=== PATIENT | female | born 1950 | race Caucasian/White ===

== ENCOUNTER 2021-09-11 07:43 | Inpatient (IN) ==
[2021-09-11] MEDS ORDERED: ONDANSETRON INJ 2 MG/ML 2 ML VIAL IV STA (08:12)
[2021-09-11] MEDS ORDERED: MoRPHine SULFATE 10 MG/ML CARP/VIAL IV STA (08:12)
--- NOTE | 2021-09-11 08:47 | Emergency Department Note ---
Impression & Plan Lumbar disc herniation with radiculopathy, Neuroforaminal stenosis of lumbar spine ED Provider Note CHIEF COMPLAINT: Left leg pain HISTORY OF PRESENT ILLNESS: Carlyn Tafoya is a 71 year old female with history of DM2, HTN, DLD and hypothyroidism who presents to the Emergency Department for ev aluation of severe, burning pains to her left lateral thigh and knee with associated left lower back pain which initially began last month but was then exacerbated and became much worse about 1 week prior. The patient denies sustaining recent falls or injuries but states that when her symptoms first began last month, she visited [facility] and had x-rays taken of her back which showed degenerative disc disease. She was prescribed methylprednisone at that time which she states helped to completely resolve her symptoms until they started back up about 1 week ago. The patient has since visited her PCP and was started on a Prednisone taper in addition to taking Mobic and Tylenol, however, her pain has become progressively worse which has made it harder for her to stand up and walk. Currently, she rates her discomfort as an 8/10 which worsens with movements and she has not been able to find a comfortable position secondary to her pain. She describes burning pains but denies specific numbness/ tingling. She does feel that her left leg is weak. She otherwise denies pain radiating into her upper back, neck or down her arms. No saddle paresthesias. She does state that she has had some bladder incontinence but no difficulties with her bowels. She otherwise denies recent fevers/chills, respiratory difficulties, chest pain, abdominal pain, nausea, vomiting, diarrhea or dysuria. The patient does state that she has had sciatica in the past but her symptoms feel different and much more severe than those episodes. The patient was scheduled to have an MRI done as an outpatient tomorrow but as her symptoms became too severe she presents to the ED for further evaluation today. REVIEW OF SYSTEMS: 10 systems were reviewed and were negative unless otherwise stated in HPI as above PHYSICAL EXAM: VITALS: Vitals are noted on the nurse's note and reviewed by myself. Hypertensive, additional vital signs stable General: Resting at the edge of the bed, appears uncomfortable but no acute dist ress HEENT: Normocephalic, atraumatic, PERRL, EOMI, mucous membranes moist, oropharynx clear Neck: No mid-line or paraspinal cervical tenderness, ROM intact without pain Resp: Good inspiratory effort on room air, lung sounds clear bilaterally CV: Regular rate and rhythm, normal S1-S2, peripheral pulses palpated Back: No specific tenderness to palpation over the midline spine or paraspinal musculature Abd: Obese, soft, non-tender MSK/neuro: Notes pain to the lateral aspect of the left distal thigh and knee but not reproducible to palpation. 4/5 strength with hip flexion and knee extension, otherwise 5/5 throughout. Sensation intact throughout. Continues with full strength and sensation throughout all other extremities Neuro: Awake, alert and oriented x 3, interacting and answering questions appropriately Differential diagnosis includes Musculoskeletal, disc herniation, fracture, cord compression, discitis, sciatica, cauda equina, infection, as well as other pathologies. EMERGENCY DEPARTMENT COURSE: Physical exam and history were performed. Nursing triage notes, EMR, and medica tion list were personally reviewed. Patient appears to have severe, burning pains to her left lateral thigh and knee with associated left lower back pain which initially began last month but was then exacerbated and became much worse about 1 week prior. Additional history described above. See physical exam as noted above. The patient was offered medications. IV access was established and she was given morphine 6 mg, Zofran 4 mg and Dilaudid 0.5 mg x 3 throughout her emergency department course. MRI of the lumbar spine was obtained and reviewed by radiologist myself as below. This did show multilevel disc disease with a large posterior disc bulge at L2-L3 with severe canal stenosis with AP diameter 5 mm and up to severe bilateral neuroforaminal stenosis. Upon reevaluation, the patient was still having significant discomfort despite receiving the above medications. I discussed the results of the above findings with her and her at bedside. I then contacted Dr. Herr of orthopedic spine. He recommended obtaining standing lumbar spine x-rays and admitting the patient for pain control, will be available for consultation once admission. I then spoke with Ellyn Corea PA-C of the [facility] hospitalist group who agreed to evaluate the patient with Dr. Perez. The patient verbalized her understanding and agreement with the treatment plan as above. The chart was completed utilizing [employer] Voice Recognition Software. Grammatical errors, random word insertions, pronoun errors, and incomplete sentences are an occasional consequence of this system due to software limitations, ambient noise, and hardware issues. Any formal questions or concerns about the content, text, or information contained within the body of this dictation should be directly addressed to the provider for clarification. Past Med/Surg History Medical History HLD (hyperlipidemia) HTN (hypertension) Hypothyroidism T2DM (type 2 diabetes mellitus) Surgical History History of x2 History of total knee replacement L 2012; R 2006 Hx of arthroscopy of left knee meniscus injury Hx of cholecystectomy Hx of dilation and curettage Hx of tonsillectomy Family History (Updated 09/11/21 @ 14:30 by Ellyn Corea PA-C) Mother Sclerosing cholangitis Father Alcohol use disorder Social History Smoking Status: Never smoker Hx Alcohol Use: No Hx Substance Use: No Preferred Language: Slovak Communication Ability: Effective marital status: Current Living Situation: Spouse current occupational status: retired Feels Safe at Home: Yes Allergies Allergies Allergy/AdvReac Type Severity Reaction Status Date / Time Sulfa (Sulfonamide Allergy Unknown RASH Verified 09/11/21 13:30 Antibiotics) Home Meds Home Medications Medication Instructions Recorded Confirmed cholecalciferol (vitamin D3) 25 25 mcg PO DAILY 09/11/21 09/11/21 mcg (1,000 unit) capsule (Vitamin D3) colesevelam 625 mg tablet (WelChol) 1,250 mg PO BID 09/11/21 09/11/21 hydrochlorothiazide 25 mg tablet 25 mg PO DAILY 09/11/21 09/11/21 levothyroxine 137 mcg tablet 137 mcg PO DAILY 09/11/21 09/11/21 meloxicam 15 mg tablet 15 mg PO DAILY 09/11/21 09/11/21 metformin 1,000 mg tablet 1,000 mg PO BIDWMEAL 09/11/21 09/11/21 omeprazole 20 mg capsule,delayed 20 mg PO DAILY 09/11/21 09/11/21 release pioglitazone 15 mg tablet 15 mg PO DAILY 09/11/21 09/11/21 pravastatin 20 mg tablet 20 mg PO HS 09/11/21 09/11/21 Results & Data (ED) Vital Signs Vital Signs - 24 hr 09/11/21 07:46 09/11/21 08:38 09/11/21 09:13 Temperature 36.7 C Temperature Source Temporal Artery Scan Pulse Rate 73 Pulse Rate [Finger] 62 63 Pulse Rhythm [Finger] Pulse Strength [Finger] Respiratory Rate 18 18 16 Respiratory Effort / Characteristics Non-Labored Spontaneous Respiratory Depth Normal Respiratory Pattern Blood Pressure 154/73 H Blood Pressure [Right Arm] 104/66 Blood Pressure Mean 100 Blood Pressure Mean [Right Arm] 78 Blood Pressure Position Sitting Blood Pressure Position [Right Arm] Sitting Pulse Oximetry 93 93 94 Oxygen Delivery Method Room Air Room Air Room Air Sepsis Recent Fever Within 48 Hours No Sepsis New/Unexplained Change in Mental Status No Sepsis Action Taken by Nursing No Action Required 09/11/21 11:00 09/11/21 13:00 Temperature Temperature Source Pulse Rate Pulse Rate [Finger] 65 75 Pulse Rhythm [Finger] Regular Pulse Strength [Finger] Normal Respiratory Rate 16 16 Respiratory Effort / Characteristics Non-Labored Respiratory Depth Normal Respiratory Pattern Regular Blood Pressure Blood Pressure [Right Arm] 135/79 Blood Pressure Mean Blood Pressure Mean [Right Arm] 97 Blood Pressure Position Blood Pressure Position [Right Arm] Lying Pulse Oximetry 94 94 Oxygen Delivery Method Room Air Room Air Sepsis Recent Fever Within 48 Hours Sepsis New/Unexplained Change in Mental Status Sepsis Action Taken by Nursing Laboratory Data Result diagrams: 09/11/21 14:15 09/11/21 14:15 Lab Results 09/11/21 Range/Units 13:30 SARS-CoV-2, RNA, NAAT NEGATIVE (NEGATIVE) Administered Medications Hydrocodone Bitart/Acetaminophen (Hydrocodone/Acetamophen 5/325mg Tab) 2 tab PO Q4H PRN PRN Reason: SEVERE Pain (7,8,9,10) Stop: 09/25/21 16:18 Last Admin: 09/11/21 16:39 Dose: 2 tab Documented By: RC Discontinued Medications Hydromorphone HCl (Hydromorphone Inj 0.5 Mg/0.5 Ml Syr) 0.5 mg IV NOW STA Stop: 09/11/21 08:52 Last Admin: 09/11/21 09:10 Dose: 0.5 mg Documented By: MG Hydromorphone HCl (Hydromorphone Inj 0.5 Mg/0.5 Ml Syr) 0.5 mg IV NOW STA Stop: 09/11/21 09:46 Last Admin: 09/11/21 09:46 Dose: 0.5 mg Documented By: [facility] [place]dromorphone HCl (Hydromorphone Inj 0.5 Mg/0.5 Ml Syr) 0.5 mg IV NOW STA Stop: 09/11/21 12:40 Last Admin: 09/11/21 12:51 Dose: 0.5 mg Documented By: CHOCO Dexamethasone 4 mg/ Syringe 1 mls @ 1 mls/min IV ONE ONE Stop: 09/11/21 16:31 Last Admin: 09/11/21 16:54 Dose: 1 mls/min Documented By: SHANDA Morphine Sulfate (Morphine Sulfate 10 Mg/Ml Carp/Vial) 6 mg IV NOW STA Stop: 09/11/21 08:13 Last Admin: 09/11/21 08:23 Dose: 6 mg Documented By: [facility] [place] Ondansetron HCl (Ondansetron Inj 2 Mg/Ml 2 Ml Vial) 4 mg IV NOW STA Stop: 09/11/21 08:13 Last Admin: 09/11/21 08:23 Dose: 4 mg Documented By: [facility] [place] Data Radiologist's Impression: Lumbar Spine MRI 09/11/21 08:12 MR lumbar spine wo con CLINICAL HISTORY: Left back and severe LLE pain TECHNIQUE: Multiplanar sequences through the lumbar spine were obtained, without intravenous contrast. Comparison: None available at the time of this dictation. FINDINGS: The alignment is anatomical. Multilevel degenerative changes are seen most prominent at L2-L3. L1-L2: Moderate posterior disc bulge is seen with mild canal stenosis. Mild bilateral neural foraminal stenosis is seen. L2-L3: There is a large posterior disc bulge with severe canal stenosis (AP diameter 5 mm) and moderate to severe bilateral neural foraminal stenosis. L3-L4: Moderate posterior disc bulge is seen with moderate to severe canal stenosis, AP diameter 6 mm. There is severe bilateral neural foraminal stenosis. L4-L5: No significant abnormality. L5-S1: Small posterior disc bulge is seen with mild canal stenosis and moderate bilateral neuroforaminal stenosis. The spinal ligaments are intact, without evidence of disruption or abnormal signal intensity. The spinal cord is normal in signal intensity and there is no evidence of cord contusion. There is no evidence of an extradural, intradural, extramedullary or intramedullary lesion. Visualized soft tissues are normal. IMPRESSION: Multilevel disc disease with a large posterior disc bulge at L2-L3. There is severe canal stenosis with AP diameter 5 mm, and up to severe bilateral neuroforaminal stenosis. ACT 112: Negative or not required by law. Electronically signed by: Evans Jeff M.D. 09/11/2021 11:06 AM Discharge Plan Visit Data Chief Complaint: Leg Injury/Pain Stated Complaint: LEFT LEG PAIN ED Provider: Brandon Calle ED Midlevel Provider: Zahida Romano Discharge Problem: Lumbar disc herniation with radiculopathy, Neuroforaminal stenosis of lumbar spine Patient Disposition: Admitted As Inpatient Discharge Instructions Interventions: ED Discharge Assessment Last Done: 09/11/21 16:19
[2021-09-11] MEDS ORDERED: HYDROmorphone INJ 0.5 MG/0.5 ML SYR IV STA ×3 (08:51→12:39)
--- NOTE | 2021-09-11 11:07 | Magnetic Resonance Report ---
MR lumbar spine wo con CLINICAL HISTORY: Left back and severe LLE pain TECHNIQUE: Multiplanar sequences through the lumbar spine were obtained, without intravenous contrast . Comparison: None available at the time of this dictation. FINDINGS: The alignment is anatomical. Multilevel degenerative changes are seen most prominent at L2-L3. L1-L2: Moderate posterior disc bulge is seen with mild canal stenosis. Mild bilateral neural foramina l stenosis is seen. L2-L3: There is a large posterior disc bulge with severe canal stenosis (AP diameter 5 mm) and modera te to severe bilateral neural foraminal stenosis. L3-L4: Moderate posterior disc bulge is seen with moderate to severe canal stenosis, AP diameter 6 mm . There is severe bilateral neural foraminal stenosis. L4-L5: No significant abnormality. L5-S1: Small posterior disc bulge is seen with mild canal stenosis and moderate bilateral neuroforami nal stenosis. The spinal ligaments are intact, without evidence of disruption or abnormal signal intensity. The spi nal cord is normal in signal intensity and there is no evidence of cord contusion. There is no eviden ce of an extradural, intradural, extramedullary or intramedullary lesion. Visualized soft tissues are normal. IMPRESSION: Multilevel disc disease with a large posterior disc bulge at L2-L3. There is severe canal stenosis wi th AP diameter 5 mm, and up to severe bilateral neuroforaminal stenosis. ACT 112: Negative or not required by law. Electronically signed by: Evans Jeff M.D. 09/11/2021 11:06 AM
[2021-09-11 14:26] LABS: Basophils # (auto) 0.03 K/uL (0-0.2); Basophils % (auto) 0.3 %; Eosinophils # (auto) 0.01 K/uL (0-0.50); Eosinophils % (auto) 0.1 %; Hematocrit (blood only) 42.2 % (34.1-44.9); Hemoglobin 13.9 g/dl (12.0-16.0); Immature Granulocytes # (auto) 0.04 K/uL (0.00-0.02); Immature Granulocytes % (auto) 0.4 %; Lymphocytes # (auto) 2.22 K/uL (1.2-3.4); Lymphocytes % (auto) 24.6 %; Mean Corpuscular Hemoglobin 31.1 pg (25.0-34.0); Mean Corpuscular Hgb Conc 32.9 g/dL (32.0-36.0); Mean Corpuscular Volume 94.4 fL (80.0-100.0); Monocytes # (auto) 0.47 K/uL (0.24-0.82); Monocytes % (auto) 5.2 %; Neutrophils # (auto) 6.26 K/uL (1.4-6.5); Neutrophils % (auto) 69.4 %; Platelet Count 175 K/uL (130-400); RDW Coefficient of Variation 14.4 % (11.5-14.5); RDW Standard Deviation 49.7 fL (36.4-46.3); Red Blood Count 4.47 M/uL (3.93-5.22); White Blood Count 9.03 K/ul (4.8-10.8)
--- NOTE | 2021-09-11 14:27 | History & Physical Report ---
Date of Service September 11, 2021 Assessment & Plan (1) Lumbar disc herniation with radiculopathy: (2) Neuroforaminal stenosis of lumbar spine: (3) Low back pain radiating down leg: (4) T2DM (type 2 diabetes mellitus): (5) HTN (hypertension): (6) HLD (hyperlipidemia): (7) Hypothyroidism: Plan This is a 71-year-old female who has significant past medical history of T2DM, HTN, HLD, hypothyroidism who presents to ED secondary to lower back pain with radiation to left thigh since end of July. MRI L Spine: IMPRESSION: Multilevel disc disease with a large posterior disc bulge at L2-L3. There is severe canal stenosis with AP diameter 5 mm, and up to severe bilateral neuroforaminal stenosis. Lumbar disc herniation with radiculopathy Bilateral neuroforaminal stenosis of lumbar spine Left-sided low back pain with radiation to left thigh, correlating with L2 and L3 nerve root admit to med/surg consult Dr. Herr Standing Lumbar Xrays per Dr. Herr Pain management with norco 1-2 tabs for mod-sev pain, iv dilaudid for breakthrough pain not controlled with norco or if unable to take po scheduled tylenol Give 4mg IV dexamethasone x 1 now hold oral mobic ICE QID PT/OT NPO after midnight in event procedure, await Dr. Herr recommendations T2DM well controlled, a1c 6.4 08/30/21 hold metformin and actos lantus/novolog per protocol HTN bp controlled continue HCTZ HLD continue statin pt also on welchol but for diarrhea from hx of cholecystectomy Hypothyroidism continue Synthroid DVT ppx: SCD/TEDS for now in event procedure or inj required Dispo: med/surg PCP: Dr. Jadyn Johnson DO FULL CODE Pt was seen and examined in collaboration with Dr. Perez, please see addenum History of Present Illness Chief Complaint: Lower back pain with radiation to L thigh since end of July. Primary Care Provider: Jadyn Johnson DO This is a 71-year-old female who has significant past medical history of T2DM, HTN, HLD, hypothyroidism who presents to ED secondary to lower back pain with radiation to left thigh since end of July. Since then in July she has noticed significant increase in left-sided lower back pain with radiation around left thigh to the level of the left knee. She describes the pain as a, "burning sensation." She denies any numbness or tingling. She was initially seen by PCP for pain who prescribed her a Medrol Dosepak. This did not improve her symptoms and the only worsened. She was then reevaluated and placed on a prednisone pack starting at 60 mg x 3 days. Currently she is on 20 mg. She again feels like this has not alleviated any of her symptoms. She has also been trying scheduled Tylenol twice a day and daily Mobic. She has some relief when lying on her left side with ice. Lying still makes pain better, sitting, standing or movement makes it worse. She has never had anything like this in the past. She did have, "sciatica," to her right leg approximately 2 years ago. She denies any loss of bowel or bladder incontinence. She denies any recent illness, fever, chills, sweats, lightheadedness, dizziness, chest pain, shortness with, cough, nausea, vomiting, abdominal pain, dysuria, increased urgency or frequency with urination, melena or hematochezia. Her appetite is otherwise been normal. Her pain has progressed to the point she is having difficulty walking and requiring assist device with walker. Patient underwent lumbar spine MRI which revealed multilevel disc disease with large posterior disc bulge at L2-L3. There is severe canal stenosis with AP diameter of 5 mm and up to severe bilateral iam roforaminal stenosis. She received IV morphine and IV Dilaudid in ED with minimal relief. Allergies Allergy/AdvReac Type Severity Reaction Status Date / Time Sulfa (Sulfonamide Allergy Unknown RASH Verified 09/11/21 13:30 Antibiotics) Home Medications Medication Instructions Recorded Confirmed Type cholecalciferol (vitamin D3) 25 25 mcg PO DAILY 09/11/21 09/11/21 History mcg (1,000 unit) capsule (Vitamin D3) colesevelam 625 mg tablet (WelChol) 1,250 mg PO BID 09/11/21 09/11/21 History hydrochlorothiazide 25 mg tablet 25 mg PO DAILY 09/11/21 09/11/21 History levothyroxine 137 mcg tablet 137 mcg PO DAILY 09/11/21 09/11/21 History meloxicam 15 mg tablet 15 mg PO DAILY 09/11/21 09/11/21 History metformin 1,000 mg tablet 1,000 mg PO BIDWMEAL 09/11/21 09/11/21 History omeprazole 20 mg capsule,delayed 20 mg PO DAILY 09/11/21 09/11/21 History release pioglitazone 15 mg tablet 15 mg PO DAILY 09/11/21 09/11/21 History pravastatin 20 mg tablet 20 mg PO HS 09/11/21 09/11/21 History Past Med/Surg History Medical History (Updated 09/11/21 @ 14:33 by Ellyn Corea PA-C) HLD (hyperlipidemia) HTN (hypertension) Hypothyroidism T2DM (type 2 diabetes mellitus) Surgical History (Updated 09/11/21 @ 14:29 by Ellyn Corea PA-C) History of x2 History of total knee replacement L 2012; R 2006 Hx of arthroscopy of left knee meniscus injury Hx of cholecystectomy Hx of dilation and curettage Hx of tonsillectomy Family History (Updated 09/11/21 @ 14:30 by Ellyn Corea PA-C) Mother Sclerosing cholangitis Father Alcohol use disorder Social History (Updated 09/11/21 @ 14:31 by Ellyn Corea PA-C) Smoking Status: Never smoker Hx Alcohol Use: No Hx Substance Use: No Preferred Language: Chinese Communication Ability: Effective marital status: Current Living Situation: Spouse current occupational status: retired Feels Safe at Home: Yes Review of Systems Review of Systems: All systems reviewed & are unremarkable except as noted in HPI & below Physical Exam Physical Exam: Constitutional: WD/WN, vitals as above, NAD, lying flat in bed, pleasant, conversing easily Head: Normocephalic, Atraumatic Eyes: PERRL, conjunctivae normal, anicteric sclerae ENMT: external ear and nose normal, oropharynx normal Neck: trachea midline, no thyromegaly normal visual inspection Respiratory: normal respiratory effort, lungs clear to auscultation, no wheeze, rales, rhonchi. Normal insp/exp effort, no accessory muscle use Cardiovascular: RRR, no murmur, no edema Vessels: no JVD or carotid bruit Chest: normal inspection of chest Abdomen: obese abd, normal bowel sounds, soft, nontender, no hepatosplenomegaly Musculoskeletal: no cyanosis or clubbing, AROM x 3 and strength 5/5, LLE not assessed due to significant pain Skin: no rashes, warm and dry normal turgor Neurologic: PERRL, EOMI, accommodation nl, no face palsy, no dysarthria CN's II-XI intact bilaterally and moves all extremities Psychiatric: A+Ox3, euthymic affect : deferred Results & Data Results & Data ([facility]) Vital Signs (Past 12 Hours) Vital Signs Temp Pulse Pulse Resp BP BP Pulse Ox 09/11/21 13:40 62 16 124/72 92 09/11/21 13:00 75 16 135/79 94 09/11/21 11:00 65 16 94 09/11/21 09:13 63 16 104/66 94 09/11/21 08:38 62 18 93 09/11/21 07:46 36.7 C 73 18 154/73 H 93 O2 Del Method 09/11/21 13:40 Room Air 09/11/21 13:00 Room Air 09/11/21 11:00 Room Air 09/11/21 09:13 Room Air 09/11/21 08:38 Room Air 09/11/21 07:46 Room Air Diagnostic Findings Lumbar Spine MRI 09/11/21 08:12 MR lumbar spine wo con CLINICAL HISTORY: Left back and severe LLE pain TECHNIQUE: Multiplanar sequences through the lumbar spine were obtained, without intravenous contrast. Comparison: None available at the time of this dictation. FINDINGS: The alignment is anatomical. Multilevel degenerative changes are seen most prominent at L2-L3. L1-L2: Moderate posterior disc bulge is seen with mild canal stenosis. Mild bilateral neural foraminal stenosis is seen. L2-L3: There is a large posterior disc bulge with severe canal stenosis (AP diameter 5 mm) and moderate to severe bilateral neural foraminal stenosis. L3-L4: Moderate posterior disc bulge is seen with moderate to severe canal stenosis, AP diameter 6 mm. There is severe bilateral neural foraminal stenosis. L4-L5: No significant abnormality. L5-S1: Small posterior disc bulge is seen with mild canal stenosis and moderate bilateral neuroforaminal stenosis. The spinal ligaments are intact, without evidence of disruption or abnormal signal intensity. The spinal cord is normal in signal intensity and there is no evidence of cord contusion. There is no evidence of an extradural, intradural, extramedullary or intramedullary lesion. Visualized soft tissues are normal. IMPRESSION: Multilevel disc disease with a large posterior disc bulge at L2-L3. There is severe canal stenosis with AP diameter 5 mm, and up to severe bilateral neuroforaminal stenosis. ACT 112: Negative or not required by law. Electronically signed by: Evans Jeff M.D. 09/11/2021 11:06 AM Medications Administered Medication List Discontinued Medications Hydromorphone HCl (Hydromorphone Inj 0.5 Mg/0.5 Ml Syr) 0.5 mg IV NOW STA Stop: 09/11/21 08:52 Last Admin: 09/11/21 09:10 Dose: 0.5 mg Documented By: [facility] [place] Hydromorphone HCl (Hydromorphone Inj 0.5 Mg/0.5 Ml Syr) 0.5 mg IV NOW STA Stop: 09/11/21 09:46 Last Admin: 09/11/21 09:46 Dose: 0.5 mg Documented By: [facility] [place] Hydromorphone HCl (Hydromorphone Inj 0.5 Mg/0.5 Ml Syr) 0.5 mg IV NOW STA Stop: 09/11/21 12:40 Last Admin: 09/11/21 12:51 Dose: 0.5 mg Documented By: AP Morphine Sulfate (Morphine Sulfate 10 Mg/Ml Carp/Vial) 6 mg IV NOW STA Stop: 09/11/21 08:13 Last Admin: 09/11/21 08:23 Dose: 6 mg Documented By: [facility] [place] Ondansetron HCl (Ondansetron Inj 2 Mg/Ml 2 Ml Vial) 4 mg IV NOW STA Stop: 09/11/21 08:13 Last Admin: 09/11/21 08:23 Dose: 4 mg Documented By: [facility] [place] COVID-19 Results Results COVID-19 Adm Lab Results: RBC 4.47 M/uL (3.93-5.22) 09/11/21 WBC 9.03 K/ul (4.8-10.8) 09/11/21 Hgb 13.9 g/dl (12.0-16.0) 09/11/21 Hct 42.2 % (34.1-44.9) 09/11/21 Plt Count 175 K/uL (130-400) 09/11/21 Neutrophils (%) (Auto) 69.4 % 09/11/21 Lymphocytes (%) (Auto) 24.6 % 09/11/21 Monocytes # (Auto) 0.47 K/uL (0.24-0.82) 09/11/21 Eosinophils # (Auto) 0.01 K/uL (0-0.50) 09/11/21 Immature Granulocyte % (Auto) 0.4 % 09/11/21 Neutrophils # (Auto) 6.26 K/uL (1.4-6.5) 09/11/21 Lymphocytes # (Auto) 2.22 K/uL (1.2-3.4) 09/11/21 Monocytes # (Auto) 0.47 K/uL (0.24-0.82) 09/11/21 Eosinophils # (Auto) 0.01 K/uL (0-0.50) 09/11/21 Basophils # (Auto) 0.03 K/uL (0-0.2) 09/11/21 Immature Granulocyte # (Auto) 0.04 K/uL (0.00-0.02) H 09/11 Na 136 mmol/L (136-145) 09/11/21 K 4.7 mmol/L (3.5-5.1) 09/11/21 Cl 99 mmol/L (98-107) 09/11/21 CO2 30 mmol/L (21-32) 09/11/21 Anion Gap 7 (3-11) 09/11/21 BUN 18 mg/dl (6-23) 09/11/21 Creatinine 0.81 mg/dl (0.6-1.2) 09/11/21 BUN/Creatinine Ratio 22.2 (10-20) H 09/11/21 Glucose Level 171 mg/dl (70-99(Fasting)) H 09/11/21 Ca 9.1 mg/dl (8.5-10.1) 09/11/21 Total Bilirubin 0.5 mg/dl (0.2-1.0) 09/11/21 AST/SGOT 14 U/L (13-39) 09/11/21 ALT/SGPT 14 U/L (7-52) 09/11/21 Alkaline Phosphatase 80 U/L (34-104) 09/11/21 Total Protein 6.8 gm/dl (6.0-8.3) 09/11/21 Albumin 3.9 gm/dl (3.4-5.0) 09/11/21 Globulin 2.9 gm/dl (2.5-4.0) 09/11/21 Albumin/Globulin Ratio 1.3 (0.9-2) 09/11/21 PTT 22.5 Seconds (21.0-31.0) 09/11/21 INR 1.0 (0.9-1.1) 09/11/21 SARS-CoV-2, RNA, NAAT NEGATIVE (NEGATIVE) 09/11/21 Code Status & VTE Plan Code Status FULL CODE VTE Prophylaxis Plan VTE Prophylaxis will be ordered: Yes Supervising Physician Co-Signing Physician Notes Patient was seen and examined independently at bedside. Chart reviewed. Case discussed with Ellyn SMITH and agree with the documentation above except as noted below. Agree with HPI and exam as documented above. In summary, this is 71 year old female who presented to the ED with intractable low back with radiculopathy. MRI reviewed. Admit for pain management and ortho evaluation. In correction to addendum above, we will have norco 1 tab for mod pain, 2 tab for sev pain with iv dilaudid prn for breakthrough pain. Discontinue scheduled APAP as norco has tylenol in it already. Rest as per the note above.
[2021-09-11 14:38] LABS: Partial Thromboplastin Ratio 0.8; Partial Thromboplastin Time 22.5 Seconds (21.0-31.0); Prothrombin Time 10.7 Seconds (9.0-12.0)
[2021-09-11 14:56] LABS: Albumin Globulin Ratio 1.3 (0.9-2); Albumin Level 3.9 gm/dl (3.4-5.0); BUN Creatinine Ratio 22.2 (10-20); Bilirubin,Total 0.5 mg/dl (0.2-1.0); Calcium 9.1 mg/dl (8.5-10.1); Creatinine Clr Calc Pharmacy 87.3 ml/min; Est GFR (African American) 85.9 ml/min; Est GFR (Non-African American) 74.1 ml/min; Globulin 2.9 gm/dl (2.5-4.0); Magnesium 1.9 mg/dl (1.7-2.4); Potassium 4.7 mmol/L (3.5-5.1); Total Protein 6.8 gm/dl (6.0-8.3)
--- NOTE | 2021-09-11 15:14 | XRay Report ---
XR lumbar spine 2-3V CLINICAL HISTORY: Lumbar DDD TECHNIQUE: 3 views of the lumbar spine were obtained. Comparison: Comparison is made to MRI lumbar spine 09/11/2021 FINDINGS: There is no evidence of an acute fracture. Multilevel degenerative changes are seen. These are most p ronounced at L2-L3. The alignment is normal. No soft tissue abnormality is seen. IMPRESSION: Degenerative changes as above without acute fracture or subluxation. ACT 112: Negative or not required by law. Electronically signed by: Evans Jeff M.D. 09/11/2021 3:12 PM
[2021-09-11] MEDS ORDERED: GLUCOSE 10 TAB/TUBE PO PRN (16:19)
[2021-09-11] MEDS ORDERED: ALUMINUM/MAGNESIUM SUSP 30 ML UDC PO PRN (16:19)
[2021-09-11] MEDS ORDERED: CARBOHYDRATES FOR HYPOGLYCEMIA PO PRN (16:19)
[2021-09-11] MEDS ORDERED: DEXTROSE 50% 50 ML SYRINGE IV PRN (16:19)
[2021-09-11] MEDS ORDERED: GLUCOSE 40% GEL 15 GM TUBE PO PRN (16:19)
[2021-09-11] MEDS ORDERED: POLYETHYLENE (MIRALAX) 17 GM PACK PO PRN (16:19)
[2021-09-11] MEDS ORDERED: ONDANSETRON INJ 2 MG/ML 2 ML VIAL IV PRN (16:19)
[2021-09-11] MEDS ORDERED: HYDROCODONE/ACETAMOPHEN 5/325MG TAB PO PRN (16:19)
[2021-09-11] MEDS ORDERED: MAGNESIUM HYDROXIDE SUSP 30 ML UDC PO PRN (16:19)
[2021-09-11] MEDS ORDERED: KETOROLAC TROMETHAMINE 15 MG/ML VIAL IV PRN (16:19)
[2021-09-11] MEDS ORDERED: ACETAMINOPHEN 325 MG TAB PO PRN (16:19)
[2021-09-11] MEDS ORDERED: HYDROmorphone INJ 0.5 MG/0.5 ML SYR IV PRN (16:19)
[2021-09-11] MEDS ORDERED: GLUCAGON FOR INJ 1 MG VIAL SQ PRN (16:19)
[2021-09-11] MEDS ORDERED: dexAMETHasone 4 MG in SYRINGE 0 ML IV ONE (16:30)
[2021-09-11] MEDS: HYDROCODONE/ACETAMOPHEN 5/325MG TAB PO PRN ×2 (16:39→20:34)
[2021-09-11] MEDS: INSULIN ASPART PER UNIT SC SCH ×2 (18:08→21:09)
[2021-09-11] MEDS: DOCUSATE SODIUM/SENNA 50/8.6MG TAB PO SCH (20:29)
[2021-09-11] MEDS: LANTUS PER UNIT CHARGE SQ SCH (21:10)
[2021-09-11] MEDS: PRAVASTATIN SOD 20 MG TAB PO SCH (21:13)
[2021-09-12] MEDS: HYDROCODONE/ACETAMOPHEN 5/325MG TAB PO PRN ×3 (00:27→08:20)
[2021-09-12] MEDS: LEVOTHYROXINE SODIUM 137 MCG TABLET PO SCH (06:16)
[2021-09-12] MEDS: LANTUS PER UNIT CHARGE SQ SCH ×2 (07:19→20:47)
[2021-09-12] MEDS: INSULIN ASPART PER UNIT SC SCH ×4 (07:19→20:46)
[2021-09-12 07:28] LABS: Basophils # (auto) 0.03 K/uL (0-0.2); Basophils % (auto) 0.3 %; Eosinophils # (auto) 0.03 K/uL (0-0.50); Eosinophils % (auto) 0.3 %; Hematocrit (blood only) 39.9 % (34.1-44.9); Hemoglobin 13.4 g/dl (12.0-16.0); Immature Granulocytes # (auto) 0.07 K/uL (0.00-0.02); Immature Granulocytes % (auto) 0.6 %; Lymphocytes % (auto) 37.5 %; Mean Corpuscular Hemoglobin 30.7 pg (25.0-34.0); Mean Corpuscular Hgb Conc 33.6 g/dL (32.0-36.0); Mean Corpuscular Volume 91.5 fL (80.0-100.0); Mean Platelet Volume 12.4 fL (9.4-12.3); Monocytes # (auto) 0.73 K/uL (0.24-0.82); Monocytes % (auto) 6.4 %; Neutrophils # (auto) 6.32 K/uL (1.4-6.5); Neutrophils % (auto) 54.9 %; Platelet Count 178 K/uL (130-400); RDW Coefficient of Variation 14.2 % (11.5-14.5); RDW Standard Deviation 48.5 fL (36.4-46.3); Red Blood Count 4.36 M/uL (3.93-5.22); White Blood Count 11.48 K/ul (4.8-10.8)
[2021-09-12 07:48] LABS: Albumin Globulin Ratio 1.3 (0.9-2); Albumin Level 3.7 gm/dl (3.4-5.0); BUN Creatinine Ratio 20.5 (10-20); Bilirubin,Total 0.5 mg/dl (0.2-1.0); Calcium 9.1 mg/dl (8.5-10.1); Creatinine Clr Calc Pharmacy 95.3 ml/min; Est GFR (African American) 97.4 ml/min; Globulin 2.8 gm/dl (2.5-4.0); Magnesium 1.9 mg/dl (1.7-2.4); Potassium 4.1 mmol/L (3.5-5.1); Total Protein 6.5 gm/dl (6.0-8.3)
[2021-09-12] MEDS: PANTOprazole 40 MG TAB PO SCH (08:21)
[2021-09-12] MEDS: CHOLECALCIFEROL 1,000 UNITS 25 MCG TAB PO SCH (08:21)
[2021-09-12] MEDS: hydroCHLOROthiazide 25 MG TAB PO SCH (08:22)
--- NOTE | 2021-09-12 08:32 | Orthopedic Consultation ---
Date of Consultation September 12, 2021 Assessment & Plan (1) Lumbar disc herniation with radiculopathy: MRI lumbar spine available for review including x-rays. Review of the scans demonstrates significant spinal stenosis most notable at L2-L3 L3-L4. I do believe there is a small far extraforaminal disc herniation at L3-L4 on the left. This would be concordant with L3 radiculopathy. I discussed with her treatment plan. She would like to consider injections. This is reasonable. Hopefully this disc will heal on its own. Ultimately if she fails to improve she would require surgical intervention. She understands agrees with this plan. History of Present Illness Reason for Consultation: Left leg pain Attending Physician: Gladys Erickson, DO History of Present Illness This is a very pleasant 71-year-old female who presents with severe left anterior thigh pain beginning approximately 4 weeks ago. She denies any specific trauma fall or event. The right lower extremities asymptomatic. She describes pain a little bit in the buttock but mostly along the left anterior thigh to the knee. It does not extend below the knee. She notes strength deficit prickly in the quadriceps and breakaway weakness. Allergies Allergy/AdvReac Type Severity Reaction Status Date / Time Sulfa (Sulfonamide Allergy Unknown RASH Verified 09/11/21 13:30 Antibiotics) Home Medications Medication Instructions Recorded Confirmed Type cholecalciferol (vitamin D3) 25 25 mcg PO DAILY 09/11/21 09/11/21 History mcg (1,000 unit) capsule (Vitamin D3) colesevelam 625 mg tablet (WelChol) 1,250 mg PO BID 09/11/21 09/11/21 History hydrochlorothiazide 25 mg tablet 25 mg PO DAILY 09/11/21 09/11/21 History levothyroxine 137 mcg tablet 137 mcg PO DAILY 09/11/21 09/11/21 History meloxicam 15 mg tablet 15 mg PO DAILY 09/11/21 09/11/21 History metformin 1,000 mg tablet 1,000 mg PO BIDWMEAL 09/11/21 09/11/21 History omeprazole 20 mg capsule,delayed 20 mg PO DAILY 09/11/21 09/11/21 History release pioglitazone 15 mg tablet 15 mg PO DAILY 09/11/21 09/11/21 History pravastatin 20 mg tablet 20 mg PO HS 09/11/21 09/11/21 History Patient History Medical History HLD (hyperlipidemia) HTN (hypertension) Hypothyroidism T2DM (type 2 diabetes mellitus) Surgical History History of x2 History of total knee replacement L 2013; R 2006 Hx of arthroscopy of left knee meniscus injury Hx of cholecystectomy Hx of dilation and curettage Hx of tonsillectomy Family History (Updated 09/11/21 @ 14:30 by Ellyn Corea PA-C) Mother Sclerosing cholangitis Father Alcohol use disorder Social History Smoking Status: Never smoker Second Hand Exposure: No; Do You Dip or Chew Tobacco: No; Hx Alcohol Use: No Hx Substance Use: No Preferred Language: Irish Communication Ability: Effective 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 Sensory appears to be symmetric and intact. There is 4-/5 left quadriceps compared to 5 5 on the right. Plantar flexion dorsiflexion symmetric 5 5 bilaterally. Deep tendon reflexes minimal Results & Data ([facility]) Vital Signs (Past 12 Hours) Vital Signs Temp Pulse Pulse Resp BP Pulse Ox O2 Del Method 09/12/21 07:44 36.6 C 61 16 117/77 93 Room Air 09/11/21 22:35 36.7 C 62 18 137/74 92 Room Air
--- NOTE | 2021-09-12 12:11 | Pain Management Consultation ---
Date of Consultation September 12, 2021 Assessment & Plan (1) Low back pain radiating down leg: (2) Lumbar disc herniation with radiculopathy: Plan 1. We have discussed pursuing a left L2-3 transforaminal epidural steroid injection outpatient which we could accommodate tomorrow morning. I called her afterwards to discuss pre-procedural instructions and after more thought she is not comfortable which being discharged to home and would like to discuss surgical options again with Dr. Herr. I will hold on plans for the lumbar epidural injection for now. I did resume her regular diet since there are no plans for procedures/surgery today. 2. I have initiated the patient on Gabapentin 300mg twice daily to help alleviate the radicular pain in the left leg. 3. She will continue Hydrocodone for pain relief. 4. I will review charting tomorrow and return for follow up if necessary. Thank you for the consultation. History of Present Illness Reason for Consultation: Intractable back pain Attending Physician: Gladys Erickson DO History of Present Illness Mrs. Tafoya is a 71 year old female that has been admitted to the [facility] with intractable lumbar pain. Patient states the pain started approximately 1 month ago and has worsened. She has been seeking treatment for this on an outpatient basis. Medrol Dosepak did provide pain relief while she was on the medication and then the pain returned. Prednisone was not effective. Tylenol and meloxicam has been provided some pain relief. Patient describes an intermittent burning along the left thigh in an L3 distribution to the knee. Patient describes approximately 25% axial low back pain and 75% radicular pain. Pain is aggravated with standing and walking and diminished with sitting and lying supine. Pain is rated 5/10 at its best and 9/10 at its worst. She does report significant limitation to performing her daily activities due to this pain. She has been able to use a walker and go from her bed to the bathroom. She does feel like the left leg is slightly weaker than the right. Patient does report some chronic bladder incontinence. No bowel incontinence, saddle anesthesia, foot drop, falls. Case discussed with Dr. Elin Velazquez Allergies Allergy/AdvReac Type Severity Reaction Status Date / Time Sulfa (Sulfonamide Allergy Unknown RASH Verified 09/11/21 13:30 Antibiotics) Home Medications Medication Instructions Recorded Confirmed Type cholecalciferol (vitamin D3) 25 25 mcg PO DAILY 09/11/21 09/11/21 History mcg (1,000 unit) capsule (Vitamin D3) colesevelam 625 mg tablet (WelChol) 1,250 mg PO BID 09/11/21 09/11/21 History hydrochlorothiazide 25 mg tablet 25 mg PO DAILY 09/11/21 09/11/21 History levothyroxine 137 mcg tablet 137 mcg PO DAILY 09/11/21 09/11/21 History meloxicam 15 mg tablet 15 mg PO DAILY 09/11/21 09/11/21 History metformin 1,000 mg tablet 1,000 mg PO BIDWMEAL 09/11/21 09/11/21 History omeprazole 20 mg capsule,delayed 20 mg PO DAILY 09/11/21 09/11/21 History release pioglitazone 15 mg tablet 15 mg PO DAILY 09/11/21 09/11/21 History pravastatin 20 mg tablet 20 mg PO HS 09/11/21 09/11/21 History Patient History Medical History HLD (hyperlipidemia) HTN (hypertension) Hypothyroidism T2DM (type 2 diabetes mellitus) Surgical History History of x2 History of total knee replacement L 2012; R 2006 Hx of arthroscopy of left knee meniscus injury Hx of cholecystectomy Hx of dilation and curettage Hx of tonsillectomy Family History (Updated 09/11/21 @ 14:30 by Ellyn Corea PA-C) Mother Sclerosing cholangitis Father Alcohol use disorder Social History Smoking Status: Never smoker Second Hand Exposure: No; Hx Alcohol Use: No Hx Substance Use: No Preferred Language: Vietnamese Communication Ability: Effective Monitor Tech Required: No Beliefs That Will Affect Care: None marital status: Current Living Situation: Spouse current occupational status: retired Feels Safe at Home: Yes Assistive Devices: None Physical Exam Physical Exam: GENERAL: This is a morbidly obese 71 year old female laying supine in the hospital bed. HEAD/FACE: Normocephalic and atraumatic. EYES: No drainage or conjunctival injection. ENT: Nose without bleeding or discharge. Oral mucosa slightly dry.. NECK: Full ROM without apparent pain. No swelling or masses noted. RESPIRATORY: Patient with unlabored breathing. No signs of respiratory distress. CHEST/AXILLA: Chest movement symmetrical. No deformities noted. ABDOMEN/GI: No distension BACK: Able to roll on side with little difficulty. There is tenderness along the left mid lumbar region. No myofascial pain. No SI joint tenderness. SKIN: [place], warm and dry. No rash noted. MS/EXTREMITY: 5/5 strength of the right lower extremity. The left lower extremity there is 4/5 strength with left hip flexion, otherwise 5/5 strength throughout. Negative straight leg raise. NEURO: Alert and appears oriented. Speech is fluent. Cranial Nerves are grossly intact. PSYCH: Alert, pleasant, affect is calm Results ([facility]) Diagnostic Review MRI Findings: MR lumbar spine wo con CLINICAL HISTORY: Left back and severe LLE pain TECHNIQUE: Multiplanar sequences through the lumbar spine were obtained, without intravenous contrast. Comparison: None available at the time of this dictation. FINDINGS: The alignment is anatomical. Multilevel degenerative changes are seen most prominent at L2-L3. L1-L2: Moderate posterior disc bulge is seen with mild canal stenosis. Mild bilateral neural foraminal stenosis is seen. L2-L3: There is a large posterior disc bulge with severe canal stenosis (AP diameter 5 mm) and moderate to severe bilateral neural foraminal stenosis. L3-L4: Moderate posterior disc bulge is seen with moderate to severe canal stenosis, AP diameter 6 mm. There is severe bilateral neural foraminal stenosis. L4-L5: No significant abnormality. L5-S1: Small posterior disc bulge is seen with mild canal stenosis and moderate bilateral neuroforaminal stenosis. The spinal ligaments are intact, without evidence of disruption or abnormal signal intensity. The spinal cord is normal in signal intensity and there is no evidence of cord contusion. There is no evidence of an extradural, intradural, extramedullary or intramedullary lesion. Visualized soft tissues are normal. IMPRESSION: Multilevel disc disease with a large posterior disc bulge at L2-L3. There is severe canal stenosis with AP diameter 5 mm, and up to severe bilateral neuroforaminal stenosis. ACT 112: Negative or not required by law. Electronically signed by: Evans Jeff M.D. 09/11/2021 11:06 AM Radiology Findings: XR lumbar spine 2-3V CLINICAL HISTORY: Lumbar DDD TECHNIQUE: 3 views of the lumbar spine were obtained. Comparison: Comparison is made to MRI lumbar spine 09/11/2021 FINDINGS: There is no evidence of an acute fracture. Multilevel degenerative changes are seen. These are most pronounced at L2-L3. The alignment is normal. No soft tissue abnormality is seen. IMPRESSION: Degenerative changes as above without acute fracture or subluxation. ACT 112: Negative or not required by law. Electronically signed by: Evans Jeff M.D. 09/11/2021 3:12 PM
[2021-09-12] MEDS: GABAPENTIN 300 MG CAP PO SCH ×2 (13:20→20:52)
[2021-09-12] MEDS: oxyCODONE HCL IR 5 MG TAB (IMMEDIATE RELEASE) PO PRN (13:21)
[2021-09-12] MEDS ORDERED: ACETAMINOPHEN 325 MG TAB PO PRN (16:00)
[2021-09-12] MEDS: diazePAM 2 MG TABLET PO SCH (18:54)
--- NOTE | 2021-09-12 20:42 | Hospitalist Progress Note ---
Date of Service September 12, 2021 Assessment & Plan (1) Lumbar disc herniation with radiculopathy: (2) Neuroforaminal stenosis of lumbar spine: (3) Low back pain radiating down leg: (4) T2DM (type 2 diabetes mellitus): (5) HTN (hypertension): (6) HLD (hyperlipidemia): (7) Hypothyroidism: Plan This is a 71-year-old female who has significant past medical history of T2DM, HTN, HLD, hypothyroidism who presents to ED secondary to lower back pain with radiation to left thigh since end of July. MRI L Spine: IMPRESSION: Multilevel disc disease with a large posterior disc bulge at L2-L3. There is severe canal stenosis with AP diameter 5 mm, and up to severe bilateral neuroforaminal stenosis. Lumbar disc herniation with radiculopathy Bilateral neuroforaminal stenosis of lumbar spine Left-sided low back pain with radiation to left thigh, correlating with L2 and L3 nerve root no surgical intervention yet but may be considered if no improvement with conservative treatments-per ortho spine (Dr. Herr) Pain improved but not well controlled. Gabapentin and SUMI per pain management Patient unwilling to be discharged for outpatient SUMI as offered. For now trial scheduled Toradol with some valium for additional muscle relaxing effect. Hold narcotics while giving scheduled valium. Will not pursue additional steroids at this time. Mild leukocytosis noted likely a result of recent prednisone. ICE QID PT/OT T2DM chronic, well controlled, a1c 6.4 08/30/21 hold metformin and actos lantus/novolog per protocol while inpatient HTN chronic, at goal. continue HCTZ per home regimen. HLD continue statin pt also on welchol-- but is for diarrhea from hx of cholecystectomy Hypothyroidism chronic, stable. continue Synthroid DVT ppx: Lovenox Dispo: med/surg PCP: Dr. Jadyn Johnson DO FULL CODE Camron Erickson DO [facility] Hospitalist Admission and Anticipated Discharge Date Admission Date: September 12, 2021 Subjective 71-year-old female presents with acute on chronic intractable lumbar pain. She feels this was triggered by standing for prolonged time in anglican 1 morning. She has been on a prednisone taper over the last few days with no improvement. Tylenol and meloxicam have provided some relief but she was unable to walk prompting her to come into the hospital. She was seen by orthopedic spine today who would like to try some more conservative therapies, however, open to surgical intervention if she fails to improve. Pain management was also consulted and suggested a transforaminal epidural steroid injection which cannot be done as an inpatient. They also init iated gabapentin 300 twice daily to alleviate the radicular pain in the left leg. Hydrocodone/APAP was switched to oxycodone as the patient was receiving too much Tylenol in 24-hours. Although the oxycodone is helpful she was open to trying a new alternative. Toradol was helpful this evening but took approximately an hour and a half to kick in. She is not on Mobic consistently. Although she received 1 dose of Decadron in the ER yesterday we decided to try some of the initial therapies first prior to additional steroids. She is uncomfortable going home at this point and would like to explore additional opportunities for receiving epidural steroid injection inpatient. Interventional radiology may be able to accommodate this request if pain management does not have the opportunity in their schedule. Overall she does feel improved Review of Systems Review of Systems: All systems reviewed negative except as indicated above. Physical Exam Physical Exam: CONSTITUTIONAL: WNWD, vitals as above, generally well- appearing, NAD EYES: normal conjunctivae, no scleral icterus ENT: external ear and nose normal, MMM NECK: trachea midline RESPIRATORY: clear to auscultation bilaterally, no crackles, rales or wheezes, normal respiratory effort CARDIOVASCULAR: regular rate and rhythm, S1 and 2 heard without murmurs, gallops or rubs, no JVD, no peripheral edema CHEST: inspection of chest was normal GASTROINTESTINAL: soft, nontender, ND, no guarding MUSCULOSKELETAL: strength 5/5 throughout lower extremities, head is normocephalic and atraumatic, no TTP in paravertebral lumbar spine. Some glut eal TTP on the left--limited exam. SKIN: warm and dry NEUROLOGIC: patellar DTRs 2+ bilat. CN 2-12 grossly intact, no sensory deficit, normal cognition, normal speech, no tremor, gait was not assessed. PSYCHIATRIC: alert cooperative and oriented to person, place and time. Euthymic mood, makes good eye contact, language grossly intact, recent and remote memory grossly intact. Results & Data Results & Data ([facility]) Vital Signs (Past 12 Hours) Vital Signs Temp Pulse Resp BP Pulse Ox O2 Del Method 09/12/21 15:08 36.6 C 61 16 105/68 94 Room Air Laboratory Results Short CBC 09/12/21 Range/Units 06:51 WBC 11.48 H (4.8-10.8) K/ul Hgb 13.4 (12.0-16.0) g/dl Hct 39.9 (34.1-44.9) % Plt Count 178 (130-400) K/uL BMP 09/12/21 06:51 Sodium 136 Potassium 4.1 Chloride 98 Carbon Dioxide 32 BUN 15 Creatinine 0.73 Glucose 112 H Calcium 9.1 Liver Function 09/12/21 Range/Units 06:51 Total Bilirubin 0.5 (0.2-1.0) mg/dl AST 13 (13-39) U/L ALT 11 (7-52) U/L Alkaline Phosphatase 69 (34-104) U/L Albumin 3.7 (3.4-5.0) gm/dl Medications Administered Current Inpatient Medications Acetaminophen (Acetaminophen 325 Mg Tab) 650 mg PO Q4H PRN PRN Reason: mild to moderate pain Stop: 10/12/21 15:59 Al Hydrox/Mg Hydrox/Simethicone (Aluminum/Magnesium Susp 30 Ml Udc) 30 ml PO Q6H PRN PRN Reason: Dyspepsia Stop: 10/11/21 16:18 Dextrose (Dextrose 50% 50 Ml Syringe) 25 - 50 ml IV UD PRN; Protocol PRN Reason: Hypoglycemia Protocol Stop: 10/11/21 16:18 Diazepam (Diazepam 2 Mg Tablet) 2 mg PO TID [facility] Stop: 10/12/21 18:29 Last Admin: 09/12/21 18:54 Dose: 2 mg Gabapentin (Gabapentin 300 Mg Cap) 300 mg PO BID FERNY Stop: 10/12/21 12:29 Last Admin: 09/12/21 13:20 Dose: 300 mg Glucagon (Glucagon For Inj 1 Mg Vial) 1 mg SQ UD PRN; Protocol PRN Reason: Hypoglycemia Protocol Stop: 10/11/21 16:18 Glucose (Glucose 40% Gel 15 Gm Tube) 15 - 30 gm PO UD PRN; Protocol PRN Reason: Hypoglycemia Protocol Stop: 10/11/21 16:18 Glucose (Glucose 10 Tab/Tube) 4 - 8 tab PO UD PRN; Protocol PRN Reason: Hypoglycemia Treatment Stop: 10/11/21 16:18 Hydrochlorothiazide (Hydrochlorothiazide 25 Mg Tab) 25 mg PO DAILY [facility] Stop: 10/12/21 08:59 Last Admin: 09/12/21 08:22 Dose: 25 mg Hydromorphone HCl (Hydromorphone Inj 0.5 Mg/0.5 Ml Syr) 0.5 mg IV Q3H PRN PRN Reason: Breakthrough Pain Stop: 09/25/21 16:18 Insulin Aspart (Insulin Aspart Per Unit) 0 units SC ACHS [facility] Stop: 10/11/21 16:29 Last Admin: 09/12/21 20:46 Dose: Not Given Insulin Glargine (Lantus Per Unit Charge) 0 - 10 units SQ BID [facility] Stop: 10/11/21 20:59 Last Admin: 09/12/21 20:47 Dose: Not Given Ketorolac Tromethamine (Ketorolac Tromethamine 15 Mg/Ml Vial) 15 mg IV Q8H [facility] Stop: 09/17/21 14:59 Levothyroxine Sodium (Levothyroxine Sodium 137 Mcg Tablet) 137 mcg PO DAILYBB [facility] Stop: 10/12/21 06:29 Last Admin: 09/12/21 06:16 Dose: 137 mcg Magnesium Hydroxide (Magnesium Hydroxide Susp 30 Ml Udc) 30 ml PO Q6H PRN PRN Reason: Constipation Stop: 10/11/21 16:18 Miscellaneous (Carbohydrates For Hypoglycemia ) 15 - 30 gm PO UD PRN PRN Reason: Hypoglycemia Protocol Stop: 10/11/21 16:18 Miscellaneous (*Colesevelam*Order Awaiting Action) 1 each N/A QS [facility] Stop: 10/11/21 16:29 Last Admin: 09/12/21 17:06 Dose: Not Given Ondansetron HCl (Ondansetron Inj 2 Mg/Ml 2 Ml Vial) 4 mg IV Q6H PRN PRN Reason: Nausea Stop: 10/11/21 16:18 Oxycodone HCl (Oxycodone Hcl Ir 5 Mg Tab (Immediate Release)) 5 mg PO Q6H PRN PRN Reason: severe pain (7-10) Stop: 09/26/21 13:11 Last Admin: 09/12/21 13:21 Dose: 5 mg Pantoprazole Sodium (Pantoprazole 40 Mg Tab) 40 mg PO DAILY [facility]; Protocol Stop: 10/12/21 08:59 Last Admin: 09/12/21 08:21 Dose: 40 mg Polyethylene Glycol (Polyethylene (Miralax) 17 Gm Pack) 17 gm PO DAILY PRN PRN Reason: Constipation Stop: 10/11/21 16:18 Pravastatin Sodium (Pravastatin Sod 20 Mg Tab) 20 mg PO HS [facility]ERNY Stop: 10/11/21 20:59 Last Admin: 09/11/21 21:13 Dose: 20 mg Senna/Docusate Sodium (Docusate Sodium/Senna 50/8.6mg Tab) 1 tab PO HS FERNY Stop: 10/11/21 20:59 Last Admin: 09/11/21 20:29 Dose: Not Given Vitamin D (Cholecalciferol 1,000 Units 25 Mcg Tab) 1,000 units PO DAILY [facility] Stop: 10/12/21 08:59 Last Admin: 09/12/21 08:21 Dose: 1,000 units
[2021-09-12] MEDS: PRAVASTATIN SOD 20 MG TAB PO SCH (20:52)
[2021-09-12] MEDS: DOCUSATE SODIUM/SENNA 50/8.6MG TAB PO SCH (20:52)
[2021-09-12] MEDS: KETOROLAC TROMETHAMINE 15 MG/ML VIAL IV SCH (22:09)
[2021-09-13] MEDS: LEVOTHYROXINE SODIUM 137 MCG TABLET PO SCH (05:59)
[2021-09-13] MEDS: KETOROLAC TROMETHAMINE 15 MG/ML VIAL IV SCH (06:00)
[2021-09-13] MEDS: INSULIN ASPART PER UNIT SC SCH ×4 (08:41→20:54)
[2021-09-13] MEDS: LANTUS PER UNIT CHARGE SQ SCH ×2 (08:43→20:54)
[2021-09-13] MEDS: CHOLECALCIFEROL 1,000 UNITS 25 MCG TAB PO SCH (08:48)
[2021-09-13] MEDS: COLESEVELAM HCL PO SCH ×2 (08:48→18:01)
[2021-09-13] MEDS: diazePAM 2 MG TABLET PO SCH ×3 (08:49→20:52)
[2021-09-13] MEDS: GABAPENTIN 300 MG CAP PO SCH ×2 (08:49→20:52)
[2021-09-13] MEDS: PANTOprazole 40 MG TAB PO SCH (08:49)
[2021-09-13] MEDS: hydroCHLOROthiazide 25 MG TAB PO SCH (08:49)
[2021-09-13] MEDS ORDERED: ENOXAPARIN INJ 40 MG/0.4 ML SYR SQ SCH (09:00)
[2021-09-13] MEDS: oxyCODONE HCL IR 5 MG TAB (IMMEDIATE RELEASE) PO PRN ×3 (10:58→23:33)
--- NOTE | 2021-09-13 11:48 | Orthopedic Progress Note ---
Date of Service September 13, 2021 Assessment & Plan (1) Lumbar disc herniation with radiculopathy: Plan: Assessment lumbar spinal stenosis with disc herniation L2-L3 and a far lateral extraforaminal disc at L3-L4 on the left. Patient is not responding to medications and rest. She would like to see surgical invention in light of her progressive neurologic decline with gross quad deficit is reasonable to undergo urgent decompression. It would require aggressive facetectomies to adequately decompress the canal as well as access to extraforaminal disc. This would create iatrogenic instability subsequently requiring fusion. We will make her n.p.o. after midnight we will plan for surgery in the a.m. Admission and Anticipated Discharge Date Admission Date: September 12, 2021 Subjective Patient continues to have severe left leg pain. She was unable to tolerate sitting in a chair for more than 5 minutes without excruciating pain. She con tinues to note weakness and ambulating with her walker. Pain medications are no longer providing much relief. Physical Exam Physical Exam: On exam patient is in bed at this time. She exhibits reasonable plantar flexion dorsiflexion with a 4-/5 left quadricep compared to 5 5 on the right. There is marked sensory deficits to the left. D10 reflexes absent. Results & Data ([facility]) Vital Signs (Past 12 Hours) Vital Signs Temp Pulse Resp BP Pulse Ox O2 Del Method 09/13/21 07:34 36.7 C 59 L 16 119/79 94 Room Air
--- NOTE | 2021-09-13 15:27 | Anesthesiology Consultation ---
Date of Service September 13, 2021 Assessment & Plan (1) Encounter for pre-operative examination: Chart Review Chart Review: Acceptable Risk for Surgery and Patient NOT seen in Pre Admission Testing Consults Requested none History Surgery Operation Date: 09/14/21 09:15 Proposed Procedures p L2-L3 L3-L4 Decompression and Fusion - Timothy Herr DO Height/Weight Height: 5 ft 6 in Weight: 118.5 kg Allergies Allergy/AdvReac Type Severity Reaction Status Date / Time Sulfa (Sulfonamide Allergy Unknown RASH Verified 09/11/21 13:30 Antibiotics) Medications Home Medications Medication Instructions Recorded Confirmed Last Taken cholecalciferol (vitamin D3) 25 25 mcg PO DAILY 09/11/21 09/11/21 Unknown mcg (1,000 unit) capsule (Vitamin D3) colesevelam 625 mg tablet (WelChol) 1,250 mg PO BID 09/11/21 09/11/21 Unknown hydrochlorothiazide 25 mg tablet 25 mg PO DAILY 09/11/21 09/11/21 Unknown levothyroxine 137 mcg tablet 137 mcg PO DAILY 09/11/21 09/11/21 Unknown meloxicam 15 mg tablet 15 mg PO DAILY 09/11/21 09/11/21 Unknown metformin 1,000 mg tablet 1,000 mg PO BIDWMEAL 09/11/21 09/11/21 Unknown omeprazole 20 mg capsule,delayed 20 mg PO DAILY 09/11/21 09/11/21 Unknown release pioglitazone 15 mg tablet 15 mg PO DAILY 09/11/21 09/11/21 Unknown pravastatin 20 mg tablet 20 mg PO HS 09/11/21 09/11/21 Unknown Active Medications Generic Name Dose Route Start Last Admin Trade Name Ashley PRN Reason Stop Dose Admin Colesevelam HCl 2 each 09/13/21 08:00 09/13/21 08:48 Colesevelam Hcl PO 10/13/21 07:59 2 each BIDM FERNY Administration Diazepam 2 mg 09/12/21 18:30 09/13/21 13:12 Diazepam 2 Mg Tablet PO 10/12/21 18:29 2 mg TID FERNY Administration Enoxaparin Sodium 40 mg 09/13/21 09:00 09/13/21 08:49 Enoxaparin Inj 40 Mg/0.4 Ml Syr SQ 10/13/21 08:59 40 mg QAM FERNY Administration Gabapentin 300 mg 09/12/21 12:30 07/20/22 08:49 Gabapentin 300 Mg Cap PO 10/12/21 12:29 300 mg BID FERNY Administration Hydrochlorothiazide 25 mg 09/12/21 09:00 09/13/21 08:49 Hydrochlorothiazide 25 Mg Tab PO 10/12/21 08:59 25 mg DAILY FERNY Administration Insulin Aspart 0 units 09/11/21 16:30 09/13/21 12:41 Insulin Aspart Per Unit SC 10/11/21 16:29 Not Given ACHS FERNY Insulin Glargine 0 - 10 units 09/11/21 21:00 09/13/21 08:43 Lantus Per Unit Charge SQ 10/11/21 20:59 Not Given BID FERNY Levothyroxine Sodium 137 mcg 09/12/21 06:30 09/13/21 05:59 Levothyroxine Sodium 137 Mcg Tablet PO 10/12/21 06:29 137 mcg DAILYBB FERNY Administration Oxycodone HCl 5 mg 09/12/21 13:12 09/13/21 10:58 Oxycodone Hcl Ir 5 Mg Tab (Immediate Release) PO 09/26/21 13:11 5 mg Q6H PRN Administration severe pain (7-10) Pantoprazole Sodium 40 mg 09/12/21 09:00 09/13/21 08:49 Pantoprazole 40 Mg Tab PO 10/12/21 08:59 40 mg DAILY FERNY Administration Protocol Pravastatin Sodium 20 mg 09/11/21 21:00 09/12/21 20:52 Pravastatin Sod 20 Mg Tab PO 10/11/21 20:59 20 mg HS FERNY Administration Senna/Docusate Sodium 1 tab 09/11/21 21:00 09/12/21 20:52 Docusate Sodium/Senna 50/8.6mg Tab PO 10/11/21 20:59 1 tab HS FERNY Administration Vitamin D 1,000 units 09/12/21 09:00 09/13/21 08:48 Cholecalciferol 1,000 Units 25 Mcg Tab PO 10/12/21 08:59 1,000 units DAILY FERNY Administration Past Medical History Medical History HLD (hyperlipidemia) HTN (hypertension) Hypothyroidism Morbid obesity Neuroforaminal stenosis of lumbar spine T2DM (type 2 diabetes mellitus) Past Family History Family History Mother Sclerosing cholangitis Father Alcohol use disorder Past Surgical History Surgical History History of x2 History of total knee replacement L 2012; R 2006 Hx of arthroscopy of left knee meniscus injury Hx of cholecystectomy Hx of dilation and curettage Hx of tonsillectomy Social History Smoking Status: Never smoker Do You Dip or Chew Tobacco: No Hx Alcohol Use: No Hx Substance Use: No substance use type: does not use Physical Exam Vital Signs Last Vital Signs Temp 36.4 C L 09/13/21 15:24 Pulse 72 09/13/21 15:24 Resp 16 09/13/21 15:24 BP 110/68 09/13/21 15:24 Pulse Ox 95 09/13/21 15:24 O2 Del Method 09/13/21 15:24 Testing Laboratory Results 09/12/21 06:51 09/12/21 06:51 PT 10.7 Seconds (9.0-12.0) 09/11/21 14:15 INR 1.0 (0.9-1.1) 09/11/21 14:15 APTT 22.5 Seconds (21.0-31.0) 09/11/21 14:15 09/13/21 09/13/21 12:07 08:06 POC Glucose 110 H 109 H Electrocardiogram Date: 09/13/21 Findings: + NSR @ (80) low voltage QRS
--- NOTE | 2021-09-13 16:56 | Electrocardiogram Report ---
Test Reason : Blood Pressure : / mmHG Vent. Rate : 080 BPM Atrial Rate : 080 BPM P-R Int : 164 ms QRS Dur : 086 ms QT Int : 362 ms P-R-T Axes : 001 063 023 degrees QTc Int : 417 ms Normal sinus rhythm Low voltage QRS Borderline ECG When compared with ECG of 25-AUG-2013 13:52, No significant change was found Confirmed by Delio Kiser ([id number]) on 09/13/2021 4:55:32 PM Referred By: REFERRED SELF Confirmed By:Delio Kiser
--- NOTE | 2021-09-13 17:04 | Hospitalist Progress Note ---
Date of Service September 13, 2021 Assessment & Plan (1) Lumbar disc herniation with radiculopathy: (2) Neuroforaminal stenosis of lumbar spine: (3) Low back pain radiating down leg: (4) T2DM (type 2 diabetes mellitus): (5) HTN (hypertension): (6) HLD (hyperlipidemia): (7) Hypothyroidism: Plan This is a 71-year-old female who has significant past medical history of T2DM, HTN, HLD, hypothyroidism who presents to ED secondary to lower back pain with radiation to left thigh since end of July. MRI L Spine: IMPRESSION: Multilevel disc disease with a large posterior disc bulge at L2-L3. There is severe canal stenosis with AP diameter 5 mm, and up to severe bilateral neuroforaminal stenosis. Lumbar disc herniation with radiculopathy Bilateral neuroforaminal stenosis of lumbar spine Left-sided low back pain with radiation to left thigh, correlating with L2 and L3 nerve root no surgical intervention yet but may be considered if no improvement with conservative treatments-per ortho spine (Dr. Herr) Pain improved but not well controlled. Gabapentin and SUMI per pain management Patient unwilling to be discharged for outpatient SUMI as offered. For now trial scheduled Toradol with some valium for additional muscle relaxing effect. Hold narcotics while giving scheduled valium. Will not pursue additional steroids at this time. Mild leukocytosis noted likely a result of recent prednisone. ICE QID - reevaluated by orthopedic surgery who offered her laminectomy and possible fusion tomorrow 09/14/2021 - NPO midnight PT/OT T2DM chronic, well controlled, a1c 6.4 08/30/21 hold metformin and actos lantus/novolog per protocol while inpatient HTN chronic, at goal. continue HCTZ per home regimen. HLD continue statin pt also on welchol-- but is for diarrhea from hx of cholecystectomy Hypothyroidism chronic, stable. continue Synthroid DVT ppx: Lovenox - hold in AM for OR 09/14/2021 Dispo: med/surg PCP: Dr. Jadyn Johnson, DO FULL CODE Axel Toledo MD [facility] Admission and Anticipated Discharge Date Admission Date: September 12, 2021 Subjective Patient admitted for intractable back pain related to disc herniation and lumbar spinal stenosis. Has been trying multimodal pain management with benzos, opioids, NSAIDs and rest without much releif. Option declined by patient for discharge and follow up with pain management for epidural steroid injections. Seen again by orthopedic surgery who is offering decompression surgery with likely need for fusion due to degree of instability that will result from surgery. Patient continues to have severe left leg pain. She was unable to tolerate sitting in a chair for more than 5 minutes without excruciating pain. She continues to note weakness and ambulating with her walker. Pain medications are no longer providing much relief. She did have some relief with combination valium and toradol overnight but pain quickly resumed this morning upon sitting. Review of Systems Review of Systems: All systems reviewed & are unremarkable except as noted in Subjective Physical Exam Physical Exam: CONSTITUTIONAL: WNWD, vitals as above, generally well- appearing, NAD EYES: normal conjunctivae, no scleral icterus ENT: external ear and nose normal, MMM NECK: trachea midline RESPIRATORY: clear to auscultation bilaterally, no crackles, rales or wheezes, normal respiratory effort CARDIOVASCULAR: regular rate and rhythm, S1 and 2 heard without murmurs, gallops or rubs, no JVD, no peripheral edema CHEST: inspection of chest was normal GASTROINTESTINAL: soft, nontender, ND, no guarding MUSCULOSKELETAL: strength 5/5 throughout lower extremities, head is normocephalic and atraumatic, no TTP in paravertebral lumbar spine. Some gluteal TTP on the left--limited exam. SKIN: warm and dry NEUROLOGIC: patellar DTRs 2+ bilat. CN 2-12 grossly intact, no sensory deficit, normal cognition, normal speech, no tremor, gait was not assessed. PSYCHIATRIC: alert cooperative and oriented to person, place and time. Euthymic mood, makes good eye contact, language grossly intact, recent and remote memory grossly intact. Results & Data Results & Data ([facility]) Vital Signs (Past 12 Hours) Vital Signs Temp Pulse Resp BP Pulse Ox O2 Del Method 09/13/21 15:24 36.4 C L 72 16 110/68 95 Room Air 09/13/21 07:34 36.7 C 59 L 16 119/79 94 Room Air Laboratory Results Laboratory Results WBC 11.48 K/ul (4.8-10.8) H 09/12/21 06:51 RBC 4.36 M/uL (3.93-5.22) 09/12/21 06:51 Hgb 13.4 g/dl (12.0-16.0) 09/12/21 06:51 Hct 39.9 % (34.1-44.9) 09/12/21 06:51 MCV 91.5 fL (80.0-100.0) 09/12/21 06:51 MCH 30.7 pg (25.0-34.0) 09/12/21 06:51 MCHC 33.6 g/dL (32.0-36.0) 09/12/21 06:51 RDW Std Deviation 48.5 fL (36.4-46.3) H 09/12/21 06:51 RDW Coeff of Carine 14.2 % (11.5-14.5) 09/12/21 06:51 Plt Count 178 K/uL (130-400) 09/12/21 06:51 MPV 12.4 fL (9.4-12.3) H 09/12/21 06:51 Immature Gran % (Auto) 0.6 % 09/12/21 06:51 Neut % (Auto) 54.9 % 09/12/21 06:51 Lymph % (Auto) 37.5 % 09/12/21 06:51 [place] % (Auto) 6.4 % 09/12/21 06:51 Eos % (Auto) 0.3 % 09/12/21 06:51 Baso % (Auto) 0.3 % 09/12/21 06:51 Neut # (Auto) 6.32 K/uL (1.4-6.5) 09/12/21 06:51 Lymph # (Auto) 4.30 K/uL (1.2-3.4) H 09/12/21 06:51 [place] # (Auto) 0.73 K/uL (0.24-0.82) 09/12/21 06:51 Eos # (Auto) 0.03 K/uL (0-0.50) 09/12/21 06:51 Baso # (Auto) 0.03 K/uL (0-0.2) 09/12/21 06:51 Immature Gran # (Auto) 0.07 K/uL (0.00-0.02) H 09/12/21 06:51 PT 10.7 Seconds (9.0-12.0) 09/11/21 14:15 INR 1.0 (0.9-1.1) 09/11/21 14:15 APTT 22.5 Seconds (21.0-31.0) 09/11/21 14:15 PTT Ratio 0.8 09/11/21 14:15 Sodium 136 mmol/L (136-145) 09/12/21 06:51 Potassium 4.1 mmol/L (3.5-5.1) 09/12/21 06:51 Chloride 98 mmol/L (98-107) 09/12/21 06:51 Carbon Dioxide 32 mmol/L (21-32) 09/12/21 06:51 Anion Gap 6 (3-11) 09/12/21 06:51 BUN 15 mg/dl (6-23) 09/12/21 06:51 Creatinine 0.73 mg/dl (0.6-1.2) 09/12/21 06:51 Est Cr Clr Drug Dosing 95.3 ml/min 09/12/21 06:51 Est GFR ( Amer) 97.4 ml/min 09/12/21 06:51 Est GFR (Non-Af Amer) 84.0 ml/min 09/12/21 06:51 BUN/Creatinine Ratio 20.5 (10-20) H 09/12/21 06:51 Glucose 112 mg/dl (70-99(Fasting)) H 09/12/21 06:51 POC Glucose 147 mg/dl (70-99) H 09/13/21 17:05 Calcium 9.1 mg/dl (8.5-10.1) 09/12/21 06:51 Magnesium 1.9 mg/dl (1.7-2.4) 09/12/21 06:51 Total Bilirubin 0.5 mg/dl (0.2-1.0) 09/12/21 06:51 AST 13 U/L (13-39) 09/12/21 06:51 ALT 11 U/L (7-52) 09/12/21 06:51 Alkaline Phosphatase 69 U/L (34-104) 09/12/21 06:51 Total Protein 6.5 gm/dl (6.0-8.3) 09/12/21 06:51 Albumin 3.7 gm/dl (3.4-5.0) 09/12/21 06:51 Globulin 2.8 gm/dl (2.5-4.0) 09/12/21 06:51 Albumin/Globulin Ratio 1.3 (0.9-2) 09/12/21 06:51 SARS-CoV-2, RNA, NAAT NEGATIVE (NEGATIVE) 09/11/21 13:30 Diagnostic Findings Impressions Lumbar Spine MRI 09/11/21 08:12 MR lumbar spine wo con CLINICAL HISTORY: Left back and severe LLE pain TECHNIQUE: Multiplanar sequences through the lumbar spine were obtained, without intravenous contrast. Comparison: None available at the time of this dictation. FINDINGS: The alignment is anatomical. Multilevel degenerative changes are seen most prominent at L2-L3. L1-L2: Moderate posterior disc bulge is seen with mild canal stenosis. Mild bilateral neural foraminal stenosis is seen. L2-L3: There is a large posterior disc bulge with severe canal stenosis (AP diameter 5 mm) and moderate to severe bilateral neural foraminal stenosis. L3-L4: Moderate posterior disc bulge is seen with moderate to severe canal stenosis, AP diameter 6 mm. There is severe bilateral neural foraminal stenosis. L4-L5: No significant abnormality. L5-S1: Small posterior disc bulge is seen with mild canal stenosis and moderate bilateral neuroforaminal stenosis. The spinal ligaments are intact, without evidence of disruption or abnormal signal intensity. The spinal cord is normal in signal intensity and there is no evidence of cord contusion. There is no evidence of an extradural, intradural, extramedullary or intramedullary lesion. Visualized soft tissues are normal. IMPRESSION: Multilevel disc disease with a large posterior disc bulge at L2-L3. There is severe canal stenosis with AP diameter 5 mm, and up to severe bilateral neuroforaminal stenosis. ACT 112: Negative or not required by law. Electronically signed by: Evans Jeff M.D. 09/11/2021 11:06 AM Lumbar Spine X-Ray 09/11/21 14:10 XR lumbar spine 2-3V CLINICAL HISTORY: Lumbar DDD TECHNIQUE: 3 views of the lumbar spine were obtained. Comparison: Comparison is made to MRI lumbar spine 09/11/2021 FINDINGS: There is no evidence of an acute fracture. Multilevel degenerative changes are seen. These are most pronounced at L2-L3. The alignment is normal. No soft tissue abnormality is seen. IMPRESSION: Degenerative changes as above without acute fracture or subluxation. ACT 112: Negative or not required by law. Electronically signed by: Evans Jeff M.D. 09/11/2021 3:12 PM
[2021-09-13] MEDS: PRAVASTATIN SOD 20 MG TAB PO SCH (20:52)
[2021-09-13] MEDS: DOCUSATE SODIUM/SENNA 50/8.6MG TAB PO SCH (20:52)
[2021-09-14] MEDS ORDERED: oxyCODONE HCL IR 5 MG TAB (IMMEDIATE RELEASE) PO PRN (03:26)
[2021-09-14 06:07] LABS: Basophils # (auto) 0.04 K/uL (0-0.2); Basophils % (auto) 0.4 %; Eosinophils # (auto) 0.13 K/uL (0-0.50); Eosinophils % (auto) 1.4 %; Hematocrit (blood only) 41.4 % (34.1-44.9); Immature Granulocytes # (auto) 0.05 K/uL (0.00-0.02); Immature Granulocytes % (auto) 0.6 %; Lymphocytes # (auto) 3.97 K/uL (1.2-3.4); Lymphocytes % (auto) 43.9 %; Mean Corpuscular Hemoglobin 31.4 pg (25.0-34.0); Mean Corpuscular Hgb Conc 33.8 g/dL (32.0-36.0); Mean Corpuscular Volume 92.8 fL (80.0-100.0); Mean Platelet Volume 12.3 fL (9.4-12.3); Monocytes # (auto) 0.73 K/uL (0.24-0.82); Monocytes % (auto) 8.1 %; Neutrophils # (auto) 4.13 K/uL (1.4-6.5); Neutrophils % (auto) 45.6 %; Platelet Count 165 K/uL (130-400); RDW Coefficient of Variation 14.3 % (11.5-14.5); RDW Standard Deviation 48.9 fL (36.4-46.3); Red Blood Count 4.46 M/uL (3.93-5.22); White Blood Count 9.05 K/ul (4.8-10.8)
[2021-09-14] MEDS: LEVOTHYROXINE SODIUM 137 MCG TABLET PO SCH (06:11)
[2021-09-14 06:19] LABS: Prothrombin Time 10.9 Seconds (9.0-12.0)
[2021-09-14 06:41] LABS: Albumin Globulin Ratio 1.3 (0.9-2); Albumin Level 3.6 gm/dl (3.4-5.0); BUN Creatinine Ratio 16.5 (10-20); Bilirubin,Total 0.5 mg/dl (0.2-1.0); Calcium 8.6 mg/dl (8.5-10.1); Est GFR (African American) 88.5 ml/min; Est GFR (Non-African American) 76.4 ml/min; Globulin 2.8 gm/dl (2.5-4.0); Magnesium 1.9 mg/dl (1.7-2.4); Phosphorus 4.4 mg/dl (2.5-4.9); Potassium 3.7 mmol/L (3.5-5.1); Total Protein 6.4 gm/dl (6.0-8.3)
[2021-09-14] MEDS ORDERED: Nursing to Pharmacy Communication SCH ×2 (07:30→19:15)
[2021-09-14] MEDS: LANTUS PER UNIT CHARGE SQ SCH ×2 (08:16→20:55)
[2021-09-14] MEDS ORDERED: ONDANSETRON INJ 2 MG/ML 2 ML VIAL IV PRN ×2 (08:36→13:37)
[2021-09-14] MEDS ORDERED: HYDROmorphone INJ 2 MG/ML SYR/VIAL IV PRN (08:36)
[2021-09-14] MEDS ORDERED: ATROPINE SULFATE 0.1 MG/ML 10ML SYR IV PRN (08:36)
[2021-09-14] MEDS ORDERED: ePHEDrine sulfate 50 MG/ML AMP IV PRN (08:36)
--- NOTE | 2021-09-14 08:45 | History & Physical Bridge Note ---
Date of Service September 14, 2021 History & Physical Bridge Note I have examined the patient, reviewed the History & Physical and in the interval since the performance of the History & Physical I have noted the following changes of clinical significance: no changes noted Patient continues to have marked decline in neurologic function involving the left lower extremity with progressive weakness. Subsequently she is here for urgent decompression and fusion L2-L3 L3-L4.
[2021-09-14] MEDS: PANTOprazole 40 MG TAB PO SCH (08:48)
[2021-09-14] MEDS: CHOLECALCIFEROL 1,000 UNITS 25 MCG TAB PO SCH (08:48)
[2021-09-14] MEDS: hydroCHLOROthiazide 25 MG TAB PO SCH (08:48)
[2021-09-14] MEDS: COLESEVELAM HCL PO SCH ×2 (08:48→17:14)
[2021-09-14] MEDS: GABAPENTIN 300 MG CAP PO SCH ×2 (08:48→19:51)
[2021-09-14] MEDS ORDERED: ceFAZolin 2,000 MG/15 ML IV PUSH IV ONE (08:54)
[2021-09-14] MEDS ORDERED: ceFAZolin 330 MG/ML 1 GM VIAL ONE (08:56)
[2021-09-14] MEDS ORDERED: fentaNYL citrate 100 MCG/2 ML VIAL ONE (08:56)
[2021-09-14] MEDS ORDERED: BUPIVACAINE/EPINEPHRINE 0.25% 1:200,000 30 ML VIAL ONE (08:56)
[2021-09-14] MEDS ORDERED: FLOSEAL HEMOSTATIC MATRIX 10ML TOP ONE (09:51)
[2021-09-14] MEDS ORDERED: PHENYLEPHRINE 100MCG/ML 5ML SYR ONE (09:57)
[2021-09-14] MEDS ORDERED: PROPOFOL IV EMULSION 10 MG/ML 20 ML VIAL IV ONE ×2 (10:11→10:51)
[2021-09-14] MEDS ORDERED: LIDOCAINE 2% MPF LOCAL 5 ML VIAL INFIL ONE (10:11)
[2021-09-14] MEDS ORDERED: ROCURONIUM BROMIDE 10 MG/ML 5 ML VIAL IV ONE (10:11)
[2021-09-14] MEDS ORDERED: DEXAMETHASONE SOD INJ 4 MG/ML VIAL ONE (10:11)
[2021-09-14] MEDS ORDERED: ONDANSETRON INJ 2 MG/ML 2 ML VIAL ONE (10:12)
[2021-09-14] MEDS ORDERED: GLYCOPYRROLATE 0.2 MG/ML VIAL ONE (10:12)
[2021-09-14] MEDS ORDERED: NEOSTIGMINE METHYLSULFATE 1 MG/ML 10ML VIAL ONE (10:12)
--- NOTE | 2021-09-14 11:42 | Operative Report ---
Post Operative Report Pre & Post Diagnosis Operation Date: 09/14/21 09:15 Pre-Op Diagnosis: Lumbar spinal stenosis with disc herniation and radiculopathy Post-Op Diagnosis: Same I identified the patient and participated in the time-out.: Yes Procedure Operation Date: 09/14/21 09:15 Actual Procedures #1 lumbar decompression with bilateral medial facetectomies and foraminotomies L1-L2, L2-L3 and L3-L4. #2 posterior spinal fusion L2-L3 L3-L4. #3 placement posterior instrumentation L2-L3 L3-L4. #4 interbody fusion L2-L3 L3-L4. #5 placement of Spira 12 x 26 mm cage L2-L3 and 13 x 26 mm cage at L3-L4. Surgeon Timothy Herr, DO Brake Machine Operator None Estimated Blood Loss 200 Findings See Below The patient is 5 foot 6 inches tall weighing over 118 kg with a BMI in excess of 42. The patient's body habitus did contribute to significant technical difficulty requiring high deepest retractors longer instruments in order to perform her procedure. This at least 50% increased operative time. Specimens None Indications This is a 71-year-old female presents with marked decline in status and progressive neuro deficit and subsequently here for urgent decompression fusion. Description of Procedure Patient was met with identified informed consent obtained. Patient was then taken to the operative suite underwent a patient placed in a prone position the Peterson table top Fabricio frame. All bony prominences well-padded eyes inspected to ensure no external pressure placed upon the. This point the lumbar spine was prepped and draped in normal sterile fashion. Sharp dissection with the assistance of Bovie cautery was performed down to and exposing the lamina and transverse processes of to L3-L4 bilaterally. From a caudal to cephalad fashion complete laminectomy of L3 and L2 and partial laminectomy L1 was performed including bilateral medial facetectomies and foraminotomies addressing severe spinal stenosis as well as disc herniation at L2-L3 on the right and a far lateral disc herniation at L3-L4 on the left. After complete decompression pedicle screws were placed in L2-L3-L4 bilaterally with assistance of fluoroscopy and appropriate sized elba placed. By way of entrance foraminal approach on the left complete discectomy of L3-L4 was performed endplates curetted to subcortical bleeding bone and a 13 x 26 mm spiral cage filled with I factor tapped in position. Then proceeded to L to L3 and again by way of a transforaminal approach on the right a complete discectomy performed endplates curetted to subcortical bleeding bone and a 12 x 26 mm spiral cage with I factor tapped in position. The rods were then locked into final position bilaterally. The transverse processes of L2-L3-L4 burred to subcortical bleeding bone. I factor combined with V toss and locally harvested morselized autograft was placed in the posterior gutters. 15 round MORGAN drain inserted. The incision was then closed with 1 Vicryl the fascia 2-0 Vicryl subcutaneously and 4 Monocryl for final skin closure. Steri-Strip sterile dressings placed. Patient waken taken PACU stable condition. Please note spinal cord monitoring was utilized at the procedure no changes noted. I attest to the content of the Intraoperative Record and any orders documented therein. Any exceptions are noted below.
[2021-09-14] MEDS ORDERED: ePHEDrine sulfate 50 MG/ML AMP ONE (11:59)
[2021-09-14] MEDS: fentaNYL citrate 100 MCG/2 ML VIAL IV PRN ×2 (12:02→12:10)
--- NOTE | 2021-09-14 12:40 | Fluoroscopy Report ---
FL lumbar spine 2-3V CLINICAL HISTORY: L2-L4 DECOMPRESSION AND FUSION COMPARISON STUDY: None. FLUOROSCOPY TIME: 37 seconds. FINDINGS: 2 fluoroscopic spot images of the lumbar spine. The history reports a posterior decompressi on and fusion from the L2-L4 levels with pedicle screws and rods. The hardware appears intact. Of not e, the exact levels are difficult to determine on this spot image. Disc spaces are noted. IMPRESSION: Fluoroscopic assistance provided for lumbar spinal posterior decompression and fusion as described above. ACT 112: Negative or not required by law. Electronically signed by: Lele Pemberton M.D. 09/14/2021 12:38 PM
[2021-09-14] MEDS ORDERED: HYDROmorphone INJ 0.5 MG/0.5 ML SYR IV PRN (13:37)
[2021-09-14] MEDS ORDERED: LORazepam 0.5 MG TAB PO PRN (13:37)
[2021-09-14] MEDS ORDERED: ACETAMINOPHEN 1,000 MG/100 ML VIAL IV PRN (13:37)
[2021-09-14] MEDS ORDERED: ONDANSETRON 4 MG OD TAB PO PRN (13:37)
[2021-09-14] MEDS ORDERED: NALOXONE HCL 0.4 MG/1 ML VIAL/CARP IV PRN (13:37)
[2021-09-14] MEDS ORDERED: PROMETHAZINE HCL 12.5 MG in SODIUM CHLORIDE 0.9% 50 ML IV PRN (13:37)
[2021-09-14] MEDS ORDERED: bisacodyL 10 MG SUPP PR PRN (13:37)
[2021-09-14] MEDS ORDERED: MAGNESIUM HYDROXIDE SUSP 30 ML UDC PO PRN (13:37)
[2021-09-14] MEDS ORDERED: METOCLOPRAMIDE HCL INJ 5 MG/ML 2 ML VIAL IV PRN (13:37)
[2021-09-14] MEDS ORDERED: FAMOTIDINE 20 MG TAB PO PRN (13:37)
[2021-09-14] MEDS ORDERED: LORazepam 0.5 MG in SYRINGE 0.25 ML IV PRN (13:37)
[2021-09-14] MEDS ORDERED: SOD PHOSPHATE/SOD BIPHOSPHATE ENEMA 132 ML BTL PR PRN (13:37)
[2021-09-14] MEDS ORDERED: hydrOXYzine HCl 25 MG TAB PO PRN (13:37)
[2021-09-14] MEDS ORDERED: HYDROmorphone INJ 1 MG/ML SYRINGE IV PRN (13:37)
[2021-09-14] MEDS ORDERED: ALUMINUM/MAGNESIUM SUSP 30 ML UDC PO PRN (13:37)
[2021-09-14] MEDS ORDERED: diphenhydrAMINE Capsule 25 MG CAP PO PRN (13:37)
[2021-09-14] MEDS: INSULIN ASPART PER UNIT SC SCH ×3 (14:17→20:56)
[2021-09-14] MEDS: SODIUM CHLORIDE 0.9% 1000ML 1,000 ML IV SCH ×2 (14:18→21:44)
--- NOTE | 2021-09-14 16:32 | Hospitalist Progress Note ---
Date of Service September 14, 2021 Assessment & Plan (1) Lumbar disc herniation with radiculopathy: (2) Neuroforaminal stenosis of lumbar spine: (3) Low back pain radiating down leg: (4) T2DM (type 2 diabetes mellitus): (5) HTN (hypertension): (6) HLD (hyperlipidemia): (7) Hypothyroidism: Plan This is a 71-year-old female who has significant past medical history of T2DM, HTN, HLD, hypothyroidism who presents to ED secondary to lower back pain with radiation to left thigh since end of July. MRI L Spine: IMPRESSION: Multilevel disc disease with a large posterior disc bulge at L2-L3. There is severe canal stenosis with AP diameter 5 mm, and up to severe bilateral neuroforaminal stenosis. Lumbar disc herniation with radiculopathy Bilateral neuroforaminal stenosis of lumbar spine Left-sided low back pain with radiation to left thigh, correlating with L2 and L3 nerve root no surgical intervention yet but may be considered if no improvement with conservative treatments-per ortho spine (Dr. Herr) Pain improved but not well controlled. Gabapentin and SUMI per pain management Patient unwilling to be discharged for outpatient SUMI as offered. For now trial scheduled Toradol with some valium for additional muscle relaxing effect. Hold narcotics while giving scheduled valium. Will not pursue additional steroids at this time. Mild leukocytosis noted likely a result of recent prednisone. ICE QID - s/p lumbar decompression with laminectomy and fusion with ortho today 09/14/2021 - pain control - Bowel regimen - PT/OT when able T2DM chronic, well controlled, a1c 6.4 08/30/21 hold metformin and actos lantus/novolog per protocol while inpatient HTN chronic, at goal. continue HCTZ per home regimen. HLD continue statin pt also on welchol-- but is for diarrhea from hx of cholecystectomy Hypothyroidism chronic, stable. continue Synthroid DVT ppx: Lovenox - restart tomorrow AM Dispo: med/surg PCP: Dr. Jadyn Johnson, DO FULL CODE Axel Toledo MD [facility] Medicine Admission and Anticipated Discharge Date Admission Date: September 12, 2021 Subjective Patient admitted for intractable back pain related to disc herniation and lumbar spinal stenosis. Has been trying multimodal pain management with benzos, opioids, NSAIDs and rest without much releif. Option declined by patient for discharge and follow up with pain management for epidural steroid injections. Seen again by orthopedic surgery who is offering decompression surgery with likely need for fusion due to degree of instability that will result from surgery. Had laminectomy and fusion with ortho 09/14/2021. Saw patient post-op and she was comfortable lying in bed. She denied any pain at the time, denied chest pain, shortness of breath, n/v/d, abdominal pain. Review of Systems Review of Systems: All systems reviewed & are unremarkable except as noted in Subjective All systems reviewed negative except as indicated above. Physical Exam Physical Exam: CONSTITUTIONAL: WNWD, vitals as above, generally well-appearin g, NAD EYES: normal conjunctivae, no scleral icterus ENT: external ear and nose normal, MMM NECK: trachea midline RESPIRATORY: clear to auscultation bilaterally, no crackles, rales or wheezes, normal respiratory effort CARDIOVASCULAR: regular rate and rhythm, S1 and 2 heard without murmurs, gallops or rubs, no JVD, no peripheral edema CHEST: inspection of chest was normal GASTROINTESTINAL: soft, nontender, ND, no guarding MUSCULOSKELETAL: strength 5/5 throughout lower extremities, head is normocephalic and atraumatic, lower back and LE exam deferred due to recent surgery and post-op eval by ortho SKIN: warm and dry NEUROLOGIC: patellar DTRs 2+ bilat. CN 2-12 grossly intact, no sensory deficit, normal cognition, normal speech, no tremor, gait was not assessed. PSYCHIATRIC: alert cooperative and oriented to person, place and time. Euthymic mood, makes good eye contact, language grossly intact, recent and remote memory grossly intact. Results & Data Results & Data ([facility]) Vital Signs (Past 12 Hours) Vital Signs Temp Pulse Pulse Pulse Resp BP BP 09/14/21 14:57 36.4 C L 76 16 109/72 09/14/21 15:30 36.8 C 85 16 106/68 09/14/21 14:32 74 16 95/61 L 09/14/21 14:07 37.7 C H 18 105/69 09/14/21 13:20 74 16 111/60 09/14/21 13:10 74 16 112/58 L 09/14/21 13:00 36.4 C L 71 14 116/61 09/14/21 12:50 70 14 113/58 L 09/14/21 12:40 71 13 114/58 L 09/14/21 12:30 68 12 111/57 L 09/14/21 12:20 70 16 112/60 09/14/21 12:10 69 16 111/59 L 09/14/21 12:00 73 18 109/64 09/14/21 11:50 79 20 121/65 09/14/21 11:49 36.6 C 78 22 117/59 L 09/14/21 08:19 36.6 C 71 20 124/63 09/14/21 07:46 36.5 C 66 18 131/80 Pulse Ox O2 Del Method O2 Flow Rate 09/14/21 14:57 93 Nasal Cannula 2 09/14/21 15:30 96 Nasal Cannula 2 09/14/21 14:32 96 Nasal Cannula 2 09/14/21 14:07 96 Nasal Cannula 2 09/14/21 13:20 93 Nasal Cannula 2 09/14/21 13:10 93 Nasal Cannula 2 09/14/21 13:00 93 Nasal Cannula 2 09/14/21 12:50 93 Oxymask 3 09/14/21 12:40 93 Oxymask 3 09/14/21 12:30 93 Oxymask 3 09/14/21 12:20 94 Oxymask 3 09/14/21 12:10 94 Oxymask 6 09/14/21 12:00 93 Oxymask 6 09/14/21 11:50 94 Oxymask 6 09/14/21 11:49 94 Oxymask 6 09/14/21 08:19 95 Room Air 09/14/21 07:46 93 Room Air Laboratory Results Short CBC 09/14/21 Range/Units 05:54 WBC 9.05 (4.8-10.8) K/ul Hgb 14.0 (12.0-16.0) g/dl Hct 41.4 (34.1-44.9) % Plt Count 165 (130-400) K/uL BMP 09/14/21 05:54 Sodium 136 Potassium 3.7 Chloride 100 Carbon Dioxide 29 BUN 13 Creatinine 0.79 Glucose 129 H Calcium 8.6 Liver Function 09/14/21 Range/Units 05:54 Total Bilirubin 0.5 (0.2-1.0) mg/dl AST 18 (13-39) U/L ALT 16 (7-52) U/L Alkaline Phosphatase 73 (34-104) U/L Albumin 3.6 (3.4-5.0) gm/dl Diagnostic Findings Lumbar Spine X-Ray 09/14/21 09:15 FL lumbar spine 2-3V CLINICAL HISTORY: L2-L4 DECOMPRESSION AND FUSION COMPARISON STUDY: None. FLUOROSCOPY TIME: 37 seconds. FINDINGS: 2 fluoroscopic spot images of the lumbar spine. The history reports a posterior decompression and fusion from the L2-L4 levels with pedicle screws and rods. The hardware appears intact. Of note, the exact levels are difficult to determine on this spot image. Disc spaces are noted. IMPRESSION: Fluoroscopic assistance provided for lumbar spinal posterior decompression and fusion as described above. ACT 112: Negative or not required by law. Electronically signed by: Lele Pemberton M.D. 09/14/2021 12:38 PM Medications Administered Current Inpatient Medications Acetaminophen (Acetaminophen 500 Mg Tab) 1,000 mg PO Q8H PRN PRN Reason: MILD Pain Scale 1,2,3 & Pre PT Stop: 10/14/21 13:36 Al Hydrox/Mg Hydrox/Simethicone (Aluminum/Magnesium Susp 30 Ml Udc) 30 ml PO Q6H PRN PRN Reason: Dyspepsia Stop: 10/14/21 13:36 Atropine Sulfate (Atropine Sulfate 0.1 Mg/Ml 10ml Syr) 0.5 mg IV Q1M PRN PRN Reason: PACU Use-HR<40 &/or Bradycardi Stop: 09/14/21 16:36 Bisacodyl (Bisacodyl 10 Mg Supp) 10 mg MO DAILY PRN PRN Reason: Constipation Stop: 10/14/21 13:36 Colesevelam HCl (Colesevelam Hcl) 2 each PO BIDM FERNY Stop: 10/13/21 07:59 Last Admin: 09/14/21 08:48 Dose: Not Given Dextrose (Dextrose 50% 50 Ml Syringe) 25 - 50 ml IV UD PRN; Protocol PRN Reason: Hypoglycemia Protocol Stop: 10/11/21 16:18 Diphenhydramine HCl (Diphenhydramine Capsule 25 Mg Cap) 25 mg PO Q6H PRN PRN Reason: Allergic Rhinitis/Insomnia Stop: 10/14/21 13:36 Ephedrine Sulfate (Ephedrine Sulfate 50 Mg/Ml Amp) 5 mg IV Q5M PRN PRN Reason: PACU Use Only-SBP<90 mmHg Stop: 09/14/21 16:36 Famotidine (Famotidine 20 Mg Tab) 20 mg PO Q12H PRN PRN Reason: Dyspepsia Stop: 10/14/21 13:36 Fentanyl Citrate (Fentanyl Citrate 100 Mcg/2 Ml Vial) 50 mcg IV Q5M PRN PRN Reason: PACU Use Only-Pain Stop: 09/14/21 16:36 Last Admin: 09/14/21 12:10 Dose: 50 mcg Gabapentin (Gabapentin 300 Mg Cap) 300 mg PO BID FERNY Stop: 10/12/21 12:29 Last Admin: 09/14/21 08:48 Dose: Not Given Glucagon (Glucagon For Inj 1 Mg Vial) 1 mg SQ UD PRN; Protocol PRN Reason: Hypoglycemia Protocol Stop: 10/11/21 16:18 Glucose (Glucose 40% Gel 15 Gm Tube) 15 - 30 gm PO UD PRN; Protocol PRN Reason: Hypoglycemia Protocol Stop: 10/11/21 16:18 Glucose (Glucose 10 Tab/Tube) 4 - 8 tab PO UD PRN; Protocol PRN Reason: Hypoglycemia Treatment Stop: 10/11/21 16:18 Hydrochlorothiazide (Hydrochlorothiazide 25 Mg Tab) 25 mg PO DAILY FERNY Stop: 10/12/21 08:59 Last Admin: 09/14/21 08:48 Dose: Not Given Hydromorphone HCl (Hydromorphone Inj 0.5 Mg/0.5 Ml Syr) 0.5 mg IV Q3H PRN PRN Reason: MODERATE Pain (Scale 4,5,6) & Pre PT Stop: 09/28/21 13:36 Hydromorphone HCl (Hydromorphone Inj 1 Mg/Ml Syringe) 1 mg IV Q3H PRN PRN Reason: SEVERE Pain (Scale 7,8,9,10) Stop: 09/28/21 13:36 Hydroxyzine HCl (Hydroxyzine Hcl 25 Mg Tab) 25 mg PO Q8H PRN PRN Reason: Anxiety Stop: 10/14/21 13:36 Cefazolin Sodium (Ancef 2000mg) 2,000 mg in 15 mls @ 3.75 mls/min IV Q8H FERNY; Protocol Stop: 09/15/21 01:48 Acetaminophen (Ofirmev) 1,000 mg in 100 mls @ 400 mls/hr IV Q8H PRN PRN Reason: Pain Rating 1-3 & Pre PT Stop: 09/15/21 13:37 Lorazepam 0.5 mg/ Syringe 0.5 mls @ 2 mls/min IV Q8H PRN PRN Reason: Sedation/Anxiety Stop: 10/14/21 13:36 Sodium Chloride (Nss 1000ml) 1,000 mls @ 150 mls/hr IV .Q6H40M [facility] Stop: 10/14/21 13:36 Last Admin: 09/14/21 14:18 Dose: 150 mls/hr Promethazine HCl 12.5 mg/ (Sodium Chloride) 50.5 mls @ 202 mls/hr IV Q6H PRN PRN Reason: Nausea &/or Vomiting Stop: 10/14/21 13:36 Insulin Aspart (Insulin Aspart Per Unit) 0 units SC Q6 [facility] Stop: 10/14/21 11:59 Last Admin: 09/14/21 14:17 Dose: 4 units Insulin Glargine (Lantus Per Unit Charge) 0 - 10 units SQ BID [facility] Stop: 10/11/21 20:59 Last Admin: 09/14/21 08:16 Dose: Not Given Levothyroxine Sodium (Levothyroxine Sodium 137 Mcg Tablet) 137 mcg PO DAILYBB [facility] Stop: 10/12/21 06:29 Last Admin: 09/14/21 06:11 Dose: 137 mcg Lorazepam (Lorazepam 0.5 Mg Tab) 0.5 mg PO Q8H PRN PRN Reason: Sedation/Anxiety Stop: 10/14/21 13:36 Magnesium Hydroxide (Magnesium Hydroxide Susp 30 Ml Udc) 30 ml PO Q24H PRN PRN Reason: Constipation Stop: 10/14/21 13:36 Metoclopramide HCl (Metoclopramide Hcl Inj 5 Mg/Ml 2 Ml Vial) 10 mg IV Q6H PRN PRN Reason: Nausea &/or Vomiting Stop: 10/14/21 13:36 Miscellaneous (Carbohydrates For Hypoglycemia ) 15 - 30 gm PO UD PRN PRN Reason: Hypoglycemia Protocol Stop: 10/11/21 16:18 Naloxone HCl (Naloxone Hcl 0.4 Mg/1 Ml Vial/Carp) 0.1 mg IV Q5M PRN PRN Reason: Oversedation/Resp depression Stop: 10/14/21 13:36 Ondansetron HCl (Ondansetron Inj 2 Mg/Ml 2 Ml Vial) 4 mg IV Q6H PRN PRN Reason: Nausea &/or Vomiting Stop: 10/14/21 13:36 Ondansetron HCl (Ondansetron 4 Mg Od Tab) 4 mg PO Q6H PRN PRN Reason: Nausea Stop: 10/14/21 13:36 Oxycodone HCl (Oxycodone Hcl Ir 5 Mg Tab (Immediate Release)) 5 - 10 mg PO Q4H PRN PRN Reason: Pain & Pre PT Stop: 09/28/21 13:36 Pantoprazole Sodium (Pantoprazole 40 Mg Tab) 40 mg PO DAILY [facility]; Protocol Stop: 10/12/21 08:59 Last Admin: 09/14/21 08:48 Dose: Not Given Polyethylene Glycol (Polyethylene (Miralax) 17 Gm Pack) 17 gm PO Q6 [facility] Stop: 10/15/21 05:59 Pravastatin Sodium (Pravastatin Sod 20 Mg Tab) 20 mg PO HS [facility] Stop: 10/11/21 20:59 Last Admin: 09/13/21 20:52 Dose: 20 mg Senna/Docusate Sodium (Docusate Sodium/Senna 50/8.6mg Tab) 2 tab PO HS [facility] Stop: 10/14/21 20:59 Sodium Biphosphate/Sodium Phosphate (Sod Phosphate/Sod Biphosphate Enema 132 Ml Btl) 132 ml MO ONE PRN PRN Reason: Constipation Stop: 10/14/21 13:36 Tramadol HCl (Tramadol Hcl 50 Mg Tablet) 50 - 100 mg PO Q4H PRN PRN Reason: Moderate-Severe pain & Pre PT Stop: 10/14/21 13:36 Vitamin D (Cholecalciferol 1,000 Units 25 Mcg Tab) 1,000 units PO DAILY [facility] Stop: 10/12/21 08:59 Last Admin: 09/14/21 08:48 Dose: Not Given
[2021-09-14] MEDS: oxyCODONE HCL IR 5 MG TAB (IMMEDIATE RELEASE) PO PRN ×2 (17:18→21:47)
[2021-09-14] MEDS: ceFAZolin 2000MG 2,000 MG/15 ML SYR IV SCH (17:31)
[2021-09-14] MEDS: traMADol HCL 50 MG TABLET PO PRN (19:49)
[2021-09-14] MEDS: DOCUSATE SODIUM/SENNA 50/8.6MG TAB PO SCH (19:50)
[2021-09-14] MEDS: PRAVASTATIN SOD 20 MG TAB PO SCH (20:50)
[2021-09-15] MEDS: ceFAZolin 2000MG 2,000 MG/15 ML SYR IV SCH (01:37)
[2021-09-15] MEDS: ACETAMINOPHEN 500 MG TAB PO PRN (01:40)
[2021-09-15] MEDS: traMADol HCL 50 MG TABLET PO PRN ×3 (01:43→18:03)
[2021-09-15] MEDS: SODIUM CHLORIDE 0.9% 1000ML 1,000 ML IV SCH (04:54)
[2021-09-15] MEDS: LEVOTHYROXINE SODIUM 137 MCG TABLET PO SCH (05:49)
[2021-09-15] MEDS: POLYETHYLENE (MIRALAX) 17 GM PACK PO SCH ×4 (05:49→23:39)
[2021-09-15] MEDS: COLESEVELAM HCL PO SCH ×2 (08:32→16:49)
[2021-09-15] MEDS: oxyCODONE HCL IR 5 MG TAB (IMMEDIATE RELEASE) PO PRN ×2 (08:32→21:04)
[2021-09-15] MEDS: PANTOprazole 40 MG TAB PO SCH (08:33)
[2021-09-15] MEDS: CHOLECALCIFEROL 1,000 UNITS 25 MCG TAB PO SCH (08:33)
[2021-09-15] MEDS: GABAPENTIN 300 MG CAP PO SCH ×2 (08:33→21:06)
[2021-09-15] MEDS: hydroCHLOROthiazide 25 MG TAB PO SCH (08:33)
[2021-09-15] MEDS: LANTUS PER UNIT CHARGE SQ SCH ×2 (08:39→21:57)
[2021-09-15] MEDS: INSULIN ASPART PER UNIT SC SCH ×4 (08:40→21:57)
[2021-09-15 09:27] LABS: Basophils # (auto) 0.03 K/uL (0-0.2); Basophils % (auto) 0.2 %; Eosinophils # (auto) 0.07 K/uL (0-0.50); Eosinophils % (auto) 0.5 %; Hematocrit (blood only) 36.2 % (34.1-44.9); Hemoglobin 11.9 g/dl (12.0-16.0); Immature Granulocytes # (auto) 0.08 K/uL (0.00-0.02); Immature Granulocytes % (auto) 0.6 %; Lymphocytes # (auto) 4.08 K/uL (1.2-3.4); Lymphocytes % (auto) 30.7 %; Mean Corpuscular Hemoglobin 30.8 pg (25.0-34.0); Mean Corpuscular Hgb Conc 32.9 g/dL (32.0-36.0); Mean Corpuscular Volume 93.8 fL (80.0-100.0); Mean Platelet Volume 12.6 fL (9.4-12.3); Monocytes # (auto) 0.95 K/uL (0.24-0.82); Monocytes % (auto) 7.1 %; Neutrophils % (auto) 60.9 %; Platelet Count 168 K/uL (130-400); RDW Coefficient of Variation 14.7 % (11.5-14.5); RDW Standard Deviation 50.2 fL (36.4-46.3); Red Blood Count 3.86 M/uL (3.93-5.22); White Blood Count 13.31 K/ul (4.8-10.8)
--- NOTE | 2021-09-15 09:47 | Orthopedic Progress Note ---
Date of Service September 15, 2021 Assessment & Plan (1) Neuroforaminal stenosis of lumbar spine: Plan: This time continue physical therapy monitor MORGAN output overly discharge home F this weekend. Admission and Anticipated Discharge Date Admission Date: September 12, 2021 Subjective Patient's left left leg is markedly improved. Back pain is still quite significant. Physical Exam Physical Exam: Patient is in bed. She is comfortable. Is good strength test ing. Results & Data ([facility]) Vital Signs (Past 12 Hours) Vital Signs Temp Pulse Pulse Resp BP BP Pulse Ox 09/15/21 07:10 09/15/21 07:30 36.7 C 73 20 91/61 L 94 09/15/21 03:36 36.6 C 77 18 103/68 91 09/14/21 21:55 92 09/14/21 21:55 36.5 C 75 18 103/68 93 O2 Del Method O2 Flow Rate 09/15/21 07:10 Nasal Cannula 2 09/15/21 07:30 09/15/21 03:36 Nasal Cannula 2 09/14/21 21:55 Nasal Cannula 2 09/14/21 21:55 Nasal Cannula 2
[2021-09-15 09:51] LABS: BUN Creatinine Ratio 16.3 (10-20); Calcium 8.3 mg/dl (8.5-10.1); Creatinine Clr Calc Pharmacy 86.9 ml/min; Est GFR (African American) 87.2 ml/min; Est GFR (Non-African American) 75.2 ml/min; Magnesium 1.8 mg/dl (1.7-2.4); Phosphorus 3.5 mg/dl (2.5-4.9); Potassium 4.1 mmol/L (3.5-5.1)
--- NOTE | 2021-09-15 12:50 | Hospitalist Progress Note ---
Date of Service September 15, 2021 Assessment & Plan (1) Lumbar disc herniation with radiculopathy: (2) Neuroforaminal stenosis of lumbar spine: (3) Low back pain radiating down leg: (4) T2DM (type 2 diabetes mellitus): (5) HTN (hypertension): (6) HLD (hyperlipidemia): (7) Hypothyroidism: Plan This is a 71-year-old female who has significant past medical history of T2DM, HTN, HLD, hypothyroidism who presents to ED secondary to lower back pain with radiation to left thigh since end july. MRI L Spine: IMPRESSION: Multilevel disc disease with a large posterior disc bulge at L2-L3. There is severe canal stenosis with AP diameter 5 mm, and up to severe bilateral neuroforaminal stenosis. Lumbar disc herniation with radiculopathy Bilateral neuroforaminal stenosis of lumbar spine Left-sided low back pain with radiation to left thigh, correlating with L2 and L3 nerve root no surgical intervention yet but may be considered if no improvement with conservative treatments-per ortho spine (Dr. Herr) Pain improved but not well controlled. Gabapentin and SUMI per pain management Patient unwilling to be discharged for outpatient SUMI as offered. For now trial scheduled Toradol with some valium for additional muscle relaxing effect. Hold narcotics while giving scheduled valium. Will not pursue additional steroids at this time. Mild leukocytosis noted likely a result of recent prednisone. ICE QID - s/p lumbar decompression with laminectomy and fusion with ortho 09/14/2021 - recovering well - pain control - Bowel regimen - PT/OT when able T2DM chronic, well controlled, a1c 6.4 08/30/21 hold metformin and actos lantus/novolog per protocol while inpatient HTN chronic, at goal. continue HCTZ per home regimen. HLD continue statin pt also on welchol-- but is for diarrhea from hx of cholecystectomy Hypothyroidism chronic, stable. continue Synthroid DVT ppx: Lovenox - restart tomorrow AM Dispo: med/surg PCP: Dr. Jadyn Johnson, FULL CODE Axel Toledo MD Hospital Medicine Admission and Anticipated Discharge Date Admission Date: September 12, 2021 Subjective This is a 71-year-old female who has significant past medical history of T2DM, HTN, HLD, hypothyroidism who presents to ED secondary to lower back pain with radiation to left thigh since end july. MRI of lumbar spine showed large posterior disc herniation at L2-L3 with severe canal stenosis and severe bilateral neuroforaminal stenosis. She was trialed with pain management and ortho was consulted. She ultimately was offered decompression surgery with fusion, which was done 09/14/2021 with initial improvement. She reports no back pain at that time while lying still. Leg symptoms have improved. She denies chest pain, shortness of breath, n/v/d, abdominal pain. Reports not having much of an appetite. Review of Systems Review of Systems: All systems reviewed & are unremarkable except as noted in Subjective All systems reviewed negative except as indicated above. Physical Exam Physical Exam: CONSTITUTIONAL: WNWD, vitals as above, generally well- appearing, NAD EYES: normal conjunctivae, no scleral icterus ENT: external ear and nose normal, MMM NECK: trachea midline RESPIRATORY: clear to auscultation bilaterally, no crackles, rales or wheezes, normal respiratory effort CARDIOVASCULAR: regular rate and rhythm, S1 and 2 heard without murmurs, gallops or rubs, no JVD, no peripheral edema CHEST: inspection of chest was normal GASTROINTESTINAL: soft, nontender, ND, no guarding MUSCULOSKELETAL: strength 5/5 throughout lower extremities, head is normocephalic and atraumatic, lower back and LE exam deferred due to recent surgery and post-op eval by ortho SKIN: warm and dry NEUROLOGIC: patellar DTRs 2+ bilat. CN 2-12 grossly intact, no sensory deficit, normal cognition, normal speech, no tremor, gait was not assessed. PSYCHIATRIC: alert cooperative and oriented to person, place and time. Euthymic mood, makes good eye contact, language grossly intact, recent and remote memory grossly intact. Results & Data Results & Data ([facility]) Vital Signs (Past 12 Hours) Vital Signs Temp Pulse Pulse Resp BP BP Pulse Ox 09/15/21 11:06 36.7 C 77 18 98/63 L 90 09/15/21 07:10 09/15/21 07:30 36.7 C 73 20 91/61 L 94 09/15/21 03:36 36.6 C 77 18 103/68 91 O2 Del Method O2 Flow Rate 09/15/21 11:06 Room Air 09/15/21 07:10 Nasal Cannula 2 09/15/21 07:30 09/15/21 03:36 Nasal Cannula 2 Laboratory Results Short CBC 09/15/21 Range/Units 08:52 WBC 13.31 H (4.8-10.8) K/ul Hgb 11.9 L (12.0-16.0) g/dl Hct 36.2 (34.1-44.9) % Plt Count 168 (130-400) K/uL BMP 09/15/21 08:52 Sodium 135 L Potassium 4.1 Chloride 101 Carbon Dioxide 28 BUN 13 Creatinine 0.80 Glucose 157 H Calcium 8.3 L Medications Administered Current Inpatient Medications Acetaminophen (Acetaminophen 500 Mg Tab) 1,000 mg PO Q8H PRN PRN Reason: MILD Pain Scale 1,2,3 & Pre PT Stop: 10/14/21 13:36 Last Admin: 09/15/21 01:40 Dose: 1,000 mg Al Hydrox/Mg Hydrox/Simethicone (Aluminum/Magnesium Susp 30 Ml Udc) 30 ml PO Q6H PRN PRN Reason: Dyspepsia Stop: 10/14/21 13:36 Bisacodyl (Bisacodyl 10 Mg Supp) 10 mg OR DAILY PRN PRN Reason: Constipation Stop: 10/14/21 13:36 Colesevelam HCl (Colesevelam Hcl) 2 each PO BIDM FERNY Stop: 10/13/21 07:59 Last Admin: 09/15/21 08:32 Dose: Not Given Dextrose (Dextrose 50% 50 Ml Syringe) 25 - 50 ml IV UD PRN; Protocol PRN Reason: Hypoglycemia Protocol Stop: 10/11/21 16:18 Diphenhydramine HCl (Diphenhydramine Capsule 25 Mg Cap) 25 mg PO Q6H PRN PRN Reason: Allergic Rhinitis/Insomnia Stop: 10/14/21 13:36 Famotidine (Famotidine 20 Mg Tab) 20 mg PO Q12H PRN PRN Reason: Dyspepsia Stop: 10/14/21 13:36 Gabapentin (Gabapentin 300 Mg Cap) 300 mg PO BID FERNY Stop: 10/12/21 12:29 Last Admin: 09/15/21 08:33 Dose: 300 mg Glucagon (Glucagon For Inj 1 Mg Vial) 1 mg SQ UD PRN; Protocol PRN Reason: Hypoglycemia Protocol Stop: 10/11/21 16:18 Glucose (Glucose 40% Gel 15 Gm Tube) 15 - 30 gm PO UD PRN; Protocol PRN Reason: Hypoglycemia Protocol Stop: 10/11/21 16:18 Glucose (Glucose 10 Tab/Tube) 4 - 8 tab PO UD PRN; Protocol PRN Reason: Hypoglycemia Treatment Stop: 10/11/21 16:18 Hydrochlorothiazide (Hydrochlorothiazide 25 Mg Tab) 25 mg PO DAILY FERNY Stop: 10/12/21 08:59 Last Admin: 09/15/21 08:33 Dose: Not Given Hydromorphone HCl (Hydromorphone Inj 0.5 Mg/0.5 Ml Syr) 0.5 mg IV Q3H PRN PRN Reason: MODERATE Pain (Scale 4,5,6) & Pre PT Stop: 09/28/21 13:36 Hydromorphone HCl (Hydromorphone Inj 1 Mg/Ml Syringe) 1 mg IV Q3H PRN PRN Reason: SEVERE Pain (Scale 7,8,9,10) Stop: 09/28/21 13:36 Hydroxyzine HCl (Hydroxyzine Hcl 25 Mg Tab) 25 mg PO Q8H PRN PRN Reason: Anxiety Stop: 10/14/21 13:36 Acetaminophen (Ofirmev) 1,000 mg in 100 mls @ 400 mls/hr IV Q8H PRN PRN Reason: Pain Rating 1-3 & Pre PT Stop: 09/15/21 13:37 Lorazepam 0.5 mg/ Syringe 0.5 mls @ 2 mls/min IV Q8H PRN PRN Reason: Sedation/Anxiety Stop: 10/14/21 13:36 Promethazine HCl 12.5 mg/ (Sodium Chloride) 50.5 mls @ 202 mls/hr IV Q6H PRN PRN Reason: Nausea &/or Vomiting Stop: 10/14/21 13:36 Lactated Ringer's (Lr) 1,000 mls @ 100 mls/hr IV .Q10H FERNY Stop: 09/16/21 00:44 Insulin Aspart (Insulin Aspart Per Unit) 0 units SC ACHS FERNY Stop: 10/14/21 20:59 Last Admin: 09/15/21 12:35 Dose: 2 units Insulin Glargine (Lantus Per Unit Charge) 0 - 10 units SQ BID FERNY Stop: 10/11/21 20:59 Last Admin: 09/15/21 08:39 Dose: 5 units Levothyroxine Sodium (Levothyroxine Sodium 137 Mcg Tablet) 137 mcg PO DAILYBB [facility] Stop: 10/12/21 06:29 Last Admin: 09/15/21 05:49 Dose: 137 mcg Lorazepam (Lorazepam 0.5 Mg Tab) 0.5 mg PO Q8H PRN PRN Reason: Sedation/Anxiety Stop: 10/14/21 13:36 Magnesium Hydroxide (Magnesium Hydroxide Susp 30 Ml Udc) 30 ml PO Q24H PRN PRN Reason: Constipation Stop: 10/14/21 13:36 Metoclopramide HCl (Metoclopramide Hcl Inj 5 Mg/Ml 2 Ml Vial) 10 mg IV Q6H PRN PRN Reason: Nausea &/or Vomiting Stop: 10/14/21 13:36 Miscellaneous (Carbohydrates For Hypoglycemia ) 15 - 30 gm PO UD PRN PRN Reason: Hypoglycemia Protocol Stop: 10/11/21 16:18 Naloxone HCl (Naloxone Hcl 0.4 Mg/1 Ml Vial/Carp) 0.1 mg IV Q5M PRN PRN Reason: Oversedation/Resp depression Stop: 10/14/21 13:36 Ondansetron HCl (Ondansetron Inj 2 Mg/Ml 2 Ml Vial) 4 mg IV Q6H PRN PRN Reason: Nausea &/or Vomiting Stop: 10/14/21 13:36 Ondansetron HCl (Ondansetron 4 Mg Od Tab) 4 mg PO Q6H PRN PRN Reason: Nausea Stop: 10/14/21 13:36 Oxycodone HCl (Oxycodone Hcl Ir 5 Mg Tab (Immediate Release)) 5 - 10 mg PO Q4H PRN PRN Reason: Pain & Pre PT Stop: 09/28/21 13:36 Last Admin: 09/15/21 08:32 Dose: 10 mg Pantoprazole Sodium (Pantoprazole 40 Mg Tab) 40 mg PO DAILY [facility]; Protocol Stop: 10/12/21 08:59 Last Admin: 09/15/21 08:33 Dose: 40 mg Polyethylene Glycol (Polyethylene (Miralax) 17 Gm Pack) 17 gm PO Q6 [facility]ERN[facility] Stop: 10/15/21 05:59 Last Admin: 09/15/21 11:35 Dose: Not Given Pravastatin Sodium (Pravastatin Sod 20 Mg Tab) 20 mg PO HS [facility] Stop: 10/11/21 20:59 Last Admin: 09/14/21 20:50 Dose: 20 mg Senna/Docusate Sodium (Docusate Sodium/Senna 50/8.6mg Tab) 2 tab PO HS [facility]ERNY Stop: 10/14/21 20:59 Last Admin: 09/14/21 19:50 Dose: 2 tab Sodium Biphosphate/Sodium Phosphate (Sod Phosphate/Sod Biphosphate Enema 132 Ml Btl) 132 ml OR ONE PRN PRN Reason: Constipation Stop: 10/14/21 13:36 Tramadol HCl (Tramadol Hcl 50 Mg Tablet) 50 - 100 mg PO Q4H PRN PRN Reason: Moderate-Severe pain & Pre PT Stop: 10/14/21 13:36 Last Admin: 09/15/21 01:43 Dose: 100 mg Vitamin D (Cholecalciferol 1,000 Units 25 Mcg Tab) 1,000 units PO DAILY [facility]ERN[facility] Stop: 10/12/21 08:59 Last Admin: 09/15/21 08:33 Dose: 1,000 units
[2021-09-15] MEDS: LACTATED RINGER'S 1,000 ML IV SCH ×2 (12:57→21:08)
[2021-09-15] MEDS: DOCUSATE SODIUM/SENNA 50/8.6MG TAB PO SCH (21:05)
[2021-09-15] MEDS: PRAVASTATIN SOD 20 MG TAB PO SCH (21:06)
[2021-09-16] MEDS: traMADol HCL 50 MG TABLET PO PRN ×2 (00:03→06:05)
[2021-09-16] MEDS: LEVOTHYROXINE SODIUM 137 MCG TABLET PO SCH (05:59)
[2021-09-16] MEDS: POLYETHYLENE (MIRALAX) 17 GM PACK PO SCH ×4 (05:59→23:14)
[2021-09-16 06:28] LABS: Basophils # (auto) 0.04 K/uL (0-0.2); Basophils % (auto) 0.3 %; Eosinophils # (auto) 0.12 K/uL (0-0.50); Eosinophils % (auto) 0.9 %; Hematocrit (blood only) 32.1 % (34.1-44.9); Hemoglobin 10.5 g/dl (12.0-16.0); Immature Granulocytes # (auto) 0.06 K/uL (0.00-0.02); Immature Granulocytes % (auto) 0.5 %; Lymphocytes % (auto) 28.9 %; Mean Corpuscular Hemoglobin 30.9 pg (25.0-34.0); Mean Corpuscular Hgb Conc 32.7 g/dL (32.0-36.0); Mean Corpuscular Volume 94.4 fL (80.0-100.0); Mean Platelet Volume 12.7 fL (9.4-12.3); Monocytes # (auto) 1.15 K/uL (0.24-0.82); Monocytes % (auto) 8.7 %; Neutrophils % (auto) 60.7 %; Nucleated RBC # (auto) 0.02 K/uL (0-0); Nucleated RBC % (auto) 0.2 %; Platelet Count 136 K/uL (130-400); RDW Coefficient of Variation 14.6 % (11.5-14.5); RDW Standard Deviation 50.6 fL (36.4-46.3); White Blood Count 13.17 K/ul (4.8-10.8)
[2021-09-16 06:49] LABS: Appearance Urine Turbid (Clear); Bacteria Urine Automated Negative (Negative); Blood Urine Negative (Negative); Color Urine Orange; Epithelial Cell Urine Auto >30 /lpf (0-5); Glucose Urine UA Negative (Negative); Ketones Urine 1+ (Negative); Leukocyte Esterase Urine Negative (Negative); Nitrite Urine Positive (Negative); Protein Urine Trace (Negative); RBC Urine Automated 0-4 /hpf (0-4); Specific Gravity Urine 1.025 (1.000-1.030); Urobilinogen Urine Negative (Negative)
[2021-09-16 07:01] LABS: Bilirubin Urine 1+ (Negative)
[2021-09-16 07:35] LABS: Amorphous Sediment Urine Present (None Prsent)
--- NOTE | 2021-09-16 07:53 | Hospitalist Progress Note ---
Date of Service September 16, 2021 Assessment & Plan (1) Lumbar disc herniation with radiculopathy: (2) UTI (urinary tract infection): (3) Neuroforaminal stenosis of lumbar spine: (4) Low back pain radiating down leg: (5) T2DM (type 2 diabetes mellitus): (6) HTN (hypertension): (7) HLD (hyperlipidemia): (8) Hypothyroidism: Plan This is a 71-year-old female who has significant past medical history of T2DM, HTN, HLD, hypothyroidism who presents to ED secondary to lower back pain with radiation to left thigh since end of July. MRI L Spine: IMPRESSION: Multilevel disc disease with a large posterior disc bulge at L2-L3. There is severe canal stenosis with AP diameter 5 mm, and up to severe bilateral neuroforaminal stenosis. Lumbar disc herniation with radiculopathy Bilateral neuroforaminal stenosis of lumbar spine Left-sided low back pain with radiation to left thigh, correlating with L2 and L3 nerve root no surgical intervention yet but may be considered if no improvement with conservative treatments-per ortho spine (Dr. Herr) Pain improved but not well controlled. Gabapentin and SUMI per pain management Patient unwilling to be discharged for outpatient SUMI as offered. For now trial scheduled Toradol with some valium for additional muscle relaxing effect. Hold narcotics while giving scheduled valium. Will not pursue additional steroids at this time. Mild leukocytosis noted likely a result of recent prednisone. ICE QID - s/p lumbar decompression with laminectomy and fusion with ortho 09/14/2021 - recovering well - pain control - Bowel regimen - PT/OT when able Urinary Tract Infection - patient with two days of dizziness, decreased appetite, decreased urine output - UA positive for nitrites, WBC - given clinical picture, will treat for UTI with ceftriaxone - IVF for dehydration T2DM chronic, well controlled, a1c 6.4 08/30/21 hold metformin and actos lantus/novolog per protocol while inpatient HTN chronic, at goal. continue HCTZ per home regimen. HLD continue statin pt also on welchol-- but is for diarrhea from hx of cholecystectomy Hypothyroidism chronic, stable. continue Synthroid DVT ppx: Lovenox Dispo: med/surg PCP: Dr. Jadyn Johnson, FULL CODE Axel Toledo MD Hospital Medicine Admission and Anticipated Discharge Date Admission Date: September 12, 2021 Subjective This is a 71-year-old female who has significant past medical history of T2DM, HTN, HLD, hypothyroidism who presents to ED secondary to lower back pain with radiation to left thigh since end of July. MRI of lumbar spine showed large posterior disc herniation at L2-L3 with severe canal stenosis and severe bilateral neuroforaminal stenosis. She was trialed with pain management and ortho was consulted. She ultimately was offered decompression surgery with fusion, which was done 09/14/2021 with initial improvement. Seemed to develop UTI post-op, started on ceftriaxone. She reports back pain but no radicular leg pain. She denies chest pain, shortness of breath, n/v/d, abdominal pain. Reports feeling dizzy this morning again. UA was done overnight which was positive for nitrites and WBC. Review of Systems Review of Systems: All systems reviewed & are unremarkable except as noted in Subjective All systems reviewed negative except as indicated above. Physical Exam Physical Exam: CONSTITUTIONAL: WNWD, vitals as above, generally well- appearing, NAD EYES: normal conjunctivae, no scleral icterus ENT: external ear and nose normal, MMM NECK: trachea midline RESPIRATORY: clear to auscultation bilaterally, no crackles, rales or wheezes, normal respiratory effort CARDIOVASCULAR: regular rate and rhythm, S1 and 2 heard without murmurs, gallops or rubs, no JVD, no peripheral edema CHEST: inspection of chest was normal GASTROINTESTINAL: soft, nontender, ND, no guarding MUSCULOSKELETAL: strength 5/5 throughout lower extremities, head is normocephalic and atraumatic, lower back and LE exam deferred due to recent surgery and post-op eval by ortho SKIN: warm and dry NEUROLOGIC: patellar DTRs 2+ bilat. CN 2-12 grossly intact, no sensory deficit, normal cognition, normal speech, no tremor, gait was not assessed. PSYCHIATRIC: alert cooperative and oriented to person, place and time. Euthymic mood, makes good eye contact, language grossly intact, recent and remote memory grossly intact. Results & Data Results & Data ([facility]) Vital Signs (Past 12 Hours) Vital Signs Temp Pulse Resp BP BP Pulse Ox O2 Del Method 09/16/21 07:39 37.4 C 96 H 16 104/63 92 Nasal Cannula 09/16/21 06:02 101 H 114/70 09/15/21 22:08 36.9 C 97 H 18 99/63 L 97 Room Air O2 Flow Rate 09/16/21 07:39 2.5 09/16/21 06:02 09/15/21 22:08 Laboratory Results Short CBC 09/15/21 09/16/21 Range/Units 08:52 05:50 WBC 13.31 H 13.17 H (4.8-10.8) K/ul Hgb 11.9 L 10.5 L (12.0-16.0) g/dl Hct 36.2 32.1 L (34.1-44.9) % Plt Count 168 136 (130-400) K/uL BMP 09/15/21 08:52 Sodium 135 L Potassium 4.1 Chloride 101 Carbon Dioxide 28 BUN 13 Creatinine 0.80 Glucose 157 H Calcium 8.3 L Urine 09/16/21 Range/Units 05:50 Urine Color [place] Urine Appearance Turbid A (Clear) Urine pH 5.0 (4.5-7.5) Ur Specific [place] 1.025 (1.000-1.030) Urine Protein Trace H (Negative) Urine Glucose (UA) Negative (Negative) Medications Administered Current Inpatient Medications Acetaminophen (Acetaminophen 500 Mg Tab) 1,000 mg PO Q8H PRN PRN Reason: MILD Pain Scale 1,2,3 & Pre PT Stop: 10/14/21 13:36 Last Admin: 09/15/21 01:40 Dose: 1,000 mg Al Hydrox/Mg Hydrox/Simethicone (Aluminum/Magnesium Susp 30 Ml Udc) 30 ml PO Q6H PRN PRN Reason: Dyspepsia Stop: 10/14/21 13:36 Bisacodyl (Bisacodyl 10 Mg Supp) 10 mg TN DAILY PRN PRN Reason: Constipation Stop: 10/14/21 13:36 Colesevelam HCl (Colesevelam Hcl) 2 each PO BIDM FERNY Stop: 10/13/21 07:59 Last Admin: 09/15/21 16:49 Dose: Not Given Dextrose (Dextrose 50% 50 Ml Syringe) 25 - 50 ml IV UD PRN; Protocol PRN Reason: Hypoglycemia Protocol Stop: 10/11/21 16:18 Diphenhydramine HCl (Diphenhydramine Capsule 25 Mg Cap) 25 mg PO Q6H PRN PRN Reason: Allergic Rhinitis/Insomnia Stop: 10/14/21 13:36 Famotidine (Famotidine 20 Mg Tab) 20 mg PO Q12H PRN PRN Reason: Dyspepsia Stop: 10/14/21 13:36 Gabapentin (Gabapentin 300 Mg Cap) 300 mg PO BID FERNY Stop: 10/12/21 12:29 Last Admin: 09/15/21 21:06 Dose: 300 mg Glucagon (Glucagon For Inj 1 Mg Vial) 1 mg SQ UD PRN; Protocol PRN Reason: Hypoglycemia Protocol Stop: 10/11/21 16:18 Glucose (Glucose 40% Gel 15 Gm Tube) 15 - 30 gm PO UD PRN; Protocol PRN Reason: Hypoglycemia Protocol Stop: 10/11/21 16:18 Glucose (Glucose 10 Tab/Tube) 4 - 8 tab PO UD PRN; Protocol PRN Reason: Hypoglycemia Treatment Stop: 10/11/21 16:18 Hydrochlorothiazide (Hydrochlorothiazide 25 Mg Tab) 25 mg PO DAILY [facility] Stop: 10/12/21 08:59 Last Admin: 09/15/21 08:33 Dose: Not Given Hydromorphone HCl (Hydromorphone Inj 0.5 Mg/0.5 Ml Syr) 0.5 mg IV Q3H PRN PRN Reason: MODERATE Pain (Scale 4,5,6) & Pre PT Stop: 09/28/21 13:36 Hydromorphone HCl (Hydromorphone Inj 1 Mg/Ml Syringe) 1 mg IV Q3H PRN PRN Reason: SEVERE Pain (Scale 7,8,9,10) Stop: 09/28/21 13:36 Hydroxyzine HCl (Hydroxyzine Hcl 25 Mg Tab) 25 mg PO Q8H PRN PRN Reason: Anxiety Stop: 10/14/21 13:36 Lorazepam 0.5 mg/ Syringe 0.5 mls @ 2 mls/min IV Q8H PRN PRN Reason: Sedation/Anxiety Stop: 10/14/21 13:36 Promethazine HCl 12.5 mg/ (Sodium Chloride) 50.5 mls @ 202 mls/hr IV Q6H PRN PRN Reason: Nausea &/or Vomiting Stop: 10/14/21 13:36 Lactated Ringer's (Lr) 1,000 mls @ 150 mls/hr IV .Q6H40M [facility] Stop: 09/16/21 14:39 Ceftriaxone Sodium 2,000 mg/ (Dextrose) 70 mls @ 100 mls/hr IV DAILY [facility]; Protocol Stop: 09/21/21 08:59 Insulin Aspart (Insulin Aspart Per Unit) 0 units SC ACHS [facility] Stop: 10/14/21 20:59 Last Admin: 09/15/21 21:57 Dose: Not Given Insulin Glargine (Lantus Per Unit Charge) 0 - 10 units SQ BID [facility] Stop: 10/11/21 20:59 Last Admin: 09/15/21 21:57 Dose: Not Given Levothyroxine Sodium (Levothyroxine Sodium 137 Mcg Tablet) 137 mcg PO DAILYBB [facility] Stop: 10/12/21 06:29 Last Admin: 09/16/21 05:59 Dose: 137 mcg Lorazepam (Lorazepam 0.5 Mg Tab) 0.5 mg PO Q8H PRN PRN Reason: Sedation/Anxiety Stop: 10/14/21 13:36 Magnesium Hydroxide (Magnesium Hydroxide Susp 30 Ml Udc) 30 ml PO Q24H PRN PRN Reason: Constipation Stop: 10/14/21 13:36 Metoclopramide HCl (Metoclopramide Hcl Inj 5 Mg/Ml 2 Ml Vial) 10 mg IV Q6H PRN PRN Reason: Nausea &/or Vomiting Stop: 10/14/21 13:36 Miscellaneous (Carbohydrates For Hypoglycemia ) 15 - 30 gm PO UD PRN PRN Reason: Hypoglycemia Protocol Stop: 10/11/21 16:18 Naloxone HCl (Naloxone Hcl 0.4 Mg/1 Ml Vial/Carp) 0.1 mg IV Q5M PRN PRN Reason: Oversedation/Resp depression Stop: 10/14/21 13:36 Ondansetron HCl (Ondansetron Inj 2 Mg/Ml 2 Ml Vial) 4 mg IV Q6H PRN PRN Reason: Nausea &/or Vomiting Stop: 10/14/21 13:36 Ondansetron HCl (Ondansetron 4 Mg Od Tab) 4 mg PO Q6H PRN PRN Reason: Nausea Stop: 10/14/21 13:36 Oxycodone HCl (Oxycodone Hcl Ir 5 Mg Tab (Immediate Release)) 5 - 10 mg PO Q4H PRN PRN Reason: Pain & Pre PT Stop: 09/28/21 13:36 Last Admin: 09/15/21 21:04 Dose: 10 mg Pantoprazole Sodium (Pantoprazole 40 Mg Tab) 40 mg PO DAILY [facility]; Protocol Stop: 10/12/21 08:59 Last Admin: 09/15/21 08:33 Dose: 40 mg Polyethylene Glycol (Polyethylene (Miralax) 17 Gm Pack) 17 gm PO Q6 [facility] Stop: 10/15/21 05:59 Last Admin: 09/16/21 05:59 Dose: 17 gm Pravastatin Sodium (Pravastatin Sod 20 Mg Tab) 20 mg PO HS [facility] Stop: 10/11/21 20:59 Last Admin: 09/15/21 21:06 Dose: 20 mg Senna/Docusate Sodium (Docusate Sodium/Senna 50/8.6mg Tab) 2 tab PO HS [facility] Stop: 10/14/21 20:59 Last Admin: 09/15/21 21:05 Dose: 2 tab Sodium Biphosphate/Sodium Phosphate (Sod Phosphate/Sod Biphosphate Enema 132 Ml Btl) 132 ml TN ONE PRN PRN Reason: Constipation Stop: 10/14/21 13:36 Tramadol HCl (Tramadol Hcl 50 Mg Tablet) 50 - 100 mg PO Q4H PRN PRN Reason: Moderate-Severe pain & Pre PT Stop: 10/14/21 13:36 Last Admin: 09/16/21 06:05 Dose: 50 mg Vitamin D (Cholecalciferol 1,000 Units 25 Mcg Tab) 1,000 units PO DAILY [facility] Stop: 10/12/21 08:59 Last Admin: 09/15/21 08:33 Dose: 1,000 units
[2021-09-16] MEDS ORDERED: LACTATED RINGER'S 1,000 ML IV SCH (08:00)
[2021-09-16] MEDS: cefTRIAXone SODIUM 2,000 MG in DEXTROSE 5% 50 ML IV SCH (08:13)
[2021-09-16] MEDS: PANTOprazole 40 MG TAB PO SCH (09:04)
[2021-09-16] MEDS: CHOLECALCIFEROL 1,000 UNITS 25 MCG TAB PO SCH (09:04)
[2021-09-16] MEDS: GABAPENTIN 300 MG CAP PO SCH ×2 (09:04→21:45)
[2021-09-16] MEDS: LANTUS PER UNIT CHARGE SQ SCH ×2 (09:05→21:44)
[2021-09-16] MEDS: hydroCHLOROthiazide 25 MG TAB PO SCH (09:05)
[2021-09-16] MEDS: INSULIN ASPART PER UNIT SC SCH ×4 (09:06→21:44)
[2021-09-16] MEDS: oxyCODONE HCL IR 5 MG TAB (IMMEDIATE RELEASE) PO PRN ×2 (09:09→18:24)
[2021-09-16] MEDS: COLESEVELAM HCL PO SCH ×2 (09:09→18:27)
--- NOTE | 2021-09-16 10:32 | Orthopedic Progress Note ---
Date of Service September 16, 2021 Assessment & Plan (1) Neuroforaminal stenosis of lumbar spine: Plan: At this time we will initiate physical therapy as tolerated. Most likely just bed to chair today. She is being hydrated and treated for UTI. Admission and Anticipated Discharge Date Admission Date: September 12, 2021 Subjective Patient struggling with intermittent back pain but is controlled. Left leg symptoms markedly improved. She has not been out of bed yet secondary to vertigo. Physical Exam Physical Exam: On exam she does have good strength testing lower extremities. She is in bed. Results & Data ([facility]) Vital Signs (Past 12 Hours) Vital Signs Temp Pulse Resp BP BP Pulse Ox O2 Del Method 09/16/21 07:20 Nasal Cannula 09/16/21 07:39 37.4 C 96 H 16 104/63 92 Nasal Cannula 09/16/21 06:02 101 H 114/70 O2 Flow Rate 09/16/21 07:20 2.5 09/16/21 07:39 2.5 09/16/21 06:02
[2021-09-16] MEDS: ENOXAPARIN INJ 40 MG/0.4 ML SYR SQ SCH ×2 (15:22→21:45)
[2021-09-16] MEDS: DOCUSATE SODIUM/SENNA 50/8.6MG TAB PO SCH (21:46)
[2021-09-16] MEDS: PRAVASTATIN SOD 20 MG TAB PO SCH (21:46)
[2021-09-17] MEDS: traMADol HCL 50 MG TABLET PO PRN (06:21)
[2021-09-17 06:22] LABS: Basophils # (auto) 0.03 K/uL (0-0.2); Basophils % (auto) 0.3 %; Eosinophils # (auto) 0.13 K/uL (0-0.50); Eosinophils % (auto) 1.1 %; Hematocrit (blood only) 30.5 % (34.1-44.9); Hemoglobin 9.9 g/dl (12.0-16.0); Immature Granulocytes # (auto) 0.06 K/uL (0.00-0.02); Immature Granulocytes % (auto) 0.5 %; Lymphocytes # (auto) 3.11 K/uL (1.2-3.4); Lymphocytes % (auto) 26.2 %; Mean Corpuscular Hemoglobin 30.9 pg (25.0-34.0); Mean Corpuscular Hgb Conc 32.5 g/dL (32.0-36.0); Mean Corpuscular Volume 95.3 fL (80.0-100.0); Mean Platelet Volume 12.7 fL (9.4-12.3); Monocytes # (auto) 1.33 K/uL (0.24-0.82); Monocytes % (auto) 11.2 %; Neutrophils # (auto) 7.23 K/uL (1.4-6.5); Neutrophils % (auto) 60.7 %; Platelet Count 124 K/uL (130-400); RDW Coefficient of Variation 14.2 % (11.5-14.5); RDW Standard Deviation 49.9 fL (36.4-46.3); White Blood Count 11.89 K/ul (4.8-10.8)
[2021-09-17] MEDS: POLYETHYLENE (MIRALAX) 17 GM PACK PO SCH ×3 (06:22→18:25)
[2021-09-17] MEDS: LEVOTHYROXINE SODIUM 137 MCG TABLET PO SCH (06:23)
[2021-09-17 06:47] LABS: Albumin Globulin Ratio 1.3 (0.9-2); BUN Creatinine Ratio 14.3 (10-20); Bilirubin,Total 1.1 mg/dl (0.2-1.0); Calcium 7.8 mg/dl (8.5-10.1); Creatinine Clr Calc Pharmacy 124.2 ml/min; Est GFR (African American) 110.3 ml/min; Est GFR (Non-African American) 95.1 ml/min; Globulin 2.4 gm/dl (2.5-4.0); Magnesium 1.8 mg/dl (1.7-2.4); Phosphorus 2.3 mg/dl (2.5-4.9); Potassium 4.1 mmol/L (3.5-5.1); Total Protein 5.4 gm/dl (6.0-8.3)
--- NOTE | 2021-09-17 07:40 | Orthopedic Progress Note ---
Date of Service September 17, 2021 Assessment & Plan (1) Lumbar disc herniation with radiculopathy: Plan: Patient is doing well postoperative day #3. Her pain is well controlled. She is having issues with vertigo. They had given her more fluids to help increase her volume. Continue mobilization efforts today continue Zofran as needed for nausea. We will see how she does today hopefully get her home earlier this week. Admission and Anticipated Discharge Date Admission Date: September 12, 2021 Subjective Patient was seen bedside room 320. She is resting comfortably. States that she had episodes of vertigo yesterday and had some nausea as well. She has been a bit slow to move. She has been using her spirometer. Her pain is controlled. She denies any other numbness, tingling, or paresthesias. Physical Exam Physical Exam: On exam she is alert and oriented. Her lower extreme motor exam reveals no focal atrophy or strength 5 out of 5 to detailed muscle testing. Sensation is intact to light touch proprioception is intact. Dressings clean dry and intact. Her calves are supple nontender abdomen soft and nontender. Results & Data ([facility]) Vital Signs (Past 12 Hours) Vital Signs Temp Pulse Resp BP Pulse Ox O2 Del Method O2 Flow Rate 09/16/21 19:45 Nasal Cannula 2.5 09/16/21 21:45 36.7 C 85 18 107/69 98 Nasal Cannula 2
[2021-09-17] MEDS ORDERED: SODIUM PHOSPHATE 3 MMOL/1 ML 5 ML VIAL IV STA (07:42)
[2021-09-17] MEDS ORDERED: SODIUM PHOSPHATE 30 MMOL in SODIUM CHLORIDE 0.9% 500 ML IV ONE (08:00)
[2021-09-17] MEDS: cefTRIAXone SODIUM 2,000 MG in DEXTROSE 5% 50 ML IV SCH (09:34)
[2021-09-17] MEDS: INSULIN ASPART PER UNIT SC SCH ×4 (09:35→21:43)
[2021-09-17] MEDS: GABAPENTIN 300 MG CAP PO SCH ×2 (09:35→21:34)
[2021-09-17] MEDS: PANTOprazole 40 MG TAB PO SCH (09:36)
[2021-09-17] MEDS: CHOLECALCIFEROL 1,000 UNITS 25 MCG TAB PO SCH (09:36)
[2021-09-17] MEDS: ENOXAPARIN INJ 40 MG/0.4 ML SYR SQ SCH ×2 (09:36→21:34)
[2021-09-17] MEDS: COLESEVELAM HCL PO SCH ×2 (09:38→18:22)
[2021-09-17] MEDS: LANTUS PER UNIT CHARGE SQ SCH ×2 (09:39→21:44)
[2021-09-17] MEDS: SODIUM CHLORIDE 0.9% 500 ML IV SCH ×4 (10:30→14:48)
[2021-09-17] MEDS: oxyCODONE HCL IR 5 MG TAB (IMMEDIATE RELEASE) PO PRN (10:50)
[2021-09-17] MEDS: hydroCHLOROthiazide 25 MG TAB PO SCH (10:52)
--- NOTE | 2021-09-17 13:23 | Hospitalist Progress Note ---
Date of Service September 17, 2021 Assessment & Plan (1) Lumbar disc herniation with radiculopathy: (2) UTI (urinary tract infection): (3) Neuroforaminal stenosis of lumbar spine: (4) Low back pain radiating down leg: (5) T2DM (type 2 diabetes mellitus): (6) HTN (hypertension): (7) HLD (hyperlipidemia): (8) Hypothyroidism: Plan This is a 71-year-old female who has significant past medical history of T2DM, HTN, HLD, hypothyroidism who presents to ED secondary to lower back pain with radiation to left thigh since end of July. MRI L Spine: IMPRESSION: Multilevel disc disease with a large posterior disc bulge at L2-L3. There is severe canal stenosis with AP diameter 5 mm, and up to severe bilateral neuroforaminal stenosis. Lumbar disc herniation with radiculopathy Bilateral neuroforaminal stenosis of lumbar spine Left-sided low back pain with radiation to left thigh, correlating with L2 and L3 nerve root no surgical intervention yet but may be considered if no improvement with conservative treatments-per ortho spine (Dr. Herr) Pain improved but not well controlled. Gabapentin and SUMI per pain management Patient unwilling to be discharged for outpatient SUMI as offered. For now trial scheduled Toradol with some valium for additional muscle relaxing effect. Hold narcotics while giving scheduled valium. Will not pursue additional steroids at this time. Mild leukocytosis noted likely a result of recent prednisone. ICE QID - s/p lumbar decompression with laminectomy and fusion with ortho 09/14/2021 - recovering well - pain control - Bowel regimen - PT/OT - recommending inpatient rehab on discharge Urinary Tract Infection - patient with two days of dizziness, decreased appetite, decreased urine output - UA positive for nitrites, WBC - given clinical picture, will treat for UTI with ceftriaxone started 09/16/2021 - IVF for dehydration T2DM chronic, well controlled, a1c 6.4 08/30/21 hold metformin and actos lantus/novolog per protocol while inpatient HTN chronic, at goal. continue HCTZ per home regimen. HLD continue statin pt also on welchol-- but is for diarrhea from hx of cholecystectomy Hypothyroidism chronic, stable. continue Synthroid DVT ppx: Lovenox Dispo: med/surg PCP: Dr. Jadyn Johnson, F[employer] Axel Toledo MD [facility] Medicine Admission and Anticipated Discharge Date Admission Date: September 12, 2021 Subjective This is a 71-year-old female who has significant past medical history of T2DM, HTN, HLD, hypothyroidism who presents to ED secondary to lower back pain with radiation to left thigh since end of July. MRI of lumbar spine showed large posterior disc herniation at L2-L3 with severe canal stenosis and severe bilateral neuroforaminal stenosis. She was trialed with pain management and ortho was consulted. She ultimately was offered decompression surgery with fusion, which was done 09/14/2021 with initial improvement. Seemed to develop UTI post-op, started on ceftriaxone. She reports back pain but no radicular leg pain. She denies chest pain, shortness of breath, n/v/d, abdominal pain. Dizziness is better and she feels less fatigued. Review of Systems Review of Systems: All systems reviewed & are unremarkable except as noted in Subjective All systems reviewed negative except as indicated above. Physical Exam Physical Exam: CONSTITUTIONAL: WNWD, vitals as above, generally well- appearing, NAD EYES: normal conjunctivae, no scleral icterus ENT: external ear and nose normal, MMM NECK: trachea midline RESPIRATORY: clear to auscultation bilaterally, no crackles, rales or wheezes, normal respiratory effort CARDIOVASCULAR: regular rate and rhythm, S1 and 2 heard without murmurs, gallops or rubs, no JVD, no peripheral edema CHEST: inspection of chest was normal GASTROINTESTINAL: soft, nontender, ND, no guarding MUSCULOSKELETAL: strength 5/5 throughout lower extremities, head is normocephalic and atraumatic, lower back and LE exam deferred due to recent surgery and post-op eval by ortho SKIN: warm and dry NEUROLOGIC: patellar DTRs 2+ bilat. CN 2-12 grossly intact, no sensory deficit, normal cognition, normal speech, no tremor, gait was not assessed. PSYCHIATRIC: alert cooperative and oriented to person, place and time. Euthymic mood, makes good eye contact, language grossly intact, recent and remote memory grossly intact. Results & Data Results & Data ([facility]) Vital Signs (Past 12 Hours) Vital Signs Temp Pulse Resp BP Pulse Ox O2 Del Method 09/17/21 10:48 37.3 C 90 16 112/69 93 Room Air 09/17/21 10:48 95 Laboratory Results Short CBC 09/17/21 Range/Units 06:01 WBC 11.89 H (4.8-10.8) K/ul Hgb 9.9 L (12.0-16.0) g/dl Hct 30.5 L (34.1-44.9) % Plt Count 124 L (130-400) K/uL BMP 09/17/21 06:01 Sodium 130 L Potassium 4.1 Chloride 97 L Carbon Dioxide 28 BUN 8 Creatinine 0.56 L Glucose 146 H Calcium 7.8 L Liver Function 09/17/21 Range/Units 06:01 Total Bilirubin 1.1 H (0.2-1.0) mg/dl AST 48 H (13-39) U/L ALT 31 (7-52) U/L Alkaline Phosphatase 108 H (34-104) U/L Albumin 3.0 L (3.4-5.0) gm/dl Medications Administered Current Inpatient Medications Acetaminophen (Acetaminophen 500 Mg Tab) 1,000 mg PO Q8H PRN PRN Reason: MILD Pain Scale 1,2,3 & Pre PT Stop: 10/14/21 13:36 Last Admin: 09/15/21 01:40 Dose: 1,000 mg Al Hydrox/Mg Hydrox/Simethicone (Aluminum/Magnesium Susp 30 Ml Udc) 30 ml PO Q6H PRN PRN Reason: Dyspepsia Stop: 10/14/21 13:36 Bisacodyl (Bisacodyl 10 Mg Supp) 10 mg OK DAILY PRN PRN Reason: Constipation Stop: 10/14/21 13:36 Colesevelam HCl (Colesevelam Hcl) 2 each PO BIDM FERNY Stop: 10/13/21 07:59 Last Admin: 09/17/21 09:38 Dose: Not Given Dextrose (Dextrose 50% 50 Ml Syringe) 25 - 50 ml IV UD PRN; Protocol PRN Reason: Hypoglycemia Protocol Stop: 10/11/21 16:18 Diphenhydramine HCl (Diphenhydramine Capsule 25 Mg Cap) 25 mg PO Q6H PRN PRN Reason: Allergic Rhinitis/Insomnia Stop: 10/14/21 13:36 Enoxaparin Sodium (Enoxaparin Inj 40 Mg/0.4 Ml Syr) 40 mg SQ Q12H FERNY Stop: 10/16/21 13:59 Last Admin: 09/17/21 09:36 Dose: 40 mg Famotidine (Famotidine 20 Mg Tab) 20 mg PO Q12H PRN PRN Reason: Dyspepsia Stop: 10/14/21 13:36 Gabapentin (Gabapentin 300 Mg Cap) 300 mg PO BID FERNY Stop: 10/12/21 12:29 Last Admin: 09/17/21 09:35 Dose: 300 mg Glucagon (Glucagon For Inj 1 Mg Vial) 1 mg SQ UD PRN; Protocol PRN Reason: Hypoglycemia Protocol Stop: 10/11/21 16:18 Glucose (Glucose 40% Gel 15 Gm Tube) 15 - 30 gm PO UD PRN; Protocol PRN Reason: Hypoglycemia Protocol Stop: 10/11/21 16:18 Glucose (Glucose 10 Tab/Tube) 4 - 8 tab PO UD PRN; Protocol PRN Reason: Hypoglycemia Treatment Stop: 10/11/21 16:18 Hydrochlorothiazide (Hydrochlorothiazide 25 Mg Tab) 25 mg PO DAILY FERNY Stop: 10/12/21 08:59 Last Admin: 09/17/21 10:52 Dose: 25 mg Hydromorphone HCl (Hydromorphone Inj 0.5 Mg/0.5 Ml Syr) 0.5 mg IV Q3H PRN PRN Reason: MODERATE Pain (Scale 4,5,6) & Pre PT Stop: 09/28/21 13:36 Hydromorphone HCl (Hydromorphone Inj 1 Mg/Ml Syringe) 1 mg IV Q3H PRN PRN Reason: SEVERE Pain (Scale 7,8,9,10) Stop: 09/28/21 13:36 Hydroxyzine HCl (Hydroxyzine Hcl 25 Mg Tab) 25 mg PO Q8H PRN PRN Reason: Anxiety Stop: 10/14/21 13:36 Lorazepam 0.5 mg/ Syringe 0.5 mls @ 2 mls/min IV Q8H PRN PRN Reason: Sedation/Anxiety Stop: 10/14/21 13:36 Promethazine HCl 12.5 mg/ (Sodium Chloride) 50.5 mls @ 202 mls/hr IV Q6H PRN PRN Reason: Nausea &/or Vomiting Stop: 10/14/21 13:36 Ceftriaxone Sodium 2,000 mg/ (Dextrose) 70 mls @ 140 mls/hr IV Q24H FERNY; Protocol Stop: 09/21/21 07:59 Last Infusion: 07/24/22 10:30 Dose: Infused Sodium Chloride (Nss) 500 mls @ 250 mls/hr IV .Q2H FERNY Stop: 10/17/21 07:44 Last Infusion: 09/17/21 13:16 Dose: Infused Sodium Phosphate 30 mmol/ (Sodium Chloride) 510 mls @ 88 mls/hr IV ONE ONE Stop: 09/17/21 13:47 Last Admin: 09/17/21 10:30 Dose: 88 mls/hr Insulin Aspart (Insulin Aspart Per Unit) 0 units SC ACHS [facility] Stop: 10/14/21 20:59 Last Admin: 09/17/21 13:19 Dose: 1 units Insulin Glargine (Lantus Per Unit Charge) 0 - 10 units SQ BID [facility] Stop: 10/11/21 20:59 Last Admin: 09/17/21 09:39 Dose: 5 units Levothyroxine Sodium (Levothyroxine Sodium 137 Mcg Tablet) 137 mcg PO DAILYBB [facility] Stop: 10/12/21 06:29 Last Admin: 09/17/21 06:23 Dose: 137 mcg Lorazepam (Lorazepam 0.5 Mg Tab) 0.5 mg PO Q8H PRN PRN Reason: Sedation/Anxiety Stop: 10/14/21 13:36 Magnesium Hydroxide (Magnesium Hydroxide Susp 30 Ml Udc) 30 ml PO Q24H PRN PRN Reason: Constipation Stop: 10/14/21 13:36 Metoclopramide HCl (Metoclopramide Hcl Inj 5 Mg/Ml 2 Ml Vial) 10 mg IV Q6H PRN PRN Reason: Nausea &/or Vomiting Stop: 10/14/21 13:36 Miscellaneous (Carbohydrates For Hypoglycemia ) 15 - 30 gm PO UD PRN PRN Reason: Hypoglycemia Protocol Stop: 10/11/21 16:18 Naloxone HCl (Naloxone Hcl 0.4 Mg/1 Ml Vial/Carp) 0.1 mg IV Q5M PRN PRN Reason: Oversedation/Resp depression Stop: 10/14/21 13:36 Ondansetron HCl (Ondansetron Inj 2 Mg/Ml 2 Ml Vial) 4 mg IV Q6H PRN PRN Reason: Nausea &/or Vomiting Stop: 10/14/21 13:36 Ondansetron HCl (Ondansetron 4 Mg Od Tab) 4 mg PO Q6H PRN PRN Reason: Nausea Stop: 10/14/21 13:36 Oxycodone HCl (Oxycodone Hcl Ir 5 Mg Tab (Immediate Release)) 5 - 10 mg PO Q4H PRN PRN Reason: Pain & Pre PT Stop: 09/28/21 13:36 Last Admin: 09/17/21 10:50 Dose: 10 mg Pantoprazole Sodium (Pantoprazole 40 Mg Tab) 40 mg PO DAILY [facility]; Protocol Stop: 10/12/21 08:59 Last Admin: 09/17/21 09:36 Dose: 40 mg Polyethylene Glycol (Polyethylene (Miralax) 17 Gm Pack) 17 gm PO Q6 [facility] Stop: 10/15/21 05:59 Last Admin: 09/17/21 13:15 Dose: Not Given Pravastatin Sodium (Pravastatin Sod 20 Mg Tab) 20 mg PO HS [facility] Stop: 10/11/21 20:59 Last Admin: 09/16/21 21:46 Dose: 20 mg Senna/Docusate Sodium (Docusate Sodium/Senna 50/8.6mg Tab) 2 tab PO HS [facility] Stop: 10/14/21 20:59 Last Admin: 09/16/21 21:46 Dose: 2 tab Sodium Biphosphate/Sodium Phosphate (Sod Phosphate/Sod Biphosphate Enema 132 Ml Btl) 132 ml OK ONE PRN PRN Reason: Constipation Stop: 10/14/21 13:36 Tramadol HCl (Tramadol Hcl 50 Mg Tablet) 50 - 100 mg PO Q4H PRN PRN Reason: Moderate-Severe pain & Pre PT Stop: 10/14/21 13:36 Last Admin: 09/17/21 06:21 Dose: 100 mg Vitamin D (Cholecalciferol 1,000 Units 25 Mcg Tab) 1,000 units PO DAILY [facility] Stop: 10/12/21 08:59 Last Admin: 09/17/21 09:36 Dose: 1,000 units
[2021-09-17] MEDS: ACETAMINOPHEN 500 MG TAB PO PRN (18:28)
[2021-09-17] MEDS: DOCUSATE SODIUM/SENNA 50/8.6MG TAB PO SCH (21:33)
[2021-09-17] MEDS: PRAVASTATIN SOD 20 MG TAB PO SCH (21:34)
[2021-09-18] MEDS: POLYETHYLENE (MIRALAX) 17 GM PACK PO SCH ×3 (01:03→12:41)
[2021-09-18] MEDS: traMADol HCL 50 MG TABLET PO PRN (02:06)
[2021-09-18 05:44] LABS: Basophils # (auto) 0.03 K/uL (0-0.2); Basophils % (auto) 0.3 %; Hematocrit (blood only) 30.2 % (34.1-44.9); Immature Granulocytes # (auto) 0.05 K/uL (0.00-0.02); Immature Granulocytes % (auto) 0.5 %; Lymphocytes # (auto) 2.37 K/uL (1.2-3.4); Lymphocytes % (auto) 24.5 %; Mean Corpuscular Hemoglobin 31.1 pg (25.0-34.0); Mean Corpuscular Hgb Conc 33.1 g/dL (32.0-36.0); Mean Corpuscular Volume 93.8 fL (80.0-100.0); Mean Platelet Volume 12.6 fL (9.4-12.3); Monocytes # (auto) 0.96 K/uL (0.24-0.82); Monocytes % (auto) 9.9 %; Neutrophils # (auto) 6.16 K/uL (1.4-6.5); Neutrophils % (auto) 63.8 %; Platelet Count 137 K/uL (130-400); RDW Coefficient of Variation 14.1 % (11.5-14.5); RDW Standard Deviation 48.3 fL (36.4-46.3); Red Blood Count 3.22 M/uL (3.93-5.22); White Blood Count 9.67 K/ul (4.8-10.8)
[2021-09-18] MEDS: LEVOTHYROXINE SODIUM 137 MCG TABLET PO SCH (05:48)
[2021-09-18 06:08] LABS: BUN Creatinine Ratio 10.2 (10-20); Calcium 8.2 mg/dl (8.5-10.1); Creatinine Clr Calc Pharmacy 141.9 ml/min; Est GFR (African American) 115.2 ml/min; Est GFR (Non-African American) 99.4 ml/min; Magnesium 1.9 mg/dl (1.7-2.4); Phosphorus 2.7 mg/dl (2.5-4.9); Potassium 3.2 mmol/L (3.5-5.1)
[2021-09-18] MEDS ORDERED: POTASSIUM CHLORIDE CRTAB 20 MEQ TABCR PO STA (07:49)
[2021-09-18] MEDS: CHOLECALCIFEROL 1,000 UNITS 25 MCG TAB PO SCH (07:54)
[2021-09-18] MEDS: PANTOprazole 40 MG TAB PO SCH (07:54)
[2021-09-18] MEDS: hydroCHLOROthiazide 25 MG TAB PO SCH (07:54)
[2021-09-18] MEDS: COLESEVELAM HCL PO SCH (07:55)
[2021-09-18] MEDS: cefTRIAXone SODIUM 2,000 MG in DEXTROSE 5% 50 ML IV SCH (07:55)
[2021-09-18] MEDS: ENOXAPARIN INJ 40 MG/0.4 ML SYR SQ SCH (07:57)
[2021-09-18] MEDS: GABAPENTIN 300 MG CAP PO SCH (08:00)
[2021-09-18] MEDS: INSULIN ASPART PER UNIT SC SCH ×2 (08:20→12:17)
[2021-09-18] MEDS: LANTUS PER UNIT CHARGE SQ SCH (08:27)
[2021-09-18] MEDS: oxyCODONE HCL IR 5 MG TAB (IMMEDIATE RELEASE) PO PRN ×2 (08:27→14:33)
--- NOTE | 2021-09-18 08:28 | Orthopedic Progress Note ---
Date of Service September 18, 2021 Assessment & Plan (1) Lumbar disc herniation with radiculopathy: Plan: Patient is postoperative day 5 status post lumbar decompression and fusion. We will DC MORGAN drain. Continue with aggressive bowel regimen. DVT prophylaxis is in the form of teds and SCDs. She is orthopedically stable for discharge to rehab when bed available. Continue physical therapy. Admission and Anticipated Discharge Date Admission Date: September 12, 2021 Subjective Carlyn is postoperative day 5 lumbar decompression instrumented fusion. She has complaints of back pain. Leg symptoms improved. Overall very weak. MORGAN drain output last shift was 10 cc. She is passing flatus but no bowel movement. She is making very slow progress in physical therapy. Currently awaiting authorization for [facility] Review of Systems Review of Systems: All systems reviewed & are unremarkable except as noted in HPI & below Physical Exam Physical Exam: She is lying in bed in no acute distress Alert and oriented x3 Lumbar dressing is clean dry intact with functioning MORGAN drain Strength is intact bilateral lower extremities Calf soft nontender bilateral lower extremities Results & Data ([facility]) Vital Signs (Past 12 Hours) Vital Signs Temp Pulse Resp BP BP Pulse Ox O2 Del Method 09/18/21 07:28 36.9 C 81 16 110/71 94 Nasal Cannula 09/17/21 22:19 36.9 C 90 18 107/72 94 Room Air O2 Flow Rate 09/18/21 07:28 2 09/17/21 22:19
[2021-09-18] MEDS ORDERED: POTASSIUM CHLORIDE 40 MEQ in SODIUM CHLORIDE 0.9% 1000ML 500 ML IV ONE (08:30)
--- NOTE | 2021-09-18 16:14 | Discharge Summary ---
Date of Service September 18, 2021 Admission HPI Per Admitting Provider This is a 71-year-old female who has significant past medical history of T2DM, HTN, HLD, hypothyroidism who presents to ED secondary to lower back pain with radiation to left thigh since end of July. Since then in July she has noticed significant increase in left-sided lower back pain with radiation around left thigh to the level of the left knee. She describes the pain as a, "burning sensation." She denies any numbness or tingling. She was initially seen by PCP for pain who prescribed her a Medrol Dosepak. This did not improve her symptoms and the only worsened. She was then reevaluated and placed on a prednisone pack starting at 60 mg x 3 days. Currently she is on 20 mg. She again feels like this has not alleviated any of her symptoms. She has also been trying scheduled Tylenol twice a day and daily Mobic. She has some relief when lying on her left side with ice. Lying still makes pain better, sitting, standing or movement makes it worse. She has never had anything like this in the past. She did have, "sciatica," to her right leg approximately 2 years ago. She denies any loss of bowel or bladder incontinence. She denies any recent illness, fever, chills, sweats, lightheadedness, dizziness, chest pain, shortness with, cough, nausea, vomiting, abdominal pain, dysuria, increased urgency or frequency with urination, melena or hematochezia. Her appetite is otherwise been normal. Her pain has progressed to the point she is having difficulty walking and requiring assist device with walker. Patient underwent lumbar spine MRI which revealed multilevel disc disease with large posterior disc bulge at L2-L3. There is severe canal stenosis with AP diameter of 5 mm and up to severe bilateral neuroforaminal stenosis. She received IV morphine and IV Dilaudid in ED with minimal relief. Admission Exam Per Admitting Provider Constitutional: WD/WN, vitals as above, NAD, lying flat in bed, pleasant, conversing easily Head: Normocephalic, Atraumatic Eyes: PERRL, conjunctivae normal, anicteric sclerae ENMT: external ear and nose normal, oropharynx normal Neck: trachea midline, no thyromegaly normal visual inspection Respiratory: normal respiratory effort, lungs clear to auscultation, no wheeze, rales, rhonchi. Normal insp/exp effort, no accessory muscle use Cardiovascular: RRR, no murmur, no edema Vessels: no JVD or carotid bruit Chest: normal inspection of chest Abdomen: obese abd, normal bowel sounds, soft, nontender, no hepatosplenomegaly Musculoskeletal: no cyanosis or clubbing, AROM x 3 and strength 5/5, LLE not assessed due to significant pain Skin: no rashes, warm and dry normal turgor Neurologic: PERRL, EOMI, accommodation nl, no face palsy, no dysarthria CN's II-XI intact bilaterally and moves all extremities Psychiatric: A+Ox3, euthymic affect : deferred Principal Diagnosis lumbar disc herniation with stenosis Discharge Exam CONSTITUTIONAL: WNWD, vitals as above, generally well-appearing, NAD EYES: normal conjunctivae, no scleral icterus ENT: external ear and nose normal, MMM NECK: trachea midline RESPIRATORY: clear to auscultation bilaterally, no crackles, rales or wheezes, normal respiratory effort CARDIOVASCULAR: regular rate and rhythm, S1 and 2 heard without murmurs, gallops or rubs, no JVD, no peripheral edema CHEST: inspection of chest was normal GASTROINTESTINAL: soft, nontender, ND, no guarding MUSCULOSKELETAL: strength 5/5 throughout lower extremities, head is normocephalic and atraumatic, lower back and LE exam deferred due to recent surgery and post-op eval by ortho SKIN: warm and dry NEUROLOGIC: patellar DTRs 2+ bilat. CN 2-12 grossly intact, no sensory deficit, normal cognition, normal speech, no tremor, gait was not assessed. PSYCHIATRIC: alert cooperative and oriented to person, place and time. Euthymic mood, makes good eye contact, language grossly intact, recent and remote memory grossly intact. Discharge Data Allergies Allergy/AdvReac Type Severity Reaction Status Date / Time Sulfa (Sulfonamide Allergy Mild RASH Verified 09/14/21 08:16 Antibiotics) Consultations 09/11/21 13:37 ED Decision to Admit Stat 09/11/21 13:40 Consult Orthopedic Surgery Routine 09/12/21 08:27 Consult Pain Management Routine Procedures Performed Operation Date: 09/14/21 09:15 Actual Procedures p L2-L4 Decompression and Fusion, Interbody fusion L2-L3 and L3-L4, Spinal Cord Monitoring, Application of I-Factor. (Not Applicable) - Timothy Herr, DO Ordered Studies 09/11/21 08:12 MRI Lumbar Spine [MR lumbar spine wo con] Stat 09/14/21 09:15 FL lumbar spine 2-3V Routine Hospital Course (1) Lumbar disc herniation with radiculopathy: (2) UTI (urinary tract infection): (3) Neuroforaminal stenosis of lumbar spine: (4) Low back pain radiating down leg: (5) T2DM (type 2 diabetes mellitus): (6) HTN (hypertension): (7) HLD (hyperlipidemia): (8) Hypothyroidism: Plan This is a 71-year-old female who has significant past medical history of T2DM, HTN, HLD, hypothyroidism who presents to ED secondary to lower back pain with radiation to left thigh since end of July. MRI L Spine: IMPRESSION: Multilevel disc disease with a large posterior disc bulge at L2-L3. There is severe canal stenosis with AP diameter 5 mm, and up to severe bilateral neuroforaminal stenosis. Lumbar disc herniation with radiculopathy Bilateral neuroforaminal stenosis of lumbar spine Left-sided low back pain with radiation to left thigh, correlating with L2 and L3 nerve root no surgical intervention yet but may be considered if no improvement with conservative treatments-per ortho spine (Dr. Herr) Pain improved but not well controlled. Gabapentin and SUMI per pain management Patient unwilling to be discharged for outpatient SUMI as offered. For now trial scheduled Toradol with some valium for additional muscle relaxing effect. Hold narcotics while giving scheduled valium. Will not pursue additional steroids at this time. Mild leukocytosis noted likely a result of recent prednisone. ICE QID - s/p lumbar decompression with laminectomy and fusion with ortho 09/14/2021 - recovering well - pain control - Bowel regimen - PT/OT - recommending inpatient rehab on discharge Urinary Tract Infection - patient with two days of dizziness, decreased appetite, decreased urine output - UA positive for nitrites, WBC - given clinical picture, will treat for UTI with ceftriaxone started 09/16/2021 - IVF for dehydration T2DM chronic, well controlled, a1c 6.4 08/30/21 hold metformin and actos lantus/novolog per protocol while inpatient HTN chronic, at goal. continue HCTZ per home regimen. HLD continue statin pt also on welchol-- but is for diarrhea from hx of cholecystectomy Hypothyroidism chronic, stable. continue Synthroid DVT ppx: Lovenox Dispo: med/surg PCP: Dr. Jadyn Johnson DO FULL CODE Axel Toledo MD [facility] Total Time Total Time Spent Total Time Spent (In Minutes): 29 minutes Total Time Includes: Examination of the Patient, Discharge Planning, Medication Reconciliation and Communication With Other Providers Discharge Plan Discharge Items Patient Disposition: Transfer Inpatient Rehab Fac Reason For Visit: INTRACTABLE BACK PAIN, L2-3 DISC BULGE Discharge Diagnosis: lumbar stenosis Activity: As commented below Lifting: No more than 5 pounds Non-emergency contact: Primary Care Provider and Specialist Call non-emergency contact if: you have any medication questions and your symptoms worsen Follow-up/Referrals: Timothy Herr DO [Surgeon] - Jadyn Johnson DO [Primary Care Provider] - Diet: Carb Consistent or DM2 and Heart Healthy Addtl Attending Provider Instructions: ACTIVITY RECOMMENDATIONS: SELF CARE INSTRUCTIONS AFTER THORACIC/LUMBAR FUSIONS 1. You may walk to your tolerance. It is good exercise for your legs and back. Expect some back and intermittent leg aches and pains. 2. You may perform "counter-top" level activities (make a sandwich, praful with a project, etc.). 3. No bending or lifting of more than 10 pounds or back twisting of any nature (roll like a log when turning in bed). 4. You may ride in a car for 20-30 minutes at a time. No driving until after your first visit with your doctor. 5. Frequent changes of position and restricting sitting to 30 minutes at a time will help limit the amount of back spasms and stiffness you may experience. 6. You may discontinue the use of ambulatory aids (cane, crutches, etc.) once your strength and confidence allow. 7. You may residence leasing agent the shower and let water strike your incision when you arrive home at least once daily. Do not take a tub bath, sit in a hot tub or go into a swimming pool until after your first recheck in the office. SPECIAL CARE INSTRUCTIONS: VERY IMPORTANT TO READ AND REVIEW A. Your surgical incision has been closed with a cosmetic suture under the skin that will dissolve in about 6 weeks. In 14 days, you can use a pair of clean scissors and cut the suture that is left outside of the skin at the ends of your incision. 1. The small skin tapes can be removed 7 days after surgery if they have not fallen off by that point. 2. You may keep the wound open to air as much as possible to promote healing after post-op day number 5 unless told otherwise by your doctor. 3. If you think the wound looks like it is becoming infected (redness or worsening drainage) and/or you are experiencing fever, chill or worsening back pain and muscle spasms, contact the office so that we may evaluate you as soon as possible. B. Complications are uncommon, but please contact us if you have any signs or symptoms of: 1. wound infection (fever higher than 102.5 degrees F, redness, separation of wound, drainage, or increasing pain from the incision) 2. blood clots in legs (pain, swelling, redness and warmth in legs) 3. urinary tract infection (fever higher than 102.5 degrees F, burning upon urination or increased frequency of urination) 4. nerve problems (inability to walk on your toes or heels, numbness, loss of bowel or bladder control) 5. any other symptoms that concern you C. Please call the office at if you have any concerns or questi ons about your operation or recovery. D. No smoking! Smoking drastically decreases the chance of a solid fusion. E. Do not take any anti-inflammatory medications (Indocin, Advil, Motrin, Aspirin, Naprosyn, etc.) as these may inhibit the chance of a solid fusion. Tylenol is okay to take for pain. MANAGING PAIN AFTER SPINAL SURGERY 1. Narcotic medication is intended for short-term use and will be provided for surgical pain. Surgical pain usually lasts for a period of 4-6 weeks. Narcotic medication includes Percocet, Vicodin, Darvocet, Tylenol #3 or Lortab. 2. Longer-term pain is more appropriately treated with non-narcotic medication such as Tylenol ES. 3. Muscle spasm is not appropriately treated with narcotics. Muscle relaxers such as Soma, Flexeril or Skelaxin can be used along with Tylenol ES. 4. Remember that we all live with some "aches and pains". This is not unusual or uncommon after an injury or as we get older. a. Back pain is expected and may include muscle spasms for 4 to 6 weeks after surgery. The pain should gradually improve. If the pain worsens for no apparent reason, please contact the office. b. Intermittent leg pain may also be experienced and should not be concerned about unless it worsens for no apparent reason. If so, please contact the office. 5. We will provide appropriate medication within the normal guidelines of their prescribed use. We will also be very cautious and aware of potential abuse and extended duration of patients' medication needs. a. Pain medications are for your comfort and to assist with sleep and rest so that the tissue can heal. They are not provided in order to return to normal activity and should not be used through the day. To do so or worsening pain at night can result from ongoing tissue damage and development of tolerance to the prescribed medicine. 6. Please allow 2-3 days to process refills. Prescriptions will not be mailed but must be picked up at the office. FOLLOW UP VISIT: Keep your scheduled follow-up appointment. Any questions, please call the office at . Pending Studies at Discharge: No Stand-Alone Forms: My [facility] [address] Skilled Items Patient informed of condition?: Yes DNR: No Discharge Level of Care: Acute rehab Communicable Disease: No Discharge Prognosis: Stable Lines: None Urinary Catheter: No Medications and DC Order Prescriptions: New gabapentin 300 mg Capsule 300 mg PO BID 30 Days Qty: 60 0RF hydroxyzine HCl 25 mg Tablet 25 mg PO Q8H PRN (Reason: anxiety) 30 Days Qty: 20 0RF naloxone 0.4 mg/mL Solution 0.1 mg IV Q5M PRN (Reason: opioid reversal) 30 Days Qty: 25 0RF oxycodone 5 mg Tablet 5 - 10 mg PO Q4H PRN (Reason: severe pain (scale score 7-10)) 5 Days Qty: 20 0RF tramadol 50 mg Tablet 50 - 100 mg PO Q4H PRN (Reason: moderate pain (scale score 5-6)) 10 Days Qty: 20 0RF polyethylene glycol 3350 [Miralax] 17 gram Powder In Packet 17 g PO Q6 Qty: 30 0RF sennosides-docusate sodium [Senokot-S] 8.6-50 mg Tablet 2 tab PO HS Qty: 30 0RF famotidine 20 mg Tablet 20 mg PO Q12H PRN (Reason: reflux) Qty: 30 0RF magnesium hydroxide [Milk of Magnesia] 400 mg/5 mL Suspension 30 ml PO Q24H PRN (Reason: constipation) Qty: 355 0RF bisacodyl 10 mg Suppository 10 mg DC DAILY PRN (Reason: constipation) Qty: 50 0RF Continued pioglitazone 15 mg Tablet 15 mg PO DAILY levothyroxine 137 mcg Tablet 137 mcg PO DAILY meloxicam 15 mg Tablet 15 mg PO DAILY colesevelam [WelChol] 625 mg Tablet 1,250 mg PO BID metformin 1,000 mg Tablet 1,000 mg PO BIDWMEAL pravastatin 20 mg Tablet 20 mg PO HS hydrochlorothiazide 25 mg Tablet 25 mg PO DAILY cholecalciferol (vitamin D3) [Vitamin D3] 25 mcg (1,000 unit) Capsule 25 mcg PO DAILY omeprazole 20 mg Capsule,Delayed Release(Dr/Ec) 20 mg PO DAILY Discharge Orders: Discharge Order (Routine); Ordered 09/18/21 Ordered By: Axel Toledo Admission Data Admit Date/Time: 09/12/21 18:06 Attending Provider: Axel Toledo Admit Provider: Reggie Perez Primary Care Provider: Jadyn Johnson Other Providers: Reggie Perez ; Timothy Herr ; Elin Velazquez ; [facility] Other Interventions: Discharge Summary Assessment (RN) Last Done: 09/18/21 10:41
== END 2021-09-18 16:09 | DRG 454 ==
LOC: ED 07:43 → EDINP 07:43 → SUATTDRO 13:40 → EDINP 16:19 → 3E 20:09 → SUATTDRO 09-12 18:06

== ENCOUNTER 2023-01-21 07:58 | Inpatient (IN) ==
--- NOTE | 2022-12-31 10:35 | PAT Medication Instructions ---
Medication Instructions Date of Service December 31, 2022 Home Medications cholecalciferol (vitamin D3) 25 mcg (1,000 unit) capsule (Vitamin D3) 25 mcg PO QAM colesevelam 625 mg tablet (WelChol) 1,250 mg PO BID hydrochlorothiazide 25 mg tablet 25 mg PO QAM metformin 1,000 mg tablet 1,000 mg PO BIDWMEAL pioglitazone 15 mg tablet 15 mg PO QAM acetaminophen 650 mg tablet 650 mg PO BID PRN Pain colchicine 0.6 mg tablet 0.6 mg PO UD PRN prn levothyroxine 150 mcg tablet 150 mcg PO QAM STOP taking 48 hours before surgery colesevelam 625 mg tablet (WelChol) 1,250 mg PO BID colchicine 0.6 mg tablet 0.6 mg PO UD PRN prn DO NOT take the morning of surgery cholecalciferol (vitamin D3) 25 mcg (1,000 unit) capsule (Vitamin D3) 25 mcg PO QAM hydrochlorothiazide 25 mg tablet 25 mg PO QAM metformin 1,000 mg tablet 1,000 mg PO BIDWMEAL pioglitazone 15 mg tablet 15 mg PO QAM Take morning of surgery With a small sip of water, OTHERWISE NOTHING TO EAT OR DRINK AFTER MIDNIGHT: acetaminophen 650 mg tablet 650 mg PO BID PRN Pain (if needed) levothyroxine 150 mcg tablet 150 mcg PO QAM Take evening before surgery acetaminophen 650 mg tablet 650 mg PO BID PRN Pain (if needed) Other Notes If you have any questions please call us at [phone] or [phone] or [phone] or [phone]
--- NOTE | 2023-01-07 14:30 | Anesthesiology Consultation ---
Date of Service January 07, 2023 Assessment & Plan (1) Encounter for pre-operative examination: - Check BSG AM DOS - Infectious disease screening: Per assessment on 01/07/23: No known infectious disease contacts or current infectious disease symptoms. No noted Covid positive test result in past 90 days. - S/P L2-L4 decompression/fusion (09/14/21): Grade view 1, Garcia#2, ETT 7.0 at [facility] Chart Review Chart Review: Acceptable Risk for Surgery and Patient seen in Pre Admission Testing Teaching & Discussion Pre-Anesthesia Teaching/Discussion Notes: Instructed NPO after midnight before surgery,except medications with 15 cc of water. Medication instructions provided according to the PAT guidelines. History Surgery Operation Date: 01/21/23 09:35 Proposed Procedures p L4-S1 Decompression, L2-S1 Fusion, L2-L4 Hardware Removal, Spinal Cord Monitoring - Timothy Herr, Height/Weight Height: 5 ft 6 in Weight: 110.1 kg Allergies Allergy/AdvReac Type Severity Reaction Status Date / Time Sulfa (Sulfonamide Allergy Mild Rash Verified 12/31/22 12:15 Antibiotics) tramadol AdvReac Mild Auditory Verified 12/31/22 12:15 hallucinations Medications Home Medications Medication Instructions Recorded Confirmed Last Taken cholecalciferol (vitamin D3) 25 25 mcg PO QAM 09/11/21 12/28/22 Unknown mcg (1,000 unit) capsule (Vitamin D3) colesevelam 625 mg tablet (WelChol) 1,250 mg PO BID 09/11/21 12/28/22 Unknown hydrochlorothiazide 25 mg tablet 25 mg PO QAM 09/11/21 12/28/22 Unknown metformin 1,000 mg tablet 1,000 mg PO BIDWMEAL 09/11/21 12/28/22 Unknown pioglitazone 15 mg tablet 15 mg PO QAM 09/11/21 12/28/22 Unknown acetaminophen 650 mg tablet 650 mg PO BID PRN Pain 12/28/22 12/28/22 Unknown colchicine 0.6 mg tablet 0.6 mg PO UD PRN prn 12/28/22 12/28/22 Unknown levothyroxine 150 mcg tablet 150 mcg PO QAM 12/28/22 12/28/22 Unknown Past Medical History Medical History History of COVID-19 03/2022- mild symptoms Morbid obesity Neuroforaminal stenosis of lumbar spine Lumbar disc herniation with radiculopathy Hypothyroidism HLD (hyperlipidemia) HTN (hypertension) T2DM (type 2 diabetes mellitus) Exercise / Class Metabolic Activity III < 4 Walking/Shop/Light housework Past Family History Family History Mother Sclerosing cholangitis Father Alcohol use disorder Past Surgical History Surgical History Nausea and vomiting after administration of anesthetic agent Hx of bilateral cataract extraction History of lumbar spinal fusion L2-L4 decompression/fusion (09/14/21): Grade view 1, Garcia#2, ETT 7.0 at [facility] Hx of dilation and curettage Hx of arthroscopy of left knee meniscus injury Hx of cholecystectomy Hx of tonsillectomy History of x2 History of total knee replacement Left 2012, Right 2006 Past Anesthesia History No Hx of Anesthesia Complications and No Family Hx of Anesthesia Complications History of PONV History of PONV and Hx of Motion Sickness Social History Smoking Status: Never smoker Do You Dip or Chew Tobacco: No Hx Alcohol Use: No Hx Substance Use: No substance use type: does not use Review of Systems Patient denies chest pain, shortness of breath, fever, chills, cough, wheezing, palpitations. Physical Exam Vital Signs VITALS BP 118/72 P 72 TEMP 98.2 SP02 96%RA RESP 16 PHYSICAL Mildly decreased cervical extension range of motion. Full TMJ range of motion. TMD 3 finger breaths Mallampati Score 2 Dentition: full upper denture, missing lower molars Lungs: clear throughout to auscultation Cardiac: regular rate and rhythm, I/ systolic murmur Spine: normal Carotid arteries: negative bruit Extremities: no LE edema Lab Results Anesthesia Preop Results Results Anesthesia Widget: PT 10.8 Seconds (9.0-12.0) 01/07/23 PTT 27.2 Seconds (21.0-31.0) 01/07/23 INR 1.0 (0.9-1.1) 01/07/23 Urine Color Yellow 01/07/23 Urine Appearance Clear (Clear) 01/07/23 Urine pH 6.5 (4.5-7.5) 01/07/23 Urine Specific [place] 1.012 (1.000-1.030) 01/07/23 Urine Protein Negative (Negative) 01/07/23 Urine Glucose (UA) Negative (Negative) 01/07/23 Urine Ketones Negative (Negative) 01/07/23 Urine Blood Negative (Negative) 01/07/23 Urine Nitrite Negative (Negative) 01/07/23 Urine Bilirubin Negative (Negative) 01/07/23 Urine Urobilinogen Negative (Negative) 01/07/23 Urine Leukocyte Esterase 2+ (Negative) H 01/07/23 Urine WBC (Auto) 10-30 /hpf (0-5) H 01/07/23 Urine RBC (Auto) 0-4 /hpf (0-4) 01/07/23 Urine Hyaline Casts (Auto) 0 /lpf (0-5) 01/07/23 Urine Epithelial Cells (Auto) >30 /lpf (0-5) H 01/07/23 Urine Bacteria (Auto) Negative (Negative) 01/07/23 Blood Type O Negative 01/07/23 Antibody Screen NEGATIVE 01/07/23 Testing Laboratory Results 12/31/22 WBC 6.8 H/H 14.2/42.0 PLATELETS 195 SODIUM 138 POTASSIUM 3.8 CHLORIDE 104 CO2 31.0 BUN 11.0 CREATININE 0.80 GLUCOSE 98 HGBA1C 5.7% TSH 12.900 FREE T4 0.97 Electrocardiogram Date: 01/07/23 NSR at 73bpm. Rightward axis. Low voltage QRS. No significant change compared to 09/13/2021 per circulation tender comparison. Chest X-Ray Date: 01/07/23 FINDINGS: Posterior fixation hardware is seen in the lumbar spine. Calcified aortic knob is seen. The lungs are clear. No evidence of pleural effusion or pneumothorax. IMPRESSION: No acute chest disease.
[~2023-01-21 07:58] MED LIST: ACETAMINOPHEN 500 MG TAB PO SCH; GABAPENTIN 300 MG CAP PO SCH; LR 15ML/HR IV SCH; LR 60ML/HR IV SCH; ceFAZolin 2000MG 2,000 MG/15 ML SYR IV SCH
--- OUTSIDE RECORDS SUMMARY | 2023-01-21 08:06 | External Medical Summary | Summary of Care ---
Author Name Unknown Organization [facility] Address [address] [place] [place] [address] Phone [phone] Care Team Providers Care Heater Worker Name Role Phone Jadyn Johnson DO Primary Care Provider +1- [phone] Reason for Visit * Reason Onset Date Comments Test Results 01/10/2023 UA Encounter Details Date Type Department Care Team (Late st Contact Info) Description 01/10/2023 Telephone Family Practice [facility], [place] [address] [facility] [place] [address] [facility] [address] [facility] [address] Test Results (UA) Allergies Active Allergy Reactions Criticality Noted Date Comments Sulfa Antibiotics Rash Low 08/07/2012 Tramadol 10/06/2021 hullicinations documented as of this encounter (statuses as of 01/10/2023) Medications Medication Sig Dispensed Refills Start Date End Date Status VITAMIN D 1000 UNITS PO CAPS Take 2 Capsules by mouth. 0 Active Amoxicillin 500 MG Oral Capsule (Amoxil) Take 1 Capsule by mouth once as needed for Other (dental work). As directed prior to dental work.- Take 4 tablets prior to procedure 4 Capsule 1 02/21/2021 Active Colchicine 0.6 MG Oral Tablet Take 1 Tablet by mouth daily as needed for Other (gout). 0 Active hydroCHLOROthiazide 25 MG Oral Tablet (Hydrodiuril)Indicati ons:HTN, goal below 140/90 Take 1 Tablet by mouth in the morning. 90 Tablet 3 07/06/2022 Active Levothyroxine Sodium 150 MCG Oral Tablet (Synthroid)Indication s:Acquired hypothyroidism Take 1 Tablet by mouth in the morning. (at least 30 min prior to breakfast or other meds). 90 Tablet 3 07/06/2022 Active Pioglitazone HCl 15 MG Oral Tablet (Actos)Indications:Ty pe 2 diabetes mellitus without complication, without long-term current use of insulin (HCC) Take 1 Tablet by mouth in the morning. 90 Tablet 3 07/06/2022 Active metFORMIN HCl 1000 MG Oral Tablet (Glucophage) Take 1 Tablet by mouth 2 times a day with morning and evening meals. 180 Tablet 3 07/06/2022 Active methylPREDNISolone 4 MG Oral Tablet Therapy Pack (Medrol Dosepack) follow package directions 21 Tablet 0 09/20/2022 Active documented as of this encounter (statuses as of 01/10/2023) Active Problems Problem Noted Date Diagnosed Date Severe obesity with body mas s index (BMI) of 35.0 to 39.9 with serious comorbidity 03/08/2022 Lumbar degenerative disc disease 08/18/2021 Type 2 diabetes mellitus wit hout complication, without long-term current use of insulin 02/10/2019 Acquired hypothyroidism 02/10/2019 Mixed dyslipidemia 02/10/2019 HTN, goal below 140/90 02/10/2019 documented as of this encounter (statuses as of 01/10/2023) Resolved Problems Problem Noted Date Diagnosed Date Resolved Date Morbid obesity with body mas s index of 45.0-49.9 in adult 07/11/2020 08/18/2021 Body mass index (BMI) of 40. 0 to 44.9 in adult 03/07/2020 03/08/2022 Overview: Per Obesity protocol Morbid obesity with body mas s index of 40.0-44.9 in adult 02/10/2019 02/16/2019 Morbid obesity with body mas s index of 45.0-49.9 in adult 02/10/2019 03/10/2020 Overview: Per Obesity protocol Family history of breast cancer 08/10/2012 02/10/2019 Overview: MGM nd Maternal Aunt both Dx postmenopausal documented as of this encounter (statuses as of 01/10/2023) Immunizations Name Administration Dates Next Due COVID-19 mRNA, LNP-s, No Pre serve, 2-Dose Series (Moderna) 12/16/2020,05/28/2020,04/30/2020 COVID-19, mRNA, LNP-s, PF, B ooster, 100mcg/0.5mg (Moderna) 05/29/2021 Pneumococcal Conjugate Vacc, 13 Valent (Prevnar) 11/24/2017 Pneumococcal Conjugate Vacci ne, 7 Valent 11/24/2018 Pneumococcal Polysaccharide PPV23 (Pneumovax) 12/23/2018 Season Influenza, Quad, PF, Adjuvanted, 65+ Yrs, IM (FLUAD) 11/17/2019 Seasonal Influenza Virus Vac cine, Unspecified Formulation 11/30/2021,11/27/2019,11/17/2019,11/25 Seasonal Influenza, Trivalen t, Adjuvanted, 65+ yrs 11/25/2020,11/27/2019,11/25/2018 TD - Tetanus/Diptheria (ADULT) 02/08/2022 TDAP (age 11 and older)(Adacel) 11/02/2011,02/25 Zoster Vaccine Recombinant (Shingrix) 12/24/2018 ,11/22/2018,09/10/2018 documented as of this encounter Social History Tobacco Use Types Packs/Day Years Used Date Smoking Tobacco: Never Smokeless Tobacco: Never Alcohol Use Standard Drinks/Week Comments No 0 (1 standard drink = 0.6 oz pur e alcohol) PHQ-2 Answer Date Recorded PHQ-2 Score 0 05/01/2019 Hunger Vital Sign Answer Date Recorded Within the past 12 months, y ou worried that your food would run out before you got the money to buy more. Never true 01/03/20 23 Within the past 12 months, t he food you bought just didn't last and you didn't have money to get more. Never true 01/02/2023 Sex and Gender Information Value Date Recorded Sex Assigned at Female 01/02/2023 9:54 PM EST Gender Identity Female 01/02/2023 9:54 PM EST Sexual Orientation Straight 01/02/2023 9: 54 PM EST Job Start Date Occupation Industry Not on file Not on file Not on file documented as of this encounter Miscellaneous Notes * Telephone Encounter - Richelle Conn LPN - 01/10/2023 4:46 PM EST No labs noted from [facility]. Will await lab results * Telephone Encounter - Carlyn Sanchez OSA - 01/10/2023 10:18 AM EST Patient had preop labs done at [facility] on 01/07. Pt is asking if Dr. Johnson can review her UA. Records requested from [facility]. documented in this encounter Plan of Treatment Upcoming Encounters Date Type Department Care Team (Late st Contact Info) Description 01/15/2023 8:00 AM EST [facility] [address] [place] [address] Jadyn Johnson DO [address] [place] [address] Health Maintenance Due Date Last Done Comments Hepatitis C Screening 1970 Cologuard 1997 Sigmoidoscopy 1997 Hepatitis B (1 of 3 - Risk 3-dose series) 2012 Fecal Occult Blood Test 08/20/2014 08/20/2013, 08/07 Depression Screening 04/30/2020 05/01/2019 Albumin/Creatinine Ratio 02/26/2023 023, 02/22/2021, 08/13/2019 B-12 02/26/2023 02/26/2022 Diabetic Eye Exam 03/02/2023 03/02/2022, , 03/02/2022, Additional history exists HbA1c 07/01/2023 12/31/2022, 05/0 06/2022, 02/26/2022, Additional history exists Diabetic Foot Exam 07/07/2023 07/06/2022, 0 08/26/2020, 08/18/2019 Mammogram 11/28/2023 11/27/2022, 10/26, 07/20/2021, Additional history exists GFR 01/01/2024 12/31/2022, 06/2022, 02/26/2022, Additional history exists TSH 01/01/2024 12/31/2022, 03/28, 02/26/2022, Additional history exists DXA Scan 09/15/2026 09/16/2019, 09/16/2019 Lipid Panel 01/01/2028 12/31/2022, 0 06/2022, 02/26/2022, Additional history exists Colonoscopy 04/03/2029 04/03/2019, 04/03/2019 Colorectal Cancer Screening 04/03/2029 DTaP,Tdap,and Td Vaccines (4 - Td or Tdap) 02/09/2032 02/08/2022, 11/02/2011, 02/25/2011 Pneumococcal Vaccine: 65+ Years Completed 12/23/2018, 11/24/2017 Zoster Vaccines Completed 12/24/2018, 10/27, 09/10/2018 COVID-19 Vaccine Completed 11/17/2022, 05/2021, 12/16/2020, Additional history exists Influenza Vaccine (FLU shot) Completed 10/2022, 11/30/2021, 11/30/2021, Additional history exists GARDASIL-HPV IMMUNIZATION SERIES Aged Out No longer eligible based on patient's age to complete this topic MENINGOCOCCAL (MENACTRA/MENVEO) Aged Out No longer eligible based on patient's age to complete this topic documented as of this encounter Medical Devices Not on filedocumented as of this encounter Care Teams Heater Worker Relationship Specialty Start Date End Date Jadyn Johnson DO [address] [facility] [place] [address] PCP - General Family Medicine 02/10/19 documented as of this encounter
--- OUTSIDE RECORDS SUMMARY | 2023-01-21 08:06 | External Medical Summary | Summary of Care ---
Author Name Unknown Organization [facility] Address [address] [facility] [place] [address] Phone [phone] Care Team Providers Care Tierce Filler Name Role Phone Jadyn Johnson DO Primary Care Provider +1- [phone] Encounter Details Date Type Department Care Team (Late st Contact Info) Description 01/07/2023 Result Scan Unspecified Department <No scans attached> Allergies Active Allergy Reactions Criticality Noted Date Comments Sulfa Antibiotics Rash Low 08/07/2012 Tramadol 10/06/2021 hullicinations documented as of this encounter (statuses as of 01/11/2023) Medications Medication Sig Dispensed Refills Start Date [...] as of this encounter (statuses as of 01/11/2023) Active Problems Problem Noted Date Diagnosed Date Severe obesity with body mas s index (BMI) of 35.0 to 39.9 with serious comorbidity 03/08/2022 Lumbar degenerative disc disease 08/18/2021 Type 2 diabetes mellitus wit hout complication, without long-term current use of insulin 02/10/2019 Acquired hypothyroidism 02/10/2019 Mixed dyslipidemia 02/10/2019 HTN, goal below 140/90 02/10/2019 documented as of this encounter (statuses as of 01/11/2023) Resolved Problems Problem Noted Date Diagnosed Date [...] as of this encounter (statuses as of 01/11/2023) Immunizations Name Administration Dates Next Due COVID-19 [...] on file documented as of this encounter Plan of Treatment Upcoming Encounters Date Type Department Care Team (Late st Contact Info) Description 01/15/2023 8:00 AM EST Office Visit Family Practice [address] [place] [address] Jadyn Johnson DO [address] [place] [address] Health Maintenance Due Date Last Done Comments [...] 07/20/2021, Additional history exists GFR 01/01/2024 12/31/2022, 05/0 06/2022, 02/26/2022, Additional history exists TSH 01/01/2024 12/31/2022, 03/28, 02/26/2022, Additional history exists DXA Scan 09/15/2026 09/16/2019, 09/16/2019 Lipid Panel 01/01/2028 12/31/2022, 05/0 06/2022, 02/26/2022, Additional history exists Colonoscopy 04/03/2029 [...] Not on filedocumented as of this encounter Procedures Procedure Name Priority Date/Time Associated Diagnosis Comments EKG SCANNED RESULT 01/07/2023 documented in this encounter Results * EKG SCANNED RESULT (01/07/2023) 01/07/2023 No Physician Data Unknown EKG documented in this encounter Care Teams Tierce Filler Relationship Specialty Start Date End Date Jadyn Johnson DO [address] [facility] [place] [address] PCP - General Family Medicine 02/10/19 documented as of this encounter
--- OUTSIDE RECORDS SUMMARY | 2023-01-21 08:06 | External Medical Summary | Summary of Care ---
Author Name Unknown Organization [facility] Address [address] [facility] [place] [address] Phone [phone] Care Team Providers Care Pulverizer Tender Name Role Phone Jadyn Johnson DO Primary Care Provider +1- [phone] Reason for Visit * Reason Onset Date Comments Test Results 01/10/2023 UA Encounter Details Date Type Department Care Team (Late st Contact Info) Description 01/10/2023 Telephone Family Practice [facility], [place] [address] [facility] [place] [address] [facility] [address] [facility] [address] Test Results (UA) Allergies Active [...] 4:46 PM EST No labs noted from [facility]. Will await lab results * Telephone Encounter - Carlyn Sanchez OSA - 01/10/2023 10:18 AM EST Patient had preop labs done at [facility] on 01/07. Pt is asking if Dr. Johnson can review her UA. Records requested from [facility]. documented in this encounter Plan of Treatment Upcoming Encounters Date Type Department Care Team (Late st Contact Info) Description 01/15/2023 8:00 AM EST [facility] [address] [place] [address] Jadyn Johnson DO [address] [place] [address] Health Maintenance Due Date Last Done Comments [...] filedocumented as of this encounter Care Teams Pulverizer Tender Relationship Specialty Start Date End Date Jadyn Johnson DO [address] [facility] [place] [address] PCP - General Family Medicine 02/10/19 documented as of this encounter
--- OUTSIDE RECORDS SUMMARY | 2023-01-21 08:06 | External Medical Summary | Summary of Care ---
Author Name Unknown Organization [facility] Address [address] [facility] [address] Phone [phone] Care Team Providers Care Crusher Setter Name Role Phone Jadyn Johnson DO Primary Care Provider +1- [phone] Reason for Visit * Reason Onset Date Comments Advice 01/02/2023 Encounter Details Date Type Department Care Team (Late st Contact Info) Description 01/02/[address] [place] [address] Duy Anaya PA-C [address] [facility] [place] [address] Advice Allergies Active Allergy Reactions Criticality Noted Date [...] encounter Miscellaneous Notes * Telephone Encounter - Carlyn Sanchez, ERIC - 01/10/2023 10:16 AM EST Please send new levothyroxine script to [facility] pharmacy. * Telephone Encounter - Jazmine Baez LPN - 01/09/2023 2:34 PM EST Patient made aware, she confirmed she is taking Levothyroxine 150mcg. Please send new prescription to the [facility]. * Telephone Encounter - Jadyn Johnson DO - 01/06/2023 7:56 AM EST Ok to start new synthroid medication In future please forward messages to provider who is reviewing labs not just pcp * Telephone Encounter - Chel Packer OSA - 01/04/2023 1:17 PM EST Patient has been notified of the message. Patient stated that she has an upcoming surgery on 01/21/23, would like to know if she should start a new medication dose before then. Please advise. * Telephone Encounter - Richelle Conn LPN - 01/02/2023 2:44 PM EST Message sent * Telephone Encounter - Duy Anaya PA-C - 01/02/2023 10:09 AM EST Lab work shows good improvement in A1c, however TSH is elevated at 12. Please confirm dose and compliance with levothyroxine, and I can address the dose accordingly. Otherwise keep follow-up visit for 01/15/2023. documented in this encounter Plan of Treatment Upcoming Encounters Date Type Department Care Team (Late st Contact Info) Description 01/15/2023 8:00 AM EST [facility] [place] [address] [place] [address] Jadyn Johnson DO [address] [place] [id number] Health Maintenance Due Date Last Done Comments [...] filedocumented as of this encounter Care Teams Crusher Setter Relationship Specialty Start Date End Date Jadyn Johnson DO [address] [facility] [place] [address] PCP - General Family Medicine 02/10/19 documented as of this encounter
--- OUTSIDE RECORDS SUMMARY | 2023-01-21 08:06 | External Medical Summary | Summary of Care ---
Author Name Unknown Organization [facility] Address [address] [facility] [place] [address] Phone [phone] Care Team Providers Care Exercise Physiology Professor Name Role Phone Jadyn Johnson DO Primary Care Provider +1- [phone] Reason for Visit * Reason Comments pre-op exam Pre op exam, surgery on 01/21, fusion L2-sacrum, removal of cyst between L4-5, Dr. Herr, [facility] Encounter Details Date Type Department Care Team (Late st Contact Info) Description 01/15/2023 8:00 AM EST [facility] [address] [place] [address] Jadyn Johnson DO [address] [facility] [place] [address] Preop examination*; Spinal stenosis of lumbar region with neurogenic claudication; Type 2 diabetes mellitus without complication, without long-term current use of insulin (HCC); Acquired hypothyroidism; Mixed dyslipidemia; HTN, goal below 140/90; Diarrhea, unspecified type Allergies Active Allergy Reactions Criticality Noted Date Comments Sulfa Antibiotics Rash Low 08/07/2012 Tramadol 10/06/2021 hullicinations documented as of this encounter (statuses as of 01/15/2023) Medications Medication Sig Dispensed Refills Start Date End Date Status VITAMIN D 1000 UNITS PO CAPS Take 2 Capsules by mouth every evening. 0 Active Amoxicillin 500 MG Oral Capsule (Amoxil) Take 1 Capsule by mouth once as needed for Other (dental work). As directed prior to dental work.- Take 4 tablets prior to procedure 4 Capsule 1 1 Active Colchicine 0.6 MG Oral Tablet Take 1 Tablet by mouth daily as needed for Other (gout). 0 Active hydroCHLOROthiazid e 25 MG Oral Tablet (Hydrodiuril)Indic ations:HTN, goal below 140/90 Take 1 Tablet by mouth in the morning. 90 Tablet 3 3 Active Pioglitazone HCl 15 MG Oral Tablet (Actos)Indications :Type 2 diabetes mellitus without complication, without long-term current use of insulin (HCC) Take 1 Tablet by mouth in the morning. 90 Tablet 3 3 Active metFORMIN HCl 1000 MG Oral Tablet (Glucophage) Take 1 Tablet by mouth 2 times a day with morning and evening meals. 180 Tablet 3 3 Active Colesevelam HCl 625 MG Oral Tablet (Welchol)Indicatio ns:Diarrhea, unspecified type Take 2 Tablets by mouth 2 times a day with morning and evening meals. 120 Tablet 5 3 Active Levothyroxine Sodium 175 MCG Oral Tablet (Synthroid)Indicat ions:Acquired hypothyroidism Take 1 Tablet by mouth in the morning. (at least 30 min prior to breakfast or other meds). 90 Tablet 3 3 Active Levothyroxine Sodium 150 MCG Oral Tablet (Synthroid)Indicat ions:Acquired hypothyroidism Take 1 Tablet by mouth in the morning. (at least 30 min prior to breakfast or other meds). 90 Tablet 3 3 01/16/20 23 Discontinued methylPREDNISolone 4 MG Oral Tablet Therapy Pack (Medrol Dosepack) follow package directions 21 Tablet 0 3 01/16/20 23 Discontinued(En d of Procedure) documented as of this encounter (statuses as of 01/15/2023) Active Problems Problem Noted Date Diagnosed Date Neuroforaminal stenosis of lumbar spine 01/16/20 23 Lumbar disc herniation with radiculopathy 2022 Severe obesity with body mas s index (BMI) of 35.0 to 39.9 with serious comorbidity 03/08/2022 Lumbar degenerative disc disease 08/18/2021 Type 2 diabetes mellitus wit hout complication, without long-term current use of insulin 02/10/2019 Acquired hypothyroidism 02/10/2019 Mixed dyslipidemia 02/10/2019 HTN, goal below 140/90 02/10/2019 documented as of this encounter (statuses as of 01/15/2023) Resolved Problems Problem Noted Date Diagnosed Date [...] as of this encounter (statuses as of 01/15/2023) Immunizations Name Administration Dates Next Due COVID-19 mRNA, LNP-s, No Pre serve, 2-Dose Series (Moderna) 12/16/2020,05/28/2020,04/30/2020 COVID-19, MRNA-LNP, 23-24, P F, 50 MCG/0.5 mL, 12 YRS AND ABOVE, IM (MODERNA-Spikevax) 11/17/2022 COVID-19, mRNA, LNP-s, PF, B ooster, 100mcg/0.5mg (Moderna) 05/29/2021 Covid-19, Mrna, Lnp-s, Pf, B ivalent, 30 Mcg, IM, 12 yrs and above (Pfizer) 01/03/2022 Pneumococcal Conjugate Vacc, 13 Valent (Prevnar) 11/24/2017,10/05/2017 Pneumococcal Conjugate Vacci ne, 7 Valent 11/24/2018 Pneumococcal Polysaccharide PPV23 (Pneumovax) 12/23/2018 Season Influenza, Quad, PF, Adjuvanted, 65+ Yrs, IM (FLUAD) 12/03/2022,11/30/2021,11/25/2020,11/16 Seasonal Influenza Virus Vac cine, Unspecified Formulation 11/30/2021,11/27/2019,11/17/2019,11/25 Seasonal Influenza, Quadrivalent, ID 02/2020,11/27/2019,11/17/2019,11/25 Seasonal Influenza, Trivalen t, Adjuvanted, 65+ yrs 11/25/2020,11/27/2019,11/25/2018 TD - Tetanus/Diptheria (ADULT) 02/08/2022 TDAP (age 11 and older)(Adacel) 11/02/2011,02/25 Zoster Vaccine Recombinant (Shingrix) 12/24/2018 ,11/22/2018,09/10/2018 documented as of this encounter Social History Tobacco Use Types Packs/Day Years Used Date Smoking Tobacco: Never Smokeless Tobacco: Never Tobacco Cessation:Counseling Given: No Alcohol Use Standard Drinks/Week Comments No 0 [...] on file documented as of this encounter Last Filed Vital Signs Vital Sign Reading Time Taken Comments Blood Pressure 124/72 01/15/2023 7:55 AM EST Pulse 87 01/15/2023 7:55 AM EST Temperature 36.6 C (97.8 F) 01/15/2023 7:55 AM ES T Respiratory Rate 20 01/15/2023 7:55 AM EST Oxygen Saturation 99% 01/15/2023 7:55 AM EST Inhaled Oxygen Concentration - - Weight 109.8 kg (242 lb) 01/15/2023 7:55 AM EST Height 167 cm (5' 5.75") 01/15/2023 7:55 AM EST Body Mass Index 39.36 01/15/2023 7:55 AM EST documented in this encounter Progress Notes * Jadyn Johnson, DO - 01/15/2023 8:02 AM EST Subjective Carlyn Tafoya is a 72 year old female. Chief Complaint Patient presents with pre-op exam Pre op exam, surgery on 01/21, fusion L2-sacrum, removal of cyst between L4-5, Dr. Herr, [facility] HPI: 72-year-old female here today for preop visit Patient is scheduled to have spinal surgery with Dr. Herr in [place] on January 21 Chart reviewed No major significant changes No major complaints today Her blood pressure is well controlled We reviewed her labs today Her blood sugars are very well controlled Her urine did show some contamination, she has no urinary symptoms at this point in time, no need for treatment Patient has no known issues with anesthesia other than nausea Patient plans on going to inpatient rehab for 1-2 weeks at [facility], and does have follow-up scheduled with surgery in January She denies any chest pain, shortness for breath or palpitations Component Latest Ref Rng 12/31/2022 Not all results display below - see scan for full detail SCAN INCLUDES: CBCD, BMP, LDL DIRECT, HA1C, LIPID PANEL, HA1C, FT4, TSH (E) CREATININE-OUTSIDE LAB 0.40 - 1.50 MG/DL 0.80 (E) EGFR-OUTSIDE LAB >60 ML/MIN 79 (E) POTASSIUM-OUTSIDE LAB 3.6 - 5.0 MMOL/L 3.8 (E) GLUCOSE-OUTSIDE LAB 65 - 110 MG/DL 98 (E) TRIGLYCERIDES-OUTSIDE LAB 20 - 200 MG/DL 86 (E) CHOLESTEROL-Outside Lab 20 - 200 MG/DL 197 (E) HDL-OUTSIDE LAB 35.0 - 60.0 MG/DL 90.0 ! (E) LDL (CALCULATED)-OUTSIDE LAB <100 MG/DL 89.80 (E) HEMOGLOBIN, [id number] LAB 3.8 - 5.6 % 5.7 ! (E) PROTEIN, UA-OUTSIDE LAB NEG HEMOGLOBIN-OUTSIDE LAB 12.0 - 16.0 GM/DL 14.2 (E) TSH - OUTSIDE LAB 0.410 - 4.670 MCIU/ML 12.900 ! (E) Component Latest Ref Rng 01/07/2023 Not all results display below - see scan for full detail -- (E) CREATININE-OUTSIDE LAB 0.40 - 1.50 MG/DL EGFR-OUTSIDE LAB >60 ML/MIN POTASSIUM-OUTSIDE LAB 3.6 - 5.0 MMOL/L GLUCOSE-OUTSIDE LAB 65 - 110 MG/DL TRIGLYCERIDES-OUTSIDE LAB 20 - 200 MG/DL CHOLESTEROL-Outside Lab 20 - 200 MG/DL HDL-OUTSIDE LAB 35.0 - 60.0 MG/DL LDL (CALCULATED)-OUTSIDE LAB <100 MG/DL HEMOGLOBIN, [id number] LAB 3.8 - 5.6 % PROTEIN, UA-OUTSIDE LAB NEG NEG (E) HEMOGLOBIN-OUTSIDE LAB 12.0 - 16.0 GM/DL TSH - OUTSIDE LAB 0.410 - 4.670 MCIU/ML Legend: ! Abnormal (E) External lab result PMH: Patient Active Problem List Diagnosis Code Type 2 diabetes mellitus without complication, without long-term current use of insulin (HCC) E11.9 Acquired hypothyroidism E03.9 Mixed dyslipidemia E78.2 HTN, goal below 140/90 I10 Lumbar degenerative disc disease M51.36 Severe obesity with body mass index (BMI) of 35.0 to 39.9 with serious comorbidity (HCC) E66.01 Neuroforaminal stenosis of lumbar spine M48.061 Lumbar disc herniation with radiculopathy M51.16 Current Outpatient Medications Medication Sig Dispense Refill VITAMIN D 1000 UNITS PO CAPS Take 2 Capsules by mouth every evening. Amoxicillin 500 MG Oral Capsule (Amoxil) Take 1 Capsule by mouth once as needed for Other (dental work). As directed prior to dental work.- Take 4 tablets prior to procedure 4 Capsule 1 Colchicine 0.6 MG Oral Tablet Take 1 Tablet by mouth daily as needed for Other (gout). hydroCHLOROthiazide 25 MG Oral Tablet (Hydrodiuril) Take 1 Tablet by mouth in the morning. 90 Tablet 3 Pioglitazone HCl 15 MG Oral Tablet (Actos) Take 1 Tablet by mouth in the morning. 90 Tablet 3 metFORMIN HCl 1000 MG Oral Tablet (Glucophage) Take 1 Tablet by mouth 2 times a day with morning and evening meals. 180 Tablet 3 Colesevelam HCl 625 MG Oral Tablet (Welchol) Take 2 Tablets by mouth 2 times a day with morning andevening meals. 120 Tablet 5 Levothyroxine Sodium 175 MCG Oral Tablet (Synthroid) Take 1 Tablet by mouth in the morning. (at least 30 min prior to breakfast or other meds). 90 Tablet 3 No current facility-administered medications for this visit. Past Medical History: Diagnosis Date Diabetes mellitus (HCC) Dyslipidemia Family history of breast cancer 08/10/2012 MGM and Maternal Aunt both Dx postmenopausal Hypertension Hypothyroidism Pancreatitis Retinopathy due to secondary diabetes mellitus, without macular edema, with mild nonproliferative retinopathy (HCC) Past Surgical History: Procedure Laterality Date ARTHROPLASTY KNEE TOTAL 06/09/2012 Left ARTHROPLASTY KNEE TOTAL 2007 Right DELIVERY 1979 DELIVERY 1984 CHOLECYSTOTOMY OR CHOLECYSTOSTOMY, PERC DILATION AND CURETTAGE (D&C) 2004 EGD, W/ENDOSCOPIC US 03/09/2013 ESOPHAGOGASTRODUODENOSCOPY (EGD), FLEXIBLE, TRANSORAL, ENDOSCOPIC ULTRASOUND performed by Avery Brown DO at OR [facility] INJECT DX/THER SUBSTANCE INTERLAMINAR LUMBAR/SACRAL W IMAGE GUIDE 10/24/2022 INJECTION SPINE LUMBAR OR SACRAL performed by Scott Samuels DO at OR [facility] LEG VEINS LIGATION, OPEN, 1 LEG Right LUMBAR SPINE FUSION, POSTEROLATERAL 09/2021 [facility] Review of patient's allergies indicates: Allergen Reactions Tramadol hullicinations Sulfa Antibiotics Rash Family History Problem Relation Age of Onset Other (Scloriosing cholangitis) Mother Alcohol and Other Disorders Associated Father cirrohis Cancer Grandmother (Maternal) Breast Other (Severe Anemia) Grandfather (Maternal) Other (ulcerative colitis) Sister Family Status Relation Status Mo Fa Sis Alive Son Alive Son Alive MGMA MGFA PGMA PGFA Sis (Not Specified) Social History Socioeconomic History Marital status: Spouse name: Not on file Number of children: 2 Years of education: Not on file Highest education level: Not on file Occupational History 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 [employer] Tobacco Use Smoking status: Never Smokeless tobacco: Never Substance and Sexual Activity Alcohol use: No Drug use: No Sexual activity: Yes Other Topics Concern Not on file Social History Narrative Not on file Social Determinants of Health Financial Resource Strain: Not on file Food Insecurity: No Food Insecurity (01/02/2023) Hunger Vital Sign Worried About Running Out of Food in the Last Year: Never true Ran Out of Food in the Last Year: Never true Transportation Needs: Not on file Physical Activity: Not on file Stress: Not on file Social Connections: Not on file Intimate Partner Violence: Not on file Housing Stability: Not on file Objective BP 124/72 | Pulse 87 | Temp 36.6 C (97.8 F) (Temporal Artery) | Resp 20 | Ht 1.67 m (5' 5.75") | Wt 109.8 kg (242 lb) | SpO2 99% | BMI 39.36 kg/m | BSA 2.26 m ASSESSMENT/PLAN: Preop examination (Primary) Spinal stenosis of lumbar region with neurogenic claudication Type 2 diabetes mellitus without complication, without long-term current use of insulin (HCC) - COMPREHENSIVE METABOLIC PANEL; Future; Expected date: 07/16/2023 - LIPID PANEL WITH DIRECT LDL IF TG IS HIGH; Future; Expected date: 07/16/2023 - HEMOGLOBIN A1C; Future; Expected date: 07/16/2023 - ALBUMIN / CREATININE RATIO, URINE; Future; Expected date: 07/16/2023 Acquired hypothyroidism - Levothyroxine Sodium 175 MCG Oral Tablet (Synthroid); Take 1 Tablet by mouth in the morning. (at least 30 min prior to breakfast or other meds). - TSH WITH FREE T4 IF INDICATED; Future; Expected date: 04/17/2023 - COMPREHENSIVE METABOLIC PANEL; Future; Expected date: 07/16/2023 - LIPID PANEL WITH DIRECT LDL IF TG IS HIGH; Future; Expected date: 07/16/2023 - HEMOGLOBIN A1C; Future; Expected date: 07/16/2023 - ALBUMIN / CREATININE RATIO, URINE; Future; Expected date: 07/16/2023 Mixed dyslipidemia - COMPREHENSIVE METABOLIC PANEL; Future; Expected date: 07/16/2023 - LIPID PANEL WITH DIRECT LDL IF TG IS HIGH; Future; Expected date: 07/16/2023 - HEMOGLOBIN A1C; Future; Expected date: 07/16/2023 - ALBUMIN / CREATININE RATIO, URINE; Future; Expected date: 07/16/2023 HTN, goal below 140/90 - COMPREHENSIVE METABOLIC PANEL; Future; Expected date: 07/16/2023 - LIPID PANEL WITH DIRECT LDL IF TG IS HIGH; Future; Expected date: 07/16/2023 - HEMOGLOBIN A1C; Future; Expected date: 07/16/2023 - ALBUMIN / CREATININE RATIO, URINE; Future; Expected date: 07/16/2023 Diarrhea, unspecified type - Colesevelam HCl 625 MG Oral Tablet (Welchol); Take 2 Tablets by mouth 2 times a day with morning and evening meals. Labs, EKG, CXR reviewed today. No contraindications for surgery. Patient is low to moderate risk for surgery Will increase her Synthroid and plan on rechecking in the new year after she is recovered from surgery Update routine labs in 6 months at her next visit Follow Up: Return in about 6 months (around 07/16/2023). Jadyn Johnson DO documented in this encounter Nursing Notes * Radha Keen LPN - 01/15/2023 7:51 AM EST Chief Complaint Patient presents with pre-op exam Pre op exam, surgery on 01/21, fusion L2-sacrum, removal of cyst between L4-5, Dr. Herr, [facility] documented in this encounter Plan of Treatment Upcoming Encounters Date Type Department Care Team (Late st Contact Info) Description 07/26/2023 8:20 AM EDT [facility] [address] [place] [address] Jadyn Johnson DO [address] [place] [address] Scheduled Orders Name Type Priority Associated Diagnoses Orde r Schedule TSH WITH FREE T4 IF INDICATED Lab Routine Acquired hypothyroidism Expected: 04/17/2023 (Approximate), Expires: 01/15/2024 COMPREHENSIVE METABOLIC PANEL Lab Routine Type 2 diabetes mellitus without complication, without long-term current use of insulin (HCC) Acquired hypothyroidism Mixed dyslipidemia HTN, goal below 140/90 Expected: 07/16/2023 (Approximate), Expires: 01/16/2024 LIPID PANEL WITH DIRECT LDL IF TG IS HIGH Lab Routine Type 2 diabetes mellitus without complication, without long-term current use of insulin (HCC) Acquired hypothyroidism Mixed dyslipidemia HTN, goal below 140/90 Expected: 07/16/2023 (Approximate), Expires: 01/16/2024 HEMOGLOBIN A1C Lab Routine Type 2 diabetes mellitus without complication, without long-term current use of insulin (HCC) Acquired hypothyroidism Mixed dyslipidemia HTN, goal below 140/90 Expected: 07/16/2023 (Approximate), Expires: 01/16/2024 ALBUMIN / CREATININE RATIO, URINE Lab Routine Type 2 diabetes mellitus without complication, without long-term current use of insulin (HCC) Acquired hypothyroidism Mixed dyslipidemia HTN, goal below 140/90 Expected: 07/16/2023 (Approximate), Expires: 01/16/2024 Health Maintenance Due Date Last Done Comments [...] 02/25/2011 Pneumococcal Vaccine: 65+ Years Completed 12/23/2018, 11/24/2017, 10/05/2017 Zoster Vaccines Completed 12/24/2018, 10/27, 09/10/2018 COVID-19 Vaccine Completed 11/17/2022, 10/2021, 05/29/2021, Additional history exists Influenza Vaccine (FLU shot) Completed 10/2022, 11/30/2021, 11/30/2021, Additional history exists GARDASIL-HPV IMMUNIZATION SERIES Aged Out No longer eligible based on patient's age to complete this topic MENINGOCOCCAL (MENACTRA/MENVEO) Aged Out No longer eligible based on patient's age to complete this topic documented as of this encounter Medical Devices Not on filedocumented as of this encounter Visit Diagnoses Diagnosis Preop examination- Primary Preoperative examination, unspecified Spinal stenosis of lumbar region with neurogenic claudication Spinal stenosis, lumbar region, with neurogenic claudication Type 2 diabetes mellitus without complication, without long-term current use of insulin (HCC) Acquired hypothyroidism Unspecified hypothyroidism Mixed dyslipidemia Mixed hyperlipidemia HTN, goal below 140/90 Unspecified essential hypertension Diarrhea, unspecified type documented in this encounter Care Teams Exercise Physiology Professor Relationship Specialty Start Date End Date Jadyn Johnson DO [address] [facility] [place] [address] PCP - General Family Medicine 02/10/19 documented as of this encounter
--- OUTSIDE RECORDS SUMMARY | 2023-01-21 08:06 | External Medical Summary | Summary of Care ---
Author Name Unknown Organization [facility] Address [address] [facility] [place] [address] Phone [phone] Care Team Providers Care Calker Name Role Phone Jadyn Johnson DO Primary Care Provider +1- [phone] Reason for Visit * Reason Onset Date Comments Advice 01/02/2023 Encounter Details Date Type Department Care Team (Late st Contact Info) Description 01/02/[address] [place] [address] Duy Anaya PA-C [address] [facility] [place] [address] Advice Allergies Active Allergy Reactions Criticality Noted Date Comments Sulfa Antibiotics Rash Low 08/07/2012 Tramadol 10/06/2021 hullicinations documented as of this encounter (statuses as of 01/09/2023) Medications Medication Sig Dispensed Refills Start Date [...] as of this encounter (statuses as of 01/09/2023) Active Problems Problem Noted Date Diagnosed Date Severe obesity with body mas s index (BMI) of 35.0 to 39.9 with serious comorbidity 03/08/2022 Lumbar degenerative disc disease 08/18/2021 Type 2 diabetes mellitus wit hout complication, without long-term current use of insulin 02/10/2019 Acquired hypothyroidism 02/10/2019 Mixed dyslipidemia 02/10/2019 HTN, goal below 140/90 02/10/2019 documented as of this encounter (statuses as of 01/09/2023) Resolved Problems Problem Noted Date Diagnosed Date [...] as of this encounter (statuses as of 01/09/2023) Immunizations Name Administration Dates Next Due COVID-19 [...] encounter Miscellaneous Notes * Telephone Encounter - Jazmine Baez LPN - 01/09/2023 2:34 PM EST Patient made aware, she confirmed she is taking Levothyroxine 150mcg. Please send new prescription to the [facility]. * Telephone Encounter - Jadyn [...] Description 01/15/2023 8:00 AM EST Office Visit [facility] [address] [place] [address] Jadyn Johnson, DO [address] [facility] [place] [address] Health Maintenance Due Date Last Done Comments [...] filedocumented as of this encounter Care Teams Calker Relationship Specialty Start Date End Date Jadyn Johnson DO [address] [facility] [place] [address] PCP - General Family Medicine 02/10/19 documented as of this encounter
--- OUTSIDE RECORDS SUMMARY | 2023-01-21 08:06 | External Medical Summary | Summary of Care ---
Author Name Unknown Organization [facility] Address [address] [facility] [place] [address] Phone [phone] Care Team Providers Care Medical And Health Services Manager Name Role Phone Jadyn Johnson DO Primary Care Provider +1- [phone] Reason for Visit * Reason Onset Date Comments Advice 01/02/2023 Encounter Details Date Type Department Care Team (Late st Contact Info) Description 01/02/[address] [place] [address] Duy Anaya PA-C [address] [facility] [place] [address] Advice Allergies [...] evening meals. 180 Tablet 3 3 Active Levothyroxine Sodium 150 [...] Date Neuroforaminal stenosis of lumbar spine 01/16/20 Lumbar disc herniation with radiculopathy 2022 Severe [...] encounter Miscellaneous Notes * Telephone Encounter - Duy Anaya PA-C - 01/15/2023 1:59 PM EST Script sent earlier today * Telephone Encounter - Richelle Conn LPN - 01/10/2023 4:47 PM EST Please advise medication dosing, pharmacy selected * Telephone Encounter - Carlyn Sanchez OSA - 01/10/2023 10:16 AM EST Please send new levothyroxine script to [facility] pharmacy. * Telephone Encounter - Jazmine Baez LPN - 01/09/2023 2:34 PM EST Patient made aware, she confirmed she is taking Levothyroxine 150mcg. Please send new prescription to the [facility]. * Telephone Encounter - Jadyn Johnson [...] Description 07/26/2023 8:20 AM EDT Office Visit Family [facility] [address] [place] [address] Jadyn Johnson DO [address] [place] [address] Health Maintenance Due Date Last Done Comments [...] as of this encounter Visit Diagnoses Diagnosis Acquired hypothyroidism- Primary Unspecified hypothyroidism documented in this encounter Care Teams Medical And Health Services Manager Relationship Specialty Start Date End Date Jadyn Johnson DO [address] [facility] [address] PCP - General Family Medicine 02/10/19 documented as of this encounter
--- OUTSIDE RECORDS SUMMARY | 2023-01-21 08:06 | External Medical Summary | Summary of Care ---
Author Name Unknown Organization [facility] Address [address] [place] [address] Phone [phone] Care Team Providers Care Product Development Consultant Name Role Phone Jadyn Johnson DO Primary Care Provider +1- [phone] Reason for Visit * Reason Onset Date Comments Advice 01/02/2023 Encounter Details Date Type Department Care Team (Late st Contact Info) Description 01/02/[address] [place] [address] Duy Anaya PA-C [address] [facility] [place] [address] Advice Allergies Active Allergy [...] EST Please send new levothyroxine script to [facility] pharmacy. * Telephone Encounter - Jazmine [...] Description 01/15/2023 8:00 AM EST Office Visit [facility] [address] [place] [address] Jadyn Johnson DO [address] [place] [address] Health Maintenance Due Date Last Done [...] filedocumented as of this encounter Care Teams Product Development Consultant Relationship Specialty Start Date End Date Jadyn Johnson DO [address] [facility] [place] [address] PCP - General Family Medicine 02/10/19 documented as of this encounter
--- OUTSIDE RECORDS SUMMARY | 2023-01-21 08:06 | External Medical Summary | Summary of Care ---
Author Name Unknown Organization [facility] Address [address] [place] [place] [address] Phone [phone] Care Team Providers Care Surveillance Systems Analyst Name Role Phone Jadyn Johnson DO Primary Care Provider [phone]- [phone] Encounter Details Date Type Department Care Team (Late st Contact Info) Description 01/11/2023 Orders Only Family Practice [address], [place] [address] [place] [address] Jadyn Johnson DO [address] [place] [address] Allergies Active Allergy Reactions Criticality Noted Date [...] 8:00 AM EST Office Visit Family Practice [address] [place] [address] [place] [address] Jadyn Johnson DO [address] [place] [address] Health Maintenance Due Date Last Done Comments [...] Procedure Name Priority Date/Time Associated Diagnosis Comments XR CHEST 2 VIEWS Routine 01/07/2023 CHEMISTRY-OUTSIDE Routine 01/07/2023 documented in this encounter Results * CHEMISTRY-OUTSIDE (01/07/2023) Not all results display below - see scan for full detail OUTSIDE LAB (SEE SCANNED REPORT) Comment:SEE SCAN: UA, URINE CULTURE, BLOOD TYPE ANTIBODY SCREEN CREATININE-OUTSID E LAB OUTSIDE LAB (SEE SCANNED REPORT) EGFR-OUTSIDE LAB OUT SIDE LAB (SEE SCANNED REPORT) POTASSIUM-OUTSIDE LAB OUTSIDE LAB (SEE SCANNED REPORT) GLUCOSE-OUTSIDE LAB OUTSIDE LAB (SEE SCANNED REPORT) HOURS FASTING OUTSID E LAB (SEE SCANNED REPORT) TRIGLYCERIDES-OUT SIDE LAB OUTSIDE LAB (SEE SCANNED REPORT) CHOLESTEROL-OUTSI DE LAB OUTSIDE LAB (SEE SCANNED REPORT) HDL-OUTSIDE LAB OUTS [facility] (SEE SCANNED REPORT) CHOL/HDL RATIO-OUTSIDE LAB OUTSIDE LA B (SEE SCANNED REPORT) LDL (CALCULATED)-OUTS [facility] OUTSIDE LAB (SEE SCANNED REPORT) LDL (DIRECT MEASURE)-OUTSIDE LAB OUTSIDE LAB (SEE SCANNED REPORT) HEMOGLOBIN, B2Z-HZHAQSK LAB OUTSIDE LAB (SEE SCANNED REPORT) PHOSPHORUS-OUTSID E LAB OUTSIDE LAB (SEE SCANNED REPORT) PTH-OUTSIDE LAB OUTS [facility] (SEE SCANNED REPORT) MICROALBUMIN RATIO-OUTSIDE LAB OUTSIDE LA B (SEE SCANNED REPORT) PROTEIN, UA-OUTSIDE LAB NEG NEG OUTSIDE LAB (SEE SCANNED REPORT) HEMOGLOBIN-OUTSID E LAB OUTSIDE LAB (SEE SCANNED REPORT) 01/07/2023 History Per Patient LABORATORY OUTSIDE LAB (SEE SCANNED REPORT) * XR CHEST 2 VIEWS (01/07/2023) Anatomical Region Laterality Modality Chest Other 01/07/2023 Timothy Herr DO RADIOLOGY ( RAD GENERAL) documented in this encounter Care Teams Surveillance Systems Analyst Relationship Specialty Start Date End Date Jadyn Johnson DO [address] [facility] [place] [address] PCP - General Family Medicine 02/10/19 documented as of this encounter
[2023-01-21] MEDS ORDERED: ONDANSETRON INJ 2 MG/ML 2 ML VIAL ONE (10:07)
[2023-01-21] MEDS ORDERED: PROPOFOL IV EMULSION 10 MG/ML 20 ML VIAL IV ONE (10:07)
[2023-01-21] MEDS ORDERED: ROCURONIUM BROMIDE 10 MG/ML 5 ML VIAL IV ONE (10:07)
[2023-01-21] MEDS ORDERED: SUGAMMADEX SODIUM 200 MG/2 ML VIAL IV ONE (10:07)
[2023-01-21] MEDS ORDERED: fentaNYL citrate PF 100 MCG/2 ML VIAL ONE ×2 (10:07→12:52)
[2023-01-21] MEDS ORDERED: MIDAZOLAM HCL 1 MG/ML 2ML VIAL ONE (10:07)
[2023-01-21] MEDS ORDERED: LIDOCAINE 2% 2 ML VIAL/AMP(20MG/ML) INFIL ONE (10:07)
[2023-01-21] MEDS ORDERED: DEXAMETHASONE SOD INJ 4 MG/ML VIAL ONE ×2 (10:07→11:52)
[2023-01-21] MEDS ORDERED: SCOPOLAMINE 1 MG TDSY TD ONE ×2 (10:14)
[2023-01-21] MEDS ORDERED: ePHEDrine sulfate 50 MG/ML AMP IV PRN (10:15)
[2023-01-21] MEDS ORDERED: ATROPINE SULFATE 0.1 MG/ML 10ML SYR IV PRN (10:15)
[2023-01-21] MEDS ORDERED: ONDANSETRON INJ 2 MG/ML 2 ML VIAL IV PRN ×2 (10:15→17:30)
--- NOTE | 2023-01-21 11:00 | History & Physical Bridge Note ---
Date of Service January 21, 2023 History & Physical Bridge Note I have examined the patient, reviewed the History & Physical and in the interval since the performance of the History & Physical I have noted the following changes of clinical significance: no changes noted
--- NOTE | 2023-01-21 11:01 | History & Physical Report ---
Date of Service January 21, 2023 Assessment & Plan (1) Neurogenic claudication due to lumbar spinal stenosis: Plan: L4-S1 decompression, L2-S1 fusion, L2-L4 hardware removal History of Present Illness Chief Complaint: Back and bilateral leg pain Primary Care Provider: Jadyn Johnson DO This is a 72-year-old female who presents for chronic persistent back and leg pain after failing course of nonoperative care is here for surgical invention. Allergies Allergy/AdvReac Type Severity Reaction Status Date / Time Sulfa (Sulfonamide Allergy Mild Rash Verified 12/31/22 12:15 Antibiotics) tramadol AdvReac Mild Auditory Verified 12/31/22 12:15 hallucinations Home Medications Medication Instructions Recorded Confirmed Type cholecalciferol (vitamin D3) 25 25 mcg PO QAM 09/11/21 01/21/23 History mcg (1,000 unit) capsule (Vitamin D3) colesevelam 625 mg tablet (WelChol) 1,250 mg PO BID 09/11/21 01/21/23 History hydrochlorothiazide 25 mg tablet 25 mg PO QAM 09/11/21 01/21/23 History metformin 1,000 mg tablet 1,000 mg PO BIDWMEAL 09/11/21 01/21/23 History pioglitazone 15 mg tablet 15 mg PO QAM 09/11/21 01/21/23 History acetaminophen 650 mg tablet 650 mg PO BID PRN Pain 12/28/22 01/21/23 History colchicine 0.6 mg tablet 0.6 mg PO UD PRN prn 12/28/22 12/28/22 History levothyroxine 150 mcg tablet 175 mcg PO QAM 12/28/22 01/21/23 History Past Med/Surg History Medical History History of COVID-19 03/2022- mild symptoms Morbid obesity Neuroforaminal stenosis of lumbar spine Lumbar disc herniation with radiculopathy Hypothyroidism HLD (hyperlipidemia) HTN (hypertension) T2DM (type 2 diabetes mellitus) Surgical History Nausea and vomiting after administration of anesthetic agent Hx of bilateral cataract extraction History of lumbar spinal fusion L2-L4 decompression/fusion (09/14/21): Grade view 1, Garcia#2, ETT 7.0 at [facility] Hx of dilation and curettage Hx of arthroscopy of left knee meniscus injury Hx of cholecystectomy Hx of tonsillectomy History of x2 History of total knee replacement Left 2012, Right 2006 Family History Mother Sclerosing cholangitis Father Alcohol use disorder Social History Smoking Status: Never smoker Second Hand Exposure: No; Do You Dip or Chew Tobacco: No; Tobacco Cessation Education Requested by Patient: No Hx Alcohol Use: No Hx Substance Use: No Preferred Language: Cypriot Communication Ability: Effective Traffic Assistant Required: No Beliefs That Will Affect Care: None marital status: Current Living Situation: Spouse current occupational status: retired Other Information That Helps Us Care for You: No Feels Safe at Home: Yes Safety Concerns: Feels Safe At This Time Assistive Devices: Denture - Upper and Glasses Physical Exam Physical Exam: Patient is alert and oriented Heart regular rate and rhythm lungs clear Results & Data Results & Data Vital Signs (Past 12 Hours) Vital Signs Temp Pulse Resp BP Pulse Ox O2 Del Method 01/21/23 08:17 36.7 C 74 18 Room Air 01/21/23 08:14 36.7 C 74 18 151/74 H 97 Room Air
[2023-01-21] MEDS ORDERED: ceFAZolin 330 MG/ML 1 GM VIAL ONE (11:12)
[2023-01-21] MEDS ORDERED: BUPIVACAINE/EPINEPHRINE 0.25% 1:200,000 30 ML VIAL ONE (11:12)
[2023-01-21] MEDS ORDERED: FLOSEAL HEMOSTATIC MATRIX 10ML TOP ONE (12:14)
--- NOTE | 2023-01-21 13:57 | Operative Report ---
Post Operative Report Pre & Post Diagnosis Operation Date: 01/21/23 09:35 Pre-Op Diagnosis: Spinal Stenosis, Lumbar Region without Neurogenic Spondylolisthesis L5-S1 Obesity Post-Op Diagnosis: Same I identified the patient and participated in the time-out.: Yes Procedure Operation Date: 01/21/23 09:35 Actual Procedures #1 removal of posterior instrumentation L2-L4. #2 exploration of fusion L2-L4. #3 lumbar decompression bilaterally facetectomies and foraminotomies L4-5 L5-S1. #4 posterior spinal fusion L4-S1. #5 placement posterior instrumentation L2- S1. #6 interbody fusion L4-L5 L5-S1. #7 placement spiral 13 x 26 mm at L4-5 and 14 x 26 mm x 2 at L5-S1. #8 placement locally harvested morselized autograft posterior gutters. #9 placement infuse collagen sponge, mass graft and posterior gutters and I factor interbody space. Surgeon Timothy Herr, DO [employer] Ainsley Mullins Estimated Blood Loss 250 Findings See Below The patient is 5 foot 5 weighing 108 kg with a BMI in excess of 39. Patient's body habitus did contribute to significant technical difficulty required deepest retractors longer instruments in order to perform her procedure. This at least 50% increased operative time. Specimens None Indications This is a 72-year-old female well-known to the presents with above-mentioned diagnosis of the family since course of nonoperative care is here for surgical invention. Description of Procedure Patient was met with identified informed consent obtained. Patient was then taken to the operative suite underwent patient placed in a prone position on Sidney abdominals and frame. All bony promises well-padded eyes inspected to ensure no external precipice spinal. This point lumbar spine was prepped and draped no sterile fashion. Sharp dissection with assistance of Bovie cards from down to and exposing the lamina transverse processes of L4-L5 and sacral ala as well as instrumentation L2-L4 bilaterally. I then proceeded with the hardware bilaterally explored the fusion mass noted to be intact. Informed complete la minectomy of L5 followed by laminectomy of L4 including bilateral medial facetectomies and foraminotomies addressing severe spinal stenosis. Pedicle screws were then placed in L2-S1 bilaterally with assistance of fluoroscopy and properly sized elba contoured and placed. Bilateral transforaminal approach on the right discectomy of L5-S1 was performed endplates guarded to subcortical mean bone and a 14 x 26 mm Spira cage with I factor tapped in position. Then proceeded to L5-S1 transforaminal region on the left completed the discectomy curetted the endplates to subcortical bleeding bone and placed a second 14 x 26 mm Spira cage with I factor into position. I then proceeded L4-[address] of transforaminal approach on the right complete discectomy performed endplates guarded to subcortical bleeding bone and a 13 x 26 mm Spira cage with I factor tapped in position. The rods were then locked in final position bilaterally. The transverse processes of L4-5 and sacral ala burred to subcortical and bone. Infuse collagen sponge, mass graft locally harvested morselized autograft was placed in the posterior lateral gutters. 15 round MORGAN drain inserted. The incision was then closed with 1 Vicryl to fascia 2-0 Vicryl subcutaneously and 4 Monocryl for final skin closure. Steri-Strips sterile dressing placed. Patient waken taken to PACU stable condition. Please note spinal cord monitoring was utilized at the procedure no changes noted. Lastly Ainsley Mullins was present that the entire surgery and while the patient positioning complex portions of the surgery and possible closure. I attest to the content of the Intraoperative Record and any orders documented therein. Any exceptions are noted below.
--- NOTE | 2023-01-21 15:14 | Anesthesiology Progress Note ---
Date of Service January 21, 2023 Anesthesia Post Procedure Vital Signs Vital Signs: Temp Pulse Pulse Resp BP Pulse Ox O2 Del Method 01/21/23 15:00 61 12 114/64 94 Nasal Cannula 01/21/23 14:50 62 14 110/60 93 Nasal Cannula 01/21/23 14:40 65 20 108/62 93 Oxymask 01/21/23 14:30 64 16 105/58 L 96 Oxymask 01/21/23 14:20 60 14 101/58 L 96 Oxymask 01/21/23 14:15 36.2 C L 68 16 105/67 97 Oxymask 01/21/23 08:17 36.7 C 74 18 Room Air 01/21/23 08:14 36.7 C 74 18 151/74 H 97 Room Air O2 Flow Rate 01/21/23 15:00 2 01/21/23 14:50 2 01/21/23 14:40 2 01/21/23 14:30 2 01/21/23 14:20 6 01/21/23 14:15 6 01/21/23 08:17 01/21/23 08:14 Transfer of Care Handoff Completed per policy Notes Mental Status: alert / awake / arousable Patient Amnestic to Procedure: Yes Nausea / Vomiting: adequately controlled Pain: adequately controlled Airway Patency, RR, SpO2: stable & adequate BP & HR: stable & adequate Hydration State: stable & adequate Anesthetic Complications: no major complications apparent
[2023-01-21] MEDS: fentaNYL citrate PF 100 MCG/2 ML VIAL IV PRN ×2 (15:25→16:05)
--- NOTE | 2023-01-21 17:01 | Fluoroscopy Report ---
INTRAOPERATIVE RADIOGRAPHS CLINICAL HISTORY: L2-S1 spinal fusion. Fluoro time: 25 seconds Ka,r: 25.28 mGy FINDINGS: 4 spot fluoroscopic views of the lumbar spine are presented. There is evidence of discectom y at all levels the 20 L2-L3 and L5-S1 with laminectomy and posterior fusion at L2-S1. Diverticula sc rews are present at all levels. The orthopedic hardware appears intact. IMPRESSION: Intraoperative images from extensive lumbosacral spinal fusion surgery as above. Electronically signed by: Pradeep Lozoya M.D. 01/21/2023 5:00 PM
[2023-01-21] MEDS ORDERED: SOD PHOSPHATE/SOD BIPHOSPHATE ENEMA 132 ML BTL PR PRN (17:30)
[2023-01-21] MEDS ORDERED: LORazepam 0.5 MG TAB PO PRN (17:30)
[2023-01-21] MEDS ORDERED: diphenhydrAMINE Capsule 25 MG CAP PO PRN (17:30)
[2023-01-21] MEDS ORDERED: HYDROmorphone INJ 0.5 MG/0.5 ML SYR IV PRN (17:30)
[2023-01-21] MEDS ORDERED: METOCLOPRAMIDE HCL INJ 5 MG/ML 2 ML VIAL IV PRN (17:30)
[2023-01-21] MEDS ORDERED: ACETAMINOPHEN 1,000 MG/100 ML VIAL IV PRN (17:30)
[2023-01-21] MEDS ORDERED: bisacodyL 10 MG SUPP PR PRN (17:30)
[2023-01-21] MEDS ORDERED: LORazepam 0.5 MG in SYRINGE 0.25 ML IV PRN (17:30)
[2023-01-21] MEDS ORDERED: PROMETHAZINE HCL 12.5 MG in SODIUM CHLORIDE 0.9% 50 ML IV PRN (17:30)
[2023-01-21] MEDS ORDERED: ONDANSETRON 4 MG OD TAB PO PRN (17:30)
[2023-01-21] MEDS ORDERED: DO NOT ADMINISTER FLU VACCINE PRN (17:30)
[2023-01-21] MEDS ORDERED: NALOXONE HCL 0.4 MG/1 ML VIAL/CARP IV PRN (17:30)
[2023-01-21] MEDS ORDERED: ALUMINUM/MAGNESIUM SUSP 30 ML UDC PO PRN (17:30)
[2023-01-21] MEDS ORDERED: FAMOTIDINE 20 MG TAB PO PRN (17:30)
[2023-01-21] MEDS ORDERED: ACETAMINOPHEN 500 MG TAB PO PRN (17:30)
[2023-01-21] MEDS ORDERED: MAGNESIUM HYDROXIDE SUSP 30 ML UDC PO PRN (17:30)
[2023-01-21] MEDS ORDERED: hydrOXYzine HCl 25 MG TAB PO PRN (17:30)
[2023-01-21] MEDS ORDERED: DO NOT ADMINISTER PNEUMOCOCCAL VACCINE PRN (17:30)
[2023-01-21] MEDS ORDERED: PHARMACY GLYCEMIC MGMT CONSULT PRN (17:30)
[2023-01-21] MEDS ORDERED: HYDROmorphone INJ 1 MG/ML SYRINGE ONE (17:32)
[2023-01-21] MEDS: HYDROmorphone INJ 1 MG/ML SYRINGE IV PRN ×2 (17:34→21:22)
[2023-01-21] MEDS ORDERED: GLUCOSE 40% GEL 15 GM TUBE PO PRN (19:15)
[2023-01-21] MEDS ORDERED: GLUCOSE 10 TAB/TUBE PO PRN (19:15)
[2023-01-21] MEDS ORDERED: GLUCAGON FOR INJ 1 MG VIAL IM PRN (19:15)
[2023-01-21] MEDS ORDERED: CARBOHYDRATES FOR HYPOGLYCEMIA PO PRN (19:15)
[2023-01-21] MEDS ORDERED: DEXTROSE 50% 50 ML SYRINGE IV PRN (19:15)
[2023-01-21] MEDS: SODIUM CHLORIDE 0.9% 1,000 ML IV SCH (20:09)
[2023-01-21] MEDS: ceFAZolin 2000MG 2,000 MG/15 ML SYR IV SCH (20:10)
[2023-01-21] MEDS: DOCUSATE SODIUM/SENNA 50/8.6MG TAB PO SCH (20:11)
--- NOTE | 2023-01-21 20:38 | Consultation ---
Date of Consultation January 21, 2023 Assessment & Plan (1) Status post surgery: 72-year-old female with past med significant for type 2 diabetes, hypothyroidism, hyperlipidemia, hypertension, obesity s/p back surgery. S/p back surgery Management as per orthopedics Diabetes type 2 Hold metformin and pioglitazone Insulin sliding scale Follow blood sugars Hypertension On hydrochlorothiazide Will monitor Hyperlipidemia On WelChol Hypothyroidism On Synthyroid Disposition and DVT prophylaxis As per orthopedics History of Present Illness Reason for Consultation: S/p back surgery. History of diabetes and hypertension Attending Physician: Timothy Herr, History of Present Illness 72-year-old female with past med significant for type 2 diabetes, hypothyroidism,Hyperlipidemia hypertension, obesity is s/p back surgery. Tolerated the procedure okay. Has some discomfort at surgical site. Denies any chest pain or shortness of breath. No feeling of hot or cold. Currently no headache. No nausea. Has some scratchy throat. No cough. No fevers. No abdominal pain. Resting comfortably. Past medical history. As mentioned above Past surgical history. Bilateral total knee arthroplasty. . Cholecystectomy. Dilatation and curettage. EGD with endoscopic ultrasound. Injection of lumbosacral spine. Leg veins ligation open, right side. Lumbar spine fusion in September 2021. Social history. . No smoking. No alcohol. No drug use. Family history. Father had alcohol liver cirrhosis. Mother had s sclerosing cholangitis. Sister has ulcerative colitis. Maternal grandmother had breast cancer. Maternal grandfather had severe anemia. Allergies Allergy/AdvReac Type Severity Reaction Status Date / Time Sulfa (Sulfonamide Allergy Mild Rash Verified 12/31/22 12:15 Antibiotics) tramadol AdvReac Mild Auditory Verified 12/31/22 12:15 hallucinations Home Medications Medication Instructions Recorded Confirmed Type cholecalciferol (vitamin D3) 25 25 mcg PO QAM 09/11/21 01/21/23 History mcg (1,000 unit) capsule (Vitamin D3) colesevelam 625 mg tablet (WelChol) 1,250 mg PO BID 09/11/21 01/21/23 History hydrochlorothiazide 25 mg tablet 25 mg PO QAM 09/11/21 01/21/23 History metformin 1,000 mg tablet 1,000 mg PO BIDWMEAL 09/11/21 01/21/23 History pioglitazone 15 mg tablet 15 mg PO QAM 09/11/21 01/21/23 History acetaminophen 650 mg tablet 650 mg PO BID PRN Pain 12/28/22 01/21/23 History colchicine 0.6 mg tablet 0.6 mg PO UD PRN prn 12/28/22 12/28/22 History levothyroxine 150 mcg tablet 175 mcg PO QAM 12/28/22 01/21/23 History Patient History Medical History History of COVID-19 03/2022- mild symptoms Morbid obesity Neuroforaminal stenosis of lumbar spine Lumbar disc herniation with radiculopathy Hypothyroidism HLD (hyperlipidemia) HTN (hypertension) T2DM (type 2 diabetes mellitus) Surgical History Nausea and vomiting after administration of anesthetic agent Hx of bilateral cataract extraction History of lumbar spinal fusion L2-L4 decompression/fusion (09/14/21): Grade view 1, Garcia#2, ETT 7.0 at [facility] Hx of dilation and curettage Hx of arthroscopy of left knee meniscus injury Hx of cholecystectomy Hx of tonsillectomy History of x2 History of total knee replacement Left 2012, Right 2006 Family History Mother Sclerosing cholangitis Father Alcohol use disorder Social History Smoking Status: Never smoker Second Hand Exposure: No; Do You Dip or Chew Tobacco: No; Tobacco Cessation Education Requested by Patient: No Hx Alcohol Use: No Hx Substance Use: No Preferred Language: Urdu Communication Ability: Effective Car Designer Required: No Beliefs That Will Affect Care: None marital status: Current Living Situation: Spouse current occupational status: retired Other Information That Helps Us Care for You: No Feels Safe at Home: Yes Safety Concerns: Feels Safe At This Time Assistive Devices: Denture - Upper and Glasses Review of Systems Review of Systems: All systems reviewed & are unremarkable except as noted in HPI & below Physical Exam Physical Exam: General- Not in distress Head- atraumatic Eyes- EOMI. ENT- oropharynx clear Neck- supple, no JVD. Lungs- clear to auscultation no wheezing or crackles. Heart- regular rhythm; no murmur, no gallop. Abdomen- normal bowel sounds, soft, nontender, no distension. Extremities- no pretibial edema, moves extremities. Neuro- alert, oriented x 3; EOMI; no facial palsy; no dysarthria; moves extremities. Musculoskeletal- s/p back surgery. Dressing intact. Skin- warm & dry Results & Data Vital Signs (Past 12 Hours) Vital Signs Temp Pulse Pulse Resp BP Pulse Ox O2 Del Method 01/21/23 20:04 36.6 C 80 17 113/65 93 Nasal Cannula 01/21/23 19:50 36.8 C 75 12 102/61 94 Nasal Cannula 01/21/23 19:00 75 14 101/57 L 93 Nasal Cannula 01/21/23 18:00 67 15 105/52 L 94 Nasal Cannula 01/21/23 17:00 65 13 119/60 94 Nasal Cannula 01/21/23 16:40 70 14 116/64 96 Nasal Cannula 01/21/23 16:25 65 16 108/67 96 Nasal Cannula 01/21/23 16:10 63 12 122/69 95 Nasal Cannula 01/21/23 15:55 65 12 113/70 94 Nasal Cannula 01/21/23 15:40 63 12 111/64 94 Nasal Cannula 01/21/23 15:30 65 12 113/69 94 Nasal Cannula 01/21/23 15:20 63 12 111/65 93 Nasal Cannula 01/21/23 15:10 65 12 109/63 93 Nasal Cannula 01/21/23 15:00 61 12 114/64 94 Nasal Cannula 01/21/23 14:50 62 14 110/60 93 Nasal Cannula 01/21/23 14:40 65 20 108/62 93 Oxymask 01/21/23 14:30 64 16 105/58 L 96 Oxymask 01/21/23 14:20 60 14 101/58 L 96 Oxymask 01/21/23 14:15 36.2 C L 68 16 105/67 97 Oxymask O2 Flow Rate 01/21/23 20:04 2 01/21/23 19:50 2 01/21/23 19:00 2 01/21/23 18:00 2 01/21/23 17:00 2 01/21/23 16:40 2 01/21/23 16:25 2 01/21/23 16:10 2 01/21/23 15:55 2 01/21/23 15:40 2 01/21/23 15:30 2 01/21/23 15:20 2 01/21/23 15:10 2 01/21/23 15:00 2 01/21/23 14:50 2 01/21/23 14:40 2 01/21/23 14:30 2 01/21/23 14:20 6 01/21/23 14:15 6 Diagnostic Findings Laboratory Results POC Glucose 219 mg/dl (70-99) H 01/21/23 20:35 Blood Type O Negative 01/21/23 08:19 Antibody Screen NEGATIVE 01/21/23 08:19 Crossmatch See Detail 01/21/23 08:19 Impressions Lumbar Spine X-Ray 01/21/23 09:35 INTRAOPERATIVE RADIOGRAPHS CLINICAL HISTORY: L2-S1 spinal fusion. Fluoro time: 25 seconds Ka,r: 25.28 mGy FINDINGS: 4 spot fluoroscopic views of the lumbar spine are presented. There is evidence of discectomy at all levels the 20 L2-L3 and L5-S1 with laminectomy and posterior fusion at L2-S1. Diverticula screws are present at all levels. The orthopedic hardware appears intact. IMPRESSION: Intraoperative images from extensive lumbosacral spinal fusion surgery as above. Electronically signed by: Pradeep Lozoya M.D. 01/21/2023 5:00 PM
[2023-01-21] MEDS: CHECK SCOPOLAMINE PATCH PLACEMENT SCH (20:40)
[2023-01-21] MEDS: INSULIN ASPART PER UNIT CHARGE SC SCH (20:52)
[2023-01-22] MEDS: CHECK SCOPOLAMINE PATCH PLACEMENT SCH ×4 (01:27→23:26)
[2023-01-22] MEDS: HYDROmorphone INJ 1 MG/ML SYRINGE IV PRN ×2 (03:00→23:37)
[2023-01-22] MEDS: SODIUM CHLORIDE 0.9% 1,000 ML IV SCH ×2 (03:01→07:41)
[2023-01-22] MEDS: POLYETHYLENE (MIRALAX) 17 GM PACK PO SCH ×4 (05:17→23:26)
[2023-01-22] MEDS: LEVOTHYROXINE SODIUM 175 MCG TABLET PO SCH (05:30)
[2023-01-22] MEDS: ceFAZolin 2000MG 2,000 MG/15 ML SYR IV SCH (05:31)
[2023-01-22 07:22] LABS: Basophils # (auto) 0.04 K/uL (0.00-0.20); Basophils % (auto) 0.4 %; Hematocrit (blood only) 32.2 % (37.0-47.0); Hemoglobin 10.8 g/dl (12.0-16.0); Immature Granulocytes # (auto) 0.04 K/uL (0.01-0.20); Immature Granulocytes % (auto) 0.4 %; Mean Corpuscular Hemoglobin 31.2 pg (25.0-34.0); Mean Corpuscular Hgb Conc 33.5 g/dL (32.0-36.0); Mean Corpuscular Volume 93.1 fL (80.0-100.0); Mean Platelet Volume 12.5 fL (9.4-12.4); Monocytes # (auto) 0.85 K/uL (0.11-0.59); Monocytes % (auto) 7.6 %; Neutrophils # (auto) 7.45 K/uL (1.40-6.50); Neutrophils % (auto) 66.6 %; Platelet Count 160 K/uL (130-400); RDW Coefficient of Variation 14.4 % (11.5-14.5); RDW Standard Deviation 49.7 fL (36.4-46.3); Red Blood Count 3.46 M/uL (4.20-5.40); White Blood Count 11.18 K/ul (4.8-10.8)
[2023-01-22 07:44] LABS: BUN Creatinine Ratio 16.1 (10-20); Calcium 8.1 mg/dl (8.6-10.3); Creatinine Clr Calc Pharmacy 103.2 ml/min; Est GFR (African American) 105.9 ml/min; Est GFR (Non-African American) 91.4 ml/min; Potassium 3.5 mmol/L (3.5-5.1)
[2023-01-22] MEDS: oxyCODONE HCL IR 5 MG TAB (IMMEDIATE RELEASE) PO PRN ×2 (07:46→08:47)
[2023-01-22] MEDS: CHOLECALCIFEROL 1,000 UNITS 25 MCG TAB PO SCH (07:47)
--- NOTE | 2023-01-22 07:52 | Hospitalist Progress Note ---
Date of Service January 22, 2023 Assessment & Plan (1) Status post surgery: Plan: 72-year-old female with past med significant for type 2 diabetes, hypothyroidism, hyperlipidemia, hypertension, obesity s/p back surgery. S/p back surgery Management as per orthopedics Monitor H&H Diabetes type 2 Hold metformin and pioglitazone Insulin sliding scale Follow blood sugars Hypertension Hold home hydrochlorothiazide for now monitor BP Hyperlipidemia On WelChol Hypothyroidism On Synthyroid Disposition and DVT prophylaxis As per orthopedics Admission and Anticipated Discharge Date Admission Date: January 21, 2023 Subjective Pt seen in follow up of spinal surgery Currently laying in bed in NAD She already feels much better after surgery, says she has been ambulating. She still has Grayson catheter. No fever, chills, chest pain, shortness of breath Review of Systems 2 Review of Systems: All systems reviewed & are unremarkable except as noted in Subjective Physical Exam Physical Exam: General- WD/WN F in NAD Head- atraumatic Eyes- EOMI. ENT- oropharynx clear Neck- supple, no JVD. Lungs- clear to auscultation no wheezing or crackles. Heart- regular rhythm; no murmur, no gallop. Abdomen- normal bowel sounds, soft, nontender, no distension. Extremities- no pretibial edema, moves extremities. Neuro- alert, oriented x 3; EOMI; no facial palsy; no dysarthria; moves extremities. Musculoskeletal- s/p back surgery. Dressing intact. Moves extremities Skin- warm & dry Results & Data Results & Data Vital Signs (Past 12 Hours) Vital Signs Temp Pulse Resp BP Pulse Ox O2 Del Method O2 Flow Rate 01/22/23 03:56 36.8 C 67 16 93/55 L 94 Nasal Cannula 2 01/21/23 23:53 37.0 C 69 16 96/58 L 94 Nasal Cannula 2 01/21/23 20:04 36.6 C 80 17 113/65 93 Nasal Cannula 2 Laboratory Results 01/22/23 01/21/23 01/21/23 Range/Units 06:27 20:35 14:17 WBC 11.18 H (4.8-10.8) K/ul RBC 3.46 L (4.20-5.40) M/uL Hgb 10.8 L (12.0-16.0) g/dl Hct 32.2 L (37.0-47.0) % MCV 93.1 (80.0-100.0) fL MCH 31.2 (25.0-34.0) pg MCHC 33.5 (32.0-36.0) g/dL RDW Std Deviation 49.7 H (36.4-46.3) fL RDW Coeff of Carine 14.4 (11.5-14.5) % Plt Count 160 (130-400) K/uL MPV 12.5 H (9.4-12.4) fL Immature Gran % (Auto) 0.4 % Neut % (Auto) 66.6 % Lymph % (Auto) 25.0 % [place] % (Auto) 7.6 % Eos % (Auto) 0.0 % Baso % (Auto) 0.4 % Neut # (Auto) 7.45 H (1.40-6.50) K/uL Lymph # (Auto) 2.80 (1.20-3.40) K/uL [place] # (Auto) 0.85 H (0.11-0.59) K/uL Eos # (Auto) 0.00 (0.00-0.50) K/uL Baso # (Auto) 0.04 (0.00-0.20) K/uL Immature Gran # (Auto) 0.04 (0.01-0.20) K/uL Sodium 140 (136-145) mmol/L Potassium 3.5 (3.5-5.1) mmol/L Chloride 107 (98-107) mmol/L Carbon Dioxide 29 (21-32) mmol/L Anion Gap 4 (3-11) BUN 10 (6-23) mg/dl Creatinine 0.62 (0.6-1.2) mg/dl Est Cr Clr Drug Dosing 103.2 ml/min Est GFR ( Amer) 105.9 ml/min Est GFR (Non-Af Amer) 91.4 ml/min BUN/Creatinine Ratio 16.1 (10-20) Glucose 118 H (70-99(Fasting)) mg/dl POC Glucose 219 H 147 H (70-99) mg/dl Estimat Average Glucose Pending Hemoglobin A1c Pending Calcium 8.1 L (8.6-10.3) mg/dl Blood Type Antibody Screen Crossmatch 01/21/23 01/21/23 Range/Units 09:07 08:19 WBC (4.8-10.8) K/ul RBC (4.20-5.40) M/uL Hgb (12.0-16.0) g/dl Hct (37.0-47.0) % MCV (80.0-100.0) fL MCH (25.0-34.0) pg MCHC (32.0-36.0) g/dL RDW Std Deviation (36.4-46.3) fL RDW Coeff of Carine (11.5-14.5) % Plt Count (130-400) K/uL MPV (9.4-12.4) fL Immature Gran % (Auto) % Neut % (Auto) % Lymph % (Auto) % [place] % (Auto) % Eos % (Auto) % Baso % (Auto) % Neut # (Auto) (1.40-6.50) K/uL Lymph # (Auto) (1.20-3.40) K/uL [place] # (Auto) (0.11-0.59) K/uL Eos # (Auto) (0.00-0.50) K/uL Baso # (Auto) (0.00-0.20) K/uL Immature Gran # (Auto) (0.01-0.20) K/uL Sodium (136-145) mmol/L Potassium (3.5-5.1) mmol/L Chloride (98-107) mmol/L Carbon Dioxide (21-32) mmol/L Anion Gap (3-11) BUN (6-23) mg/dl Creatinine (0.6-1.2) mg/dl Est Cr Clr Drug Dosing ml/min Est GFR ( Amer) ml/min Est GFR (Non-Af Amer) ml/min BUN/Creatinine Ratio (10-20) Glucose (70-99(Fasting)) mg/dl POC Glucose 99 (70-99) mg/dl Estimat Average Glucose Hemoglobin A1c Calcium (8.6-10.3) mg/dl Blood Type O Negative Antibody Screen NEGATIVE Crossmatch See Detail Medications Administered Current Inpatient Medications Acetaminophen (Acetaminophen 500 Mg Tab) 1,000 mg PO Q8H PRN PRN Reason: MILD Pain Scale 1,2,3 & Pre PT Stop: 02/20/23 17:29 Al Hydrox/Mg Hydrox/Simethicone (Aluminum/Magnesium Susp 30 Ml Udc) 30 ml PO Q6H PRN PRN Reason: Dyspepsia Stop: 02/20/23 17:29 Bisacodyl (Bisacodyl 10 Mg Supp) 10 mg [place] DAILY PRN PRN Reason: Constipation Stop: 02/20/23 17:29 Dextrose (Dextrose 50% 50 Ml Syringe) 25 - 50 ml IV UD PRN; Protocol PRN Reason: Hypoglycemia Protocol Stop: 02/20/23 19:14 Diphenhydramine HCl (Diphenhydramine Capsule 25 Mg Cap) 25 mg PO Q6H PRN PRN Reason: Allergic Rhinitis/Insomnia Stop: 02/20/23 17:29 Famotidine (Famotidine 20 Mg Tab) 20 mg PO Q12H PRN PRN Reason: Dyspepsia Stop: 02/20/23 17:29 Glucagon (Glucagon For Inj 1 Mg Vial) 1 mg IM UD PRN; Protocol PRN Reason: Hypoglycemia Protocol Stop: 02/20/23 19:14 Glucose (Glucose 40% Gel 15 Gm Tube) 15 - 30 gm PO UD PRN; Protocol PRN Reason: Hypoglycemia Protocol Stop: 02/20/23 19:14 Glucose (Glucose 10 Tab/Tube) 4 - 8 tab PO UD PRN; Protocol PRN Reason: Hypoglycemia Protocol Stop: 02/20/23 19:14 Hydrochlorothiazide (Hydrochlorothiazide 25 Mg Tab) 25 mg PO QAM [facility]ERNY Stop: 02/21/23 08:59 Last Admin: 01/22/23 07:47 Dose: 25 mg Hydromorphone HCl (Hydromorphone Inj 0.5 Mg/0.5 Ml Syr) 0.5 mg IV Q3H PRN PRN Reason: MODERATE Pain (Scale 4,5,6) & Pre PT Stop: 02/04/23 17:29 Hydromorphone HCl (Hydromorphone Inj 1 Mg/Ml Syringe) 1 mg IV Q3H PRN PRN Reason: SEVERE Pain (Scale 7,8,9,10) Stop: 02/04/23 17:29 Last Admin: 01/22/23 03:00 Dose: 1 mg Hydroxyzine HCl (Hydroxyzine Hcl 25 Mg Tab) 25 mg PO Q8H PRN PRN Reason: Anxiety Stop: 02/20/23 17:29 Promethazine HCl 12.5 mg/ (Sodium Chloride) 50.5 mls @ 202 mls/hr IV Q6H PRN PRN Reason: Nausea &/or Vomiting Stop: 02/20/23 17:29 Acetaminophen (Ofirmev) 1,000 mg in 100 mls @ 400 mls/hr IV Q8H PRN PRN Reason: Pain Rating 1-3 & Pre PT Stop: 01/22/23 17:32 Lorazepam 0.5 mg/ Syringe 0.5 mls @ 2 mls/min IV Q8H PRN; Protocol PRN Reason: Sedation/Anxiety Stop: 02/20/23 17:29 Dexamethasone 6 mg/ Syringe 1.5 mls @ 1 mls/min IV DAILY [facility] Stop: 01/24/23 09:02 Influenza Virus Vaccine Quadrival (Do Not Administer Flu Vaccine) 1 each N/A PRN PRN PRN Reason: Notification Stop: 02/20/23 17:29 Insulin Aspart (Insulin Aspart Per Unit Charge) 0 units SC ACHS [facility] Stop: 02/20/23 20:59 Last Admin: 01/21/23 20:52 Dose: 4 units Insulin Glargine (Lantus Per Unit Charge) 10 units SC DAILY [facility] Stop: 02/21/23 08:59 Levothyroxine Sodium (Levothyroxine Sodium 175 Mcg Tablet) 175 mcg PO DAILYBB [facility] Stop: 02/21/23 06:29 Last Admin: 01/22/23 05:30 Dose: 175 mcg Lorazepam (Lorazepam 0.5 Mg Tab) 0.5 mg PO Q8H PRN PRN Reason: Sedation/Anxiety Stop: 02/20/23 17:29 Magnesium Hydroxide (Magnesium Hydroxide Susp 30 Ml Udc) 30 ml PO Q24H PRN PRN Reason: Constipation Stop: 02/20/23 17:29 Metoclopramide HCl (Metoclopramide Hcl Inj 5 Mg/Ml 2 Ml Vial) 10 mg IV Q6H PRN PRN Reason: Nausea &/or Vomiting Stop: 02/20/23 17:29 Miscellaneous (Remove Transderm-Scop Patch) 1 each N/A ONE ONE Stop: 01/24/23 06:01 Miscellaneous (Check Scopolamine Patch Placement) 1 each N/A QS [facility] Stop: 01/24/23 05:59 Last Admin: 01/22/23 01:27 Dose: 1 each Miscellaneous (Carbohydrates For Hypoglycemia ) 15 - 30 gm PO UD PRN PRN Reason: Hypoglycemia Treatment Stop: 02/20/23 19:14 Miscellaneous Information (Pharmacy Glycemic Mgmt Consult) 1 each N/A UD PRN PRN Reason: Consult Stop: 02/20/23 17:29 Naloxone HCl (Naloxone Hcl 0.4 Mg/1 Ml Vial/Carp) 0.1 mg IV Q5M PRN PRN Reason: Oversedation/Resp depression Stop: 02/20/23 17:29 Ondansetron HCl (Ondansetron Inj 2 Mg/Ml 2 Ml Vial) 4 mg IV Q6H PRN PRN Reason: Nausea &/or Vomiting Stop: 02/20/23 17:29 Ondansetron HCl (Ondansetron 4 Mg Od Tab) 4 mg PO Q6H PRN PRN Reason: Nausea Stop: 02/20/23 17:29 Oxycodone HCl (Oxycodone Hcl Ir 5 Mg Tab (Immediate Release)) 5 - 10 mg PO Q4H PRN PRN Reason: Pain & Pre PT Stop: 02/04/23 17:29 Last Admin: 01/22/23 07:46 Dose: 5 mg Pneumococcal Polyvalent Vaccine (Do Not Administer Pneumococcal Vaccine) 1 each N/A PRN PRN PRN Reason: Notification Stop: 02/20/23 17:29 Polyethylene Glycol (Polyethylene (Miralax) 17 Gm Pack) 17 gm PO Q6 [facility]ERNY Stop: 02/21/23 05:59 Last Admin: 01/22/23 05:17 Dose: Not Given Senna/Docusate Sodium (Docusate Sodium/Senna 50/8.6mg Tab) 2 tab PO HS FERNY Stop: 02/20/23 20:59 Last Admin: 01/21/23 20:11 Dose: 2 tab Sodium Biphosphate/Sodium Phosphate (Sod Phosphate/Sod Biphosphate Enema 132 Ml Btl) 132 ml [place] ONE PRN PRN Reason: Constipation Stop: 02/20/23 17:29 Vitamin D (Cholecalciferol 1,000 Units 25 Mcg Tab) 1,000 units PO QAM [facility]ERNY Stop: 02/21/23 08:59 Last Admin: 01/22/23 07:47 Dose: 1,000 units
[2023-01-22] MEDS: INSULIN ASPART PER UNIT CHARGE SC SCH ×4 (08:35→20:07)
[2023-01-22] MEDS: dexAMETHasone 6 MG in SYRINGE 0 ML IV SCH (08:36)
[2023-01-22] MEDS ORDERED: PIOGLITAZONE HCL 15 MG TAB PO SCH (09:00)
[2023-01-22] MEDS ORDERED: hydroCHLOROthiazide 25 MG TAB PO SCH (09:00)
[2023-01-22] MEDS ORDERED: LANTUS PER UNIT CHARGE SC SCH (09:00)
--- NOTE | 2023-01-22 09:27 | Pharmacy Report ---
Pharmacy Glycemic Short Note 2 - Date of Service January 22, 2023 - Glycemic Short BSG Results (Last 24 hours): 01/21/23 01/21/23 01/22/23 14:17 20:35 06:27 Glucose 118 H POC Glucose 147 H 219 H 01/22/23 07:54 Glucose POC Glucose 117 H OUTPATIENT ANTIDIABETIC REGIMEN: * metformin 1gm PO BID * pioglitazone 15mg PO daily HbA1C: ASSESSMENT: * Pt is a 72 year old female POD #1 lumbar decompression/fusion and spinal hardware removal. History of DM2 on oral medications outpatient. Pharmacy consulted to assist with inpatient glycemic management. * BSGs: 99(pre-op), 115-715-160ca/dL since admission. Received 4 units of bolus insulin last night. * Received intra-op dexamethasone and 6mg IV daily ordered X 3 doses. Diet ordered. * Begin basal/bolus insulin. Lantus mild stress once daily given ongoing steroids. Novolog moderate stress scale ACHS. PLAN FOR INPATIENT GLYCEMIC CONTROL: * Hold outpatient oral diabetes medications * Basal insulin * Lantus 10 units SQ daily * Bolus insulin * NovoLog per scale ACHS or Q6hrs while NPO * Goal Range: Low 110 mg/dL - High 140 mg/dL * Correction Factor: 20 mg/dL/unit * Nutritional / Prandial insulin per carb ratio of 1 unit per 6 grams CHO consumed
[2023-01-22 10:20] LABS: Estimated Average Glucose 123 mg/dl; Hemoglobin A1C 5.9 % (4.5-5.6)
--- NOTE | 2023-01-22 12:31 | Orthopedic Progress Note ---
Date of Service January 22, 2023 Assessment & Plan (1) Neurogenic claudication due to lumbar spinal stenosis: Plan: This time continue physical therapy monitor MORGAN output anticipate rehab placement in the next day or so. Admission and Anticipated Discharge Date Admission Date: January 21, 2023 Subjective Back pain controlled leg pain markedly improved Physical Exam Physical Exam: Patient currently in bed. She is constricted testing. Appears comfortable. Results & Data Vital Signs (Past 12 Hours) Vital Signs Temp Pulse Resp BP BP Pulse Ox O2 Del Method 01/22/23 11:37 37.3 C 68 18 99/58 L 94 Room Air 01/22/23 09:00 Room Air 01/22/23 07:58 36.2 C L 01/22/23 07:50 73 18 96/61 L 96 Room Air 01/22/23 03:56 36.8 C 67 16 93/55 L 94 Nasal Cannula O2 Flow Rate 01/22/23 11:37 01/22/23 09:00 01/22/23 07:58 01/22/23 07:50 01/22/23 03:56 2
[2023-01-22] MEDS: HYDROCODONE/ACETAMOPHEN 5/325MG TAB PO PRN ×2 (12:45→18:19)
[2023-01-22] MEDS: COLESEVELAM HCL 625MG TABLET PO SCH (16:34)
[2023-01-22] MEDS: DOCUSATE SODIUM/SENNA 50/8.6MG TAB PO SCH (20:07)
[2023-01-23] MEDS: POLYETHYLENE (MIRALAX) 17 GM PACK PO SCH ×4 (05:45→23:02)
[2023-01-23] MEDS: LEVOTHYROXINE SODIUM 175 MCG TABLET PO SCH (05:45)
[2023-01-23] MEDS: HYDROCODONE/ACETAMOPHEN 5/325MG TAB PO PRN ×3 (05:59→23:02)
[2023-01-23 07:19] LABS: Hemoglobin 10.4 g/dl (12.0-16.0); Mean Corpuscular Hemoglobin 31.2 pg (25.0-34.0); Mean Corpuscular Hgb Conc 33.5 g/dL (32.0-36.0); Mean Corpuscular Volume 93.1 fL (80.0-100.0); Mean Platelet Volume 12.4 fL (9.4-12.4); Platelet Count 133 K/uL (130-400); RDW Coefficient of Variation 14.5 % (11.5-14.5); RDW Standard Deviation 49.4 fL (36.4-46.3); Red Blood Count 3.33 M/uL (4.20-5.40); White Blood Count 11.57 K/ul (4.8-10.8)
[2023-01-23] MEDS: dexAMETHasone 6 MG in SYRINGE 0 ML IV SCH (07:24)
[2023-01-23] MEDS: CHECK SCOPOLAMINE PATCH PLACEMENT SCH ×3 (07:24→23:02)
[2023-01-23] MEDS: COLESEVELAM HCL 625MG TABLET PO SCH ×2 (07:25→17:38)
[2023-01-23] MEDS: CHOLECALCIFEROL 1,000 UNITS 25 MCG TAB PO SCH (07:25)
[2023-01-23 07:53] LABS: BUN Creatinine Ratio 16.1 (10-20); Calcium 8.2 mg/dl (8.6-10.3); Creatinine Clr Calc Pharmacy 114.2 ml/min; Est GFR (African American) 109.5 ml/min; Est GFR (Non-African American) 94.5 ml/min; Magnesium 1.7 mg/dl (1.7-2.4); Phosphorus 2.7 mg/dl (2.5-4.9); Potassium 3.2 mmol/L (3.5-5.1)
[2023-01-23] MEDS: LANTUS PER UNIT CHARGE SC SCH (08:27)
[2023-01-23] MEDS: INSULIN ASPART PER UNIT CHARGE SC SCH ×4 (08:27→21:23)
[2023-01-23] MEDS ORDERED: POTASSIUM CHLORIDE CRTAB 20 MEQ TABCR PO STA (08:40)
--- NOTE | 2023-01-23 09:17 | Orthopedic Progress Note ---
Date of Service January 23, 2023 Assessment & Plan (1) Neurogenic claudication due to lumbar spinal stenosis: Plan: At this time we will continue physical therapy monitor MORGAN output anticipate discharge to rehab tomorrow. Admission and Anticipated Discharge Date Admission Date: January 21, 2023 Subjective Back pain controlled leg pain improved Physical Exam Physical Exam: Patient is currently in bed. She is comfortable. Is concerned to testing. Results & Data Vital Signs (Past 12 Hours) Vital Signs Temp Pulse Resp BP Pulse Ox O2 Del Method 01/23/23 08:00 Room Air 01/23/23 07:15 36.7 C 83 18 111/65 93 Room Air Queries Orthopedic Spine Acute Posthemorrhagic Anemia: Yes Obesity: Yes
[2023-01-23] MEDS: MAGNESIUM OXIDE 400 MG TAB PO SCH ×2 (09:24→19:59)
--- NOTE | 2023-01-23 10:53 | Pharmacy Report ---
Pharmacy Glycemic Short Note 2 - Date of Service January 23, 2023 - Glycemic Short BSG Results (Last 24 hours): 01/22/23 01/22/23 01/22/23 11:34 16:46 20:01 Glucose POC Glucose 186 H 175 H 157 H 01/23/23 01/23/23 06:57 07:51 Glucose 110 H POC Glucose 126 H OUTPATIENT ANTIDIABETIC REGIMEN: * metformin 1gm PO BID * pioglitazone 15mg PO daily HbA1C: 5.9% 01/22/23 ASSESSMENT: 01/23/23 * Patient received 37 units of insulin yesterday, 10 units basal, blood sugars slightly above goal yesterdays - increase basal today to better cover steroids. * CF/CR tightened yesterday, continue at this time, tighten if further BSG rise w/ meals. * Plan to discharge to rehab tomorrow. 01/22/23 * Pt is a 72 year old female POD #1 lumbar decompression/fusion and spinal hardware removal. History of DM2 on oral medications outpatient. Pharmacy consulted to assist with inpatient glycemic management. * BSGs: 99(pre-op), 290-499-381hj/dL since admission. Received 4 units of bolus insulin last night. * Received intra-op dexamethasone and 6mg IV daily ordered X 3 doses. Diet ordered. * Begin basal/bolus insulin. Lantus mild stress once daily given ongoing steroids. Novolog moderate stress scale ACHS. PLAN FOR INPATIENT GLYCEMIC CONTROL: * Hold outpatient oral diabetes medications * Basal insulin * Lantus 15 units SQ daily with IV Dexamethasone * Bolus insulin * NovoLog per scale ACHS or Q6hrs while NPO * Goal Range: Low 110 mg/dL - High 140 mg/dL * Correction Factor: 20 mg/dL/unit * Nutritional / Prandial insulin per carb ratio of 1 unit per 6 grams CHO consumed
--- NOTE | 2023-01-23 12:45 | Hospitalist Progress Note ---
Date of Service January 23, 2023 Assessment & Plan (1) Status post surgery: Plan: 72-year-old female with past med significant for type 2 diabetes, hypothyroidism, hyperlipidemia, hypertension, obesity s/p back surgery. S/p back surgery Management as per orthopedics Monitor H&H Current hgb 10.4, essentially unchanged from previous, stable Diabetes type 2 Hold metformin and pioglitazone Insulin sliding scale Follow blood sugars Hypertension Hold home hydrochlorothiazide for now monitor BP Hyperlipidemia On WelChol Hypothyroidism On Synthyroid Disposition and DVT prophylaxis As per orthopedics Admission and Anticipated Discharge Date Admission Date: January 21, 2023 Subjective Pt seen in follow up of spinal surgery Currently laying in bed in NAD She already feels much better after surgery, says she has been ambulating. Grayson catheter was removed and she is voiding w/o difficulty. Passing flatus. No fever, chills, chest pain, shortness of breath Plan to dc to rehab tmrw Review of Systems Review of Systems: All systems reviewed & are unremarkable except as noted in Subjective Physical Exam Physical Exam: General- WD/WN F in NAD Head- atraumatic Eyes- EOMI. ENT- oropharynx clear Neck- supple, no JVD. Lungs- clear to auscultation no wheezing or crackles. Heart- regular rhythm; no murmur, no gallop. Abdomen- normal bowel sounds, soft, nontender, no distension. Extremities- no pretibial edema, moves extremities. Neuro- alert, oriented x 3; EOMI; no facial palsy; no dysarthria; moves extremities. Musculoskeletal- s/p back surgery. Dressing intact. Moves extremities Skin- warm & dry Results & Data Results & Data Vital Signs (Past 12 Hours) Vital Signs Temp Pulse Resp BP Pulse Ox O2 Del Method 01/23/23 08:00 Room Air 01/23/23 07:15 36.7 C 83 18 111/65 93 Room Air Laboratory Results 01/23/23 01/23/23 01/23/23 Range/Units 12:04 07:51 06:57 WBC 11.57 H (4.8-10.8) K/ul RBC 3.33 L (4.20-5.40) M/uL Hgb 10.4 L (12.0-16.0) g/dl Hct 31.0 L (37.0-47.0) % MCV 93.1 (80.0-100.0) fL MCH 31.2 (25.0-34.0) pg MCHC 33.5 (32.0-36.0) g/dL RDW Std Deviation 49.4 H (36.4-46.3) fL RDW Coeff of Carine 14.5 (11.5-14.5) % Plt Count 133 (130-400) K/uL MPV 12.4 (9.4-12.4) fL Sodium 136 (136-145) mmol/L Potassium 3.2 L (3.5-5.1) mmol/L Chloride 101 (98-107) mmol/L Carbon Dioxide 29 (21-32) mmol/L Anion Gap 6 (3-11) BUN 9 (6-23) mg/dl Creatinine 0.56 L (0.6-1.2) mg/dl Est Cr Clr Drug Dosing 114.2 ml/min Est GFR ( Amer) 109.5 ml/min Est GFR (Non-Af Amer) 94.5 ml/min BUN/Creatinine Ratio 16.1 (10-20) Glucose 110 H (70-99(Fasting)) mg/dl POC Glucose 211 H 126 H (70-99) mg/dl Calcium 8.2 L (8.6-10.3) mg/dl Phosphorus 2.7 (2.5-4.9) mg/dl Magnesium 1.7 (1.7-2.4) mg/dl Crossmatch 01/22/23 01/22/23 01/21/23 Range/Units 20:01 16:46 08:19 WBC (4.8-10.8) K/ul RBC (4.20-5.40) M/uL Hgb (12.0-16.0) g/dl Hct (37.0-47.0) % MCV (80.0-100.0) fL MCH (25.0-34.0) pg MCHC (32.0-36.0) g/dL RDW Std Deviation (36.4-46.3) fL RDW Coeff of Carine (11.5-14.5) % Plt Count (130-400) K/uL MPV (9.4-12.4) fL Sodium (136-145) mmol/L Potassium (3.5-5.1) mmol/L Chloride (98-107) mmol/L Carbon Dioxide (21-32) mmol/L Anion Gap (3-11) BUN (6-23) mg/dl Creatinine (0.6-1.2) mg/dl Est Cr Clr Drug Dosing ml/min Est GFR ( Amer) ml/min Est GFR (Non-Af Amer) ml/min BUN/Creatinine Ratio (10-20) Glucose (70-99(Fasting)) mg/dl POC Glucose 157 H 175 H (70-99) mg/dl Calcium (8.6-10.3) mg/dl Phosphorus (2.5-4.9) mg/dl Magnesium (1.7-2.4) mg/dl Crossmatch See Detail Medications Administered Current Inpatient Medications Acetaminophen (Acetaminophen 500 Mg Tab) 1,000 mg PO Q8H PRN PRN Reason: MILD Pain Scale 1,2,3 & Pre PT Stop: 02/20/23 17:29 Hydrocodone Bitart/Acetaminophen (Hydrocodone/Acetamophen 5/325mg Tab) 1 tab PO Q4 PRN PRN Reason: Pain Stop: 02/05/23 10:17 Last Admin: 01/23/23 05:59 Dose: 1 tab Al Hydrox/Mg Hydrox/Simethicone (Aluminum/Magnesium Susp 30 Ml Udc) 30 ml PO Q6H PRN PRN Reason: Dyspepsia Stop: 02/20/23 17:29 Bisacodyl (Bisacodyl 10 Mg Supp) 10 mg [place] DAILY PRN PRN Reason: Constipation Stop: 02/20/23 17:29 Colesevelam HCl (Colesevelam Hcl 625mg Tablet) 2 each PO BIDM FERNY Stop: 02/21/23 16:59 Last Admin: 01/23/23 07:25 Dose: 2 each Dextrose (Dextrose 50% 50 Ml Syringe) 25 - 50 ml IV UD PRN; Protocol PRN Reason: Hypoglycemia Protocol Stop: 02/20/23 19:14 Diphenhydramine HCl (Diphenhydramine Capsule 25 Mg Cap) 25 mg PO Q6H PRN PRN Reason: Allergic Rhinitis/Insomnia Stop: 02/20/23 17:29 Famotidine (Famotidine 20 Mg Tab) 20 mg PO Q12H PRN PRN Reason: Dyspepsia Stop: 02/20/23 17:29 Glucagon (Glucagon For Inj 1 Mg Vial) 1 mg IM UD PRN; Protocol PRN Reason: Hypoglycemia Protocol Stop: 02/20/23 19:14 Glucose (Glucose 40% Gel 15 Gm Tube) 15 - 30 gm PO UD PRN; Protocol PRN Reason: Hypoglycemia Protocol Stop: 02/20/23 19:14 Glucose (Glucose 10 Tab/Tube) 4 - 8 tab PO UD PRN; Protocol PRN Reason: Hypoglycemia Protocol Stop: 02/20/23 19:14 Hydrochlorothiazide (Hydrochlorothiazide 25 Mg Tab) 25 mg PO QAM [facility] Stop: 02/21/23 08:59 Last Admin: 01/22/23 07:47 Dose: 25 mg Hydromorphone HCl (Hydromorphone Inj 0.5 Mg/0.5 Ml Syr) 0.5 mg IV Q3H PRN PRN Reason: MODERATE Pain (Scale 4,5,6) & Pre PT Stop: 02/04/23 17:29 Hydromorphone HCl (Hydromorphone Inj 1 Mg/Ml Syringe) 1 mg IV Q3H PRN PRN Reason: SEVERE Pain (Scale 7,8,9,10) Stop: 02/04/23 17:29 Last Admin: 01/22/23 23:37 Dose: 1 mg Hydroxyzine HCl (Hydroxyzine Hcl 25 Mg Tab) 25 mg PO Q8H PRN PRN Reason: Anxiety Stop: 02/20/23 17:29 Promethazine HCl 12.5 mg/ (Sodium Chloride) 50.5 mls @ 202 mls/hr IV Q6H PRN PRN Reason: Nausea &/or Vomiting Stop: 02/20/23 17:29 Lorazepam 0.5 mg/ Syringe 0.5 mls @ 2 mls/min IV Q8H PRN; Protocol PRN Reason: Sedation/Anxiety Stop: 02/20/23 17:29 Dexamethasone 6 mg/ Syringe 1.5 mls @ 1 mls/min IV DAILY [facility] Stop: 01/24/23 09:02 Last Admin: 01/23/23 07:24 Dose: 1 mls/min Influenza Virus Vaccine Quadrival (Do Not Administer Flu Vaccine) 1 each N/A PRN PRN PRN Reason: Notification Stop: 02/20/23 17:29 Insulin Aspart (Insulin Aspart Per Unit Charge) 0 units SC ACHS [facility] Stop: 02/20/23 20:59 Last Admin: 01/23/23 12:12 Dose: 9 units Insulin Glargine (Lantus Per Unit Charge) 15 units SC DAILY [facility]; Protocol Stop: 01/24/23 09:01 Last Admin: 01/23/23 08:27 Dose: 15 units Levothyroxine Sodium (Levothyroxine Sodium 175 Mcg Tablet) 175 mcg PO DAILYBB [facility] Stop: 02/21/23 06:29 Last Admin: 01/23/23 05:45 Dose: 175 mcg Lorazepam (Lorazepam 0.5 Mg Tab) 0.5 mg PO Q8H PRN PRN Reason: Sedation/Anxiety Stop: 02/20/23 17:29 Magnesium Hydroxide (Magnesium Hydroxide Susp 30 Ml Udc) 30 ml PO Q24H PRN PRN Reason: Constipation Stop: 02/20/23 17:29 Magnesium Oxide (Magnesium Oxide 400 Mg Tab) 400 mg PO BID [facility] Stop: 02/22/23 08:59 Last Admin: 01/23/23 09:24 Dose: 400 mg Metoclopramide HCl (Metoclopramide Hcl Inj 5 Mg/Ml 2 Ml Vial) 10 mg IV Q6H PRN PRN Reason: Nausea &/or Vomiting Stop: 02/20/23 17:29 Miscellaneous (Remove Transderm-Scop Patch) 1 each N/A ONE ONE Stop: 01/24/23 06:01 Miscellaneous (Check Scopolamine Patch Placement) 1 each N/A QS [facility] Stop: 01/24/23 05:59 Last Admin: 01/23/23 07:24 Dose: 1 each Miscellaneous (Carbohydrates For Hypoglycemia ) 15 - 30 gm PO UD PRN PRN Reason: Hypoglycemia Treatment Stop: 02/20/23 19:14 Miscellaneous Information (Pharmacy Glycemic Mgmt Consult) 1 each N/A UD PRN PRN Reason: Consult Stop: 02/20/23 17:29 Naloxone HCl (Naloxone Hcl 0.4 Mg/1 Ml Vial/Carp) 0.1 mg IV Q5M PRN PRN Reason: Oversedation/Resp depression Stop: 02/20/23 17:29 Ondansetron HCl (Ondansetron Inj 2 Mg/Ml 2 Ml Vial) 4 mg IV Q6H PRN PRN Reason: Nausea &/or Vomiting Stop: 02/20/23 17:29 Ondansetron HCl (Ondansetron 4 Mg Od Tab) 4 mg PO Q6H PRN PRN Reason: Nausea Stop: 02/20/23 17:29 Pneumococcal Polyvalent Vaccine (Do Not Administer Pneumococcal Vaccine) 1 each N/A PRN PRN PRN Reason: Notification Stop: 02/20/23 17:29 Polyethylene Glycol (Polyethylene (Miralax) 17 Gm Pack) 17 gm PO Q6 [facility] Stop: 02/21/23 05:59 Last Admin: 01/23/23 12:17 Dose: 17 gm Senna/Docusate Sodium (Docusate Sodium/Senna 50/8.6mg Tab) 2 tab PO HS [facility] Stop: 02/20/23 20:59 Last Admin: 01/22/23 20:07 Dose: Not Given Sodium Biphosphate/Sodium Phosphate (Sod Phosphate/Sod Biphosphate Enema 132 Ml Btl) 132 ml [place] ONE PRN PRN Reason: Constipation Stop: 02/20/23 17:29 Vitamin D (Cholecalciferol 1,000 Units 25 Mcg Tab) 1,000 units PO QAM [facility] Stop: 02/21/23 08:59 Last Admin: 01/23/23 07:25 Dose: 1,000 units
[2023-01-23] MEDS: DOCUSATE SODIUM/SENNA 50/8.6MG TAB PO SCH (19:59)
[2023-01-24] MEDS: HYDROCODONE/ACETAMOPHEN 5/325MG TAB PO PRN (04:54)
[2023-01-24] MEDS: POLYETHYLENE (MIRALAX) 17 GM PACK PO SCH (05:02)
[2023-01-24] MEDS: LEVOTHYROXINE SODIUM 175 MCG TABLET PO SCH (05:34)
[2023-01-24] MEDS: CHOLECALCIFEROL 1,000 UNITS 25 MCG TAB PO SCH (07:52)
[2023-01-24] MEDS: dexAMETHasone 6 MG in SYRINGE 0 ML IV SCH (07:52)
[2023-01-24] MEDS: COLESEVELAM HCL 625MG TABLET PO SCH (07:52)
[2023-01-24 07:58] LABS: Hematocrit (blood only) 31.1 % (37.0-47.0); Hemoglobin 10.6 g/dl (12.0-16.0); Mean Corpuscular Hemoglobin 31.2 pg (25.0-34.0); Mean Corpuscular Hgb Conc 34.1 g/dL (32.0-36.0); Mean Corpuscular Volume 91.5 fL (80.0-100.0); Mean Platelet Volume 12.6 fL (9.4-12.4); Nucleated RBC # (auto) 0.02 K/uL (0.00-0.12); Nucleated RBC % (auto) 0.2 %; Platelet Count 149 K/uL (130-400); RDW Coefficient of Variation 14.6 % (11.5-14.5); RDW Standard Deviation 48.8 fL (36.4-46.3); White Blood Count 11.68 K/ul (4.8-10.8)
[2023-01-24 08:11] LABS: BUN Creatinine Ratio 18.2 (10-20); Calcium 8.6 mg/dl (8.6-10.3); Creatinine Clr Calc Pharmacy 116.3 ml/min; Est GFR (African American) 110.1 ml/min; Potassium 3.5 mmol/L (3.5-5.1)
[2023-01-24] MEDS: LANTUS PER UNIT CHARGE SC SCH (08:42)
[2023-01-24] MEDS: INSULIN ASPART PER UNIT CHARGE SC SCH ×2 (08:42→11:55)
[2023-01-24] MEDS: MAGNESIUM OXIDE 400 MG TAB PO SCH (08:43)
--- NOTE | 2023-01-24 08:49 | Discharge Summary ---
Date of Service January 24, 2023 Admission HPI Per Admitting Provider This is a 72-year-old female who presents for chronic persistent back and leg pain after failing course of nonoperative care is here for surgical invention. Principal Diagnosis Lumbar spinal stenosis with neurogenic claudication Discharge Data Allergies Allergy/AdvReac Type Severity Reaction Status Date / Time Sulfa (Sulfonamide Allergy Mild Rash Verified 12/31/22 12:15 Antibiotics) tramadol AdvReac Mild Auditory Verified 12/31/22 12:15 hallucinations Consultations 01/21/23 17:30 Consult Hospitalist Routine Procedures Performed Operation Date: 01/21/23 09:35 Actual Procedures p L4-S1 Decompression, L2-S1 Fusion,Spinal Cord Monitoring(Not Applicable) - Timothy Herr DO s L2-L4 Hardware Removal, (Not Applicable) - Timothy Herr DO Ordered Studies 01/21/23 09:35 FL lumbar spine 2-3V Routine Hospital Course (1) Neurogenic claudication due to lumbar spinal stenosis: Patient underwent multilevel lumbar decompression fusion trial as well as taken to orthopedic for postoperative. Postop and when she is up and ambulating breast postop day #2 approximately 3 pain was well controlled MORGAN drain decreased probably. Simply discharged to rehab. Discharge orders instructions found in chart for review. Total Time Total Time Spent Total Time Spent (In Minutes): 20 minutes Discharge Plan Discharge Items Patient Disposition: Transfer Inpatient Rehab Fac Reason For Visit: POSTOP Discharge Diagnosis: Lumbar spinal stenosis with neurogenic claudication Activity: As commented below Non-emergency contact: Primary Care Provider Call non-emergency contact if: you have any medication questions Follow-up/Referrals: Jadyn Johnson DO [Primary Care Provider] - Diet: Regular Addtl Attending Provider Instructions: ACTIVITY RECOMMENDATIONS: SELF CARE INSTRUCTIONS AFTER THORACIC/LUMBAR FUSIONS 1. You may walk to your tolerance. It is good exercise for your legs and back. Expect some back and intermittent leg aches and pains. 2. You may perform "counter-top" level activities (make a sandwich, praful with a project, etc.). 3. No bending or lifting of more than 10 pounds or back twisting of any nature (roll like a log when turning in bed). 4. You may ride in a car for 20-30 minutes at a time. No driving until after your first visit with your doctor. 5. Frequent changes of position and restricting sitting to 30 minutes at a time will help limit the amount of back spasms and stiffness you may experience. 6. You may discontinue the use of ambulatory aids (cane, crutches, etc.) once your strength and confidence allow. 7. You may credit union examiner the shower and let water strike your incision when you arrive home at least once daily. Do not take a tub bath, sit in a hot tub or go into a swimming pool until after your first recheck in the office. SPECIAL CARE INSTRUCTIONS: VERY IMPORTANT TO READ AND REVIEW A. Your surgical incision has been closed with a cosmetic suture under the skin that will dissolve in about 6 weeks. In 14 days, you can use a pair of clean scissors and cut the suture that is left outside of the skin at the ends of your incision. 1. The small skin tapes can be removed 7 days after surgery if they have not fallen off by that point. 2. You may keep the wound open to air as much as possible to promote healing after post-op day number 5 unless told otherwise by your doctor. 3. If you think the wound looks like it is becoming infected (redness or worsening drainage) and/or you are experiencing fever, chill or worsening back pain and muscle spasms, contact the office so that we may evaluate you as soon as possible. B. Complications are uncommon, but please contact us if you have any signs or symptoms of: 1. wound infection (fever higher than 102.5 degrees F, redness, separation of wound, drainage, or increasing pain from the incision) 2. blood clots in legs (pain, swelling, redness and warmth in legs) 3. urinary tract infection (fever higher than 102.5 degrees F, burning upon urination or increased frequency of urination) 4. nerve problems (inability to walk on your toes or heels, numbness, loss of bowel or bladder control) 5. any other symptoms that concern you C. Please call the office at if you have any concerns or questions about your operation or recovery. D. No smoking! Smoking drastically decreases the chance of a solid fusion. E. Do not take any anti-inflammatory medications (Indocin, Advil, Motrin, Aspirin, Naprosyn, etc.) as these may inhibit the chance of a solid fusion. Tylenol is okay to take for pain. MANAGING PAIN AFTER SPINAL SURGERY 1. Narcotic medication is intended for short-term use and will be provided for surgical pain. Surgical pain usually lasts for a period of 4-6 weeks. Narcotic medication includes Percocet, Vicodin, Darvocet, Tylenol #3 or Lortab. 2. Longer-term pain is more appropriately treated with non-narcotic medication such as Tylenol ES. 3. Muscle spasm is not appropriately treated with narcotics. Muscle relaxers such as Soma, Flexeril or Skelaxin can be used along with Tylenol ES. 4. Remember that we all live with some "aches and pains". This is not unusual or uncommon after an injury or as we get older. a. Back pain is expected and may include muscle spasms for 4 to 6 weeks after surgery. The pain should gradually improve. If the pain worsens for no apparent reason, please contact the office. b. Intermittent leg pain may also be experienced and should not be concerned about unless it worsens for no apparent reason. If so, please contact the office. 5. We will provide appropriate medication within the normal guidelines of their prescribed use. We will also be very cautious and aware of potential abuse and extended duration of patients' medication needs. a. Pain medications are for your comfort and to assist with sleep and rest so that the tissue can heal. They are not provided in order to return to normal activity and should not be used through the day. To do so or worsening pain at night can result from ongoing tissue damage and development of tolerance to the prescribed medicine. 6. Please allow 2-3 days to process refills. Prescriptions will not be mailed but must be picked up at the office. FOLLOW UP VISIT: Keep your scheduled follow-up appointment. Any questions, please call the office at . Pending Studies at Discharge: No Stand-Alone Forms: My [employer], Smoking Cessation Skilled Items Patient informed of condition?: Yes DNR: No Discharge Level of Care: Acute rehab Communicable Disease: No Discharge Prognosis: Improving Lines: None Urinary Catheter: No Medications and DC Order Prescriptions: New hydrocodone-acetaminophen 5-325 mg tablet 1 tab PO Q6H PRN (Reason: pain) Qty: 30 0RF tramadol 50 mg tablet 50 mg PO Q6H PRN (Reason: pain, moderate) Qty: 30 0RF Continued pioglitazone 15 mg Tablet 15 mg PO QAM colesevelam [WelChol] 625 mg Tablet 1,250 mg PO BID metformin 1,000 mg Tablet 1,000 mg PO BIDWMEAL hydrochlorothiazide 25 mg Tablet 25 mg PO QAM cholecalciferol (vitamin D3) [Vitamin D3] 25 mcg (1,000 unit) Capsule 25 mcg PO QAM levothyroxine 150 mcg Tablet 175 mcg PO QAM colchicine 0.6 mg Tablet 0.6 mg PO UD PRN (Reason: prn) Patient Comments: patient states 2 tabs then one tab one hour later prn acetaminophen 650 mg Tablet 650 mg PO BID PRN (Reason: Pain) Discharge Orders: Discharge Order (Routine); Ordered 01/24/23 Ordered By: Timothy Herr Admission Data Admit Date/Time: 01/21/23 14:01 Attending Provider: Timothy Herr Admit Provider: Timothy Herr Primary Care Provider: Jadyn Johnson Other Providers: Gladys Erickson; Lorenzo Reyes; [facility]
[2023-01-24] MEDS ORDERED: POTASSIUM CHLORIDE CRTAB 20 MEQ TABCR PO STA (09:40)
--- NOTE | 2023-01-24 09:43 | Hospitalist Progress Note ---
Date of Service January 24, 2023 Assessment & Plan (1) Status post surgery: Plan: 72-year-old female with past med significant for type 2 diabetes, hypothyroidism, hyperlipidemia, hypertension, obesity s/p back surgery. S/p back surgery Management as per orthopedics Monitor H&H Current hgb 10.6, essentially unchanged from previous, stable Diabetes type 2 Hold metformin and pioglitazone Insulin sliding scale Follow blood sugars Hypertension Hold home hydrochlorothiazide for now - recommend to hold for at least next 2 days after discharge monitor BP Hyperlipidemia On WelChol Hypothyroidism On Synthyroid Disposition and DVT prophylaxis As per orthopedics Admission and Anticipated Discharge Date Admission Date: January 21, 2023 Subjective Pt seen in follow up of spinal surgery Currently laying in bed in NAD She already feels much better after surgery, says she has been ambulating. Grayson catheter was removed and she is voiding w/o difficulty. Passing flatus. No fever, chills, chest pain, shortness of breath Plan to dc to rehab today Review of Systems Review of Systems: All systems reviewed & are unremarkable except as noted in Subjective Physical Exam Physical Exam: General- WD/WN F in NAD Head- atraumatic Eyes- EOMI. ENT- oropharynx clear Neck- supple, no JVD. Lungs- clear to auscultation no wheezing or crackles. Heart- regular rhythm; no murmur, no gallop. Abdomen- normal bowel sounds, soft, nontender, no distension. Extremities- no pretibial edema, moves extremities. Neuro- alert, oriented x 3; EOMI; no facial palsy; no dysarthria; moves extremities. Musculoskeletal- s/p back surgery. Dressing intact. Moves extremities Skin- warm & dry Results & Data Results & Data Vital Signs (Past 12 Hours) Vital Signs Temp Pulse Pulse Resp BP BP Pulse Ox 01/24/23 09:17 36.7 C 75 72 16 111/71 109/64 95 01/24/23 08:48 95 01/24/23 08:00 01/24/23 07:08 36.7 C 72 16 111/71 94 O2 Del Method 01/24/23 09:17 01/24/23 08:48 Room Air 01/24/23 08:00 Room Air 01/24/23 07:08 Room Air Laboratory Results 01/24/23 01/24/23 01/23/23 Range/Units 07:24 07:10 20:36 WBC 11.68 H (4.8-10.8) K/ul RBC 3.40 L (4.20-5.40) M/uL Hgb 10.6 L (12.0-16.0) g/dl Hct 31.1 L (37.0-47.0) % MCV 91.5 (80.0-100.0) fL MCH 31.2 (25.0-34.0) pg MCHC 34.1 (32.0-36.0) g/dL RDW Std Deviation 48.8 H (36.4-46.3) fL RDW Coeff of Carine 14.6 H (11.5-14.5) % Plt Count 149 (130-400) K/uL MPV 12.6 H (9.4-12.4) fL Absolute Nucleated RBC 0.02 (0.00-0.12) K/uL Nucleated RBC % (auto) 0.2 % Sodium 137 (136-145) mmol/L Potassium 3.5 (3.5-5.1) mmol/L Chloride 101 (98-107) mmol/L Carbon Dioxide 30 (21-32) mmol/L Anion Gap 6 (3-11) BUN 10 (6-23) mg/dl Creatinine 0.55 L (0.6-1.2) mg/dl Est Cr Clr Drug Dosing 116.3 ml/min Est GFR ( Amer) 110.1 ml/min Est GFR (Non-Af Amer) 95.0 ml/min BUN/Creatinine Ratio 18.2 (10-20) Glucose 103 H (70-99(Fasting)) mg/dl POC Glucose 104 H 140 H (70-99) mg/dl Calcium 8.6 (8.6-10.3) mg/dl 01/23/23 01/23/23 Range/Units 17:00 12:04 WBC (4.8-10.8) K/ul RBC (4.20-5.40) M/uL Hgb (12.0-16.0) g/dl Hct (37.0-47.0) % MCV (80.0-100.0) fL MCH (25.0-34.0) pg MCHC (32.0-36.0) g/dL RDW Std Deviation (36.4-46.3) fL RDW Coeff of Carine (11.5-14.5) % Plt Count (130-400) K/uL MPV (9.4-12.4) fL Absolute Nucleated RBC (0.00-0.12) K/uL Nucleated RBC % (auto) % Sodium (136-145) mmol/L Potassium (3.5-5.1) mmol/L Chloride (98-107) mmol/L Carbon Dioxide (21-32) mmol/L Anion Gap (3-11) BUN (6-23) mg/dl Creatinine (0.6-1.2) mg/dl Est Cr Clr Drug Dosing ml/min Est GFR ( Amer) ml/min Est GFR (Non-Af Amer) ml/min BUN/Creatinine Ratio (10-20) Glucose (70-99(Fasting)) mg/dl POC Glucose 178 H 211 H (70-99) mg/dl Calcium (8.6-10.3) mg/dl Medications Administered Current Inpatient Medications Acetaminophen (Acetaminophen 500 Mg Tab) 1,000 mg PO Q8H PRN PRN Reason: MILD Pain Scale 1,2,3 & Pre PT Stop: 02/20/23 17:29 Hydrocodone Bitart/Acetaminophen (Hydrocodone/Acetamophen 5/325mg Tab) 1 tab PO Q4 PRN PRN Reason: Pain Stop: 02/05/23 10:17 Last Admin: 01/24/23 04:54 Dose: 1 tab Al Hydrox/Mg Hydrox/Simethicone (Aluminum/Magnesium Susp 30 Ml Udc) 30 ml PO Q6H PRN PRN Reason: Dyspepsia Stop: 02/20/23 17:29 Bisacodyl (Bisacodyl 10 Mg Supp) 10 mg MN DAILY PRN PRN Reason: Constipation Stop: 02/20/23 17:29 Colesevelam HCl (Colesevelam Hcl 625mg Tablet) 2 each PO BIDM FERNY Stop: 02/21/23 16:59 Last Admin: 01/24/23 07:52 Dose: 2 each Dextrose (Dextrose 50% 50 Ml Syringe) 25 - 50 ml IV UD PRN; Protocol PRN Reason: Hypoglycemia Protocol Stop: 02/20/23 19:14 Diphenhydramine HCl (Diphenhydramine Capsule 25 Mg Cap) 25 mg PO Q6H PRN PRN Reason: Allergic Rhinitis/Insomnia Stop: 02/20/23 17:29 Famotidine (Famotidine 20 Mg Tab) 20 mg PO Q12H PRN PRN Reason: Dyspepsia Stop: 02/20/23 17:29 Glucagon (Glucagon For Inj 1 Mg Vial) 1 mg IM UD PRN; Protocol PRN Reason: Hypoglycemia Protocol Stop: 02/20/23 19:14 Glucose (Glucose 40% Gel 15 Gm Tube) 15 - 30 gm PO UD PRN; Protocol PRN Reason: Hypoglycemia Protocol Stop: 02/20/23 19:14 Glucose (Glucose 10 Tab/Tube) 4 - 8 tab PO UD PRN; Protocol PRN Reason: Hypoglycemia Protocol Stop: 02/20/23 19:14 Hydrochlorothiazide (Hydrochlorothiazide 25 Mg Tab) 25 mg PO QAM FERNY Stop: 02/21/23 08:59 Last Admin: 01/22/23 07:47 Dose: 25 mg Hydromorphone HCl (Hydromorphone Inj 0.5 Mg/0.5 Ml Syr) 0.5 mg IV Q3H PRN PRN Reason: MODERATE Pain (Scale 4,5,6) & Pre PT Stop: 02/04/23 17:29 Hydromorphone HCl (Hydromorphone Inj 1 Mg/Ml Syringe) 1 mg IV Q3H PRN PRN Reason: SEVERE Pain (Scale 7,8,9,10) Stop: 02/04/23 17:29 Last Admin: 01/22/23 23:37 Dose: 1 mg Hydroxyzine HCl (Hydroxyzine Hcl 25 Mg Tab) 25 mg PO Q8H PRN PRN Reason: Anxiety Stop: 02/20/23 17:29 Promethazine HCl 12.5 mg/ (Sodium Chloride) 50.5 mls @ 202 mls/hr IV Q6H PRN PRN Reason: Nausea &/or Vomiting Stop: 02/20/23 17:29 Lorazepam 0.5 mg/ Syringe 0.5 mls @ 2 mls/min IV Q8H PRN; Protocol PRN Reason: Sedation/Anxiety Stop: 02/20/23 17:29 Influenza Virus Vaccine Quadrival (Do Not Administer Flu Vaccine) 1 each N/A PRN PRN PRN Reason: Notification Stop: 02/20/23 17:29 Insulin Aspart (Insulin Aspart Per Unit Charge) 0 units SC ACHS [facility] Stop: 02/20/23 20:59 Last Admin: 01/24/23 08:42 Dose: 9 units Levothyroxine Sodium (Levothyroxine Sodium 175 Mcg Tablet) 175 mcg PO DAILYBB [facility] Stop: 02/21/23 06:29 Last Admin: 01/24/23 05:34 Dose: 175 mcg Lorazepam (Lorazepam 0.5 Mg Tab) 0.5 mg PO Q8H PRN PRN Reason: Sedation/Anxiety Stop: 02/20/23 17:29 Magnesium Hydroxide (Magnesium Hydroxide Susp 30 Ml Udc) 30 ml PO Q24H PRN PRN Reason: Constipation Stop: 02/20/23 17:29 Magnesium Oxide (Magnesium Oxide 400 Mg Tab) 400 mg PO BID [facility] Stop: 02/22/23 08:59 Last Admin: 01/24/23 08:43 Dose: 400 mg Metoclopramide HCl (Metoclopramide Hcl Inj 5 Mg/Ml 2 Ml Vial) 10 mg IV Q6H PRN PRN Reason: Nausea &/or Vomiting Stop: 02/20/23 17:29 Miscellaneous (Carbohydrates For Hypoglycemia ) 15 - 30 gm PO UD PRN PRN Reason: Hypoglycemia Treatment Stop: 02/20/23 19:14 Miscellaneous Information (Pharmacy Glycemic Mgmt Consult) 1 each N/A UD PRN PRN Reason: Consult Stop: 02/20/23 17:29 Naloxone HCl (Naloxone Hcl 0.4 Mg/1 Ml Vial/Carp) 0.1 mg IV Q5M PRN PRN Reason: Oversedation/Resp depression Stop: 02/20/23 17:29 Ondansetron HCl (Ondansetron Inj 2 Mg/Ml 2 Ml Vial) 4 mg IV Q6H PRN PRN Reason: Nausea &/or Vomiting Stop: 02/20/23 17:29 Ondansetron HCl (Ondansetron 4 Mg Od Tab) 4 mg PO Q6H PRN PRN Reason: Nausea Stop: 02/20/23 17:29 Pneumococcal Polyvalent Vaccine (Do Not Administer Pneumococcal Vaccine) 1 each N/A PRN PRN PRN Reason: Notification Stop: 02/20/23 17:29 Polyethylene Glycol (Polyethylene (Miralax) 17 Gm Pack) 17 gm PO Q6 [facility] Stop: 02/21/23 05:59 Last Admin: 01/24/23 05:02 Dose: 17 gm Senna/Docusate Sodium (Docusate Sodium/Senna 50/8.6mg Tab) 2 tab PO HS [facility] Stop: 02/20/23 20:59 Last Admin: 01/23/23 19:59 Dose: 2 tab Sodium Biphosphate/Sodium Phosphate (Sod Phosphate/Sod Biphosphate Enema 132 Ml Btl) 132 ml MN ONE PRN PRN Reason: Constipation Stop: 02/20/23 17:29 Vitamin D (Cholecalciferol 1,000 Units 25 Mcg Tab) 1,000 units PO QAM [facility] Stop: 02/21/23 08:59 Last Admin: 01/24/23 07:52 Dose: 1,000 units
== END 2023-01-24 12:27 | DRG 455 ==
LOC: ASU 07:58 → PACUINP 14:01 → 3N 19:35

== ENCOUNTER 2023-02-11 10:16 | Inpatient (IN) ==
[2023-02-11] MEDS ORDERED: HYDROmorphone INJ 0.5 MG/0.5 ML SYR IV STA ×2 (10:28→13:18)
[2023-02-11] MEDS ORDERED: ONDANSETRON INJ 2 MG/ML 2 ML VIAL IV STA (10:28)
--- NOTE | 2023-02-11 10:31 | Emergency Department Note ---
Impression & Plan Intractable low back pain, 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 ED Provider Note Name: KIA MAC Age: 72 Sex: Female Arrives Via: Ambulance Informant: Patient, ED Provider: Jg Reinoso MD Chief Complaint: Back pain Impression: As per impressions above Medical Decision Making: Pleasant 72-year-old female who recently had lumbar spinal surgery at this facility. Initially doing well but rapid worsening over the last 1 to 2 weeks. Outpatient workup by surgeon revealed loosening of hardware/failure. Patient arrives with severe pain but no neurologic deficits. Given IV Dilaudid with vast improvement. Basic laboratory workup benign and otherwise preop orders were placed. Per patient plan is to go to the OR tomorrow. I discussed this with the surgeon and he will bring her in for pain control and further evaluation of management. Patient is on board with this and was Comfortable with IV Dilaudid. She was given some IV fluids as she notes due to the pain she had not been eating much. Otherwise patient looks well she is breathing comfortably has a good blood pressure soft abdomen and is in no distress besides back pain. Given patient recently and hospital as well as rehab facility COVID testing was obtained which is fortunately negative Triage/Nursing Notes reviewed by Me External Chart Review by me: Reviewed discharge summary January 24, 2023. This included her stay in the hospital lumbar surgery. Differential:Fracture of lumbar spinal hardware, infection, seroma, cauda equina, sepsis, many other pathologies considered. Vital Signs: reviewed and remarkable for no significant abnormalities Interventions: Dilaudid 0.5 mg IV x 2, normal saline bolus IV, Zofran IV Labs:ED labs Reviewed by me and remarkable for no significant abnormalities EKG:As per my interpretation. Indication preoperative eval. Normal sinus rhythm at 74 bpm and a QTc of 412. There is no ectopy nor ischemia. Consults:Dr. Herr of orthopedic surgery Plan: Disposition:Hospitalization. Condition: Good History of Present Illness: 72-year-old female arrives for evaluation of back pain. Patient with lumbar spinal surgery 3 weeks ago. Notes she did quite well with that was feeling great afterwards. She gone to rehab afterwards. Starting about 2 weeks ago though she started noticing increasing back spasms. Over the last week severe unrelenting pain. She was seen by her spinal surgeon last week diagnosed with migration of cage and need for reoperative repair. States the pain continues to worsen overnight and she was told by surgeon to come to the ER. She notes she will likely have surgery tomorrow based on what she had heard. She denies any specific spasm going down legs or weakness in the legs. But does note that the pain is so severe she cannot walk. She needs to keep her legs somewhat bent while she has severe pain. No loss of bowel or bladder control. Notes she has not been eating or drinking much last few days due to nausea in the amount of pain she is having. Denies any falls, trauma, injuries. Has not had any fevers chills, cough, chest pain, runny nose, sore throat or other concerning signs or symptoms. She does admit she was in a rehab facility. Past Medical History: Diabetes, hypertension, dyslipidemia, hypothyroidism, obesity, spinal disease requiring lumbar surgery. Home Medications: See below for meds of note she is taking baclofen and Vicodin for pain control Allergies:sulfa, tramadol Vitals:Blood Pressure: 120/60, Pulse 80, RR 18, T 36.7C, O2 98% on RA Physical Exam: GENERAL: Patient is very uncomfortable appearing and in moderate distress. RESPIRATORY: No dyspnea. Clear to auscultation and equal bilaterally. CARDIOVASCULAR: Regular rate and rhythm.No murmur appreciated. GASTROINTESTINAL: Abdomen soft, non-tender, no peritonitis. EXTREMITIES: Normal motion all extremities, no cyanosis, no edema. NEUROLOGIC: Alert and oriented. No focal neurologic deficits appreciated SKIN: No rash, no jaundice, no diaphoresis. PSYCH: Appropriate GCS: 15 ED Course: Times/Reassessments: Patient vastly improved with IV Dilaudid agreeable to hospitalization. 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 Hypothyroidism HLD (hyperlipidemia) HTN (hypertension) T2DM (type 2 diabetes mellitus) Surgical History Hx of bilateral cataract extraction History of lumbar spinal fusion 01/21/2023 [facility] L2-L4 decompression/fusion (09/14/21): Grade view 1, Garcia#2, ETT 7.0 at [facility] Nausea and vomiting after administration of anesthetic agent states scopolamine patch worked very well after last procedure Hx of dilation and curettage Hx of arthroscopy of left knee meniscus injury Hx of cholecystectomy Hx of tonsillectomy History of x2 History of total knee replacement Left 2012, Right 2006 Family History Mother Sclerosing cholangitis Father Alcohol use disorder Social History Smoking Status: Unknown if ever smoked Second Hand Exposure: No; Do You Dip or Chew Tobacco: No; Hx Alcohol Use: No Hx Substance Use: No Preferred Language: Surinamese Communication Ability: Effective Facilities Flight Check Pilot Required: No Beliefs That Will Affect Care: None marital status: Current Living Situation: Spouse current occupational status: retired Feels Safe at Home: Yes Assistive Devices: Denture - Upper, Glasses and Walker Allergies Allergies Allergy/AdvReac Type Severity Reaction Status Date / Time Sulfa (Sulfonamide Allergy Mild Rash Verified 02/11/23 11:01 Antibiotics) tramadol AdvReac Mild Auditory Verified 02/11/23 11:01 hallucinations Home Meds Home Medications Medication Instructions Recorded Confirmed cholecalciferol (vitamin D3) 25 25 mcg PO QAM 09/11/21 02/11/23 mcg (1,000 unit) capsule (Vitamin D3) colesevelam 625 mg tablet (WelChol) 0 mg PO BID 09/11/21 02/11/23 hydrochlorothiazide 25 mg tablet 25 mg PO QAM 09/11/21 02/11/23 metformin 1,000 mg tablet 1,000 mg PO BIDWMEAL 09/11/21 02/11/23 pioglitazone 15 mg tablet 15 mg PO QAM 09/11/21 02/11/23 baclofen 10 mg tablet 10 mg PO TID 02/08/23 02/11/23 gabapentin 300 mg capsule 300 mg PO TID 02/08/23 02/11/23 meloxicam 7.5 mg tablet 0 mg PO QAM 02/08/23 02/11/23 pantoprazole 40 mg tablet,delayed 40 mg PO HS 02/08/23 02/11/23 release (Protonix) hydrocodone 10 mg-acetaminophen 1 tab PO Q6H PRN Pain 02/11/23 02/11/23 325 mg tablet levothyroxine 175 mcg tablet 175 mcg PO QAM 02/11/23 02/11/23 Results & Data (ED) Vital Signs Vital Signs - 24 hr 02/11/23 10:28 02/11/23 10:28 02/11/23 12:09 Temperature 36.6 C 36.7 C Temperature Source Oral Oral Pulse Rate 71 Pulse Rate [Finger] Pulse Rhythm [Finger] Respiratory Rate 16 16 Respiratory Effort / Characteristics Non-Labored Respiratory Depth Normal Respiratory Pattern Regular Blood Pressure 140/69 Blood Pressure [Right Arm] Blood Pressure Mean 92 Blood Pressure Mean [Right Arm] Pulse Oximetry 95 85 L Oxygen Delivery Method Room Air Room Air Oxygen Flow Rate Sepsis Recent Fever Within 48 Hours No Sepsis New/Unexplained Change in Mental Status No Sepsis Action Taken by Nursing No Action Required 02/11/23 12:10 Temperature Temperature Source Pulse Rate Pulse Rate [Finger] 71 Pulse Rhythm [Finger] Regular Respiratory Rate 18 Respiratory Effort / Characteristics Non-Labored Spontaneous Respiratory Depth Normal Respiratory Pattern Regular Blood Pressure Blood Pressure [Right Arm] 135/76 Blood Pressure Mean Blood Pressure Mean [Right Arm] 95 Pulse Oximetry 97 Oxygen Delivery Method Nasal Cannula Oxygen Flow Rate 2 Sepsis Recent Fever Within 48 Hours Sepsis New/Unexplained Change in Mental Status Sepsis Action Taken by Nursing Laboratory Data 02/11/23 10:45 02/11/23 10:45 Lab Results 02/11/23 Range/Units 10:45 WBC 6.97 (4.8-10.8) K/ul RBC 4.19 L (4.20-5.40) M/uL Hgb 12.8 (12.0-16.0) g/dl Hct 39.5 (37.0-47.0) % MCV 94.3 (80.0-100.0) fL MCH 30.5 (25.0-34.0) pg MCHC 32.4 (32.0-36.0) g/dL RDW Std Deviation 48.5 H (36.4-46.3) fL RDW Coeff of Carine 14.1 (11.5-14.5) % Plt Count 288 (130-400) K/uL MPV 12.1 (9.4-12.4) fL Immature Gran % (Auto) 0.1 % Neut % (Auto) 46.9 % Lymph % (Auto) 42.3 % [place] % (Auto) 8.0 % Eos % (Auto) 2.0 % Baso % (Auto) 0.7 % Neut # (Auto) 3.26 (1.40-6.50) K/uL Lymph # (Auto) 2.95 (1.20-3.40) K/uL [place] # (Auto) 0.56 (0.11-0.59) K/uL Eos # (Auto) 0.14 (0.00-0.50) K/uL Baso # (Auto) 0.05 (0.00-0.20) K/uL Immature Gran # (Auto) 0.01 (0.01-0.20) K/uL Sodium 139 (136-145) mmol/L Potassium 3.6 (3.5-5.1) mmol/L Chloride 100 (98-107) mmol/L Carbon Dioxide 32 (21-32) mmol/L Anion Gap 7 (3-11) BUN 8 (6-23) mg/dl Creatinine 0.61 (0.6-1.2) mg/dl Est Cr Clr Drug Dosing 107.1 ml/min Est GFR ( Amer) 106.5 ml/min Est GFR (Non-Af Amer) 91.9 ml/min BUN/Creatinine Ratio 13.1 (10-20) Glucose 102 H (70-99(Fasting)) mg/dl Calcium 9.2 (8.6-10.3) mg/dl Magnesium 1.6 L (1.7-2.4) mg/dl SARS-CoV-2 (PCR) NEGATIVE (Negative) Influenza Type A (PCR) Negative (Neg) Influenza Type B (PCR) Negative (Neg) RSV (RT-PCR) Negative (Neg) Administered Medications Sodium Chloride (Nss) 500 mls @ 999 mls/hr IV .Q31M ONE Stop: 02/11/23 13:57 Last Admin: 02/11/23 13:40 Dose: 999 mls/hr Documented By: MOUSTAPHA Discontinued Medications Hydromorphone HCl (Hydromorphone Inj 0.5 Mg/0.5 Ml Syr) 0.5 mg IV NOW STA Stop: 02/11/23 10:29 Last Admin: 02/11/23 10:56 Dose: 0.5 mg Documented By: JY Hydromorphone HCl (Hydromorphone Inj 0.5 Mg/0.5 Ml Syr) 0.5 mg IV NOW STA Stop: 02/11/23 13:19 Last Admin: 02/11/23 13:22 Dose: 0.5 mg Documented By: MOUSTAPHA Ondansetron HCl (Ondansetron Inj 2 Mg/Ml 2 Ml Vial) 4 mg IV NOW STA Stop: 02/11/23 10:29 Last Admin: 02/11/23 10:56 Dose: 4 mg Documented By: MOUSTAPHA Discharge Plan Visit Data Chief Complaint: Back Injury/Pain Stated Complaint: BACK PAIN & SPASMS, REFFERED BY [facility] ED Provider: Jg Reinoso Discharge Problem: Intractable low back pain, 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 Original directions 7.5mg by mouth daily baclofen 10 mg Tablet 10 mg PO TID pantoprazole [Protonix] 40 mg Tablet,Delayed Release (Dr/Ec) 40 mg PO HS gabapentin 300 mg Capsule 300 mg PO TID levothyroxine 175 mcg tablet 175 mcg PO QAM hydrocodone-acetaminophen 10-325 mg tablet 1 tab PO Q6H PRN (Reason: Pain) pioglitazone 15 mg Tablet 15 mg PO QAM colesevelam [WelChol] 625 mg Tablet 0 mg PO BID Rx Instructions: Medication is currently on hold due to pt's upcoming surgery on 02/12/23, will restart after surgery. Original directions 1250mg by mouth twice daily metformin 1,000 mg Tablet 1,000 mg PO BIDWMEAL hydrochlorothiazide 25 mg Tablet 25 mg PO QAM cholecalciferol (vitamin D3) [Vitamin D3] 25 mcg (1,000 unit) Capsule 25 mcg PO QAM Referrals Referrals: Jadyn Johnson DO [Primary Care Provider] -
[2023-02-11 11:21] LABS: Basophils # (auto) 0.05 K/uL (0.00-0.20); Basophils % (auto) 0.7 %; Eosinophils # (auto) 0.14 K/uL (0.00-0.50); Hematocrit (blood only) 39.5 % (37.0-47.0); Hemoglobin 12.8 g/dl (12.0-16.0); Immature Granulocytes # (auto) 0.01 K/uL (0.01-0.20); Immature Granulocytes % (auto) 0.1 %; Lymphocytes # (auto) 2.95 K/uL (1.20-3.40); Lymphocytes % (auto) 42.3 %; Mean Corpuscular Hemoglobin 30.5 pg (25.0-34.0); Mean Corpuscular Hgb Conc 32.4 g/dL (32.0-36.0); Mean Corpuscular Volume 94.3 fL (80.0-100.0); Mean Platelet Volume 12.1 fL (9.4-12.4); Monocytes # (auto) 0.56 K/uL (0.11-0.59); Neutrophils # (auto) 3.26 K/uL (1.40-6.50); Neutrophils % (auto) 46.9 %; Platelet Count 288 K/uL (130-400); RDW Coefficient of Variation 14.1 % (11.5-14.5); RDW Standard Deviation 48.5 fL (36.4-46.3); Red Blood Count 4.19 M/uL (4.20-5.40); White Blood Count 6.97 K/ul (4.8-10.8)
[2023-02-11 11:29] LABS: BUN Creatinine Ratio 13.1 (10-20); Calcium 9.2 mg/dl (8.6-10.3); Creatinine Clr Calc Pharmacy 107.1 ml/min; Est GFR (African American) 106.5 ml/min; Est GFR (Non-African American) 91.9 ml/min; Magnesium 1.6 mg/dl (1.7-2.4); Potassium 3.6 mmol/L (3.5-5.1)
[2023-02-11 12:07] LABS: Influenza A virus by PCR Negative (Neg); Influenza B virus by PCR Negative (Neg); RSV by PCR Negative (Neg); SARS CoV2 RNA(COVID-19) Ceph NEGATIVE (Negative)
[2023-02-11] MEDS ORDERED: HYDROmorphone INJ 0.5 MG/0.5 ML SYR IV PRN (13:18)
[2023-02-11] MEDS ORDERED: SODIUM CHLORIDE 0.9% 500 ML IV ONE (13:27)
--- OUTSIDE RECORDS SUMMARY | 2023-02-11 13:34 | External Medical Summary ---
Author Name Unknown Address Unknown Organization [id number]:[facility] [place] [address] [place] [address] Laboratory Report Ordering Provider Test Date Status MARIYA HEDRICK 02/02/2023 08:09:49 Final Observation Date Value Abnormality Reference (Units ) Status Uric Acid 02/02/2023 08:09:49 5.4 2.4-5.7 (m g/dL) Final Performing Location [facility] - [address] [place] [address]
--- OUTSIDE RECORDS SUMMARY | 2023-02-11 13:34 | External Medical Summary ---
Author Name Unknown Address Unknown Organization K09:[facility] [place] [address] [place] [address] Laboratory Report Ordering Provider Test Date Status MARIYA HEDRICK 02/01/2023 06:50:40 Final Observation Date Value Abnormality Reference (Units ) Status WBC, Total 02/01/2023 06:50:40 6.76 4.00-10.8 0 (K/uL) Final RBC 02/01/2023 06:50:40 3.47 3.85-5.15 (M/uL) Final Hemoglobin 02/01/2023 06:50:40 10.8 Below low normal 12 .0-15.3 (g/dL) Final HCT 02/01/2023 06:50:40 34.1 Below low normal 36. 0-45.2 (%) Final MCV 02/01/2023 06:50:40 98.3 81.5-97.5 (fL) Final MCH 02/01/2023 06:50:40 31.1 27.0-34.0 (pg) Final MCHC 02/01/2023 06:50:40 31.7 32.0-36.0 (g/dL) Final RDW 02/01/2023 06:50:40 14.9 11.5-15.5 (%) Final Platelets 02/01/2023 06:50:40 264 140-400 (K /uL) Final MPV 02/01/2023 06:50:40 12.4 6.6-11.1 ( fL) Final Performing Location [facility] [place] [address]
--- OUTSIDE RECORDS SUMMARY | 2023-02-11 13:34 | External Medical Summary | Summary of Care ---
Author Name Unknown Organization [facility] Address [address] [place] [address] Phone [phone] Care Team Providers Care Cloud Physicist Name Role Phone Jadyn Johnson DO Primary Care Provider [phone]- [phone] Reason for Visit * Reason Comments eRx-Medication Refill Encounter Details Date Type Department Care Team (Late st Contact Info) Description 02/07[facility]2023 [facility] [address] [facility] [place] [address] Jadyn Johnson DO [address] [facility] [place] [address] Allergies Active Allergy Reactions Criticality Noted Date Comments Sulfa Antibiotics Rash Low 08/07/2012 Tramadol 10/06/2021 hullicinations documented as of this encounter (statuses as of 02/08/2023) Medications Medication Sig Dispensed Refills Start Date [...] the morning. 90 Tablet 3 07/06/2022 Active Pioglitazone HCl [...] evening meals. 180 Tablet 3 07/06/2022 Active Colesevelam HCl 625 MG Oral Tablet (Welchol)Indications: Diarrhea, unspecified type Take 2 Tablets by mouth 2 times a day with morning and evening meals. 120 Tablet 5 01/15/2023 Active Levothyroxine Sodium 175 MCG Oral Tablet (Synthroid)Indication s:Acquired hypothyroidism Take 1 Tablet by mouth in the morning. (at least 30 min prior to breakfast or other meds). 90 Tablet 3 01/15/2023 Active documented as of this encounter (statuses as of 02/08/2023) Active Problems Problem Noted Date Diagnosed Date [...] as of this encounter (statuses as of 02/08/2023) Resolved Problems Problem Noted Date Diagnosed Date [...] as of this encounter (statuses as of 02/08/2023) Immunizations Name Administration Dates Next Due COVID-19 [...] encounter Miscellaneous Notes * Telephone Encounter - David Rangel RPh - 02/08/2023 5:55 AM ESTRefused Prescriptions: Disp Refills Meloxicam 7.5 MG Oral Tablet (Mobic) 10 Tab*0 Sig: TAKE 1 TABLET BY MOUTH ONCE DAILYRefused By: DAVID RANGEL LReason for Refusal: Course of treatment complete----- documented in this encounter Plan of Treatment Upcoming Encounters Date Type Department Care Team (Late st Contact Info) Description 02/21/2023 1:40 PM EST [facility] [address] [place] [address] Jadyn Johnson DO [address] [place] [address] 07/26/2023 8:20 AM EDT Office Visit [facility] [address] [place] [address] Jadyn Johnson, [address] [place] [address] Health Maintenance Due Date Last Done Comments Hepatitis C Screening 1970 Cologuard 1997 Sigmoidoscopy 1997 Hepatitis B (1 of 3 - Risk 3-dose series) 2012 Fecal Occult Blood Test 08/20/2014 08/20/2013, 08/07 Depression Screening 04/30/2020 05/01/2019 Albumin/Creatinine Ratio 02/26/2023 023, 02/22/2021, 08/13/2019 B-12 02/26/2023 02/26/2022 Diabetic Eye Exam 03/02/2023 03/02/2022, , 03/02/2022, Additional history exists HbA1c 07/01/2023 12/31/2022, 050 06/2022, 02/26/2022, Additional history exists Diabetic Foot Exam 07/07/2023 07/06/2022, 0 08/26/2020, 08/18/2019 Mammogram 11/28/2023 11/27/2022, 10/26, 07/20/2021, Additional history exists TSH 01/01/2024 12/31/2022, 03/28, 02/26/2022, Additional history exists GFR 02/02/2024 02/01/2023, 1202/2022, 12/31/2022, Additional history exists DXA Scan 09/15/2026 09/16/2019, [...] filedocumented as of this encounter Care Teams Cloud Physicist Relationship Specialty Start Date End Date Jadyn Johnson DO [address] [facility] [place] [id number] PCP - General Family Medicine 02/10/19 documented as of this encounter
--- OUTSIDE RECORDS SUMMARY | 2023-02-11 13:34 | External Medical Summary ---
Author Name Unknown Address Unknown Organization K09:[facility] [address] [place] [address] Laboratory Report Ordering Provider Test Date Status MARIYA HEDRICK 01/25/2023 07:21:47 Final Observation Date Value Abnormality Reference (Units ) Status BUN 01/25/2023 07:21:47 12 6-20 (mg/dL) Final Creatinine 01/25/2023 07:21:47 0.6 0.5-1.0 (mg/dL) Final Glomerular filtration rate/1.73 sq M.predicted [Volume Rate/Area] in Serum, Plasma or Blood by Creatinine-based formula (CKD-EPI) 01/25/2023 07:21:47 >90 >=60 (mL/min) Final eGFR is calculated based on the CKD-EPI 2020 equation SODIUM 01/25/2023 07:21:47 139 135-146 (m mol/L) Final Potassium 01/25/2023 07:21:47 4.4 3.5-5.1 (m mol/L) Final Cl 01/25/2023 07:21:47 104 98-107 (mm ol/L) Final CO2 01/25/2023 07:21:47 25 22-32 (mmo l/L) Final Anion gap 01/25/2023 07:21:47 10 7-15 (mmol /L) Final Glucose 01/25/2023 07:21:47 96 70-120 (mg /dL) Final Calcium 01/25/2023 07:21:47 8.7 8.4-10.2 ( mg/dL) Final Performing Location [facility] [place] [address]
--- OUTSIDE RECORDS SUMMARY | 2023-02-11 13:34 | External Medical Summary | Summary of Care ---
Author Name Unknown Organization [facility] Address [address] [facility] [place] [address] Phone [phone] Care Team Providers Care Ladle Liner Helper Name Role Phone Jadyn Johnson DO Primary Care Provider +1- [phone] Reason for Visit * Reason Onset Date Comments Test Results 01/10/2023 UA Encounter Details Date Type Department Care Team (Late st Contact Info) Description 01/10/2023 Telephone Family Practice [facility] [place] [address] [facility] [place] [address] [facility] [address] [facility] [address] Test Results (UA) Allergies Active Allergy Reactions Criticality Noted Date Comments Sulfa Antibiotics Rash Low 08/07/2012 Tramadol 10/06/2021 hullicinations documented as of this encounter (statuses as of 01/22/2023) Medications Medication Sig Dispensed Refills Start Date [...] as of this encounter (statuses as of 01/22/2023) Active Problems Problem Noted Date Diagnosed Date [...] as of this encounter (statuses as of 01/22/2023) Resolved Problems Problem Noted Date Diagnosed Date [...] as of this encounter (statuses as of 01/22/2023) Immunizations Name Administration Dates Next Due COVID-19 [...] Telephone Encounter - Jazmine Baez LPN - 01/22/2023 3:42 PM EST Patient seen on 01/[address] Johnson. * Telephone Encounter - Richelle Conn LPN - 01/10/2023 4:46 PM EST No labs noted from [facility]. Will await lab results * Telephone Encounter - Carlyn Sanchez OSA - 01/10/2023 10:18 AM EST Patient had preop labs done at [facility] on 01/07. Pt is asking if Dr. Johnson can review her UA. Records requested from [facility]. documented in this encounter Plan of Treatment Upcoming Encounters Date Type Department Care Team (Late st Contact Info) Description 07/26/2023 8:20 AM EDT [facility] Visit [facility] [address] [place] [address] Jadyn Johnson DO [address] [facility] [place] [address] Health Maintenance Due Date Last Done Comments [...] filedocumented as of this encounter Care Teams Ladle Liner Helper Relationship Specialty Start Date End Date Jadyn Johnson DO [address] [facility] [place] [address] PCP - General Family Medicine 02/10/19 documented as of this encounter
--- OUTSIDE RECORDS SUMMARY | 2023-02-11 13:34 | External Medical Summary ---
Author Name Unknown Address Unknown Organization K09:[facility] [address] [place] [address] Laboratory Report Ordering Provider Test Date Status MARIYA HEDRICK 01/25/2023 07:21:47 Final Observation Date Value Abnormality Reference (Units ) Status WBC, Total 01/25/2023 07:21:47 10.57 4.00-10.8 0 (K/uL) Final RBC 01/25/2023 07:21:47 3.22 3.85-5.15 (M/uL) Final Hemoglobin 01/25/2023 07:21:47 10.0 Below low normal 12 .0-15.3 (g/dL) Final HCT 01/25/2023 07:21:47 31.7 Below low normal 36. 0-45.2 (%) Final MCV 01/25/2023 07:21:47 98.4 81.5-97.5 (fL) Final MCH 01/25/2023 07:21:47 31.1 27.0-34.0 (pg) Final MCHC 01/25/2023 07:21:47 31.5 32.0-36.0 (g/dL) Final RDW 01/25/2023 07:21:47 14.9 11.5-15.5 (%) Final Platelets 01/25/2023 07:21:47 154 140-400 (K /uL) Final MPV 01/25/2023 07:21:47 13.5 6.6-11.1 ( fL) Final Performing Location [facility] [place] [address]
--- OUTSIDE RECORDS SUMMARY | 2023-02-11 13:34 | External Medical Summary | Summary of Care ---
Author Name Unknown Organization [facility] Address [address] [facility] [place] [address] Phone [phone] Care Team Providers Care Interlocking Installer Name Role Phone Jadyn Johnson DO Primary Care Provider [phone]- [phone] Reason for Visit * Reason Onset Date Comments Home Health 02/07/2023 Encounter Details Date Type Department Care Team (Late st Contact Info) Description 02/07/[address] [facility] [place] [address] [facility] [place] [address] Jadyn Johnson DO [address] [address] Home Health Allergies Active Allergy Reactions Criticality Noted Date Comments Sulfa Antibiotics Rash Low 08/07/2012 Tramadol 10/06/2021 hullicinations documented as of this encounter (statuses as of 02/07/2023) Medications Medication Sig Dispensed Refills Start Date [...] as of this encounter (statuses as of 02/07/2023) Active Problems Problem Noted Date Diagnosed Date [...] as of this encounter (statuses as of 02/07/2023) Resolved Problems Problem Noted Date Diagnosed Date [...] as of this encounter (statuses as of 02/07/2023) Immunizations Name Administration Dates Next Due COVID-19 [...] money to buy more. Never true 01/03/20 Within the past 12 months, t he [...] encounter Miscellaneous Notes * Telephone Encounter - Wendi Silva LPN - 02/07/2023 2:53 PM EST Admission/Start of Care Admission/Start of Care: Kitty RN, Calling from: [facility] Patient was Admitted to: [facility], for: Back Surgery Rehab Discharge date was 02/05/23 Referral ordered by: Griselda Referral received for: [facility], PT, and OT Planned start of care date:Yes, Date 02/06/23 Start of care completed on: 02/06/23 Report/Concerns of:None Vitals: T 97.2 P 78 RR 18 BP 142/68 SP O2 95 R/A Lung sounds - Clear Weight - 235 lbs Blood sugar - Did not check her BS yesterday / only checks a couple days a week Narrative: Kitty is going to add on Home Health Aide to see patient starting tomorrow This was suppose to be on the orders when she was discharged from [facility] and it was missed Next Home Health Aide visit(s) on 02/08/23 They will call with any updates or additional concerns from the upcoming HH visit. Last Office Visit: 01/15/2023 Has patient been scheduled or seen in the office for a follow up visit: Yes- on 02/12/23 Advised that orders will be signed by Dr. Johnson and to fax to the office for signature. documented in this encounter Plan of Treatment Upcoming Encounters Date Type Department Care Team (Late st Contact Info) Description 02/21/2023 1:40 PM EST Office Visit [facility] [address] [place] [address] Jadyn Johnson DO [address] [place] [address] 07/26/2023 8:20 AM EDT Office Visit [facility] [address] [place] [address] Jadyn Johnson, [address] [place] [address] Health Maintenance Due Date Last Done Comments Hepatitis C Screening 1970 Cologuard 1997 Sigmoidoscopy 1997 Hepatitis B (1 of 3 - Risk 3-dose series) 2012 Fecal Occult Blood Test 08/20/2014 08/20/2013, 08/07 Depression Screening 04/30/2020 05/01/2019 Albumin/Creatinine Ratio 02/26/2023 023, 02/22/2021, 08/13/2019 B-12 02/26/2023 02/26/2022 Diabetic Eye Exam 03/02/2023 03/02/2022, , 03/02/2022, Additional history exists HbA1c 07/01/2023 12/31/2022, 06/2022, 02/26/2022, Additional history exists Diabetic Foot [...] filedocumented as of this encounter Care Teams Interlocking Installer Relationship Specialty Start Date End Date Jadyn Johnson DO [address] [facility] [place] [address] PCP - General Family Medicine 02/10/19 documented as of this encounter
--- OUTSIDE RECORDS SUMMARY | 2023-02-11 13:34 | External Medical Summary ---
Author Name Unknown Address Unknown Organization K09:[facility] [place] [place] [address] Laboratory Report Ordering Provider Test Date Status MARIYA HEDRICK 02/01/2023 06:50:40 Final Observation Date Value Abnormality Reference (Units ) Status BUN 02/01/2023 06:50:40 7 6-20 (mg/dL) Final Creatinine 02/01/2023 06:50:40 0.6 0.5-1.0 (mg/dL) Final Glomerular filtration rate/1.73 sq M.predicted [Volume Rate/Area] in Serum, Plasma or Blood by Creatinine-based formula (CKD-EPI) 02/01/2023 06:50:40 >90 >=60 (mL/min) Final eGFR is calculated based on the CKD-EPI 2020 equation SODIUM 02/01/2023 06:50:40 140 135-146 (m mol/L) Final Potassium 02/01/2023 06:50:40 3.8 3.5-5.1 (m mol/L) Final Cl 02/01/2023 06:50:40 99 98-107 (mm ol/L) Final CO2 02/01/2023 06:50:40 29 22-32 (mmo l/L) Final Anion gap 02/01/2023 06:50:40 12 7-15 (mmol /L) Final Glucose 02/01/2023 06:50:40 112 70-120 (mg /dL) Final Calcium 02/01/2023 06:50:40 9.0 8.4-10.2 ( mg/dL) Final Performing Location [facility] [place] [address]
[2023-02-11] MEDS ORDERED: PROMETHAZINE HCL 12.5 MG in SODIUM CHLORIDE 0.9% 50 ML IV PRN (14:22)
[2023-02-11] MEDS ORDERED: HYDROmorphone INJ 1 MG/ML SYRINGE IV PRN (14:22)
[2023-02-11] MEDS ORDERED: ACETAMINOPHEN 500 MG TAB PO PRN (14:22)
[2023-02-11] MEDS ORDERED: METOCLOPRAMIDE HCL INJ 5 MG/ML 2 ML VIAL IV PRN (14:22)
[2023-02-11] MEDS ORDERED: NALOXONE HCL 0.4 MG/1 ML VIAL/CARP IV PRN (14:22)
[2023-02-11] MEDS ORDERED: PHARMACY GLYCEMIC MGMT CONSULT PRN (14:22)
[2023-02-11] MEDS ORDERED: ONDANSETRON 4 MG OD TAB PO PRN (14:22)
[2023-02-11] MEDS ORDERED: ONDANSETRON INJ 2 MG/ML 2 ML VIAL IV PRN (14:22)
[2023-02-11] MEDS ORDERED: ACETAMINOPHEN 1,000 MG/100 ML VIAL IV PRN (14:22)
--- NOTE | 2023-02-11 14:29 | History & Physical Report ---
Date of Service February 11, 2023 Assessment & Plan (1) Intractable low back pain: (2) 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: Plan: At this time we will admit the patient for pain control make her n.p.o. after midnight and plan for surgery tomorrow. All questions were addressed to the patient and her today at the bedside. Admission and Anticipated Discharge Date Admission Date: February 11, 2023 History of Present Illness Chief Complaint: Severe back and leg pain Primary Care Provider: Jadyn Johnson DO This is a 72-year-old female with a history of status post lumbar decompression and fusion that had done well initially during her postoperative period but has had a steady decline over the past several weeks. Imaging demonstrates evidence of loose pedicle screws at S1. This is obviously contributing to her axial back pain and leg symptoms. Subsequently she is here for admission secondary to pain control she is unable to ambulate any reasonable distance and take care of herself. We are planning for surgery tomorrow. Allergies Allergy/AdvReac Type Severity Reaction Status Date / Time Sulfa (Sulfonamide Allergy Mild Rash Verified 02/11/23 11:01 Antibiotics) tramadol AdvReac Mild Auditory Verified 02/11/23 11:01 hallucinations Home Medications Medication Instructions Recorded Confirmed Type cholecalciferol (vitamin D3) 25 25 mcg PO QAM 09/11/21 02/11/23 History mcg (1,000 unit) capsule (Vitamin D3) colesevelam 625 mg tablet (WelChol) 0 mg PO BID 09/11/21 02/11/23 History hydrochlorothiazide 25 mg tablet 25 mg PO QAM 09/11/21 02/11/23 History metformin 1,000 mg tablet 1,000 mg PO BIDWMEAL 09/11/21 02/11/23 History pioglitazone 15 mg tablet 15 mg PO QAM 09/11/21 02/11/23 History baclofen 10 mg tablet 10 mg PO TID 02/08/23 02/11/23 History gabapentin 300 mg capsule 300 mg PO TID 02/08/23 02/11/23 History meloxicam 7.5 mg tablet 0 mg PO QAM 02/08/23 02/11/23 History pantoprazole 40 mg tablet,delayed 40 mg PO HS 02/08/23 02/11/23 History release (Protonix) hydrocodone 10 mg-acetaminophen 1 tab PO Q6H PRN Pain 02/11/23 02/11/23 History 325 mg tablet levothyroxine 175 mcg tablet 175 mcg PO QAM 02/11/23 02/11/23 History Past Med/Surg History Medical History Gout Muscle spasm severe History of COVID-19 03/2022- mild symptoms Morbid obesity Neuroforaminal stenosis of lumbar spine Lumbar disc herniation with radiculopathy Hypothyroidism HLD (hyperlipidemia) HTN (hypertension) T2DM (type 2 diabetes mellitus) Surgical History Hx of bilateral cataract extraction History of lumbar spinal fusion 01/21/2023 [facility] L2-L4 decompression/fusion (09/14/21): Grade view 1, Garcia#2, ETT 7.0 at [facility] Nausea and vomiting after administration of anesthetic agent states scopolamine patch worked very well after last procedure Hx of dilation and curettage Hx of arthroscopy of left knee meniscus injury Hx of cholecystectomy Hx of tonsillectomy History of x2 History of total knee replacement Left 2012, Right 2006 Family History Mother Sclerosing cholangitis Father Alcohol use disorder Social History Smoking Status: Unknown if ever smoked Second Hand Exposure: No; Do You Dip or Chew Tobacco: No; Hx Alcohol Use: No Hx Substance Use: No Preferred Language: Italian Communication Ability: Effective Hvac Service Manager Required: No Beliefs That Will Affect Care: None marital status: Current Living Situation: Spouse current occupational status: retired Feels Safe at Home: Yes Assistive Devices: Denture - Upper, Glasses and Walker Physical Exam Physical Exam: On exam she is in bed. Her is at the bedside. She has reasonable plantarflexion dorsiflexion quadricep strength bilaterally. Sensory is somewhat diminished to touch to lower extremities. Incision is healing appropriately. Results & Data Results & Data Vital Signs (Past 12 Hours) Vital Signs Temp Pulse Pulse Resp BP BP Pulse Ox 02/11/23 12:10 71 18 135/76 97 02/11/23 12:09 85 L 02/11/23 10:28 36.7 C 16 02/11/23 10:28 36.6 C 71 16 140/69 95 O2 Del Method O2 Flow Rate 02/11/23 12:10 Nasal Cannula 2 02/11/23 12:09 Room Air 02/11/23 10:28 02/11/23 10:28 Room Air Code Status & VTE Plan VTE Prophylaxis Plan VTE Prophylaxis will be ordered: Yes
--- NOTE | 2023-02-11 14:51 | Pharmacy Report ---
Pharmacy Glycemic Short Note 2 - Date of Service February 11, 2023 - Glycemic Short BSG Results (Last 24 hours): 02/11/23 10:45 Glucose 102 H OUTPATIENT ANTIDIABETIC REGIMEN: * metformin 1000mg PO BID w/ meals * pioglitazone 15mg PO daily * A1c = 5.9% 01/22/23 ASSESSMENT: * Well controlled type 2 diabetic admitted for intractable back pain, loose spinal hardware * Patient scheduled for surgery tomorrow with Dr Herr * Will begin Novolog correctional insulin only at this time as pt required very little insulin on prior hospitalization for surgery. * Will withhold basal insulin at this time as patient will be NPO after MN for surgery * If patient receives steroids sowmya-op, she may need low doses of basal and or prandial insulin given historical data PLAN FOR INPATIENT GLYCEMIC CONTROL: * Hold outpatient oral diabetes medications * Basal insulin * none at this time * Bolus insulin * NovoLog per scale ACHS or Q6hrs while NPO * Goal Range: Low 110 mg/dL - High 180 mg/dL * Correction Factor: 20 mg/dL/unit * Nutritional / Prandial insulin: none at this time
[2023-02-11] MEDS: SODIUM CHLORIDE 0.9% 1,000 ML IV SCH (14:57)
[2023-02-11] MEDS ORDERED: GLUCOSE 40% GEL 15 GM TUBE PO PRN (15:00)
[2023-02-11] MEDS ORDERED: CARBOHYDRATES FOR HYPOGLYCEMIA PO PRN (15:00)
[2023-02-11] MEDS ORDERED: GLUCOSE 10 TAB/TUBE PO PRN (15:00)
[2023-02-11] MEDS ORDERED: DEXTROSE 50% 50 ML SYRINGE IV PRN (15:00)
[2023-02-11] MEDS ORDERED: GLUCAGON FOR INJ 1 MG VIAL IM PRN (15:00)
[2023-02-11] MEDS ORDERED: MAGNESIUM SULFATE / D5W 1 GM/100 ML BAG IV ONE (15:30)
--- NOTE | 2023-02-11 15:38 | Hospitalist Consultation ---
Date of Consultation February 11, 2023 Assessment & Plan (1) 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: (2) History of lumbar spinal fusion: Admitted under spine ortho service Recently admitted to [facility] 01/21 - 01/24 for elective L4-S1 decompression, L2-S1 fusion, L2-L4 hardware removal. Patient discharged to [facility] for rehab. Reports worsening low back and BL thigh muscle spasms. Evaluated by Dr. Herr as an outpatient and underwent imaging showing loose pedicle screw at S1. Labs and EKG reviewed. Pre op CXR ordered. Dr. Herr planning for OR tomorrow. Further management as per spine ortho. (3) T2DM (type 2 diabetes mellitus): Hgb A1c 5.9 12/2022 Hold oral agents while hospitalized Glycemic pharmacy consulted by primary service (4) HTN (hypertension): Chronic, stable Continue HCTZ (5) HLD (hyperlipidemia): Chronic, stable Continue statin (6) Hypothyroidism: Chronic, stable Continue levothyroxine DVT PROPHYLAXIS TEDs/SCDs as per spine ortho Patient seen in collaboration with Dr. Erickson. Thank you for this consultation. We will follow the patient with you during their hospital stay. You can reach a member of the [facility] Hospitalist Team 17/09 via the [facility] Hospitalist role in [place] Text. Supervising Physician Co-Signing Physician Notes I have seen and examined the patient and have discussed the case with the provider above. I agree with the assessment and plan as stated. 72 yo F with severe back pain, also reporting right ankle pain. Possible surgery tomorrow with Dr. Herr. She has ongoing lower back and buttock spasms and [place] is not helping this much. She had Dilaudid 0.5mg IV in the ER and became hypoxic requiring oxygen supplementation. She is 98% on 2LPM oxygen via nasal canula. She is not able to move very easily 2/2 pain from muscle spasm. My physical exam is consistent with that above. She is hemodynamically stable and afebrile and mentating clearly. Her is at bedside and assists with the history. Medications were reviewed and agree with plan noted above and will add her scheduled baclofen from home, also. DO Dre History of Present Illness Reason for Consultation: Pre op evaluation Requesting Physician: Dr. Herr Attending Physician: Timothy Herr DO History of Present Illness 72 year old female with PMH DM type II, hypothyroidism, dyslipidemia, HTN, obesity, lumbar spinal stenosis s/p L4-S1 decompression, L2-S1 fusion, L2-L4 hardware removal on 01/21/[address] Herr. Patient was discharged to [facility] for rehab. Patient reports that shortly after arriving to rehab, she developed muscle spasms involving the low back and BL thighs. Symptoms have been progressively getting worse. She reports severe pain with sitting. She also has had associated numbness and tingling to both legs. Denies loss of bowel or bladder function. No fevers or chills. Denies chest pain and shortness of breath. No lightheadedness, dizziness, diaphoresis, or syncopal events. Patient was evaluated by Dr. Herr as an outpatient and underwent XR and CT scan showing evidence of of loose pedicle screw at S1. Allergies Allergy/AdvReac Type Severity Reaction Status Date / Time Sulfa (Sulfonamide Allergy Mild Rash Verified 02/11/23 11:01 Antibiotics) tramadol AdvReac Mild Auditory Verified 02/11/23 11:01 hallucinations Home Medications Medication Instructions Recorded Confirmed Type cholecalciferol (vitamin D3) 25 25 mcg PO QAM 09/11/21 02/11/23 History mcg (1,000 unit) capsule (Vitamin D3) colesevelam 625 mg tablet (WelChol) 1,250 mg PO BID 09/11/21 02/11/23 History hydrochlorothiazide 25 mg tablet 25 mg PO QAM 09/11/21 02/11/23 History metformin 1,000 mg tablet 1,000 mg PO BIDWMEAL 09/11/21 02/11/23 History pioglitazone 15 mg tablet 15 mg PO QAM 09/11/21 02/11/23 History baclofen 10 mg tablet 10 mg PO TID 02/08/23 02/11/23 History gabapentin 300 mg capsule 300 mg PO TID 02/08/23 02/11/23 History meloxicam 7.5 mg tablet 7.5 mg PO QAM 02/08/23 02/11/23 History pantoprazole 40 mg tablet,delayed 40 mg PO HS 02/08/23 02/11/23 History release (Protonix) hydrocodone 10 mg-acetaminophen 1 tab PO Q6H PRN Pain 02/11/23 02/11/23 History 325 mg tablet levothyroxine 175 mcg tablet 175 mcg PO QAM 02/11/23 02/11/23 History Patient History Medical History Gout Muscle spasm severe History of COVID-19 03/2022- mild symptoms Morbid obesity Neuroforaminal stenosis of lumbar spine Lumbar disc herniation with radiculopathy Hypothyroidism HLD (hyperlipidemia) HTN (hypertension) T2DM (type 2 diabetes mellitus) Surgical History (Updated 02/11/23 @ 15:35 by ALEIDA Walton) Hx of bilateral cataract extraction History of lumbar spinal fusion 01/21/2023 [facility] L2-L4 decompression/fusion (09/14/21): Grade view 1, Garcia#2, ETT 7.0 at [facility] Nausea and vomiting after administration of anesthetic agent states scopolamine patch worked very well after last procedure Hx of dilation and curettage Hx of arthroscopy of left knee meniscus injury Hx of cholecystectomy Hx of tonsillectomy History of x2 History of total knee replacement Left 2012, Right 2006 Family History Mother Sclerosing cholangitis Father Alcohol use disorder Social History Smoking Status: Unknown if ever smoked Second Hand Exposure: No; Do You Dip or Chew Tobacco: No; Hx Alcohol Use: No Hx Substance Use: No Preferred Language: Indian Communication Ability: Effective Director Of Billing Required: No Beliefs That Will Affect Care: None marital status: Current Living Situation: Spouse current occupational status: retired Feels Safe at Home: Yes Assistive Devices: Denture - Upper, Glasses and Walker Assistive Devices Comment: walker at home, toilet risers, shoe horn, cane Physical Exam Constitutional: WD/WN, vitals as above + obese; no acute distress Eyes: PERRL, conjunctivae normal, anicteric sclerae ENMT: external ear and nose normal, oropharynx normal Respiratory: normal respiratory effort, lungs clear to auscultation Cardiovascular: Rate/Rhythm: regular rate and regular rhythm Vessels: normal peripheral pulses Extremities: no edema Gastrointestinal (Abdomen): normal bowel sounds, soft, nontender, no hepatosplenomegaly Musculoskeletal: strength strong and equal BLE Skin: no rashes, warm and dry Neurologic: PERRL, EOMI, accommodation nl, no face palsy, no dysarthria Psychiatric: A+Ox3, euthymic affect Results & Data Results & Data Vital Signs (Past 12 Hours) Vital Signs Temp Pulse Pulse Resp BP BP Pulse Ox 02/11/23 12:10 71 18 135/76 97 02/11/23 12:09 85 L 02/11/23 10:28 36.7 C 16 02/11/23 10:28 36.6 C 71 16 140/69 95 O2 Del Method O2 Flow Rate 02/11/23 12:10 Nasal Cannula 2 02/11/23 12:09 Room Air 02/11/23 10:28 02/11/23 10:28 Room Air Laboratory Results Short CBC 02/11/23 Range/Units 10:45 WBC 6.97 (4.8-10.8) K/ul Hgb 12.8 (12.0-16.0) g/dl Hct 39.5 (37.0-47.0) % Plt Count 288 (130-400) K/uL BMP 02/11/23 10:45 Sodium 139 Potassium 3.6 Chloride 100 Carbon Dioxide 32 BUN 8 Creatinine 0.61 Glucose 102 H Calcium 9.2
[2023-02-11] MEDS: HYDROCODONE/ACETAMINOPHEN 7.5/325MG TAB PO PRN (15:47)
[2023-02-11] MEDS ORDERED: MAGNESIUM OXIDE 400 MG TAB PO ONE (16:00)
[2023-02-11] MEDS: GABAPENTIN 300 MG CAP PO SCH ×2 (16:00→20:11)
--- NOTE | 2023-02-11 16:21 | XRay Report ---
XR chest 1V portable HISTORY: Preoperative evaluation. COMPARISON: Chest 01/07/2013. FINDINGS: The cardiac silhouette is mildly enlarged. There are low lung volumes. The lungs are clear. No focal lung consolidations to suggest a pneumonia. No evidence for pulmonary edema. No acute fract ures identified. IMPRESSION: Mild cardiomegaly. Otherwise, no acute process within the chest. ACT 112: Negative or not required by law. Electronically signed by: Lele Pemberton M.D. 02/11/2023 4:19 PM
[2023-02-11] MEDS ORDERED: LORazepam 0.5 MG TAB PO STA (17:00)
[2023-02-11] MEDS: INSULIN ASPART PER UNIT CHARGE SC SCH ×2 (17:23→20:36)
[2023-02-11] MEDS: PANTOprazole 40 MG TAB PO SCH (20:11)
[2023-02-11] MEDS: BACLOFEN 10 MG TAB PO SCH (20:11)
[2023-02-11] MEDS: HYDROmorphone INJ 0.5 MG/0.5 ML SYR IV PRN (20:14)
[2023-02-12] MEDS: HYDROmorphone INJ 0.5 MG/0.5 ML SYR IV PRN ×3 (04:24→17:38)
[2023-02-12] MEDS: SODIUM CHLORIDE 0.9% 1,000 ML IV SCH (04:26)
[2023-02-12] MEDS: LEVOTHYROXINE SODIUM 175 MCG TABLET PO SCH (05:34)
[2023-02-12] MEDS ORDERED: INSULIN ASPART PER UNIT CHARGE SC SCH (06:00)
[2023-02-12 06:56] LABS: Hematocrit (blood only) 35.4 % (37.0-47.0); Hemoglobin 11.7 g/dl (12.0-16.0); Mean Corpuscular Hemoglobin 30.6 pg (25.0-34.0); Mean Corpuscular Hgb Conc 33.1 g/dL (32.0-36.0); Mean Corpuscular Volume 92.7 fL (80.0-100.0); Mean Platelet Volume 12.1 fL (9.4-12.4); Platelet Count 247 K/uL (130-400); RDW Coefficient of Variation 14.2 % (11.5-14.5); RDW Standard Deviation 48.3 fL (36.4-46.3); Red Blood Count 3.82 M/uL (4.20-5.40); White Blood Count 7.52 K/ul (4.8-10.8)
[2023-02-12] MEDS ORDERED: SCOPOLAMINE 1 MG TDSY TD ONE (07:01)
[2023-02-12] MEDS ORDERED: LACTATED RINGER'S 1,000 ML IV SCH (07:15)
[2023-02-12 07:25] LABS: BUN Creatinine Ratio 13.1 (10-20); Calcium 8.6 mg/dl (8.6-10.3); Creatinine Clr Calc Pharmacy 107.1 ml/min; Est GFR (African American) 106.5 ml/min; Est GFR (Non-African American) 91.9 ml/min; Magnesium 1.6 mg/dl (1.7-2.4); Potassium 3.6 mmol/L (3.5-5.1)
[2023-02-12] MEDS ORDERED: SCOPOLAMINE 1 MG TDSY TD SCH (07:30)
--- NOTE | 2023-02-12 07:47 | History & Physical Bridge Note ---
Date of Service February 12, 2023 History & Physical Bridge Note I have examined the patient, reviewed the History & Physical and in the interval since the performance of the History & Physical I have noted the following changes of clinical significance: no changes noted L2-S1 hardware removal, L2-S1 revision decompression and fusion with iliac bolts
[2023-02-12] MEDS ORDERED: FLOSEAL HEMOSTATIC MATRIX 10ML TOP ONE (08:30)
[2023-02-12] MEDS ORDERED: ceFAZolin 330 MG/ML 1 GM VIAL ONE (08:32)
[2023-02-12] MEDS ORDERED: BUPIVACAINE/EPINEPHRINE 0.25% 1:200,000 30 ML VIAL ONE (08:32)
[2023-02-12] MEDS ORDERED: IOPAMIDOL INJ 61% 15 ML VIAL INSTIL ONE (08:52)
[2023-02-12] MEDS ORDERED: PIOGLITAZONE HCL 15 MG TAB PO SCH (09:00)
--- NOTE | 2023-02-12 09:47 | Operative Report ---
Post Operative Report Pre & Post Diagnosis Operation Date: 02/12/23 07:45 Pre-Op Diagnosis: Intractable Low Back Pain, Loosening of Hardware in Spine Post-Op Diagnosis: Intractable Low Back Pain, Loosening of Hardware in Spine I identified the patient and participated in the time-out.: Yes Procedure Operation Date: 02/12/23 07:45 Actual Procedures #1 removal of posterior instrumentation. #2 exploration of fusion. #3 revision fusion L5-S1. #4 placement posterior instrumentation L2-S1 with no screws placed bilaterally and S1 cemented into position as well as bilateral iliac bolts. #5 open bilateral SI joint fusions bilaterally. #6 placement infuse collagen sponge, and master graft in the SI joints and posterior gutters L5-S1. Surgeon Timothy Herr, DO Transmitter Tester Ainsley Mullins Estimated Blood Loss 350 Findings See Below The patient is 5 foot 5 weighing over 112 kg with a BMI in excess of 41. Patient's body mass did contribute to significant technical difficulty required deepest retractors and at least 50% increased operative time. Specimens none Indications This is a 72-year-old female known to me the presents several weeks after surgery with steady decline in status. Updated imaging demonstrated evidence of loosening instrumentation particular the S1 pedicle screws Description of Procedure Patient was met with identified informed consent obtained. Patient was then taken to the operative suite underwent patient placed in a prone position on the Sidney table on top of the Fabricio frame. All bony promises well-padded eyes inspected to ensure no external precipice spinal. This point the lumbar spine was prepped and draped in a sterile fashion. Sharp dissection with assistance of Bovie cards from down to and exposing the instrumentation from L2-S1 bilaterally including the bilateral SI joints and iliac crest. I then removed the end caps and rods bilaterally explored the feet screws bilaterally obvious loosening of S1 screws was noted and they were subsequently removed. The mini screws were well-fixed. I then replaced the S1 screws with 8.5 millimeter screws cemented into position. Then placed to bilateral iliac bolts with the assistance of fluoroscopy. After this complete curetted and drilled out the bilateral SI joints and packed them with infuse collagen sponge and master graft. Appropriate size rods were then contoured and locked into position bilaterally. The transverse processes of L5 and the sacral ala were also burred to subcortical bleeding bone and bone graft placed in this region as well. 15 round MORGAN drain inserted. The incision was then closed with 1 regular fascia 2-0 Vicryl subcutaneously and 4 Monocryl for final skin closure. Steri-Strips sterile dressings placed. Patient waken taken PACU stable condition. Please note Ainsley Mullins was present at the entire procedure on the patient positioning complex portion of the surgery and final skin closure. I attest to the content of the Intraoperative Record and any orders documented therein. Any exceptions are noted below.
[2023-02-12] MEDS ORDERED: ePHEDrine sulfate 50 MG/ML AMP IV PRN (10:27)
[2023-02-12] MEDS ORDERED: ONDANSETRON INJ 2 MG/ML 2 ML VIAL IV PRN ×2 (10:27→11:09)
[2023-02-12] MEDS ORDERED: ATROPINE SULFATE 0.1 MG/ML 10ML SYR IV PRN (10:27)
[2023-02-12] MEDS: fentaNYL citrate PF 100 MCG/2 ML VIAL IV PRN ×2 (10:30→10:35)
[2023-02-12] MEDS: HYDROmorphone INJ 2 MG/ML SYR/VIAL IV PRN ×2 (10:36→10:41)
[2023-02-12] MEDS ORDERED: ACETAMINOPHEN 1,000 MG/100 ML VIAL IV PRN (11:09)
[2023-02-12] MEDS ORDERED: LORazepam 0.5 MG TAB PO PRN (11:09)
[2023-02-12] MEDS ORDERED: bisacodyL 10 MG SUPP PR PRN (11:09)
[2023-02-12] MEDS ORDERED: SOD PHOSPHATE/SOD BIPHOSPHATE ENEMA 132 ML BTL PR PRN (11:09)
[2023-02-12] MEDS ORDERED: ALUMINUM/MAGNESIUM SUSP 30 ML UDC PO PRN (11:09)
[2023-02-12] MEDS ORDERED: NALOXONE HCL 0.4 MG/1 ML VIAL/CARP IV PRN (11:09)
[2023-02-12] MEDS ORDERED: DO NOT ADMINISTER FLU VACCINE PRN (11:09)
[2023-02-12] MEDS ORDERED: PROMETHAZINE HCL 12.5 MG in SODIUM CHLORIDE 0.9% 50 ML IV PRN (11:09)
[2023-02-12] MEDS ORDERED: hydrOXYzine HCl 25 MG TAB PO PRN (11:09)
[2023-02-12] MEDS ORDERED: FAMOTIDINE 20 MG TAB PO PRN (11:09)
[2023-02-12] MEDS ORDERED: DO NOT ADMINISTER PNEUMOCOCCAL VACCINE PRN (11:09)
[2023-02-12] MEDS ORDERED: diphenhydrAMINE Capsule 25 MG CAP PO PRN (11:09)
[2023-02-12] MEDS ORDERED: ACETAMINOPHEN 500 MG TAB PO PRN (11:09)
[2023-02-12] MEDS ORDERED: METOCLOPRAMIDE HCL INJ 5 MG/ML 2 ML VIAL IV PRN (11:09)
[2023-02-12] MEDS ORDERED: LORazepam 0.5 MG in SYRINGE 0.25 ML IV PRN (11:09)
[2023-02-12] MEDS ORDERED: ONDANSETRON 4 MG OD TAB PO PRN (11:09)
[2023-02-12] MEDS ORDERED: MAGNESIUM HYDROXIDE SUSP 30 ML UDC PO PRN (11:09)
--- NOTE | 2023-02-12 11:17 | Fluoroscopy Report ---
FL lumbar spine 2-3V CLINICAL HISTORY: L2-S1 HW REMOVAL L2-S1 REVISION DECOMP/FUSION COMPARISON STUDY: Lumbar spine 01/21/2023 FLUOROSCOPY TIME: 1 minute and 31 seconds FLUOROSCOPY IMAGES: 4 Ka,r: 133.5 mGy FINDINGS: L2-S1 posterior decompression and fusion with pedicle screws and rods. The hardware appears intact. Bilateral sacroiliac bolts are present. Disc spacers are noted. IMPRESSION: Fluoroscopic assistance as above. ACT 112: Negative or not required by law. Electronically signed by: Lele Pemberton M.D. 02/12/2023 11:16 AM
[2023-02-12] MEDS ORDERED: LANTUS PER UNIT CHARGE SC ONE (11:30)
--- NOTE | 2023-02-12 11:43 | Anesthesiology Progress Note ---
Date of Service February 12, 2023 Anesthesia Post Procedure Vital Signs Vital Signs: Temp Pulse Pulse Pulse Resp BP BP 02/12/23 11:35 36.3 C L 73 16 107/68 02/12/23 11:05 36.3 C L 73 16 117/73 02/12/23 10:55 75 16 120/64 02/12/23 10:45 36.4 C L 74 14 128/64 02/12/23 10:35 74 16 137/70 02/12/23 10:25 80 18 134/76 02/12/23 10:15 78 18 123/70 02/12/23 10:06 36.2 C L 82 14 133/66 02/12/23 07:00 36.7 C 76 20 118/46 L 02/12/23 06:51 36.7 C 73 16 119/70 02/11/23 21:46 02/11/23 20:10 36.6 C 67 18 123/68 02/11/23 15:20 36.4 C L 74 18 129/74 02/11/23 12:10 71 18 135/76 02/11/23 12:09 Pulse Ox O2 Del Method O2 Flow Rate 02/12/23 11:35 96 Nasal Cannula 3 02/12/23 11:05 96 Nasal Cannula 3 02/12/23 10:55 94 Nasal Cannula 3 02/12/23 10:45 95 Nasal Cannula 3 02/12/23 10:35 98 Nasal Cannula 3 02/12/23 10:25 94 Oxymask 4 02/12/23 10:15 94 Oxymask 6 02/12/23 10:06 96 Oxymask 6 02/12/23 07:00 94 Nasal Cannula 2 02/12/23 06:51 95 Nasal Cannula 2 02/11/23 21:46 Nasal Cannula 2 02/11/23 20:10 95 Nasal Cannula 2 02/11/23 15:20 Nasal Cannula 2 02/11/23 12:10 97 Nasal Cannula 2 02/11/23 12:09 85 L Room Air Pain Intensity Lower Back: Pain Intensity: 8 Transfer of Care Handoff Completed per policy Notes Mental Status: alert / awake / arousable and participated in evaluation Patient Amnestic to Procedure: Yes Nausea / Vomiting: adequately controlled Pain: adequately controlled Airway Patency, RR, SpO2: stable & adequate BP & HR: stable & adequate Hydration State: stable & adequate Anesthetic Complications: no major complications apparent and Pt Satisfied with anesthetic care
[2023-02-12] MEDS: BACLOFEN 10 MG TAB PO SCH ×3 (12:19→20:12)
[2023-02-12] MEDS: LACTATED RINGER'S 1,000 ML IV SCH ×2 (12:19→18:07)
[2023-02-12] MEDS: GABAPENTIN 300 MG CAP PO SCH ×3 (12:19→20:12)
[2023-02-12] MEDS: hydroCHLOROthiazide 25 MG TAB PO SCH (12:20)
[2023-02-12] MEDS: CHOLECALCIFEROL 1,000 UNITS 25 MCG TAB PO SCH (12:20)
[2023-02-12] MEDS: COLESEVELAM HCL PO SCH ×2 (12:20→20:17)
[2023-02-12] MEDS: CHECK SCOPOLAMINE PATCH PLACEMENT SCH ×2 (12:22→16:04)
[2023-02-12] MEDS: INSULIN ASPART PER UNIT CHARGE SC SCH ×3 (12:42→20:15)
[2023-02-12] MEDS: HYDROCODONE/ACETAMINOPHEN 7.5/325MG TAB PO PRN ×2 (12:42→22:13)
--- NOTE | 2023-02-12 13:34 | Pharmacy Report ---
Pharmacy Glycemic Short Note 2 - Date of Service February 12, 2023 - Glycemic Short BSG Results (Last 24 hours): 02/11/23 02/11/23 02/11/23 16:06 20:06 23:44 Glucose POC Glucose 84 86 94 02/12/23 02/12/23 02/12/23 05:34 06:26 10:08 Glucose 100 H POC Glucose 97 138 H 02/12/23 11:17 Glucose POC Glucose 171 H OUTPATIENT ANTIDIABETIC REGIMEN: * metformin 1000mg PO BID w/ meals * pioglitazone 15mg PO daily * A1c = 5.9% 01/22/23 ASSESSMENT: 02/12/23: * BSGs well-controlled yesterday w/ no insulin * Patient is now POD #0 s/p spinal surgery revision * Received 8 mg IV dexamethasone in OR and ordered 6 mg IV daily x 3 doses starting tomorrow morning * Previously, patient required low dose basal and tightened Novolog parameters while on steroids 02/11/23: * Well controlled type 2 diabetic admitted for intractable back pain, loose spinal hardware * Patient scheduled for surgery tomorrow with Dr Herr * Will begin Novolog correctional insulin only at this time as pt required very little insulin on prior hospitalization for surgery. * Will withhold basal insulin at this time as patient will be NPO after MN for surgery * If patient receives steroids sowmya-op, she may need low doses of basal and or prandial insulin given historical data PLAN FOR INPATIENT GLYCEMIC CONTROL: * Hold outpatient oral diabetes medications * Basal insulin * Lantus 15 units SC x 1 * Reassess in AM w/ IV dexamethasone * Bolus insulin * NovoLog per scale ACHS or Q6hrs while NPO * Goal Range: Low 110 mg/dL - High 140 mg/dL * Correction Factor: 20 mg/dL/unit * Nutritional / Prandial insulin: 7 g of CHO/unit
[2023-02-12] MEDS ORDERED: Nursing to Pharmacy Communication SCH (15:00)
[2023-02-12] MEDS: ceFAZolin 2000MG 2,000 MG/15 ML SYR IV SCH ×2 (16:03→23:15)
--- NOTE | 2023-02-12 17:14 | Hospitalist Progress Note ---
Date of Service February 12, 2023 Assessment & Plan (1) 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: (2) History of lumbar spinal fusion: Plan: Admitted under spine ortho service Recently admitted to [facility] 01/21 - 01/24 for elective L4-S1 decompression, L2-S1 fusion, L2-L4 hardware removal. Patient discharged to [facility] for rehab. Reports worsening low back and BL thigh muscle spasms. Evaluated by Dr. Herr as an outpatient and underwent imaging showing loose pedicle screw at S1. Labs and EKG reviewed. Pre op CXR ordered. S/p revision on 02/12 (3) T2DM (type 2 diabetes mellitus): Plan: Hgb A1c 5.9 12/2022 Hold oral agents while hospitalized Glycemic pharmacy consulted by primary service (4) HTN (hypertension): Plan: Chronic, stable Continue HCTZ (5) HLD (hyperlipidemia): Plan: Chronic, stable Continue statin (6) Hypothyroidism: Plan: Chronic, stable Continue levothyroxine DVT PROPHYLAXIS per primary team Thank you for this consultation. We will follow the patient with you during their hospital stay. You can reach a member of the [facility] Hospitalist Team 17/09 via the [facility] role in [place] [facility]. Admission and Anticipated Discharge Date Admission Date: February 11, 2023 Subjective Pt was seen later in the day. Was sitting up in chair at bedside. Noted that the muscle spasms had decreased. Denied chest pain or SOB. Review of Systems Review of Systems: All systems reviewed & are unremarkable except as noted in Subjective Physical Exam Physical Exam: General: Alert, oriented. Psych: Appropriate mood and affect Neuro: difficulty with movements in the chair HEENT: NC/AT CV: RRR Resp: Breath sounds clear bilaterally, no increased effort of breathing. Abdomen: Soft, nontender Results & Data Results & Data Vital Signs (Past 12 Hours) Vital Signs Temp Pulse Pulse Pulse Resp BP BP 02/12/23 16:36 88 18 113/72 02/12/23 15:52 36.4 C L 77 16 106/63 02/12/23 14:05 36.5 C 74 16 109/61 02/12/23 13:15 79 16 111/66 02/12/23 12:10 36.5 C 75 16 113/71 02/12/23 11:35 36.3 C L 73 16 107/68 02/12/23 11:05 36.3 C L 73 16 117/73 02/12/23 10:55 75 16 120/64 02/12/23 10:45 36.4 C L 74 14 128/64 02/12/23 10:35 74 16 137/70 02/12/23 10:25 80 18 134/76 02/12/23 10:15 78 18 123/70 02/12/23 10:06 36.2 C L 82 14 133/66 02/12/23 07:00 36.7 C 76 20 118/46 L 02/12/23 06:51 36.7 C 73 16 119/70 Pulse Ox O2 Del Method O2 Flow Rate 02/12/23 16:36 93 Room Air 02/12/23 15:52 94 Nasal Cannula 3 02/12/23 14:05 93 Nasal Cannula 2 02/12/23 13:15 95 Nasal Cannula 2 02/12/23 12:10 95 Nasal Cannula 2 02/12/23 11:35 96 Nasal Cannula 3 02/12/23 11:05 96 Nasal Cannula 3 02/12/23 10:55 94 Nasal Cannula 3 02/12/23 10:45 95 Nasal Cannula 3 02/12/23 10:35 98 Nasal Cannula 3 02/12/23 10:25 94 Oxymask 4 02/12/23 10:15 94 Oxymask 6 02/12/23 10:06 96 Oxymask 6 02/12/23 07:00 94 Nasal Cannula 2 02/12/23 06:51 95 Nasal Cannula 2
[2023-02-12] MEDS ORDERED: MAGNESIUM SULFATE / D5W 1 GM/100 ML BAG IV SCH (17:30)
[2023-02-12] MEDS: MAGNESIUM OXIDE 400 MG TAB PO SCH ×2 (18:01→20:11)
[2023-02-12] MEDS: PANTOprazole 40 MG TAB PO SCH (20:12)
[2023-02-12] MEDS: DOCUSATE SODIUM/SENNA 50/8.6MG TAB PO SCH (20:17)
[2023-02-13] MEDS: CHECK SCOPOLAMINE PATCH PLACEMENT SCH ×4 (00:40→23:12)
[2023-02-13] MEDS: LACTATED RINGER'S 1,000 ML IV SCH ×2 (00:40→07:38)
[2023-02-13] MEDS: POLYETHYLENE (MIRALAX) 17 GM PACK PO SCH ×4 (05:35→23:12)
[2023-02-13] MEDS: LEVOTHYROXINE SODIUM 175 MCG TABLET PO SCH (05:35)
[2023-02-13] MEDS: HYDROmorphone INJ 0.5 MG/0.5 ML SYR IV PRN (05:37)
[2023-02-13 07:17] LABS: Basophils # (auto) 0.03 K/uL (0.00-0.20); Basophils % (auto) 0.3 %; Eosinophils # (auto) 0.02 K/uL (0.00-0.50); Eosinophils % (auto) 0.2 %; Hemoglobin 9.8 g/dl (12.0-16.0); Immature Granulocytes # (auto) 0.05 K/uL (0.01-0.20); Immature Granulocytes % (auto) 0.5 %; Lymphocytes # (auto) 2.71 K/uL (1.20-3.40); Lymphocytes % (auto) 25.2 %; Mean Corpuscular Hemoglobin 29.9 pg (25.0-34.0); Mean Corpuscular Hgb Conc 32.7 g/dL (32.0-36.0); Mean Corpuscular Volume 91.5 fL (80.0-100.0); Mean Platelet Volume 12.2 fL (9.4-12.4); Monocytes # (auto) 0.99 K/uL (0.11-0.59); Monocytes % (auto) 9.2 %; Neutrophils # (auto) 6.95 K/uL (1.40-6.50); Neutrophils % (auto) 64.6 %; Platelet Count 203 K/uL (130-400); RDW Coefficient of Variation 13.6 % (11.5-14.5); RDW Standard Deviation 46.1 fL (36.4-46.3); Red Blood Count 3.28 M/uL (4.20-5.40); White Blood Count 10.75 K/ul (4.8-10.8)
[2023-02-13] MEDS: HYDROCODONE/ACETAMINOPHEN 7.5/325MG TAB PO PRN ×3 (07:29→20:38)
[2023-02-13] MEDS: hydroCHLOROthiazide 25 MG TAB PO SCH (07:30)
[2023-02-13] MEDS: COLESEVELAM HCL PO SCH ×2 (07:30→20:32)
[2023-02-13] MEDS: GABAPENTIN 300 MG CAP PO SCH ×3 (07:31→20:38)
[2023-02-13] MEDS: CHOLECALCIFEROL 1,000 UNITS 25 MCG TAB PO SCH (07:31)
[2023-02-13] MEDS: BACLOFEN 10 MG TAB PO SCH ×3 (07:31→20:38)
[2023-02-13] MEDS: dexAMETHasone 6 MG in SYRINGE 0 ML IV SCH (07:32)
[2023-02-13] MEDS: MAGNESIUM OXIDE 400 MG TAB PO SCH ×2 (07:32→20:38)
[2023-02-13 07:54] LABS: Calcium 8.4 mg/dl (8.6-10.3); Creatinine Clr Calc Pharmacy 130.7 ml/min; Est GFR (African American) 113.7 ml/min; Est GFR (Non-African American) 98.1 ml/min; Magnesium 1.6 mg/dl (1.7-2.4); Phosphorus 3.3 mg/dl (2.5-4.9); Potassium 3.5 mmol/L (3.5-5.1)
[2023-02-13] MEDS: LANTUS PER UNIT CHARGE SC SCH (08:19)
[2023-02-13] MEDS: INSULIN ASPART PER UNIT CHARGE SC SCH ×4 (08:19→21:11)
--- NOTE | 2023-02-13 08:42 | Orthopedic Progress Note ---
Date of Service February 13, 2023 Assessment & Plan (1) 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: Plan: Carlyn is postoperative day 1 status post kyphoplasty of S1 and iliac bolts. I will start physical therapy today. She is requesting ice which I will order. Maintain MORGAN drain and dressing. Work on pain control. DVT prophylaxis is in the form teds and SCDs. Anticipate discharge home later on this week. Admission and Anticipated Discharge Date Admission Date: February 11, 2023 Subjective Carlyn is postoperative day 1 status post kyphoplasty of S1 and iliac bolts. She is markedly improved today. Pain is more surgical. MORGAN drain output is 10 cc. Otherwise she has had an uneventful evening. Review of Systems Review of Systems: All systems reviewed & are unremarkable except as noted in HPI & below Physical Exam 2 Physical Exam: She sitting up in bed in no acute distress Alert and oriented x 3 Dressing is clean dry and intact with functioning MORGAN drain Strength is intact bilateral lower extremities Calf soft nontender bilaterally Results & Data Vital Signs (Past 12 Hours) Vital Signs Temp Pulse Resp BP Pulse Ox O2 Del Method O2 Flow Rate 02/13/23 07:00 36.7 C 77 15 103/64 94 Nasal Cannula 2 02/13/23 02:55 36.5 C 77 18 105/63 94 Nasal Cannula 1 02/12/23 23:20 36.9 C 72 16 108/58 L 95 Nasal Cannula 2 02/12/23 21:15 Nasal Cannula 2
--- NOTE | 2023-02-13 11:38 | Pharmacy Report ---
Pharmacy Glycemic Short Note 2 - Date of Service February 13, 2023 - Glycemic Short BSG Results (Last 24 hours): 02/12/23 02/12/23 02/13/23 16:46 20:09 06:46 Glucose 112 H POC Glucose 246 H 144 H 02/13/23 07:39 Glucose POC Glucose 111 H OUTPATIENT ANTIDIABETIC REGIMEN: * metformin 1000mg PO BID w/ meals * pioglitazone 15mg PO daily * A1c = 5.9% 01/22/23 ASSESSMENT: 02/13/23: * Carlyn received 27 units of insulin yesterday (15 basal) * POD #1 s/p spinal surgery revision * Fasting BSG within goal range this AM, dexamethasone 6mg IV ordered x3 days, will reduce basal slightly due to decrease in steroid dosage. * BSGs trended up yesterday, tighten carbohydrate ratio 02/12/23 * BSGs well-controlled yesterday w/ no insulin * Patient is now POD #0 s/p spinal surgery revision * Received 8 mg IV dexamethasone in OR and ordered 6 mg IV daily x 3 doses starting tomorrow morning * Previously, patient required low dose basal and tightened Novolog parameters while on steroids 02/11/23: * Well controlled type 2 diabetic admitted for intractable back pain, loose spinal hardware * Patient scheduled for surgery tomorrow with Dr Herr * Will begin Novolog correctional insulin only at this time as pt required very little insulin on prior hospitalization for surgery. * Will withhold basal insulin at this time as patient will be NPO after MN for surgery * If patient receives steroids sowmya-op, she may need low doses of basal and or prandial insulin given historical data PLAN FOR INPATIENT GLYCEMIC CONTROL: * Hold outpatient oral diabetes medications * Basal insulin * Lantus 10 units SC daily with IV dexamethasone * Bolus insulin * NovoLog per scale ACHS or Q6hrs while NPO * Goal Range: Low 110 mg/dL - High 140 mg/dL * Correction Factor: 20 mg/dL/unit * Nutritional / Prandial insulin: 6 g of CHO/unit
--- NOTE | 2023-02-13 13:29 | Hospitalist Progress Note ---
Date of Service February 13, 2023 Assessment & Plan (1) 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: (2) History of lumbar spinal fusion: Plan: Admitted under spine ortho service Recently admitted to [facility] 01/21 - 01/24 for elective L4-S1 decompression, L2-S1 fusion, L2-L4 hardware removal. Patient discharged to [facility] for rehab. Reports worsening low back and BL thigh muscle spasms. Evaluated by Dr. Herr as an outpatient and underwent imaging showing loose pedicle screw at S1. S/p revision on 02/12/23 POD 1 Recovering well Hb is 9.8 today. Baseline has been in 10s per previous labs Though Hb was 12.8 on 02/11/23 Uncertain if it was hemoconcentrated then Will monitor while inpatient Pain control Remove mahoney today Bowel regimen (3) T2DM (type 2 diabetes mellitus): Plan: Hgb A1c 5.9 12/2022 Hold oral agents while hospitalized Glycemic pharmacy on board Continue ISS (4) HTN (hypertension): Plan: Chronic, stable Continue HCTZ (5) HLD (hyperlipidemia): Plan: Chronic, stable Continue statin (6) Hypomagnesemia: Plan: Mag is 1.6 Patient declined iv repletion Stated she had some reaction to IV mag and was told not to take it. She could not describe the reaction she had She is ok with po Continue po mag. Extra dose given today (7) Hypothyroidism: Plan: Chronic, stable Continue levothyroxine DVT PROPHYLAXIS per primary team I spent a total of 45 minutes coordinating, documenting and providing care for this patient excluding time spent in performance of separately billed services Admission and Anticipated Discharge Date Admission Date: February 11, 2023 Subjective Patient seen and examined Reports Muscle spasm resolved. Point tenderness surgical site pain which she stated is controlled. Denies any nausea, vomiting, abdominal pain. Reports some constipation. Denies any cough, chest pain, shortness of breath Physical Exam Constitutional: + well hydrated; no acute distress Eyes: PERRL, conjunctivae normal, anicteric sclerae ENMT: external ear and nose normal, oropharynx normal Respiratory: normal respiratory effort, lungs clear to auscultation Cardiovascular: Rate/Rhythm: regular rate and regular rhythm S1 S2 Gastrointestinal (Abdomen): normal bowel sounds, soft, nontender, no hepatosplenomegaly Musculoskeletal: No pedal edema Neurologic: PERRL, EOMI, accommodation nl, no face palsy, no dysarthria Psychiatric: A+Ox3, euthymic affect Genitourinary: Mahoney in situ Results & Data Results & Data Vital Signs (Past 12 Hours) Vital Signs Temp Pulse Resp BP Pulse Ox O2 Del Method O2 Flow Rate 02/13/23 12:04 36.6 C 69 16 111/69 94 Room Air 02/13/23 09:29 93 Room Air 02/13/23 08:51 Room Air 02/13/23 07:00 36.7 C 77 15 103/64 94 Nasal Cannula 2 02/13/23 02:55 36.5 C 77 18 105/63 94 Nasal Cannula 1 Laboratory Results Abnormal lab results 02/12/23 02/12/23 02/13/23 Range/Units 16:46 20:09 06:46 RBC 3.28 L (4.20-5.40) M/uL Hgb 9.8 L (12.0-16.0) g/dl Hct 30.0 L (37.0-47.0) % Neut # (Auto) 6.95 H (1.40-6.50) K/uL Loving # (Auto) 0.99 H (0.11-0.59) K/uL Carbon Dioxide 34 H (21-32) mmol/L Anion Gap 2 L (3-11) Creatinine 0.50 L (0.6-1.2) mg/dl Glucose 112 H (70-99(Fasting)) mg/dl POC Glucose 246 H 144 H (70-99) mg/dl Calcium 8.4 L (8.6-10.3) mg/dl Magnesium 1.6 L (1.7-2.4) mg/dl 02/13/23 02/13/23 Range/Units 07:39 11:36 RBC (4.20-5.40) M/uL Hgb (12.0-16.0) g/dl Hct (37.0-47.0) % Neut # (Auto) (1.40-6.50) K/uL Loving # (Auto) (0.11-0.59) K/uL Carbon Dioxide (21-32) mmol/L Anion Gap (3-11) Creatinine (0.6-1.2) mg/dl Glucose (70-99(Fasting)) mg/dl POC Glucose 111 H 179 H (70-99) mg/dl Calcium (8.6-10.3) mg/dl Magnesium (1.7-2.4) mg/dl
[2023-02-13] MEDS ORDERED: MAGNESIUM OXIDE 400 MG TAB PO ONE (14:22)
[2023-02-13] MEDS: DOCUSATE SODIUM/SENNA 50/8.6MG TAB PO SCH (20:37)
[2023-02-13] MEDS: PANTOprazole 40 MG TAB PO SCH (20:38)
--- NOTE | 2023-02-13 21:50 | Electrocardiogram Report ---
Test Reason : Blood Pressure : / mmHG Vent. Rate : 074 BPM Atrial Rate : 074 BPM P-R Int : 174 ms QRS Dur : 082 ms QT Int : 372 ms P-R-T Axes : -03 065 007 degrees QTc Int : 412 ms Normal sinus rhythm Low voltage QRS Nonspecific T wave abnormality Abnormal ECG When compared with ECG of 07-JAN-2023 14:57, Inverted T waves have replaced nonspecific T wave abnormality in Inferior leads Nonspecific T wave abnormality now evident in Lateral leads Confirmed by Tristan Kitchen ([id number]) on 02/13/2023 9:50:27 PM Referred By: Timothy Herr Confirmed By:Tristan Kitchen
[2023-02-14] MEDS: HYDROCODONE/ACETAMINOPHEN 7.5/325MG TAB PO PRN ×4 (04:20→22:16)
[2023-02-14] MEDS: LEVOTHYROXINE SODIUM 175 MCG TABLET PO SCH (05:13)
[2023-02-14] MEDS: POLYETHYLENE (MIRALAX) 17 GM PACK PO SCH ×2 (05:13→12:37)
[2023-02-14 07:11] LABS: Hematocrit (blood only) 28.2 % (37.0-47.0); Hemoglobin 9.5 g/dl (12.0-16.0); Mean Corpuscular Hemoglobin 30.6 pg (25.0-34.0); Mean Corpuscular Hgb Conc 33.7 g/dL (32.0-36.0); Mean Platelet Volume 12.6 fL (9.4-12.4); Platelet Count 170 K/uL (130-400); RDW Standard Deviation 46.5 fL (36.4-46.3); White Blood Count 10.48 K/ul (4.8-10.8)
[2023-02-14 07:36] LABS: BUN Creatinine Ratio 16.7 (10-20); Calcium 8.2 mg/dl (8.6-10.3); Creatinine Clr Calc Pharmacy 136.1 ml/min; Est GFR (African American) 115.2 ml/min; Est GFR (Non-African American) 99.4 ml/min; Magnesium 1.7 mg/dl (1.7-2.4); Phosphorus 2.5 mg/dl (2.5-4.9); Potassium 3.3 mmol/L (3.5-5.1)
[2023-02-14] MEDS ORDERED: POTASSIUM CHLORIDE CRTAB 20 MEQ TABCR PO STA (07:46)
[2023-02-14] MEDS: BACLOFEN 10 MG TAB PO SCH ×3 (08:12→20:45)
[2023-02-14] MEDS: MAGNESIUM OXIDE 400 MG TAB PO SCH ×2 (08:12→20:45)
[2023-02-14] MEDS: GABAPENTIN 300 MG CAP PO SCH ×3 (08:13→20:45)
[2023-02-14] MEDS: CHOLECALCIFEROL 1,000 UNITS 25 MCG TAB PO SCH (08:14)
[2023-02-14] MEDS: dexAMETHasone 6 MG in SYRINGE 0 ML IV SCH (08:14)
[2023-02-14] MEDS: CHECK SCOPOLAMINE PATCH PLACEMENT SCH ×3 (08:14→23:08)
[2023-02-14] MEDS: hydroCHLOROthiazide 25 MG TAB PO SCH (08:14)
[2023-02-14] MEDS: COLESEVELAM HCL PO SCH ×2 (08:15→20:46)
[2023-02-14] MEDS: INSULIN ASPART PER UNIT CHARGE SC SCH ×4 (08:33→20:46)
[2023-02-14] MEDS: LANTUS PER UNIT CHARGE SC SCH (08:33)
--- NOTE | 2023-02-14 08:39 | Orthopedic Progress Note ---
Date of Service February 14, 2023 Assessment & Plan (1) 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: Plan: At this time we will continue physical therapy monitor her MORGAN output. Anticipate discharge home Saturday with home health. Admission and Anticipated Discharge Date Admission Date: February 11, 2023 Subjective Pain markedly improved. Denies any leg pain. Tolerating therapy. Physical Exam Physical Exam: Patient is in the chair at the bedside. Is comfortably discussing the testing. Results & Data Vital Signs (Past 12 Hours) Vital Signs Temp Pulse Resp BP Pulse Ox O2 Del Method 02/14/23 08:00 36.7 C 74 16 115/57 L 93 Room Air 02/13/23 21:43 Room Air Queries Orthopedic Spine Obesity: Yes Vertebral Fracture Secondary to Osteoporosis: Yes
--- NOTE | 2023-02-14 13:53 | Hospitalist Progress Note ---
Date of Service February 14, 2023 Assessment & Plan (1) 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: (2) History of lumbar spinal fusion: Plan: Admitted under spine ortho service Recently admitted to [facility] 01/21 - 01/24 for elective L4-S1 decompression, L2-S1 fusion, L2-L4 hardware removal. Patient discharged to [facility] for rehab. Reports worsening low back and BL thigh muscle spasms. Evaluated by Dr. Herr as an outpatient and underwent imaging showing loose pedicle screw at S1. S/p revision on 02/12/23 POD 2 Patient is doing well Hb is 9.5 today. Baseline has been in 10s per previous labs Though Hb was 12.8 on 02/11/23 Uncertain if it was hemoconcentrated then Pain control (3) T2DM (type 2 diabetes mellitus): Plan: Hgb A1c 5.9 12/2022 Hold oral agents while hospitalized Glycemic pharmacy on board Continue ISS (4) HTN (hypertension): Plan: Chronic, stable Continue HCTZ (5) HLD (hyperlipidemia): Plan: Chronic, stable Continue statin (6) Hypomagnesemia: Plan: Mag improved today 1.7 Mild hypokalemia today. Repleted Continue po mag. (7) Hypothyroidism: Plan: Chronic, stable Continue levothyroxine DVT PROPHYLAXIS per primary team I spent a total of 40 minutes coordinating, documenting and providing care for this patient excluding time spent in performance of separately billed services Admission and Anticipated Discharge Date Admission Date: February 11, 2023 Subjective Patient seen and examined Reports feeling better Reports surgical site pain is well controlled Denies any nausea, vomiting, abdominal pain. Reports constipation is resolved Denies any cough, chest pain, shortness of breath Physical Exam Constitutional: + well hydrated; no acute distress Eyes: PERRL, conjunctivae normal, anicteric sclerae ENMT: external ear and nose normal, oropharynx normal Respiratory: normal respiratory effort, lungs clear to auscultation Cardiovascular: Rate/Rhythm: regular rate and regular rhythm S1 S2 Gastrointestinal (Abdomen): normal bowel sounds, soft, nontender, no hepatosplenomegaly Musculoskeletal: No pedal edema Neurologic: PERRL, EOMI, accommodation nl, no face palsy, no dysarthria Psychiatric: A+Ox3, euthymic affect Results & Data Results & Data Vital Signs (Past 12 Hours) Vital Signs Temp Pulse Resp BP Pulse Ox O2 Del Method 02/14/23 08:00 36.7 C 74 16 115/57 L 93 Room Air Laboratory Results Abnormal lab results 02/12/23 02/13/23 02/13/23 Range/Units 06:24 16:42 20:39 RBC (4.20-5.40) M/uL Hgb (12.0-16.0) g/dl Hct (37.0-47.0) % RDW Std Deviation (36.4-46.3) fL MPV (9.4-12.4) fL Potassium (3.5-5.1) mmol/L Carbon Dioxide (21-32) mmol/L Creatinine (0.6-1.2) mg/dl POC Glucose 213 H 118 H (70-99) mg/dl Calcium (8.6-10.3) mg/dl Crossmatch See Detail 02/14/23 02/14/23 Range/Units 06:32 11:38 RBC 3.10 L (4.20-5.40) M/uL Hgb 9.5 L (12.0-16.0) g/dl Hct 28.2 L (37.0-47.0) % RDW Std Deviation 46.5 H (36.4-46.3) fL MPV 12.6 H (9.4-12.4) fL Potassium 3.3 L (3.5-5.1) mmol/L Carbon Dioxide 33 H (21-32) mmol/L Creatinine 0.48 L (0.6-1.2) mg/dl POC Glucose 119 H (70-99) mg/dl Calcium 8.2 L (8.6-10.3) mg/dl Crossmatch
[2023-02-14] MEDS: DOCUSATE SODIUM/SENNA 50/8.6MG TAB PO SCH (20:44)
[2023-02-14] MEDS: PANTOprazole 40 MG TAB PO SCH (20:46)
[2023-02-15] MEDS: LEVOTHYROXINE SODIUM 175 MCG TABLET PO SCH (05:29)
[2023-02-15] MEDS: INSULIN ASPART PER UNIT CHARGE SC SCH ×4 (08:38→20:37)
[2023-02-15] MEDS: HYDROCODONE/ACETAMINOPHEN 7.5/325MG TAB PO PRN ×3 (08:39→17:29)
[2023-02-15] MEDS: GABAPENTIN 300 MG CAP PO SCH ×3 (08:40→20:38)
[2023-02-15] MEDS: BACLOFEN 10 MG TAB PO SCH ×3 (08:40→20:39)
[2023-02-15] MEDS: dexAMETHasone 6 MG in SYRINGE 0 ML IV SCH (08:40)
[2023-02-15] MEDS: MAGNESIUM OXIDE 400 MG TAB PO SCH ×2 (08:40→20:38)
[2023-02-15] MEDS: hydroCHLOROthiazide 25 MG TAB PO SCH (08:41)
[2023-02-15] MEDS: CHOLECALCIFEROL 1,000 UNITS 25 MCG TAB PO SCH (08:41)
[2023-02-15] MEDS: COLESEVELAM HCL PO SCH ×2 (08:41→20:37)
[2023-02-15] MEDS ORDERED: LANTUS PER UNIT CHARGE SC SCH (09:00)
--- NOTE | 2023-02-15 09:02 | Orthopedic Progress Note ---
Date of Service February 15, 2023 Assessment & Plan (1) 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: Plan: At this time we will continue physical therapy. Will discontinue her drain today. She may shower today. Will plan for discharge tomorrow. Admission and Anticipated Discharge Date Admission Date: February 11, 2023 Subjective Patient's back pain is controlled tolerating physical therapy leg pain improved Physical Exam Physical Exam: Patient is in her chair at the bedside. She is comfortable. Is consented testing. Results & Data Vital Signs (Past 12 Hours) Vital Signs Temp Pulse Resp BP Pulse Ox O2 Del Method 02/15/23 07:20 36.7 C 68 18 119/70 95 Room Air Queries Orthopedic Spine Obesity: Yes Vertebral Fracture Secondary to Osteoporosis: Yes
[2023-02-15 09:16] LABS: Calcium 8.7 mg/dl (8.6-10.3); Creatinine Clr Calc Pharmacy 114.7 ml/min; Est GFR (African American) 108.9 ml/min; Est GFR (Non-African American) 93.9 ml/min; Magnesium 1.9 mg/dl (1.7-2.4); Phosphorus 2.9 mg/dl (2.5-4.9); Potassium 3.7 mmol/L (3.5-5.1)
--- NOTE | 2023-02-15 12:48 | Hospitalist Progress Note ---
Date of Service February 15, 2023 Assessment & Plan (1) 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: (2) History of lumbar spinal fusion: Plan: Admitted under spine ortho service Recently admitted to [facility] 01/21 - 01/24 for elective L4-S1 decompression, L2-S1 fusion, L2-L4 hardware removal. Patient discharged to [facility] for rehab. Reports worsening low back and BL thigh muscle spasms. Evaluated by Dr. Herr as an outpatient and underwent imaging showing loose pedicle screw at S1. S/p revision on 02/12/23 POD 3 Patient is doing well Hb was 9.5 yesterday. Baseline has been in 10s per previous labs Though Hb was 12.8 on 02/11/23 Uncertain if it was hemoconcentrated then Pain controlled (3) T2DM (type 2 diabetes mellitus): Plan: Hgb A1c 5.9 12/2022 Hold oral agents while hospitalized Glycemic pharmacy on board Continue ISS (4) HTN (hypertension): Plan: Chronic, stable Continue HCTZ (5) HLD (hyperlipidemia): Plan: Chronic, stable Continue statin (6) Hypomagnesemia: Plan: Mag improved today 1.9 Continue po mag. (7) Hypothyroidism: Plan: Chronic, stable Continue levothyroxine DVT PROPHYLAXIS per primary team I spent a total of 35 minutes coordinating, documenting and providing care for this patient excluding time spent in performance of separately billed services Admission and Anticipated Discharge Date Admission Date: February 11, 2023 Subjective Patient seen and examined Reports feeling better Surgical site pain is well controlled Physical Exam Constitutional: + well hydrated; no acute distress Eyes: PERRL, conjunctivae normal, anicteric sclerae ENMT: external ear and nose normal, oropharynx normal Respiratory: normal respiratory effort, lungs clear to auscultation Cardiovascular: Rate/Rhythm: regular rate and regular rhythm S1 S2 Gastrointestinal (Abdomen): normal bowel sounds, soft, nontender, no hepatosplenomegaly Musculoskeletal: Clean dressing over surgical site with drain in situ Neurologic: PERRL, EOMI, accommodation nl, no face palsy, no dysarthria Psychiatric: A+Ox3, euthymic affect Results & Data Results & Data Vital Signs (Past 12 Hours) Vital Signs Temp Pulse Resp BP Pulse Ox O2 Del Method 02/15/23 07:20 36.7 C 68 18 119/70 95 Room Air Laboratory Results Abnormal lab results 02/14/23 02/14/2302/15/23 Range/Units 16:33 20:38 07:35 Creatinine (0.6-1.2) mg/dl Glucose (70-99(Fasting)) mg/dl POC Glucose 177 H 165 H 112 H (70-99) mg/dl 02/15/23 Range/Units 07:43 Creatinine 0.57 L (0.6-1.2) mg/dl Glucose 109 H (70-99(Fasting)) mg/dl POC Glucose (70-99) mg/dl
--- NOTE | 2023-02-15 15:32 | Pharmacy Report ---
Pharmacy Glycemic Short Note 2 - Date of Service February 15, 2023 - Glycemic Short BSG Results (Last 24 hours): 02/14/23 02/14/23 02/15/23 16:33 20:38 07:35 Glucose POC Glucose 177 H 165 H 112 H 02/15/23 02/15/23 07:43 11:30 Glucose 109 H POC Glucose 90 OUTPATIENT ANTIDIABETIC REGIMEN: * metformin 1000mg PO BID w/ meals * pioglitazone 15mg PO daily * A1c = 5.9% 01/22/23 ASSESSMENT: 02/15/23: * Carlyn received 36 units of insulin yesterday (10 basal) * Fasting BSG within goal range today after 20% decrease on basal insulin, will continue but allow for lower doseage due to discontinuation of steroids. * Mealtime BSGs acceptable yesterday. Will loosen slightly due to drops below goal range 02/13/23: * Carlyn received 27 units of insulin yesterday (15 basal) * POD #1 s/p spinal surgery revision * Fasting BSG within goal range this AM, dexamethasone 6mg IV ordered x3 days, will reduce basal slightly due to decrease in steroid dosage. * BSGs trended up yesterday, tighten carbohydrate ratio 02/12/23 * BSGs well-controlled yesterday w/ no insulin * Patient is now POD #0 s/p spinal surgery revision * Received 8 mg IV dexamethasone in OR and ordered 6 mg IV daily x 3 doses starting tomorrow morning * Previously, patient required low dose basal and tightened Novolog parameters while on steroids 02/11/23: * Well controlled type 2 diabetic admitted for intractable back pain, loose s katie hardware * Patient scheduled for surgery tomorrow with Dr Herr * Will begin Novolog correctional insulin only at this time as pt required very little insulin on prior hospitalization for surgery. * Will withhold basal insulin at this time as patient will be NPO after MN for surgery * If patient receives steroids sowmya-op, she may need low doses of basal and or prandial insulin given historical data PLAN FOR INPATIENT GLYCEMIC CONTROL: * Hold outpatient oral diabetes medications * Basal insulin * Lantus 0-8 units SQ daily (see eMAR for additional details) * Bolus insulin * NovoLog per scale ACHS or Q6hrs while NPO * Goal Range: Low 110 mg/dL - High 140 mg/dL * Correction Factor: 25 mg/dL/unit * Nutritional / Prandial insulin: 6 g of CHO/unit
[2023-02-15] MEDS: DOCUSATE SODIUM/SENNA 50/8.6MG TAB PO SCH (20:38)
[2023-02-15] MEDS: PANTOprazole 40 MG TAB PO SCH (20:39)
[2023-02-16] MEDS ORDERED: KETOROLAC TROMETHAMINE 15 MG/ML VIAL IV ONE (02:54)
[2023-02-16] MEDS: HYDROCODONE/ACETAMINOPHEN 7.5/325MG TAB PO PRN ×2 (05:32→11:18)
[2023-02-16] MEDS: LEVOTHYROXINE SODIUM 175 MCG TABLET PO SCH (05:32)
[2023-02-16] MEDS: CHOLECALCIFEROL 1,000 UNITS 25 MCG TAB PO SCH (08:12)
[2023-02-16] MEDS: BACLOFEN 10 MG TAB PO SCH (08:12)
[2023-02-16] MEDS: hydroCHLOROthiazide 25 MG TAB PO SCH (08:13)
[2023-02-16] MEDS: GABAPENTIN 300 MG CAP PO SCH (08:13)
[2023-02-16] MEDS: MAGNESIUM OXIDE 400 MG TAB PO SCH (08:13)
[2023-02-16] MEDS: COLESEVELAM HCL PO SCH (08:14)
[2023-02-16] MEDS: INSULIN ASPART PER UNIT CHARGE SC SCH (08:35)
[2023-02-16] MEDS ORDERED: LANTUS PER UNIT CHARGE SC SCH (09:00)
--- NOTE | 2023-02-16 10:23 | Discharge Summary ---
Date of Service February 16, 2023 Admission HPI Per Admitting Provider This is a 72-year-old female with a history of status post lumbar decompression and fusion that had done well initially during her postoperative period but has had a steady decline over the past several weeks. Imaging demonstrates evidence of loose pedicle screws at S1. This is obviously contributing to her axial back pain and leg symptoms. Subsequently she is here for admission secondary to pain control she is unable to ambulate any reasonable distance and take care of herself. We are planning for surgery tomorrow. Principal Diagnosis Failed hardware lumbar spine Discharge Data Allergies Allergy/AdvReac Type Severity Reaction Status Date / Time Sulfa (Sulfonamide Allergy Mild Rash Verified 02/11/23 11:01 Antibiotics) tramadol AdvReac Mild Auditory Verified 02/11/23 11:01 hallucinations Consultations 02/11/23 10:52 ED Decision to Admit Stat 02/11/23 14:22 Consult Internal Medicine Routine Procedures Performed Operation Date: 02/12/23 07:45 Actual Procedures p L2-S1 Revision Fusion with Iliac Bolts(Not Applicable) - Timothy Herr DO s S1 Hardware Removal(Not Applicable) - Timothy Herr DO Ordered Studies 02/12/23 07:45 [place] lumbar spine 2-3V Routine Hospital Course (1) 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: Patient underwent revision lumbar fusion. She tolerated this well was taken to the orthopedic floor postoperatively postoperatively she progressed appropriate ly. Leg pain improved. Back pain improved. MORGAN drain decreasing appropriately. Simply discharged home. Discharge orders instructions found in chart for further review. Total Time Total Time Spent Total Time Spent (In Minutes): 20 minutes Discharge Plan Discharge Items Patient Disposition: Home - Home Health Services Reason For Visit: POSTOP Discharge Diagnosis: Postop back pain Activity: As commented below Non-emergency contact: Primary Care Provider Call non-emergency contact if: you have any medication questions Follow-up/Referrals: Jadyn Johnson DO [Primary Care Provider] - Diet: Regular Addtl Attending Provider Instructions: ACTIVITY RECOMMENDATIONS: SELF CARE INSTRUCTIONS AFTER THORACIC/LUMBAR FUSIONS 1. You may walk to your tolerance. It is good exercise for your legs and back. Expect some back and intermittent leg aches and pains. 2. You may perform "counter-top" level activities (make a sandwich, praful with a project, etc.). 3. No bending or lifting of more than 10 pounds or back twisting of any nature (roll like a log when turning in bed). 4. You may ride in a car for 20-30 minutes at a time. No driving until after your first visit with your doctor. 5. Frequent changes of position and restricting sitting to 30 minutes at a time will help limit the amount of back spasms and stiffness you may experience. 6. You may discontinue the use of ambulatory aids (cane, crutches, etc.) once your strength and confidence allow. 7. You may paint factory worker the shower and let water strike your incision when you arrive home at least once daily. Do not take a tub bath, sit in a hot tub or go into a swimming pool until after your first recheck in the office. SPECIAL CARE INSTRUCTIONS: VERY IMPORTANT TO READ AND REVIEW A. Your surgical incision has been closed with a cosmetic suture under the skin that will dissolve in about 6 weeks. In 14 days, you can use a pair of clean scissors and cut the suture that is left outside of the skin at the ends of your incision. 1. The small skin tapes can be removed 7 days after surgery if they have not fallen off by that point. 2. You may keep the wound open to air as much as possible to promote healing after post-op day number 5 unless told otherwise by your doctor. 3. If you think the wound looks like it is becoming infected (redness or worsening drainage) and/or you are experiencing fever, chill or worsening back pain and muscle spasms, contact the office so that we may evaluate you as soon as possible. B. Complications are uncommon, but please contact us if you have any signs or symptoms of: 1. wound infection (fever higher than 102.5 degrees F, redness, separation of wound, drainage, or increasing pain from the incision) 2. blood clots in legs (pain, swelling, redness and warmth in legs) 3. urinary tract infection (fever higher than 102.5 degrees F, burning upon urination or increased frequency of urination) 4. nerve problems (inability to walk on your toes or heels, numbness, loss of bowel or bladder control) 5. any other symptoms that concern you C. Please call the office at if you have any concerns or questions about your operation or recovery. D. No smoking! Smoking drastically decreases the chance of a solid fusion. E. Do not take any anti-inflammatory medications (Indocin, Advil, Motrin, Aspirin, Naprosyn, etc.) as these may inhibit the chance of a solid fusion. Tylenol is okay to take for pain. MANAGING PAIN AFTER SPINAL SURGERY 1. Narcotic medication is intended for short-term use and will be provided for surgical pain. Surgical pain usually lasts for a period of 4-6 weeks. Narcotic medication includes Percocet, Vicodin, Darvocet, Tylenol #3 or Lortab. 2. Longer-term pain is more appropriately treated with non-narcotic medication such as Tylenol ES. 3. Muscle spasm is not appropriately treated with narcotics. Muscle relaxers such as Soma, Flexeril or Skelaxin can be used along with Tylenol ES. 4. Remember that we all live with some "aches and pains". This is not unusual or uncommon after an injury or as we get older. a. Back pain is expected and may include muscle spasms for 4 to 6 weeks after surgery. The pain should gradually improve. If the pain worsens for no apparent reason, please contact the office. b. Intermittent leg pain may also be experienced and should not be concerned about unless it worsens for no apparent reason. If so, please contact the office. 5. We will provide appropriate medication within the normal guidelines of their prescribed use. We will also be very cautious and aware of potential abuse and extended duration of patients' medication needs. a. Pain medications are for your comfort and to assist with sleep and rest so that the tissue can heal. They are not provided in order to return to normal activity and should not be used through the day. To do so or worsening pain at night can result from ongoing tissue damage and development of tolerance to the prescribed medicine. 6. Please allow 2-3 days to process refills. Prescriptions will not be mailed but must be picked up at the office. FOLLOW UP VISIT: Keep your scheduled follow-up appointment. Any questions, please call the office at . Pending Studies at Discharge: No Stand-Alone Forms: My [employer], Smoking Cessation Medications and DC Order Prescriptions: New hydrocodone-acetaminophen 5-325 mg tablet 1 tab PO Q6H PRN (Reason: pain) Qty: 30 0RF meloxicam 15 mg tablet 15 mg PO DAILY Qty: 60 0RF Continued baclofen 10 mg Tablet 10 mg PO TID pantoprazole [Protonix] 40 mg Tablet,Delayed Release (Dr/Ec) 40 mg PO HS gabapentin 300 mg Capsule 300 mg PO TID levothyroxine 175 mcg tablet 175 mcg PO QAM hydrocodone-acetaminophen 10-325 mg tablet 1 tab PO Q6H PRN (Reason: Pain) pioglitazone 15 mg Tablet 15 mg PO QAM colesevelam [WelChol] 625 mg Tablet 1,250 mg PO BID Rx Instructions: Medication is currently on hold due to pt's upcoming surgery on 02/12/23, will restart after surgery. Original directions 1250mg by mouth twice daily metformin 1,000 mg Tablet 1,000 mg PO BIDWMEAL hydrochlorothiazide 25 mg Tablet 25 mg PO QAM cholecalciferol (vitamin D3) [Vitamin D3] 25 mcg (1,000 unit) Capsule 25 mcg PO QAM Discontinued meloxicam 7.5 mg Tablet 7.5 mg PO QAM Rx Instructions: Medication is currently on hold due to pt's upcoming surgery on 02/12/23, will restart after surgery if needed. Original directions 7.5mg by mouth daily Discharge Orders: Discharge Order (Routine); Ordered 02/16/23 Ordered By: Timothy Herr Admission Data Admit Date/Time: 02/11/23 12:02 Attending Provider: Timothy Herr Admit Provider: Timothy Herr Primary Care Provider: Jadyn Johnson Other Providers: Timothy Herr; Gladys Erickson; Gina Talavera I.; [facility]; [facility]
== END 2023-02-16 12:40 | disposition home health service (06) | DRG 460 ==
LOC: ED 10:16 → 3N 12:02 → SUATTDRO 12:02 → 3N 13:33

== ENCOUNTER 2023-09-24 16:24 | Inpatient (IN) ==
[2023-09-24] MEDS ORDERED: diphenhydrAMINE Capsule 25 MG CAP PO PRN (16:39)
[2023-09-24] MEDS ORDERED: ACETAMINOPHEN 1,000 MG/100 ML VIAL IV PRN (16:39)
[2023-09-24] MEDS ORDERED: LORazepam 0.5 MG in SYRINGE 0.25 ML IV PRN (16:39)
[2023-09-24] MEDS ORDERED: METOCLOPRAMIDE HCL INJ 5 MG/ML 2 ML VIAL IV PRN (16:39)
[2023-09-24] MEDS ORDERED: traMADol HCL 50 MG TABLET PO PRN (16:39)
[2023-09-24] MEDS ORDERED: PROMETHAZINE HCL 12.5 MG in SODIUM CHLORIDE 0.9% 50 ML IV PRN (16:39)
[2023-09-24] MEDS ORDERED: ACETAMINOPHEN 500 MG TAB PO PRN (16:39)
[2023-09-24] MEDS ORDERED: NALOXONE HCL 0.4 MG/1 ML VIAL/CARP IV PRN (16:39)
[2023-09-24] MEDS ORDERED: PHARMACY GLYCEMIC MGMT CONSULT PRN (16:45)
[2023-09-24] MEDS: HYDROmorphone INJ 0.5 MG/0.5 ML SYR IV PRN (17:22)
[2023-09-24] MEDS: ONDANSETRON INJ 2 MG/ML 2 ML VIAL IV PRN (17:25)
[2023-09-24] MEDS: LACTATED RINGER'S 1,000 ML IV SCH (18:06)
[2023-09-24] MEDS ORDERED: CARBOHYDRATES FOR HYPOGLYCEMIA PO PRN (18:45)
[2023-09-24] MEDS ORDERED: DEXTROSE 50% 50 ML SYRINGE IV PRN (18:45)
[2023-09-24] MEDS ORDERED: GLUCOSE 10 TAB/TUBE PO PRN (18:45)
[2023-09-24] MEDS ORDERED: GLUCOSE 40% GEL 15 GM TUBE PO PRN (18:45)
[2023-09-24] MEDS ORDERED: GLUCAGON FOR INJ 1 MG VIAL IM PRN (18:45)
--- NOTE | 2023-09-24 19:13 | XRay Report ---
XR chest 2V PA/lateral HISTORY: Preoperative evaluation. COMPARISON: Chest 02/11/2023. FINDINGS: No pneumothorax. No pleural effusions. The cardiac silhouette remains mildly enlarged. The lungs are clear. No evidence for pulmonary edema. No acute fractures. Lumbar spinal fusion hardware i s partially visualized IMPRESSION: Mild cardiomegaly, unchanged. Otherwise, no acute process within the chest. ACT 112: Negative or not required by law. Electronically signed by: Lele Pemberton M.D. 09/24/2023 7:12 PM
[2023-09-24] MEDS ORDERED: oxyCODONE HCL IR 5 MG TAB (IMMEDIATE RELEASE) PO PRN (19:39)
--- NOTE | 2023-09-24 19:47 | Hospitalist Consultation ---
Date of Consultation September 24, 2023 Assessment & Plan (1) Intractable back pain: (2) H/O lumbosacral spine surgery: (3) Morbid obesity: (4) T2DM (type 2 diabetes mellitus): (5) Hypothyroidism: (6) HTN (hypertension): (7) HLD (hyperlipidemia): This is a 73yo F with a PMH of hypothyroidism, dyslipidemia, HTN, obesity, history of spinal surgeries who presents with intractable back pain. Care coordinated with Dr. Alicea. Please see addendum for assessment and plan. I spent a total of 60 minutes coordinating, documenting, and providing care for this patient excluding time spent in the performance of separately billed services. Supervising Physician Co-Signing Physician Notes IM ATTENDING : Patient seen and examined. History obtained from patient and records. Concur with salient points upon review of preceding documentation by Ms. Patsy Garcia,, LUIS. I take responsibility for plan of care below. FINAL ASSESSMENT AND RECOMMENDATIONS as follows : Worsening back pain with incontinence symptoms History of back surgery Systolic murmur on exam hypertension, BP on the lower side Hyponatremia secondary to home diuretic Rx Hypothyroidism, TSH slightly elevated DM2 on oral medications, well-controlled as of outpatient hemoglobin A1c of 5.9 2022 Check TTE re: systolic murmur IVF, hold home diuretic for now Recheck outpatient TSH next month Pharmacy glycemic control consultation as per admission orders DVT prophylaxis. SCDs as per admission orders. Thank you very much for this consultation. Dr. Harrington will follow patient's progress. Text document was generated using [employer] voice recognition software. It may contain grammatical or spelling errors. Kindly contact undersigned for clarification of any documentation item in question. History of Present Illness Reason for Consultation: medicine consult Attending Physician: Timothy Herr DO History of Present Illness This is a 73yo F with a PMH of hypothyroidism, dyslipidemia, HTN, obesity, history of spinal surgeries who presents with intractable back pain. History of L4-S1 decompression, L2-S1 fusion, L2-L4 hardware removal in Dec 2022 with following OR for R sacroiliac joint fusion for loosening of hardware. Pain in lumbar region has resolved but over the past month patient has had worsening lower right back pain, exacerbated with movement and standing. Pain is sharp and shooting. Recently seen at [facility] clinic and completed a prednisone taper on Saturday but was still experiencing severe pain and was seen in [place] ED. Sent home with baclofen and Vicodin. Pain persisted and she returned to ER this evening. Comfortable right now after pain medication. Having more urinary incontinence with standing over the past few days. No saddle anesthesia or fecal incontinence. No new pain or tingling in BLE (has some baseline paresthesias in feet). Recently stopped metformin due to hypoglycemic events and now on pioglotazone. No F/C, lightheadedness, CP, SOB, N/V, abd pain, dysuria, diarrhea or constipation. Allergies Allergy/AdvReac Type Severity Reaction Status Date / Time Sulfa (Sulfonamide Allergy Intermediate Rash Verified 09/24/23 16:58 Antibiotics) gabapentin AdvReac Severe Nightmare Verified 09/24/23 16:58 Home Medications Medication Instructions Recorded Confirmed Type colesevelam 625 mg tablet (WelChol) 1,250 mg PO BID 09/11/21 09/24/23 History hydrochlorothiazide 25 mg tablet 25 mg PO QAM 09/11/21 09/24/23 History pioglitazone 15 mg tablet 15 mg PO QAM 09/11/21 09/24/23 History baclofen 10 mg tablet 10 mg PO TID 02/08/23 09/24/23 History cholecalciferol (vitamin D3) 50 50 mcg PO DAILY 09/22/23 09/24/23 History mcg (2,000 unit) tablet (Vitamin D3) colchicine 0.6 mg tablet (Colcrys) 0.6 mg PO BID PRN Gout Flare 09/22/23 09/24/23 History levothyroxine 200 mcg tablet 200 mcg PO QAM 09/22/23 09/24/23 History hydrocodone 5 mg-acetaminophen 325 1 tab PO Q6H PRN pain #14 tabs 09/23/23 09/24/23 Rx mg tablet naproxen 500 mg tablet (Naprosyn) 500 mg PO BID 09/24/23 09/24/23 History ondansetron 4 mg disintegrating 4 - 8 mg translingual DIRECTED 09/24/23 09/24/23 History tablet PRN NAUSEA/VOMITING prednisone 10 mg tablet 10 mg PO UD 09/24/23 09/24/23 History Patient History Medical History 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 Gout Muscle spasm severe History of COVID-19 03/2022- mild symptoms Lumbar disc herniation with radiculopathy Surgical History Hx of bilateral cataract extraction History of lumbar spinal fusion 01/21/2023 [facility] L2-L4 decompression/fusion (09/14/21): Grade view 1, Garcia#2, ETT 7.0 at [facility] Nausea and vomiting after administration of anesthetic agent states scopolamine patch worked very well after last procedure Hx of dilation and curettage Hx of arthroscopy of left knee meniscus injury Hx of cholecystectomy Hx of tonsillectomy History of x2 History of total knee replacement Left 2012, Right 2006 Family History Mother Sclerosing cholangitis Father Alcohol use disorder Social History Smoking Status: Never smoker Second Hand Exposure: No; Do You Dip or Chew Tobacco: No; Tobacco Cessation Education Requested by Patient: No Hx Alcohol Use: No Hx Substance Use: No Preferred Language: Ugandan Communication Ability: Effective Spray Dyer Required: No Beliefs That Will Affect Care: None marital status: Current Living Situation: Spouse Current Living Situation Comment: Home with current occupational status: retired Other Information That Helps Us Care for You: No Feels Safe at Home: Yes Safety Concerns: Feels Safe At This Time Assistive Devices: Denture - Upper and Glasses Review of Systems Review of Systems: At least ten systems reviewed and negative except as noted in the HPI. Physical Exam Physical Exam: General Appearance: WD/WN, vitals as above, NAD, lying in bed on side, pleasant, conversing easily Head: normocephalic, atraumatic Eyes: normal inspection, PERRL, conjunctivae normal, anicteric sclerae ENT: external ear and nose normal, oropharynx normal Neck: normal visual inspection, trachea midline, no thyromegaly Respiratory: normal respiratory effort, lungs clear to auscultation, no wheeze, rales, rhonchi. No accessory muscle use Cardiovascular: regular rate, rhythm, + systolic murmur, normal peripheral pulses, no BLE edema. Vessels: no JVD Chest: normal inspection of chest Abdomen/GI: normal bowel sounds, soft, nontender, no hepatosplenomegaly Extremities/Musculoskeletal: + TTP R lower back extending to buttocks, no deformities noted, no cyanosis or clubbing, extremities motor strength 5/5 Neurologic: PERRL, EOMI, accommodation nl, no face palsy, no dysarthria, CN's II-XI intact bilaterally and moves all extremities Psychiatric: A+Ox3, euthymic affect Skin: no rashes, normal color, warm/dry Results & Data Results & Data Vital Signs (Past 12 Hours) Vital Signs Temp Pulse Pulse Resp BP BP Pulse Ox 09/24/23 18:20 60 16 121/60 94 09/24/23 17:18 36.6 C 69 17 163/88 H 93 09/24/23 16:28 36.6 C 70 16 103/64 95 O2 Del Method 09/24/23 18:20 Room Air 09/24/23 17:18 Room Air 09/24/23 16:28 Diagnostic Findings Chest X-Ray 09/24/23 16:40 XR chest 2V PA/lateral HISTORY: Preoperative evaluation. COMPARISON: Chest 02/11/2023. FINDINGS: No pneumothorax. No pleural effusions. The cardiac silhouette remains mildly enlarged. The lungs are clear. No evidence for pulmonary edema. No acute fractures. Lumbar spinal fusion hardware is partially visualized IMPRESSION: Mild cardiomegaly, unchanged. Otherwise, no acute process within the chest. ACT 112: Negative or not required by law. Electronically signed by: Lele Pemberton M.D. 09/24/2023 7:12 PM
[2023-09-24] MEDS: SODIUM CHLORIDE 0.9% 1,000 ML IV SCH (19:54)
[2023-09-24] MEDS: BACLOFEN 10 MG TAB PO SCH (20:34)
[2023-09-24] MEDS: INSULIN ASPART PER UNIT CHARGE SC SCH (20:38)
[2023-09-24 20:40] LABS: Thyroid Stimulating Hormone 6.4 uIu/ml (0.300-4.500)
[2023-09-24 21:17] LABS: T4 Free Thyroxine 1.34 ng/dl (0.61-1.60)
[2023-09-24] MEDS: oxyCODONE HCL IR 5 MG TAB (IMMEDIATE RELEASE) PO PRN (23:50)
[2023-09-24] MEDS: ONDANSETRON 4 MG OD TAB PO PRN (23:53)
[2023-09-25] MEDS: INSULIN ASPART PER UNIT CHARGE SC SCH ×2 (00:06→17:26)
[2023-09-25 02:48] LABS: Basophils # (auto) 0.02 K/uL (0.00-0.20); Basophils % (auto) 0.2 %; Eosinophils # (auto) 0.06 K/uL (0.00-0.50); Eosinophils % (auto) 0.5 %; Hematocrit (blood only) 36.8 % (37.0-47.0); Hemoglobin 11.7 g/dl (12.0-16.0); Immature Granulocytes # (auto) 0.04 K/uL (0.01-0.20); Immature Granulocytes % (auto) 0.3 %; Lymphocytes # (auto) 1.85 K/uL (1.20-3.40); Lymphocytes % (auto) 14.2 %; Mean Corpuscular Hgb Conc 31.8 g/dL (32.0-36.0); Mean Corpuscular Volume 91.1 fL (80.0-100.0); Mean Platelet Volume 11.8 fL (9.4-12.4); Monocytes # (auto) 0.96 K/uL (0.11-0.59); Monocytes % (auto) 7.4 %; Neutrophils # (auto) 10.08 K/uL (1.40-6.50); Neutrophils % (auto) 77.4 %; Platelet Count 205 K/uL (130-400); RDW Coefficient of Variation 16.6 % (11.5-14.5); RDW Standard Deviation 55.1 fL (36.4-46.3); Red Blood Count 4.04 M/uL (4.20-5.40); White Blood Count 13.01 K/ul (4.8-10.8)
[2023-09-25 02:49] LABS: BUN Creatinine Ratio 13.2 (10-20); Calcium 8.8 mg/dl (8.6-10.3); Creatinine Clr Calc Pharmacy 84.2 ml/min
[2023-09-25 04:39] LABS: Appearance Urine Clear (Clear); Bilirubin Urine Negative (Negative); Blood Urine Negative (Negative); Color Urine Yellow; Glucose Urine UA Negative (Negative); Ketones Urine Negative (Negative); Leukocyte Esterase Urine Negative (Negative); Nitrite Urine Negative (Negative); Protein Urine Negative (Negative); Specific Gravity Urine 1.016 (1.000-1.030); Urobilinogen Urine Negative (Negative); pH Urine 5.5 (4.5-7.5)
[2023-09-25] MEDS: LEVOTHYROXINE SODIUM 200 MCG TABLET PO SCH (05:50)
--- NOTE | 2023-09-25 06:40 | Anesthesiology Consultation ---
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 History Surgery Operation Date: 09/25/23 10:05 Proposed Procedures p Right Sacroiliac Joint Fusion - Timothy Herr DO Height/Weight Height: 5 ft 5 in Weight: 90.3 kg Allergies Allergy/AdvReac Type Severity Reaction Status Date / Time Sulfa (Sulfonamide Allergy Intermediate Rash Verified 09/24/23 16:58 Antibiotics) gabapentin AdvReac Severe Nightmare Verified 09/24/23 16:58 Medications Home Medications Medication Instructions Recorded Confirmed Last Taken colesevelam 625 mg tablet (WelChol) 1,250 mg PO BID 09/11/21 09/24/23 09/24/23 08:00 hydrochlorothiazide 25 mg tablet 25 mg PO QAM 09/11/21 09/24/23 09/24/23 pioglitazone 15 mg tablet 15 mg PO QAM 09/11/21 09/24/23 09/24/23 baclofen 10 mg tablet 10 mg PO TID 02/08/23 09/24/23 09/24/23 08:00 cholecalciferol (vitamin D3) 50 50 mcg PO DAILY 09/22/23 09/24/23 09/24/23 mcg (2,000 unit) tablet (Vitamin D3) colchicine 0.6 mg tablet (Colcrys) 0.6 mg PO BID PRN Gout Flare 09/22/23 09/24/23 Unknown levothyroxine 200 mcg tablet 200 mcg PO QAM 09/22/23 09/24/23 09/24/23 hydrocodone 5 mg-acetaminophen 325 1 tab PO Q6H PRN pain #14 tabs 09/23/23 09/24/23 Unknown mg tablet naproxen 500 mg tablet (Naprosyn) 500 mg PO BID 09/24/23 09/24/23 09/24/23 08:00 ondansetron 4 mg disintegrating 4 - 8 mg translingual DIRECTED 09/24/23 09/24/23 Unknown tablet PRN NAUSEA/VOMITING prednisone 10 mg tablet 10 mg PO UD 09/24/23 09/24/23 Unknown Active Medications Generic Name Dose Route Start Last Admin Trade Name Freq PRN Reason Stop Dose Admin Baclofen 10 mg 09/24/23 21:00 09/24/23 20:34 Baclofen 10 Mg Tab PO 10/24/23 20:59 10 mg TID FERNY Administration Hydromorphone HCl 0.5 mg 09/24/23 16:39 09/25/23 00:58 Hydromorphone Inj 0.5 Mg/0.5 Ml Syr IV 10/08/23 16:38 0.5 mg Q3H PRN Administration MOD pain (scale 4-6) & Pre PT Sodium Chloride 1,000 mls @ 60 mls/hr 09/24/23 19:45 09/24/23 19:54 Nss IV 10/24/23 19:44 60 mls/hr .[id number] FERNY Administration Insulin Aspart 0 units 09/25/23 00:00 09/25/23 06:03 Insulin Aspart Per Unit Charge SC 10/24/23 20:59 Not Given Q6 FERNY Levothyroxine Sodium 200 mcg 09/25/23 06:30 09/25/23 05:50 Levothyroxine Sodium 200 Mcg Tablet PO 10/25/23 06:29 200 mcg DAILYBB FERNY Administration Ondansetron HCl 4 mg 09/24/23 16:39 09/24/23 17:25 Ondansetron Inj 2 Mg/Ml 2 Ml Vial IV 10/24/23 16:38 4 mg Q6H PRN Administration Nausea &/or Vomiting Ondansetron HCl 4 mg 09/24/23 16:39 09/24/23 23:53 Ondansetron 4 Mg Od Tab PO 10/24/23 16:38 4 mg Q6H PRN Administration Nausea Oxycodone HCl 5 - 10 mg 09/24/23 16:39 09/25/23 05:51 Oxycodone Hcl Ir 5 Mg Tab (Immediate Release) PO 10/08/23 16:38 10 mg Q4H PRN Administration mod to severe pain Past Medical History Medical History 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 Gout Muscle spasm severe History of COVID-19 03/2022- mild symptoms Lumbar disc herniation with radiculopathy Past Family History Family History Mother Sclerosing cholangitis Father Alcohol use disorder Past Surgical History Surgical History Hx of bilateral cataract extraction History of lumbar spinal fusion 01/21/2023 [facility] L2-L4 decompression/fusion (09/14/21): Grade view 1, Garcia#2, ETT 7.0 at [facility] Nausea and vomiting after administration of anesthetic agent states scopolamine patch worked very well after last procedure Hx of dilation and curettage Hx of arthroscopy of left knee meniscus injury Hx of cholecystectomy Hx of tonsillectomy History of x2 History of total knee replacement Left 2012, Right 2006 Social History Smoking Status: Never smoker Do You Dip or Chew Tobacco: No Hx Alcohol Use: No Hx Substance Use: No substance use type: does not use Physical Exam Vital Signs Last Vital Signs Temp 97.7 F 09/24/23 19:46 Pulse 69 09/24/23 19:46 Resp 16 09/24/23 19:46 BP 108/63 09/24/23 19:46 Pulse Ox 91 09/24/23 19:46 O2 Del Method Room Air 09/24/23 19:46 Testing Laboratory Results 09/25/23 01:33 09/25/23 01:33 Urine Color Yellow 09/25/23 04:28 Urine Appearance Clear (Clear) 09/25/23 04:28 Urine pH 5.5 (4.5-7.5) 09/25/23 04:28 Ur Specific [place] 1.016 (1.000-1.030) 09/25/23 04:28 Urine Protein Negative (Negative) 09/25/23 04:28 Urine Glucose (UA) Negative (Negative) 09/25/23 04:28 Urine Ketones Negative (Negative) 09/25/23 04:28 Urine Nitrite Negative (Negative) 09/25/23 04:28 Ur Leukocyte Esterase Negative (Negative) 09/25/23 04:28 Blood Type O Negative 09/25/23 01:33 Antibody Screen NEGATIVE 09/25/23 01:33 09/25/23 09/24/23 09/24/23 05:59 23:58 19:49 POC Glucose 128 H 104 H 162 H Electrocardiogram Date: 09/22/23 Normal sinus rhythm, rate 69 bpm Low voltage QRS Borderline ECG When compared with ECG of 11-FEB-2023 11:13, Nonspecific T wave abnormality no longer evident in Anterolateral leads Confirmed by Tristan Kitchen ([id number]) on 09/23/2023 10:11:23 PM Chest X-Ray Date: 09/24/23 IMPRESSION: Mild cardiomegaly, unchanged. Otherwise, no acute process within the chest.
[2023-09-25] MEDS ORDERED: ROCURONIUM BROMIDE 10 MG/ML 5 ML VIAL IV ONE ×2 (08:14→11:01)
[2023-09-25] MEDS ORDERED: DEXAMETHASONE SOD INJ 4 MG/ML VIAL ONE (08:14)
[2023-09-25] MEDS ORDERED: LIDOCAINE 2% 2 ML VIAL/AMP(20MG/ML) INFIL ONE (08:14)
[2023-09-25] MEDS ORDERED: ONDANSETRON INJ 2 MG/ML 2 ML VIAL ONE (08:14)
[2023-09-25] MEDS ORDERED: PROPOFOL IV EMULSION 10 MG/ML 20 ML VIAL IV ONE (08:14)
[2023-09-25] MEDS ORDERED: MIDAZOLAM HCL 1 MG/ML 2ML VIAL ONE (08:15)
[2023-09-25] MEDS ORDERED: SUGAMMADEX SODIUM 200 MG/2 ML VIAL IV ONE (08:15)
[2023-09-25] MEDS ORDERED: fentaNYL citrate PF 100 MCG/2 ML VIAL ONE (08:15)
[2023-09-25] MEDS ORDERED: GLYCOPYRROLATE 0.2 MG/ML VIAL ONE (08:15)
[2023-09-25] MEDS ORDERED: PHENYLEPHRINE 100MCG/ML 10ML SYR IV ONE (08:23)
[2023-09-25] MEDS ORDERED: hydroCHLOROthiazide 25 MG TAB PO SCH (09:00)
[2023-09-25] MEDS ORDERED: PIOGLITAZONE HCL 15 MG TAB PO SCH (09:00)
[2023-09-25] MEDS: COLESEVELAM HCL PO SCH (09:02)
[2023-09-25] MEDS ORDERED: HYDROmorphone INJ 1 MG/ML SYRINGE IV PRN (09:12)
[2023-09-25] MEDS ORDERED: ONDANSETRON INJ 2 MG/ML 2 ML VIAL IV PRN ×2 (09:12→13:14)
[2023-09-25] MEDS ORDERED: ATROPINE SULFATE 0.1 MG/ML 10ML SYR IV PRN (09:12)
[2023-09-25] MEDS ORDERED: ePHEDrine sulfate 50 MG/ML AMP IV PRN (09:12)
[2023-09-25] MEDS: SCOPOLAMINE 1 MG/72 HR TDSY PATCH TD ONE ×2 (09:14→10:38)
--- NOTE | 2023-09-25 09:39 | History & Physical Report ---
Date of Service September 25, 2023 Assessment & Plan (1) Sacroiliitis: Plan: Assessment right sacroiliitis. Plan at this time a lengthy discussion regarding her pathology and treatment plans. Will plan for a right sacral iliac joint fusion with removal of iliac bolt Admission and Anticipated Discharge Date Admission Date: September 24, 2023 History of Present Illness Chief Complaint: Right sacroiliitis Primary Care Provider: Jadyn Johnson DO This is a 73-year-old female well-known to me the presents with marked decline in status with worsening right sacroiliitis. Single injection was performed several weeks ago provided temporary significant relief but is worn off and now she is unable to ambulate without severe pain. Subsequently she is here for surgical intervention. Allergies Allergy/AdvReac Type Severity Reaction Status Date / Time Sulfa (Sulfonamide Allergy Intermediate Rash Verified 09/24/23 16:58 Antibiotics) gabapentin AdvReac Severe Nightmare Verified 09/24/23 16:58 Home Medications Medication Instructions Recorded Confirmed Type colesevelam 625 mg tablet (WelChol) 1,250 mg PO BID 09/11/21 09/24/23 History hydrochlorothiazide 25 mg tablet 25 mg PO QAM 09/11/21 09/24/23 History pioglitazone 15 mg tablet 15 mg PO QAM 09/11/21 09/24/23 History baclofen 10 mg tablet 10 mg PO TID 02/08/23 09/24/23 History cholecalciferol (vitamin D3) 50 50 mcg PO DAILY 09/22/23 09/24/23 History mcg (2,000 unit) tablet (Vitamin D3) colchicine 0.6 mg tablet (Colcrys) 0.6 mg PO BID PRN Gout Flare 09/22/23 09/24/23 History levothyroxine 200 mcg tablet 200 mcg PO QAM 09/22/23 09/24/23 History hydrocodone 5 mg-acetaminophen 325 1 tab PO Q6H PRN pain #14 tabs 09/23/23 09/24/23 Rx mg tablet naproxen 500 mg tablet (Naprosyn) 500 mg PO BID 09/24/23 09/24/23 History ondansetron 4 mg disintegrating 4 - 8 mg translingual DIRECTED 09/24/23 History tablet PRN NAUSEA/VOMITING prednisone 10 mg tablet 10 mg PO UD 09/24/23 09/24/23 History Past Med/Surg History Problem List (Updated 09/25/23 @ 09:39 by Timothy Herr DO) Sacroiliitis Intractable back pain H/O lumbosacral spine surgery (Acute) Neurogenic claudication due to lumbar spinal stenosis Morbid obesity Neuroforaminal stenosis of lumbar spine (Acute) Hypothyroidism HLD (hyperlipidemia) HTN (hypertension) T2DM (type 2 diabetes mellitus) Medical History 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 Gout Muscle spasm severe History of COVID-19 03/2022- mild symptoms Lumbar disc herniation with radiculopathy Surgical History Hx of bilateral cataract extraction History of lumbar spinal fusion 01/21/2023 [facility] L2-L4 decompression/fusion (09/14/21): Grade view 1, Garcia#2, ETT 7.0 at [facility] Nausea and vomiting after administration of anesthetic agent states scopolamine patch worked very well after last procedure Hx of dilation and curettage Hx of arthroscopy of left knee meniscus injury Hx of cholecystectomy Hx of tonsillectomy History of x2 History of total knee replacement Left 2012, Right 2006 Family History Mother Sclerosing cholangitis Father Alcohol use disorder Social History Smoking Status: Never smoker Second Hand Exposure: No; Do You Dip or Chew Tobacco: No; Tobacco Cessation Education Requested by Patient: No Hx Alcohol Use: No Hx Substance Use: No Preferred Language: Vietnamese Communication Ability: Effective Wheel Setter Required: No Beliefs That Will Affect Care: None marital status: Current Living Situation: Spouse Current Living Situation Comment: Home with current occupational status: retired Other Information That Helps Us Care for You: No Feels Safe at Home: Yes Safety Concerns: Feels Safe At This Time Assistive Devices: Denture - Upper and Glasses Physical Exam Physical Exam: Patient is exquisite tenderness palpation of the right SI joint. She has no midline discomfort. She is neurologically intact to detailed testing lower extremities. Results & Data Results & Data Vital Signs (Past 12 Hours) Vital Signs Temp Pulse Pulse Resp BP Pulse Ox O2 Del Method 09/25/23 08:41 37.2 C 88 16 113/57 L 92 Room Air 09/25/23 07:34 37.1 C 78 16 106/62 92 Room Air
[2023-09-25] MEDS: ceFAZolin 2000MG 2,000 MG/15 ML SYR IV SCH ×2 (10:24→18:19)
--- NOTE | 2023-09-25 10:29 | Pharmacy Report ---
Pharmacy Glycemic Short Note 2 - Date of Service September 25, 2023 - Glycemic Short BSG Results (Last 24 hours): 09/24/23 09/24/23 09/25/23 19:49 23:58 01:33 Glucose 122 H POC Glucose 162 H 104 H 09/25/23 09/25/23 05:59 07:31 Glucose POC Glucose 128 H 140 H OUTPATIENT ANTIDIABETIC REGIMEN: * pioglitazone 15 mg PO daily HbA1c: 5.9% (01/22/23) ASSESSMENT: * AMENA is a 73 year old female w/ sacroiliitis * Scheduled for right sacroiliac joint fusion today * Well-controlled diabetes as an outpatient with pioglitazone only * Conservative bolus insulin only for now, will reassess if steroids are ordered * Dexamethasone 8 mg IV x 1 in OR - will give low-dose basal today x 1 PLAN FOR INPATIENT GLYCEMIC CONTROL: * Hold outpatient oral diabetes medications * Basal insulin * Lantus 10 units SC x 1 * Reassess in AM * Bolus insulin * NovoLog per scale ACHS or Q6hrs while NPO * Goal Range: Low 110 mg/dL - High 140 mg/dL * Correction Factor: 30 mg/dL/unit * Nutritional / Prandial insulin per carb ratio of 1 unit per 10 grams CHO consumed
[2023-09-25] MEDS ORDERED: PHENYLEPHRINE HCL 10 MG/ML VIAL ONE (11:27)
[2023-09-25] MEDS ORDERED: HYDROmorphone INJ 2 MG/ML SYR/VIAL ONE (11:41)
[2023-09-25] MEDS: BUPIVACAINE/EPINEPHRINE 0.25% 1:200,000 30 ML VIAL ONE (11:52)
[2023-09-25] MEDS: ceFAZolin 330 MG/ML 1 GM VIAL ONE (11:53)
[2023-09-25] MEDS: FLOSEAL HEMOSTATIC MATRIX 10ML TOP ONE (11:54)
--- NOTE | 2023-09-25 11:56 | Operative Report ---
Post Operative Report Pre & Post Diagnosis Operation Date: 09/25/23 10:05 Pre-Op Diagnosis: Right sacroiliitis Post-Op Diagnosis: Same I identified the patient and participated in the time-out.: Yes Procedure Operation Date: 09/25/23 10:05 Actual Procedures #1 removal of right iliac bolt and connector. #2 right open sacroiliac joint fusion. #3 placement of Nevro one 9 mm implant into the right SI joint. #4 placement of 2 globus MORALES-coated screws 50 mm and 40 mm in length across the right SI joint. #5 placement of os design bone graft and the screws and open SI fusion. Surgeon Timothy Herr, DO Instructional Technology Teacher Ainsley Mullins Estimated Blood Loss 25 Findings See Below Patient is 5 foot 5 weighing over 90 kg BMI in excess of 33. Patient's body was did create significant technical difficulty with positioning exposure the procedure itself at least 50% increased operative time. Specimens None Indications This is a 73-year-old female well-known to me with marked client status secondary to advanced sacroiliitis and inability to bear weight and ambulate due to pain. Subsequent she is here for surgical fixation. Description of Procedure Patient was met with identified informed consent obtained. Patient was then taken to the operative suite underwent patient placed in a prone position on the Sidney table chest padded bolsters. All bony prominences well-padded eyes inspected to ensure no external precipice spinal. This point the right upper buttock was prepped and draped normal sterile fashion. Sharp dissection with assisted Bovie cautery performed down to and exposing the distal elba on the right including the iliac bolt and connector. The bolt and connector was removed. The right SI joint was then identified and I curetted out the right SI joint to subcortical bleeding bone followed by placement of the Nevro 1 SI joint implant. It was filled with os design bone graft. It was locked into position interdigitating the ileum to the sacrum. After this was completed a small incision was placed on the lateral upper buttock in line with the posterior slope of the sacrum. A K wire was then inserted and passed across the right SI joint with inlet outlet and lateral views. Satisfied with placement I drilled over the SI joint and placed a 50 mm MORALES-coated globus screw filled with os design bone graft across the right SI joint. Screw had excellent purchase and alignment. The second screw was then placed distal to this proximal screw in a similar fashion. The screw was 40 mm in length MORALES-coated and also filled with os design bone graft. It demonstrated good alignment and purchase. After this complete the incisions were copiously irrigated closed with subcutaneous Vicryl and 4 Monocryl for final closure. Steri-Strips sterile dressings placed. Patient waken taken to PACU stable condition. Please note Ainsley Mullins was present at the entire surgery involved in patient positioning complex portion of the surgery and final skin closure. I attest to the content of the Intraoperative Record and any orders documented therein. Any exceptions are noted below.
[2023-09-25] MEDS: fentaNYL citrate PF 100 MCG/2 ML VIAL IV PRN (12:30)
--- NOTE | 2023-09-25 12:55 | Anesthesiology Progress Note ---
Date of Service September 25, 2023 Anesthesia Post Procedure Vital Signs Vital Signs: Temp Pulse Pulse Pulse Resp BP BP 09/25/23 12:45 67 15 110/65 09/25/23 12:35 76 9 L 113/70 09/25/23 12:25 71 12 120/63 09/25/23 12:18 97.0 F L 72 16 131/64 09/25/23 08:41 99.0 F 88 16 113/57 L 09/25/23 07:34 98.8 F 78 16 106/62 09/24/23 19:46 97.7 F 69 16 108/63 09/24/23 18:20 60 16 121/60 09/24/23 17:18 97.9 F 69 17 163/88 H 09/24/23 16:28 97.9 F 70 16 103/64 Pulse Ox O2 Del Method O2 Flow Rate 09/25/23 12:45 94 Nasal Cannula 4 09/25/23 12:35 95 Nasal Cannula 4 09/25/23 12:25 97 Nasal Cannula 4 09/25/23 12:18 96 Nasal Cannula 4 09/25/23 08:41 92 Room Air 09/25/23 07:34 92 Room Air 09/24/23 19:46 91 Room Air 09/24/23 18:20 94 Room Air 09/24/23 17:18 93 Room Air 09/24/23 16:28 95 Pain Intensity Lower Back: Pain Intensity: 9 Transfer of Care Handoff Completed per policy Notes Mental Status: alert / awake / arousable and participated in evaluation Patient Amnestic to Procedure: Yes Nausea / Vomiting: adequately controlled Pain: adequately controlled Airway Patency, RR, SpO2: stable & adequate BP & HR: stable & adequate Hydration State: stable & adequate Anesthetic Complications: no major complications apparent and Pt Satisfied with anesthetic care
[2023-09-25] MEDS ORDERED: SOD PHOSPHATE/SOD BIPHOSPHATE ENEMA 132 ML BTL PR PRN (13:14)
[2023-09-25] MEDS ORDERED: METOCLOPRAMIDE HCL INJ 5 MG/ML 2 ML VIAL IV PRN (13:14)
[2023-09-25] MEDS ORDERED: FAMOTIDINE 20 MG TAB PO PRN (13:14)
[2023-09-25] MEDS ORDERED: ALUMINUM/MAGNESIUM SUSP 30 ML UDC PO PRN (13:14)
[2023-09-25] MEDS ORDERED: diphenhydrAMINE Capsule 25 MG CAP PO PRN (13:14)
[2023-09-25] MEDS ORDERED: hydrOXYzine HCl 25 MG TAB PO PRN (13:14)
[2023-09-25] MEDS ORDERED: ACETAMINOPHEN 500 MG TAB PO PRN (13:14)
[2023-09-25] MEDS ORDERED: DO NOT ADMINISTER PNEUMOCOCCAL VACCINE PRN (13:14)
[2023-09-25] MEDS ORDERED: DO NOT ADMINISTER FLU VACCINE PRN (13:14)
[2023-09-25] MEDS ORDERED: LORazepam 0.5 MG in SYRINGE 0.25 ML IV PRN (13:14)
[2023-09-25] MEDS ORDERED: ONDANSETRON 4 MG OD TAB PO PRN (13:14)
[2023-09-25] MEDS ORDERED: MAGNESIUM HYDROXIDE SUSP 30 ML UDC PO PRN (13:14)
[2023-09-25] MEDS ORDERED: ACETAMINOPHEN 1,000 MG/100 ML VIAL IV PRN (13:14)
[2023-09-25] MEDS ORDERED: bisacodyL 10 MG SUPP PR PRN (13:14)
[2023-09-25] MEDS ORDERED: NALOXONE HCL 0.4 MG/1 ML VIAL/CARP IV PRN (13:14)
[2023-09-25] MEDS ORDERED: PROMETHAZINE HCL 12.5 MG in SODIUM CHLORIDE 0.9% 50 ML IV PRN (13:14)
--- NOTE | 2023-09-25 13:19 | Fluoroscopy Report ---
FL pelvis 1-2V CLINICAL HISTORY: RT SI JTchronic low back pain COMPARISON STUDY: CT abdomen and pelvis 09/14/2023 FLUOROSCOPY TIME: 104.9 seconds FLUOROSCOPY IMAGES: 4 EXPOSURE DOSE: 108.61 mGy FINDINGS: Extensive lumbar spinal fusion hardware with discectomy changes redemonstrated. Fusion hard mcgovern projects over the left SI joint which appears intact. No unexpected opaque foreign bodies identi fied on the images submitted. IMPRESSION: Fluoroscopic assistance as above. ACT 112: Negative or not required by law. Electronically signed by: Boyd Negrete M.D. 09/25/2023 1:17 PM
--- NOTE | 2023-09-25 13:29 | Hospitalist Progress Note ---
Date of Service September 25, 2023 Assessment & Plan (1) Intractable back pain: (2) H/O lumbosacral spine surgery: (3) Morbid obesity: (4) T2DM (type 2 diabetes mellitus): (5) Hypothyroidism: (6) HTN (hypertension): (7) HLD (hyperlipidemia): Plan: This is a 73yo F with a PMH of hypothyroidism, dyslipidemia, HTN, obesity, history of spinal surgeries who presents with intractable back pain. Intractable back pain Hx of multiple lumbosacral spine surgery S/p R SI joint fusion, POD # [address] Herr hx of SI joint fusion in past pain currently improved pain/wound management per ortho encourage incentive spirometry continue IV hydration until adequate po intake T2DM: on pioglitazone, a1c 6.4 in may, insulin per pharmacy, appreciate their assistance HTN: chronic, stable, hold hctz perioperatively, resume as able Acute hyponatremia: receiving IVF, trending up, likely diuretic induced, HCTZ on hold HLD: chronic stable on colesevelam Hypothyroidism: Chronic, stable continue levothyroxine, TSH 6.4 but Free T4 1.34 DVT ppx: SCDS per primary FULL CODE PCP: Jadyn Johnson DO Dispo: admitted to medical, will need PT/OT recs when able A total of 46 minutes was spent coordinating, documenting, and providing care for this patient excluding time spent in the performance of separately billed services. This included personally viewing all current laboratories and imaging studies, medication reconciliation, outpatient chart review, and discussion with specialists. Admission and Anticipated Discharge Date Admission Date: September 25, 2023 Supervising Physician Co-Signing Physician Notes I have seen and discussed the case with the collaborating advanced practitioner. I agree with the above PN. I have reviewed and confirmed the patients medical history, the findings on physical examination, and the patients diagnosis and treatment plan with Nahomy SMITH and agree with the information documented. I have reviewed the advanced practitioner's documentation, and I agree with, and take responsibility for the plan of care Subjective This is a 73 yr old F who has a significant PMH of T2DM, HLD, HTN, Hypothyroidism, LDD who presented to ED with worsening Back Pain. Hx of multiple lumbar surgeries. She is now s/p R SI joint fusion by Dr. Herr. She currently feels her pain is significantly better. She feels slightly lightheaded. She denies f/c/s, chest pain, sob, n/v/d. Nurse, Maci is at bedside. Review of Systems 2 Review of Systems: All systems reviewed & are unremarkable except as noted in HPI & below Physical Exam Physical Exam: Gen: WD/WN, NAD, A&O x3, lying in bed, post op attire HEENT: Normocephalic, atraumatic, conjunctivae moist, sclerae anicteric, mucous membranes moist. Lung: Clear to Auscultation bilaterally, no wheezes/rales/rhonchi Heart: Regular rate, regular rhythm, 1/6 KAMARI LACW near mitral region, no rubs, or gallops Abdomen: Soft, NT, ND +BS x 4 Extremities: trace pedal edema, TEDS/SCDS in place, 2 dressing in lower lumbar region cdi Skin: Warm, no rash, negative turgor. Results & Data Results & Data Vital Signs (Past 12 Hours) Vital Signs Temp Pulse Pulse Resp BP Pulse Ox O2 Del Method 09/25/23 13:14 36.6 C 73 16 115/73 94 Nasal Cannula 09/25/23 12:55 36.3 C L 63 14 108/56 L 93 Nasal Cannula 09/25/23 12:45 67 15 110/65 94 Nasal Cannula 09/25/23 12:35 76 9 L 113/70 95 Nasal Cannula 09/25/23 12:25 71 12 120/63 97 Nasal Cannula 09/25/23 12:18 36.1 C L 72 16 131/64 96 Nasal Cannula 09/25/23 08:41 37.2 C 88 16 113/57 L 92 Room Air 09/25/23 07:34 37.1 C 78 16 106/62 92 Room Air O2 Flow Rate 09/25/23 13:14 2 09/25/23 12:55 2 09/25/23 12:45 4 09/25/23 12:35 4 09/25/23 12:25 4 09/25/23 12:18 4 09/25/23 08:41 09/25/23 07:34 Laboratory Results I have independently reviewed and interpreted patient's labs cbc. bmp Diagnostic Findings Pelvis X-Ray 09/25/23 06:53 FL pelvis 1-2V CLINICAL HISTORY: RT SI JTchronic low back pain COMPARISON STUDY: CT abdomen and pelvis 09/14/2023 FLUOROSCOPY TIME: 104.9 seconds FLUOROSCOPY IMAGES: 4 EXPOSURE DOSE: 108.61 mGy FINDINGS: Extensive lumbar spinal fusion hardware with discectomy changes redemonstrated. Fusion hardware projects over the left SI joint which appears intact. No unexpected opaque foreign bodies identified on the images submitted. IMPRESSION: Fluoroscopic assistance as above. ACT 112: Negative or not required by law. Electronically signed by: Boyd Negrete M.D. 09/25/2023 1:17 PM Medications Administered Current Inpatient Medications Acetaminophen (Acetaminophen 500 Mg Tab) 1,000 mg PO Q8H PRN PRN Reason: MILD Pain Scale 1,2,3 & Pre PT Stop: 10/25/23 13:13 Al Hydrox/Mg Hydrox/Simethicone (Aluminum/Magnesium Susp 30 Ml Udc) 30 ml PO Q6H PRN PRN Reason: Dyspepsia Stop: 10/25/23 13:13 Atropine Sulfate (Atropine Sulfate 0.1 Mg/Ml 10ml Syr) 0.5 mg IV Q1M PRN PRN Reason: PACU Use-HR<40 &/or Bradycardi Stop: 09/25/23 17:12 Baclofen (Baclofen 10 Mg Tab) 10 mg PO TID FERNY Stop: 10/24/23 20:59 Last Admin: 09/25/23 09:02 Dose: Not Given Bisacodyl (Bisacodyl 10 Mg Supp) 10 mg VT DAILY PRN PRN Reason: Constipation Stop: 10/25/23 13:13 Colesevelam HCl (Colesevelam Hcl) 2 each PO BIDM FERNY Stop: 10/25/23 07:59 Last Admin: 09/25/23 09:02 Dose: Not Given Dextrose (Dextrose 50% 50 Ml Syringe) 25 - 50 ml IV UD PRN; Protocol PRN Reason: Hypoglycemia Protocol Stop: 10/24/23 18:44 Diphenhydramine HCl (Diphenhydramine Capsule 25 Mg Cap) 25 mg PO Q6H PRN PRN Reason: Allergic Rhinitis/Insomnia Stop: 10/24/23 16:38 Diphenhydramine HCl (Diphenhydramine Capsule 25 Mg Cap) 25 mg PO Q6H PRN PRN Reason: Allergic Rhinitis/Insomnia Stop: 10/25/23 13:13 Ephedrine Sulfate (Ephedrine Sulfate 50 Mg/Ml Amp) 5 mg IV Q5M PRN PRN Reason: PACU Use Only-SBP<90 mmHg Stop: 09/25/23 17:12 Famotidine (Famotidine 20 Mg Tab) 20 mg PO Q12H PRN PRN Reason: Dyspepsia Stop: 10/25/23 13:13 Fentanyl Citrate (Fentanyl Citrate Pf 100 Mcg/2 Ml Vial) 50 mcg IV Q5M PRN PRN Reason: PACU Use Only-Pain Stop: 09/25/23 17:13 Last Admin: 09/25/23 12:35 Dose: 50 mcg Glucagon (Glucagon For Inj 1 Mg Vial) 1 mg IM UD PRN; Protocol PRN Reason: Hypoglycemia Protocol Stop: 10/24/23 18:44 Glucose (Glucose 40% Gel 15 Gm Tube) 15 - 30 gm PO UD PRN; Protocol PRN Reason: Hypoglycemia Protocol Stop: 10/24/23 18:44 Glucose (Glucose 10 Tab/Tube) 4 - 8 tab PO UD PRN; Protocol PRN Reason: Hypoglycemia Protocol Stop: 10/24/23 18:44 Hydromorphone HCl (Hydromorphone Inj 0.5 Mg/0.5 Ml Syr) 0.5 mg IV Q3H PRN PRN Reason: MOD pain (scale 4-6) & Pre PT Stop: 10/08/23 16:38 Last Admin: 09/25/23 07:31 Dose: 0.5 mg Hydromorphone HCl (Hydromorphone Inj 1 Mg/Ml Syringe) 0.25 mg IV Q5M PRN PRN Reason: PACU Use Only-Pain Stop: 09/25/23 17:13 Hydroxyzine HCl (Hydroxyzine Hcl 25 Mg Tab) 25 mg PO Q8H PRN PRN Reason: Anxiety Stop: 10/25/23 13:13 Promethazine HCl 12.5 mg/ (Sodium Chloride) 50.5 mls @ 202 mls/hr IV Q6H PRN PRN Reason: Nausea &/or Vomiting Stop: 10/24/23 16:38 Acetaminophen (Ofirmev) 1,000 mg in 100 mls @ 400 mls/hr IV Q8H PRN PRN Reason: Pain Rating 1-3 & Pre PT Stop: 09/25/23 16:40 Cefazolin Sodium (Ancef 2000mg) 2,000 mg in 15 mls @ 3.75 mls/min IV PREOP FERNY; Protocol Stop: 09/26/23 05:59 Last Admin: 09/25/23 10:24 Dose: 3.75 mls/min Lorazepam 0.5 mg/ Syringe 0.5 mls @ 2 mls/min IV Q8H PRN; Protocol PRN Reason: Sedation/Anxiety Stop: 10/24/23 16:38 Cefazolin Sodium (Ancef 2000mg) 2,000 mg in 15 mls @ 3.75 mls/min IV Q8H FERNY; Protocol Stop: 09/26/23 02:03 Lactated Ringer's (Lr) 1,000 mls @ 100 mls/hr IV .Q10H FERNY Stop: 10/25/23 13:13 Lorazepam 0.5 mg/ Syringe 0.5 mls @ 2 mls/min IV Q8H PRN; Protocol PRN Reason: Sedation/Anxiety Stop: 10/25/23 13:13 Influenza Virus Vaccine Quadrival (Do Not Administer Flu Vaccine) 1 each N/A PRN PRN PRN Reason: Notification Stop: 10/25/23 13:13 Insulin Aspart (Insulin Aspart Per Unit Charge) 0 units SC ACHS [facility] Stop: 10/25/23 16:29 Ketorolac Tromethamine (Ketorolac Tromethamine 15 Mg/Ml Vial) 15 mg IV Q6H PRN PRN Reason: Pain Levothyroxine Sodium (Levothyroxine Sodium 200 Mcg Tablet) 200 mcg PO DAILYBB [facility] Stop: 10/25/23 06:29 Last Admin: 09/25/23 05:50 Dose: 200 mcg Lorazepam (Lorazepam 0.5 Mg Tab) 0.5 mg PO Q8H PRN PRN Reason: Sedation/Anxiety Stop: 10/25/23 13:13 Magnesium Hydroxide (Magnesium Hydroxide Susp 30 Ml Udc) 30 ml PO Q24H PRN PRN Reason: Constipation Stop: 10/25/23 13:13 Metoclopramide HCl (Metoclopramide Hcl Inj 5 Mg/Ml 2 Ml Vial) 10 mg IV Q6H PRN PRN Reason: Nausea &/or Vomiting Stop: 10/24/23 16:38 Metoclopramide HCl (Metoclopramide Hcl Inj 5 Mg/Ml 2 Ml Vial) 10 mg IV Q6H PRN PRN Reason: Nausea &/or Vomiting Stop: 10/25/23 13:13 Miscellaneous (Carbohydrates For Hypoglycemia ) 15 - 30 gm PO UD PRN PRN Reason: Hypoglycemia Treatment Stop: 10/24/23 18:44 Miscellaneous (Remove Transderm-Scop Patch) 1 each N/A ONE ONE Stop: 09/28/23 06:01 Miscellaneous (Check Scopolamine Patch Placement) 1 each N/A QS FERNY Stop: 09/28/23 05:59 Miscellaneous Information (Pharmacy Glycemic Mgmt Consult) 1 each N/A UD PRN PRN Reason: Consult Stop: 10/24/23 16:44 Naloxone HCl (Naloxone Hcl 0.4 Mg/1 Ml Vial/Carp) 0.1 mg IV Q5M PRN PRN Reason: Oversedation/respiratory dep Stop: 10/24/23 16:38 Naloxone HCl (Naloxone Hcl 0.4 Mg/1 Ml Vial/Carp) 0.1 mg IV Q5M PRN PRN Reason: Oversedation/Resp depression Stop: 10/25/23 13:13 Ondansetron HCl (Ondansetron Inj 2 Mg/Ml 2 Ml Vial) 4 mg IV Q6H PRN PRN Reason: Nausea &/or Vomiting Stop: 10/24/23 16:38 Last Admin: 09/25/23 07:34 Dose: 4 mg Ondansetron HCl (Ondansetron 4 Mg Od Tab) 4 mg PO Q6H PRN PRN Reason: Nausea Stop: 10/24/23 16:38 Last Admin: 09/24/23 23:53 Dose: 4 mg Ondansetron HCl (Ondansetron Inj 2 Mg/Ml 2 Ml Vial) 4 mg IV ONCE PRN PRN Reason: PACU Use Only-Nausea/Vomiting Stop: 09/25/23 17:13 Ondansetron HCl (Ondansetron Inj 2 Mg/Ml 2 Ml Vial) 4 mg IV Q6H PRN PRN Reason: Nausea &/or Vomiting Stop: 10/25/23 13:13 Ondansetron HCl (Ondansetron 4 Mg Od Tab) 4 mg PO Q6H PRN PRN Reason: Nausea Stop: 10/25/23 13:13 Oxycodone HCl (Oxycodone Hcl Ir 5 Mg Tab (Immediate Release)) 5 - 10 mg PO Q4H PRN PRN Reason: mod to severe pain Stop: 10/08/23 16:38 Last Admin: 09/25/23 05:51 Dose: 10 mg Pneumococcal Polyvalent Vaccine (Do Not Administer Pneumococcal Vaccine) 1 each N/A PRN PRN PRN Reason: Notification Stop: 10/25/23 13:13 Polyethylene Glycol (Polyethylene (Miralax) 17 Gm Pack) 17 gm PO Q6 FERNY Stop: 10/26/23 05:59 Senna/Docusate Sodium (Docusate Sodium/Senna 50/8.6mg Tab) 2 tab PO HS FERNY Stop: 10/25/23 20:59 Sodium Biphosphate/Sodium Phosphate (Sod Phosphate/Sod Biphosphate Enema 132 Ml Btl) 132 ml VT ONE PRN PRN Reason: Constipation Stop: 10/25/23 13:13
[2023-09-25] MEDS ORDERED: Nursing to Pharmacy Communication SCH (13:30)
[2023-09-25] MEDS: LACTATED RINGER'S 1,000 ML IV SCH (14:25)
[2023-09-25] MEDS: LANTUS PER UNIT CHARGE SC ONE (14:26)
[2023-09-25] MEDS: CHECK SCOPOLAMINE PATCH PLACEMENT SCH (15:29)
[2023-09-25] MEDS: DOCUSATE SODIUM/SENNA 50/8.6MG TAB PO SCH (20:53)
[2023-09-26] MEDS: POLYETHYLENE (MIRALAX) 17 GM PACK PO SCH (05:43)
[2023-09-26 07:06] LABS: Basophils # (auto) 0.02 K/uL (0.00-0.20); Basophils % (auto) 0.2 %; Eosinophils # (auto) 0.01 K/uL (0.00-0.50); Eosinophils % (auto) 0.1 %; Hematocrit (blood only) 32.5 % (37.0-47.0); Hemoglobin 10.6 g/dl (12.0-16.0); Immature Granulocytes # (auto) 0.05 K/uL (0.01-0.20); Immature Granulocytes % (auto) 0.4 %; Lymphocytes # (auto) 1.94 K/uL (1.20-3.40); Lymphocytes % (auto) 16.2 %; Mean Corpuscular Hemoglobin 28.9 pg (25.0-34.0); Mean Corpuscular Hgb Conc 32.6 g/dL (32.0-36.0); Mean Corpuscular Volume 88.6 fL (80.0-100.0); Mean Platelet Volume 12.7 fL (9.4-12.4); Monocytes # (auto) 0.81 K/uL (0.11-0.59); Monocytes % (auto) 6.8 %; Neutrophils # (auto) 9.15 K/uL (1.40-6.50); Neutrophils % (auto) 76.3 %; Platelet Count 190 K/uL (130-400); RDW Coefficient of Variation 16.1 % (11.5-14.5); RDW Standard Deviation 52.6 fL (36.4-46.3); Red Blood Count 3.67 M/uL (4.20-5.40); White Blood Count 11.98 K/ul (4.8-10.8)
[2023-09-26 07:27] LABS: BUN Creatinine Ratio 15.9 (10-20); Calcium 8.5 mg/dl (8.6-10.3); Creatinine Clr Calc Pharmacy 90.9 ml/min; Est GFR (African American) 104.6 ml/min; Est GFR (Non-African American) 90.2 ml/min; Potassium 3.8 mmol/L (3.5-5.1)
--- NOTE | 2023-09-26 09:00 | Orthopedic Progress Note ---
Date of Service September 26, 2023 Assessment & Plan (1) Sacroiliitis: Plan: Patient is status post revision sacroiliac joint fusion. We will initiate physical therapy occupational therapy today. She may be a candidate for rehab. Admission and Anticipated Discharge Date Admission Date: September 25, 2023 Subjective Patient's pain has improved. Physical Exam Physical Exam: On exam she is currently in bed. She is comfortable. Discussed when to светлана ting. Results & Data Vital Signs (Past 12 Hours) Vital Signs Temp Pulse Resp BP Pulse Ox O2 Del Method O2 Flow Rate 09/26/23 07:42 Nasal Cannula 2 09/26/23 07:36 36.9 C 60 18 100/58 L 97 Room Air 09/26/23 03:00 36.3 C L 60 16 116/67 99 Nasal Cannula 2 09/25/23 22:57 36.6 C 62 16 100/56 L 98 Nasal Cannula 2 Queries Orthopedic Spine Obesity: Yes
[2023-09-26] MEDS ORDERED: bisacodyL 10 MG SUPP PR PRN (09:38)
[2023-09-26] MEDS: bisacodyL 10 MG SUPP PR STA (09:47)
--- NOTE | 2023-09-26 10:06 | Hospitalist Progress Note ---
Date of Service September 26, 2023 Assessment & Plan (1) Intractable back pain: (2) H/O lumbosacral spine surgery: (3) Morbid obesity: (4) T2DM (type 2 diabetes mellitus): (5) Hypothyroidism: (6) HTN (hypertension): (7) HLD (hyperlipidemia): Plan: This is a 73yo F with a PMH of hypothyroidism, dyslipidemia, HTN, obesity, history of spinal surgeries who presents with intractable back pain. Intractable back pain Hx of multiple lumbosacral spine surgery S/p R SI joint fusion, POD # [address] Herr hx of SI joint fusion in past pain currently improved- exacerbated by PT, encourage routine pain meds along with bowel regimen - no bm x 4 days Requesting advanced diet - DM diet ordered pain/wound management per ortho encourage incentive spirometry continue IV hydration until adequate po intake T2DM: on pioglitazone, a1c 6.4 in may, insulin per pharmacy, appreciate their assistance HTN: chronic, stable, hold hctz perioperatively, resume as able Acute hyponatremia: Resolved Had received IVF, likely diuretic induced, HCTZ on hold HLD: chronic stable on colesevelam Hypothyroidism: Chronic, stable continue levothyroxine, TSH 6.4 but Free T4 1.34 DVT ppx: SCDS per primary FULL CODE PCP: Jadyn Johnson DO Dispo: admitted to medical, PT/OT recs, will likely require SNF vs rehab A total of 45 minutes was spent coordinating, documenting, and providing care for this patient excluding time spent in the performance of separately billed services. This included personally viewing all current laboratories and imaging studies, medication reconciliation, outpatient chart review, and discussion with specialists. Admission and Anticipated Discharge Date Admission Date: September 25, 2023 Supervising Physician Co-Signing Physician Notes I have seen and discussed the case with the collaborating advanced practitioner. I agree with the above PN. I have reviewed and confirmed the patients medical history, the findings on physical examination, and the patients diagnosis and treatment plan with Brooke SMITH and agree with the information documented. BP stable, low normal. Hyponatremia resolved. Consider d/c of HCTZ for BP control given risk for future hyponatremia I have reviewed the advanced practitioner's documentation, and I agree with, and take responsibility for the plan of care Subjective Pt seen and examined. Doing ok today. Reports no BM since past Saturday, 4 days ago. Reports numbness and tingling in lower back is improved s/p surgery. Will order suppository today. Was working with PT just now and requesting pain meds. Review of Systems Review of Systems: Constitutional: No fever, sweats or chills Eyes: No diplopia, no worsening or blurred vision ENT: normal hearing, no trouble swallowing Respiratory: No cough, sputum, dyspnea at rest or on exertion Cardiovascular: No chest pain, tightness or palpitations Abdomen: No pain, nausea, vomiting, diarrhea , + constipation Musculoskeletal: No joint pain, calf pain, swelling Back: As per HPI, soreness throughout lower back, decreased numbness and tingling Neurologic: No weakness, numbness/tingling, or balance problems Psychiatric: No anxiety or depression Skin: No rash or itch Physical Exam Physical Exam: General: awake, alert, no apparent distress, + obese white female Head: Normocephalic, atraumatic ENT: PERRL, EOMI, no pharyngeal exudate, mucous membranes moist Chest: Clear to auscultation, on room air, no adventitious breath sounds Cardiac: Regular rate and rhythm, no murmur, no JVD, normal peripheral pulses, good capillary refill Abdominal: NABS x 4 quadrants, soft, nondistended, nontender to palpation, no rebound or guarding Back: dressing C/D/I, MORGAN drain with serosanginous outs. : mahoney catheter in place draining dark yellow urine Extremities: Normal inspection, no peripheral edema or erythema, calfs nontender to palpation Psych: Normal mood and affect Neuro: AAO x 3, strength intact bilaterally and rated 5/5, no motor deficits, speech is clear, no peripheral sensory deficits Results & Data Results & Data Vital Signs (Past 12 Hours) Vital Signs Temp Pulse Resp BP Pulse Ox O2 Del Method O2 Flow Rate 09/26/23 07:42 Nasal Cannula 2 09/26/23 07:36 36.9 C 60 18 100/58 L 97 Room Air 09/26/23 03:00 36.3 C L 60 16 116/67 99 Nasal Cannula 2 09/25/23 22:57 36.6 C 62 16 100/56 L 98 Nasal Cannula 2 Laboratory Results 09/26/23 09/26/23 09/25/23 07:44 05:48 20:31 WBC 11.98 H RBC 3.67 L Hgb 10.6 L Hct 32.5 L MCV 88.6 MCH 28.9 MCHC 32.6 RDW Std Deviation 52.6 H RDW Coeff of Carine 16.1 H Plt Count 190 MPV 12.7 H Immature Gran % (Auto) 0.4 Neut % (Auto) 76.3 Lymph % (Auto) 16.2 Robeson % (Auto) 6.8 Eos % (Auto) 0.1 Baso % (Auto) 0.2 Neut # (Auto) 9.15 H Lymph # (Auto) 1.94 Robeson # (Auto) 0.81 H Eos # (Auto) 0.01 Baso # (Auto) 0.02 Immature Gran # (Auto) 0.05 Sodium 136 Potassium 3.8 Chloride 98 Carbon Dioxide 32 Anion Gap 6 BUN 10 Creatinine 0.63 Est Cr Clr Drug Dosing 90.9 Est GFR ( Amer) 104.6 Est GFR (Non-Af Amer) 90.2 BUN/Creatinine Ratio 15.9 Glucose 105 H POC Glucose 129 H 179 H Calcium 8.5 L 09/25/23 09/25/23 09/25/23 16:29 13:26 12:20 WBC RBC Hgb Hct MCV MCH MCHC RDW Std Deviation RDW Coeff of Carine Plt Count MPV Immature Gran % (Auto) Neut % (Auto) Lymph % (Auto) Robeson % (Auto) Eos % (Auto) Baso % (Auto) Neut # (Auto) Lymph # (Auto) Robeson # (Auto) Eos # (Auto) Baso # (Auto) Immature Gran # (Auto) Sodium Potassium Chloride Carbon Dioxide Anion Gap BUN Creatinine Est Cr Clr Drug Dosing Est GFR ( Amer) Est GFR (Non-Af Amer) BUN/Creatinine Ratio Glucose POC Glucose 185 H 149 H 134 H Calcium
[2023-09-26] MEDS: KETOROLAC TROMETHAMINE 15 MG/ML VIAL IV PRN (22:13)
[2023-09-26] MEDS: LORazepam 0.5 MG TAB PO PRN (22:15)
--- NOTE | 2023-09-27 10:41 | Ultrasound Report ---
RIGHT LOWER EXTREMITY VENOUS DOPPLER HISTORY: Calf pain, r.o dvt COMPARISON STUDY: None. FINDINGS: There is normal compressibility, flow, and augmentation within the right lower extremity de ep venous system. There are superficial varicosities seen within the right calf which correspond to t he patient's area of pain. These are patent. IMPRESSION: No DVT within the right lower extremity ACT 112: Negative or not required by law. Electronically signed by: Lele Pemberton M.D. 09/27/2023 10:39 AM
[2023-09-27] MEDS: LIDOCAINE 5% 1 PATCH TD STA (10:43)
[2023-09-27] MEDS: ACETAMINOPHEN 500 MG TAB PO SCH (10:43)
--- NOTE | 2023-09-27 12:22 | Hospitalist Progress Note ---
Date of Service September 27, 2023 Assessment & Plan (1) Intractable back pain: (2) H/O lumbosacral spine surgery: (3) Morbid obesity: (4) T2DM (type 2 diabetes mellitus): (5) Hypothyroidism: (6) HTN (hypertension): (7) HLD (hyperlipidemia): Plan: This is a 73yo F with a PMH of hypothyroidism, dyslipidemia, HTN, obesity, history of spinal surgeries who presents with intractable back pain. Intractable back pain Hx of multiple lumbosacral spine surgery S/p R SI joint fusion, POD # [address] Herr hx of SI joint fusion in past 09/26 pain currently worsened- - DVT RLE completed due to calf pain -- FINDINGS: There is normal compressibility, flow, and augmentation within the right lower extremity deep venous system. There are superficial varicosities seen within the right calf which correspond to the patient's area of pain. These are patent. - Can use warm compress to calf muscle - Will encourage toradol dosing, can use oxycodone 10 mg instead of 5 per ortho, she is somewhat sleepy and has gotten several doses of dilaudid today without significant improvement. Need to use the longer acting oxy vs dilaudid iv today. - BM on 09/25 was small, BM 4d prior. Encourage bowel regimen. prns ordered per ortho. encourage incentive spirometry Off IVFs T2DM: on pioglitazone, a1c 6.4 in may, insulin per pharmacy, appreciate their assistance HTN: chronic, stable, hold hctz perioperatively, resume as able - still holding, BP hasn't increased so would HOLD on discharge. Acute hyponatremia: Resolved Had received IVF, likely diuretic induced, HCTZ on hold - HOLD on discharge. HLD: chronic stable on colesevelam Hypothyroidism: Chronic, stable continue levothyroxine, TSH 6.4 but Free T4 1.34 DVT ppx: SCDS per primary FULL CODE PCP: Jadyn Johnson DO Dispo: admitted to medical, PT/OT recs, will likely require SNF vs rehab A total of 45 minutes was spent coordinating, documenting, and providing care for this patient excluding time spent in the performance of separately billed services. This included personally viewing all current laboratories and imaging studies, medication reconciliation, outpatient chart review, and discussion with specialists. Admission and Anticipated Discharge Date Admission Date: September 25, 2023 Supervising Physician Co-Signing Physician Notes I have seen and discussed the case with the collaborating advanced practitioner. I agree with the above PN. I have reviewed and confirmed the patients medical history, the findings on physical examination, and the patients diagnosis and treatment plan with Brooke SMITH and agree with the information documented. BP stable, low normal. Hyponatremia resolved. Pain in lower extremity with varicosities--doppler ordered, negative DVT. Pain mgmt as above I have reviewed the advanced practitioner's documentation, and I agree with, and take responsibility for the plan of care Subjective Patient has several complaints today, states that her lower back pain on the right is significantly worse, notes that she also has right-sided calf pain which is rated as a 10/10 and started last evening. She denies any numbness or tingling down into her leg. Patient denies any fever, chills or sweats. Mahoney catheter is in place with foul-smelling urine and odor, instructed nursing to remove Mahoney and send UA and culture. Patient is also requesting multiple doses of IV Dilaudid, states that she has not been taking 1000 mg every 8 Tylenol, and not using oxycodone. Pt is c/o nausea. 10 point ROS reviewed and otherwise negative. Physical Exam Physical Exam: General: awake, alert, + mild distress, + appears sleepy, + obese white female Head: Normocephalic, atraumatic ENT: PERRL, EOMI, no pharyngeal exudate, mucous membranes moist Chest: Clear to auscultation, on room air, no adventitious breath sounds Cardiac: Regular rate and rhythm, no murmur, no JVD, normal peripheral pulses, good capillary refill Abdominal: NABS x 4 quadrants, soft, nondistended, nontender to palpation, no rebound or guarding Back: dressing is saturated, needs replaced. MORGAN drain with serosanguineous outs. : mahoney catheter in place draining yellow urine, foul smelling urine. Extremities: R calf pain with palpation, no obvious edema or erythema, left calfs nontender to palpation Psych: Normal mood and affect Neuro: AAO x 3, strength intact bilaterally and rated 5/5, no motor deficits, sp eech is clear, no peripheral sensory deficits Results & Data Results & Data Vital Signs (Past 12 Hours) Vital Signs Temp Pulse Resp BP Pulse Ox O2 Del Method 08/02/24 08:06 36.8 C 82 16 124/70 95 Room Air Laboratory Results 09/27/23 09/27/23 09/26/23 11:37 08:04 20:38 POC Glucose 127 H 112 H 113 H 09/26/23 16:30 POC Glucose 159 H
[2023-09-27] MEDS: PROCHLORPERAZINE 10 MG in SYRINGE 8 ML IV ONE (13:04)
[2023-09-27] MEDS: dexAMETHasone 8 MG in SYRINGE 0 ML IV STA (13:58)
[2023-09-27 18:05] LABS: Appearance Urine Cloudy (Clear); Bacteria Urine Automated 1+ (None Seen); Bilirubin Urine Negative (Negative); Blood Urine 3+ (Negative); Cast Urine Automated 0-2 /lpf (0-2); Color Urine Yellow; Glucose Urine UA Negative (Negative); Ketones Urine Trace (Negative); Leukocyte Esterase Urine 3+ (Negative); Nitrite Urine Negative (Negative); Protein Urine Negative (Negative); RBC Urine Automated >20 /hpf (0-2); Specific Gravity Urine 1.008 (1.000-1.030); Urobilinogen Urine Negative (Negative); WBC Urine Automated 21-50 /hpf (0-5); pH Urine 6.5 (4.5-7.5)
[2023-09-27 21:31] VITALS: O2SAT 96
[2023-09-28 06:42] LABS: Hemoglobin 10.6 g/dl (12.0-16.0); Mean Corpuscular Hemoglobin 28.6 pg (25.0-34.0); Mean Corpuscular Hgb Conc 32.1 g/dL (32.0-36.0); Mean Corpuscular Volume 88.9 fL (80.0-100.0); Mean Platelet Volume 12.4 fL (9.4-12.4); Platelet Count 201 K/uL (130-400); RDW Standard Deviation 53.1 fL (36.4-46.3); Red Blood Count 3.71 M/uL (4.20-5.40); White Blood Count 8.36 K/ul (4.8-10.8)
[2023-09-28 06:59] LABS: BUN Creatinine Ratio 19.7 (10-20); Calcium 8.7 mg/dl (8.6-10.3); Creatinine Clr Calc Pharmacy 93.9 ml/min; Est GFR (African American) 105.7 ml/min; Est GFR (Non-African American) 91.2 ml/min; Potassium 4.5 mmol/L (3.5-5.1)
[2023-09-28 07:39] VITALS: BP 103/62; PULSE 63; RESP 16; TEMP 98.2
[2023-09-28] MEDS: dexAMETHasone 8 MG in SYRINGE 0 ML IV SCH (09:17)
[2023-09-28] MEDS: LANTUS PER UNIT CHARGE SC SCH (09:18)
[2023-09-28] MEDS: DICLOFENAC SOD 1% GEL 100 GM TUBE EXT SCH (09:27)
--- NOTE | 2023-09-28 10:48 | Orthopedic Progress Note ---
Date of Service September 28, 2023 Assessment & Plan (1) Sacroiliitis: Plan: Patient is status post right SI joint fusion. She is stable for transfer to rehab once a bed is available. Admission and Anticipated Discharge Date Admission Date: September 25, 2023 Subjective Patient's pain is still an issue with prolonged sitting but she feels it is improving. She denies any radiculopathy. Physical Exam Physical Exam: On exam she is currently in bed. She is good strength testing lower extremities. Results & Data Vital Signs (Past 12 Hours) Vital Signs Temp Pulse Resp BP Pulse Ox O2 Del Method 09/28/23 07:38 36.8 C 63 16 103/62 96 Room Air Queries Orthopedic Spine Obesity: Yes
--- NOTE | 2023-09-28 11:07 | Hospitalist Progress Note ---
Date of Service September 28, 2023 Assessment & Plan (1) Intractable back pain: (2) H/O lumbosacral spine surgery: (3) Morbid obesity: (4) T2DM (type 2 diabetes mellitus): (5) Hypothyroidism: (6) HTN (hypertension): (7) HLD (hyperlipidemia): Plan: Ms. Tafoya carlos 73yo F with a PMH of hypothyroidism, dyslipidemia, HTN, obesity, history of spinal surgeries who presents with intractable back pain. #Sacroilitis s/p joint fusion POD 3 #Intractable back pain Hx of multiple lumbosacral spine surgery S/p R SI joint fusion, 09/[address] Herr hx of SI joint fusion in past Management per primary bowel regimen per primary Pending placement to [facility] for rehab IS #RLE pain likely 2/2 varicosities - DVT RLE completed due to calf pain: negative DVT - Can use warm compress to calf muscle -Pain management #Left shoulder pain Voltaren and heat compress #Abnormal UA no symptoms, numerous epi cells, will defer treatment #T2DM: on pioglitazone, a1c 6.4 in may, insulin per pharmacy, appreciate their assistance #HTN: chronic, stable, plan to discontinue HCTZ #Acute hyponatremia: Resolved Had received IVF, likely diuretic induced, HCTZ on hold - HOLD on discharge. #HLD: chronic stable on colesevelam #Hypothyroidism: Chronic, stable continue levothyroxine, TSH 6.4 but Free T4 1.34 DVT ppx: SCDS per primary FULL CODE PCP: Jadyn Johnson DO Dispo: admitted to medical, PT/OT recs: [facility] A total of 45 minutes was spent coordinating, documenting, and providing care for this patient excluding time spent in the performance of separately billed services. This included personally viewing all current laboratories and imaging studies, medication reconciliation, outpatient chart review, and discussion with specialists. Admission and Anticipated Discharge Date Admission Date: September 25, 2023 Subjective NAXenaO Reports feeling much better with mahoney removed and that her leg is no longer painful She reports a sore left shoulder from leaning to that side more given her surgery, agreeable to voltaren and heat wrap Physical Exam Constitutional: WD/WN, vitals as above Respiratory: normal respiratory effort, lungs clear to auscultation Cardiovascular: RRR, no murmur, no edema Gastrointestinal (Abdomen): normal bowel sounds, soft, nontender, no hepatosplenomegaly Musculoskeletal: no over edema in legs, no tenderness noted on exam Results & Data Results & Data Vital Signs (Past 12 Hours) Vital Signs Temp Pulse Resp BP Pulse Ox O2 Del Method 09/28/23 07:38 36.8 C 63 16 103/62 96 Room Air Laboratory Results Short CBC 09/28/23 Range/Units 06:07 WBC 8.36 (4.8-10.8) K/ul Hgb 10.6 L (12.0-16.0) g/dl Hct 33.0 L (37.0-47.0) % Plt Count 201 (130-400) K/uL BMP 09/28/23 06:07 Sodium 135 L Potassium 4.5 Chloride 99 Carbon Dioxide 30 BUN 12 Creatinine 0.61 Glucose 173 H Calcium 8.7 Urine 09/27/23 Range/Units 17:37 Urine Color Yellow Urine Appearance Cloudy A (Clear) Urine pH 6.5 (4.5-7.5) Ur Specific Brule 1.008 (1.000-1.030) Urine Protein Negative (Negative) Urine Glucose (UA) Negative (Negative) Medications Administered Home Medications Medication Instructions Recorded Confirmed Last Taken colesevelam 625 mg tablet (WelChol) 1,250 mg PO BID 09/11/21 09/24/23 09/24/23 08:00 hydrochlorothiazide 25 mg tablet 25 mg PO QAM 09/11/21 09/24/23 09/24/23 pioglitazone 15 mg tablet 15 mg PO QAM 09/11/21 09/24/23 09/24/23 baclofen 10 mg tablet 10 mg PO TID 02/08/23 09/24/23 09/24/23 08:00 cholecalciferol (vitamin D3) 50 50 mcg PO DAILY 09/22/23 09/24/23 09/24/23 mcg (2,000 unit) tablet (Vitamin D3) colchicine 0.6 mg tablet (Colcrys) 0.6 mg PO BID PRN Gout Flare 09/22/23 4 Unknown levothyroxine 200 mcg tablet 200 mcg PO QAM 09/22/23 09/24/23 09/24/23 hydrocodone 5 mg-acetaminophen 325 1 tab PO Q6H PRN pain #14 tabs 09/23/23 09/24/23 Unknown mg tablet naproxen 500 mg tablet (Naprosyn) 500 mg PO BID 09/24/23 09/24/23 09/24/23 08:00 ondansetron 4 mg disintegrating 4 - 8 mg translingual DIRECTED 09/24/23 09/24/23 Unknown tablet PRN NAUSEA/VOMITING prednisone 10 mg tablet 10 mg PO UD 09/24/23 09/24/23 Unknown oxycodone 5 mg tablet 5 mg PO Q6H PRN pain #30 tabs 09/26/23 Unknown tramadol 50 mg tablet 50 mg PO Q6H PRN pain, moderate 09/26/23 Unknown #30 tabs Active Medications Generic Name Dose Route Start Last Admin Trade Name Freq PRN Reason Stop Dose Admin Acetaminophen 1,000 mg 09/27/23 09:15 09/28/23 09:16 Acetaminophen 500 Mg Tab PO 10/27/23 09:14 1,000 mg Q8H FERNY Administration Baclofen 10 mg 09/24/23 21:00 09/28/23 09:16 Baclofen 10 Mg Tab PO 10/24/23 20:59 10 mg TID FERNY Administration Colesevelam HCl 2 each 09/25/23 08:00 09/28/23 09:16 Colesevelam Hcl PO 10/25/23 07:59 2 each BIDM FERNY Administration Diclofenac Sodium 2 gm 09/28/23 09:00 09/28/23 09:27 Diclofenac Sod 1% Gel 100 Gm Tube EXT 10/28/23 08:59 2 gm Q8H FERNY Administration Protocol Hydromorphone HCl 0.5 mg 09/24/23 16:39 09/27/23 08:26 Hydromorphone Inj 0.5 Mg/0.5 Ml Syr IV 10/08/23 16:38 0.5 mg Q3H PRN Administration MOD pain (scale 4-6) & Pre PT Dexamethasone 8 mg/ Syringe 2 mls @ 1 mls/min 09/28/23 09:00 09/28/23 09:17 IV 10/28/23 08:59 1 mls/min DAILY FERNY Administration Insulin Aspart 0 units 09/25/23 16:30 09/28/23 09:17 Insulin Aspart Per Unit Charge SC 10/25/23 16:29 5 units ACHS FERNY Administration Insulin Glargine 10 units 09/28/23 09:00 09/28/23 09:18 Lantus Per Unit Charge SC 10/28/23 08:59 10 units DAILY FERNY Administration Ketorolac Tromethamine 15 mg 09/25/23 13:14 09/27/23 18:42 Ketorolac Tromethamine 15 Mg/Ml Vial IV 15 mg Q6H PRN Administration Pain Levothyroxine Sodium 200 mcg 09/25/23 06:30 09/28/23 05:32 Levothyroxine Sodium 200 Mcg Tablet PO 10/25/23 06:29 200 mcg DAILYBB FERNY Administration Lorazepam 0.5 mg 09/25/23 13:14 09/26/23 22:15 Lorazepam 0.5 Mg Tab PO 10/25/23 13:13 0.5 mg Q8H PRN Administration Sedation/Anxiety Ondansetron HCl 4 mg 09/24/23 16:39 09/25/23 20:56 Ondansetron Inj 2 Mg/Ml 2 Ml Vial IV 10/24/23 16:38 4 mg Q6H PRN Administration Nausea &/or Vomiting Ondansetron HCl 4 mg 09/24/23 16:39 09/27/23 08:33 Ondansetron 4 Mg Od Tab PO 10/24/23 16:38 4 mg Q6H PRN Administration Nausea Oxycodone HCl 5 - 10 mg 09/24/23 16:39 09/28/23 10:24 Oxycodone Hcl Ir 5 Mg Tab (Immediate Release) PO 10/08/23 16:38 10 mg Q4H PRN Administration mod to severe pain Polyethylene Glycol 17 gm 09/26/23 06:00 09/28/23 05:08 Polyethylene (Miralax) 17 Gm Pack PO 10/26/23 05:59 17 gm Q6 FERNY Administration Senna/Docusate Sodium 2 tab 09/25/23 21:00 09/27/23 20:34 Docusate Sodium/Senna 50/8.6mg Tab PO 10/25/23 20:59 2 tab HS FERNY Administration
--- NOTE | 2023-10-02 11:26 | Discharge Summary ---
Date of Service October 02, 2023 Admission HPI Per Admitting Provider This is a 73-year-old female well-known to me the presents with marked decline in status with worsening right sacroiliitis. Single injection was performed several weeks ago provided temporary significant relief but is worn off and now she is unable to ambulate without severe pain. Subsequently she is here for surgical intervention. Admission Exam (Per Admitting) Constitutional WD/WN, vitals as above Eyes normal visual cortez by confrontation ENMT external ear and nose normal, oropharynx normal Neck normal visual inspection Respiratory normal respiratory effort Cardiovascular Extremities: normal capillary refill Gastrointestinal (Abdomen) Inspection/Auscultation: abdomen normal to inspection Musculoskeletal Spine: + sciatic notch tenderness and + sacroiliac joint abnormality Extremities: extremities normal to inspection and strength 5/5 throughout Skin no rashes, warm and dry Neurologic normal touch/pain/proprioception and moves all extremities Psychiatric A+Ox3, euthymic affect Discharge Data Consultations 09/24/23 16:43 Consult Anesthesiology Routine Consult Internal Medicine Routine Procedures Performed Operation Date: 09/25/23 10:05 Actual Procedures p Right Sacroiliac Joint Fusion(Right) - Timothy Herr DO Hospital Course (1) Sacroiliitis: pt on 09/24 underwent removal right iliac bolt, revision SI joint fusion. TTWB status with physical therapy. Lab values stable during hospital stay. Pain improved. Discharged to rehab on 09/27 Discharge Instructions ACTIVITY RECOMMENDATIONS: SELF CARE INSTRUCTIONS AFTER THORACIC/LUMBAR FUSIONS 1. You may walk to your tolerance. It is good exercise for your legs and back. Expect some back and intermittent leg aches and pains. 2. You may perform "counter-top" level activities (make a sandwich, praful with a project, etc.). 3. No bending or lifting of more than 10 pounds or back twisting of any nature (roll like a log when turning in bed). 4. You may ride in a car for 20-30 minutes at a time. No driving until after your first visit with your doctor. 5. Frequent changes of position and restricting sitting to 30 minutes at a time will help limit the amount of back spasms and stiffness you may experience. 6. You may discontinue the use of ambulatory aids (cane, crutches, etc.) once your strength and confidence allow. 7. You may four slide machine setter the shower and let water strike your incision when you arrive home at least once daily. Do not take a tub bath, sit in a hot tub or go into a swimming pool until after your first recheck in the office. SPECIAL CARE INSTRUCTIONS: VERY IMPORTANT TO READ AND REVIEW A. Your surgical incision has been closed with a cosmetic suture under the skin that will dissolve in about 6 weeks. In 14 days, you can use a pair of clean scissors and cut the suture that is left outside of the skin at the ends of your incision. 1. The small skin tapes can be removed 7 days after surgery if they have not fallen off by that point. 2. You may keep the wound open to air as much as possible to promote healing after post-op day number 5 unless told otherwise by your doctor. 3. If you think the wound looks like it is becoming infected (redness or worsening drainage) and/or you are experiencing fever, chill or worsening back pain and muscle spasms, contact the office so that we may evaluate you as soon as possible. B. Complications are uncommon, but please contact us if you have any signs or symptoms of: 1. wound infection (fever higher than 102.5 degrees F, redness, separation of wound, drainage, or increasing pain from the incision) 2. blood clots in legs (pain, swelling, redness and warmth in legs) 3. urinary tract infection (fever higher than 102.5 degrees F, burning upon urination or increased frequency of urination) 4. nerve problems (inability to walk on your toes or heels, numbness, loss of bowel or bladder control) 5. any other symptoms that concern you C. Please call the office at if you have any concerns or questions about your operation or recovery. D. No smoking! Smoking drastically decreases the chance of a solid fusion. E. Do not take any anti-inflammatory medications (Indocin, Advil, Motrin, Aspirin, Naprosyn, etc.) as these may inhibit the chance of a solid fusion. Tylenol is okay to take for pain. MANAGING PAIN AFTER SPINAL SURGERY 1. Narcotic medication is intended for short-term use and will be provided for surgical pain. Surgical pain usually lasts for a period of 4-6 weeks. Narcotic medication includes Percocet, Vicodin, Darvocet, Tylenol #3 or Lortab. 2. Longer-term pain is more appropriately treated with non-narcotic medication such as Tylenol ES. 3. Muscle spasm is not appropriately treated with narcotics. Muscle relaxers such as Soma, Flexeril or Skelaxin can be used along with Tylenol ES. 4. Remember that we all live with some "aches and pains". This is not unusual or uncommon after an injury or as we get older. a. Back pain is expected and may include muscle spasms for 4 to 6 weeks after surgery. The pain should gradually improve. If the pain worsens for no apparent reason, please contact the office. b. Intermittent leg pain may also be experienced and should not be concerned about unless it worsens for no apparent reason. If so, please contact the office. 5. We will provide appropriate medication within the normal guidelines of their prescribed use. We will also be very cautious and aware of potential abuse and extended duration of patients' medication needs. a. Pain medications are for your comfort and to assist with sleep and rest so that the tissue can heal. They are not provided in order to return to normal activity and should not be used through the day. To do so or worsening pain at night can result from ongoing tissue damage and development of tolerance to the prescribed medicine. 6. Please allow 2-3 days to process refills. Prescriptions will not be mailed but must be picked up at the office. FOLLOW UP VISIT: Keep your scheduled follow-up appointment. Any questions, please call the office at .
== END 2023-09-28 16:00 | DRG 460 ==
LOC: 3N 16:24 → ED 16:24 → 3N 18:42

== ENCOUNTER 2023-10-09 12:31 | Inpatient (IN) ==
--- NOTE | 2023-10-09 12:44 | Emergency Department Note ---
Impression & Plan Intractable back pain ED Provider Note NAME: KIA MAC AGE: 73 SEX: F : 1950 ARRIVES VIA: Walk-In INFORMANT: Patient, ED PROVIDER(S): Jag Davila MD CHIEF COMPLAINT: Back pain MEDICAL DECISION MAKING: Patient presents due to concern for right-sided back pain in the setting of recent sacroiliac revision completed by Dr. Herr. IV was established and blood work was obtained. Patient was ordered IV Tylenol p.o. Oxy as the patient states that oxycodone seemed to help. Blood work shows a normal white count hemoglobin and platelet count. The patient's kidney function is unremarkable with normal electrolytes. Patient's SI joint x-ray shows possible periprosthetic lucency of the bilateral S1 pedicle screws. No acute fractures. I did speak with Dr. Herr and the patient was admitted to his service. Discussion w/ other healthcare providers: Dr. Herr orthopedic spine Prior /Outside records reviewed: I reviewed part of a discharge summary from October 02, [address] Herr. Patient reportedly had worsening right sacroiliitis patient did have an injection performed but was unable to ambulate without pain. The patient subsequently did undergo right sacroiliac joint fusion. Patient underwent removal of right iliac bolt revision of SI joint fusion. Patient to be touchdown weightbearing status with physical therapy. Patient was discharged to rehab on September 27. Differential diagnosis: Musculoskeletal, disc herniation, fracture, sprain, strain, cord compression, discitis, sciatica, cauda equina, infection, renal colic, as well as other pathologies were considered. Diagnostics, as interpreted by me: ECG: None Cardiac monitoring: An order was placed for continuous cardiac monitoring. The monitor shows a rate of 78 with sinus rhythm. Patient was placed on pulse oximetry Medical decision rules: None Imaging studies: I informally interpreted the patient's SI x-ray without obvious fracture with formal report to follow. HPI: Patient presents due to concern for intractable right-sided back pain. The patient did have a recent SI joint revision completed by Dr. Herr and was [facility] 27. The patient has been taking MS Contin and Nucynta but without significant improvement in her symptoms. The patient's pain is gotten progressively worse over the last week. Patient was told that she likely has issues with constipation and that the patient may be discharged potentially this evening but given the patient's worsening pain she presented here after discussing with the patient's surgical supply assistant Dr. Herr's office. Patient denies any chest pains or shortness of breath no fevers. The patient did have her initial surgical dressing removed and does not report any drainage from the area. PAST MEDICAL HISTORY: See Below PAST SURGICAL HISTORY: See Below SOCIAL HISTORY: See Below HOME MEDICATIONS: See Below ALLERGIES: See Below VITALS: See Below PHYSICAL EXAMINATION: GENERAL: NAD, non-toxic. Wearing glasses. EYE EXAM: Normal conjunctiva. PERRL, no anisocoria and EOM's grossly intact w/o pain. OROPHARYNX: Dry mucus membranes, grossly normal dentition. NECK: Trachea midline, no stridor. Supple, no nuchal rigidity, no adenopathy, non-tender. No signs of meningismus. FROM of the neck with good chin to chest and neck extension. LUNGS: Clear to auscultation. Normal chest wall mechanics. HEART: NSR, no MRG. ABDOMEN: Abdomen soft, non-tender, no masses, no rebound or guarding. BACK: No CVA TTP. Well-healed incisional site over the right SI joint area without fluctuance or drainage no redness. Lidocaine patch noted adjacent more laterally. SKIN: No rashes and no bruising. UPPER EXTREMITIES: Upper extremities are grossly normal. LOWER EXTREMITIES: Grossly normal, no edema. NEURO EXAM: A&O x3, cranial nerves II-XII grossly intact, normal speech, moves all 4 extremities. Past Med/Surg History Problem List (Updated 10/09/23 @ 17:38 by Jag Davila MD) Sacroiliitis Intractable back pain (Acute) Neurogenic claudication due to lumbar spinal stenosis Morbid obesity Neuroforaminal stenosis of lumbar spine (Acute) Hypothyroidism HLD (hyperlipidemia) HTN (hypertension) T2DM (type 2 diabetes mellitus) Medical History 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 Gout Muscle spasm severe History of COVID-19 03/2022- mild symptoms Lumbar disc herniation with radiculopathy Surgical History Hx of bilateral cataract extraction History of lumbar spinal fusion 01/21/2023 [facility] L2-L4 decompression/fusion (09/14/21): Grade view 1, Garcia#2, ETT 7.0 at [facility] Nausea and vomiting after administration of anesthetic agent states scopolamine patch worked very well after last procedure Hx of dilation and curettage Hx of arthroscopy of left knee meniscus injury Hx of cholecystectomy Hx of tonsillectomy History of x2 History of total knee replacement Left 2012, Right 2006 Family History Mother Sclerosing cholangitis Father Alcohol use disorder Social History Smoking Status: Never smoker Second Hand Exposure: No; Do You Dip or Chew Tobacco: No; Hx Alcohol Use: No Hx Substance Use: No Preferred Language: Tunisian Communication Ability: Effective Panel Instrument Repairer Required: No Beliefs That Will Affect Care: None marital status: Current Living Situation: Spouse Current Living Situation Comment: Home with current occupational status: retired Other Information That Helps Us Care for You: No Feels Safe at Home: Yes Safety Concerns: Feels Safe At This Time Assistive Devices: Glasses and Walker Allergies Allergies Allergy/AdvReac Type Severity Reaction Status Date / Time Sulfa (Sulfonamide Allergy Intermediate Rash Verified 09/24/23 16:58 Antibiotics) gabapentin AdvReac Severe Nightmare Verified 09/24/23 16:58 Home Meds Home Medications Medication Instructions Recorded Confirmed colesevelam 625 mg tablet (WelChol) 1,250 mg PO BIDM 09/11/21 10/09/23 pioglitazone 15 mg tablet 15 mg PO QAM 09/11/21 10/09/23 baclofen 10 mg tablet 10 mg PO Q6 02/08/23 10/09/23 cholecalciferol (vitamin D3) 50 50 mcg PO DAILY 09/22/23 10/09/23 mcg (2,000 unit) tablet (Vitamin D3) colchicine 0.6 mg tablet (Colcrys) 0.6 mg PO BID PRN Gout Flare 09/22/23 10/09/23 levothyroxine 200 mcg tablet 200 mcg PO QAM 09/22/23 10/09/23 ondansetron 4 mg disintegrating 4 mg translingual Q6 PRN 09/24/23 10/09/23 tablet NAUSEA/VOMITING acetaminophen 325 mg tablet 325 mg PO Q6 10/09/23 10/09/23 acetaminophen 500 mg tablet 500 mg PO Q6H 10/09/23 10/09/23 dantrolene 25 mg capsule 25 mg PO TID 10/09/23 10/09/23 docusate sodium 100 mg capsule 100 mg PO BID 10/09/23 10/09/23 ibuprofen 200 mg tablet 200 mg PO Q6H 10/09/23 10/09/23 lidocaine 4 % topical patch 1 patch topical DAILY 10/09/23 10/09/23 morphine 15 mg tablet,extended 30 mg PO Q12H 10/09/23 10/09/23 release (MS Contin) polyethylene glycol 3350 17 17 g PO BID 10/09/23 10/09/23 gram/dose oral powder (Miralax) tapentadol 50 mg tablet (Nucynta) 50 mg PO .6AM BEFORE THERAPY 10/09/23 10/09/23 tapentadol 50 mg tablet (Nucynta) 50 mg PO .Q 3 HOURS PRN PAIN 4-10 10/09/23 10/09/23 Previous Rx's Medication Instructions Recorded tramadol 50 mg tablet 50 mg PO Q6H PRN pain, moderate 09/26/23 #30 tabs Results & Data (ED) Vital Signs Vital Signs - 24 hr 10/09/23 12:35 10/09/23 13:47 10/09/23 14:01 Temperature 36.9 C Temperature Source Temporal Artery Scan Pulse Rate 86 79 Pulse Rate [Apical] 73 Respiratory Rate 18 14 Respiratory Effort / Characteristics Non-Labored Spontaneous Respiratory Depth Normal Normal Blood Pressure 123/81 Blood Pressure [Right Arm] 147/59 H Blood Pressure Mean 95 Blood Pressure Mean [Right Arm] 88 Blood Pressure Position Sitting Pulse Oximetry 94 95 Oxygen Delivery Method Room Air Nasal Cannula Oxygen Flow Rate 2 Sepsis Recent Fever Within 48 Hours No Sepsis New/Unexplained Change in Mental Status No Sepsis Action Taken by Nursing No Action Required Oxygen Flow Rate - Titration Pulse Oximetry Post Tiitration 10/09/23 14:03 Temperature Temperature Source Pulse Rate Pulse Rate [Apical] Respiratory Rate Respiratory Effort / Characteristics Respiratory Depth Blood Pressure Blood Pressure [Right Arm] Blood Pressure Mean Blood Pressure Mean [Right Arm] Blood Pressure Position Pulse Oximetry 88 L Oxygen Delivery Method Room Air Oxygen Flow Rate 0 Sepsis Recent Fever Within 48 Hours Sepsis New/Unexplained Change in Mental Status Sepsis Action Taken by Nursing Oxygen Flow Rate - Titration 2 Pulse Oximetry Post Tiitration 96 Home Medications Current Medication List: was personally reviewed by me Laboratory Data Attestation: I reviewed the patient's lab results. 10/09/23 13:37 10/09/23 13:37 Lab Results 10/09/23 Range/Units 13:37 WBC 9.50 (4.8-10.8) K/ul RBC 4.43 (4.20-5.40) M/uL Hgb 12.7 (12.0-16.0) g/dl Hct 40.5 (37.0-47.0) % MCV 91.4 (80.0-100.0) fL MCH 28.7 (25.0-34.0) pg MCHC 31.4 L (32.0-36.0) g/dL RDW Std Deviation 57.0 H (36.4-46.3) fL RDW Coeff of Carine 17.0 H (11.5-14.5) % Plt Count 388 (130-400) K/uL MPV 11.7 (9.4-12.4) fL Immature Gran % (Auto) 0.3 % Neut % (Auto) 74.6 % Lymph % (Auto) 15.1 % [place] % (Auto) 8.9 % Eos % (Auto) 0.9 % Baso % (Auto) 0.2 % Neut # (Auto) 7.08 H (1.40-6.50) K/uL Lymph # (Auto) 1.43 (1.20-3.40) K/uL [place] # (Auto) 0.85 H (0.11-0.59) K/uL Eos # (Auto) 0.09 (0.00-0.50) K/uL Baso # (Auto) 0.02 (0.00-0.20) K/uL Immature Gran # (Auto) 0.03 (0.01-0.20) K/uL Sodium 137 (136-145) mmol/L Potassium 4.0 (3.5-5.1) mmol/L Chloride 101 (98-107) mmol/L Carbon Dioxide 28 (21-32) mmol/L Anion Gap 8 (3-11) BUN 9 (6-23) mg/dl Creatinine 0.53 L (0.6-1.2) mg/dl Est Cr Clr Drug Dosing Not Reportable Est GFR ( Amer) 110.7 ml/min Est GFR (Non-Af Amer) 95.5 ml/min BUN/Creatinine Ratio 17.0 (10-20) Glucose 109 H (70-99(Fasting)) mg/dl Calcium 9.0 (8.6-10.3) mg/dl Total Bilirubin 0.5 (0.2-1.0) mg/dl AST 18 (13-39) U/L ALT 7 (7-52) U/L Alkaline Phosphatase 121 H (34-104) U/L Total Protein 7.4 (6.0-8.3) gm/dl Albumin 3.3 L (3.4-5.0) gm/dl Globulin 4.1 H (2.5-4.0) gm/dl Albumin/Globulin Ratio 0.8 L (0.9-2) Administered Medications Sodium Chloride (Nss) 1,000 mls @ 75 mls/hr IV .[id number] FERNY Stop: 11/08/23 16:31 Last Admin: 10/09/23 16:43 Dose: 75 mls/hr Documented By: THOMAS Insulin Aspart (Insulin Aspart Per Unit Charge) 0 units SC ACHS FERNY Stop: 11/08/23 16:44 Last Admin: 10/09/23 17:09 Dose: Not Given Documented By: THOMAS Discontinued Medications Acetaminophen (Ofirmev) 1,000 mg in 100 mls @ 400 mls/hr IV NOW STA Stop: 10/09/23 13:31 Last Infusion: 10/09/23 14:03 Dose: Infused Documented By: Admin: 10/09/23 13:31 Dose: 400 mls/hr Documented By: JEANE Sodium Chloride (Nss) 500 mls @ 999 mls/hr IV .Q31M ONE Stop: 10/09/23 13:47 Last Infusion: 10/09/23 14:04 Dose: Infused Documented By: Admin: 10/09/23 13:31 Dose: 999 mls/hr Documented By: JEANE Miscellaneous (Patient's Height &/Or Weight Needed) 1 each N/A NOW STA Stop: 10/09/23 16:38 Last Admin: 10/09/23 16:43 Dose: 1 each Documented By: THOMAS Oxycodone HCl (Oxycodone Hcl Ir 5 Mg Tab (Immediate Release)) 5 mg PO NOW STA Stop: 10/09/23 13:18 Last Admin: 10/09/23 13:31 Dose: 5 mg Documented By: JEANE Imaging Data Radiologist's Impression: SI Joint X-Ray 10/09/23 13:19 XR SI joints min 3V routine CLINICAL HISTORY: recent R sided SI revision COMPARISON STUDY: Abdomen and pelvis CT 09/22/2023. FINDINGS: No acute fracture or dislocation within the pelvis or hips. The sacrum appears intact. Posterior decompression and fusion within the visualized lumbar spine to the level of S1 as well as a left sacroiliac bolts. There is mild periprosthetic lucency within the bilateral S1 pedicle screws in the left sacroiliac bolts. There are 2 screws fusing the right sacroiliac joint. The hardware appears intact. IMPRESSION: 1. Postoperative changes seen within the lower lumbar spine and sacrum. No fractures identified. 2. Mild periprosthetic lucency within the bilateral S1 pedicle screws and left sacroiliac bolts. This may represent loosening. ACT 112: Negative or not required by law. Electronically signed by: Lele Pemberton M.D. 10/09/2023 3:42 PM Discharge Plan Visit Data Chief Complaint: Referred by Doctor Stated Complaint: RECENT BACK SURG. BACK PAIN. DOCTOR REFFERED ED Provider: Jag Davila Discharge Problem: Intractable back pain Patient Disposition: Admitted As Inpatient Discharge Instructions Interventions: ED Discharge Assessment Last Done: 10/09/23 16:18
[2023-10-09] MEDS: SODIUM CHLORIDE 0.9% 500 ML IV ONE (13:31)
[2023-10-09] MEDS: ACETAMINOPHEN 1,000 MG/100 ML VIAL IV STA (13:31)
[2023-10-09] MEDS: oxyCODONE HCL IR 5 MG TAB (IMMEDIATE RELEASE) PO STA (13:31)
[2023-10-09 14:11] LABS: Basophils # (auto) 0.02 K/uL (0.00-0.20); Basophils % (auto) 0.2 %; Eosinophils # (auto) 0.09 K/uL (0.00-0.50); Eosinophils % (auto) 0.9 %; Hematocrit (blood only) 40.5 % (37.0-47.0); Hemoglobin 12.7 g/dl (12.0-16.0); Immature Granulocytes # (auto) 0.03 K/uL (0.01-0.20); Immature Granulocytes % (auto) 0.3 %; Lymphocytes # (auto) 1.43 K/uL (1.20-3.40); Lymphocytes % (auto) 15.1 %; Mean Corpuscular Hemoglobin 28.7 pg (25.0-34.0); Mean Corpuscular Hgb Conc 31.4 g/dL (32.0-36.0); Mean Corpuscular Volume 91.4 fL (80.0-100.0); Mean Platelet Volume 11.7 fL (9.4-12.4); Monocytes # (auto) 0.85 K/uL (0.11-0.59); Monocytes % (auto) 8.9 %; Neutrophils # (auto) 7.08 K/uL (1.40-6.50); Neutrophils % (auto) 74.6 %; Platelet Count 388 K/uL (130-400); Red Blood Count 4.43 M/uL (4.20-5.40)
[2023-10-09 14:26] LABS: Alanine Aminotransferase 7 U/L (7-52); Albumin Globulin Ratio 0.8 (0.9-2); Albumin Level 3.3 gm/dl (3.4-5.0); Alkaline Phosphatase 121 U/L (34-104); Anion Gap 8 (3-11); Aspartate Aminotransferase 18 U/L (13-39); Bilirubin,Total 0.5 mg/dl (0.2-1.0); Blood Urea Nitrogen 9 mg/dl (6-23); Carbon Dioxide 28 mmol/L (21-32); Chloride 101 mmol/L (98-107); Est GFR (African American) 110.7 ml/min; Est GFR (Non-African American) 95.5 ml/min; Globulin 4.1 gm/dl (2.5-4.0); Glucose 109 mg/dl (70-99(Fasting)); Sodium 137 mmol/L (136-145); Total Protein 7.4 gm/dl (6.0-8.3)
--- NOTE | 2023-10-09 15:04 | History & Physical Report ---
Date of Service October 09, 2023 Assessment & Plan (1) Intractable back pain: Plan: Assessment status post revision right SI joint fusion. Plan at this time we will obtain some imaging of the perioperative area to ensure no change or loosening of instrumentation. Will initiate physical therapy occupational therapy throughout the next few days with the goal of her returning home. I will discontinue her current pain regiment and return her to oxycodone as ne eded. Patient stands agrees with this plan. History of Present Illness Chief Complaint: Postoperative back pain Primary Care Provider: Jadyn Johnson DO Patient presents emergency room having been at rehab facility. She states that she has significant pain with transitions. Getting in and out of bed. Walking is tolerable with assistance. She has no radicular complaints. Her pain is in the right side of the pelvis in the perioperative area. Is not painful when ambulating. She denies any lower extremity numbness or tingling. She has required significant doses of narcotics while at rehab. This is caused significant bowel issues. Allergies Allergy/AdvReac Type Severity Reaction Status Date / Time Sulfa (Sulfonamide Allergy Intermediate Rash Verified 09/24/23 16:58 Antibiotics) gabapentin AdvReac Severe Nightmare Verified 09/24/23 16:58 Home Medications Medication Instructions Recorded Confirmed Type colesevelam 625 mg tablet (WelChol) 1,250 mg PO BID 09/11/21 09/24/23 History hydrochlorothiazide 25 mg tablet 25 mg PO QAM 09/11/21 09/24/23 History pioglitazone 15 mg tablet 15 mg PO QAM 09/11/21 09/24/23 History baclofen 10 mg tablet 10 mg PO TID 02/08/23 09/24/23 History cholecalciferol (vitamin D3) 50 50 mcg PO DAILY 09/22/23 09/24/23 History mcg (2,000 unit) tablet (Vitamin D3) colchicine 0.6 mg tablet (Colcrys) 0.6 mg PO BID PRN Gout Flare 09/22/23 09/24/23 History levothyroxine 200 mcg tablet 200 mcg PO QAM 09/22/23 09/24/23 History hydrocodone 5 mg-acetaminophen 325 1 tab PO Q6H PRN pain #14 tabs 09/23/23 09/24/23 Rx mg tablet ondansetron 4 mg disintegrating 4 - 8 mg translingual DIRECTED 09/24/23 09/24/23 History tablet PRN NAUSEA/VOMITING prednisone 10 mg tablet 10 mg PO UD 09/24/23 09/24/23 History oxycodone 5 mg tablet 5 mg PO Q6H PRN pain #30 tabs 09/26/23 Rx tramadol 50 mg tablet 50 mg PO Q6H PRN pain, moderate 09/26/23 Rx #30 tabs Past Med/Surg History Problem List Sacroiliitis Intractable back pain Neurogenic claudication due to lumbar spinal stenosis Morbid obesity Neuroforaminal stenosis of lumbar spine (Acute) Hypothyroidism HLD (hyperlipidemia) HTN (hypertension) T2DM (type 2 diabetes mellitus) Medical History 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 Gout Muscle spasm severe History of COVID-19 03/2022- mild symptoms Lumbar disc herniation with radiculopathy Surgical History Hx of bilateral cataract extraction History of lumbar spinal fusion 01/21/2023 [facility] L2-L4 decompression/fusion (09/14/21): Grade view 1, Garcia#2, ETT 7.0 at [facility] Nausea and vomiting after administration of anesthetic agent states scopolamine patch worked very well after last procedure Hx of dilation and curettage Hx of arthroscopy of left knee meniscus injury Hx of cholecystectomy Hx of tonsillectomy History of x2 History of total knee replacement Left 2012, Right 2006 Family History Mother Sclerosing cholangitis Father Alcohol use disorder Social History Smoking Status: Never smoker Second Hand Exposure: No; Do You Dip or Chew Tobacco: No; Hx Alcohol Use: No Hx Substance Use: No Preferred Language: Korean Communication Ability: Effective Computer Publisher Required: No Beliefs That Will Affect Care: None marital status: Current Living Situation: Spouse Current Living Situation Comment: Home with current occupational status: retired Feels Safe at Home: Yes Assistive Devices: Bedside Commode, Cane and Walker Physical Exam Physical Exam: On exam she is comfortable at this time. She is neurologically intact to testing lower extremities. Sensory is intact. She has no tenderness palpation of the calf musculature. Incisions are healing appropriately. Results & Data Results & Data Vital Signs (Past 12 Hours) Vital Signs Temp Pulse Pulse Resp BP BP Pulse Ox 10/09/23 14:03 88 L 10/09/23 14:01 73 14 147/59 H 95 10/09/23 13:47 79 10/09/23 12:35 36.9 C 86 18 123/81 94 O2 Del Method O2 Flow Rate 10/09/23 14:03 Room Air 0 10/09/23 14:01 Nasal Cannula 2 10/09/23 13:47 10/09/23 12:35 Room Air Code Status & VTE Plan VTE Prophylaxis Plan VTE Prophylaxis will be ordered: Yes
--- NOTE | 2023-10-09 15:44 | XRay Report ---
XR SI joints min 3V routine CLINICAL HISTORY: recent R sided SI revision COMPARISON STUDY: Abdomen and pelvis CT 09/22/2023. FINDINGS: No acute fracture or dislocation within the pelvis or hips. The sacrum appears intact. Post erior decompression and fusion within the visualized lumbar spine to the level of S1 as well as a lef t sacroiliac bolts. There is mild periprosthetic lucency within the bilateral S1 pedicle screws in th e left sacroiliac bolts. There are 2 screws fusing the right sacroiliac joint. The hardware appears i ntact. IMPRESSION: 1. Postoperative changes seen within the lower lumbar spine and sacrum. No fractures identified. 2. Mild periprosthetic lucency within the bilateral S1 pedicle screws and left sacroiliac bolts. This may represent loosening. ACT 112: Negative or not required by law. Electronically signed by: Lele Pemberton M.D. 10/09/2023 3:42 PM
--- NOTE | 2023-10-09 16:09 | CT Scan Report ---
CT pelvis wo con CLINICAL HISTORY: Hip pain. COMPARISON STUDY: CT of the abdomen and pelvis September 22, 2023. Fluoroscopic images of the right sacro iliac joint September 25, 2023. TECHNIQUE: Axial images of the pelvis, sacrum, sacroiliac joints and hips was performed without IV co ntrast. Sagittal and coronal reformats were viewed. Automated exposure control was utilized for the s tudy. A dose lowering technique was utilized adhering to the principles of ALARA. FINDINGS: Lumbosacral fusion is partially imaged on this examination. Subcutaneous operative bed flui d collection measures approximately 3.2 x 3.1 cm. This is partially imaged as well. There are postope rative findings consistent with fusion of the right sacroiliac joint. The hardware is intact. No raheel mahogany is identified. There are no unexpected radiopaque foreign bodies. The hardware is intact. Mild l ucency adjacent to the left sacroiliac is unchanged since CT of September 14, 2023. There is a moderate am ount of poorly formed stool within the rectum. No pelvic hematoma is present. Caliber of visualized s mall and large bowel are normal this exam is compromised by streak artifact from the surgical hardwar e. IMPRESSION: 1. Status post right SI joint fusion. No fractures identified. Hardware intact. No associated hemato ma. Exam mildly compromised by streak artifact from the surgical hardware. 2. Partially visualized postoperative findings within the spine, as described above. ACT 112: Negative or not required by law. Electronically signed by: Davin Hudson M.D. 10/09/2023 4:07 PM
[2023-10-09] MEDS ORDERED: ACETAMINOPHEN 1,000 MG/100 ML VIAL IV PRN (16:32)
[2023-10-09] MEDS ORDERED: traMADol HCL 50 MG TABLET PO PRN (16:32)
[2023-10-09] MEDS ORDERED: NALOXONE HCL 0.4 MG/1 ML VIAL/CARP IV PRN (16:32)
[2023-10-09] MEDS ORDERED: predniSONE 10 MG TABLET PO SCH (16:32)
[2023-10-09] MEDS ORDERED: METOCLOPRAMIDE HCL INJ 5 MG/ML 2 ML VIAL IV PRN (16:32)
[2023-10-09] MEDS ORDERED: MAGNESIUM HYDROXIDE SUSP 30 ML UDC PO PRN (16:32)
[2023-10-09] MEDS: SODIUM CHLORIDE 0.9% 1,000 ML IV SCH (16:43)
[2023-10-09] MEDS: Patient's HEIGHT &/or WEIGHT Needed STA (16:43)
[2023-10-09] MEDS: INSULIN ASPART PER UNIT CHARGE SC SCH (17:09)
--- NOTE | 2023-10-09 17:11 | Hospitalist Consultation ---
<Statement entered by Kal Jay DO - 10/09/23 18:51> I have seen and examined the patient and have discussed the case with the provider above. I have reviewed the advanced practitioner's documentation, and I agree with, and take responsibility for that plan of care. 10 minutes spent in coordination care with LUISANA. Patient seen at the bedside, with the patient as well. Reports pain is overall well-controlled. Patient reports not much of the appetite ever since her surgery. Some chronic intermittent nausea. Possible gastroparesis exacerbated by her postoperative state and diabetes. Will give a trial low-dose Reglan before meals and at bedtime Plan of care as outlined below and per attending Date of Consultation October 09, 2023 Assessment & Plan (1) Intractable back pain: This is a 73yo F with a PMH of hypothyroidism, dyslipidemia, HTN, obesity, h istory of spinal surgeries who presents with intractable back pain. We have been consulted to assist with post-operative medical management. - Pain control, DVT prophylaxis, PT/OT per primary team - Add scheduled stool softener while pt on narcotics - moderate amount of poorly formed stool in the rectum on CT - Trial of metoclopramide with meals due to ongoing nausea, underlying DM, narcotic therapy (2) Hypothyroidism: Chronic, stable Continue levothyroxine, TSH 6.4 but Free T4 1.34 on 09/24/23 (3) HLD (hyperlipidemia): Chronic, stable on colesevelam (4) HTN (hypertension): Chronic, BPs have been running lower at rehab so will hold HCTZ for now and monitor BP (5) T2DM (type 2 diabetes mellitus): On pioglitazone, a1c 6.4 in May, Insulin sliding scale Plan Pt seen and reviewed with collaborating physician, Dr. Jay. Plan of care discussed and as outlined above. Thank you for this consultation. We will continue to follow patient with you. A member of the [facility]ist team is available 17/09 via [employer]. Please don't hesitate to call with questions. Jesica Perez PA-C History of Present Illness Reason for Consultation: medical management Requesting Physician: Dr. Timothy Herr Attending Physician: Timothy Herr DO History of Present Illness This is a 73yo F with a PMH of hypothyroidism, dyslipidemia, HTN, obesity, history of spinal surgeries who presents with intractable back pain. History of L4-S1 decompression, L2-S1 fusion, L2-L4 hardware removal in Dec 2022 with following OR for R sacroiliac joint fusion for loosening of hardware. Recent admission for intractable back pain for which pt underwent right SI joint fusion on 09/25/23 and was discharged to rehab on 09/28/23. At rehab, pt was continuing to require significant doses of narcotics and noted significant pain with transitions. Pt notes that they switched her oxycodone to Oxycontin and then MS Contin when she was at rehab, which she felt did not work as well. Specifically, her pain has been with transition from lying to sitting, less so sitting to standing. She reports minimal pain with ambulation and had actually been doing quite well walking with PT at rehab. She was having issues with constipation at rehab but was finally able to have a BM last night after a Dulcolax suppository and a Fleet's enema. Her appetite has been decreased with the constipation. She also notes issues with low BPs at rehab, at times in the 90s/50 range, but reports she was still given her HCTZ even though she was told she should stop it. Allergies Allergy/AdvReac Type Severity Reaction Status Date / Time Sulfa (Sulfonamide Allergy Intermediate Rash Verified 09/24/23 16:58 Antibiotics) gabapentin AdvReac Severe Nightmare Verified 09/24/23 16:58 Home Medications Medication Instructions Recorded Confirmed Type colesevelam 625 mg tablet (WelChol) 1,250 mg PO BIDM 09/11/21 10/09/23 History pioglitazone 15 mg tablet 15 mg PO QAM 09/11/21 10/09/23 History baclofen 10 mg tablet 10 mg PO Q6 02/08/23 10/09/23 History cholecalciferol (vitamin D3) 50 50 mcg PO DAILY 09/22/23 10/09/23 History mcg (2,000 unit) tablet (Vitamin D3) colchicine 0.6 mg tablet (Colcrys) 0.6 mg PO BID PRN Gout Flare 09/22/23 10/09/23 History levothyroxine 200 mcg tablet 200 mcg PO QAM 09/22/23 10/09/23 History ondansetron 4 mg disintegrating 4 mg translingual Q6 PRN 09/24/23 10/09/23 History tablet NAUSEA/VOMITING tramadol 50 mg tablet 50 mg PO Q6H PRN pain, moderate 09/26/23 10/09/23 Rx #30 tabs acetaminophen 325 mg tablet 325 mg PO Q6 10/09/23 10/09/23 History acetaminophen 500 mg tablet 500 mg PO Q6H 10/09/23 10/09/23 History dantrolene 25 mg capsule 25 mg PO TID 10/09/23 10/09/23 History docusate sodium 100 mg capsule 100 mg PO BID 10/09/23 10/09/23 History ibuprofen 200 mg tablet 200 mg PO Q6H 10/09/23 10/09/23 History lidocaine 4 % topical patch 1 patch topical DAILY 10/09/23 10/09/23 History morphine 15 mg tablet,extended 30 mg PO Q12H 10/09/23 10/09/23 History release (MS Contin) polyethylene glycol 3350 17 17 g PO BID 10/09/23 10/09/23 History gram/dose oral powder (Miralax) tapentadol 50 mg tablet (Nucynta) 50 mg PO .6AM BEFORE THERAPY 10/09/23 10/09/23 History tapentadol 50 mg tablet (Nucynta) 50 mg PO .Q 3 HOURS PRN PAIN 4-10 10/09/23 10/09/23 History Patient History Medical History 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 Gout Muscle spasm severe History of COVID-19 03/2022- mild symptoms Lumbar disc herniation with radiculopathy Surgical History Hx of bilateral cataract extraction History of lumbar spinal fusion 01/21/2023 [facility] L2-L4 decompression/fusion (09/14/21): Grade view 1, Garcia#2, ETT 7.0 at [facility] Nausea and vomiting after administration of anesthetic agent states scopolamine patch worked very well after last procedure Hx of dilation and curettage Hx of arthroscopy of left knee meniscus injury Hx of cholecystectomy Hx of tonsillectomy History of x2 History of total knee replacement Left 2012, Right 2006 Family History Mother Sclerosing cholangitis Father Alcohol use disorder Social History Smoking Status: Never smoker Second Hand Exposure: No; Do You Dip or Chew Tobacco: No; Hx Alcohol Use: No Hx Substance Use: No Preferred Language: Burkinan Communication Ability: Effective Flight Physician Required: No Beliefs That Will Affect Care: None marital status: Current Living Situation: Spouse Current Living Situation Comment: Home with current occupational status: retired Other Information That Helps Us Care for You: No Feels Safe at Home: Yes Safety Concerns: Feels Safe At This Time Assistive Devices: Glasses and Walker Review of Systems Review of Systems: All systems reviewed & are unremarkable except as noted in HPI & below and All systems reviewed & are unremarkable except as noted in Subjective Constitutional: no fever and no chills Respiratory: no cough and no dyspnea Cardiovascular: no chest pain, no palpitations and no syncope Gastrointestinal: + nausea and + constipation; no vomiting Musculoskeletal: + back pain Neurologic: no dizziness, no headache(s) and no confusion Physical Exam Physical Exam: General: awake, alert, NAD HEENT: no scleral icterus, moist oral mucosa Neck: supple, trachea midline Heart: RRR, +murmur Lungs: CTA bilaterally Abdomen: soft, NT, +BS Extremities: no pedal edema, no calf tenderness Neurologic: moving all extremities, no focal deficits Results & Data Results & Data Vital Signs (Past 12 Hours) Vital Signs Temp Pulse Pulse Pulse Resp BP BP 10/09/23 16:34 36.6 C 78 18 133/75 10/09/23 16:18 71 14 123/63 10/09/23 16:00 72 17 115/64 10/09/23 14:03 10/09/23 14:01 73 14 147/59 H 10/09/23 13:47 79 10/09/23 12:35 36.9 C 86 18 123/81 Pulse Ox O2 Del Method O2 Flow Rate 10/09/23 16:34 94 Room Air 10/09/23 16:18 95 Nasal Cannula 1 10/09/23 16:00 97 Nasal Cannula 1 10/09/23 14:03 88 L Room Air 0 10/09/23 14:01 95 Nasal Cannula 2 10/09/23 13:47 10/09/23 12:35 94 Room Air Laboratory Results Lab Results 10/09/23 10/09/23 Range/Units 13:37 16:36 WBC 9.50 (4.8-10.8) K/ul RBC 4.43 (4.20-5.40) M/uL Hgb 12.7 (12.0-16.0) g/dl Hct 40.5 (37.0-47.0) % MCV 91.4 (80.0-100.0) fL MCH 28.7 (25.0-34.0) pg MCHC 31.4 L (32.0-36.0) g/dL RDW Std Deviation 57.0 H (36.4-46.3) fL RDW Coeff of Carine 17.0 H (11.5-14.5) % Plt Count 388 (130-400) K/uL MPV 11.7 (9.4-12.4) fL Immature Gran % (Auto) 0.3 % Neut % (Auto) 74.6 % Lymph % (Auto) 15.1 % [place] % (Auto) 8.9 % Eos % (Auto) 0.9 % Baso % (Auto) 0.2 % Neut # (Auto) 7.08 H (1.40-6.50) K/uL Lymph # (Auto) 1.43 (1.20-3.40) K/uL [place] # (Auto) 0.85 H (0.11-0.59) K/uL Eos # (Auto) 0.09 (0.00-0.50) K/uL Baso # (Auto) 0.02 (0.00-0.20) K/uL Immature Gran # (Auto) 0.03 (0.01-0.20) K/uL Sodium 137 (136-145) mmol/L Potassium 4.0 (3.5-5.1) mmol/L Chloride 101 (98-107) mmol/L Carbon Dioxide 28 (21-32) mmol/L Anion Gap 8 (3-11) BUN 9 (6-23) mg/dl Creatinine 0.53 L (0.6-1.2) mg/dl Est Cr Clr Drug Dosing Not Reportable Est GFR ( Amer) 110.7 ml/min Est GFR (Non-Af Amer) 95.5 ml/min BUN/Creatinine Ratio 17.0 (10-20) Glucose 109 H (70-99(Fasting)) mg/dl POC Glucose 103 H (70-99) mg/dl Calcium 9.0 (8.6-10.3) mg/dl Total Bilirubin 0.5 (0.2-1.0) mg/dl AST 18 (13-39) U/L ALT 7 (7-52) U/L Alkaline Phosphatase 121 H (34-104) U/L Total Protein 7.4 (6.0-8.3) gm/dl Albumin 3.3 L (3.4-5.0) gm/dl Globulin 4.1 H (2.5-4.0) gm/dl Albumin/Globulin Ratio 0.8 L (0.9-2) Diagnostic Findings SI Joint X-Ray 10/09/23 13:19 XR SI joints min 3V routine CLINICAL HISTORY: recent R sided SI revision COMPARISON STUDY: Abdomen and pelvis CT 09/22/2023. FINDINGS: No acute fracture or dislocation within the pelvis or hips. The sacrum appears intact. Posterior decompression and fusion within the visualized lumbar spine to the level of S1 as well as a left sacroiliac bolts. There is mild periprosthetic lucency within the bilateral S1 pedicle screws in the left sacroiliac bolts. There are 2 screws fusing the right sacroiliac joint. The hardware appears intact. IMPRESSION: 1. Postoperative changes seen within the lower lumbar spine and sacrum. No fractures identified. 2. Mild periprosthetic lucency within the bilateral S1 pedicle screws and left sacroiliac bolts. This may represent loosening. ACT 112: Negative or not required by law. Electronically signed by: Lele Pemberton M.D. 10/09/2023 3:[address] 10/09/23 15:01 CT pelvis wo con CLINICAL HISTORY: Hip pain. COMPARISON STUDY: CT of the abdomen and pelvis September 22, 2023. Fluoroscopic images of the right sacroiliac joint September 25, 2023. TECHNIQUE: Axial images of the pelvis, sacrum, sacroiliac joints and hips was performed without IV contrast. Sagittal and coronal reformats were viewed. Automated exposure control was utilized for the study. A dose lowering technique was utilized adhering to the principles of ALARA. FINDINGS: Lumbosacral fusion is partially imaged on this examination. Subcutaneous operative bed fluid collection measures approximately 3.2 x 3.1 cm. This is partially imaged as well. There are postoperative findings consistent with fusion of the right sacroiliac joint. The hardware is intact. No hematoma is identified. There are no unexpected radiopaque foreign bodies. The hardware is intact. Mild lucency adjacent to the left sacroiliac is unchanged since CT of September 14, 2023. There is a moderate amount of poorly formed stool within the rectum. No pelvic hematoma is present. Caliber of visualized small and large bowel are normal this exam is compromised by streak artifact from the surgical hardware. IMPRESSION: 1. Status post right SI joint fusion. No fractures identified. Hardware intact. No associated hematoma. Exam mildly compromised by streak artifact from the surgical hardware. 2. Partially visualized postoperative findings within the spine, as described above. ACT 112: Negative or not required by law. Electronically signed by: Davin Hudson M.D. 10/09/2023 4:07 PM Medications Administered Sodium Chloride (Nss) 1,000 mls @ 75 mls/hr IV .[id number] FERNY Stop: 11/08/23 16:31 Last Admin: 10/09/23 16:43 Dose: 75 mls/hr Documented By: THOMAS Discontinued Medications Acetaminophen (Ofirmev) 1,000 mg in 100 mls @ 400 mls/hr IV NOW STA Stop: 10/09/23 13:31 Last Infusion: 10/09/23 14:03 Dose: Infused Documented By: Admin: 10/09/23 13:31 Dose: 400 mls/hr Documented By: JEANE Sodium Chloride (Nss) 500 mls @ 999 mls/hr IV .Q31M ONE Stop: 10/09/23 13:47 Last Infusion: 10/09/23 14:04 Dose: Infused Documented By: Admin: 10/09/23 13:31 Dose: 999 mls/hr Documented By: JEANE Miscellaneous (Patient's Height &/Or Weight Needed) 1 each N/A NOW STA Stop: 10/09/23 16:38 Last Admin: 10/09/23 16:43 Dose: 1 each Documented By: THOMAS Oxycodone HCl (Oxycodone Hcl Ir 5 Mg Tab (Immediate Release)) 5 mg PO NOW STA Stop: 10/09/23 13:18 Last Admin: 10/09/23 13:31 Dose: 5 mg Documented By: MMG (2) Hypothyroidism Hypothyroidism type: unspecified Qualified Code(s): E03.9 - Hypothyroidism, unspecified (3) HLD (hyperlipidemia) Hyperlipidemia type: unspecified Qualified Code(s): E78.5 - Hyperlipidemia, unspecified (4) HTN (hypertension) Hypertension type: unspecified Qualified Code(s): I10 - Essential (primary) hypertension (5) T2DM (type 2 diabetes mellitus) Diabetes mellitus complication status: without complication Diabetes mellitus retirement insulin use: without manager intermediate use Qualified Code(s): E11.9 - Type 2 diabetes mellitus without complications
[2023-10-09] MEDS ORDERED: POLYETHYLENE (MIRALAX) 17 GM PACK PO PRN (18:01)
[2023-10-09] MEDS: oxyCODONE HCL IR 5 MG TAB (IMMEDIATE RELEASE) PO PRN (20:45)
[2023-10-09] MEDS: DOCUSATE SODIUM 100 MG CAP PO SCH (20:45)
[2023-10-09] MEDS: METOCLOPRAMIDE HCL 5 MG TABLET PO SCH (20:45)
[2023-10-09] MEDS: ONDANSETRON INJ 2 MG/ML 2 ML VIAL IV PRN (21:28)
[2023-10-09] MEDS: [UNRECOGNIZED DRUG - REMARK] SCH (23:53)
[2023-10-10] MEDS: HYDROmorphone INJ 1 MG/ML SYRINGE IV PRN (01:02)
[2023-10-10] MEDS: LEVOTHYROXINE SODIUM 200 MCG TABLET PO SCH (05:09)
[2023-10-10] MEDS: CHOLECALCIFEROL 25 MCG (1000 UNITS) TAB PO SCH (07:49)
--- NOTE | 2023-10-10 08:32 | Orthopedic Progress Note ---
Date of Service October 10, 2023 Assessment & Plan (1) Intractable back pain: Plan: This time initiate physical therapy occupational therapy. Our goal is to get her comfortable with transitions from bed to chair. Ideally will be able to discharge home in the next 3 to 4 days as she progresses. Admission and Anticipated Discharge Date Admission Date: October 09, 2023 Subjective Patient's pain is controlled. It is again most noticeable when transitioning from bed to chair. She states ambulation is tolerable. Physical Exam Physical Exam: Patient is in the chair at the bedside. She is constricted testing. Results & Data Vital Signs (Past 12 Hours) Vital Signs Temp Pulse Resp BP Pulse Ox O2 Del Method O2 Flow Rate 10/10/23 07:35 36.3 C L 97 H 20 100/59 L 94 Room Air 10/09/23 23:42 Nasal Cannula 2 10/09/23 22:03 36.5 C 98 H 16 141/77 H 96 Nasal Cannula 2
[2023-10-10] MEDS ORDERED: hydroCHLOROthiazide 25 MG TAB PO SCH (09:00)
[2023-10-10] MEDS: ONDANSETRON 4 MG OD TAB PO PRN (09:04)
--- NOTE | 2023-10-10 14:06 | Hospitalist Progress Note ---
Date of Service October 10, 2023 Assessment & Plan (1) Intractable back pain: Plan: This is a 73yo F with a PMH of hypothyroidism, dyslipidemia, HTN, obesity, history of spinal surgeries who presents with intractable back pain. We have been consulted to assist with post-operative medical management. - Pain control, DVT prophylaxis, PT/OT per primary team - Add scheduled stool softener while pt on narcotics - moderate amount of poorly formed stool in the rectum on CT - Trial of metoclopramide with meals due to ongoing nausea, underlying DM, narcotic therapy, will discuss if there is improvement with reglan or if should be discontinued (2) Hypothyroidism: Plan: Chronic, stable Continue levothyroxine, TSH 6.4 but Free T4 1.34 on 09/24/23 (3) HLD (hyperlipidemia): Plan: Chronic, stable on colesevelam (4) HTN (hypertension): Plan: Chronic, BPs have been running lower at rehab continue to hold HCTZ for now and monitor BP (5) T2DM (type 2 diabetes mellitus): Plan: On pioglitazone, a1c 6.4 in May, Insulin sliding scale Plan Thank you for this consultation. We will continue to follow patient with you. [facility] [employer]. Please don't hesitate to call with questions. Admission and Anticipated Discharge Date Admission Date: October 09, 2023 Subjective LARON Reports again pain present with sitting up from a supine position Denies any other concerns, reports no noticeable improvement with reglan but states she is trying to eat as able sitting comfortably in beside chair Physical Exam Constitutional: WD/WN, vitals as above (sitting bedside chair ) Respiratory: normal respiratory effort, lungs clear to auscultation Cardiovascular: RRR, no murmur, no edema Gastrointestinal (Abdomen): normal bowel sounds, soft, nontender, no hepatosplenomegaly Results & Data Results & Data Vital Signs (Past 12 Hours) Vital Signs Temp Pulse Resp BP Pulse Ox O2 Del Method 10/10/23 08:00 Room Air 10/10/23 07:35 36.3 C L 97 H 20 100/59 L 94 Room Air Laboratory Results Short CBC 10/09/23 Range/Units 13:37 WBC 9.50 (4.8-10.8) K/ul Hgb 12.7 (12.0-16.0) g/dl Hct 40.5 (37.0-47.0) % Plt Count 388 (130-400) K/uL BMP 10/09/23 13:37 Sodium 137 Potassium 4.0 Chloride 101 Carbon Dioxide 28 BUN 9 Creatinine 0.53 L Glucose 109 H Calcium 9.0 Liver Function 10/09/23 Range/Units 13:37 Total Bilirubin 0.5 (0.2-1.0) mg/dl AST 18 (13-39) U/L ALT 7 (7-52) U/L Alkaline Phosphatase 121 H (34-104) U/L Albumin 3.3 L (3.4-5.0) gm/dl Medications Administered Home Medications Medication Instructions Recorded Confirmed Last Taken colesevelam 625 mg tablet (WelChol) 1,250 mg PO BIDM 09/11/21 10/09/23 09/24/23 08:00 pioglitazone 15 mg tablet 15 mg PO QAM 09/11/21 10/09/23 09/24/23 baclofen 10 mg tablet 10 mg PO Q6 02/08/23 10/09/23 09/24/23 08:00 cholecalciferol (vitamin D3) 50 50 mcg PO DAILY 09/22/23 10/09/23 09/24/23 mcg (2,000 unit) tablet (Vitamin D3) colchicine 0.6 mg tablet (Colcrys) 0.6 mg PO BID PRN Gout Flare 09/22/23 0 10/09/23 Unknown levothyroxine 200 mcg tablet 200 mcg PO QAM 09/22/23 10/09/23 09/24/23 ondansetron 4 mg disintegrating 4 mg translingual Q6 PRN 09/24/23 10/09/23 Unknown tablet NAUSEA/VOMITING tramadol 50 mg tablet 50 mg PO Q6H PRN pain, moderate 09/26/23 10/09/23 Unknown #30 tabs acetaminophen 325 mg tablet 325 mg PO Q6 10/09/23 10/09/23 Unknown acetaminophen 500 mg tablet 500 mg PO Q6H 10/09/23 10/09/23 Unknown dantrolene 25 mg capsule 25 mg PO TID 10/09/23 10/09/23 Unknown docusate sodium 100 mg capsule 100 mg PO BID 10/09/23 10/09/23 Unknown ibuprofen 200 mg tablet 200 mg PO Q6H 10/09/23 10/09/23 Unknown lidocaine 4 % topical patch 1 patch topical DAILY 10/09/23 10/09/23 Unknown morphine 15 mg tablet,extended 30 mg PO Q12H 10/09/23 10/09/23 Unknown release (MS Contin) polyethylene glycol 3350 17 17 g PO BID 10/09/23 10/09/23 Unknown gram/dose oral powder (Miralax) tapentadol 50 mg tablet (Nucynta) 50 mg PO .6AM BEFORE THERAPY 10/09/23 10/09/23 Unknown tapentadol 50 mg tablet (Nucynta) 50 mg PO .Q 3 HOURS PRN PAIN 4-10 10/09/23 10/09/23 Unknown oxycodone 5 mg tablet 5 mg PO Q6H PRN pain #30 tabs 10/10/23 Unknown Active Medications Generic Name Dose Route Start Last Admin Trade Name Freq PRN Reason Stop Dose Admin Docusate Sodium 100 mg 10/09/23 21:00 10/10/23 07:48 Docusate Sodium 100 Mg Cap PO 11/08/23 20:59 100 mg BID FERNY Administration Hydromorphone HCl 1 mg 10/09/23 16:32 10/10/23 07:54 Hydromorphone Inj 1 Mg/Ml Syringe IV 10/23/23 16:31 1 mg Q3H PRN Administration severe pain (scale 7-10) Sodium Chloride 1,000 mls @ 75 mls/hr 10/09/23 16:32 10/10/23 05:09 Nss IV 11/08/23 16:31 75 mls/hr .[id number] FERNY Administration Insulin Aspart 0 units 10/09/23 16:45 10/10/23 12:15 Insulin Aspart Per Unit Charge SC 11/08/23 16:44 Not Given ACHS FERNY Levothyroxine Sodium 200 mcg 10/10/23 06:30 10/10/23 05:09 Levothyroxine Sodium 200 Mcg Tablet PO 11/09/23 06:29 200 mcg DAILYBB FERNY Administration Metoclopramide HCl 5 mg 10/09/23 21:00 10/10/23 11:40 Metoclopramide Hcl 5 Mg Tablet PO 11/08/23 20:59 5 mg ACHS FERNY Administration Miscellaneous 1 each 10/10/23 00:00 10/10/23 07:48 Colesevelam: Order Awaiting Action N/A 11/09/23 00:00 Not Given QS FERNY Ondansetron HCl 4 mg 10/09/23 16:32 10/09/23 21:28 Ondansetron Inj 2 Mg/Ml 2 Ml Vial IV 11/08/23 16:31 4 mg Q6H PRN Administration Nausea &/or Vomiting Ondansetron HCl 4 mg 10/09/23 16:32 10/10/23 09:04 Ondansetron 4 Mg Od Tab PO 11/08/23 16:31 4 mg Q6H PRN Administration Nausea Oxycodone HCl 5 - 10 mg 10/09/23 16:32 10/10/23 05:09 Oxycodone Hcl Ir 5 Mg Tab (Immediate Release) PO 10/23/23 16:31 10 mg Q4H PRN Administration mod to severe pain Vitamin D 50 mcg 10/10/23 09:00 10/10/23 07:49 Cholecalciferol 25 Mcg (1000 Units) Tab PO 11/09/23 08:59 50 mcg DAILY FERNY Administration (2) Hypothyroidism Hypothyroidism type: unspecified Qualified Code(s): E03.9 - Hypothyroidism, unspecified (3) HLD (hyperlipidemia) Hyperlipidemia type: unspecified Qualified Code(s): E78.5 - Hyperlipidemia, unspecified (4) HTN (hypertension) Hypertension type: unspecified Qualified Code(s): I10 - Essential (primary) hypertension (5) T2DM (type 2 diabetes mellitus) Diabetes mellitus medical terminologist insulin use: without medical terminologist use Diabetes mellitus complication status: without complication Qualified Code(s): E11.9 - Type 2 diabetes mellitus without complications
--- NOTE | 2023-10-11 09:49 | Orthopedic Progress Note ---
Date of Service October 11, 2023 Assessment & Plan (1) Intractable back pain: Plan: At this time we will continue to attempt transfers to chair ambulation as tolerated pending depending her foot pain. Will begin colchicine regiment and steroids for her foot pain. Admission and Anticipated Discharge Date Admission Date: October 09, 2023 Subjective Patient's back pain is controlled. Bowels are working very well. Unfortunately she is struggling with gout now affecting her left great toe. Physical Exam Physical Exam: On exam she does have ingrown erythematous toe and the great MTP joint on the left. She is otherwise neurologically intact. Results & Data Vital Signs (Past 12 Hours) Vital Signs Temp Pulse Resp BP Pulse Ox O2 Del Method 10/11/23 08:15 36.8 C 80 16 132/60 95 Room Air Queries Orthopedic Spine Obesity: Yes
[2023-10-11] MEDS: COLCHICINE 0.6 MG TAB PO ONE ×2 (10:50→12:25)
[2023-10-11] MEDS: dexAMETHasone 8 MG in SYRINGE 0 ML IV STA (10:51)
[2023-10-11] MEDS ORDERED: bisacodyL 10 MG SUPP PR PRN (14:58)
--- NOTE | 2023-10-11 16:14 | Hospitalist Progress Note ---
Date of Service October 11, 2023 Assessment & Plan (1) Intractable back pain: Plan: This is a 73yo F with a PMH of hypothyroidism, dyslipidemia, HTN, obesity, history of spinal surgeries who presents with intractable back pain. We have been consulted to assist with post-operative medical management. - Pain control, DVT prophylaxis, PT/OT per primary team - continue scheduled stool softener while pt on narcotics - moderate amount of poorly formed stool in the rectum on CT -reglan discontinued (2) Hypothyroidism: Plan: Chronic, stable Continue levothyroxine, TSH 6.4 but Free T4 1.34 on 09/24/23 (3) HLD (hyperlipidemia): Plan: Chronic, stable on colesevelam (4) HTN (hypertension): Plan: Chronic, BPs have been running lower at rehab continue to hold HCTZ for now and monitor BP (5) T2DM (type 2 diabetes mellitus): Plan: On pioglitazone, a1c 6.4 in May, Insulin sliding scale (6) Gout: Plan: steriods and colchicine started by [facility] in am Plan Thank you for this consultation. We will continue to follow patient with you. A member of the [facility] Hospitalist team is available 17/09 via [employer]. Please don't hesitate to call with questions. Admission and Anticipated Discharge Date Admission Date: October 09, 2023 Subjective NAEO Physical Exam Constitutional: WD/WN, vitals as above (sitting bedside chair ) Respiratory: normal respiratory effort, lungs clear to auscultation Cardiovascular: RRR, no murmur, no edema Gastrointestinal (Abdomen): normal bowel sounds, soft, nontender, no hepatosplenomegaly Musculoskeletal: erythema over left great toe Results & Data Results & Data Vital Signs (Past 12 Hours) Vital Signs Temp Pulse Pulse Resp BP BP Pulse Ox 10/11/23 15:00 37.1 C 90 18 147/83 H 94 10/11/23 11:58 36.2 C L 94 H 20 128/70 92 10/11/23 08:15 36.8 C 80 16 132/60 95 O2 Del Method 10/11/23 15:00 Room Air 10/11/23 11:58 Room Air 10/11/23 08:15 Room Air Medications Administered Home Medications Medication Instructions Recorded Confirmed Last Taken colesevelam 625 mg tablet (WelChol) 1,250 mg PO BIDM 09/11/21 10/09/23 09/24/23 08:00 pioglitazone 15 mg tablet 15 mg PO QAM 09/11/21 10/09/23 09/24/23 baclofen 10 mg tablet 10 mg PO Q6 02/08/23 10/09/23 09/24/23 08:00 cholecalciferol (vitamin D3) 50 50 mcg PO DAILY 09/22/23 10/09/23 09/24/23 mcg (2,000 unit) tablet (Vitamin D3) colchicine 0.6 mg tablet (Colcrys) 0.6 mg PO BID PRN Gout Flare 09/22/23 10/09/23 Unknown levothyroxine 200 mcg tablet 200 mcg PO QAM 09/22/23 10/09/23 09/24/23 ondansetron 4 mg disintegrating 4 mg translingual Q6 PRN 09/24/23 10/09/23 Unknown tablet NAUSEA/VOMITING tramadol 50 mg tablet 50 mg PO Q6H PRN pain, moderate 09/26/23 10/09/23 Unknown #30 tabs acetaminophen 325 mg tablet 325 mg PO Q6 10/09/23 10/09/23 Unknown acetaminophen 500 mg tablet 500 mg PO Q6H 10/09/23 10/09/23 Unknown dantrolene 25 mg capsule 25 mg PO TID 10/09/23 10/09/23 Unknown docusate sodium 100 mg capsule 100 mg PO BID 10/09/23 10/09/23 Unknown ibuprofen 200 mg tablet 200 mg PO Q6H 10/09/23 10/09/23 Unknown lidocaine 4 % topical patch 1 patch topical DAILY 10/09/23 10/09/23 Unknown morphine 15 mg tablet,extended 30 mg PO Q12H 10/09/23 10/09/23 Unknown release (MS Contin) polyethylene glycol 3350 17 17 g PO BID 10/09/23 10/09/23 Unknown gram/dose oral powder (Miralax) tapentadol 50 mg tablet (Nucynta) 50 mg PO .6AM BEFORE THERAPY 10/09/23 10/09/23 Unknown tapentadol 50 mg tablet (Nucynta) 50 mg PO .Q 3 HOURS PRN PAIN 4-10 10/09/23 10/09/23 Unknown oxycodone 5 mg tablet 5 mg PO Q6H PRN pain #30 tabs 10/10/23 Unknown Active Medications Generic Name Dose Route Start Last Admin Trade Name Jacobq PRN Reason Stop Dose Admin Hydromorphone HCl 1 mg 10/09/23 16:32 10/10/23 07:54 Hydromorphone Inj 1 Mg/Ml Syringe IV 10/23/23 16:31 1 mg Q3H PRN Administration severe pain (scale 7-10) Sodium Chloride 1,000 mls @ 75 mls/hr 10/09/23 16:32 10/11/23 09:41 Nss IV 11/08/23 16:31 75 mls/hr .[id number] FERNY Administration Insulin Aspart 0 units 10/09/23 16:45 10/11/23 12:28 Insulin Aspart Per Unit Charge SC 11/08/23 16:44 Not Given ACHS FERNY Levothyroxine Sodium 200 mcg 10/10/23 06:30 10/11/23 05:20 Levothyroxine Sodium 200 Mcg Tablet PO 11/09/23 06:29 200 mcg DAILYBB FERNY Administration Metoclopramide HCl 5 mg 10/09/23 21:00 10/11/23 12:29 Metoclopramide Hcl 5 Mg Tablet PO 11/08/23 20:59 Not Given ACHS FERNY Ondansetron HCl 4 mg 10/09/23 16:32 10/09/23 21:28 Ondansetron Inj 2 Mg/Ml 2 Ml Vial IV 11/08/23 16:31 4 mg Q6H PRN Administration Nausea &/or Vomiting Ondansetron HCl 4 mg 10/09/23 16:32 10/11/23 05:20 Ondansetron 4 Mg Od Tab PO 11/08/23 16:31 4 mg Q6H PRN Administration Nausea Oxycodone HCl 5 - 10 mg 10/09/23 16:32 10/11/23 12:27 Oxycodone Hcl Ir 5 Mg Tab (Immediate Release) PO 10/23/23 16:31 10 mg Q4H PRN Administration mod to severe pain Vitamin D 50 mcg 10/10/23 09:00 10/11/23 09:47 Cholecalciferol 25 Mcg (1000 Units) Tab PO 11/09/23 08:59 50 mcg DAILY FERNY Administration (2) Hypothyroidism Hypothyroidism type: unspecified Qualified Code(s): E03.9 - Hypothyroidism, unspecified (3) HLD (hyperlipidemia) Hyperlipidemia type: unspecified Qualified Code(s): E78.5 - Hyperlipidemia, unspecified (4) HTN (hypertension) Hypertension type: unspecified Qualified Code(s): I10 - Essential (primary) hypertension (5) T2DM (type 2 diabetes mellitus) Diabetes mellitus complication status: without complication Diabetes mellitus terminologist insulin use: without prison use Qualified Code(s): E11.9 - Type 2 diabetes mellitus without complications
[2023-10-11] MEDS: COLESEVELAM HCL PO SCH (17:32)
[2023-10-12] MEDS: PROMETHAZINE 12.5 MG/50.5 ML BAG IV PRN (03:48)
[2023-10-12 07:04] LABS: Albumin Globulin Ratio 0.8 (0.9-2); Albumin Level 2.9 gm/dl (3.4-5.0); BUN Creatinine Ratio 20.9 (10-20); Bilirubin,Total 0.4 mg/dl (0.2-1.0); Calcium 8.6 mg/dl (8.6-10.3); Creatinine Clr Calc Pharmacy 140.3 ml/min; Est GFR (African American) 118.6 ml/min; Est GFR (Non-African American) 102.3 ml/min; Globulin 3.5 gm/dl (2.5-4.0); Magnesium 1.8 mg/dl (1.7-2.4); Phosphorus 1.9 mg/dl (2.5-4.9); Potassium 3.5 mmol/L (3.5-5.1); Total Protein 6.4 gm/dl (6.0-8.3); Uric Acid 4.7 mg/dl (2.6-7.2)
[2023-10-12] MEDS ORDERED: POTASSIUM PHOS 3 MMOL/1 ML INFUSION IV STA (07:50)
[2023-10-12] MEDS: ACETAMINOPHEN 500 MG TAB PO PRN (08:19)
[2023-10-12] MEDS: POTASSIUM PHOSPHATE 24 MMOL in SODIUM CHLORIDE 0.9% 500 ML IV ONE (08:21)
--- NOTE | 2023-10-12 09:57 | Orthopedic Progress Note ---
Date of Service October 12, 2023 Assessment & Plan (1) Sacroiliitis: Plan: At this time we will continue with therapy as tolerated pending her foot pain. We are considering rehab placement early next week but at a different facility. Admission and Anticipated Discharge Date Admission Date: October 09, 2023 Subjective Patient is noting steady improvement in her pain and ability to transfer. 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 Physical Exam Physical Exam: On exam she in the chair at the bedside. Is good strength testing. Results & Data Vital Signs (Past 12 Hours) Vital Signs Temp Pulse Pulse Resp BP BP Pulse Ox 10/12/23 07:59 36.6 C 76 16 125/72 93 10/12/23 03:03 36.9 C 80 73 16 147/83 H 114/67 96 O2 Del Method 10/12/23 07:59 Room Air 10/12/23 03:03 Queries Orthopedic Spine Obesity: Yes
[2023-10-12] MEDS ORDERED: Nursing to Pharmacy Communication SCH (13:00)
[2023-10-12] MEDS: MECLIZINE 12.5 MG TAB PO PRN (13:15)
[2023-10-12] MEDS: ACETAMINOPHEN 500 MG TAB PO SCH ×2 (13:28→16:54)
--- NOTE | 2023-10-12 13:28 | Hospitalist Progress Note ---
Date of Service October 12, 2023 Assessment & Plan (1) Intractable back pain: Plan: This is a 73yo F with a PMH of hypothyroidism, dyslipidemia, HTN, obesity, history of spinal surgeries who presents with intractable back pain. We have been consulted to assist with post-operative medical management. - Pain control, DVT prophylaxis, PT/OT per primary team - continue scheduled stool softener while pt on narcotics - moderate amount of poorly formed stool in the rectum on CT -held bowel regimen 2/2 diarrhea: possibly 2/2 colchicine -reglan discontinued (2) Hypothyroidism: Plan: Chronic, stable Continue levothyroxine, TSH 6.4 but Free T4 1.34 on 09/24/23 (3) HLD (hyperlipidemia): Plan: Chronic, stable on colesevelam (4) HTN (hypertension): Plan: Chronic, BPs have been running lower at rehab continue to hold HCTZ for now and monitor BP (5) T2DM (type 2 diabetes mellitus): Plan: On pioglitazone, a1c 6.4 in May, Insulin sliding scale (6) Gout: Plan: steroids and colchicine started by Ortho for 1 day UA 4.7 Plan Thank you for this consultation. We will continue to follow patient with you. [facility] via [employer]. Please don't hesitate to call with questions. Admission and Anticipated Discharge Date Admission Date: October 09, 2023 Subjective Reports abdominal discomfort and diarrhea over night reports confusion but states mentation improved through the morning patient still with ongoing pain--however describes as spasm, feels worried to try anything else but will consider antispasmodic Physical Exam Constitutional: WD/WN, vitals as above appears uncomfortable in bed Respiratory: normal respiratory effort, lungs clear to auscultation Gastrointestinal (Abdomen): normal bowel sounds, soft, nontender, no hepatosplenomegaly Results & Data Results & Data Vital Signs (Past 12 Hours) Vital Signs Temp Pulse Pulse Resp BP BP Pulse Ox 10/12/23 07:59 36.6 C 76 16 125/72 93 10/12/23 03:03 36.9 C 80 73 16 147/83 H 114/67 96 O2 Del Method 10/12/23 07:59 Room Air 10/12/23 03:03 Laboratory Results BMP 10/12/23 06:20 Sodium 136 Potassium 3.5 Chloride 102 Carbon Dioxide 27 BUN 9 Creatinine 0.43 L Glucose 133 H Calcium 8.6 Liver Function 10/12/23 Range/Units 06:20 Total Bilirubin 0.4 (0.2-1.0) mg/dl AST 16 (13-39) U/L ALT 7 (7-52) U/L Alkaline Phosphatase 95 (34-104) U/L Albumin 2.9 L (3.4-5.0) gm/dl Medications Administered Home Medications Medication Instructions Recorded Confirmed Last Taken colesevelam 625 mg tablet (WelChol) 1,250 mg PO BIDM 09/11/21 10/09/23 09/24/23 08:00 pioglitazone 15 mg tablet 15 mg PO QAM 09/11/21 10/09/23 09/24/23 baclofen 10 mg tablet 10 mg PO Q6 02/08/23 10/09/23 09/24/23 08:00 cholecalciferol (vitamin D3) 50 50 mcg PO DAILY 09/22/23 10/09/23 09/24/23 mcg (2,000 unit) tablet (Vitamin D3) colchicine 0.6 mg tablet (Colcrys) 0.6 mg PO BID PRN Gout Flare 09/22/23 10/09/23 Unknown levothyroxine 200 mcg tablet 200 mcg PO QAM 09/22/23 10/09/23 09/24/23 ondansetron 4 mg disintegrating 4 mg translingual Q6 PRN 09/24/23 10/09/23 Unknown tablet NAUSEA/VOMITING tramadol 50 mg tablet 50 mg PO Q6H PRN pain, moderate 09/26/23 10/09/23 Unknown #30 tabs acetaminophen 325 mg tablet 325 mg PO Q6 10/09/23 10/09/23 Unknown acetaminophen 500 mg tablet 500 mg PO Q6H 10/09/23 10/09/23 Unknown dantrolene 25 mg capsule 25 mg PO TID 10/09/23 10/09/23 Unknown docusate sodium 100 mg capsule 100 mg PO BID 10/09/23 10/09/23 Unknown ibuprofen 200 mg tablet 200 mg PO Q6H 10/09/23 10/09/23 Unknown lidocaine 4 % topical patch 1 patch topical DAILY 10/09/23 10/09/23 Unknown morphine 15 mg tablet,extended 30 mg PO Q12H 10/09/23 10/09/23 Unknown release (MS Contin) polyethylene glycol 3350 17 17 g PO BID 10/09/23 10/09/23 Unknown gram/dose oral powder (Miralax) tapentadol 50 mg tablet (Nucynta) 50 mg PO .6AM BEFORE THERAPY 10/09/23 10/09/23 Unknown tapentadol 50 mg tablet (Nucynta) 50 mg PO .Q 3 HOURS PRN PAIN 4-10 10/09/23 10/09/23 Unknown oxycodone 5 mg tablet 5 mg PO Q6H PRN pain #30 tabs 10/10/23 Unknown Active Medications Generic Name Dose Route Start Last Admin Trade Name Freq PRN Reason Stop Dose Admin Colesevelam HCl 2 each 10/11/23 17:00 10/12/23 08:08 Colesevelam Hcl PO 11/10/23 16:59 2 each BIDM FERNY Administration Hydromorphone HCl 1 mg 10/09/23 16:32 10/11/23 21:35 Hydromorphone Inj 1 Mg/Ml Syringe IV 10/23/23 16:31 1 mg Q3H PRN Administration severe pain (scale 7-10) Potassium Phosphate 24 mmol/ 508 mls @ 88 mls/hr 10/12/23 08:00 10/12/23 08:21 Sodium Chloride IV 10/12/23 13:46 88 mls/hr ONE ONE Administration Insulin Aspart 0 units 10/09/23 16:45 10/12/23 12:47 Insulin Aspart Per Unit Charge SC 11/08/23 16:44 Not Given ACHS FERNY Levothyroxine Sodium 200 mcg 10/10/23 06:30 10/12/23 06:15 Levothyroxine Sodium 200 Mcg Tablet PO 11/09/23 06:29 200 mcg DAILYBB FERNY Administration Meclizine HCl 12.5 mg 10/12/23 12:33 10/12/23 13:15 Meclizine 12.5 Mg Tab PO 11/11/23 12:32 12.5 mg Q8H PRN Administration Vertigo Ondansetron HCl 4 mg 10/09/23 16:32 10/09/23 21:28 Ondansetron Inj 2 Mg/Ml 2 Ml Vial IV 11/08/23 16:31 4 mg Q6H PRN Administration Nausea &/or Vomiting Ondansetron HCl 4 mg 10/09/23 16:32 10/11/23 05:20 Ondansetron 4 Mg Od Tab PO 11/08/23 16:31 4 mg Q6H PRN Administration Nausea Oxycodone HCl 5 - 10 mg 10/09/23 16:32 10/12/23 12:38 Oxycodone Hcl Ir 5 Mg Tab (Immediate Release) PO 10/23/23 16:31 10 mg Q4H PRN Administration mod to severe pain Vitamin D 50 mcg 10/10/23 09:00 10/12/23 08:08 Cholecalciferol 25 Mcg (1000 Units) Tab PO 11/09/23 08:59 50 mcg DAILY FERNY Administration (2) Hypothyroidism Hypothyroidism type: unspecified Qualified Code(s): E03.9 - Hypothyroidism, unspecified (3) HLD (hyperlipidemia) Hyperlipidemia type: unspecified Qualified Code(s): E78.5 - Hyperlipidemia, unspecified (4) HTN (hypertension) Hypertension type: unspecified Qualified Code(s): I10 - Essential (primary) hypertension (5) T2DM (type 2 diabetes mellitus) Diabetes mellitus intermediate card tender insulin use: without jail use Diabetes mellitus complication status: without complication Qualified Code(s): E11.9 - Type 2 diabetes mellitus without complications
[2023-10-12] MEDS: CYCLOBENZAPRINE HCL 5 MG TAB PO PRN (21:49)
--- NOTE | 2023-10-13 07:36 | Orthopedic Progress Note ---
Date of Service October 13, 2023 Assessment & Plan (1) Neurogenic claudication due to lumbar spinal stenosis: Plan: Patient continues to have pain when standing and walking. She is going to need a stay in the longterm facility to help facilitate her recovery. Continue GI DVT prophylaxis and pain control measures. Hopefully will get her to a longterm facility this week. Admission and Anticipated Discharge Date Admission Date: October 09, 2023 Subjective Patient seen bedside in room 357. She is resting comfortably. Complains of minimal while in bed. We are waiting for placement in a longterm facility. Physical Exam Physical Exam: On exam she is alert and oriented. Strength and sensation are grossly intact abdomen soft and nontender calves are supple and nontender Results & Data Vital Signs (Past 12 Hours) Vital Signs Temp Pulse Resp BP Pulse Ox O2 Del Method 10/12/23 21:39 36.4 C L 69 14 119/69 94 Room Air
[2023-10-13] MEDS: POT PHOSPHATE MONOBASIC W/ SOD TAB PO SCH (09:15)
--- NOTE | 2023-10-13 13:39 | Hospitalist Progress Note ---
Date of Service October 13, 2023 Assessment & Plan (1) Intractable back pain: Plan: This is a 73yo F with a PMH of hypothyroidism, dyslipidemia, HTN, obesity, history of spinal surgeries who presents with intractable back pain. We have been consulted to assist with post-operative medical management. - Pain control, DVT prophylaxis, PT/OT per primary team -Patient trialed on cyclobenzaprine but reports ongoing concern over pain -encouraged patient to discuss with primary services - continue scheduled stool softener while pt on narcotics - moderate amount of poorly formed stool in the rectum on CT -held bowel regimen 2/2 diarrhea: possibly 2/2 colchicine -loose stool resolved -reglan discontinued given no benefit and patient refusing to take (2) Hypothyroidism: Plan: Chronic, stable Continue levothyroxine, TSH 6.4 but Free T4 1.34 on 09/24/23 (3) HLD (hyperlipidemia): Plan: Chronic, stable on colesevelam (4) HTN (hypertension): Plan: Chronic, BPs have been running lower at rehab continue to hold HCTZ for now and monitor BP (5) T2DM (type 2 diabetes mellitus): Plan: On pioglitazone, a1c 6.4 in May, Insulin sliding scale (6) Gout: Plan: steroids and colchicine started by Ortho for 1 day UA 4.7 Plan Thank you for this consultation. We will continue to follow patient with you. [facility] [employer]. Please don't hesitate to call with questions. Admission and Anticipated Discharge Date Admission Date: October 09, 2023 Physical Exam Constitutional: WD/WN, vitals as above Respiratory: normal respiratory effort, lungs clear to auscultation Cardiovascular: RRR, no murmur, no edema Gastrointestinal (Abdomen): normal bowel sounds, soft, nontender, no hepatosplenomegaly Results & Data Results & Data Vital Signs (Past 12 Hours) Vital Signs Temp Pulse Pulse Pulse Pulse Resp BP 10/13/23 13:26 36.9 C 80 81 19 118/68 10/13/23 11:01 36.7 C 73 17 118/69 10/13/23 09:50 90 88 21 134/64 10/13/23 07:48 36.8 C 76 16 145/79 H Pulse Ox O2 Del Method 10/13/23 13:26 94 Room Air 10/13/23 11:01 94 Room Air 10/13/23 09:50 Room Air 10/13/23 07:48 94 Room Air Medications Administered Home Medications Medication Instructions Recorded Confirmed Last Taken colesevelam 625 mg tablet (WelChol) 1,250 mg PO BIDM 09/11/21 10/09/23 09/24/23 08:00 pioglitazone 15 mg tablet 15 mg PO QAM 09/11/21 10/09/23 09/24/23 baclofen 10 mg tablet 10 mg PO Q6 02/08/23 10/09/23 09/24/23 08:00 cholecalciferol (vitamin D3) 50 50 mcg PO DAILY 09/22/23 10/09/23 09/24/23 mcg (2,000 unit) tablet (Vitamin D3) colchicine 0.6 mg tablet (Colcrys) 0.6 mg PO BID PRN Gout Flare 09/22/23 10/09/23 Unknown levothyroxine 200 mcg tablet 200 mcg PO QAM 09/22/23 10/09/23 09/24/23 ondansetron 4 mg disintegrating 4 mg translingual Q6 PRN 09/24/23 10/09/23 Unknown tablet NAUSEA/VOMITING tramadol 50 mg tablet 50 mg PO Q6H PRN pain, moderate 09/26/23 10/09/23 Unknown #30 tabs acetaminophen 325 mg tablet 325 mg PO Q6 10/09/23 10/09/23 Unknown acetaminophen 500 mg tablet 500 mg PO Q6H 10/09/23 10/09/23 Unknown dantrolene 25 mg capsule 25 mg PO TID 10/09/23 10/09/23 Unknown docusate sodium 100 mg capsule 100 mg PO BID 10/09/23 10/09/23 Unknown ibuprofen 200 mg tablet 200 mg PO Q6H 10/09/23 10/09/23 Unknown lidocaine 4 % topical patch 1 patch topical DAILY 10/09/23 10/09/23 Unknown morphine 15 mg tablet,extended 30 mg PO Q12H 10/09/23 10/09/23 Unknown release (MS Contin) polyethylene glycol 3350 17 17 g PO BID 10/09/23 10/09/23 Unknown gram/dose oral powder (Miralax) tapentadol 50 mg tablet (Nucynta) 50 mg PO .6AM BEFORE THERAPY 10/09/23 10/09/23 Unknown tapentadol 50 mg tablet (Nucynta) 50 mg PO .Q 3 HOURS PRN PAIN 4-10 10/09/23 10/09/23 Unknown oxycodone 5 mg tablet 5 mg PO Q6H PRN pain #30 tabs 10/10/23 Unknown Active Medications Generic Name Dose Route Start Last Admin Trade Name Freq PRN Reason Stop Dose Admin Acetaminophen 1,000 mg 10/12/23 16:00 10/13/23 16:37 Acetaminophen 500 Mg Tab PO 11/11/23 15:59 1,000 mg Q8H FERNY Administration Colesevelam HCl 2 each 10/11/23 17:00 10/13/23 16:40 Colesevelam Hcl PO 11/10/23 16:59 2 each BIDM FERNY Administration Hydromorphone HCl 1 mg 10/09/23 16:32 10/11/23 21:35 Hydromorphone Inj 1 Mg/Ml Syringe IV 10/23/23 16:31 1 mg Q3H PRN Administration severe pain (scale 7-10) Insulin Aspart 0 units 10/09/23 16:45 10/13/23 12:58 Insulin Aspart Per Unit Charge SC 11/08/23 16:44 1 units ACHS FERNY Administration Levothyroxine Sodium 200 mcg 10/10/23 06:30 10/13/23 05:41 Levothyroxine Sodium 200 Mcg Tablet PO 11/09/23 06:29 200 mcg DAILYBB FERNY Administration Meclizine HCl 12.5 mg 10/12/23 12:33 10/13/23 14:50 Meclizine 12.5 Mg Tab PO 11/11/23 12:32 12.5 mg Q8H PRN Administration Vertigo Ondansetron HCl 4 mg 10/09/23 16:32 10/09/23 21:28 Ondansetron Inj 2 Mg/Ml 2 Ml Vial IV 11/08/23 16:31 4 mg Q6H PRN Administration Nausea &/or Vomiting Ondansetron HCl 4 mg 10/09/23 16:32 10/13/23 14:27 Ondansetron 4 Mg Od Tab PO 11/08/23 16:31 4 mg Q6H PRN Administration Nausea Oxycodone HCl 5 - 10 mg 10/09/23 16:32 10/13/23 14:50 Oxycodone Hcl Ir 5 Mg Tab (Immediate Release) PO 10/23/23 16:31 10 mg Q4H PRN Administration mod to severe pain Potassium Phosphate 1 tab 10/13/23 09:00 10/13/23 16:40 Pot Phosphate Monobasic W/ Sod Tab PO 11/12/23 08:59 1 tab QID FERNY Administration Vitamin D 50 mcg 10/10/23 09:00 10/13/23 09:16 Cholecalciferol 25 Mcg (1000 Units) Tab PO 11/09/23 08:59 50 mcg DAILY FERNY Administration (2) Hypothyroidism Hypothyroidism type: unspecified Qualified Code(s): E03.9 - Hypothyroidism, unspecified (3) HLD (hyperlipidemia) Hyperlipidemia type: unspecified Qualified Code(s): E78.5 - Hyperlipidemia, unspecified (4) HTN (hypertension) Hypertension type: unspecified Qualified Code(s): I10 - Essential (primary) hypertension (5) T2DM (type 2 diabetes mellitus) Diabetes mellitus complication status: without complication Diabetes mellitus termite control technician insulin use: without termite control technician use Qualified Code(s): E11.9 - Type 2 diabetes mellitus without complications
[2023-10-13] MEDS: HYDROmorphone INJ 0.5 MG/0.5 ML SYR IV PRN (18:16)
--- NOTE | 2023-10-14 09:47 | Orthopedic Progress Note ---
Date of Service October 14, 2023 Assessment & Plan (1) Sacroiliitis: Plan: Patient is status post revision SI joint fusion. She is improved with physical therapy over the course of her stay and will plan for rehab placement hopefully tomorrow. Admission and Anticipated Discharge Date Admission Date: October 09, 2023 Subjective Patient's back pain is controlled. She is requiring IV as well as oral narcotics to manage her pain. She is ambulating with therapy. Physical Exam Physical Exam: Patient is ambulating halls. She is neurologically intact. She does have tenderness palpation lumbar musculature. Results & Data Vital Signs (Past 12 Hours) Vital Signs Temp Pulse Resp BP Pulse Ox O2 Del Method 10/14/23 08:29 36.6 C 94 H 18 167/86 H 94 Room Air Queries Orthopedic Spine Obesity: Yes
--- NOTE | 2023-10-14 11:32 | Hospitalist Progress Note ---
Date of Service October 14, 2023 Assessment & Plan (1) Hypothyroidism: Plan: Chronic, stable Continue levothyroxine, TSH 6.4 but Free T4 1.34 on 09/24/23 (2) HLD (hyperlipidemia): Plan: Chronic, stable on colesevelam (3) HTN (hypertension): Plan: Chronic, BPs have been running lower at rehab continue to hold HCTZ for now and monitor BP (4) T2DM (type 2 diabetes mellitus): Plan: On pioglitazone, a1c 6.4 in May, Insulin sliding scale (5) Gout: Plan: steroids and colchicine started by Ortho for 1 day UA 4.7 (6) Sacroiliitis: (7) Neurogenic claudication due to lumbar spinal stenosis: Plan Encouraged patient to follow Dr. Herr's recommendations of using only oral pain medications. She also reported that he will allow her to have some topical heat. Evans to continue to participate with therapies Reviewed blood pressures, overall control, continue current medical plan Reviewed glucoses again well-controlled continue current medical plan Continue other moral medications as ordered Continue to pursue rehab placement, medically maximized and ready for discharge when rehab is arranged and per surgical attending orders Admission and Anticipated Discharge Date Admission Date: October 09, 2023 Subjective Patient reports pain overall fairly well-controlled. Understands to try and limit her pain medications to the oral medication options. Nausea most likely due to the pain medications. Appetite slightly better Physical Exam Physical Exam: Constitutional: Alert HEENT: Mucous membranes moist. Lungs: Clear to auscultation, decreased, no wheezes rales or rhonchi CV: S1-S2, regular Abdomen: Soft, nontender, nondistended Extremities: No significant edema Neuro: No focal deficits Psych: Cooperative, normal mood Results & Data Results & Data Vital Signs (Past 12 Hours) Vital Signs Temp Pulse Resp BP Pulse Ox O2 Del Method 10/14/23 08:29 36.6 C 94 H 18 167/86 H 94 Room Air Diagnostic Findings Reviewed imaging, laboratory and diagnostic studies. Pertinent findings as below. Glucose 82 (1) Hypothyroidism Hypothyroidism type: unspecified Qualified Code(s): E03.9 - Hypothyroidism, unspecified (2) HLD (hyperlipidemia) Hyperlipidemia type: unspecified Qualified Code(s): E78.5 - Hyperlipidemia, unspecified (3) HTN (hypertension) Hypertension type: unspecified Qualified Code(s): I10 - Essential (primary) hypertension (4) T2DM (type 2 diabetes mellitus) Diabetes mellitus group home insulin use: without group home use Diabetes mellitus complication status: without complication Qualified Code(s): E11.9 - Type 2 diabetes mellitus without complications
[2023-10-15] MEDS: CYCLOBENZAPRINE HCL 5 MG TAB PO STA (06:15)
[2023-10-15 07:47] VITALS: RESP 16
--- NOTE | 2023-10-15 12:41 | Hospitalist Progress Note ---
Date of Service October 15, 2023 Assessment & Plan (1) T2DM (type 2 diabetes mellitus): (2) Hypothyroidism: (3) HLD (hyperlipidemia): (4) HTN (hypertension): (5) Gout: (6) Sacroiliitis: (7) Neurogenic claudication due to lumbar spinal stenosis: Plan Continue current medical care Patient's pain and muscle spasms related to her recent surgical intervention, will defer pain management to surgeon Encouraged patient to continue with therapies and ambulation Medically maximized to continue her care at rehab facility when deemed appropriate by attending. at bedside and updated Admission and Anticipated Discharge Date Admission Date: October 09, 2023 Subjective Patient having significant muscle spasms with ambulation. Is using heating pad Physical Exam Physical Exam: Sitting up in chair eating lunch No acute distress Results & Data Results & Data Vital Signs (Past 12 Hours) Vital Signs Temp Pulse Resp BP Pulse Ox O2 Del Method 10/15/23 07:45 36.8 C 68 16 145/76 H 95 Room Air Diagnostic Findings Fingerstick glucose reviewed, well-controlled (1) T2DM (type 2 diabetes mellitus) Diabetes mellitus prison insulin use: without prison use Diabetes mellitus complication status: without complication Qualified Code(s): E11.9 - Type 2 diabetes mellitus without complications (2) Hypothyroidism Hypothyroidism type: unspecified Qualified Code(s): E03.9 - Hypothyroidism, unspecified (3) HLD (hyperlipidemia) Hyperlipidemia type: unspecified Qualified Code(s): E78.5 - Hyperlipidemia, unspecified (4) HTN (hypertension) Hypertension type: unspecified Qualified Code(s): I10 - Essential (primary) hypertension
[2023-10-15 15:31] VITALS: BP 121/66; PULSE 82; TEMP 98.1; O2SAT 96
--- NOTE | 2023-10-29 07:57 | Discharge Summary ---
Date of Service October 29, 2023 Admission HPI Per Admitting Provider Patient presents emergency room having been at rehab facility. She states that she has significant pain with transitions. Getting in and out of bed. Walking is tolerable with assistance. She has no radicular complaints. Her pain is in the right side of the pelvis in the perioperative area. Is not painful when ambulating. She denies any lower extremity numbness or tingling. She has required significant doses of narcotics while at rehab. This is caused significant bowel issues. Admission Exam (Per Admitting) Constitutional WD/WN, vitals as above Eyes normal visual cortez by confrontation ENMT external ear and nose normal, oropharynx normal Neck normal visual inspection Respiratory normal respiratory effort Cardiovascular Extremities: normal capillary refill Gastrointestinal (Abdomen) Inspection/Auscultation: abdomen normal to inspection Musculoskeletal Spine: + sciatic notch tenderness Extremities: extremities normal to inspection and strength 5/5 throughout Skin no rashes, warm and dry Neurologic normal touch/pain/proprioception and moves all extremities Psychiatric A+Ox3, euthymic affect Eye Contact: good eye contact Discharge Data Consultations 10/09/23 14:52 ED Decision to Admit Stat 10/09/23 16:32 Consult Internal Medicine Routine Hospital Course (1) Sacroiliitis: Carlyn was admitted via the emergency room on October 09, 2019 for. She status post right SI joint revision. She continues to have right SI joint pain /sacroiliitis. During her hospital course the goal is to work on pain control. She participated in physical therapy. She was ultimately discharged to [facility] on October 14. Discharge Instructions ACTIVITY RECOMMENDATIONS: SELF CARE INSTRUCTIONS AFTER THORACIC/LUMBAR FUSIONS 1. You may walk to your tolerance. It is good exercise for your legs and back. Expect some back and intermittent leg aches and pains. 2. You may perform "counter-top" level activities (make a sandwich, praful with a project, etc.). 3. No bending or lifting of more than 10 pounds or back twisting of any nature (roll like a log when turning in bed). 4. You may ride in a car for 20-30 minutes at a time. No driving until after your first visit with your doctor. 5. Frequent changes of position and restricting sitting to 30 minutes at a time will help limit the amount of back spasms and stiffness you may experience. 6. You may discontinue the use of ambulatory aids (cane, crutches, etc.) once your strength and confidence allow. 7. You may buyer internship the shower and let water strike your incision when you arrive home at least once daily. Do not take a tub bath, sit in a hot tub or go into a swimming pool until after your first recheck in the office. SPECIAL CARE INSTRUCTIONS: VERY IMPORTANT TO READ AND REVIEW A. Your surgical incision has been closed with a cosmetic suture under the skin that will dissolve in about 6 weeks. In 14 days, you can use a pair of clean scissors and cut the suture that is left outside of the skin at the ends of your incision. 1. The small skin tapes can be removed 7 days after surgery if they have not fallen off by that point. 2. You may keep the wound open to air as much as possible to promote healing after post-op day number 5 unless told otherwise by your doctor. 3. If you think the wound looks like it is becoming infected (redness or worsening drainage) and/or you are experiencing fever, chill or worsening back pain and muscle spasms, contact the office so that we may evaluate you as soon as possible. B. Complications are uncommon, but please contact us if you have any signs or symptoms of: 1. wound infection (fever higher than 102.5 degrees F, redness, separation of wound, drainage, or increasing pain from the incision) 2. blood clots in legs (pain, swelling, redness and warmth in legs) 3. urinary tract infection (fever higher than 102.5 degrees F, burning upon urination or increased frequency of urination) 4. nerve problems (inability to walk on your toes or heels, numbness, loss of bowel or bladder control) 5. any other symptoms that concern you C. Please call the office at if you have any concerns or questions about your operation or recovery. D. No smoking! Smoking drastically decreases the chance of a solid fusion. E. Do not take any anti-inflammatory medications (Indocin, Advil, Motrin, Aspirin, Naprosyn, etc.) as these may inhibit the chance of a solid fusion. Tylenol is okay to take for pain. MANAGING PAIN AFTER SPINAL SURGERY 1. Narcotic medication is intended for short-term use and will be provided for surgical pain. Surgical pain usually lasts for a period of 4-6 weeks. Narcotic medication includes Percocet, Vicodin, Darvocet, Tylenol #3 or Lortab. 2. Longer-term pain is more appropriately treated with non-narcotic medication such as Tylenol ES. 3. Muscle spasm is not appropriately treated with narcotics. Muscle relaxers such as Soma, Flexeril or Skelaxin can be used along with Tylenol ES. 4. Remember that we all live with some "aches and pains". This is not unusual or uncommon after an injury or as we get older. a. Back pain is expected and may include muscle spasms for 4 to 6 weeks after surgery. The pain should gradually improve. If the pain worsens for no apparent reason, please contact the office. b. Intermittent leg pain may also be experienced and should not be concerned about unless it worsens for no apparent reason. If so, please contact the office. 5. We will provide appropriate medication within the normal guidelines of their prescribed use. We will also be very cautious and aware of potential abuse and extended duration of patients' medication needs. a. Pain medications are for your comfort and to assist with sleep and rest so that the tissue can heal. They are not provided in order to return to normal activity and should not be used through the day. To do so or worsening pain at night can result from ongoing tissue damage and development of tolerance to the prescribed medicine. 6. Please allow 2-3 days to process refills. Prescriptions will not be mailed but must be picked up at the office. FOLLOW UP VISIT: Keep your scheduled follow-up appointment. Any questions, please call the office at .
--- NOTE | 2023-10-29 14:24 | Coding Query ---
CODING QUERY To promote full compliance with coding requirements relating to patient care, provider participation is requested in all cases of professional fee coder uncertainty. Please assist us with the question(s) below: Coding Question(s): Is the intractable back pain a possible complication of the recent surgery with loosening of instrumentation, or other complication, or is it postoperative pain that is routine or expected (postoperative pain immediately after surgery) or postoperative pain that is not routine and unexpected? Intractable back pain is most likely related to loosening of instrumentation. Physician's Response(s): The loosening of instrumentation was directly related to the patient's intractable back pain. Thank you Rebeca Mars Principal Diagnosis: "that condition established after study, to be chiefly responsible for occasioning the admission of the patient to the hospital for care." Co-Existing Principal Diagnosis: "when two or more diagnoses equally meet the criteria for principal diagnosis as determined by the circumstances of admission, diagnostic work up, and/or therapy provided, and the Alphabetic Index, Tabular List, or another coding guideline does not provide sequencing direction, any one of the diagnoses may be sequenced first." "When the physician has documented what appears to be a current diagnosis in the body of the record, but has not included the diagnosis in the final diagnostic statement, the physician should be asked whether the diagnosis should be added." (Source Coding [facility] 2 QTR90. p3-4) RACHID
== END 2023-10-15 16:46 | DRG 552 ==
LOC: ED 12:31 → 3W 15:01

== ENCOUNTER 2023-10-31 13:17 | Inpatient (IN) ==
[2023-10-31] MEDS ORDERED: NALOXONE HCL 0.4 MG/1 ML VIAL/CARP IV PRN (14:59)
[2023-10-31] MEDS ORDERED: HYDROmorphone INJ 0.5 MG/0.5 ML SYR IV PRN (14:59)
[2023-10-31] MEDS ORDERED: LORazepam 0.5 MG TAB PO PRN (14:59)
[2023-10-31] MEDS ORDERED: LORazepam 2 MG/1 ML VIAL IV PRN (14:59)
[2023-10-31] MEDS ORDERED: COLCHICINE 0.6 MG TAB PO PRN (15:03)
[2023-10-31] MEDS ORDERED: DEXTROSE 50% 50 ML SYRINGE IV PRN (15:45)
[2023-10-31] MEDS ORDERED: GLUCAGON FOR INJ 1 MG VIAL SQ PRN (15:45)
[2023-10-31] MEDS: LACTATED RINGER'S 1,000 ML IV SCH (15:45)
[2023-10-31] MEDS ORDERED: CARBOHYDRATES FOR HYPOGLYCEMIA PO PRN (15:45)
[2023-10-31] MEDS ORDERED: GLUCOSE 40% GEL 15 GM TUBE PO PRN (15:45)
[2023-10-31] MEDS ORDERED: GLUCOSE 10 TAB/TUBE PO PRN (15:45)
--- NOTE | 2023-10-31 15:46 | Consultation ---
Date of Consultation October 31, 2023 Assessment & Plan (1) Intractable back pain: (2) T2DM (type 2 diabetes mellitus): (3) HTN (hypertension): (4) HLD (hyperlipidemia): (5) Hypothyroidism: Plan This is a 73yo F with a PMH of hypothyroidism, dyslipidemia, HTN, obesity, his tory of spinal surgeries who presents with intractable back pain. Intractable back pain Hx of multiple lumbosacral spine surgery S/p R SI joint revision, on 09/25/[address] Herr hx of SI joint fusion in past Initially discharged to rehab, then re admitted for pain control 10/08- and discharged [facility] presents today due to persistent back pain Labs, Urgent MRI ordered by Dr. Herr Pain control per orthopedic spine T2DM: on pioglitazone, a1c 6.4 in may, hold actos, NovoLog per protocol HTN: chronic, stable, hold hctz perioperatively, resume as able HLD: chronic stable on colesevelam Hypothyroidism: Chronic, stable continue levothyroxine, TSH 6.4 but Free T4 1.34 DVT ppx: SCDS per primary FULL CODE PCP: Jadyn Johnson DO Dispo: admitted to medical, will need PT/OT recs when able A total of 42 minutes was spent coordinating, documenting, and providing care for this patient excluding time spent in the performance of separately billed services. This included personally viewing all current laboratories and imaging studies, medication reconciliation, outpatient chart review, and discussion with specialists. Pt was seen and examined in collaboration with Dr. Rizzo, please see addendum Supervising Physician Co-Signing Physician Notes Patient is a 73-year-old female with history of diabetes mellitus, hypertension, hyperlipidemia, hypothyroidism, sacroiliitis and other medical problems was consulted for medical management by Dr. Herr. Patient had history of multiple lumbosacral surgeries and currently complains of significant low back pain, incr eased with activity and ambulatory dysfunction. She recently was discharged from rehab facility. She admits to have bladder incontinence. Please review HPI for complete details. Currently blood work and MRI spine pending. Physical Exam: Vitals signs as noted above General Appearance:Moderately built and nourished, no apparent distress Head: normocephalic, Atraumatic Eyes: normal inspection, EOMI Neck: supple, Trachea midline Respiratory/Chest: Normal breath sounds, CTA, No accessory muscle use Cardiovascular: S1, S2, No murmur Abdomen/GI:Soft, Non tender, Bowel sounds present Extremities/Musculoskeletal:normal inspection, no edema Neurologic/Psych:AAOX3, grossly no focal neurological deficits Skin: normal color, warm Intractable back pain Ambulatory dysfunction Urinary incontinence MRI spine pending Pain control PT OT as able DVT prophylaxis as per primary team Orthopedic surgery on board DM II Continue insulin while hospitalized Monitor blood glucose levels Hold p.o. medications Other chronic medical problems Continue home medications as able I personally interviewed and examined at bedside. Patient's care is coordinated with Ellyn Corea PA-C. I have reviewed the advanced practitioner's documentation, and I agree with plan of care. Please refer to the documentation above for details of patient's presentation and for discussion of other issues. I spent a total [id number] coordinating, documenting, and providing care for this patient excluding time spent in the performance of separately billed services. History of Present Illness Requesting Physician: Dr. Herr Reason for Consultation: Post op medical management Attending Physician: Timothy Herr, DO History of Present Illness This is a 73 yr old F who has a significant PMH of HTN, HLD, hypothyroidism, obesity, hx of prior spinal surgeries who recently hospitalized 2/2 intractable back pain and discharged to rehab. She has a hx of multiple lumbar surgeries in the past. Her most recent surgery was on 09/25/23 and was R SI Joint fusion. She was discharged on 09/28/23 to [facility]. She was then rehospitalized 10/08- due to intractable back pain. The goal during this hospital course was pain control. She participated in PT and was discharged back to [facility] and discharged home. She represented back today via orthopedic spine as a direct admission for persistent back pain and inability to stand to due pain. She is unable to even stand up. She does not have control of her bladder but she does have control of stool. She denies any perineal numbness. She states this all started 7 days ago. She reports her blood sugar and blood pressure has been low. She has eaten very little in the last 7 days. If she doesn't get her pain treated right away it goes into a spasm and she gets very nauseated. SHe denies any f/c/s, chest pain, sob, lightheaded, dizziness,n/v/d, abd pain, dysuria, increased urg/freq urination or melena. Her main concern is difficulty standing, walking and severe pain. Currently she is only able to ambulate a few feet. She denies an numbness to her legs. Allergies Allergy/AdvReac Type Severity Reaction Status Date / Time Sulfa (Sulfonamide Allergy Intermediate Rash Verified 09/24/23 16:58 Antibiotics) tramadol Allergy Mild Verified 10/31/23 16:17 baclofen Allergy Verified 10/31/23 16:17 gabapentin AdvReac Severe Nightmare Verified 09/24/23 16:58 Home Medications Medication Instructions Recorded Confirmed Type colesevelam 625 mg tablet (WelChol) 1,250 mg PO BIDM 09/11/21 10/31/23 History pioglitazone 15 mg tablet 15 mg PO QAM 09/11/21 10/31/23 History cholecalciferol (vitamin D3) 50 50 mcg PO DAILY 09/22/23 10/31/23 History mcg (2,000 unit) tablet (Vitamin D3) colchicine 0.6 mg tablet (Colcrys) 0.6 mg PO BID PRN Gout Flare 09/22/23 10/31/23 History levothyroxine 200 mcg tablet 200 mcg PO QAM 09/22/23 10/31/23 History ondansetron 4 mg disintegrating 4 mg translingual Q6 PRN 09/24/23 10/31/23 Hi story tablet NAUSEA/VOMITING acetaminophen 325 mg tablet 325 mg PO Q6 10/09/23 10/31/23 History acetaminophen 500 mg tablet 500 mg PO Q6H 10/09/23 10/31/23 History docusate sodium 100 mg capsule 100 mg PO BID 10/09/23 10/31/23 History oxycodone 5 mg tablet 5 mg PO Q6H PRN pain #30 tabs 10/10/23 10/31/23 Rx duloxetine 30 mg capsule,delayed 30 mg PO DAILY 10/31/23 10/31/23 History release tizanidine 4 mg tablet 4 mg PO Q8H 10/31/23 10/31/23 History Patient History Medical History 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 Muscle spasm severe History of COVID-19 03/2022- mild symptoms Lumbar disc herniation with radiculopathy Surgical History Hx of bilateral cataract extraction History of lumbar spinal fusion 01/21/2023 [facility] L2-L4 decompression/fusion (09/14/21): Grade view 1, Garcia#2, ETT 7.0 at [facility] Nausea and vomiting after administration of anesthetic agent states scopolamine patch worked very well after last procedure Hx of dilation and curettage Hx of arthroscopy of left knee meniscus injury Hx of cholecystectomy Hx of tonsillectomy History of x2 History of total knee replacement Left 2012, Right 2006 Family History Mother Sclerosing cholangitis Father Alcohol use disorder Social History Smoking Status: Never smoker Second Hand Exposure: No; Do You Dip or Chew Tobacco: No; Hx Alcohol Use: No Hx Substance Use: No Preferred Language: Kyrgyz Communication Ability: Effective Tube Test Technician Required: No Beliefs That Will Affect Care: None marital status: Current Living Situation: Spouse Current Living Situation Comment: Home with current occupational status: retired Other Information That Helps Us Care for You: No Feels Safe at Home: Yes Safety Concerns: Feels Safe At This Time Assistive Devices: Cane Review of Systems Review of Systems: All systems reviewed & are unremarkable except as noted in HPI & below Physical Exam Physical Exam: please refer to Dr. Rizzo addendum for physical exam findings. Results & Data Vital Signs (Past 12 Hours) Vital Signs Temp Pulse Resp BP Pulse Ox O2 Del Method 10/31/23 14:09 36.8 C 76 16 112/71 96 Room Air Medications Administered Current Inpatient Medications Acetaminophen (Acetaminophen 500 Mg Tab) 1,000 mg PO Q8H PRN PRN Reason: MILD Pain Scale 1,2,3 & Pre PT Stop: 11/30/23 14:58 Hydrocodone Bitart/Acetaminophen (Hydrocodone/Acetamophen 5/325mg Tab) 1 - 2 tab PO Q4H PRN PRN Reason: mod to severe pain Stop: 11/14/23 14:58 Colchicine (Colchicine 0.6 Mg Tab) 0.6 mg PO BID PRN PRN Reason: Gout Flare Stop: 11/30/23 15:02 Cyclobenzaprine HCl (Cyclobenzaprine Hcl 10 Mg Tab) 10 mg PO Q8 PRN PRN Reason: Muscle Spasm Stop: 11/30/23 21:59 Hydromorphone HCl (Hydromorphone Inj 0.5 Mg/0.5 Ml Syr) 0.5 mg IV Q3H PRN PRN Reason: MOD pain (scale 4-6) & Pre PT Stop: 11/14/23 14:58 Hydromorphone HCl (Hydromorphone Inj 1 Mg/Ml Syringe) 1 mg IV Q3H PRN PRN Reason: severe pain (scale 7-10) Stop: 11/14/23 14:58 Lactated Ringer's (Lr) 1,000 mls @ 75 mls/hr IV .[id number] [facility] Stop: 11/30/23 14:59 Acetaminophen (Ofirmev) 1,000 mg in 100 mls @ 400 mls/hr IV Q8H PRN PRN Reason: Pain Rating 1-3 & Pre PT Stop: 11/01/23 14:59 Promethazine HCl (Phenergan) 12.5 mg in 50.5 mls @ 202 mls/hr IV Q6H PRN PRN Reason: Nausea And Vomiting Stop: 11/30/23 14:58 Insulin Aspart (Insulin Aspart Per Unit Charge) 0 units SC ACHS [facility] Stop: 11/30/23 16:29 Levothyroxine Sodium (Levothyroxine Sodium 200 Mcg Tablet) 200 mcg PO DAILYBB [facility] Stop: 12/01/23 06:29 Lidocaine (Lidocaine 5% 1 Patch) 1 patch TD DAILY [facility] Stop: 12/01/23 08:59 Lorazepam (Lorazepam 0.5 Mg Tab) 0.5 mg PO Q8H PRN PRN Reason: sedation/anxiety Stop: 11/30/23 14:58 Lorazepam (Lorazepam 2 Mg/1 Ml Vial) 0.5 mg IV Q8H PRN PRN Reason: Sedation/Anxiety Stop: 11/30/23 14:58 Metoclopramide HCl (Metoclopramide Hcl Inj 5 Mg/Ml 2 Ml Vial) 10 mg IV Q6H PRN PRN Reason: Nausea &/or Vomiting Stop: 11/30/23 14:58 Miscellaneous (Welchol--Order Awaiting Action) 1 each N/A QS FERNY Stop: 11/30/23 15:59 Naloxone HCl (Naloxone Hcl 0.4 Mg/1 Ml Vial/Carp) 0.1 mg IV Q5M PRN PRN Reason: Oversedation/respiratory dep Stop: 11/30/23 14:58 Ondansetron HCl (Ondansetron Inj 2 Mg/Ml 2 Ml Vial) 4 mg IV Q6H PRN PRN Reason: Nausea &/or Vomiting Stop: 11/30/23 14:58 Ondansetron HCl (Ondansetron 4 Mg Od Tab) 4 mg PO Q6H PRN PRN Reason: Nausea Stop: 11/30/23 14:58 (2) T2DM (type 2 diabetes mellitus) Diabetes mellitus complication status: without complication Diabetes mellitus termite helper insulin use: without termite helper use Qualified Code(s): E11.9 - Type 2 diabetes mellitus without complications (3) HTN (hypertension) Hypertension type: unspecified Qualified Code(s): I10 - Essential (primary) hypertension (4) HLD (hyperlipidemia) Hyperlipidemia type: unspecified Qualified Code(s): E78.5 - Hyperlipidemia, unspecified (5) Hypothyroidism Hypothyroidism type: unspecified Qualified Code(s): E03.9 - Hypothyroidism, unspecified
[2023-10-31] MEDS: ONDANSETRON INJ 2 MG/ML 2 ML VIAL IV PRN (15:54)
[2023-10-31] MEDS: ACETAMINOPHEN 1,000 MG/100 ML VIAL IV PRN (16:25)
[2023-10-31 16:48] LABS: Albumin Globulin Ratio 0.7 (0.9-2); Albumin Level 3.1 gm/dl (3.4-5.0); BUN Creatinine Ratio 17.6 (10-20); Basophils # (auto) 0.05 K/uL (0.00-0.20); Basophils % (auto) 0.8 %; Bilirubin,Total 0.4 mg/dl (0.2-1.0); Calcium 9.1 mg/dl (8.6-10.3); Creatinine Clr Calc Pharmacy 112.4 ml/min; Eosinophils # (auto) 0.08 K/uL (0.00-0.50); Eosinophils % (auto) 1.3 %; Est GFR (African American) 112.1 ml/min; Est GFR (Non-African American) 96.7 ml/min; Globulin 4.2 gm/dl (2.5-4.0); Hematocrit (blood only) 40.1 % (37.0-47.0); Immature Granulocytes # (auto) 0.02 K/uL (0.01-0.20); Immature Granulocytes % (auto) 0.3 %; Lymphocytes # (auto) 2.33 K/uL (1.20-3.40); Lymphocytes % (auto) 38.6 %; Magnesium 1.8 mg/dl (1.7-2.4); Mean Corpuscular Hemoglobin 28.8 pg (25.0-34.0); Mean Corpuscular Hgb Conc 32.4 g/dL (32.0-36.0); Mean Corpuscular Volume 88.7 fL (80.0-100.0); Mean Platelet Volume 12.4 fL (9.4-12.4); Monocytes # (auto) 0.55 K/uL (0.11-0.59); Monocytes % (auto) 9.1 %; Neutrophils # (auto) 3.01 K/uL (1.40-6.50); Neutrophils % (auto) 49.9 %; Platelet Count 248 K/uL (130-400); Potassium 3.8 mmol/L (3.5-5.1); RDW Coefficient of Variation 14.9 % (11.5-14.5); RDW Standard Deviation 48.6 fL (36.4-46.3); Red Blood Count 4.52 M/uL (4.20-5.40); Total Protein 7.3 gm/dl (6.0-8.3); White Blood Count 6.04 K/ul (4.8-10.8)
[2023-10-31] MEDS: INSULIN ASPART PER UNIT CHARGE SC SCH (17:10)
[2023-10-31] MEDS: tiZANidine HCL 4 MG TABLET PO SCH (17:20)
--- OUTSIDE RECORDS SUMMARY | 2023-10-31 19:33 | External Medical Summary | Summary of Care ---
Author Name Unknown Organization [facility] Address [address] [place] [facility] [address] Phone [phone] Care Team Providers Care Caregivers Non Medical Name Role Phone Jadyn Johnson DO Primary Care Provider +1- [phone] Reason for Visit * Reason Onset Date Comments Advice 10/29/2023 Encounter Details Date Type Department Care Team (Late st Contact Info) Description 10/29/2023 Telephone Family Practice [facility], [place] [address] [facility] [place] [address] Jadyn Johnson DO [address] [place] [address] Advice Allergies Active Allergy Reactions Criticality Noted Date Comments Gabapentin 05/16/2023 hallucinations Sulfa Antibiotics Rash Low 08/07/2012 documented as of this encounter (statuses as of 10/30/2023) Medications Medication Sig Dispensed Refills Start Date End Date Status VITAMIN D 1000 UNITS PO CAPS Take 2 Capsules by mouth every evening. Active Amoxicillin 500 MG Oral Capsule (Amoxil) Take 1 Capsule by mouth once as needed for Other (dental work). As directed prior to dental work.- Take 4 tablets prior to procedure 4 Capsule 1 02/21/2021 Active Additional Information Patient not taking.Reported on 06/10/2023 Probiotic Acidophilus Oral Capsule Take 1 Tablet by mouth every evening. Active Acetaminophen 500 MG Oral Tablet (Tylenol Extra Strength) Take 1 Tablet by mouth every 6 hours as needed. Active Loperamide HCl 2 MG Oral Capsule (Imodium A-D) Take 1 Capsule by mouth 4 times a day as needed for Diarrhea. Active Levothyroxine Sodium 200 MCG Oral Tablet (Synthroid)Indicatio ns:Acquired hypothyroidism Take 1 Tablet by mouth in the morning. (at least 30 min prior to breakfast or other meds). 90 Tablet 3 04/26/2023 Active Multi Vitamin Oral Tablet Take 1 Tablet by mouth every evening. Active Ibuprofen 200 MG Oral Tablet (Advil) Take 2 Tablets by mouth in the morning and 2 Tablets before bedtime. Active hydroCHLOROthiazide 25 MG Oral Tablet (Hydrodiuril)Indicat ions:HTN, goal below 140/90 Take 1 Tablet by mouth in the morning. 90 Tablet 3 05/16/2023 Active Pioglitazone HCl 15 MG Oral Tablet (Actos)Indications:T ype 2 diabetes mellitus without complication, without long-term current use of insulin (HCC) Take 1 Tablet by mouth in the morning. 90 Tablet 3 05/16/2023 Active Colesevelam HCl 625 MG Oral Tablet (Welchol)Indications :Diarrhea, unspecified type TAKE TWO TABLETS BY MOUTH TWICE A DAY WITH MORNING AND EVENING MEALS 120 Tablet 5 08/02/2023 Active predniSONE 10 MG Oral Tablet (Deltasone)Indicatio ns:Acute right-sided low back pain without sciatica Take 5 tabs for 2 days, 4 tabs for 2 days, 3 tabs for 2 days, 2 tabs for 2 days 1 tab for 2 days 30 Tablet 09/13/2023 Active Naproxen 500 MG Oral Tablet (Naprosyn) Take 1 Tablet by mouth 2 times a day with morning and evening meals. 60 Tablet 3 09/13/2023 Active documented as of this encounter (statuses as of 10/30/2023) Active Problems Problem Noted Date Diagnosed Date [...] as of this encounter (statuses as of 10/30/2023) Resolved Problems Problem Noted Date Diagnosed Date [...] as of this encounter (statuses as of 10/30/2023) Immunizations Name Administration Dates Next Due COVID-19 [...] 02/2020,11/27/2019,11/17/2019,11/25 Seasonal Influenza, Trivalen t, Adjuvanted, 65+ YRS, PF, (Fluad) 11/25/2020,11/27/2019,11/25/2018 TD - Tetanus/Diptheria (ADULT) 02/08/2022 TDAP, Age 7 and older, IM (Adacel) 11/02/2011, Zoster Vaccine Recombinant (Shingrix) 12/24/2018 ,11/22/2018,09/10/2018 documented as of this encounter Social History Tobacco Use Types Packs/Day Years Used Date Smoking Tobacco: Never Smokeless Tobacco: Never Alcohol Use Standard Drinks/Week Comments No 0 (1 standard drink = 0.6 oz pur e alcohol) PHQ-2 Answer Date Recorded PHQ Adult Total Score 0 02/19/2023 Hunger Vital Sign Answer Date Recorded Within the past 12 months, y ou worried that your food would run out before you got the money to buy more. Never true 02/20/20 23 Within the past 12 months, t he food you bought just didn't last and you didn't have money to get more. Never true 02/19/2023 Childcare Answer Date Recorded Do you feel overwhelmed with taking care of a child, family member or friend? No 02/19/2023 Does your family need help f inding childcare? (Household - for ages 0-17 years) Not on file 02/19/2023 Clothing Answer Date Recorded Have you been unable to get clothing when it was really needed? No 02/19/2023 Is your family able to get c lothes or diapers when needed? (Household - for ages 0-17 years) Not on file 02/19/2023 Personal Safety Answer Date Recorded Do you feel unsafe or have concerns for your saf ety? No 02/19/2023 Do you have concerns for you r family's safety? (Household - for ages 0-17 years) Not on file 02/19/2023 Utilities Answer Date Recorded Do you have trouble paying y our heating, water, or electric bill? No 02/19/2023 Is your family able to pay t he heat, water, or electric bill? (Household - for ages 0-17 years) Not on file 02/19/2023 Does your family have access to good internet? (Household - for ages 0-17 years) Not on file 02/19/2023 Employment Status Answer Date Recorded Are you unemployed or without regular income? No 02/19/2023 Does the household have a re gular source of income? (Household - for ages 0-17 years) Not on file 02/19/2023 Social Connections Answer Date Recorded How often do you feel lonely or isolated from th ose around you? Never 02/19/2023 Financial Resource Strain Answer Date R ecorded Do you have any trouble payi ng for your medications, or do you think you might in the future? No 02/19/2023 Does your family have troubl e paying for medicine? (Household - for ages 0-17 years) Not on file 02/19/2023 Transportation Needs Answer Date Record ed READ ONLY Do you have troubl e getting a ride to medical visits or work? Never True 02/19/2023 Does your family have a hard time getting a ride to doctors visits? (Household - for ages 0-17 years) Not on file 02/19/2023 Has lack of transportation k ept you from medical appointments, meetings, work, or from getting things needed for daily living? Check all that apply. (Adult - for ages 18 years and over) Not on file 02/19/2023 Do you (or your family) have trouble finding or paying for a ride (transportation)? (Household - for ages 0-17 years) Not on file 02/19/2023 Housing Stability Answer Date Recorded Do you currently live in a s helter or have no steady place to sleep at night? No 02/19/2023 READ ONLY Do you think you a re at risk of becoming homeless? No 02/19/2023 Does your family worry about paying for your home or becoming homeless? (Household - for ages 0-17 years) Not on file 1 04/22/2022 Are you homeless or worried that you might be in the future? (Adult - for ages 18 years and over) Not on file Are you (or your family) maryjane eless or worried that you might be in the future? (Household - for ages 0-17 years) Not on file Food Insecurity Answer Date Recorded Do you need food for this week? No 02/19/2023 Are you able to get enough f ood for your family? (Household - for ages 0-17 years) Not on file 02/19/2023 Does your family need food t his week? (Household - for ages 0-17 years) Not on file 02/19/2023 Do you always have enough fo od for your family? (Household - for ages 0-17 years) Not on file 02/19/2023 Sex and Gender Information Value Date Recorded Sex Assigned at Female 01/02/2023 9:54 PM EST Gender Identity Female 01/02/2023 9:54 PM EST Sexual Orientation Straight 01/02/2023 9: 54 PM EST Job Start Date Occupation Industry Not on file Not on file Not on file documented as of this encounter Miscellaneous Notes * Telephone Encounter - Eva Haji OSA - 10/30/2023 9:21 AM EDT Spoke to pts and advised pt would need to schedule after she is discharged. * Telephone Encounter - Jadyn Johnson DO - 10/30/2023 7:12 AM EDT Please contact patient and and let them know that this visit will not be able to be billed to insurance. Will need to discuss with her once she is discharged * Telephone Encounter - Natalie Walter OSA - 10/29/2023 4:27 PM EDT Piero Rdz PA-C from [facility] states that the patient's told him that the patient has a video appointment scheduled with on 10/30/23. Piero Rdz PA-C would like to know that the patient is still admitted at [facility] and the office will not be able tobill for the visit. Piero Rdz PA-C states that if had wanted to touch base with him regarding the patient, he can be contacted at [phone]. documented in this encounter Plan of Treatment Upcoming Encounters Date Type Department Care Team (Latest Contact Info) Description 11/12/2023 1:00 PM EDT Cardiac Studies Cardiac Studies [place] [address] [place] [address] 12/25/2023 1:45 PM EDT Hospital Encounter [facility], Operating Room [facility] [address] [place] [phone] Ozzy Griggs, DO [address] [place] [phone] 12/25/2023 1:45 PM EDT - 12/25/2023 2:10 PM EDT Surgery OR [facility], Operating Room [facility] [address] [place] [phone] Ozzy Griggs, DO [address] [place] [address] INJECTION SACROILIAC JOINT 01/06/2024 4:20 PM EST Office Visit Family Practice [place] [address] [place] [address] Jadyn Johnson DO [address] [place] [address] Scheduled Procedures Name Priority Associated Diagnoses Date/Ti me INJECTION SACROILIAC JOINT Inflammation of sacroiliac joint (HCC) 12/25/2023 1:45 PM EDT Health Maintenance Due Date Last Done Comments Hepatitis C Screening 1970 Cologuard 1997 Sigmoidoscopy 1997 Adult Wellness Visit 2018 Fecal Occult Blood Test 07/18/2019 07/18/19 19, 08/20/2013, 08/07/2012 Diabetic Foot Exam 07/07/2023 07/06/2022, 0 08/26/2020, 08/18/2019 COVID-19 Vaccine (24 season) 2023 11/17/2022, 01/03/2022, 05/29/2021, Additional history exists Influenza Vaccine (FLU shot) (#1) 2023 12/03/2022, 11/30/2021, 11/30/2021, Additional history exists Mammogram 11/28/2023 11/27/2022, 04/2022, 11/12/2022, Additional history exists HbA1c 12/13/2023 06/13/2023, 11/0 07/2022, 06/29/2022, Additional history exists Depression Screening 02/20/2024 02/19/2023 TSH 06/09/2024 06/10/2023, 03/29, 12/31/2022, Additional history exists Albumin/Creatinine Ratio 06/12/2024 024, 02/26/2022, 02/22/2021, Additional history exists Diabetic Eye Exam 08/04/2024 08/05/2023, , 03/02/2022, Additional history exists GFR 10/29/2024 10/30/2023, 09/26, 10/16/2023, Additional history exists DXA Scan 09/15/2026 09/16/2019, 09/16/2019 Lipid Panel 06/12/2028 06/13/2023, 110 07/2022, 06/29/2022, Additional history exists Colonoscopy 04/03/2029 04/03/2019, 04/03/2019 Colorectal Cancer Screening 04/03/2029 DTap/Tdap Vaccines (5 - Td or Tdap) 02/09/2032 02/08/2022, 01/30/2022, 11/02/2011, Additional history exists Pneumococcal Vaccine: 65+ Years Completed 12/23/2018, 11/24/2017, 10/05/2017 Zoster Vaccines Completed 12/24/2018, 10/27, 09/10/2018 HPV (Gardasil) Vaccine Aged Out No lo nger eligible based on patient's age to complete this topic Hepatitis B Vaccine Aged Out No longe r eligible based on patient's age to complete this topic MENINGOCOCCAL (MENACTRA/MENVEO) Aged Out No longer eligible based on patient's age to complete this topic documented as of this encounter Medical Devices Not on filedocumented as of this encounter Care Teams Caregivers Non Medical Relationship Specialty Start Date End Date Jadyn Johnson DO [address] [facility] [place] [address] PCP - General Family Medicine 02/10/19 documented as of this encounter
--- OUTSIDE RECORDS SUMMARY | 2023-10-31 19:34 | External Medical Summary ---
Author Name Unknown Address Unknown Organization [id number]:[facility] [place] [place] [address] Laboratory Report Ordering Provider Test Date Status MARIYA HEDRICK 10/30/2023 05:52:32 Final Observation Date Value Abnormality Reference (Units ) Status BUN 10/30/2023 05:52:32 10 6-20 (mg/dL) Final Creatinine 10/30/2023 05:52:32 0.6 0.5-1.0 (mg/dL) Final Glomerular filtration rate/1.73 sq M.predicted [Volume Rate/Area] in Serum, Plasma or Blood by Creatinine-based formula (CKD-EPI) 10/30/2023 05:52:32 >90 >=60 (mL/min) Final eGFR is calculated based on the CKD-EPI 2020 equation. Sodium 10/30/2023 05:52:32 136 135-146 (m mol/L) Final Potassium 10/30/2023 05:52:32 4.6 3.5-5.1 (m mol/L) Final Cl 10/30/2023 05:52:32 98 98-107 (mm ol/L) Final CO2 10/30/2023 05:52:32 25 22-32 (mmo l/L) Final Anion gap 10/30/2023 05:52:32 13 7-15 (mmol /L) Final Glucose 10/30/2023 05:52:32 104 70-120 (mg /dL) Final Calcium 10/30/2023 05:52:32 8.7 8.4-10.2 ( mg/dL) Final Performing Location [facility] [place] [address]
--- OUTSIDE RECORDS SUMMARY | 2023-10-31 19:34 | External Medical Summary | Summary of Care ---
Author Name Unknown Organization [facility] Address [address] [place] [facility] [place] [facility] [place] [address] Phone [phone] Care Team Providers Care Radiagraph Operator Name Role Phone Jadyn Johnson DO Primary Care Provider [phone]- [phone] Reason for Visit * Reason Onset Date Comments Advice 10/29/2023 Encounter Details Date Type Department Care Team (Late st Contact Info) Description 10/29/2023 Telephone Family Practice [facility], [place] [address] [facility] [place] [address] Jadyn Johnson DO [address] [place] [address] Advice Allergies Active Allergy Reactions Criticality [...] encounter Miscellaneous Notes * Telephone Encounter - Jadyn Johnson DO - 10/30/2023 7:12 AM EDT Please contact patient and and let them know that this visit will not be able to be billed to insurance. Will need to discuss with her once she is discharged * Telephone Encounter - Natalie Walter OSA - 10/29/2023 4:27 PM EDT Piero Rdz PA-C from [facility] states that the patient's told him that the patient has a video appointment scheduled with on 10/30/23. Piero Rdz PA-C would like to know that the patient is still admitted at [facility] and the office will not be able tobill for the visit. Piero Rdz PA-C states that if had wanted to touch base with him regarding the patient, he can be contacted at [phone]. documented in this encounter Plan of Treatment Upcoming Encounters Date Type Department Care Team (Latest Contact Info) Description 10/30/2023 1:40 PM EDT Telemedicine Family Practice [address] [place] [address] Jadyn Johnson, DO [address] [place] [address] 11/12/2023 1:00 PM EDT Cardiac Studies Cardiac Studies [address] [place] [address] 12/25/2023 1:45 PM EDT Hospital Encounter OR [facility], Operating Room [facility] [address] [place] [phone] Ozzy Griggs, DO [address] [place] [phone] 12/25/2023 1:45 PM EDT - 12/25/2023 2:10 PM EDT Surgery OR [facility], Operating Room [facility] [address] [place] [phone] Ozzy Griggs, DO [address] [place] [address] INJECTION SACROILIAC JOINT 01/06/2024 4:20 PM EST Office Visit Family [facility] [address] [place] [address] [place] [address] Jadyn Johnson, [address] [place] [address] Scheduled Procedures Name Priority Associated Diagnoses Date/Ti [...] 08/05/2023, , 03/02/2022, Additional history exists GFR 10/22/2024 10/23/2023, 09/26, 06/13/2023, Additional history exists DXA Scan 09/15/2026 09/16/2019, 09/16/2019 Lipid Panel 06/12/2028 06/13/2023, 11/0 07/2022, 06/29/2022, Additional history exists Colonoscopy 04/03/2029 [...] filedocumented as of this encounter Care Teams Radiagraph Operator Relationship Specialty Start Date End Date Jadyn Johnson DO [address] [facility] [place] [address] PCP - General Family Medicine 02/10/19 documented as of this encounter
--- OUTSIDE RECORDS SUMMARY | 2023-10-31 19:34 | External Medical Summary ---
Author Name Unknown Address Unknown Organization K09:[facility] [place] [address] Laboratory Report Ordering Provider Test Date Status MARIYA HEDRICK 10/30/2023 05:52:32 Final Observation Date Value Abnormality Reference (Units ) Status WBC, Total 10/30/2023 05:52:32 5.53 4.00-10.8 0 (K/uL) Final RBC 10/30/2023 05:52:32 4.37 3.85-5.15 (M/uL) Final Hemoglobin 10/30/2023 05:52:32 12.4 12.0-15.3 (g/dL) Final HCT 10/30/2023 05:52:32 40.2 36.0-45.2 (%) Final MCV 10/30/2023 05:52:32 92.0 81.5-97.5 (fL) Final MCH 10/30/2023 05:52:32 28.4 27.0-34.0 (pg) Final MCHC 10/30/2023 05:52:32 30.8 32.0-36.0 (g/dL) Final RDW 10/30/2023 05:52:32 16.7 11.5-15.5 (%) Final Platelets 10/30/2023 05:52:32 227 140-400 (K /uL) Final MPV 10/30/2023 05:52:32 13.1 6.6-11.1 ( fL) Final Performing Location [facility] [place] [address]
--- OUTSIDE RECORDS SUMMARY | 2023-10-31 19:34 | External Medical Summary | Summary of Care ---
Author Name Unknown Organization [facility] Address [address] [place] [place] [address] Phone [phone] Care Team Providers Care Meat Inspector Name Role Phone Jadyn Johnson DO Primary Care Provider +1- [phone] Reason for Visit * Reason Onset Date Comments Advice 10/29/2023 Encounter Details Date Type Department Care Team (Late st Contact Info) Description 10/29/[address] [facility], [place] [address] [facility] [place] [address] Jadyn Johnson DO [address] [facility] [place] [address] Advice Allergies Active Allergy Reactions Criticality [...] 4:27 PM EDT Piero Rdz PA-C from [facility] states that the patient's told him that the patient has a video appointment scheduled with on 10/30/23. Piero Rdz PA-C would like to know that the patient is still admitted at [facility] and the office will not be able tobill for the visit. Piero Rdz PA-C states that if had wanted to touch base with him regarding the patient, he can be contacted at [phone]. documented in this encounter Plan of Treatment Upcoming Encounters Date Type Department Care Team (Latest Contact Info) Description 10/30/2023 1:40 PM EDT Telemedicine Family Practice [address] [address] Jadyn Johnson, DO [address] [place] [address] 11/12/2023 1:00 PM EDT Cardiac Studies Cardiac Studies [place] [place] [address] 12/25/2023 1:45 PM EDT Hospital Encounter OR [facility], Operating Room [facility] [address] [place] [phone] Ozzy Griggs, DO [address] [place] [phone] 12/25/2023 1:45 PM EDT - 12/25/2023 2:10 PM EDT Surgery OR [facility], Operating Room [facility] [address] [place] [phone] Ozzy Griggs, DO [address] [place] [address] INJECTION SACROILIAC JOINT 01/06/2024 4:20 PM EST Office Visit Family [facility] [address] [place] [address] [place] [address] Jadyn Johnson, [address] [place] [address] Scheduled Procedures Name Priority Associated Diagnoses Date/Ti [...] filedocumented as of this encounter Care Teams Meat Inspector Relationship Specialty Start Date End Date Jadyn Johnson DO [address] [facility] [place] [address] PCP - General Family Medicine 02/10/19 documented as of this encounter
[2023-10-31] MEDS: HYDROmorphone INJ 1 MG/ML SYRINGE IV PRN (19:38)
--- NOTE | 2023-10-31 22:30 | Magnetic Resonance Report ---
Exam(s): MRI L SPINE Without Contrast EXAM: MR Lumbar Spine Without Intravenous Contrast CLINICAL HISTORY: Reason for exam: back pain. TECHNIQUE: Magnetic resonance images of the lumbar spine without intravenous contrast in multiple planes. COMPARISON: 09/11/2021 FINDINGS: Vertebrae: Postoperative changes L2-S1 interbody fusion. There is abnormal signal seen within the L1 vertebral body which is new when compared to prior exam. This demonstrated low signal on T1 weighted images and high signal on T2 and STIR-weighted images. There is perhaps 20% vertebral body height loss centered on the inferior endplate. No acute fracture. Spinal cord: Unremarkable. Normal signal. Soft tissues: Unremarkable. DISCS/SPINAL CANAL/NEURAL FORAMINA: L1-L2: Unremarkable. No significant disc disease. No stenosis. L2-L3: Unremarkable. No significant disc disease. No stenosis. L3-L4: Unremarkable. No significant disc disease. No stenosis. L4-L5: Unremarkable. No significant disc disease. No stenosis. L5-S1: Unremarkable. No significant disc disease. No stenosis. IMPRESSION: L1 vertebral body compression fracture resulting in 20% vertebral body height loss. Electronically signed by: Brandon Oliver MD 10/31/23 22:29 PM
[2023-11-01] MEDS: HYDROCODONE/ACETAMOPHEN 5/325MG TAB PO PRN (05:11)
[2023-11-01] MEDS: LEVOTHYROXINE SODIUM 200 MCG TABLET PO SCH (05:11)
[2023-11-01 06:47] LABS: Basophils # (auto) 0.04 K/uL (0.00-0.20); Basophils % (auto) 0.7 %; Eosinophils % (auto) 1.8 %; Hematocrit (blood only) 37.1 % (37.0-47.0); Hemoglobin 11.8 g/dl (12.0-16.0); Immature Granulocytes # (auto) 0.02 K/uL (0.01-0.20); Immature Granulocytes % (auto) 0.4 %; Lymphocytes # (auto) 2.16 K/uL (1.20-3.40); Lymphocytes % (auto) 38.7 %; Mean Corpuscular Hemoglobin 28.2 pg (25.0-34.0); Mean Corpuscular Hgb Conc 31.8 g/dL (32.0-36.0); Mean Corpuscular Volume 88.8 fL (80.0-100.0); Mean Platelet Volume 12.1 fL (9.4-12.4); Monocytes # (auto) 0.54 K/uL (0.11-0.59); Monocytes % (auto) 9.7 %; Neutrophils # (auto) 2.72 K/uL (1.40-6.50); Neutrophils % (auto) 48.7 %; Platelet Count 209 K/uL (130-400); RDW Coefficient of Variation 15.9 % (11.5-14.5); RDW Standard Deviation 51.3 fL (36.4-46.3); Red Blood Count 4.18 M/uL (4.20-5.40); White Blood Count 5.58 K/ul (4.8-10.8)
[2023-11-01 07:04] LABS: BUN Creatinine Ratio 17.1 (10-20); Calcium 8.3 mg/dl (8.6-10.3); Creatinine Clr Calc Pharmacy 139.9 ml/min; Est GFR (African American) 120.5 ml/min; Est GFR (Non-African American) 103.9 ml/min; Magnesium 1.6 mg/dl (1.7-2.4); Potassium 3.6 mmol/L (3.5-5.1)
[2023-11-01 07:25] LABS: Estimated Average Glucose 140 mg/dl; Hemoglobin A1C 6.5 % (4.5-5.6)
[2023-11-01] MEDS: LIDOCAINE 5% 1 PATCH TD SCH (08:41)
[2023-11-01] MEDS: DULoxetine HCL 30 MG CAP PO SCH (08:46)
[2023-11-01] MEDS ORDERED: PIOGLITAZONE HCL 15 MG TAB PO SCH (09:00)
--- NOTE | 2023-11-01 09:58 | History & Physical Report ---
Date of Service November 01, 2023 Assessment & Plan (1) Lumbar compression fracture: Plan: Assessment L1 compression fracture. Plan at this time at length discussed today with the patient and her reviewing her MRI findings and clinical course. We discussed kyphoplasty of the L1 vertebral body. They agree. I would like to obtain a CAT scan of the lumbar spine to evaluate the instrumentation. Will plan for possible kyphoplasty Saturday. Admission and Anticipated Discharge Date Admission Date: October 31, 2023 History of Present Illness Chief Complaint: Incapacitating back pain Primary Care Provider: Jadyn Johnson DO This is a 73-year-old female well-known to me the presents to my office with marked decline in status over the past week. She denies any specific trauma fall or event. She has incapacitating back pain when she tries to sit up and move. She is comfortable when lying supine. She denies any numbness and tingling in the legs. Denies any lower extremity weakness. Denies any acute trauma fall or event. Allergies Allergy/AdvReac Type Severity Reaction Status Date / Time Sulfa (Sulfonamide Allergy Intermediate Rash Verified 09/24/23 16:58 Antibiotics) tramadol Allergy Mild Verified 10/31/23 16:17 baclofen Allergy Verified 10/31/23 16:17 gabapentin AdvReac Severe Nightmare Verified 09/24/23 16:58 Home Medications Medication Instructions Recorded Confirmed Type colesevelam 625 mg tablet (WelChol) 1,250 mg PO BIDM 09/11/21 10/31/23 History pioglitazone 15 mg tablet 15 mg PO QAM 09/11/21 10/31/23 History cholecalciferol (vitamin D3) 50 50 mcg PO DAILY 09/22/23 10/31/23 History mcg (2,000 unit) tablet (Vitamin D3) colchicine 0.6 mg tablet (Colcrys) 0.6 mg PO BID PRN Gout Flare 09/22/23 10/31/23 History levothyroxine 200 mcg tablet 200 mcg PO QAM 09/22/23 10/31/23 History ondansetron 4 mg disintegrating 4 mg translingual Q6 PRN 09/24/23 10/31/23 History tablet NAUSEA/VOMITING acetaminophen 325 mg tablet 325 mg PO Q6 10/09/23 10/31/23 History acetaminophen 500 mg tablet 500 mg PO Q6H 10/09/23 10/31/23 History docusate sodium 100 mg capsule 100 mg PO BID 10/09/23 10/31/23 History oxycodone 5 mg tablet 5 mg PO Q6H PRN pain #30 tabs 10/10/23 10/31/23 Rx duloxetine 30 mg capsule,delayed 30 mg PO DAILY 10/31/23 10/31/23 History release tizanidine 4 mg tablet 4 mg PO Q8H 10/31/23 10/31/23 History Past Med/Surg History Problem List (Updated 11/01/23 @ 09:57 by Timothy Herr DO) Lumbar compression fracture Gout Sacroiliitis Intractable back pain (Acute) Neurogenic claudication due to lumbar spinal stenosis Morbid obesity Neuroforaminal stenosis of lumbar spine (Acute) Hypothyroidism HLD (hyperlipidemia) HTN (hypertension) T2DM (type 2 diabetes mellitus) Medical History 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 Muscle spasm severe History of COVID-19 03/2022- mild symptoms Lumbar disc herniation with radiculopathy Surgical History Hx of bilateral cataract extraction History of lumbar spinal fusion 01/21/2023 [facility] L2-L4 decompression/fusion (09/14/21): Grade view 1, Garcia#2, ETT 7.0 at [facility] Nausea and vomiting after administration of anesthetic agent states scopolamine patch worked very well after last procedure Hx of dilation and curettage Hx of arthroscopy of left knee meniscus injury Hx of cholecystectomy Hx of tonsillectomy History of x2 History of total knee replacement Left 2012, Right 2006 Family History Mother Sclerosing cholangitis Father Alcohol use disorder Social History Smoking Status: Never smoker Second Hand Exposure: No; Do You Dip or Chew Tobacco: No; Hx Alcohol Use: No Hx Substance Use: No Preferred Language: Congolese Communication Ability: Effective Manager Of Distribution Required: No Beliefs That Will Affect Care: None marital status: Current Living Situation: Spouse Current Living Situation Comment: Home with current occupational status: retired Other Information That Helps Us Care for You: No Feels Safe at Home: Yes Safety Concerns: Feels Safe At This Time Assistive Devices: Cane Physical Exam Physical Exam: On exam she exhibits plus 5 out of 5 bilateral plantarflexion dorsiflexion quadriceps. Sensory symmetric and intact. She is able to logroll with some discomfort demonstrating well-healed healing incision in the lumbar spine. She does have tenderness palpation of the thoracolumbar junction. She is unable to sit up without excruciating pain. Results & Data Results & Data Vital Signs (Past 12 Hours) Vital Signs Temp Pulse Resp BP Pulse Ox O2 Del Method 11/01/23 07:35 36.4 C L 70 16 110/64 93 Room Air Code Status & VTE Plan VTE Prophylaxis Plan VTE Prophylaxis will be ordered: Yes
--- NOTE | 2023-11-01 11:34 | Hospitalist Progress Note ---
<Statement entered by Kal Jay DO - 11/01/23 13:11> I have seen and examined the patient and have discussed the case with the provider above. I have reviewed the advanced practitioner's documentation, and I agree with, and take responsibility for that plan of care. 12 minutes spent in examination with patient and coordination of care Patient states pain is fairly well-controlled. at bedside. Reports they are anticipating kyphoplasty on Saturday. Plan of care as outlined below Date of Service November 01, 2023 Assessment & Plan (1) Intractable back pain: (2) T2DM (type 2 diabetes mellitus): (3) HTN (hypertension): (4) HLD (hyperlipidemia): (5) Hypothyroidism: Plan This is a 73yo F with a PMH of hypothyroidism, dyslipidemia, HTN, obesity, history of spinal surgeries who presents with intractable back pain and was foun d to have an L1 compression fracture. Intractable back pain Hx of multiple lumbosacral spine surgery S/p R SI joint revision, on 09/25/[address] Herr Initially discharged to rehab, then re admitted for pain control 10/08- and discharged back to [facility] Sent over from ortho clinic today due to worsening R lower back pain L-spine MRI ordered by Dr. Herr - no significant disc disease or stenosis from L1-S1. However, L1 vertebral body compression fracture noted Dr. Herr evaluated - planning for possible kyphoplasty of L1 vertebral body on Saturday, 11/03 Pain control, continue bowel regimen Grayson placed yesterday for limited mobility and urinary retention - plan to remove postop PT / OT recs when able T2DM: on pioglitazone, a1c 6.4 in may, hold actos, NovoLog per protocol HTN: chronic, stable, hold hctz perioperatively, resume as able HLD: chronic stable on colesevelam Hypothyroidism: Chronic, stable continue levothyroxine, TSH 6.4 but Free T4 1.34 DVT ppx: will add SQ lovenox over the weekend for DVT ppx, last done on 11/02 anticipating OR Saturday Code: FULL CODE PCP: Jadyn Johnson DO Dispo: admitted to medical, will need PT/OT recs when able Care coordinated with Dr. Jay. I spent a total of 40 minutes coordinating, documenting, and providing care for this patient excluding time spent in the performance of separately billed services. Thank you for this consultation. We will follow the patient with you during their hospital stay. You can reach a member of the [facility] Hospitalist Team 17/09 via [employer]. Admission and Anticipated Discharge Date Admission Date: October 31, 2023 Subjective Seen and examined in 309. Was admitted from orthopedic office yesterday due to worsening right sided lower back pain over the past week. Also associated with some difficulty urinating. However patient denies any pain extending to right lower extremity. No paresthesias or weakness. [place] better overnight until she sat up to eat breakfast this morning and pain recurred. Received as needed dose of IV Dilaudid from nursing. Otherwise feeling well. Denies any lightheadedness, headache, fever, chills, chest pain, shortness of breath, nausea, vomiting, abdominal pain, dysuria or diarrhea. No bowel movement in the past 2 days, requesting additional bowel regimen. Review of Systems Review of Systems: At least ten systems reviewed and negative except as noted in the HPI. Physical Exam Physical Exam: Gen: WD/WN, NAD, resting in bed comfortably, A&Ox3 HEENT: Normocephalic, atraumatic, dry mucous membranes of oropharynx Lung: Clear to Auscultation bilaterally, no wheezes/rales/rhonchi Heart: Regular rate, regular rhythm, no murmurs, rubs, or gallops Abdomen: Soft, NT, ND +BS x 4 Extremities: TTP R lower back in lumbar region, no deformities noted, no BLE edema Skin: Warm, no rash Results & Data Results & Data Vital Signs (Past 12 Hours) Vital Signs Temp Pulse Resp BP Pulse Ox O2 Del Method 11/01/23 07:35 36.4 C L 70 16 110/64 93 Room Air Laboratory Results Short CBC 10/31/23 11/01/23 Range/Units 15:45 06:14 WBC 6.04 5.58 (4.8-10.8) K/ul Hgb 13.0 11.8 L (12.0-16.0) g/dl Hct 40.1 37.1 (37.0-47.0) % Plt Count 248 209 (130-400) K/uL BMP 10/31/23 11/01/23 15:45 06:14 Sodium 135 L 136 Potassium 3.8 3.6 Chloride 97 L 100 Carbon Dioxide 26 27 BUN 9 7 Creatinine 0.51 L 0.41 L Glucose 67 L 83 Calcium 9.1 8.3 L Liver Function 10/31/23 Range/Units 15:45 Total Bilirubin 0.4 (0.2-1.0) mg/dl AST 14 (13-39) U/L ALT 6 L (7-52) U/L Alkaline Phosphatase 116 H (34-104) U/L Albumin 3.1 L (3.4-5.0) gm/dl Diagnostic Findings Lumbar Spine MRI 10/31/23 14:59 Exam(s): MRI L SPINE Without Contrast EXAM: MR Lumbar Spine Without Intravenous Contrast CLINICAL HISTORY: Reason for exam: back pain. TECHNIQUE: Magnetic resonance images of the lumbar spine without intravenous contrast in multiple planes. COMPARISON: 09/11/2021 FINDINGS: Vertebrae: Postoperative changes L2-S1 interbody fusion. There is abnormal signal seen within the L1 vertebral body which is new when compared to prior exam. This demonstrated low signal on T1 weighted images and high signal on T2 and STIR-weighted images. There is perhaps 20% vertebral body height loss centered on the inferior endplate. No acute fracture. Spinal cord: Unremarkable. Normal signal. Soft tissues: Unremarkable. DISCS/SPINAL CANAL/NEURAL FORAMINA: L1-L2: Unremarkable. No significant disc disease. No stenosis. L2-L3: Unremarkable. No significant disc disease. No stenosis. L3-L4: Unremarkable. No significant disc disease. No stenosis. L4-L5: Unremarkable. No significant disc disease. No stenosis. L5-S1: Unremarkable. No significant disc disease. No stenosis. IMPRESSION: L1 vertebral body compression fracture resulting in 20% vertebral body height loss. 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
--- NOTE | 2023-11-01 12:22 | CT Scan Report ---
CT lumbar spine wo con HISTORY: 73 years-old Female back pain acute low back pain COMPARISON: MRI lumbar spine 10/31/2023 TECHNIQUE: Multiple axial CT images of the lumbar spine were obtained without IV contrast. A dose low ering technique was used consistent with the principals of ALARA. FINDINGS: Atherosclerosis of the aorta. Demineralized appearance of the bones. Posterior interbody elba and scre w fusion hardware with discectomy changes noted at L2-S1. Bilateral SI joint bulges. There is evidenc e of hardware loosening involving the L2 pedicle screws which extend through the superior endplate of L2, notably on the right. Acute fractures are noted involving the L1 and L2 vertebral bodies involvi ng the anterior and posterior columns. 7 mm retrolisthesis involving the L1 fracture. Fracture extend s into the left L1 pedicle. There is endplate irregularity at L1-L2 with moderate paravertebral edema . Suboptimal evaluation of the central canal and neural foramina by CT technique and also secondary t o streak artifact from the hardware. IMPRESSION: 1. Posterior interbody elba and screw fusion hardware with discectomy changes at L2-S1. There is evide nce of hardware loosening involving the L2 screws which extend into the superior endplate of L2. 2. L1 and L2 fractures redemonstrated with mild L1 retropulsion. Fractures at L1 extend into the left pedicle. These fractures may be posttraumatic, however the associated endplate irregularity is sugge stive of pathologic fracturing secondary to underlying acute discitis/osteomyelitis. 3. No drainable abscess identified. ACT 112: Negative or not required by law. The above report was generated using voice recognition software. It may contain grammatical, syntax o r spelling errors. Electronically signed by: Boyd Negrete M.D. 11/01/2023 12:21 PM
[2023-11-01] MEDS: bisacodyL 10 MG SUPP PR STA (12:35)
[2023-11-01] MEDS: ENOXAPARIN INJ 40 MG/0.4 ML SYR SQ SCH (12:43)
[2023-11-01] MEDS ORDERED: oxyCODONE HCL IR 5 MG TAB (IMMEDIATE RELEASE) PO PRN (13:33)
[2023-11-01] MEDS: LACTATED RINGER'S 1,000 ML IV SCH (13:50)
[2023-11-01] MEDS: ACETAMINOPHEN 500 MG TAB PO PRN (16:42)
[2023-11-01] MEDS: COLESEVELAM HCL PO SCH (17:54)
[2023-11-01 18:39] LABS: Appearance Urine Turbid (Clear); Bilirubin Urine 2+ (Negative); Blood Urine Trace-intact (Negative); Color Urine Yellow; Glucose Urine UA Negative (Negative); Ketones Urine 3+ (Negative); Leukocyte Esterase Urine Trace (Negative); Nitrite Urine Negative (Negative); Protein Urine 1+ (Negative); Specific Gravity Urine 1.025 (1.000-1.030); Urobilinogen Urine Negative (Negative); pH Urine 5.5 (4.5-7.5)
[2023-11-01 18:56] LABS: Epithelial Cell Urine Auto 0-2 /lpf (0-5); Mucus Urine Present (None Prsent)
[2023-11-01 18:57] LABS: Amorphous Sediment Urine Present (None Prsent)
[2023-11-01 18:58] LABS: Bacteria Urine Automated 1+ (Negative)
[2023-11-01] MEDS: oxyCODONE HCL IR 5 MG TAB (IMMEDIATE RELEASE) PO PRN (21:39)
[2023-11-02 06:35] LABS: Hematocrit (blood only) 36.1 % (37.0-47.0); Hemoglobin 11.8 g/dl (12.0-16.0); Mean Corpuscular Hemoglobin 28.6 pg (25.0-34.0); Mean Corpuscular Hgb Conc 32.7 g/dL (32.0-36.0); Mean Corpuscular Volume 87.4 fL (80.0-100.0); Mean Platelet Volume 12.3 fL (9.4-12.4); Platelet Count 215 K/uL (130-400); RDW Coefficient of Variation 15.7 % (11.5-14.5); RDW Standard Deviation 49.8 fL (36.4-46.3); Red Blood Count 4.13 M/uL (4.20-5.40); White Blood Count 5.48 K/ul (4.8-10.8)
[2023-11-02 06:54] LABS: BUN Creatinine Ratio 9.3 (10-20); Calcium 8.2 mg/dl (8.6-10.3); Creatinine Clr Calc Pharmacy 133.4 ml/min; Est GFR (African American) 118.6 ml/min; Est GFR (Non-African American) 102.3 ml/min; Potassium 3.7 mmol/L (3.5-5.1)
--- NOTE | 2023-11-02 08:47 | Orthopedic Progress Note ---
Date of Service November 02, 2023 Assessment & Plan (1) Lumbar compression fracture: Plan: At this time we are planning for an L1 kyphoplasty on Saturday. This may also include hardware removal and kyphoplasty of L2. Will have her undergo a fleets enema today to help with her bowels. Admission and Anticipated Discharge Date Admission Date: October 31, 2023 Subjective Back pain controlled at rest. Still struggling significant with sitting up. Logrolling is tolerable. She denies any leg pain. Physical Exam Physical Exam: On exam neurologically she is intact. She is comfortable at this time. Results & Data Vital Signs (Past 12 Hours) Vital Signs Temp Pulse Resp BP Pulse Ox O2 Del Method 11/02/23 07:33 36.6 C 64 16 113/71 95 Room Air Queries Orthopedic Spine Obesity: Yes Vertebral Fracture Secondary to Osteoporosis: Yes
[2023-11-02] MEDS: SOD PHOSPHATE/SOD BIPHOSPHATE ENEMA 132 ML BTL PR STA (09:26)
[2023-11-02] MEDS: ONDANSETRON 4 MG OD TAB PO PRN (14:45)
--- NOTE | 2023-11-02 15:49 | Hospitalist Progress Note ---
Date of Service November 02, 2023 Assessment & Plan (1) Intractable back pain: (2) T2DM (type 2 diabetes mellitus): (3) HTN (hypertension): (4) HLD (hyperlipidemia): (5) Hypothyroidism: Plan This is a 73yo F with a PMH of hypothyroidism, dyslipidemia, HTN, obesity, history of spinal surgeries who presents with intractable back pain and was found to have an L1 compression fracture. Intractable back pain Hx of multiple lumbosacral spine surgery S/p R SI joint revision, on 09/25/[address] Herr Initially discharged to rehab, then re admitted for pain control 10/08- and discharged back to [facility] Sent over from ortho clinic today due to worsening R lower back pain L-spine MRI ordered by Dr. Herr - no significant disc disease or stenosis from L1-S1. However, L1 vertebral body compression fracture noted Dr. Herr evaluated - planning for possible kyphoplasty of L1 vertebral body on Saturday, 11/03 Pain control, continue bowel regimen Grayson placed yesterday for limited mobility and urinary retention - plan to remove postop PT / OT recs when able Remains medically stable with unremarkable labs Will have surgery as planned on T2DM: on pioglitazone, a1c 6.4 in may, hold actos, NovoLog per protocol Blood sugar is maintained HTN: Chronic, stable, hold hctz perioperatively, resume as able HLD: Chronic stable on colesevelam Hypothyroidism: Chronic, stable continue levothyroxine, TSH 6.4 but Free T4 1.34 DVT ppx: will add SQ lovenox over the weekend for DVT ppx, last done on 11/02 anticipating OR Saturday Code: FULL CODE PCP: Jadyn Johnson DO Dispo: admitted to medical, will need PT/OT recs when able Admission and Anticipated Discharge Date Admission Date: October 31, 2023 Subjective 11/02/2023 Patient was seen and examined for Complaining of pain in the back with some radiation of pain Plan for kyphoplasty on Review of Systems Review of Systems: All systems reviewed and are unremarkable except as noted below Physical Exam Physical Exam: lying in bed comfortably Constitutional: well developed, well nourished, + ill appearing and + obese Eyes: PERRL, conjunctivae normal, anicteric sclerae ENMT: external ear and nose normal, oropharynx normal Neck: trachea midline, no thyromegaly Respiratory: no respiratory distress Auscultation: lungs clear to auscultation bilaterally Cardiovascular: Rate/Rhythm: regular rate and regular rhythm; not tachycardic Heart Sounds: normal S1 and normal S2; no murmur Extremities: no edema Gastrointestinal (Abdomen): Inspection/Auscultation: normal bowel sounds; abdomen not distended Percussion/Palpation: abdomen soft; abdomen nontender Musculoskeletal: No acute arthritis involving any of the joints Neurologic: normal touch/pain/proprioception and moves all extremities; no focal motor deficits Psychiatric: A+Ox3, euthymic affect Lymphatic: no cervical or axillary lymphadenopathy Results & Data Results & Data Vital Signs (Past 12 Hours) Vital Signs Temp Pulse Pulse Resp BP BP Pulse Ox 11/02/23 14:22 36.8 C 72 16 118/70 95 11/02/23 07:33 36.6 C 64 16 113/71 95 O2 Del Method 11/02/23 14:22 Room Air 11/02/23 07:33 Room Air Laboratory Results Short CBC 11/02/23 Range/Units 06:08 WBC 5.48 (4.8-10.8) K/ul Hgb 11.8 L (12.0-16.0) g/dl Hct 36.1 L (37.0-47.0) % Plt Count 215 (130-400) K/uL BMP 11/02/23 06:08 Sodium 137 Potassium 3.7 Chloride 99 Carbon Dioxide 27 BUN 4 L Creatinine 0.43 L Glucose 103 H Calcium 8.2 L Urine 11/01/23 Range/Units Unknown Urine Color Yellow Urine Appearance Turbid A (Clear) Urine pH 5.5 (4.5-7.5) Ur Specific Barto 1.025 (1.000-1.030) Urine Protein 1+ H (Negative) Urine Glucose (UA) Negative (Negative) Medications Administered Current Inpatient Medications Acetaminophen (Acetaminophen 500 Mg Tab) 1,000 mg PO Q8H PRN PRN Reason: MILD Pain Scale 1,2,3 & Pre PT Stop: 11/30/23 14:58 Last Admin: 11/01/23 16:42 Dose: 1,000 mg Colchicine (Colchicine 0.6 Mg Tab) 0.6 mg PO BID PRN PRN Reason: Gout Flare Stop: 11/30/23 15:02 Colesevelam HCl (Colesevelam Hcl) 1 each PO BIDM [facility] Stop: 12/01/23 16:59 Last Admin: 11/02/23 08:26 Dose: 1 each Cyclobenzaprine HCl (Cyclobenzaprine Hcl 10 Mg Tab) 10 mg PO Q8 PRN PRN Reason: Muscle Spasm Stop: 11/30/23 21:59 Dextrose (Dextrose 50% 50 Ml Syringe) 25 - 50 ml IV UD PRN; Protocol PRN Reason: Hypoglycemia Protocol Stop: 11/30/23 15:44 Duloxetine HCl (Duloxetine Hcl 30 Mg Cap) 30 mg PO DAILY [facility] Stop: 12/01/23 08:59 Last Admin: 11/02/23 08:27 Dose: 30 mg Enoxaparin Sodium (Enoxaparin Inj 40 Mg/0.4 Ml Syr) 40 mg SQ QAM [facility] Stop: 11/03/23 11:44 Last Admin: 11/02/23 09:25 Dose: 40 mg Glucagon (Glucagon For Inj 1 Mg Vial) 1 mg SQ UD PRN; Protocol PRN Reason: Hypoglycemia Protocol Stop: 11/30/23 15:44 Glucose (Glucose 40% Gel 15 Gm Tube) 15 - 30 gm PO UD PRN; Protocol PRN Reason: Hypoglycemia Protocol Stop: 11/30/23 15:44 Glucose (Glucose 10 Tab/Tube) 4 - 8 tab PO UD PRN; Protocol PRN Reason: Hypoglycemia Treatment Stop: 11/30/23 15:44 Hydromorphone HCl (Hydromorphone Inj 0.5 Mg/0.5 Ml Syr) 0.5 mg IV Q3H PRN PRN Reason: MOD pain (scale 4-6) & Pre PT Stop: 11/14/23 14:58 Hydromorphone HCl (Hydromorphone Inj 1 Mg/Ml Syringe) 1 mg IV Q3H PRN PRN Reason: severe pain (scale 7-10) Stop: 11/14/23 14:58 Last Admin: 11/01/23 08:40 Dose: 1 mg Promethazine HCl (Phenergan) 12.5 mg in 50.5 mls @ 202 mls/hr IV Q6H PRN PRN Reason: Nausea And Vomiting Stop: 11/30/23 14:58 Insulin Aspart (Insulin Aspart Per Unit Charge) 0 units SC ACHS [facility] Stop: 11/30/23 16:29 Last Admin: 11/02/23 12:53 Dose: Not Given Levothyroxine Sodium (Levothyroxine Sodium 200 Mcg Tablet) 200 mcg PO DAILYBB [facility] Stop: 12/01/23 06:29 Last Admin: 11/02/23 06:11 Dose: 200 mcg Lidocaine (Lidocaine 5% 1 Patch) 1 patch TD DAILY [facility] Stop: 12/01/23 08:59 Last Admin: 11/02/23 08:27 Dose: Not Given Lorazepam (Lorazepam 0.5 Mg Tab) 0.5 mg PO Q8H PRN PRN Reason: sedation/anxiety Stop: 11/30/23 14:58 Lorazepam (Lorazepam 2 Mg/1 Ml Vial) 0.5 mg IV Q8H PRN PRN Reason: Sedation/Anxiety Stop: 11/30/23 14:58 Metoclopramide HCl (Metoclopramide Hcl Inj 5 Mg/Ml 2 Ml Vial) 10 mg IV Q6H PRN PRN Reason: Nausea &/or Vomiting Stop: 11/30/23 14:58 Miscellaneous (Carbohydrates For Hypoglycemia ) 15 - 30 gm PO UD PRN PRN Reason: Hypoglycemia Protocol Stop: 11/30/23 15:44 Naloxone HCl (Naloxone Hcl 0.4 Mg/1 Ml Vial/Carp) 0.1 mg IV Q5M PRN PRN Reason: Oversedation/respiratory dep Stop: 11/30/23 14:58 Ondansetron HCl (Ondansetron Inj 2 Mg/Ml 2 Ml Vial) 4 mg IV Q6H PRN PRN Reason: Nausea &/or Vomiting Stop: 11/30/23 14:58 Last Admin: 11/02/23 08:25 Dose: 4 mg Ondansetron HCl (Ondansetron 4 Mg Od Tab) 4 mg PO Q6H PRN PRN Reason: Nausea Stop: 11/30/23 14:58 Last Admin: 11/02/23 14:45 Dose: 4 mg Oxycodone HCl (Oxycodone Hcl Ir 5 Mg Tab (Immediate Release)) 5 mg PO Q6H PRN PRN Reason: Moderate Pain (Scale 4, 5, 6) Stop: 11/15/23 16:38 Last Admin: 11/02/23 14:47 Dose: 5 mg Tizanidine HCl (Tizanidine Hcl 4 Mg Tablet) 4 mg PO Q8H [facility] Stop: 11/30/23 16:59 Last Admin: 11/02/23 08:27 Dose: 4 mg (2) T2DM (type 2 diabetes mellitus) Diabetes mellitus usp insulin use: without termination clerk use Diabetes mellitus complication status: without complication Qualified Code(s): E11.9 - Type 2 diabetes mellitus without complications (3) HTN (hypertension) Hypertension type: unspecified Qualified Code(s): I10 - Essential (primary) hypertension (4) HLD (hyperlipidemia) Hyperlipidemia type: unspecified Qualified Code(s): E78.5 - Hyperlipidemia, unspecified (5) Hypothyroidism Hypothyroidism type: unspecified Qualified Code(s): E03.9 - Hypothyroidism, unspecified
[2023-11-02] MEDS: PROMETHAZINE 12.5 MG/50.5 ML BAG IV PRN (17:41)
[2023-11-02] MEDS: METOCLOPRAMIDE HCL INJ 5 MG/ML 2 ML VIAL IV PRN (19:56)
--- NOTE | 2023-11-03 10:12 | Orthopedic Progress Note ---
Date of Service November 03, 2023 Assessment & Plan (1) Lumbar compression fracture: Plan: Patient will be made n.p.o. after midnight. Will plan for kyphoplasty of L1 possible hardware removal and kyphoplasty of L2. Admission and Anticipated Discharge Date Admission Date: October 31, 2023 Subjective Patient resting comfortably. Physical Exam Physical Exam: Unchanged. Results & Data Vital Signs (Past 12 Hours) Vital Signs Temp Pulse Resp BP Pulse Ox O2 Del Method 11/03/23 07:43 36.6 C 78 16 121/67 93 Room Air Queries Orthopedic Spine Obesity: Yes Vertebral Fracture Secondary to Osteoporosis: Yes
--- NOTE | 2023-11-03 14:09 | Hospitalist Progress Note ---
Date of Service November 03, 2023 Assessment & Plan (1) Intractable back pain: (2) T2DM (type 2 diabetes mellitus): (3) HTN (hypertension): (4) HLD (hyperlipidemia): (5) Hypothyroidism: Plan This is a 73yo F with a PMH of hypothyroidism, dyslipidemia, HTN, obesity, history of spinal surgeries who presents with intractable back pain and was found to have an L1 compression fracture. Intractable back pain Hx of multiple lumbosacral spine surgery S/p R SI joint revision, on 09/25/[address] Herr Initially discharged to rehab, then re admitted for pain control 10/08- and discharged back to [facility] Sent over from ortho clinic today due to worsening R lower back pain L-spine MRI ordered by Dr. Herr - no significant disc disease or stenosis from L1-S1. However, L1 vertebral body compression fracture noted Dr. Herr evaluated - planning for possible kyphoplasty of L1 vertebral body on Saturday, 11/03 Pain control, continue bowel regimen Grayson placed yesterday for limited mobility and urinary retention - plan to remove postop PT / OT recs when able Remains medically stable with unremarkable labs Will have surgery as planned on Remains medically stable and no contraindication for proposed surgery Will monitor labs after the surgery T2DM: on pioglitazone, a1c 6.4 in may, hold actos, NovoLog per protocol Blood sugar is maintained HTN: Chronic, stable, hold hctz perioperatively, resume as able Blood pressure remains stable on current medications HLD: Chronic stable on colesevelam Hypothyroidism: Chronic, stable continue levothyroxine, TSH 6.4 but Free T4 1.34 DVT ppx: will add SQ lovenox over the weekend for DVT ppx, last done on 11/02 anticipating OR Saturday Code: FULL CODE PCP: Jadyn Johnson DO Dispo: admitted to medical, will need PT/OT recs when able Admission and Anticipated Discharge Date Admission Date: October 31, 2023 Subjective 11/02/2023 Patient was seen and examined in medical floor Complaining of pain in the back with some radiation of pain Plan for kyphoplasty on 11/03/2023 The patient was seen and examined in medical floor She has been complaining of pain at the back without radiation Wants to try Tylenol more than oxycodone Review of Systems Review of Systems: All systems reviewed and are unremarkable except as noted below Physical Exam Physical Exam: lying in bed comfortably Constitutional: well developed, well nourished, + ill appearing and + obese Eyes: PERRL, conjunctivae normal, anicteric sclerae ENMT: external ear and nose normal, oropharynx normal Neck: trachea midline, no thyromegaly Respiratory: no respiratory distress Auscultation: lungs clear to a uscultation bilaterally Cardiovascular: Rate/Rhythm: regular rate and regular rhythm; not tachycardic Heart Sounds: normal S1 and normal S2; no murmur Extremities: no edema Gastrointestinal (Abdomen): Inspection/Auscultation: normal bowel sounds; abdomen not distended Percussion/Palpation: abdomen soft; abdomen nontender Neurologic: normal touch/pain/proprioception and moves all extremities; no focal motor deficits Psychiatric: A+Ox3, euthymic affect Lymphatic: no cervical or axillary lymphadenopathy Results & Data Results & Data Vital Signs (Past 12 Hours) Vital Signs Temp Pulse Resp BP Pulse Ox O2 Del Method 11/03/23 07:43 36.6 C 78 16 121/67 93 Room Air Medications Administered Current Inpatient Medications Acetaminophen (Acetaminophen 500 Mg Tab) 1,000 mg PO Q8H PRN PRN Reason: MILD Pain Scale 1,2,3 & Pre PT Stop: 11/30/23 14:58 Last Admin: 11/03/23 11:52 Dose: 1,000 mg Colchicine (Colchicine 0.6 Mg Tab) 0.6 mg PO BID PRN PRN Reason: Gout Flare Stop: 11/30/23 15:02 Colesevelam HCl (Colesevelam Hcl) 1 each PO BIDM FERNY Stop: 12/01/23 16:59 Last Admin: 11/03/23 08:21 Dose: 1 each Cyclobenzaprine HCl (Cyclobenzaprine Hcl 10 Mg Tab) 10 mg PO Q8 PRN PRN Reason: Muscle Spasm Stop: 11/30/23 21:59 Dextrose (Dextrose 50% 50 Ml Syringe) 25 - 50 ml IV UD PRN; Protocol PRN Reason: Hypoglycemia Protocol Stop: 11/30/23 15:44 Duloxetine HCl (Duloxetine Hcl 30 Mg Cap) 30 mg PO DAILY FERNY Stop: 12/01/23 08:59 Last Admin: 11/03/23 08:22 Dose: 30 mg Glucagon (Glucagon For Inj 1 Mg Vial) 1 mg SQ UD PRN; Protocol PRN Reason: Hypoglycemia Protocol Stop: 11/30/23 15:44 Glucose (Glucose 40% Gel 15 Gm Tube) 15 - 30 gm PO UD PRN; Protocol PRN Reason: Hypoglycemia Protocol Stop: 11/30/23 15:44 Glucose (Glucose 10 Tab/Tube) 4 - 8 tab PO UD PRN; Protocol PRN Reason: Hypoglycemia Treatment Stop: 11/30/23 15:44 Hydromorphone HCl (Hydromorphone Inj 0.5 Mg/0.5 Ml Syr) 0.5 mg IV Q3H PRN PRN Reason: MOD pain (scale 4-6) & Pre PT Stop: 11/14/23 14:58 Hydromorphone HCl (Hydromorphone Inj 1 Mg/Ml Syringe) 1 mg IV Q3H PRN PRN Reason: severe pain (scale 7-10) Stop: 11/14/23 14:58 Last Admin: 11/01/23 08:40 Dose: 1 mg Promethazine HCl (Phenergan) 12.5 mg in 50.5 mls @ 202 mls/hr IV Q6H PRN PRN Reason: Nausea And Vomiting Stop: 11/30/23 14:58 Last Infusion: 11/02/23 18:06 Dose: Infused Insulin Aspart (Insulin Aspart Per Unit Charge) 0 units SC ACHS [facility] Stop: 11/30/23 16:29 Last Admin: 11/03/23 12:37 Dose: Not Given Levothyroxine Sodium (Levothyroxine Sodium 200 Mcg Tablet) 200 mcg PO DAILYBB [facility] Stop: 12/01/23 06:29 Last Admin: 11/03/23 05:38 Dose: 200 mcg Lidocaine (Lidocaine 5% 1 Patch) 1 patch TD DAILY FERNY Stop: 12/01/23 08:59 Last Admin: 11/03/23 08:21 Dose: Not Given Lorazepam (Lorazepam 0.5 Mg Tab) 0.5 mg PO Q8H PRN PRN Reason: sedation/anxiety Stop: 11/30/23 14:58 Lorazepam (Lorazepam 2 Mg/1 Ml Vial) 0.5 mg IV Q8H PRN PRN Reason: Sedation/Anxiety Stop: 11/30/23 14:58 Metoclopramide HCl (Metoclopramide Hcl Inj 5 Mg/Ml 2 Ml Vial) 10 mg IV Q6H PRN PRN Reason: Nausea &/or Vomiting Stop: 11/30/23 14:58 Last Admin: 11/02/23 19:56 Dose: 10 mg Miscellaneous (Carbohydrates For Hypoglycemia ) 15 - 30 gm PO UD PRN PRN Reason: Hypoglycemia Protocol Stop: 11/30/23 15:44 Naloxone HCl (Naloxone Hcl 0.4 Mg/1 Ml Vial/Carp) 0.1 mg IV Q5M PRN PRN Reason: Oversedation/respiratory dep Stop: 11/30/23 14:58 Ondansetron HCl (Ondansetron Inj 2 Mg/Ml 2 Ml Vial) 4 mg IV Q6H PRN PRN Reason: Nausea &/or Vomiting Stop: 11/30/23 14:58 Last Admin: 11/02/23 22:54 Dose: 4 mg Ondansetron HCl (Ondansetron 4 Mg Od Tab) 4 mg PO Q6H PRN PRN Reason: Nausea Stop: 11/30/23 14:58 Last Admin: 11/02/23 14:45 Dose: 4 mg Oxycodone HCl (Oxycodone Hcl Ir 5 Mg Tab (Immediate Release)) 5 mg PO Q6H PRN PRN Reason: Moderate Pain (Scale 4, 5, 6) Stop: 11/15/23 16:38 Last Admin: 11/02/23 14:47 Dose: 5 mg Tizanidine HCl (Tizanidine Hcl 4 Mg Tablet) 4 mg PO Q8H FERNY Stop: 11/30/23 16:59 Last Admin: 11/03/23 08:22 Dose: 4 mg (2) T2DM (type 2 diabetes mellitus) Diabetes mellitus detention insulin use: without detention use Diabetes mellitus complication status: without complication Qualified Code(s): E11.9 - Type 2 diabetes mellitus without complications (3) HTN (hypertension) Hypertension type: unspecified Qualified Code(s): I10 - Essential (primary) hypertension (4) HLD (hyperlipidemia) Hyperlipidemia type: unspecified Qualified Code(s): E78.5 - Hyperlipidemia, unspecified (5) Hypothyroidism Hypothyroidism type: unspecified Qualified Code(s): E03.9 - Hypothyroidism, unspecified
[2023-11-04] MEDS ORDERED: Nursing to Pharmacy Communication SCH (00:30)
[2023-11-04] MEDS: INSULIN ASPART PER UNIT CHARGE SC SCH ×2 (06:06→16:55)
[2023-11-04 06:17] LABS: Creatinine Clr Calc Pharmacy 124.7 ml/min; Est GFR (Non-African American) 100.1 ml/min
[2023-11-04] MEDS ORDERED: DEXAMETHASONE SOD INJ 4 MG/ML VIAL ONE (08:50)
[2023-11-04] MEDS ORDERED: PROPOFOL IV EMULSION 10 MG/ML 20 ML VIAL IV ONE (08:50)
[2023-11-04] MEDS ORDERED: MIDAZOLAM HCL 1 MG/ML 2ML VIAL ONE (08:50)
[2023-11-04] MEDS ORDERED: fentaNYL citrate PF 100 MCG/2 ML VIAL ONE ×3 (08:50→12:55)
[2023-11-04] MEDS ORDERED: ROCURONIUM BROMIDE 10 MG/ML 5 ML VIAL IV ONE (08:50)
[2023-11-04] MEDS ORDERED: ONDANSETRON INJ 2 MG/ML 2 ML VIAL ONE ×2 (08:50→12:36)
[2023-11-04] MEDS ORDERED: LIDOCAINE 2% 2 ML VIAL/AMP(20MG/ML) INFIL ONE (08:50)
[2023-11-04] MEDS: LACTATED RINGER'S 1,000 ML IV SCH (10:17)
[2023-11-04] MEDS ORDERED: ePHEDrine sulfate 50 MG/ML AMP IV PRN ×2 (10:23→10:37)
[2023-11-04] MEDS ORDERED: PROMETHAZINE HCL 6.25 MG in SODIUM CHLORIDE 0.9% 50 ML IV PRN ×2 (10:23→10:37)
[2023-11-04] MEDS ORDERED: HYDROmorphone INJ 2 MG/ML SYR/VIAL IV PRN ×2 (10:23→10:37)
[2023-11-04] MEDS ORDERED: ATROPINE SULFATE 0.1 MG/ML 10ML SYR IV PRN ×2 (10:23→10:37)
--- NOTE | 2023-11-04 10:23 | Anesthesiology Consultation ---
Date of Service November 04, 2023 Assessment & Plan ASA ASA3 Proposed Anesthesia Anesthesia Type: General Risk / Benefits Reviewed With: PT / POA / Parent / Guardian, Accepts Plan and Informed Consent Obtained History Surgery Operation Date: 11/04/23 11:05 Proposed Procedures p L1 Kyphoplasty - Timothy Herr DO Height/Weight Height: 5 ft 5 in Weight: 90.5 kg Allergies Allergy/AdvReac Type Severity Reaction Status Date / Time Sulfa (Sulfonamide Allergy Intermediate Rash Verified 09/24/23 16:58 Antibiotics) tramadol Allergy Mild Verified 10/31/23 16:17 baclofen Allergy Verified 10/31/23 16:17 gabapentin AdvReac Severe Nightmare Verified 09/24/23 16:58 Medications Home Medications Medication Instructions Recorded Confirmed Last Taken colesevelam 625 mg tablet (WelChol) 1,250 mg PO BIDM 09/11/21 10/31/23 09/24/23 08:00 pioglitazone 15 mg tablet 15 mg PO QAM 09/11/21 10/31/23 09/24/23 cholecalciferol (vitamin D3) 50 50 mcg PO DAILY 09/22/23 10/31/23 09/24/23 mcg (2,000 unit) tablet (Vitamin D3) colchicine 0.6 mg tablet (Colcrys) 0.6 mg PO BID PRN Gout Flare 09/22/23 10/31/23 Unknown levothyroxine 200 mcg tablet 200 mcg PO QAM 09/22/23 10/31/23 09/24/23 ondansetron 4 mg disintegrating 4 mg translingual Q6 PRN 09/24/23 10/31/23 Unknown tablet NAUSEA/VOMITING acetaminophen 325 mg tablet 325 mg PO Q6 10/09/23 10/31/23 Unknown acetaminophen 500 mg tablet 500 mg PO Q6H 10/09/23 10/31/23 Unknown docusate sodium 100 mg capsule 100 mg PO BID 10/09/23 10/31/23 Unknown oxycodone 5 mg tablet 5 mg PO Q6H PRN pain #30 tabs 10/10/23 10/31/23 Unknown duloxetine 30 mg capsule,delayed 30 mg PO DAILY 10/31/23 10/31/23 Unknown release tizanidine 4 mg tablet 4 mg PO Q8H 10/31/23 10/31/23 Unknown Active Medications Generic Name Dose Route Start Last Admin Trade Name Freq PRN Reason Stop Dose Admin Acetaminophen 1,000 mg 10/31/23 14:59 11/04/23 07:27 Acetaminophen 500 Mg Tab PO 11/30/23 14:58 1,000 mg Q8H PRN Administration MILD Pain Scale 1,2,3 & Pre PT Colesevelam HCl 1 each 11/01/23 17:00 11/04/23 07:26 Colesevelam Hcl PO 12/01/23 16:59 Not Given BIDM FERNY Duloxetine HCl 30 mg 11/01/23 09:00 11/04/23 07:27 Duloxetine Hcl 30 Mg Cap PO 12/01/23 08:59 Not Given DAILY FERNY Hydromorphone HCl 1 mg 10/31/23 14:59 11/01/23 08:40 Hydromorphone Inj 1 Mg/Ml Syringe IV 11/14/23 14:58 1 mg Q3H PRN Administration severe pain (scale 7-10) Promethazine HCl 12.5 mg in 50.5 mls @ 202 mls/hr 10/31/23 14:59 11/03/23 20:54 Phenergan IV 11/30/23 14:58 Infused Q6H PRN Infusion Nausea And Vomiting Lactated Ringer's 1,000 mls @ 15 mls/hr 11/04/23 10:30 11/04/23 10:17 Lr IV 12/04/23 10:29 15 mls/hr .Q24H FERNY Administration Insulin Aspart 0 units 11/04/23 06:00 11/04/23 06:06 Insulin Aspart Per Unit Charge SC 12/04/23 05:59 Not Given Q6 FERNY Levothyroxine Sodium 200 mcg 11/01/23 06:30 11/04/23 05:41 Levothyroxine Sodium 200 Mcg Tablet PO 12/01/23 06:29 200 mcg DAILYBB FERNY Administration Lidocaine 1 patch 11/01/23 09:00 11/04/23 07:27 Lidocaine 5% 1 Patch TD 12/01/23 08:59 Not Given DAILY FERNY Metoclopramide HCl 10 mg 10/31/23 14:59 11/03/23 22:13 Metoclopramide Hcl Inj 5 Mg/Ml 2 Ml Vial IV 11/30/23 14:58 10 mg Q6H PRN Administration Nausea &/or Vomiting Ondansetron HCl 4 mg 10/31/23 14:59 11/03/23 19:09 Ondansetron Inj 2 Mg/Ml 2 Ml Vial IV 11/30/23 14:58 4 mg Q6H PRN Administration Nausea &/or Vomiting Ondansetron HCl 4 mg 10/31/23 14:59 11/02/23 14:45 Ondansetron 4 Mg Od Tab PO 11/30/23 14:58 4 mg Q6H PRN Administration Nausea Oxycodone HCl 5 mg 11/01/23 16:39 11/02/23 14:47 Oxycodone Hcl Ir 5 Mg Tab (Immediate Release) PO 11/15/23 16:38 5 mg Q6H PRN Administration Moderate Pain (Scale 4, 5, 6) Tizanidine HCl 4 mg 10/31/23 17:00 11/04/23 07:27 Tizanidine Hcl 4 Mg Tablet PO 11/30/23 16:59 4 mg Q8H FERNY Administration NPO Date Last Intake of Fluids: 11/03/23 Time Last Intake of Fluids: 23:00 Date Last Intake of Solids: 11/03/23 Time Last Intake of Solids: 23:00 Past Medical History Medical History 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 Muscle spasm severe History of COVID-19 03/2022- mild symptoms Lumbar disc herniation with radiculopathy Exercise / Class Metabolic Activity II 4-5 Yardwork/Stairs/Walk up hill Past Family History Family History Mother Sclerosing cholangitis Father Alcohol use disorder Past Surgical History Surgical History Hx of bilateral cataract extraction History of lumbar spinal fusion 01/21/2023 [facility] L2-L4 decompression/fusion (09/14/21): Grade view 1, Garcia#2, ETT 7.0 at [facility] Nausea and vomiting after administration of anesthetic agent states scopolamine patch worked very well after last procedure Hx of dilation and curettage Hx of arthroscopy of left knee meniscus injury Hx of cholecystectomy Hx of tonsillectomy History of x2 History of total knee replacement Left 2012, Right 2006 Past Anesthesia History No Hx of Anesthesia Complications and No Family Hx of Anesthesia Complications History of PONV No Hx of PONV and No Hx of Motion Sickness Social History Smoking Status: Never smoker Do You Dip or Chew Tobacco: No Hx Alcohol Use: No Hx Substance Use: No substance use type: does not use Physical Exam Vital Signs Last Vital Signs Temp 36.9 C 11/04/23 10:06 Pulse 82 11/04/23 10:06 Resp 20 11/04/23 10:06 BP 129/64 11/04/23 10:06 Pulse Ox 91 11/04/23 10:06 O2 Del Method Room Air 11/04/23 10:06 Constitutional no acute distress ENMT Mouth: no dentition abnormality Thyromental Distance: > or= 3.5 Finger Breadths Mallampati Class: III Neck normal visual inspection Respiratory normal respiratory effort; no respiratory distress Auscultation: lungs clear to auscultation bilaterally Cardiovascular Rate/Rhythm: regular rate and regular rhythm Heart Sounds: no murmur Musculoskeletal Spine: normal cervical ROM Psychiatric Orientation: alert and oriented x 3 Testing Laboratory Results 11/02/23 06:08 11/04/23 05:33 Hemoglobin A1c 6.5 % (4.5-5.6) H 11/01/23 06:14 Urine Color Yellow 11/01/23 Unknown Urine Appearance Turbid (Clear) A 11/01/23 Unknown Urine pH 5.5 (4.5-7.5) 11/01/23 Unknown Ur Specific Benedict 1.025 (1.000-1.030) 11/01/23 Unknown Urine Protein 1+ (Negative) H 11/01/23 Unknown Urine Glucose (UA) Negative (Negative) 11/01/23 Unknown Urine Ketones 3+ (Negative) H 11/01/23 Unknown Urine Nitrite Negative (Negative) 11/01/23 Unknown Ur Leukocyte Esterase Trace (Negative) H 11/01/23 Unknown Urine WBC (Auto) 6-10 /hpf (0-5) 11/01/23 Unknown Urine RBC (Auto) 6-10 /hpf (0-4) 11/01/23 Unknown U Epithel Cells (Auto) 0-2 /lpf (0-5) 11/01/23 Unknown Urine Bacteria (Auto) 1+ (Negative) H 11/01/23 Unknown Urine RBC Not Reportable 11/01/23 Unknown Urine WBC Not Reportable 11/01/23 Unknown Ur Epithelial Cells Not Reportable 11/01/23 Unknown 11/01/23 Unknown Urine Culture - Final Urine,Indwelling Cath No growth - less than 1,000 colonies/mL. 11/04/23 11/04/23 10:08 05:56 POC Glucose 94 101 H Day of Procedure Evaluation. Date of Surgery November 04, 2023 Height/Weight Height: 5 ft 5 in Weight: 90.5 kg Vital Signs Last Vital Signs Temp 36.9 C 11/04/23 10:06 Pulse 82 11/04/23 10:06 Resp 20 11/04/23 10:06 BP 129/64 11/04/23 10:06 Pulse Ox 91 11/04/23 10:06 O2 Del Method Room Air 11/04/23 10:06 Allergies Allergy/AdvReac Type Severity Reaction Status Date / Time Sulfa (Sulfonamide Allergy Intermediate Rash Verified 09/24/23 16:58 Antibiotics) tramadol Allergy Mild Verified 10/31/23 16:17 baclofen Allergy Verified 10/31/23 16:17 gabapentin AdvReac Severe Nightmare Verified 09/24/23 16:58 Medications Home Medications Medication Instructions Recorded Confirmed Last Taken colesevelam 625 mg tablet (WelChol) 1,250 mg PO BIDM 09/11/21 10/31/23 09/24/23 08:00 pioglitazone 15 mg tablet 15 mg PO QAM 09/11/21 10/31/23 09/24/23 cholecalciferol (vitamin D3) 50 50 mcg PO DAILY 09/22/23 10/31/23 09/24/23 mcg (2,000 unit) tablet (Vitamin D3) colchicine 0.6 mg tablet (Colcrys) 0.6 mg PO BID PRN Gout Flare 09/22/23 10/31/23 Unknown levothyroxine 200 mcg tablet 200 mcg PO QAM 09/22/23 10/31/23 09/24/23 ondansetron 4 mg disintegrating 4 mg translingual Q6 PRN 09/24/23 10/31/23 Unknown tablet NAUSEA/VOMITING acetaminophen 325 mg tablet 325 mg PO Q6 10/09/23 10/31/23 Unknown acetaminophen 500 mg tablet 500 mg PO Q6H 10/09/23 10/31/23 Unknown docusate sodium 100 mg capsule 100 mg PO BID 10/09/23 10/31/23 Unknown oxycodone 5 mg tablet 5 mg PO Q6H PRN pain #30 tabs 10/10/23 10/31/23 Unknown duloxetine 30 mg capsule,delayed 30 mg PO DAILY 10/31/23 10/31/23 Unknown release tizanidine 4 mg tablet 4 mg PO Q8H 10/31/23 10/31/23 Unknown Active Medications Generic Name Dose Route Start Last Admin Trade Name Freq PRN Reason Stop Dose Admin Acetaminophen 1,000 mg 10/31/23 14:59 11/04/23 07:27 Acetaminophen 500 Mg Tab PO 11/30/23 14:58 1,000 mg Q8H PRN Administration MILD Pain Scale 1,2,3 & Pre PT Colesevelam HCl 1 each 11/01/23 17:00 11/04/23 07:26 Colesevelam Hcl PO 12/01/23 16:59 Not Given BIDM FERNY Duloxetine HCl 30 mg 11/01/23 09:00 11/04/23 07:27 Duloxetine Hcl 30 Mg Cap PO 12/01/23 08:59 Not Given DAILY FERNY Hydromorphone HCl 1 mg 10/31/23 14:59 11/01/23 08:40 Hydromorphone Inj 1 Mg/Ml Syringe IV 11/14/23 14:58 1 mg Q3H PRN Administration severe pain (scale 7-10) Promethazine HCl 12.5 mg in 50.5 mls @ 202 mls/hr 10/31/23 14:59 11/03/23 20:54 Phenergan IV 11/30/23 14:58 Infused Q6H PRN Infusion Nausea And Vomiting Lactated Ringer's 1,000 mls @ 15 mls/hr 11/04/23 10:30 11/04/23 10:17 Lr IV 12/04/23 10:29 15 mls/hr .Q24H FERNY Administration Insulin Aspart 0 units 11/04/23 06:00 11/04/23 06:06 Insulin Aspart Per Unit Charge SC 12/04/23 05:59 Not Given Q6 FERNY Levothyroxine Sodium 200 mcg 11/01/23 06:30 11/04/23 05:41 Levothyroxine Sodium 200 Mcg Tablet PO 12/01/23 06:29 200 mcg DAILYBB FERNY Administration Lidocaine 1 patch 11/01/23 09:00 11/04/23 07:27 Lidocaine 5% 1 Patch TD 12/01/23 08:59 Not Given DAILY FERNY Metoclopramide HCl 10 mg 10/31/23 14:59 11/03/23 22:13 Metoclopramide Hcl Inj 5 Mg/Ml 2 Ml Vial IV 11/30/23 14:58 10 mg Q6H PRN Administration Nausea &/or Vomiting Ondansetron HCl 4 mg 10/31/23 14:59 11/03/23 19:09 Ondansetron Inj 2 Mg/Ml 2 Ml Vial IV 11/30/23 14:58 4 mg Q6H PRN Administration Nausea &/or Vomiting Ondansetron HCl 4 mg 10/31/23 14:59 11/02/23 14:45 Ondansetron 4 Mg Od Tab PO 11/30/23 14:58 4 mg Q6H PRN Administration Nausea Oxycodone HCl 5 mg 11/01/23 16:39 11/02/23 14:47 Oxycodone Hcl Ir 5 Mg Tab (Immediate Release) PO 11/15/23 16:38 5 mg Q6H PRN Administration Moderate Pain (Scale 4, 5, 6) Tizanidine HCl 4 mg 10/31/23 17:00 11/04/23 07:27 Tizanidine Hcl 4 Mg Tablet PO 11/30/23 16:59 4 mg Q8H FERNY Administration Past Anesthesia History No Hx of Anesthesia Complications and No Family Hx of Anesthesia Complications History of PONV No Hx of PONV and No Hx of Motion Sickness NPO Date Last Intake of Fluids: 11/03/23 Time Last Intake of Fluids: 23:00 Date Last Intake of Solids: 11/03/23 Time Last Intake of Solids: 23:00 HCG & FBG Results 11/04/23 11/04/23 10:08 05:56 POC Glucose 94 101 H Home Medications Home Medications Medication Instructions Recorded Confirmed Last Taken colesevelam 625 mg tablet (WelChol) 1,250 mg PO BIDM 09/11/21 10/31/23 09/24/23 08:00 pioglitazone 15 mg tablet 15 mg PO QAM 09/11/21 10/31/23 09/24/23 cholecalciferol (vitamin D3) 50 50 mcg PO DAILY 09/22/23 10/31/23 09/24/23 mcg (2,000 unit) tablet (Vitamin D3) colchicine 0.6 mg tablet (Colcrys) 0.6 mg PO BID PRN Gout Flare 09/22/23 10/31/23 Unknown levothyroxine 200 mcg tablet 200 mcg PO QAM 09/22/23 10/31/23 09/24/23 ondansetron 4 mg disintegrating 4 mg translingual Q6 PRN 09/24/23 10/31/23 Unknown tablet NAUSEA/VOMITING acetaminophen 325 mg tablet 325 mg PO Q6 10/09/23 10/31/23 Unknown acetaminophen 500 mg tablet 500 mg PO Q6H 10/09/23 10/31/23 Unknown docusate sodium 100 mg capsule 100 mg PO BID 10/09/23 10/31/23 Unknown oxycodone 5 mg tablet 5 mg PO Q6H PRN pain #30 tabs 10/10/23 10/31/23 Unknown duloxetine 30 mg capsule,delayed 30 mg PO DAILY 10/31/23 10/31/23 Unknown release tizanidine 4 mg tablet 4 mg PO Q8H 10/31/23 10/31/23 Unknown Active Medications Generic Name Dose Route Start Last Admin Trade Name Freq PRN Reason Stop Dose Admin Acetaminophen 1,000 mg 10/31/23 14:59 11/04/23 07:27 Acetaminophen 500 Mg Tab PO 11/30/23 14:58 1,000 mg Q8H PRN Administration MILD Pain Scale 1,2,3 & Pre PT Colesevelam HCl 1 each 11/01/23 17:00 11/04/23 07:26 Colesevelam Hcl PO 12/01/23 16:59 Not Given BIDM FERNY Duloxetine HCl 30 mg 11/01/23 09:00 11/04/23 07:27 Duloxetine Hcl 30 Mg Cap PO 12/01/23 08:59 Not Given DAILY FERNY Hydromorphone HCl 1 mg 10/31/23 14:59 11/01/23 08:40 Hydromorphone Inj 1 Mg/Ml Syringe IV 11/14/23 14:58 1 mg Q3H PRN Administration severe pain (scale 7-10) Promethazine HCl 12.5 mg in 50.5 mls @ 202 mls/hr 10/31/23 14:59 11/03/23 20:54 Phenergan IV 11/30/23 14:58 Infused Q6H PRN Infusion Nausea And Vomiting Lactated Ringer's 1,000 mls @ 15 mls/hr 11/04/23 10:30 11/04/23 10:17 Lr IV 12/04/23 10:29 15 mls/hr .Q24H FERNY Administration Insulin Aspart 0 units 11/04/23 06:00 11/04/23 06:06 Insulin Aspart Per Unit Charge SC 12/04/23 05:59 Not Given Q6 FERNY Levothyroxine Sodium 200 mcg 11/01/23 06:30 11/04/23 05:41 Levothyroxine Sodium 200 Mcg Tablet PO 12/01/23 06:29 200 mcg DAILYBB FERNY Administration Lidocaine 1 patch 11/01/23 09:00 11/04/23 07:27 Lidocaine 5% 1 Patch TD 12/01/23 08:59 Not Given DAILY FERNY Metoclopramide HCl 10 mg 10/31/23 14:59 11/03/23 22:13 Metoclopramide Hcl Inj 5 Mg/Ml 2 Ml Vial IV 11/30/23 14:58 10 mg Q6H PRN Administration Nausea &/or Vomiting Ondansetron HCl 4 mg 10/31/23 14:59 11/03/23 19:09 Ondansetron Inj 2 Mg/Ml 2 Ml Vial IV 11/30/23 14:58 4 mg Q6H PRN Administration Nausea &/or Vomiting Ondansetron HCl 4 mg 10/31/23 14:59 11/02/23 14:45 Ondansetron 4 Mg Od Tab PO 11/30/23 14:58 4 mg Q6H PRN Administration Nausea Oxycodone HCl 5 mg 11/01/23 16:39 11/02/23 14:47 Oxycodone Hcl Ir 5 Mg Tab (Immediate Release) PO 11/15/23 16:38 5 mg Q6H PRN Administration Moderate Pain (Scale 4, 5, 6) Tizanidine HCl 4 mg 10/31/23 17:00 11/04/23 07:27 Tizanidine Hcl 4 Mg Tablet PO 11/30/23 16:59 4 mg Q8H FERNY Administration Exercise / Class Metabolic Activity Metabolic Activity: II 4-5 Yardwork/Stairs/Walk up hill Physical Exam Constitutional: no acute distress Mouth: no dentition abnormality Thyromental Distance: > or= 3.5 Finger Breadths Mallampati Class: III Neck: + visual inspection normal Respiratory: + respiratory effort normal and + clear to auscultation bilaterally; no respiratory distress Cardiovascular: + regular rate and + regular rhythm; no murmur Musculoskeletal: no limited cervical ROM Psychiatric: + alert and + oriented x 3 ASA ASA3 Proposed Anesthesia Proposed Anesthesia: General Risk / Benefits Reviewed With: PT / POA / Parent / Guardian, Accepts Plan and Informed Consent Obtained
--- NOTE | 2023-11-04 10:42 | History & Physical Bridge Note ---
Date of Service November 04, 2023 History & Physical Bridge Note I have examined the patient, reviewed the History & Physical and in the interval since the performance of the History & Physical I have noted the following changes of clinical significance: no changes noted Kyphoplasty L1 and L2 with hardware removal L2-S1
[2023-11-04] MEDS: SCOPOLAMINE 1 MG/72 HR TDSY PATCH TD STA (10:53)
--- NOTE | 2023-11-04 11:11 | Hospitalist Progress Note ---
Date of Service November 04, 2023 Assessment & Plan (1) Intractable back pain: (2) T2DM (type 2 diabetes mellitus): (3) HTN (hypertension): (4) HLD (hyperlipidemia): (5) Hypothyroidism: Plan This is a 73yo F with a PMH of hypothyroidism, dyslipidemia, HTN, obesity, history of spinal surgeries who presents with intractable back pain and was found to have an L1 compression fracture. Intractable back pain Hx of multiple lumbosacral spine surgery S/p R SI joint revision, on 09/25/[address] Herr Initially discharged to rehab, then re admitted for pain control 10/08- and discharged back to [facility] Sent over from ortho clinic today due to worsening R lower back pain L-spine MRI ordered by Dr. Herr - no significant disc disease or stenosis from L1-S1. However, L1 vertebral body compression fracture noted Dr. Herr evaluated - planning for possible kyphoplasty of L1 vertebral body today Pain control, continue bowel regimen Mahoney placed yesterday for limited mobility and urinary retention - plan to remove postop PT / OT recs when able Remains medically stable with unremarkable labs Persistent Nausea pt reports persistent nausea x 3 weeks at least, it is impairing her ability to eat and drink At end of August she was 101 kg, now 90kg, ~ 25# weight loss she has limited her narcotics and has been off for 2 days, doing APAP only, will trial PPI consult web publisher will consult GI on 11/04 - for assistance with nausea if still present due to pt going for surgery today, will check CBC, CMP, mag, will also consider abdominal imaging post operatively T2DM: on pioglitazone, a1c 6.45, hold actos, NovoLog per protocol Blood sugar is maintained and she has not required any insulin if remains stable post op can consider discontinuing accuchecks HTN: Chronic, stable, hold hctz perioperatively, resume as able Blood pressure remains stable on current medications HLD: Chronic stable on colesevelam Hypothyroidism: Chronic, stable continue levothyroxine, TSH 6.4 but Free T4 1.34 Depression: pt reports they started her on duloxetine while at [facility] a few weeks ago, she hui to be off this medication, will taper off every other day for 1 week then discontinue DVT ppx: off for now due to procedure today, SCDS, will re introduce chemical prophylaxis when feasible Code: FULL CODE PCP: Jadyn Johnson DO Dispo: admitted to medical, will need PT/OT recs when able A total of 52 was spent coordinating, documenting, and providing care for this patient excluding time spent in the performance of separately billed services. This included personally viewing all current laboratories and imaging studies, medication reconciliation, outpatient chart review, and discussion with specialists. Admission and Anticipated Discharge Date Admission Date: October 31, 2023 Supervising Physician Co-Signing Physician Notes Attending addendum: The patient was seen and examined in medical floor Status post lumbar surgery and remains under the influence of medications Denies any significant symptoms except weakness On examination Lying in bed with some distress Hemodynamically stable Her labs, medications and imaging studies reviewed Status post L1-L2 and S1 kyphoplasty and hardware removal as mentioned Remains medically stable and agree with assessment plan as outlined above by Anila Corea PA-C and take the full disposition of the care Total time spent in documentation and examination was [address] Darrell Sanz Subjective Pt was seen and examined in room 309. F/U Back pain. Pt complains of nausea. She states it has been present for 3 weeks or so and has been significantly limiting her intake. She has not had much to eat/drink in this time period. is at bedside who helps elicit history agrees with this. She denies f/c/s, chest pain, vomiting, abd pain. She had a mahoney cath in place. She had a BM on Saturday and Saturday, but none yesterday. She is planning to have surgery today. Review of Systems Review of Systems: All systems reviewed & are unremarkable except as noted in HPI & below Physical Exam Physical Exam: Gen: WD/WN, NAD, A&O x3 HEENT: Normocephalic, atraumatic, conjunctivae moist, sclerae anicteric, mucous membranes moist. Lung: Clear to Auscultation bilaterally, no wheezes/rales/rhonchi Heart: Regular rate, regular rhythm, no murmurs, rubs, or gallops Abdomen: Soft, NT, ND +BS x 4 Extremities: No edema Skin: Warm, no rash, negative turgor. : mahoney cath draining yellow urine Results & Data Results & Data Vital Signs (Past 12 Hours) Vital Signs Temp Pulse Resp BP BP Pulse Ox O2 Del Method 11/04/23 10:06 36.9 C 82 20 129/64 91 Room Air 11/04/23 07:24 36.6 C 73 16 124/73 93 Room Air Laboratory Results I have independently reviewed and interpreted patient's cr. Medications Administered Current Inpatient Medications Acetaminophen (Acetaminophen 500 Mg Tab) 1,000 mg PO Q8H PRN PRN Reason: MILD Pain Scale 1,2,3 & Pre PT Stop: 11/30/23 14:58 Last Admin: 11/04/23 07:27 Dose: 1,000 mg Atropine Sulfate (Atropine Sulfate 0.1 Mg/Ml 10ml Syr) 0.5 mg IV Q1M PRN PRN Reason: PACU Use-HR<40 &/or Bradycardi Stop: 11/04/23 18:23 Atropine Sulfate (Atropine Sulfate 0.1 Mg/Ml 10ml Syr) 0.5 mg IV Q1M PRN PRN Reason: PACU Use-HR<40 &/or Bradycardi Stop: 11/04/23 18:37 Colchicine (Colchicine 0.6 Mg Tab) 0.6 mg PO BID PRN PRN Reason: Gout Flare Stop: 11/30/23 15:02 Colesevelam HCl (Colesevelam Hcl) 1 each PO BIDM FERNY Stop: 12/01/23 16:59 Last Admin: 11/04/23 07:26 Dose: Not Given Cyclobenzaprine HCl (Cyclobenzaprine Hcl 10 Mg Tab) 10 mg PO Q8 PRN PRN Reason: Muscle Spasm Stop: 11/30/23 21:59 Dextrose (Dextrose 50% 50 Ml Syringe) 25 - 50 ml IV UD PRN; Protocol PRN Reason: Hypoglycemia Protocol Stop: 11/30/23 15:44 Ephedrine Sulfate (Ephedrine Sulfate 50 Mg/Ml Amp) 5 mg IV Q5M PRN PRN Reason: PACU Use Only-SBP<90 mmHg Stop: 11/04/23 18:23 Ephedrine Sulfate (Ephedrine Sulfate 50 Mg/Ml Amp) 5 mg IV Q5M PRN PRN Reason: PACU Use Only-SBP<90 mmHg Stop: 11/04/23 18:37 Glucagon (Glucagon For Inj 1 Mg Vial) 1 mg SQ UD PRN; Protocol PRN Reason: Hypoglycemia Protocol Stop: 11/30/23 15:44 Glucose (Glucose 40% Gel 15 Gm Tube) 15 - 30 gm PO UD PRN; Protocol PRN Reason: Hypoglycemia Protocol Stop: 11/30/23 15:44 Glucose (Glucose 10 Tab/Tube) 4 - 8 tab PO UD PRN; Protocol PRN Reason: Hypoglycemia Treatment Stop: 11/30/23 15:44 Hydromorphone HCl (Hydromorphone Inj 0.5 Mg/0.5 Ml Syr) 0.5 mg IV Q3H PRN PRN Reason: MOD pain (scale 4-6) & Pre PT Stop: 11/14/23 14:58 Hydromorphone HCl (Hydromorphone Inj 1 Mg/Ml Syringe) 1 mg IV Q3H PRN PRN Reason: severe pain (scale 7-10) Stop: 11/14/23 14:58 Last Admin: 11/01/23 08:40 Dose: 1 mg Hydromorphone HCl (Hydromorphone Inj 2 Mg/Ml Syr/Vial) 0.5 mg IV Q5M PRN PRN Reason: PACU Use Only-Pain Stop: 11/04/23 18:23 Hydromorphone HCl (Hydromorphone Inj 2 Mg/Ml Syr/Vial) 0.5 mg IV Q5M PRN PRN Reason: PACU Use Only-Pain Stop: 11/04/23 18:38 Promethazine HCl (Phenergan) 12.5 mg in 50.5 mls @ 202 mls/hr IV Q6H PRN PRN Reason: Nausea And Vomiting Stop: 11/30/23 14:58 Last Infusion: 11/03/23 20:54 Dose: Infused Lactated Ringer's (Lr) 1,000 mls @ 15 mls/hr IV .Q24H FERNY Stop: 12/04/23 10:29 Last Admin: 11/04/23 10:17 Dose: 15 mls/hr Promethazine HCl 6.25 mg/ (Sodium Chloride) 50.25 mls @ 204 mls/hr IV ONCE PRN PRN Reason: PACU Use Only-Nausea/Vomiting Stop: 11/04/23 18:23 Promethazine HCl 6.25 mg/ (Sodium Chloride) 50.25 mls @ 204 mls/hr IV ONCE PRN PRN Reason: PACU Use Only-Nausea/Vomiting Stop: 11/04/23 18:38 Insulin Aspart (Insulin Aspart Per Unit Charge) 0 units SC Q6 [facility] Stop: 12/04/23 05:59 Last Admin: 11/04/23 06:06 Dose: Not Given Levothyroxine Sodium (Levothyroxine Sodium 200 Mcg Tablet) 200 mcg PO DAILYBB FERNY Stop: 12/01/23 06:29 Last Admin: 11/04/23 05:41 Dose: 200 mcg Lidocaine (Lidocaine 5% 1 Patch) 1 patch TD DAILY FERNY Stop: 12/01/23 08:59 Last Admin: 11/04/23 07:27 Dose: Not Given Lorazepam (Lorazepam 0.5 Mg Tab) 0.5 mg PO Q8H PRN PRN Reason: sedation/anxiety Stop: 11/30/23 14:58 Lorazepam (Lorazepam 2 Mg/1 Ml Vial) 0.5 mg IV Q8H PRN PRN Reason: Sedation/Anxiety Stop: 11/30/23 14:58 Metoclopramide HCl (Metoclopramide Hcl Inj 5 Mg/Ml 2 Ml Vial) 10 mg IV Q6H PRN PRN Reason: Nausea &/or Vomiting Stop: 11/30/23 14:58 Last Admin: 11/03/23 22:13 Dose: 10 mg Miscellaneous (Carbohydrates For Hypoglycemia ) 15 - 30 gm PO UD PRN PRN Reason: Hypoglycemia Protocol Stop: 11/30/23 15:44 Miscellaneous (Check Scopolamine Patch Placement) 1 each N/A QS [facility] Stop: 11/07/23 05:59 Miscellaneous (Remove Transderm-Scop Patch) 1 each N/A ONE ONE Stop: 11/07/23 06:01 Naloxone HCl (Naloxone Hcl 0.4 Mg/1 Ml Vial/Carp) 0.1 mg IV Q5M PRN PRN Reason: Oversedation/respiratory dep Stop: 11/30/23 14:58 Ondansetron HCl (Ondansetron Inj 2 Mg/Ml 2 Ml Vial) 4 mg IV Q6H PRN PRN Reason: Nausea &/or Vomiting Stop: 11/30/23 14:58 Last Admin: 11/03/23 19:09 Dose: 4 mg Ondansetron HCl (Ondansetron 4 Mg Od Tab) 4 mg PO Q6H PRN PRN Reason: Nausea Stop: 11/30/23 14:58 Last Admin: 11/02/23 14:45 Dose: 4 mg Oxycodone HCl (Oxycodone Hcl Ir 5 Mg Tab (Immediate Release)) 5 mg PO Q6H PRN PRN Reason: Moderate Pain (Scale 4, 5, 6) Stop: 11/15/23 16:38 Last Admin: 11/02/23 14:47 Dose: 5 mg Tizanidine HCl (Tizanidine Hcl 4 Mg Tablet) 4 mg PO Q8H FERNY Stop: 11/30/23 16:59 Last Admin: 11/04/23 07:27 Dose: 4 mg (2) T2DM (type 2 diabetes mellitus) Diabetes mellitus complication status: without complication Diabetes mellitus [facility] insulin use: without keno terminal operator use Qualified Code(s): E11.9 - Type 2 diabetes mellitus without complications (3) HTN (hypertension) Hypertension type: unspecified Qualified Code(s): I10 - Essential (primary) hypertension (4) HLD (hyperlipidemia) Hyperlipidemia type: unspecified Qualified Code(s): E78.5 - Hyperlipidemia, unspecified (5) Hypothyroidism Hypothyroidism type: unspecified Qualified Code(s): E03.9 - Hypothyroidism, unspecified
[2023-11-04] MEDS: ceFAZolin 3000MG/72.5 ML BAG IV ONE (11:24)
[2023-11-04] MEDS: BUPIVACAINE/EPINEPHRINE 0.25% 1:200,000 30 ML VIAL ONE (11:54)
[2023-11-04] MEDS ORDERED: DROPERIDOL 5 MG/2 ML VIAL ONE (12:36)
[2023-11-04] MEDS ORDERED: SUGAMMADEX SODIUM 200 MG/2 ML VIAL IV ONE (12:36)
--- NOTE | 2023-11-04 12:46 | Operative Report ---
Post Operative Report Pre & Post Diagnosis Operation Date: 11/04/23 11:05 Pre-Op Diagnosis: L1 and L2 osteoporotic compression fracture Post-Op Diagnosis: Same I identified the patient and participated in the time-out.: Yes Procedure Operation Date: 11/04/23 11:05 Actual Procedures #1 kyphoplasty L1 and L2 vertebral body. #2 biopsy of L1 vertebral body. #3 removal of right side pedicle screws and elba L2-S1. #4 replacement of right- sided instrumentation L2-S1. #5 placement of Stimulan beads impregnated with vancomycin and gentamicin throughout the surgical incision. Surgeon Timothy Herr, Speeder Machine Operator Ainsley Mullins Estimated Blood Loss 50 Findings Consistent with Post-Op Diagnosis Specimens None Indications This is a 73-year-old female presents with marked limitation secondary to osteoporotic compression fracture L1 and L2. Subsequently she is here for surgical intervention. Description of Procedure Patient met with identified informed consent obtained. Patient was then taken to the operative suite underwent ablation placed in a prone position on the Sidney table atop the Fabricio frame. All bony promises well-padded eyes inspected to ensure no external precipice upon the. This point the thoracolumbar spine was prepped and draped normal sterile fashion. The assistance of fluoroscopy in AP and lateral planes identified the L1 vertebral body. 2 small incisions were placed just lateral to the pedicles and 2 Kyphon working cannulas placed directly into the L1 vertebral body. Kyphon 20 mm balloons were then inserted directly into the vertebral body and sequentially inflated. Presently 6 cc of Kyphon cement was then injected demonstrating excellent interdigitation and fill. I then open lumbar spine from L2-S1 on the right exposing the instrumentation. The hardware was removed demonstrating loosening of the L2-L3 and as 1 screws. All screws were removed. I then placed a balloon into the right L to vertebral body inflated the balloon with fluoroscopic visualization and subsequently injected approximately 3 cc of Kyphon cement. This was followed by placement of a screw within the L2 pedicle. New screws were placed in L3-L4-L5 and S1 levels as well. Proper size elba was then contoured and locked in position bilaterally. Approximately 10 cc of Stimulan beads impregnated with vancomycin gentamicin placed throughout the surgical incision. 15 round MORGAN drain inserted. The incision was then closed with 1 Vicryl the fascia 2-0 Vicryl subcutaneously and 4 Monocryl for final skin closure. Steri-Strips sterile dressing placed. Patient waken taken PACU stable condition. Please note Ainsley Mullins was present out the procedure involved patient positioning complex portion of the surgery and final skin closure. I attest to the content of the Intraoperative Record and any orders documented therein. Any exceptions are noted below.
[2023-11-04] MEDS: ceFAZolin 330 MG/ML 1 GM VIAL ONE (12:49)
[2023-11-04] MEDS: GENTAMICIN SULFATE 40 MG/ML 2 ML VIAL ONE (12:52)
[2023-11-04] MEDS: VANCOMYCIN HCL 1000MG/20ML VIAL ONE (12:53)
[2023-11-04] MEDS ORDERED: hydrOXYzine HCl 25 MG TAB PO PRN (13:50)
[2023-11-04] MEDS ORDERED: ACETAMINOPHEN 500 MG TAB PO PRN (13:50)
[2023-11-04] MEDS ORDERED: NALOXONE HCL 0.4 MG/1 ML VIAL/CARP IV PRN (13:50)
[2023-11-04] MEDS ORDERED: ONDANSETRON 4 MG OD TAB PO PRN (13:50)
[2023-11-04] MEDS ORDERED: DO NOT ADMINISTER PNEUMOCOCCAL VACCINE PRN (13:50)
[2023-11-04] MEDS ORDERED: LORazepam 2 MG/1 ML VIAL IV PRN (13:50)
[2023-11-04] MEDS ORDERED: DO NOT ADMINISTER FLU VACCINE PRN (13:50)
[2023-11-04] MEDS ORDERED: diphenhydrAMINE Capsule 25 MG CAP PO PRN (13:50)
[2023-11-04] MEDS ORDERED: LORazepam 0.5 MG TAB PO PRN (13:50)
[2023-11-04] MEDS: HYDROmorphone INJ 0.5 MG/0.5 ML SYR IV PRN (14:12)
[2023-11-04] MEDS: SODIUM CHLORIDE 0.9% 1,000 ML IV SCH (14:12)
--- NOTE | 2023-11-04 14:23 | Fluoroscopy Report ---
FL lumbar spine 2-3V CLINICAL HISTORY: L1 KYPHOPLASTY COMPARISON STUDY: Lumbar spine MRI October 31, 2023. Lumbar spine CT November 01, 2023. FLUOROSCOPY TIME: 4 minutes. Kishor,r: 25.757 mGy FLUOROSCOPIC IMAGES: 7 FINDINGS: Fluoroscopy was provided during L1 and L2 kyphoplasty. Methylmethacrylate is noted. Lumbosa cral fusion is noted with multilevel discectomy. IMPRESSION: Fluoroscopy provided during L1 and L2 kyphoplasty. ACT 112: Negative or not required by law. Electronically signed by: Davin Hudson M.D. 11/04/2023 2:21 PM
--- NOTE | 2023-11-04 15:02 | Anesthesiology Progress Note ---
Date of Service November 04, 2023 Anesthesia Post Procedure Vital Signs Vital Signs: Temp Pulse Pulse Resp BP BP Pulse Ox 11/04/23 14:39 36.5 C 70 16 106/63 98 11/04/23 13:54 36.4 C L 77 18 111/67 98 11/04/23 13:35 36.3 C L 77 20 113/54 L 98 11/04/23 13:25 83 16 108/58 L 98 11/04/23 13:15 87 17 116/56 L 98 11/04/23 13:06 36.0 C L 90 21 112/67 96 11/04/23 10:06 36.9 C 82 20 129/64 91 11/04/23 07:24 36.6 C 73 16 124/73 93 11/03/23 20:15 36.8 C 73 16 133/73 97 O2 Del Method O2 Flow Rate 11/04/23 14:39 Nasal Cannula 2 11/04/23 13:54 Nasal Cannula 2 11/04/23 13:35 Nasal Cannula 2 11/04/23 13:25 Nasal Cannula 2 11/04/23 13:15 Oxymask 4 11/04/23 13:06 Oxymask 6 11/04/23 10:06 Room Air 11/04/23 07:24 Room Air 11/03/23 20:15 Room Air Pain Intensity Back: Pain Intensity: 6 Transfer of Care Handoff Completed per policy Notes Mental Status: alert / awake / arousable and participated in evaluation Nausea / Vomiting: adequately controlled Pain: adequately controlled Airway Patency, RR, SpO2: stable & adequate BP & HR: stable & adequate Hydration State: stable & adequate Anesthetic Complications: no major complications apparent and Pt Satisfied with anesthetic care
[2023-11-04] MEDS: CHECK SCOPOLAMINE PATCH PLACEMENT SCH (15:05)
[2023-11-04] MEDS: HYDROmorphone INJ 1 MG/ML SYRINGE IV PRN (19:55)
[2023-11-04] MEDS: DOCUSATE SODIUM/SENNA 50/8.6MG TAB PO SCH (21:12)
[2023-11-04] MEDS: ceFAZolin 2000MG 2,000 MG/15 ML SYR IV SCH (21:13)
[2023-11-05] MEDS: POLYETHYLENE (MIRALAX) 17 GM PACK PO SCH (05:42)
[2023-11-05] MEDS: ACETAMINOPHEN 1,000 MG/100 ML VIAL IV PRN (05:50)
[2023-11-05 07:59] LABS: Basophils # (auto) 0.04 K/uL (0.00-0.20); Basophils % (auto) 0.4 %; Eosinophils # (auto) 0.01 K/uL (0.00-0.50); Eosinophils % (auto) 0.1 %; Hematocrit (blood only) 36.7 % (37.0-47.0); Immature Granulocytes # (auto) 0.05 K/uL (0.01-0.20); Immature Granulocytes % (auto) 0.4 %; Lymphocytes # (auto) 2.44 K/uL (1.20-3.40); Lymphocytes % (auto) 21.4 %; Mean Corpuscular Hemoglobin 28.3 pg (25.0-34.0); Mean Corpuscular Hgb Conc 32.7 g/dL (32.0-36.0); Mean Corpuscular Volume 86.6 fL (80.0-100.0); Mean Platelet Volume 12.4 fL (9.4-12.4); Monocytes # (auto) 0.83 K/uL (0.11-0.59); Monocytes % (auto) 7.3 %; Neutrophils # (auto) 8.04 K/uL (1.40-6.50); Neutrophils % (auto) 70.4 %; Platelet Count 212 K/uL (130-400); RDW Coefficient of Variation 15.9 % (11.5-14.5); RDW Standard Deviation 50.3 fL (36.4-46.3); Red Blood Count 4.24 M/uL (4.20-5.40); White Blood Count 11.41 K/ul (4.8-10.8)
[2023-11-05 08:13] LABS: BUN Creatinine Ratio 12.3 (10-20); Calcium 8.3 mg/dl (8.6-10.3); Creatinine Clr Calc Pharmacy 100.6 ml/min; Est GFR (African American) 108.1 ml/min; Est GFR (Non-African American) 93.3 ml/min; Magnesium 1.6 mg/dl (1.7-2.4)
[2023-11-05] MEDS: dexAMETHasone 6 MG in SYRINGE 0 ML IV SCH (08:25)
[2023-11-05] MEDS: PANTOprazole 40 MG TAB PO SCH (08:26)
[2023-11-05] MEDS: MAGNESIUM SULFATE / D5W 1 GM/100 ML BAG IV SCH (09:10)
--- NOTE | 2023-11-05 09:47 | Hospitalist Progress Note ---
Date of Service November 05, 2023 Assessment & Plan (1) Intractable back pain: (2) T2DM (type 2 diabetes mellitus): (3) HTN (hypertension): (4) HLD (hyperlipidemia): (5) Hypothyroidism: Plan This is a 73yo F with a PMH of hypothyroidism, dyslipidemia, HTN, obesity, history of spinal surgeries who presents with intractable back pain and was found to have an L1 compression fracture. Intractable back pain Hx of multiple lumbosacral spine surgery S/p R SI joint revision, on 09/25/[address] Herr Initially discharged to rehab, then re admitted for pain control 10/08- and discharged back to [facility] Sent over from ortho clinic today due to worsening R lower back pain L-spine MRI ordered by Dr. eHrr - no significant disc disease or stenosis from L1-S1. However, L1 vertebral body compression fracture noted S/P Kyphoplasty L1 and L2, biopsy of L1, removal of right pedicle screws L2-S1, replacement of instrumentation and placement of antibiotic beads with vancomycin/gentamicin await pathology of L1 Biopsy, currently on IV dexamethasone per Dr. Herr Pain control, continue bowel regimen Mahoney placed for limited mobility and urinary retention - plan to remove postop when more ambulatory PT / OT recs when able Persistent Nausea pt reports persistent nausea x 3 weeks at least, it is impairing her ability to eat and drink At end of August she was 101 kg, now 90kg, ~ 25# weight loss she has limited her narcotics and has been off for 2 days, doing APAP only, will trial PPI consult drug enforcement administration agent Pt nausea improved today; however she is on scopalmine patch, will monitor intake, low threshold for GI eval Hypomagnesemia Mag 1.6 today, will replace and repeat tomorrow T2DM: on pioglitazone, a1c 6.45, hold actos, NovoLog per protocol Blood sugar is maintained and she has not required any insulin if remains stable post op can consider discontinuing accuchecks HTN: Chronic, stable, hold hctz perioperatively, resume as able Blood pressure remains stable on current medications HLD: Chronic stable on colesevelam Hypothyroidism: Chronic, stable continue levothyroxine, TSH 6.4 but Free T4 1.34 Depression: pt reports they started her on duloxetine while at [facility] a few weeks ago, she hui to be off this medication, will taper off every other day for 1 week then discontinue DVT ppx: off for now due to procedure today, SCDS, will re introduce chemical prophylaxis when feasible Code: FULL CODE PCP: Jadyn Johnson DO Dispo: admitted to medical, will need PT/OT recs when able A total of 45 min was spent coordinating, documenting, and providing care for this patient excluding time spent in the performance of separately billed services. This included personally viewing all current laboratories and imaging studies, medication reconciliation, outpatient chart review, and discussion with specialists. Admission and Anticipated Discharge Date Admission Date: October 31, 2023 Supervising Physician Co-Signing Physician Notes Attending addendum: The patient was seen and examined in medical floor in presence of the She is status post lumbar surgery and remains medically stable Denies any significant symptoms except pain at the back and weakness On examination Lying in bed without any apparent distress Remains hemodynamically stable Her repeat labs and medications reviewed Lumbar radiculopathy status post lumbar surgery and doing better medically Agree with assessment plan as outlined above. Hermelinda SMITH and take the full responsibility of the patient care Dr Darrell Sanz Subjective Pt was seen and examined in room 309. F/U Back pain. She feels better this morning. She was able to elevate her HOB a bit without significant pain. She feels her nausea is much improved today. She denies f/c/s, chest pain, sob, abd pain. She does not want to take oxycodone as she feels this is contributing to her nausea. She has allergy to tramadol as it makes her confused. Review of Systems Review of Systems: All systems reviewed & are unremarkable except as noted in HPI & below Physical Exam Physical Exam: Gen: WD/WN, NAD, A&O x3 HEENT: Normocephalic, atraumatic, conjunctivae moist, sclerae anicteric, mucous membranes moist. Lung: Clear to Auscultation bilaterally, no wheezes/rales/rhonchi Heart: Regular rate, regular rhythm, no murmurs, rubs, or gallops Abdomen: Soft, NT, ND +BS x 4 Extremities: No edema Skin: Warm, no rash, negative turgor. : mahoney cath draining yellow urine Results & Data Results & Data Vital Signs (Past 12 Hours) Vital Signs Temp Pulse Resp BP BP Pulse Ox O2 Del Method 11/05/23 08:30 Nasal Cannula 11/05/23 07:37 52 L 16 117/68 97 Nasal Cannula 11/05/23 03:56 36.3 C L 58 L 16 107/64 94 Nasal Cannula 11/04/23 23:53 36.4 C L 57 L 16 106/65 94 Nasal Cannula O2 Flow Rate 11/05/23 08:30 2 11/05/23 07:37 2.5 11/05/23 03:56 11/04/23 23:53 2 Laboratory Results I have independently reviewed and interpreted patient's CBC, BMP, Mag Medications Administered Current Inpatient Medications Acetaminophen (Acetaminophen 500 Mg Tab) 1,000 mg PO Q8H PRN PRN Reason: MILD Pain Scale 1,2,3 & Pre PT Stop: 11/30/23 14:58 Last Admin: 11/04/23 07:27 Dose: 1,000 mg Al Hydrox/Mg Hydrox/Simethicone (Aluminum/Magnesium Susp 30 Ml Udc) 30 ml PO Q6H PRN PRN Reason: Dyspepsia Stop: 12/04/23 13:49 Bisacodyl (Bisacodyl 10 Mg Supp) 10 mg MD DAILY PRN PRN Reason: Constipation Stop: 12/04/23 13:49 Colchicine (Colchicine 0.6 Mg Tab) 0.6 mg PO BID PRN PRN Reason: Gout Flare Stop: 11/30/23 15:02 Colesevelam HCl (Colesevelam Hcl) 1 each PO BIDM FERNY Stop: 12/01/23 16:59 Last Admin: 11/05/23 08:24 Dose: Not Given Cyclobenzaprine HCl (Cyclobenzaprine Hcl 10 Mg Tab) 10 mg PO Q8 PRN PRN Reason: Muscle Spasm Stop: 11/30/23 21:59 Dextrose (Dextrose 50% 50 Ml Syringe) 25 - 50 ml IV UD PRN; Protocol PRN Reason: Hypoglycemia Protocol Stop: 11/30/23 15:44 Diphenhydramine HCl (Diphenhydramine Capsule 25 Mg Cap) 25 mg PO Q6H PRN PRN Reason: Allergic Rhinitis/Insomnia Stop: 12/04/23 13:49 Famotidine (Famotidine 20 Mg Tab) 20 mg PO Q12H PRN PRN Reason: Dyspepsia Stop: 12/04/23 13:49 Glucagon (Glucagon For Inj 1 Mg Vial) 1 mg SQ UD PRN; Protocol PRN Reason: Hypoglycemia Protocol Stop: 11/30/23 15:44 Glucose (Glucose 40% Gel 15 Gm Tube) 15 - 30 gm PO UD PRN; Protocol PRN Reason: Hypoglycemia Protocol Stop: 11/30/23 15:44 Glucose (Glucose 10 Tab/Tube) 4 - 8 tab PO UD PRN; Protocol PRN Reason: Hypoglycemia Treatment Stop: 11/30/23 15:44 Hydromorphone HCl (Hydromorphone Inj 0.5 Mg/0.5 Ml Syr) 0.5 mg IV Q3H PRN PRN Reason: MODERATE Pain (Scale 4,5,6) & Pre PT Stop: 11/18/23 13:49 Last Admin: 11/04/23 16:54 Dose: 0.5 mg Hydromorphone HCl (Hydromorphone Inj 1 Mg/Ml Syringe) 1 mg IV Q3H PRN PRN Reason: SEVERE Pain (Scale 7,8,9,10) Stop: 11/18/23 13:49 Last Admin: 11/04/23 19:55 Dose: 1 mg Hydroxyzine HCl (Hydroxyzine Hcl 25 Mg Tab) 25 mg PO Q8H PRN PRN Reason: Anxiety Stop: 12/04/23 13:49 Acetaminophen (Ofirmev) 1,000 mg in 100 mls @ 400 mls/hr IV Q8H PRN PRN Reason: Pain Rating 1-3 & Pre PT Stop: 11/05/23 13:50 Last Infusion: 11/05/23 06:05 Dose: Infused Dexamethasone 6 mg/ Syringe 1.5 mls @ 1 mls/min IV DAILY FERNY Stop: 12/05/23 08:59 Last Admin: 11/05/23 08:25 Dose: 1 mls/min Promethazine HCl (Phenergan) 12.5 mg in 50.5 mls @ 202 mls/hr IV Q6H PRN PRN Reason: Nausea And Vomiting Stop: 12/04/23 13:49 Magnesium Sulfate/Dextrose (Magnesium Sulfate / D5w) 1 gm in 100 mls @ 50 mls/hr IV Q2H FERNY Stop: 11/05/23 12:44 Last Admin: 11/05/23 09:10 Dose: 50 mls/hr Influenza Virus Vaccine Quadrival (Do Not Administer Flu Vaccine) 1 each N/A PRN PRN PRN Reason: Notification Stop: 12/04/23 13:49 Insulin Aspart (Insulin Aspart Per Unit Charge) 0 units SC ACHS [facility] Stop: 12/04/23 16:29 Last Admin: 11/05/23 08:28 Dose: 1 units Ketorolac Tromethamine (Ketorolac Tromethamine 15 Mg/Ml Vial) 15 mg IV Q6H PRN PRN Reason: Mild-Mod Pain (Scale 1-6) Levothyroxine Sodium (Levothyroxine Sodium 200 Mcg Tablet) 200 mcg PO DAILYBB [facility] Stop: 12/01/23 06:29 Last Admin: 11/05/23 05:42 Dose: 200 mcg Lorazepam (Lorazepam 0.5 Mg Tab) 0.5 mg PO Q8H PRN PRN Reason: Sedation/Anxiety Stop: 12/04/23 13:49 Lorazepam (Lorazepam 2 Mg/1 Ml Vial) 0.5 mg IV Q8H PRN PRN Reason: Sedation/Anxiety Stop: 12/04/23 13:49 Magnesium Hydroxide (Magnesium Hydroxide Susp 30 Ml Udc) 30 ml PO Q24H PRN PRN Reason: Constipation Stop: 12/04/23 13:49 Metoclopramide HCl (Metoclopramide Hcl Inj 5 Mg/Ml 2 Ml Vial) 10 mg IV Q6H PRN PRN Reason: Nausea &/or Vomiting Stop: 12/04/23 13:49 Miscellaneous (Carbohydrates For Hypoglycemia ) 15 - 30 gm PO UD PRN PRN Reason: Hypoglycemia Protocol Stop: 11/30/23 15:44 Miscellaneous (Check Scopolamine Patch Placement) 1 each N/A QS [facility] Stop: 11/07/23 05:59 Last Admin: 11/05/23 08:31 Dose: 1 each Miscellaneous (Remove Transderm-Scop Patch) 1 each N/A ONE ONE Stop: 11/07/23 06:01 Naloxone HCl (Naloxone Hcl 0.4 Mg/1 Ml Vial/Carp) 0.1 mg IV Q5M PRN PRN Reason: Oversedation/Resp depression Stop: 12/04/23 13:49 Ondansetron HCl (Ondansetron Inj 2 Mg/Ml 2 Ml Vial) 4 mg IV Q6H PRN PRN Reason: Nausea &/or Vomiting Stop: 12/04/23 13:49 Ondansetron HCl (Ondansetron 4 Mg Od Tab) 4 mg PO Q6H PRN PRN Reason: Nausea Stop: 12/04/23 13:49 Oxycodone HCl (Oxycodone Hcl Ir 5 Mg Tab (Immediate Release)) 5 - 10 mg PO Q4H PRN PRN Reason: Pain & Pre PT Stop: 11/18/23 13:49 Pantoprazole Sodium (Pantoprazole 40 Mg Tab) 40 mg PO QAM [facility] Stop: 12/05/23 08:59 Last Admin: 11/05/23 08:26 Dose: 40 mg Pneumococcal Polyvalent Vaccine (Do Not Administer Pneumococcal Vaccine) 1 each N/A PRN PRN PRN Reason: Notification Stop: 12/04/23 13:49 Polyethylene Glycol (Polyethylene (Miralax) 17 Gm Pack) 17 gm PO Q6 [facility] Stop: 12/05/23 05:59 Last Admin: 11/05/23 05:42 Dose: 17 gm Senna/Docusate Sodium (Docusate Sodium/Senna 50/8.6mg Tab) 2 tab PO HS FERNY Stop: 12/04/23 20:59 Last Admin: 11/04/23 21:12 Dose: 2 tab Sodium Biphosphate/Sodium Phosphate (Sod Phosphate/Sod Biphosphate Enema 132 Ml Btl) 132 ml MD ONE PRN PRN Reason: Constipation Stop: 12/04/23 13:49 Tizanidine HCl (Tizanidine Hcl 4 Mg Tablet) 4 mg PO Q8H [facility] Stop: 11/30/23 16:59 Last Admin: 11/05/23 08:25 Dose: 4 mg (2) T2DM (type 2 diabetes mellitus) Diabetes mellitus complication status: without complication Diabetes mellitus termite treater insulin use: without termite treater use Qualified Code(s): E11.9 - Type 2 diabetes mellitus without complications (3) HTN (hypertension) Hypertension type: unspecified Qualified Code(s): I10 - Essential (primary) hypertension (4) HLD (hyperlipidemia) Hyperlipidemia type: unspecified Qualified Code(s): E78.5 - Hyperlipidemia, unspecified (5) Hypothyroidism Hypothyroidism type: unspecified Qualified Code(s): E03.9 - Hypothyroidism, unspecified
--- NOTE | 2023-11-05 10:01 | Orthopedic Progress Note ---
Date of Service November 05, 2023 Assessment & Plan (1) Lumbar compression fracture: Plan: This time we will decide physical therapy. Hopefully she will progress over the next few days and we can begin transfer to rehab. Admission and Anticipated Discharge Date Admission Date: October 31, 2023 Subjective Back pain is controlled. Denies any leg pain numbness or tingling. Physical Exam Physical Exam: On exam patient does appear more comfortable. She is neurologically intact to testing lower extremities. Results & Data Vital Signs (Past 12 Hours) Vital Signs Temp Pulse Resp BP BP Pulse Ox O2 Del Method 11/05/23 08:30 Nasal Cannula 11/05/23 07:37 52 L 16 117/68 97 Nasal Cannula 11/05/23 03:56 36.3 C L 58 L 16 107/64 94 Nasal Cannula 11/04/23 23:53 36.4 C L 57 L 16 106/65 94 Nasal Cannula O2 Flow Rate 11/05/23 08:30 2 11/05/23 07:37 2.5 11/05/23 03:56 11/04/23 23:53 2 Queries Orthopedic Spine Obesity: Yes Vertebral Fracture Secondary to Osteoporosis: Yes
[2023-11-05] MEDS: KETOROLAC TROMETHAMINE 15 MG/ML VIAL IV PRN (10:48)
[2023-11-05] MEDS: SODIUM CHLORIDE 0.9% 500 ML IV ONE (12:03)
[2023-11-05] MEDS: SODIUM CHLORIDE 0.9% 1,000 ML IV SCH (12:40)
[2023-11-06 07:53] LABS: Basophils # (auto) 0.04 K/uL (0.00-0.20); Basophils % (auto) 0.5 %; Eosinophils # (auto) 0.03 K/uL (0.00-0.50); Eosinophils % (auto) 0.4 %; Hematocrit (blood only) 38.1 % (37.0-47.0); Hemoglobin 12.2 g/dl (12.0-16.0); Immature Granulocytes # (auto) 0.02 K/uL (0.01-0.20); Immature Granulocytes % (auto) 0.3 %; Lymphocytes # (auto) 2.53 K/uL (1.20-3.40); Lymphocytes % (auto) 33.2 %; Mean Corpuscular Hemoglobin 28.1 pg (25.0-34.0); Mean Corpuscular Volume 87.8 fL (80.0-100.0); Mean Platelet Volume 12.4 fL (9.4-12.4); Monocytes # (auto) 0.65 K/uL (0.11-0.59); Monocytes % (auto) 8.5 %; Neutrophils # (auto) 4.36 K/uL (1.40-6.50); Neutrophils % (auto) 57.1 %; Platelet Count 191 K/uL (130-400); RDW Coefficient of Variation 16.2 % (11.5-14.5); RDW Standard Deviation 52.1 fL (36.4-46.3); Red Blood Count 4.34 M/uL (4.20-5.40); White Blood Count 7.63 K/ul (4.8-10.8)
[2023-11-06 08:00] LABS: BUN Creatinine Ratio 15.6 (10-20); Calcium 8.4 mg/dl (8.6-10.3); Creatinine Clr Calc Pharmacy 127.4 ml/min; Est GFR (African American) 116.8 ml/min; Est GFR (Non-African American) 100.8 ml/min; Magnesium 1.9 mg/dl (1.7-2.4); Potassium 3.4 mmol/L (3.5-5.1)
[2023-11-06] MEDS: ONDANSETRON INJ 2 MG/ML 2 ML VIAL IV PRN (08:43)
[2023-11-06] MEDS: POLYETHYLENE (MIRALAX) 17 GM PACK PO SCH (08:59)
[2023-11-06] MEDS ORDERED: DULoxetine HCL 30 MG CAP PO SCH (09:00)
[2023-11-06] MEDS: POTASSIUM CHLORIDE CRTAB 20 MEQ TABCR PO STA (09:53)
[2023-11-06] MEDS: DOCUSATE SODIUM 100 MG CAP PO SCH (09:53)
--- NOTE | 2023-11-06 10:30 | Hospitalist Progress Note ---
Date of Service November 06, 2023 Assessment & Plan (1) Intractable back pain: (2) T2DM (type 2 diabetes mellitus): (3) HTN (hypertension): (4) HLD (hyperlipidemia): (5) Hypothyroidism: Plan This is a 73yo F with a PMH of hypothyroidism, dyslipidemia, HTN, obesity, history of spinal surgeries who presents with intractable back pain and was found to have an L1 compression fracture. Intractable back pain Hx of multiple lumbosacral spine surgery S/p R SI joint revision, on 09/25/[address] Herr Initially discharged to rehab, then re admitted for pain control 10/08- and discharged back to [facility] Sent over from ortho clinic today due to worsening R lower back pain L-spine MRI ordered by Dr. Herr - no significant disc disease or stenosis from L1-S1. However, L1 vertebral body compression fracture noted S/P Kyphoplasty L1 and L2, biopsy of L1, removal of right pedicle screws L2-S1, replacement of instrumentation and placement of antibiotic beads with vancomycin/gentamicin await pathology of L1 Biopsy, currently on IV dexamethasone per Dr. Herr Pain control, continue bowel regimen Mahoney placed for limited mobility and urinary retention - plan to remove postop when more ambulatory PT / OT recs when able Hypokalemia replace Persistent Nausea pt reports persistent nausea x 3 weeks at least, it is impairing her ability to eat and drink At end of August she was 101 kg, now 90kg, ~ 25# weight loss she has limited her narcotics doing APAP only, will trial PPI consult support clerk Pt nausea improved today; however she is on scopolamine patch, will monitor intake, low threshold for GI eval Hypomagnesemia replaced T2DM: on pioglitazone, a1c 6.45, hold actos, NovoLog per protocol Blood sugar stable HTN: Chronic, stable, hold hctz as pt BP continues to remain on lower side HLD: Chronic stable on colesevelam Hypothyroidism: Chronic, stable continue levothyroxine, TSH 6.4 but Free T4 1.34 Depression: pt reports they started her on duloxetine while at [facility] a few weeks ago, she hui to be off this medication, will taper off every other day for 1 week then discontinue DVT ppx: off for now due to procedure today, SCDS, will re introduce chemical prophylaxis when feasible Code: FULL CODE PCP: Jadyn Johnson, DO Dispo: admitted to medical, will need PT/OT recs when able A total of 44 min was spent coordinating, documenting, and providing care for this patient excluding time spent in the performance of separately billed services. This included personally viewing all current laboratories and imaging studies, medication reconciliation, outpatient chart review, and discussion with specialists. Admission and Anticipated Discharge Date Admission Date: October 31, 2023 Supervising Physician Co-Signing Physician Notes Attending addendum: The patient was seen and examined in medical floor She remains weak and has been having low blood pressure on standing with dizziness Has been feeling better since this morning and likely to tolerate physical therapy Blood pressure remains on the lower side at systolic 100 She was advised to drink more fluid on examination Lying in bed without any acute distress Hemodynamically stable and the blood pressure noted to be low at 100/61 Other system examination remained unremarkable Her labs and medications reviewed Will continue with PT and OT Advised to drink more fluid to maintain blood pressure Agree with assessment plan as outlined above by TRES Corea PA-C and take the full responsibility of the care Total time spent in documentation, examination and review was [address] Darrell Sanz Subjective Pt was seen and examined in 309. F/U kyphoplasty. She is in tears in the room as she feels 45 degrees is to much for her. She is having a lot of R sided low back pain. When I position her HOB down her tears stop. She denies f/c/s, chest pain, sob, n/v/d. When having intense pain she has nausea. Review of Systems Review of Systems: All systems reviewed & are unremarkable except as noted in HPI & below Physical Exam Physical Exam: Gen: WD/WN, NAD, A&O x3 HEENT: Normocephalic, atraumatic, conjunctivae moist, sclerae anicteric, mucous membranes moist. Lung: Clear to Auscultation bilaterally, no wheezes/rales/rhonchi Heart: Regular rate, regular rhythm, no murmurs, rubs, or gallops Abdomen: Soft, NT, ND +BS x 4 Extremities: No edema christian drain with serosang drainage Skin: Warm, no rash, negative turgor. : mahoney cath draining yellow urine Results & Data Results & Data Vital Signs (Past 12 Hours) Vital Signs Temp Pulse Resp BP Pulse Ox O2 Del Method 11/06/23 07:32 36.5 C 52 L 16 100/61 93 Room Air 11/05/23 23:37 Room Air Laboratory Results Short CBC 11/06/23 Range/Units 07:03 WBC 7.63 (4.8-10.8) K/ul Hgb 12.2 (12.0-16.0) g/dl Hct 38.1 (37.0-47.0) % Plt Count 191 (130-400) K/uL BMP 11/06/23 07:03 Sodium 139 Potassium 3.4 L Chloride 103 Carbon Dioxide 29 BUN 7 Creatinine 0.45 L Glucose 111 H Calcium 8.4 L I have independently reviewed and interpreted patient's cbc, bmp Medications Administered Current Inpatient Medications Acetaminophen (Acetaminophen 500 Mg Tab) 1,000 mg PO Q8H PRN PRN Reason: MILD Pain Scale 1,2,3 & Pre PT Stop: 11/30/23 14:58 Last Admin: 11/06/23 09:53 Dose: 1,000 mg Al Hydrox/Mg Hydrox/Simethicone (Aluminum/Magnesium Susp 30 Ml Udc) 30 ml PO Q6H PRN PRN Reason: Dyspepsia Stop: 12/04/23 13:49 Bisacodyl (Bisacodyl 10 Mg Supp) 10 mg KS DAILY PRN PRN Reason: Constipation Stop: 12/04/23 13:49 Colchicine (Colchicine 0.6 Mg Tab) 0.6 mg PO BID PRN PRN Reason: Gout Flare Stop: 11/30/23 15:02 Colesevelam HCl (Colesevelam Hcl) 1 each PO BIDM FERNY Stop: 12/01/23 16:59 Last Admin: 11/06/23 08:35 Dose: Not Given Cyclobenzaprine HCl (Cyclobenzaprine Hcl 10 Mg Tab) 10 mg PO Q8 PRN PRN Reason: Muscle Spasm Stop: 11/30/23 21:59 Dextrose (Dextrose 50% 50 Ml Syringe) 25 - 50 ml IV UD PRN; Protocol PRN Reason: Hypoglycemia Protocol Stop: 11/30/23 15:44 Diphenhydramine HCl (Diphenhydramine Capsule 25 Mg Cap) 25 mg PO Q6H PRN PRN Reason: Allergic Rhinitis/Insomnia Stop: 12/04/23 13:49 Docusate Sodium (Docusate Sodium 100 Mg Cap) 100 mg PO BID FERNY Stop: 12/06/23 08:59 Last Admin: 11/06/23 09:53 Dose: 100 mg Famotidine (Famotidine 20 Mg Tab) 20 mg PO Q12H PRN PRN Reason: Dyspepsia Stop: 12/04/23 13:49 Glucagon (Glucagon For Inj 1 Mg Vial) 1 mg SQ UD PRN; Protocol PRN Reason: Hypoglycemia Protocol Stop: 11/30/23 15:44 Glucose (Glucose 40% Gel 15 Gm Tube) 15 - 30 gm PO UD PRN; Protocol PRN Reason: Hypoglycemia Protocol Stop: 11/30/23 15:44 Glucose (Glucose 10 Tab/Tube) 4 - 8 tab PO UD PRN; Protocol PRN Reason: Hypoglycemia Treatment Stop: 11/30/23 15:44 Hydromorphone HCl (Hydromorphone Inj 0.5 Mg/0.5 Ml Syr) 0.5 mg IV Q3H PRN PRN Reason: MODERATE Pain (Scale 4,5,6) & Pre PT Stop: 11/18/23 13:49 Last Admin: 11/04/23 16:54 Dose: 0.5 mg Hydromorphone HCl (Hydromorphone Inj 1 Mg/Ml Syringe) 1 mg IV Q3H PRN PRN Reason: SEVERE Pain (Scale 7,8,9,10) Stop: 11/18/23 13:49 Last Admin: 11/04/23 19:55 Dose: 1 mg Hydroxyzine HCl (Hydroxyzine Hcl 25 Mg Tab) 25 mg PO Q8H PRN PRN Reason: Anxiety Stop: 12/04/23 13:49 Dexamethasone 6 mg/ Syringe 1.5 mls @ 1 mls/min IV DAILY FERNY Stop: 12/05/23 08:59 Last Admin: 11/06/23 08:42 Dose: 1 mls/min Promethazine HCl (Phenergan) 12.5 mg in 50.5 mls @ 202 mls/hr IV Q6H PRN PRN Reason: Nausea And Vomiting Stop: 12/04/23 13:49 Influenza Virus Vaccine Quadrival (Do Not Administer Flu Vaccine) 1 each N/A PRN PRN PRN Reason: Notification Stop: 12/04/23 13:49 Insulin Aspart (Insulin Aspart Per Unit Charge) 0 units SC ACHS [facility] Stop: 12/04/23 16:29 Last Admin: 11/06/23 08:44 Dose: Not Given Ketorolac Tromethamine (Ketorolac Tromethamine 15 Mg/Ml Vial) 15 mg IV Q6H PRN PRN Reason: Mild-Mod Pain (Scale 1-6) Last Admin: 11/06/23 08:43 Dose: 15 mg Levothyroxine Sodium (Levothyroxine Sodium 200 Mcg Tablet) 200 mcg PO DAILYBB [facility] Stop: 12/01/23 06:29 Last Admin: 11/06/23 06:14 Dose: 200 mcg Lorazepam (Lorazepam 0.5 Mg Tab) 0.5 mg PO Q8H PRN PRN Reason: Sedation/Anxiety Stop: 12/04/23 13:49 Lorazepam (Lorazepam 2 Mg/1 Ml Vial) 0.5 mg IV Q8H PRN PRN Reason: Sedation/Anxiety Stop: 12/04/23 13:49 Magnesium Hydroxide (Magnesium Hydroxide Susp 30 Ml Udc) 30 ml PO Q24H PRN PRN Reason: Constipation Stop: 12/04/23 13:49 Metoclopramide HCl (Metoclopramide Hcl Inj 5 Mg/Ml 2 Ml Vial) 10 mg IV Q6H PRN PRN Reason: Nausea &/or Vomiting Stop: 12/04/23 13:49 Miscellaneous (Carbohydrates For Hypoglycemia ) 15 - 30 gm PO UD PRN PRN Reason: Hypoglycemia Protocol Stop: 11/30/23 15:44 Miscellaneous (Check Scopolamine Patch Placement) 1 each N/A QS FERNY Stop: 11/07/23 05:59 Last Admin: 11/06/23 08:43 Dose: 1 each Miscellaneous (Remove Transderm-Scop Patch) 1 each N/A ONE ONE Stop: 11/07/23 06:01 Naloxone HCl (Naloxone Hcl 0.4 Mg/1 Ml Vial/Carp) 0.1 mg IV Q5M PRN PRN Reason: Oversedation/Resp depression Stop: 12/04/23 13:49 Ondansetron HCl (Ondansetron Inj 2 Mg/Ml 2 Ml Vial) 4 mg IV Q6H PRN PRN Reason: Nausea &/or Vomiting Stop: 12/04/23 13:49 Last Admin: 11/06/23 08:43 Dose: 4 mg Ondansetron HCl (Ondansetron 4 Mg Od Tab) 4 mg PO Q6H PRN PRN Reason: Nausea Stop: 12/04/23 13:49 Oxycodone HCl (Oxycodone Hcl Ir 5 Mg Tab (Immediate Release)) 5 - 10 mg PO Q4H PRN PRN Reason: Pain & Pre PT Stop: 11/18/23 13:49 Pantoprazole Sodium (Pantoprazole 40 Mg Tab) 40 mg PO QAM FERNY Stop: 12/05/23 08:59 Last Admin: 11/06/23 09:53 Dose: 40 mg Pneumococcal Polyvalent Vaccine (Do Not Administer Pneumococcal Vaccine) 1 each N/A PRN PRN PRN Reason: Notification Stop: 12/04/23 13:49 Polyethylene Glycol (Polyethylene (Miralax) 17 Gm Pack) 17 gm PO Q12H [facility] Stop: 12/06/23 08:29 Last Admin: 11/06/23 08:59 Dose: 17 gm Senna/Docusate Sodium (Docusate Sodium/Senna 50/8.6mg Tab) 2 tab PO HS FERNY Stop: 12/04/23 20:59 Last Admin: 11/05/23 20:30 Dose: 2 tab Sodium Biphosphate/Sodium Phosphate (Sod Phosphate/Sod Biphosphate Enema 132 Ml Btl) 132 ml KS ONE PRN PRN Reason: Constipation Stop: 12/04/23 13:49 Tizanidine HCl (Tizanidine Hcl 4 Mg Tablet) 4 mg PO Q8H [facility] Stop: 11/30/23 16:59 Last Admin: 11/06/23 09:53 Dose: 4 mg (2) T2DM (type 2 diabetes mellitus) Diabetes mellitus complication status: without complication Diabetes mellitus usp insulin use: without ferry terminal supervisor use Qualified Code(s): E11.9 - Type 2 diabetes mellitus without complications (3) HTN (hypertension) Hypertension type: unspecified Qualified Code(s): I10 - Essential (primary) hypertension (4) HLD (hyperlipidemia) Hyperlipidemia type: unspecified Qualified Code(s): E78.5 - Hyperlipidemia, unspecified (5) Hypothyroidism Hypothyroidism type: unspecified Qualified Code(s): E03.9 - Hypothyroidism, u nspecified
--- NOTE | 2023-11-06 13:43 | Orthopedic Progress Note ---
Date of Service November 06, 2023 Assessment & Plan (1) Lumbar compression fracture: Plan: At this time we will continue with physical therapy hopefully to begin transfers to chair and ideally walking in the room. She would be a candidate for rehab 1 able. Admission and Anticipated Discharge Date Admission Date: October 31, 2023 Subjective Back pain controlled patient was able to sit up yesterday. Denies any leg pain. Physical Exam Physical Exam: Patient is in bed at this time. She is constricted testing. Appears comfortable. Results & Data Vital Signs (Past 12 Hours) Vital Signs Temp Pulse Resp BP Pulse Ox O2 Del Method 11/06/23 07:32 36.5 C 52 L 16 100/61 93 Room Air Queries Orthopedic Spine Obesity: Yes Vertebral Fracture Secondary to Osteoporosis: Yes
[2023-11-06] MEDS: bisacodyL 10 MG SUPP PR PRN (14:02)
[2023-11-06] MEDS: CYCLOBENZAPRINE HCL 10 MG TAB PO PRN (15:22)
[2023-11-06] MEDS: SOD PHOSPHATE/SOD BIPHOSPHATE ENEMA 132 ML BTL PR PRN (16:21)
--- NOTE | 2023-11-07 07:49 | Hospitalist Progress Note ---
<Statement entered by Kal Jay, DO - 11/07/23 14:48> I have seen and examined the patient and have discussed the case with the provider above. I have reviewed the advanced practitioner's documentation, and I agree with, and take responsibility for that plan of care. 15 minutes spent on evaluation patient, review of records, coordination with LUISANA. Overall patient does seem depressed due to her overall medical condition. Encouraged patient to do as much activity as she can tolerate. Discussed with LUISANA utilization of Remeron to help with depression and appetite. Plan of care as outlined below Date of Service November 07, 2023 Assessment & Plan (1) Intractable back pain: (2) T2DM (type 2 diabetes mellitus): (3) HTN (hypertension): (4) HLD (hyperlipidemia): (5) Hypothyroidism: Plan This is a 73yo F with a PMH of hypothyroidism, dyslipidemia, HTN, obesity, history of spinal surgeries who presents with intractable back pain and was found to have an L1 compression fracture. Intractable back pain Hx of multiple lumbosacral spine surgery S/p R SI joint revision, on 09/25/[address] Herr Initially discharged to rehab, then re admitted for pain control 10/08- and discharged back to [facility] Sent over from ortho clinic today due to worsening R lower back pain L-spine MRI ordered by Dr. Herr - no significant disc disease or stenosis from L1-S1. However, L1 vertebral body compression fracture noted S/P Kyphoplasty L1 and L2, biopsy of L1, removal of right pedicle screws L2-S1, replacement of instrumentation and placement of antibiotic beads with vancomycin/gentamicin await pathology of L1 Biopsy, currently on IV dexamethasone per Dr. Herr Pain control, continue bowel regimen Mahoney placed for limited mobility and urinary retention - plan to remove after PT works with her today. Check bladder scan and PVR if no improvement PT / OT working with patient. 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 Today, was started on Protonix. Reglan given today with some improvement. If no improvement over next 24 hours consider GI consult Receptive to starting Remeron which can help with depression and appetite. Continue to wean duloxetine. Hypomagnesemia resolved T2DM: on pioglitazone, a1c 6.45, hold actos, NovoLog per protocol Blood sugar stable HTN: Chronic, stable, hold hctz as pt BP continues to remain on lower side HLD: Chronic stable on colesevelam Hypothyroidism: Chronic, stable continue levothyroxine, TSH 6.4 but Free T4 1.34 Depression: pt reports they started her on duloxetine while at [facility] a few weeks ago, she hui to be off this medication, will taper off every other day for 1 week then discontinue As patient has a chronic illness, suspect some situational depression. Remeron may help with being an appetite stimulant and antidepressant. Pt receptive to starting Remeron and will continue to wean duloxetine until discontinued. DVT ppx: off for now due to procedure today, SCDS, will re introduce chemical prophylaxis when feasible Code: FULL CODE PCP: Jadyn Johnson DO Dispo: admitted to medical, will need PT/OT recs when able A total of 42 min was spent coordinating, documenting, and providing care for this patient excluding time spent in the performance of separately billed services. This included personally viewing all current laboratories and imaging studies, medication reconciliation, outpatient chart review, and discussion with specialists. Admission and Anticipated Discharge Date Admission Date: October 31, 2023 Subjective Pt laying in her hospital bed in no apparent distress; however, when talking about her situation, is tearful. Her pain is improved today; she took ONE dose of Toradol over past 24 hours. She was able to sit in the bedside chair this morning, also did feel nauseated, but seems to be improving today. Her diet continues to be poor, but discussed situational depression and appetite stimulation. Some nausea symptoms could be masked as hunger. See outline below. She had a BM with support from a suppository and fleet enema. Plan to DC denzel once she works with PT today. 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 Review of Systems Review of Systems: Neuro: (-) Falls, trauma, slurred speech HEENT: (-) MORALES, dizziness, dysphagia, visual or auditory changes CV: (-) CP, palpitations, swelling Resp: (-) SOB GI: (-) appetite changes, (+) nausea (-) V/D, bowel changes : (-) urinary changes Skin: (-) rashes Psych: (+) anxiety, depression Physical Exam Physical Exam: Neuro: AAOx4, PERRLA, no aphagia, memory changes, CNII-XII grossly intact HEENT: head normocephalic, moist mucus membranes CV: S1/S2, (-) M/G/R, (-) edema, cap refill < 3 seconds. MORGAN Drain has been removed. Resp: Lungs CTA in all cortez. On RA GI: Abdomen S/NT/ND, Ax4 bowel sounds, (-) CVA tenderness : Indwelling mahoney catheter; clear yellow urine Musculoskeletal: 5/5 B/L UE strength, 4/5 B/L LE strength. Uses a walker for ambulation Skin: (-) rashes , (-) erythema. Psych: depressed, tearful mood Results & Data Results & Data Vital Signs (Past 12 Hours) Vital Signs Temp Pulse Resp BP Pulse Ox O2 Del Method 11/06/23 20:43 36.6 C 65 16 111/72 96 Room Air Laboratory Results Short CBC 11/07/23 Range/Units 07:28 WBC 6.91 (4.8-10.8) K/ul Hgb 12.0 (12.0-16.0) g/dl Hct 37.2 (37.0-47.0) % Plt Count 175 (130-400) K/uL BMP 11/07/23 07:28 Sodium 139 Potassium 3.4 L Chloride 103 Carbon Dioxide 28 BUN 7 Creatinine 0.41 L Glucose 87 Calcium 8.4 L (2) T2DM (type 2 diabetes mellitus) Diabetes mellitus complication status: without complication Diabetes mellitus health therapist insulin use: without health therapist use Qualified Code(s): E11.9 - Type 2 diabetes mellitus without complications (3) HTN (hypertension) Hypertension type: unspecified Qualified Code(s): I10 - Essential (primary) hypertension (4) HLD (hyperlipidemia) Hyperlipidemia type: unspecified Qualified Code(s): E78.5 - Hyperlipidemia, unspecified (5) Hypothyroidism Hypothyroidism type: unspecified Qualified Code(s): E03.9 - Hypothyroidism, unspecified
[2023-11-07 07:55] LABS: Hematocrit (blood only) 37.2 % (37.0-47.0); Mean Corpuscular Hemoglobin 28.2 pg (25.0-34.0); Mean Corpuscular Hgb Conc 32.3 g/dL (32.0-36.0); Mean Corpuscular Volume 87.5 fL (80.0-100.0); Mean Platelet Volume 12.5 fL (9.4-12.4); Platelet Count 175 K/uL (130-400); RDW Coefficient of Variation 16.4 % (11.5-14.5); RDW Standard Deviation 52.6 fL (36.4-46.3); Red Blood Count 4.25 M/uL (4.20-5.40); White Blood Count 6.91 K/ul (4.8-10.8)
[2023-11-07] MEDS: FAMOTIDINE 20 MG TAB PO PRN (08:12)
--- NOTE | 2023-11-07 08:21 | Orthopedic Progress Note ---
Date of Service November 07, 2023 Assessment & Plan (1) Lumbar compression fracture: Plan: At this time we will continue physical therapy. Plan for rehab when stable. Admission and Anticipated Discharge Date Admission Date: October 31, 2023 Subjective Patient's back pain is improving. She tolerated sitting up yesterday and short bits of standing. She feels good this morning. Physical Exam Physical Exam: On exam she is neurologically intact. She appears comfortable. Results & Data Vital Signs (Past 12 Hours) Vital Signs Temp Pulse Pulse Resp BP BP Pulse Ox 11/07/23 07:53 36.4 C L 62 16 115/70 94 11/06/23 20:43 36.6 C 65 16 111/72 96 O2 Del Method 11/07/23 07:53 Room Air 11/06/23 20:43 Room Air Queries Orthopedic Spine Obesity: Yes Vertebral Fracture Secondary to Osteoporosis: Yes
[2023-11-07 08:31] LABS: BUN Creatinine Ratio 17.1 (10-20); Calcium 8.4 mg/dl (8.6-10.3); Creatinine Clr Calc Pharmacy 139.9 ml/min; Est GFR (African American) 120.5 ml/min; Est GFR (Non-African American) 103.9 ml/min; Potassium 3.4 mmol/L (3.5-5.1)
[2023-11-07] MEDS: POTASSIUM CHLORIDE CRTAB 20 MEQ TABCR PO STA (09:21)
[2023-11-07] MEDS: PROMETHAZINE 12.5 MG/50.5 ML BAG IV PRN (09:49)
[2023-11-07] MEDS: METOCLOPRAMIDE HCL INJ 5 MG/ML 2 ML VIAL IV PRN (12:02)
[2023-11-07] MEDS: MIRTAZAPINE TAB 15 MG TAB PO SCH (20:56)
--- NOTE | 2023-11-08 07:25 | Hospitalist Progress Note ---
<Statement entered by Kal Jay, - 11/08/23 10:45> I have seen and examined the patient and have discussed the case with the provider above. I have reviewed the advanced practitioner's documentation, and I agree with, and take responsibility for that plan of care. 10 minutes spent on coordination of care. Patient seen and evaluated. Much better spirits today. Had ambulated out of the room today. Ready to have Mahoney catheter removed today. Plan of care as outlined below Date of Service November 08, 2023 Assessment & Plan (1) Intractable back pain: (2) T2DM (type 2 diabetes mellitus): (3) HTN (hypertension): (4) HLD (hyperlipidemia): (5) Hypothyroidism: Plan This is a 73yo F with a PMH of hypothyroidism, dyslipidemia, HTN, obesity, history of spinal surgeries who presents with intractable back pain and was found to have an L1 compression fracture. Intractable back pain Hx of multiple lumbosacral spine surgery S/p R SI joint revision, on 09/25/[address] Herr Initially discharged to rehab, then re admitted for pain control 10/08- and discharged back to [facility] Sent over from ortho clinic today due to worsening R lower back pain L-spine MRI ordered by Dr. Herr - no significant disc disease or stenosis from L1-S1. However, L1 vertebral body compression fracture noted S/P Kyphoplasty L1 and L2, biopsy of L1, removal of right pedicle screws L2-S1, replacement of instrumentation and placement of antibiotic beads with vancomycin/gentamicin await pathology of L1 Biopsy, currently on IV dexamethasone per Dr. Herr Pain control, continue bowel regimen Mahoney placed for limited mobility and urinary retention - plan to remove mahoney catheter after PT works with her today. Check bladder scan and PVR if no improvement PT / OT working with patient. 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 Reglan given today with some improvement. Receptive to starting Remeron which can help with depression and appetite. Depression: situational depression Related to chronic illness. Remeron may help with being an appetite stimulant and antidepressant. Hypomagnesemia resolved T2DM: on pioglitazone, a1c 6.45, hold actos, NovoLog per protocol Blood sugar stable HTN: Chronic, stable, hold hctz as pt BP continues to remain on lower side HLD: Chronic stable on colesevelam Hypothyroidism: Chronic, stable continue levothyroxine, TSH 6.4 but Free T4 1.34 DVT ppx: off for now due to procedure today, SCDS, will re introduce chemical prophylaxis when feasible Code: FULL CODE PCP: Jadyn Johnson DO Dispo: admitted to medical, will need PT/OT recs when able. Goal to discharge to [facility] when medically stable. Hopefully by Saturday. A total of 42 min was spent coordinating, documenting, and providing care for this patient excluding time spent in the performance of separately billed services. This included personally viewing all current laboratories and imaging studies, medication reconciliation, outpatient chart review, and discussion with specialists. Admission and Anticipated Discharge Date Admission Date: October 31, 2023 Subjective Patient sitting in her hospital bed. Just returned from bedside commode. Slept well overnight Nausea improved this morning and was able to tolerate p.o. breakfast Goal to work with physical therapy today with ambulation Normotensive blood pressure this morning. Patient denies headache, dizziness, shortness of breath, chest pain, palpitations, nausea, vomiting, diarrhea Please see A/P for further details regarding plan of care Review of Systems Review of Systems: Neuro: (-) Falls, trauma, slurred speech HEENT: (-) MORALES, dizziness, dysphagia, visual or auditory changes CV: (-) CP, palpitations, swelling Resp: (-) SOB GI: (-) appetite changes, (+) nausea (-) V/D, bowel changes : (-) urinary changes Skin: (-) rashes Psych: (+) anxiety, depression Physical Exam Physical Exam: Neuro: AAOx4, PERRLA, no aphagia, memory changes, CNII-XII grossly intact HEENT: head normocephalic, moist mucus membranes CV: S1/S2, (-) M/G/R, (-) edema, cap refill < 3 seconds. MORGAN Drain has been removed. Resp: Lungs CTA in all [place]. On RA GI: Abdomen S/NT/ND, Ax4 bowel sounds, (-) CVA tenderness : Indwelling mahoney catheter; clear yellow urine Musculoskeletal: 5/5 B/L UE strength, 4/5 B/L LE strength. Uses a walker for ambulation Skin: (-) rashes , (-) erythema. Psych: Euthymic mood Results & Data Results & Data Vital Signs (Past 12 Hours) Vital Signs Temp Pulse Resp BP Pulse Ox O2 Del Method 11/07/23 19:48 36.7 C 54 L 12 99/62 L 94 Room Air (2) T2DM (type 2 diabetes mellitus) Diabetes mellitus complication status: without complication Diabetes mellitus lobsterman insulin use: without fpc use Qualified Code(s): E11.9 - Type 2 diabetes mellitus without complications (3) HTN (hypertension) Hypertension type: unspecified Qualified Code(s): I10 - Essential (primary) hypertension (4) HLD (hyperlipidemia) Hyperlipidemia type: unspecified Qualified Code(s): E78.5 - Hyperlipidemia, unspecified (5) Hypothyroidism Hypothyroidism type: unspecified Qualified Code(s): E03.9 - Hypothyroidism, unspecified
[2023-11-08] MEDS: MAGNESIUM HYDROXIDE SUSP 30 ML UDC PO PRN (09:05)
--- NOTE | 2023-11-08 10:42 | Orthopedic Progress Note ---
Date of Service November 08, 2023 Assessment & Plan (1) Lumbar compression fracture: Plan: At this time we will continue physical therapy. Hopefully discharge to rehab Saturday. Admission and Anticipated Discharge Date Admission Date: October 31, 2023 Subjective Back pain controlled. She is tolerating physical therapy. Physical Exam Physical Exam: On exam patient is currently in bed. She is consented testing. Peers comfortable. Results & Data Vital Signs (Past 12 Hours) Vital Signs Temp Pulse Pulse Resp BP Pulse Ox O2 Del Method 11/08/23 07:36 36.6 C 66 65 16 121/61 94 Room Air Queries Orthopedic Spine Obesity: Yes Vertebral Fracture Secondary to Osteoporosis: Yes
[2023-11-08 11:09] LABS: Hematocrit (blood only) 37.8 % (37.0-47.0); Hemoglobin 12.3 g/dl (12.0-16.0); Mean Corpuscular Hemoglobin 28.7 pg (25.0-34.0); Mean Corpuscular Hgb Conc 32.5 g/dL (32.0-36.0); Mean Corpuscular Volume 88.1 fL (80.0-100.0); Mean Platelet Volume 12.4 fL (9.4-12.4); Platelet Count 196 K/uL (130-400); RDW Coefficient of Variation 15.1 % (11.5-14.5); RDW Standard Deviation 49.2 fL (36.4-46.3); Red Blood Count 4.29 M/uL (4.20-5.40); White Blood Count 10.02 K/ul (4.8-10.8)
[2023-11-08 11:34] LABS: Calcium 8.8 mg/dl (8.6-10.3); Creatinine Clr Calc Pharmacy 114.7 ml/min; Est GFR (African American) 112.9 ml/min; Est GFR (Non-African American) 97.4 ml/min; Potassium 3.9 mmol/L (3.5-5.1)
[2023-11-08] MEDS: ALUMINUM/MAGNESIUM SUSP 30 ML UDC PO PRN (16:15)
[2023-11-08] MEDS: SODIUM CHLORIDE 0.9% 500 ML IV SCH (18:21)
[2023-11-09] MEDS: SODIUM CHLORIDE 0.9% 1,000 ML IV SCH (00:21)
--- NOTE | 2023-11-09 08:06 | Orthopedic Progress Note ---
Date of Service November 09, 2023 Assessment & Plan (1) Lumbar compression fracture: Plan: Patient is stable at this point. She is doing much better. She is to continue with mobilization efforts. Will continue with GI DVT prophylaxis and advance her bowel regimen. Our plan [facility] once a bed is available next week. Admission and Anticipated Discharge Date Admission Date: October 31, 2023 Subjective Patient was seen bedside in room 309. She states she still is having some pain but it is better than it had been. She had been up and walking yesterday. She does feel that she is somewhat constipated. They tried disimpaction yesterday. She is on a bowel regimen at this point. Other than that she seems to doing better. She denies any other numbness, tingling, or paresthesias. Physical Exam Physical Exam: On exam her abdomen is mildly tender. She has no rebound tenderness. No focal tenderness. Her strength and sensation are both intact her calves are supple and nontender. She is alert and oriented. Cardiovascular exam reveals no gross abnormalities Results & Data Vital Signs (Past 12 Hours) Vital Signs BP 11/08/23 23:21 129/77 (1) Lumbar compression fracture Encounter type: subsequent encounter
[2023-11-09] MEDS: dexAMETHasone 4 MG TAB PO SCH (10:18)
--- NOTE | 2023-11-09 13:19 | Hospitalist Progress Note ---
Date of Service November 09, 2023 Assessment & Plan (1) Lumbar compression fracture: (2) T2DM (type 2 diabetes mellitus): (3) HTN (hypertension): (4) HLD (hyperlipidemia): (5) Hypothyroidism: Plan Patient is making significant improvements. Ambulating much better Bowel regimen has been effective Extensive review of patient's medications, patient on scheduled Zanaflex this can cause some hypotension and persistent nausea. Patient's muscle spasms well- controlled will discontinue scheduled Zanaflex. Transition to oral Decadron and begin to taper Glucoses well-controlled continue current treatment plan Continue bowel regimen Anticipate patient will be ready for rehab when final destination coordinated, Patient now pursuing possible placement to [facility] Admission and Anticipated Discharge Date Admission Date: October 31, 2023 Subjective Patient is feeling much better. She reports she had a large "blowout" BM today after doing some activity. States her nausea is improved. And she is ambulating much better. Reports pain is controlled Physical Exam Physical Exam: Constitutional: Alert HEENT: Mucous membranes moist. Lungs: Clear to auscultation, decreased, no wheezes rales or rhonchi CV: S1-S2, regular Abdomen: Soft, nontender, nondistended Extremities: No significant edema Neuro: No focal deficits Psych: Cooperative, normal mood, much brighter in affect Results & Data Results & Data Vital Signs (Past 12 Hours) Vital Signs Temp Pulse Resp BP Pulse Ox O2 Del Method 11/09/23 08:30 36.3 C L 56 L 12 136/68 96 Room Air (1) Lumbar compression fracture Encounter type: subsequent encounter (2) T2DM (type 2 diabetes mellitus) Diabetes mellitus terminal gauger insulin use: without long-term use Diabetes mellitus complication status: without complication Qualified Code(s): E11.9 - Type 2 diabetes mellitus without complications (3) HTN (hypertension) Hypertension type: unspecified Qualified Code(s): I10 - Essential (primary) hypertension (4) HLD (hyperlipidemia) Hyperlipidemia type: unspecified Qualified Code(s): E78.5 - Hyperlipidemia, unspecified (5) Hypothyroidism Hypothyroidism type: unspecified Qualified Code(s): E03.9 - Hypothyroidism, unspecified
[2023-11-10 01:52] LABS: Appearance Urine Clear (Clear); Bilirubin Urine Negative (Negative); Blood Urine Negative (Negative); Color Urine Yellow; Glucose Urine UA Negative (Negative); Ketones Urine 1+ (Negative); Leukocyte Esterase Urine Negative (Negative); Nitrite Urine Negative (Negative); Protein Urine Negative (Negative); Specific Gravity Urine 1.012 (1.000-1.030); Urobilinogen Urine Negative (Negative); pH Urine 7.5 (4.5-7.5)
[2023-11-10 03:51] LABS: Bacteria Urine Automated None Seen (None Seen); Cast Urine Automated 0-2 /lpf (0-2); Epithelial Cell Urine Auto 0-2 /hpf (0-2); RBC Urine Automated 0-2 /hpf (0-2); WBC Urine Automated 0-5 /hpf (0-5)
[2023-11-10 06:47] LABS: Creatinine Clr Calc Pharmacy 139.9 ml/min; Est GFR (African American) 120.5 ml/min; Est GFR (Non-African American) 103.9 ml/min
[2023-11-10 07:57] LABS: Vitamin D 1,25 16 pg/mL (18-72); Vitamin D2,1,25 <8 pg/mL; Vitamin D3,1,25 16 pg/mL
--- NOTE | 2023-11-10 08:09 | Orthopedic Progress Note ---
Date of Service November 10, 2023 Assessment & Plan (1) Neurogenic claudication due to lumbar spinal stenosis: Plan: Patient still having significant pain. Believe that the utilization of pain medications is leading to her nausea however. She may want to minimize the amount of pain medication that she is taking. She is pricila keep on with her antiemetic and keep on a bowel regimen. Our plan [facility] this [facility]. Admission and Anticipated Discharge Date Admission Date: October 31, 2023 Subjective Patient was seen bedside in room 309. She is having some more difficulties today. She has little bit of urinary retention and also has been nauseous. Prior to seeing patient she just received an antiemetic. She also has been using her pain medications quite frequently. She is not having any radicular complaints. All the pain is in the lower portion of her back. She denies any other numbness, tingling, or paresthesias. Physical Exam Physical Exam: On exam the patient looks distressed. Her lower extremity motor exam reveals no focal atrophy her strength and sensation are both intact her abdomen soft and nontender her calves are supple and nontender. She is holding an emesis bag. Cardiovascular exam reveals no gross abnormalities. Results & Data Vital Signs (Past 12 Hours) Vital Signs Temp Pulse Resp BP Pulse Ox O2 Del Method 11/10/23 07:22 36.5 C 80 16 126/72 96 Room Air
--- NOTE | 2023-11-10 10:10 | Hospitalist Progress Note ---
Date of Service November 10, 2023 Assessment & Plan (1) Lumbar compression fracture: (2) T2DM (type 2 diabetes mellitus): (3) HTN (hypertension): (4) HLD (hyperlipidemia): (5) Hypothyroidism: (6) Urine retention: Plan Patient continuing to recover from multiple spine surgeries and most recently compression fracture. Pain is controlled. Patient recurrent nausea and vomiting. Suspect multifactorial, possible steroid gastritis, possibly due to her urine retention, possibly somewhat due to some depression and frustration of her medical conditions Schedule Pepcid Discontinue IV Dilaudid, patient has not received any doses Discontinue Remeron, does not seem to be providing patient benefit and she believes it may be contributing to her nausea and vomiting Continue to do bladder scan, may need to have Grayson catheter replaced if continues to have retention until she is more active and ambulatory Trial of Ativan for her nausea, may help with some of her anxiety about her medical condition as well Continue therapies Check electrolytes and renal function in a.m. Continue current diabetes management with insulin, glucose is stable Blood pressures improved with discontinuation of the Zanaflex Patient will be medically ready for rehab facility when bed available Admission and Anticipated Discharge Date Admission Date: October 31, 2023 Subjective Yesterday afternoon evening patient again had recurrent nausea vomiting. An upset stomach. Also noted to have significant urine retention. This morning still feels like she has an upset stomach was able to tolerate a popsicle. Concerned that the nausea may be from the Remeron. Does not think it is really helping much with her appetite. Physical Exam Physical Exam: Constitutional: Alert, nontoxic HEENT: Mucous membranes moist. Lungs: Clear to auscultation, decreased, no wheezes rales or rhonchi CV: S1-S2, regular Abdomen: Soft, nontender, nondistended Extremities: No significant edema Neuro: No focal deficits Psych: Cooperative, depressed affect Results & Data Results & Data Vital Signs (Past 12 Hours) Vital Signs Temp Pulse Resp BP Pulse Ox O2 Del Method 11/10/23 07:22 36.5 C 80 16 126/72 96 Room Air Diagnostic Findings Reviewed imaging, laboratory and diagnostic studies. Pertinent findings as below. (1) Lumbar compression fracture Encounter type: subsequent encounter (2) T2DM (type 2 diabetes mellitus) Diabetes mellitus assistant terminal manager insulin use: without assistant terminal manager use Diabetes mellitus complication status: without complication Qualified Code(s): E11.9 - Type 2 diabetes mellitus without complications (3) HTN (hypertension) Hypertension type: unspecified Qualified Code(s): I10 - Essential (primary) hypertension (4) HLD (hyperlipidemia) Hyperlipidemia type: unspecified Qualified Code(s): E78.5 - Hyperlipidemia, unspecified (5) Hypothyroidism Hypothyroidism type: unspecified Qualified Code(s): E03.9 - Hypothyroidism, unspecified
[2023-11-10] MEDS: FAMOTIDINE 20 MG TAB PO SCH (20:03)
[2023-11-10] MEDS: ACETAMINOPHEN 1,000 MG/100 ML VIAL IV STA (23:52)
[2023-11-11 06:24] LABS: Hematocrit (blood only) 39.1 % (37.0-47.0); Hemoglobin 12.7 g/dl (12.0-16.0); Mean Corpuscular Hemoglobin 28.3 pg (25.0-34.0); Mean Corpuscular Hgb Conc 32.5 g/dL (32.0-36.0); Mean Corpuscular Volume 87.1 fL (80.0-100.0); Mean Platelet Volume 12.3 fL (9.4-12.4); Platelet Count 242 K/uL (130-400); RDW Coefficient of Variation 16.4 % (11.5-14.5); Red Blood Count 4.49 M/uL (4.20-5.40); White Blood Count 8.74 K/ul (4.8-10.8)
[2023-11-11 06:33] LABS: BUN Creatinine Ratio 16.7 (10-20); Calcium 8.8 mg/dl (8.6-10.3); Creatinine Clr Calc Pharmacy 119.5 ml/min; Est GFR (African American) 114.4 ml/min; Est GFR (Non-African American) 98.7 ml/min; Magnesium 1.8 mg/dl (1.7-2.4); Potassium 3.1 mmol/L (3.5-5.1)
[2023-11-11] MEDS: LORazepam 0.5 MG TAB PO PRN (07:33)
[2023-11-11] MEDS: POTASSIUM CHLORIDE CRTAB 20 MEQ TABCR PO SCH (08:51)
--- NOTE | 2023-11-11 10:27 | Orthopedic Progress Note ---
Date of Service November 11, 2023 Assessment & Plan (1) Lumbar compression fracture: Plan: Patient steadily improving with physical therapy. We will have her discharged to SNF when bed available. Admission and Anticipated Discharge Date Admission Date: October 31, 2023 Subjective Back pain controlled ambulation improving. No leg pain. Physical Exam Physical Exam: Patient is currently in bed. Is extra strength testing. Results & Data Vital Signs (Past 12 Hours) Vital Signs Temp Pulse Resp BP Pulse Ox O2 Del Method 11/11/23 07:39 36.5 C 70 16 154/79 H 95 Room Air 11/11/23 07:25 Room Air Queries Orthopedic Spine Obesity: Yes Vertebral Fracture Secondary to Osteoporosis: Yes (1) Lumbar compression fracture Encounter type: subsequent encounter
--- NOTE | 2023-11-11 12:27 | Hospitalist Progress Note ---
Date of Service November 11, 2023 Assessment & Plan (1) Lumbar compression fracture: (2) T2DM (type 2 diabetes mellitus): (3) HTN (hypertension): (4) HLD (hyperlipidemia): (5) Hypothyroidism: (6) Urine retention: (7) Chronic nausea: (8) Poor appetite: Plan Patient continues to have chronic nausea and poor appetite. No intervention seems to be effective. Denies abdominal pain. Moving bowels regularly. Replace potassium Recommend consulting GI for further evaluation Discontinue Decadron Continue H2 brittany and PPI Encourage up and out of bed and activities Continue to pursue rehab placement, communication with care management, bed available on Saturday Admission and Anticipated Discharge Date Admission Date: October 31, 2023 Subjective Patient continues to be intermittently nauseated, poor oral intake of even liquids. Spends a lot of time reclined in bed. States that it is difficult for her to sit up. Reports that urinary retention is improving. Did not need straight cath Physical Exam Physical Exam: Constitutional: Alert HEENT: Mucous membranes moist. Lungs: Clear to auscultation, decreased, no wheezes rales or rhonchi CV: S1-S2, regular Abdomen: Soft, nontender, nondistended Extremities: No significant edema Neuro: No focal deficits Psych: Cooperative, depressed affect Results & Data Results & Data Vital Signs (Past 12 Hours) Vital Signs Temp Pulse Resp BP Pulse Ox O2 Del Method 11/11/23 07:39 36.5 C 70 16 154/79 H 95 Room Air 11/11/23 07:25 Room Air Diagnostic Findings Reviewed imaging, laboratory and diagnostic studies. Pertinent findings as below. Potassium 3.1 (1) Lumbar compression fracture Encounter type: subsequent encounter (2) T2DM (type 2 diabetes mellitus) Diabetes mellitus complication status: without complication Diabetes mellitus bed bug exterminator insulin use: without bed bug exterminator use Qualified Code(s): E11.9 - Type 2 diabetes mellitus without complications (3) HTN (hypertension) Hypertension type: unspecified Qualified Code(s): I10 - Essential (primary) hypertension (4) HLD (hyperlipidemia) Hyperlipidemia type: unspecified Qualified Code(s): E78.5 - Hyperlipidemia, unspecified (5) Hypothyroidism Hypothyroidism type: unspecified Qualified Code(s): E03.9 - Hypothyroidism, unspecified
--- NOTE | 2023-11-11 13:21 | Gastrointestinal Consultation ---
Date of Consultation November 11, 2023 Assessment & Plan (1) Poor appetite: (2) Chronic nausea: Plan Suspect this may be related to narcotic use/constipation. -Obtain KUB now -Pending results can address bowel regimen & antiemetics -Continue Protonix but increase to 40 mg BID in the event that this is admissions representative of PUD, though patient notes a very similar experience in the past with another orthopedic surgery. Supervising Physician Co-Signing Physician Notes I saw and examined this patient with our nurse practitioner and agree with her assessment and plan. Etiology of poor appetite is multifactorial related to recent multiple surgeries, prolonged hospitalizations, narcotic pain medication and persistent pain. It could be an element of depression due to her multiple medical problems as well. KUB to assess whether stool burden is a factor. Continue symptomatic relief. Control pain better. Will continue to monitor. History of Present Illness Reason for Consultation: Loss of appetite, nausea Attending Physician: Timothy Herr, DO History of Present Illness Patient is a 73 yo female with a history of recent orthopedic surgeries. She notes that in August she had surgical intervention on her SI. She notes that after that she was on narcotics and struggled with bowel movements being incomplete. She notes that when she has surgeries she has decreased appetite and food aversions for some time post-op. She presented to the hospital due to a lumbar compression fracture. On 11/04/23 she underwent a kyphoplasty with Dr. Herr. She notes ongoing issues with not even wanting to put food in her mouth. She denies heartburn or reflux. She is prescribed Protonix 40 mg daily. She denies history of ulcers. She is on narcotics given her ortho issues. She denies hematemesis, BRBPR, melena. She notes a history of a colonoscopy within the past 5 years that was unremarkable ([facility]). She notes she has been treated for fecal impaction in the past. She takes Colchicine daily as well as Welchol at home due to a history of post-cholecystectomy diarrhea. She takes Colace at home as well. She has been given a variety of things since admission, but nothing consistent including: Zofran, Promethazine, Miralax, Reglan. Allergies Allergy/AdvReac Type Severity Reaction Status Date / Time Sulfa (Sulfonamide Allergy Intermediate Rash Verified 09/24/23 16:58 Antibiotics) tramadol Allergy Mild Verified 10/31/23 16:17 baclofen Allergy Verified 10/31/23 16:17 gabapentin AdvReac Severe Nightmare Verified 09/24/23 16:58 Home Medications Medication Instructions Recorded Confirmed Type colesevelam 625 mg tablet (WelChol) 1,250 mg PO BIDM 09/11/21 10/31/23 History pioglitazone 15 mg tablet 15 mg PO QAM 09/11/21 10/31/23 History cholecalciferol (vitamin D3) 50 50 mcg PO DAILY 09/22/23 10/31/23 History mcg (2,000 unit) tablet (Vitamin D3) colchicine 0.6 mg tablet (Colcrys) 0.6 mg PO BID PRN Gout Flare 09/22/23 10/31/23 History levothyroxine 200 mcg tablet 200 mcg PO QAM 09/22/23 10/31/23 History ondansetron 4 mg disintegrating 4 mg translingual Q6 PRN 09/24/23 10/31/23 History tablet NAUSEA/VOMITING acetaminophen 325 mg tablet 325 mg PO Q6 10/09/23 10/31/23 History acetaminophen 500 mg tablet 500 mg PO Q6H 10/09/23 10/31/23 History docusate sodium 100 mg capsule 100 mg PO BID 10/09/23 10/31/23 History oxycodone 5 mg tablet 5 mg PO Q6H PRN pain #30 tabs 10/10/23 10/31/23 Rx duloxetine 30 mg capsule,delayed 30 mg PO DAILY 10/31/23 10/31/23 History release tizanidine 4 mg tablet 4 mg PO Q8H 10/31/23 10/31/23 History lorazepam 0.5 mg tablet 0.5 mg PO Q8H PRN anxiety #20 tabs 11/11/23 Rx Patient History Medical History 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 Muscle spasm severe History of COVID-19 03/2022- mild symptoms Lumbar disc herniation with radiculopathy Surgical History Hx of bilateral cataract extraction History of lumbar spinal fusion 01/21/2023 [facility] L2-L4 decompression/fusion (09/14/21): Grade view 1, Garcia#2, ETT 7.0 at [facility] Nausea and vomiting after administration of anesthetic agent states scopolamine patch worked very well after last procedure Hx of dilation and curettage Hx of arthroscopy of left knee meniscus injury Hx of cholecystectomy Hx of tonsillectomy History of x2 History of total knee replacement Left 2012, Right 2006 Family History Mother Sclerosing cholangitis Father Alcohol use disorder Social History Smoking Status: Never smoker Second Hand Exposure: No; Do You Dip or Chew Tobacco: No; Hx Alcohol Use: No Hx Substance Use: No Preferred Language: Albanian Communication Ability: Effective Label Sewer Required: No Beliefs That Will Affect Care: None marital status: Current Living Situation: Spouse Current Living Situation Comment: Home with current occupational status: retired Other Information That Helps Us Care for You: No Feels Safe at Home: Yes Safety Concerns: Feels Safe At This Time Assistive Devices: Cane and Walker Review of Systems Constitutional: no increased appetite Respiratory: no cough and no dyspnea Cardiovascular: no chest pain Gastrointestinal: decreased appetite Physical Exam Constitutional: well developed Respiratory: normal respiratory effort Gastrointestinal (Abdomen): Inspection/Auscultation: + hypoactive bowel sounds Percussion/Palpation: abdomen nontender Psychiatric: Orientation: alert and oriented x 3 Results & Data Vital Signs (Past 12 Hours) Vital Signs Temp Pulse Resp BP Pulse Ox O2 Del Method 11/11/23 07:39 36.5 C 70 16 154/79 H 95 Room Air 11/11/23 07:25 Room Air Laboratory Results Laboratory Results - last 48 hr 11/06/23 11/09/23 11/10/23 07:03 20:26 01:30 WBC RBC Hgb Hct MCV MCH MCHC RDW Std Deviation RDW Coeff of Carine Plt Count MPV Sodium Potassium Chloride Carbon Dioxide Anion Gap BUN Creatinine Est Cr Clr Drug Dosing Est GFR ( Amer) Est GFR (Non-Af Amer) BUN/Creatinine Ratio Glucose POC Glucose 111 H Calcium Magnesium Vit D 1,25-Dihyd Total 16 L 1,25 Dihydroxy Vit D2 <8 1,25 Dihydroxy Vit D3 16 Urine Color Yellow Urine Appearance Clear Urine pH 7.5 Ur Specific [place] 1.012 Urine Protein Negative Urine Glucose (UA) Negative Urine Ketones 1+ H Urine Blood Negative Urine Nitrite Negative Urine Bilirubin Negative Urine Urobilinogen Negative Ur Leukocyte Esterase Negative Urine WBC (Auto) 0-5 Urine RBC (Auto) 0-2 U Hyaline Cast (Auto) 0-2 U Epithel Cells (Auto) 0-2 Urine Bacteria (Auto) None Seen 11/10/23 11/10/23 11/10/23 05:52 07:34 11:37 WBC RBC Hgb Hct MCV MCH MCHC RDW Std Deviation RDW Coeff of Carine Plt Count MPV Sodium Potassium Chloride Carbon Dioxide Anion Gap BUN Creatinine 0.41 L Est Cr Clr Drug Dosing 139.9 Est GFR ( Amer) 120.5 Est GFR (Non-Af Amer) 103.9 BUN/Creatinine Ratio Glucose POC Glucose 91 117 H Calcium Magnesium Vit D 1,25-Dihyd Total 1,25 Dihydroxy Vit D2 1,25 Dihydroxy Vit D3 Urine Color Urine Appearance Urine pH Ur Specific [place] Urine Protein Urine Glucose (UA) Urine Ketones Urine Blood Urine Nitrite Urine Bilirubin Urine Urobilinogen Ur Leukocyte Esterase Urine WBC (Auto) Urine RBC (Auto) U Hyaline Cast (Auto) U Epithel Cells (Auto) Urine Bacteria (Auto) 11/10/23 11/10/23 11/11/23 16:37 20:39 05:59 WBC 8.74 RBC 4.49 Hgb 12.7 Hct 39.1 MCV 87.1 MCH 28.3 MCHC 32.5 RDW Std Deviation 52.0 H RDW Coeff of Carine 16.4 H Plt Count 242 MPV 12.3 Sodium 137 Potassium 3.1 L Chloride 100 Carbon Dioxide 29 Anion Gap 8 BUN 8 Creatinine 0.48 L Est Cr Clr Drug Dosing 119.5 Est GFR ( Amer) 114.4 Est GFR (Non-Af Amer) 98.7 BUN/Creatinine Ratio 16.7 Glucose 74 POC Glucose 171 H 130 H Calcium 8.8 Magnesium 1.8 Vit D 1,25-Dihyd Total 1,25 Dihydroxy Vit D2 1,25 Dihydroxy Vit D3 Urine Color Urine Appearance Urine pH Ur Specific [place] Urine Protein Urine Glucose (UA) Urine Ketones Urine Blood Urine Nitrite Urine Bilirubin Urine Urobilinogen Ur Leukocyte Esterase Urine WBC (Auto) Urine RBC (Auto) U Hyaline Cast (Auto) U Epithel Cells (Auto) Urine Bacteria (Auto) 11/11/23 11/11/23 11/11/23 07:58 11:24 16:38 WBC RBC Hgb Hct MCV MCH MCHC RDW Std Deviation RDW Coeff of Carine Plt Count MPV Sodium Potassium Chloride Carbon Dioxide Anion Gap BUN Creatinine Est Cr Clr Drug Dosing Est GFR ( Amer) Est GFR (Non-Af Amer) BUN/Creatinine Ratio Glucose POC Glucose 81 80 95 Calcium Magnesium Vit D 1,25-Dihyd Total 1,25 Dihydroxy Vit D2 1,25 Dihydroxy Vit D3 Urine Color Urine Appearance Urine pH Ur Specific [place] Urine Protein Urine Glucose (UA) Urine Ketones Urine Blood Urine Nitrite Urine Bilirubin Urine Urobilinogen Ur Leukocyte Esterase Urine WBC (Auto) Urine RBC (Auto) U Hyaline Cast (Auto) U Epithel Cells (Auto) Urine Bacteria (Auto) PG Care Time/CCT Total # of Minutes Spent Total Time Spent with Patient: Total time spent is greater than 50% in coordination of care (as documented) at patient's floor/unit and/or counseling patient: Coding Level of Care Code 56117 INT INP/OBS CARE 3/75MIN Diagnoses Poor appetite R63.0 Chronic nausea R11.0
[2023-11-11] MEDS: oxyCODONE HCL IR 5 MG TAB (IMMEDIATE RELEASE) PO PRN (13:31)
[2023-11-11] MEDS: oxyCODONE HCL IR 5 MG TAB (IMMEDIATE RELEASE) PO STA (16:46)
[2023-11-11] MEDS: SODIUM CHLORIDE 0.9% 500 ML IV SCH (17:03)
--- NOTE | 2023-11-11 17:46 | XRay Report ---
KUB HISTORY: Constipation, nausea, loss of appetite COMPARISON: None. FINDINGS: The bowel gas pattern is unremarkable. There are no dilated loops of small bowel to suggest an obstruction. No renal calculi. No ureteral calculi. No pneumoperitoneum or pneumatosis. Postoper ative changes again noted within the lumbosacral spine. There are skin maximus also noted within the back. Rotated study. Vertebroplasty at L1. IMPRESSION: 1. Nonobstructive bowel gas pattern. 2. Postoperative changes within the lumbosacral spine. ACT 112: Negative or not required by law. Electronically signed by: Lele Pemberton M.D. 11/11/2023 5:44 PM
[2023-11-11] MEDS: PANTOprazole 40 MG TAB PO SCH (20:27)
[2023-11-11] MEDS: ACETAMINOPHEN 500 MG TAB PO SCH (20:27)
--- NOTE | 2023-11-12 10:24 | Gastroenterology Progress Note ---
Date of Service November 12, 2023 Assessment & Plan (1) Poor appetite: Plan: Likely multifactorial given prolonged hospitalization, multiple recent surgeries, limited mobility & ongoing narcotic use. Can utilize Miralax daily for a good bowel regimen. She will also continue Protonix 40 mg BID. She has prn antiemetics ordered as well. Admission and Anticipated Discharge Date Admission Date: October 31, 2023 Supervising Physician Co-Signing Physician Notes Clinically improved today less pain and tolerated regular diet. Abdomen soft nontender. Continue bowel regimen plan is for rehab transfer in AM. Subjective Patient is a 73 yo female with decreased appetite post-op. She notes that she slept well last night and feels significantly improved. She also notes that she emptied her bowels well this AM and notices improvement. She only acknowledges 1 episode of brief nausea since we last spoke. KUB was reassuring without acute abnormality. She is going to an [facility] tomorrow for further rehabilitation. Review of Systems Gastrointestinal: + nausea (improved) and + constipation ( improved); no abdominal pain and no blood in stools Physical Exam Constitutional: well developed Respiratory: normal respiratory effort Musculoskeletal: Head/Neck/Chest: normocephalic Psychiatric: Orientation: alert and oriented x 3 Results & Data Results & Data Vital Signs (Past 12 Hours) Vital Signs Temp Pulse Resp BP Pulse Ox O2 Del Method 11/12/23 07:23 36.6 C 87 16 119/74 96 Room Air PG Care Time/CCT Total # of Minutes Spent Total Time Spent with Patient: Total time spent is greater than 50% in coordination of care (as documented) at patient's floor/unit and/or counseling patient: Coding Level of Care Code 89406 SUB INP/OBS CARE 3/50MIN Diagnoses Poor appetite R63.0
--- NOTE | 2023-11-12 10:51 | Orthopedic Progress Note ---
Date of Service November 12, 2023 Assessment & Plan (1) Lumbar compression fracture: Plan: At this time we will continue physical therapy and plan for discharge to her rehab tomorrow. Admission and Anticipated Discharge Date Admission Date: October 31, 2023 Subjective Patient's back pain is controlled. She is tolerating physical therapy. Physical Exam Physical Exam: On exam she is in the chair. She is comfortable. Distracted testing. Results & Data Vital Signs (Past 12 Hours) Vital Signs Temp Pulse Resp BP Pulse Ox O2 Del Method 11/12/23 07:23 36.6 C 87 16 119/74 96 Room Air Queries Orthopedic Spine Obesity: Yes Vertebral Fracture Secondary to Osteoporosis: Yes (1) Lumbar compression fracture Encounter type: subsequent encounter
[2023-11-12] MEDS: oxyCODONE HCL IR 5 MG TAB (IMMEDIATE RELEASE) PO PRN (11:10)
--- NOTE | 2023-11-12 13:33 | Hospitalist Progress Note ---
Date of Service November 12, 2023 Assessment & Plan (1) Lumbar compression fracture: (2) T2DM (type 2 diabetes mellitus): (3) HTN (hypertension): (4) HLD (hyperlipidemia): (5) Hypothyroidism: (6) Urine retention: (7) Chronic nausea: (8) Poor appetite: (9) Chronic SI joint pain: Plan Patient's status post lumbar surgery most recent kyphoplasty with acute flare of her chronic SI joint dysfunction Patient also with persistent nausea and decreased appetite GI consultation appreciated Continue current pain management Continue to encourage activity Continue to encourage oral intake Patient follows chronically with Dr. Herr for her SI joint dysfunction for any further interventions will be referred to him Anticipate discharge to rehab tomorrow Admission and Anticipated Discharge Date Admission Date: October 31, 2023 Subjective Patient states she feels much better today. Pain is significantly improved. Reports that she has chronic issues with her SI joint. Continues issues with urinary retention Physical Exam Physical Exam: Constitutional: Alert HEENT: Mucous membranes moist. Lungs: Clear to auscultation, decreased, no wheezes rales or rhonchi CV: S1-S2, regular Abdomen: Soft, nontender, nondistended Extremities: No significant edema Neuro: No focal deficits Psych: Cooperative, normal mood Results & Data Results & Data Vital Signs (Past 12 Hours) Vital Signs Temp Pulse Resp BP Pulse Ox O2 Del Method 11/12/23 07:23 36.6 C 87 16 119/74 96 Room Air Diagnostic Findings Reviewed imaging, laboratory and diagnostic studies. Pertinent findings as below. KUB no evidence of obstruction (1) Lumbar compression fracture Encounter type: subsequent encounter (2) T2DM (type 2 diabetes mellitus) Diabetes mellitus termite exterminator helper insulin use: without termite exterminator helper use Diabetes mellitus complication status: without complication Qualified Code(s): E11.9 - Type 2 diabetes mellitus without complications (3) HTN (hypertension) Hypertension type: unspecified Qualified Code(s): I10 - Essential (primary) hypertension (4) HLD (hyperlipidemia) Hyperlipidemia type: unspecified Qualified Code(s): E78.5 - Hyperlipidemia, unspecified (5) Hypothyroidism Hypothyroidism type: unspecified Qualified Code(s): E03.9 - Hypothyroidism, unspecified
[2023-11-12] MEDS ORDERED: POLYETHYLENE (MIRALAX) 17 GM PACK PO SCH (21:00)
[2023-11-13] MEDS: LORazepam 0.5 MG TAB PO PRN (05:27)
[2023-11-13 06:08] LABS: BUN Creatinine Ratio 23.5 (10-20); Calcium 8.6 mg/dl (8.6-10.3); Creatinine Clr Calc Pharmacy 112.4 ml/min; Est GFR (African American) 112.1 ml/min; Est GFR (Non-African American) 96.7 ml/min; Magnesium 1.7 mg/dl (1.7-2.4)
[2023-11-13 07:14] VITALS: RESP 18; TEMP 97.9; O2SAT 95
[2023-11-13] MEDS: oxyCODONE HCL IR 5 MG TAB (IMMEDIATE RELEASE) PO PRN (07:40)
[2023-11-13] MEDS: POTASSIUM CHLORIDE CRTAB 20 MEQ TABCR PO STA (07:47)
[2023-11-13] MEDS: POLYETHYLENE (MIRALAX) 17 GM PACK PO SCH (07:59)
[2023-11-13] MEDS: SODIUM CHLORIDE 0.9% 1,000 ML IV SCH (08:00)
--- NOTE | 2023-11-13 09:13 | Hospitalist Progress Note ---
Date of Service November 13, 2023 Assessment & Plan (1) Lumbar compression fracture: (2) T2DM (type 2 diabetes mellitus): (3) HTN (hypertension): (4) HLD (hyperlipidemia): (5) Hypothyroidism: (6) Urine retention: (7) Chronic nausea: (8) Poor appetite: (9) Chronic SI joint pain: Plan Extensive conversation with the patient at bedside. Informed her that we evaluated her extensively and did not find any other acute medical issues besides her back and SI joint issues. She is seen by GI specialist. Explained to her that I really think her nausea is due to immobility, depression, anxiety about her general condition and that she really needs to get to rehab where she can do more therapies, be more active and potentially even socialize a bit more. Patient is in full agreement with this and understands need to progress to rehab Replace potassium orally prior to discharge Fluid bolus this morning for slightly decreased urine output Maintain Grayson catheter at discharge, patient is having recurrent retention most likely due to her relative immobility. Recommend voiding trial in 7 to 10 days when her activity increases Continue some supplemental potassium in the next few days at rehab Consider BMP in 7 to 10 days. Medically maximized for anticipated discharge to rehab today. Admission and Anticipated Discharge Date Admission Date: October 31, 2023 Subjective Patient continues with intermittent nausea and poor oral intake. However she recognizes the need to progress her care and get to rehab Physical Exam Physical Exam: Constitutional: Alert HEENT: Mucous membranes moist. Lungs: Clear to auscultation, decreased, no wheezes rales or rhonchi CV: S1-S2, regular Abdomen: Soft, nontender, nondistended Extremities: No significant edema Neuro: No focal deficits Psych: Cooperative, depressed affect Results & Data Results & Data Vital Signs (Past 12 Hours) Vital Signs Temp Pulse Resp BP Pulse Ox O2 Del Method 11/13/23 07:11 36.6 C 87 18 135/81 95 Room Air Diagnostic Findings Reviewed imaging, laboratory and diagnostic studies. Pertinent findings as below. Potassium 3.0 (1) Lumbar compression fracture Encounter type: subsequent encounter (2) T2DM (type 2 diabetes mellitus) Diabetes mellitus termite technician insulin use: without termite technician use Diabetes mellitus complication status: without complication Qualified Code(s): E11.9 - Type 2 diabetes mellitus without complications (3) HTN (hypertension) Hypertension type: unspecified Qualified Code(s): I10 - Essential (primary) hypertension (4) HLD (hyperlipidemia) Hyperlipidemia type: unspecified Qualified Code(s): E78.5 - Hyperlipidemia, unspecified (5) Hypothyroidism Hypothyroidism type: unspecified Qualified Code(s): E03.9 - Hypothyroidism, unspecified
[2023-11-13] MEDS: POTASSIUM CHLORIDE PWD 20 MEQ PACK PO ONE (10:20)
[2023-11-13] MEDS: POTASSIUM CHLORIDE PWD 20 MEQ PACK PO STA (10:20)
[2023-11-13] MEDS ORDERED: POTASSIUM CHLORIDE CRTAB 20 MEQ TABCR PO ONE (11:00)
[2023-11-13 12:39] VITALS: BP 119/74; PULSE 78
--- NOTE | 2023-11-15 15:04 | Discharge Summary ---
Date of Service November 15, 2023 Admission HPI Per Admitting Provider This is a 73-year-old female well-known to me the presents to my office with marked decline in status over the past week. She denies any specific trauma fall or event. She has incapacitating back pain when she tries to sit up and move. She is comfortable when lying supine. She denies any numbness and tingling in the legs. Denies any lower extremity weakness. Denies any acute trauma fall or event. Principal Diagnosis Lumbar compression fracture Discharge Data Allergies Allergy/AdvReac Type Severity Reaction Status Date / Time Sulfa (Sulfonamide Allergy Intermediate Rash Verified 09/24/23 16:58 Antibiotics) tramadol Allergy Mild Verified 10/31/23 16:17 baclofen Allergy Verified 10/31/23 16:17 gabapentin AdvReac Severe Nightmare Verified 09/24/23 16:58 Consultations 10/31/23 14:59 Consult Internal Medicine Routine 11/11/23 12:15 Consult Gastroenterology Routine Procedures Performed Operation Date: 11/04/23 11:05 Actual Procedures p L1, L2, S1 Kyphoplasty, Hardware Removal of L2-S1 Right with Reinstrumentation of Hardware of L2-S1, Biopsy of L1, with Stimulan Beads - Timothy Herr DO Ordered Studies 10/31/23 14:59 MR lumbar spine wo con Urgent 11/01/23 09:55 CT lumbar spine wo con Routine 11/04/23 11:05 FL kyphoplasty any level Routine Hospital Course (1) Lumbar compression fracture: Patient was admitted from my office and diagnosed with acute compression fracture. She subsequently underwent revision instrumentation and kyphoplasty. She tolerated the procedure well and over the course of her hospital stay improved her ability to stand and ambulate and was subsequently discharged to rehab. Discharge orders instructions found in chart for further review. Total Time Total Time Spent Total Time Spent (In Minutes): 20 minutes Discharge Plan Discharge Items Patient Disposition: Transfer Long Term Fac Reason For Visit: INCAPASITATING BACK PAIN Discharge Diagnosis: L1 and L2 compression fractures Activity: As commented below Non-emergency contact: Primary Care Provider Call non-emergency contact if: you have any medication questions Follow-up/Referrals: Jadyn Johnson DO [Primary Care Provider] - Diet: Regular Addtl Attending Provider Instructions: ACTIVITY RECOMMENDATIONS: SELF CARE INSTRUCTIONS AFTER THORACIC/LUMBAR FUSIONS 1. You may walk to your tolerance. It is good exercise for your legs and back. Expect some back and intermittent leg aches and pains. 2. You may perform "counter-top" level activities (make a sandwich, praful with a project, etc.). 3. No bending or lifting of more than 10 pounds or back twisting of any nature (roll like a log when turning in bed). 4. You may ride in a car for 20-30 minutes at a time. No driving until after your first visit with your doctor. 5. Frequent changes of position and restricting sitting to 30 minutes at a time will help limit the amount of back spasms and stiffness you may experience. 6. You may discontinue the use of ambulatory aids (cane, crutches, etc.) once your strength and confidence allow. 7. You may loader magazine grinder the shower and let water strike your incision when you arrive home at least once daily. Do not take a tub bath, sit in a hot tub or go into a swimming pool until after your first recheck in the office. SPECIAL CARE INSTRUCTIONS: VERY IMPORTANT TO READ AND REVIEW A. Your surgical incision has been closed with a cosmetic suture under the skin that will dissolve in about 6 weeks. In 14 days, you can use a pair of clean scissors and cut the suture that is left outside of the skin at the ends of your incision. 1. The small skin tapes can be removed 7 days after surgery if they have not fallen off by that point. 2. You may keep the wound open to air as much as possible to promote healing after post-op day number 5 unless told otherwise by your doctor. 3. If you think the wound looks like it is becoming infected (redness or worsening drainage) and/or you are experiencing fever, chill or worsening back pain and muscle spasms, contact the office so that we may evaluate you as soon as possible. B. Complications are uncommon, but please contact us if you have any signs or symptoms of: 1. wound infection (fever higher than 102.5 degrees F, redness, separation of wound, drainage, or increasing pain from the incision) 2. blood clots in legs (pain, swelling, redness and warmth in legs) 3. urinary tract infection (fever higher than 102.5 degrees F, burning upon urination or increased frequency of urination) 4. nerve problems (inability to walk on your toes or heels, numbness, loss of bowel or bladder control) 5. any other symptoms that concern you C. Please call the office at if you have any concerns or questions about your operation or recovery. D. No smoking! Smoking drastically decreases the chance of a solid fusion. E. Do not take any anti-inflammatory medications (Indocin, Advil, Motrin, Aspirin, Naprosyn, etc.) as these may inhibit the chance of a solid fusion. Tylenol is okay to take for pain. MANAGING PAIN AFTER SPINAL SURGERY 1. Narcotic medication is intended for short-term use and will be provided for surgical pain. Surgical pain usually lasts for a period of 4-6 weeks. Narcotic medication includes Percocet, Vicodin, Darvocet, Tylenol #3 or Lortab. 2. Longer-term pain is more appropriately treated with non-narcotic medication such as Tylenol ES. 3. Muscle spasm is not appropriately treated with narcotics. Muscle relaxers such as Soma, Flexeril or Skelaxin can be used along with Tylenol ES. 4. Remember that we all live with some "aches and pains". This is not unusual or uncommon after an injury or as we get older. a. Back pain is expected and may include muscle spasms for 4 to 6 weeks a fter surgery. The pain should gradually improve. If the pain worsens for no apparent reason, please contact the office. b. Intermittent leg pain may also be experienced and should not be concerned about unless it worsens for no apparent reason. If so, please contact the office. 5. We will provide appropriate medication within the normal guidelines of their prescribed use. We will also be very cautious and aware of potential abuse and extended duration of patients' medication needs. a. Pain medications are for your comfort and to assist with sleep and rest so that the tissue can heal. They are not provided in order to return to normal activity and should not be used through the day. To do so or worsening pain at night can result from ongoing tissue damage and development of tolerance to the prescribed medicine. 6. Please allow 2-3 days to process refills. Prescriptions will not be mailed but must be picked up at the office. FOLLOW UP VISIT: Keep your scheduled follow-up appointment. Any questions, please call the office at . 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 Professor [employer] Provider Instructions: Recommend BMP in 7 to 10 days Nutritional supplements Pending Studies at Discharge: No Stand-Alone Forms: My [facility] Skilled Items Patient informed of condition?: Yes DNR: No Discharge Level of Care: Acute rehab Communicable Disease: No Discharge Prognosis: Improving Lines: None Urinary Catheter: No Medications and DC Order Prescriptions: New lorazepam 0.5 mg Tablet 0.5 mg PO Q8H PRN (Reason: anxiety) Qty: 20 0RF acetaminophen [Tylenol Extra Strength] 500 mg Tablet 1,000 mg PO TID 30 Days Qty: 180 0RF potassium chloride 20 mEq packet 40 meq PO DAILY Qty: 3 0RF Continued pioglitazone 15 mg Tablet 15 mg PO QAM colesevelam [WelChol] 625 mg Tablet 1,250 mg PO BIDM docusate sodium 100 mg Capsule 100 mg PO BID oxycodone 5 mg tablet 5 mg PO Q6H PRN (Reason: pain) Qty: 30 0RF levothyroxine 200 mcg tablet 200 mcg PO QAM colchicine [Colcrys] 0.6 mg Tablet 0.6 mg PO BID PRN (Reason: Gout Flare) cholecalciferol (vitamin D3) [Vitamin D3] 50 mcg (2,000 unit) Tablet 50 mcg PO DAILY ondansetron 4 mg tablet,disintegrating 4 mg translingual Q6 PRN (Reason: NAUSEA/VOMITING) Discontinued acetaminophen 325 mg Tablet 325 mg PO Q6 acetaminophen 500 mg Tablet 500 mg PO Q6H tizanidine 4 mg Tablet 4 mg PO Q8H duloxetine 30 mg Capsule,Delayed Release(Dr/Ec) 30 mg PO DAILY Discharge Orders: Discharge Order (Routine); Ordered 11/11/23 Ordered By: Timothy Yeager/Other Patient Handouts: Managing Type 2 Diabetes Admission Data Admit Date/Time: 10/31/23 13:50 Attending Provider: Timothy Herr Admit Provider: Timothy Herr Primary Care Provider: Jadyn Johnson Other Providers: Patsy Garcia; Debby Sanz; Gladys Erickson; Kal Jay; Paul Whitehead I Other Interventions: Discharge Summary Assessment (RN) Last Done: 11/13/23 12:35
== END 2023-11-13 12:53 | DRG 479 ==
LOC: 3E 13:50
DX: E11.9 Type 2 diabetes mellitus without complications; E03.9 Hypothyroidism, unspecified; M25.59 Pain in other specified joint; Z98.890 Other specified postprocedural states; I10 Essential (primary) hypertension; R11.0 Nausea; K59.00 Constipation, unspecified; Z68.33 Body mass index [BMI] 33.0-33.9, adult; T40.2X5A Adverse effect of other opioids, initial encounter; M48.062 Spinal stenosis, lumbar region with neurogenic claudication; E87.6 Hypokalemia; Z88.2 Allergy status to sulfonamides; E78.5 Hyperlipidemia, unspecified; Y92.019 Unspecified place in single-family (private) house as the place of occurrence of the external cause; E83.42 Hypomagnesemia; E66.9 Obesity, unspecified; R32 Unspecified urinary incontinence; Z98.1 Arthrodesis status; F43.21 Adjustment disorder with depressed mood; M80.08XA Age-related osteoporosis with current pathological fracture, vertebra(e), initial encounter for fracture; Z79.890 Hormone replacement therapy

== ENCOUNTER 2023-12-13 12:48 | Inpatient (IN) ==
[2023-12-13 13:42] LABS: Anion Gap 9 (3-11); BUN Creatinine Ratio 15.2 (10-20); Blood Urea Nitrogen 7 mg/dl (6-23); Calcium 9.2 mg/dl (8.6-10.3); Carbon Dioxide 30 mmol/L (21-32); Chloride 98 mmol/L (98-107); Creatinine Clr Calc Pharmacy 117.1 ml/min; Glucose 128 mg/dl (70-99(Fasting)); Potassium 3.1 mmol/L (3.5-5.1); Sodium 137 mmol/L (136-145)
[2023-12-13 13:45] LABS: Basophils # (auto) 0.04 K/uL (0.00-0.20); Basophils % (auto) 0.6 %; Eosinophils % (auto) 1.6 %; Hematocrit (blood only) 41.4 % (37.0-47.0); Hemoglobin 13.9 g/dl (12.0-16.0); Immature Granulocytes # (auto) 0.01 K/uL (0.01-0.20); Immature Granulocytes % (auto) 0.2 %; Lymphocytes % (auto) 44.2 %; Mean Corpuscular Hgb Conc 33.6 g/dL (32.0-36.0); Mean Corpuscular Volume 86.4 fL (80.0-100.0); Mean Platelet Volume 12.1 fL (9.4-12.4); Monocytes # (auto) 0.52 K/uL (0.11-0.59); Monocytes % (auto) 8.2 %; Neutrophils # (auto) 2.86 K/uL (1.40-6.50); Neutrophils % (auto) 45.2 %; Platelet Count 336 K/uL (130-400); RDW Coefficient of Variation 15.9 % (11.5-14.5); RDW Standard Deviation 50.5 fL (36.4-46.3); Red Blood Count 4.79 M/uL (4.20-5.40); White Blood Count 6.33 K/ul (4.8-10.8)
[2023-12-13 13:48] LABS: Troponin I High Sensitivity 5.7 pg/ml (0-14)
[2023-12-13 13:57] LABS: Thyroid Stimulating Hormone 0.028 uIu/ml (0.300-4.500)
--- NOTE | 2023-12-13 14:05 | XRay Report ---
XR chest 1V portable HISTORY: 73 years-old Female weakness acute weakness COMPARISON: 09/24/2023 TECHNIQUE: AP view of the chest FINDINGS: Cardiac silhouette is enlarged. No pneumothorax, pleural effusion, airspace consolidation or pulmonar y edema. Degenerative changes of the shoulders and spine. IMPRESSION: Cardiomegaly without acute process. ACT 112: Negative or not required by law. The above report was generated using voice recognition software. It may contain grammatical, syntax o r spelling errors. Electronically signed by: Boyd Negrete M.D. 12/13/2023 2:02 PM
[2023-12-13] MEDS: PROCHLORPERAZINE 1 ML IV ONE (14:09)
[2023-12-13] MEDS: SODIUM CHLORIDE 0.9% 1,000 ML IV SCH (14:10)
[2023-12-13] MEDS: POTASSIUM CHLORIDE / WTR 10 MEQ/100 ML PLCT IV ONE (14:10)
[2023-12-13 14:20] LABS: INR 1.4 (0.9-1.1); Prothrombin Time 14.4 Seconds (9.0-12.0)
--- NOTE | 2023-12-13 14:25 | Electrocardiogram Report ---
Test Reason : Blood Pressure : */* mmHG Vent. Rate : 85 BPM Atrial Rate : 85 BPM P-R Int : 172 ms QRS Dur : 78 ms QT Int : 374 ms P-R-T Axes : -4 28 -23 degrees QTcB Int : 445 ms Normal sinus rhythm Low voltage QRS Poor R wave progression, consider anterior TN vs. lead placement vs. LVH Nonspecific T wave abnormality Anterior leads Nonspecific T wave abnormality Inferior leads Abnormal ECG When compared with ECG of 22-Sep-2023 16:41, T wave inversion now evident in Inferior leads T wave inversion now evident in Anterolateral leads Confirmed by Grayson Rhoades ([id number]) on 12/13/2023 2:25:05 PM Referred By: REFERRED SELF Confirmed By: Grayson Rhoades
--- NOTE | 2023-12-13 14:33 | CT Scan Report ---
CT head/brain wo con CLINICAL HISTORY: 73 years-old Female with weakness. Acute weakness TECHNIQUE: Multiple axial CT images of the head were obtained without contrast. A dose lowering tech nique was utilized adhering to the principles of ALARA. CT DOSE: 547.75 mGy.cm COMPARISON: None. FINDINGS: No acute intracranial hemorrhage, midline shift, intracranial mass, hydrocephalus, territorial ischem ia or abnormal extra-axial collection. Involutional changes with extensive white matter hypodensities suggestive of chronic microvascular ischemic disease. The calvarium is intact. The paranasal sinuses, mastoid air cells, and middle ear cavities are clear . IMPRESSION: No acute intracranial abnormality ACT 112: Negative or not required by law. The above report was generated using voice recognition software. It may contain grammatical, syntax o r spelling errors. Electronically signed by: Boyd Negrete M.D. 12/13/2023 2:31 PM
[2023-12-13 14:34] LABS: Alanine Aminotransferase 6 U/L (7-52); Albumin Globulin Ratio 0.8 (0.9-2); Albumin Level 3.1 gm/dl (3.4-5.0); Alkaline Phosphatase 120 U/L (34-104); Aspartate Aminotransferase 16 U/L (13-39); Bilirubin,Total 0.5 mg/dl (0.2-1.0); Creatine Kinase < 10 U/L (26-192); Globulin 4.1 gm/dl (2.5-4.0); Magnesium 1.7 mg/dl (1.7-2.4); Total Protein 7.2 gm/dl (6.0-8.3)
[2023-12-13 15:49] LABS: C Reactive Protein 3.18 mg/dl (0-0.5)
--- NOTE | 2023-12-13 16:21 | History & Physical Report ---
Date of Service December 13, 2023 Assessment & Plan (1) Generalized weakness: (2) Failure to thrive in adult: Plan: Patient is 73 year old female with PMH DM II, HTN, HLD, back pain with multiple lumbar spine procedures, ongoing nausea and others listed below presented to ER with c/o progressive generalized weakness, poor oral intake and continued nausea. 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 Past 3 days 2 loose BMs daily since discontinuing narcotics without melena or hematochezia If recurrent diarrhea plan to obtain stool culture and c-diff Continue PPI Antiemetics as needed May need to consider abdominal imaging and/or GI consult (6) Hypokalemia: Plan: K: 3.1 In ER given 1 K-rider Attempted to replace orally however patient unable to take oral potassium. Will give 3 additional K-riders and monitor (7) UTI (urinary tract infection): (8) Urine retention: Plan: Recent history of urinary retention requiring Mahoney catheter Mahoney changed in ER today UA suggestive UTI Urine culture pending Start Rocephin Continue Flomax Was to follow with [facility] urology next week, however has not seen yet (9) Abnormal TSH: (10) Hypothyroidism: Plan: TSH: 0.028, Free T4: 2.7 Likely levothyroxine dose too high in setting of recent limited oral intake Plan to decrease home levothyroxine from 200mcg to 150mcg daily Will need repeat TSH (11) History of back pain: (12) History of compression fracture of spine: (13) History of spinal surgery: Plan: R/O Discitis Hx of multiple lumbosacral spine surgery S/P R SI joint revision, on 09/25/[address] Herr S/P kyphoplasty L1 L2 on 11/04/[address] Herr H/O SI joint fusion in past Elevated ESR and CRP MRI lumbar spine pending to r/o discitis On Rocephin as above for UTI and will continue. Follow MRI results and if suggestive discitis plan to add vancomycin Was on Butrans patch but secondary to cost pt chose to discontinue and use oxycodone. Patient discontinued oxycodone 3 days ago and pain controlled with prn Tylenol Denies any increased back pain and overall feels improvement Tylenol prn pain (14) Oral candidiasis: Plan: Denies sore throat or dysphagia Nystatin swish (15) Abnormal EKG: Plan: EKG sinus rhythm, nonspecific T wave changes in inferior and anterior leads that appear new from EKG 09/22/23 per my interpretation Denies CP or SOB Troponin: 5.7 09/25/23 Echo: EF: 60%, grade I diastolic dysfunction Repeat troponin EKG in am Monitor on telemetry Echo If troponins uptrending or abnormal echo consider cardiology consult (16) T2DM (type 2 diabetes mellitus): Plan: A1c: 6.5 on 11/01/23 Hold home oral agents Novolog sliding scale per protocol with correction coverage for now. If patient starts increasing oral intake will plan on carb coverage also (17) HTN (hypertension): Plan: HCTZ had been discontinued during recent rehab secondary to low BP's In ER BP's stable Monitor BP (18) HLD (hyperlipidemia): Plan: Previously on colesevelam DVT Prophylaxis Heparin SQ Admit med tele DNR/DNI as per discussion with pt Follows with Dr Zhou for routine care Pt was seen and care coordinated with Dr Jackman. See addendum I spent a total of 76 minutes reviewing notes, outpatient records, labs, medication, coordinating, documenting and providing care for this patient excluding time spent in the performance of separately billed services. History of Present Illness Chief Complaint: weakness Primary Care Provider: Jadyn Johnson DO Patient is 73 year old female with PMH DM II, HTN, HLD, back pain with multiple lumbar spine procedures, ongoing nausea and others listed below presented to ER with c/o progressive generalized weakness, poor oral intake and continued nausea. History obtained from patient and inpatient and outpatient chart review. Patient with multiple spine procedures over past several months for intractable back pain, compression fractures by Dr Herr with recent hospital admission 11/01/23-11/13/23 for intractable back pain and s/p kyphoplasty L1, L2 11/04/23. Was discharged to rehab. It is reported during rehab noted to have low BPs so HCTZ was discontinued. She has been having issues with urinary retention, was discharged with Mahoney catheter, has been having some issues with infections, has gone through a couple voiding trials and has not done well, Mahoney has been in place since. Mahoney last changed approximately 2 weeks ago. She thinks took Cipro for 7 days and last dose approximately one week ago as reports it was discontinued as urine culture did not show bacteria. Patient currently on Flomax. Patient reports her back pain is much improved. She has stopped taking oxycodone. Last dose 3 days ago. She is taking Tylenol 2-3 times a day with control of back pain. Denies any acute worsening of back pain and overall feels has improved since her last admission and last spinal procedure. Since stopping the oxycodone the past 3 days has had 2 loose BMs daily. Denies any noted melena or hematuria. Denies abdominal pain. Since being at home patient reports continued nausea and decreased oral intake. Feels might be eating approximately 500 calories a day. Been tried on various antinausea medications outpatient without much relief. She currently is taking olanzapine HS for nausea and feels that has been the most helpful but still with symptoms. Per inpatient chart review she was seen by GI during last admission and was felt nausea was likely multifactorial given prolonged hospitalization, multiple recent surgeries, limited mobility & ongoing narcotic use and was recommended Miralax daily for a good bowel regimen, continue Protonix 40 mg BID and using prn antiemetics. Since her bowels have started moving past 3 days she is not using laxatives or stool softeners but has continued Protonix. She feels has had progressive generalized weakness which has worsened since returning home from rehab which she relates to poor oral intake. has attempted protein shakes however cannot tolerate the chalky milky consistency. was receiving home PT but is having difficulty even sitting up from bed because feeling so weak and she hasn't been able to participate in PT. She has noticed white patches to her tongue past few days but denies any oral pain or pain or difficulty swallowing. Denies fever/chills, diaphoresis, hematemesis, melena, hematochezia, MORALES, dizziness, syncope, vision changes, neck pain, CP, SOB, orthopnea, palpitations, cough, sore throat, choking, otalgia, rhinorrhea, abdominal pain, paresthesias, extremity edema, rashes, hematuria. Allergies Allergy/AdvReac Type Severity Reaction Status Date / Time Sulfa (Sulfonamide Allergy Intermediate Rash Verified 12/13/23 15:44 Antibiotics) tramadol Allergy Mild Verified 12/13/23 15:44 baclofen Allergy Verified 12/13/23 15:44 gabapentin AdvReac Severe Nightmare Verified 12/13/23 15:44 Home Medications Medication Instructions Recorded Confirmed Type pioglitazone 15 mg tablet 15 mg PO QAM 09/11/21 12/13/23 History cholecalciferol (vitamin D3) 50 50 mcg PO DAILY 09/22/23 12/13/23 History mcg (2,000 unit) tablet (Vitamin D3) colchicine 0.6 mg tablet (Colcrys) 0.6 mg PO BID PRN Gout Flare 09/22/23 12/13/23 History levothyroxine 200 mcg tablet 200 mcg PO QAM 09/22/23 12/13/23 History ondansetron 4 mg disintegrating 4 mg translingual Q6 PRN 09/24/23 12/13/23 His tory tablet NAUSEA/VOMITING docusate sodium 100 mg capsule 100 mg PO BID PRN Constipation 10/09/23 12/13/23 History lorazepam 0.5 mg tablet 0.5 mg PO Q8H PRN Nausea 12/13/23 12/13/23 History olanzapine 2.5 mg tablet 2.5 mg PO HS 12/13/23 12/13/23 History pantoprazole 40 mg tablet,delayed 40 mg PO BID 12/13/23 12/13/23 History release tamsulosin 0.4 mg capsule 0.4 mg PO DAILY 12/13/23 12/13/23 History Past Med/Surg History Problem List UTI (urinary tract infection) Abnormal EKG Oral candidiasis History of spinal surgery History of compression fracture of spine History of back pain Abnormal TSH Hypokalemia Diarrhea Nausea Failure to thrive in adult Generalized weakness Chronic SI joint pain Poor appetite Chronic nausea Urine retention Lumbar compression fracture Gout Sacroiliitis Intractable back pain (Acute) Morbid obesity Neuroforaminal stenosis of lumbar spine (Acute) Hypothyroidism HLD (hyperlipidemia) HTN (hypertension) T2DM (type 2 diabetes mellitus) Medical History 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 Muscle spasm severe History of COVID-19 03/2022- mild symptoms Lumbar disc herniation with radiculopathy Surgical History Hx of bilateral cataract extraction History of lumbar spinal fusion 01/21/2023 [facility] L2-L4 decompression/fusion (09/14/21): Grade view 1, Garcia#2, ETT 7.0 at [facility] Nausea and vomiting after administration of anesthetic agent states scopolamine patch worked very well after last procedure Hx of dilation and curettage Hx of arthroscopy of left knee meniscus injury Hx of cholecystectomy Hx of tonsillectomy History of x2 History of total knee replacement Left 2012, Right 2006 Family History Mother Sclerosing cholangitis Father Alcohol use disorder Social History Smoking Status: Never smoker Second Hand Exposure: No; Do You Dip or Chew Tobacco: No; Hx Alcohol Use: No Hx Substance Use: No Preferred Language: Persian Communication Ability: Effective Clinical Trainer Required: No Beliefs That Will Affect Care: None marital status: Current Living Situation: Spouse Current Living Situation Comment: Home with current occupational status: retired Feels Safe at Home: Yes Assistive Devices: Cane and Walker Review of Systems Review of Systems: All systems reviewed & are unremarkable except as noted in HPI & below Physical Exam Physical Exam: General: no acute distress, WDWN Head: normocephalic, atraumatic Eyes: conjunctiva non-injected, anicteric ENT: normal inspection external ears, nose, mucous membranes mildly dry, +white plaque on tongue Neck: supple, trachea midline Lungs: clear, no respiratory distress, no wheezing/rhonchi/rales CV: RRR, no pretibial edema Abd: normal BS, soft, non-tender Back: no discoloration, no erythema noted on surgical incision site, non-tender to palpation Ext: no cyanosis, no calf tenderness Neuro: A&O x 3, +diffuse weakness, otherwise no focal deficits noted, normal affect Skin: warm, dry Results & Data Results & Data Vital Signs (Past 12 Hours) Vital Signs Temp Pulse Pulse Resp BP BP Pulse Ox 12/13/23 15:00 88 20 113/67 95 12/13/23 14:30 89 22 96 12/13/23 14:30 121/72 12/13/23 14:27 90 19 94 12/13/23 14:00 91 H 22 12/13/23 14:00 131/73 12/13/23 13:47 86 18 97 12/13/23 13:01 92 H 20 117/68 97 12/13/23 13:01 96 12/13/23 12:50 36.8 C 90 20 127/75 96 O2 Del Method 12/13/23 15:00 Room Air 12/13/23 14:30 12/13/23 14:30 12/13/23 14:27 12/13/23 14:00 12/13/23 14:00 12/13/23 13:47 Room Air 12/13/23 13:01 Room Air 12/13/23 13:01 Room Air 12/13/23 12:50 Room Air Laboratory Results Short CBC 12/13/23 Range/Units 12:42 WBC 6.33 (4.8-10.8) K/ul Hgb 13.9 (12.0-16.0) g/dl Hct 41.4 (37.0-47.0) % Plt Count 336 (130-400) K/uL BMP 12/13/23 12:42 Sodium 137 Potassium 3.1 L Chloride 98 Carbon Dioxide 30 BUN 7 Creatinine 0.46 L Glucose 128 H Calcium 9.2 Cardiac Enzymes 12/13/23 Range/Units 12:42 Total Creatine Kinase < 10 L (26-192) U/L Liver Function 12/13/23 Range/Units 12:42 Total Bilirubin 0.5 (0.2-1.0) mg/dl AST 16 (13-39) U/L ALT 6 L (7-52) U/L Alkaline Phosphatase 120 H (34-104) U/L Albumin 3.1 L (3.4-5.0) gm/dl Urine 12/13/23 Range/Units 16:14 Urine Color Dark Yellow Urine Appearance Turbid A (Clear) Urine pH 5.5 (4.5-7.5) Ur Specific Fountain 1.036 H (1.000-1.030) Urine Protein 2+ H (Negative) Urine Glucose (UA) Negative (Negative) Diagnostic Findings Chest X-Ray 12/13/23 13:21 XR chest 1V portable HISTORY: 73 years-old Female weakness acute weakness COMPARISON: 09/24/2023 TECHNIQUE: AP view of the chest FINDINGS: Cardiac silhouette is enlarged. No pneumothorax, pleural effusion, airspace consolidation or pulmonary edema. Degenerative changes of the shoulders and spine. IMPRESSION: Cardiomegaly without acute process. ACT 112: Negative or not required by law. The above report was generated using voice recognition software. It may contain grammatical, syntax or spelling errors. Electronically signed by: Boyd Negrete M.D. 12/13/2023 2:[address] 12/13/23 13:43 CT head/brain wo con CLINICAL HISTORY: 73 years-old Female with weakness. Acute weakness TECHNIQUE: Multiple axial CT images of the head were obtained without contrast. A dose lowering technique was utilized adhering to the principles of ALARA. CT DOSE: 547.75 mGy.cm COMPARISON: None. FINDINGS: No acute intracranial hemorrhage, midline shift, intracranial mass, hydrocephalus, territorial ischemia or abnormal extra-axial collection. Involutional changes with extensive white matter hypodensities suggestive of chronic microvascular ischemic disease. The calvarium is intact. The paranasal sinuses, mastoid air cells, and middle ear cavities are clear. IMPRESSION: No acute intracranial abnormality ACT 112: Negative or not required by law. The above report was generated using voice recognition software. It may contain grammatical, syntax or spelling errors. Electronically signed by: Boyd Negrete M.D. 12/13/2023 2:31 PM Supervising Physician Co-Signing Physician Notes 73 yo F w/ PMH of s/p Kyphoplasty L1 & L2 on 11/04/23, Lumbar compression fracture, hypothyroidism, HLD, HTN, T2DM presented to the ED secondary to overall downtrend w/ her health. 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 She denies fever/sore throat/cough/chest pain/painful swallowing/palpitation/Headache/belly pain/sob. She reports progressively getting weaker and occasional dizziness. She reports she has been on and off on mahoney since 3 months, supposed to urology coming Saturday, had been treated for UTI for 7d/completed about a week ago. Labs reviewed, CBC wnl ESR > 130, CRP 3.18 TSH 0.028, fT4 2.70---> decrease levothyroxine dose to 150 mcg daily (home dose 200 mcg QAM), f/u TFT w/ necessary dose adjustments as appropriate Porcal neg K 3.1, BUN and Cr wnl UA s/o UTI, f/u U Cx. Get RPP, bl Cx. CXR and CTH w/ no acute findings. MR L spine: Extensive postoperative/postprocedural findings within the lumbosacral spine. Moderate paraspinal edema at the L1-L2 level, also shown on MRI October 31, 2023. This is nonspecific and may be posttraumatic/post procedural. Diarrhea: for last 2-3 days after pt stopped oxycodone per her. stool pcr if w/ ongoing diarrhea, psyllium fiber ? Failure to thrive: wt loss of about 30 kg since jan 2023. electrical technician consult. MVA w/ minerals daily. encourage po protein intake. thiamine, folic acid. Monitor and replete electrolytes. total of 40 meq KCL today. total of 1 gm Mg today. Oral Mg will increase diarrhea. Ortho vitals. UTI/CAUTI: f/u U Cx. initiate rocephin. Mahoney exchanged in the ED. Urinary retention: Pt on mahoney on and off since 3 months after Sx. Pt supposed to f/u w/ uro on Saturday. They would like uro eval while in here due to transportation issues upon discharge. Oral thrush: nystatis liberian and swallow. follow clinically. pt denies dysphagia. Nausea, vomiting: ongoing, chronic, GI eval as OP vs inpt, c/w nausea meds. abn ekg: f/u echo, trop neg, pt w/ no chest pain, c/w telemetry. On Exam: GENERAL: Alert and oriented x3. NAD, on RA. appears ill/frail/weak/lethargic HEENT: No pallor, no icterus. Pupils equal, round and reactive to light. Oral thrush noted. NECK: No JVD, no neck masses. HEART: S1 and S2 heard. Regular rate and rhythm. No murmur, no gallop. RESPIRATORY SYSTEM: Normal AP diameter. No accessory muscle use. No wheezing, no crackles. ABDOMEN: Soft, bowel sounds present, nontender, no distention. CENTRAL NERVOUS SYSTEM: No facial droop. Speech is clear. Obeys simple commands. Moves extremities. EXTREMITIES: No edema, no erythema seen. I have seen and examined the patient and have discussed the case with the provider above. I agree with the assessment and plan as stated. Time spent: 40 min. (10) Hypothyroidism Hypothyroidism type: unspecified Qualified Code(s): E03.9 - Hypothyroidism, unspecified (16) T2DM (type 2 diabetes mellitus) Diabetes mellitus complication status: without complication Diabetes mellitus longterm insulin use: without longterm use Qualified Code(s): E11.9 - Type 2 diabetes mellitus without complications (17) HTN (hypertension) Hypertension type: unspecified Qualified Code(s): I10 - Essential (primary) hypertension (18) HLD (hyperlipidemia) Hyperlipidemia type: unspecified Qualified Code(s): E78.5 - Hyperlipidemia, unspecified
[2023-12-13 16:51] LABS: Appearance Urine Turbid (Clear); Bacteria Urine Automated 4+ (None Seen); Bilirubin Urine 1+ (Negative); Blood Urine 1+ (Negative); Color Urine Dark Yellow; Glucose Urine UA Negative (Negative); Ketones Urine 1+ (Negative); Leukocyte Esterase Urine 2+ (Negative); Nitrite Urine Positive (Negative); Protein Urine 2+ (Negative); RBC Urine Automated >20 /hpf (0-2); Specific Gravity Urine 1.036 (1.000-1.030); Urobilinogen Urine Negative (Negative); WBC Urine Automated >50 /hpf (0-5); pH Urine 5.5 (4.5-7.5)
--- NOTE | 2023-12-13 16:54 | Emergency Department Note ---
Impression & Plan Generalized weakness, Chronic nausea, Poor appetite, Failure to thrive in adult, Diarrhea, Acute hypokalemia, Oral candidiasis ED Provider Note NAME: KIA MAC AGE: 73 SEX: Female INFORMANT: Patient ED PROVIDER(S): Saad Mcgowan MD CHIEF COMPLAINT: Weakness PLAN: Disposition: Admitted Outpatient prescription management: none Referral: None MEDICAL DECISION MAKING: Patient present because generalized weakness. Had a nonfocal neurologic examination. No saddle anesthesia. Patient was afebrile. Patient does have some mild thrush on examination. Blood work was obtained. Patient was hydrated. She was found to have hypokalemia. No leukocytosis or anemia. Patient had a normal cardiac troponin. Her ECG did show some inferior and lateral T wave inversions which are new from her August ECG. Patient has not had any chest pain. Her primary clinic did contact me and were concerned because of her poor performance with PT and significant decreased p.o. intake with approximately 500 amy a day. Clinic thought the patient may benefit from evaluation for possible TPN. Patient had a negative procalcitonin. Her ESR and CRP were significantly elevated. Given the recent surgery this was a concern. Patient noted that she had improvement of her back pain and weaned off for prescription pain medication. She has no physical findings to suggest cord compression or infectious process. Given the fact that she noted significant diarrhea and nausea the patient had stool studies ordered. She was treated with Compazine as she noted poor results with Reglan and Zofran. MR imaging of the lumbar spine was ordered. Head CT was negative. Chest x-ray was unremarkable. The patient had a negative COVID. Urinalysis pending. I was able to review her prior records in the EMR. MR imaging of the spine did not report any significant issues other than her compression fracture. CT imaging of the lumbar spine raised concerns about possible discitis. I did discuss this with her spine surgeon, Dr. Herr. He felt that this was less likely given her prior hospital course, lack of fever, improvement of symptoms and normal white count. He agreed with MR imaging. Patient will be admitted to the hospital and medically evaluated. [facility] Case was discussed and diagnostics were reviewed. MRI is pending. Patient was evaluated in the ER and admitted for further management. Care/management discussed with: solution manager Level of care consideration(s): After review of the information above and other included data, I feel the patient requires escalation of care to admission. Triage Nursing notes: reviewed and agree them. Vital Signs: reviewed and remarkable for no significant abnormalities Additional History obtained from: none Chronic Medical/Social Conditions affecting care: Chronic nausea Prior/ Outside/ External records reviewed: Discharge summary and orthopedic progress notes reviewed from hospitalization as of October 2023. Differential Diagnosis: Infection, dehydration, metabolic abnormality, hypo/hyperglycemia, electrolyte disturbance, anemia, hypoxia, cardiac sources, intracerebral event, toxicologic, neurologic, as well as other pathologies. Diagnostics, independently interpreted by me: ECG: Twelve-lead ECG reveals a normal sinus rhythm at 85 bpm. Low voltage QRS. Inferolateral T wave inversions which are new from 22 September 2023. Cardiac Monitoring: Cardiac monitoring ordered by me: The patient was placed on continuous cardiac monitoring and observed. It revealed a normal sinus rhythm at 88 beats per minute without ectopy or evidence of dysrhythmia. Medical decision rules: none Imaging studies: Head CT: A noncontrast CT scan of the head was performed and was negative for tumor, fracture, intracranial hemorrhage, or other acute pathology. Chest x-ray. Findings: A chest x-ray was performed and revealed no pneumothorax, effusion, infiltrate, pulmonary edema, free air under the diaphragm, or wide mediastinum. Impression: No acute disease. HPI: 73 year old Female arrives for evaluation of weakness. This started over the last several months and is progressing. Patient has had multiple spine surgeries and notes she has not recovered in between. She also has chronic nausea and notes that her primary and specialist have not been able to ascertain why. She notes some relief with Compazine but notes no effect with Reglan or Zofran. Patient states that her back pain issues have improved and she has weaned herself off her oxycodone. Patient has noted chronic diarrhea as well since her last hospitalization. She is spent time in rehab. Patient's primary care was concerned as the patient's rehab was going poorly and she has had about 500 amy/day intake. Patient was referred to the ER for admission, evaluation and consideration for possible TPN. Patient does have a chronic indwelling Grayson catheter. The patient has found no other relieving factors. Current pain is rated as 2/10. Pt denies LOC, headache, fevers, chills, diaphoresis, visual changes, neck pain, chest pain, breathing difficulties, nausea, vomiting, abdominal pain, new or escalating back pain, melena, hematochezia, urinary symptoms, numbness, saddle anesthesia, lymphadenopathy, rash, or other complaints.. PAST MEDICAL HISTORY: See Below, hypothyroidism, sciatica, lumbar compression fracture, hypertension PAST SURGICAL HISTORY: See Below, kyphoplasty, spinal surgery SOCIAL HISTORY: See Below, HOME MEDICATIONS: See Below ALLERGIES: See Below VITALS: See Below PHYSICAL EXAMINATION: GENERAL: Awake, alert, well-appearing, in no distress HENT: Normocephalic, atraumatic. Oropharynx unremarkable except for thrush. EYES: Normal conjunctiva. Sclera non-icteric. NECK: Inspection normal. Non-tender. Supple. No nuchal rigidity. FROM. No masses. RESPIRATORY: Clear to auscultation. No wheezes. No rales. Normal respiratory effort. CARDIAC: Normal rate. Normal rhythm. No murmurs. No rubs. Extremities warm and well perfused. Pulses equal. No JVD. GI: Soft, non-distended. No tenderness to palpation. No rebound or guarding. No masses. RECTAL: Deferred. MUSCULOSKELETAL: Atraumatic. Chest examination reveals no tenderness. The back is symmetrical on inspection without obvious abnormality. There is no CVA tenderness to palpation. No joint edema. LOWER EXTREMITIES: Calves are equal size bilaterally and non-tender. No edema. No discoloration. NEURO: Normal sensorium. Generally weak. Patient has 4.5 out of 5 strength in the bilateral upper extremities and left lower extremity. Right lower extremity is slightly weaker at 4 out of 5. Patient and confirm that this has been ongoing since the time of her initial surgery. SKIN: No rash or jaundice noted. PROCEDURES: none CRITICAL CARE: none OBSERVATION NOTE: none Past Med/Surg History Problem List (Updated 12/13/23 @ 16:50 by Coby Vazquez PA-C) Abnormal EKG Oral candidiasis History of spinal surgery History of compression fracture of spine History of back pain Abnormal TSH Hypokalemia Diarrhea Nausea Failure to thrive in adult Generalized weakness Chronic SI joint pain Poor appetite Chronic nausea Urine retention Lumbar compression fracture Gout Sacroiliitis Intractable back pain (Acute) Morbid obesity Neuroforaminal stenosis of lumbar spine (Acute) Hypothyroidism HLD (hyperlipidemia) HTN (hypertension) T2DM (type 2 diabetes mellitus) Medical History 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 Muscle spasm severe History of COVID-19 03/2022- mild symptoms Lumbar disc herniation with radiculopathy Surgical History Hx of bilateral cataract extraction History of lumbar spinal fusion 01/21/2023 [facility] L2-L4 decompression/fusion (09/14/21): Grade view 1, Garcia#2, ETT 7.0 at [facility] Nausea and vomiting after administration of anesthetic agent states scopolamine patch worked very well after last procedure Hx of dilation and curettage Hx of arthroscopy of left knee meniscus injury Hx of cholecystectomy Hx of tonsillectomy History of x2 History of total knee replacement Left 2012, Right 2006 Family History Mother Sclerosing cholangitis Father Alcohol use disorder Social History Smoking Status: Never smoker Second Hand Exposure: No; Do You Dip or Chew Tobacco: No; Hx Alcohol Use: No Hx Substance Use: No Preferred Language: Hungarian Communication Ability: Effective Affirmative Action Officer Required: No Beliefs That Will Affect Care: None marital status: Current Living Situation: Spouse Current Living Situation Comment: Home with current occupational status: retired Feels Safe at Home: Yes Assistive Devices: Cane and Walker Allergies Allergies Allergy/AdvReac Type Severity Reaction Status Date / Time Sulfa (Sulfonamide Allergy Intermediate Rash Verified 12/13/23 15:44 Antibiotics) tramadol Allergy Mild Verified 12/13/23 15:44 baclofen Allergy Verified 12/13/23 15:44 gabapentin AdvReac Severe Nightmare Verified 12/13/23 15:44 Home Meds Home Medications Medication Instructions Recorded Confirmed pioglitazone 15 mg tablet 15 mg PO QAM 09/11/21 12/13/23 cholecalciferol (vitamin D3) 50 50 mcg PO DAILY 09/22/23 12/13/23 mcg (2,000 unit) tablet (Vitamin D3) colchicine 0.6 mg tablet (Colcrys) 0.6 mg PO BID PRN Gout Flare 09/22/23 12/13/23 levothyroxine 200 mcg tablet 200 mcg PO QAM 09/22/23 12/13/23 ondansetron 4 mg disintegrating 4 mg translingual Q6 PRN 09/24/23 12/13/23 tablet NAUSEA/VOMITING docusate sodium 100 mg capsule 100 mg PO BID 10/09/23 12/13/23 pantoprazole 40 mg tablet,delayed 40 mg PO BID 12/13/23 12/13/23 release tamsulosin 0.4 mg capsule 0.4 mg PO DAILY 12/13/23 12/13/23 Previous Rx's Medication Instructions Recorded lorazepam 0.5 mg tablet 0.5 mg PO Q8H PRN anxiety #20 tabs 11/11/23 Results & Data (ED) Vital Signs Vital Signs - 24 hr 12/13/23 12:47 12/13/23 12:50 12/13/23 13:01 Temperature 36.8 C Temperature Source Oral Pulse Rate 78 90 Pulse Rate [Apical] Pulse Rate from SpO2 Sensor Pulse Rhythm Respiratory Rate 20 Respiratory Effort / Characteristics Non-Labored Spontaneous Respiratory Depth Normal Respiratory Pattern Regular Blood Pressure 127/75 Blood Pressure [Left Arm] Blood Pressure Mean 92 Blood Pressure Mean [Left Arm] Pulse Oximetry 96 96 Oxygen Delivery Method Room Air Room Air Sepsis Recent Fever Within 48 Hours No Sepsis New/Unexplained Change in Mental Status N/A Sepsis Action Taken by Nursing No Action Required 12/13/23 13:01 12/13/23 13:47 12/13/23 14:00 Temperature Temperature Source Pulse Rate 86 Pulse Rate [Apical] 92 H Pulse Rate from SpO2 Sensor Pulse Rhythm Regular Respiratory Rate 20 18 Respiratory Effort / Characteristics Non-Labored Spontaneous Respiratory Depth Normal Respiratory Pattern Regular Blood Pressure 131/73 Blood Pressure [Left Arm] 117/68 Blood Pressure Mean 98 Blood Pressure Mean [Left Arm] 84 Pulse Oximetry 97 97 Oxygen Delivery Method Room Air Room Air Sepsis Recent Fever Within 48 Hours Sepsis New/Unexplained Change in Mental Status Sepsis Action Taken by Nursing 12/13/23 14:00 12/13/23 14:27 12/13/23 14:30 Temperature Temperature Source Pulse Rate 91 H 90 Pulse Rate [Apical] Pulse Rate from SpO2 Sensor 87 Pulse Rhythm Respiratory Rate 22 19 Respiratory Effort / Characteristics Respiratory Depth Respiratory Pattern Blood Pressure 121/72 Blood Pressure [Left Arm] Blood Pressure Mean 88 Blood Pressure Mean [Left Arm] Pulse Oximetry 94 Oxygen Delivery Method Sepsis Recent Fever Within 48 Hours Sepsis New/Unexplained Change in Mental Status Sepsis Action Taken by Nursing 12/13/23 14:30 12/13/23 15:00 Temperature Temperature Source Pulse Rate 89 Pulse Rate [Apical] 88 Pulse Rate from SpO2 Sensor 87 Pulse Rhythm Respiratory Rate 22 20 Respiratory Effort / Characteristics Non-Labored Spontaneous Respiratory Depth Normal Respiratory Pattern Regular Blood Pressure Blood Pressure [Left Arm] 113/67 Blood Pressure Mean Blood Pressure Mean [Left Arm] 82 Pulse Oximetry 96 95 Oxygen Delivery Method Room Air Sepsis Recent Fever Within 48 Hours Sepsis New/Unexplained Change in Mental Status Sepsis Action Taken by Nursing Laboratory Data 12/13/23 12:42 12/13/23 12:42 Lab Results 12/13/23 12/13/23 Range/Units 12:42 13:40 WBC 6.33 (4.8-10.8) K/ul RBC 4.79 (4.20-5.40) M/uL Hgb 13.9 (12.0-16.0) g/dl Hct 41.4 (37.0-47.0) % MCV 86.4 (80.0-100.0) fL MCH 29.0 (25.0-34.0) pg MCHC 33.6 (32.0-36.0) g/dL RDW Std Deviation 50.5 H (36.4-46.3) fL RDW Coeff of Carine 15.9 H (11.5-14.5) % Plt Count 336 (130-400) K/uL MPV 12.1 (9.4-12.4) fL Immature Gran % (Auto) 0.2 % Neut % (Auto) 45.2 % Lymph % (Auto) 44.2 % Perkins % (Auto) 8.2 % Eos % (Auto) 1.6 % Baso % (Auto) 0.6 % Neut # (Auto) 2.86 (1.40-6.50) K/uL Lymph # (Auto) 2.80 (1.20-3.40) K/uL Perkins # (Auto) 0.52 (0.11-0.59) K/uL Eos # (Auto) 0.10 (0.00-0.50) K/uL Baso # (Auto) 0.04 (0.00-0.20) K/uL Immature Gran # (Auto) 0.01 (0.01-0.20) K/uL ESR > 130 H (0-30) mm/hr PT 14.4 H (9.0-12.0) Seconds INR 1.4 H (0.9-1.1) Sodium 137 (136-145) mmol/L Potassium 3.1 L (3.5-5.1) mmol/L Chloride 98 (98-107) mmol/L Carbon Dioxide 30 (21-32) mmol/L Anion Gap 9 (3-11) BUN 7 (6-23) mg/dl Creatinine 0.46 L (0.6-1.2) mg/dl Est Cr Clr Drug Dosing 117.1 ml/min eGFR 102.25 BUN/Creatinine Ratio 15.2 (10-20) Glucose 128 H (70-99(Fasting)) mg/dl Calcium 9.2 (8.6-10.3) mg/dl Magnesium 1.7 (1.7-2.4) mg/dl Total Bilirubin 0.5 (0.2-1.0) mg/dl AST 16 (13-39) U/L ALT 6 L (7-52) U/L Alkaline Phosphatase 120 H (34-104) U/L Total Creatine Kinase < 10 L (26-192) U/L Troponin I High Sens 5.7 (0-14) pg/ml C-Reactive Protein 3.18 H (0-0.5) mg/dl Total Protein 7.2 (6.0-8.3) gm/dl Albumin 3.1 L (3.4-5.0) gm/dl Globulin 4.1 H (2.5-4.0) gm/dl Albumin/Globulin Ratio 0.8 L (0.9-2) Procalcitonin 0.08 (0-0.5) ng/ml TSH 0.028 L (0.300-4.500) uIu/ml Free T4 2.70 H (0.61-1.60) ng/dl SARS-CoV-2 (PCR) NEGATIVE (Negative) Administered Medications Sodium Chloride (Nss) 1,000 mls @ 125 mls/hr IV .Q8H FERNY Stop: 01/12/24 13:59 Last Admin: 12/13/23 14:10 Dose: 125 mls/hr Documented By: PIERRE Discontinued Medications Prochlorperazine (Compazine) 1 mls @ 1 mls/min IV ONE ONE Stop: 12/13/23 13:46 Last Admin: 12/13/23 14:09 Dose: 1 mls/min Documented By: PIERRE Potassium Chloride (K Fermin / Wtr) 10 meq in 100 mls @ 100 mls/hr IV ONE ONE Stop: 12/13/23 14:53 Last Infusion: 12/13/23 15:28 Dose: Infused Documented By: Admin: 12/13/23 14:10 Dose: 100 mls/hr Documented By: PIERRE Imaging Data Radiologist's Impression: Chest X-Ray 12/13/23 13:21 XR chest 1V portable HISTORY: 73 years-old Female weakness acute weakness COMPARISON: 09/24/2023 TECHNIQUE: AP view of the chest FINDINGS: Cardiac silhouette is enlarged. No pneumothorax, pleural effusion, airspace consolidation or pulmonary edema. Degenerative changes of the shoulders and spine. IMPRESSION: Cardiomegaly without acute process. ACT 112: Negative or not required by law. The above report was generated using voice recognition software. It may contain grammatical, syntax or spelling errors. Electronically signed by: Boyd Negrete M.D. 12/13/2023 2:[address] 12/13/23 13:43 CT head/brain wo con CLINICAL HISTORY: 73 years-old Female with weakness. Acute weakness TECHNIQUE: Multiple axial CT images of the head were obtained without contrast. A dose lowering technique was utilized adhering to the principles of ALARA. CT DOSE: 547.75 mGy.cm COMPARISON: None. FINDINGS: No acute intracranial hemorrhage, midline shift, intracranial mass, hydrocephalus, territorial ischemia or abnormal extra-axial collection. Involutional changes with extensive white matter hypodensities suggestive of chronic microvascular ischemic disease. The calvarium is intact. The paranasal sinuses, mastoid air cells, and middle ear cavities are clear. IMPRESSION: No acute intracranial abnormality ACT 112: Negative or not required by law. The above report was generated using voice recognition software. It may contain grammatical, syntax or spelling errors. Electronically signed by: Boyd Negrete M.D. 12/13/2023 2:31 PM Discharge Plan Visit Data Chief Complaint: Weakness Stated Complaint: Weakness ED Provider: Saad Mcgowan Discharge Problem: Generalized weakness, Chronic nausea, Poor appetite, Failure to thrive in adult, Diarrhea, Acute hypokalemia, Oral candidiasis Forms Stand Alone Forms: My [facility] Prescriptions Prescriptions: No Action pioglitazone 15 mg Tablet 15 mg PO QAM docusate sodium 100 mg Capsule 100 mg PO BID lorazepam 0.5 mg Tablet 0.5 mg PO Q8H PRN (Reason: anxiety) Qty: 20 0RF tamsulosin 0.4 mg capsule 0.4 mg PO DAILY pantoprazole 40 mg tablet,delayed release (DR/EC) 40 mg PO BID levothyroxine 200 mcg tablet 200 mcg PO QAM colchicine [Colcrys] 0.6 mg Tablet 0.6 mg PO BID PRN (Reason: Gout Flare) cholecalciferol (vitamin D3) [Vitamin D3] 50 mcg (2,000 unit) Tablet 50 mcg PO DAILY ondansetron 4 mg tablet,disintegrating 4 mg translingual Q6 PRN (Reason: NAUSEA/VOMITING) Referrals Referrals: Jadyn Johnson DO [Primary Care Provider] -
[2023-12-13] MEDS: HYDROmorphone INJ 0.5 MG/0.5 ML SYR IV STA (17:32)
[2023-12-13] MEDS: POTASSIUM CHLORIDE CRTAB 20 MEQ TABCR PO STA (18:16)
--- NOTE | 2023-12-13 18:22 | Magnetic Resonance Report ---
MRI OF THE LUMBAR SPINE WITH AND WITHOUT CONTRAST CLINICAL HISTORY: Low back pain. Weakness. Evaluate for discitis. COMPARISON STUDY: Lumbar spine fluoroscopic images February 12, 2023. Lumbar spine MRI October 30. Lumbar spine CT November 01, 2023. TECHNIQUE: Utilizing a 1.5 Emilee magnet and dedicated coil, multiplanar, multiecho imaging of the [facility] spine was performed before and after uneventful IV administration of 7.5 mL of Gadavist. FINDINGS: This exam is mildly compromised by motion artifact and susceptibility artifact from the surgical hard mcgovern. For purposes of numbering on this exam, the L5-S1 disc space is assigned to axial image 46 of 5 1. Slight anterolisthesis of L5 on S1 is unchanged. L1 kyphoplasty is noted. There may also be a smal l amount of cement within the superior aspect of the L2 vertebral body. Cement slightly extends into the disc space. No intracanalicular mass or fluid collection is present. There are postoperative find ings consistent with posterior decompression and fusion from L2 through S1. There are are disc spacer s at the L2-L3, L3-L4, L4-L5 and L5-S1 levels. The conus terminates at the L1-L2 level. Moderate para spinal edema at the L1-L2 level again noted. This was shown on previous MRI. There is no significant increased T2 signal within the disc spaces. L1-2: There is moderate central canal stenosis due to retropulsion, facet arthrosis and ligamentous h ypertrophy. This is unchanged. There is moderate bilateral neural foraminal stenosis, suboptimally as sessed on this exam. L2-3: No central canal stenosis is present. Evaluation of the neural foramen is significantly comprom ised but appears unchanged without severe stenosis. L3-4: There is no central canal stenosis status post decompression. Neural foramen are patent. L4-5: There is no significant central canal stenosis. Neural foramen are patent. L5-S1: Central canal is patent. Neural foramen are suboptimally assessed due to artifact. There is mi ld to moderate bilateral neural foraminal stenosis which is similar to previous MRI. IMPRESSION: 1. Extensive postoperative/postprocedural findings within the lumbosacral spine, as described above. Moderate paraspinal edema at the L1-L2 level, also shown on MRI October 31, 2023. This is nonspecifi c and may be posttraumatic/post procedural. However, an infectious etiology cannot be excluded and co rrelation with clinical evidence for an infectious process is recommended. If indicated, short-term f ollow-up MRI of the lumbar spine could be obtained. 2. Exam compromised by motion artifact and susceptibility artifact from the surgical hardware. 3. No intracanalicular mass or fluid collection. No paraspinal fluid collections. 4. No increased T2 signal within the disc spaces to definitively indicate discitis. 5. Multilevel degenerative changes within the lumbar spine, as above. ACT 112: Negative or not required by law. Electronically signed by: Davin Hudson M.D. 12/13/2023 6:20 PM
[2023-12-13] MEDS: cefTRIAXone SODIUM 2,000 MG/50 ML BAG IV STA (18:23)
[2023-12-13] MEDS: PROCHLORPERAZINE 5 MG in SYRINGE 4 ML IV ONE (18:51)
[2023-12-13] MEDS ORDERED: GLUCOSE 10 TAB/TUBE PO PRN (19:37)
[2023-12-13] MEDS ORDERED: CARBOHYDRATES FOR HYPOGLYCEMIA PO PRN (19:37)
[2023-12-13] MEDS ORDERED: GLUCAGON FOR INJ 1 MG VIAL SQ PRN (19:37)
[2023-12-13] MEDS ORDERED: DEXTROSE 50% 50 ML SYRINGE IV PRN (19:37)
[2023-12-13] MEDS ORDERED: GLUCOSE 40% GEL 15 GM TUBE PO PRN (19:37)
[2023-12-13] MEDS: PROMETHAZINE 6.25 MG/50.25 ML BAG IV PRN (20:05)
[2023-12-13] MEDS: INSULIN ASPART PER UNIT CHARGE SC SCH (20:06)
[2023-12-13] MEDS: HEPARIN SOD 5,000 UNIT/0.5 ML VIAL SQ SCH (20:14)
[2023-12-13] MEDS: POTASSIUM CHLORIDE / WTR 10 MEQ/100 ML PLCT IV SCH (20:15)
[2023-12-13] MEDS: NYSTATIN SUSP 500,000 U/5 ML UDC PO SCH (21:29)
[2023-12-13] MEDS: PANTOprazole 40 MG TAB PO SCH (21:29)
[2023-12-13] MEDS: OLANZAPINE 2.5 MG TAB PO SCH (21:29)
--- OUTSIDE RECORDS SUMMARY | 2023-12-13 23:51 | External Medical Summary | Summary of Care ---
Author Name Unknown Organization [facility] Address [address] [place] [address] Phone [phone] Care Team Providers Care Business Technology Architect Name Role Phone Jadyn Johnson DO Primary Care Provider +1- [phone] Reason for Referral * Evaluate & Treat - Unlimited Visits (Within 24 hrs (call dept; emergent)) - Authorized Specialty Diagnoses / Procedures Referred By Contac t Referred To Contact HOME CARE / Home Care Diagnoses Need for case management follow-up Status post lumbar spinal fusion Jadyn Johnson DO [address] [place] [address] Referral ID Status Reason Start Date Expiration Date Visits Requested Visits Authorized [id number] Authorized Specialty Services Required 4 [phone] Question Answer Referral Priority Within 24 hrs (call dept; emergent) Where should this appointment be scheduled? Yoni Guevara Documentation of Qrjc-gf-Lqtl Encounter Addendum Patient Name: Carlyn Tafoya I certify that this patient is under my care and that I, or a nurse practitioner or physician's assistant store manager trainee working with me, had a dxad-or-pzoz encounter that meets the physician ipxf-st-qxsp encounter requirements with this patient on: 11/29/23 The encounter with the patient was in whole, or in part, for the following medical condition, which is the primary reason for home health care (List medical condition): Nutritional assessment I certify that, based on my findings, the following services are medically necessary home health services: Patient is only able to eat 500 amy max daily To provide the following care/treatments: (All hospitalists not following the patient after discharge should complete this section): Nutritional assessment Primary Care Physician to follow home care plan of care after discharge: Dr Johnson My clinical findings support the need for the above services because: patient continues to lose weight, unable to tolerate oral intake. Further, I certify that my clinical findings support that this patient is homebound (i.e. Absences from home require considerable and taxing effort and are for medical reasons or temple services or infrequently or of short duration when for other reason) because: Patient is unable to walk. Physician Signature: Date of Signature: Physician Printed Name: Dr Jadyn Johnson Reason for Visit * Reason Onset Date Comments Medication Refill 12/10/2023 Encounter Details Date Type Department Care Team (Late st Contact Info) Description 12/10/[address] [facility] [place] [address] [place] [address] Elizabeth Graham, [place] [address] [place] [address] Need for case management follow-up*; Status post lumbar spinal fusion Allergies Active Allergy Reactions Criticality Noted Date Comments Gabapentin 05/16/2023 hallucinations Sulfa Antibiotics Rash Low 08/07/2012 documented as of this encounter (statuses as of 12/10/2023) Medications Medication Sig Dispensed Refills Start Date End Date Status Amoxicillin 500 MG Oral Capsule (Amoxil) Take 1 Capsule by mouth once as needed for Other (dental work). As directed prior to dental work.- Take 4 tablets prior to procedure 4 Capsule 1 02/21/2021 Active Acetaminophen 500 MG Oral Tablet (Tylenol [...] Ibuprofen 200 MG Oral Tablet (Advil) Take 3 Tablets by mouth in the morning and 3 Tablets before bedtime. Active Pioglitazone HCl 15 MG Oral Tablet (Actos)Indications:T ype 2 diabetes mellitus without complication, without long-term current use of insulin (HCC) Take 1 Tablet by mouth in the morning. 90 Tablet 3 05/16/2023 Active oxyCODONE HCl 5 MG Oral Capsule (Oxy IR) Take 1 Capsule by mouth every 6 hours as needed for Pain, Severe, Pain, Moderate or Pain, Mild. Active OLANZapine 2.5 MG Oral Tablet (ZyPREXA) Take 1 Tablet by mouth at bedtime. FOR NAUSEA Active Magnesium Gluconate 500 MG Oral Tablet Take 500 mg by mouth in the morning. Active Tamsulosin HCl 0.4 MG Oral Capsule (Flomax) Take 1 Capsule by mouth in the morning. Active Vitamin D3 25 MCG Oral Tablet Take 2 Tablets by mouth in the morning. Active Colchicine 0.6 MG Oral Capsule Take by mouth. As needed for gout Active Docusate Sodium 100 MG Oral Capsule (Colace) Take 1 Capsule by mouth in the morning and 1 Capsule before bedtime. Active Ondansetron HCl 4 MG Oral Tablet Take 1 Tablet by mouth every 8 hours as needed for Nausea. Active Prochlorperazine Maleate 5 MG Oral Tablet (Compazine) Take 1 Tablet by mouth every 8 hours as needed for Nausea. Active LORazepam 0.5 MG Oral Tablet (Ativan) Take 1 Tablet by mouth every 8 hours as needed for Other (nausea). Active tiZANidine HCl 2 MG Oral Capsule Take 1 Capsule by mouth at bedtime. 30 Capsule 5 11/29/2023 Active Polyethylene Glycol 3350 17 GM Oral Packet (MiraLax) Take 1 Packet by mouth in the morning. Active Buprenorphine 7.5 MCG/HR Transdermal Patch Weekly (Butrans)Indications :Compression fracture of L2 vertebra with routine healing, subsequent encounter,Compressio n fracture of L1 vertebra with routine healing, subsequent encounter Place 1 Patch topically on the skin once a week. 4 Patch 11/29/2023 Active Pantoprazole Sodium 40 MG Oral Tablet Delayed Release (Protonix)Indication s:Need for case management follow-up,Status post lumbar spinal fusion Take 1 Tablet by mouth in the morning and 1 Tablet before bedtime. 180 Tablet 3 12/10/2023 Active Pantoprazole Sodium 40 MG Oral Tablet Delayed Release (Protonix) Take 1 Tablet by mouth in the morning and 1 Tablet before bedtime. 4 Discontinue d(Refill) documented as of this encounter (statuses as of 12/10/2023) Active Problems Problem Noted Date Diagnosed Date [...] as of this encounter (statuses as of 12/10/2023) Resolved Problems Problem Noted Date Diagnosed Date [...] as of this encounter (statuses as of 12/10/2023) Immunizations Name Administration Dates Next Due COVID-19 mRNA, LNP-s, No Pre serve, 2-Dose Series (Moderna) 12/16/2020,05/28/2020,04/30/2020 COVID-19, MRNA-LNP, 23-24, P F, 30 MCG/0.3 mL, 12 YRS AND ABOVE, IM (PFIZER-Comirnaty) 11/07/2021 COVID-19, MRNA-LNP, 23-24, P F, 50 MCG/0.5 mL, 12 YRS AND ABOVE, IM (MODERNA-Spikevax) 11/17/2022 COVID-19, MRNA-LNP, 24-25, P F, 50 MCG/0.5ML, IM, 12 YRS & ABOVE (Moderna - Spikevax) 11/07/2021 COVID-19, mRNA, LNP-s, PF, B ooster, 100mcg/0.5mg (Moderna) 05/29/2021 Covid-19, Mrna, Lnp-s, Pf, B ivalent, 30 Mcg, IM, 12 yrs and above (Pfizer) 01/03/2022 DTaP Dipth/Tet/Acell Pertussis (Infanrix), Peds 01/30/2022 Pneumococcal Conjugate Vacc, 13 Valent (Prevnar) 11/24/2017,10/05/2017 Pneumococcal Conjugate Vacci ne, 7 Valent 11/24/2018 Pneumococcal Polysaccharide PPV23 (Pneumovax) 12/23/2018 Season Influenza, Quad, PF, Adjuvanted, 65+ Yrs, IM (FLUAD) 12/03/2022,11/30/2021,11/25/2020,11/16 Seasonal Influenza Virus Vac cine, Unspecified Formulation 11/30/2021,11/27/2019,11/17/2019,11/25 Seasonal Influenza, MDCK, Tr ivalent, PF, (Flucelvax) 12/03/2022,11/30/2021,11/25/2020,11/26,11/17/2019,11/25/2018 Seasonal Influenza, Quadrivalent, ID 02/2020,11/27/2019,11/17/2019,11/25 Seasonal Influenza, Trivalen t, Adjuvanted, 65+ YRS, PF, (Fluad) 11/25/2020,11/27/2019,11/25/2018 TD - Tetanus/Diptheria (ADULT) 02/08/2022 TDAP (age 10 and older)(Boostrix) 01/30/2022 TDAP, Age 7 and older, IM (Adacel) [...] encounter Miscellaneous Notes * Telephone Encounter - Elizabeth Graham RN - 12/10/2023 4:09 PM EDT Esecure email to [facility] with new referral/nutrition assessment to be completed. * Telephone Encounter - Elizabeth Graham RN - 12/10/2023 9:[address] Johnson- patients protonix was increased to BID in the hospital, pended new script. She also continues to lose weight, she does not know how much, as she cannot stand. She states she is only able to take in max 500 calories a day. Discussed liquacel, other options with protein. She said her nausea is starting to worsen. 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 documented in this encounter Plan of Treatment Upcoming Encounters Date Type Department Care Team (Latest Contact Info) Description 12/16/2023 2:45 PM EDT Office Visit Urology, [facility] [address] [facility] [place] [address] Tc Garcia MD [address] [place] [address] 12/25/2023 1:45 PM EDT Hospital Encounter OR [facility], Operating Room [facility] [address] [place] [phone] Ozzy Griggs, DO [address] [place] [address] 12/25/2023 1:45 PM EDT - 12/25/2023 2:10 PM EDT Surgery OR [facility], Operating Room [facility] [address] [place] [phone] Ozzy Griggs, DO [address] [place] [phone] INJECTION SACROILIAC JOINT 01/06/2024 4:20 PM EST Office Visit [facility] [place] [address] [place] [address] Jadyn Johnson, [address] [place] [address] Scheduled Procedures Name Priority Associated Diagnoses Date/Ti me INJECTION SACROILIAC JOINT Inflammation of sacroiliac joint (HCC) 12/25/2023 1:45 PM EDT Scheduled Referrals Name Type Priority Associated Diagnoses Orde r Schedule HOME HEALTH REFERRAL OP Referral Within 24 hrs (call dept; emergent) Need for case management follow-up Status post lumbar spinal fusion Ordered: 12/10/2023 Health Maintenance Due Date Last Done Comments Hepatitis C Screening 1970 Cologuard 1997 Sigmoidoscopy 1997 Adult Wellness Visit 2018 Fecal Occult Blood Test 07/18/2019 07/18/19 19, 08/20/2013, 08/07/2012 Diabetic Foot Exam 07/07/2023 07/06/2022, 0 08/26/2020, 08/18/2019 COVID-19 Vaccine ( season) 2023 11/17/2022, 01/03/2022, 11/07/2021, Additional history exists Influenza Vaccine (FLU shot) (#1) 2023 12/03/2022, 12/03/2022, 11/30/2021, Additional history exists Mammogram 11/28/2023 11/27/2022, 04/2022, 11/12/2022, Additional history exists HbA1c 12/13/2023 06/13/2023, 110 07/2022, 06/29/2022, Additional history exists Depression Screening [...] 04/03/2019 Colorectal Cancer Screening 04/03/2029 DTap/Tdap Vaccines (6 - Td or Tdap) 02/09/2032 02/08/2022, 01/30/2022, 01/30/2022, Additional history exists Pneumococcal Vaccine: 65+ Years [...] as of this encounter Visit Diagnoses Diagnosis Need for case management follow-up- Primary Status post lumbar spinal fusion Arthrodesis status Inflammation of sacroiliac joint (HCC) Sacroiliitis, not elsewhere classified documented in this encounter Care Teams Business Technology Architect Relationship Specialty Start Date End Date Jadyn Johnson DO [address] [facility] [place] [address] PCP - General Family Medicine 02/10/19 documented as of this encounter
--- OUTSIDE RECORDS SUMMARY | 2023-12-13 23:51 | External Medical Summary | Summary of Care ---
Author Name Unknown Organization [facility] Address [address] [place] [address] Phone [phone] Care Team Providers Care Picker Feeder Name Role Phone Jadyn Johnson DO Primary Care Provider +1- [phone] Reason for Referral * Evaluate & Treat - Unlimited Visits (Within 24 hrs (call dept; emergent)) - Authorized Specialty Diagnoses / Procedures Referred By Contac t Referred To Contact HOME CARE / Home Care Diagnoses Need for case management follow-up Status post lumbar spinal fusion Jadyn Johnson DO [address] [place] [address] Referral ID Status Reason Start Date Expiration Date Visits Requested Visits Authorized [id number] Authorized Specialty Services Required 4 [phone] Question Answer Referral Priority Within 24 hrs (call dept; emergent) Where should this appointment be scheduled? Yoni Guevara Documentation of Rrio-mw-Wqtl Encounter Addendum Patient Name: Carlyn Tafoya I certify that this patient is under my care and that I, or a nurse practitioner or physician's anesthetic assistant working with me, had a tbcz-ne-bqhl encounter that meets the physician dzvt-uu-aonl encounter requirements with this patient on: 11/29/23 [...] effort and are for medical reasons or presybeterian services or infrequently or of short duration when for other reason) because: Patient is unable to walk. Physician Signature: Date of Signature: Physician Printed Name: Dr Jadyn Johnson Reason for Visit * Reason Onset Date Comments Medication Refill 12/10/2023 Encounter Details Date Type Department Care Team (Late st Contact Info) Description 12/10/2023 Refill Family Practice [facility] [place] [address] [place] [address] Elizabeth Graham, [place] [address] [place] [address] Need for case management follow-up*; [...] to worsen. 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 documented in this encounter Plan of Treatment Upcoming Encounters Date Type Department Care Team (Latest Contact Info) Description 12/16/2023 2:45 PM EDT Office Visit Urology, [facility] [address] [place] [address] Tc Garcia MD [address] [place] [address] 12/25/2023 1:45 PM EDT Hospital Encounter OR [facility], Operating Room [facility] [address] [place] [phone] Ozzy Griggs, [address] [place] [phone] 12/25/2023 1:45 PM EDT - 12/25/2023 2:10 PM EDT Surgery OR [facility], Operating Room [facility] [address] [place] [address] Ozzy Griggs, DO [address] [place] [phone] INJECTION SACROILIAC JOINT 01/06/2024 4:20 PM EST Office Visit [facility] Practice [place] [address] [place] [address] Jadyn Johnson, DO [address] [place] [address] Scheduled Procedures Name Priority Associated Diagnoses Date/Ti [...] 11/30/2021, Additional history exists Mammogram 11/28/2023 11/27/2022, 10/0 04/2022, 11/12/2022, Additional history exists HbA1c 12/13/2023 06/13/2023, 110 07/2022, 06/29/2022, Additional history exists Depression Screening 02/20/2024 02/19/2023 TSH 06/09/2024 06/10/2023, 03/29, 12/31/2022, Additional history exists Albumin/Creatinine Ratio 06/12/2024 024, 02/26/2022, 02/22/2021, Additional history exists Diabetic Eye Exam 08/04/2024 08/05/2023, , 03/02/2022, Additional history exists GFR 10/29/2024 10/30/2023, 09/26, 10/16/2023, Additional history exists DXA Scan 09/15/2026 09/16/2019, 09/16/2019 Lipid Panel 06/12/2028 06/13/2023, 07/2022, 06/29/2022, Additional history exists Colonoscopy 04/03/2029 [...] classified documented in this encounter Care Teams Picker Feeder Relationship Specialty Start Date End Date Jadyn Johnson DO [address] [place] [address] PCP - General Family Medicine 02/10/19 documented as of this encounter
--- OUTSIDE RECORDS SUMMARY | 2023-12-13 23:51 | External Medical Summary | Summary of Care ---
Author Name Unknown Organization [facility] Address [address] [place] [address] Phone [phone] Care Team Providers Care Specialist Physicians Name Role Phone Jadyn Johnson DO Primary Care Provider +1- [phone] Reason for Referral * Evaluate & Treat - Unlimited Visits (Within 24 hrs (call dept; emergent)) - Authorized Specialty Diagnoses / Procedures Referred By Contac t Referred To Contact HOME CARE / Home Care Diagnoses Need for case management follow-up Status post lumbar spinal fusion Jadyn Johnson DO [address] [place] [address] Referral ID Status Reason Start Date Expiration Date Visits Requested Visits Authorized [id number] Authorized Specialty Services Required 4 [phone] Question Answer Referral Priority Within 24 hrs (call dept; emergent) Where should this appointment be scheduled? Yoni Guevara Documentation of Mmqc-gp-Vmiv Encounter Addendum Patient Name: Carlyn Tafoya I certify that this patient is under my care and that I, or a nurse practitioner or physician's botany laboratory assistant working with me, had a hjwh-rg-amlh encounter that meets the physician eana-vg-kecw encounter requirements with this patient on: 11/29/23 [...] effort and are for medical reasons or lutheran services or infrequently or of short duration when for other reason) because: Patient is unable to walk. Physician Signature: Date of Signature: Physician Printed Name: Dr Jadyn Johnson Reason for Visit * Reason Onset Date Comments Medication Refill 12/10/2023 Encounter Details Date Type Department Care Team (Late st Contact Info) Description 12/10/2023 Refill Family Practice [facility] [address] [place] [address] Elizabeth Graham, [place] [address] [place] [address] Need for case management follow-up*; [...] to worsen. 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 documented in this encounter Plan of Treatment Upcoming Encounters Date Type Department Care Team (Latest Contact Info) Description 12/16/2023 2:45 PM EDT Office Visit Urology, [facility] [address] [place] [address] Tc Garcia MD [address] [place] [address] 12/25/2023 1:45 PM EDT Hospital Encounter OR [facility], Operating Room [facility] [address] [place] [address] Ozzy Griggs, [address] [place] [phone] 12/25/2023 1:45 PM EDT - 12/25/2023 2:10 PM EDT Surgery OR [facility], Operating Room [facility] [address] [place] [address] Ozzy Griggs, DO [address] [place] [phone] INJECTION SACROILIAC JOINT 01/06/2024 4:20 PM EST Office Visit Family Practice [place] [address] [place] [address] Jadyn Johnson, DO [address] [place] [address] Scheduled Procedures Name Priority Associated Diagnoses Date/Ti [...] classified documented in this encounter Care Teams Specialist Physicians Relationship Specialty Start Date End Date Jadyn Johnson DO [address] [place] [address] PCP - General Family Medicine 02/10/19 documented as of this encounter
--- OUTSIDE RECORDS SUMMARY | 2023-12-13 23:51 | External Medical Summary | Summary of Care ---
Author Name Unknown Organization [facility] Address [address] [facility] [place] [address] Phone [phone] Care Team Providers Care Rn Field Case Manager Name Role Phone Jadyn Johnson DO Primary Care Provider +1- [phone] Reason for Visit * Reason Onset Date Comments Test Results 12/05/2023 Encounter Details Date Type Department Care Team (Late st Contact Info) Description 12/05/[address] [facility] [place] [place] [address] [facility] [place] [place] [address] Jadyn Johnson DO [address] [place] [address] Test Results Allergies Active Allergy Reactions Criticality Noted Date Comments Gabapentin 05/16/2023 hallucinations Sulfa Antibiotics Rash Low 08/07/2012 documented as of this encounter (statuses as of 12/05/2023) Medications Medication Sig Dispensed Refills Start Date [...] Active Levothyroxine Sodium 200 MCG Oral Tablet (Synthroid)Indication s:Acquired hypothyroidism Take [...] morning and 1 Capsule before bedtime. Active Pantoprazole Sodium 40 MG Oral Tablet Delayed Release (Protonix) Take 1 Tablet by mouth in the morning and 1 Tablet before bedtime. Active Ondansetron HCl 4 MG [...] Packet by mouth in the morning. Active Ciprofloxacin HCl 250 MG Oral Tablet (Cipro)Indications:Ur inary retention,Grayson catheter in place Take 1 Tablet by mouth in the morning and 1 Tablet before bedtime. Do all this for 10 days. 20 Tablet 11/29/2023 12/09/2023 Active Buprenorphine 7.5 MCG/HR Transdermal Patch Weekly (Butrans)Indications: Compression fracture of L2 vertebra with routine healing, subsequent encounter,Compression fracture of L1 vertebra with routine healing, subsequent encounter Place 1 Patch topically on the skin once a week. 4 Patch 11/29/2023 Active documented as of this encounter (statuses as of 12/05/2023) Active Problems Problem Noted Date Diagnosed Date [...] as of this encounter (statuses as of 12/05/2023) Resolved Problems Problem Noted Date Diagnosed Date [...] as of this encounter (statuses as of 12/05/2023) Immunizations Name Administration Dates Next Due COVID-19 [...] Telephone Encounter - Jadyn Johnson DO - 12/05/2023 3:42 PM EDT Urine test showed a small amount of yeast in urine This is very common finding when a catheter is present. This is usually not a cause of symptoms Please see if pt is still having UTI symptoms documented in this encounter Plan of Treatment Upcoming Encounters Date Type Department Care Team (Latest Contact Info) Description 12/16/2023 2:45 PM EDT Office Visit Urology, [facility] [address] [place] [address] Tc Garcia MD [address] [place] [address] 12/25/2023 1:45 PM EDT Hospital Encounter OR [facility], Operating Room [facility] [address] [place] [phone] Ozzy Griggs DO [address] [place] [phone] 12/25/2023 1:45 PM EDT - 12/25/2023 2:10 PM EDT Surgery OR [facility], Operating Room [facility] [address] [place] [phone] Ozzy Griggs DO [address] [place] [phone] INJECTION SACROILIAC JOINT 01/06/2024 4:20 PM EST [facility] [place] [address] [place] [address] Jadyn Johnson DO [address] [place] [address] Scheduled Procedures Name Priority Associated Diagnoses Date/Ti [...] 11/12/2022, Additional history exists HbA1c 12/13/2023 06/13/2023, 1107/2022, 06/29/2022, Additional history exists Depression Screening 02/20/2024 [...] filedocumented as of this encounter Care Teams Rn Field Case Manager Relationship Specialty Start Date End Date Jadyn Johnson DO [address] [facility] [place] [place] [address] PCP - General Family Medicine 02/10/19 documented as of this encounter
--- OUTSIDE RECORDS SUMMARY | 2023-12-13 23:51 | External Medical Summary | Summary of Care ---
Author Name Unknown Organization [facility] Address [address] [facility] [place] [address] Phone [phone] Care Team Providers Care Livestock Auctioneer Name Role Phone Jadyn Johnson DO Primary Care Provider +1- [phone] Reason for Visit * Reason Onset Date Comments Fax 12/04/2023 Home Health Refe rral Encounter Details Date Type Department Care Team (Late st Contact Info) Description 12/04/2023 [facility] [address] [facility] [place] [address] Jadyn Johnson DO [address] [place] [address] Fax (Home Health Referral) Allergies Active Allergy Reactions Criticality Noted Date [...] MCG/0.3 mL, 12 YRS AND ABOVE, IM ([employer]-Comirnaty) 11/07/2021 COVID-19, MRNA-LNP, 23-24, P F, 50 [...] Miscellaneous Notes * Telephone Encounter - Carlyn Sanchez OSA - 12/04/2023 4:05 PM EDT Referral/info-refaxed to [facility] Home Nursing. * Telephone Encounter - Jazmine Baez LPN - 12/04/2023 3:52 PM EDT Home Health referral placed on 12/02/2023 * Telephone Encounter - Luke Lauren OSA - 12/04/2023 3:36 PM EDT Caller requesting the following information to be faxed: Name/Company of caller: [employer] Information requested to be faxed: Home Health Referral Fax number: [phone] Attention to Name/Company: [employer] Any additional information?: Please call patient after referral has been faxed so that she can schedule her appointment. documented in this encounter Plan of Treatment Upcoming Encounters Date Type Department Care Team (Latest Contact Info) Description 12/16/2023 2:45 PM EDT Office Visit Urology, [facility] [address] [facility] [place] [address] Tc Garcia MD [address] [place] [id number] 12/25/2023 1:45 PM EDT Hospital Encounter OR [facility], Operating Room [facility] [address] [place] [phone] Ozzy Griggs, DO [address] [place] [address] 12/25/2023 1:45 PM EDT - 12/25/2023 2:10 PM EDT Surgery OR [facility], Operating Room [facility] [address] [place] [phone] Ozzy Griggs, DO [address] [place] [address] INJECTION SACROILIAC JOINT 01/06/2024 4:20 PM EST Office Visit [facility], [place] [address] [place] [address] Jadyn Johnson, [address] [place] [address] Scheduled Procedures Name Priority Associated Diagnoses Date/Ti [...] 11/12/2022, Additional history exists HbA1c 12/13/2023 06/13/2023, 0 07/2022, 06/29/2022, Additional history exists Depression Screening [...] filedocumented as of this encounter Care Teams Livestock Auctioneer Relationship Specialty Start Date End Date Jadyn Johnson DO [address] [facility] [place] [address] PCP - General Family Medicine 02/10/19 documented as of this encounter
--- OUTSIDE RECORDS SUMMARY | 2023-12-13 23:51 | External Medical Summary | Summary of Care ---
Author Name Unknown Organization [facility] Address [address] [facility] [place] [address] Phone [phone] Care Team Providers Care Engine Room Helper Name Role Phone Jadyn Johnson DO Primary Care Provider +1- [phone] Reason for Visit * Reason Onset Date Comments Test Results 12/05/2023 Encounter Details Date Type Department Care Team (Late st Contact Info) Description 12/05/2023 Telephone Family Practice [facility], [place] [address] [facility] [place] [address] Jadyn Johnson DO [address] [facility] [place] [address] Test Results Allergies Active Allergy Reactions Criticality Noted Date Comments Gabapentin 05/16/2023 hallucinations Sulfa Antibiotics Rash Low 08/07/2012 documented as of this encounter (statuses as of 12/06/2023) Medications Medication Sig Dispensed Refills Start Date [...] as of this encounter (statuses as of 12/06/2023) Active Problems Problem Noted Date Diagnosed Date [...] as of this encounter (statuses as of 12/06/2023) Resolved Problems Problem Noted Date Diagnosed Date [...] as of this encounter (statuses as of 12/06/2023) Immunizations Name Administration Dates Next Due COVID-19 [...] Telephone Encounter - Jazmine Baez LPN - 12/06/2023 11:38 AM EDT Spoke with patient, she states that once the catheter "fell out" she stopped having symptoms. Home Nursing reinserted catheter. She is not having any symptoms. She is scheduled to Urology on . * Telephone Encounter - Jadyn Johnson DO [...] 12/16/2023 2:45 PM EDT Office Visit Urology, [facility] [address] [place] [address] [address] Tc Garcia MD [address] [place] [address] 12/25/2023 1:45 PM EDT Hospital Encounter OR [facility], Operating Room [facility] [address] [place] [address] Ozzy Griggs DO [address] [place] [address] 12/25/2023 1:45 PM EDT - 12/25/2023 2:10 PM EDT Surgery OR [facility], Operating Room [facility] [address] [place] [address] zOzy Griggs, DO [address] [place] [phone] INJECTION SACROILIAC JOINT 01/06/2024 4:20 PM EST [facility] [address] [place] [address] Jadyn Johnson, DO [address] [place] [address] Scheduled Procedures Name Priority Associated Diagnoses Date/Ti [...] 11/12/2022, Additional history exists HbA1c 12/13/2023 06/13/2023, 07/2022, 06/29/2022, Additional history exists Depression Screening 02/20/2024 02/19/2023 TSH 06/09/2024 06/10/2023, 022 08/2023, 12/31/2022, Additional history exists Albumin/Creatinine Ratio 06/12/2024 [...] filedocumented as of this encounter Care Teams Engine Room Helper Relationship Specialty Start Date End Date Jadyn Johnson DO [address] [facility] [place] [address] PCP - General Family Medicine 02/10/19 documented as of this encounter
--- OUTSIDE RECORDS SUMMARY | 2023-12-13 23:52 | External Medical Summary | Summary of Care ---
Author Name Unknown Organization [facility] Address [address] [place] [facility] [place] [place] [address] Phone [phone] Care Team Providers Care Shower Room Attendant Name Role Phone Jadyn Johnson DO Primary Care Provider +1- [phone] Reason for Visit * Reason Onset Date Comments Referral 12/02/2023 Home Health Aide Encounter Details Date Type Department Care Team (Late st Contact Info) Description 12/02/2023 Telephone Family Practice [facility], [place] [address] [facility] [place] [address] Jadyn Johnson DO [address] [place] [address] Referral (Home Health Aide) Allergies Active Allergy Reactions Criticality Noted Date Comments Gabapentin 05/16/2023 hallucinations Sulfa Antibiotics Rash Low 08/07/2012 documented as of this encounter (statuses as of 12/03/2023) Medications Medication Sig Dispensed Refills Start Date [...] as of this encounter (statuses as of 12/03/2023) Active Problems Problem Noted Date Diagnosed Date [...] as of this encounter (statuses as of 12/03/2023) Resolved Problems Problem Noted Date Diagnosed Date [...] as of this encounter (statuses as of 12/03/2023) Immunizations Name Administration Dates Next Due COVID-19 [...] as of this encounter Miscellaneous Notes * Addendum Note - Richelle Del Rosario LPN - 12/03/2023 9:20 AM EDTAddended by: RICHELLE DEL ROSARIO on: 12/03/2023 09:20 AM Modules accepted: Orders * Telephone Encounter - Richelle Del Rosario LPN - 12/03/2023 9:20 AM EDT Please assist with faxing * Telephone Encounter - Jadyn Johnson DO - 12/03/2023 7:39 AM EDT Ok for order * Telephone Encounter - Jazmine Baez LPN - 12/02/2023 2:12 PM EDT Please advise on referral. * Telephone Encounter - Carlyn Sanchez OSA - 12/02/2023 2:04 PM EDT Paulette from [facility] rec'd the referral for patient for PT and OT. However, they are also requesting an order for home health aide 2x a week for a few weeks. If ok, please place referral so it can be faxed. documented in this encounter Plan of Treatment Upcoming Encounters Date Type Department Care Team (Latest Contact Info) Description 12/25/2023 1:45 PM EDT Hospital Encounter OR [facility], Operating Room [facility] [address] [place] [phone] Ozzy Griggs, DO [address] [place] [phone] 12/25/2023 1:45 PM EDT - 12/25/2023 2:10 PM EDT Surgery OR [facility], Operating Room [facility] [address] [place] [phone] Ozzy Griggs DO [address] [place] [phone] INJECTION SACROILIAC JOINT 01/06/2024 4:20 PM EST Office Visit Family Practice [address] [place] [address] Jadyn Johnson DO [address] [place] [address] Scheduled Procedures Name Priority Associated Diagnoses Date/Ti [...] as of this encounter Visit Diagnoses Diagnosis Lumbar degenerative disc disease- Primary Degeneration of lumbar or lumbosacral intervertebral disc Lumbar disc herniation with radiculopathy Displacement of lumbar intervertebral disc without myelopathy Neuroforaminal stenosis of lumbar spine Inflammation of sacroiliac joint (HCC) Sacroiliitis, not elsewhere classified documented in this encounter Care Teams Shower Room Attendant Relationship Specialty Start Date End Date Jadyn Johnson DO [address] [facility] [place] [address] PCP - General Family Medicine 02/10/19 documented as of this encounter
--- OUTSIDE RECORDS SUMMARY | 2023-12-13 23:52 | External Medical Summary | Summary of Care ---
Author Name Unknown Organization [facility] Address [address] [place] [address] Phone [phone] Care Team Providers Care Loan Auditor Name Role Phone Jadyn Johnson DO Primary Care Provider +1- [phone] Reason for Visit * Reason Onset Date Comments Appointment 12/03/2023 Encounter Details Date Type Department Care Team (Late st Contact Info) Description 12/03/2023 Telephone Urology, [facility] [address] [place] [id number] Services, Scheduling [address] [place] [address] Appointment Allergies Active Allergy Reactions Criticality Noted Date [...] MCG/0.3 mL, 12 YRS AND ABOVE, IM [facility] 11/07/2021 COVID-19, MRNA-LNP, 23-24, P F, 52 [...] encounter Miscellaneous Notes * Telephone Encounter - Chema Riley OSA - 12/03/2023 9:36 AM EDT I spoke to patient and she is scheduled for 12/15 at 2:45pm. Patient also asked if transporting herto the appointment would be an issue due to back surgery, she isn't sure she can sit up that long. I told her I didn't think it should be. FYI * Telephone Encounter - Wanda Oconnor LPN - 12/03/2023 9:13 AM EDT Grayson placed 11/24, pt failed multiple TOVs, has retention post spinal surgery. Patient should be seen by any urologist prior to 12/24. Can go to [facility] if no sooner appointments at [facility]. Patient has home health currently, who can manage catheter until she can beseen by urology. * Telephone Encounter - Amanda Maldonado OSA - 12/03/2023 8:40 AM EDT Please call the pt as she has been in the hospital for 2 mths and she has a catheter and has urinary retention. Please advise on an appt as they are going out far. She had back surgery. Please call to schedule. Thank you Amanda documented in this encounter Plan of Treatment Upcoming Encounters Date Type Department Care Team (Latest Contact Info) Description 12/16/2023 2:45 PM EDT Office Visit Urology, [address] [place] [address] Tc Garcia MD [address] [place] [address] 12/25/2023 1:45 PM EDT Hospital Encounter OR [facility], Operating Room [facility] [address] [place] [phone] Ozzy Griggs, DO [address] [place] [phone] 12/25/2023 1:45 PM EDT - 12/25/2023 2:10 PM EDT Surgery OR [facility], Operating Room [facility] [address] [place] [phone] Ozzy Griggs, DO [address] [place] [phone] INJECTION SACROILIAC JOINT 01/06/2024 4:20 PM EST Office Visit Family [facility] [place] [address] [place] [address] Jadyn Johnson DO [address] [place] [address] Scheduled Procedures Name Priority Associated Diagnoses Date/Ti [...] 11/30/2021, Additional history exists Mammogram 11/28/2023 11/27/2022, 1004/2022, 11/12/2022, Additional history exists HbA1c 12/13/2023 06/13/2023, [...] filedocumented as of this encounter Care Teams Loan Auditor Relationship Specialty Start Date End Date Jadyn Johnson DO [address] [facility] [place] [address] PCP - General Family Medicine 02/10/19 documented as of this encounter
--- OUTSIDE RECORDS SUMMARY | 2023-12-13 23:52 | External Medical Summary | Summary of Care ---
Author Name Unknown Organization [facility] Address [address] [facility] [address] Phone [phone] Care Team Providers Care Commercial Leasing Agent Name Role Phone Jadyn Johnson DO Primary Care Provider +1- [phone] Reason for Visit * Reason Onset Date Comments Referral 12/02/2023 Home Health Aide Encounter Details Date Type Department Care Team (Late st Contact Info) Description 12/02/2023 Telephone Family Practice [facility], [place] [address] [facility] [place] [address] Jadyn Johnson DO [address] [place] [address] Referral (Home Health Aide) Allergies Active [...] - 12/02/2023 2:04 PM EDT Paulette from [facility] rec'd the referral for patient for PT [...] OR [facility], Operating Room [facility] [address] [place] [phone] Ozzy Griggs, [address] [place] [phone] 12/25/2023 1:45 PM EDT - 12/25/2023 2:10 PM EDT Surgery OR [facility], Operating Room [facility] [address] [place] [phone] Ozzy Griggs, DO [address] [place] [phone] INJECTION SACROILIAC JOINT 01/06/2024 4:20 PM EST Office Visit [facility] [address], [place] [address] [place] [address] Jadyn Johnson, DO [address] [place] [address] Scheduled Procedures Name Priority Associated Diagnoses Date/Ti [...] filedocumented as of this encounter Care Teams Commercial Leasing Agent Relationship Specialty Start Date End Date Jadyn Johnson DO [address] [facility] [place] [address] PCP - General Family Medicine 02/10/19 documented as of this encounter
--- OUTSIDE RECORDS SUMMARY | 2023-12-13 23:52 | External Medical Summary | Summary of Care ---
Author Name Unknown Organization [facility] Address [address] [facility] [place] [address] Phone [phone] Care Team Providers Care Assembly And Packing Supervisor Name Role Phone Jadyn Johnson DO Primary Care Provider +1- [phone] Reason for Visit * Reason Onset Date Comments Referral 12/02/2023 Home Health Aide Encounter Details Date Type Department Care Team (Late st Contact Info) Description 12/02/2023 Telephone Family Practice [facility], [place] [address] [facility] [place] [address] Jadyn Johnson DO [address] [place] [address] Referral (Home Health Aide) Allergies Active [...] Telephone Encounter - Eva Haji OSA - 12/03/2023 12:28 PM EDT Faxed referral * Addendum Note - Richelle Conn LPN - 12/03/2023 9:20 AM EDTAddended by: RICHELLE CONN on: 12/03/2023 09:20 AM Modules accepted: Orders * Telephone Encounter - Richelle Conn LPN - 12/03/2023 9:20 AM EDT Please assist with faxing * Telephone Encounter - Jadyn Johnson DO - 12/03/2023 7:39 AM EDT Ok for order * Telephone Encounter - Jazmine Baez LPN - 12/02/2023 2:12 PM EDT Please advise on referral. * Telephone Encounter - Carlyn Sanchez OSA - 12/02/2023 2:04 PM EDT Paulette from [facility] rec'd the referral for patient [...] 12/16/2023 2:45 PM EDT Office Visit Urology, [facility] [address] [place] [address] Tc Garcia MD [address] [place] [address] 12/25/2023 1:45 PM EDT Hospital Encounter OR [facility], Operating Room [facility] [address] [place] [phone] Ozzy Griggs, DO [address] [place] [phone] 12/25/2023 1:45 PM EDT - 12/25/2023 2:10 PM EDT Surgery OR [facility], Operating Room [facility] [address] [place] [phone] Ozzy Griggs, [address] [place] [address] INJECTION SACROILIAC JOINT 01/06/2024 4:20 PM EST [place] [address] [place] [address] Jadyn Johnson, [address] [place] [address] Scheduled Procedures Name Priority Associated Diagnoses Date/Ti [...] classified documented in this encounter Care Teams Assembly And Packing Supervisor Relationship Specialty Start Date End Date Jadyn Johnson DO [address] [facility] [place] [address] PCP - General Family Medicine 02/10/19 documented as of this encounter
--- OUTSIDE RECORDS SUMMARY | 2023-12-13 23:52 | External Medical Summary | Summary of Care ---
Author Name Unknown Organization [facility] Address [address] [facility] [place] [address] Phone [phone] Care Team Providers Care Twenty One Dealer Name Role Phone Jadyn Johnson DO Primary Care Provider +1- [phone] Reason for Visit * Reason Onset Date Comments Fax 12/04/2023 Home Health Refe rral Encounter Details Date Type Department Care Team (Late st Contact Info) Description 12/04/[facility]23 [facility] [facility] [place] [address] Jadyn Johnson DO [address] [place] [address] Fax (Home Health Referral) Allergies Active Allergy Reactions Criticality Noted Date Comments Gabapentin 05/16/2023 hallucinations Sulfa Antibiotics Rash Low 08/07/2012 documented as of this encounter (statuses as of 12/04/2023) Medications Medication Sig Dispensed Refills Start Date [...] as of this encounter (statuses as of 12/04/2023) Active Problems Problem Noted Date Diagnosed Date [...] as of this encounter (statuses as of 12/04/2023) Resolved Problems Problem Noted Date Diagnosed Date [...] as of this encounter (statuses as of 12/04/2023) Immunizations Name Administration Dates Next Due COVID-19 mRNA, LNP-s, No Pre serve, 2-Dose Series (Moderna) 12/16/2020,05/28/2020,04/30/2020 COVID-19, MRNA-LNP, 23-24, P F, 30 MCG/0.3 mL, 12 YRS AND ABOVE, IM (Centrafuse-Comirnaty) 11/07/2021 COVID-19, MRNA-LNP, 23-24, P F, 52 [...] - 12/04/2023 4:05 PM EDT Referral/info-refaxed to [facility]. * Telephone Encounter - Jazmine Baez LPN - 12/04/2023 3:52 PM EDT Home Health referral placed on 12/02/2023 * Telephone Encounter - Luke Lauren OSA - 12/04/2023 3:36 PM EDT Caller requesting the following information to be faxed: Name/Company of caller: [employer] Information requested to be faxed: Home Health Referral Fax number: [phone] Attention to Name/Company: [employer] Any additional information?: Please call patient after referral has been faxed so that she can schedule her appointment. documented in this encounter Plan of Treatment Upcoming Encounters Date Type Department Care Team (Latest Contact Info) Description 12/16/2023 2:45 PM EDT Office Visit Urology, [facility] [address] [facility] [place] [address] Tc Garcia MD [address] [place] [id number] 12/25/2023 1:45 PM EDT Hospital Encounter OR [facility], Operating Room [facility] [address] [place] [phone] Ozzy Griggs, DO [address] [place] [address] 12/25/2023 1:45 PM EDT - 12/25/2023 2:10 PM EDT Surgery OR [facility], Operating Room [facility] [address] [place] [phone] Ozzy Griggs, DO [address] [place] [address] INJECTION SACROILIAC JOINT 01/06/2024 4:20 PM EST Office Visit [facility], [place] [address] [place] [address] Jadyn Johnson, [address] [place] [address] Scheduled Procedures Name Priority Associated Diagnoses Date/Ti [...] filedocumented as of this encounter Care Teams Twenty One Dealer Relationship Specialty Start Date End Date Jadyn Johnson DO [address] [facility] [place] [address] PCP - General Family Medicine 02/10/19 documented as of this encounter
--- OUTSIDE RECORDS SUMMARY | 2023-12-13 23:52 | External Medical Summary | Summary of Care ---
Author Name Unknown Organization [facility] Address [address] [facility] [place] [address] Phone [phone] Care Team Providers Care Marketing/Sales Person Name Role Phone Jadyn Johnson DO Primary Care Provider [phone]- [phone] Reason for Referral * Evaluate & Treat - Unlimited Visits (Within 10 days (routine)) - Authorized Specialty Diagnoses / Procedures Referred By Owen lopez Referred To Contact Urology Diagnoses Urinary retention Mahoney catheter in place Jadyn Johnson DO [address] [place] [address] Referral ID Status Reason Start Date Expiration Date Visits Requested Visits Authorized [id number] Authorized Specialty Services Required 11/29/2023 999 999 Question Answer Referral Priority Within 10 days (routine) Where should this appointment be scheduled? [facility] What is the patient being referred for? Urinary Concerns Reason for Visit * Reason Onset Date Comments Hospital Follow-Up Hospital foll ow up, [facility] then [facility] and then [facility], she had 2 back surgeries, home just this past Saturday. First surgery was 09/23, and just now getting home. She has [facility] now, and would like to exchange underwriting consultant to [facility] so she would have the option of getting an programmer business. Hospital Follow-Up 11/29/2023 Encounter Details Date Type Department Care Team (Late st Contact Info) Description 11/29/2023 11:00 AM EDT Telemedicine Family Practice [place] [address] [place] [address] Jadyn Johnson DO [address] [facility] [place] [address] Hospital discharge follow-up*; Compression fracture of L2 vertebra with routine healing, subsequent encounter; Compression fracture of L1 vertebra with routine healing, subsequent encounter; Urinary retention; Mahoney catheter in place; Type 2 diabetes mellitus without complication, without long-term current use of insulin (HCC) Allergies Active Allergy Reactions Criticality Noted Date Comments Gabapentin 05/16/2023 hallucinations Sulfa Antibiotics Rash Low 08/07/2012 documented as of this encounter (statuses as of 11/29/2023) Medications Medication Sig Dispensed Refills Start Date [...] Active Ciprofloxacin HCl 250 MG Oral Tablet (Cipro)Indications:U rinary retention,Mahoney catheter in place Take 1 Tablet by mouth in the morning and 1 Tablet before bedtime. Do all this for 10 days. 20 Tablet 11/29/2023 4 Active Buprenorphine 7.5 MCG/HR Transdermal Patch Weekly (Butrans)Indications :Compression fracture of L2 vertebra with routine healing, subsequent encounter,Compressio n fracture of L1 vertebra with routine healing, subsequent encounter Place 1 Patch topically on the skin once a week. 4 Patch 11/29/2023 Active Probiotic Acidophilus Oral Capsule Take 1 Tablet by mouth every evening. 4 Discontinue d(End of Procedure) Colesevelam HCl 625 MG Oral Tablet (Welchol)Indications :Diarrhea, unspecified type TAKE TWO TABLETS BY MOUTH TWICE A DAY WITH MORNING AND EVENING MEALS 120 Tablet 5 08/02/2023 4 Discontinue d(End of Procedure) Naproxen 500 MG Oral Tablet (Naprosyn) Take 1 Tablet by mouth 2 times a day with morning and evening meals. 60 Tablet 3 09/13/2023 4 Discontinue d(End of Procedure) Buprenorphine 7.5 MCG/HR Transdermal Patch Weekly (Butrans) Place topically on the skin once a week. 4 Discontinue d(Refill) tiZANidine HCl 2 MG Oral Capsule Take 1 Capsule by mouth at bedtime. 4 Discontinue d(Refill) Alum & Mag Hydroxide-Simeth 200-200-20 MG/5ML Oral Suspension (Maalox Max) Take by mouth every 6 hours as needed for Indigestion. 4 Discontinue d(End of Procedure) documented as of this encounter (statuses as of 11/29/2023) Active Problems Problem Noted Date Diagnosed Date [...] as of this encounter (statuses as of 11/29/2023) Resolved Problems Problem Noted Date Diagnosed Date [...] as of this encounter (statuses as of 11/29/2023) Immunizations Name Administration Dates Next Due COVID-19 mRNA, LNP-s, No Pre serve, 2-Dose Series (Moderna) 12/16/2020,05/28/2020,04/30/2020 COVID-19, MRNA-LNP, 23-24, P F, 30 MCG/0.3 mL, 12 YRS AND ABOVE, IM ([facility]) 11/07/2021 COVID-19, MRNA-LNP, 23-24, P F, 52 [...] on file documented as of this encounter Progress Notes * Jadyn Johnson, - 11/29/2023 11:09 AM EDT SUBJECTIVE: Carlyn Tafoya is a 73 year old female. Chief Complaint Patient presents with Hospital Follow-Up Hospital follow up, [facility] then to [facility] and then [facility], she had 2 back surgeries, home just this past Saturday. First surgery was 09/23, and just now getting home. She has [facility] now, and would like to exchange underwriting consultant to [facility] so she would have the option of getting an programmer business. Hospital Follow-Up Recent Admission: Patient was recently admitted to [facility]. The date of discharge was 11/25/23. Discharge report received and reviewed. HPI: 73-year-old female seen by video visit for hospital follow-up Chart review Patient was recently discharged from [facility] after she was there for snf and physical therapy Patient recently had kyphoplasty done of L1 and L2 compression fractures Patient has had a number of spinal surgeries done over the last 10 months due to various complications Patient does have home nursing and physical therapy She does have follow-up with spinal Orthopedics on December 04 States that while she was in [facility] she did have some low blood pressures, they had stopped her HCTZ Her blood sugars have been running in the 130 range She has been having issues with urinary retention, was discharged to [facility] with Mahoney catheter, has been having some issues with infections, has gone through a couple voiding trials and has not done well, Mahoney has been in place since Saturday Patient currently on Flomax Patient Active Problem List Diagnosis Type 2 diabetes mellitus without complication, without long-term current use of insulin (HCC) Acquired hypothyroidism Mixed dyslipidemia HTN, goal below 140/90 Lumbar degenerative disc disease Severe obesity with body mass index (BMI) of 35.0 to 39.9 with serious comorbidity (HCC) 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 As directed prior to dental work.- Take 4 tablets prior to procedure 4 Capsule 1 Acetaminophen 500 MG Oral Tablet (Tylenol Extra Strength) Take 1 Tablet by mouth every 6 hours as needed. Loperamide HCl 2 MG Oral Capsule (Imodium A-D) Take 1 Capsule by mouth 4 times a day as needed for Diarrhea. Levothyroxine Sodium 200 MCG Oral Tablet (Synthroid) Take 1 Tablet by mouth in the morning. (at least 30 min prior to breakfast or other meds). 90 Tablet 3 Ibuprofen 200 MG Oral Tablet (Advil) Take 3 Tablets by mouth in the morning and 3 Tablets before bedtime. Pioglitazone HCl 15 MG Oral Tablet (Actos) Take 1 Tablet by mouth in the morning. 90 Tablet 3 oxyCODONE HCl 5 MG Oral Capsule (Oxy IR) Take 1 Capsule by mouth every 6 hours as needed for Pain, Severe, Pain, Moderate or Pain, Mild. OLANZapine 2.5 MG Oral Tablet (ZyPREXA) Take 1 Tablet by mouth at bedtime. FOR NAUSEA Magnesium Gluconate 500 MG Oral Tablet Take 500 mg by mouth in the morning. Tamsulosin HCl 0.4 MG Oral Capsule (Flomax) Take 1 Capsule by mouth in the morning. Vitamin D3 25 MCG Oral Tablet Take 2 Tablets by mouth in the morning. Colchicine 0.6 MG Oral Capsule Take by mouth. As needed for gout Docusate Sodium 100 MG Oral Capsule (Colace) Take 1 Capsule by mouth in the morning and 1 Capsule before bedtime. Pantoprazole Sodium 40 MG Oral Tablet Delayed Release (Protonix) Take 1 Tablet by mouth in the morning and 1 Tablet before bedtime. Ondansetron HCl 4 MG Oral Tablet Take 1 Tablet by mouth every 8 hours as needed for Nausea. Prochlorperazine Maleate 5 MG Oral Tablet (Compazine) Take 1 Tablet by mouth every 8 hours as needed for Nausea. LORazepam 0.5 MG Oral Tablet (Ativan) Take 1 Tablet by mouth every 8 hours as needed for Other (nausea). tiZANidine HCl 2 MG Oral Capsule Take 1 Capsule by mouth at bedtime. 30 Capsule 5 Polyethylene Glycol 3350 17 GM Oral Packet (MiraLax) Take 1 Packet by mouth in the morning. Ciprofloxacin HCl 250 MG Oral Tablet (Cipro) Take 1 Tablet by mouth in the morning and 1 Tablet before bedtime. Do all this for 10 days. 20 Tablet 0 Buprenorphine 7.5 MCG/HR Transdermal Patch Weekly (Butrans) Place 1 Patch topically on the skin once a week. 4 Patch 0 Multi Vitamin Oral Tablet Take 1 Tablet by mouth every evening. No current facility-administered medications for this visit. Current and discharge medications have been reconciled. Review of patient's allergies indicates: Allergen Reactions Gabapentin hallucinations Sulfa Antibiotics Rash OBJECTIVE: There were no vitals taken for this visit. REVIEW OF SYSTEMS: PHYSICAL EXAM: There were no vitals taken for this visit. Physical Exam Neurological: Mental Status: She is alert. Comments: Patient lying in bed Psychiatric: Mood and Affect: Mood normal. Behavior: Behavior normal. ASSESSMENT: Hospital discharge follow-up (Primary) - DISCH MED RECON CUR MED LIS Compression fracture of L2 vertebra with routine healing, subsequent encounter - Buprenorphine 7.5 MCG/HR Transdermal Patch Weekly (Butrans); Place 1 Patch topically on the skin once a week. Compression fracture of L1 vertebra with routine healing, subsequent encounter - Buprenorphine 7.5 MCG/HR Transdermal Patch Weekly (Butrans); Place 1 Patch topically on the skin once a week. Urinary retention - ADULT/PEDS UROLOGY REFERRAL OP - CULTURE, URINE, QUANTITATIVE; Future; Expected date: 11/29/2023 - Ciprofloxacin HCl 250 MG Oral Tablet (Cipro); Take 1 Tablet by mouth in the morning and 1 Tablet before bedtime. Do all this for [address] - ADULT/PEDS UROLOGY REFERRAL OP - CULTURE, URINE, QUANTITATIVE; Future; Expected date: 11/29/2023 - Ciprofloxacin HCl 250 MG Oral Tablet (Cipro); Take 1 Tablet by mouth in the morning and 1 Tablet before bedtime. Do all this for 10 days. Type 2 diabetes mellitus without complication, without long-term current use of insulin (HCC) Other orders - tiZANidine HCl 2 MG Oral Capsule; Take 1 Capsule by mouth at bedtime. Continue to follow up with spinal orthopedics [facility] and home PT, will continue to work with case management Needs to see urology regarding chronic urinary retention and mahoney Will send in cipro for the weekend, check urine culture Continue pain medications for now Follow Up: Return for Keep scheduled appointment. | For: Keep scheduled appointment I spent a total of 40-54 minutes (exact time 45 mins) minutes on the date of service in preparation, delivery, and documentation of the care provided to Carlyn Tafoya excluding any time spent in performance of separately billed services. Jadyn Johnson DO Patient location: HOME. I was in a hospital or clinic location. After connecting through [facility],patient was verified with two unique identifiers. Patient (or authorized legal food service sales representatives) was then informed that this was a Telemedicine visit and being conducted confidentially over secure lines. Methods to assure confidentiality were taken. Patient acknowledged consent and understanding of pr ivacy and security of the Telemedicine visit. The patient agreed to participate. documented in this encounter Nursing Notes * Radha Keen LPN - 11/29/2023 10:57 AM EDT Chief Complaint Patient presents with Hospital Follow-Up Hospital follow up, [facility] then [facility] and then [facility], she had 2 back surgeries, home just this past Saturday. First surgery was 09/23, and just now getting home. She has [facility] now, and would like to exchange underwriting consultant to [facility] so she would have the option of getting an programmer business. documented in this encounter Plan of Treatment Upcoming Encounters Date Type Department Care Team (Latest Contact Info) Description 12/25/2023 1:45 PM EDT Hospital Encounter OR [facility], Operating Room [facility] [address] [place] [phone] Ozzy Griggs DO [address] [place] [address] 12/25/2023 1:45 PM EDT - 12/25/2023 2:10 PM EDT Surgery OR [facility], Operating Room [facility] [address] [place] [phone] Ozzy Griggs, DO [address] [place] [phone] INJECTION SACROILIAC JOINT 01/06/2024 4:20 PM EST [facility] [address], [place] [address] [place] [address] Jadyn Johnson, DO [address] [place] [address] Pending Results Name Type Priority Associated Diagnoses Date /Time CULTURE, URINE, QUANTITATIVE Lab Routine Urinary retention Mahoney catheter in place 11/29/2023 1:38 PM EDT Scheduled Orders Name Type Priority Associated Diagnoses Orde r Schedule CULTURE, URINE, QUANTITATIVE Lab Routine Urinary retention Mahoney catheter in place Expected: 11/29/2023, Expires: 11/28/2024 Scheduled Procedures Name Priority Associated Diagnoses Date/Ti me INJECTION SACROILIAC JOINT Inflammation of sacroiliac joint (HCC) 12/25/2023 1:45 PM EDT Scheduled Referrals Name Type Priority Associated Diagnoses Orde r Schedule ADULT/PEDS UROLOGY REFERRAL OP Referral Within 10 days (routine) Urinary retention Mahoney catheter in place Ordered: 11/29/2023 Health Maintenance Due Date Last Done Comments Hepatitis C Screening 1970 Cologuard 1997 Sigmoidoscopy 1997 Adult Wellness Visit 2018 Fecal Occult Blood Test 07/18/2019 07/18/19 19, 08/20/2013, 08/07/2012 Diabetic Foot Exam 07/07/2023 07/06/2022, 0 08/26/2020, 08/18/2019 COVID-19 Vaccine ( season) 2023 11/17/2022, 01/03/2022, 11/07/2021, Additional history exists Influenza Vaccine (FLU shot) (#1) 2023 12/03/2022, 12/03/2022, 11/30/2021, Additional history exists Mammogram 11/28/2023 11/27/2022, 100 04/2022, 11/12/2022, Additional history exists HbA1c 12/13/2023 [...] as of this encounter Visit Diagnoses Diagnosis Hospital discharge follow-up- Primary Other follow-up examination Compression fracture of L2 vertebra with routine healing, subsequent encounter Compression fracture of L1 vertebra with routine healing, subsequent encounter Urinary retention Retention of urine, unspecified Mahoney catheter in place Other postprocedural status Type 2 diabetes mellitus without complication, without long-term current use of insulin (HCC) Inflammation of sacroiliac joint (HCC) Sacroiliitis, not elsewhere classified documented in this encounter Care Teams Marketing/Sales Person Relationship Specialty Start Date End Date Jadyn Johnson DO [address] [facility] [place] [address] PCP - General Family Medicine 02/10/19 documented as of this encounter"
--- OUTSIDE RECORDS SUMMARY | 2023-12-13 23:52 | External Medical Summary | Summary of Care ---
Author Name Unknown Organization [facility] Address [address] [place] [address] Phone [phone] Care Team Providers Care Ornamental Metal Erector Apprentice Name Role Phone Jadyn Johnson DO Primary Care Provider +1- [phone] Reason for Referral * Evaluate & Treat - Unlimited Visits (Within 24 hrs (call dept; emergent)) - Authorized Specialty Diagnoses / Procedures Referred By Contac t Referred To Contact HOME CARE / Home Care Diagnoses Need for case management follow-up Hospital discharge follow-up Compression fracture of L2 vertebra with routine healing, subsequent encounter Compression fracture of L1 vertebra with routine healing, subsequent encounter Urinary retention Type 2 diabetes mellitus without complication, without long-term current use of insulin ([facility]) Jadyn Johnson DO [address] [place] [address] Referral ID Status Reason Start Date Expiration Date Visits Requested Visits Authorized [id number] Authorized Specialty Services Required 12/02/2023 999 999 Question Answer Referral Priority Within 24 hrs (call dept; emergent) Where should this appointment be scheduled? [facility] Comments Documentation of [id number] Encounter Addendum Patient Name: Carlyn Tafoya I certify that this patient is under my care and that I, or a nurse practitioner or physician's pediatric assistant working with me, had a [id number] encounter that meets the physician orhp-er-wyyv encounter requirements with this patient on: 11/29/23 The encounter with the patient was in whole, or in part, for the following medical condition, which is the primary reason for home health care (List medical condition): Mahoney Catheter Care ([address] [place]), PT/OT, home nursing I certify that, based on my findings, the following services are medically necessary home health services: Nursing, Physical Therapy, and Occupational therapy To provide the following care/treatments: (All hospitalists not following the patient after discharge should complete this section): mahoney catheter care, pt/ot, home nursing - assistance bathing, dressing Primary Care Physician to follow home care plan of care after discharge: Dr Jadyn Johnson My clinical findings support the need for the above services because: see notes. Further, I certify that my clinical findings support that this patient is homebound (i.e. Absences from home require considerable and taxing effort and are for medical reasons or zoroastrian services or infrequently or of short duration when for other reason) because: Patient is home bound. Physician Signature: Date of Signature: Physician Printed Name: Dr Jadyn Johnson Encounter Details Date Type Department Care Team (Late st Contact Info) Description 12/02/2023 Orders Only Family Practice [place] [address] [place] [address] Jadyn Johnson DO [address] [place] [address] Need for case management follow-up*; Hospital discharge follow-up; Compression fracture of L2 vertebra with routine healing, subsequent encounter; Compression fracture of L1 vertebra with routine healing, subsequent encounter; Urinary retention; Type 2 diabetes mellitus without complication, without long-term current use of insulin (HCC) Allergies Active Allergy Reactions Criticality Noted Date Comments Gabapentin 05/16/2023 hallucinations Sulfa Antibiotics Rash Low 08/07/2012 documented as of this encounter (statuses as of 12/02/2023) Medications Medication Sig Dispensed Refills Start Date [...] HCl 250 MG Oral Tablet (Cipro)Indications:Ur inary retention,Mahoney catheter in place Take 1 Tablet [...] as of this encounter (statuses as of 12/02/2023) Active Problems Problem Noted Date Diagnosed Date [...] as of this encounter (statuses as of 12/02/2023) Resolved Problems Problem Noted Date Diagnosed Date [...] as of this encounter (statuses as of 12/02/2023) Immunizations Name Administration Dates Next Due COVID-19 [...] Operating Room [facility] [address] [place] [phone] Ozzy Griggs DO [address] [place] [phone] 12/25/2023 1:45 PM EDT - 12/25/2023 2:10 PM EDT Surgery OR [facility], Operating Room [facility] [address] [place] [phone] Ozzy Griggs DO [address] [place] [phone] INJECTION SACROILIAC JOINT 01/06/2024 4:20 PM EST Office Visit Family Practice [address] [place] [address] Jadyn Johnson, DO [address] [facility] [place] [address] Scheduled Procedures Name Priority Associated Diagnoses Date/Ti me INJECTION SACROILIAC JOINT Inflammation of sacroiliac joint (HCC) 12/25/2023 1:45 PM EDT Scheduled Referrals Name Type Priority Associated Diagnoses Orde r Schedule HOME HEALTH REFERRAL OP Referral Within 24 hrs (call dept; emergent) Need for case management follow-up Hospital discharge follow-up Compression fracture of L2 vertebra with routine healing, subsequent encounter Compression fracture of L1 vertebra with routine healing, subsequent encounter Urinary retention Type 2 diabetes mellitus without complication, without long-term current use of insulin (HCC) Ordered: 12/02/2023 Health Maintenance Due Date Last Done Comments [...] Diagnosis Need for case management follow-up- Primary Hospital discharge follow-up Other follow-up examination Compression fracture of L2 vertebra with routine healing, subsequent encounter Compression fracture of L1 vertebra with routine healing, subsequent encounter Urinary retention Retention of urine, unspecified Type 2 diabetes mellitus without complication, without long-term current use of insulin (HCC) Inflammation of sacroiliac joint (HCC) Sacroiliitis, not elsewhere classified documented in this encounter Care Teams Ornamental Metal Erector Apprentice Relationship Specialty Start Date End Date Jadyn Johnson DO [address] [facility] [place] [address] PCP - General Family Medicine 02/10/19 documented as of this encounter
--- OUTSIDE RECORDS SUMMARY | 2023-12-13 23:52 | External Medical Summary | Summary of Care ---
Author Name Unknown Organization [facility] Address [address] [place] [address] Phone [phone] Care Team Providers Care Cuff Presser Name Role Phone Jadyn Johnson DO Primary Care Provider +1- [phone] Reason for Visit * Reason Onset Date Comments Appointment 12/03/2023 Encounter Details Date Type Department Care Team (Late st Contact Info) Description 12/03/2023 Telephone Urology, [facility] [address] [facility] [place] [phone] Services, Scheduling [address] [place] [address] Appointment Allergies Active Allergy Reactions Criticality Noted [...] MCG/0.3 mL, 12 YRS AND ABOVE, [facility] 11/07/2021 COVID-19, MRNA-LNP, 23-24, P F, 52 [...] encounter Miscellaneous Notes * Telephone Encounter - Wanda Oconnor LPN - 12/03/2023 9:13 AM EDT Grayson placed 11/24, pt failed multiple TOVs, has retention post spinal surgery. Patient should be seen by any urologist prior to 12/24. Can go to [facility] if no sooner appointments at [facility]. Patient has home health currently, who [...] 12/25/2023 1:45 PM EDT Hospital Encounter OR [facility], Operating Room [facility] [address] [place] [phone] Ozzy Griggs, [address] [place] [phone] 12/25/2023 1:45 PM EDT - 12/25/2023 2:10 PM EDT Surgery OR [facility], Operating Room [facility] [address] [place] [phone] Ozzy Griggs, [address] [place] [phone] INJECTION SACROILIAC JOINT 01/06/2024 4:20 PM EST Office Visit Family Practice [address], [place] [address] [place] [address] Jadyn Johnson DO [address] [place] [address] Scheduled Procedures Name Priority Associated Diagnoses Date/Ti [...] filedocumented as of this encounter Care Teams Cuff Presser Relationship Specialty Start Date End Date Jadyn Johnson DO [address] [facility] [place] [address] PCP - General Family Medicine 02/10/19 documented as of this encounter
--- OUTSIDE RECORDS SUMMARY | 2023-12-13 23:52 | External Medical Summary | Summary of Care ---
Author Name Unknown Organization [facility] Address [address] [place] [address] Phone [phone] Care Team Providers Care Highway Technician Name Role Phone Jadyn Johnson DO Primary Care Provider +1- [phone] Reason for Visit * Reason Comments Outpatient Testing Encounter Details Date Type Department Care Team (Late st Contact Info) Description 11/29/2023 1:40 PM EDT Laboratory Laboratory [facility] [place] [address] [facility] [place] [address] [facility] [address] [facility] [place] [address] Urinary retention; Grayson catheter in place Allergies Active Allergy Reactions Criticality Noted Date [...] mg by mouth in the morning. Active Buprenorphine 7.5 MCG/HR Transdermal Patch Weekly (Butrans) Place topically on the skin once a week. Active Tamsulosin HCl 0.4 MG Oral Capsule [...] 10 days. 20 Tablet 11/29/2023 12/09/2023 Active documented as of this encounter (statuses [...] Room [facility] [address] [place] [phone] Ozzy Griggs, [address] [place] [address] 12/25/2023 1:45 PM EDT - 12/25/2023 2:10 PM EDT Surgery OR OSS, Operating Room [facility] [address] [place] [address] Ozzy Griggs, [address] [place] [phone] INJECTION SACROILIAC JOINT 01/06/2024 4:20 PM EST Office Visit Family [facility] [place] [address] [place] [address] Jadyn Johnson DO [address] [place] [address] Pending Results Name Type Priority Associated Diagnoses Date /Time CULTURE, URINE, QUANTITATIVE Lab Routine Urinary retention Grayson catheter in place 11/29/2023 1:38 PM EDT Scheduled Procedures Name Priority Associated Diagnoses Date/Ti [...] as of this encounter Visit Diagnoses Diagnosis Urinary retention Retention of urine, unspecified Grayson catheter in place Other postprocedural status Inflammation of sacroiliac joint (HCC) Sacroiliitis, not elsewhere classified documented in this encounter Care Teams Highway Technician Relationship Specialty Start Date End Date Jadyn Johnson DO [address] [facility] [place] [address] PCP - General Family Medicine 02/10/19 documented as of this encounter
--- OUTSIDE RECORDS SUMMARY | 2023-12-13 23:52 | External Medical Summary | Summary of Care ---
Author Name Unknown Organization [facility] Address [address] [facility] [place] [address] Phone [phone] Care Team Providers Care Wash Oil Cooler Operator Name Role Phone Jadyn Johnson DO Primary Care Provider +1- [phone] Reason for Visit * Reason Onset Date Comments Referral 11/29/2023 Urology Encounter Details Date Type Department Care Team (Late st Contact Info) Description 11/29/2023 Telephone Family Practice [facility] [place] [address] [facility] [place] [address] Jadyn Johnson DO [address] [facility] [place] [address] Referral (Urology) Allergies Active Allergy Reactions Criticality Noted Date [...] Telephone Encounter - Eva Haji OSA - 11/29/2023 12:16 PM EDT Pts stopped in office. DME order faxed to Jeffery. He sts Elizabeth is handling urology order. documented in this encounter Plan of Treatment Upcoming Encounters Date Type Department Care Team (Latest Contact Info) Description 12/25/2023 1:45 PM EDT Hospital Encounter OR [facility], Operating Room [facility] [address] [place] [address] Ozzy Griggs, [address] [place] [address] 12/25/2023 1:45 PM EDT - 12/25/2023 2:10 PM EDT Surgery OR [facility], Operating Room [facility] [address] [place] [phone] Ozzy Griggs DO [address] [place] [address] INJECTION SACROILIAC JOINT 01/06/2024 4:20 PM EST [facility] [address] [address] [place] [address] Jadyn Johnson DO [address] [place] [address] Scheduled Procedures Name Priority Associated Diagnoses Date/Ti [...] filedocumented as of this encounter Care Teams Wash Oil Cooler Operator Relationship Specialty Start Date End Date Jadyn Johnson DO [address] [facility] [place] [address] PCP - General Family Medicine 02/10/19 documented as of this encounter
--- OUTSIDE RECORDS SUMMARY | 2023-12-13 23:52 | External Medical Summary | Summary of Care ---
Author Name Unknown Organization [facility] Address [address] [place] [address] Phone [phone] Care Team Providers Care Pricer Bagger Name Role Phone Jadyn Johnson DO Primary Care Provider +1- [phone] Reason for Visit * Reason Onset Date Comments Appointment 12/03/2023 Encounter Details Date Type Department Care Team (Late st Contact Info) Description 12/03/2023 Telephone Urology, [facility] [address] [facility] [place] [phone] Services, Scheduling [address] [place] [address] Appointment Allergies Active Allergy Reactions Criticality Noted [...] MCG/0.3 mL, 12 YRS AND ABOVE, IM [facility] 11/07/2021 COVID-19, MRNA-LNP, 23-24, P F, 52 [...] encounter Miscellaneous Notes * Telephone Encounter - Amanda Maldonado OSA [...] Room [facility] [address] [place] [address] Ozzy Griggs, [address] [place] [address] 12/25/2023 1:45 PM EDT - 12/25/2023 2:10 PM EDT Surgery OR [facility], Operating Room [facility] [address] [place] [address] Ozzy Griggs DO [address] [place] [address] INJECTION SACROILIAC JOINT 01/06/2024 4:20 PM EST Office Visit Family Practice [address] [place] [address] Jadyn Johnson DO [address] [place] [address] Scheduled Procedures Name Priority Associated Diagnoses Date/Ti [...] filedocumented as of this encounter Care Teams Pricer Bagger Relationship Specialty Start Date End Date Jadyn Johnson DO [address] [facility] [place] [address] PCP - General Family Medicine 02/10/19 documented as of this encounter
--- OUTSIDE RECORDS SUMMARY | 2023-12-13 23:52 | External Medical Summary | Summary of Care ---
Author Name Unknown Organization [facility] Address [address] [place] [address] Phone [phone] Care Team Providers Care Wet Chemistry Analyst Name Role Phone Jadyn Johnson DO Primary Care Provider +1- [phone] Reason for Visit * Reason Onset Date Comments Appointment 12/03/2023 Encounter Details Date Type Department Care Team (Late st Contact Info) Description 12/03/2023 Telephone Urology, [facility] [address] [facility] [place] [phone] Services, Scheduling [address] [place] [address] Appointment Allergies Active Allergy Reactions Criticality Noted [...] MCG/0.3 mL, 12 YRS AND ABOVE, IM [facility] 11/07/2021 COVID-19, MRNA-LNP, 23-24, P F, 52 [...] Encounter - Wanda Oconnor LPN - 12/03/2023 9:46 AM EDT Using transportation is fine. We can accommodate a litter in office if needed. * Telephone Encounter - Chema Riley OSA - 12/03/2023 9:36 AM EDT I spoke to patient and she is scheduled for 12/15 at 2:45pm. Patient also asked if transporting herto the appointment would be an issue due to back surgery, she isn't sure she can sit up that long. I told her I didn't think it should be. FAYE * Telephone Encounter - Wanda Oconnor LPN - 12/03/2023 9:13 AM EDT Grayson placed 11/24, pt failed multiple TOVs, has retention post spinal surgery. Patient should be seen by any urologist prior to 12/24. Can go to the [facility] if no sooner appointments at [facility]. Patient has home health currently, who [...] 12/16/2023 2:45 PM EDT Office Visit Urology, [facility] [address] [place] [address] Tc Garcia MD [address] [place] [address] 12/25/2023 1:45 PM EDT Hospital Encounter OR [facility], Operating Room [facility] [address] [place] [phone] Ozzy Griggs DO [address] [place] [address] 12/25/2023 1:45 PM EDT - 12/25/2023 2:10 PM EDT Surgery OR [facility], Operating Room [facility] [address] [place] [phone] Ozzy Griggs, [address] [place] [phone] INJECTION SACROILIAC JOINT 01/06/2024 4:20 PM EST [facility] [address] [place] [address] Jadyn Johnson DO [address] [place] [place] [address] Scheduled Procedures Name Priority Associated Diagnoses Date/Ti [...] filedocumented as of this encounter Care Teams Wet Chemistry Analyst Relationship Specialty Start Date End Date Jadyn Johnson DO [address] [facility] [place] [address] PCP - General Family Medicine 02/10/19 documented as of this encounter
--- OUTSIDE RECORDS SUMMARY | 2023-12-13 23:52 | External Medical Summary | Summary of Care ---
Author Name Unknown Organization [facility] Address [address] [place] [facility] [place] [address] Phone [phone] Care Team Providers Care Rubber Tubing Splicer Name Role Phone Jadyn Johnson DO Primary Care Provider +1- [phone] Reason for Visit * Reason Onset Date Comments Referral 12/02/2023 Home Health Aide Encounter Details Date Type Department Care Team (Late st Contact Info) Description 12/02/2023 Telephone Family Practice [facility] [place] [address] [facility] [place] [address] Jadyn Johnson DO [address] [place] [address] Referral (Home Health Aide) Allergies Active [...] - 12/02/2023 2:04 PM EDT Paulette from [facility] rec'd the referral for patient for PT [...] Room [facility] [address] [place] [phone] Ozzy Griggs, DO [address] [place] [phone] 12/25/2023 1:45 PM EDT - 12/25/2023 2:10 PM EDT Surgery OR [facility], Operating Room [facility] [address] [place] [address] Ozzy Griggs DO [address] [place] [phone] INJECTION SACROILIAC JOINT 01/06/2024 4:20 PM EST Office Visit Family Practice [address] [place] [address] Jadyn Johnson DO [address] [place] [address] Scheduled Procedures Name Priority Associated Diagnoses Date/Ti [...] classified documented in this encounter Care Teams Rubber Tubing Splicer Relationship Specialty Start Date End Date Jadyn Johnson DO [address] [facility] [place] [address] PCP - General Family Medicine 02/10/19 documented as of this encounter
--- OUTSIDE RECORDS SUMMARY | 2023-12-13 23:53 | External Medical Summary | Summary of Care ---
Author Name Unknown Organization [facility] Address [address] [facility] [place] [address] Phone [phone] Care Team Providers Care Reimbursement Auditor Name Role Phone Jadyn Johnson DO Primary Care Provider +1- [phone] Reason for Visit * Reason Onset Date Comments FYI 11/27/2023 Encounter Details Date Type Department Care Team (Late st Contact Info) Description 11/27/2023 Telephone Family Practice [place] [place] [address] [place] [address] Jadyn [facility] [address] [facility] [address] FYI Allergies Active Allergy Reactions Criticality Noted Date Comments Gabapentin 05/16/2023 hallucinations Sulfa Antibiotics Rash Low 08/07/2012 documented as of this encounter (statuses as of 11/28/2023) Medications Medication Sig Dispensed Refills Start Date [...] as of this encounter (statuses as of 11/28/2023) Active Problems Problem Noted Date Diagnosed Date [...] as of this encounter (statuses as of 11/28/2023) Resolved Problems Problem Noted Date Diagnosed Date [...] as of this encounter (statuses as of 11/28/2023) Immunizations Name Administration Dates Next Due COVID-19 [...] encounter Miscellaneous Notes * Telephone Encounter - Jennifer Coto OSA - 11/28/2023 12:33 PM EDT Relayed message to home health * Telephone Encounter - Radha Keen LPN - 11/28/2023 11:25 AM EDT [facility] and will go from there with referral. * Telephone Encounter - Maria Teresa Garvin OSA - 11/27/2023 2:38 PM EDT Pt and hospice nurse are requesting a referral to [facility] for Physical therapy, nurse, and an Aid Pt currently scheduled to come in 11/28 documented in this encounter Plan of Treatment Upcoming Encounters Date Type Department Care Team (Latest Contact Info) Description 11/29/2023 11:00 AM EDT Telemedicine Family Practice [address] [place] [address] Jadyn Johnson DO [address] [place] [address] 12/25/2023 1:45 PM EDT Hospital Encounter OR [facility], Operating Room [facility] [address] [place], [place] [phone] Ozzy Griggs, DO [address] [place] [phone] 12/25/2023 1:45 PM EDT - 12/25/2023 2:10 PM EDT Surgery OR [facility], Operating Room [facility] [address] [place] [phone] Ozzy Griggs, DO [address] [place] [phone] INJECTION SACROILIAC JOINT 01/06/2024 4:20 PM EST Office Visit [facility] [place] [address] [place] [address] Jadyn Johnson, [address] [place] [address] Scheduled Procedures Name Priority Associated Diagnoses Date/Ti me INJECTION SACROILIAC JOINT Inflammation of sacroiliac joint (HCC) 12/25/2023 1:45 PM EDT Health Maintenance Due Date Last Done Comments Hepatitis C Screening 1970 Cologuard 1997 Sigmoidoscopy 1997 Adult Wellness Visit 2018 Fecal Occult Blood Test 07/18/2019 07/18/19 19, 08/20/2013, 08/07/2012 Diabetic Foot Exam 07/07/2023 07/06/2022, 0 08/26/2020, 08/18/2019 COVID-19 Vaccine ( season) 2023 11/17/2022, 01/03/2022, 05/29/2021, Additional history [...] filedocumented as of this encounter Care Teams Reimbursement Auditor Relationship Specialty Start Date End Date Jadyn Johnson DO [address] [place] [address] PCP - General Family Medicine 02/10/19 documented as of this encounter
--- OUTSIDE RECORDS SUMMARY | 2023-12-13 23:53 | External Medical Summary | Continuity Of Care Document ---
Author Name Unknown Address [address] [place] [address] Organization [facility][note 3] Gregg () Care Team Providers Care Orthotics Prosthetics Assistant Name Role Phone DO Parson Amy Primary Care Provider [phone] Allergies Allergy Reaction Start Date End Date Status SULFA (SULFONAMIDE ANTIBIOTICS) 00/0 Active BACLOFEN Active TRAMADOL Active GABAPENTIN Active Medications Medication Instructions Dosage Start Date End Date Status Order Date Drug Code Frequency Route of Admin Diagnosis Code Substitutions Allowed Tubersol 5 tub. unit/0.1 mL intradermal injection solution [Tuberculin PPD] 0.1 mL Intradermal 1 time For PPD Step 1 GIVE on Day 1 and read results Day 3 0.1 mL 11/13 Inactiv e 2023 55686 90108 0 1 time Intrad ermal False Tubersol 5 tub. unit/0.1 mL intradermal injection solution [Tuberculin PPD] 0.1mL Intradermal 1 time For PPD 2nd Step Give 2nd Step PPD Day 1 and Read results Day 3 (schedule 7 days after 1st READ) 0.1mL 11/13 Inactiv e 2023 28244 30260 0 1 time Intrad ermal False DISCONTINUE as of 11/14/2023: Tubersol 5 tub. unit/0.1 mL intradermal injection solution [Tuberculin PPD] 11/13 Inactiv e 2023 48903 61991 0 Tubersol 5 tub. unit/0.1 mL intradermal injection solution 0.1 mL Intradermal 1 time For PPD Step 1 GIVE on Day 1 and read results Day 3 0.1 mL 11/16 Inactiv e 2023 74616 28445 1 1 time Intrad ermal False DISCONTINUE as of 11/14/2023: Tubersol 5 tub. unit/0.1 mL intradermal injection solution [Tuberculin PPD] 11/13 Inactiv e 2023 91137 20544 0 Tubersol 5 tub. unit/0.1 mL intradermal injection solution 0.1mL Intradermal 1 time For PPD 2nd Step Give 2nd Step PPD Day 1 and Read results Day 3 (schedule 7 days after 1st READ) 0.1mL 11/25 Active 2023 75387 93880 1 1 time Intrad ermal False Tylenol 325 mg tablet 2 tabs By Mouth Every 4 hours as needed For Pain DO NOT EXCEED 3000 MG APAP/24 Hours 2 tabs 202300 /0000 Active 2023 82865 81947 0 Every 4 hours as needed By Mouth False Tylenol 325 mg tablet 2 tabs By Mouth Every 4 hours as needed For Fever >100 DO NOT EXCEED 3000 MG APAP/24 Hours 2 tabs 202300 /0000 Active 2023 21118 91003 0 Every 4 hours as needed By Mouth False Dulcolax (bisacodyl) 10 mg rectal suppository One Suppository per rectum PRN if Milk of Magnisia ineffective. Give on day 5 of no BM 1 sup 2023 Active 2023 07025 44052 1 Daily as needed Rectal False Fleet Enema 19 gram-7 gram/118 mL Administer per rectum PRN one time if dulcolax suppository not effective. Give on day 6 of no BM 1 202300 0000 Active 2023 27059 91459 6 Daily as needed Rectal False Dextrose 50 % in water (D50W) intravenous solution [generic] Dextrose 50% reyes 20-50 ml (slow push) Intravenous if Glucagon not effective after 15 minutes. CALL 911 for ED Evaluation. 50% reyes 202300 /0000 Active 2023 09868 86815 9 Intrav enous False Glucagon (HCl) Emergency Kit 1 mg solution for injection Administer Glucagon 1 mg Intramuscular if 15 minutes after GLucose Gel is administered Glucose remains less than 70 1 mg 2023 Active 2023 49557 00943 2 Intram uscula r False Glucose Gel 40 % oral gel [Dextrose] PRN If resident is unable to swallow (with or without symptoms) and Glucose results less than 70 give GLucose 40% Gel 1 tube orally - Recheck Glucose 15 minutes after administratio n. 1 tube 2023 Active 2023 74344 18753 8 By Mouth False Lorazepam 0.5 mg tablet [generic] 0.5 mg By Mouth Every 8 hours as needed For Anxiety 0.5 mg 11/18 Inactiv e 2023 63862 82005 0 Every 8 hours as needed By Mouth False Potassium chloride ER 20 mEq tablet,exte nded release [generic] 40 meq By Mouth Once daily For Hypokalemia 40 meq 11/13 Inactiv e 2023 25877 20259 1 Once daily By Mouth False Colesevelam 625 mg tablet [generic] 1250 mg By Mouth Twice daily For TYPE 2 DIABETES MELLITUS WITHOUT COMPLICATIONS 1250 mg 11/19 Inactiv e 2023 55179 07788 1 Twice daily By Mouth E11.9 False Pioglitazon e 15 mg tablet [generic] 15 mg By Mouth Once daily For TYPE 2 DIABETES MELLITUS WITHOUT COMPLICATIONS 15 mg 11/14 Inactiv e 2023 30135 75622 1 Once daily By Mouth E11.9 False Cholecalcif hardeep (vitamin D3) 50 mcg (2,000 unit) tablet [generic] 50 mcg By Mouth Once daily For Supplement 50 mcg 2023 Active 2023 22955 77124 1 Once daily By Mouth False Colchicine 0.6 mg tablet [generic] 0.6 mg By Mouth Twice daily As Needed For Gout 0.6 mg 2023 Active 2023 65909 42030 4 Twice daily By Mouth False Levothyroxi ne 200 mcg tablet [generic] 200 mcg By Mouth Once daily For Hypothyroidis m 200 mcg 202300 0000 Active 2023 78786 42630 0 Once daily By Mouth False Ondansetron 4 mg disintegrat ing tablet [generic] 4 mg By Mouth Every 6 hours as needed For Nausea 4 mg 11/12 Inactiv e 2023 90792 27736 4 Every 6 hours as needed By Mouth False Docusate sodium 100 mg capsule [generic] 100 mg By Mouth Twice daily For Constipation 100 mg 202300 0000 Active 2023 78249 89459 1 Twice daily By Mouth False Oxycodone 5 mg tablet [generic] 5 mg By Mouth Every 6 hours as needed For Pain 5 mg 11/12 Inactiv e 2023 51254 61445 1 Every 6 hours as needed By Mouth False Oxycodone 5 mg tablet [generic] 5 mg By Mouth Every 6 hours as needed For Pain 5 mg 11/18 Inactiv e 2023 59114 54133 1 Every 6 hours as needed By Mouth False Milk of Magnesia 400 mg/5 mL oral suspension 30 ml By Mouth one time per day as needed if no BM x 3 days For Constipation 30 ml 202300 Active 2023 18171 19897 2 By Mouth False Ondansetron 4 mg disintegrat ing tablet [generic] 11/12 Inactiv e 2023 01133 23456 4 Ondansetron 4 mg disintegrat ing tablet [generic] 4 mg By Mouth Every 6 hours as needed For Nausea 4 mg 11/14 Inactiv e 2023 29041 76691 4 Every 6 hours as needed By Mouth False Potassium chloride ER 10 mEq capsule,ext ended release [generic] 40 mEq By Mouth Once daily For hypokalemia 40 mEq 11/17 Inactiv e 2023 97405 22847 1 Once daily By Mouth False Potassium chloride ER 10 mEq capsule,ext ended release [generic] 4 capsules By Mouth At bedtime For hypokalemia 4 capsule s 11/16 Inactiv e 2023 84780 87121 1 At bedtime By Mouth False Flomax 0.4 mg capsule 0.4 mg By Mouth At bedtime For Urinary retention 0.4 mg 11/18 Inactiv e 2023 42468 08628 1 At bedtime By Mouth False STOOL CULTURE Once daily Obtain stool culture, add C. Diff to routine stool culture For Rule out C. Diff 1x 2023 Active 2023 Once daily Other False Butrans 5 mcg/hour transdermal patch 1 patch Transdermal Every 7 Days For Pain 1 patch 11/20 Inactiv e 2023 27728 62214 4 Every week Transd ermal False Pantoprazol e 40 mg tablet,nu yed release [generic] 40 mg By Mouth Twice daily For gerd 40 mg 2023 Active 2023 84768 32526 0 Twice daily By Mouth False Scopolamine 1 mg over 3 days transdermal patch [generic] 1 Transdermal Every 72 hours For nausea 1 11/20 Inactiv e 2023 94947 94975 4 Every 72 hours Transd ermal False Ondansetron 4 mg disintegrat ing tablet [generic] 11/14 Inactiv e 2023 75544 95067 4 Ondansetron 4 mg disintegrat ing tablet [generic] 4 mg By Mouth Every 8 hours For Nausea 4 mg 2023 Active 2023 16708 37000 4 Every 8 hours By Mouth False Miralax 17 gram oral powder packet 8.5 g (1/2 capful) By Mouth Once daily For constipation 8.5 g 11/18 Inactiv e 2023 31402 78789 6 Once daily By Mouth False Pioglitazon e 15 mg tablet [generic] 11/14 Inactiv e 2023 62838 39562 1 E11.9 Pioglitazon e 15 mg tablet [generic] 7.5mg ( half a tab) By Mouth Once daily For TYPE 2 DIABETES MELLITUS WITHOUT COMPLICATIONS 7.5mg 2023 Active 2023 89431 16723 1 Once daily By Mouth E11.9 False Mylanta Coat-Cool 1,200 mg-270 mg-80 mg/10 mL oral suspension 10 ml By Mouth Every 8 hours As Needed For heartburn, indigestion, gas 10 ml 2023 Active 2023 22983 42766 1 Every 8 hours By Mouth False Prochlorper azine maleate 5 mg tablet [generic] 5 mg By Mouth Every 8 hours as needed For Nausea 5 mg 2023 Active 2023 79480 48476 1 Every 8 hours as needed By Mouth False Potassium chloride ER 10 mEq capsule,ext ended release [generic] 10 meq By Mouth 4 times a day For Hypokalemia 10 meq 11/20 Inactiv e 2023 06638 29730 1 4 times a day By Mouth False Lorazepam 0.5 mg tablet [generic] 11/18 Inactiv e 2023 96871 02498 0 Lorazepam 0.5 mg tablet [generic] 0.5 mg By Mouth Every 8 hours as needed For Anxiety 0.5 mg 12/18 Active 2023 56975 97759 0 Every 8 hours as needed By Mouth False Flomax 0.4 mg capsule 11/18 Inactiv e 2023 24471 94956 1 Flomax 0.4 mg capsule 0.4 mg By Mouth Once daily For Urinary retention 0.4 mg 11/19 Inactiv e 2023 19864 50740 1 Once daily By Mouth False Oxycodone 5 mg tablet [generic] 11/18 Inactiv e 2023 36534 47335 1 Oxycodone 5 mg tablet [generic] 5 mg By Mouth Every 6 hours as needed For Back Pain 5 mg 2023 Active 2023 72159 86239 1 Every 6 hours as needed By Mouth False Cipro 250 mg tablet 250 mg By Mouth Twice daily For UTI 250 mg 11/19 Inactiv e 2023 81897 96718 1 Twice daily By Mouth False Senna 8.6 mg tablet 17.2 mg By Mouth Twice daily For Constipation 17.2 mg 2023 Active 2023 81288 21700 1 Twice daily By Mouth False Zyprexa 2.5 mg tablet 2.5 mg By Mouth At bedtime For persistent nausea 2.5 mg 2023 Active 2023 32282 84778 0 At bedtime By Mouth False MAGNESSIUM GLUCONATE 500mg By Mouth Every morning For Supplement 500mg 2023 Active 2023 Every morning By Mouth False Cipro 250 mg tablet 11/19 Inactiv e 2023 21972 87974 1 Cipro 250 mg tablet 250 mg By Mouth Twice daily For UTI 250 mg 11/26 Active 2023 03949 58899 1 Twice daily By Mouth False Flomax 0.4 mg capsule 11/19 Inactiv e 2023 83490 27965 1 Flomax 0.4 mg capsule 0.4 mg By Mouth Once daily For Urinary retention 0.4 mg 11/20 Inactiv e 2023 82001 81882 1 Once daily By Mouth False Motrin IB 200 mg tablet 600 mg By Mouth Every 12 hours As Needed For Pain 600 mg 11/20 Inactiv e 2023 32309 82550 2 Every 12 hours By Mouth False Motrin IB 200 mg tablet 600 mg By Mouth Every 12 hours As Needed For Pain 600 mg 11/20 Inactiv e 2023 16939 27295 2 Every 12 hours By Mouth False Motrin IB 200 mg tablet 600 mg By Mouth Every 12 hours As Needed For Pain 600 mg 11/27 Active 2023 79725 09782 2 Every 12 hours By Mouth False Flomax 0.4 mg capsule 0.4 mg By Mouth Once daily For Urinary retention 0.4 mg 11/21 Inactiv e 2023 75944 29850 1 Once daily By Mouth False Scopolamine 1 mg over 3 days transdermal patch [generic] 1 Transdermal Every 72 hours For nausea 1 11/22 Inactiv e 2023 71553 00623 4 Every 72 hours Transd ermal False Butrans 7.5 mcg/hour transdermal patch 1 patch Transdermal Every 7 Days For Pain 1 patch 202300 0000 Active 2023 41175 83550 4 Every week Transd ermal False Tizanidine 2 mg tablet [generic] 2mg By Mouth At bedtime For Muscle spasms 2mg 202300 0000 Active 2023 62171 28167 0 At bedtime By Mouth False Prednisone 20 mg tablet [generic] 60 mg By Mouth 1 time For Sciatica Pain 60 mg 11/22 Inactiv e 2023 03989 35755 1 1 time By Mouth False Prednisone 20 mg tablet [generic] 40mg By Mouth 1 time For Sciatica Pain 40mg 11/23 Inactiv e 2023 24319 22337 1 1 time By Mouth False Prednisone 20 mg tablet [generic] 20mg By Mouth 1 time For Sciatica 20mg 11/24 Active 2023 63745 20434 1 1 time By Mouth False ACCU CHECK Twice daily AM and PM for 7 Days while on Steroid with sliding scale. For Steroid BID 11/28 Active 2023 Twice daily Other False Humalog KwikPen (U-100) Insulin 100 unit/mL subcutaneou s Subcutaneous T wice daily <70 initiate Hypoglycemic Protocol 70 thru 199 HOLD 150-199 give 0.0 200 thru 250 give 1.0 Unit 251 thru 300 give 2.0 Units 301 thru 350 give 3.0 Units 351 thru 400 give 4.0 Units >400 Call Provider for one time order For Steroid Therapy 11/28 Active 2023 70811 85654 9 Twice daily Subcut aneous False Problems Code Description Start Date End Date Status S32.010D Wedge compression fr acture of first lumbar vertebra, subsequent encounter for fracture with routine healing 11/13/2023 Active 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, lumbar region 11/13/2023 Active Z48.811 Encounter for surgic al aftercare following surgery on the nervous system 11/13/2023 Active M10.9 Gout, unspecified 11/13/2023 Active M46.1 Sacroiliitis, not elsewhere classified 11/13/19 Active M54.9 Dorsalgia, unspecified 11/13/2023 Ac tive M48.062 Spinal stenosis, lum bar region with neurogenic claudication 11/13/2023 Active E66.01 Morbid (severe) obesity due to excess calories 11/13/2023 Active E03.9 Hypothyroidism, unspecified 11/13/2023 00 Active E78.5 Hyperlipidemia, unspecified 11/13/2023 00 Active E11.9 Type 2 diabetes mellitus without complications 11/13/2023 Active I10. Essential (primary) hypertension 11/13/2023 Active K21.9 Gastro-esophageal re flux disease without esophagitis 11/13/2023 Active K59.00 Constipation, unspecified 11/13/2023 Active E66.9 Obesity, unspecified 11/18/2023 Acti ve R33.9 Retention of urine, unspecified 11/18/2023 00/0 Active R11.0 Nausea 11/18/2023 Active Z98.890 Other specified postprocedural states Active E87.6 Hypokalemia 11/18/2023 Active R13.10 Dysphagia, unspecified 11/18/2023 Ac tive VITAL SIGNS Date Time Diastolic blood pressure Systolic blood pressure Body height Body weight Temperature SpO2 Blood Sugar Pulse Respirations 8 20488 5 75.00 mm[Hg] - Sitting 140.00 mm[Hg] - Sitting 65 NI 98.00 Tympanic 95.00 % 102.00 /min 18.00/min 918 75616 9 918 23353 2 75.00 mm[Hg] - Sitting 140.00 mm[Hg] - Sitting 98.00 Tympanic 102.00 /min 18.00/min 918 34805 3 43571 918 76506 1 72.00 mm[Hg] - Sitting 138.00 mm[Hg] - Sitting 98.40 Tympanic 8 38652 4 88.00/ min 18.00/min 919 83408 4 71.00 mm[Hg] - Sitting 115.00 mm[Hg] - Sitting 98.30 Tympanic 97.00 % 86.00/ min 16.00/min 67784 919 78702 0 71.00 mm[Hg] - Sitting 115.00 mm[Hg] - Sitting 98.30 Tympanic 86.00/ min 16.00/min 63001 919 24451 7 71.00 mm[Hg] - Sitting 115.00 mm[Hg] - Sitting 98.30 Tympanic 86.00/ min 16.00/min 55329 920 56816 6 72.00 mm[Hg] - Sitting 112.00 mm[Hg] - Sitting 98.10 Tympanic 82.00/ min 18.00/min 920 49448 0 75.00 mm[Hg] - Sitting 130.00 mm[Hg] - Sitting 98.40 Forehead Scan 93.00 % 88.00/ min 18.00/min 64278 920 74961 2 75.00 mm[Hg] - Lying Down 130.00 mm[Hg] - Lying Down 98.40 Tympanic 88.00/ min 18.00/min 61606 920 54105 5 75.00 mm[Hg] - Lying Down 130.00 mm[Hg] - Lying Down 98.40 Tympanic 88.00/ min 18.00/min 920 76228 6 199.00 NI 920 89904 3 75.00 mm[Hg] - Sitting 130.00 mm[Hg] - Sitting 98.40 Tympanic 88.00/ min 18.00/min 20903 921 90901 1 71.00 mm[Hg] - Lying Down 119.00 mm[Hg] - Lying Down 98.40 Forehead Scan 96.00 % 83.00/ min 16.00/min 04257 922 98497 6 71.00 mm[Hg] - Lying Down 128.00 mm[Hg] - Lying Down 98.30 Forehead Scan 94.00 % 84.00/ min 18.00/min 87292 923 07808 4 63.00 mm[Hg] - Sitting 105.00 mm[Hg] - Sitting 98.20 Tympanic 93.00 % 93.00/ min 18.00/min 00096 924 84481 8 66.00 mm[Hg] - Sitting 104.00 mm[Hg] - Sitting 98.20 Tympanic 98.00 % 84.00/ min 16.00/min 40185 925 51940 2 131.00 mg/dL 42807 925 76463 6 138.00 mg/dL 25068 926 52735 1 199.00 NI 24595 927 66814 7 98.40 Tympanic 25732 927 56555 0 78.00 mm[Hg] - Sitting 124.00 mm[Hg] - Sitting 98.30 Forehead Scan 95.00 % 83.00/ min 16.00/min 29369 927 85293 7 98.10 Tympanic 68024 928 49760 9 60.00 mm[Hg] - Sitting 99.00 mm[Hg] - Sitting 98.20 Tympanic 91.00 % 64.00/ min 16.00/min 69066 928 67595 0 98.40 Tympanic 71568 928 39665 0 235.00 mg/dL 17552 928 57755 2 98.30 Tympanic 41838 929 27700 0 159.00 mg/dL 85791 929 10731 1 98.10 Tympanic 33374 929 06744 5 97.90 Tympanic 37370 929 68249 1 72.00 mm[Hg] - Sitting 101.00 mm[Hg] - Sitting 97.90 Tympanic 92.00 % 65.00/ min 16.00/min
--- OUTSIDE RECORDS SUMMARY | 2023-12-13 23:53 | External Medical Summary | Summary of Care ---
Author Name Unknown Organization [facility] Address [address] [facility] [address] Phone [phone] Care Team Providers Care Truck Loader And Unloader Name Role Phone Jadyn Johnson DO Primary Care Provider [phone] Reason for Visit * Reason Onset Date Comments Advice 11/27/2023 Encounter Details Date Type Department Care Team (Late st Contact Info) Description 11/27/2023 Telephone Family Practice [facility] [place] [address] [facility] [place] [address] [facility] [address] [facility] [address] Advice Allergies Active Allergy Reactions Criticality [...] to procedure 4 Capsule 1 1 Active Acetaminophen 500 MG Oral Tablet (Tylenol Extra Strength) Take 1 Tablet by mouth every 6 hours as needed. Active Loperamide HCl 2 MG Oral Capsule (Imodium A-D) Take 1 Capsule by mouth 4 times a day as needed for Diarrhea. Active Levothyroxine Sodium 200 MCG Oral Tablet (Synthroid)Indicat ions:Acquired hypothyroidism Take 1 Tablet by mouth in the morning. (at least 30 min prior to breakfast or other meds). 90 Tablet 3 03/01/202 4 Active Multi Vitamin Oral Tablet Take 1 [...] mouth in the morning. 90 Tablet 3 4 Active VITAMIN D 1000 UNITS PO CAPS Take 2 Capsules by mouth every evening. 11/28/19 24 Discontinued Probiotic Acidophilus Oral Capsule Take 1 Tablet by mouth every evening. 11/29/19 24 Discontinued(End of Procedure) hydroCHLOROthiazid e 25 MG Oral Tablet (Hydrodiuril)Indic ations:HTN, goal below 140/90 Take 1 Tablet by mouth in the morning. 90 Tablet 3 4 11/28/19 24 Discontinued(Pat ient preference/disco ntinuation) Colesevelam HCl 625 MG Oral Tablet (Welchol)Indicatio ns:Diarrhea, unspecified type TAKE TWO TABLETS BY MOUTH TWICE A DAY WITH MORNING AND EVENING MEALS 120 Tablet 5 4 11/29/19 24 Discontinued(End of Procedure) predniSONE 10 MG Oral Tablet (Deltasone)Indicat ions:Acute right-sided low back pain without sciatica Take 5 tabs for 2 days, 4 tabs for 2 days, 3 tabs for 2 days, 2 tabs for 2 days 1 tab for 2 days 30 Tablet 4 11/28/19 24 Discontinued(Pat ient preference/disco ntinuation) Naproxen 500 MG Oral Tablet (Naprosyn) Take 1 Tablet by mouth 2 times a day with morning and evening meals. 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 Asking for an 18 inch manual wheelchair and a BSC She would like it sent to [facility] in [place]. Fax is [phone] * Telephone Encounter - Amanda Amaya OSA - 11/28/2023 10:30 AM EDT Reason for patient's call: calling in to speak to nurse Caller was transferred to Vaishnavi at the nurse line. * Telephone Encounter - Janeth Goodman OSA - 11/27/2023 4:26 PM EDT Please give a callback for update. Thank you documented in this encounter Plan of Treatment Upcoming Encounters Date Type Department Care Team (Latest Contact Info) Description 12/25/2023 1:45 PM EDT Hospital Encounter OR [facility], Operating Room [facility] [address] [place] [id number] Ozzy Griggs DO [address] [place] [id number] 12/25/2023 1:45 PM EDT - 12/25/2023 2:10 PM EDT Surgery OR [facility], Operating Room [facility] [address] [place] [id number] Ozzy Griggs DO [address] [place] [phone] INJECTION SACROILIAC JOINT 01/06/2024 4:20 PM EST Office Visit [facility] [address] [address] [place] [address] Jadyn Johnson DO [address] [place] [address] Scheduled Procedures Name Priority Associated Diagnoses Date/Ti [...] as of this encounter Visit Diagnoses Diagnosis Neuroforaminal stenosis of lumbar spine- Primary Compression fracture of L1 vertebra with routine healing, subsequent encounter Inflammation of sacroiliac joint (HCC) Sacroiliitis, not elsewhere classified documented in this encounter Care Teams Truck Loader And Unloader Relationship Specialty Start Date End Date Jadyn Johnson DO [address] [facility] [place] [address] PCP - General Family Medicine 02/10/19 documented as of this encounter
--- OUTSIDE RECORDS SUMMARY | 2023-12-13 23:53 | External Medical Summary | Continuity Of Care Document ---
Author Name Unknown Address [address] [place] [address] Organization [facility] () Care Team Providers Care Mobile Ui Developer Name Role Phone DO Parson Amy Primary Care Provider [phone] Allergies Allergy Reaction Start Date End Date [...] 3 0.1 mL 11/13 Inactiv e 2023 27700 11193 0 1 time Intrad ermal False Tubersol 5 tub. unit/0.1 mL intradermal injection solution [Tuberculin PPD] 0.1mL Intradermal 1 time For PPD 2nd Step Give 2nd Step PPD Day 1 and Read results Day 3 (schedule 7 days after 1st READ) 0.1mL 11/13 Inactiv e 2023 32535 21050 0 1 time Intrad ermal False DISCONTINUE as of 11/14/2023: Tubersol 5 tub. unit/0.1 mL intradermal injection solution [Tuberculin PPD] 11/13 Inactiv e 2023 59645 25009 0 Tubersol 5 tub. unit/0.1 mL intradermal injection solution 0.1 mL Intradermal 1 time For PPD Step 1 GIVE on Day 1 and read results Day 3 0.1 mL 11/16 Inactiv e 2023 00848 59402 1 1 time Intrad ermal False DISCONTINUE as of 11/14/2023: Tubersol 5 tub. unit/0.1 mL intradermal injection solution [Tuberculin PPD] 11/13 Inactiv e 2023 35051 04067 0 Tubersol 5 tub. unit/0.1 mL intradermal injection solution 0.1mL Intradermal 1 time For PPD 2nd Step Give 2nd Step PPD Day 1 and Read results Day 3 (schedule 7 days after 1st READ) 0.1mL 11/25 Active 2023 54557 93133 1 1 time Intrad ermal False Tylenol 325 mg tablet 2 tabs By Mouth Every 4 hours as needed For Pain DO NOT EXCEED 3000 MG APAP/24 Hours 2 tabs 202300 /0000 Active 2023 11466 83166 0 Every 4 hours as needed By Mouth False Tylenol 325 mg tablet 2 tabs By Mouth Every 4 hours as needed For Fever >100 DO NOT EXCEED 3000 MG APAP/24 Hours 2 tabs 202300 /0000 Active 2023 79028 29738 0 Every 4 hours as needed By Mouth False Dulcolax (bisacodyl) 10 mg rectal suppository One Suppository per rectum PRN if Milk of Magnisia ineffective. Give on day 5 of no BM 1 sup 2023 Active 2023 12668 89282 1 Daily as needed Rectal False Fleet Enema 19 gram-7 gram/118 mL Administer per rectum PRN one time if dulcolax suppository not effective. Give on day 6 of no BM 1 202300 0000 Active 2023 87687 24493 6 Daily as needed Rectal False Dextrose 50 % in water (D50W) intravenous solution [generic] Dextrose 50% reyes 20-50 ml (slow push) Intravenous if Glucagon not effective after 15 minutes. CALL 911 for ED Evaluation. 50% reyes 202300 /0000 Active 2023 59949 40175 9 Intrav enous False Glucagon (HCl) Emergency Kit 1 mg solution for injection Administer Glucagon 1 mg Intramuscular if 15 minutes after GLucose Gel is administered Glucose remains less than 70 1 mg 2023 Active 2023 12508 94187 2 Intram uscula r False Glucose Gel 40 % oral gel [Dextrose] PRN If resident is unable to swallow (with or without symptoms) and Glucose results less than 70 give GLucose 40% Gel 1 tube orally - Recheck Glucose 15 minutes after administratio n. 1 tube 2023 Active 2023 41165 33163 8 By Mouth False Lorazepam 0.5 mg tablet [generic] 0.5 mg By Mouth Every 8 hours as needed For Anxiety 0.5 mg 11/18 Inactiv e 2023 45584 54732 0 Every 8 hours as needed By Mouth False Potassium chloride ER 20 mEq tablet,exte nded release [generic] 40 meq By Mouth Once daily For Hypokalemia 40 meq 11/13 Inactiv e 2023 60341 21070 1 Once daily By Mouth False Colesevelam 625 mg tablet [generic] 1250 mg By Mouth Twice daily For TYPE 2 DIABETES MELLITUS WITHOUT COMPLICATIONS 1250 mg 11/19 Inactiv e 2023 77746 99380 1 Twice daily By Mouth E11.9 False Pioglitazon e 15 mg tablet [generic] 15 mg By Mouth Once daily For TYPE 2 DIABETES MELLITUS WITHOUT COMPLICATIONS 15 mg 11/14 Inactiv e 2023 24436 23395 1 Once daily By Mouth E11.9 False Cholecalcif hardeep (vitamin D3) 50 mcg (2,000 unit) tablet [generic] 50 mcg By Mouth Once daily For Supplement 50 mcg 2023 Active 2023 02761 03604 1 Once daily By Mouth False Colchicine 0.6 mg tablet [generic] 0.6 mg By Mouth Twice daily As Needed For Gout 0.6 mg 2023 Active 2023 51789 14445 4 Twice daily By Mouth False Levothyroxi ne 200 mcg tablet [generic] 200 mcg By Mouth Once daily For Hypothyroidis m 200 mcg 202300 0000 Active 2023 60360 48871 0 Once daily By Mouth False Ondansetron 4 mg disintegrat ing tablet [generic] 4 mg By Mouth Every 6 hours as needed For Nausea 4 mg 11/12 Inactiv e 2023 68091 66749 4 Every 6 hours as needed By Mouth False Docusate sodium 100 mg capsule [generic] 100 mg By Mouth Twice daily For Constipation 100 mg 202300 0000 Active 2023 06936 22509 1 Twice daily By Mouth False Oxycodone 5 mg tablet [generic] 5 mg By Mouth Every 6 hours as needed For Pain 5 mg 11/12 Inactiv e 2023 92388 13246 1 Every 6 hours as needed By Mouth False Oxycodone 5 mg tablet [generic] 5 mg By Mouth Every 6 hours as needed For Pain 5 mg 11/18 Inactiv e 2023 53168 45068 1 Every 6 hours as needed By Mouth False Milk of Magnesia 400 mg/5 mL oral suspension 30 ml By Mouth one time per day as needed if no BM x 3 days For Constipation 30 ml 202300 Active 2023 25727 95508 2 By Mouth False Ondansetron 4 mg disintegrat ing tablet [generic] 11/12 Inactiv e 2023 30356 60798 4 Ondansetron 4 mg disintegrat ing tablet [generic] 4 mg By Mouth Every 6 hours as needed For Nausea 4 mg 11/14 Inactiv e 2023 39312 53328 4 Every 6 hours as needed By Mouth False Potassium chloride ER 10 mEq capsule,ext ended release [generic] 40 mEq By Mouth Once daily For hypokalemia 40 mEq 11/17 Inactiv e 2023 70701 10496 1 Once daily By Mouth False Potassium chloride ER 10 mEq capsule,ext ended release [generic] 4 capsules By Mouth At bedtime For hypokalemia 4 capsule s 11/16 Inactiv e 2023 42767 31587 1 At bedtime By Mouth False Flomax 0.4 mg capsule 0.4 mg By Mouth At bedtime For Urinary retention 0.4 mg 11/18 Inactiv e 2023 13268 58142 1 At bedtime By Mouth False STOOL CULTURE Once daily Obtain stool culture, add C. Diff to routine stool culture For Rule out C. Diff 1x 2023 Active 2023 Once daily Other False Butrans 5 mcg/hour transdermal patch 1 patch Transdermal Every 7 Days For Pain 1 patch 11/20 Inactiv e 2023 65448 41432 4 Every week Transd ermal False Pantoprazol e 40 mg tablet,nu yed release [generic] 40 mg By Mouth Twice daily For gerd 40 mg 2023 Active 2023 74206 24524 0 Twice daily By Mouth False Scopolamine 1 mg over 3 days transdermal patch [generic] 1 Transdermal Every 72 hours For nausea 1 11/20 Inactiv e 2023 27679 52676 4 Every 72 hours Transd ermal False Ondansetron 4 mg disintegrat ing tablet [generic] 11/14 Inactiv e 2023 12757 38004 4 Ondansetron 4 mg disintegrat ing tablet [generic] 4 mg By Mouth Every 8 hours For Nausea 4 mg 2023 Active 2023 09756 41292 4 Every 8 hours By Mouth False Miralax 17 gram oral powder packet 8.5 g (1/2 capful) By Mouth Once daily For constipation 8.5 g 11/18 Inactiv e 2023 18327 33497 6 Once daily By Mouth False Pioglitazon e 15 mg tablet [generic] 11/14 Inactiv e 2023 06296 32411 1 E11.9 Pioglitazon e 15 mg tablet [generic] 7.5mg ( half a tab) By Mouth Once daily For TYPE 2 DIABETES MELLITUS WITHOUT COMPLICATIONS 7.5mg 2023 Active 2023 70678 41835 1 Once daily By Mouth E11.9 False Mylanta Coat-Cool 1,200 mg-270 mg-80 mg/10 mL oral suspension 10 ml By Mouth Every 8 hours As Needed For heartburn, indigestion, gas 10 ml 2023 Active 2023 22545 08080 1 Every 8 hours By Mouth False Prochlorper azine maleate 5 mg tablet [generic] 5 mg By Mouth Every 8 hours as needed For Nausea 5 mg 2023 Active 2023 06959 31353 1 Every 8 hours as needed By Mouth False Potassium chloride ER 10 mEq capsule,ext ended release [generic] 10 meq By Mouth 4 times a day For Hypokalemia 10 meq 11/20 Inactiv e 2023 59466 49408 1 4 times a day By Mouth False Lorazepam 0.5 mg tablet [generic] 11/18 Inactiv e 2023 15312 68065 0 Lorazepam 0.5 mg tablet [generic] 0.5 mg By Mouth Every 8 hours as needed For Anxiety 0.5 mg 12/18 Active 2023 46504 36496 0 Every 8 hours as needed By Mouth False Flomax 0.4 mg capsule 11/18 Inactiv e 2023 84421 30803 1 Flomax 0.4 mg capsule 0.4 mg By Mouth Once daily For Urinary retention 0.4 mg 11/19 Inactiv e 2023 16588 44013 1 Once daily By Mouth False Oxycodone 5 mg tablet [generic] 11/18 Inactiv e 2023 48831 57380 1 Oxycodone 5 mg tablet [generic] 5 mg By Mouth Every 6 hours as needed For Back Pain 5 mg 2023 Active 2023 40396 58087 1 Every 6 hours as needed By Mouth False Cipro 250 mg tablet 250 mg By Mouth Twice daily For UTI 250 mg 11/19 Inactiv e 2023 62089 74862 1 Twice daily By Mouth False Senna 8.6 mg tablet 17.2 mg By Mouth Twice daily For Constipation 17.2 mg 2023 Active 2023 39312 69327 1 Twice daily By Mouth False Zyprexa 2.5 mg tablet 2.5 mg By Mouth At bedtime For persistent nausea 2.5 mg 2023 Active 2023 31378 40305 0 At bedtime By Mouth False MAGNESSIUM GLUCONATE 500mg By Mouth Every morning For Supplement 500mg 2023 Active 2023 Every morning By Mouth False Cipro 250 mg tablet 11/19 Inactiv e 2023 15916 97415 1 Cipro 250 mg tablet 250 mg By Mouth Twice daily For UTI 250 mg 11/26 Active 2023 40479 42010 1 Twice daily By Mouth False Flomax 0.4 mg capsule 11/19 Inactiv e 2023 49416 74592 1 Flomax 0.4 mg capsule 0.4 mg By Mouth Once daily For Urinary retention 0.4 mg 11/20 Inactiv e 2023 19524 71445 1 Once daily By Mouth False Motrin IB 200 mg tablet 600 mg By Mouth Every 12 hours As Needed For Pain 600 mg 11/20 Inactiv e 2023 43315 07911 2 Every 12 hours By Mouth False Motrin IB 200 mg tablet 600 mg By Mouth Every 12 hours As Needed For Pain 600 mg 11/20 Inactiv e 2023 32281 90045 2 Every 12 hours By Mouth False Motrin IB 200 mg tablet 600 mg By Mouth Every 12 hours As Needed For Pain 600 mg 11/27 Active 2023 56300 04680 2 Every 12 hours By Mouth False Flomax 0.4 mg capsule 0.4 mg By Mouth Once daily For Urinary retention 0.4 mg 11/21 Inactiv e 2023 70025 71320 1 Once daily By Mouth False Scopolamine 1 mg over 3 days transdermal patch [generic] 1 Transdermal Every 72 hours For nausea 1 11/22 Inactiv e 2023 44420 76131 4 Every 72 hours Transd ermal False Butrans 7.5 mcg/hour transdermal patch 1 patch Transdermal Every 7 Days For Pain 1 patch 202300 0000 Active 2023 52761 80462 4 Every week Transd ermal False Tizanidine 2 mg tablet [generic] 2mg By Mouth At bedtime For Muscle spasms 2mg 202300 /0000 Active 2023 60710 82040 0 At bedtime By Mouth False Prednisone 20 mg tablet [generic] 60 mg By Mouth 1 time For Sciatica Pain 60 mg 11/22 Inactiv e 2023 59538 27034 1 1 time By Mouth False Prednisone 20 mg tablet [generic] 40mg By Mouth 1 time For Sciatica Pain 40mg 11/23 Inactiv e 2023 53661 34959 1 1 time By Mouth False Prednisone 20 mg tablet [generic] 20mg By Mouth 1 time For Sciatica 20mg 11/24 Inactiv e 2023 32230 62683 1 1 time By Mouth False ACCU [...] order For Steroid Therapy 11/28 Active 2023 75730 86016 9 Twice daily Subcut aneous False Flomax 0.4 mg capsule 1 capsule By Mouth At bedtime For urinary retnetion 1 capsule 12/24 Active 2023 24357 25639 1 At bedtime By Mouth False Cholecalcif hardeep (vitamin D3) 50 mcg (2,000 unit) tablet [generic] 50 mcg By Mouth Once daily For Supplement 50 mcg 2023 Active 2023 95444 24966 1 Once daily By Mouth False Colchicine 0.6 mg tablet [generic] 0.6 mg By Mouth Twice daily As Needed For Gout 0.6 mg 2023 Active 2023 78048 61328 4 Twice daily By Mouth False Levothyroxi ne 200 mcg tablet [generic] 200 mcg By Mouth Once daily For Hypothyroidis m 200 mcg 2023 Active 2023 45129 46358 0 Once daily By Mouth False Docusate sodium 100 mg capsule [generic] 100 mg By Mouth Twice daily For Constipation 100 mg 2023 Active 2023 88662 19275 1 Twice daily By Mouth False Pantoprazol e 40 mg tablet,nu yed release [generic] 40 mg By Mouth Twice daily For gerd 40 mg 2023 Active 2023 93842 39998 0 Twice daily By Mouth False Ondansetron 4 mg disintegrat ing tablet [generic] 4 mg By Mouth Every 8 hours For Nausea 4 mg 2023 Active 2023 41505 97382 4 Every 8 hours By Mouth False Pioglitazon e 15 mg tablet [generic] 7.5mg ( half a tab) By Mouth Once daily For TYPE 2 DIABETES MELLITUS WITHOUT COMPLICATIONS 7.5mg 2023 Active 2023 35990 73980 1 Once daily By Mouth E11.9 False Mylanta Coat-Cool 1,200 mg-270 mg-80 mg/10 mL oral suspension 10 ml By Mouth Every 8 hours As Needed For heartburn, indigestion, gas 10 ml 2023 Active 20233 25205 1 Every 8 hours By Mouth False Prochlorper azine maleate 5 mg tablet [generic] 5 mg By Mouth Every 8 hours as needed For Nausea 5 mg 2023 Active 2023 83595 89093 1 Every 8 hours as needed By Mouth False Lorazepam 0.5 mg tablet [generic] 0.5 mg By Mouth Every 8 hours as needed For Anxiety 0.5 mg 2023 Active 2023 72654 10215 0 Every 8 hours as needed By Mouth False Oxycodone 5 mg tablet [generic] 5 mg By Mouth Every 6 hours as needed For Back Pain 5 mg 2023 Active 2023 35342 86820 1 Every 6 hours as needed By Mouth False Senna 8.6 mg tablet 17.2 mg By Mouth Twice daily For Constipation 17.2 mg 2023 Active 2023 06152 86656 1 Twice daily By Mouth False Zyprexa 2.5 mg tablet 2.5 mg By Mouth At bedtime For persistent nausea 2.5 mg 2023 Active 2023 29816 95199 0 At bedtime By Mouth False MAGNESSIUM GLUCONATE 500mg By Mouth Every morning For Supplement 500mg 2023 Active 2023 Every morning By Mouth False Cipro 250 mg tablet 250 mg By Mouth Twice daily For UTI 250 mg 2023 Active 2023 25219 40881 1 Twice daily By Mouth False Motrin IB 200 mg tablet 600 mg By Mouth Every 12 hours As Needed For Pain 600 mg 2023 Active 2023 34359 81094 2 Every 12 hours By Mouth False Butrans 7.5 mcg/hour transdermal patch 1 patch Transdermal Every 7 Days For Pain 1 patch 2023 Active 2023 92119 45907 4 Every week Transd ermal False Tizanidine 2 mg tablet [generic] 2mg By Mouth At bedtime For Muscle spasms 2mg 2023 Active 2023 50250 28145 0 At bedtime By Mouth False Humalog KwikPen (U-100) Insulin 100 unit/mL subcutaneou s Subcutaneous T wice daily <70 initiate Hypoglycemic Protocol 70 thru 199 HOLD 150-199 give 0.0 200 thru 250 give 1.0 Unit 251 thru 300 give 2.0 Units 301 thru 350 give 3.0 Units 351 thru 400 give 4.0 Units >400 Call Provider for one time order For Steroid Therapy 2023 Active 2023 03430 66855 9 Twice daily Subcut aneous False Problems [...] calories 11/13/2023 Active E03.9 Hypothyroidism, unspecified 11/13/2023 Active E78.5 Hyperlipidemia, unspecified 11/13/2023 Active E11.9 Type 2 diabetes mellitus without [...] weight Temperature SpO2 Blood Sugar Pulse Respirations 918 26396 5 75.00 mm[Hg] - Sitting 140.00 mm[Hg] - Sitting 65 NI 98.00 Tympanic 95.00 % 102.00 /min 18.00/min 918 33683 9 37479 918 48980 2 75.00 mm[Hg] - Sitting 140.00 mm[Hg] - Sitting 98.00 Tympanic 102.00 /min 18.00/min 90049 918 82410 3 04468 918 07285 1 72.00 mm[Hg] - Sitting 138.00 mm[Hg] - Sitting 98.40 Tympanic 22898 918 84428 4 88.00/ min 18.00/min 80462 919 02859 4 71.00 mm[Hg] - Sitting 115.00 mm[Hg] - Sitting 98.30 Tympanic 97.00 % 86.00/ min 16.00/min 03220 919 59525 0 71.00 mm[Hg] - Sitting 115.00 mm[Hg] - Sitting 98.30 Tympanic 86.00/ min 16.00/min 00506 919 21981 7 71.00 mm[Hg] - Sitting 115.00 mm[Hg] - Sitting 98.30 Tympanic 86.00/ min 16.00/min 74559 920 59634 6 72.00 mm[Hg] - Sitting 112.00 mm[Hg] - Sitting 98.10 Tympanic 82.00/ min 18.00/min 22818 920 37709 0 75.00 mm[Hg] - Sitting 130.00 mm[Hg] - Sitting 98.40 Forehead Scan 93.00 % 88.00/ min 18.00/min 31147 920 24886 2 75.00 mm[Hg] - Lying Down 130.00 mm[Hg] - Lying Down 98.40 Tympanic 88.00/ min 18.00/min 23825 920 39740 5 75.00 mm[Hg] - Lying Down 130.00 mm[Hg] - Lying Down 98.40 Tympanic 88.00/ min 18.00/min 79229 920 57492 6 199.00 [place] [address] 920 13097 3 75.00 mm[Hg] - Sitting 130.00 mm[Hg] - Sitting 98.40 Tympanic 88.00/ min 18.00/min 69662 921 46738 1 71.00 mm[Hg] - Lying Down 119.00 mm[Hg] - Lying Down 98.40 Forehead Scan 96.00 % 83.00/ min 16.00/min 21526 922 74764 6 71.00 mm[Hg] - Lying Down 128.00 mm[Hg] - Lying Down 98.30 Forehead Scan 94.00 % 84.00/ min 18.00/min 10199 923 77858 4 63.00 mm[Hg] - Sitting 105.00 mm[Hg] - Sitting 98.20 Tympanic 93.00 % 93.00/ min 18.00/min 34524 924 88968 8 66.00 mm[Hg] - Sitting 104.00 mm[Hg] - Sitting 98.20 Tympanic 98.00 % 84.00/ min 16.00/min 14175 925 05079 2 131.00 mg/dL 15044 925 95999 6 138.00 mg/dL 06192 926 79809 1 199.00 NI 46298 927 83435 7 98.40 Tympanic 31220 927 11321 0 78.00 mm[Hg] - Sitting 124.00 mm[Hg] - Sitting 98.30 Forehead Scan 95.00 % 83.00/ min 16.00/min 12131 927 60329 7 98.10 Tympanic 70453 928 22644 9 60.00 mm[Hg] - Sitting 99.00 mm[Hg] - Sitting 98.20 Tympanic 91.00 % 64.00/ min 16.00/min 47406 928 26956 0 98.40 Tympanic 81548 928 70464 0 235.00 mg/dL 33678 928 33895 2 98.30 Tympanic 61552 929 67951 0 159.00 mg/dL 69432 929 99480 1 98.10 Tympanic 36128 929 58984 5 97.90 Tympanic 13411 929 82753 1 72.00 mm[Hg] - Sitting 101.00 mm[Hg] - Sitting 97.90 Tympanic 92.00 % 65.00/ min 16.00/min
--- OUTSIDE RECORDS SUMMARY | 2023-12-13 23:53 | External Medical Summary | Continuity Of Care Document ---
Author Name Unknown Address [address] [place] [address] [facility] [place] () Care Team Providers Care Materials Scheduler Name Role Phone DO Parson Amy Primary Care Provider [phone] Allergies Allergy Reaction Start Date End Date [...] 3 0.1 mL 11/13 Inactiv e 2023 26787 68077 0 1 time Intrad ermal False Tubersol 5 tub. unit/0.1 mL intradermal injection solution [Tuberculin PPD] 0.1mL Intradermal 1 time For PPD 2nd Step Give 2nd Step PPD Day 1 and Read results Day 3 (schedule 7 days after 1st READ) 0.1mL 11/13 Inactiv e 2023 69077 38935 0 1 time Intrad ermal False DISCONTINUE as of 11/14/2023: Tubersol 5 tub. unit/0.1 mL intradermal injection solution [Tuberculin PPD] 11/13 Inactiv e 2023 96378 85685 0 Tubersol 5 tub. unit/0.1 mL intradermal injection solution 0.1 mL Intradermal 1 time For PPD Step 1 GIVE on Day 1 and read results Day 3 0.1 mL 11/16 Inactiv e 2023 04186 90461 1 1 time Intrad ermal False DISCONTINUE as of 11/14/2023: Tubersol 5 tub. unit/0.1 mL intradermal injection solution [Tuberculin PPD] 11/13 Inactiv e 2023 62090 09518 0 Tubersol 5 tub. unit/0.1 mL intradermal injection solution 0.1mL Intradermal 1 time For PPD 2nd Step Give 2nd Step PPD Day 1 and Read results Day 3 (schedule 7 days after 1st READ) 0.1mL 11/25 Active 2023 99891 08583 1 1 time Intrad ermal False Tylenol 325 mg tablet 2 tabs By Mouth Every 4 hours as needed For Pain DO NOT EXCEED 3000 MG APAP/24 Hours 2 tabs 202300 /0000 Active 2023 72472 75561 0 Every 4 hours as needed By Mouth False Tylenol 325 mg tablet 2 tabs By Mouth Every 4 hours as needed For Fever >100 DO NOT EXCEED 3000 MG APAP/24 Hours 2 tabs 202300 /0000 Active 2023 10476 93202 0 Every 4 hours as needed By Mouth False Dulcolax (bisacodyl) 10 mg rectal suppository One Suppository per rectum PRN if Milk of Magnisia ineffective. Give on day 5 of no BM 1 sup 2023 Active 2023 39605 45873 1 Daily as needed Rectal False Fleet Enema 19 gram-7 gram/118 mL Administer per rectum PRN one time if dulcolax suppository not effective. Give on day 6 of no BM 1 202300 0000 Active 2023 87739 69033 6 Daily as needed Rectal False Dextrose 50 % in water (D50W) intravenous solution [generic] Dextrose 50% reyes 20-50 ml (slow push) Intravenous if Glucagon not effective after 15 minutes. CALL 911 for ED Evaluation. 50% reyes 202300 /0000 Active 2023 50725 73511 9 Intrav enous False Glucagon (HCl) Emergency Kit 1 mg solution for injection Administer Glucagon 1 mg Intramuscular if 15 minutes after GLucose Gel is administered Glucose remains less than 70 1 mg 2023 Active 2023 39026 71028 2 Intram uscula r False Glucose Gel 40 % oral gel [Dextrose] PRN If resident is unable to swallow (with or without symptoms) and Glucose results less than 70 give GLucose 40% Gel 1 tube orally - Recheck Glucose 15 minutes after administratio n. 1 tube 2023 Active 2023 08606 92882 8 By Mouth False Lorazepam 0.5 mg tablet [generic] 0.5 mg By Mouth Every 8 hours as needed For Anxiety 0.5 mg 11/18 Inactiv e 2023 88508 75191 0 Every 8 hours as needed By Mouth False Potassium chloride ER 20 mEq tablet,exte nded release [generic] 40 meq By Mouth Once daily For Hypokalemia 40 meq 11/13 Inactiv e 2023 76346 15557 1 Once daily By Mouth False Colesevelam 625 mg tablet [generic] 1250 mg By Mouth Twice daily For TYPE 2 DIABETES MELLITUS WITHOUT COMPLICATIONS 1250 mg 11/19 Inactiv e 2023 06659 05439 1 Twice daily By Mouth E11.9 False Pioglitazon e 15 mg tablet [generic] 15 mg By Mouth Once daily For TYPE 2 DIABETES MELLITUS WITHOUT COMPLICATIONS 15 mg 11/14 Inactiv e 2023 22373 91193 1 Once daily By Mouth E11.9 False Cholecalcif hardeep (vitamin D3) 50 mcg (2,000 unit) tablet [generic] 50 mcg By Mouth Once daily For Supplement 50 mcg 2023 Active 2023 78259 10583 1 Once daily By Mouth False Colchicine 0.6 mg tablet [generic] 0.6 mg By Mouth Twice daily As Needed For Gout 0.6 mg 2023 Active 2023 56195 23911 4 Twice daily By Mouth False Levothyroxi ne 200 mcg tablet [generic] 200 mcg By Mouth Once daily For Hypothyroidis m 200 mcg 202300 0000 Active 2023 59564 46693 0 Once daily By Mouth False Ondansetron 4 mg disintegrat ing tablet [generic] 4 mg By Mouth Every 6 hours as needed For Nausea 4 mg 11/12 Inactiv e 2023 80983 51253 4 Every 6 hours as needed By Mouth False Docusate sodium 100 mg capsule [generic] 100 mg By Mouth Twice daily For Constipation 100 mg 202300 0000 Active 2023 21921 15186 1 Twice daily By Mouth False Oxycodone 5 mg tablet [generic] 5 mg By Mouth Every 6 hours as needed For Pain 5 mg 11/12 Inactiv e 2023 80149 48305 1 Every 6 hours as needed By Mouth False Oxycodone 5 mg tablet [generic] 5 mg By Mouth Every 6 hours as needed For Pain 5 mg 11/18 Inactiv e 2023 73294 74216 1 Every 6 hours as needed By Mouth False Milk of Magnesia 400 mg/5 mL oral suspension 30 ml By Mouth one time per day as needed if no BM x 3 days For Constipation 30 ml 202300 Active 2023 86948 81257 2 By Mouth False Ondansetron 4 mg disintegrat ing tablet [generic] 11/12 Inactiv e 2023 04078 24272 4 Ondansetron 4 mg disintegrat ing tablet [generic] 4 mg By Mouth Every 6 hours as needed For Nausea 4 mg 11/14 Inactiv e 2023 01781 96404 4 Every 6 hours as needed By Mouth False Potassium chloride ER 10 mEq capsule,ext ended release [generic] 40 mEq By Mouth Once daily For hypokalemia 40 mEq 11/17 Inactiv e 2023 63422 87983 1 Once daily By Mouth False Potassium chloride ER 10 mEq capsule,ext ended release [generic] 4 capsules By Mouth At bedtime For hypokalemia 4 capsule s 11/16 Inactiv e 2023 70293 01908 1 At bedtime By Mouth False Flomax 0.4 mg capsule 0.4 mg By Mouth At bedtime For Urinary retention 0.4 mg 11/18 Inactiv e 2023 30861 58779 1 At bedtime By Mouth False STOOL CULTURE Once daily Obtain stool culture, add C. Diff to routine stool culture For Rule out C. Diff 1x 2023 Active 2023 Once daily Other False Butrans 5 mcg/hour transdermal patch 1 patch Transdermal Every 7 Days For Pain 1 patch 11/20 Inactiv e 2023 66995 70308 4 Every week Transd ermal False Pantoprazol e 40 mg tablet,nu yed release [generic] 40 mg By Mouth Twice daily For gerd 40 mg 2023 Active 2023 68007 63817 0 Twice daily By Mouth False Scopolamine 1 mg over 3 days transdermal patch [generic] 1 Transdermal Every 72 hours For nausea 1 11/20 Inactiv e 2023 64326 39580 4 Every 72 hours Transd ermal False Ondansetron 4 mg disintegrat ing tablet [generic] 11/14 Inactiv e 2023 28850 40584 4 Ondansetron 4 mg disintegrat ing tablet [generic] 4 mg By Mouth Every 8 hours For Nausea 4 mg 2023 Active 2023 36120 30475 4 Every 8 hours By Mouth False Miralax 17 gram oral powder packet 8.5 g (1/2 capful) By Mouth Once daily For constipation 8.5 g 11/18 Inactiv e 2023 66136 12009 6 Once daily By Mouth False Pioglitazon e 15 mg tablet [generic] 11/14 Inactiv e 2023 88267 50863 1 E11.9 Pioglitazon e 15 mg tablet [generic] 7.5mg ( half a tab) By Mouth Once daily For TYPE 2 DIABETES MELLITUS WITHOUT COMPLICATIONS 7.5mg 2023 Active 2023 28758 44730 1 Once daily By Mouth E11.9 False Mylanta Coat-Cool 1,200 mg-270 mg-80 mg/10 mL oral suspension 10 ml By Mouth Every 8 hours As Needed For heartburn, indigestion, gas 10 ml 2023 Active 2023 72336 73872 1 Every 8 hours By Mouth False Prochlorper azine maleate 5 mg tablet [generic] 5 mg By Mouth Every 8 hours as needed For Nausea 5 mg 2023 Active 2023 14658 37066 1 Every 8 hours as needed By Mouth False Potassium chloride ER 10 mEq capsule,ext ended release [generic] 10 meq By Mouth 4 times a day For Hypokalemia 10 meq 11/20 Inactiv e 2023 25255 80478 1 4 times a day By Mouth False Lorazepam 0.5 mg tablet [generic] 11/18 Inactiv e 2023 68645 74487 0 Lorazepam 0.5 mg tablet [generic] 0.5 mg By Mouth Every 8 hours as needed For Anxiety 0.5 mg 12/18 Active 2023 18298 05098 0 Every 8 hours as needed By Mouth False Flomax 0.4 mg capsule 11/18 Inactiv e 2023 36210 64012 1 Flomax 0.4 mg capsule 0.4 mg By Mouth Once daily For Urinary retention 0.4 mg 11/19 Inactiv e 2023 27959 72619 1 Once daily By Mouth False Oxycodone 5 mg tablet [generic] 11/18 Inactiv e 2023 64534 23646 1 Oxycodone 5 mg tablet [generic] 5 mg By Mouth Every 6 hours as needed For Back Pain 5 mg 2023 Active 2023 33064 00855 1 Every 6 hours as needed By Mouth False Cipro 250 mg tablet 250 mg By Mouth Twice daily For UTI 250 mg 11/19 Inactiv e 2023 26090 53142 1 Twice daily By Mouth False Senna 8.6 mg tablet 17.2 mg By Mouth Twice daily For Constipation 17.2 mg 2023 Active 2023 32655 26930 1 Twice daily By Mouth False Zyprexa 2.5 mg tablet 2.5 mg By Mouth At bedtime For persistent nausea 2.5 mg 2023 Active 2023 99474 35680 0 At bedtime By Mouth False MAGNESSIUM GLUCONATE 500mg By Mouth Every morning For Supplement 500mg 2023 Active 2023 Every morning By Mouth False Cipro 250 mg tablet 11/19 Inactiv e 2023 20786 35959 1 Cipro 250 mg tablet 250 mg By Mouth Twice daily For UTI 250 mg 11/26 Active 2023 37603 47443 1 Twice daily By Mouth False Flomax 0.4 mg capsule 11/19 Inactiv e 2023 16329 57565 1 Flomax 0.4 mg capsule 0.4 mg By Mouth Once daily For Urinary retention 0.4 mg 11/20 Inactiv e 2023 21625 64407 1 Once daily By Mouth False Motrin IB 200 mg tablet 600 mg By Mouth Every 12 hours As Needed For Pain 600 mg 11/20 Inactiv e 2023 88824 48905 2 Every 12 hours By Mouth False Motrin IB 200 mg tablet 600 mg By Mouth Every 12 hours As Needed For Pain 600 mg 11/20 Inactiv e 2023 31494 92649 2 Every 12 hours By Mouth False Motrin IB 200 mg tablet 600 mg By Mouth Every 12 hours As Needed For Pain 600 mg 11/27 Active 2023 48071 32240 2 Every 12 hours By Mouth False Flomax 0.4 mg capsule 0.4 mg By Mouth Once daily For Urinary retention 0.4 mg 11/21 Inactiv e 2023 98922 46900 1 Once daily By Mouth False Scopolamine 1 mg over 3 days transdermal patch [generic] 1 Transdermal Every 72 hours For nausea 1 11/22 Inactiv e 2023 27265 96453 4 Every 72 hours Transd ermal False Butrans 7.5 mcg/hour transdermal patch 1 patch Transdermal Every 7 Days For Pain 1 patch 202300 0000 Active 2023 13282 28886 4 Every week Transd ermal False Tizanidine 2 mg tablet [generic] 2mg By Mouth At bedtime For Muscle spasms 2mg 202300 /0000 Active 2023 45614 69387 0 At bedtime By Mouth False Prednisone 20 mg tablet [generic] 60 mg By Mouth 1 time For Sciatica Pain 60 mg 11/22 Inactiv e 2023 69567 18424 1 1 time By Mouth False Prednisone 20 mg tablet [generic] 40mg By Mouth 1 time For Sciatica Pain 40mg 11/23 Inactiv e 2023 93149 22358 1 1 time By Mouth False Prednisone 20 mg tablet [generic] 20mg By Mouth 1 time For Sciatica 20mg 11/24 Inactiv e 2023 19167 86340 1 1 time By Mouth False ACCU [...] order For Steroid Therapy 11/28 Active 2023 46816 49226 9 Twice daily Subcut aneous False Flomax 0.4 mg capsule 1 capsule By Mouth At bedtime For urinary retnetion 1 capsule 12/24 Active 2023 46888 05144 1 At bedtime By Mouth False Problems Code Description Start Date End [...] weight Temperature SpO2 Blood Sugar Pulse Respirations 61051 5 75.00 mm[Hg] - Sitting 140.00 mm[Hg] - Sitting 65 NI 98.00 Tympanic 95.00 % 102.00 /min 18.00/min 00665 918 38810 9 41992 918 12297 2 75.00 mm[Hg] - Sitting 140.00 mm[Hg] - Sitting 98.00 Tympanic 102.00 /min 18.00/min 67278 918 10061 3 79966 918 16998 1 72.00 mm[Hg] - Sitting 138.00 mm[Hg] - Sitting 98.40 Tympanic 918 98460 4 88.00/ min 18.00/min 919 19354 4 71.00 mm[Hg] - Sitting 115.00 mm[Hg] - Sitting 98.30 Tympanic 97.00 % 86.00/ min 16.00/min 74884 919 72462 0 71.00 mm[Hg] - Sitting 115.00 mm[Hg] - Sitting 98.30 Tympanic 86.00/ min 16.00/min 20572 919 41324 7 71.00 mm[Hg] - Sitting 115.00 mm[Hg] - Sitting 98.30 Tympanic 86.00/ min 16.00/min 79170 920 32678 6 72.00 mm[Hg] - Sitting 112.00 mm[Hg] - Sitting 98.10 Tympanic 82.00/ min 18.00/min 76641 920 75237 0 75.00 mm[Hg] - Sitting 130.00 mm[Hg] - Sitting 98.40 Forehead Scan 93.00 % 88.00/ min 18.00/min 83087 920 30679 2 75.00 mm[Hg] - Lying Down 130.00 mm[Hg] - Lying Down 98.40 Tympanic 88.00/ min 18.00/min 65090 920 16134 5 75.00 mm[Hg] - Lying Down 130.00 mm[Hg] - Lying Down 98.40 Tympanic 88.00/ min 18.00/min 80043 920 30358 6 199.00 NI 8[address]88 920 25716 3 75.00 mm[Hg] - Sitting 130.00 mm[Hg] - Sitting 98.40 Tympanic 88.00/ min 18.00/min 91723 921 17264 1 71.00 mm[Hg] - Lying Down 119.00 mm[Hg] - Lying Down 98.40 Forehead Scan 96.00 % 83.00/ min 16.00/min 59123 922 30642 6 71.00 mm[Hg] - Lying Down 128.00 mm[Hg] - Lying Down 98.30 Forehead Scan 94.00 % 84.00/ min 18.00/min 19087 923 41871 4 63.00 mm[Hg] - Sitting 105.00 mm[Hg] - Sitting 98.20 Tympanic 93.00 % 93.00/ min 18.00/min 69493 924 38400 8 66.00 mm[Hg] - Sitting 104.00 mm[Hg] - Sitting 98.20 Tympanic 98.00 % 84.00/ min 16.00/min 68225 925 76388 2 131.00 mg/dL 26022 925 91101 6 138.00 mg/dL 08780 926 46106 1 199.00 NI 57128 927 61448 7 98.40 Tympanic 32332 927 25214 0 78.00 mm[Hg] - Sitting 124.00 mm[Hg] - Sitting 98.30 Forehead Scan 95.00 % 83.00/ min 16.00/min 75546 927 76539 7 98.10 Tympanic 56986 928 47988 9 60.00 mm[Hg] - Sitting 99.00 mm[Hg] - Sitting 98.20 Tympanic 91.00 % 64.00/ min 16.00/min 51762 928 48442 0 98.40 Tympanic 44205 928 11294 0 235.00 mg/dL 61584 928 49127 2 98.30 Tympanic 60353 929 33738 0 159.00 mg/dL 51444 929 62350 1 98.10 Tympanic 03902 929 26755 5 97.90 Tympanic 78085 929 93572 1 72.00 mm[Hg] - Sitting 101.00 mm[Hg] - Sitting 97.90 Tympanic 92.00 % 65.00/ min 16.00/min
--- OUTSIDE RECORDS SUMMARY | 2023-12-13 23:53 | External Medical Summary | Continuity Of Care Document ---
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 unit/0.1 mL intradermal injection solution [Tuberculin PPD] 0.1mL Intradermal 1 time For PPD 2nd Step Give 2nd Step PPD Day 1 and Read results Day 3 (schedule 7 days after 1st READ) 0.1mL 11/13 Inactiv e 2023 30761 05948 0 1 time Intrad ermal False DISCONTINUE as of 11/14/2023: Tubersol 5 tub. unit/0.1 mL intradermal injection solution [Tuberculin PPD] 11/13 Inactiv e 2023 98880 24835 0 Tubersol 5 tub. unit/0.1 mL intradermal injection solution 0.1 mL Intradermal 1 time For PPD Step 1 GIVE on Day 1 and read results Day 3 0.1 mL 11/16 Inactiv e 2023 52129 81951 1 1 time Intrad ermal False DISCONTINUE as of 11/14/2023: Tubersol 5 tub. unit/0.1 mL intradermal injection solution [Tuberculin PPD] 11/13 Inactiv e 2023 09650 42166 0 Tubersol 5 tub. unit/0.1 mL intradermal injection solution 0.1mL Intradermal 1 time For PPD 2nd Step Give 2nd Step PPD Day 1 and Read results Day 3 (schedule 7 days after 1st READ) 0.1mL 11/25 Active 2023 42006 99828 1 1 time Intrad ermal False Tylenol 325 mg tablet 2 tabs By Mouth Every 4 hours as needed For Pain DO NOT EXCEED 3000 MG APAP/24 Hours 2 tabs 202300 /0000 Active 2023 95126 65569 0 Every 4 hours as needed By Mouth False Tylenol 325 mg tablet 2 tabs By Mouth Every 4 hours as needed For Fever >100 DO NOT EXCEED 3000 MG APAP/24 Hours 2 tabs 202300 /0000 Active 2023 54189 87877 0 Every 4 hours as needed By Mouth False Dulcolax (bisacodyl) 10 mg rectal suppository One Suppository per rectum PRN if Milk of Magnisia ineffective. Give on day 5 of no BM 1 sup 2023 Active 2023 31610 17302 1 Daily as needed Rectal False Fleet Enema 19 gram-7 gram/118 mL Administer per rectum PRN one time if dulcolax suppository not effective. Give on day 6 of no BM 1 202300 0000 Active 2023 92456 52683 6 Daily as needed Rectal False Dextrose 50 % in water (D50W) intravenous solution [generic] Dextrose 50% reyes 20-50 ml (slow push) Intravenous if Glucagon not effective after 15 minutes. CALL 911 for ED Evaluation. 50% reyes 202300 /0000 Active 2023 93257 25964 9 Intrav enous False Glucagon (HCl) Emergency Kit 1 mg solution for injection Administer Glucagon 1 mg Intramuscular if 15 minutes after GLucose Gel is administered Glucose remains less than 70 1 mg 2023 Active 2023 08841 79066 2 Intram uscula r False Glucose Gel 40 % oral gel [Dextrose] PRN If resident is unable to swallow (with or without symptoms) and Glucose results less than 70 give GLucose 40% Gel 1 tube orally - Recheck Glucose 15 minutes after administratio n. 1 tube 2023 Active 2023 55341 91741 8 By Mouth False Lorazepam 0.5 mg tablet [generic] 0.5 mg By Mouth Every 8 hours as needed For Anxiety 0.5 mg 11/18 Inactiv e 2023 28958 62999 0 Every 8 hours as needed By Mouth False Potassium chloride ER 20 mEq tablet,exte nded release [generic] 40 meq By Mouth Once daily For Hypokalemia 40 meq 11/13 Inactiv e 2023 52851 02693 1 Once daily By Mouth False Colesevelam 625 mg tablet [generic] 1250 mg By Mouth Twice daily For TYPE 2 DIABETES MELLITUS WITHOUT COMPLICATIONS 1250 mg 11/19 Inactiv e 2023 72799 79324 1 Twice daily By Mouth E11.9 False Pioglitazon e 15 mg tablet [generic] 15 mg By Mouth Once daily For TYPE 2 DIABETES MELLITUS WITHOUT COMPLICATIONS 15 mg 11/14 Inactiv e 2023 03066 65168 1 Once daily By Mouth E11.9 False Cholecalcif hardeep (vitamin D3) 50 mcg (2,000 unit) tablet [generic] 50 mcg By Mouth Once daily For Supplement 50 mcg 2023 Active 2023 34047 82624 1 Once daily By Mouth False Colchicine 0.6 mg tablet [generic] 0.6 mg By Mouth Twice daily As Needed For Gout 0.6 mg 2023 Active 2023 24191 40557 4 Twice daily By Mouth False Levothyroxi ne 200 mcg tablet [generic] 200 mcg By Mouth Once daily For Hypothyroidis m 200 mcg 202300 0000 Active 2023 87506 37594 0 Once daily By Mouth False Ondansetron 4 mg disintegrat ing tablet [generic] 4 mg By Mouth Every 6 hours as needed For Nausea 4 mg 11/12 Inactiv e 2023 08133 39078 4 Every 6 hours as needed By Mouth False Docusate sodium 100 mg capsule [generic] 100 mg By Mouth Twice daily For Constipation 100 mg 202300 0000 Active 2023 53023 96156 1 Twice daily By Mouth False Oxycodone 5 mg tablet [generic] 5 mg By Mouth Every 6 hours as needed For Pain 5 mg 11/12 Inactiv e 2023 44143 22151 1 Every 6 hours as needed By Mouth False Oxycodone 5 mg tablet [generic] 5 mg By Mouth Every 6 hours as needed For Pain 5 mg 11/18 Inactiv e 2023 67602 70813 1 Every 6 hours as needed By Mouth False Milk of Magnesia 400 mg/5 mL oral suspension 30 ml By Mouth one time per day as needed if no BM x 3 days For Constipation 30 ml 202300 Active 2023 29101 39028 2 By Mouth False Ondansetron 4 mg disintegrat ing tablet [generic] 11/12 Inactiv e 2023 84076 49258 4 Ondansetron 4 mg disintegrat ing tablet [generic] 4 mg By Mouth Every 6 hours as needed For Nausea 4 mg 11/14 Inactiv e 2023 44542 36017 4 Every 6 hours as needed By Mouth False Potassium chloride ER 10 mEq capsule,ext ended release [generic] 40 mEq By Mouth Once daily For hypokalemia 40 mEq 11/17 Inactiv e 2023 24332 43457 1 Once daily By Mouth False Potassium chloride ER 10 mEq capsule,ext ended release [generic] 4 capsules By Mouth At bedtime For hypokalemia 4 capsule s 11/16 Inactiv e 2023 56883 02787 1 At bedtime By Mouth False Flomax 0.4 mg capsule 0.4 mg By Mouth At bedtime For Urinary retention 0.4 mg 11/18 Inactiv e 2023 25090 18563 1 At bedtime By Mouth False STOOL CULTURE Once daily Obtain stool culture, add C. Diff to routine stool culture For Rule out C. Diff 1x 2023 Active 2023 Once daily Other False Butrans 5 mcg/hour transdermal patch 1 patch Transdermal Every 7 Days For Pain 1 patch 11/20 Inactiv e 2023 45043 71776 4 Every week Transd ermal False Pantoprazol e 40 mg tablet,nu yed release [generic] 40 mg By Mouth Twice daily For gerd 40 mg 2023 Active 2023 00034 46328 0 Twice daily By Mouth False Scopolamine 1 mg over 3 days transdermal patch [generic] 1 Transdermal Every 72 hours For nausea 1 11/20 Inactiv e 2023 00275 60787 4 Every 72 hours Transd ermal False Ondansetron 4 mg disintegrat ing tablet [generic] 11/14 Inactiv e 2023 83807 19806 4 Ondansetron 4 mg disintegrat ing tablet [generic] 4 mg By Mouth Every 8 hours For Nausea 4 mg 2023 Active 2023 85456 87176 4 Every 8 hours By Mouth False Miralax 17 gram oral powder packet 8.5 g (1/2 capful) By Mouth Once daily For constipation 8.5 g 11/18 Inactiv e 2023 95007 88220 6 Once daily By Mouth False Pioglitazon e 15 mg tablet [generic] 11/14 Inactiv e 2023 87612 27218 1 E11.9 Pioglitazon e 15 mg tablet [generic] 7.5mg ( half a tab) By Mouth Once daily For TYPE 2 DIABETES MELLITUS WITHOUT COMPLICATIONS 7.5mg 2023 Active 2023 83428 34495 1 Once daily By Mouth E11.9 False Mylanta Coat-Cool 1,200 mg-270 mg-80 mg/10 mL oral suspension 10 ml By Mouth Every 8 hours As Needed For heartburn, indigestion, gas 10 ml 2023 Active 2023 78660 00254 1 Every 8 hours By Mouth False Prochlorper azine maleate 5 mg tablet [generic] 5 mg By Mouth Every 8 hours as needed For Nausea 5 mg 2023 Active 2023 32453 52124 1 Every 8 hours as needed By Mouth False Potassium chloride ER 10 mEq capsule,ext ended release [generic] 10 meq By Mouth 4 times a day For Hypokalemia 10 meq 11/20 Inactiv e 2023 16919 08819 1 4 times a day By Mouth False Lorazepam 0.5 mg tablet [generic] 11/18 Inactiv e 2023 66991 00835 0 Lorazepam 0.5 mg tablet [generic] 0.5 mg By Mouth Every 8 hours as needed For Anxiety 0.5 mg 12/18 Active 2023 41671 95409 0 Every 8 hours as needed By Mouth False Flomax 0.4 mg capsule 11/18 Inactiv e 2023 00761 01991 1 Flomax 0.4 mg capsule 0.4 mg By Mouth Once daily For Urinary retention 0.4 mg 11/19 Inactiv e 2023 11238 19331 1 Once daily By Mouth False Oxycodone 5 mg tablet [generic] 11/18 Inactiv e 2023 28176 68359 1 Oxycodone 5 mg tablet [generic] 5 mg By Mouth Every 6 hours as needed For Back Pain 5 mg 2023 Active 2023 90190 87772 1 Every 6 hours as needed By Mouth False Cipro 250 mg tablet 250 mg By Mouth Twice daily For UTI 250 mg 11/19 Inactiv e 2023 09474 97459 1 Twice daily By Mouth False Senna 8.6 mg tablet 17.2 mg By Mouth Twice daily For Constipation 17.2 mg 2023 Active 2023 31175 82162 1 Twice daily By Mouth False Zyprexa 2.5 mg tablet 2.5 mg By Mouth At bedtime For persistent nausea 2.5 mg 2023 Active 2023 55735 56005 0 At bedtime By Mouth False MAGNESSIUM GLUCONATE 500mg By Mouth Every morning For Supplement 500mg 2023 Active 2023 Every morning By Mouth False Cipro 250 mg tablet 11/19 Inactiv e 2023 84009 90201 1 Cipro 250 mg tablet 250 mg By Mouth Twice daily For UTI 250 mg 11/26 Active 2023 94686 63193 1 Twice daily By Mouth False Flomax 0.4 mg capsule 11/19 Inactiv e 2023 59114 69983 1 Flomax 0.4 mg capsule 0.4 mg By Mouth Once daily For Urinary retention 0.4 mg 11/20 Inactiv e 2023 45860 85345 1 Once daily By Mouth False Motrin IB 200 mg tablet 600 mg By Mouth Every 12 hours As Needed For Pain 600 mg 11/20 Inactiv e 2023 69600 72721 2 Every 12 hours By Mouth False Motrin IB 200 mg tablet 600 mg By Mouth Every 12 hours As Needed For Pain 600 mg 11/20 Inactiv e 2023 79337 81246 2 Every 12 hours By Mouth False Motrin IB 200 mg tablet 600 mg By Mouth Every 12 hours As Needed For Pain 600 mg 11/27 Active 2023 41276 06571 2 Every 12 hours By Mouth False Flomax 0.4 mg capsule 0.4 mg By Mouth Once daily For Urinary retention 0.4 mg 11/21 Inactiv e 2023 50716 76171 1 Once daily By Mouth False Scopolamine 1 mg over 3 days transdermal patch [generic] 1 Transdermal Every 72 hours For nausea 1 11/22 Inactiv e 2023 73269 99980 4 Every 72 hours Transd ermal False Butrans 7.5 mcg/hour transdermal patch 1 patch Transdermal Every 7 Days For Pain 1 patch 202300 0000 Active 2023 60529 76991 4 Every week Transd ermal False Tizanidine 2 mg tablet [generic] 2mg By Mouth At bedtime For Muscle spasms 2mg 202300 /0000 Active 2023 34777 82858 0 At bedtime By Mouth False Prednisone 20 mg tablet [generic] 60 mg By Mouth 1 time For Sciatica Pain 60 mg 11/22 Inactiv e 2023 35401 66439 1 1 time By Mouth False Prednisone 20 mg tablet [generic] 40mg By Mouth 1 time For Sciatica Pain 40mg 11/23 Inactiv e 2023 81881 34986 1 1 time By Mouth False Prednisone 20 mg tablet [generic] 20mg By Mouth 1 time For Sciatica 20mg 11/24 Inactiv e 2023 33096 28678 1 1 time By Mouth False ACCU [...] order For Steroid Therapy 11/28 Active 2023 89780 81766 9 Twice daily Subcut aneous False Flomax 0.4 mg capsule 1 capsule By Mouth At bedtime For urinary retnetion 1 capsule 12/24 Active 2023 54967 14770 1 At bedtime By Mouth False Problems [...] weight Temperature SpO2 Blood Sugar Pulse Respirations 76188 5 75.00 mm[Hg] - Sitting 140.00 mm[Hg] - Sitting 65 NI 98.00 Tympanic 95.00 % 102.00 /min 18.00/min 77978 918 11039 9 78817 918 75861 2 75.00 mm[Hg] - Sitting 140.00 mm[Hg] - Sitting 98.00 Tympanic 102.00 /min 18.00/min 52851 918 40939 3 23451 918 05217 1 72.00 mm[Hg] - Sitting 138.00 mm[Hg] - Sitting 98.40 Tympanic 918 89878 4 88.00/ min 18.00/min 919 74967 4 71.00 mm[Hg] - Sitting 115.00 mm[Hg] - Sitting 98.30 Tympanic 97.00 % 86.00/ min 16.00/min 35763 919 68341 0 71.00 mm[Hg] - Sitting 115.00 mm[Hg] - Sitting 98.30 Tympanic 86.00/ min 16.00/min 49215 919 64113 7 71.00 mm[Hg] - Sitting 115.00 mm[Hg] - Sitting 98.30 Tympanic 86.00/ min 16.00/min 37327 920 92389 6 72.00 mm[Hg] - Sitting 112.00 mm[Hg] - Sitting 98.10 Tympanic 82.00/ min 18.00/min 60331 920 73748 0 75.00 mm[Hg] - Sitting 130.00 mm[Hg] - Sitting 98.40 Forehead Scan 93.00 % 88.00/ min 18.00/min 57918 920 13396 2 75.00 mm[Hg] - Lying Down 130.00 mm[Hg] - Lying Down 98.40 Tympanic 88.00/ min 18.00/min 18000 920 62139 5 75.00 mm[Hg] - Lying Down 130.00 mm[Hg] - Lying Down 98.40 Tympanic 88.00/ min 18.00/min 76602 920 46931 6 199.00 NI 89092 920 67286 3 75.00 mm[Hg] - Sitting 130.00 mm[Hg] - Sitting 98.40 Tympanic 88.00/ min 18.00/min 10417 921 25368 1 71.00 mm[Hg] - Lying Down 119.00 mm[Hg] - Lying Down 98.40 Forehead Scan 96.00 % 83.00/ min 16.00/min 87447 922 31281 6 71.00 mm[Hg] - Lying Down 128.00 mm[Hg] - Lying Down 98.30 Forehead Scan 94.00 % 84.00/ min 18.00/min 89793 923 17657 4 63.00 mm[Hg] - Sitting 105.00 mm[Hg] - Sitting 98.20 Tympanic 93.00 % 93.00/ min 18.00/min 83175 924 72230 8 66.00 mm[Hg] - Sitting 104.00 mm[Hg] - Sitting 98.20 Tympanic 98.00 % 84.00/ min 16.00/min 85446 925 17748 2 131.00 mg/dL 18505 925 47516 6 138.00 mg/dL 44229 926 88647 1 199.00 NI 82105 927 86346 7 98.40 Tympanic 81497 927 82575 0 78.00 mm[Hg] - Sitting 124.00 mm[Hg] - Sitting 98.30 Forehead Scan 95.00 % 83.00/ min 16.00/min 76169 927 69189 7 98.10 Tympanic 69729 928 88218 9 60.00 mm[Hg] - Sitting 99.00 mm[Hg] - Sitting 98.20 Tympanic 91.00 % 64.00/ min 16.00/min 05431 928 72449 0 98.40 Tympanic 75749 928 26977 0 235.00 mg/dL 17515 928 80359 2 98.30 Tympanic 23740 929 34363 0 159.00 mg/dL 64358 929 83308 1 98.10 Tympanic 57286 929 53122 5 97.90 Tympanic 56721 929 45486 1 72.00 mm[Hg] - Sitting 101.00 mm[Hg] - Sitting 97.90 Tympanic 92.00 % 65.00/ min 16.00/min
--- OUTSIDE RECORDS SUMMARY | 2023-12-13 23:53 | External Medical Summary | Continuity Of Care Document ---
Author Name Unknown Address [address] [place] [address] [facility] () Care Team Providers Care Recruiter Manager Name Role Phone DO Parson Amy Primary Care Provider [phone] Allergies Allergy Reaction Start Date End Date [...] 3 0.1 mL 11/13 Inactiv e 2023 09118 48604 0 1 time Intrad ermal False Tubersol 5 tub. unit/0.1 mL intradermal injection solution [Tuberculin PPD] 0.1mL Intradermal 1 time For PPD 2nd Step Give 2nd Step PPD Day 1 and Read results Day 3 (schedule 7 days after 1st READ) 0.1mL 11/13 Inactiv e 2023 88642 90824 0 1 time Intrad ermal False DISCONTINUE as of 11/14/2023: Tubersol 5 tub. unit/0.1 mL intradermal injection solution [Tuberculin PPD] 11/13 Inactiv e 2023 92948 62528 0 Tubersol 5 tub. unit/0.1 mL intradermal injection solution 0.1 mL Intradermal 1 time For PPD Step 1 GIVE on Day 1 and read results Day 3 0.1 mL 11/16 Inactiv e 2023 16532 19509 1 1 time Intrad ermal False DISCONTINUE as of 11/14/2023: Tubersol 5 tub. unit/0.1 mL intradermal injection solution [Tuberculin PPD] 11/13 Inactiv e 2023 86047 29317 0 Tubersol 5 tub. unit/0.1 mL intradermal injection solution 0.1mL Intradermal 1 time For PPD 2nd Step Give 2nd Step PPD Day 1 and Read results Day 3 (schedule 7 days after 1st READ) 0.1mL 11/25 Active 2023 99455 40846 1 1 time Intrad ermal False Tylenol 325 mg tablet 2 tabs By Mouth Every 4 hours as needed For Pain DO NOT EXCEED 3000 MG APAP/24 Hours 2 tabs 202300 /0000 Active 2023 89490 76734 0 Every 4 hours as needed By Mouth False Tylenol 325 mg tablet 2 tabs By Mouth Every 4 hours as needed For Fever >100 DO NOT EXCEED 3000 MG APAP/24 Hours 2 tabs 202300 /0000 Active 2023 47985 16404 0 Every 4 hours as needed By Mouth False Dulcolax (bisacodyl) 10 mg rectal suppository One Suppository per rectum PRN if Milk of Magnisia ineffective. Give on day 5 of no BM 1 sup 2023 Active 2023 22839 14027 1 Daily as needed Rectal False Fleet Enema 19 gram-7 gram/118 mL Administer per rectum PRN one time if dulcolax suppository not effective. Give on day 6 of no BM 1 202300 0000 Active 2023 62952 80686 6 Daily as needed Rectal False Dextrose 50 % in water (D50W) intravenous solution [generic] Dextrose 50% reyes 20-50 ml (slow push) Intravenous if Glucagon not effective after 15 minutes. CALL 911 for ED Evaluation. 50% reyes 202300 /0000 Active 2023 61924 65502 9 Intrav enous False Glucagon (HCl) Emergency Kit 1 mg solution for injection Administer Glucagon 1 mg Intramuscular if 15 minutes after GLucose Gel is administered Glucose remains less than 70 1 mg 2023 Active 2023 63397 61262 2 Intram uscula r False Glucose Gel 40 % oral gel [Dextrose] PRN If resident is unable to swallow (with or without symptoms) and Glucose results less than 70 give GLucose 40% Gel 1 tube orally - Recheck Glucose 15 minutes after administratio n. 1 tube 2023 Active 2023 59904 73881 8 By Mouth False Lorazepam 0.5 mg tablet [generic] 0.5 mg By Mouth Every 8 hours as needed For Anxiety 0.5 mg 11/18 Inactiv e 2023 59137 83833 0 Every 8 hours as needed By Mouth False Potassium chloride ER 20 mEq tablet,exte nded release [generic] 40 meq By Mouth Once daily For Hypokalemia 40 meq 11/13 Inactiv e 2023 78801 28459 1 Once daily By Mouth False Colesevelam 625 mg tablet [generic] 1250 mg By Mouth Twice daily For TYPE 2 DIABETES MELLITUS WITHOUT COMPLICATIONS 1250 mg 11/19 Inactiv e 2023 10376 64724 1 Twice daily By Mouth E11.9 False Pioglitazon e 15 mg tablet [generic] 15 mg By Mouth Once daily For TYPE 2 DIABETES MELLITUS WITHOUT COMPLICATIONS 15 mg 11/14 Inactiv e 2023 58242 23187 1 Once daily By Mouth E11.9 False Cholecalcif hardeep (vitamin D3) 50 mcg (2,000 unit) tablet [generic] 50 mcg By Mouth Once daily For Supplement 50 mcg 2023 Active 2023 43497 45773 1 Once daily By Mouth False Colchicine 0.6 mg tablet [generic] 0.6 mg By Mouth Twice daily As Needed For Gout 0.6 mg 2023 Active 2023 65781 96392 4 Twice daily By Mouth False Levothyroxi ne 200 mcg tablet [generic] 200 mcg By Mouth Once daily For Hypothyroidis m 200 mcg 202300 0000 Active 2023 79723 78597 0 Once daily By Mouth False Ondansetron 4 mg disintegrat ing tablet [generic] 4 mg By Mouth Every 6 hours as needed For Nausea 4 mg 11/12 Inactiv e 2023 34317 61913 4 Every 6 hours as needed By Mouth False Docusate sodium 100 mg capsule [generic] 100 mg By Mouth Twice daily For Constipation 100 mg 202300 0000 Active 2023 28449 85581 1 Twice daily By Mouth False Oxycodone 5 mg tablet [generic] 5 mg By Mouth Every 6 hours as needed For Pain 5 mg 11/12 Inactiv e 2023 01220 92826 1 Every 6 hours as needed By Mouth False Oxycodone 5 mg tablet [generic] 5 mg By Mouth Every 6 hours as needed For Pain 5 mg 11/18 Inactiv e 2023 76249 08615 1 Every 6 hours as needed By Mouth False Milk of Magnesia 400 mg/5 mL oral suspension 30 ml By Mouth one time per day as needed if no BM x 3 days For Constipation 30 ml 202300 Active 2023 94348 78925 2 By Mouth False Ondansetron 4 mg disintegrat ing tablet [generic] 11/12 Inactiv e 2023 49127 58432 4 Ondansetron 4 mg disintegrat ing tablet [generic] 4 mg By Mouth Every 6 hours as needed For Nausea 4 mg 11/14 Inactiv e 2023 00024 09945 4 Every 6 hours as needed By Mouth False Potassium chloride ER 10 mEq capsule,ext ended release [generic] 40 mEq By Mouth Once daily For hypokalemia 40 mEq 11/17 Inactiv e 2023 40754 93020 1 Once daily By Mouth False Potassium chloride ER 10 mEq capsule,ext ended release [generic] 4 capsules By Mouth At bedtime For hypokalemia 4 capsule s 11/16 Inactiv e 2023 00511 06925 1 At bedtime By Mouth False Flomax 0.4 mg capsule 0.4 mg By Mouth At bedtime For Urinary retention 0.4 mg 11/18 Inactiv e 2023 20765 98755 1 At bedtime By Mouth False STOOL CULTURE Once daily Obtain stool culture, add C. Diff to routine stool culture For Rule out C. Diff 1x 2023 Active 2023 Once daily Other False Butrans 5 mcg/hour transdermal patch 1 patch Transdermal Every 7 Days For Pain 1 patch 11/20 Inactiv e 2023 49915 69756 4 Every week Transd ermal False Pantoprazol e 40 mg tablet,nu yed release [generic] 40 mg By Mouth Twice daily For gerd 40 mg 2023 Active 2023 58064 82954 0 Twice daily By Mouth False Scopolamine 1 mg over 3 days transdermal patch [generic] 1 Transdermal Every 72 hours For nausea 1 11/20 Inactiv e 2023 61184 58193 4 Every 72 hours Transd ermal False Ondansetron 4 mg disintegrat ing tablet [generic] 11/14 Inactiv e 2023 90162 97139 4 Ondansetron 4 mg disintegrat ing tablet [generic] 4 mg By Mouth Every 8 hours For Nausea 4 mg 2023 Active 2023 86082 11835 4 Every 8 hours By Mouth False Miralax 17 gram oral powder packet 8.5 g (1/2 capful) By Mouth Once daily For constipation 8.5 g 11/18 Inactiv e 2023 06573 61853 6 Once daily By Mouth False Pioglitazon e 15 mg tablet [generic] 11/14 Inactiv e 2023 29497 35970 1 E11.9 Pioglitazon e 15 mg tablet [generic] 7.5mg ( half a tab) By Mouth Once daily For TYPE 2 DIABETES MELLITUS WITHOUT COMPLICATIONS 7.5mg 2023 Active 2023 03578 40793 1 Once daily By Mouth E11.9 False Mylanta Coat-Cool 1,200 mg-270 mg-80 mg/10 mL oral suspension 10 ml By Mouth Every 8 hours As Needed For heartburn, indigestion, gas 10 ml 2023 Active 2023 21133 26598 1 Every 8 hours By Mouth False Prochlorper azine maleate 5 mg tablet [generic] 5 mg By Mouth Every 8 hours as needed For Nausea 5 mg 2023 Active 2023 76268 81819 1 Every 8 hours as needed By Mouth False Potassium chloride ER 10 mEq capsule,ext ended release [generic] 10 meq By Mouth 4 times a day For Hypokalemia 10 meq 11/20 Inactiv e 2023 32316 31101 1 4 times a day By Mouth False Lorazepam 0.5 mg tablet [generic] 11/18 Inactiv e 2023 84763 89783 0 Lorazepam 0.5 mg tablet [generic] 0.5 mg By Mouth Every 8 hours as needed For Anxiety 0.5 mg 12/18 Active 2023 78850 28760 0 Every 8 hours as needed By Mouth False Flomax 0.4 mg capsule 11/18 Inactiv e 2023 85514 85368 1 Flomax 0.4 mg capsule 0.4 mg By Mouth Once daily For Urinary retention 0.4 mg 11/19 Inactiv e 2023 74090 12213 1 Once daily By Mouth False Oxycodone 5 mg tablet [generic] 11/18 Inactiv e 2023 19762 28851 1 Oxycodone 5 mg tablet [generic] 5 mg By Mouth Every 6 hours as needed For Back Pain 5 mg 2023 Active 2023 21898 94738 1 Every 6 hours as needed By Mouth False Cipro 250 mg tablet 250 mg By Mouth Twice daily For UTI 250 mg 11/19 Inactiv e 2023 78863 68526 1 Twice daily By Mouth False Senna 8.6 mg tablet 17.2 mg By Mouth Twice daily For Constipation 17.2 mg 2023 Active 2023 64361 86489 1 Twice daily By Mouth False Zyprexa 2.5 mg tablet 2.5 mg By Mouth At bedtime For persistent nausea 2.5 mg 2023 Active 2023 26140 30695 0 At bedtime By Mouth False MAGNESSIUM GLUCONATE 500mg By Mouth Every morning For Supplement 500mg 2023 Active 2023 Every morning By Mouth False Cipro 250 mg tablet 11/19 Inactiv e 2023 42170 34218 1 Cipro 250 mg tablet 250 mg By Mouth Twice daily For UTI 250 mg 11/26 Active 2023 52393 56385 1 Twice daily By Mouth False Flomax 0.4 mg capsule 11/19 Inactiv e 2023 41139 11354 1 Flomax 0.4 mg capsule 0.4 mg By Mouth Once daily For Urinary retention 0.4 mg 11/20 Inactiv e 2023 16228 06234 1 Once daily By Mouth False Motrin IB 200 mg tablet 600 mg By Mouth Every 12 hours As Needed For Pain 600 mg 11/20 Inactiv e 2023 46388 16356 2 Every 12 hours By Mouth False Motrin IB 200 mg tablet 600 mg By Mouth Every 12 hours As Needed For Pain 600 mg 11/20 Inactiv e 2023 13366 68687 2 Every 12 hours By Mouth False Motrin IB 200 mg tablet 600 mg By Mouth Every 12 hours As Needed For Pain 600 mg 11/27 Active 2023 54345 67800 2 Every 12 hours By Mouth False Flomax 0.4 mg capsule 0.4 mg By Mouth Once daily For Urinary retention 0.4 mg 11/21 Inactiv e 2023 45471 18163 1 Once daily By Mouth False Scopolamine 1 mg over 3 days transdermal patch [generic] 1 Transdermal Every 72 hours For nausea 1 11/22 Inactiv e 2023 81650 73358 4 Every 72 hours Transd ermal False Butrans 7.5 mcg/hour transdermal patch 1 patch Transdermal Every 7 Days For Pain 1 patch 202300 0000 Active 2023 63933 86157 4 Every week Transd ermal False Tizanidine 2 mg tablet [generic] 2mg By Mouth At bedtime For Muscle spasms 2mg 202300 /0000 Active 2023 92088 61386 0 At bedtime By Mouth False Prednisone 20 mg tablet [generic] 60 mg By Mouth 1 time For Sciatica Pain 60 mg 11/22 Inactiv e 2023 99064 16869 1 1 time By Mouth False Prednisone 20 mg tablet [generic] 40mg By Mouth 1 time For Sciatica Pain 40mg 11/23 Inactiv e 2023 67418 44426 1 1 time By Mouth False Prednisone 20 mg tablet [generic] 20mg By Mouth 1 time For Sciatica 20mg 11/24 Inactiv e 2023 54836 43828 1 1 time By Mouth False ACCU [...] order For Steroid Therapy 11/28 Active 2023 36307 80060 9 Twice daily Subcut aneous False Flomax 0.4 mg capsule 1 capsule By Mouth At bedtime For urinary retnetion 1 capsule 12/24 Active 2023 35218 63734 1 At bedtime By Mouth False Cholecalcif hardeep (vitamin D3) 50 mcg (2,000 unit) tablet [generic] 50 mcg By Mouth Once daily For Supplement 50 mcg 2023 Active 2023 13671 86349 1 Once daily By Mouth False Colchicine 0.6 mg tablet [generic] 0.6 mg By Mouth Twice daily As Needed For Gout 0.6 mg 2023 Active 2023 88234 91144 4 Twice daily By Mouth False Levothyroxi ne 200 mcg tablet [generic] 200 mcg By Mouth Once daily For Hypothyroidis m 200 mcg 2023 Active 2023 83909 95803 0 Once daily By Mouth False Docusate sodium 100 mg capsule [generic] 100 mg By Mouth Twice daily For Constipation 100 mg 2023 Active 2023 05548 39659 1 Twice daily By Mouth False Pantoprazol e 40 mg tablet,nu yed release [generic] 40 mg By Mouth Twice daily For gerd 40 mg 2023 Active 2023 85614 53538 0 Twice daily By Mouth False Ondansetron 4 mg disintegrat ing tablet [generic] 4 mg By Mouth Every 8 hours For Nausea 4 mg 2023 Active 2023 88484 42489 4 Every 8 hours By Mouth False Pioglitazon e 15 mg tablet [generic] 7.5mg ( half a tab) By Mouth Once daily For TYPE 2 DIABETES MELLITUS WITHOUT COMPLICATIONS 7.5mg 2023 Active 2023 97246 85027 1 Once daily By Mouth E11.9 False Mylanta Coat-Cool 1,200 mg-270 mg-80 mg/10 mL oral suspension 10 ml By Mouth Every 8 hours As Needed For heartburn, indigestion, gas 10 ml 2023 Active 20233 12535 1 Every 8 hours By Mouth False Prochlorper azine maleate 5 mg tablet [generic] 5 mg By Mouth Every 8 hours as needed For Nausea 5 mg 2023 Active 2023 18889 86667 1 Every 8 hours as needed By Mouth False Lorazepam 0.5 mg tablet [generic] 0.5 mg By Mouth Every 8 hours as needed For Anxiety 0.5 mg 2023 Active 2023 97383 99504 0 Every 8 hours as needed By Mouth False Oxycodone 5 mg tablet [generic] 5 mg By Mouth Every 6 hours as needed For Back Pain 5 mg 2023 Active 2023 83975 54956 1 Every 6 hours as needed By Mouth False Senna 8.6 mg tablet 17.2 mg By Mouth Twice daily For Constipation 17.2 mg 2023 Active 2023 84639 51977 1 Twice daily By Mouth False Zyprexa 2.5 mg tablet 2.5 mg By Mouth At bedtime For persistent nausea 2.5 mg 2023 Active 2023 07794 21101 0 At bedtime By Mouth False MAGNESSIUM GLUCONATE 500mg By Mouth Every morning For Supplement 500mg 2023 Active 2023 Every morning By Mouth False Cipro 250 mg tablet 250 mg By Mouth Twice daily For UTI 250 mg 2023 Active 2023 62429 25871 1 Twice daily By Mouth False Motrin IB 200 mg tablet 600 mg By Mouth Every 12 hours As Needed For Pain 600 mg 2023 Active 2023 90404 67699 2 Every 12 hours By Mouth False Butrans 7.5 mcg/hour transdermal patch 1 patch Transdermal Every 7 Days For Pain 1 patch 2023 Active 2023 79463 29392 4 Every week Transd ermal False Tizanidine 2 mg tablet [generic] 2mg By Mouth At bedtime For Muscle spasms 2mg 2023 Active 2023 13666 57846 0 At bedtime By Mouth False Humalog KingPen (U-100) Insulin 100 unit/mL subcutaneou s Subcutaneous T wice daily <70 initiate Hypoglycemic Protocol 70 thru 199 HOLD 150-199 give 0.0 200 thru 250 give 1.0 Unit 251 thru 300 give 2.0 Units 301 thru 350 give 3.0 Units 351 thru 400 give 4.0 Units >400 Call Provider for one time order For Steroid Therapy 2023 Active 2023 51680 02982 9 Twice daily Subcut aneous False Cholecalcif hardeep (vitamin D3) 50 mcg (2,000 unit) tablet [generic] 50 mcg By Mouth Once daily For Supplement 50 mcg 2023 Active 2023 43302 01010 1 Once daily By Mouth False Colchicine 0.6 mg tablet [generic] 0.6 mg By Mouth Twice daily As Needed For Gout 0.6 mg 2023 Active 2023 75652 04571 4 Twice daily By Mouth False Levothyroxi ne 200 mcg tablet [generic] 200 mcg By Mouth Once daily For Hypothyroidis m 200 mcg 2023 Active 2023 26865 26123 0 Once daily By Mouth False Docusate sodium 100 mg capsule [generic] 100 mg By Mouth Twice daily For Constipation 100 mg 2023 Active 2023 71785 87030 1 Twice daily By Mouth False Pantoprazol e 40 mg tablet,nu yed release [generic] 40 mg By Mouth Twice daily For gerd 40 mg 2023 Active 2023 87202 75732 0 Twice daily By Mouth False Ondansetron 4 mg disintegrat ing tablet [generic] 4 mg By Mouth Every 8 hours For Nausea 4 mg 2023 Active 2023 01777 05501 4 Every 8 hours By Mouth False Pioglitazon e 15 mg tablet [generic] 7.5mg ( half a tab) By Mouth Once daily For TYPE 2 DIABETES MELLITUS WITHOUT COMPLICATIONS 7.5mg 2023 Active 2023 27265 25090 1 Once daily By Mouth E11.9 False Mylanta Coat-Cool 1,200 mg-270 mg-80 mg/10 mL oral suspension 10 ml By Mouth Every 8 hours As Needed For heartburn, indigestion, gas 10 ml 2023 Active 2023 20361 65575 1 Every 8 hours By Mouth False Prochlorper azine maleate 5 mg tablet [generic] 5 mg By Mouth Every 8 hours as needed For Nausea 5 mg 2023 Active 2023 72756 17368 1 Every 8 hours as needed By Mouth False Lorazepam 0.5 mg tablet [generic] 0.5 mg By Mouth Every 8 hours as needed For Anxiety 0.5 mg 2023 Active 2023 17168 81129 0 Every 8 hours as needed By Mouth False Oxycodone 5 mg tablet [generic] 5 mg By Mouth Every 6 hours as needed For Back Pain 5 mg 2023 Active 2023 50465 11579 1 Every 6 hours as needed By Mouth False Senna 8.6 mg tablet 17.2 mg By Mouth Twice daily For Constipation 17.2 mg 2023 Active 2023 95027 41937 1 Twice daily By Mouth False Zyprexa 2.5 mg tablet 2.5 mg By Mouth At bedtime For persistent nausea 2.5 mg 2023 Active 2023 65000 90110 0 At bedtime By Mouth False MAGNESSIUM GLUCONATE 500mg By Mouth Every morning For Supplement 500mg 2023 Active 2023 Every morning By Mouth False Cipro 250 mg tablet 250 mg By Mouth Twice daily For UTI 250 mg 2023 Active 2023 90365 41063 1 Twice daily By Mouth False Motrin IB 200 mg tablet 600 mg By Mouth Every 12 hours As Needed For Pain 600 mg 2023 Active 2023 82590 08898 2 Every 12 hours By Mouth False Butrans 7.5 mcg/hour transdermal patch 1 patch Transdermal Every 7 Days For Pain 1 patch 2023 Active 2023 24969 28710 4 Every week Transd ermal False Tizanidine 2 mg tablet [generic] 2mg By Mouth At bedtime For Muscle spasms 2mg 2023 Active 2023 87291 81339 0 At bedtime By Mouth False Humalog [...] order For Steroid Therapy 2023 Active 2023 43273 86478 9 Twice daily Subcut aneous False Flomax 0.4 mg capsule 1 capsule By Mouth At bedtime For urinary retnetion 1 capsule 2023 Active 2023 39200 17173 1 At bedtime By Mouth False Cholecalcif hardeep (vitamin D3) 50 mcg (2,000 unit) tablet [generic] 50 mcg By Mouth Once daily For Supplement 50 mcg 2023 Active 2023 70509 85341 1 Once daily By Mouth False Colchicine 0.6 mg tablet [generic] 0.6 mg By Mouth Twice daily As Needed For Gout 0.6 mg 2023 Active 2023 28009 38021 4 Twice daily By Mouth False Levothyroxi ne 200 mcg tablet [generic] 200 mcg By Mouth Once daily For Hypothyroidis m 200 mcg 2023 Active 2023 34090 61020 0 Once daily By Mouth False Docusate sodium 100 mg capsule [generic] 100 mg By Mouth Twice daily For Constipation 100 mg 2023 Active 2023 21480 79031 1 Twice daily By Mouth False Pantoprazol e 40 mg tablet,nu yed release [generic] 40 mg By Mouth Twice daily For gerd 40 mg 2023 Active 2023 72378 13633 0 Twice daily By Mouth False Ondansetron 4 mg disintegrat ing tablet [generic] 4 mg By Mouth Every 8 hours For Nausea 4 mg 2023 Active 2023 13062 82586 4 Every 8 hours By Mouth False Pioglitazon e 15 mg tablet [generic] 7.5mg ( half a tab) By Mouth Once daily For TYPE 2 DIABETES MELLITUS WITHOUT COMPLICATIONS 7.5mg 2023 Active 2023 94520 29313 1 Once daily By Mouth E11.9 False Mylanta Coat-Cool 1,200 mg-270 mg-80 mg/10 mL oral suspension 10 ml By Mouth Every 8 hours As Needed For heartburn, indigestion, gas 10 ml 2023 Active 2023 55394 19122 1 Every 8 hours By Mouth False Prochlorper azine maleate 5 mg tablet [generic] 5 mg By Mouth Every 8 hours as needed For Nausea 5 mg 2023 Active 2023 79417 35035 1 Every 8 hours as needed By Mouth False Lorazepam 0.5 mg tablet [generic] 0.5 mg By Mouth Every 8 hours as needed For Anxiety 0.5 mg 2023 Active 2023 12909 11921 0 Every 8 hours as needed By Mouth False Oxycodone 5 mg tablet [generic] 5 mg By Mouth Every 6 hours as needed For Back Pain 5 mg 2023 Active 2023 51663 29703 1 Every 6 hours as needed By Mouth False Senna 8.6 mg tablet 17.2 mg By Mouth Twice daily For Constipation 17.2 mg 2023 Active 2023 19064 30227 1 Twice daily By Mouth False Zyprexa 2.5 mg tablet 2.5 mg By Mouth At bedtime For persistent nausea 2.5 mg 2023 Active 2023 47852 52611 0 At bedtime By Mouth False MAGNESSIUM GLUCONATE 500mg By Mouth Every morning For Supplement 500mg 2023 Active 2023 Every morning By Mouth False Cipro 250 mg tablet 250 mg By Mouth Twice daily For UTI 250 mg 2023 Active 2023 42961 91009 1 Twice daily By Mouth False Motrin IB 200 mg tablet 600 mg By Mouth Every 12 hours As Needed For Pain 600 mg 2023 Active 2023 41770 63845 2 Every 12 hours By Mouth False Butrans 7.5 mcg/hour transdermal patch 1 patch Transdermal Every 7 Days For Pain 1 patch 2023 Active 2023 44144 68097 4 Every week Transd ermal False Tizanidine 2 mg tablet [generic] 2mg By Mouth At bedtime For Muscle spasms 2mg 2023 Active 2023 23998 71998 0 At bedtime By Mouth False Humalog [...] order For Steroid Therapy 2023 Active 2023 97484 69780 9 Twice daily Subcut aneous False Flomax 0.4 mg capsule 1 capsule By Mouth At bedtime For urinary retnetion 1 capsule 2023 Active 2023 10675 29154 1 At bedtime By Mouth False Problems [...] unspecified 11/13/2023 Active E78.5 Hyperlipidemia, unspecified 11/13/2023 00 Active [...] Temperature SpO2 Blood Sugar Pulse Respirations 918 32475 5 75.00 mm[Hg] - Sitting 140.00 mm[Hg] - Sitting 65 NI 98.00 Tympanic 95.00 % 102.00 /min 18.00/min 918 17219 9 918 78414 2 75.00 mm[Hg] - Sitting 140.00 mm[Hg] - Sitting 98.00 Tympanic 102.00 /min 18.00/min 29921 918 63158 3 94504 918 56131 1 72.00 mm[Hg] - Sitting 138.00 mm[Hg] - Sitting 98.40 Tympanic 48956 918 42895 4 88.00/ min 18.00/min 60825 919 10985 4 71.00 mm[Hg] - Sitting 115.00 mm[Hg] - Sitting 98.30 Tympanic 97.00 % 86.00/ min 16.00/min 66671 919 94746 0 71.00 mm[Hg] - Sitting 115.00 mm[Hg] - Sitting 98.30 Tympanic 86.00/ min 16.00/min 38182 919 50811 7 71.00 mm[Hg] - Sitting 115.00 mm[Hg] - Sitting 98.30 Tympanic 86.00/ min 16.00/min 09760 920 38848 6 72.00 mm[Hg] - Sitting 112.00 mm[Hg] - Sitting 98.10 Tympanic 82.00/ min 18.00/min 72746 920 30794 0 75.00 mm[Hg] - Sitting 130.00 mm[Hg] - Sitting 98.40 Forehead Scan 93.00 % 88.00/ min 18.00/min 34625 920 24344 2 75.00 mm[Hg] - Lying Down 130.00 mm[Hg] - Lying Down 98.40 Tympanic 88.00/ min 18.00/min 64516 920 96876 5 75.00 mm[Hg] - Lying Down 130.00 mm[Hg] - Lying Down 98.40 Tympanic 88.00/ min 18.00/min 37222 920 02867 6 199.00 NI 39444 920 13980 3 75.00 mm[Hg] - Sitting 130.00 mm[Hg] - Sitting 98.40 Tympanic 88.00/ min 18.00/min 08871 921 68596 1 71.00 mm[Hg] - Lying Down 119.00 mm[Hg] - Lying Down 98.40 Forehead Scan 96.00 % 83.00/ min 16.00/min 11450 922 68231 6 71.00 mm[Hg] - Lying Down 128.00 mm[Hg] - Lying Down 98.30 Forehead Scan 94.00 % 84.00/ min 18.00/min 64149 923 85886 4 63.00 mm[Hg] - Sitting 105.00 mm[Hg] - Sitting 98.20 Tympanic 93.00 % 93.00/ min 18.00/min 38398 924 14286 8 66.00 mm[Hg] - Sitting 104.00 mm[Hg] - Sitting 98.20 Tympanic 98.00 % 84.00/ min 16.00/min 34572 925 45521 2 131.00 mg/dL 45803 925 36121 6 138.00 mg/dL 27221 926 81633 1 199.00 NI 35266 927 59343 7 98.40 Tympanic 88292 927 26090 0 78.00 mm[Hg] - Sitting 124.00 mm[Hg] - Sitting 98.30 Forehead Scan 95.00 % 83.00/ min 16.00/min 90691 927 05961 7 98.10 Tympanic 56114 928 18351 9 60.00 mm[Hg] - Sitting 99.00 mm[Hg] - Sitting 98.20 Tympanic 91.00 % 64.00/ min 16.00/min 18051 928 73043 0 98.40 Tympanic 55694 928 14797 0 235.00 mg/dL 14731 928 69865 2 98.30 Tympanic 90608 929 83571 0 159.00 mg/dL 29857 929 71718 1 98.10 Tympanic 54388 929 77765 5 97.90 Tympanic 69029 929 74688 1 72.00 mm[Hg] - Sitting 101.00 mm[Hg] - Sitting 97.90 Tympanic 92.00 % 65.00/ min 16.00/min
--- OUTSIDE RECORDS SUMMARY | 2023-12-13 23:53 | External Medical Summary | Continuity Of Care Document ---
Author Name Unknown Address [address] [place] [address] Organization [facility] () Care Team Providers [facility] Dean Name Role Phone DO Parson Amy Primary Care Provider [phone] Allergies Allergy Reaction Start Date End Date [...] 3 0.1 mL 11/13 Inactiv e 2023 39963 17214 0 1 time Intrad ermal False Tubersol 5 tub. unit/0.1 mL intradermal injection solution [Tuberculin PPD] 0.1mL Intradermal 1 time For PPD 2nd Step Give 2nd Step PPD Day 1 and Read results Day 3 (schedule 7 days after 1st READ) 0.1mL 11/13 Inactiv e 2023 80445 45302 0 1 time Intrad ermal False DISCONTINUE as of 11/14/2023: Tubersol 5 tub. unit/0.1 mL intradermal injection solution [Tuberculin PPD] 11/13 Inactiv e 2023 08996 53655 0 Tubersol 5 tub. unit/0.1 mL intradermal injection solution 0.1 mL Intradermal 1 time For PPD Step 1 GIVE on Day 1 and read results Day 3 0.1 mL 11/16 Inactiv e 2023 79945 58250 1 1 time Intrad ermal False DISCONTINUE as of 11/14/2023: Tubersol 5 tub. unit/0.1 mL intradermal injection solution [Tuberculin PPD] 11/13 Inactiv e 2023 29611 21032 0 Tubersol 5 tub. unit/0.1 mL intradermal injection solution 0.1mL Intradermal 1 time For PPD 2nd Step Give 2nd Step PPD Day 1 and Read results Day 3 (schedule 7 days after 1st READ) 0.1mL 11/25 Active 2023 32209 22241 1 1 time Intrad ermal False Tylenol 325 mg tablet 2 tabs By Mouth Every 4 hours as needed For Pain DO NOT EXCEED 3000 MG APAP/24 Hours 2 tabs 202300 /0000 Active 2023 70335 93085 0 Every 4 hours as needed By Mouth False Tylenol 325 mg tablet 2 tabs By Mouth Every 4 hours as needed For Fever >100 DO NOT EXCEED 3000 MG APAP/24 Hours 2 tabs 202300 /0000 Active 2023 85813 09041 0 Every 4 hours as needed By Mouth False Dulcolax (bisacodyl) 10 mg rectal suppository One Suppository per rectum PRN if Milk of Magnisia ineffective. Give on day 5 of no BM 1 sup 2023 Active 2023 94852 53688 1 Daily as needed Rectal False Fleet Enema 19 gram-7 gram/118 mL Administer per rectum PRN one time if dulcolax suppository not effective. Give on day 6 of no BM 1 202300 0000 Active 2023 98242 30891 6 Daily as needed Rectal False Dextrose 50 % in water (D50W) intravenous solution [generic] Dextrose 50% reyes 20-50 ml (slow push) Intravenous if Glucagon not effective after 15 minutes. CALL 911 for ED Evaluation. 50% reyes 202300 /0000 Active 2023 23395 85544 9 Intrav enous False Glucagon (HCl) Emergency Kit 1 mg solution for injection Administer Glucagon 1 mg Intramuscular if 15 minutes after GLucose Gel is administered Glucose remains less than 70 1 mg 2023 Active 2023 18358 91670 2 Intram uscula r False Glucose Gel 40 % oral gel [Dextrose] PRN If resident is unable to swallow (with or without symptoms) and Glucose results less than 70 give GLucose 40% Gel 1 tube orally - Recheck Glucose 15 minutes after administratio n. 1 tube 2023 Active 2023 42143 55188 8 By Mouth False Lorazepam 0.5 mg tablet [generic] 0.5 mg By Mouth Every 8 hours as needed For Anxiety 0.5 mg 11/18 Inactiv e 2023 02082 31913 0 Every 8 hours as needed By Mouth False Potassium chloride ER 20 mEq tablet,exte nded release [generic] 40 meq By Mouth Once daily For Hypokalemia 40 meq 11/13 Inactiv e 2023 76306 42260 1 Once daily By Mouth False Colesevelam 625 mg tablet [generic] 1250 mg By Mouth Twice daily For TYPE 2 DIABETES MELLITUS WITHOUT COMPLICATIONS 1250 mg 11/19 Inactiv e 2023 78175 77937 1 Twice daily By Mouth E11.9 False Pioglitazon e 15 mg tablet [generic] 15 mg By Mouth Once daily For TYPE 2 DIABETES MELLITUS WITHOUT COMPLICATIONS 15 mg 11/14 Inactiv e 2023 85686 59058 1 Once daily By Mouth E11.9 False Cholecalcif hardeep (vitamin D3) 50 mcg (2,000 unit) tablet [generic] 50 mcg By Mouth Once daily For Supplement 50 mcg 2023 Active 2023 00155 77577 1 Once daily By Mouth False Colchicine 0.6 mg tablet [generic] 0.6 mg By Mouth Twice daily As Needed For Gout 0.6 mg 2023 Active 2023 75068 66979 4 Twice daily By Mouth False Levothyroxi ne 200 mcg tablet [generic] 200 mcg By Mouth Once daily For Hypothyroidis m 200 mcg 202300 0000 Active 2023 76253 98183 0 Once daily By Mouth False Ondansetron 4 mg disintegrat ing tablet [generic] 4 mg By Mouth Every 6 hours as needed For Nausea 4 mg 11/12 Inactiv e 2023 97482 08926 4 Every 6 hours as needed By Mouth False Docusate sodium 100 mg capsule [generic] 100 mg By Mouth Twice daily For Constipation 100 mg 202300 0000 Active 2023 40093 65352 1 Twice daily By Mouth False Oxycodone 5 mg tablet [generic] 5 mg By Mouth Every 6 hours as needed For Pain 5 mg 11/12 Inactiv e 2023 00022 27475 1 Every 6 hours as needed By Mouth False Oxycodone 5 mg tablet [generic] 5 mg By Mouth Every 6 hours as needed For Pain 5 mg 11/18 Inactiv e 2023 89665 98156 1 Every 6 hours as needed By Mouth False Milk of Magnesia 400 mg/5 mL oral suspension 30 ml By Mouth one time per day as needed if no BM x 3 days For Constipation 30 ml 202300 Active 2023 07232 47595 2 By Mouth False Ondansetron 4 mg disintegrat ing tablet [generic] 11/12 Inactiv e 2023 61616 36544 4 Ondansetron 4 mg disintegrat ing tablet [generic] 4 mg By Mouth Every 6 hours as needed For Nausea 4 mg 11/14 Inactiv e 2023 46711 23248 4 Every 6 hours as needed By Mouth False Potassium chloride ER 10 mEq capsule,ext ended release [generic] 40 mEq By Mouth Once daily For hypokalemia 40 mEq 11/17 Inactiv e 2023 88374 28865 1 Once daily By Mouth False Potassium chloride ER 10 mEq capsule,ext ended release [generic] 4 capsules By Mouth At bedtime For hypokalemia 4 capsule s 11/16 Inactiv e 2023 73156 69253 1 At bedtime By Mouth False Flomax 0.4 mg capsule 0.4 mg By Mouth At bedtime For Urinary retention 0.4 mg 11/18 Inactiv e 2023 29469 20068 1 At bedtime By Mouth False STOOL CULTURE Once daily Obtain stool culture, add C. Diff to routine stool culture For Rule out C. Diff 1x 2023 Active 2023 Once daily Other False Butrans 5 mcg/hour transdermal patch 1 patch Transdermal Every 7 Days For Pain 1 patch 11/20 Inactiv e 2023 58408 97150 4 Every week Transd ermal False Pantoprazol e 40 mg tablet,nu yed release [generic] 40 mg By Mouth Twice daily For gerd 40 mg 2023 Active 2023 69987 25472 0 Twice daily By Mouth False Scopolamine 1 mg over 3 days transdermal patch [generic] 1 Transdermal Every 72 hours For nausea 1 11/20 Inactiv e 2023 30156 84358 4 Every 72 hours Transd ermal False Ondansetron 4 mg disintegrat ing tablet [generic] 11/14 Inactiv e 2023 69512 16000 4 Ondansetron 4 mg disintegrat ing tablet [generic] 4 mg By Mouth Every 8 hours For Nausea 4 mg 2023 Active 2023 64712 53940 4 Every 8 hours By Mouth False Miralax 17 gram oral powder packet 8.5 g (1/2 capful) By Mouth Once daily For constipation 8.5 g 11/18 Inactiv e 2023 26098 47991 6 Once daily By Mouth False Pioglitazon e 15 mg tablet [generic] 11/14 Inactiv e 2023 31253 62340 1 E11.9 Pioglitazon e 15 mg tablet [generic] 7.5mg ( half a tab) By Mouth Once daily For TYPE 2 DIABETES MELLITUS WITHOUT COMPLICATIONS 7.5mg 2023 Active 2023 98690 01525 1 Once daily By Mouth E11.9 False Mylanta Coat-Cool 1,200 mg-270 mg-80 mg/10 mL oral suspension 10 ml By Mouth Every 8 hours As Needed For heartburn, indigestion, gas 10 ml 2023 Active 2023 26140 80054 1 Every 8 hours By Mouth False Prochlorper azine maleate 5 mg tablet [generic] 5 mg By Mouth Every 8 hours as needed For Nausea 5 mg 2023 Active 2023 09028 73433 1 Every 8 hours as needed By Mouth False Potassium chloride ER 10 mEq capsule,ext ended release [generic] 10 meq By Mouth 4 times a day For Hypokalemia 10 meq 11/20 Inactiv e 2023 44305 32071 1 4 times a day By Mouth False Lorazepam 0.5 mg tablet [generic] 11/18 Inactiv e 2023 45711 75425 0 Lorazepam 0.5 mg tablet [generic] 0.5 mg By Mouth Every 8 hours as needed For Anxiety 0.5 mg 12/18 Active 2023 59064 42595 0 Every 8 hours as needed By Mouth False Flomax 0.4 mg capsule 11/18 Inactiv e 2023 77742 69691 1 Flomax 0.4 mg capsule 0.4 mg By Mouth Once daily For Urinary retention 0.4 mg 11/19 Inactiv e 2023 76192 41143 1 Once daily By Mouth False Oxycodone 5 mg tablet [generic] 11/18 Inactiv e 2023 47972 63536 1 Oxycodone 5 mg tablet [generic] 5 mg By Mouth Every 6 hours as needed For Back Pain 5 mg 2023 Active 2023 30363 51371 1 Every 6 hours as needed By Mouth False Cipro 250 mg tablet 250 mg By Mouth Twice daily For UTI 250 mg 11/19 Inactiv e 2023 36632 19241 1 Twice daily By Mouth False Senna 8.6 mg tablet 17.2 mg By Mouth Twice daily For Constipation 17.2 mg 2023 Active 2023 31097 83935 1 Twice daily By Mouth False Zyprexa 2.5 mg tablet 2.5 mg By Mouth At bedtime For persistent nausea 2.5 mg 2023 Active 2023 80435 73101 0 At bedtime By Mouth False MAGNESSIUM GLUCONATE 500mg By Mouth Every morning For Supplement 500mg 2023 Active 2023 Every morning By Mouth False Cipro 250 mg tablet 11/19 Inactiv e 2023 67473 28352 1 Cipro 250 mg tablet 250 mg By Mouth Twice daily For UTI 250 mg 11/26 Active 2023 23047 71756 1 Twice daily By Mouth False Flomax 0.4 mg capsule 11/19 Inactiv e 2023 60875 62494 1 Flomax 0.4 mg capsule 0.4 mg By Mouth Once daily For Urinary retention 0.4 mg 11/20 Inactiv e 2023 06672 55367 1 Once daily By Mouth False Motrin IB 200 mg tablet 600 mg By Mouth Every 12 hours As Needed For Pain 600 mg 11/20 Inactiv e 2023 91626 06062 2 Every 12 hours By Mouth False Motrin IB 200 mg tablet 600 mg By Mouth Every 12 hours As Needed For Pain 600 mg 11/20 Inactiv e 2023 52010 45077 2 Every 12 hours By Mouth False Motrin IB 200 mg tablet 600 mg By Mouth Every 12 hours As Needed For Pain 600 mg 11/27 Active 2023 24916 25749 2 Every 12 hours By Mouth False Flomax 0.4 mg capsule 0.4 mg By Mouth Once daily For Urinary retention 0.4 mg 11/21 Inactiv e 2023 23733 31812 1 Once daily By Mouth False Scopolamine 1 mg over 3 days transdermal patch [generic] 1 Transdermal Every 72 hours For nausea 1 11/22 Inactiv e 2023 01251 74436 4 Every 72 hours Transd ermal False Butrans 7.5 mcg/hour transdermal patch 1 patch Transdermal Every 7 Days For Pain 1 patch 202300 0000 Active 2023 99315 21441 4 Every week Transd ermal False Tizanidine 2 mg tablet [generic] 2mg By Mouth At bedtime For Muscle spasms 2mg 202300 /0000 Active 2023 93589 62939 0 At bedtime By Mouth False Prednisone 20 mg tablet [generic] 60 mg By Mouth 1 time For Sciatica Pain 60 mg 11/22 Inactiv e 2023 33285 41378 1 1 time By Mouth False Prednisone 20 mg tablet [generic] 40mg By Mouth 1 time For Sciatica Pain 40mg 11/23 Inactiv e 2023 27668 90237 1 1 time By Mouth False Prednisone 20 mg tablet [generic] 20mg By Mouth 1 time For Sciatica 20mg 11/24 Inactiv e 2023 85094 78831 1 1 time By Mouth False ACCU [...] order For Steroid Therapy 11/28 Active 2023 77171 89498 9 Twice daily Subcut aneous False Flomax 0.4 mg capsule 1 capsule By Mouth At bedtime For urinary retnetion 1 capsule 12/24 Active 2023 98775 62002 1 At bedtime By Mouth False Problems [...] weight Temperature SpO2 Blood Sugar Pulse Respirations 16939 5 75.00 mm[Hg] - Sitting 140.00 mm[Hg] - Sitting 65 NI 98.00 Tympanic 95.00 % 102.00 /min 18.00/min 16641 918 29635 9 25794 918 68665 2 75.00 mm[Hg] - Sitting 140.00 mm[Hg] - Sitting 98.00 Tympanic 102.00 /min 18.00/min 61591 918 64592 3 44313 918 27528 1 72.00 mm[Hg] - Sitting 138.00 mm[Hg] - Sitting 98.40 Tympanic 918 12680 4 88.00/ min 18.00/min 919 02719 4 71.00 mm[Hg] - Sitting 115.00 mm[Hg] - Sitting 98.30 Tympanic 97.00 % 86.00/ min 16.00/min 57516 919 52202 0 71.00 mm[Hg] - Sitting 115.00 mm[Hg] - Sitting 98.30 Tympanic 86.00/ min 16.00/min 85187 919 26450 7 71.00 mm[Hg] - Sitting 115.00 mm[Hg] - Sitting 98.30 Tympanic 86.00/ min 16.00/min 63459 920 49164 6 72.00 mm[Hg] - Sitting 112.00 mm[Hg] - Sitting 98.10 Tympanic 82.00/ min 18.00/min 22391 920 00597 0 75.00 mm[Hg] - Sitting 130.00 mm[Hg] - Sitting 98.40 Forehead Scan 93.00 % 88.00/ min 18.00/min 14870 920 21509 2 75.00 mm[Hg] - Lying Down 130.00 mm[Hg] - Lying Down 98.40 Tympanic 88.00/ min 18.00/min 31503 920 03949 5 75.00 mm[Hg] - Lying Down 130.00 mm[Hg] - Lying Down 98.40 Tympanic 88.00/ min 18.00/min 75197 920 09120 6 199.00 NI [address]11 920 11504 3 75.00 mm[Hg] - Sitting 130.00 mm[Hg] - Sitting 98.40 Tympanic 88.00/ min 18.00/min 72745 921 36295 1 71.00 mm[Hg] - Lying Down 119.00 mm[Hg] - Lying Down 98.40 Forehead Scan 96.00 % 83.00/ min 16.00/min 11532 922 93172 6 71.00 mm[Hg] - Lying Down 128.00 mm[Hg] - Lying Down 98.30 Forehead Scan 94.00 % 84.00/ min 18.00/min 24050 923 95858 4 63.00 mm[Hg] - Sitting 105.00 mm[Hg] - Sitting 98.20 Tympanic 93.00 % 93.00/ min 18.00/min 24105 924 89932 8 66.00 mm[Hg] - Sitting 104.00 mm[Hg] - Sitting 98.20 Tympanic 98.00 % 84.00/ min 16.00/min 83504 925 59060 2 131.00 mg/dL 74730 925 57945 6 138.00 mg/dL 36265 926 78364 1 199.00 NI 40912 927 41544 7 98.40 Tympanic 27025 927 99620 0 78.00 mm[Hg] - Sitting 124.00 mm[Hg] - Sitting 98.30 Forehead Scan 95.00 % 83.00/ min 16.00/min 56427 927 14503 7 98.10 Tympanic 01423 928 46636 9 60.00 mm[Hg] - Sitting 99.00 mm[Hg] - Sitting 98.20 Tympanic 91.00 % 64.00/ min 16.00/min 10502 928 27164 0 98.40 Tympanic 04561 928 28336 0 235.00 mg/dL 52925 928 47761 2 98.30 Tympanic 21977 929 93791 0 159.00 mg/dL 97517 929 13711 1 98.10 Tympanic 58687 929 88390 5 97.90 Tympanic 42502 929 14197 1 72.00 mm[Hg] - Sitting 101.00 mm[Hg] - Sitting 97.90 Tympanic 92.00 % 65.00/ min 16.00/min
--- OUTSIDE RECORDS SUMMARY | 2023-12-13 23:53 | External Medical Summary | Continuity Of Care Document ---
Author Name Unknown Address [address] [place] [address] Organization [facility] () Care Team Providers Care Multimedia Programmer Name Role Phone DO Parson Amy Primary Care Provider [phone] Allergies Allergy Reaction Start Date End Date [...] 3 0.1 mL 11/13 Inactiv e 2023 32492 72460 0 1 time Intrad ermal False Tubersol 5 tub. unit/0.1 mL intradermal injection solution [Tuberculin PPD] 0.1mL Intradermal 1 time For PPD 2nd Step Give 2nd Step PPD Day 1 and Read results Day 3 (schedule 7 days after 1st READ) 0.1mL 11/13 Inactiv e 2023 61706 24337 0 1 time Intrad ermal False DISCONTINUE as of 11/14/2023: Tubersol 5 tub. unit/0.1 mL intradermal injection solution [Tuberculin PPD] 11/13 Inactiv e 2023 91360 79047 0 Tubersol 5 tub. unit/0.1 mL intradermal injection solution 0.1 mL Intradermal 1 time For PPD Step 1 GIVE on Day 1 and read results Day 3 0.1 mL 11/16 Inactiv e 2023 99232 69431 1 1 time Intrad ermal False DISCONTINUE as of 11/14/2023: Tubersol 5 tub. unit/0.1 mL intradermal injection solution [Tuberculin PPD] 11/13 Inactiv e 2023 59461 75634 0 Tubersol 5 tub. unit/0.1 mL intradermal injection solution 0.1mL Intradermal 1 time For PPD 2nd Step Give 2nd Step PPD Day 1 and Read results Day 3 (schedule 7 days after 1st READ) 0.1mL 11/25 Active 2023 07464 25856 1 1 time Intrad ermal False Tylenol 325 mg tablet 2 tabs By Mouth Every 4 hours as needed For Pain DO NOT EXCEED 3000 MG APAP/24 Hours 2 tabs 202300 /0000 Active 2023 72384 07929 0 Every 4 hours as needed By Mouth False Tylenol 325 mg tablet 2 tabs By Mouth Every 4 hours as needed For Fever >100 DO NOT EXCEED 3000 MG APAP/24 Hours 2 tabs 202300 /0000 Active 2023 32429 27110 0 Every 4 hours as needed By Mouth False Dulcolax (bisacodyl) 10 mg rectal suppository One Suppository per rectum PRN if Milk of Magnisia ineffective. Give on day 5 of no BM 1 sup 2023 Active 2023 06327 90899 1 Daily as needed Rectal False Fleet Enema 19 gram-7 gram/118 mL Administer per rectum PRN one time if dulcolax suppository not effective. Give on day 6 of no BM 1 202300 0000 Active 2023 66783 05373 6 Daily as needed Rectal False Dextrose 50 % in water (D50W) intravenous solution [generic] Dextrose 50% reyes 20-50 ml (slow push) Intravenous if Glucagon not effective after 15 minutes. CALL 911 for ED Evaluation. 50% reyes 202300 /0000 Active 2023 01945 82179 9 Intrav enous False Glucagon (HCl) Emergency Kit 1 mg solution for injection Administer Glucagon 1 mg Intramuscular if 15 minutes after GLucose Gel is administered Glucose remains less than 70 1 mg 2023 Active 2023 90830 61106 2 Intram uscula r False Glucose Gel 40 % oral gel [Dextrose] PRN If resident is unable to swallow (with or without symptoms) and Glucose results less than 70 give GLucose 40% Gel 1 tube orally - Recheck Glucose 15 minutes after administratio n. 1 tube 2023 Active 2023 97245 34722 8 By Mouth False Lorazepam 0.5 mg tablet [generic] 0.5 mg By Mouth Every 8 hours as needed For Anxiety 0.5 mg 11/18 Inactiv e 2023 79425 92447 0 Every 8 hours as needed By Mouth False Potassium chloride ER 20 mEq tablet,exte nded release [generic] 40 meq By Mouth Once daily For Hypokalemia 40 meq 11/13 Inactiv e 2023 45109 74832 1 Once daily By Mouth False Colesevelam 625 mg tablet [generic] 1250 mg By Mouth Twice daily For TYPE 2 DIABETES MELLITUS WITHOUT COMPLICATIONS 1250 mg 11/19 Inactiv e 2023 33005 86083 1 Twice daily By Mouth E11.9 False Pioglitazon e 15 mg tablet [generic] 15 mg By Mouth Once daily For TYPE 2 DIABETES MELLITUS WITHOUT COMPLICATIONS 15 mg 11/14 Inactiv e 2023 39259 61476 1 Once daily By Mouth E11.9 False Cholecalcif hardeep (vitamin D3) 50 mcg (2,000 unit) tablet [generic] 50 mcg By Mouth Once daily For Supplement 50 mcg 2023 Active 2023 38312 37845 1 Once daily By Mouth False Colchicine 0.6 mg tablet [generic] 0.6 mg By Mouth Twice daily As Needed For Gout 0.6 mg 2023 Active 2023 83796 44232 4 Twice daily By Mouth False Levothyroxi ne 200 mcg tablet [generic] 200 mcg By Mouth Once daily For Hypothyroidis m 200 mcg 202300 0000 Active 2023 92474 83302 0 Once daily By Mouth False Ondansetron 4 mg disintegrat ing tablet [generic] 4 mg By Mouth Every 6 hours as needed For Nausea 4 mg 11/12 Inactiv e 2023 46359 09077 4 Every 6 hours as needed By Mouth False Docusate sodium 100 mg capsule [generic] 100 mg By Mouth Twice daily For Constipation 100 mg 202300 0000 Active 2023 81870 32512 1 Twice daily By Mouth False Oxycodone 5 mg tablet [generic] 5 mg By Mouth Every 6 hours as needed For Pain 5 mg 11/12 Inactiv e 2023 08294 56973 1 Every 6 hours as needed By Mouth False Oxycodone 5 mg tablet [generic] 5 mg By Mouth Every 6 hours as needed For Pain 5 mg 11/18 Inactiv e 2023 77175 53662 1 Every 6 hours as needed By Mouth False Milk of Magnesia 400 mg/5 mL oral suspension 30 ml By Mouth one time per day as needed if no BM x 3 days For Constipation 30 ml 202300 Active 2023 13779 95766 2 By Mouth False Ondansetron 4 mg disintegrat ing tablet [generic] 11/12 Inactiv e 2023 38517 03344 4 Ondansetron 4 mg disintegrat ing tablet [generic] 4 mg By Mouth Every 6 hours as needed For Nausea 4 mg 11/14 Inactiv e 2023 82072 91299 4 Every 6 hours as needed By Mouth False Potassium chloride ER 10 mEq capsule,ext ended release [generic] 40 mEq By Mouth Once daily For hypokalemia 40 mEq 11/17 Inactiv e 2023 83355 07523 1 Once daily By Mouth False Potassium chloride ER 10 mEq capsule,ext ended release [generic] 4 capsules By Mouth At bedtime For hypokalemia 4 capsule s 11/16 Inactiv e 2023 80772 80929 1 At bedtime By Mouth False Flomax 0.4 mg capsule 0.4 mg By Mouth At bedtime For Urinary retention 0.4 mg 11/18 Inactiv e 2023 28028 87727 1 At bedtime By Mouth False STOOL CULTURE Once daily Obtain stool culture, add C. Diff to routine stool culture For Rule out C. Diff 1x 2023 Active 2023 Once daily Other False Butrans 5 mcg/hour transdermal patch 1 patch Transdermal Every 7 Days For Pain 1 patch 11/20 Inactiv e 2023 43579 77704 4 Every week Transd ermal False Pantoprazol e 40 mg tablet,nu yed release [generic] 40 mg By Mouth Twice daily For gerd 40 mg 2023 Active 2023 01631 86022 0 Twice daily By Mouth False Scopolamine 1 mg over 3 days transdermal patch [generic] 1 Transdermal Every 72 hours For nausea 1 11/20 Inactiv e 2023 58413 79951 4 Every 72 hours Transd ermal False Ondansetron 4 mg disintegrat ing tablet [generic] 11/14 Inactiv e 2023 09281 45858 4 Ondansetron 4 mg disintegrat ing tablet [generic] 4 mg By Mouth Every 8 hours For Nausea 4 mg 2023 Active 2023 12655 26932 4 Every 8 hours By Mouth False Miralax 17 gram oral powder packet 8.5 g (1/2 capful) By Mouth Once daily For constipation 8.5 g 11/18 Inactiv e 2023 34836 27857 6 Once daily By Mouth False Pioglitazon e 15 mg tablet [generic] 11/14 Inactiv e 2023 57869 39648 1 E11.9 Pioglitazon e 15 mg tablet [generic] 7.5mg ( half a tab) By Mouth Once daily For TYPE 2 DIABETES MELLITUS WITHOUT COMPLICATIONS 7.5mg 2023 Active 2023 65706 32912 1 Once daily By Mouth E11.9 False Mylanta Coat-Cool 1,200 mg-270 mg-80 mg/10 mL oral suspension 10 ml By Mouth Every 8 hours As Needed For heartburn, indigestion, gas 10 ml 2023 Active 2023 03123 16021 1 Every 8 hours By Mouth False Prochlorper azine maleate 5 mg tablet [generic] 5 mg By Mouth Every 8 hours as needed For Nausea 5 mg 2023 Active 2023 89604 61396 1 Every 8 hours as needed By Mouth False Potassium chloride ER 10 mEq capsule,ext ended release [generic] 10 meq By Mouth 4 times a day For Hypokalemia 10 meq 11/20 Inactiv e 2023 29245 88180 1 4 times a day By Mouth False Lorazepam 0.5 mg tablet [generic] 11/18 Inactiv e 2023 28455 49176 0 Lorazepam 0.5 mg tablet [generic] 0.5 mg By Mouth Every 8 hours as needed For Anxiety 0.5 mg 12/18 Active 2023 59070 22255 0 Every 8 hours as needed By Mouth False Flomax 0.4 mg capsule 11/18 Inactiv e 2023 46524 15125 1 Flomax 0.4 mg capsule 0.4 mg By Mouth Once daily For Urinary retention 0.4 mg 11/19 Inactiv e 2023 76776 55534 1 Once daily By Mouth False Oxycodone 5 mg tablet [generic] 11/18 Inactiv e 2023 61186 45633 1 Oxycodone 5 mg tablet [generic] 5 mg By Mouth Every 6 hours as needed For Back Pain 5 mg 2023 Active 2023 80689 54658 1 Every 6 hours as needed By Mouth False Cipro 250 mg tablet 250 mg By Mouth Twice daily For UTI 250 mg 11/19 Inactiv e 2023 89627 55275 1 Twice daily By Mouth False Senna 8.6 mg tablet 17.2 mg By Mouth Twice daily For Constipation 17.2 mg 2023 Active 2023 96916 66544 1 Twice daily By Mouth False Zyprexa 2.5 mg tablet 2.5 mg By Mouth At bedtime For persistent nausea 2.5 mg 2023 Active 2023 62788 02510 0 At bedtime By Mouth False MAGNESSIUM GLUCONATE 500mg By Mouth Every morning For Supplement 500mg 2023 Active 2023 Every morning By Mouth False Cipro 250 mg tablet 11/19 Inactiv e 2023 55152 25043 1 Cipro 250 mg tablet 250 mg By Mouth Twice daily For UTI 250 mg 11/26 Active 2023 23877 58282 1 Twice daily By Mouth False Flomax 0.4 mg capsule 11/19 Inactiv e 2023 39314 93050 1 Flomax 0.4 mg capsule 0.4 mg By Mouth Once daily For Urinary retention 0.4 mg 11/20 Inactiv e 2023 17105 38756 1 Once daily By Mouth False Motrin IB 200 mg tablet 600 mg By Mouth Every 12 hours As Needed For Pain 600 mg 11/20 Inactiv e 2023 11687 62018 2 Every 12 hours By Mouth False Motrin IB 200 mg tablet 600 mg By Mouth Every 12 hours As Needed For Pain 600 mg 11/20 Inactiv e 2023 31723 57511 2 Every 12 hours By Mouth False Motrin IB 200 mg tablet 600 mg By Mouth Every 12 hours As Needed For Pain 600 mg 11/27 Active 2023 29189 07313 2 Every 12 hours By Mouth False Flomax 0.4 mg capsule 0.4 mg By Mouth Once daily For Urinary retention 0.4 mg 11/21 Inactiv e 2023 07234 37866 1 Once daily By Mouth False Scopolamine 1 mg over 3 days transdermal patch [generic] 1 Transdermal Every 72 hours For nausea 1 11/22 Inactiv e 2023 36411 93597 4 Every 72 hours Transd ermal False Butrans 7.5 mcg/hour transdermal patch 1 patch Transdermal Every 7 Days For Pain 1 patch 202300 0000 Active 2023 06763 21083 4 Every week Transd ermal False Tizanidine 2 mg tablet [generic] 2mg By Mouth At bedtime For Muscle spasms 2mg 202300 0000 Active 2023 42850 33718 0 At bedtime By Mouth False Prednisone 20 mg tablet [generic] 60 mg By Mouth 1 time For Sciatica Pain 60 mg 11/22 Inactiv e 2023 47563 12851 1 1 time By Mouth False Prednisone 20 mg tablet [generic] 40mg By Mouth 1 time For Sciatica Pain 40mg 11/23 Inactiv e 2023 46597 57292 1 1 time By Mouth False Prednisone 20 mg tablet [generic] 20mg By Mouth 1 time For Sciatica 20mg 11/24 Active 2023 08772 47537 1 1 time By Mouth False ACCU [...] order For Steroid Therapy 11/28 Active 2023 25203 60750 9 Twice daily Subcut aneous False Problems [...] Temperature SpO2 Blood Sugar Pulse Respirations 8 55435 5 75.00 mm[Hg] - Sitting 140.00 mm[Hg] - Sitting 65 NI 98.00 Tympanic 95.00 % 102.00 /min 18.00/min 918 80747 9 918 75675 2 75.00 mm[Hg] - Sitting 140.00 mm[Hg] - Sitting 98.00 Tympanic 102.00 /min 18.00/min 918 93150 3 99579 918 30837 1 72.00 mm[Hg] - Sitting 138.00 mm[Hg] - Sitting 98.40 Tympanic 8 35436 4 88.00/ min 18.00/min 919 63861 4 71.00 mm[Hg] - Sitting 115.00 mm[Hg] - Sitting 98.30 Tympanic 97.00 % 86.00/ min 16.00/min 83727 919 56220 0 71.00 mm[Hg] - Sitting 115.00 mm[Hg] - Sitting 98.30 Tympanic 86.00/ min 16.00/min 09807 919 89235 7 71.00 mm[Hg] - Sitting 115.00 mm[Hg] - Sitting 98.30 Tympanic 86.00/ min 16.00/min 31598 920 48971 6 72.00 mm[Hg] - Sitting 112.00 mm[Hg] - Sitting 98.10 Tympanic 82.00/ min 18.00/min 920 56820 0 75.00 mm[Hg] - Sitting 130.00 mm[Hg] - Sitting 98.40 Forehead Scan 93.00 % 88.00/ min 18.00/min 79084 920 80784 2 75.00 mm[Hg] - Lying Down 130.00 mm[Hg] - Lying Down 98.40 Tympanic 88.00/ min 18.00/min 19036 920 31770 5 75.00 mm[Hg] - Lying Down 130.00 mm[Hg] - Lying Down 98.40 Tympanic 88.00/ min 18.00/min 920 67087 6 199.00 NI 920 82522 3 75.00 mm[Hg] - Sitting 130.00 mm[Hg] - Sitting 98.40 Tympanic 88.00/ min 18.00/min 16398 921 81972 1 71.00 mm[Hg] - Lying Down 119.00 mm[Hg] - Lying Down 98.40 Forehead Scan 96.00 % 83.00/ min 16.00/min 51743 922 46039 6 71.00 mm[Hg] - Lying Down 128.00 mm[Hg] - Lying Down 98.30 Forehead Scan 94.00 % 84.00/ min 18.00/min 74240 923 30869 4 63.00 mm[Hg] - Sitting 105.00 mm[Hg] - Sitting 98.20 Tympanic 93.00 % 93.00/ min 18.00/min 43034 924 81663 8 66.00 mm[Hg] - Sitting 104.00 mm[Hg] - Sitting 98.20 Tympanic 98.00 % 84.00/ min 16.00/min 80596 925 85017 2 131.00 mg/dL 23227 925 28754 6 138.00 mg/dL 80284 926 40835 1 199.00 [place] [address] 927 58546 7 98.40 Tympanic 97205 927 89846 0 78.00 mm[Hg] - Sitting 124.00 mm[Hg] - Sitting 98.30 Forehead Scan 95.00 % 83.00/ min 16.00/min 21681 927 59424 7 98.10 Tympanic 32995 928 05815 9 60.00 mm[Hg] - Sitting 99.00 mm[Hg] - Sitting 98.20 Tympanic 91.00 % 64.00/ min 16.00/min 11117 928 84422 0 98.40 Tympanic 45660 928 94694 0 235.00 mg/dL 32996 928 73809 2 98.30 Tympanic 85227 929 29637 0 159.00 mg/dL 44480 929 28217 1 98.10 Tympanic 56383 929 17312 5 97.90 Tympanic 90603 929 03777 1 72.00 mm[Hg] - Sitting 101.00 mm[Hg] - Sitting 97.90 Tympanic 92.00 % 65.00/ min 16.00/min
--- OUTSIDE RECORDS SUMMARY | 2023-12-13 23:53 | External Medical Summary | Summary of Care ---
Author Name Unknown Organization [facility] Address [address] [place] [facility] [place] [address] Phone [phone] Care Team Providers Care Civil Engineer Name Role Phone Jadyn Johnson DO Primary Care Provider [phone] Reason for Visit * Reason Onset Date Comments Home Health 11/26/2023 Encounter Details Date Type Department Care Team (Late st Contact Info) Description 11/26/2023 Telephone Family Practice [facility] [place] [address] [facility] [place] [address] [facility] [address] [facility] [address] [facility] Allergies Active Allergy Reactions Criticality Noted Date Comments Gabapentin 05/16/2023 hallucinations Sulfa Antibiotics Rash Low 08/07/2012 documented as of this encounter (statuses as of 11/26/2023) Medications Medication Sig Dispensed Refills Start Date [...] as of this encounter (statuses as of 11/26/2023) Active Problems Problem Noted Date Diagnosed Date [...] as of this encounter (statuses as of 11/26/2023) Resolved Problems Problem Noted Date Diagnosed Date [...] as of this encounter (statuses as of 11/26/2023) Immunizations Name Administration Dates Next Due COVID-19 [...] encounter Miscellaneous Notes * Telephone Encounter - Mana Resendez LPN - 11/26/2023 8:17 AM EDT Admission/Start of Care Admission/Start of Care: Radha Hutchins, Calling from: Katelyn Patient was Admitted to: [facility] for: L1-L2 compression fx with Kyphoplasty from 11/13/23 to 11/25/23 Referral ordered by: Nanoscience Technician Referral received for: Residential, PT, and OT Planned start of care date:Yes, Date within 48 hours Last Office Visit: 09/13/2023 Has patient been scheduled or seen in the office for a follow up visit: Yes- on 11/29/23 Advised that orders will be signed by Jadyn Johnson DO and to fax to the office for signature. documented in this encounter Plan of Treatment Upcoming Encounters Date Type Department Care Team (Latest Contact Info) Description 11/29/2023 11:00 AM EDT Office Visit Family [facility] [address] [place] [address] Jadyn Johnson DO [address] [place] [address] 12/25/2023 1:45 PM EDT Hospital Encounter [facility], Operating Room [facility] [address] [place] [phone] Ozzy Griggs, DO [address] [place] [phone] 12/25/2023 1:45 PM EDT - 12/25/2023 2:10 PM EDT Surgery OR [facility], Operating Room [facility] [address] [place] [id number] Ozzy Griggs, DO [address] [place] [id number] INJECTION SACROILIAC JOINT 01/06/2024 4:20 PM EST Office Visit [facility] [address] [place] [address] Jadyn Johnson DO [address] [place] [address] Scheduled Procedures Name Priority Associated Diagnoses Date/Ti [...] 09/15/2026 09/16/2019, 09/16/2019 Lipid Panel 06/12/2028 06/13/2023, 0 07/2022, 06/29/2022, Additional history exists Colonoscopy 04/03/2029 [...] filedocumented as of this encounter Care Teams Civil Engineer Relationship Specialty Start Date End Date Jadyn Johnson DO [address] [facility] [place] [address] PCP - General Family Medicine 02/10/19 documented as of this encounter
--- OUTSIDE RECORDS SUMMARY | 2023-12-13 23:53 | External Medical Summary | Continuity Of Care Document ---
Author Name Unknown Address [address] [place] [address] Organization [facility] () Care Team Providers Care Acid Conditioning Worker Name Role Phone DO Parson Amy Primary Care Provider [phone] Allergies Allergy Reaction Start Date End Date [...] 3 0.1 mL 11/13 Inactiv e 2023 08799 68282 0 1 time Intrad ermal False Tubersol 5 tub. unit/0.1 mL intradermal injection solution [Tuberculin PPD] 0.1mL Intradermal 1 time For PPD 2nd Step Give 2nd Step PPD Day 1 and Read results Day 3 (schedule 7 days after 1st READ) 0.1mL 11/13 Inactiv e 2023 47666 33097 0 1 time Intrad ermal False DISCONTINUE as of 11/14/2023: Tubersol 5 tub. unit/0.1 mL intradermal injection solution [Tuberculin PPD] 11/13 Inactiv e 2023 91809 44478 0 Tubersol 5 tub. unit/0.1 mL intradermal injection solution 0.1 mL Intradermal 1 time For PPD Step 1 GIVE on Day 1 and read results Day 3 0.1 mL 11/16 Inactiv e 2023 79317 84801 1 1 time Intrad ermal False DISCONTINUE as of 11/14/2023: Tubersol 5 tub. unit/0.1 mL intradermal injection solution [Tuberculin PPD] 11/13 Inactiv e 2023 01121 25450 0 Tubersol 5 tub. unit/0.1 mL intradermal injection solution 0.1mL Intradermal 1 time For PPD 2nd Step Give 2nd Step PPD Day 1 and Read results Day 3 (schedule 7 days after 1st READ) 0.1mL 11/25 Active 2023 03057 59455 1 1 time Intrad ermal False Tylenol 325 mg tablet 2 tabs By Mouth Every 4 hours as needed For Pain DO NOT EXCEED 3000 MG APAP/24 Hours 2 tabs 202300 /0000 Active 2023 88802 35599 0 Every 4 hours as needed By Mouth False Tylenol 325 mg tablet 2 tabs By Mouth Every 4 hours as needed For Fever >100 DO NOT EXCEED 3000 MG APAP/24 Hours 2 tabs 202300 /0000 Active 2023 64306 51321 0 Every 4 hours as needed By Mouth False Dulcolax (bisacodyl) 10 mg rectal suppository One Suppository per rectum PRN if Milk of Magnisia ineffective. Give on day 5 of no BM 1 sup 2023 Active 2023 64188 80340 1 Daily as needed Rectal False Fleet Enema 19 gram-7 gram/118 mL Administer per rectum PRN one time if dulcolax suppository not effective. Give on day 6 of no BM 1 202300 0000 Active 2023 24398 84296 6 Daily as needed Rectal False Dextrose 50 % in water (D50W) intravenous solution [generic] Dextrose 50% reyes 20-50 ml (slow push) Intravenous if Glucagon not effective after 15 minutes. CALL 911 for ED Evaluation. 50% reyes 202300 /0000 Active 2023 11304 67525 9 Intrav enous False Glucagon (HCl) Emergency Kit 1 mg solution for injection Administer Glucagon 1 mg Intramuscular if 15 minutes after GLucose Gel is administered Glucose remains less than 70 1 mg 2023 Active 2023 55855 52588 2 Intram uscula r False Glucose Gel 40 % oral gel [Dextrose] PRN If resident is unable to swallow (with or without symptoms) and Glucose results less than 70 give GLucose 40% Gel 1 tube orally - Recheck Glucose 15 minutes after administratio n. 1 tube 2023 Active 2023 75630 78477 8 By Mouth False Lorazepam 0.5 mg tablet [generic] 0.5 mg By Mouth Every 8 hours as needed For Anxiety 0.5 mg 11/18 Inactiv e 2023 93577 96189 0 Every 8 hours as needed By Mouth False Potassium chloride ER 20 mEq tablet,exte nded release [generic] 40 meq By Mouth Once daily For Hypokalemia 40 meq 11/13 Inactiv e 2023 40895 85929 1 Once daily By Mouth False Colesevelam 625 mg tablet [generic] 1250 mg By Mouth Twice daily For TYPE 2 DIABETES MELLITUS WITHOUT COMPLICATIONS 1250 mg 11/19 Inactiv e 2023 69511 10672 1 Twice daily By Mouth E11.9 False Pioglitazon e 15 mg tablet [generic] 15 mg By Mouth Once daily For TYPE 2 DIABETES MELLITUS WITHOUT COMPLICATIONS 15 mg 11/14 Inactiv e 2023 74129 82325 1 Once daily By Mouth E11.9 False Cholecalcif hardeep (vitamin D3) 50 mcg (2,000 unit) tablet [generic] 50 mcg By Mouth Once daily For Supplement 50 mcg 2023 Active 2023 39106 93774 1 Once daily By Mouth False Colchicine 0.6 mg tablet [generic] 0.6 mg By Mouth Twice daily As Needed For Gout 0.6 mg 2023 Active 2023 36754 83806 4 Twice daily By Mouth False Levothyroxi ne 200 mcg tablet [generic] 200 mcg By Mouth Once daily For Hypothyroidis m 200 mcg 202300 0000 Active 2023 70430 75873 0 Once daily By Mouth False Ondansetron 4 mg disintegrat ing tablet [generic] 4 mg By Mouth Every 6 hours as needed For Nausea 4 mg 11/12 Inactiv e 2023 05848 54921 4 Every 6 hours as needed By Mouth False Docusate sodium 100 mg capsule [generic] 100 mg By Mouth Twice daily For Constipation 100 mg 202300 0000 Active 2023 01438 86620 1 Twice daily By Mouth False Oxycodone 5 mg tablet [generic] 5 mg By Mouth Every 6 hours as needed For Pain 5 mg 11/12 Inactiv e 2023 22246 98588 1 Every 6 hours as needed By Mouth False Oxycodone 5 mg tablet [generic] 5 mg By Mouth Every 6 hours as needed For Pain 5 mg 11/18 Inactiv e 2023 48670 91997 1 Every 6 hours as needed By Mouth False Milk of Magnesia 400 mg/5 mL oral suspension 30 ml By Mouth one time per day as needed if no BM x 3 days For Constipation 30 ml 202300 Active 2023 81232 00441 2 By Mouth False Ondansetron 4 mg disintegrat ing tablet [generic] 11/12 Inactiv e 2023 77028 84528 4 Ondansetron 4 mg disintegrat ing tablet [generic] 4 mg By Mouth Every 6 hours as needed For Nausea 4 mg 11/14 Inactiv e 2023 49219 99658 4 Every 6 hours as needed By Mouth False Potassium chloride ER 10 mEq capsule,ext ended release [generic] 40 mEq By Mouth Once daily For hypokalemia 40 mEq 11/17 Inactiv e 2023 99270 77621 1 Once daily By Mouth False Potassium chloride ER 10 mEq capsule,ext ended release [generic] 4 capsules By Mouth At bedtime For hypokalemia 4 capsule s 11/16 Inactiv e 2023 84258 51618 1 At bedtime By Mouth False Flomax 0.4 mg capsule 0.4 mg By Mouth At bedtime For Urinary retention 0.4 mg 11/18 Inactiv e 2023 44579 95656 1 At bedtime By Mouth False STOOL CULTURE Once daily Obtain stool culture, add C. Diff to routine stool culture For Rule out C. Diff 1x 2023 Active 2023 Once daily Other False Butrans 5 mcg/hour transdermal patch 1 patch Transdermal Every 7 Days For Pain 1 patch 11/20 Inactiv e 2023 14674 30853 4 Every week Transd ermal False Pantoprazol e 40 mg tablet,nu yed release [generic] 40 mg By Mouth Twice daily For gerd 40 mg 2023 Active 2023 42820 37965 0 Twice daily By Mouth False Scopolamine 1 mg over 3 days transdermal patch [generic] 1 Transdermal Every 72 hours For nausea 1 11/20 Inactiv e 2023 99400 12506 4 Every 72 hours Transd ermal False Ondansetron 4 mg disintegrat ing tablet [generic] 11/14 Inactiv e 2023 08043 92870 4 Ondansetron 4 mg disintegrat ing tablet [generic] 4 mg By Mouth Every 8 hours For Nausea 4 mg 2023 Active 2023 89754 02408 4 Every 8 hours By Mouth False Miralax 17 gram oral powder packet 8.5 g (1/2 capful) By Mouth Once daily For constipation 8.5 g 11/18 Inactiv e 2023 37092 04502 6 Once daily By Mouth False Pioglitazon e 15 mg tablet [generic] 11/14 Inactiv e 2023 69084 39954 1 E11.9 Pioglitazon e 15 mg tablet [generic] 7.5mg ( half a tab) By Mouth Once daily For TYPE 2 DIABETES MELLITUS WITHOUT COMPLICATIONS 7.5mg 2023 Active 2023 65725 08346 1 Once daily By Mouth E11.9 False Mylanta Coat-Cool 1,200 mg-270 mg-80 mg/10 mL oral suspension 10 ml By Mouth Every 8 hours As Needed For heartburn, indigestion, gas 10 ml 2023 Active 2023 82280 92234 1 Every 8 hours By Mouth False Prochlorper azine maleate 5 mg tablet [generic] 5 mg By Mouth Every 8 hours as needed For Nausea 5 mg 2023 Active 2023 77999 30821 1 Every 8 hours as needed By Mouth False Potassium chloride ER 10 mEq capsule,ext ended release [generic] 10 meq By Mouth 4 times a day For Hypokalemia 10 meq 11/20 Inactiv e 2023 67716 22621 1 4 times a day By Mouth False Lorazepam 0.5 mg tablet [generic] 11/18 Inactiv e 2023 48603 21664 0 Lorazepam 0.5 mg tablet [generic] 0.5 mg By Mouth Every 8 hours as needed For Anxiety 0.5 mg 12/18 Active 2023 21356 61055 0 Every 8 hours as needed By Mouth False Flomax 0.4 mg capsule 11/18 Inactiv e 2023 64411 77669 1 Flomax 0.4 mg capsule 0.4 mg By Mouth Once daily For Urinary retention 0.4 mg 11/19 Inactiv e 2023 64931 42961 1 Once daily By Mouth False Oxycodone 5 mg tablet [generic] 11/18 Inactiv e 2023 09932 98410 1 Oxycodone 5 mg tablet [generic] 5 mg By Mouth Every 6 hours as needed For Back Pain 5 mg 2023 Active 2023 51540 75801 1 Every 6 hours as needed By Mouth False Cipro 250 mg tablet 250 mg By Mouth Twice daily For UTI 250 mg 11/19 Inactiv e 2023 80766 80916 1 Twice daily By Mouth False Senna 8.6 mg tablet 17.2 mg By Mouth Twice daily For Constipation 17.2 mg 2023 Active 2023 10075 73223 1 Twice daily By Mouth False Zyprexa 2.5 mg tablet 2.5 mg By Mouth At bedtime For persistent nausea 2.5 mg 2023 Active 2023 97880 55451 0 At bedtime By Mouth False MAGNESSIUM GLUCONATE 500mg By Mouth Every morning For Supplement 500mg 2023 Active 2023 Every morning By Mouth False Cipro 250 mg tablet 11/19 Inactiv e 2023 51166 34205 1 Cipro 250 mg tablet 250 mg By Mouth Twice daily For UTI 250 mg 11/26 Active 2023 44685 79650 1 Twice daily By Mouth False Flomax 0.4 mg capsule 11/19 Inactiv e 2023 09290 76119 1 Flomax 0.4 mg capsule 0.4 mg By Mouth Once daily For Urinary retention 0.4 mg 11/20 Inactiv e 2023 46753 16160 1 Once daily By Mouth False Motrin IB 200 mg tablet 600 mg By Mouth Every 12 hours As Needed For Pain 600 mg 11/20 Inactiv e 2023 11252 14964 2 Every 12 hours By Mouth False Motrin IB 200 mg tablet 600 mg By Mouth Every 12 hours As Needed For Pain 600 mg 11/20 Inactiv e 2023 08525 34446 2 Every 12 hours By Mouth False Motrin IB 200 mg tablet 600 mg By Mouth Every 12 hours As Needed For Pain 600 mg 11/27 Active 2023 31573 91268 2 Every 12 hours By Mouth False Flomax 0.4 mg capsule 0.4 mg By Mouth Once daily For Urinary retention 0.4 mg 11/21 Inactiv e 2023 46305 69349 1 Once daily By Mouth False Scopolamine 1 mg over 3 days transdermal patch [generic] 1 Transdermal Every 72 hours For nausea 1 11/22 Inactiv e 2023 34331 01018 4 Every 72 hours Transd ermal False Butrans 7.5 mcg/hour transdermal patch 1 patch Transdermal Every 7 Days For Pain 1 patch 202300 0000 Active 2023 84265 71251 4 Every week Transd ermal False Tizanidine 2 mg tablet [generic] 2mg By Mouth At bedtime For Muscle spasms 2mg 202300 /0000 Active 2023 14368 81558 0 At bedtime By Mouth False Prednisone 20 mg tablet [generic] 60 mg By Mouth 1 time For Sciatica Pain 60 mg 11/22 Inactiv e 2023 01257 73264 1 1 time By Mouth False Prednisone 20 mg tablet [generic] 40mg By Mouth 1 time For Sciatica Pain 40mg 11/23 Inactiv e 2023 48555 98490 1 1 time By Mouth False Prednisone 20 mg tablet [generic] 20mg By Mouth 1 time For Sciatica 20mg 11/24 Inactiv e 2023 17512 17947 1 1 time By Mouth False ACCU [...] order For Steroid Therapy 11/28 Active 2023 24932 03967 9 Twice daily Subcut aneous False Flomax 0.4 mg capsule 1 capsule By Mouth At bedtime For urinary retnetion 1 capsule 12/24 Active 2023 91047 51398 1 At bedtime By Mouth False Problems [...] weight Temperature SpO2 Blood Sugar Pulse Respirations 42343 5 75.00 mm[Hg] - Sitting 140.00 mm[Hg] - Sitting 65 NI 98.00 Tympanic 95.00 % 102.00 /min 18.00/min 15243 918 77928 9 44162 918 29064 2 75.00 mm[Hg] - Sitting 140.00 mm[Hg] - Sitting 98.00 Tympanic 102.00 /min 18.00/min 18085 918 36267 3 76263 918 63146 1 72.00 mm[Hg] - Sitting 138.00 mm[Hg] - Sitting 98.40 Tympanic 918 26076 4 88.00/ min 18.00/min 919 58464 4 71.00 mm[Hg] - Sitting 115.00 mm[Hg] - Sitting 98.30 Tympanic 97.00 % 86.00/ min 16.00/min 31849 919 73298 0 71.00 mm[Hg] - Sitting 115.00 mm[Hg] - Sitting 98.30 Tympanic 86.00/ min 16.00/min 91567 919 88380 7 71.00 mm[Hg] - Sitting 115.00 mm[Hg] - Sitting 98.30 Tympanic 86.00/ min 16.00/min 59827 920 23859 6 72.00 mm[Hg] - Sitting 112.00 mm[Hg] - Sitting 98.10 Tympanic 82.00/ min 18.00/min 99493 920 09504 0 75.00 mm[Hg] - Sitting 130.00 mm[Hg] - Sitting 98.40 Forehead Scan 93.00 % 88.00/ min 18.00/min 69349 920 83579 2 75.00 mm[Hg] - Lying Down 130.00 mm[Hg] - Lying Down 98.40 Tympanic 88.00/ min 18.00/min 91325 920 07906 5 75.00 mm[Hg] - Lying Down 130.00 mm[Hg] - Lying Down 98.40 Tympanic 88.00/ min 18.00/min 79560 920 80942 6 199.00 NI 50651 920 42682 3 75.00 mm[Hg] - Sitting 130.00 mm[Hg] - Sitting 98.40 Tympanic 88.00/ min 18.00/min 82591 921 74591 1 71.00 mm[Hg] - Lying Down 119.00 mm[Hg] - Lying Down 98.40 Forehead Scan 96.00 % 83.00/ min 16.00/min 27728 922 35511 6 71.00 mm[Hg] - Lying Down 128.00 mm[Hg] - Lying Down 98.30 Forehead Scan 94.00 % 84.00/ min 18.00/min 00511 923 33024 4 63.00 mm[Hg] - Sitting 105.00 mm[Hg] - Sitting 98.20 Tympanic 93.00 % 93.00/ min 18.00/min 92978 924 16645 8 66.00 mm[Hg] - Sitting 104.00 mm[Hg] - Sitting 98.20 Tympanic 98.00 % 84.00/ min 16.00/min 37634 925 47226 2 131.00 mg/dL 37619 925 91120 6 138.00 mg/dL 98856 926 54244 1 199.00 NI 50312 927 93767 7 98.40 Tympanic 08985 927 29211 0 78.00 mm[Hg] - Sitting 124.00 mm[Hg] - Sitting 98.30 Forehead Scan 95.00 % 83.00/ min 16.00/min 93603 927 51154 7 98.10 Tympanic 03693 928 26581 9 60.00 mm[Hg] - Sitting 99.00 mm[Hg] - Sitting 98.20 Tympanic 91.00 % 64.00/ min 16.00/min 91558 928 15130 0 98.40 Tympanic 92197 928 79917 0 235.00 mg/dL 76930 928 03918 2 98.30 Tympanic 61919 929 48219 0 159.00 mg/dL 61268 929 97212 1 98.10 Tympanic 59945 929 73892 5 97.90 Tympanic 30915 929 64265 1 72.00 mm[Hg] - Sitting 101.00 mm[Hg] - Sitting 97.90 Tympanic 92.00 % 65.00/ min 16.00/min
--- OUTSIDE RECORDS SUMMARY | 2023-12-13 23:53 | External Medical Summary ---
Author Name Unknown Address Unknown Organization K01:[facility] [place] [address] [place] [address] Laboratory Report Ordering Provider Test Date Status EMEKAQUENTIN 11/29/2023 13:38:40 Final <10,000 colonies/ml normal f kristy, one colony type Observation Date Value Abnormality Reference (Units ) Status Bacteria identified in Specimen by Culture 11/29/2023 13:38:40 [id number] Abnormal Final 10,000 to 100,000 colonies/m L Yeast
Test: Culture, Urine, Quantitative
Specimen Source: Urine, Catheter
Specimen Type: Urine
Specimen Date: 11/29/2023 1338
Result Date: 12/04/2023 1449
Result Status: Final result
Abnormal: Yes
Resulting Lab: [facility] [place]
[address]
[place] [address]

CULTURE

10,000 to 100,000 colonies/mL Yeast (Abnormal)

<10,000 colonies/ml normal zahida, one colony type

null Performing Location [facility] [place] [address] [place] [address]
--- OUTSIDE RECORDS SUMMARY | 2023-12-13 23:54 | External Medical Summary | Continuity Of Care Document ---
Author Name Unknown Address [address] [place] [address] Organization [facility] [place] () Care Team Providers Care Rx Specialist Name Role Phone DO Parson Amy Primary Care Provider [phone] Allergies Allergy Reaction Start Date End Date [...] 3 0.1 mL 11/13 Inactiv e 2023 46187 40004 0 1 time Intrad ermal False Tubersol 5 tub. unit/0.1 mL intradermal injection solution [Tuberculin PPD] 0.1mL Intradermal 1 time For PPD 2nd Step Give 2nd Step PPD Day 1 and Read results Day 3 (schedule 7 days after 1st READ) 0.1mL 11/13 Inactiv e 2023 26206 73483 0 1 time Intrad ermal False DISCONTINUE as of 11/14/2023: Tubersol 5 tub. unit/0.1 mL intradermal injection solution [Tuberculin PPD] 11/13 Inactiv e 2023 43660 28234 0 Tubersol 5 tub. unit/0.1 mL intradermal injection solution 0.1 mL Intradermal 1 time For PPD Step 1 GIVE on Day 1 and read results Day 3 0.1 mL 11/16 Inactiv e 2023 89359 23192 1 1 time Intrad ermal False DISCONTINUE as of 11/14/2023: Tubersol 5 tub. unit/0.1 mL intradermal injection solution [Tuberculin PPD] 11/13 Inactiv e 2023 85049 57360 0 Tubersol 5 tub. unit/0.1 mL intradermal injection solution 0.1mL Intradermal 1 time For PPD 2nd Step Give 2nd Step PPD Day 1 and Read results Day 3 (schedule 7 days after 1st READ) 0.1mL 11/25 Active 2023 10946 29012 1 1 time Intrad ermal False Tylenol 325 mg tablet 2 tabs By Mouth Every 4 hours as needed For Pain DO NOT EXCEED 3000 MG APAP/24 Hours 2 tabs 202300 /0000 Active 2023 94920 03715 0 Every 4 hours as needed By Mouth False Tylenol 325 mg tablet 2 tabs By Mouth Every 4 hours as needed For Fever >100 DO NOT EXCEED 3000 MG APAP/24 Hours 2 tabs 202300 /0000 Active 2023 64583 63962 0 Every 4 hours as needed By Mouth False Dulcolax (bisacodyl) 10 mg rectal suppository One Suppository per rectum PRN if Milk of Magnisia ineffective. Give on day 5 of no BM 1 sup 2023 Active 2023 69760 21766 1 Daily as needed Rectal False Fleet Enema 19 gram-7 gram/118 mL Administer per rectum PRN one time if dulcolax suppository not effective. Give on day 6 of no BM 1 202300 0000 Active 2023 74918 03161 6 Daily as needed Rectal False Dextrose 50 % in water (D50W) intravenous solution [generic] Dextrose 50% reyes 20-50 ml (slow push) Intravenous if Glucagon not effective after 15 minutes. CALL 911 for ED Evaluation. 50% reyes 202300 /0000 Active 2023 32804 97048 9 Intrav enous False Glucagon (HCl) Emergency Kit 1 mg solution for injection Administer Glucagon 1 mg Intramuscular if 15 minutes after GLucose Gel is administered Glucose remains less than 70 1 mg 2023 Active 2023 30369 92099 2 Intram uscula r False Glucose Gel 40 % oral gel [Dextrose] PRN If resident is unable to swallow (with or without symptoms) and Glucose results less than 70 give GLucose 40% Gel 1 tube orally - Recheck Glucose 15 minutes after administratio n. 1 tube 2023 Active 2023 30151 52270 8 By Mouth False Lorazepam 0.5 mg tablet [generic] 0.5 mg By Mouth Every 8 hours as needed For Anxiety 0.5 mg 11/18 Inactiv e 2023 83580 96541 0 Every 8 hours as needed By Mouth False Potassium chloride ER 20 mEq tablet,exte nded release [generic] 40 meq By Mouth Once daily For Hypokalemia 40 meq 11/13 Inactiv e 2023 48598 14603 1 Once daily By Mouth False Colesevelam 625 mg tablet [generic] 1250 mg By Mouth Twice daily For TYPE 2 DIABETES MELLITUS WITHOUT COMPLICATIONS 1250 mg 11/19 Inactiv e 2023 00900 88662 1 Twice daily By Mouth E11.9 False Pioglitazon e 15 mg tablet [generic] 15 mg By Mouth Once daily For TYPE 2 DIABETES MELLITUS WITHOUT COMPLICATIONS 15 mg 11/14 Inactiv e 2023 14720 50026 1 Once daily By Mouth E11.9 False Cholecalcif hardeep (vitamin D3) 50 mcg (2,000 unit) tablet [generic] 50 mcg By Mouth Once daily For Supplement 50 mcg 2023 Active 2023 95753 20953 1 Once daily By Mouth False Colchicine 0.6 mg tablet [generic] 0.6 mg By Mouth Twice daily As Needed For Gout 0.6 mg 2023 Active 2023 94597 69264 4 Twice daily By Mouth False Levothyroxi ne 200 mcg tablet [generic] 200 mcg By Mouth Once daily For Hypothyroidis m 200 mcg 202300 0000 Active 2023 11999 90290 0 Once daily By Mouth False Ondansetron 4 mg disintegrat ing tablet [generic] 4 mg By Mouth Every 6 hours as needed For Nausea 4 mg 11/12 Inactiv e 2023 57371 01973 4 Every 6 hours as needed By Mouth False Docusate sodium 100 mg capsule [generic] 100 mg By Mouth Twice daily For Constipation 100 mg 202300 0000 Active 2023 83469 34664 1 Twice daily By Mouth False Oxycodone 5 mg tablet [generic] 5 mg By Mouth Every 6 hours as needed For Pain 5 mg 11/12 Inactiv e 2023 14678 48579 1 Every 6 hours as needed By Mouth False Oxycodone 5 mg tablet [generic] 5 mg By Mouth Every 6 hours as needed For Pain 5 mg 11/18 Inactiv e 2023 14696 59415 1 Every 6 hours as needed By Mouth False Milk of Magnesia 400 mg/5 mL oral suspension 30 ml By Mouth one time per day as needed if no BM x 3 days For Constipation 30 ml 202300 Active 2023 78050 08142 2 By Mouth False Ondansetron 4 mg disintegrat ing tablet [generic] 11/12 Inactiv e 2023 89015 95054 4 Ondansetron 4 mg disintegrat ing tablet [generic] 4 mg By Mouth Every 6 hours as needed For Nausea 4 mg 11/14 Inactiv e 2023 42892 16979 4 Every 6 hours as needed By Mouth False Potassium chloride ER 10 mEq capsule,ext ended release [generic] 40 mEq By Mouth Once daily For hypokalemia 40 mEq 11/17 Inactiv e 2023 28208 98082 1 Once daily By Mouth False Potassium chloride ER 10 mEq capsule,ext ended release [generic] 4 capsules By Mouth At bedtime For hypokalemia 4 capsule s 11/16 Inactiv e 2023 35389 97468 1 At bedtime By Mouth False Flomax 0.4 mg capsule 0.4 mg By Mouth At bedtime For Urinary retention 0.4 mg 11/18 Inactiv e 2023 72783 63036 1 At bedtime By Mouth False STOOL CULTURE Once daily Obtain stool culture, add C. Diff to routine stool culture For Rule out C. Diff 1x 2023 Active 2023 Once daily Other False Butrans 5 mcg/hour transdermal patch 1 patch Transdermal Every 7 Days For Pain 1 patch 11/20 Inactiv e 2023 07224 00473 4 Every week Transd ermal False Pantoprazol e 40 mg tablet,nu yed release [generic] 40 mg By Mouth Twice daily For gerd 40 mg 2023 Active 2023 34121 45852 0 Twice daily By Mouth False Scopolamine 1 mg over 3 days transdermal patch [generic] 1 Transdermal Every 72 hours For nausea 1 11/20 Inactiv e 2023 54699 13419 4 Every 72 hours Transd ermal False Ondansetron 4 mg disintegrat ing tablet [generic] 11/14 Inactiv e 2023 54855 59299 4 Ondansetron 4 mg disintegrat ing tablet [generic] 4 mg By Mouth Every 8 hours For Nausea 4 mg 2023 Active 2023 37408 77102 4 Every 8 hours By Mouth False Miralax 17 gram oral powder packet 8.5 g (1/2 capful) By Mouth Once daily For constipation 8.5 g 11/18 Inactiv e 2023 25013 64907 6 Once daily By Mouth False Pioglitazon e 15 mg tablet [generic] 11/14 Inactiv e 2023 95487 18275 1 E11.9 Pioglitazon e 15 mg tablet [generic] 7.5mg ( half a tab) By Mouth Once daily For TYPE 2 DIABETES MELLITUS WITHOUT COMPLICATIONS 7.5mg 2023 Active 2023 36051 70088 1 Once daily By Mouth E11.9 False Mylanta Coat-Cool 1,200 mg-270 mg-80 mg/10 mL oral suspension 10 ml By Mouth Every 8 hours As Needed For heartburn, indigestion, gas 10 ml 2023 Active 2023 00787 10661 1 Every 8 hours By Mouth False Prochlorper azine maleate 5 mg tablet [generic] 5 mg By Mouth Every 8 hours as needed For Nausea 5 mg 2023 Active 2023 44146 09006 1 Every 8 hours as needed By Mouth False Potassium chloride ER 10 mEq capsule,ext ended release [generic] 10 meq By Mouth 4 times a day For Hypokalemia 10 meq 11/20 Inactiv e 2023 94369 12975 1 4 times a day By Mouth False Lorazepam 0.5 mg tablet [generic] 11/18 Inactiv e 2023 13375 34711 0 Lorazepam 0.5 mg tablet [generic] 0.5 mg By Mouth Every 8 hours as needed For Anxiety 0.5 mg 12/18 Active 2023 55692 15341 0 Every 8 hours as needed By Mouth False Flomax 0.4 mg capsule 11/18 Inactiv e 2023 96145 25216 1 Flomax 0.4 mg capsule 0.4 mg By Mouth Once daily For Urinary retention 0.4 mg 11/19 Inactiv e 2023 07246 84868 1 Once daily By Mouth False Oxycodone 5 mg tablet [generic] 11/18 Inactiv e 2023 87425 58921 1 Oxycodone 5 mg tablet [generic] 5 mg By Mouth Every 6 hours as needed For Back Pain 5 mg 2023 Active 2023 30437 90589 1 Every 6 hours as needed By Mouth False Cipro 250 mg tablet 250 mg By Mouth Twice daily For UTI 250 mg 11/19 Inactiv e 2023 27677 19982 1 Twice daily By Mouth False Senna 8.6 mg tablet 17.2 mg By Mouth Twice daily For Constipation 17.2 mg 2023 Active 2023 01927 18080 1 Twice daily By Mouth False Zyprexa 2.5 mg tablet 2.5 mg By Mouth At bedtime For persistent nausea 2.5 mg 2023 Active 2023 23114 76384 0 At bedtime By Mouth False MAGNESSIUM GLUCONATE 500mg By Mouth Every morning For Supplement 500mg 2023 Active 2023 Every morning By Mouth False Cipro 250 mg tablet 11/19 Inactiv e 2023 55038 17924 1 Cipro 250 mg tablet 250 mg By Mouth Twice daily For UTI 250 mg 11/26 Active 2023 86950 00686 1 Twice daily By Mouth False Flomax 0.4 mg capsule 11/19 Inactiv e 2023 85170 68973 1 Flomax 0.4 mg capsule 0.4 mg By Mouth Once daily For Urinary retention 0.4 mg 11/20 Inactiv e 2023 05866 97239 1 Once daily By Mouth False Motrin IB 200 mg tablet 600 mg By Mouth Every 12 hours As Needed For Pain 600 mg 11/20 Inactiv e 2023 27739 71114 2 Every 12 hours By Mouth False Motrin IB 200 mg tablet 600 mg By Mouth Every 12 hours As Needed For Pain 600 mg 11/20 Inactiv e 2023 37683 76649 2 Every 12 hours By Mouth False Motrin IB 200 mg tablet 600 mg By Mouth Every 12 hours As Needed For Pain 600 mg 11/27 Active 2023 31332 98380 2 Every 12 hours By Mouth False Flomax 0.4 mg capsule 0.4 mg By Mouth Once daily For Urinary retention 0.4 mg 11/21 Inactiv e 2023 43963 02702 1 Once daily By Mouth False Scopolamine 1 mg over 3 days transdermal patch [generic] 1 Transdermal Every 72 hours For nausea 1 11/22 Inactiv e 2023 64179 94781 4 Every 72 hours Transd ermal False Butrans 7.5 mcg/hour transdermal patch 1 patch Transdermal Every 7 Days For Pain 1 patch 202300 0000 Active 2023 83960 42292 4 Every week Transd ermal False Tizanidine 2 mg tablet [generic] 2mg By Mouth At bedtime For Muscle spasms 2mg 202300 /0000 Active 2023 32977 16289 0 At bedtime By Mouth False Prednisone 20 mg tablet [generic] 60 mg By Mouth 1 time For Sciatica Pain 60 mg 11/22 Inactiv e 2023 61685 03079 1 1 time By Mouth False Prednisone 20 mg tablet [generic] 40mg By Mouth 1 time For Sciatica Pain 40mg 11/23 Inactiv e 2023 59098 62356 1 1 time By Mouth False Prednisone 20 mg tablet [generic] 20mg By Mouth 1 time For Sciatica 20mg 11/24 Inactiv e 2023 23740 45266 1 1 time By Mouth False ACCU [...] order For Steroid Therapy 11/28 Active 2023 23680 38930 9 Twice daily Subcut aneous False Flomax 0.4 mg capsule 1 capsule By Mouth At bedtime For urinary retnetion 1 capsule 12/24 Active 2023 55629 85847 1 At bedtime By Mouth False Problems [...] weight Temperature SpO2 Blood Sugar Pulse Respirations 49136 5 75.00 mm[Hg] - Sitting 140.00 mm[Hg] - Sitting 65 NI 98.00 Tympanic 95.00 % 102.00 /min 18.00/min 32554 918 78281 9 84697 918 20867 2 75.00 mm[Hg] - Sitting 140.00 mm[Hg] - Sitting 98.00 Tympanic 102.00 /min 18.00/min 12378 918 33469 3 46152 918 99037 1 72.00 mm[Hg] - Sitting 138.00 mm[Hg] - Sitting 98.40 Tympanic 918 87432 4 88.00/ min 18.00/min 919 13093 4 71.00 mm[Hg] - Sitting 115.00 mm[Hg] - Sitting 98.30 Tympanic 97.00 % 86.00/ min 16.00/min 26981 919 88786 0 71.00 mm[Hg] - Sitting 115.00 mm[Hg] - Sitting 98.30 Tympanic 86.00/ min 16.00/min 50947 919 94352 7 71.00 mm[Hg] - Sitting 115.00 mm[Hg] - Sitting 98.30 Tympanic 86.00/ min 16.00/min 52979 920 82447 6 72.00 mm[Hg] - Sitting 112.00 mm[Hg] - Sitting 98.10 Tympanic 82.00/ min 18.00/min 45836 920 91187 0 75.00 mm[Hg] - Sitting 130.00 mm[Hg] - Sitting 98.40 Forehead Scan 93.00 % 88.00/ min 18.00/min 40045 920 72856 2 75.00 mm[Hg] - Lying Down 130.00 mm[Hg] - Lying Down 98.40 Tympanic 88.00/ min 18.00/min 28626 920 34967 5 75.00 mm[Hg] - Lying Down 130.00 mm[Hg] - Lying Down 98.40 Tympanic 88.00/ min 18.00/min 03481 920 40795 6 199[place]00 [place] [address] 920 42506 3 75.00 mm[Hg] - Sitting 130.00 mm[Hg] - Sitting 98.40 Tympanic 88.00/ min 18.00/min 26406 921 34948 1 71.00 mm[Hg] - Lying Down 119.00 mm[Hg] - Lying Down 98.40 Forehead Scan 96.00 % 83.00/ min 16.00/min 57396 922 43998 6 71.00 mm[Hg] - Lying Down 128.00 mm[Hg] - Lying Down 98.30 Forehead Scan 94.00 % 84.00/ min 18.00/min 83006 923 74796 4 63.00 mm[Hg] - Sitting 105.00 mm[Hg] - Sitting 98.20 Tympanic 93.00 % 93.00/ min 18.00/min 07410 924 36150 8 66.00 mm[Hg] - Sitting 104.00 mm[Hg] - Sitting 98.20 Tympanic 98.00 % 84.00/ min 16.00/min 63413 925 41780 2 131.00 mg/dL 49241 925 11147 6 138.00 mg/dL 73236 926 41206 1 199.00 [place] [address] 927 24399 7 98.40 Tympanic 68015 927 63435 0 78.00 mm[Hg] - Sitting 124.00 mm[Hg] - Sitting 98.30 Forehead Scan 95.00 % 83.00/ min 16.00/min 42298 927 78356 7 98.10 Tympanic 58644 928 24118 9 60.00 mm[Hg] - Sitting 99.00 mm[Hg] - Sitting 98.20 Tympanic 91.00 % 64.00/ min 16.00/min 79694 928 88994 0 98.40 Tympanic 18511 928 31896 0 235.00 mg/dL 49756 928 48265 2 98.30 Tympanic 27216 929 33748 0 159.00 mg/dL 09760 929 06781 1 98.10 Tympanic 93253 929 99850 5 97.90 Tympanic 16684 929 85717 1 72.00 mm[Hg] - Sitting 101.00 mm[Hg] - Sitting 97.90 Tympanic 92.00 % 65.00/ min 16.00/min
--- OUTSIDE RECORDS SUMMARY | 2023-12-13 23:54 | External Medical Summary | Continuity Of Care Document ---
Author Name Unknown Address [address] [place] [address] Organization [facility] [place] () Care Team Providers Care Restaurant Worker Name Role Phone DO Parson Amy Primary Care Provider [phone] Allergies Allergy Reaction Start Date End Date [...] 3 0.1 mL 11/13 Inactiv e 2023 33697 22001 0 1 time Intrad ermal False Tubersol 5 tub. unit/0.1 mL intradermal injection solution [Tuberculin PPD] 0.1mL Intradermal 1 time For PPD 2nd Step Give 2nd Step PPD Day 1 and Read results Day 3 (schedule 7 days after 1st READ) 0.1mL 11/13 Inactiv e 2023 82353 54918 0 1 time Intrad ermal False DISCONTINUE as of 11/14/2023: Tubersol 5 tub. unit/0.1 mL intradermal injection solution [Tuberculin PPD] 11/13 Inactiv e 2023 31842 19830 0 Tubersol 5 tub. unit/0.1 mL intradermal injection solution 0.1 mL Intradermal 1 time For PPD Step 1 GIVE on Day 1 and read results Day 3 0.1 mL 11/16 Inactiv e 2023 82217 91780 1 1 time Intrad ermal False DISCONTINUE as of 11/14/2023: Tubersol 5 tub. unit/0.1 mL intradermal injection solution [Tuberculin PPD] 11/13 Inactiv e 2023 09796 41214 0 Tubersol 5 tub. unit/0.1 mL intradermal injection solution 0.1mL Intradermal 1 time For PPD 2nd Step Give 2nd Step PPD Day 1 and Read results Day 3 (schedule 7 days after 1st READ) 0.1mL 11/25 Active 2023 97349 00170 1 1 time Intrad ermal False Tylenol 325 mg tablet 2 tabs By Mouth Every 4 hours as needed For Pain DO NOT EXCEED 3000 MG APAP/24 Hours 2 tabs 202300 /0000 Active 2023 23720 72702 0 Every 4 hours as needed By Mouth False Tylenol 325 mg tablet 2 tabs By Mouth Every 4 hours as needed For Fever >100 DO NOT EXCEED 3000 MG APAP/24 Hours 2 tabs 202300 /0000 Active 2023 61848 55989 0 Every 4 hours as needed By Mouth False Dulcolax (bisacodyl) 10 mg rectal suppository One Suppository per rectum PRN if Milk of Magnisia ineffective. Give on day 5 of no BM 1 sup 2023 Active 2023 11834 94012 1 Daily as needed Rectal False Fleet Enema 19 gram-7 gram/118 mL Administer per rectum PRN one time if dulcolax suppository not effective. Give on day 6 of no BM 1 202300 0000 Active 2023 79621 78148 6 Daily as needed Rectal False Dextrose 50 % in water (D50W) intravenous solution [generic] Dextrose 50% reyes 20-50 ml (slow push) Intravenous if Glucagon not effective after 15 minutes. CALL 911 for ED Evaluation. 50% reyes 202300 /0000 Active 2023 21831 86579 9 Intrav enous False Glucagon (HCl) Emergency Kit 1 mg solution for injection Administer Glucagon 1 mg Intramuscular if 15 minutes after GLucose Gel is administered Glucose remains less than 70 1 mg 2023 Active 2023 51003 81668 2 Intram uscula r False Glucose Gel 40 % oral gel [Dextrose] PRN If resident is unable to swallow (with or without symptoms) and Glucose results less than 70 give GLucose 40% Gel 1 tube orally - Recheck Glucose 15 minutes after administratio n. 1 tube 2023 Active 2023 78785 21174 8 By Mouth False Lorazepam 0.5 mg tablet [generic] 0.5 mg By Mouth Every 8 hours as needed For Anxiety 0.5 mg 11/18 Inactiv e 2023 02013 23688 0 Every 8 hours as needed By Mouth False Potassium chloride ER 20 mEq tablet,exte nded release [generic] 40 meq By Mouth Once daily For Hypokalemia 40 meq 11/13 Inactiv e 2023 42908 68614 1 Once daily By Mouth False Colesevelam 625 mg tablet [generic] 1250 mg By Mouth Twice daily For TYPE 2 DIABETES MELLITUS WITHOUT COMPLICATIONS 1250 mg 11/19 Inactiv e 2023 96311 81219 1 Twice daily By Mouth E11.9 False Pioglitazon e 15 mg tablet [generic] 15 mg By Mouth Once daily For TYPE 2 DIABETES MELLITUS WITHOUT COMPLICATIONS 15 mg 11/14 Inactiv e 2023 84534 63690 1 Once daily By Mouth E11.9 False Cholecalcif hardeep (vitamin D3) 50 mcg (2,000 unit) tablet [generic] 50 mcg By Mouth Once daily For Supplement 50 mcg 2023 Active 2023 39173 00473 1 Once daily By Mouth False Colchicine 0.6 mg tablet [generic] 0.6 mg By Mouth Twice daily As Needed For Gout 0.6 mg 2023 Active 2023 42537 84220 4 Twice daily By Mouth False Levothyroxi ne 200 mcg tablet [generic] 200 mcg By Mouth Once daily For Hypothyroidis m 200 mcg 202300 0000 Active 2023 86394 19562 0 Once daily By Mouth False Ondansetron 4 mg disintegrat ing tablet [generic] 4 mg By Mouth Every 6 hours as needed For Nausea 4 mg 11/12 Inactiv e 2023 46960 79492 4 Every 6 hours as needed By Mouth False Docusate sodium 100 mg capsule [generic] 100 mg By Mouth Twice daily For Constipation 100 mg 202300 0000 Active 2023 71586 38228 1 Twice daily By Mouth False Oxycodone 5 mg tablet [generic] 5 mg By Mouth Every 6 hours as needed For Pain 5 mg 11/12 Inactiv e 2023 25707 15299 1 Every 6 hours as needed By Mouth False Oxycodone 5 mg tablet [generic] 5 mg By Mouth Every 6 hours as needed For Pain 5 mg 11/18 Inactiv e 2023 87921 13970 1 Every 6 hours as needed By Mouth False Milk of Magnesia 400 mg/5 mL oral suspension 30 ml By Mouth one time per day as needed if no BM x 3 days For Constipation 30 ml 202300 Active 2023 68117 89721 2 By Mouth False Ondansetron 4 mg disintegrat ing tablet [generic] 11/12 Inactiv e 2023 30076 54481 4 Ondansetron 4 mg disintegrat ing tablet [generic] 4 mg By Mouth Every 6 hours as needed For Nausea 4 mg 11/14 Inactiv e 2023 83127 73929 4 Every 6 hours as needed By Mouth False Potassium chloride ER 10 mEq capsule,ext ended release [generic] 40 mEq By Mouth Once daily For hypokalemia 40 mEq 11/17 Inactiv e 2023 37995 33116 1 Once daily By Mouth False Potassium chloride ER 10 mEq capsule,ext ended release [generic] 4 capsules By Mouth At bedtime For hypokalemia 4 capsule s 11/16 Inactiv e 2023 64630 48556 1 At bedtime By Mouth False Flomax 0.4 mg capsule 0.4 mg By Mouth At bedtime For Urinary retention 0.4 mg 11/18 Inactiv e 2023 63151 80550 1 At bedtime By Mouth False STOOL CULTURE Once daily Obtain stool culture, add C. Diff to routine stool culture For Rule out C. Diff 1x 2023 Active 2023 Once daily Other False Butrans 5 mcg/hour transdermal patch 1 patch Transdermal Every 7 Days For Pain 1 patch 11/20 Inactiv e 2023 48232 83353 4 Every week Transd ermal False Pantoprazol e 40 mg tablet,nu yed release [generic] 40 mg By Mouth Twice daily For gerd 40 mg 2023 Active 2023 73058 51472 0 Twice daily By Mouth False Scopolamine 1 mg over 3 days transdermal patch [generic] 1 Transdermal Every 72 hours For nausea 1 11/20 Inactiv e 2023 31746 68946 4 Every 72 hours Transd ermal False Ondansetron 4 mg disintegrat ing tablet [generic] 11/14 Inactiv e 2023 93478 84174 4 Ondansetron 4 mg disintegrat ing tablet [generic] 4 mg By Mouth Every 8 hours For Nausea 4 mg 2023 Active 2023 77589 24895 4 Every 8 hours By Mouth False Miralax 17 gram oral powder packet 8.5 g (1/2 capful) By Mouth Once daily For constipation 8.5 g 11/18 Inactiv e 2023 46073 49216 6 Once daily By Mouth False Pioglitazon e 15 mg tablet [generic] 11/14 Inactiv e 2023 55741 21382 1 E11.9 Pioglitazon e 15 mg tablet [generic] 7.5mg ( half a tab) By Mouth Once daily For TYPE 2 DIABETES MELLITUS WITHOUT COMPLICATIONS 7.5mg 2023 Active 2023 82235 87581 1 Once daily By Mouth E11.9 False Mylanta Coat-Cool 1,200 mg-270 mg-80 mg/10 mL oral suspension 10 ml By Mouth Every 8 hours As Needed For heartburn, indigestion, gas 10 ml 2023 Active 2023 93646 1 Every 8 hours By Mouth False Prochlorper azine maleate 5 mg tablet [generic] 5 mg By Mouth Every 8 hours as needed For Nausea 5 mg 2023 Active 2023 44127 89989 1 Every 8 hours as needed By Mouth False Potassium chloride ER 10 mEq capsule,ext ended release [generic] 10 meq By Mouth 4 times a day For Hypokalemia 10 meq 11/20 Inactiv e 2023 39618 73330 1 4 times a day By Mouth False Lorazepam 0.5 mg tablet [generic] 11/18 Inactiv e 2023 51550 01069 0 Problems Code Description Start Date End Date [...] 11/13/2023 00 Active E78.5 Hyperlipidemia, unspecified 11/13/2023 Active E11.9 Type 2 diabetes mellitus without complications 11/13/2023 Active I10. Essential (primary) hypertension 11/13/2023 Active K21.9 Gastro-esophageal re flux disease without esophagitis 11/13/2023 Active K59.00 Constipation, unspecified 11/13/2023 Active E66.9 Obesity, unspecified 11/18/2023 Acti ve R33.9 Retention of urine, unspecified 11/18/2023 00/ Active R11.0 Nausea 11/18/2023 Active Z98.890 Other specified postprocedural states Active E87.6 Hypokalemia 11/18/2023 Active R13.10 Dysphagia, unspecified 11/18/2023 Ac tive VITAL SIGNS Date Time Diastolic blood pressure Systolic blood pressure Body height Body weight Temperature SpO2 Blood Sugar Pulse Respirations 8 73451 5 75.00 mm[Hg] - Sitting 140.00 mm[Hg] - Sitting 65 NI 98.00 Tympanic 95.00 % 102.00 /min 18.00/min 28131 8 54305 9 89906 918 67180 2 75.00 mm[Hg] - Sitting 140.00 mm[Hg] - Sitting 98.00 Tympanic 102.00 /min 18.00/min 79267 918 93206 3 70785 8 93133 1 72.00 mm[Hg] - Sitting 138.00 mm[Hg] - Sitting 98.40 Tympanic 23658 918 05694 4 88.00/ min 18.00/min 10448 919 31474 4 71.00 mm[Hg] - Sitting 115.00 mm[Hg] - Sitting 98.30 Tympanic 97.00 % 86.00/ min 16.00/min 59824 919 97479 0 71.00 mm[Hg] - Sitting 115.00 mm[Hg] - Sitting 98.30 Tympanic 86.00/ min 16.00/min 45193 919 22876 7 71.00 mm[Hg] - Sitting 115.00 mm[Hg] - Sitting 98.30 Tympanic 86.00/ min 16.00/min 13458 920 55688 6 72.00 mm[Hg] - Sitting 112.00 mm[Hg] - Sitting 98.10 Tympanic 82.00/ min 18.00/min 00631 920 98658 0 75.00 mm[Hg] - Sitting 130.00 mm[Hg] - Sitting 98.40 Forehead Scan 93.00 % 88.00/ min 18.00/min 75823 920 46857 2 75.00 mm[Hg] - Lying Down 130.00 mm[Hg] - Lying Down 98.40 Tympanic 88.00/ min 18.00/min 65263 920 62120 5 75.00 mm[Hg] - Lying Down 130.00 mm[Hg] - Lying Down 98.40 Tympanic 88.00/ min 18.00/min 06208 920 00408 6 199.00 NI 13602 920 41369 3 75.00 mm[Hg] - Sitting 130.00 mm[Hg] - Sitting 98.40 Tympanic 88.00/ min 18.00/min 78653 921 41207 1 71.00 mm[Hg] - Lying Down 119.00 mm[Hg] - Lying Down 98.40 Forehead Scan 96.00 % 83.00/ min 16.00/min 63142 922 74374 6 71.00 mm[Hg] - Lying Down 128.00 mm[Hg] - Lying Down 98.30 Forehead Scan 94.00 % 84.00/ min 18.00/min 32939 923 13964 4 63.00 mm[Hg] - Sitting 105.00 mm[Hg] - Sitting 98.20 Tympanic 93.00 % 93.00/ min 18.00/min 90295 924 73190 8 66.00 mm[Hg] - Sitting 104.00 mm[Hg] - Sitting 98.20 Tympanic 98.00 % 84.00/ min 16.00/min 19250 925 31115 2 131.00 mg/dL 06762 925 42334 6 138.00 mg/dL 44197 926 66053 1 199.00 NI [address] 927 97830 7 98.40 Tympanic 00573 927 02551 0 78.00 mm[Hg] - Sitting 124.00 mm[Hg] - Sitting 98.30 Forehead Scan 95.00 % 83.00/ min 16.00/min 87183 927 48945 7 98.10 Tympanic 44679 928 61109 9 60.00 mm[Hg] - Sitting 99.00 mm[Hg] - Sitting 98.20 Tympanic 91.00 % 64.00/ min 16.00/min 10109 928 72112 0 98.40 Tympanic 65303 928 18080 0 235.00 mg/dL 82439 928 03517 2 98.30 Tympanic 39062 929 18226 0 159.00 mg/dL 91162 929 26764 1 98.10 Tympanic 38567 929 79648 5 97.90 Tympanic 91536 929 57002 1 72.00 mm[Hg] - Sitting 101.00 mm[Hg] - Sitting 97.90 Tympanic 92.00 % 65.00/ min 16.00/min
--- OUTSIDE RECORDS SUMMARY | 2023-12-13 23:54 | External Medical Summary | Continuity Of Care Document ---
Author Name Unknown Address [address] [place] [address] [address] [facility] [place] () Care Team Providers Care Environmental Scientist Name Role Phone DO Parson Amy Primary Care Provider [phone] Allergies Allergy Reaction Start Date End Date [...] 3 0.1 mL 11/13 Inactiv e 2023 34694 65024 0 1 time Intrad ermal False Tubersol 5 tub. unit/0.1 mL intradermal injection solution [Tuberculin PPD] 0.1mL Intradermal 1 time For PPD 2nd Step Give 2nd Step PPD Day 1 and Read results Day 3 (schedule 7 days after 1st READ) 0.1mL 11/13 Inactiv e 2023 28827 46245 0 1 time Intrad ermal False DISCONTINUE as of 11/14/2023: Tubersol 5 tub. unit/0.1 mL intradermal injection solution [Tuberculin PPD] 11/13 Inactiv e 2023 35805 67607 0 Tubersol 5 tub. unit/0.1 mL intradermal injection solution 0.1 mL Intradermal 1 time For PPD Step 1 GIVE on Day 1 and read results Day 3 0.1 mL 11/16 Inactiv e 2023 70587 92646 1 1 time Intrad ermal False DISCONTINUE as of 11/14/2023: Tubersol 5 tub. unit/0.1 mL intradermal injection solution [Tuberculin PPD] 11/13 Inactiv e 2023 58081 37360 0 Tubersol 5 tub. unit/0.1 mL intradermal injection solution 0.1mL Intradermal 1 time For PPD 2nd Step Give 2nd Step PPD Day 1 and Read results Day 3 (schedule 7 days after 1st READ) 0.1mL 11/25 Active 2023 80794 14213 1 1 time Intrad ermal False Tylenol 325 mg tablet 2 tabs By Mouth Every 4 hours as needed For Pain DO NOT EXCEED 3000 MG APAP/24 Hours 2 tabs 202300 /0000 Active 2023 01783 92047 0 Every 4 hours as needed By Mouth False Tylenol 325 mg tablet 2 tabs By Mouth Every 4 hours as needed For Fever >100 DO NOT EXCEED 3000 MG APAP/24 Hours 2 tabs 202300 /0000 Active 2023 99052 42693 0 Every 4 hours as needed By Mouth False Dulcolax (bisacodyl) 10 mg rectal suppository One Suppository per rectum PRN if Milk of Magnisia ineffective. Give on day 5 of no BM 1 sup 2023 Active 2023 17990 01760 1 Daily as needed Rectal False Fleet Enema 19 gram-7 gram/118 mL Administer per rectum PRN one time if dulcolax suppository not effective. Give on day 6 of no BM 1 202300 0000 Active 2023 17747 72764 6 Daily as needed Rectal False Dextrose 50 % in water (D50W) intravenous solution [generic] Dextrose 50% reyes 20-50 ml (slow push) Intravenous if Glucagon not effective after 15 minutes. CALL 911 for ED Evaluation. 50% reyes 202300 /0000 Active 2023 11778 19271 9 Intrav enous False Glucagon (HCl) Emergency Kit 1 mg solution for injection Administer Glucagon 1 mg Intramuscular if 15 minutes after GLucose Gel is administered Glucose remains less than 70 1 mg 2023 Active 2023 15653 13096 2 Intram uscula r False Glucose Gel 40 % oral gel [Dextrose] PRN If resident is unable to swallow (with or without symptoms) and Glucose results less than 70 give GLucose 40% Gel 1 tube orally - Recheck Glucose 15 minutes after administratio n. 1 tube 2023 Active 2023 76137 94963 8 By Mouth False Lorazepam 0.5 mg tablet [generic] 0.5 mg By Mouth Every 8 hours as needed For Anxiety 0.5 mg 11/18 Inactiv e 2023 55668 94299 0 Every 8 hours as needed By Mouth False Potassium chloride ER 20 mEq tablet,exte nded release [generic] 40 meq By Mouth Once daily For Hypokalemia 40 meq 11/13 Inactiv e 2023 84411 29815 1 Once daily By Mouth False Colesevelam 625 mg tablet [generic] 1250 mg By Mouth Twice daily For TYPE 2 DIABETES MELLITUS WITHOUT COMPLICATIONS 1250 mg 11/19 Inactiv e 2023 86189 89931 1 Twice daily By Mouth E11.9 False Pioglitazon e 15 mg tablet [generic] 15 mg By Mouth Once daily For TYPE 2 DIABETES MELLITUS WITHOUT COMPLICATIONS 15 mg 11/14 Inactiv e 2023 28710 79759 1 Once daily By Mouth E11.9 False Cholecalcif hardeep (vitamin D3) 50 mcg (2,000 unit) tablet [generic] 50 mcg By Mouth Once daily For Supplement 50 mcg 2023 Active 2023 44524 18037 1 Once daily By Mouth False Colchicine 0.6 mg tablet [generic] 0.6 mg By Mouth Twice daily As Needed For Gout 0.6 mg 2023 Active 2023 96890 39825 4 Twice daily By Mouth False Levothyroxi ne 200 mcg tablet [generic] 200 mcg By Mouth Once daily For Hypothyroidis m 200 mcg 202300 0000 Active 2023 00007 89291 0 Once daily By Mouth False Ondansetron 4 mg disintegrat ing tablet [generic] 4 mg By Mouth Every 6 hours as needed For Nausea 4 mg 11/12 Inactiv e 2023 20162 92028 4 Every 6 hours as needed By Mouth False Docusate sodium 100 mg capsule [generic] 100 mg By Mouth Twice daily For Constipation 100 mg 202300 0000 Active 2023 16976 74705 1 Twice daily By Mouth False Oxycodone 5 mg tablet [generic] 5 mg By Mouth Every 6 hours as needed For Pain 5 mg 11/12 Inactiv e 2023 64787 80440 1 Every 6 hours as needed By Mouth False Oxycodone 5 mg tablet [generic] 5 mg By Mouth Every 6 hours as needed For Pain 5 mg 11/18 Inactiv e 2023 43864 39417 1 Every 6 hours as needed By Mouth False Milk of Magnesia 400 mg/5 mL oral suspension 30 ml By Mouth one time per day as needed if no BM x 3 days For Constipation 30 ml 202300 Active 2023 38358 45580 2 By Mouth False Ondansetron 4 mg disintegrat ing tablet [generic] 11/12 Inactiv e 2023 47804 84295 4 Ondansetron 4 mg disintegrat ing tablet [generic] 4 mg By Mouth Every 6 hours as needed For Nausea 4 mg 11/14 Inactiv e 2023 29140 47868 4 Every 6 hours as needed By Mouth False Potassium chloride ER 10 mEq capsule,ext ended release [generic] 40 mEq By Mouth Once daily For hypokalemia 40 mEq 11/17 Inactiv e 2023 20665 06225 1 Once daily By Mouth False Potassium chloride ER 10 mEq capsule,ext ended release [generic] 4 capsules By Mouth At bedtime For hypokalemia 4 capsule s 11/16 Inactiv e 2023 18839 64319 1 At bedtime By Mouth False Flomax 0.4 mg capsule 0.4 mg By Mouth At bedtime For Urinary retention 0.4 mg 11/18 Inactiv e 2023 09914 00878 1 At bedtime By Mouth False STOOL CULTURE Once daily Obtain stool culture, add C. Diff to routine stool culture For Rule out C. Diff 1x 2023 Active 2023 Once daily Other False Butrans 5 mcg/hour transdermal patch 1 patch Transdermal Every 7 Days For Pain 1 patch 11/20 Inactiv e 2023 41875 88905 4 Every week Transd ermal False Pantoprazol e 40 mg tablet,nu yed release [generic] 40 mg By Mouth Twice daily For gerd 40 mg 2023 Active 2023 32313 18954 0 Twice daily By Mouth False Scopolamine 1 mg over 3 days transdermal patch [generic] 1 Transdermal Every 72 hours For nausea 1 11/20 Inactiv e 2023 46945 75259 4 Every 72 hours Transd ermal False Ondansetron 4 mg disintegrat ing tablet [generic] 11/14 Inactiv e 2023 26190 59817 4 Ondansetron 4 mg disintegrat ing tablet [generic] 4 mg By Mouth Every 8 hours For Nausea 4 mg 2023 Active 2023 86065 22614 4 Every 8 hours By Mouth False Miralax 17 gram oral powder packet 8.5 g (1/2 capful) By Mouth Once daily For constipation 8.5 g 11/18 Inactiv e 2023 85844 01949 6 Once daily By Mouth False Pioglitazon e 15 mg tablet [generic] 11/14 Inactiv e 2023 55021 77166 1 E11.9 Pioglitazon e 15 mg tablet [generic] 7.5mg ( half a tab) By Mouth Once daily For TYPE 2 DIABETES MELLITUS WITHOUT COMPLICATIONS 7.5mg 2023 Active 2023 76902 46339 1 Once daily By Mouth E11.9 False Mylanta Coat-Cool 1,200 mg-270 mg-80 mg/10 mL oral suspension 10 ml By Mouth Every 8 hours As Needed For heartburn, indigestion, gas 10 ml 2023 Active 2023 97790 57631 1 Every 8 hours By Mouth False Prochlorper azine maleate 5 mg tablet [generic] 5 mg By Mouth Every 8 hours as needed For Nausea 5 mg 2023 Active 2023 57016 61573 1 Every 8 hours as needed By Mouth False Potassium chloride ER 10 mEq capsule,ext ended release [generic] 10 meq By Mouth 4 times a day For Hypokalemia 10 meq 11/20 Inactiv e 2023 67066 66024 1 4 times a day By Mouth False Lorazepam 0.5 mg tablet [generic] 11/18 Inactiv e 2023 30206 35415 0 Lorazepam 0.5 mg tablet [generic] 0.5 mg By Mouth Every 8 hours as needed For Anxiety 0.5 mg 12/18 Active 2023 15869 76538 0 Every 8 hours as needed By Mouth False Flomax 0.4 mg capsule 11/18 Inactiv e 2023 91816 37721 1 Flomax 0.4 mg capsule 0.4 mg By Mouth Once daily For Urinary retention 0.4 mg 11/19 Inactiv e 2023 30575 40353 1 Once daily By Mouth False Oxycodone 5 mg tablet [generic] 11/18 Inactiv e 2023 35342 40018 1 Oxycodone 5 mg tablet [generic] 5 mg By Mouth Every 6 hours as needed For Back Pain 5 mg 2023 Active 2023 85589 37291 1 Every 6 hours as needed By Mouth False Cipro 250 mg tablet 250 mg By Mouth Twice daily For UTI 250 mg 11/19 Inactiv e 2023 51762 78495 1 Twice daily By Mouth False Senna 8.6 mg tablet 17.2 mg By Mouth Twice daily For Constipation 17.2 mg 2023 Active 2023 42468 53623 1 Twice daily By Mouth False Zyprexa 2.5 mg tablet 2.5 mg By Mouth At bedtime For persistent nausea 2.5 mg 2023 Active 2023 84323 34498 0 At bedtime By Mouth False MAGNESSIUM GLUCONATE 500mg By Mouth Every morning For Supplement 500mg 2023 Active 2023 Every morning By Mouth False Cipro 250 mg tablet 11/19 Inactiv e 2023 36927 96237 1 Cipro 250 mg tablet 250 mg By Mouth Twice daily For UTI 250 mg 11/26 Active 2023 77283 03720 1 Twice daily By Mouth False Flomax 0.4 mg capsule 11/19 Inactiv e 2023 10606 76127 1 Flomax 0.4 mg capsule 0.4 mg By Mouth Once daily For Urinary retention 0.4 mg 11/20 Inactiv e 2023 11179 51763 1 Once daily By Mouth False Motrin IB 200 mg tablet 600 mg By Mouth Every 12 hours As Needed For Pain 600 mg 11/20 Inactiv e 2023 75106 55525 2 Every 12 hours By Mouth False Motrin IB 200 mg tablet 600 mg By Mouth Every 12 hours As Needed For Pain 600 mg 11/20 Inactiv e 2023 84934 39014 2 Every 12 hours By Mouth False Motrin IB 200 mg tablet 600 mg By Mouth Every 12 hours As Needed For Pain 600 mg 11/27 Active 2023 77536 62278 2 Every 12 hours By Mouth False Flomax 0.4 mg capsule 0.4 mg By Mouth Once daily For Urinary retention 0.4 mg 11/21 Inactiv e 2023 45436 26394 1 Once daily By Mouth False Scopolamine 1 mg over 3 days transdermal patch [generic] 1 Transdermal Every 72 hours For nausea 1 11/22 Inactiv e 2023 22070 38057 4 Every 72 hours Transd ermal False Butrans 7.5 mcg/hour transdermal patch 1 patch Transdermal Every 7 Days For Pain 1 patch 202300 0000 Active 2023 37652 04339 4 Every week Transd ermal False Tizanidine 2 mg tablet [generic] 2mg By Mouth At bedtime For Muscle spasms 2mg 202300 0000 Active 2023 53511 22878 0 At bedtime By Mouth False Prednisone 20 mg tablet [generic] 60 mg By Mouth 1 time For Sciatica Pain 60 mg 11/22 Inactiv e 2023 79618 68951 1 1 time By Mouth False Prednisone 20 mg tablet [generic] 40mg By Mouth 1 time For Sciatica Pain 40mg 11/23 Active 2023 52287 69378 1 1 time By Mouth False Prednisone 20 mg tablet [generic] 20mg By Mouth 1 time For Sciatica 20mg 11/24 Active 2023 58036 29935 1 1 time By Mouth False ACCU [...] order For Steroid Therapy 11/28 Active 2023 48554 40291 9 Twice daily Subcut aneous False Problems [...] Temperature SpO2 Blood Sugar Pulse Respirations 8 31040 5 75.00 mm[Hg] - Sitting 140.00 mm[Hg] - Sitting 65 NI 98.00 Tympanic 95.00 % 102.00 /min 18.00/min 918 46908 9 918 39827 2 75.00 mm[Hg] - Sitting 140.00 mm[Hg] - Sitting 98.00 Tympanic 102.00 /min 18.00/min 37998 918 56017 3 19670 918 40527 1 72.00 mm[Hg] - Sitting 138.00 mm[Hg] - Sitting 98.40 Tympanic 8 30282 4 88.00/ min 18.00/min 919 84099 4 71.00 mm[Hg] - Sitting 115.00 mm[Hg] - Sitting 98.30 Tympanic 97.00 % 86.00/ min 16.00/min 919 54328 0 71.00 mm[Hg] - Sitting 115.00 mm[Hg] - Sitting 98.30 Tympanic 86.00/ min 16.00/min 19834 919 00294 7 71.00 mm[Hg] - Sitting 115.00 mm[Hg] - Sitting 98.30 Tympanic 86.00/ min 16.00/min 38228 920 59279 6 72.00 mm[Hg] - Sitting 112.00 mm[Hg] - Sitting 98.10 Tympanic 82.00/ min 18.00/min 920 70408 0 75.00 mm[Hg] - Sitting 130.00 mm[Hg] - Sitting 98.40 Forehead Scan 93.00 % 88.00/ min 18.00/min 920 36335 2 75.00 mm[Hg] - Lying Down 130.00 mm[Hg] - Lying Down 98.40 Tympanic 88.00/ min 18.00/min 62546 920 70009 5 75.00 mm[Hg] - Lying Down 130.00 mm[Hg] - Lying Down 98.40 Tympanic 88.00/ min 18.00/min 920 66685 6 199.00 NI 920 35454 3 75.00 mm[Hg] - Sitting 130.00 mm[Hg] - Sitting 98.40 Tympanic 88.00/ min 18.00/min 67765 921 07342 1 71.00 mm[Hg] - Lying Down 119.00 mm[Hg] - Lying Down 98.40 Forehead Scan 96.00 % 83.00/ min 16.00/min 80214 922 35938 6 71.00 mm[Hg] - Lying Down 128.00 mm[Hg] - Lying Down 98.30 Forehead Scan 94.00 % 84.00/ min 18.00/min 46848 923 67547 4 63.00 mm[Hg] - Sitting 105.00 mm[Hg] - Sitting 98.20 Tympanic 93.00 % 93.00/ min 18.00/min 82880 924 05157 8 66.00 mm[Hg] - Sitting 104.00 mm[Hg] - Sitting 98.20 Tympanic 98.00 % 84.00/ min 16.00/min 15806 925 29957 2 131.00 mg/dL 70499 925 70664 6 138.00 mg/dL 39532 926 88049 1 199.00 NI 05521 927 97340 7 98.40 Tympanic 01137 927 10601 0 78.00 mm[Hg] - Sitting 124.00 mm[Hg] - Sitting 98.30 Forehead Scan 95.00 % 83.00/ min 16.00/min 13844 927 12610 7 98.10 Tympanic 86185 928 09205 9 60.00 mm[Hg] - Sitting 99.00 mm[Hg] - Sitting 98.20 Tympanic 91.00 % 64.00/ min 16.00/min 56599 928 44550 0 98.40 Tympanic
--- OUTSIDE RECORDS SUMMARY | 2023-12-13 23:54 | External Medical Summary | Continuity Of Care Document ---
Author Name Unknown Address [address] [place] [address] Organization [facility] () Care Team Providers Care Body Recall Instructor Name Role Phone DO Parson Amy Primary Care Provider [phone] Allergies Allergy Reaction Start Date End Date [...] 3 0.1 mL 11/13 Inactiv e 2023 49687 39761 0 1 time Intrad ermal False Tubersol 5 tub. unit/0.1 mL intradermal injection solution [Tuberculin PPD] 0.1mL Intradermal 1 time For PPD 2nd Step Give 2nd Step PPD Day 1 and Read results Day 3 (schedule 7 days after 1st READ) 0.1mL 11/13 Inactiv e 2023 29353 31026 0 1 time Intrad ermal False DISCONTINUE as of 11/14/2023: Tubersol 5 tub. unit/0.1 mL intradermal injection solution [Tuberculin PPD] 11/13 Inactiv e 2023 80336 49738 0 Tubersol 5 tub. unit/0.1 mL intradermal injection solution 0.1 mL Intradermal 1 time For PPD Step 1 GIVE on Day 1 and read results Day 3 0.1 mL 11/16 Inactiv e 2023 97153 09644 1 1 time Intrad ermal False DISCONTINUE as of 11/14/2023: Tubersol 5 tub. unit/0.1 mL intradermal injection solution [Tuberculin PPD] 11/13 Inactiv e 2023 55675 84079 0 Tubersol 5 tub. unit/0.1 mL intradermal injection solution 0.1mL Intradermal 1 time For PPD 2nd Step Give 2nd Step PPD Day 1 and Read results Day 3 (schedule 7 days after 1st READ) 0.1mL 11/25 Active 2023 37908 67803 1 1 time Intrad ermal False Tylenol 325 mg tablet 2 tabs By Mouth Every 4 hours as needed For Pain DO NOT EXCEED 3000 MG APAP/24 Hours 2 tabs 202300 /0000 Active 2023 03262 25156 0 Every 4 hours as needed By Mouth False Tylenol 325 mg tablet 2 tabs By Mouth Every 4 hours as needed For Fever >100 DO NOT EXCEED 3000 MG APAP/24 Hours 2 tabs 202300 /0000 Active 2023 69851 95275 0 Every 4 hours as needed By Mouth False Dulcolax (bisacodyl) 10 mg rectal suppository One Suppository per rectum PRN if Milk of Magnisia ineffective. Give on day 5 of no BM 1 sup 2023 Active 2023 03706 80721 1 Daily as needed Rectal False Fleet Enema 19 gram-7 gram/118 mL Administer per rectum PRN one time if dulcolax suppository not effective. Give on day 6 of no BM 1 202300 0000 Active 2023 07928 03797 6 Daily as needed Rectal False Dextrose 50 % in water (D50W) intravenous solution [generic] Dextrose 50% reyes 20-50 ml (slow push) Intravenous if Glucagon not effective after 15 minutes. CALL 911 for ED Evaluation. 50% reyes 202300 /0000 Active 2023 79212 55773 9 Intrav enous False Glucagon (HCl) Emergency Kit 1 mg solution for injection Administer Glucagon 1 mg Intramuscular if 15 minutes after GLucose Gel is administered Glucose remains less than 70 1 mg 2023 Active 2023 03866 91168 2 Intram uscula r False Glucose Gel 40 % oral gel [Dextrose] PRN If resident is unable to swallow (with or without symptoms) and Glucose results less than 70 give GLucose 40% Gel 1 tube orally - Recheck Glucose 15 minutes after administratio n. 1 tube 2023 Active 2023 39075 88228 8 By Mouth False Lorazepam 0.5 mg tablet [generic] 0.5 mg By Mouth Every 8 hours as needed For Anxiety 0.5 mg 11/18 Inactiv e 2023 62453 90705 0 Every 8 hours as needed By Mouth False Potassium chloride ER 20 mEq tablet,exte nded release [generic] 40 meq By Mouth Once daily For Hypokalemia 40 meq 11/13 Inactiv e 2023 18409 84914 1 Once daily By Mouth False Colesevelam 625 mg tablet [generic] 1250 mg By Mouth Twice daily For TYPE 2 DIABETES MELLITUS WITHOUT COMPLICATIONS 1250 mg 11/19 Inactiv e 2023 09735 63106 1 Twice daily By Mouth E11.9 False Pioglitazon e 15 mg tablet [generic] 15 mg By Mouth Once daily For TYPE 2 DIABETES MELLITUS WITHOUT COMPLICATIONS 15 mg 11/14 Inactiv e 2023 51953 46541 1 Once daily By Mouth E11.9 False Cholecalcif hardeep (vitamin D3) 50 mcg (2,000 unit) tablet [generic] 50 mcg By Mouth Once daily For Supplement 50 mcg 2023 Active 2023 03787 41005 1 Once daily By Mouth False Colchicine 0.6 mg tablet [generic] 0.6 mg By Mouth Twice daily As Needed For Gout 0.6 mg 2023 Active 2023 27902 28459 4 Twice daily By Mouth False Levothyroxi ne 200 mcg tablet [generic] 200 mcg By Mouth Once daily For Hypothyroidis m 200 mcg 202300 0000 Active 2023 28313 92096 0 Once daily By Mouth False Ondansetron 4 mg disintegrat ing tablet [generic] 4 mg By Mouth Every 6 hours as needed For Nausea 4 mg 11/12 Inactiv e 2023 04680 21509 4 Every 6 hours as needed By Mouth False Docusate sodium 100 mg capsule [generic] 100 mg By Mouth Twice daily For Constipation 100 mg 202300 0000 Active 2023 01421 80109 1 Twice daily By Mouth False Oxycodone 5 mg tablet [generic] 5 mg By Mouth Every 6 hours as needed For Pain 5 mg 11/12 Inactiv e 2023 72961 72792 1 Every 6 hours as needed By Mouth False Oxycodone 5 mg tablet [generic] 5 mg By Mouth Every 6 hours as needed For Pain 5 mg 11/18 Inactiv e 2023 89766 96855 1 Every 6 hours as needed By Mouth False Milk of Magnesia 400 mg/5 mL oral suspension 30 ml By Mouth one time per day as needed if no BM x 3 days For Constipation 30 ml 202300 Active 2023 48088 97270 2 By Mouth False Ondansetron 4 mg disintegrat ing tablet [generic] 11/12 Inactiv e 2023 42645 33174 4 Ondansetron 4 mg disintegrat ing tablet [generic] 4 mg By Mouth Every 6 hours as needed For Nausea 4 mg 11/14 Inactiv e 2023 96562 10377 4 Every 6 hours as needed By Mouth False Potassium chloride ER 10 mEq capsule,ext ended release [generic] 40 mEq By Mouth Once daily For hypokalemia 40 mEq 11/17 Inactiv e 2023 55182 13996 1 Once daily By Mouth False Potassium chloride ER 10 mEq capsule,ext ended release [generic] 4 capsules By Mouth At bedtime For hypokalemia 4 capsule s 11/16 Inactiv e 2023 63689 18660 1 At bedtime By Mouth False Flomax 0.4 mg capsule 0.4 mg By Mouth At bedtime For Urinary retention 0.4 mg 11/18 Inactiv e 2023 58150 66090 1 At bedtime By Mouth False STOOL CULTURE Once daily Obtain stool culture, add C. Diff to routine stool culture For Rule out C. Diff 1x 2023 Active 2023 Once daily Other False Butrans 5 mcg/hour transdermal patch 1 patch Transdermal Every 7 Days For Pain 1 patch 11/20 Inactiv e 2023 05319 94622 4 Every week Transd ermal False Pantoprazol e 40 mg tablet,nu yed release [generic] 40 mg By Mouth Twice daily For gerd 40 mg 2023 Active 2023 23940 13583 0 Twice daily By Mouth False Scopolamine 1 mg over 3 days transdermal patch [generic] 1 Transdermal Every 72 hours For nausea 1 11/20 Inactiv e 2023 23791 17451 4 Every 72 hours Transd ermal False Ondansetron 4 mg disintegrat ing tablet [generic] 11/14 Inactiv e 2023 05435 03249 4 Ondansetron 4 mg disintegrat ing tablet [generic] 4 mg By Mouth Every 8 hours For Nausea 4 mg 2023 Active 2023 66198 71072 4 Every 8 hours By Mouth False Miralax 17 gram oral powder packet 8.5 g (1/2 capful) By Mouth Once daily For constipation 8.5 g 11/18 Inactiv e 2023 73382 17146 6 Once daily By Mouth False Pioglitazon e 15 mg tablet [generic] 11/14 Inactiv e 2023 82435 36006 1 E11.9 Pioglitazon e 15 mg tablet [generic] 7.5mg ( half a tab) By Mouth Once daily For TYPE 2 DIABETES MELLITUS WITHOUT COMPLICATIONS 7.5mg 2023 Active 2023 48842 63547 1 Once daily By Mouth E11.9 False Mylanta Coat-Cool 1,200 mg-270 mg-80 mg/10 mL oral suspension 10 ml By Mouth Every 8 hours As Needed For heartburn, indigestion, gas 10 ml 2023 Active 2023 21918 45123 1 Every 8 hours By Mouth False Prochlorper azine maleate 5 mg tablet [generic] 5 mg By Mouth Every 8 hours as needed For Nausea 5 mg 2023 Active 2023 77854 20845 1 Every 8 hours as needed By Mouth False Potassium chloride ER 10 mEq capsule,ext ended release [generic] 10 meq By Mouth 4 times a day For Hypokalemia 10 meq 11/20 Inactiv e 2023 30655 83971 1 4 times a day By Mouth False Lorazepam 0.5 mg tablet [generic] 11/18 Inactiv e 2023 13280 39387 0 Lorazepam 0.5 mg tablet [generic] 0.5 mg By Mouth Every 8 hours as needed For Anxiety 0.5 mg 12/18 Active 2023 39095 07017 0 Every 8 hours as needed By Mouth False Flomax 0.4 mg capsule 11/18 Inactiv e 2023 32276 28472 1 Flomax 0.4 mg capsule 0.4 mg By Mouth Once daily For Urinary retention 0.4 mg 11/19 Inactiv e 2023 42695 59948 1 Once daily By Mouth False Oxycodone 5 mg tablet [generic] 11/18 Inactiv e 2023 24189 87955 1 Oxycodone 5 mg tablet [generic] 5 mg By Mouth Every 6 hours as needed For Back Pain 5 mg 2023 Active 2023 41564 32382 1 Every 6 hours as needed By Mouth False Cipro 250 mg tablet 250 mg By Mouth Twice daily For UTI 250 mg 11/19 Inactiv e 2023 23801 72781 1 Twice daily By Mouth False Senna 8.6 mg tablet 17.2 mg By Mouth Twice daily For Constipation 17.2 mg 2023 Active 2023 88357 70577 1 Twice daily By Mouth False Zyprexa 2.5 mg tablet 2.5 mg By Mouth At bedtime For persistent nausea 2.5 mg 2023 Active 2023 03250 70764 0 At bedtime By Mouth False MAGNESSIUM GLUCONATE 500mg By Mouth Every morning For Supplement 500mg 2023 Active 2023 Every morning By Mouth False Cipro 250 mg tablet 11/19 Inactiv e 2023 93276 65465 1 Cipro 250 mg tablet 250 mg By Mouth Twice daily For UTI 250 mg 11/26 Active 2023 78739 32071 1 Twice daily By Mouth False Flomax 0.4 mg capsule 11/19 Inactiv e 2023 02185 43678 1 Flomax 0.4 mg capsule 0.4 mg By Mouth Once daily For Urinary retention 0.4 mg 11/20 Inactiv e 2023 42137 48307 1 Once daily By Mouth False Motrin IB 200 mg tablet 600 mg By Mouth Every 12 hours As Needed For Pain 600 mg 11/20 Inactiv e 2023 49648 97414 2 Every 12 hours By Mouth False Motrin IB 200 mg tablet 600 mg By Mouth Every 12 hours As Needed For Pain 600 mg 11/20 Inactiv e 2023 07584 60623 2 Every 12 hours By Mouth False Motrin IB 200 mg tablet 600 mg By Mouth Every 12 hours As Needed For Pain 600 mg 11/27 Active 2023 14284 89501 2 Every 12 hours By Mouth False Flomax 0.4 mg capsule 0.4 mg By Mouth Once daily For Urinary retention 0.4 mg 11/21 Inactiv e 2023 98641 83303 1 Once daily By Mouth False Scopolamine 1 mg over 3 days transdermal patch [generic] 1 Transdermal Every 72 hours For nausea 1 11/22 Inactiv e 2023 37538 57904 4 Every 72 hours Transd ermal False Butrans 7.5 mcg/hour transdermal patch 1 patch Transdermal Every 7 Days For Pain 1 patch 202300 0000 Active 2023 86538 12594 4 Every week Transd ermal False Tizanidine 2 mg tablet [generic] 2mg By Mouth At bedtime For Muscle spasms 2mg 202300 /0000 Active 2023 61236 14604 0 At bedtime By Mouth False Prednisone 20 mg tablet [generic] 60 mg By Mouth 1 time For Sciatica Pain 60 mg 11/22 Inactiv e 2023 18609 46179 1 1 time By Mouth False Prednisone 20 mg tablet [generic] 40mg By Mouth 1 time For Sciatica Pain 40mg 11/23 Inactiv e 2023 71246 79435 1 1 time By Mouth False Prednisone 20 mg tablet [generic] 20mg By Mouth 1 time For Sciatica 20mg 11/24 Inactiv e 2023 24968 35203 1 1 time By Mouth False ACCU [...] order For Steroid Therapy 11/28 Active 2023 71587 79147 9 Twice daily Subcut aneous False Flomax 0.4 mg capsule 1 capsule By Mouth At bedtime For urinary retnetion 1 capsule 12/24 Active 2023 72042 66581 1 At bedtime By Mouth False Problems [...] weight Temperature SpO2 Blood Sugar Pulse Respirations 76276 5 75.00 mm[Hg] - Sitting 140.00 mm[Hg] - Sitting 65 NI 98.00 Tympanic 95.00 % 102.00 /min 18.00/min 13297 918 35655 9 59436 918 33411 2 75.00 mm[Hg] - Sitting 140.00 mm[Hg] - Sitting 98.00 Tympanic 102.00 /min 18.00/min 12265 918 09451 3 63607 918 33357 1 72.00 mm[Hg] - Sitting 138.00 mm[Hg] - Sitting 98.40 Tympanic 918 64810 4 88.00/ min 18.00/min 919 97688 4 71.00 mm[Hg] - Sitting 115.00 mm[Hg] - Sitting 98.30 Tympanic 97.00 % 86.00/ min 16.00/min 58153 919 40174 0 71.00 mm[Hg] - Sitting 115.00 mm[Hg] - Sitting 98.30 Tympanic 86.00/ min 16.00/min 04735 919 98853 7 71.00 mm[Hg] - Sitting 115.00 mm[Hg] - Sitting 98.30 Tympanic 86.00/ min 16.00/min 22567 920 55942 6 72.00 mm[Hg] - Sitting 112.00 mm[Hg] - Sitting 98.10 Tympanic 82.00/ min 18.00/min 47432 920 96103 0 75.00 mm[Hg] - Sitting 130.00 mm[Hg] - Sitting 98.40 Forehead Scan 93.00 % 88.00/ min 18.00/min 99664 920 04136 2 75.00 mm[Hg] - Lying Down 130.00 mm[Hg] - Lying Down 98.40 Tympanic 88.00/ min 18.00/min 95719 920 09063 5 75.00 mm[Hg] - Lying Down 130.00 mm[Hg] - Lying Down 98.40 Tympanic 88.00/ min 18.00/min 37748 920 42274 6 199.00 [place] [address] 920 42119 3 75.00 mm[Hg] - Sitting 130.00 mm[Hg] - Sitting 98.40 Tympanic 88.00/ min 18.00/min 96655 921 34052 1 71.00 mm[Hg] - Lying Down 119.00 mm[Hg] - Lying Down 98.40 Forehead Scan 96.00 % 83.00/ min 16.00/min 31024 922 32929 6 71.00 mm[Hg] - Lying Down 128.00 mm[Hg] - Lying Down 98.30 Forehead Scan 94.00 % 84.00/ min 18.00/min 96025 923 96778 4 63.00 mm[Hg] - Sitting 105.00 mm[Hg] - Sitting 98.20 Tympanic 93.00 % 93.00/ min 18.00/min 04531 924 91151 8 66.00 mm[Hg] - Sitting 104.00 mm[Hg] - Sitting 98.20 Tympanic 98.00 % 84.00/ min 16.00/min 45347 925 58285 2 131.00 mg/dL 39556 925 12355 6 138.00 mg/dL 67998 926 14344 1 199.00 NI 41266 927 50888 7 98.40 Tympanic 87118 927 55206 0 78.00 mm[Hg] - Sitting 124.00 mm[Hg] - Sitting 98.30 Forehead Scan 95.00 % 83.00/ min 16.00/min 00311 927 34301 7 98.10 Tympanic 24783 928 25431 9 60.00 mm[Hg] - Sitting 99.00 mm[Hg] - Sitting 98.20 Tympanic 91.00 % 64.00/ min 16.00/min 98701 928 38689 0 98.40 Tympanic 67330 928 51369 0 235.00 mg/dL 79763 928 70182 2 98.30 Tympanic 00857 929 64264 0 159.00 mg/dL 83269 929 07403 1 98.10 Tympanic 47268 929 03190 5 97.90 Tympanic 22329 929 35771 1 72.00 mm[Hg] - Sitting 101.00 mm[Hg] - Sitting 97.90 Tympanic 92.00 % 65.00/ min 16.00/min
--- OUTSIDE RECORDS SUMMARY | 2023-12-13 23:54 | External Medical Summary | Continuity Of Care Document ---
Author Name Unknown Address [address] [place] [address] Organization [facility] () Care Team Providers Care Ems Manager Name Role Phone DO Parson Amy Primary Care Provider [phone] Allergies Allergy Reaction Start Date End Date [...] 3 0.1 mL 11/13 Inactiv e 2023 98027 07788 0 1 time Intrad ermal False Tubersol 5 tub. unit/0.1 mL intradermal injection solution [Tuberculin PPD] 0.1mL Intradermal 1 time For PPD 2nd Step Give 2nd Step PPD Day 1 and Read results Day 3 (schedule 7 days after 1st READ) 0.1mL 11/13 Inactiv e 2023 82697 03740 0 1 time Intrad ermal False DISCONTINUE as of 11/14/2023: Tubersol 5 tub. unit/0.1 mL intradermal injection solution [Tuberculin PPD] 11/13 Inactiv e 2023 84183 34780 0 Tubersol 5 tub. unit/0.1 mL intradermal injection solution 0.1 mL Intradermal 1 time For PPD Step 1 GIVE on Day 1 and read results Day 3 0.1 mL 11/16 Inactiv e 2023 57942 75406 1 1 time Intrad ermal False DISCONTINUE as of 11/14/2023: Tubersol 5 tub. unit/0.1 mL intradermal injection solution [Tuberculin PPD] 11/13 Inactiv e 2023 59819 95698 0 Tubersol 5 tub. unit/0.1 mL intradermal injection solution 0.1mL Intradermal 1 time For PPD 2nd Step Give 2nd Step PPD Day 1 and Read results Day 3 (schedule 7 days after 1st READ) 0.1mL 11/25 Active 2023 46681 99868 1 1 time Intrad ermal False Tylenol 325 mg tablet 2 tabs By Mouth Every 4 hours as needed For Pain DO NOT EXCEED 3000 MG APAP/24 Hours 2 tabs 202300 /0000 Active 2023 04298 34472 0 Every 4 hours as needed By Mouth False Tylenol 325 mg tablet 2 tabs By Mouth Every 4 hours as needed For Fever >100 DO NOT EXCEED 3000 MG APAP/24 Hours 2 tabs 202300 /0000 Active 2023 20536 31982 0 Every 4 hours as needed By Mouth False Dulcolax (bisacodyl) 10 mg rectal suppository One Suppository per rectum PRN if Milk of Magnisia ineffective. Give on day 5 of no BM 1 sup 2023 Active 2023 27725 09301 1 Daily as needed Rectal False Fleet Enema 19 gram-7 gram/118 mL Administer per rectum PRN one time if dulcolax suppository not effective. Give on day 6 of no BM 1 202300 0000 Active 2023 73661 59966 6 Daily as needed Rectal False Dextrose 50 % in water (D50W) intravenous solution [generic] Dextrose 50% reyes 20-50 ml (slow push) Intravenous if Glucagon not effective after 15 minutes. CALL 911 for ED Evaluation. 50% reyes 202300 /0000 Active 2023 11926 70571 9 Intrav enous False Glucagon (HCl) Emergency Kit 1 mg solution for injection Administer Glucagon 1 mg Intramuscular if 15 minutes after GLucose Gel is administered Glucose remains less than 70 1 mg 2023 Active 2023 04700 86530 2 Intram uscula r False Glucose Gel 40 % oral gel [Dextrose] PRN If resident is unable to swallow (with or without symptoms) and Glucose results less than 70 give GLucose 40% Gel 1 tube orally - Recheck Glucose 15 minutes after administratio n. 1 tube 2023 Active 2023 32981 10197 8 By Mouth False Lorazepam 0.5 mg tablet [generic] 0.5 mg By Mouth Every 8 hours as needed For Anxiety 0.5 mg 11/18 Inactiv e 2023 08273 24671 0 Every 8 hours as needed By Mouth False Potassium chloride ER 20 mEq tablet,exte nded release [generic] 40 meq By Mouth Once daily For Hypokalemia 40 meq 11/13 Inactiv e 2023 13371 38122 1 Once daily By Mouth False Colesevelam 625 mg tablet [generic] 1250 mg By Mouth Twice daily For TYPE 2 DIABETES MELLITUS WITHOUT COMPLICATIONS 1250 mg 11/19 Inactiv e 2023 08925 47610 1 Twice daily By Mouth E11.9 False Pioglitazon e 15 mg tablet [generic] 15 mg By Mouth Once daily For TYPE 2 DIABETES MELLITUS WITHOUT COMPLICATIONS 15 mg 11/14 Inactiv e 2023 73581 00905 1 Once daily By Mouth E11.9 False Cholecalcif hardeep (vitamin D3) 50 mcg (2,000 unit) tablet [generic] 50 mcg By Mouth Once daily For Supplement 50 mcg 2023 Active 2023 39872 03725 1 Once daily By Mouth False Colchicine 0.6 mg tablet [generic] 0.6 mg By Mouth Twice daily As Needed For Gout 0.6 mg 2023 Active 2023 59582 36096 4 Twice daily By Mouth False Levothyroxi ne 200 mcg tablet [generic] 200 mcg By Mouth Once daily For Hypothyroidis m 200 mcg 202300 0000 Active 2023 04448 69283 0 Once daily By Mouth False Ondansetron 4 mg disintegrat ing tablet [generic] 4 mg By Mouth Every 6 hours as needed For Nausea 4 mg 11/12 Inactiv e 2023 93180 33843 4 Every 6 hours as needed By Mouth False Docusate sodium 100 mg capsule [generic] 100 mg By Mouth Twice daily For Constipation 100 mg 202300 0000 Active 2023 95532 95628 1 Twice daily By Mouth False Oxycodone 5 mg tablet [generic] 5 mg By Mouth Every 6 hours as needed For Pain 5 mg 11/12 Inactiv e 2023 35280 87143 1 Every 6 hours as needed By Mouth False Oxycodone 5 mg tablet [generic] 5 mg By Mouth Every 6 hours as needed For Pain 5 mg 11/18 Inactiv e 2023 11375 05124 1 Every 6 hours as needed By Mouth False Milk of Magnesia 400 mg/5 mL oral suspension 30 ml By Mouth one time per day as needed if no BM x 3 days For Constipation 30 ml 202300 Active 2023 25868 40211 2 By Mouth False Ondansetron 4 mg disintegrat ing tablet [generic] 11/12 Inactiv e 2023 26927 65895 4 Ondansetron 4 mg disintegrat ing tablet [generic] 4 mg By Mouth Every 6 hours as needed For Nausea 4 mg 11/14 Inactiv e 2023 16164 93403 4 Every 6 hours as needed By Mouth False Potassium chloride ER 10 mEq capsule,ext ended release [generic] 40 mEq By Mouth Once daily For hypokalemia 40 mEq 11/17 Inactiv e 2023 02157 26031 1 Once daily By Mouth False Potassium chloride ER 10 mEq capsule,ext ended release [generic] 4 capsules By Mouth At bedtime For hypokalemia 4 capsule s 11/16 Inactiv e 2023 74319 02447 1 At bedtime By Mouth False Flomax 0.4 mg capsule 0.4 mg By Mouth At bedtime For Urinary retention 0.4 mg 11/18 Inactiv e 2023 16681 57617 1 At bedtime By Mouth False STOOL CULTURE Once daily Obtain stool culture, add C. Diff to routine stool culture For Rule out C. Diff 1x 2023 Active 2023 Once daily Other False Butrans 5 mcg/hour transdermal patch 1 patch Transdermal Every 7 Days For Pain 1 patch 11/20 Inactiv e 2023 09017 79929 4 Every week Transd ermal False Pantoprazol e 40 mg tablet,nu yed release [generic] 40 mg By Mouth Twice daily For gerd 40 mg 2023 Active 2023 65977 93946 0 Twice daily By Mouth False Scopolamine 1 mg over 3 days transdermal patch [generic] 1 Transdermal Every 72 hours For nausea 1 11/20 Inactiv e 2023 34031 86542 4 Every 72 hours Transd ermal False Ondansetron 4 mg disintegrat ing tablet [generic] 11/14 Inactiv e 2023 78449 33610 4 Ondansetron 4 mg disintegrat ing tablet [generic] 4 mg By Mouth Every 8 hours For Nausea 4 mg 2023 Active 2023 71503 55142 4 Every 8 hours By Mouth False Miralax 17 gram oral powder packet 8.5 g (1/2 capful) By Mouth Once daily For constipation 8.5 g 11/18 Inactiv e 2023 90817 03118 6 Once daily By Mouth False Pioglitazon e 15 mg tablet [generic] 11/14 Inactiv e 2023 95209 81718 1 E11.9 Pioglitazon e 15 mg tablet [generic] 7.5mg ( half a tab) By Mouth Once daily For TYPE 2 DIABETES MELLITUS WITHOUT COMPLICATIONS 7.5mg 2023 Active 2023 45125 40741 1 Once daily By Mouth E11.9 False Mylanta Coat-Cool 1,200 mg-270 mg-80 mg/10 mL oral suspension 10 ml By Mouth Every 8 hours As Needed For heartburn, indigestion, gas 10 ml 2023 Active 2023 16200 35077 1 Every 8 hours By Mouth False Prochlorper azine maleate 5 mg tablet [generic] 5 mg By Mouth Every 8 hours as needed For Nausea 5 mg 2023 Active 2023 98356 93518 1 Every 8 hours as needed By Mouth False Potassium chloride ER 10 mEq capsule,ext ended release [generic] 10 meq By Mouth 4 times a day For Hypokalemia 10 meq 11/20 Inactiv e 2023 37827 06545 1 4 times a day By Mouth False Lorazepam 0.5 mg tablet [generic] 11/18 Inactiv e 2023 84325 15435 0 Lorazepam 0.5 mg tablet [generic] 0.5 mg By Mouth Every 8 hours as needed For Anxiety 0.5 mg 12/18 Active 2023 48188 52613 0 Every 8 hours as needed By Mouth False Flomax 0.4 mg capsule 11/18 Inactiv e 2023 65943 66026 1 Flomax 0.4 mg capsule 0.4 mg By Mouth Once daily For Urinary retention 0.4 mg 11/19 Inactiv e 2023 90572 63254 1 Once daily By Mouth False Oxycodone 5 mg tablet [generic] 11/18 Inactiv e 2023 98689 53170 1 Oxycodone 5 mg tablet [generic] 5 mg By Mouth Every 6 hours as needed For Back Pain 5 mg 2023 Active 2023 41068 17957 1 Every 6 hours as needed By Mouth False Cipro 250 mg tablet 250 mg By Mouth Twice daily For UTI 250 mg 11/19 Inactiv e 2023 35860 41131 1 Twice daily By Mouth False Senna 8.6 mg tablet 17.2 mg By Mouth Twice daily For Constipation 17.2 mg 2023 Active 2023 10257 33689 1 Twice daily By Mouth False Zyprexa 2.5 mg tablet 2.5 mg By Mouth At bedtime For persistent nausea 2.5 mg 2023 Active 2023 07325 39742 0 At bedtime By Mouth False MAGNESSIUM GLUCONATE 500mg By Mouth Every morning For Supplement 500mg 2023 Active 2023 Every morning By Mouth False Cipro 250 mg tablet 11/19 Inactiv e 2023 19138 18042 1 Cipro 250 mg tablet 250 mg By Mouth Twice daily For UTI 250 mg 11/26 Active 2023 81078 12430 1 Twice daily By Mouth False Flomax 0.4 mg capsule 11/19 Inactiv e 2023 99551 42333 1 Flomax 0.4 mg capsule 0.4 mg By Mouth Once daily For Urinary retention 0.4 mg 11/20 Inactiv e 2023 18432 15752 1 Once daily By Mouth False Motrin IB 200 mg tablet 600 mg By Mouth Every 12 hours As Needed For Pain 600 mg 11/20 Inactiv e 2023 33848 77895 2 Every 12 hours By Mouth False Motrin IB 200 mg tablet 600 mg By Mouth Every 12 hours As Needed For Pain 600 mg 11/20 Inactiv e 2023 48167 64892 2 Every 12 hours By Mouth False Motrin IB 200 mg tablet 600 mg By Mouth Every 12 hours As Needed For Pain 600 mg 11/27 Active 2023 68878 39484 2 Every 12 hours By Mouth False Flomax 0.4 mg capsule 0.4 mg By Mouth Once daily For Urinary retention 0.4 mg 11/21 Inactiv e 2023 09262 02236 1 Once daily By Mouth False Scopolamine 1 mg over 3 days transdermal patch [generic] 1 Transdermal Every 72 hours For nausea 1 11/22 Inactiv e 2023 51472 27934 4 Every 72 hours Transd ermal False Butrans 7.5 mcg/hour transdermal patch 1 patch Transdermal Every 7 Days For Pain 1 patch 202300 0000 Active 2023 58997 56299 4 Every week Transd ermal False Tizanidine 2 mg tablet [generic] 2mg By Mouth At bedtime For Muscle spasms 2mg 202300 0000 Active 2023 60973 59689 0 At bedtime By Mouth False Prednisone 20 mg tablet [generic] 60 mg By Mouth 1 time For Sciatica Pain 60 mg 11/22 Inactiv e 2023 63017 17899 1 1 time By Mouth False Prednisone 20 mg tablet [generic] 40mg By Mouth 1 time For Sciatica Pain 40mg 11/23 Inactiv e 2023 05408 24312 1 1 time By Mouth False Prednisone 20 mg tablet [generic] 20mg By Mouth 1 time For Sciatica 20mg 11/24 Active 2023 15269 48045 1 1 time By Mouth False ACCU [...] order For Steroid Therapy 11/28 Active 2023 83488 79667 9 Twice daily Subcut aneous False Problems [...] Temperature SpO2 Blood Sugar Pulse Respirations 8 49987 5 75.00 mm[Hg] - Sitting 140.00 mm[Hg] - Sitting 65 NI 98.00 Tympanic 95.00 % 102.00 /min 18.00/min 918 54755 9 918 65716 2 75.00 mm[Hg] - Sitting 140.00 mm[Hg] - Sitting 98.00 Tympanic 102.00 /min 18.00/min 918 42814 3 62872 918 40583 1 72.00 mm[Hg] - Sitting 138.00 mm[Hg] - Sitting 98.40 Tympanic 8 54312 4 88.00/ min 18.00/min 919 40053 4 71.00 mm[Hg] - Sitting 115.00 mm[Hg] - Sitting 98.30 Tympanic 97.00 % 86.00/ min 16.00/min 57374 919 62120 0 71.00 mm[Hg] - Sitting 115.00 mm[Hg] - Sitting 98.30 Tympanic 86.00/ min 16.00/min 79463 919 48998 7 71.00 mm[Hg] - Sitting 115.00 mm[Hg] - Sitting 98.30 Tympanic 86.00/ min 16.00/min 93820 920 60785 6 72.00 mm[Hg] - Sitting 112.00 mm[Hg] - Sitting 98.10 Tympanic 82.00/ min 18.00/min 920 32779 0 75.00 mm[Hg] - Sitting 130.00 mm[Hg] - Sitting 98.40 Forehead Scan 93.00 % 88.00/ min 18.00/min 49374 920 63815 2 75.00 mm[Hg] - Lying Down 130.00 mm[Hg] - Lying Down 98.40 Tympanic 88.00/ min 18.00/min 58477 920 66420 5 75.00 mm[Hg] - Lying Down 130.00 mm[Hg] - Lying Down 98.40 Tympanic 88.00/ min 18.00/min 920 22624 6 199.00 NI 920 96997 3 75.00 mm[Hg] - Sitting 130.00 mm[Hg] - Sitting 98.40 Tympanic 88.00/ min 18.00/min 17685 921 29537 1 71.00 mm[Hg] - Lying Down 119.00 mm[Hg] - Lying Down 98.40 Forehead Scan 96.00 % 83.00/ min 16.00/min 01260 922 95426 6 71.00 mm[Hg] - Lying Down 128.00 mm[Hg] - Lying Down 98.30 Forehead Scan 94.00 % 84.00/ min 18.00/min 33204 923 37005 4 63.00 mm[Hg] - Sitting 105.00 mm[Hg] - Sitting 98.20 Tympanic 93.00 % 93.00/ min 18.00/min 85476 924 65200 8 66.00 mm[Hg] - Sitting 104.00 mm[Hg] - Sitting 98.20 Tympanic 98.00 % 84.00/ min 16.00/min 58196 925 35180 2 131.00 mg/dL 57639 925 19978 6 138.00 mg/dL 51381 926 76405 1 199.00 NI 16708 927 24796 7 98.40 Tympanic 18287 927 73456 0 78.00 mm[Hg] - Sitting 124.00 mm[Hg] - Sitting 98.30 Forehead Scan 95.00 % 83.00/ min 16.00/min 39007 927 83327 7 98.10 Tympanic 35218 928 76984 9 60.00 mm[Hg] - Sitting 99.00 mm[Hg] - Sitting 98.20 Tympanic 91.00 % 64.00/ min 16.00/min 44948 928 07505 0 98.40 Tympanic 71676 928 07681 0 235.00 mg/dL 98677 928 79665 2 98.30 Tympanic 09553 929 60129 0 159.00 mg/dL 77342 929 00784 1 98.10 Tympanic 57793 929 66559 5 97.90 Tympanic 82694 929 62590 1 72.00 mm[Hg] - Sitting 101.00 mm[Hg] - Sitting 97.90 Tympanic 92.00 % 65.00/ min 16.00/min
--- OUTSIDE RECORDS SUMMARY | 2023-12-13 23:54 | External Medical Summary | Continuity Of Care Document ---
Author Name Unknown Address [address] [place] [address] Organization [facility] () Care Team Providers Care [place] Rental Clerk Name Role Phone DO Parson Amy Primary Care Provider [phone] Allergies Allergy Reaction Start Date End Date [...] 3 0.1 mL 11/13 Inactiv e 2023 61797 09759 0 1 time Intrad ermal False Tubersol 5 tub. unit/0.1 mL intradermal injection solution [Tuberculin PPD] 0.1mL Intradermal 1 time For PPD 2nd Step Give 2nd Step PPD Day 1 and Read results Day 3 (schedule 7 days after 1st READ) 0.1mL 11/13 Inactiv e 2023 59510 26523 0 1 time Intrad ermal False DISCONTINUE as of 11/14/2023: Tubersol 5 tub. unit/0.1 mL intradermal injection solution [Tuberculin PPD] 11/13 Inactiv e 2023 80136 98680 0 Tubersol 5 tub. unit/0.1 mL intradermal injection solution 0.1 mL Intradermal 1 time For PPD Step 1 GIVE on Day 1 and read results Day 3 0.1 mL 11/16 Inactiv e 2023 38377 30585 1 1 time Intrad ermal False DISCONTINUE as of 11/14/2023: Tubersol 5 tub. unit/0.1 mL intradermal injection solution [Tuberculin PPD] 11/13 Inactiv e 2023 51345 00030 0 Tubersol 5 tub. unit/0.1 mL intradermal injection solution 0.1mL Intradermal 1 time For PPD 2nd Step Give 2nd Step PPD Day 1 and Read results Day 3 (schedule 7 days after 1st READ) 0.1mL 11/25 Active 2023 23035 37787 1 1 time Intrad ermal False Tylenol 325 mg tablet 2 tabs By Mouth Every 4 hours as needed For Pain DO NOT EXCEED 3000 MG APAP/24 Hours 2 tabs 202300 /0000 Active 2023 88440 11410 0 Every 4 hours as needed By Mouth False Tylenol 325 mg tablet 2 tabs By Mouth Every 4 hours as needed For Fever >100 DO NOT EXCEED 3000 MG APAP/24 Hours 2 tabs 202300 /0000 Active 2023 30945 76363 0 Every 4 hours as needed By Mouth False Dulcolax (bisacodyl) 10 mg rectal suppository One Suppository per rectum PRN if Milk of Magnisia ineffective. Give on day 5 of no BM 1 sup 2023 Active 2023 98081 77285 1 Daily as needed Rectal False Fleet Enema 19 gram-7 gram/118 mL Administer per rectum PRN one time if dulcolax suppository not effective. Give on day 6 of no BM 1 202300 0000 Active 2023 17669 86509 6 Daily as needed Rectal False Dextrose 50 % in water (D50W) intravenous solution [generic] Dextrose 50% reyes 20-50 ml (slow push) Intravenous if Glucagon not effective after 15 minutes. CALL 911 for ED Evaluation. 50% reyes 202300 /0000 Active 2023 97631 76157 9 Intrav enous False Glucagon (HCl) Emergency Kit 1 mg solution for injection Administer Glucagon 1 mg Intramuscular if 15 minutes after GLucose Gel is administered Glucose remains less than 70 1 mg 2023 Active 2023 41998 76726 2 Intram uscula r False Glucose Gel 40 % oral gel [Dextrose] PRN If resident is unable to swallow (with or without symptoms) and Glucose results less than 70 give GLucose 40% Gel 1 tube orally - Recheck Glucose 15 minutes after administratio n. 1 tube 2023 Active 2023 78153 48077 8 By Mouth False Lorazepam 0.5 mg tablet [generic] 0.5 mg By Mouth Every 8 hours as needed For Anxiety 0.5 mg 11/18 Inactiv e 2023 43894 96979 0 Every 8 hours as needed By Mouth False Potassium chloride ER 20 mEq tablet,exte nded release [generic] 40 meq By Mouth Once daily For Hypokalemia 40 meq 11/13 Inactiv e 2023 87576 94462 1 Once daily By Mouth False Colesevelam 625 mg tablet [generic] 1250 mg By Mouth Twice daily For TYPE 2 DIABETES MELLITUS WITHOUT COMPLICATIONS 1250 mg 11/19 Inactiv e 2023 69622 83610 1 Twice daily By Mouth E11.9 False Pioglitazon e 15 mg tablet [generic] 15 mg By Mouth Once daily For TYPE 2 DIABETES MELLITUS WITHOUT COMPLICATIONS 15 mg 11/14 Inactiv e 2023 79267 41687 1 Once daily By Mouth E11.9 False Cholecalcif hardeep (vitamin D3) 50 mcg (2,000 unit) tablet [generic] 50 mcg By Mouth Once daily For Supplement 50 mcg 2023 Active 2023 78830 78812 1 Once daily By Mouth False Colchicine 0.6 mg tablet [generic] 0.6 mg By Mouth Twice daily As Needed For Gout 0.6 mg 2023 Active 2023 03514 78715 4 Twice daily By Mouth False Levothyroxi ne 200 mcg tablet [generic] 200 mcg By Mouth Once daily For Hypothyroidis m 200 mcg 202300 0000 Active 2023 83971 06804 0 Once daily By Mouth False Ondansetron 4 mg disintegrat ing tablet [generic] 4 mg By Mouth Every 6 hours as needed For Nausea 4 mg 11/12 Inactiv e 2023 18769 44528 4 Every 6 hours as needed By Mouth False Docusate sodium 100 mg capsule [generic] 100 mg By Mouth Twice daily For Constipation 100 mg 202300 0000 Active 2023 95654 26867 1 Twice daily By Mouth False Oxycodone 5 mg tablet [generic] 5 mg By Mouth Every 6 hours as needed For Pain 5 mg 11/12 Inactiv e 2023 46693 94164 1 Every 6 hours as needed By Mouth False Oxycodone 5 mg tablet [generic] 5 mg By Mouth Every 6 hours as needed For Pain 5 mg 11/18 Inactiv e 2023 63069 82546 1 Every 6 hours as needed By Mouth False Milk of Magnesia 400 mg/5 mL oral suspension 30 ml By Mouth one time per day as needed if no BM x 3 days For Constipation 30 ml 202300 Active 2023 76671 64301 2 By Mouth False Ondansetron 4 mg disintegrat ing tablet [generic] 11/12 Inactiv e 2023 95127 28823 4 Ondansetron 4 mg disintegrat ing tablet [generic] 4 mg By Mouth Every 6 hours as needed For Nausea 4 mg 11/14 Inactiv e 2023 24885 82645 4 Every 6 hours as needed By Mouth False Potassium chloride ER 10 mEq capsule,ext ended release [generic] 40 mEq By Mouth Once daily For hypokalemia 40 mEq 11/17 Inactiv e 2023 95616 31782 1 Once daily By Mouth False Potassium chloride ER 10 mEq capsule,ext ended release [generic] 4 capsules By Mouth At bedtime For hypokalemia 4 capsule s 11/16 Inactiv e 2023 28529 62108 1 At bedtime By Mouth False Flomax 0.4 mg capsule 0.4 mg By Mouth At bedtime For Urinary retention 0.4 mg 11/18 Inactiv e 2023 29287 33408 1 At bedtime By Mouth False STOOL CULTURE Once daily Obtain stool culture, add C. Diff to routine stool culture For Rule out C. Diff 1x 2023 Active 2023 Once daily Other False Butrans 5 mcg/hour transdermal patch 1 patch Transdermal Every 7 Days For Pain 1 patch 11/20 Inactiv e 2023 69006 85061 4 Every week Transd ermal False Pantoprazol e 40 mg tablet,nu yed release [generic] 40 mg By Mouth Twice daily For gerd 40 mg 2023 Active 2023 90041 73720 0 Twice daily By Mouth False Scopolamine 1 mg over 3 days transdermal patch [generic] 1 Transdermal Every 72 hours For nausea 1 11/20 Inactiv e 2023 93339 50148 4 Every 72 hours Transd ermal False Ondansetron 4 mg disintegrat ing tablet [generic] 11/14 Inactiv e 2023 44169 61837 4 Ondansetron 4 mg disintegrat ing tablet [generic] 4 mg By Mouth Every 8 hours For Nausea 4 mg 2023 Active 2023 88214 30173 4 Every 8 hours By Mouth False Miralax 17 gram oral powder packet 8.5 g (1/2 capful) By Mouth Once daily For constipation 8.5 g 11/18 Inactiv e 2023 19703 62426 6 Once daily By Mouth False Pioglitazon e 15 mg tablet [generic] 11/14 Inactiv e 2023 70050 43156 1 E11.9 Pioglitazon e 15 mg tablet [generic] 7.5mg ( half a tab) By Mouth Once daily For TYPE 2 DIABETES MELLITUS WITHOUT COMPLICATIONS 7.5mg 2023 Active 2023 60377 43444 1 Once daily By Mouth E11.9 False Mylanta Coat-Cool 1,200 mg-270 mg-80 mg/10 mL oral suspension 10 ml By Mouth Every 8 hours As Needed For heartburn, indigestion, gas 10 ml 2023 Active 2023 92564 38368 1 Every 8 hours By Mouth False Prochlorper azine maleate 5 mg tablet [generic] 5 mg By Mouth Every 8 hours as needed For Nausea 5 mg 2023 Active 2023 74209 53192 1 Every 8 hours as needed By Mouth False Potassium chloride ER 10 mEq capsule,ext ended release [generic] 10 meq By Mouth 4 times a day For Hypokalemia 10 meq 11/20 Inactiv e 2023 79331 43369 1 4 times a day By Mouth False Lorazepam 0.5 mg tablet [generic] 11/18 Inactiv e 2023 87120 63336 0 Lorazepam 0.5 mg tablet [generic] 0.5 mg By Mouth Every 8 hours as needed For Anxiety 0.5 mg 12/18 Active 2023 41010 86454 0 Every 8 hours as needed By Mouth False Flomax 0.4 mg capsule 11/18 Inactiv e 2023 96195 29843 1 Flomax 0.4 mg capsule 0.4 mg By Mouth Once daily For Urinary retention 0.4 mg 11/19 Inactiv e 2023 43446 24804 1 Once daily By Mouth False Oxycodone 5 mg tablet [generic] 11/18 Inactiv e 2023 55766 28273 1 Oxycodone 5 mg tablet [generic] 5 mg By Mouth Every 6 hours as needed For Back Pain 5 mg 2023 Active 2023 37861 90073 1 Every 6 hours as needed By Mouth False Cipro 250 mg tablet 250 mg By Mouth Twice daily For UTI 250 mg 11/19 Inactiv e 2023 02465 00633 1 Twice daily By Mouth False Senna 8.6 mg tablet 17.2 mg By Mouth Twice daily For Constipation 17.2 mg 2023 Active 2023 77627 99015 1 Twice daily By Mouth False Zyprexa 2.5 mg tablet 2.5 mg By Mouth At bedtime For persistent nausea 2.5 mg 2023 Active 2023 70546 23714 0 At bedtime By Mouth False MAGNESSIUM GLUCONATE 500mg By Mouth Every morning For Supplement 500mg 2023 Active 2023 Every morning By Mouth False Cipro 250 mg tablet 11/19 Inactiv e 2023 20142 82815 1 Cipro 250 mg tablet 250 mg By Mouth Twice daily For UTI 250 mg 11/26 Active 2023 72836 08998 1 Twice daily By Mouth False Flomax 0.4 mg capsule 11/19 Inactiv e 2023 04748 66585 1 Flomax 0.4 mg capsule 0.4 mg By Mouth Once daily For Urinary retention 0.4 mg 11/20 Inactiv e 2023 14482 68123 1 Once daily By Mouth False Motrin IB 200 mg tablet 600 mg By Mouth Every 12 hours As Needed For Pain 600 mg 11/20 Inactiv e 2023 37883 90815 2 Every 12 hours By Mouth False Motrin IB 200 mg tablet 600 mg By Mouth Every 12 hours As Needed For Pain 600 mg 11/20 Inactiv e 2023 18344 59887 2 Every 12 hours By Mouth False Motrin IB 200 mg tablet 600 mg By Mouth Every 12 hours As Needed For Pain 600 mg 11/27 Active 2023 10042 63654 2 Every 12 hours By Mouth False Flomax 0.4 mg capsule 0.4 mg By Mouth Once daily For Urinary retention 0.4 mg 11/21 Inactiv e 2023 25488 69763 1 Once daily By Mouth False Scopolamine 1 mg over 3 days transdermal patch [generic] 1 Transdermal Every 72 hours For nausea 1 11/22 Inactiv e 2023 71322 81706 4 Every 72 hours Transd ermal False Butrans 7.5 mcg/hour transdermal patch 1 patch Transdermal Every 7 Days For Pain 1 patch 202300 0000 Active 2023 72368 64360 4 Every week Transd ermal False Tizanidine 2 mg tablet [generic] 2mg By Mouth At bedtime For Muscle spasms 2mg 202300 0000 Active 2023 89862 56974 0 At bedtime By Mouth False Prednisone 20 mg tablet [generic] 60 mg By Mouth 1 time For Sciatica Pain 60 mg 11/22 Inactiv e 2023 17404 25798 1 1 time By Mouth False Prednisone 20 mg tablet [generic] 40mg By Mouth 1 time For Sciatica Pain 40mg 11/23 Active 2023 73968 25346 1 1 time By Mouth False Prednisone 20 mg tablet [generic] 20mg By Mouth 1 time For Sciatica 20mg 11/24 Active 2023 43152 98726 1 1 time By Mouth False ACCU [...] order For Steroid Therapy 11/28 Active 2023 31671 23168 9 Twice daily Subcut aneous False Problems [...] Temperature SpO2 Blood Sugar Pulse Respirations 8 81972 5 75.00 mm[Hg] - Sitting 140.00 mm[Hg] - Sitting 65 NI 98.00 Tympanic 95.00 % 102.00 /min 18.00/min 918 13800 9 918 86721 2 75.00 mm[Hg] - Sitting 140.00 mm[Hg] - Sitting 98.00 Tympanic 102.00 /min 18.00/min 78938 918 60258 3 72370 918 84323 1 72.00 mm[Hg] - Sitting 138.00 mm[Hg] - Sitting 98.40 Tympanic 8 61424 4 88.00/ min 18.00/min 919 73716 4 71.00 mm[Hg] - Sitting 115.00 mm[Hg] - Sitting 98.30 Tympanic 97.00 % 86.00/ min 16.00/min 919 27848 0 71.00 mm[Hg] - Sitting 115.00 mm[Hg] - Sitting 98.30 Tympanic 86.00/ min 16.00/min 69248 919 32002 7 71.00 mm[Hg] - Sitting 115.00 mm[Hg] - Sitting 98.30 Tympanic 86.00/ min 16.00/min 81211 920 76235 6 72.00 mm[Hg] - Sitting 112.00 mm[Hg] - Sitting 98.10 Tympanic 82.00/ min 18.00/min 920 17599 0 75.00 mm[Hg] - Sitting 130.00 mm[Hg] - Sitting 98.40 Forehead Scan 93.00 % 88.00/ min 18.00/min 920 99131 2 75.00 mm[Hg] - Lying Down 130.00 mm[Hg] - Lying Down 98.40 Tympanic 88.00/ min 18.00/min 47361 920 73392 5 75.00 mm[Hg] - Lying Down 130.00 mm[Hg] - Lying Down 98.40 Tympanic 88.00/ min 18.00/min 920 90238 6 199.00 NI 920 66174 3 75.00 mm[Hg] - Sitting 130.00 mm[Hg] - Sitting 98.40 Tympanic 88.00/ min 18.00/min 17555 921 67800 1 71.00 mm[Hg] - Lying Down 119.00 mm[Hg] - Lying Down 98.40 Forehead Scan 96.00 % 83.00/ min 16.00/min 61605 922 90582 6 71.00 mm[Hg] - Lying Down 128.00 mm[Hg] - Lying Down 98.30 Forehead Scan 94.00 % 84.00/ min 18.00/min 26784 923 77030 4 63.00 mm[Hg] - Sitting 105.00 mm[Hg] - Sitting 98.20 Tympanic 93.00 % 93.00/ min 18.00/min 47441 924 84876 8 66.00 mm[Hg] - Sitting 104.00 mm[Hg] - Sitting 98.20 Tympanic 98.00 % 84.00/ min 16.00/min 29849 925 85598 2 131.00 mg/dL 35412 925 26590 6 138.00 mg/dL 09054 926 17799 1 199.00 NI 03004 927 97227 7 98.40 Tympanic 41855 927 14070 0 78.00 mm[Hg] - Sitting 124.00 mm[Hg] - Sitting 98.30 Forehead Scan 95.00 % 83.00/ min 16.00/min 20284 927 44438 7 98.10 Tympanic 31326 928 45636 9 60.00 mm[Hg] - Sitting 99.00 mm[Hg] - Sitting 98.20 Tympanic 91.00 % 64.00/ min 16.00/min 29993 928 07269 0 98.40 Tympanic
--- OUTSIDE RECORDS SUMMARY | 2023-12-13 23:54 | External Medical Summary | Continuity Of Care Document ---
Author Name Unknown Address [address] [place] [address] Organization [facility] [place] () Care Team Providers Care [address] Service Name Role Phone DO Parson Amy Primary Care Provider [phone] Allergies Allergy Reaction Start Date End Date [...] 3 0.1 mL 11/13 Inactiv e 2023 99758 77548 0 1 time Intrad ermal False Tubersol 5 tub. unit/0.1 mL intradermal injection solution [Tuberculin PPD] 0.1mL Intradermal 1 time For PPD 2nd Step Give 2nd Step PPD Day 1 and Read results Day 3 (schedule 7 days after 1st READ) 0.1mL 11/13 Inactiv e 2023 34858 69329 0 1 time Intrad ermal False DISCONTINUE as of 11/14/2023: Tubersol 5 tub. unit/0.1 mL intradermal injection solution [Tuberculin PPD] 11/13 Inactiv e 2023 06994 80787 0 Tubersol 5 tub. unit/0.1 mL intradermal injection solution 0.1 mL Intradermal 1 time For PPD Step 1 GIVE on Day 1 and read results Day 3 0.1 mL 11/16 Inactiv e 2023 59164 32595 1 1 time Intrad ermal False DISCONTINUE as of 11/14/2023: Tubersol 5 tub. unit/0.1 mL intradermal injection solution [Tuberculin PPD] 11/13 Inactiv e 2023 71544 37095 0 Tubersol 5 tub. unit/0.1 mL intradermal injection solution 0.1mL Intradermal 1 time For PPD 2nd Step Give 2nd Step PPD Day 1 and Read results Day 3 (schedule 7 days after 1st READ) 0.1mL 11/25 Active 2023 91592 39455 1 1 time Intrad ermal False Tylenol 325 mg tablet 2 tabs By Mouth Every 4 hours as needed For Pain DO NOT EXCEED 3000 MG APAP/24 Hours 2 tabs 202300 /0000 Active 2023 38166 98272 0 Every 4 hours as needed By Mouth False Tylenol 325 mg tablet 2 tabs By Mouth Every 4 hours as needed For Fever >100 DO NOT EXCEED 3000 MG APAP/24 Hours 2 tabs 202300 /0000 Active 2023 01782 85405 0 Every 4 hours as needed By Mouth False Dulcolax (bisacodyl) 10 mg rectal suppository One Suppository per rectum PRN if Milk of Magnisia ineffective. Give on day 5 of no BM 1 sup 2023 Active 2023 65663 26284 1 Daily as needed Rectal False Fleet Enema 19 gram-7 gram/118 mL Administer per rectum PRN one time if dulcolax suppository not effective. Give on day 6 of no BM 1 202300 0000 Active 2023 71013 71521 6 Daily as needed Rectal False Dextrose 50 % in water (D50W) intravenous solution [generic] Dextrose 50% reyes 20-50 ml (slow push) Intravenous if Glucagon not effective after 15 minutes. CALL 911 for ED Evaluation. 50% reyes 202300 /0000 Active 2023 38691 35613 9 Intrav enous False Glucagon (HCl) Emergency Kit 1 mg solution for injection Administer Glucagon 1 mg Intramuscular if 15 minutes after GLucose Gel is administered Glucose remains less than 70 1 mg 2023 Active 2023 73957 46703 2 Intram uscula r False Glucose Gel 40 % oral gel [Dextrose] PRN If resident is unable to swallow (with or without symptoms) and Glucose results less than 70 give GLucose 40% Gel 1 tube orally - Recheck Glucose 15 minutes after administratio n. 1 tube 2023 Active 2023 86645 68534 8 By Mouth False Lorazepam 0.5 mg tablet [generic] 0.5 mg By Mouth Every 8 hours as needed For Anxiety 0.5 mg 11/18 Inactiv e 2023 91617 86042 0 Every 8 hours as needed By Mouth False Potassium chloride ER 20 mEq tablet,exte nded release [generic] 40 meq By Mouth Once daily For Hypokalemia 40 meq 11/13 Inactiv e 2023 96343 21745 1 Once daily By Mouth False Colesevelam 625 mg tablet [generic] 1250 mg By Mouth Twice daily For TYPE 2 DIABETES MELLITUS WITHOUT COMPLICATIONS 1250 mg 11/19 Inactiv e 2023 52257 11923 1 Twice daily By Mouth E11.9 False Pioglitazon e 15 mg tablet [generic] 15 mg By Mouth Once daily For TYPE 2 DIABETES MELLITUS WITHOUT COMPLICATIONS 15 mg 11/14 Inactiv e 2023 50187 82880 1 Once daily By Mouth E11.9 False Cholecalcif hardeep (vitamin D3) 50 mcg (2,000 unit) tablet [generic] 50 mcg By Mouth Once daily For Supplement 50 mcg 2023 Active 2023 44438 76346 1 Once daily By Mouth False Colchicine 0.6 mg tablet [generic] 0.6 mg By Mouth Twice daily As Needed For Gout 0.6 mg 2023 Active 2023 64079 35377 4 Twice daily By Mouth False Levothyroxi ne 200 mcg tablet [generic] 200 mcg By Mouth Once daily For Hypothyroidis m 200 mcg 202300 0000 Active 2023 08540 11882 0 Once daily By Mouth False Ondansetron 4 mg disintegrat ing tablet [generic] 4 mg By Mouth Every 6 hours as needed For Nausea 4 mg 11/12 Inactiv e 2023 92596 58514 4 Every 6 hours as needed By Mouth False Docusate sodium 100 mg capsule [generic] 100 mg By Mouth Twice daily For Constipation 100 mg 202300 0000 Active 2023 28011 89274 1 Twice daily By Mouth False Oxycodone 5 mg tablet [generic] 5 mg By Mouth Every 6 hours as needed For Pain 5 mg 11/12 Inactiv e 2023 66319 33931 1 Every 6 hours as needed By Mouth False Oxycodone 5 mg tablet [generic] 5 mg By Mouth Every 6 hours as needed For Pain 5 mg 11/18 Inactiv e 2023 18835 03864 1 Every 6 hours as needed By Mouth False Milk of Magnesia 400 mg/5 mL oral suspension 30 ml By Mouth one time per day as needed if no BM x 3 days For Constipation 30 ml 202300 Active 2023 44902 72082 2 By Mouth False Ondansetron 4 mg disintegrat ing tablet [generic] 11/12 Inactiv e 2023 39060 49352 4 Ondansetron 4 mg disintegrat ing tablet [generic] 4 mg By Mouth Every 6 hours as needed For Nausea 4 mg 11/14 Inactiv e 2023 05751 38597 4 Every 6 hours as needed By Mouth False Potassium chloride ER 10 mEq capsule,ext ended release [generic] 40 mEq By Mouth Once daily For hypokalemia 40 mEq 11/17 Inactiv e 2023 48053 39476 1 Once daily By Mouth False Potassium chloride ER 10 mEq capsule,ext ended release [generic] 4 capsules By Mouth At bedtime For hypokalemia 4 capsule s 11/16 Inactiv e 2023 18135 93052 1 At bedtime By Mouth False Flomax 0.4 mg capsule 0.4 mg By Mouth At bedtime For Urinary retention 0.4 mg 11/18 Inactiv e 2023 75348 86327 1 At bedtime By Mouth False STOOL CULTURE Once daily Obtain stool culture, add C. Diff to routine stool culture For Rule out C. Diff 1x 2023 Active 2023 Once daily Other False Butrans 5 mcg/hour transdermal patch 1 patch Transdermal Every 7 Days For Pain 1 patch 11/20 Inactiv e 2023 82786 71514 4 Every week Transd ermal False Pantoprazol e 40 mg tablet,nu yed release [generic] 40 mg By Mouth Twice daily For gerd 40 mg 2023 Active 2023 69310 88057 0 Twice daily By Mouth False Scopolamine 1 mg over 3 days transdermal patch [generic] 1 Transdermal Every 72 hours For nausea 1 11/20 Inactiv e 2023 53935 76766 4 Every 72 hours Transd ermal False Ondansetron 4 mg disintegrat ing tablet [generic] 11/14 Inactiv e 2023 79006 65237 4 Ondansetron 4 mg disintegrat ing tablet [generic] 4 mg By Mouth Every 8 hours For Nausea 4 mg 2023 Active 2023 56754 31625 4 Every 8 hours By Mouth False Miralax 17 gram oral powder packet 8.5 g (1/2 capful) By Mouth Once daily For constipation 8.5 g 11/18 Inactiv e 2023 08766 90782 6 Once daily By Mouth False Pioglitazon e 15 mg tablet [generic] 11/14 Inactiv e 2023 87425 51796 1 E11.9 Pioglitazon e 15 mg tablet [generic] 7.5mg ( half a tab) By Mouth Once daily For TYPE 2 DIABETES MELLITUS WITHOUT COMPLICATIONS 7.5mg 2023 Active 2023 28459 59624 1 Once daily By Mouth E11.9 False Mylanta Coat-Cool 1,200 mg-270 mg-80 mg/10 mL oral suspension 10 ml By Mouth Every 8 hours As Needed For heartburn, indigestion, gas 10 ml 2023 Active 2023 01624 92505 1 Every 8 hours By Mouth False Prochlorper azine maleate 5 mg tablet [generic] 5 mg By Mouth Every 8 hours as needed For Nausea 5 mg 2023 Active 2023 94543 06902 1 Every 8 hours as needed By Mouth False Potassium chloride ER 10 mEq capsule,ext ended release [generic] 10 meq By Mouth 4 times a day For Hypokalemia 10 meq 11/20 Inactiv e 2023 51425 95501 1 4 times a day By Mouth False Lorazepam 0.5 mg tablet [generic] 11/18 Inactiv e 2023 69752 01156 0 Lorazepam 0.5 mg tablet [generic] 0.5 mg By Mouth Every 8 hours as needed For Anxiety 0.5 mg 12/18 Active 2023 90202 25196 0 Every 8 hours as needed By Mouth False Flomax 0.4 mg capsule 11/18 Inactiv e 2023 13696 05419 1 Flomax 0.4 mg capsule 0.4 mg By Mouth Once daily For Urinary retention 0.4 mg 11/19 Inactiv e 2023 87263 34396 1 Once daily By Mouth False Oxycodone 5 mg tablet [generic] 11/18 Inactiv e 2023 69452 60847 1 Oxycodone 5 mg tablet [generic] 5 mg By Mouth Every 6 hours as needed For Back Pain 5 mg 2023 Active 2023 93824 10922 1 Every 6 hours as needed By Mouth False Cipro 250 mg tablet 250 mg By Mouth Twice daily For UTI 250 mg 11/19 Inactiv e 2023 56957 75760 1 Twice daily By Mouth False Senna 8.6 mg tablet 17.2 mg By Mouth Twice daily For Constipation 17.2 mg 2023 Active 2023 76318 16331 1 Twice daily By Mouth False Zyprexa 2.5 mg tablet 2.5 mg By Mouth At bedtime For persistent nausea 2.5 mg 2023 Active 2023 78601 49501 0 At bedtime By Mouth False MAGNESSIUM GLUCONATE 500mg By Mouth Every morning For Supplement 500mg 2023 Active 2023 Every morning By Mouth False Cipro 250 mg tablet 11/19 Inactiv e 2023 37697 77126 1 Cipro 250 mg tablet 250 mg By Mouth Twice daily For UTI 250 mg 11/26 Active 2023 46134 64488 1 Twice daily By Mouth False Flomax 0.4 mg capsule 11/19 Inactiv e 2023 21434 93582 1 Flomax 0.4 mg capsule 0.4 mg By Mouth Once daily For Urinary retention 0.4 mg 11/20 Inactiv e 2023 12727 25067 1 Once daily By Mouth False Motrin IB 200 mg tablet 600 mg By Mouth Every 12 hours As Needed For Pain 600 mg 11/20 Inactiv e 2023 34615 52284 2 Every 12 hours By Mouth False Motrin IB 200 mg tablet 600 mg By Mouth Every 12 hours As Needed For Pain 600 mg 11/20 Inactiv e 2023 26053 15035 2 Every 12 hours By Mouth False Motrin IB 200 mg tablet 600 mg By Mouth Every 12 hours As Needed For Pain 600 mg 11/27 Active 2023 78582 87018 2 Every 12 hours By Mouth False Flomax 0.4 mg capsule 0.4 mg By Mouth Once daily For Urinary retention 0.4 mg 11/21 Inactiv e 2023 06803 42825 1 Once daily By Mouth False Scopolamine 1 mg over 3 days transdermal patch [generic] 1 Transdermal Every 72 hours For nausea 1 11/22 Inactiv e 2023 88793 80453 4 Every 72 hours Transd ermal False Butrans 7.5 mcg/hour transdermal patch 1 patch Transdermal Every 7 Days For Pain 1 patch 202300 0000 Active 2023 24053 40275 4 Every week Transd ermal False Tizanidine 2 mg tablet [generic] 2mg By Mouth At bedtime For Muscle spasms 2mg 202300 /0000 Active 2023 20320 20129 0 At bedtime By Mouth False Prednisone 20 mg tablet [generic] 60 mg By Mouth 1 time For Sciatica Pain 60 mg 11/22 Inactiv e 2023 11878 06290 1 1 time By Mouth False Prednisone 20 mg tablet [generic] 40mg By Mouth 1 time For Sciatica Pain 40mg 11/23 Inactiv e 2023 72380 51005 1 1 time By Mouth False Prednisone 20 mg tablet [generic] 20mg By Mouth 1 time For Sciatica 20mg 11/24 Inactiv e 2023 44427 49027 1 1 time By Mouth False ACCU [...] order For Steroid Therapy 11/28 Active 2023 64027 46215 9 Twice daily Subcut aneous False Flomax 0.4 mg capsule 1 capsule By Mouth At bedtime For urinary retnetion 1 capsule 12/24 Active 2023 34818 35413 1 At bedtime By Mouth False Problems [...] weight Temperature SpO2 Blood Sugar Pulse Respirations 32261 5 75.00 mm[Hg] - Sitting 140.00 mm[Hg] - Sitting 65 NI 98.00 Tympanic 95.00 % 102.00 /min 18.00/min 31575 918 73004 9 63369 918 05736 2 75.00 mm[Hg] - Sitting 140.00 mm[Hg] - Sitting 98.00 Tympanic 102.00 /min 18.00/min 37232 918 58354 3 62406 918 57245 1 72.00 mm[Hg] - Sitting 138.00 mm[Hg] - Sitting 98.40 Tympanic 918 57735 4 88.00/ min 18.00/min 919 19575 4 71.00 mm[Hg] - Sitting 115.00 mm[Hg] - Sitting 98.30 Tympanic 97.00 % 86.00/ min 16.00/min 15185 919 41008 0 71.00 mm[Hg] - Sitting 115.00 mm[Hg] - Sitting 98.30 Tympanic 86.00/ min 16.00/min 20761 919 77782 7 71.00 mm[Hg] - Sitting 115.00 mm[Hg] - Sitting 98.30 Tympanic 86.00/ min 16.00/min 60856 920 13493 6 72.00 mm[Hg] - Sitting 112.00 mm[Hg] - Sitting 98.10 Tympanic 82.00/ min 18.00/min 14662 920 41990 0 75.00 mm[Hg] - Sitting 130.00 mm[Hg] - Sitting 98.40 Forehead Scan 93.00 % 88.00/ min 18.00/min 87091 920 29771 2 75.00 mm[Hg] - Lying Down 130.00 mm[Hg] - Lying Down 98.40 Tympanic 88.00/ min 18.00/min 31322 920 10429 5 75.00 mm[Hg] - Lying Down 130.00 mm[Hg] - Lying Down 98.40 Tympanic 88.00/ min 18.00/min 19057 920 23783 6 199[place]00 [place] [address] 920 60012 3 75.00 mm[Hg] - Sitting 130.00 mm[Hg] - Sitting 98.40 Tympanic 88.00/ min 18.00/min 86478 921 22342 1 71.00 mm[Hg] - Lying Down 119.00 mm[Hg] - Lying Down 98.40 Forehead Scan 96.00 % 83.00/ min 16.00/min 39824 922 05787 6 71.00 mm[Hg] - Lying Down 128.00 mm[Hg] - Lying Down 98.30 Forehead Scan 94.00 % 84.00/ min 18.00/min 65410 923 61597 4 63.00 mm[Hg] - Sitting 105.00 mm[Hg] - Sitting 98.20 Tympanic 93.00 % 93.00/ min 18.00/min 84976 924 90770 8 66.00 mm[Hg] - Sitting 104.00 mm[Hg] - Sitting 98.20 Tympanic 98.00 % 84.00/ min 16.00/min 68396 925 83710 2 131.00 mg/dL 23940 925 08176 6 138.00 mg/dL 77804 926 20416 1 199.00 [place] [address] 927 96116 7 98.40 Tympanic 75271 927 66799 0 78.00 mm[Hg] - Sitting 124.00 mm[Hg] - Sitting 98.30 Forehead Scan 95.00 % 83.00/ min 16.00/min 92606 927 56705 7 98.10 Tympanic 26617 928 16063 9 60.00 mm[Hg] - Sitting 99.00 mm[Hg] - Sitting 98.20 Tympanic 91.00 % 64.00/ min 16.00/min 06101 928 28853 0 98.40 Tympanic 77280 928 96245 0 235.00 mg/dL 25359 928 73355 2 98.30 Tympanic 28655 929 92059 0 159.00 mg/dL 08216 929 41961 1 98.10 Tympanic 43202 929 28847 5 97.90 Tympanic 99223 929 27044 1 72.00 mm[Hg] - Sitting 101.00 mm[Hg] - Sitting 97.90 Tympanic 92.00 % 65.00/ min 16.00/min
--- OUTSIDE RECORDS SUMMARY | 2023-12-13 23:54 | External Medical Summary | Continuity Of Care Document ---
Author Name Unknown Address [address] [place] [address] Organization [facility] () Care Team Providers Care Master Data Analyst Name Role Phone DO Parson Amy Primary Care Provider [phone] Allergies Allergy Reaction Start Date End Date [...] 3 0.1 mL 11/13 Inactiv e 2023 04159 57713 0 1 time Intrad ermal False Tubersol 5 tub. unit/0.1 mL intradermal injection solution [Tuberculin PPD] 0.1mL Intradermal 1 time For PPD 2nd Step Give 2nd Step PPD Day 1 and Read results Day 3 (schedule 7 days after 1st READ) 0.1mL 11/13 Inactiv e 2023 14349 83591 0 1 time Intrad ermal False DISCONTINUE as of 11/14/2023: Tubersol 5 tub. unit/0.1 mL intradermal injection solution [Tuberculin PPD] 11/13 Inactiv e 2023 03773 83241 0 Tubersol 5 tub. unit/0.1 mL intradermal injection solution 0.1 mL Intradermal 1 time For PPD Step 1 GIVE on Day 1 and read results Day 3 0.1 mL 11/16 Inactiv e 2023 66550 71822 1 1 time Intrad ermal False DISCONTINUE as of 11/14/2023: Tubersol 5 tub. unit/0.1 mL intradermal injection solution [Tuberculin PPD] 11/13 Inactiv e 2023 04582 48733 0 Tubersol 5 tub. unit/0.1 mL intradermal injection solution 0.1mL Intradermal 1 time For PPD 2nd Step Give 2nd Step PPD Day 1 and Read results Day 3 (schedule 7 days after 1st READ) 0.1mL 11/25 Active 2023 76792 25385 1 1 time Intrad ermal False Tylenol 325 mg tablet 2 tabs By Mouth Every 4 hours as needed For Pain DO NOT EXCEED 3000 MG APAP/24 Hours 2 tabs 202300 /0000 Active 2023 13264 27235 0 Every 4 hours as needed By Mouth False Tylenol 325 mg tablet 2 tabs By Mouth Every 4 hours as needed For Fever >100 DO NOT EXCEED 3000 MG APAP/24 Hours 2 tabs 202300 /0000 Active 2023 71465 99436 0 Every 4 hours as needed By Mouth False Dulcolax (bisacodyl) 10 mg rectal suppository One Suppository per rectum PRN if Milk of Magnisia ineffective. Give on day 5 of no BM 1 sup 2023 Active 2023 47201 32009 1 Daily as needed Rectal False Fleet Enema 19 gram-7 gram/118 mL Administer per rectum PRN one time if dulcolax suppository not effective. Give on day 6 of no BM 1 202300 0000 Active 2023 85109 56067 6 Daily as needed Rectal False Dextrose 50 % in water (D50W) intravenous solution [generic] Dextrose 50% reyes 20-50 ml (slow push) Intravenous if Glucagon not effective after 15 minutes. CALL 911 for ED Evaluation. 50% reyes 202300 /0000 Active 2023 35267 87812 9 Intrav enous False Glucagon (HCl) Emergency Kit 1 mg solution for injection Administer Glucagon 1 mg Intramuscular if 15 minutes after GLucose Gel is administered Glucose remains less than 70 1 mg 2023 Active 2023 42004 65228 2 Intram uscula r False Glucose Gel 40 % oral gel [Dextrose] PRN If resident is unable to swallow (with or without symptoms) and Glucose results less than 70 give GLucose 40% Gel 1 tube orally - Recheck Glucose 15 minutes after administratio n. 1 tube 2023 Active 2023 88460 81670 8 By Mouth False Lorazepam 0.5 mg tablet [generic] 0.5 mg By Mouth Every 8 hours as needed For Anxiety 0.5 mg 11/18 Inactiv e 2023 42632 01983 0 Every 8 hours as needed By Mouth False Potassium chloride ER 20 mEq tablet,exte nded release [generic] 40 meq By Mouth Once daily For Hypokalemia 40 meq 11/13 Inactiv e 2023 85423 34801 1 Once daily By Mouth False Colesevelam 625 mg tablet [generic] 1250 mg By Mouth Twice daily For TYPE 2 DIABETES MELLITUS WITHOUT COMPLICATIONS 1250 mg 11/19 Inactiv e 2023 29419 51167 1 Twice daily By Mouth E11.9 False Pioglitazon e 15 mg tablet [generic] 15 mg By Mouth Once daily For TYPE 2 DIABETES MELLITUS WITHOUT COMPLICATIONS 15 mg 11/14 Inactiv e 2023 36928 19307 1 Once daily By Mouth E11.9 False Cholecalcif hardeep (vitamin D3) 50 mcg (2,000 unit) tablet [generic] 50 mcg By Mouth Once daily For Supplement 50 mcg 2023 Active 2023 72179 78824 1 Once daily By Mouth False Colchicine 0.6 mg tablet [generic] 0.6 mg By Mouth Twice daily As Needed For Gout 0.6 mg 2023 Active 2023 20560 03887 4 Twice daily By Mouth False Levothyroxi ne 200 mcg tablet [generic] 200 mcg By Mouth Once daily For Hypothyroidis m 200 mcg 202300 0000 Active 2023 90659 23206 0 Once daily By Mouth False Ondansetron 4 mg disintegrat ing tablet [generic] 4 mg By Mouth Every 6 hours as needed For Nausea 4 mg 11/12 Inactiv e 2023 99536 52374 4 Every 6 hours as needed By Mouth False Docusate sodium 100 mg capsule [generic] 100 mg By Mouth Twice daily For Constipation 100 mg 202300 0000 Active 2023 86382 81911 1 Twice daily By Mouth False Oxycodone 5 mg tablet [generic] 5 mg By Mouth Every 6 hours as needed For Pain 5 mg 11/12 Inactiv e 2023 60297 31053 1 Every 6 hours as needed By Mouth False Oxycodone 5 mg tablet [generic] 5 mg By Mouth Every 6 hours as needed For Pain 5 mg 11/18 Inactiv e 2023 44358 02113 1 Every 6 hours as needed By Mouth False Milk of Magnesia 400 mg/5 mL oral suspension 30 ml By Mouth one time per day as needed if no BM x 3 days For Constipation 30 ml 202300 Active 2023 18010 17233 2 By Mouth False Ondansetron 4 mg disintegrat ing tablet [generic] 11/12 Inactiv e 2023 83414 40844 4 Ondansetron 4 mg disintegrat ing tablet [generic] 4 mg By Mouth Every 6 hours as needed For Nausea 4 mg 11/14 Inactiv e 2023 69565 72066 4 Every 6 hours as needed By Mouth False Potassium chloride ER 10 mEq capsule,ext ended release [generic] 40 mEq By Mouth Once daily For hypokalemia 40 mEq 11/17 Inactiv e 2023 55475 53217 1 Once daily By Mouth False Potassium chloride ER 10 mEq capsule,ext ended release [generic] 4 capsules By Mouth At bedtime For hypokalemia 4 capsule s 11/16 Inactiv e 2023 42759 31565 1 At bedtime By Mouth False Flomax 0.4 mg capsule 0.4 mg By Mouth At bedtime For Urinary retention 0.4 mg 11/18 Inactiv e 2023 44176 96433 1 At bedtime By Mouth False STOOL CULTURE Once daily Obtain stool culture, add C. Diff to routine stool culture For Rule out C. Diff 1x 2023 Active 2023 Once daily Other False Butrans 5 mcg/hour transdermal patch 1 patch Transdermal Every 7 Days For Pain 1 patch 11/20 Inactiv e 2023 97961 74562 4 Every week Transd ermal False Pantoprazol e 40 mg tablet,nu yed release [generic] 40 mg By Mouth Twice daily For gerd 40 mg 2023 Active 2023 29538 20390 0 Twice daily By Mouth False Scopolamine 1 mg over 3 days transdermal patch [generic] 1 Transdermal Every 72 hours For nausea 1 11/20 Inactiv e 2023 80075 80153 4 Every 72 hours Transd ermal False Ondansetron 4 mg disintegrat ing tablet [generic] 11/14 Inactiv e 2023 34474 29625 4 Ondansetron 4 mg disintegrat ing tablet [generic] 4 mg By Mouth Every 8 hours For Nausea 4 mg 2023 Active 2023 28080 18914 4 Every 8 hours By Mouth False Miralax 17 gram oral powder packet 8.5 g (1/2 capful) By Mouth Once daily For constipation 8.5 g 11/18 Inactiv e 2023 82283 83206 6 Once daily By Mouth False Pioglitazon e 15 mg tablet [generic] 11/14 Inactiv e 2023 09708 37404 1 E11.9 Pioglitazon e 15 mg tablet [generic] 7.5mg ( half a tab) By Mouth Once daily For TYPE 2 DIABETES MELLITUS WITHOUT COMPLICATIONS 7.5mg 2023 Active 2023 33545 85246 1 Once daily By Mouth E11.9 False Mylanta Coat-Cool 1,200 mg-270 mg-80 mg/10 mL oral suspension 10 ml By Mouth Every 8 hours As Needed For heartburn, indigestion, gas 10 ml 2023 Active 2023 52101 39040 1 Every 8 hours By Mouth False Prochlorper azine maleate 5 mg tablet [generic] 5 mg By Mouth Every 8 hours as needed For Nausea 5 mg 2023 Active 2023 42729 99368 1 Every 8 hours as needed By Mouth False Potassium chloride ER 10 mEq capsule,ext ended release [generic] 10 meq By Mouth 4 times a day For Hypokalemia 10 meq 11/20 Inactiv e 2023 47134 23333 1 4 times a day By Mouth False Lorazepam 0.5 mg tablet [generic] 11/18 Inactiv e 2023 49490 68293 0 Lorazepam 0.5 mg tablet [generic] 0.5 mg By Mouth Every 8 hours as needed For Anxiety 0.5 mg 12/18 Active 2023 03065 83027 0 Every 8 hours as needed By Mouth False Flomax 0.4 mg capsule 11/18 Inactiv e 2023 49471 51373 1 Flomax 0.4 mg capsule 0.4 mg By Mouth Once daily For Urinary retention 0.4 mg 11/19 Inactiv e 2023 24981 13544 1 Once daily By Mouth False Oxycodone 5 mg tablet [generic] 11/18 Inactiv e 2023 09404 94382 1 Oxycodone 5 mg tablet [generic] 5 mg By Mouth Every 6 hours as needed For Back Pain 5 mg 2023 Active 2023 96318 52988 1 Every 6 hours as needed By Mouth False Cipro 250 mg tablet 250 mg By Mouth Twice daily For UTI 250 mg 11/19 Inactiv e 2023 10635 29074 1 Twice daily By Mouth False Senna 8.6 mg tablet 17.2 mg By Mouth Twice daily For Constipation 17.2 mg 2023 Active 2023 83793 27051 1 Twice daily By Mouth False Zyprexa 2.5 mg tablet 2.5 mg By Mouth At bedtime For persistent nausea 2.5 mg 2023 Active 2023 11274 29917 0 At bedtime By Mouth False MAGNESSIUM GLUCONATE 500mg By Mouth Every morning For Supplement 500mg 2023 Active 2023 Every morning By Mouth False Cipro 250 mg tablet 11/19 Inactiv e 2023 47940 44712 1 Cipro 250 mg tablet 250 mg By Mouth Twice daily For UTI 250 mg 11/26 Active 2023 38549 76093 1 Twice daily By Mouth False Flomax 0.4 mg capsule 11/19 Inactiv e 2023 15996 93179 1 Flomax 0.4 mg capsule 0.4 mg By Mouth Once daily For Urinary retention 0.4 mg 11/20 Inactiv e 2023 12481 34777 1 Once daily By Mouth False Motrin IB 200 mg tablet 600 mg By Mouth Every 12 hours As Needed For Pain 600 mg 11/20 Inactiv e 2023 17765 39981 2 Every 12 hours By Mouth False Motrin IB 200 mg tablet 600 mg By Mouth Every 12 hours As Needed For Pain 600 mg 11/20 Inactiv e 2023 81351 67844 2 Every 12 hours By Mouth False Motrin IB 200 mg tablet 600 mg By Mouth Every 12 hours As Needed For Pain 600 mg 11/27 Active 2023 57195 71868 2 Every 12 hours By Mouth False Flomax 0.4 mg capsule 0.4 mg By Mouth Once daily For Urinary retention 0.4 mg 11/21 Inactiv e 2023 59250 81175 1 Once daily By Mouth False Scopolamine 1 mg over 3 days transdermal patch [generic] 1 Transdermal Every 72 hours For nausea 1 11/22 Inactiv e 2023 77511 03724 4 Every 72 hours Transd ermal False Butrans 7.5 mcg/hour transdermal patch 1 patch Transdermal Every 7 Days For Pain 1 patch 202300 0000 Active 2023 05591 53619 4 Every week Transd ermal False Tizanidine 2 mg tablet [generic] 2mg By Mouth At bedtime For Muscle spasms 2mg 202300 /0000 Active 2023 41742 76230 0 At bedtime By Mouth False Prednisone 20 mg tablet [generic] 60 mg By Mouth 1 time For Sciatica Pain 60 mg 11/22 Inactiv e 2023 25906 47326 1 1 time By Mouth False Prednisone 20 mg tablet [generic] 40mg By Mouth 1 time For Sciatica Pain 40mg 11/23 Inactiv e 2023 22726 39070 1 1 time By Mouth False Prednisone 20 mg tablet [generic] 20mg By Mouth 1 time For Sciatica 20mg 11/24 Inactiv e 2023 18098 39441 1 1 time By Mouth False ACCU [...] order For Steroid Therapy 11/28 Active 2023 19166 43436 9 Twice daily Subcut aneous False Flomax 0.4 mg capsule 1 capsule By Mouth At bedtime For urinary retnetion 1 capsule 12/24 Active 2023 90888 04914 1 At bedtime By Mouth False Problems [...] weight Temperature SpO2 Blood Sugar Pulse Respirations 66221 5 75.00 mm[Hg] - Sitting 140.00 mm[Hg] - Sitting 65 NI 98.00 Tympanic 95.00 % 102.00 /min 18.00/min 47388 918 80190 9 93542 918 14676 2 75.00 mm[Hg] - Sitting 140.00 mm[Hg] - Sitting 98.00 Tympanic 102.00 /min 18.00/min 79636 918 92381 3 78313 918 96109 1 72.00 mm[Hg] - Sitting 138.00 mm[Hg] - Sitting 98.40 Tympanic 918 97406 4 88.00/ min 18.00/min 919 22942 4 71.00 mm[Hg] - Sitting 115.00 mm[Hg] - Sitting 98.30 Tympanic 97.00 % 86.00/ min 16.00/min 18660 919 26661 0 71.00 mm[Hg] - Sitting 115.00 mm[Hg] - Sitting 98.30 Tympanic 86.00/ min 16.00/min 33818 919 90449 7 71.00 mm[Hg] - Sitting 115.00 mm[Hg] - Sitting 98.30 Tympanic 86.00/ min 16.00/min 54375 920 58361 6 72.00 mm[Hg] - Sitting 112.00 mm[Hg] - Sitting 98.10 Tympanic 82.00/ min 18.00/min 85077 920 66278 0 75.00 mm[Hg] - Sitting 130.00 mm[Hg] - Sitting 98.40 Forehead Scan 93.00 % 88.00/ min 18.00/min 83236 920 72084 2 75.00 mm[Hg] - Lying Down 130.00 mm[Hg] - Lying Down 98.40 Tympanic 88.00/ min 18.00/min 33019 920 70173 5 75.00 mm[Hg] - Lying Down 130.00 mm[Hg] - Lying Down 98.40 Tympanic 88.00/ min 18.00/min 98952 920 51240 6 199.00 [place] [address] 920 39560 3 75.00 mm[Hg] - Sitting 130.00 mm[Hg] - Sitting 98.40 Tympanic 88.00/ min 18.00/min 56476 921 36551 1 71.00 mm[Hg] - Lying Down 119.00 mm[Hg] - Lying Down 98.40 Forehead Scan 96.00 % 83.00/ min 16.00/min 36186 922 23405 6 71.00 mm[Hg] - Lying Down 128.00 mm[Hg] - Lying Down 98.30 Forehead Scan 94.00 % 84.00/ min 18.00/min 47493 923 27220 4 63.00 mm[Hg] - Sitting 105.00 mm[Hg] - Sitting 98.20 Tympanic 93.00 % 93.00/ min 18.00/min 85143 924 16136 8 66.00 mm[Hg] - Sitting 104.00 mm[Hg] - Sitting 98.20 Tympanic 98.00 % 84.00/ min 16.00/min 85131 925 38939 2 131.00 mg/dL 74894 925 71594 6 138.00 mg/dL 09607 926 64721 1 199.00 NI [address]237 927 29576 7 98.40 Tympanic 53178 927 23077 0 78.00 mm[Hg] - Sitting 124.00 mm[Hg] - Sitting 98.30 Forehead Scan 95.00 % 83.00/ min 16.00/min 36941 927 52639 7 98.10 Tympanic 81038 928 84042 9 60.00 mm[Hg] - Sitting 99.00 mm[Hg] - Sitting 98.20 Tympanic 91.00 % 64.00/ min 16.00/min 15355 928 14879 0 98.40 Tympanic 17671 928 66863 0 235.00 mg/dL 01279 928 04911 2 98.30 Tympanic 08889 929 67869 0 159.00 mg/dL 88326 929 69721 1 98.10 Tympanic 44206 929 62440 5 97.90 Tympanic 55685 929 65894 1 72.00 mm[Hg] - Sitting 101.00 mm[Hg] - Sitting 97.90 Tympanic 92.00 % 65.00/ min 16.00/min
--- OUTSIDE RECORDS SUMMARY | 2023-12-13 23:54 | External Medical Summary | Continuity Of Care Document ---
Author Name Unknown Address [address] [place] [address] Organization [facility] () Care Team Providers Care Shingler Name Role Phone DO Pasron Amy Primary Care Provider [phone] Allergies Allergy Reaction Start Date End Date [...] 3 0.1 mL 11/13 Inactiv e 2023 83494 05884 0 1 time Intrad ermal False Tubersol 5 tub. unit/0.1 mL intradermal injection solution [Tuberculin PPD] 0.1mL Intradermal 1 time For PPD 2nd Step Give 2nd Step PPD Day 1 and Read results Day 3 (schedule 7 days after 1st READ) 0.1mL 11/13 Inactiv e 2023 81403 82339 0 1 time Intrad ermal False DISCONTINUE as of 11/14/2023: Tubersol 5 tub. unit/0.1 mL intradermal injection solution [Tuberculin PPD] 11/13 Inactiv e 2023 34124 93943 0 Tubersol 5 tub. unit/0.1 mL intradermal injection solution 0.1 mL Intradermal 1 time For PPD Step 1 GIVE on Day 1 and read results Day 3 0.1 mL 11/16 Inactiv e 2023 92108 66929 1 1 time Intrad ermal False DISCONTINUE as of 11/14/2023: Tubersol 5 tub. unit/0.1 mL intradermal injection solution [Tuberculin PPD] 11/13 Inactiv e 2023 77756 69125 0 Tubersol 5 tub. unit/0.1 mL intradermal injection solution 0.1mL Intradermal 1 time For PPD 2nd Step Give 2nd Step PPD Day 1 and Read results Day 3 (schedule 7 days after 1st READ) 0.1mL 11/25 Active 2023 13834 01896 1 1 time Intrad ermal False Tylenol 325 mg tablet 2 tabs By Mouth Every 4 hours as needed For Pain DO NOT EXCEED 3000 MG APAP/24 Hours 2 tabs 202300 /0000 Active 2023 98367 33126 0 Every 4 hours as needed By Mouth False Tylenol 325 mg tablet 2 tabs By Mouth Every 4 hours as needed For Fever >100 DO NOT EXCEED 3000 MG APAP/24 Hours 2 tabs 202300 /0000 Active 2023 90194 89299 0 Every 4 hours as needed By Mouth False Dulcolax (bisacodyl) 10 mg rectal suppository One Suppository per rectum PRN if Milk of Magnisia ineffective. Give on day 5 of no BM 1 sup 2023 Active 2023 03191 17806 1 Daily as needed Rectal False Fleet Enema 19 gram-7 gram/118 mL Administer per rectum PRN one time if dulcolax suppository not effective. Give on day 6 of no BM 1 202300 0000 Active 2023 94255 73721 6 Daily as needed Rectal False Dextrose 50 % in water (D50W) intravenous solution [generic] Dextrose 50% reyes 20-50 ml (slow push) Intravenous if Glucagon not effective after 15 minutes. CALL 911 for ED Evaluation. 50% reyes 202300 /0000 Active 2023 33641 05806 9 Intrav enous False Glucagon (HCl) Emergency Kit 1 mg solution for injection Administer Glucagon 1 mg Intramuscular if 15 minutes after GLucose Gel is administered Glucose remains less than 70 1 mg 2023 Active 2023 66309 95264 2 Intram uscula r False Glucose Gel 40 % oral gel [Dextrose] PRN If resident is unable to swallow (with or without symptoms) and Glucose results less than 70 give GLucose 40% Gel 1 tube orally - Recheck Glucose 15 minutes after administratio n. 1 tube 2023 Active 2023 54555 53431 8 By Mouth False Lorazepam 0.5 mg tablet [generic] 0.5 mg By Mouth Every 8 hours as needed For Anxiety 0.5 mg 11/18 Inactiv e 2023 25495 97287 0 Every 8 hours as needed By Mouth False Potassium chloride ER 20 mEq tablet,exte nded release [generic] 40 meq By Mouth Once daily For Hypokalemia 40 meq 11/13 Inactiv e 2023 87094 88285 1 Once daily By Mouth False Colesevelam 625 mg tablet [generic] 1250 mg By Mouth Twice daily For TYPE 2 DIABETES MELLITUS WITHOUT COMPLICATIONS 1250 mg 11/19 Inactiv e 2023 06283 97432 1 Twice daily By Mouth E11.9 False Pioglitazon e 15 mg tablet [generic] 15 mg By Mouth Once daily For TYPE 2 DIABETES MELLITUS WITHOUT COMPLICATIONS 15 mg 11/14 Inactiv e 2023 36434 86197 1 Once daily By Mouth E11.9 False Cholecalcif hardeep (vitamin D3) 50 mcg (2,000 unit) tablet [generic] 50 mcg By Mouth Once daily For Supplement 50 mcg 2023 Active 2023 90791 53172 1 Once daily By Mouth False Colchicine 0.6 mg tablet [generic] 0.6 mg By Mouth Twice daily As Needed For Gout 0.6 mg 2023 Active 2023 74259 20573 4 Twice daily By Mouth False Levothyroxi ne 200 mcg tablet [generic] 200 mcg By Mouth Once daily For Hypothyroidis m 200 mcg 202300 0000 Active 2023 07454 44384 0 Once daily By Mouth False Ondansetron 4 mg disintegrat ing tablet [generic] 4 mg By Mouth Every 6 hours as needed For Nausea 4 mg 11/12 Inactiv e 2023 35584 20979 4 Every 6 hours as needed By Mouth False Docusate sodium 100 mg capsule [generic] 100 mg By Mouth Twice daily For Constipation 100 mg 202300 0000 Active 2023 36914 59736 1 Twice daily By Mouth False Oxycodone 5 mg tablet [generic] 5 mg By Mouth Every 6 hours as needed For Pain 5 mg 11/12 Inactiv e 2023 88412 78956 1 Every 6 hours as needed By Mouth False Oxycodone 5 mg tablet [generic] 5 mg By Mouth Every 6 hours as needed For Pain 5 mg 11/18 Inactiv e 2023 72782 95586 1 Every 6 hours as needed By Mouth False Milk of Magnesia 400 mg/5 mL oral suspension 30 ml By Mouth one time per day as needed if no BM x 3 days For Constipation 30 ml 202300 Active 2023 01736 57462 2 By Mouth False Ondansetron 4 mg disintegrat ing tablet [generic] 11/12 Inactiv e 2023 16127 58730 4 Ondansetron 4 mg disintegrat ing tablet [generic] 4 mg By Mouth Every 6 hours as needed For Nausea 4 mg 11/14 Inactiv e 2023 71440 06220 4 Every 6 hours as needed By Mouth False Potassium chloride ER 10 mEq capsule,ext ended release [generic] 40 mEq By Mouth Once daily For hypokalemia 40 mEq 11/17 Inactiv e 2023 66725 69760 1 Once daily By Mouth False Potassium chloride ER 10 mEq capsule,ext ended release [generic] 4 capsules By Mouth At bedtime For hypokalemia 4 capsule s 11/16 Inactiv e 2023 42618 44668 1 At bedtime By Mouth False Flomax 0.4 mg capsule 0.4 mg By Mouth At bedtime For Urinary retention 0.4 mg 11/18 Inactiv e 2023 00137 23080 1 At bedtime By Mouth False STOOL CULTURE Once daily Obtain stool culture, add C. Diff to routine stool culture For Rule out C. Diff 1x 2023 Active 2023 Once daily Other False Butrans 5 mcg/hour transdermal patch 1 patch Transdermal Every 7 Days For Pain 1 patch 11/20 Inactiv e 2023 23402 31801 4 Every week Transd ermal False Pantoprazol e 40 mg tablet,nu yed release [generic] 40 mg By Mouth Twice daily For gerd 40 mg 2023 Active 2023 45071 61885 0 Twice daily By Mouth False Scopolamine 1 mg over 3 days transdermal patch [generic] 1 Transdermal Every 72 hours For nausea 1 11/20 Inactiv e 2023 97209 38796 4 Every 72 hours Transd ermal False Ondansetron 4 mg disintegrat ing tablet [generic] 11/14 Inactiv e 2023 44976 52737 4 Ondansetron 4 mg disintegrat ing tablet [generic] 4 mg By Mouth Every 8 hours For Nausea 4 mg 2023 Active 2023 80346 61309 4 Every 8 hours By Mouth False Miralax 17 gram oral powder packet 8.5 g (1/2 capful) By Mouth Once daily For constipation 8.5 g 11/18 Inactiv e 2023 81587 08788 6 Once daily By Mouth False Pioglitazon e 15 mg tablet [generic] 11/14 Inactiv e 2023 78979 40956 1 E11.9 Pioglitazon e 15 mg tablet [generic] 7.5mg ( half a tab) By Mouth Once daily For TYPE 2 DIABETES MELLITUS WITHOUT COMPLICATIONS 7.5mg 2023 Active 2023 78065 78473 1 Once daily By Mouth E11.9 False Mylanta Coat-Cool 1,200 mg-270 mg-80 mg/10 mL oral suspension 10 ml By Mouth Every 8 hours As Needed For heartburn, indigestion, gas 10 ml 2023 Active 2023 78886 80244 1 Every 8 hours By Mouth False Prochlorper azine maleate 5 mg tablet [generic] 5 mg By Mouth Every 8 hours as needed For Nausea 5 mg 2023 Active 2023 03149 23444 1 Every 8 hours as needed By Mouth False Potassium chloride ER 10 mEq capsule,ext ended release [generic] 10 meq By Mouth 4 times a day For Hypokalemia 10 meq 11/20 Inactiv e 2023 43118 36517 1 4 times a day By Mouth False Lorazepam 0.5 mg tablet [generic] 11/18 Inactiv e 2023 17363 55364 0 Lorazepam 0.5 mg tablet [generic] 0.5 mg By Mouth Every 8 hours as needed For Anxiety 0.5 mg 12/18 Active 2023 05821 41749 0 Every 8 hours as needed By Mouth False Flomax 0.4 mg capsule 11/18 Inactiv e 2023 14933 60856 1 Flomax 0.4 mg capsule 0.4 mg By Mouth Once daily For Urinary retention 0.4 mg 11/19 Inactiv e 2023 52130 12818 1 Once daily By Mouth False Oxycodone 5 mg tablet [generic] 11/18 Inactiv e 2023 18801 79627 1 Oxycodone 5 mg tablet [generic] 5 mg By Mouth Every 6 hours as needed For Back Pain 5 mg 2023 Active 2023 65730 07931 1 Every 6 hours as needed By Mouth False Cipro 250 mg tablet 250 mg By Mouth Twice daily For UTI 250 mg 11/19 Inactiv e 2023 32767 17820 1 Twice daily By Mouth False Senna 8.6 mg tablet 17.2 mg By Mouth Twice daily For Constipation 17.2 mg 2023 Active 2023 32661 54461 1 Twice daily By Mouth False Zyprexa 2.5 mg tablet 2.5 mg By Mouth At bedtime For persistent nausea 2.5 mg 2023 Active 2023 50335 18691 0 At bedtime By Mouth False MAGNESSIUM GLUCONATE 500mg By Mouth Every morning For Supplement 500mg 2023 Active 2023 Every morning By Mouth False Cipro 250 mg tablet 11/19 Inactiv e 2023 75982 27306 1 Cipro 250 mg tablet 250 mg By Mouth Twice daily For UTI 250 mg 11/26 Active 2023 87860 23541 1 Twice daily By Mouth False Flomax 0.4 mg capsule 11/19 Inactiv e 2023 65449 70970 1 Flomax 0.4 mg capsule 0.4 mg By Mouth Once daily For Urinary retention 0.4 mg 11/20 Inactiv e 2023 68031 59914 1 Once daily By Mouth False Motrin IB 200 mg tablet 600 mg By Mouth Every 12 hours As Needed For Pain 600 mg 11/20 Inactiv e 2023 25781 97031 2 Every 12 hours By Mouth False Motrin IB 200 mg tablet 600 mg By Mouth Every 12 hours As Needed For Pain 600 mg 11/20 Inactiv e 2023 28675 77415 2 Every 12 hours By Mouth False Motrin IB 200 mg tablet 600 mg By Mouth Every 12 hours As Needed For Pain 600 mg 11/27 Active 2023 45548 59357 2 Every 12 hours By Mouth False Flomax 0.4 mg capsule 0.4 mg By Mouth Once daily For Urinary retention 0.4 mg 11/21 Inactiv e 2023 83254 62234 1 Once daily By Mouth False Scopolamine 1 mg over 3 days transdermal patch [generic] 1 Transdermal Every 72 hours For nausea 1 11/22 Inactiv e 2023 77625 66619 4 Every 72 hours Transd ermal False Butrans 7.5 mcg/hour transdermal patch 1 patch Transdermal Every 7 Days For Pain 1 patch 202300 0000 Active 2023 64149 52174 4 Every week Transd ermal False Tizanidine 2 mg tablet [generic] 2mg By Mouth At bedtime For Muscle spasms 2mg 202300 /0000 Active 2023 15380 57172 0 At bedtime By Mouth False Prednisone 20 mg tablet [generic] 60 mg By Mouth 1 time For Sciatica Pain 60 mg 11/22 Inactiv e 2023 81087 93274 1 1 time By Mouth False Prednisone 20 mg tablet [generic] 40mg By Mouth 1 time For Sciatica Pain 40mg 11/23 Inactiv e 2023 56546 86223 1 1 time By Mouth False Prednisone 20 mg tablet [generic] 20mg By Mouth 1 time For Sciatica 20mg 11/24 Inactiv e 2023 42731 15927 1 1 time By Mouth False ACCU [...] order For Steroid Therapy 11/28 Active 2023 52887 63355 9 Twice daily Subcut aneous False Flomax 0.4 mg capsule 1 capsule By Mouth At bedtime For urinary retnetion 1 capsule 12/24 Active 2023 92429 76539 1 At bedtime By Mouth False Cholecalcif hardeep (vitamin D3) 50 mcg (2,000 unit) tablet [generic] 50 mcg By Mouth Once daily For Supplement 50 mcg 2023 Active 2023 00568 36577 1 Once daily By Mouth False Colchicine 0.6 mg tablet [generic] 0.6 mg By Mouth Twice daily As Needed For Gout 0.6 mg 2023 Active 2023 87791 66304 4 Twice daily By Mouth False Levothyroxi ne 200 mcg tablet [generic] 200 mcg By Mouth Once daily For Hypothyroidis m 200 mcg 2023 Active 2023 97604 37802 0 Once daily By Mouth False Docusate sodium 100 mg capsule [generic] 100 mg By Mouth Twice daily For Constipation 100 mg 2023 Active 2023 89368 56475 1 Twice daily By Mouth False Pantoprazol e 40 mg tablet,nu yed release [generic] 40 mg By Mouth Twice daily For gerd 40 mg 2023 Active 2023 12624 91063 0 Twice daily By Mouth False Ondansetron 4 mg disintegrat ing tablet [generic] 4 mg By Mouth Every 8 hours For Nausea 4 mg 2023 Active 2023 70300 27090 4 Every 8 hours By Mouth False Pioglitazon e 15 mg tablet [generic] 7.5mg ( half a tab) By Mouth Once daily For TYPE 2 DIABETES MELLITUS WITHOUT COMPLICATIONS 7.5mg 2023 Active 2023 76481 41382 1 Once daily By Mouth E11.9 False Mylanta Coat-Cool 1,200 mg-270 mg-80 mg/10 mL oral suspension 10 ml By Mouth Every 8 hours As Needed For heartburn, indigestion, gas 10 ml 2023 Active 20233 78424 1 Every 8 hours By Mouth False Prochlorper azine maleate 5 mg tablet [generic] 5 mg By Mouth Every 8 hours as needed For Nausea 5 mg 2023 Active 2023 29708 24504 1 Every 8 hours as needed By Mouth False Lorazepam 0.5 mg tablet [generic] 0.5 mg By Mouth Every 8 hours as needed For Anxiety 0.5 mg 2023 Active 2023 00361 42140 0 Every 8 hours as needed By Mouth False Oxycodone 5 mg tablet [generic] 5 mg By Mouth Every 6 hours as needed For Back Pain 5 mg 2023 Active 2023 54988 33121 1 Every 6 hours as needed By Mouth False Senna 8.6 mg tablet 17.2 mg By Mouth Twice daily For Constipation 17.2 mg 2023 Active 2023 11757 68217 1 Twice daily By Mouth False Zyprexa 2.5 mg tablet 2.5 mg By Mouth At bedtime For persistent nausea 2.5 mg 2023 Active 2023 98333 27648 0 At bedtime By Mouth False MAGNESSIUM GLUCONATE 500mg By Mouth Every morning For Supplement 500mg 2023 Active 2023 Every morning By Mouth False Cipro 250 mg tablet 250 mg By Mouth Twice daily For UTI 250 mg 2023 Active 2023 16856 11450 1 Twice daily By Mouth False Motrin IB 200 mg tablet 600 mg By Mouth Every 12 hours As Needed For Pain 600 mg 2023 Active 2023 80373 61055 2 Every 12 hours By Mouth False Butrans 7.5 mcg/hour transdermal patch 1 patch Transdermal Every 7 Days For Pain 1 patch 2023 Active 2023 97813 42356 4 Every week Transd ermal False Tizanidine 2 mg tablet [generic] 2mg By Mouth At bedtime For Muscle spasms 2mg 2023 Active 2023 17466 82051 0 At bedtime By Mouth False Humalog [...] order For Steroid Therapy 2023 Active 2023 60220 37256 9 Twice daily Subcut aneous False Cholecalcif hardeep (vitamin D3) 50 mcg (2,000 unit) tablet [generic] 50 mcg By Mouth Once daily For Supplement 50 mcg 2023 Active 2023 55743 23808 1 Once daily By Mouth False Colchicine 0.6 mg tablet [generic] 0.6 mg By Mouth Twice daily As Needed For Gout 0.6 mg 2023 Active 2023 69067 61116 4 Twice daily By Mouth False Levothyroxi ne 200 mcg tablet [generic] 200 mcg By Mouth Once daily For Hypothyroidis m 200 mcg 2023 Active 2023 97798 18246 0 Once daily By Mouth False Docusate sodium 100 mg capsule [generic] 100 mg By Mouth Twice daily For Constipation 100 mg 2023 Active 2023 35945 49158 1 Twice daily By Mouth False Pantoprazol e 40 mg tablet,nu yed release [generic] 40 mg By Mouth Twice daily For gerd 40 mg 2023 Active 2023 80277 95679 0 Twice daily By Mouth False Ondansetron 4 mg disintegrat ing tablet [generic] 4 mg By Mouth Every 8 hours For Nausea 4 mg 2023 Active 2023 50360 27417 4 Every 8 hours By Mouth False Pioglitazon e 15 mg tablet [generic] 7.5mg ( half a tab) By Mouth Once daily For TYPE 2 DIABETES MELLITUS WITHOUT COMPLICATIONS 7.5mg 2023 Active 2023 92129 20418 1 Once daily By Mouth E11.9 False Mylanta Coat-Cool 1,200 mg-270 mg-80 mg/10 mL oral suspension 10 ml By Mouth Every 8 hours As Needed For heartburn, indigestion, gas 10 ml 2023 Active 2023 05622 17253 1 Every 8 hours By Mouth False Prochlorper azine maleate 5 mg tablet [generic] 5 mg By Mouth Every 8 hours as needed For Nausea 5 mg 2023 Active 2023 23363 09443 1 Every 8 hours as needed By Mouth False Lorazepam 0.5 mg tablet [generic] 0.5 mg By Mouth Every 8 hours as needed For Anxiety 0.5 mg 2023 Active 2023 68303 73190 0 Every 8 hours as needed By Mouth False Oxycodone 5 mg tablet [generic] 5 mg By Mouth Every 6 hours as needed For Back Pain 5 mg 2023 Active 2023 23841 32767 1 Every 6 hours as needed By Mouth False Senna 8.6 mg tablet 17.2 mg By Mouth Twice daily For Constipation 17.2 mg 2023 Active 2023 42719 42822 1 Twice daily By Mouth False Zyprexa 2.5 mg tablet 2.5 mg By Mouth At bedtime For persistent nausea 2.5 mg 2023 Active 2023 44772 77639 0 At bedtime By Mouth False MAGNESSIUM GLUCONATE 500mg By Mouth Every morning For Supplement 500mg 2023 Active 2023 Every morning By Mouth False Cipro 250 mg tablet 250 mg By Mouth Twice daily For UTI 250 mg 2023 Active 2023 51734 94005 1 Twice daily By Mouth False Motrin IB 200 mg tablet 600 mg By Mouth Every 12 hours As Needed For Pain 600 mg 2023 Active 2023 14964 07553 2 Every 12 hours By Mouth False Butrans 7.5 mcg/hour transdermal patch 1 patch Transdermal Every 7 Days For Pain 1 patch 2023 Active 2023 98128 18721 4 Every week Transd ermal False Tizanidine 2 mg tablet [generic] 2mg By Mouth At bedtime For Muscle spasms 2mg 2023 Active 2023 02742 89446 0 At bedtime By Mouth False Humalog KwikPen (U-100) Insulin 100 unit/mL subcutaneou s units Subcutaneous T wice daily 70 thru 199 HOLD 200 thru 250 give 1.0 Unit 251 thru 300 give 2.0 Units 301 thru 350 give 3.0 Units 351 thru 400 give 4.0 Units For Steroid Therapy units 2023 Active 2023 25567 58211 9 Twice daily Subcut aneous False Flomax 0.4 mg capsule 1 capsule By Mouth At bedtime For urinary retnetion 1 capsule 12/24 Active 2023 41750 30488 1 At bedtime By Mouth False Cholecalcif hardeep (vitamin D3) 50 mcg (2,000 unit) tablet [generic] 50 mcg By Mouth Once daily For Supplement 50 mcg 2023 Active 2023 80114 21214 1 Once daily By Mouth False Colchicine 0.6 mg tablet [generic] 0.6 mg By Mouth Twice daily As Needed For Gout 0.6 mg 2023 Active 2023 87743 91900 4 Twice daily By Mouth False Levothyroxi ne 200 mcg tablet [generic] 200 mcg By Mouth Once daily For Hypothyroidis m 200 mcg 2023 Active 2023 29602 06677 0 Once daily By Mouth False Docusate sodium 100 mg capsule [generic] 100 mg By Mouth Twice daily For Constipation 100 mg 2023 Active 2023 77022 96767 1 Twice daily By Mouth False Pantoprazol e 40 mg tablet,nu yed release [generic] 40 mg By Mouth Twice daily For gerd 40 mg 2023 Active 2023 60938 83492 0 Twice daily By Mouth False Ondansetron 4 mg disintegrat ing tablet [generic] 4 mg By Mouth Every 8 hours For Nausea 4 mg 2023 Active 2023 15312 33534 4 Every 8 hours By Mouth False Pioglitazon e 15 mg tablet [generic] 7.5mg ( half a tab) By Mouth Once daily For TYPE 2 DIABETES MELLITUS WITHOUT COMPLICATIONS 7.5mg 2023 Active 2023 38197 75435 1 Once daily By Mouth E11.9 False Mylanta Coat-Cool 1,200 mg-270 mg-80 mg/10 mL oral suspension 10 ml By Mouth Every 8 hours As Needed For heartburn, indigestion, gas 10 ml 2023 Active 2023 80769 45607 1 Every 8 hours By Mouth False Prochlorper azine maleate 5 mg tablet [generic] 5 mg By Mouth Every 8 hours as needed For Nausea 5 mg 2023 Active 2023 48471 27890 1 Every 8 hours as needed By Mouth False Lorazepam 0.5 mg tablet [generic] 0.5 mg By Mouth Every 8 hours as needed For Anxiety 0.5 mg 2023 Active 2023 98430 44389 0 Every 8 hours as needed By Mouth False Oxycodone 5 mg tablet [generic] 5 mg By Mouth Every 6 hours as needed For Back Pain 5 mg 2023 Active 2023 08818 07868 1 Every 6 hours as needed By Mouth False Senna 8.6 mg tablet 17.2 mg By Mouth Twice daily For Constipation 17.2 mg 2023 Active 2023 66142 90589 1 Twice daily By Mouth False Zyprexa 2.5 mg tablet 2.5 mg By Mouth At bedtime For persistent nausea 2.5 mg 2023 Active 2023 00649 35610 0 At bedtime By Mouth False MAGNESSIUM GLUCONATE 500mg By Mouth Every morning For Supplement 500mg 2023 Active 2023 Every morning By Mouth False Cipro 250 mg tablet 250 mg By Mouth Twice daily For UTI 250 mg 2023 Active 2023 31731 24533 1 Twice daily By Mouth False Motrin IB 200 mg tablet 600 mg By Mouth Every 12 hours As Needed For Pain 600 mg 2023 Active 2023 06946 81135 2 Every 12 hours By Mouth False Butrans 7.5 mcg/hour transdermal patch 1 patch Transdermal Every 7 Days For Pain 1 patch 2023 Active 2023 17997 92721 4 Every week Transd ermal False Tizanidine 2 mg tablet [generic] 2mg By Mouth At bedtime For Muscle spasms 2mg 2023 Active 2023 70529 15108 0 At bedtime By Mouth False Humalog [...] order For Steroid Therapy 2023 Active 2023 66103 79508 9 Twice daily Subcut aneous False Flomax 0.4 mg capsule 1 capsule By Mouth At bedtime For urinary retnetion 1 capsule 2023 Active 2023 02925 21374 1 At bedtime By Mouth False Problems [...] Temperature SpO2 Blood Sugar Pulse Respirations 918 95678 5 75.00 mm[Hg] - Sitting 140.00 mm[Hg] - Sitting 65 NI 98.00 Tympanic 95.00 % 102.00 /min 18.00/min 918 51869 9 918 11336 2 75.00 mm[Hg] - Sitting 140.00 mm[Hg] - Sitting 98.00 Tympanic 102.00 /min 18.00/min 04700 918 12286 3 64202 918 85515 1 72.00 mm[Hg] - Sitting 138.00 mm[Hg] - Sitting 98.40 Tympanic 03367 918 23500 4 88.00/ min 18.00/min 36268 919 18525 4 71.00 mm[Hg] - Sitting 115.00 mm[Hg] - Sitting 98.30 Tympanic 97.00 % 86.00/ min 16.00/min 98371 919 98132 0 71.00 mm[Hg] - Sitting 115.00 mm[Hg] - Sitting 98.30 Tympanic 86.00/ min 16.00/min 19051 919 90174 7 71.00 mm[Hg] - Sitting 115.00 mm[Hg] - Sitting 98.30 Tympanic 86.00/ min 16.00/min 88428 920 68361 6 72.00 mm[Hg] - Sitting 112.00 mm[Hg] - Sitting 98.10 Tympanic 82.00/ min 18.00/min 59125 920 51282 0 75.00 mm[Hg] - Sitting 130.00 mm[Hg] - Sitting 98.40 Forehead Scan 93.00 % 88.00/ min 18.00/min 97481 920 68157 2 75.00 mm[Hg] - Lying Down 130.00 mm[Hg] - Lying Down 98.40 Tympanic 88.00/ min 18.00/min 88352 920 14042 5 75.00 mm[Hg] - Lying Down 130.00 mm[Hg] - Lying Down 98.40 Tympanic 88.00/ min 18.00/min 42804 920 95574 6 199.00 NI 57409 920 77171 3 75.00 mm[Hg] - Sitting 130.00 mm[Hg] - Sitting 98.40 Tympanic 88.00/ min 18.00/min 78270 921 91437 1 71.00 mm[Hg] - Lying Down 119.00 mm[Hg] - Lying Down 98.40 Forehead Scan 96.00 % 83.00/ min 16.00/min 20237 922 58685 6 71.00 mm[Hg] - Lying Down 128.00 mm[Hg] - Lying Down 98.30 Forehead Scan 94.00 % 84.00/ min 18.00/min 24397 923 13584 4 63.00 mm[Hg] - Sitting 105.00 mm[Hg] - Sitting 98.20 Tympanic 93.00 % 93.00/ min 18.00/min 28256 924 46075 8 66.00 mm[Hg] - Sitting 104.00 mm[Hg] - Sitting 98.20 Tympanic 98.00 % 84.00/ min 16.00/min 25996 925 22195 2 131.00 mg/dL 70077 925 97466 6 138.00 mg/dL 43829 926 43747 1 199.00 NI 96730 927 06691 7 98.40 Tympanic 86624 927 20025 0 78.00 mm[Hg] - Sitting 124.00 mm[Hg] - Sitting 98.30 Forehead Scan 95.00 % 83.00/ min 16.00/min 80445 927 60058 7 98.10 Tympanic 95787 928 17800 9 60.00 mm[Hg] - Sitting 99.00 mm[Hg] - Sitting 98.20 Tympanic 91.00 % 64.00/ min 16.00/min 99487 928 65324 0 98.40 Tympanic 83924 928 17209 0 235.00 mg/dL 33615 928 53819 2 98.30 Tympanic 20148 929 37964 0 159.00 mg/dL 70771 929 20359 1 98.10 Tympanic 38449 929 74719 5 97.90 Tympanic 52147 929 73464 1 72.00 mm[Hg] - Sitting 101.00 mm[Hg] - Sitting 97.90 Tympanic 92.00 % 65.00/ min 16.00/min
--- OUTSIDE RECORDS SUMMARY | 2023-12-13 23:54 | External Medical Summary | Continuity Of Care Document ---
Author Name Unknown Address [address] [place] [address] Organization [facility] () Care Team Providers Care Lobbyist Name Role Phone DO Parson Amy Primary Care Provider [phone] Allergies Allergy Reaction Start Date End Date [...] 3 0.1 mL 11/13 Inactiv e 2023 77323 23419 0 1 time Intrad ermal False Tubersol 5 tub. unit/0.1 mL intradermal injection solution [Tuberculin PPD] 0.1mL Intradermal 1 time For PPD 2nd Step Give 2nd Step PPD Day 1 and Read results Day 3 (schedule 7 days after 1st READ) 0.1mL 11/13 Inactiv e 2023 33339 58654 0 1 time Intrad ermal False DISCONTINUE as of 11/14/2023: Tubersol 5 tub. unit/0.1 mL intradermal injection solution [Tuberculin PPD] 11/13 Inactiv e 2023 56711 12189 0 Tubersol 5 tub. unit/0.1 mL intradermal injection solution 0.1 mL Intradermal 1 time For PPD Step 1 GIVE on Day 1 and read results Day 3 0.1 mL 11/16 Inactiv e 2023 95012 88704 1 1 time Intrad ermal False DISCONTINUE as of 11/14/2023: Tubersol 5 tub. unit/0.1 mL intradermal injection solution [Tuberculin PPD] 11/13 Inactiv e 2023 40237 17902 0 Tubersol 5 tub. unit/0.1 mL intradermal injection solution 0.1mL Intradermal 1 time For PPD 2nd Step Give 2nd Step PPD Day 1 and Read results Day 3 (schedule 7 days after 1st READ) 0.1mL 11/25 Active 2023 12409 36607 1 1 time Intrad ermal False Tylenol 325 mg tablet 2 tabs By Mouth Every 4 hours as needed For Pain DO NOT EXCEED 3000 MG APAP/24 Hours 2 tabs 202300 /0000 Active 2023 89213 14195 0 Every 4 hours as needed By Mouth False Tylenol 325 mg tablet 2 tabs By Mouth Every 4 hours as needed For Fever >100 DO NOT EXCEED 3000 MG APAP/24 Hours 2 tabs 202300 /0000 Active 2023 99851 03301 0 Every 4 hours as needed By Mouth False Dulcolax (bisacodyl) 10 mg rectal suppository One Suppository per rectum PRN if Milk of Magnisia ineffective. Give on day 5 of no BM 1 sup 2023 Active 2023 22741 45140 1 Daily as needed Rectal False Fleet Enema 19 gram-7 gram/118 mL Administer per rectum PRN one time if dulcolax suppository not effective. Give on day 6 of no BM 1 202300 0000 Active 2023 47414 60740 6 Daily as needed Rectal False Dextrose 50 % in water (D50W) intravenous solution [generic] Dextrose 50% reyes 20-50 ml (slow push) Intravenous if Glucagon not effective after 15 minutes. CALL 911 for ED Evaluation. 50% reyes 202300 /0000 Active 2023 84148 66287 9 Intrav enous False Glucagon (HCl) Emergency Kit 1 mg solution for injection Administer Glucagon 1 mg Intramuscular if 15 minutes after GLucose Gel is administered Glucose remains less than 70 1 mg 2023 Active 2023 52990 24460 2 Intram uscula r False Glucose Gel 40 % oral gel [Dextrose] PRN If resident is unable to swallow (with or without symptoms) and Glucose results less than 70 give GLucose 40% Gel 1 tube orally - Recheck Glucose 15 minutes after administratio n. 1 tube 2023 Active 2023 89162 91440 8 By Mouth False Lorazepam 0.5 mg tablet [generic] 0.5 mg By Mouth Every 8 hours as needed For Anxiety 0.5 mg 11/18 Inactiv e 2023 39007 77115 0 Every 8 hours as needed By Mouth False Potassium chloride ER 20 mEq tablet,exte nded release [generic] 40 meq By Mouth Once daily For Hypokalemia 40 meq 11/13 Inactiv e 2023 94058 95650 1 Once daily By Mouth False Colesevelam 625 mg tablet [generic] 1250 mg By Mouth Twice daily For TYPE 2 DIABETES MELLITUS WITHOUT COMPLICATIONS 1250 mg 11/19 Inactiv e 2023 24155 94442 1 Twice daily By Mouth E11.9 False Pioglitazon e 15 mg tablet [generic] 15 mg By Mouth Once daily For TYPE 2 DIABETES MELLITUS WITHOUT COMPLICATIONS 15 mg 11/14 Inactiv e 2023 67687 26030 1 Once daily By Mouth E11.9 False Cholecalcif hardeep (vitamin D3) 50 mcg (2,000 unit) tablet [generic] 50 mcg By Mouth Once daily For Supplement 50 mcg 2023 Active 2023 96678 24657 1 Once daily By Mouth False Colchicine 0.6 mg tablet [generic] 0.6 mg By Mouth Twice daily As Needed For Gout 0.6 mg 2023 Active 2023 87413 34413 4 Twice daily By Mouth False Levothyroxi ne 200 mcg tablet [generic] 200 mcg By Mouth Once daily For Hypothyroidis m 200 mcg 202300 0000 Active 2023 08206 98690 0 Once daily By Mouth False Ondansetron 4 mg disintegrat ing tablet [generic] 4 mg By Mouth Every 6 hours as needed For Nausea 4 mg 11/12 Inactiv e 2023 83636 90366 4 Every 6 hours as needed By Mouth False Docusate sodium 100 mg capsule [generic] 100 mg By Mouth Twice daily For Constipation 100 mg 202300 0000 Active 2023 00910 69029 1 Twice daily By Mouth False Oxycodone 5 mg tablet [generic] 5 mg By Mouth Every 6 hours as needed For Pain 5 mg 11/12 Inactiv e 2023 11122 72945 1 Every 6 hours as needed By Mouth False Oxycodone 5 mg tablet [generic] 5 mg By Mouth Every 6 hours as needed For Pain 5 mg 11/18 Inactiv e 2023 05401 17389 1 Every 6 hours as needed By Mouth False Milk of Magnesia 400 mg/5 mL oral suspension 30 ml By Mouth one time per day as needed if no BM x 3 days For Constipation 30 ml 202300 Active 2023 60159 80793 2 By Mouth False Ondansetron 4 mg disintegrat ing tablet [generic] 11/12 Inactiv e 2023 03670 22759 4 Ondansetron 4 mg disintegrat ing tablet [generic] 4 mg By Mouth Every 6 hours as needed For Nausea 4 mg 11/14 Inactiv e 2023 16959 57066 4 Every 6 hours as needed By Mouth False Potassium chloride ER 10 mEq capsule,ext ended release [generic] 40 mEq By Mouth Once daily For hypokalemia 40 mEq 11/17 Inactiv e 2023 94050 95788 1 Once daily By Mouth False Potassium chloride ER 10 mEq capsule,ext ended release [generic] 4 capsules By Mouth At bedtime For hypokalemia 4 capsule s 11/16 Inactiv e 2023 07209 54418 1 At bedtime By Mouth False Flomax 0.4 mg capsule 0.4 mg By Mouth At bedtime For Urinary retention 0.4 mg 11/18 Inactiv e 2023 86545 48447 1 At bedtime By Mouth False STOOL CULTURE Once daily Obtain stool culture, add C. Diff to routine stool culture For Rule out C. Diff 1x 2023 Active 2023 Once daily Other False Butrans 5 mcg/hour transdermal patch 1 patch Transdermal Every 7 Days For Pain 1 patch 11/20 Inactiv e 2023 96138 15341 4 Every week Transd ermal False Pantoprazol e 40 mg tablet,nu yed release [generic] 40 mg By Mouth Twice daily For gerd 40 mg 2023 Active 2023 42368 60000 0 Twice daily By Mouth False Scopolamine 1 mg over 3 days transdermal patch [generic] 1 Transdermal Every 72 hours For nausea 1 11/20 Inactiv e 2023 82304 17984 4 Every 72 hours Transd ermal False Ondansetron 4 mg disintegrat ing tablet [generic] 11/14 Inactiv e 2023 52107 34541 4 Ondansetron 4 mg disintegrat ing tablet [generic] 4 mg By Mouth Every 8 hours For Nausea 4 mg 2023 Active 2023 63254 27843 4 Every 8 hours By Mouth False Miralax 17 gram oral powder packet 8.5 g (1/2 capful) By Mouth Once daily For constipation 8.5 g 11/18 Inactiv e 2023 08749 57809 6 Once daily By Mouth False Pioglitazon e 15 mg tablet [generic] 11/14 Inactiv e 2023 11977 27991 1 E11.9 Pioglitazon e 15 mg tablet [generic] 7.5mg ( half a tab) By Mouth Once daily For TYPE 2 DIABETES MELLITUS WITHOUT COMPLICATIONS 7.5mg 2023 Active 2023 15296 28319 1 Once daily By Mouth E11.9 False Mylanta Coat-Cool 1,200 mg-270 mg-80 mg/10 mL oral suspension 10 ml By Mouth Every 8 hours As Needed For heartburn, indigestion, gas 10 ml 2023 Active 2023 11406 1 Every 8 hours By Mouth False Prochlorper azine maleate 5 mg tablet [generic] 5 mg By Mouth Every 8 hours as needed For Nausea 5 mg 2023 Active 2023 50659 83868 1 Every 8 hours as needed By Mouth False Potassium chloride ER 10 mEq capsule,ext ended release [generic] 10 meq By Mouth 4 times a day For Hypokalemia 10 meq 11/20 Inactiv e 2023 83360 82691 1 4 times a day By Mouth False Lorazepam 0.5 mg tablet [generic] 11/18 Inactiv e 2023 59469 46944 0 Lorazepam 0.5 mg tablet [generic] 0.5 mg By Mouth Every 8 hours as needed For Anxiety 0.5 mg 12/18 Active 2023 08057 73662 0 Every 8 hours as needed By Mouth False Problems Code Description Start [...] Temperature SpO2 Blood Sugar Pulse Respirations 8 21601 5 75.00 mm[Hg] - Sitting 140.00 mm[Hg] - Sitting 65 NI 98.00 Tympanic 95.00 % 102.00 /min 18.00/min 918 19409 9 8 58894 2 75.00 mm[Hg] - Sitting 140.00 mm[Hg] - Sitting 98.00 Tympanic 102.00 /min 18.00/min 51719 918 32000 3 88453 918 23004 1 72.00 mm[Hg] - Sitting 138.00 mm[Hg] - Sitting 98.40 Tympanic 02244 918 43055 4 88.00/ min 18.00/min 66858 919 55413 4 71.00 mm[Hg] - Sitting 115.00 mm[Hg] - Sitting 98.30 Tympanic 97.00 % 86.00/ min 16.00/min 77325 919 21174 0 71.00 mm[Hg] - Sitting 115.00 mm[Hg] - Sitting 98.30 Tympanic 86.00/ min 16.00/min 34082 919 35683 7 71.00 mm[Hg] - Sitting 115.00 mm[Hg] - Sitting 98.30 Tympanic 86.00/ min 16.00/min 53769 920 85562 6 72.00 mm[Hg] - Sitting 112.00 mm[Hg] - Sitting 98.10 Tympanic 82.00/ min 18.00/min 62092 920 08140 0 75.00 mm[Hg] - Sitting 130.00 mm[Hg] - Sitting 98.40 Forehead Scan 93.00 % 88.00/ min 18.00/min 15406 920 77864 2 75.00 mm[Hg] - Lying Down 130.00 mm[Hg] - Lying Down 98.40 Tympanic 88.00/ min 18.00/min 02808 920 40375 5 75.00 mm[Hg] - Lying Down 130.00 mm[Hg] - Lying Down 98.40 Tympanic 88.00/ min 18.00/min 99348 920 16804 6 199.00 [place] [address] 920 42971 3 75.00 mm[Hg] - Sitting 130.00 mm[Hg] - Sitting 98.40 Tympanic 88.00/ min 18.00/min 10328 921 07932 1 71.00 mm[Hg] - Lying Down 119.00 mm[Hg] - Lying Down 98.40 Forehead Scan 96.00 % 83.00/ min 16.00/min 33001 922 01809 6 71.00 mm[Hg] - Lying Down 128.00 mm[Hg] - Lying Down 98.30 Forehead Scan 94.00 % 84.00/ min 18.00/min 67682 923 88760 4 63.00 mm[Hg] - Sitting 105.00 mm[Hg] - Sitting 98.20 Tympanic 93.00 % 93.00/ min 18.00/min 83335 924 56290 8 98.20 Tympanic
--- OUTSIDE RECORDS SUMMARY | 2023-12-13 23:54 | External Medical Summary | Continuity Of Care Document ---
Author Name Unknown Address [address] [place] [address] Organization [facility] [place] () Care Team Providers [employer] Director Name Role Phone DO Parson Amy Primary Care Provider [phone] Allergies Allergy Reaction Start Date End Date [...] 3 0.1 mL 11/13 Inactiv e 2023 [id number] 95858 0 1 time Intrad ermal False Tubersol 5 tub. unit/0.1 mL intradermal injection solution [Tuberculin PPD] 0.1mL Intradermal 1 time For PPD 2nd Step Give 2nd Step PPD Day 1 and Read results Day 3 (schedule 7 days after 1st READ) 0.1mL 11/13 Inactiv e 2023 91752 35485 0 1 time Intrad ermal False DISCONTINUE as of 11/14/2023: Tubersol 5 tub. unit/0.1 mL intradermal injection solution [Tuberculin PPD] 11/13 Inactiv e 2023 08625 47088 0 Tubersol 5 tub. unit/0.1 mL intradermal injection solution 0.1 mL Intradermal 1 time For PPD Step 1 GIVE on Day 1 and read results Day 3 0.1 mL 11/16 Inactiv e 2023 93023 98130 1 1 time Intrad ermal False DISCONTINUE as of 11/14/2023: Tubersol 5 tub. unit/0.1 mL intradermal injection solution [Tuberculin PPD] 11/13 Inactiv e 2023 89531 31665 0 Tubersol 5 tub. unit/0.1 mL intradermal injection solution 0.1mL Intradermal 1 time For PPD 2nd Step Give 2nd Step PPD Day 1 and Read results Day 3 (schedule 7 days after 1st READ) 0.1mL 11/25 Active 2023 66400 34187 1 1 time Intrad ermal False Tylenol 325 mg tablet 2 tabs By Mouth Every 4 hours as needed For Pain DO NOT EXCEED 3000 MG APAP/24 Hours 2 tabs 202300 /0000 Active 2023 84774 43760 0 Every 4 hours as needed By Mouth False Tylenol 325 mg tablet 2 tabs By Mouth Every 4 hours as needed For Fever >100 DO NOT EXCEED 3000 MG APAP/24 Hours 2 tabs 202300 /0000 Active 2023 58351 09168 0 Every 4 hours as needed By Mouth False Dulcolax (bisacodyl) 10 mg rectal suppository One Suppository per rectum PRN if Milk of Magnisia ineffective. Give on day 5 of no BM 1 sup 2023 Active 2023 57428 44411 1 Daily as needed Rectal False Fleet Enema 19 gram-7 gram/118 mL Administer per rectum PRN one time if dulcolax suppository not effective. Give on day 6 of no BM 1 202300 0000 Active 2023 49005 57534 6 Daily as needed Rectal False Dextrose 50 % in water (D50W) intravenous solution [generic] Dextrose 50% reyes 20-50 ml (slow push) Intravenous if Glucagon not effective after 15 minutes. CALL 911 for ED Evaluation. 50% reyes 202300 /0000 Active 2023 46116 44705 9 Intrav enous False Glucagon (HCl) Emergency Kit 1 mg solution for injection Administer Glucagon 1 mg Intramuscular if 15 minutes after GLucose Gel is administered Glucose remains less than 70 1 mg 2023 Active 2023 49607 97379 2 Intram uscula r False Glucose Gel 40 % oral gel [Dextrose] PRN If resident is unable to swallow (with or without symptoms) and Glucose results less than 70 give GLucose 40% Gel 1 tube orally - Recheck Glucose 15 minutes after administratio n. 1 tube 2023 Active 2023 55930 45120 8 By Mouth False Lorazepam 0.5 mg tablet [generic] 0.5 mg By Mouth Every 8 hours as needed For Anxiety 0.5 mg 11/18 Inactiv e 2023 22735 90691 0 Every 8 hours as needed By Mouth False Potassium chloride ER 20 mEq tablet,exte nded release [generic] 40 meq By Mouth Once daily For Hypokalemia 40 meq 11/13 Inactiv e 2023 09160 69949 1 Once daily By Mouth False Colesevelam 625 mg tablet [generic] 1250 mg By Mouth Twice daily For TYPE 2 DIABETES MELLITUS WITHOUT COMPLICATIONS 1250 mg 11/19 Inactiv e 2023 92238 39166 1 Twice daily By Mouth E11.9 False Pioglitazon e 15 mg tablet [generic] 15 mg By Mouth Once daily For TYPE 2 DIABETES MELLITUS WITHOUT COMPLICATIONS 15 mg 11/14 Inactiv e 2023 44124 39964 1 Once daily By Mouth E11.9 False Cholecalcif hardeep (vitamin D3) 50 mcg (2,000 unit) tablet [generic] 50 mcg By Mouth Once daily For Supplement 50 mcg 2023 Active 2023 09885 13785 1 Once daily By Mouth False Colchicine 0.6 mg tablet [generic] 0.6 mg By Mouth Twice daily As Needed For Gout 0.6 mg 2023 Active 2023 98957 21677 4 Twice daily By Mouth False Levothyroxi ne 200 mcg tablet [generic] 200 mcg By Mouth Once daily For Hypothyroidis m 200 mcg 202300 0000 Active 2023 47154 43054 0 Once daily By Mouth False Ondansetron 4 mg disintegrat ing tablet [generic] 4 mg By Mouth Every 6 hours as needed For Nausea 4 mg 11/12 Inactiv e 2023 62451 24881 4 Every 6 hours as needed By Mouth False Docusate sodium 100 mg capsule [generic] 100 mg By Mouth Twice daily For Constipation 100 mg 202300 0000 Active 2023 14349 16475 1 Twice daily By Mouth False Oxycodone 5 mg tablet [generic] 5 mg By Mouth Every 6 hours as needed For Pain 5 mg 11/12 Inactiv e 2023 65288 41451 1 Every 6 hours as needed By Mouth False Oxycodone 5 mg tablet [generic] 5 mg By Mouth Every 6 hours as needed For Pain 5 mg 11/18 Inactiv e 2023 79164 87817 1 Every 6 hours as needed By Mouth False Milk of Magnesia 400 mg/5 mL oral suspension 30 ml By Mouth one time per day as needed if no BM x 3 days For Constipation 30 ml 202300 Active 2023 91621 50775 2 By Mouth False Ondansetron 4 mg disintegrat ing tablet [generic] 11/12 Inactiv e 2023 21646 78428 4 Ondansetron 4 mg disintegrat ing tablet [generic] 4 mg By Mouth Every 6 hours as needed For Nausea 4 mg 11/14 Inactiv e 2023 39073 84124 4 Every 6 hours as needed By Mouth False Potassium chloride ER 10 mEq capsule,ext ended release [generic] 40 mEq By Mouth Once daily For hypokalemia 40 mEq 11/17 Inactiv e 2023 83526 27031 1 Once daily By Mouth False Potassium chloride ER 10 mEq capsule,ext ended release [generic] 4 capsules By Mouth At bedtime For hypokalemia 4 capsule s 11/16 Inactiv e 2023 82958 69174 1 At bedtime By Mouth False Flomax 0.4 mg capsule 0.4 mg By Mouth At bedtime For Urinary retention 0.4 mg 11/18 Inactiv e 2023 07386 89139 1 At bedtime By Mouth False STOOL CULTURE Once daily Obtain stool culture, add C. Diff to routine stool culture For Rule out C. Diff 1x 2023 Active 2023 Once daily Other False Butrans 5 mcg/hour transdermal patch 1 patch Transdermal Every 7 Days For Pain 1 patch 11/20 Inactiv e 2023 96752 19381 4 Every week Transd ermal False Pantoprazol e 40 mg tablet,nu yed release [generic] 40 mg By Mouth Twice daily For gerd 40 mg 2023 Active 2023 00433 45270 0 Twice daily By Mouth False Scopolamine 1 mg over 3 days transdermal patch [generic] 1 Transdermal Every 72 hours For nausea 1 11/20 Inactiv e 2023 46568 00673 4 Every 72 hours Transd ermal False Ondansetron 4 mg disintegrat ing tablet [generic] 11/14 Inactiv e 2023 29084 61881 4 Ondansetron 4 mg disintegrat ing tablet [generic] 4 mg By Mouth Every 8 hours For Nausea 4 mg 2023 Active 2023 07492 50918 4 Every 8 hours By Mouth False Miralax 17 gram oral powder packet 8.5 g (1/2 capful) By Mouth Once daily For constipation 8.5 g 11/18 Inactiv e 2023 53550 71992 6 Once daily By Mouth False Pioglitazon e 15 mg tablet [generic] 11/14 Inactiv e 2023 21216 78189 1 E11.9 Pioglitazon e 15 mg tablet [generic] 7.5mg ( half a tab) By Mouth Once daily For TYPE 2 DIABETES MELLITUS WITHOUT COMPLICATIONS 7.5mg 2023 Active 2023 65602 73510 1 Once daily By Mouth E11.9 False Mylanta Coat-Cool 1,200 mg-270 mg-80 mg/10 mL oral suspension 10 ml By Mouth Every 8 hours As Needed For heartburn, indigestion, gas 10 ml 2023 Active 2023 24905 26114 1 Every 8 hours By Mouth False Prochlorper azine maleate 5 mg tablet [generic] 5 mg By Mouth Every 8 hours as needed For Nausea 5 mg 2023 Active 2023 92931 48336 1 Every 8 hours as needed By Mouth False Potassium chloride ER 10 mEq capsule,ext ended release [generic] 10 meq By Mouth 4 times a day For Hypokalemia 10 meq 11/20 Inactiv e 2023 99207 81478 1 4 times a day By Mouth False Lorazepam 0.5 mg tablet [generic] 11/18 Inactiv e 2023 71042 50042 0 Lorazepam 0.5 mg tablet [generic] 0.5 mg By Mouth Every 8 hours as needed For Anxiety 0.5 mg 12/18 Active 2023 68322 13050 0 Every 8 hours as needed By Mouth False Flomax 0.4 mg capsule 11/18 Inactiv e 2023 67754 88602 1 Flomax 0.4 mg capsule 0.4 mg By Mouth Once daily For Urinary retention 0.4 mg 11/19 Inactiv e 2023 16237 81300 1 Once daily By Mouth False Oxycodone 5 mg tablet [generic] 11/18 Inactiv e 2023 30854 93946 1 Oxycodone 5 mg tablet [generic] 5 mg By Mouth Every 6 hours as needed For Back Pain 5 mg 2023 Active 2023 03498 80719 1 Every 6 hours as needed By Mouth False Cipro 250 mg tablet 250 mg By Mouth Twice daily For UTI 250 mg 11/19 Inactiv e 2023 30462 23436 1 Twice daily By Mouth False Senna 8.6 mg tablet 17.2 mg By Mouth Twice daily For Constipation 17.2 mg 2023 Active 2023 66623 19207 1 Twice daily By Mouth False Zyprexa 2.5 mg tablet 2.5 mg By Mouth At bedtime For persistent nausea 2.5 mg 2023 Active 2023 71562 14106 0 At bedtime By Mouth False MAGNESSIUM GLUCONATE 500mg By Mouth Every morning For Supplement 500mg 2023 Active 2023 Every morning By Mouth False Cipro 250 mg tablet 11/19 Inactiv e 2023 27673 60284 1 Cipro 250 mg tablet 250 mg By Mouth Twice daily For UTI 250 mg 11/26 Active 2023 69040 98286 1 Twice daily By Mouth False Flomax 0.4 mg capsule 11/19 Inactiv e 2023 32555 33901 1 Flomax 0.4 mg capsule 0.4 mg By Mouth Once daily For Urinary retention 0.4 mg 11/20 Inactiv e 2023 90191 81261 1 Once daily By Mouth False Motrin IB 200 mg tablet 600 mg By Mouth Every 12 hours As Needed For Pain 600 mg 11/20 Inactiv e 2023 61937 18969 2 Every 12 hours By Mouth False Motrin IB 200 mg tablet 600 mg By Mouth Every 12 hours As Needed For Pain 600 mg 11/20 Inactiv e 2023 15197 05772 2 Every 12 hours By Mouth False Motrin IB 200 mg tablet 600 mg By Mouth Every 12 hours As Needed For Pain 600 mg 11/27 Active 2023 14252 34275 2 Every 12 hours By Mouth False Flomax 0.4 mg capsule 0.4 mg By Mouth Once daily For Urinary retention 0.4 mg 11/21 Inactiv e 2023 77724 19742 1 Once daily By Mouth False Scopolamine 1 mg over 3 days transdermal patch [generic] 1 Transdermal Every 72 hours For nausea 1 11/22 Inactiv e 2023 34840 82474 4 Every 72 hours Transd ermal False Butrans 7.5 mcg/hour transdermal patch 1 patch Transdermal Every 7 Days For Pain 1 patch 202300 0000 Active 2023 60102 49110 4 Every week Transd ermal False Tizanidine 2 mg tablet [generic] 2mg By Mouth At bedtime For Muscle spasms 2mg 202300 /0000 Active 2023 95514 16620 0 At bedtime By Mouth False Prednisone 20 mg tablet [generic] 60 mg By Mouth 1 time For Sciatica Pain 60 mg 11/22 Inactiv e 2023 32093 29622 1 1 time By Mouth False Prednisone 20 mg tablet [generic] 40mg By Mouth 1 time For Sciatica Pain 40mg 11/23 Inactiv e 2023 36376 97036 1 1 time By Mouth False Prednisone 20 mg tablet [generic] 20mg By Mouth 1 time For Sciatica 20mg 11/24 Inactiv e 2023 22997 50367 1 1 time By Mouth False ACCU [...] order For Steroid Therapy 11/28 Active 2023 12419 83142 9 Twice daily Subcut aneous False Flomax 0.4 mg capsule 1 capsule By Mouth At bedtime For urinary retnetion 1 capsule 12/24 Active 2023 04123 49042 1 At bedtime By Mouth False Cholecalcif hardeep (vitamin D3) 50 mcg (2,000 unit) tablet [generic] 50 mcg By Mouth Once daily For Supplement 50 mcg 2023 Active 2023 07165 07219 1 Once daily By Mouth False Colchicine 0.6 mg tablet [generic] 0.6 mg By Mouth Twice daily As Needed For Gout 0.6 mg 2023 Active 2023 43828 89276 4 Twice daily By Mouth False Levothyroxi ne 200 mcg tablet [generic] 200 mcg By Mouth Once daily For Hypothyroidis m 200 mcg 2023 Active 2023 74632 98698 0 Once daily By Mouth False Docusate sodium 100 mg capsule [generic] 100 mg By Mouth Twice daily For Constipation 100 mg 2023 Active 2023 65336 43860 1 Twice daily By Mouth False Pantoprazol e 40 mg tablet,nu yed release [generic] 40 mg By Mouth Twice daily For gerd 40 mg 2023 Active 2023 03180 59898 0 Twice daily By Mouth False Ondansetron 4 mg disintegrat ing tablet [generic] 4 mg By Mouth Every 8 hours For Nausea 4 mg 2023 Active 2023 50361 00150 4 Every 8 hours By Mouth False Pioglitazon e 15 mg tablet [generic] 7.5mg ( half a tab) By Mouth Once daily For TYPE 2 DIABETES MELLITUS WITHOUT COMPLICATIONS 7.5mg 2023 Active 2023 09170 63835 1 Once daily By Mouth E11.9 False Mylanta Coat-Cool 1,200 mg-270 mg-80 mg/10 mL oral suspension 10 ml By Mouth Every 8 hours As Needed For heartburn, indigestion, gas 10 ml 2023 Active 20233 41235 1 Every 8 hours By Mouth False Prochlorper azine maleate 5 mg tablet [generic] 5 mg By Mouth Every 8 hours as needed For Nausea 5 mg 2023 Active 2023 54965 75129 1 Every 8 hours as needed By Mouth False Lorazepam 0.5 mg tablet [generic] 0.5 mg By Mouth Every 8 hours as needed For Anxiety 0.5 mg 2023 Active 2023 84627 81909 0 Every 8 hours as needed By Mouth False Oxycodone 5 mg tablet [generic] 5 mg By Mouth Every 6 hours as needed For Back Pain 5 mg 2023 Active 2023 08023 62169 1 Every 6 hours as needed By Mouth False Senna 8.6 mg tablet 17.2 mg By Mouth Twice daily For Constipation 17.2 mg 2023 Active 2023 49681 80486 1 Twice daily By Mouth False Zyprexa 2.5 mg tablet 2.5 mg By Mouth At bedtime For persistent nausea 2.5 mg 2023 Active 2023 87137 81181 0 At bedtime By Mouth False MAGNESSIUM GLUCONATE 500mg By Mouth Every morning For Supplement 500mg 2023 Active 2023 Every morning By Mouth False Cipro 250 mg tablet 250 mg By Mouth Twice daily For UTI 250 mg 2023 Active 2023 42410 02788 1 Twice daily By Mouth False Motrin IB 200 mg tablet 600 mg By Mouth Every 12 hours As Needed For Pain 600 mg 2023 Active 2023 82076 49745 2 Every 12 hours By Mouth False Butrans 7.5 mcg/hour transdermal patch 1 patch Transdermal Every 7 Days For Pain 1 patch 2023 Active 2023 09772 86795 4 Every week Transd ermal False Tizanidine 2 mg tablet [generic] 2mg By Mouth At bedtime For Muscle spasms 2mg 2023 Active 2023 86597 74570 0 At bedtime By Mouth False Humalog [...] order For Steroid Therapy 2023 Active 2023 75722 01341 9 Twice daily Subcut aneous False Cholecalcif hardeep (vitamin D3) 50 mcg (2,000 unit) tablet [generic] 50 mcg By Mouth Once daily For Supplement 50 mcg 2023 Active 2023 36959 71151 1 Once daily By Mouth False Colchicine 0.6 mg tablet [generic] 0.6 mg By Mouth Twice daily As Needed For Gout 0.6 mg 2023 Active 2023 89443 50220 4 Twice daily By Mouth False Levothyroxi ne 200 mcg tablet [generic] 200 mcg By Mouth Once daily For Hypothyroidis m 200 mcg 2023 Active 2023 05464 83486 0 Once daily By Mouth False Docusate sodium 100 mg capsule [generic] 100 mg By Mouth Twice daily For Constipation 100 mg 2023 Active 2023 17759 35498 1 Twice daily By Mouth False Pantoprazol e 40 mg tablet,nu yed release [generic] 40 mg By Mouth Twice daily For gerd 40 mg 2023 Active 2023 59197 29029 0 Twice daily By Mouth False Ondansetron 4 mg disintegrat ing tablet [generic] 4 mg By Mouth Every 8 hours For Nausea 4 mg 2023 Active 2023 81649 20190 4 Every 8 hours By Mouth False Pioglitazon e 15 mg tablet [generic] 7.5mg ( half a tab) By Mouth Once daily For TYPE 2 DIABETES MELLITUS WITHOUT COMPLICATIONS 7.5mg 2023 Active 2023 55810 93934 1 Once daily By Mouth E11.9 False Mylanta Coat-Cool 1,200 mg-270 mg-80 mg/10 mL oral suspension 10 ml By Mouth Every 8 hours As Needed For heartburn, indigestion, gas 10 ml 2023 Active 2023 44673 24098 1 Every 8 hours By Mouth False Prochlorper azine maleate 5 mg tablet [generic] 5 mg By Mouth Every 8 hours as needed For Nausea 5 mg 2023 Active 2023 07757 68061 1 Every 8 hours as needed By Mouth False Lorazepam 0.5 mg tablet [generic] 0.5 mg By Mouth Every 8 hours as needed For Anxiety 0.5 mg 2023 Active 2023 88826 05712 0 Every 8 hours as needed By Mouth False Oxycodone 5 mg tablet [generic] 5 mg By Mouth Every 6 hours as needed For Back Pain 5 mg 2023 Active 2023 96087 13660 1 Every 6 hours as needed By Mouth False Senna 8.6 mg tablet 17.2 mg By Mouth Twice daily For Constipation 17.2 mg 2023 Active 2023 29718 66641 1 Twice daily By Mouth False Zyprexa 2.5 mg tablet 2.5 mg By Mouth At bedtime For persistent nausea 2.5 mg 2023 Active 2023 10827 56168 0 At bedtime By Mouth False MAGNESSIUM GLUCONATE 500mg By Mouth Every morning For Supplement 500mg 2023 Active 2023 Every morning By Mouth False Cipro 250 mg tablet 250 mg By Mouth Twice daily For UTI 250 mg 2023 Active 2023 06979 26994 1 Twice daily By Mouth False Motrin IB 200 mg tablet 600 mg By Mouth Every 12 hours As Needed For Pain 600 mg 2023 Active 2023 96278 04024 2 Every 12 hours By Mouth False Butrans 7.5 mcg/hour transdermal patch 1 patch Transdermal Every 7 Days For Pain 1 patch 2023 Active 2023 43759 09872 4 Every week Transd ermal False Tizanidine 2 mg tablet [generic] 2mg By Mouth At bedtime For Muscle spasms 2mg 2023 Active 2023 17867 81060 0 At bedtime By Mouth False Humalog KwikPen (U-100) Insulin 100 unit/mL subcutaneou s units Subcutaneous T wice daily 70 thru 199 HOLD 200 thru 250 give 1.0 Unit 251 thru 300 give 2.0 Units 301 thru 350 give 3.0 Units 351 thru 400 give 4.0 Units For Steroid Therapy units 2023 Active 2023 57491 58429 9 Twice daily Subcut aneous False Flomax 0.4 mg capsule 1 capsule By Mouth At bedtime For urinary retnetion 1 capsule 12/24 Active 2023 84410 25715 1 At bedtime By Mouth False Cholecalcif hardeep (vitamin D3) 50 mcg (2,000 unit) tablet [generic] 50 mcg By Mouth Once daily For Supplement 50 mcg 2023 Active 2023 72610 92243 1 Once daily By Mouth False Colchicine 0.6 mg tablet [generic] 0.6 mg By Mouth Twice daily As Needed For Gout 0.6 mg 2023 Active 2023 12118 46394 4 Twice daily By Mouth False Levothyroxi ne 200 mcg tablet [generic] 200 mcg By Mouth Once daily For Hypothyroidis m 200 mcg 2023 Active 2023 56259 29920 0 Once daily By Mouth False Docusate sodium 100 mg capsule [generic] 100 mg By Mouth Twice daily For Constipation 100 mg 2023 Active 2023 79875 89680 1 Twice daily By Mouth False Pantoprazol e 40 mg tablet,nu yed release [generic] 40 mg By Mouth Twice daily For gerd 40 mg 2023 Active 2023 95967 00029 0 Twice daily By Mouth False Ondansetron 4 mg disintegrat ing tablet [generic] 4 mg By Mouth Every 8 hours For Nausea 4 mg 2023 Active 2023 76194 09242 4 Every 8 hours By Mouth False Pioglitazon e 15 mg tablet [generic] 7.5mg ( half a tab) By Mouth Once daily For TYPE 2 DIABETES MELLITUS WITHOUT COMPLICATIONS 7.5mg 2023 Active 2023 28036 77659 1 Once daily By Mouth E11.9 False Mylanta Coat-Cool 1,200 mg-270 mg-80 mg/10 mL oral suspension 10 ml By Mouth Every 8 hours As Needed For heartburn, indigestion, gas 10 ml 2023 Active 2023 79786 15391 1 Every 8 hours By Mouth False Prochlorper azine maleate 5 mg tablet [generic] 5 mg By Mouth Every 8 hours as needed For Nausea 5 mg 2023 Active 2023 87497 46528 1 Every 8 hours as needed By Mouth False Lorazepam 0.5 mg tablet [generic] 0.5 mg By Mouth Every 8 hours as needed For Anxiety 0.5 mg 2023 Active 2023 03240 68277 0 Every 8 hours as needed By Mouth False Oxycodone 5 mg tablet [generic] 5 mg By Mouth Every 6 hours as needed For Back Pain 5 mg 2023 Active 2023 77001 74605 1 Every 6 hours as needed By Mouth False Senna 8.6 mg tablet 17.2 mg By Mouth Twice daily For Constipation 17.2 mg 2023 Active 2023 80882 52357 1 Twice daily By Mouth False Zyprexa 2.5 mg tablet 2.5 mg By Mouth At bedtime For persistent nausea 2.5 mg 2023 Active 2023 58683 97918 0 At bedtime By Mouth False MAGNESSIUM GLUCONATE 500mg By Mouth Every morning For Supplement 500mg 2023 Active 2023 Every morning By Mouth False Cipro 250 mg tablet 250 mg By Mouth Twice daily For UTI 250 mg 2023 Active 2023 79888 50196 1 Twice daily By Mouth False Motrin IB 200 mg tablet 600 mg By Mouth Every 12 hours As Needed For Pain 600 mg 2023 Active 2023 34785 25261 2 Every 12 hours By Mouth False Butrans 7.5 mcg/hour transdermal patch 1 patch Transdermal Every 7 Days For Pain 1 patch 2023 Active 2023 32037 48227 4 Every week Transd ermal False Tizanidine 2 mg tablet [generic] 2mg By Mouth At bedtime For Muscle spasms 2mg 2023 Active 2023 03275 22892 0 At bedtime By Mouth False Humalog [...] order For Steroid Therapy 2023 Active 2023 92394 57190 9 Twice daily Subcut aneous False Flomax 0.4 mg capsule 1 capsule By Mouth At bedtime For urinary retnetion 1 capsule 2023 Active 2023 86057 33133 1 At bedtime By Mouth False Problems [...] Temperature SpO2 Blood Sugar Pulse Respirations 918 34716 5 75.00 mm[Hg] - Sitting 140.00 mm[Hg] - Sitting 65 NI 98.00 Tympanic 95.00 % 102.00 /min 18.00/min 918 43602 9 918 53854 2 75.00 mm[Hg] - Sitting 140.00 mm[Hg] - Sitting 98.00 Tympanic 102.00 /min 18.00/min 05232 918 17144 3 55753 918 98229 1 72.00 mm[Hg] - Sitting 138.00 mm[Hg] - Sitting 98.40 Tympanic 54281 918 96921 4 88.00/ min 18.00/min 48216 919 69746 4 71.00 mm[Hg] - Sitting 115.00 mm[Hg] - Sitting 98.30 Tympanic 97.00 % 86.00/ min 16.00/min 10661 919 13007 0 71.00 mm[Hg] - Sitting 115.00 mm[Hg] - Sitting 98.30 Tympanic 86.00/ min 16.00/min 15007 919 02796 7 71.00 mm[Hg] - Sitting 115.00 mm[Hg] - Sitting 98.30 Tympanic 86.00/ min 16.00/min 41851 920 77787 6 72.00 mm[Hg] - Sitting 112.00 mm[Hg] - Sitting 98.10 Tympanic 82.00/ min 18.00/min 33939 920 03313 0 75.00 mm[Hg] - Sitting 130.00 mm[Hg] - Sitting 98.40 Forehead Scan 93.00 % 88.00/ min 18.00/min 36504 920 90452 2 75.00 mm[Hg] - Lying Down 130.00 mm[Hg] - Lying Down 98.40 Tympanic 88.00/ min 18.00/min 08647 920 64550 5 75.00 mm[Hg] - Lying Down 130.00 mm[Hg] - Lying Down 98.40 Tympanic 88.00/ min 18.00/min 17096 920 98269 6 199.00 NI 19372 920 43077 3 75.00 mm[Hg] - Sitting 130.00 mm[Hg] - Sitting 98.40 Tympanic 88.00/ min 18.00/min 28951 921 80286 1 71.00 mm[Hg] - Lying Down 119.00 mm[Hg] - Lying Down 98.40 Forehead Scan 96.00 % 83.00/ min 16.00/min 75681 922 46207 6 71.00 mm[Hg] - Lying Down 128.00 mm[Hg] - Lying Down 98.30 Forehead Scan 94.00 % 84.00/ min 18.00/min 71712 923 84012 4 63.00 mm[Hg] - Sitting 105.00 mm[Hg] - Sitting 98.20 Tympanic 93.00 % 93.00/ min 18.00/min 71115 924 04817 8 66.00 mm[Hg] - Sitting 104.00 mm[Hg] - Sitting 98.20 Tympanic 98.00 % 84.00/ min 16.00/min 16710 925 92612 2 131.00 mg/dL 00346 925 73163 6 138.00 mg/dL 91007 926 03615 1 199.00 NI [address] 927 48405 7 98.40 Tympanic 72469 927 43510 0 78.00 mm[Hg] - Sitting 124.00 mm[Hg] - Sitting 98.30 Forehead Scan 95.00 % 83.00/ min 16.00/min 80639 927 08948 7 98.10 Tympanic 06520 928 43717 9 60.00 mm[Hg] - Sitting 99.00 mm[Hg] - Sitting 98.20 Tympanic 91.00 % 64.00/ min 16.00/min 77636 928 31940 0 98.40 Tympanic 21860 928 66645 0 235.00 mg/dL 93372 928 18018 2 98.30 Tympanic 03903 929 29497 0 159.00 mg/dL 08380 929 12962 1 98.10 Tympanic 36094 929 11722 5 97.90 Tympanic 50625 929 83980 1 72.00 mm[Hg] - Sitting 101.00 mm[Hg] - Sitting 97.90 Tympanic 92.00 % 65.00/ min 16.00/min
--- OUTSIDE RECORDS SUMMARY | 2023-12-13 23:55 | External Medical Summary | Continuity Of Care Document ---
Author Name Unknown Address [address] [place] [address] Organization [facility] [place] () Care Team Providers Care Supervisor Coin Machine Name Role Phone DO Parson Amy Primary Care Provider [phone] Allergies Allergy Reaction Start Date End Date [...] 3 0.1 mL 11/13 Inactiv e 2023 40232 15135 0 1 time Intrad ermal False Tubersol 5 tub. unit/0.1 mL intradermal injection solution [Tuberculin PPD] 0.1mL Intradermal 1 time For PPD 2nd Step Give 2nd Step PPD Day 1 and Read results Day 3 (schedule 7 days after 1st READ) 0.1mL 11/13 Inactiv e 2023 60215 27777 0 1 time Intrad ermal False DISCONTINUE as of 11/14/2023: Tubersol 5 tub. unit/0.1 mL intradermal injection solution [Tuberculin PPD] 11/13 Inactiv e 2023 96688 92583 0 Tubersol 5 tub. unit/0.1 mL intradermal injection solution 0.1 mL Intradermal 1 time For PPD Step 1 GIVE on Day 1 and read results Day 3 0.1 mL 11/16 Inactiv e 2023 63851 35819 1 1 time Intrad ermal False DISCONTINUE as of 11/14/2023: Tubersol 5 tub. unit/0.1 mL intradermal injection solution [Tuberculin PPD] 11/13 Inactiv e 2023 22574 44393 0 Tubersol 5 tub. unit/0.1 mL intradermal injection solution 0.1mL Intradermal 1 time For PPD 2nd Step Give 2nd Step PPD Day 1 and Read results Day 3 (schedule 7 days after 1st READ) 0.1mL 11/25 Active 2023 28923 97198 1 1 time Intrad ermal False Tylenol 325 mg tablet 2 tabs By Mouth Every 4 hours as needed For Pain DO NOT EXCEED 3000 MG APAP/24 Hours 2 tabs 202300 /0000 Active 2023 16631 91383 0 Every 4 hours as needed By Mouth False Tylenol 325 mg tablet 2 tabs By Mouth Every 4 hours as needed For Fever >100 DO NOT EXCEED 3000 MG APAP/24 Hours 2 tabs 202300 /0000 Active 2023 82635 36574 0 Every 4 hours as needed By Mouth False Dulcolax (bisacodyl) 10 mg rectal suppository One Suppository per rectum PRN if Milk of Magnisia ineffective. Give on day 5 of no BM 1 sup 2023 Active 2023 02348 16003 1 Daily as needed Rectal False Fleet Enema 19 gram-7 gram/118 mL Administer per rectum PRN one time if dulcolax suppository not effective. Give on day 6 of no BM 1 202300 0000 Active 2023 25079 07382 6 Daily as needed Rectal False Dextrose 50 % in water (D50W) intravenous solution [generic] Dextrose 50% reyes 20-50 ml (slow push) Intravenous if Glucagon not effective after 15 minutes. CALL 911 for ED Evaluation. 50% reyes 202300 /0000 Active 2023 40071 85591 9 Intrav enous False Glucagon (HCl) Emergency Kit 1 mg solution for injection Administer Glucagon 1 mg Intramuscular if 15 minutes after GLucose Gel is administered Glucose remains less than 70 1 mg 2023 Active 2023 92241 15786 2 Intram uscula r False Glucose Gel 40 % oral gel [Dextrose] PRN If resident is unable to swallow (with or without symptoms) and Glucose results less than 70 give GLucose 40% Gel 1 tube orally - Recheck Glucose 15 minutes after administratio n. 1 tube 2023 Active 2023 17521 74022 8 By Mouth False Lorazepam 0.5 mg tablet [generic] 0.5 mg By Mouth Every 8 hours as needed For Anxiety 0.5 mg 11/18 Inactiv e 2023 89650 49875 0 Every 8 hours as needed By Mouth False Potassium chloride ER 20 mEq tablet,exte nded release [generic] 40 meq By Mouth Once daily For Hypokalemia 40 meq 11/13 Inactiv e 2023 80386 53152 1 Once daily By Mouth False Colesevelam 625 mg tablet [generic] 1250 mg By Mouth Twice daily For TYPE 2 DIABETES MELLITUS WITHOUT COMPLICATIONS 1250 mg 11/19 Inactiv e 2023 98534 58530 1 Twice daily By Mouth E11.9 False Pioglitazon e 15 mg tablet [generic] 15 mg By Mouth Once daily For TYPE 2 DIABETES MELLITUS WITHOUT COMPLICATIONS 15 mg 11/14 Inactiv e 2023 50778 13458 1 Once daily By Mouth E11.9 False Cholecalcif hardeep (vitamin D3) 50 mcg (2,000 unit) tablet [generic] 50 mcg By Mouth Once daily For Supplement 50 mcg 2023 Active 2023 60652 29267 1 Once daily By Mouth False Colchicine 0.6 mg tablet [generic] 0.6 mg By Mouth Twice daily As Needed For Gout 0.6 mg 2023 Active 2023 48094 56884 4 Twice daily By Mouth False Levothyroxi ne 200 mcg tablet [generic] 200 mcg By Mouth Once daily For Hypothyroidis m 200 mcg 202300 0000 Active 2023 73734 84422 0 Once daily By Mouth False Ondansetron 4 mg disintegrat ing tablet [generic] 4 mg By Mouth Every 6 hours as needed For Nausea 4 mg 11/12 Inactiv e 2023 85640 43063 4 Every 6 hours as needed By Mouth False Docusate sodium 100 mg capsule [generic] 100 mg By Mouth Twice daily For Constipation 100 mg 202300 0000 Active 2023 94764 77438 1 Twice daily By Mouth False Oxycodone 5 mg tablet [generic] 5 mg By Mouth Every 6 hours as needed For Pain 5 mg 11/12 Inactiv e 2023 01415 19929 1 Every 6 hours as needed By Mouth False Oxycodone 5 mg tablet [generic] 5 mg By Mouth Every 6 hours as needed For Pain 5 mg 11/18 Inactiv e 2023 07705 25222 1 Every 6 hours as needed By Mouth False Milk of Magnesia 400 mg/5 mL oral suspension 30 ml By Mouth one time per day as needed if no BM x 3 days For Constipation 30 ml 202300 Active 2023 95071 74802 2 By Mouth False Ondansetron 4 mg disintegrat ing tablet [generic] 11/12 Inactiv e 2023 77891 28578 4 Ondansetron 4 mg disintegrat ing tablet [generic] 4 mg By Mouth Every 6 hours as needed For Nausea 4 mg 11/14 Inactiv e 2023 79301 76565 4 Every 6 hours as needed By Mouth False Potassium chloride ER 10 mEq capsule,ext ended release [generic] 40 mEq By Mouth Once daily For hypokalemia 40 mEq 11/17 Inactiv e 2023 18375 34279 1 Once daily By Mouth False Potassium chloride ER 10 mEq capsule,ext ended release [generic] 4 capsules By Mouth At bedtime For hypokalemia 4 capsule s 11/16 Inactiv e 2023 88162 17804 1 At bedtime By Mouth False Flomax 0.4 mg capsule 0.4 mg By Mouth At bedtime For Urinary retention 0.4 mg 11/18 Inactiv e 2023 03591 60651 1 At bedtime By Mouth False STOOL CULTURE Once daily Obtain stool culture, add C. Diff to routine stool culture For Rule out C. Diff 1x 2023 Active 2023 Once daily Other False Butrans 5 mcg/hour transdermal patch 1 patch Transdermal Every 7 Days For Pain 1 patch 11/20 Inactiv e 2023 19628 65751 4 Every week Transd ermal False Pantoprazol e 40 mg tablet,nu yed release [generic] 40 mg By Mouth Twice daily For gerd 40 mg 2023 Active 2023 06410 95534 0 Twice daily By Mouth False Scopolamine 1 mg over 3 days transdermal patch [generic] 1 Transdermal Every 72 hours For nausea 1 11/20 Inactiv e 2023 18230 42153 4 Every 72 hours Transd ermal False Ondansetron 4 mg disintegrat ing tablet [generic] 11/14 Inactiv e 2023 30145 81991 4 Ondansetron 4 mg disintegrat ing tablet [generic] 4 mg By Mouth Every 8 hours For Nausea 4 mg 2023 Active 2023 92062 37258 4 Every 8 hours By Mouth False Miralax 17 gram oral powder packet 8.5 g (1/2 capful) By Mouth Once daily For constipation 8.5 g 11/18 Inactiv e 2023 13223 09793 6 Once daily By Mouth False Pioglitazon e 15 mg tablet [generic] 11/14 Inactiv e 2023 82191 14402 1 E11.9 Pioglitazon e 15 mg tablet [generic] 7.5mg ( half a tab) By Mouth Once daily For TYPE 2 DIABETES MELLITUS WITHOUT COMPLICATIONS 7.5mg 2023 Active 2023 62415 91326 1 Once daily By Mouth E11.9 False Mylanta Coat-Cool 1,200 mg-270 mg-80 mg/10 mL oral suspension 10 ml By Mouth Every 8 hours As Needed For heartburn, indigestion, gas 10 ml 2023 Active 2023 54844 62953 1 Every 8 hours By Mouth False Prochlorper azine maleate 5 mg tablet [generic] 5 mg By Mouth Every 8 hours as needed For Nausea 5 mg 2023 Active 2023 58712 91049 1 Every 8 hours as needed By Mouth False Potassium chloride ER 10 mEq capsule,ext ended release [generic] 10 meq By Mouth 4 times a day For Hypokalemia 10 meq 11/20 Inactiv e 2023 90851 51211 1 4 times a day By Mouth False Lorazepam 0.5 mg tablet [generic] 11/18 Inactiv e 2023 43114 20234 0 Lorazepam 0.5 mg tablet [generic] 0.5 mg By Mouth Every 8 hours as needed For Anxiety 0.5 mg 12/18 Active 2023 49580 60689 0 Every 8 hours as needed By Mouth False Flomax 0.4 mg capsule 11/18 Inactiv e 2023 68670 72413 1 Flomax 0.4 mg capsule 0.4 mg By Mouth Once daily For Urinary retention 0.4 mg 11/19 Inactiv e 2023 48980 96964 1 Once daily By Mouth False Oxycodone 5 mg tablet [generic] 11/18 Inactiv e 2023 37106 77956 1 Oxycodone 5 mg tablet [generic] 5 mg By Mouth Every 6 hours as needed For Back Pain 5 mg 2023 Active 2023 01954 05271 1 Every 6 hours as needed By Mouth False Cipro 250 mg tablet 250 mg By Mouth Twice daily For UTI 250 mg 11/19 Inactiv e 2023 80774 64176 1 Twice daily By Mouth False Senna 8.6 mg tablet 17.2 mg By Mouth Twice daily For Constipation 17.2 mg 2023 Active 2023 53587 26302 1 Twice daily By Mouth False Zyprexa 2.5 mg tablet 2.5 mg By Mouth At bedtime For persistent nausea 2.5 mg 2023 Active 2023 92070 84440 0 At bedtime By Mouth False MAGNESSIUM GLUCONATE 500mg By Mouth Every morning For Supplement 500mg 2023 Active 2023 Every morning By Mouth False Cipro 250 mg tablet 11/19 Inactiv e 2023 44309 37837 1 Cipro 250 mg tablet 250 mg By Mouth Twice daily For UTI 250 mg 11/26 Active 2023 36223 89628 1 Twice daily By Mouth False Flomax 0.4 mg capsule 11/19 Inactiv e 2023 04983 53964 1 Flomax 0.4 mg capsule 0.4 mg By Mouth Once daily For Urinary retention 0.4 mg 11/20 Inactiv e 2023 28441 54859 1 Once daily By Mouth False Motrin IB 200 mg tablet 600 mg By Mouth Every 12 hours As Needed For Pain 600 mg 11/20 Inactiv e 2023 65685 98444 2 Every 12 hours By Mouth False Motrin IB 200 mg tablet 600 mg By Mouth Every 12 hours As Needed For Pain 600 mg 11/20 Inactiv e 2023 99846 56789 2 Every 12 hours By Mouth False Motrin IB 200 mg tablet 600 mg By Mouth Every 12 hours As Needed For Pain 600 mg 11/27 Active 2023 40304 86370 2 Every 12 hours By Mouth False Flomax 0.4 mg capsule 0.4 mg By Mouth Once daily For Urinary retention 0.4 mg 11/21 Inactiv e 2023 67760 67088 1 Once daily By Mouth False Scopolamine 1 mg over 3 days transdermal patch [generic] 1 Transdermal Every 72 hours For nausea 1 11/22 Inactiv e 2023 12015 59779 4 Every 72 hours Transd ermal False Butrans 7.5 mcg/hour transdermal patch 1 patch Transdermal Every 7 Days For Pain 1 patch 202300 0000 Active 2023 51400 32561 4 Every week Transd ermal False Tizanidine 2 mg tablet [generic] 2mg By Mouth At bedtime For Muscle spasms 2mg 202300 0000 Active 2023 89251 88306 0 At bedtime By Mouth False Prednisone 20 mg tablet [generic] 60 mg By Mouth 1 time For Sciatica Pain 60 mg 11/22 Inactiv e 2023 33165 59204 1 1 time By Mouth False Prednisone 20 mg tablet [generic] 40mg By Mouth 1 time For Sciatica Pain 40mg 11/23 Active 2023 53967 23836 1 1 time By Mouth False Prednisone 20 mg tablet [generic] 20mg By Mouth 1 time For Sciatica 20mg 11/24 Active 2023 49982 46576 1 1 time By Mouth False ACCU [...] order For Steroid Therapy 11/28 Active 2023 07861 57448 9 Twice daily Subcut aneous False Problems [...] Temperature SpO2 Blood Sugar Pulse Respirations 8 29200 5 75.00 mm[Hg] - Sitting 140.00 mm[Hg] - Sitting 65 NI 98.00 Tympanic 95.00 % 102.00 /min 18.00/min 918 11474 9 918 46399 2 75.00 mm[Hg] - Sitting 140.00 mm[Hg] - Sitting 98.00 Tympanic 102.00 /min 18.00/min 79410 918 39219 3 32709 918 09038 1 72.00 mm[Hg] - Sitting 138.00 mm[Hg] - Sitting 98.40 Tympanic 8 57865 4 88.00/ min 18.00/min 919 81657 4 71.00 mm[Hg] - Sitting 115.00 mm[Hg] - Sitting 98.30 Tympanic 97.00 % 86.00/ min 16.00/min 919 55493 0 71.00 mm[Hg] - Sitting 115.00 mm[Hg] - Sitting 98.30 Tympanic 86.00/ min 16.00/min 63626 919 93330 7 71.00 mm[Hg] - Sitting 115.00 mm[Hg] - Sitting 98.30 Tympanic 86.00/ min 16.00/min 73532 920 01511 6 72.00 mm[Hg] - Sitting 112.00 mm[Hg] - Sitting 98.10 Tympanic 82.00/ min 18.00/min 920 61129 0 75.00 mm[Hg] - Sitting 130.00 mm[Hg] - Sitting 98.40 Forehead Scan 93.00 % 88.00/ min 18.00/min 920 81715 2 75.00 mm[Hg] - Lying Down 130.00 mm[Hg] - Lying Down 98.40 Tympanic 88.00/ min 18.00/min 50332 920 90247 5 75.00 mm[Hg] - Lying Down 130.00 mm[Hg] - Lying Down 98.40 Tympanic 88.00/ min 18.00/min 920 74023 6 199.00 NI 920 87811 3 75.00 mm[Hg] - Sitting 130.00 mm[Hg] - Sitting 98.40 Tympanic 88.00/ min 18.00/min 22022 921 04335 1 71.00 mm[Hg] - Lying Down 119.00 mm[Hg] - Lying Down 98.40 Forehead Scan 96.00 % 83.00/ min 16.00/min 79933 922 56012 6 71.00 mm[Hg] - Lying Down 128.00 mm[Hg] - Lying Down 98.30 Forehead Scan 94.00 % 84.00/ min 18.00/min 78362 923 29868 4 63.00 mm[Hg] - Sitting 105.00 mm[Hg] - Sitting 98.20 Tympanic 93.00 % 93.00/ min 18.00/min 87240 924 63334 8 66.00 mm[Hg] - Sitting 104.00 mm[Hg] - Sitting 98.20 Tympanic 98.00 % 84.00/ min 16.00/min 03954 925 23663 2 131.00 mg/dL 67204 925 81717 6 138.00 mg/dL 35229 926 51395 1 199.00 NI 8[address]61 927 19063 7 98.40 Tympanic 75552 927 10020 0 78.00 mm[Hg] - Sitting 124.00 mm[Hg] - Sitting 98.30 Forehead Scan 95.00 % 83.00/ min 16.00/min 14208 927 11804 7 98.10 Tympanic 03719 928 11652 9 60.00 mm[Hg] - Sitting 99.00 mm[Hg] - Sitting 98.20 Tympanic 91.00 % 64.00/ min 16.00/min 18920 928 17758 0 98.40 Tympanic
--- OUTSIDE RECORDS SUMMARY | 2023-12-13 23:55 | External Medical Summary | Continuity Of Care Document ---
Author Name Unknown Address [address] [place] [address] Organization [facility] [place] () Care Team Providers Care Accounting Machine Operator Name Role Phone DO Parson Amy Primary Care Provider [phone] Allergies Allergy Reaction Start Date End Date [...] 3 0.1 mL 11/13 Inactiv e 2023 50498 34937 0 1 time Intrad ermal False Tubersol 5 tub. unit/0.1 mL intradermal injection solution [Tuberculin PPD] 0.1mL Intradermal 1 time For PPD 2nd Step Give 2nd Step PPD Day 1 and Read results Day 3 (schedule 7 days after 1st READ) 0.1mL 11/13 Inactiv e 2023 02855 38270 0 1 time Intrad ermal False DISCONTINUE as of 11/14/2023: Tubersol 5 tub. unit/0.1 mL intradermal injection solution [Tuberculin PPD] 11/13 Inactiv e 2023 90819 85029 0 Tubersol 5 tub. unit/0.1 mL intradermal injection solution 0.1 mL Intradermal 1 time For PPD Step 1 GIVE on Day 1 and read results Day 3 0.1 mL 11/16 Inactiv e 2023 87765 60502 1 1 time Intrad ermal False DISCONTINUE as of 11/14/2023: Tubersol 5 tub. unit/0.1 mL intradermal injection solution [Tuberculin PPD] 11/13 Inactiv e 2023 95371 21353 0 Tubersol 5 tub. unit/0.1 mL intradermal injection solution 0.1mL Intradermal 1 time For PPD 2nd Step Give 2nd Step PPD Day 1 and Read results Day 3 (schedule 7 days after 1st READ) 0.1mL 11/25 Active 2023 03261 92963 1 1 time Intrad ermal False Tylenol 325 mg tablet 2 tabs By Mouth Every 4 hours as needed For Pain DO NOT EXCEED 3000 MG APAP/24 Hours 2 tabs 202300 /0000 Active 2023 43949 38427 0 Every 4 hours as needed By Mouth False Tylenol 325 mg tablet 2 tabs By Mouth Every 4 hours as needed For Fever >100 DO NOT EXCEED 3000 MG APAP/24 Hours 2 tabs 202300 /0000 Active 2023 36597 26362 0 Every 4 hours as needed By Mouth False Dulcolax (bisacodyl) 10 mg rectal suppository One Suppository per rectum PRN if Milk of Magnisia ineffective. Give on day 5 of no BM 1 sup 2023 Active 2023 78500 47579 1 Daily as needed Rectal False Fleet Enema 19 gram-7 gram/118 mL Administer per rectum PRN one time if dulcolax suppository not effective. Give on day 6 of no BM 1 202300 0000 Active 2023 68768 79325 6 Daily as needed Rectal False Dextrose 50 % in water (D50W) intravenous solution [generic] Dextrose 50% reyes 20-50 ml (slow push) Intravenous if Glucagon not effective after 15 minutes. CALL 911 for ED Evaluation. 50% reyes 202300 /0000 Active 2023 41505 04834 9 Intrav enous False Glucagon (HCl) Emergency Kit 1 mg solution for injection Administer Glucagon 1 mg Intramuscular if 15 minutes after GLucose Gel is administered Glucose remains less than 70 1 mg 2023 Active 2023 91612 66405 2 Intram uscula r False Glucose Gel 40 % oral gel [Dextrose] PRN If resident is unable to swallow (with or without symptoms) and Glucose results less than 70 give GLucose 40% Gel 1 tube orally - Recheck Glucose 15 minutes after administratio n. 1 tube 2023 Active 2023 89188 77725 8 By Mouth False Lorazepam 0.5 mg tablet [generic] 0.5 mg By Mouth Every 8 hours as needed For Anxiety 0.5 mg 11/18 Inactiv e 2023 51255 10865 0 Every 8 hours as needed By Mouth False Potassium chloride ER 20 mEq tablet,exte nded release [generic] 40 meq By Mouth Once daily For Hypokalemia 40 meq 11/13 Inactiv e 2023 88519 06274 1 Once daily By Mouth False Colesevelam 625 mg tablet [generic] 1250 mg By Mouth Twice daily For TYPE 2 DIABETES MELLITUS WITHOUT COMPLICATIONS 1250 mg 11/19 Inactiv e 2023 10238 27735 1 Twice daily By Mouth E11.9 False Pioglitazon e 15 mg tablet [generic] 15 mg By Mouth Once daily For TYPE 2 DIABETES MELLITUS WITHOUT COMPLICATIONS 15 mg 11/14 Inactiv e 2023 99346 54046 1 Once daily By Mouth E11.9 False Cholecalcif hardeep (vitamin D3) 50 mcg (2,000 unit) tablet [generic] 50 mcg By Mouth Once daily For Supplement 50 mcg 2023 Active 2023 07525 38342 1 Once daily By Mouth False Colchicine 0.6 mg tablet [generic] 0.6 mg By Mouth Twice daily As Needed For Gout 0.6 mg 2023 Active 2023 28767 08791 4 Twice daily By Mouth False Levothyroxi ne 200 mcg tablet [generic] 200 mcg By Mouth Once daily For Hypothyroidis m 200 mcg 202300 0000 Active 2023 45314 61777 0 Once daily By Mouth False Ondansetron 4 mg disintegrat ing tablet [generic] 4 mg By Mouth Every 6 hours as needed For Nausea 4 mg 11/12 Inactiv e 2023 29447 38461 4 Every 6 hours as needed By Mouth False Docusate sodium 100 mg capsule [generic] 100 mg By Mouth Twice daily For Constipation 100 mg 202300 0000 Active 2023 28435 06398 1 Twice daily By Mouth False Oxycodone 5 mg tablet [generic] 5 mg By Mouth Every 6 hours as needed For Pain 5 mg 11/12 Inactiv e 2023 97059 42362 1 Every 6 hours as needed By Mouth False Oxycodone 5 mg tablet [generic] 5 mg By Mouth Every 6 hours as needed For Pain 5 mg 11/18 Inactiv e 2023 94989 57870 1 Every 6 hours as needed By Mouth False Milk of Magnesia 400 mg/5 mL oral suspension 30 ml By Mouth one time per day as needed if no BM x 3 days For Constipation 30 ml 202300 Active 2023 85530 18188 2 By Mouth False Ondansetron 4 mg disintegrat ing tablet [generic] 11/12 Inactiv e 2023 82381 26030 4 Ondansetron 4 mg disintegrat ing tablet [generic] 4 mg By Mouth Every 6 hours as needed For Nausea 4 mg 11/14 Inactiv e 2023 69778 77014 4 Every 6 hours as needed By Mouth False Potassium chloride ER 10 mEq capsule,ext ended release [generic] 40 mEq By Mouth Once daily For hypokalemia 40 mEq 11/17 Inactiv e 2023 26925 66055 1 Once daily By Mouth False Potassium chloride ER 10 mEq capsule,ext ended release [generic] 4 capsules By Mouth At bedtime For hypokalemia 4 capsule s 11/16 Inactiv e 2023 34704 29391 1 At bedtime By Mouth False Flomax 0.4 mg capsule 0.4 mg By Mouth At bedtime For Urinary retention 0.4 mg 11/18 Inactiv e 2023 07068 68151 1 At bedtime By Mouth False STOOL CULTURE Once daily Obtain stool culture, add C. Diff to routine stool culture For Rule out C. Diff 1x 2023 Active 2023 Once daily Other False Butrans 5 mcg/hour transdermal patch 1 patch Transdermal Every 7 Days For Pain 1 patch 11/20 Inactiv e 2023 50807 28882 4 Every week Transd ermal False Pantoprazol e 40 mg tablet,nu yed release [generic] 40 mg By Mouth Twice daily For gerd 40 mg 2023 Active 2023 06783 72683 0 Twice daily By Mouth False Scopolamine 1 mg over 3 days transdermal patch [generic] 1 Transdermal Every 72 hours For nausea 1 11/20 Inactiv e 2023 29920 20149 4 Every 72 hours Transd ermal False Ondansetron 4 mg disintegrat ing tablet [generic] 11/14 Inactiv e 2023 92965 17151 4 Ondansetron 4 mg disintegrat ing tablet [generic] 4 mg By Mouth Every 8 hours For Nausea 4 mg 2023 Active 2023 53540 65229 4 Every 8 hours By Mouth False Miralax 17 gram oral powder packet 8.5 g (1/2 capful) By Mouth Once daily For constipation 8.5 g 11/18 Inactiv e 2023 24613 38277 6 Once daily By Mouth False Pioglitazon e 15 mg tablet [generic] 11/14 Inactiv e 2023 78311 04654 1 E11.9 Pioglitazon e 15 mg tablet [generic] 7.5mg ( half a tab) By Mouth Once daily For TYPE 2 DIABETES MELLITUS WITHOUT COMPLICATIONS 7.5mg 2023 Active 2023 73471 09428 1 Once daily By Mouth E11.9 False Mylanta Coat-Cool 1,200 mg-270 mg-80 mg/10 mL oral suspension 10 ml By Mouth Every 8 hours As Needed For heartburn, indigestion, gas 10 ml 2023 Active 2023 69244 16902 1 Every 8 hours By Mouth False Prochlorper azine maleate 5 mg tablet [generic] 5 mg By Mouth Every 8 hours as needed For Nausea 5 mg 2023 Active 2023 43929 39130 1 Every 8 hours as needed By Mouth False Potassium chloride ER 10 mEq capsule,ext ended release [generic] 10 meq By Mouth 4 times a day For Hypokalemia 10 meq 11/20 Inactiv e 2023 25375 12447 1 4 times a day By Mouth False Lorazepam 0.5 mg tablet [generic] 11/18 Inactiv e 2023 67741 30238 0 Lorazepam 0.5 mg tablet [generic] 0.5 mg By Mouth Every 8 hours as needed For Anxiety 0.5 mg 12/18 Active 2023 31319 30453 0 Every 8 hours as needed By Mouth False Flomax 0.4 mg capsule 11/18 Inactiv e 2023 15875 07414 1 Flomax 0.4 mg capsule 0.4 mg By Mouth Once daily For Urinary retention 0.4 mg 11/19 Inactiv e 2023 77519 91649 1 Once daily By Mouth False Oxycodone 5 mg tablet [generic] 11/18 Inactiv e 2023 60605 08794 1 Oxycodone 5 mg tablet [generic] 5 mg By Mouth Every 6 hours as needed For Back Pain 5 mg 2023 Active 2023 46346 16626 1 Every 6 hours as needed By Mouth False Cipro 250 mg tablet 250 mg By Mouth Twice daily For UTI 250 mg 11/19 Inactiv e 2023 39576 94386 1 Twice daily By Mouth False Senna 8.6 mg tablet 17.2 mg By Mouth Twice daily For Constipation 17.2 mg 2023 Active 2023 96913 57152 1 Twice daily By Mouth False Zyprexa 2.5 mg tablet 2.5 mg By Mouth At bedtime For persistent nausea 2.5 mg 2023 Active 2023 54794 13904 0 At bedtime By Mouth False MAGNESSIUM GLUCONATE 500mg By Mouth Every morning For Supplement 500mg 2023 Active 2023 Every morning By Mouth False Cipro 250 mg tablet 11/19 Inactiv e 2023 71091 33688 1 Cipro 250 mg tablet 250 mg By Mouth Twice daily For UTI 250 mg 11/26 Active 2023 78607 91202 1 Twice daily By Mouth False Flomax 0.4 mg capsule 11/19 Inactiv e 2023 24410 59828 1 Flomax 0.4 mg capsule 0.4 mg By Mouth Once daily For Urinary retention 0.4 mg 11/20 Inactiv e 2023 24599 79979 1 Once daily By Mouth False Motrin IB 200 mg tablet 600 mg By Mouth Every 12 hours As Needed For Pain 600 mg 11/20 Inactiv e 2023 29433 07292 2 Every 12 hours By Mouth False Motrin IB 200 mg tablet 600 mg By Mouth Every 12 hours As Needed For Pain 600 mg 11/20 Inactiv e 2023 67030 95332 2 Every 12 hours By Mouth False Motrin IB 200 mg tablet 600 mg By Mouth Every 12 hours As Needed For Pain 600 mg 11/27 Active 2023 20879 28097 2 Every 12 hours By Mouth False Flomax 0.4 mg capsule 0.4 mg By Mouth Once daily For Urinary retention 0.4 mg 11/21 Inactiv e 2023 19854 92621 1 Once daily By Mouth False Scopolamine 1 mg over 3 days transdermal patch [generic] 1 Transdermal Every 72 hours For nausea 1 11/22 Inactiv e 2023 66914 76089 4 Every 72 hours Transd ermal False Butrans 7.5 mcg/hour transdermal patch 1 patch Transdermal Every 7 Days For Pain 1 patch 202300 0000 Active 2023 79348 51397 4 Every week Transd ermal False Tizanidine 2 mg tablet [generic] 2mg By Mouth At bedtime For Muscle spasms 2mg 202300 0000 Active 2023 22144 08825 0 At bedtime By Mouth False Prednisone 20 mg tablet [generic] 60 mg By Mouth 1 time For Sciatica Pain 60 mg 11/22 Inactiv e 2023 15635 62455 1 1 time By Mouth False Prednisone 20 mg tablet [generic] 40mg By Mouth 1 time For Sciatica Pain 40mg 11/23 Active 2023 92975 83112 1 1 time By Mouth False Prednisone 20 mg tablet [generic] 20mg By Mouth 1 time For Sciatica 20mg 11/24 Active 2023 43192 07324 1 1 time By Mouth False ACCU [...] order For Steroid Therapy 11/28 Active 2023 07368 59836 9 Twice daily Subcut aneous False Problems [...] Temperature SpO2 Blood Sugar Pulse Respirations 8 06987 5 75.00 mm[Hg] - Sitting 140.00 mm[Hg] - Sitting 65 NI 98.00 Tympanic 95.00 % 102.00 /min 18.00/min 918 85232 9 918 05964 2 75.00 mm[Hg] - Sitting 140.00 mm[Hg] - Sitting 98.00 Tympanic 102.00 /min 18.00/min 49590 918 15320 3 67974 918 04615 1 72.00 mm[Hg] - Sitting 138.00 mm[Hg] - Sitting 98.40 Tympanic 8 57692 4 88.00/ min 18.00/min 919 71044 4 71.00 mm[Hg] - Sitting 115.00 mm[Hg] - Sitting 98.30 Tympanic 97.00 % 86.00/ min 16.00/min 919 29326 0 71.00 mm[Hg] - Sitting 115.00 mm[Hg] - Sitting 98.30 Tympanic 86.00/ min 16.00/min 95783 919 38836 7 71.00 mm[Hg] - Sitting 115.00 mm[Hg] - Sitting 98.30 Tympanic 86.00/ min 16.00/min 81346 920 91116 6 72.00 mm[Hg] - Sitting 112.00 mm[Hg] - Sitting 98.10 Tympanic 82.00/ min 18.00/min 920 21377 0 75.00 mm[Hg] - Sitting 130.00 mm[Hg] - Sitting 98.40 Forehead Scan 93.00 % 88.00/ min 18.00/min 920 24262 2 75.00 mm[Hg] - Lying Down 130.00 mm[Hg] - Lying Down 98.40 Tympanic 88.00/ min 18.00/min 70218 920 51216 5 75.00 mm[Hg] - Lying Down 130.00 mm[Hg] - Lying Down 98.40 Tympanic 88.00/ min 18.00/min 920 18657 6 199.00 NI 920 84588 3 75.00 mm[Hg] - Sitting 130.00 mm[Hg] - Sitting 98.40 Tympanic 88.00/ min 18.00/min 52124 921 88628 1 71.00 mm[Hg] - Lying Down 119.00 mm[Hg] - Lying Down 98.40 Forehead Scan 96.00 % 83.00/ min 16.00/min 64173 922 57716 6 71.00 mm[Hg] - Lying Down 128.00 mm[Hg] - Lying Down 98.30 Forehead Scan 94.00 % 84.00/ min 18.00/min 98689 923 41022 4 63.00 mm[Hg] - Sitting 105.00 mm[Hg] - Sitting 98.20 Tympanic 93.00 % 93.00/ min 18.00/min 88394 924 02841 8 98.20 Tympanic 98.00 % 84.00/ min 16.00/min
--- OUTSIDE RECORDS SUMMARY | 2023-12-13 23:55 | External Medical Summary | Continuity Of Care Document ---
Author Name Unknown Address [address] [place] [address] Organization [facility]– [place][note 2] [place] () Care Team Providers Care Flight Engineer Helicopter Name Role Phone DO Parson Amy Primary Care Provider [phone] Allergies Allergy Reaction Start Date End Date [...] 3 0.1 mL 11/13 Inactiv e 2023 49599 15744 0 1 time Intrad ermal False Tubersol 5 tub. unit/0.1 mL intradermal injection solution [Tuberculin PPD] 0.1mL Intradermal 1 time For PPD 2nd Step Give 2nd Step PPD Day 1 and Read results Day 3 (schedule 7 days after 1st READ) 0.1mL 11/13 Inactiv e 2023 60130 92721 0 1 time Intrad ermal False DISCONTINUE as of 11/14/2023: Tubersol 5 tub. unit/0.1 mL intradermal injection solution [Tuberculin PPD] 11/13 Inactiv e 2023 81415 23737 0 Tubersol 5 tub. unit/0.1 mL intradermal injection solution 0.1 mL Intradermal 1 time For PPD Step 1 GIVE on Day 1 and read results Day 3 0.1 mL 11/16 Inactiv e 2023 29536 54812 1 1 time Intrad ermal False DISCONTINUE as of 11/14/2023: Tubersol 5 tub. unit/0.1 mL intradermal injection solution [Tuberculin PPD] 11/13 Inactiv e 2023 15060 22450 0 Tubersol 5 tub. unit/0.1 mL intradermal injection solution 0.1mL Intradermal 1 time For PPD 2nd Step Give 2nd Step PPD Day 1 and Read results Day 3 (schedule 7 days after 1st READ) 0.1mL 11/25 Active 2023 26032 00763 1 1 time Intrad ermal False Tylenol 325 mg tablet 2 tabs By Mouth Every 4 hours as needed For Pain DO NOT EXCEED 3000 MG APAP/24 Hours 2 tabs 202300 /0000 Active 2023 31683 15778 0 Every 4 hours as needed By Mouth False Tylenol 325 mg tablet 2 tabs By Mouth Every 4 hours as needed For Fever >100 DO NOT EXCEED 3000 MG APAP/24 Hours 2 tabs 202300 /0000 Active 2023 57948 05893 0 Every 4 hours as needed By Mouth False Dulcolax (bisacodyl) 10 mg rectal suppository One Suppository per rectum PRN if Milk of Magnisia ineffective. Give on day 5 of no BM 1 sup 2023 Active 2023 01542 44325 1 Daily as needed Rectal False Fleet Enema 19 gram-7 gram/118 mL Administer per rectum PRN one time if dulcolax suppository not effective. Give on day 6 of no BM 1 202300 0000 Active 2023 32190 11278 6 Daily as needed Rectal False Dextrose 50 % in water (D50W) intravenous solution [generic] Dextrose 50% reyes 20-50 ml (slow push) Intravenous if Glucagon not effective after 15 minutes. CALL 911 for ED Evaluation. 50% reyes 202300 /0000 Active 2023 47764 51138 9 Intrav enous False Glucagon (HCl) Emergency Kit 1 mg solution for injection Administer Glucagon 1 mg Intramuscular if 15 minutes after GLucose Gel is administered Glucose remains less than 70 1 mg 2023 Active 2023 47707 68899 2 Intram uscula r False Glucose Gel 40 % oral gel [Dextrose] PRN If resident is unable to swallow (with or without symptoms) and Glucose results less than 70 give GLucose 40% Gel 1 tube orally - Recheck Glucose 15 minutes after administratio n. 1 tube 2023 Active 2023 62053 68314 8 By Mouth False Lorazepam 0.5 mg tablet [generic] 0.5 mg By Mouth Every 8 hours as needed For Anxiety 0.5 mg 11/18 Inactiv e 2023 49483 59556 0 Every 8 hours as needed By Mouth False Potassium chloride ER 20 mEq tablet,exte nded release [generic] 40 meq By Mouth Once daily For Hypokalemia 40 meq 11/13 Inactiv e 2023 30073 45257 1 Once daily By Mouth False Colesevelam 625 mg tablet [generic] 1250 mg By Mouth Twice daily For TYPE 2 DIABETES MELLITUS WITHOUT COMPLICATIONS 1250 mg 11/19 Inactiv e 2023 82265 20423 1 Twice daily By Mouth E11.9 False Pioglitazon e 15 mg tablet [generic] 15 mg By Mouth Once daily For TYPE 2 DIABETES MELLITUS WITHOUT COMPLICATIONS 15 mg 11/14 Inactiv e 2023 22531 61952 1 Once daily By Mouth E11.9 False Cholecalcif hardeep (vitamin D3) 50 mcg (2,000 unit) tablet [generic] 50 mcg By Mouth Once daily For Supplement 50 mcg 2023 Active 2023 28391 71116 1 Once daily By Mouth False Colchicine 0.6 mg tablet [generic] 0.6 mg By Mouth Twice daily As Needed For Gout 0.6 mg 2023 Active 2023 48518 05418 4 Twice daily By Mouth False Levothyroxi ne 200 mcg tablet [generic] 200 mcg By Mouth Once daily For Hypothyroidis m 200 mcg 202300 0000 Active 2023 00990 82371 0 Once daily By Mouth False Ondansetron 4 mg disintegrat ing tablet [generic] 4 mg By Mouth Every 6 hours as needed For Nausea 4 mg 11/12 Inactiv e 2023 70382 25211 4 Every 6 hours as needed By Mouth False Docusate sodium 100 mg capsule [generic] 100 mg By Mouth Twice daily For Constipation 100 mg 202300 0000 Active 2023 75358 88089 1 Twice daily By Mouth False Oxycodone 5 mg tablet [generic] 5 mg By Mouth Every 6 hours as needed For Pain 5 mg 11/12 Inactiv e 2023 65533 28028 1 Every 6 hours as needed By Mouth False Oxycodone 5 mg tablet [generic] 5 mg By Mouth Every 6 hours as needed For Pain 5 mg 11/18 Inactiv e 2023 23410 58492 1 Every 6 hours as needed By Mouth False Milk of Magnesia 400 mg/5 mL oral suspension 30 ml By Mouth one time per day as needed if no BM x 3 days For Constipation 30 ml 202300 Active 2023 90010 22066 2 By Mouth False Ondansetron 4 mg disintegrat ing tablet [generic] 11/12 Inactiv e 2023 44258 23012 4 Ondansetron 4 mg disintegrat ing tablet [generic] 4 mg By Mouth Every 6 hours as needed For Nausea 4 mg 11/14 Inactiv e 2023 95656 22833 4 Every 6 hours as needed By Mouth False Potassium chloride ER 10 mEq capsule,ext ended release [generic] 40 mEq By Mouth Once daily For hypokalemia 40 mEq 11/17 Inactiv e 2023 85822 05580 1 Once daily By Mouth False Potassium chloride ER 10 mEq capsule,ext ended release [generic] 4 capsules By Mouth At bedtime For hypokalemia 4 capsule s 11/16 Inactiv e 2023 54974 77456 1 At bedtime By Mouth False Flomax 0.4 mg capsule 0.4 mg By Mouth At bedtime For Urinary retention 0.4 mg 11/18 Inactiv e 2023 42352 62120 1 At bedtime By Mouth False STOOL CULTURE Once daily Obtain stool culture, add C. Diff to routine stool culture For Rule out C. Diff 1x 2023 Active 2023 Once daily Other False Butrans 5 mcg/hour transdermal patch 1 patch Transdermal Every 7 Days For Pain 1 patch 11/20 Inactiv e 2023 84037 27004 4 Every week Transd ermal False Pantoprazol e 40 mg tablet,nu yed release [generic] 40 mg By Mouth Twice daily For gerd 40 mg 2023 Active 2023 79233 84206 0 Twice daily By Mouth False Scopolamine 1 mg over 3 days transdermal patch [generic] 1 Transdermal Every 72 hours For nausea 1 11/20 Inactiv e 2023 08285 64121 4 Every 72 hours Transd ermal False Ondansetron 4 mg disintegrat ing tablet [generic] 11/14 Inactiv e 2023 93767 73364 4 Ondansetron 4 mg disintegrat ing tablet [generic] 4 mg By Mouth Every 8 hours For Nausea 4 mg 2023 Active 2023 73667 82930 4 Every 8 hours By Mouth False Miralax 17 gram oral powder packet 8.5 g (1/2 capful) By Mouth Once daily For constipation 8.5 g 11/18 Inactiv e 2023 27754 88473 6 Once daily By Mouth False Pioglitazon e 15 mg tablet [generic] 11/14 Inactiv e 2023 44606 10123 1 E11.9 Pioglitazon e 15 mg tablet [generic] 7.5mg ( half a tab) By Mouth Once daily For TYPE 2 DIABETES MELLITUS WITHOUT COMPLICATIONS 7.5mg 2023 Active 2023 23214 80849 1 Once daily By Mouth E11.9 False Mylanta Coat-Cool 1,200 mg-270 mg-80 mg/10 mL oral suspension 10 ml By Mouth Every 8 hours As Needed For heartburn, indigestion, gas 10 ml 2023 Active 2023 79202 1 Every 8 hours By Mouth False Problems Code Description Start [...] weight Temperature SpO2 Blood Sugar Pulse Respirations 48275 5 75.00 mm[Hg] - Sitting 140.00 mm[Hg] - Sitting 65 NI 98.00 Tympanic 95.00 % 102.00 /min 18.00/min 918 59797 9 918 09170 2 75.00 mm[Hg] - Sitting 140.00 mm[Hg] - Sitting 98.00 Tympanic 102.00 /min 18.00/min 918 84507 3 918 32887 1 72.00 mm[Hg] - Sitting 138.00 mm[Hg] - Sitting 98.40 Tympanic 918 21125 4 88.00/ min 18.00/min 919 42934 4 71.00 mm[Hg] - Sitting 115.00 mm[Hg] - Sitting 98.30 Tympanic 97.00 % 86.00/ min 16.00/min 02814 919 85513 0 71.00 mm[Hg] - Sitting 115.00 mm[Hg] - Sitting 98.30 Tympanic 86.00/ min 16.00/min 39065 919 10150 7 71.00 mm[Hg] - Sitting 115.00 mm[Hg] - Sitting 98.30 Tympanic 86.00/ min 16.00/min 15487 920 79245 6 72.00 mm[Hg] - Sitting 112.00 mm[Hg] - Sitting 98.10 Tympanic 82.00/ min 18.00/min 69016 920 39751 0 75.00 mm[Hg] - Sitting 130.00 mm[Hg] - Sitting 98.40 Forehead Scan 93.00 % 88.00/ min 18.00/min 99611 920 98524 2 75.00 mm[Hg] - Lying Down 130.00 mm[Hg] - Lying Down 98.40 Tympanic 88.00/ min 18.00/min 05908 920 14448 5 75.00 mm[Hg] - Lying Down 130.00 mm[Hg] - Lying Down 98.40 Tympanic 88.00/ min 18.00/min 22087 920 25266 6 199.00 NI 54702 920 08970 3 75.00 mm[Hg] - Sitting 130.00 mm[Hg] - Sitting 98.40 Tympanic 88.00/ min 18.00/min 06684 921 15007 1 71.00 mm[Hg] - Lying Down 119.00 mm[Hg] - Lying Down 98.40 Forehead Scan 96.00 % 83.00/ min 16.00/min 65507 922 90248 6 71.00 mm[Hg] - Lying Down 128.00 mm[Hg] - Lying Down 98.30 Forehead Scan 94.00 % 84.00/ min 18.00/min 73672 923 86889 4 63.00 mm[Hg] - Sitting 105.00 mm[Hg] - Sitting 98.20 Tympanic 93.00 % 93.00/ min 18.00/min 27635 924 48432 8 66.00 mm[Hg] - Sitting 104.00 mm[Hg] - Sitting 98.20 Tympanic 98.00 % 84.00/ min 16.00/min 10733 925 02337 2 131.00 mg/dL 10611 925 61489 6 138.00 mg/dL 95585 926 56610 1 199.00 NI 43888 927 27895 7 98.40 Tympanic 00787 927 65631 0 78.00 mm[Hg] - Sitting 124.00 mm[Hg] - Sitting 98.30 Forehead Scan 95.00 % 83.00/ min 16.00/min 90347 927 53602 7 98.10 Tympanic
--- OUTSIDE RECORDS SUMMARY | 2023-12-13 23:55 | External Medical Summary | Continuity Of Care Document ---
Author Name Unknown Address [address] [place] [address] Organization [facility] () Care Team Providers Care Non Cdl Driver Name Role Phone DO Parson Amy Primary Care Provider [phone] Allergies Allergy Reaction Start Date End Date [...] 3 0.1 mL 11/13 Inactiv e 2023 04464 49225 0 1 time Intrad ermal False Tubersol 5 tub. unit/0.1 mL intradermal injection solution [Tuberculin PPD] 0.1mL Intradermal 1 time For PPD 2nd Step Give 2nd Step PPD Day 1 and Read results Day 3 (schedule 7 days after 1st READ) 0.1mL 11/13 Inactiv e 2023 18705 87553 0 1 time Intrad ermal False DISCONTINUE as of 11/14/2023: Tubersol 5 tub. unit/0.1 mL intradermal injection solution [Tuberculin PPD] 11/13 Inactiv e 2023 67794 88986 0 Tubersol 5 tub. unit/0.1 mL intradermal injection solution 0.1 mL Intradermal 1 time For PPD Step 1 GIVE on Day 1 and read results Day 3 0.1 mL 11/16 Inactiv e 2023 34760 50446 1 1 time Intrad ermal False DISCONTINUE as of 11/14/2023: Tubersol 5 tub. unit/0.1 mL intradermal injection solution [Tuberculin PPD] 11/13 Inactiv e 2023 04553 67396 0 Tubersol 5 tub. unit/0.1 mL intradermal injection solution 0.1mL Intradermal 1 time For PPD 2nd Step Give 2nd Step PPD Day 1 and Read results Day 3 (schedule 7 days after 1st READ) 0.1mL 11/25 Active 2023 10638 03422 1 1 time Intrad ermal False Tylenol 325 mg tablet 2 tabs By Mouth Every 4 hours as needed For Pain DO NOT EXCEED 3000 MG APAP/24 Hours 2 tabs 202300 /0000 Active 2023 18793 49732 0 Every 4 hours as needed By Mouth False Tylenol 325 mg tablet 2 tabs By Mouth Every 4 hours as needed For Fever >100 DO NOT EXCEED 3000 MG APAP/24 Hours 2 tabs 202300 /0000 Active 2023 02668 15874 0 Every 4 hours as needed By Mouth False Dulcolax (bisacodyl) 10 mg rectal suppository One Suppository per rectum PRN if Milk of Magnisia ineffective. Give on day 5 of no BM 1 sup 2023 Active 2023 08626 82438 1 Daily as needed Rectal False Fleet Enema 19 gram-7 gram/118 mL Administer per rectum PRN one time if dulcolax suppository not effective. Give on day 6 of no BM 1 202300 0000 Active 2023 71696 55792 6 Daily as needed Rectal False Dextrose 50 % in water (D50W) intravenous solution [generic] Dextrose 50% reyes 20-50 ml (slow push) Intravenous if Glucagon not effective after 15 minutes. CALL 911 for ED Evaluation. 50% reyes 202300 /0000 Active 2023 35081 40494 9 Intrav enous False Glucagon (HCl) Emergency Kit 1 mg solution for injection Administer Glucagon 1 mg Intramuscular if 15 minutes after GLucose Gel is administered Glucose remains less than 70 1 mg 2023 Active 2023 56850 27974 2 Intram uscula r False Glucose Gel 40 % oral gel [Dextrose] PRN If resident is unable to swallow (with or without symptoms) and Glucose results less than 70 give GLucose 40% Gel 1 tube orally - Recheck Glucose 15 minutes after administratio n. 1 tube 2023 Active 2023 61558 84276 8 By Mouth False Lorazepam 0.5 mg tablet [generic] 0.5 mg By Mouth Every 8 hours as needed For Anxiety 0.5 mg 11/18 Inactiv e 2023 92067 07438 0 Every 8 hours as needed By Mouth False Potassium chloride ER 20 mEq tablet,exte nded release [generic] 40 meq By Mouth Once daily For Hypokalemia 40 meq 11/13 Inactiv e 2023 59099 73214 1 Once daily By Mouth False Colesevelam 625 mg tablet [generic] 1250 mg By Mouth Twice daily For TYPE 2 DIABETES MELLITUS WITHOUT COMPLICATIONS 1250 mg 11/19 Inactiv e 2023 92329 88929 1 Twice daily By Mouth E11.9 False Pioglitazon e 15 mg tablet [generic] 15 mg By Mouth Once daily For TYPE 2 DIABETES MELLITUS WITHOUT COMPLICATIONS 15 mg 11/14 Inactiv e 2023 87211 62269 1 Once daily By Mouth E11.9 False Cholecalcif hardeep (vitamin D3) 50 mcg (2,000 unit) tablet [generic] 50 mcg By Mouth Once daily For Supplement 50 mcg 2023 Active 2023 44529 12466 1 Once daily By Mouth False Colchicine 0.6 mg tablet [generic] 0.6 mg By Mouth Twice daily As Needed For Gout 0.6 mg 2023 Active 2023 16662 45779 4 Twice daily By Mouth False Levothyroxi ne 200 mcg tablet [generic] 200 mcg By Mouth Once daily For Hypothyroidis m 200 mcg 202300 0000 Active 2023 68583 01559 0 Once daily By Mouth False Ondansetron 4 mg disintegrat ing tablet [generic] 4 mg By Mouth Every 6 hours as needed For Nausea 4 mg 11/12 Inactiv e 2023 93841 75327 4 Every 6 hours as needed By Mouth False Docusate sodium 100 mg capsule [generic] 100 mg By Mouth Twice daily For Constipation 100 mg 202300 0000 Active 2023 07464 71369 1 Twice daily By Mouth False Oxycodone 5 mg tablet [generic] 5 mg By Mouth Every 6 hours as needed For Pain 5 mg 11/12 Inactiv e 2023 59019 49900 1 Every 6 hours as needed By Mouth False Oxycodone 5 mg tablet [generic] 5 mg By Mouth Every 6 hours as needed For Pain 5 mg 11/18 Inactiv e 2023 42243 22870 1 Every 6 hours as needed By Mouth False Milk of Magnesia 400 mg/5 mL oral suspension 30 ml By Mouth one time per day as needed if no BM x 3 days For Constipation 30 ml 202300 Active 2023 85056 96927 2 By Mouth False Ondansetron 4 mg disintegrat ing tablet [generic] 11/12 Inactiv e 2023 89991 39642 4 Ondansetron 4 mg disintegrat ing tablet [generic] 4 mg By Mouth Every 6 hours as needed For Nausea 4 mg 11/14 Inactiv e 2023 20253 20008 4 Every 6 hours as needed By Mouth False Potassium chloride ER 10 mEq capsule,ext ended release [generic] 40 mEq By Mouth Once daily For hypokalemia 40 mEq 11/17 Inactiv e 2023 20473 93125 1 Once daily By Mouth False Potassium chloride ER 10 mEq capsule,ext ended release [generic] 4 capsules By Mouth At bedtime For hypokalemia 4 capsule s 11/16 Inactiv e 2023 37592 20534 1 At bedtime By Mouth False Flomax 0.4 mg capsule 0.4 mg By Mouth At bedtime For Urinary retention 0.4 mg 11/18 Inactiv e 2023 05371 13636 1 At bedtime By Mouth False STOOL CULTURE Once daily Obtain stool culture, add C. Diff to routine stool culture For Rule out C. Diff 1x 2023 Active 2023 Once daily Other False Butrans 5 mcg/hour transdermal patch 1 patch Transdermal Every 7 Days For Pain 1 patch 11/20 Inactiv e 2023 94645 02993 4 Every week Transd ermal False Pantoprazol e 40 mg tablet,nu yed release [generic] 40 mg By Mouth Twice daily For gerd 40 mg 2023 Active 2023 94995 97904 0 Twice daily By Mouth False Scopolamine 1 mg over 3 days transdermal patch [generic] 1 Transdermal Every 72 hours For nausea 1 11/20 Inactiv e 2023 04068 98948 4 Every 72 hours Transd ermal False Ondansetron 4 mg disintegrat ing tablet [generic] 11/14 Inactiv e 2023 92782 61660 4 Ondansetron 4 mg disintegrat ing tablet [generic] 4 mg By Mouth Every 8 hours For Nausea 4 mg 2023 Active 2023 26499 92477 4 Every 8 hours By Mouth False Miralax 17 gram oral powder packet 8.5 g (1/2 capful) By Mouth Once daily For constipation 8.5 g 11/18 Inactiv e 2023 28438 41986 6 Once daily By Mouth False Pioglitazon e 15 mg tablet [generic] 11/14 Inactiv e 2023 75230 73364 1 E11.9 Pioglitazon e 15 mg tablet [generic] 7.5mg ( half a tab) By Mouth Once daily For TYPE 2 DIABETES MELLITUS WITHOUT COMPLICATIONS 7.5mg 2023 Active 2023 87716 06522 1 Once daily By Mouth E11.9 False Mylanta Coat-Cool 1,200 mg-270 mg-80 mg/10 mL oral suspension 10 ml By Mouth Every 8 hours As Needed For heartburn, indigestion, gas 10 ml 2023 Active 2023 32432 68139 1 Every 8 hours By Mouth False Prochlorper azine maleate 5 mg tablet [generic] 5 mg By Mouth Every 8 hours as needed For Nausea 5 mg 2023 Active 2023 91405 70229 1 Every 8 hours as needed By Mouth False Potassium chloride ER 10 mEq capsule,ext ended release [generic] 10 meq By Mouth 4 times a day For Hypokalemia 10 meq 11/20 Inactiv e 2023 22678 04392 1 4 times a day By Mouth False Lorazepam 0.5 mg tablet [generic] 11/18 Inactiv e 2023 76742 32963 0 Lorazepam 0.5 mg tablet [generic] 0.5 mg By Mouth Every 8 hours as needed For Anxiety 0.5 mg 12/18 Active 2023 84912 29622 0 Every 8 hours as needed By Mouth False Flomax 0.4 mg capsule 11/18 Inactiv e 2023 68104 49548 1 Flomax 0.4 mg capsule 0.4 mg By Mouth Once daily For Urinary retention 0.4 mg 11/19 Inactiv e 2023 99691 59074 1 Once daily By Mouth False Oxycodone 5 mg tablet [generic] 11/18 Inactiv e 2023 21900 07654 1 Oxycodone 5 mg tablet [generic] 5 mg By Mouth Every 6 hours as needed For Back Pain 5 mg 2023 Active 2023 85294 31555 1 Every 6 hours as needed By Mouth False Cipro 250 mg tablet 250 mg By Mouth Twice daily For UTI 250 mg 11/19 Inactiv e 2023 64350 70380 1 Twice daily By Mouth False Senna 8.6 mg tablet 17.2 mg By Mouth Twice daily For Constipation 17.2 mg 2023 Active 2023 55878 03602 1 Twice daily By Mouth False Zyprexa 2.5 mg tablet 2.5 mg By Mouth At bedtime For persistent nausea 2.5 mg 2023 Active 2023 60460 65246 0 At bedtime By Mouth False MAGNESSIUM GLUCONATE 500mg By Mouth Every morning For Supplement 500mg 2023 Active 2023 Every morning By Mouth False Cipro 250 mg tablet 11/19 Inactiv e 2023 52362 97591 1 Cipro 250 mg tablet 250 mg By Mouth Twice daily For UTI 250 mg 11/26 Active 2023 21667 25869 1 Twice daily By Mouth False Flomax 0.4 mg capsule 11/19 Inactiv e 2023 05759 40026 1 Flomax 0.4 mg capsule 0.4 mg By Mouth Once daily For Urinary retention 0.4 mg 11/20 Inactiv e 2023 80940 61360 1 Once daily By Mouth False Motrin IB 200 mg tablet 600 mg By Mouth Every 12 hours As Needed For Pain 600 mg 11/20 Inactiv e 2023 00594 55539 2 Every 12 hours By Mouth False Motrin IB 200 mg tablet 600 mg By Mouth Every 12 hours As Needed For Pain 600 mg 11/20 Inactiv e 2023 45782 95322 2 Every 12 hours By Mouth False Motrin IB 200 mg tablet 600 mg By Mouth Every 12 hours As Needed For Pain 600 mg 11/27 Active 2023 88855 06280 2 Every 12 hours By Mouth False Flomax 0.4 mg capsule 0.4 mg By Mouth Once daily For Urinary retention 0.4 mg 2023 Active 2023 61920 37478 1 Once daily By Mouth False Scopolamine 1 mg over 3 days transdermal patch [generic] 1 Transdermal Every 72 hours For nausea 1 11/22 Active 2023 49639 65451 4 Every 72 hours Transd ermal False Butrans 7.5 mcg/hour transdermal patch 1 patch Transdermal Every 7 Days For Pain 1 patch 2023 Active 2023 45282 85216 4 Every week Transd ermal False Tizanidine 2 mg tablet [generic] 2mg By Mouth At bedtime For Muscle spasms 2mg 2023 Active 2023 84596 19157 0 At bedtime By Mouth False Prednisone 20 mg tablet [generic] 60 mg By Mouth 1 time For Sciatica Pain 60 mg 11/22 Active 2023 95159 22813 1 1 time By Mouth False Prednisone 20 mg tablet [generic] 40mg By Mouth 1 time For Sciatica Pain 40mg 11/23 Active 2023 96690 05403 1 1 time By Mouth False Prednisone 20 mg tablet [generic] 20mg By Mouth 1 time For Sciatica 20mg 11/24 Active 2023 45026 08573 1 1 time By Mouth False ACCU [...] order For Steroid Therapy 11/28 Active 2023 88530 58333 9 Twice daily Subcut aneous False Problems [...] Temperature SpO2 Blood Sugar Pulse Respirations 8 68570 5 75.00 mm[Hg] - Sitting 140.00 mm[Hg] - Sitting 65 NI 98.00 Tympanic 95.00 % 102.00 /min 18.00/min 02694 918 75970 9 72797 918 69644 2 75.00 mm[Hg] - Sitting 140.00 mm[Hg] - Sitting 98.00 Tympanic 102.00 /min 18.00/min 87980 918 88797 3 52469 918 42733 1 72.00 mm[Hg] - Sitting 138.00 mm[Hg] - Sitting 98.40 Tympanic 918 75409 4 88.00/ min 18.00/min 51834 919 26669 4 71.00 mm[Hg] - Sitting 115.00 mm[Hg] - Sitting 98.30 Tympanic 97.00 % 86.00/ min 16.00/min 84736 919 56942 0 71.00 mm[Hg] - Sitting 115.00 mm[Hg] - Sitting 98.30 Tympanic 86.00/ min 16.00/min 69332 919 80250 7 71.00 mm[Hg] - Sitting 115.00 mm[Hg] - Sitting 98.30 Tympanic 86.00/ min 16.00/min 26033 920 34525 6 72.00 mm[Hg] - Sitting 112.00 mm[Hg] - Sitting 98.10 Tympanic 82.00/ min 18.00/min 65925 920 64447 0 75.00 mm[Hg] - Sitting 130.00 mm[Hg] - Sitting 98.40 Forehead Scan 93.00 % 88.00/ min 18.00/min 36886 920 87018 2 75.00 mm[Hg] - Lying Down 130.00 mm[Hg] - Lying Down 98.40 Tympanic 88.00/ min 18.00/min 09305 920 32444 5 75.00 mm[Hg] - Lying Down 130.00 mm[Hg] - Lying Down 98.40 Tympanic 88.00/ min 18.00/min 79206 920 23633 6 199.00 NI 79837 920 07487 3 75.00 mm[Hg] - Sitting 130.00 mm[Hg] - Sitting 98.40 Tympanic 88.00/ min 18.00/min 94103 921 67629 1 71.00 mm[Hg] - Lying Down 119.00 mm[Hg] - Lying Down 98.40 Forehead Scan 96.00 % 83.00/ min 16.00/min 21369 922 12350 6 71.00 mm[Hg] - Lying Down 128.00 mm[Hg] - Lying Down 98.30 Forehead Scan 94.00 % 84.00/ min 18.00/min 28119 923 98317 4 63.00 mm[Hg] - Sitting 105.00 mm[Hg] - Sitting 98.20 Tympanic 93.00 % 93.00/ min 18.00/min 924 26562 8 66.00 mm[Hg] - Sitting 104.00 mm[Hg] - Sitting 98.20 Tympanic 98.00 % 84.00/ min 16.00/min 53007 925 68842 2 131.00 mg/dL 925 46430 6 138.00 mg/dL 926 73863 1 199.00 NI
--- OUTSIDE RECORDS SUMMARY | 2023-12-13 23:55 | External Medical Summary | Continuity Of Care Document ---
Author Name Unknown Address [address] [place] [address] Organization [facility] () Care Team Providers Care Furniture Designer Name Role Phone DO Parson Amy Primary Care Provider [phone] Allergies Allergy Reaction Start Date End Date [...] 3 0.1 mL 11/13 Inactiv e 2023 24809 54518 0 1 time Intrad ermal False Tubersol 5 tub. unit/0.1 mL intradermal injection solution [Tuberculin PPD] 0.1mL Intradermal 1 time For PPD 2nd Step Give 2nd Step PPD Day 1 and Read results Day 3 (schedule 7 days after 1st READ) 0.1mL 11/13 Inactiv e 2023 86578 21997 0 1 time Intrad ermal False DISCONTINUE as of 11/14/2023: Tubersol 5 tub. unit/0.1 mL intradermal injection solution [Tuberculin PPD] 11/13 Inactiv e 2023 54326 09074 0 Tubersol 5 tub. unit/0.1 mL intradermal injection solution 0.1 mL Intradermal 1 time For PPD Step 1 GIVE on Day 1 and read results Day 3 0.1 mL 11/16 Inactiv e 2023 47703 65047 1 1 time Intrad ermal False DISCONTINUE as of 11/14/2023: Tubersol 5 tub. unit/0.1 mL intradermal injection solution [Tuberculin PPD] 11/13 Inactiv e 2023 26155 85607 0 Tubersol 5 tub. unit/0.1 mL intradermal injection solution 0.1mL Intradermal 1 time For PPD 2nd Step Give 2nd Step PPD Day 1 and Read results Day 3 (schedule 7 days after 1st READ) 0.1mL 11/25 Active 2023 24037 13589 1 1 time Intrad ermal False Tylenol 325 mg tablet 2 tabs By Mouth Every 4 hours as needed For Pain DO NOT EXCEED 3000 MG APAP/24 Hours 2 tabs 202300 /0000 Active 2023 12018 73087 0 Every 4 hours as needed By Mouth False Tylenol 325 mg tablet 2 tabs By Mouth Every 4 hours as needed For Fever >100 DO NOT EXCEED 3000 MG APAP/24 Hours 2 tabs 202300 /0000 Active 2023 16576 05889 0 Every 4 hours as needed By Mouth False Dulcolax (bisacodyl) 10 mg rectal suppository One Suppository per rectum PRN if Milk of Magnisia ineffective. Give on day 5 of no BM 1 sup 2023 Active 2023 70408 17815 1 Daily as needed Rectal False Fleet Enema 19 gram-7 gram/118 mL Administer per rectum PRN one time if dulcolax suppository not effective. Give on day 6 of no BM 1 202300 0000 Active 2023 14919 26987 6 Daily as needed Rectal False Dextrose 50 % in water (D50W) intravenous solution [generic] Dextrose 50% reyes 20-50 ml (slow push) Intravenous if Glucagon not effective after 15 minutes. CALL 911 for ED Evaluation. 50% reyes 202300 /0000 Active 2023 59825 95164 9 Intrav enous False Glucagon (HCl) Emergency Kit 1 mg solution for injection Administer Glucagon 1 mg Intramuscular if 15 minutes after GLucose Gel is administered Glucose remains less than 70 1 mg 2023 Active 2023 24948 37467 2 Intram uscula r False Glucose Gel 40 % oral gel [Dextrose] PRN If resident is unable to swallow (with or without symptoms) and Glucose results less than 70 give GLucose 40% Gel 1 tube orally - Recheck Glucose 15 minutes after administratio n. 1 tube 2023 Active 2023 57478 05335 8 By Mouth False Lorazepam 0.5 mg tablet [generic] 0.5 mg By Mouth Every 8 hours as needed For Anxiety 0.5 mg 11/18 Inactiv e 2023 51601 28402 0 Every 8 hours as needed By Mouth False Potassium chloride ER 20 mEq tablet,exte nded release [generic] 40 meq By Mouth Once daily For Hypokalemia 40 meq 11/13 Inactiv e 2023 99682 26310 1 Once daily By Mouth False Colesevelam 625 mg tablet [generic] 1250 mg By Mouth Twice daily For TYPE 2 DIABETES MELLITUS WITHOUT COMPLICATIONS 1250 mg 11/19 Inactiv e 2023 13607 85386 1 Twice daily By Mouth E11.9 False Pioglitazon e 15 mg tablet [generic] 15 mg By Mouth Once daily For TYPE 2 DIABETES MELLITUS WITHOUT COMPLICATIONS 15 mg 11/14 Inactiv e 2023 92548 69765 1 Once daily By Mouth E11.9 False Cholecalcif hardeep (vitamin D3) 50 mcg (2,000 unit) tablet [generic] 50 mcg By Mouth Once daily For Supplement 50 mcg 2023 Active 2023 87134 91014 1 Once daily By Mouth False Colchicine 0.6 mg tablet [generic] 0.6 mg By Mouth Twice daily As Needed For Gout 0.6 mg 2023 Active 2023 64442 68836 4 Twice daily By Mouth False Levothyroxi ne 200 mcg tablet [generic] 200 mcg By Mouth Once daily For Hypothyroidis m 200 mcg 202300 0000 Active 2023 09933 31668 0 Once daily By Mouth False Ondansetron 4 mg disintegrat ing tablet [generic] 4 mg By Mouth Every 6 hours as needed For Nausea 4 mg 11/12 Inactiv e 2023 31272 81823 4 Every 6 hours as needed By Mouth False Docusate sodium 100 mg capsule [generic] 100 mg By Mouth Twice daily For Constipation 100 mg 202300 0000 Active 2023 81036 32717 1 Twice daily By Mouth False Oxycodone 5 mg tablet [generic] 5 mg By Mouth Every 6 hours as needed For Pain 5 mg 11/12 Inactiv e 2023 56495 88435 1 Every 6 hours as needed By Mouth False Oxycodone 5 mg tablet [generic] 5 mg By Mouth Every 6 hours as needed For Pain 5 mg 11/18 Inactiv e 2023 14318 50509 1 Every 6 hours as needed By Mouth False Milk of Magnesia 400 mg/5 mL oral suspension 30 ml By Mouth one time per day as needed if no BM x 3 days For Constipation 30 ml 202300 Active 2023 52633 10242 2 By Mouth False Ondansetron 4 mg disintegrat ing tablet [generic] 11/12 Inactiv e 2023 75678 40119 4 Ondansetron 4 mg disintegrat ing tablet [generic] 4 mg By Mouth Every 6 hours as needed For Nausea 4 mg 11/14 Inactiv e 2023 96854 19231 4 Every 6 hours as needed By Mouth False Potassium chloride ER 10 mEq capsule,ext ended release [generic] 40 mEq By Mouth Once daily For hypokalemia 40 mEq 11/17 Inactiv e 2023 43185 54653 1 Once daily By Mouth False Potassium chloride ER 10 mEq capsule,ext ended release [generic] 4 capsules By Mouth At bedtime For hypokalemia 4 capsule s 11/16 Inactiv e 2023 12815 54431 1 At bedtime By Mouth False Flomax 0.4 mg capsule 0.4 mg By Mouth At bedtime For Urinary retention 0.4 mg 11/18 Inactiv e 2023 55941 61824 1 At bedtime By Mouth False STOOL CULTURE Once daily Obtain stool culture, add C. Diff to routine stool culture For Rule out C. Diff 1x 2023 Active 2023 Once daily Other False Butrans 5 mcg/hour transdermal patch 1 patch Transdermal Every 7 Days For Pain 1 patch 11/20 Inactiv e 2023 21130 18292 4 Every week Transd ermal False Pantoprazol e 40 mg tablet,nu yed release [generic] 40 mg By Mouth Twice daily For gerd 40 mg 2023 Active 2023 74054 65257 0 Twice daily By Mouth False Scopolamine 1 mg over 3 days transdermal patch [generic] 1 Transdermal Every 72 hours For nausea 1 11/20 Inactiv e 2023 74504 02158 4 Every 72 hours Transd ermal False Ondansetron 4 mg disintegrat ing tablet [generic] 11/14 Inactiv e 2023 12737 17236 4 Ondansetron 4 mg disintegrat ing tablet [generic] 4 mg By Mouth Every 8 hours For Nausea 4 mg 2023 Active 2023 06496 24883 4 Every 8 hours By Mouth False Miralax 17 gram oral powder packet 8.5 g (1/2 capful) By Mouth Once daily For constipation 8.5 g 11/18 Inactiv e 2023 73385 06784 6 Once daily By Mouth False Pioglitazon e 15 mg tablet [generic] 11/14 Inactiv e 2023 71945 35314 1 E11.9 Pioglitazon e 15 mg tablet [generic] 7.5mg ( half a tab) By Mouth Once daily For TYPE 2 DIABETES MELLITUS WITHOUT COMPLICATIONS 7.5mg 2023 Active 2023 04725 80855 1 Once daily By Mouth E11.9 False Mylanta Coat-Cool 1,200 mg-270 mg-80 mg/10 mL oral suspension 10 ml By Mouth Every 8 hours As Needed For heartburn, indigestion, gas 10 ml 2023 Active 2023 82651 57852 1 Every 8 hours By Mouth False Prochlorper azine maleate 5 mg tablet [generic] 5 mg By Mouth Every 8 hours as needed For Nausea 5 mg 2023 Active 2023 24248 38842 1 Every 8 hours as needed By Mouth False Potassium chloride ER 10 mEq capsule,ext ended release [generic] 10 meq By Mouth 4 times a day For Hypokalemia 10 meq 11/20 Inactiv e 2023 76628 24811 1 4 times a day By Mouth False Lorazepam 0.5 mg tablet [generic] 11/18 Inactiv e 2023 71048 59974 0 Lorazepam 0.5 mg tablet [generic] 0.5 mg By Mouth Every 8 hours as needed For Anxiety 0.5 mg 12/18 Active 2023 03507 39056 0 Every 8 hours as needed By Mouth False Flomax 0.4 mg capsule 11/18 Inactiv e 2023 53055 80081 1 Flomax 0.4 mg capsule 0.4 mg By Mouth Once daily For Urinary retention 0.4 mg 11/19 Inactiv e 2023 86226 31430 1 Once daily By Mouth False Oxycodone 5 mg tablet [generic] 11/18 Inactiv e 2023 83163 07634 1 Oxycodone 5 mg tablet [generic] 5 mg By Mouth Every 6 hours as needed For Back Pain 5 mg 2023 Active 2023 47005 22458 1 Every 6 hours as needed By Mouth False Cipro 250 mg tablet 250 mg By Mouth Twice daily For UTI 250 mg 11/19 Inactiv e 2023 73708 70607 1 Twice daily By Mouth False Senna 8.6 mg tablet 17.2 mg By Mouth Twice daily For Constipation 17.2 mg 2023 Active 2023 69303 57661 1 Twice daily By Mouth False Zyprexa 2.5 mg tablet 2.5 mg By Mouth At bedtime For persistent nausea 2.5 mg 2023 Active 2023 97576 20855 0 At bedtime By Mouth False MAGNESSIUM GLUCONATE 500mg By Mouth Every morning For Supplement 500mg 2023 Active 2023 Every morning By Mouth False Cipro 250 mg tablet 11/19 Inactiv e 2023 82723 98306 1 Cipro 250 mg tablet 250 mg By Mouth Twice daily For UTI 250 mg 11/26 Active 2023 61834 67670 1 Twice daily By Mouth False Flomax 0.4 mg capsule 11/19 Inactiv e 2023 37929 19988 1 Flomax 0.4 mg capsule 0.4 mg By Mouth Once daily For Urinary retention 0.4 mg 11/20 Inactiv e 2023 30988 77145 1 Once daily By Mouth False Motrin IB 200 mg tablet 600 mg By Mouth Every 12 hours As Needed For Pain 600 mg 11/20 Inactiv e 2023 99234 06864 2 Every 12 hours By Mouth False Motrin IB 200 mg tablet 600 mg By Mouth Every 12 hours As Needed For Pain 600 mg 11/20 Inactiv e 2023 94772 90513 2 Every 12 hours By Mouth False Motrin IB 200 mg tablet 600 mg By Mouth Every 12 hours As Needed For Pain 600 mg 11/27 Active 2023 45250 76746 2 Every 12 hours By Mouth False Flomax 0.4 mg capsule 0.4 mg By Mouth Once daily For Urinary retention 0.4 mg 11/21 Inactiv e 2023 38320 87766 1 Once daily By Mouth False Scopolamine 1 mg over 3 days transdermal patch [generic] 1 Transdermal Every 72 hours For nausea 1 11/22 Inactiv e 2023 16558 83663 4 Every 72 hours Transd ermal False Butrans 7.5 mcg/hour transdermal patch 1 patch Transdermal Every 7 Days For Pain 1 patch 202300 0000 Active 2023 66874 03993 4 Every week Transd ermal False Tizanidine 2 mg tablet [generic] 2mg By Mouth At bedtime For Muscle spasms 2mg 202300 0000 Active 2023 79390 54508 0 At bedtime By Mouth False Prednisone 20 mg tablet [generic] 60 mg By Mouth 1 time For Sciatica Pain 60 mg 11/22 Inactiv e 2023 82730 74069 1 1 time By Mouth False Prednisone 20 mg tablet [generic] 40mg By Mouth 1 time For Sciatica Pain 40mg 11/23 Active 2023 99761 98236 1 1 time By Mouth False Prednisone 20 mg tablet [generic] 20mg By Mouth 1 time For Sciatica 20mg 11/24 Active 2023 56995 02338 1 1 time By Mouth False ACCU [...] order For Steroid Therapy 11/28 Active 2023 84546 93528 9 Twice daily Subcut aneous False Problems [...] Temperature SpO2 Blood Sugar Pulse Respirations 8 37163 5 75.00 mm[Hg] - Sitting 140.00 mm[Hg] - Sitting 65 NI 98.00 Tympanic 95.00 % 102.00 /min 18.00/min 918 30386 9 918 51191 2 75.00 mm[Hg] - Sitting 140.00 mm[Hg] - Sitting 98.00 Tympanic 102.00 /min 18.00/min 08431 918 34116 3 87859 918 22547 1 72.00 mm[Hg] - Sitting 138.00 mm[Hg] - Sitting 98.40 Tympanic 8 64850 4 88.00/ min 18.00/min 919 99888 4 71.00 mm[Hg] - Sitting 115.00 mm[Hg] - Sitting 98.30 Tympanic 97.00 % 86.00/ min 16.00/min 919 21599 0 71.00 mm[Hg] - Sitting 115.00 mm[Hg] - Sitting 98.30 Tympanic 86.00/ min 16.00/min 20368 919 93747 7 71.00 mm[Hg] - Sitting 115.00 mm[Hg] - Sitting 98.30 Tympanic 86.00/ min 16.00/min 27573 920 02233 6 72.00 mm[Hg] - Sitting 112.00 mm[Hg] - Sitting 98.10 Tympanic 82.00/ min 18.00/min 920 10967 0 75.00 mm[Hg] - Sitting 130.00 mm[Hg] - Sitting 98.40 Forehead Scan 93.00 % 88.00/ min 18.00/min 920 34786 2 75.00 mm[Hg] - Lying Down 130.00 mm[Hg] - Lying Down 98.40 Tympanic 88.00/ min 18.00/min 81349 920 87177 5 75.00 mm[Hg] - Lying Down 130.00 mm[Hg] - Lying Down 98.40 Tympanic 88.00/ min 18.00/min 920 60095 6 199.00 NI 920 05501 3 75.00 mm[Hg] - Sitting 130.00 mm[Hg] - Sitting 98.40 Tympanic 88.00/ min 18.00/min 09991 921 93809 1 71.00 mm[Hg] - Lying Down 119.00 mm[Hg] - Lying Down 98.40 Forehead Scan 96.00 % 83.00/ min 16.00/min 03795 922 42294 6 71.00 mm[Hg] - Lying Down 128.00 mm[Hg] - Lying Down 98.30 Forehead Scan 94.00 % 84.00/ min 18.00/min 63699 923 48475 4 63.00 mm[Hg] - Sitting 105.00 mm[Hg] - Sitting 98.20 Tympanic 93.00 % 93.00/ min 18.00/min 02907 924 29355 8 66.00 mm[Hg] - Sitting 104.00 mm[Hg] - Sitting 98.20 Tympanic 98.00 % 84.00/ min 16.00/min 41367 925 04621 2 131.00 mg/dL 79525 925 51457 6 138.00 mg/dL 36444 926 05821 1 199.00 NI 78387 927 89787 7 98.40 Tympanic 23017 927 84348 0 78.00 mm[Hg] - Sitting 124.00 mm[Hg] - Sitting 98.30 Forehead Scan 95.00 % 83.00/ min 16.00/min 82708 927 81712 7 98.10 Tympanic 92019 928 53622 9 60.00 mm[Hg] - Sitting 99.00 mm[Hg] - Sitting 98.20 Tympanic 91.00 % 64.00/ min 16.00/min 60103 928 27773 0 98.40 Tympanic
--- OUTSIDE RECORDS SUMMARY | 2023-12-13 23:55 | External Medical Summary | Continuity Of Care Document ---
Author Name Unknown Address [address] [place] [address] Organization [facility] () Care Team Providers Care Case Aide Name Role Phone DO Parson Amy Primary Care Provider [phone] Allergies Allergy Reaction Start Date End Date [...] 3 0.1 mL 11/13 Inactiv e 2023 83621 14282 0 1 time Intrad ermal False Tubersol 5 tub. unit/0.1 mL intradermal injection solution [Tuberculin PPD] 0.1mL Intradermal 1 time For PPD 2nd Step Give 2nd Step PPD Day 1 and Read results Day 3 (schedule 7 days after 1st READ) 0.1mL 11/13 Inactiv e 2023 89105 15096 0 1 time Intrad ermal False DISCONTINUE as of 11/14/2023: Tubersol 5 tub. unit/0.1 mL intradermal injection solution [Tuberculin PPD] 11/13 Inactiv e 2023 82205 82876 0 Tubersol 5 tub. unit/0.1 mL intradermal injection solution 0.1 mL Intradermal 1 time For PPD Step 1 GIVE on Day 1 and read results Day 3 0.1 mL 11/16 Inactiv e 2023 07830 39946 1 1 time Intrad ermal False DISCONTINUE as of 11/14/2023: Tubersol 5 tub. unit/0.1 mL intradermal injection solution [Tuberculin PPD] 11/13 Inactiv e 2023 49249 36181 0 Tubersol 5 tub. unit/0.1 mL intradermal injection solution 0.1mL Intradermal 1 time For PPD 2nd Step Give 2nd Step PPD Day 1 and Read results Day 3 (schedule 7 days after 1st READ) 0.1mL 11/25 Active 2023 24858 85237 1 1 time Intrad ermal False Tylenol 325 mg tablet 2 tabs By Mouth Every 4 hours as needed For Pain DO NOT EXCEED 3000 MG APAP/24 Hours 2 tabs 202300 /0000 Active 2023 95027 02587 0 Every 4 hours as needed By Mouth False Tylenol 325 mg tablet 2 tabs By Mouth Every 4 hours as needed For Fever >100 DO NOT EXCEED 3000 MG APAP/24 Hours 2 tabs 202300 /0000 Active 2023 33323 05593 0 Every 4 hours as needed By Mouth False Dulcolax (bisacodyl) 10 mg rectal suppository One Suppository per rectum PRN if Milk of Magnisia ineffective. Give on day 5 of no BM 1 sup 2023 Active 2023 82123 71437 1 Daily as needed Rectal False Fleet Enema 19 gram-7 gram/118 mL Administer per rectum PRN one time if dulcolax suppository not effective. Give on day 6 of no BM 1 202300 0000 Active 2023 51327 35323 6 Daily as needed Rectal False Dextrose 50 % in water (D50W) intravenous solution [generic] Dextrose 50% reyes 20-50 ml (slow push) Intravenous if Glucagon not effective after 15 minutes. CALL 911 for ED Evaluation. 50% reyes 202300 /0000 Active 2023 60040 98812 9 Intrav enous False Glucagon (HCl) Emergency Kit 1 mg solution for injection Administer Glucagon 1 mg Intramuscular if 15 minutes after GLucose Gel is administered Glucose remains less than 70 1 mg 2023 Active 2023 18534 48006 2 Intram uscula r False Glucose Gel 40 % oral gel [Dextrose] PRN If resident is unable to swallow (with or without symptoms) and Glucose results less than 70 give GLucose 40% Gel 1 tube orally - Recheck Glucose 15 minutes after administratio n. 1 tube 2023 Active 2023 78198 97221 8 By Mouth False Lorazepam 0.5 mg tablet [generic] 0.5 mg By Mouth Every 8 hours as needed For Anxiety 0.5 mg 11/18 Inactiv e 2023 67098 71582 0 Every 8 hours as needed By Mouth False Potassium chloride ER 20 mEq tablet,exte nded release [generic] 40 meq By Mouth Once daily For Hypokalemia 40 meq 11/13 Inactiv e 2023 54889 23399 1 Once daily By Mouth False Colesevelam 625 mg tablet [generic] 1250 mg By Mouth Twice daily For TYPE 2 DIABETES MELLITUS WITHOUT COMPLICATIONS 1250 mg 11/19 Inactiv e 2023 37423 83303 1 Twice daily By Mouth E11.9 False Pioglitazon e 15 mg tablet [generic] 15 mg By Mouth Once daily For TYPE 2 DIABETES MELLITUS WITHOUT COMPLICATIONS 15 mg 11/14 Inactiv e 2023 16418 88255 1 Once daily By Mouth E11.9 False Cholecalcif hardeep (vitamin D3) 50 mcg (2,000 unit) tablet [generic] 50 mcg By Mouth Once daily For Supplement 50 mcg 2023 Active 2023 51409 35441 1 Once daily By Mouth False Colchicine 0.6 mg tablet [generic] 0.6 mg By Mouth Twice daily As Needed For Gout 0.6 mg 2023 Active 2023 45962 21883 4 Twice daily By Mouth False Levothyroxi ne 200 mcg tablet [generic] 200 mcg By Mouth Once daily For Hypothyroidis m 200 mcg 202300 0000 Active 2023 87498 83853 0 Once daily By Mouth False Ondansetron 4 mg disintegrat ing tablet [generic] 4 mg By Mouth Every 6 hours as needed For Nausea 4 mg 11/12 Inactiv e 2023 50986 30783 4 Every 6 hours as needed By Mouth False Docusate sodium 100 mg capsule [generic] 100 mg By Mouth Twice daily For Constipation 100 mg 202300 0000 Active 2023 75877 24605 1 Twice daily By Mouth False Oxycodone 5 mg tablet [generic] 5 mg By Mouth Every 6 hours as needed For Pain 5 mg 11/12 Inactiv e 2023 26275 96647 1 Every 6 hours as needed By Mouth False Oxycodone 5 mg tablet [generic] 5 mg By Mouth Every 6 hours as needed For Pain 5 mg 11/18 Inactiv e 2023 68678 65420 1 Every 6 hours as needed By Mouth False Milk of Magnesia 400 mg/5 mL oral suspension 30 ml By Mouth one time per day as needed if no BM x 3 days For Constipation 30 ml 202300 Active 2023 85560 23052 2 By Mouth False Ondansetron 4 mg disintegrat ing tablet [generic] 11/12 Inactiv e 2023 67089 14201 4 Ondansetron 4 mg disintegrat ing tablet [generic] 4 mg By Mouth Every 6 hours as needed For Nausea 4 mg 11/14 Inactiv e 2023 49068 48658 4 Every 6 hours as needed By Mouth False Potassium chloride ER 10 mEq capsule,ext ended release [generic] 40 mEq By Mouth Once daily For hypokalemia 40 mEq 11/17 Inactiv e 2023 95001 43761 1 Once daily By Mouth False Potassium chloride ER 10 mEq capsule,ext ended release [generic] 4 capsules By Mouth At bedtime For hypokalemia 4 capsule s 11/16 Inactiv e 2023 30889 61786 1 At bedtime By Mouth False Flomax 0.4 mg capsule 0.4 mg By Mouth At bedtime For Urinary retention 0.4 mg 11/18 Inactiv e 2023 76010 05093 1 At bedtime By Mouth False STOOL CULTURE Once daily Obtain stool culture, add C. Diff to routine stool culture For Rule out C. Diff 1x 2023 Active 2023 Once daily Other False Butrans 5 mcg/hour transdermal patch 1 patch Transdermal Every 7 Days For Pain 1 patch 11/20 Inactiv e 2023 64346 28604 4 Every week Transd ermal False Pantoprazol e 40 mg tablet,nu yed release [generic] 40 mg By Mouth Twice daily For gerd 40 mg 2023 Active 2023 88584 04540 0 Twice daily By Mouth False Scopolamine 1 mg over 3 days transdermal patch [generic] 1 Transdermal Every 72 hours For nausea 1 11/20 Inactiv e 2023 48614 68521 4 Every 72 hours Transd ermal False Ondansetron 4 mg disintegrat ing tablet [generic] 11/14 Inactiv e 2023 40067 17127 4 Ondansetron 4 mg disintegrat ing tablet [generic] 4 mg By Mouth Every 8 hours For Nausea 4 mg 2023 Active 2023 03734 05404 4 Every 8 hours By Mouth False Miralax 17 gram oral powder packet 8.5 g (1/2 capful) By Mouth Once daily For constipation 8.5 g 11/18 Inactiv e 2023 60345 50757 6 Once daily By Mouth False Pioglitazon e 15 mg tablet [generic] 11/14 Inactiv e 2023 81963 83046 1 E11.9 Pioglitazon e 15 mg tablet [generic] 7.5mg ( half a tab) By Mouth Once daily For TYPE 2 DIABETES MELLITUS WITHOUT COMPLICATIONS 7.5mg 2023 Active 2023 46276 39716 1 Once daily By Mouth E11.9 False Mylanta Coat-Cool 1,200 mg-270 mg-80 mg/10 mL oral suspension 10 ml By Mouth Every 8 hours As Needed For heartburn, indigestion, gas 10 ml 2023 Active 2023 65865 17333 1 Every 8 hours By Mouth False Prochlorper azine maleate 5 mg tablet [generic] 5 mg By Mouth Every 8 hours as needed For Nausea 5 mg 2023 Active 2023 25884 51360 1 Every 8 hours as needed By Mouth False Potassium chloride ER 10 mEq capsule,ext ended release [generic] 10 meq By Mouth 4 times a day For Hypokalemia 10 meq 11/20 Inactiv e 2023 22374 10767 1 4 times a day By Mouth False Lorazepam 0.5 mg tablet [generic] 11/18 Inactiv e 2023 86657 06973 0 Lorazepam 0.5 mg tablet [generic] 0.5 mg By Mouth Every 8 hours as needed For Anxiety 0.5 mg 12/18 Active 2023 04203 23287 0 Every 8 hours as needed By Mouth False Flomax 0.4 mg capsule 11/18 Inactiv e 2023 16952 84829 1 Flomax 0.4 mg capsule 0.4 mg By Mouth Once daily For Urinary retention 0.4 mg 11/19 Inactiv e 2023 37508 41626 1 Once daily By Mouth False Oxycodone 5 mg tablet [generic] 11/18 Inactiv e 2023 49558 88413 1 Oxycodone 5 mg tablet [generic] 5 mg By Mouth Every 6 hours as needed For Back Pain 5 mg 2023 Active 2023 60377 80391 1 Every 6 hours as needed By Mouth False Cipro 250 mg tablet 250 mg By Mouth Twice daily For UTI 250 mg 11/19 Inactiv e 2023 31170 74407 1 Twice daily By Mouth False Senna 8.6 mg tablet 17.2 mg By Mouth Twice daily For Constipation 17.2 mg 2023 Active 2023 88550 06022 1 Twice daily By Mouth False Zyprexa 2.5 mg tablet 2.5 mg By Mouth At bedtime For persistent nausea 2.5 mg 2023 Active 2023 36319 12843 0 At bedtime By Mouth False MAGNESSIUM GLUCONATE 500mg By Mouth Every morning For Supplement 500mg 2023 Active 2023 Every morning By Mouth False Cipro 250 mg tablet 11/19 Inactiv e 2023 98058 50463 1 Cipro 250 mg tablet 250 mg By Mouth Twice daily For UTI 250 mg 11/26 Active 2023 83116 05835 1 Twice daily By Mouth False Flomax 0.4 mg capsule 11/19 Inactiv e 2023 32853 56960 1 Flomax 0.4 mg capsule 0.4 mg By Mouth Once daily For Urinary retention 0.4 mg 11/20 Inactiv e 2023 32151 34312 1 Once daily By Mouth False Motrin IB 200 mg tablet 600 mg By Mouth Every 12 hours As Needed For Pain 600 mg 11/20 Inactiv e 2023 23031 07992 2 Every 12 hours By Mouth False Motrin IB 200 mg tablet 600 mg By Mouth Every 12 hours As Needed For Pain 600 mg 11/20 Inactiv e 2023 52357 60814 2 Every 12 hours By Mouth False Motrin IB 200 mg tablet 600 mg By Mouth Every 12 hours As Needed For Pain 600 mg 11/27 Active 2023 34214 21215 2 Every 12 hours By Mouth False Flomax 0.4 mg capsule 0.4 mg By Mouth Once daily For Urinary retention 0.4 mg 2023 Active 2023 41349 88268 1 Once daily By Mouth False Scopolamine 1 mg over 3 days transdermal patch [generic] 1 Transdermal Every 72 hours For nausea 1 11/22 Active 2023 69599 05557 4 Every 72 hours Transd ermal False Butrans 7.5 mcg/hour transdermal patch 1 patch Transdermal Every 7 Days For Pain 1 patch 2023 Active 2023 71225 51285 4 Every week Transd ermal False Tizanidine 2 mg tablet [generic] 2mg By Mouth At bedtime For Muscle spasms 2mg 2023 Active 2023 36388 44417 0 At bedtime By Mouth False Prednisone 20 mg tablet [generic] 60 mg By Mouth 1 time For Sciatica Pain 60 mg 11/22 Active 2023 76827 21107 1 1 time By Mouth False Prednisone 20 mg tablet [generic] 40mg By Mouth 1 time For Sciatica Pain 40mg 11/23 Active 2023 96747 28925 1 1 time By Mouth False Problems Code Description Start [...] ve R33.9 Retention of urine, unspecified 11/18/2023 Active R11.0 Nausea 11/18/2023 Active Z98.890 Other specified postprocedural states Active E87.6 Hypokalemia 11/18/2023 Active R13.10 Dysphagia, unspecified 11/18/2023 Ac tive VITAL SIGNS Date Time Diastolic blood pressure Systolic blood pressure Body height Body weight Temperature SpO2 Blood Sugar Pulse Respirations 8 56825 5 75.00 mm[Hg] - Sitting 140.00 mm[Hg] - Sitting 65 NI 98.00 Tympanic 95.00 % 102.00 /min 18.00/min 8 81681 9 918 49156 2 75.00 mm[Hg] - Sitting 140.00 mm[Hg] - Sitting 98.00 Tympanic 102.00 /min 18.00/min 19297 918 43631 3 74067 918 61639 1 72.00 mm[Hg] - Sitting 138.00 mm[Hg] - Sitting 98.40 Tympanic 78672 918 47727 4 88.00/ min 18.00/min 70692 919 19824 4 71.00 mm[Hg] - Sitting 115.00 mm[Hg] - Sitting 98.30 Tympanic 97.00 % 86.00/ min 16.00/min 95285 919 17991 0 71.00 mm[Hg] - Sitting 115.00 mm[Hg] - Sitting 98.30 Tympanic 86.00/ min 16.00/min 05069 919 84534 7 71.00 mm[Hg] - Sitting 115.00 mm[Hg] - Sitting 98.30 Tympanic 86.00/ min 16.00/min 14043 920 46845 6 72.00 mm[Hg] - Sitting 112.00 mm[Hg] - Sitting 98.10 Tympanic 82.00/ min 18.00/min 39453 920 32911 0 75.00 mm[Hg] - Sitting 130.00 mm[Hg] - Sitting 98.40 Forehead Scan 93.00 % 88.00/ min 18.00/min 03295 920 02727 2 75.00 mm[Hg] - Lying Down 130.00 mm[Hg] - Lying Down 98.40 Tympanic 88.00/ min 18.00/min 60711 920 09196 5 75.00 mm[Hg] - Lying Down 130.00 mm[Hg] - Lying Down 98.40 Tympanic 88.00/ min 18.00/min 56305 920 02318 6 199.00 NI 87528 920 81491 3 75.00 mm[Hg] - Sitting 130.00 mm[Hg] - Sitting 98.40 Tympanic 88.00/ min 18.00/min 26485 921 00297 1 71.00 mm[Hg] - Lying Down 119.00 mm[Hg] - Lying Down 98.40 Forehead Scan 96.00 % 83.00/ min 16.00/min 28436 922 16263 6 71.00 mm[Hg] - Lying Down 128.00 mm[Hg] - Lying Down 98.30 Forehead Scan 94.00 % 84.00/ min 18.00/min 51861 923 84805 4 63.00 mm[Hg] - Sitting 105.00 mm[Hg] - Sitting 98.20 Tympanic 93.00 % 93.00/ min 18.00/min 38060 924 57738 8 66.00 mm[Hg] - Sitting 104.00 mm[Hg] - Sitting 98.20 Tympanic 98.00 % 84.00/ min 16.00/min 92779 925 59886 2 131.00 mg/dL 81625 925 33622 6 138.00 mg/dL 86753 926 60753 1 199.00 NI
--- OUTSIDE RECORDS SUMMARY | 2023-12-13 23:55 | External Medical Summary | Continuity Of Care Document ---
Author Name Unknown Address [address] [place] [address] Organization [facility] () Care Team Providers Care Blood Bank Laboratory Technologist Name Role Phone DO Parson Amy Primary Care Provider [phone] Allergies Allergy Reaction Start Date End Date [...] 3 0.1 mL 11/13 Inactiv e 2023 29480 46208 0 1 time Intrad ermal False Tubersol 5 tub. unit/0.1 mL intradermal injection solution [Tuberculin PPD] 0.1mL Intradermal 1 time For PPD 2nd Step Give 2nd Step PPD Day 1 and Read results Day 3 (schedule 7 days after 1st READ) 0.1mL 11/13 Inactiv e 2023 30465 43497 0 1 time Intrad ermal False DISCONTINUE as of 11/14/2023: Tubersol 5 tub. unit/0.1 mL intradermal injection solution [Tuberculin PPD] 11/13 Inactiv e 2023 84720 31776 0 Tubersol 5 tub. unit/0.1 mL intradermal injection solution 0.1 mL Intradermal 1 time For PPD Step 1 GIVE on Day 1 and read results Day 3 0.1 mL 11/16 Inactiv e 2023 30834 68303 1 1 time Intrad ermal False DISCONTINUE as of 11/14/2023: Tubersol 5 tub. unit/0.1 mL intradermal injection solution [Tuberculin PPD] 11/13 Inactiv e 2023 86680 43620 0 Tubersol 5 tub. unit/0.1 mL intradermal injection solution 0.1mL Intradermal 1 time For PPD 2nd Step Give 2nd Step PPD Day 1 and Read results Day 3 (schedule 7 days after 1st READ) 0.1mL 11/25 Active 2023 23231 85791 1 1 time Intrad ermal False Tylenol 325 mg tablet 2 tabs By Mouth Every 4 hours as needed For Pain DO NOT EXCEED 3000 MG APAP/24 Hours 2 tabs 202300 /0000 Active 2023 92666 62801 0 Every 4 hours as needed By Mouth False Tylenol 325 mg tablet 2 tabs By Mouth Every 4 hours as needed For Fever >100 DO NOT EXCEED 3000 MG APAP/24 Hours 2 tabs 202300 /0000 Active 2023 41054 23511 0 Every 4 hours as needed By Mouth False Dulcolax (bisacodyl) 10 mg rectal suppository One Suppository per rectum PRN if Milk of Magnisia ineffective. Give on day 5 of no BM 1 sup 2023 Active 2023 24501 74192 1 Daily as needed Rectal False Fleet Enema 19 gram-7 gram/118 mL Administer per rectum PRN one time if dulcolax suppository not effective. Give on day 6 of no BM 1 202300 0000 Active 2023 31156 03728 6 Daily as needed Rectal False Dextrose 50 % in water (D50W) intravenous solution [generic] Dextrose 50% reyes 20-50 ml (slow push) Intravenous if Glucagon not effective after 15 minutes. CALL 911 for ED Evaluation. 50% reyes 202300 /0000 Active 2023 62126 39176 9 Intrav enous False Glucagon (HCl) Emergency Kit 1 mg solution for injection Administer Glucagon 1 mg Intramuscular if 15 minutes after GLucose Gel is administered Glucose remains less than 70 1 mg 2023 Active 2023 63046 64766 2 Intram uscula r False Glucose Gel 40 % oral gel [Dextrose] PRN If resident is unable to swallow (with or without symptoms) and Glucose results less than 70 give GLucose 40% Gel 1 tube orally - Recheck Glucose 15 minutes after administratio n. 1 tube 2023 Active 2023 99919 53048 8 By Mouth False Lorazepam 0.5 mg tablet [generic] 0.5 mg By Mouth Every 8 hours as needed For Anxiety 0.5 mg 11/18 Inactiv e 2023 55844 12012 0 Every 8 hours as needed By Mouth False Potassium chloride ER 20 mEq tablet,exte nded release [generic] 40 meq By Mouth Once daily For Hypokalemia 40 meq 11/13 Inactiv e 2023 10948 28198 1 Once daily By Mouth False Colesevelam 625 mg tablet [generic] 1250 mg By Mouth Twice daily For TYPE 2 DIABETES MELLITUS WITHOUT COMPLICATIONS 1250 mg 11/19 Inactiv e 2023 70723 55991 1 Twice daily By Mouth E11.9 False Pioglitazon e 15 mg tablet [generic] 15 mg By Mouth Once daily For TYPE 2 DIABETES MELLITUS WITHOUT COMPLICATIONS 15 mg 11/14 Inactiv e 2023 95118 38603 1 Once daily By Mouth E11.9 False Cholecalcif hardeep (vitamin D3) 50 mcg (2,000 unit) tablet [generic] 50 mcg By Mouth Once daily For Supplement 50 mcg 2023 Active 2023 53896 97243 1 Once daily By Mouth False Colchicine 0.6 mg tablet [generic] 0.6 mg By Mouth Twice daily As Needed For Gout 0.6 mg 2023 Active 2023 08213 49588 4 Twice daily By Mouth False Levothyroxi ne 200 mcg tablet [generic] 200 mcg By Mouth Once daily For Hypothyroidis m 200 mcg 202300 0000 Active 2023 75567 60070 0 Once daily By Mouth False Ondansetron 4 mg disintegrat ing tablet [generic] 4 mg By Mouth Every 6 hours as needed For Nausea 4 mg 11/12 Inactiv e 2023 50679 10263 4 Every 6 hours as needed By Mouth False Docusate sodium 100 mg capsule [generic] 100 mg By Mouth Twice daily For Constipation 100 mg 202300 0000 Active 2023 45737 13238 1 Twice daily By Mouth False Oxycodone 5 mg tablet [generic] 5 mg By Mouth Every 6 hours as needed For Pain 5 mg 11/12 Inactiv e 2023 88839 72182 1 Every 6 hours as needed By Mouth False Oxycodone 5 mg tablet [generic] 5 mg By Mouth Every 6 hours as needed For Pain 5 mg 11/18 Inactiv e 2023 09855 37073 1 Every 6 hours as needed By Mouth False Milk of Magnesia 400 mg/5 mL oral suspension 30 ml By Mouth one time per day as needed if no BM x 3 days For Constipation 30 ml 202300 Active 2023 89217 62125 2 By Mouth False Ondansetron 4 mg disintegrat ing tablet [generic] 11/12 Inactiv e 2023 80084 06331 4 Ondansetron 4 mg disintegrat ing tablet [generic] 4 mg By Mouth Every 6 hours as needed For Nausea 4 mg 11/14 Inactiv e 2023 59706 18700 4 Every 6 hours as needed By Mouth False Potassium chloride ER 10 mEq capsule,ext ended release [generic] 40 mEq By Mouth Once daily For hypokalemia 40 mEq 11/17 Inactiv e 2023 93727 54747 1 Once daily By Mouth False Potassium chloride ER 10 mEq capsule,ext ended release [generic] 4 capsules By Mouth At bedtime For hypokalemia 4 capsule s 11/16 Inactiv e 2023 76514 52595 1 At bedtime By Mouth False Flomax 0.4 mg capsule 0.4 mg By Mouth At bedtime For Urinary retention 0.4 mg 11/18 Inactiv e 2023 89742 92820 1 At bedtime By Mouth False STOOL CULTURE Once daily Obtain stool culture, add C. Diff to routine stool culture For Rule out C. Diff 1x 2023 Active 2023 Once daily Other False Butrans 5 mcg/hour transdermal patch 1 patch Transdermal Every 7 Days For Pain 1 patch 11/20 Inactiv e 2023 18279 38023 4 Every week Transd ermal False Pantoprazol e 40 mg tablet,nu yed release [generic] 40 mg By Mouth Twice daily For gerd 40 mg 2023 Active 2023 42421 75077 0 Twice daily By Mouth False Scopolamine 1 mg over 3 days transdermal patch [generic] 1 Transdermal Every 72 hours For nausea 1 11/20 Inactiv e 2023 22064 87720 4 Every 72 hours Transd ermal False Ondansetron 4 mg disintegrat ing tablet [generic] 11/14 Inactiv e 2023 32036 97982 4 Ondansetron 4 mg disintegrat ing tablet [generic] 4 mg By Mouth Every 8 hours For Nausea 4 mg 2023 Active 2023 83763 55814 4 Every 8 hours By Mouth False Miralax 17 gram oral powder packet 8.5 g (1/2 capful) By Mouth Once daily For constipation 8.5 g 11/18 Inactiv e 2023 83112 52628 6 Once daily By Mouth False Pioglitazon e 15 mg tablet [generic] 11/14 Inactiv e 2023 60022 20439 1 E11.9 Pioglitazon e 15 mg tablet [generic] 7.5mg ( half a tab) By Mouth Once daily For TYPE 2 DIABETES MELLITUS WITHOUT COMPLICATIONS 7.5mg 2023 Active 2023 65072 85033 1 Once daily By Mouth E11.9 False Mylanta Coat-Cool 1,200 mg-270 mg-80 mg/10 mL oral suspension 10 ml By Mouth Every 8 hours As Needed For heartburn, indigestion, gas 10 ml 2023 Active 20233 27596 1 Every 8 hours By Mouth False Prochlorper azine maleate 5 mg tablet [generic] 5 mg By Mouth Every 8 hours as needed For Nausea 5 mg 2023 Active 2023 55530 79345 1 Every 8 hours as needed By Mouth False Potassium chloride ER 10 mEq capsule,ext ended release [generic] 10 meq By Mouth 4 times a day For Hypokalemia 10 meq 11/20 Inactiv e 2023 28264 32250 1 4 times a day By Mouth False Lorazepam 0.5 mg tablet [generic] 11/18 Inactiv e 2023 70401 21326 0 Lorazepam 0.5 mg tablet [generic] 0.5 mg By Mouth Every 8 hours as needed For Anxiety 0.5 mg 12/18 Active 2023 33139 00288 0 Every 8 hours as needed By Mouth False Flomax 0.4 mg capsule 11/18 Inactiv e 2023 55980 11946 1 Problems Code Description Start Date End Date [...] weight Temperature SpO2 Blood Sugar Pulse Respirations 41645 5 75.00 mm[Hg] - Sitting 140.00 mm[Hg] - Sitting 65 NI 98.00 Tympanic 95.00 % 102.00 /min 18.00/min 8 78066 9 75344 918 54480 2 75.00 mm[Hg] - Sitting 140.00 mm[Hg] - Sitting 98.00 Tympanic 102.00 /min 18.00/min 82432 918 56250 3 02416 918 84260 1 72.00 mm[Hg] - Sitting 138.00 mm[Hg] - Sitting 98.40 Tympanic 66630 8 82433 4 88.00/ min 18.00/min 36228 919 15022 4 71.00 mm[Hg] - Sitting 115.00 mm[Hg] - Sitting 98.30 Tympanic 97.00 % 86.00/ min 16.00/min 64354 919 36790 0 71.00 mm[Hg] - Sitting 115.00 mm[Hg] - Sitting 98.30 Tympanic 86.00/ min 16.00/min 38221 919 68382 7 71.00 mm[Hg] - Sitting 115.00 mm[Hg] - Sitting 98.30 Tympanic 86.00/ min 16.00/min 33444 920 94253 6 72.00 mm[Hg] - Sitting 112.00 mm[Hg] - Sitting 98.10 Tympanic 82.00/ min 18.00/min 32754 920 57008 0 75.00 mm[Hg] - Sitting 130.00 mm[Hg] - Sitting 98.40 Forehead Scan 93.00 % 88.00/ min 18.00/min 93542 920 89186 2 75.00 mm[Hg] - Lying Down 130.00 mm[Hg] - Lying Down 98.40 Tympanic 88.00/ min 18.00/min 02291 920 01115 5 75.00 mm[Hg] - Lying Down 130.00 mm[Hg] - Lying Down 98.40 Tympanic 88.00/ min 18.00/min 38422 920 73141 6 199.00 NI 71597 920 49569 3 75.00 mm[Hg] - Sitting 130.00 mm[Hg] - Sitting 98.40 Tympanic 88.00/ min 18.00/min 04607 921 50368 1 71.00 mm[Hg] - Lying Down 119.00 mm[Hg] - Lying Down 98.40 Forehead Scan 96.00 % 83.00/ min 16.00/min 37024 922 87984 6 71.00 mm[Hg] - Lying Down 128.00 mm[Hg] - Lying Down 98.30 Forehead Scan 94.00 % 84.00/ min 18.00/min 98562 923 03034 4 63.00 mm[Hg] - Sitting 105.00 mm[Hg] - Sitting 98.20 Tympanic 93.00 % 93.00/ min 18.00/min 17851 924 84688 8 66.00 mm[Hg] - Sitting 104.00 mm[Hg] - Sitting 98.20 Tympanic 98.00 % 84.00/ min 16.00/min 21007 925 10480 2 131.00 mg/dL 83252 925 86862 6 138.00 mg/dL 48445 926 86710 1 199.00 NI 46837 927 40926 7 98.40 Tympanic 29513 927 21951 0 78.00 mm[Hg] - Sitting 124.00 mm[Hg] - Sitting 98.30 Forehead Scan 95.00 % 83.00/ min 16.00/min 60240 927 12685 7 98.10 Tympanic
--- OUTSIDE RECORDS SUMMARY | 2023-12-13 23:55 | External Medical Summary | Continuity Of Care Document ---
Author Name Unknown Address [address] [place] [address] Organization [facility]– [place]note 2] [place] () Care Team Providers Care Senior Interior Designer Name Role Phone DO Parson Amy Primary Care Provider [phone] Allergies Allergy Reaction Start Date End Date [...] 3 0.1 mL 11/13 Inactiv e 2023 21909 08089 0 1 time Intrad ermal False Tubersol 5 tub. unit/0.1 mL intradermal injection solution [Tuberculin PPD] 0.1mL Intradermal 1 time For PPD 2nd Step Give 2nd Step PPD Day 1 and Read results Day 3 (schedule 7 days after 1st READ) 0.1mL 11/13 Inactiv e 2023 45851 47535 0 1 time Intrad ermal False DISCONTINUE as of 11/14/2023: Tubersol 5 tub. unit/0.1 mL intradermal injection solution [Tuberculin PPD] 11/13 Inactiv e 2023 01576 46847 0 Tubersol 5 tub. unit/0.1 mL intradermal injection solution 0.1 mL Intradermal 1 time For PPD Step 1 GIVE on Day 1 and read results Day 3 0.1 mL 11/16 Inactiv e 2023 73422 24311 1 1 time Intrad ermal False DISCONTINUE as of 11/14/2023: Tubersol 5 tub. unit/0.1 mL intradermal injection solution [Tuberculin PPD] 11/13 Inactiv e 2023 39723 04902 0 Tubersol 5 tub. unit/0.1 mL intradermal injection solution 0.1mL Intradermal 1 time For PPD 2nd Step Give 2nd Step PPD Day 1 and Read results Day 3 (schedule 7 days after 1st READ) 0.1mL 11/25 Active 2023 73609 52696 1 1 time Intrad ermal False Tylenol 325 mg tablet 2 tabs By Mouth Every 4 hours as needed For Pain DO NOT EXCEED 3000 MG APAP/24 Hours 2 tabs 202300 /0000 Active 2023 50978 93683 0 Every 4 hours as needed By Mouth False Tylenol 325 mg tablet 2 tabs By Mouth Every 4 hours as needed For Fever >100 DO NOT EXCEED 3000 MG APAP/24 Hours 2 tabs 202300 /0000 Active 2023 41265 67127 0 Every 4 hours as needed By Mouth False Dulcolax (bisacodyl) 10 mg rectal suppository One Suppository per rectum PRN if Milk of Magnisia ineffective. Give on day 5 of no BM 1 sup 2023 Active 2023 82723 62553 1 Daily as needed Rectal False Fleet Enema 19 gram-7 gram/118 mL Administer per rectum PRN one time if dulcolax suppository not effective. Give on day 6 of no BM 1 202300 0000 Active 2023 36692 80137 6 Daily as needed Rectal False Dextrose 50 % in water (D50W) intravenous solution [generic] Dextrose 50% reyes 20-50 ml (slow push) Intravenous if Glucagon not effective after 15 minutes. CALL 911 for ED Evaluation. 50% reyes 202300 /0000 Active 2023 82273 90035 9 Intrav enous False Glucagon (HCl) Emergency Kit 1 mg solution for injection Administer Glucagon 1 mg Intramuscular if 15 minutes after GLucose Gel is administered Glucose remains less than 70 1 mg 2023 Active 2023 01857 77088 2 Intram uscula r False Glucose Gel 40 % oral gel [Dextrose] PRN If resident is unable to swallow (with or without symptoms) and Glucose results less than 70 give GLucose 40% Gel 1 tube orally - Recheck Glucose 15 minutes after administratio n. 1 tube 2023 Active 2023 56297 17577 8 By Mouth False Lorazepam 0.5 mg tablet [generic] 0.5 mg By Mouth Every 8 hours as needed For Anxiety 0.5 mg 11/18 Inactiv e 2023 62464 43957 0 Every 8 hours as needed By Mouth False Potassium chloride ER 20 mEq tablet,exte nded release [generic] 40 meq By Mouth Once daily For Hypokalemia 40 meq 11/13 Inactiv e 2023 66345 24371 1 Once daily By Mouth False Colesevelam 625 mg tablet [generic] 1250 mg By Mouth Twice daily For TYPE 2 DIABETES MELLITUS WITHOUT COMPLICATIONS 1250 mg 11/19 Inactiv e 2023 68488 16591 1 Twice daily By Mouth E11.9 False Pioglitazon e 15 mg tablet [generic] 15 mg By Mouth Once daily For TYPE 2 DIABETES MELLITUS WITHOUT COMPLICATIONS 15 mg 11/14 Inactiv e 2023 88764 42250 1 Once daily By Mouth E11.9 False Cholecalcif hardeep (vitamin D3) 50 mcg (2,000 unit) tablet [generic] 50 mcg By Mouth Once daily For Supplement 50 mcg 2023 Active 2023 83427 15041 1 Once daily By Mouth False Colchicine 0.6 mg tablet [generic] 0.6 mg By Mouth Twice daily As Needed For Gout 0.6 mg 2023 Active 2023 10477 23489 4 Twice daily By Mouth False Levothyroxi ne 200 mcg tablet [generic] 200 mcg By Mouth Once daily For Hypothyroidis m 200 mcg 202300 0000 Active 2023 60677 84717 0 Once daily By Mouth False Ondansetron 4 mg disintegrat ing tablet [generic] 4 mg By Mouth Every 6 hours as needed For Nausea 4 mg 11/12 Inactiv e 2023 18515 04246 4 Every 6 hours as needed By Mouth False Docusate sodium 100 mg capsule [generic] 100 mg By Mouth Twice daily For Constipation 100 mg 202300 0000 Active 2023 99898 64402 1 Twice daily By Mouth False Oxycodone 5 mg tablet [generic] 5 mg By Mouth Every 6 hours as needed For Pain 5 mg 11/12 Inactiv e 2023 08802 80517 1 Every 6 hours as needed By Mouth False Oxycodone 5 mg tablet [generic] 5 mg By Mouth Every 6 hours as needed For Pain 5 mg 11/18 Inactiv e 2023 41345 23062 1 Every 6 hours as needed By Mouth False Milk of Magnesia 400 mg/5 mL oral suspension 30 ml By Mouth one time per day as needed if no BM x 3 days For Constipation 30 ml 202300 Active 2023 96422 97014 2 By Mouth False Ondansetron 4 mg disintegrat ing tablet [generic] 11/12 Inactiv e 2023 19199 96076 4 Ondansetron 4 mg disintegrat ing tablet [generic] 4 mg By Mouth Every 6 hours as needed For Nausea 4 mg 11/14 Inactiv e 2023 02617 67912 4 Every 6 hours as needed By Mouth False Potassium chloride ER 10 mEq capsule,ext ended release [generic] 40 mEq By Mouth Once daily For hypokalemia 40 mEq 11/17 Inactiv e 2023 60340 51320 1 Once daily By Mouth False Potassium chloride ER 10 mEq capsule,ext ended release [generic] 4 capsules By Mouth At bedtime For hypokalemia 4 capsule s 11/16 Inactiv e 2023 91773 07403 1 At bedtime By Mouth False Flomax 0.4 mg capsule 0.4 mg By Mouth At bedtime For Urinary retention 0.4 mg 11/18 Inactiv e 2023 81436 39443 1 At bedtime By Mouth False STOOL CULTURE Once daily Obtain stool culture, add C. Diff to routine stool culture For Rule out C. Diff 1x 2023 Active 2023 Once daily Other False Butrans 5 mcg/hour transdermal patch 1 patch Transdermal Every 7 Days For Pain 1 patch 11/20 Inactiv e 2023 83824 83109 4 Every week Transd ermal False Pantoprazol e 40 mg tablet,nu yed release [generic] 40 mg By Mouth Twice daily For gerd 40 mg 2023 Active 2023 09486 80591 0 Twice daily By Mouth False Scopolamine 1 mg over 3 days transdermal patch [generic] 1 Transdermal Every 72 hours For nausea 1 11/20 Inactiv e 2023 18294 46431 4 Every 72 hours Transd ermal False Ondansetron 4 mg disintegrat ing tablet [generic] 11/14 Inactiv e 2023 86561 40963 4 Ondansetron 4 mg disintegrat ing tablet [generic] 4 mg By Mouth Every 8 hours For Nausea 4 mg 2023 Active 2023 62692 04848 4 Every 8 hours By Mouth False Miralax 17 gram oral powder packet 8.5 g (1/2 capful) By Mouth Once daily For constipation 8.5 g 11/18 Inactiv e 2023 78952 82540 6 Once daily By Mouth False Pioglitazon e 15 mg tablet [generic] 11/14 Inactiv e 2023 61005 65923 1 E11.9 Pioglitazon e 15 mg tablet [generic] 7.5mg ( half a tab) By Mouth Once daily For TYPE 2 DIABETES MELLITUS WITHOUT COMPLICATIONS 7.5mg 2023 Active 2023 85113 15194 1 Once daily By Mouth E11.9 False Mylanta Coat-Cool 1,200 mg-270 mg-80 mg/10 mL oral suspension 10 ml By Mouth Every 8 hours As Needed For heartburn, indigestion, gas 10 ml 2023 Active 2023 25075 63891 1 Every 8 hours By Mouth False Prochlorper azine maleate 5 mg tablet [generic] 5 mg By Mouth Every 8 hours as needed For Nausea 5 mg 2023 Active 2023 99452 07552 1 Every 8 hours as needed By Mouth False Potassium chloride ER 10 mEq capsule,ext ended release [generic] 10 meq By Mouth 4 times a day For Hypokalemia 10 meq 11/20 Inactiv e 2023 30702 48330 1 4 times a day By Mouth False Lorazepam 0.5 mg tablet [generic] 11/18 Inactiv e 2023 07673 21121 0 Lorazepam 0.5 mg tablet [generic] 0.5 mg By Mouth Every 8 hours as needed For Anxiety 0.5 mg 12/18 Active 2023 41468 68508 0 Every 8 hours as needed By Mouth False Flomax 0.4 mg capsule 11/18 Inactiv e 2023 38811 34263 1 Flomax 0.4 mg capsule 0.4 mg By Mouth Once daily For Urinary retention 0.4 mg 11/19 Inactiv e 2023 75385 94532 1 Once daily By Mouth False Oxycodone 5 mg tablet [generic] 11/18 Inactiv e 2023 20219 33958 1 Oxycodone 5 mg tablet [generic] 5 mg By Mouth Every 6 hours as needed For Back Pain 5 mg 2023 Active 2023 41868 75650 1 Every 6 hours as needed By Mouth False Cipro 250 mg tablet 250 mg By Mouth Twice daily For UTI 250 mg 11/19 Inactiv e 2023 57197 87874 1 Twice daily By Mouth False Senna 8.6 mg tablet 17.2 mg By Mouth Twice daily For Constipation 17.2 mg 2023 Active 2023 86918 04636 1 Twice daily By Mouth False Zyprexa 2.5 mg tablet 2.5 mg By Mouth At bedtime For persistent nausea 2.5 mg 2023 Active 2023 52087 95355 0 At bedtime By Mouth False MAGNESSIUM GLUCONATE 500mg By Mouth Every morning For Supplement 500mg 2023 Active 2023 Every morning By Mouth False Cipro 250 mg tablet 11/19 Inactiv e 2023 70257 52689 1 Cipro 250 mg tablet 250 mg By Mouth Twice daily For UTI 250 mg 11/26 Active 2023 00464 47634 1 Twice daily By Mouth False Flomax 0.4 mg capsule 11/19 Inactiv e 2023 15210 78791 1 Flomax 0.4 mg capsule 0.4 mg By Mouth Once daily For Urinary retention 0.4 mg 11/20 Inactiv e 2023 10464 30177 1 Once daily By Mouth False Motrin IB 200 mg tablet 600 mg By Mouth Every 12 hours As Needed For Pain 600 mg 11/20 Inactiv e 2023 45596 87784 2 Every 12 hours By Mouth False Motrin IB 200 mg tablet 600 mg By Mouth Every 12 hours As Needed For Pain 600 mg 11/20 Inactiv e 2023 55952 81378 2 Every 12 hours By Mouth False Motrin IB 200 mg tablet 600 mg By Mouth Every 12 hours As Needed For Pain 600 mg 11/27 Active 2023 71242 86991 2 Every 12 hours By Mouth False Flomax 0.4 mg capsule 0.4 mg By Mouth Once daily For Urinary retention 0.4 mg 2023 Active 2023 67397 67905 1 Once daily By Mouth False Scopolamine 1 mg over 3 days transdermal patch [generic] 1 Transdermal Every 72 hours For nausea 1 11/22 Active 2023 38852 08701 4 Every 72 hours Transd ermal False Butrans 7.5 mcg/hour transdermal patch 1 patch Transdermal Every 7 Days For Pain 1 patch 2023 Active 2023 37280 43211 4 Every week Transd ermal False Tizanidine 2 mg tablet [generic] 2mg By Mouth At bedtime For Muscle spasms 2mg 2023 Active 2023 74133 32098 0 At bedtime By Mouth False Problems Code [...] 11/13/2023 Active K59.00 Constipation, unspecified 11/13/2023 Active VITAL SIGNS Date Time Diastolic blood pressure Systolic blood pressure Body height Body weight Temperature SpO2 Blood Sugar Pulse Respirations 8 95069 5 75.00 mm[Hg] - Sitting 140.00 mm[Hg] - Sitting 65 NI 98.00 Tympanic 95.00 % 102.00 /min 18.00/min 918 68977 9 19801 918 65011 2 75.00 mm[Hg] - Sitting 140.00 mm[Hg] - Sitting 98.00 Tympanic 102.00 /min 18.00/min 38943 918 72052 3 48194 918 78081 1 72.00 mm[Hg] - Sitting 138.00 mm[Hg] - Sitting 98.40 Tympanic 918 97356 4 88.00/ min 18.00/min 919 05211 4 71.00 mm[Hg] - Sitting 115.00 mm[Hg] - Sitting 98.30 Tympanic 97.00 % 86.00/ min 16.00/min 65991 919 98267 0 71.00 mm[Hg] - Sitting 115.00 mm[Hg] - Sitting 98.30 Tympanic 86.00/ min 16.00/min 40709 919 85424 7 71.00 mm[Hg] - Sitting 115.00 mm[Hg] - Sitting 98.30 Tympanic 86.00/ min 16.00/min 83800 920 53427 6 72.00 mm[Hg] - Sitting 112.00 mm[Hg] - Sitting 98.10 Tympanic 82.00/ min 18.00/min 62011 920 95150 0 75.00 mm[Hg] - Sitting 130.00 mm[Hg] - Sitting 98.40 Forehead Scan 93.00 % 88.00/ min 18.00/min 63303 920 47044 2 75.00 mm[Hg] - Lying Down 130.00 mm[Hg] - Lying Down 98.40 Tympanic 88.00/ min 18.00/min 03877 920 23021 5 75.00 mm[Hg] - Lying Down 130.00 mm[Hg] - Lying Down 98.40 Tympanic 88.00/ min 18.00/min 16184 920 66417 6 199.00 NI [address] 920 52247 3 75.00 mm[Hg] - Sitting 130.00 mm[Hg] - Sitting 98.40 Tympanic 88.00/ min 18.00/min 86564 921 03746 1 71.00 mm[Hg] - Lying Down 119.00 mm[Hg] - Lying Down 98.40 Forehead Scan 96.00 % 83.00/ min 16.00/min 87067 922 07771 6 71.00 mm[Hg] - Lying Down 128.00 mm[Hg] - Lying Down 98.30 Forehead Scan 94.00 % 84.00/ min 18.00/min 81244 923 99944 4 63.00 mm[Hg] - Sitting 105.00 mm[Hg] - Sitting 98.20 Tympanic 93.00 % 93.00/ min 18.00/min 19193 924 50548 8 66.00 mm[Hg] - Sitting 104.00 mm[Hg] - Sitting 98.20 Tympanic 98.00 % 84.00/ min 16.00/min 88849 925 94628 2 131.00 mg/dL 28408 925 60191 6 138.00 mg/dL 70791 926 97374 1 199.00 NI
--- OUTSIDE RECORDS SUMMARY | 2023-12-13 23:55 | External Medical Summary | Continuity Of Care Document ---
Author Name Unknown Address [address] [place] [address] Organization [facility] [place] () Care Team Providers Care Clinical Psychiatrist Name Role Phone DO Parson Amy Primary Care Provider [phone] Allergies Allergy Reaction Start Date End Date [...] 3 0.1 mL 11/13 Inactiv e 2023 72752 51928 0 1 time Intrad ermal False Tubersol 5 tub. unit/0.1 mL intradermal injection solution [Tuberculin PPD] 0.1mL Intradermal 1 time For PPD 2nd Step Give 2nd Step PPD Day 1 and Read results Day 3 (schedule 7 days after 1st READ) 0.1mL 11/13 Inactiv e 2023 26753 48780 0 1 time Intrad ermal False DISCONTINUE as of 11/14/2023: Tubersol 5 tub. unit/0.1 mL intradermal injection solution [Tuberculin PPD] 11/13 Inactiv e 2023 08078 10172 0 Tubersol 5 tub. unit/0.1 mL intradermal injection solution 0.1 mL Intradermal 1 time For PPD Step 1 GIVE on Day 1 and read results Day 3 0.1 mL 11/16 Inactiv e 2023 61460 98008 1 1 time Intrad ermal False DISCONTINUE as of 11/14/2023: Tubersol 5 tub. unit/0.1 mL intradermal injection solution [Tuberculin PPD] 11/13 Inactiv e 2023 22460 55740 0 Tubersol 5 tub. unit/0.1 mL intradermal injection solution 0.1mL Intradermal 1 time For PPD 2nd Step Give 2nd Step PPD Day 1 and Read results Day 3 (schedule 7 days after 1st READ) 0.1mL 11/25 Active 2023 32714 97156 1 1 time Intrad ermal False Tylenol 325 mg tablet 2 tabs By Mouth Every 4 hours as needed For Pain DO NOT EXCEED 3000 MG APAP/24 Hours 2 tabs 202300 /0000 Active 2023 52971 91095 0 Every 4 hours as needed By Mouth False Tylenol 325 mg tablet 2 tabs By Mouth Every 4 hours as needed For Fever >100 DO NOT EXCEED 3000 MG APAP/24 Hours 2 tabs 202300 /0000 Active 2023 47851 09058 0 Every 4 hours as needed By Mouth False Dulcolax (bisacodyl) 10 mg rectal suppository One Suppository per rectum PRN if Milk of Magnisia ineffective. Give on day 5 of no BM 1 sup 2023 Active 2023 23200 41678 1 Daily as needed Rectal False Fleet Enema 19 gram-7 gram/118 mL Administer per rectum PRN one time if dulcolax suppository not effective. Give on day 6 of no BM 1 202300 0000 Active 2023 70491 15964 6 Daily as needed Rectal False Dextrose 50 % in water (D50W) intravenous solution [generic] Dextrose 50% reyes 20-50 ml (slow push) Intravenous if Glucagon not effective after 15 minutes. CALL 911 for ED Evaluation. 50% reyes 202300 /0000 Active 2023 73530 84403 9 Intrav enous False Glucagon (HCl) Emergency Kit 1 mg solution for injection Administer Glucagon 1 mg Intramuscular if 15 minutes after GLucose Gel is administered Glucose remains less than 70 1 mg 2023 Active 2023 58192 19744 2 Intram uscula r False Glucose Gel 40 % oral gel [Dextrose] PRN If resident is unable to swallow (with or without symptoms) and Glucose results less than 70 give GLucose 40% Gel 1 tube orally - Recheck Glucose 15 minutes after administratio n. 1 tube 2023 Active 2023 83653 44546 8 By Mouth False Lorazepam 0.5 mg tablet [generic] 0.5 mg By Mouth Every 8 hours as needed For Anxiety 0.5 mg 11/18 Inactiv e 2023 78037 45781 0 Every 8 hours as needed By Mouth False Potassium chloride ER 20 mEq tablet,exte nded release [generic] 40 meq By Mouth Once daily For Hypokalemia 40 meq 11/13 Inactiv e 2023 49485 41814 1 Once daily By Mouth False Colesevelam 625 mg tablet [generic] 1250 mg By Mouth Twice daily For TYPE 2 DIABETES MELLITUS WITHOUT COMPLICATIONS 1250 mg 11/19 Inactiv e 2023 28802 43170 1 Twice daily By Mouth E11.9 False Pioglitazon e 15 mg tablet [generic] 15 mg By Mouth Once daily For TYPE 2 DIABETES MELLITUS WITHOUT COMPLICATIONS 15 mg 11/14 Inactiv e 2023 10880 64360 1 Once daily By Mouth E11.9 False Cholecalcif hardeep (vitamin D3) 50 mcg (2,000 unit) tablet [generic] 50 mcg By Mouth Once daily For Supplement 50 mcg 2023 Active 2023 55909 06996 1 Once daily By Mouth False Colchicine 0.6 mg tablet [generic] 0.6 mg By Mouth Twice daily As Needed For Gout 0.6 mg 2023 Active 2023 27725 98464 4 Twice daily By Mouth False Levothyroxi ne 200 mcg tablet [generic] 200 mcg By Mouth Once daily For Hypothyroidis m 200 mcg 202300 0000 Active 2023 89306 83861 0 Once daily By Mouth False Ondansetron 4 mg disintegrat ing tablet [generic] 4 mg By Mouth Every 6 hours as needed For Nausea 4 mg 11/12 Inactiv e 2023 27723 43195 4 Every 6 hours as needed By Mouth False Docusate sodium 100 mg capsule [generic] 100 mg By Mouth Twice daily For Constipation 100 mg 202300 0000 Active 2023 10667 46740 1 Twice daily By Mouth False Oxycodone 5 mg tablet [generic] 5 mg By Mouth Every 6 hours as needed For Pain 5 mg 11/12 Inactiv e 2023 10980 02143 1 Every 6 hours as needed By Mouth False Oxycodone 5 mg tablet [generic] 5 mg By Mouth Every 6 hours as needed For Pain 5 mg 11/18 Inactiv e 2023 24419 60560 1 Every 6 hours as needed By Mouth False Milk of Magnesia 400 mg/5 mL oral suspension 30 ml By Mouth one time per day as needed if no BM x 3 days For Constipation 30 ml 202300 Active 2023 78500 20071 2 By Mouth False Ondansetron 4 mg disintegrat ing tablet [generic] 11/12 Inactiv e 2023 86896 72339 4 Ondansetron 4 mg disintegrat ing tablet [generic] 4 mg By Mouth Every 6 hours as needed For Nausea 4 mg 11/14 Inactiv e 2023 89232 83500 4 Every 6 hours as needed By Mouth False Potassium chloride ER 10 mEq capsule,ext ended release [generic] 40 mEq By Mouth Once daily For hypokalemia 40 mEq 11/17 Inactiv e 2023 45123 62391 1 Once daily By Mouth False Potassium chloride ER 10 mEq capsule,ext ended release [generic] 4 capsules By Mouth At bedtime For hypokalemia 4 capsule s 11/16 Inactiv e 2023 27421 74328 1 At bedtime By Mouth False Flomax 0.4 mg capsule 0.4 mg By Mouth At bedtime For Urinary retention 0.4 mg 11/18 Inactiv e 2023 68050 43816 1 At bedtime By Mouth False STOOL CULTURE Once daily Obtain stool culture, add C. Diff to routine stool culture For Rule out C. Diff 1x 2023 Active 2023 Once daily Other False Butrans 5 mcg/hour transdermal patch 1 patch Transdermal Every 7 Days For Pain 1 patch 11/20 Inactiv e 2023 74653 65993 4 Every week Transd ermal False Pantoprazol e 40 mg tablet,nu yed release [generic] 40 mg By Mouth Twice daily For gerd 40 mg 2023 Active 2023 58819 30724 0 Twice daily By Mouth False Scopolamine 1 mg over 3 days transdermal patch [generic] 1 Transdermal Every 72 hours For nausea 1 11/20 Inactiv e 2023 45801 13911 4 Every 72 hours Transd ermal False Ondansetron 4 mg disintegrat ing tablet [generic] 11/14 Inactiv e 2023 07311 20377 4 Ondansetron 4 mg disintegrat ing tablet [generic] 4 mg By Mouth Every 8 hours For Nausea 4 mg 2023 Active 2023 72272 94670 4 Every 8 hours By Mouth False Miralax 17 gram oral powder packet 8.5 g (1/2 capful) By Mouth Once daily For constipation 8.5 g 11/18 Inactiv e 2023 65802 05452 6 Once daily By Mouth False Pioglitazon e 15 mg tablet [generic] 11/14 Inactiv e 2023 24359 75059 1 E11.9 Pioglitazon e 15 mg tablet [generic] 7.5mg ( half a tab) By Mouth Once daily For TYPE 2 DIABETES MELLITUS WITHOUT COMPLICATIONS 7.5mg 2023 Active 2023 28481 26486 1 Once daily By Mouth E11.9 False Mylanta Coat-Cool 1,200 mg-270 mg-80 mg/10 mL oral suspension 10 ml By Mouth Every 8 hours As Needed For heartburn, indigestion, gas 10 ml 2023 Active 2023 43476 29348 1 Every 8 hours By Mouth False Prochlorper azine maleate 5 mg tablet [generic] 5 mg By Mouth Every 8 hours as needed For Nausea 5 mg 2023 Active 2023 45119 67503 1 Every 8 hours as needed By Mouth False Potassium chloride ER 10 mEq capsule,ext ended release [generic] 10 meq By Mouth 4 times a day For Hypokalemia 10 meq 11/20 Inactiv e 2023 35037 75196 1 4 times a day By Mouth False Lorazepam 0.5 mg tablet [generic] 11/18 Inactiv e 2023 92137 12019 0 Lorazepam 0.5 mg tablet [generic] 0.5 mg By Mouth Every 8 hours as needed For Anxiety 0.5 mg 12/18 Active 2023 28403 95780 0 Every 8 hours as needed By Mouth False Flomax 0.4 mg capsule 11/18 Inactiv e 2023 68658 33250 1 Flomax 0.4 mg capsule 0.4 mg By Mouth Once daily For Urinary retention 0.4 mg 11/19 Inactiv e 2023 03654 24801 1 Once daily By Mouth False Oxycodone 5 mg tablet [generic] 11/18 Inactiv e 2023 12934 11760 1 Oxycodone 5 mg tablet [generic] 5 mg By Mouth Every 6 hours as needed For Back Pain 5 mg 2023 Active 2023 49858 13402 1 Every 6 hours as needed By Mouth False Cipro 250 mg tablet 250 mg By Mouth Twice daily For UTI 250 mg 11/19 Inactiv e 2023 85522 77257 1 Twice daily By Mouth False Senna 8.6 mg tablet 17.2 mg By Mouth Twice daily For Constipation 17.2 mg 2023 Active 2023 90914 60028 1 Twice daily By Mouth False Zyprexa 2.5 mg tablet 2.5 mg By Mouth At bedtime For persistent nausea 2.5 mg 2023 Active 2023 37141 07725 0 At bedtime By Mouth False MAGNESSIUM GLUCONATE 500mg By Mouth Every morning For Supplement 500mg 2023 Active 2023 Every morning By Mouth False Cipro 250 mg tablet 11/19 Inactiv e 2023 25080 74960 1 Cipro 250 mg tablet 250 mg By Mouth Twice daily For UTI 250 mg 11/26 Active 2023 21095 99656 1 Twice daily By Mouth False Flomax 0.4 mg capsule 11/19 Inactiv e 2023 80521 53216 1 Flomax 0.4 mg capsule 0.4 mg By Mouth Once daily For Urinary retention 0.4 mg 11/20 Inactiv e 2023 94630 96313 1 Once daily By Mouth False Motrin IB 200 mg tablet 600 mg By Mouth Every 12 hours As Needed For Pain 600 mg 11/20 Inactiv e 2023 01505 35254 2 Every 12 hours By Mouth False Motrin IB 200 mg tablet 600 mg By Mouth Every 12 hours As Needed For Pain 600 mg 11/20 Inactiv e 2023 42942 66244 2 Every 12 hours By Mouth False Motrin IB 200 mg tablet 600 mg By Mouth Every 12 hours As Needed For Pain 600 mg 11/27 Active 2023 35414 31019 2 Every 12 hours By Mouth False Flomax 0.4 mg capsule 0.4 mg By Mouth Once daily For Urinary retention 0.4 mg 11/21 Inactiv e 2023 05012 27766 1 Once daily By Mouth False Scopolamine 1 mg over 3 days transdermal patch [generic] 1 Transdermal Every 72 hours For nausea 1 11/22 Inactiv e 2023 26059 46365 4 Every 72 hours Transd ermal False Butrans 7.5 mcg/hour transdermal patch 1 patch Transdermal Every 7 Days For Pain 1 patch 202300 0000 Active 2023 06505 68772 4 Every week Transd ermal False Tizanidine 2 mg tablet [generic] 2mg By Mouth At bedtime For Muscle spasms 2mg 202300 0000 Active 2023 88188 95801 0 At bedtime By Mouth False Prednisone 20 mg tablet [generic] 60 mg By Mouth 1 time For Sciatica Pain 60 mg 11/22 Inactiv e 2023 81755 72858 1 1 time By Mouth False Prednisone 20 mg tablet [generic] 40mg By Mouth 1 time For Sciatica Pain 40mg 11/23 Active 2023 92995 26613 1 1 time By Mouth False Prednisone 20 mg tablet [generic] 20mg By Mouth 1 time For Sciatica 20mg 11/24 Active 2023 81985 03340 1 1 time By Mouth False ACCU [...] order For Steroid Therapy 11/28 Active 2023 84806 57014 9 Twice daily Subcut aneous False Problems [...] Temperature SpO2 Blood Sugar Pulse Respirations 8 42283 5 75.00 mm[Hg] - Sitting 140.00 mm[Hg] - Sitting 65 NI 98.00 Tympanic 95.00 % 102.00 /min 18.00/min 918 45584 9 918 24394 2 75.00 mm[Hg] - Sitting 140.00 mm[Hg] - Sitting 98.00 Tympanic 102.00 /min 18.00/min 43361 918 60050 3 54373 918 37999 1 72.00 mm[Hg] - Sitting 138.00 mm[Hg] - Sitting 98.40 Tympanic 8 64742 4 88.00/ min 18.00/min 919 58960 4 71.00 mm[Hg] - Sitting 115.00 mm[Hg] - Sitting 98.30 Tympanic 97.00 % 86.00/ min 16.00/min 919 56859 0 71.00 mm[Hg] - Sitting 115.00 mm[Hg] - Sitting 98.30 Tympanic 86.00/ min 16.00/min 88136 919 09806 7 71.00 mm[Hg] - Sitting 115.00 mm[Hg] - Sitting 98.30 Tympanic 86.00/ min 16.00/min 20747 920 55246 6 72.00 mm[Hg] - Sitting 112.00 mm[Hg] - Sitting 98.10 Tympanic 82.00/ min 18.00/min 920 66729 0 75.00 mm[Hg] - Sitting 130.00 mm[Hg] - Sitting 98.40 Forehead Scan 93.00 % 88.00/ min 18.00/min 920 21836 2 75.00 mm[Hg] - Lying Down 130.00 mm[Hg] - Lying Down 98.40 Tympanic 88.00/ min 18.00/min 95347 920 29353 5 75.00 mm[Hg] - Lying Down 130.00 mm[Hg] - Lying Down 98.40 Tympanic 88.00/ min 18.00/min 920 30161 6 199.00 NI 920 16343 3 75.00 mm[Hg] - Sitting 130.00 mm[Hg] - Sitting 98.40 Tympanic 88.00/ min 18.00/min 13313 921 74793 1 71.00 mm[Hg] - Lying Down 119.00 mm[Hg] - Lying Down 98.40 Forehead Scan 96.00 % 83.00/ min 16.00/min 79856 922 89817 6 71.00 mm[Hg] - Lying Down 128.00 mm[Hg] - Lying Down 98.30 Forehead Scan 94.00 % 84.00/ min 18.00/min 12484 923 29189 4 63.00 mm[Hg] - Sitting 105.00 mm[Hg] - Sitting 98.20 Tympanic 93.00 % 93.00/ min 18.00/min 07079 924 51586 8 66.00 mm[Hg] - Sitting 104.00 mm[Hg] - Sitting 98.20 Tympanic 98.00 % 84.00/ min 16.00/min 34576 925 11996 2 131.00 mg/dL 86969 925 19477 6 138.00 mg/dL 01818 926 51422 1 199.00 NI 61553 927 86398 7 98.40 Tympanic 13037 927 32865 0 78.00 mm[Hg] - Sitting 124.00 mm[Hg] - Sitting 98.30 Forehead Scan 95.00 % 83.00/ min 16.00/min 20313 927 82010 7 98.10 Tympanic 20855 928 28682 9 60.00 mm[Hg] - Sitting 99.00 mm[Hg] - Sitting 98.20 Tympanic 91.00 % 64.00/ min 16.00/min 22019 928 87731 0 98.40 Tympanic
--- OUTSIDE RECORDS SUMMARY | 2023-12-13 23:55 | External Medical Summary | Continuity Of Care Document ---
Author Name Unknown Address [address] [place] [address] Organization [facility] [place] () Care Team Providers Care [employer] Manager Name Role Phone DO Parson Amy Primary Care Provider [phone] Allergies Allergy Reaction Start Date End Date [...] 3 0.1 mL 11/13 Inactiv e 2023 09213 91906 0 1 time Intrad ermal False Tubersol 5 tub. unit/0.1 mL intradermal injection solution [Tuberculin PPD] 0.1mL Intradermal 1 time For PPD 2nd Step Give 2nd Step PPD Day 1 and Read results Day 3 (schedule 7 days after 1st READ) 0.1mL 11/13 Inactiv e 2023 76234 11145 0 1 time Intrad ermal False DISCONTINUE as of 11/14/2023: Tubersol 5 tub. unit/0.1 mL intradermal injection solution [Tuberculin PPD] 11/13 Inactiv e 2023 95158 71750 0 Tubersol 5 tub. unit/0.1 mL intradermal injection solution 0.1 mL Intradermal 1 time For PPD Step 1 GIVE on Day 1 and read results Day 3 0.1 mL 11/16 Inactiv e 2023 44077 01397 1 1 time Intrad ermal False DISCONTINUE as of 11/14/2023: Tubersol 5 tub. unit/0.1 mL intradermal injection solution [Tuberculin PPD] 11/13 Inactiv e 2023 64726 36493 0 Tubersol 5 tub. unit/0.1 mL intradermal injection solution 0.1mL Intradermal 1 time For PPD 2nd Step Give 2nd Step PPD Day 1 and Read results Day 3 (schedule 7 days after 1st READ) 0.1mL 11/25 Active 2023 93079 27364 1 1 time Intrad ermal False Tylenol 325 mg tablet 2 tabs By Mouth Every 4 hours as needed For Pain DO NOT EXCEED 3000 MG APAP/24 Hours 2 tabs 202300 /0000 Active 2023 92868 26047 0 Every 4 hours as needed By Mouth False Tylenol 325 mg tablet 2 tabs By Mouth Every 4 hours as needed For Fever >100 DO NOT EXCEED 3000 MG APAP/24 Hours 2 tabs 202300 /0000 Active 2023 61221 75902 0 Every 4 hours as needed By Mouth False Dulcolax (bisacodyl) 10 mg rectal suppository One Suppository per rectum PRN if Milk of Magnisia ineffective. Give on day 5 of no BM 1 sup 2023 Active 2023 05231 16685 1 Daily as needed Rectal False Fleet Enema 19 gram-7 gram/118 mL Administer per rectum PRN one time if dulcolax suppository not effective. Give on day 6 of no BM 1 202300 0000 Active 2023 65518 78773 6 Daily as needed Rectal False Dextrose 50 % in water (D50W) intravenous solution [generic] Dextrose 50% reyes 20-50 ml (slow push) Intravenous if Glucagon not effective after 15 minutes. CALL 911 for ED Evaluation. 50% reyes 202300 /0000 Active 2023 99605 98254 9 Intrav enous False Glucagon (HCl) Emergency Kit 1 mg solution for injection Administer Glucagon 1 mg Intramuscular if 15 minutes after GLucose Gel is administered Glucose remains less than 70 1 mg 2023 Active 2023 56531 87820 2 Intram uscula r False Glucose Gel 40 % oral gel [Dextrose] PRN If resident is unable to swallow (with or without symptoms) and Glucose results less than 70 give GLucose 40% Gel 1 tube orally - Recheck Glucose 15 minutes after administratio n. 1 tube 2023 Active 2023 36166 05644 8 By Mouth False Lorazepam 0.5 mg tablet [generic] 0.5 mg By Mouth Every 8 hours as needed For Anxiety 0.5 mg 11/18 Inactiv e 2023 26163 79205 0 Every 8 hours as needed By Mouth False Potassium chloride ER 20 mEq tablet,exte nded release [generic] 40 meq By Mouth Once daily For Hypokalemia 40 meq 11/13 Inactiv e 2023 95546 51619 1 Once daily By Mouth False Colesevelam 625 mg tablet [generic] 1250 mg By Mouth Twice daily For TYPE 2 DIABETES MELLITUS WITHOUT COMPLICATIONS 1250 mg 11/19 Inactiv e 2023 62098 87880 1 Twice daily By Mouth E11.9 False Pioglitazon e 15 mg tablet [generic] 15 mg By Mouth Once daily For TYPE 2 DIABETES MELLITUS WITHOUT COMPLICATIONS 15 mg 11/14 Inactiv e 2023 46891 82379 1 Once daily By Mouth E11.9 False Cholecalcif hardeep (vitamin D3) 50 mcg (2,000 unit) tablet [generic] 50 mcg By Mouth Once daily For Supplement 50 mcg 2023 Active 2023 08048 90617 1 Once daily By Mouth False Colchicine 0.6 mg tablet [generic] 0.6 mg By Mouth Twice daily As Needed For Gout 0.6 mg 2023 Active 2023 19787 88450 4 Twice daily By Mouth False Levothyroxi ne 200 mcg tablet [generic] 200 mcg By Mouth Once daily For Hypothyroidis m 200 mcg 202300 0000 Active 2023 07581 37978 0 Once daily By Mouth False Ondansetron 4 mg disintegrat ing tablet [generic] 4 mg By Mouth Every 6 hours as needed For Nausea 4 mg 11/12 Inactiv e 2023 61842 61773 4 Every 6 hours as needed By Mouth False Docusate sodium 100 mg capsule [generic] 100 mg By Mouth Twice daily For Constipation 100 mg 202300 0000 Active 2023 57666 11434 1 Twice daily By Mouth False Oxycodone 5 mg tablet [generic] 5 mg By Mouth Every 6 hours as needed For Pain 5 mg 11/12 Inactiv e 2023 54076 35461 1 Every 6 hours as needed By Mouth False Oxycodone 5 mg tablet [generic] 5 mg By Mouth Every 6 hours as needed For Pain 5 mg 11/18 Inactiv e 2023 76200 23111 1 Every 6 hours as needed By Mouth False Milk of Magnesia 400 mg/5 mL oral suspension 30 ml By Mouth one time per day as needed if no BM x 3 days For Constipation 30 ml 202300 Active 2023 46469 12952 2 By Mouth False Ondansetron 4 mg disintegrat ing tablet [generic] 11/12 Inactiv e 2023 32935 39900 4 Ondansetron 4 mg disintegrat ing tablet [generic] 4 mg By Mouth Every 6 hours as needed For Nausea 4 mg 11/14 Inactiv e 2023 68545 48387 4 Every 6 hours as needed By Mouth False Potassium chloride ER 10 mEq capsule,ext ended release [generic] 40 mEq By Mouth Once daily For hypokalemia 40 mEq 11/17 Inactiv e 2023 26632 69905 1 Once daily By Mouth False Potassium chloride ER 10 mEq capsule,ext ended release [generic] 4 capsules By Mouth At bedtime For hypokalemia 4 capsule s 11/16 Inactiv e 2023 74716 20117 1 At bedtime By Mouth False Flomax 0.4 mg capsule 0.4 mg By Mouth At bedtime For Urinary retention 0.4 mg 11/18 Inactiv e 2023 14555 06129 1 At bedtime By Mouth False STOOL CULTURE Once daily Obtain stool culture, add C. Diff to routine stool culture For Rule out C. Diff 1x 2023 Active 2023 Once daily Other False Butrans 5 mcg/hour transdermal patch 1 patch Transdermal Every 7 Days For Pain 1 patch 11/20 Inactiv e 2023 01049 46737 4 Every week Transd ermal False Pantoprazol e 40 mg tablet,nu yed release [generic] 40 mg By Mouth Twice daily For gerd 40 mg 2023 Active 2023 84715 03863 0 Twice daily By Mouth False Scopolamine 1 mg over 3 days transdermal patch [generic] 1 Transdermal Every 72 hours For nausea 1 11/20 Inactiv e 2023 50118 10946 4 Every 72 hours Transd ermal False Ondansetron 4 mg disintegrat ing tablet [generic] 11/14 Inactiv e 2023 02682 73074 4 Ondansetron 4 mg disintegrat ing tablet [generic] 4 mg By Mouth Every 8 hours For Nausea 4 mg 2023 Active 2023 20423 75301 4 Every 8 hours By Mouth False Miralax 17 gram oral powder packet 8.5 g (1/2 capful) By Mouth Once daily For constipation 8.5 g 11/18 Inactiv e 2023 90514 13403 6 Once daily By Mouth False Pioglitazon e 15 mg tablet [generic] 11/14 Inactiv e 2023 84739 56664 1 E11.9 Pioglitazon e 15 mg tablet [generic] 7.5mg ( half a tab) By Mouth Once daily For TYPE 2 DIABETES MELLITUS WITHOUT COMPLICATIONS 7.5mg 2023 Active 2023 75625 45123 1 Once daily By Mouth E11.9 False Mylanta Coat-Cool 1,200 mg-270 mg-80 mg/10 mL oral suspension 10 ml By Mouth Every 8 hours As Needed For heartburn, indigestion, gas 10 ml 2023 Active 2023 88379 37043 1 Every 8 hours By Mouth False Prochlorper azine maleate 5 mg tablet [generic] 5 mg By Mouth Every 8 hours as needed For Nausea 5 mg 2023 Active 2023 68268 67065 1 Every 8 hours as needed By Mouth False Potassium chloride ER 10 mEq capsule,ext ended release [generic] 10 meq By Mouth 4 times a day For Hypokalemia 10 meq 11/20 Inactiv e 2023 89115 17729 1 4 times a day By Mouth False Lorazepam 0.5 mg tablet [generic] 11/18 Inactiv e 2023 93268 54983 0 Lorazepam 0.5 mg tablet [generic] 0.5 mg By Mouth Every 8 hours as needed For Anxiety 0.5 mg 12/18 Active 2023 56443 52317 0 Every 8 hours as needed By Mouth False Flomax 0.4 mg capsule 11/18 Inactiv e 2023 76207 55861 1 Flomax 0.4 mg capsule 0.4 mg By Mouth Once daily For Urinary retention 0.4 mg 11/19 Inactiv e 2023 68169 22810 1 Once daily By Mouth False Oxycodone 5 mg tablet [generic] 11/18 Inactiv e 2023 95076 41163 1 Oxycodone 5 mg tablet [generic] 5 mg By Mouth Every 6 hours as needed For Back Pain 5 mg 2023 Active 2023 86023 54078 1 Every 6 hours as needed By Mouth False Cipro 250 mg tablet 250 mg By Mouth Twice daily For UTI 250 mg 11/19 Inactiv e 2023 11092 76629 1 Twice daily By Mouth False Senna 8.6 mg tablet 17.2 mg By Mouth Twice daily For Constipation 17.2 mg 2023 Active 2023 01200 27916 1 Twice daily By Mouth False Zyprexa 2.5 mg tablet 2.5 mg By Mouth At bedtime For persistent nausea 2.5 mg 2023 Active 2023 05046 77635 0 At bedtime By Mouth False MAGNESSIUM GLUCONATE 500mg By Mouth Every morning For Supplement 500mg 2023 Active 2023 Every morning By Mouth False Cipro 250 mg tablet 11/19 Inactiv e 2023 93364 23178 1 Cipro 250 mg tablet 250 mg By Mouth Twice daily For UTI 250 mg 11/26 Active 2023 29671 34848 1 Twice daily By Mouth False Flomax 0.4 mg capsule 11/19 Inactiv e 2023 30302 57230 1 Flomax 0.4 mg capsule 0.4 mg By Mouth Once daily For Urinary retention 0.4 mg 11/20 Inactiv e 2023 09343 70232 1 Once daily By Mouth False Motrin IB 200 mg tablet 600 mg By Mouth Every 12 hours As Needed For Pain 600 mg 11/20 Inactiv e 2023 80632 18312 2 Every 12 hours By Mouth False Motrin IB 200 mg tablet 600 mg By Mouth Every 12 hours As Needed For Pain 600 mg 11/20 Inactiv e 2023 39770 01625 2 Every 12 hours By Mouth False Motrin IB 200 mg tablet 600 mg By Mouth Every 12 hours As Needed For Pain 600 mg 11/27 Active 2023 84918 71321 2 Every 12 hours By Mouth False Flomax 0.4 mg capsule 0.4 mg By Mouth Once daily For Urinary retention 0.4 mg 2023 Active 2023 04631 26462 1 Once daily By Mouth False Scopolamine 1 mg over 3 days transdermal patch [generic] 1 Transdermal Every 72 hours For nausea 1 11/22 Active 2023 11075 04682 4 Every 72 hours Transd ermal False Butrans 7.5 mcg/hour transdermal patch 1 patch Transdermal Every 7 Days For Pain 1 patch 2023 Active 2023 57159 52057 4 Every week Transd ermal False Tizanidine 2 mg tablet [generic] 2mg By Mouth At bedtime For Muscle spasms 2mg 2023 Active 2023 44696 78691 0 At bedtime By Mouth False Prednisone 20 mg tablet [generic] 60 mg By Mouth 1 time For Sciatica Pain 60 mg 11/22 Active 2023 14648 96234 1 1 time By Mouth False Prednisone 20 mg tablet [generic] 40mg By Mouth 1 time For Sciatica Pain 40mg 11/23 Active 2023 93824 41518 1 1 time By Mouth False Prednisone 20 mg tablet [generic] 20mg By Mouth 1 time For Sciatica 20mg 11/24 Active 2023 33298 68036 1 1 time By Mouth False Problems [...] Temperature SpO2 Blood Sugar Pulse Respirations 8 35220 5 75.00 mm[Hg] - Sitting 140.00 mm[Hg] - Sitting 65 NI 98.00 Tympanic 95.00 % 102.00 /min 18.00/min 8 80065 9 14588 918 63999 2 75.00 mm[Hg] - Sitting 140.00 mm[Hg] - Sitting 98.00 Tympanic 102.00 /min 18.00/min 48347 918 58218 3 52522 918 52824 1 72.00 mm[Hg] - Sitting 138.00 mm[Hg] - Sitting 98.40 Tympanic 37806 918 61792 4 88.00/ min 18.00/min 76105 919 34505 4 71.00 mm[Hg] - Sitting 115.00 mm[Hg] - Sitting 98.30 Tympanic 97.00 % 86.00/ min 16.00/min 82127 919 63727 0 71.00 mm[Hg] - Sitting 115.00 mm[Hg] - Sitting 98.30 Tympanic 86.00/ min 16.00/min 54972 919 77446 7 71.00 mm[Hg] - Sitting 115.00 mm[Hg] - Sitting 98.30 Tympanic 86.00/ min 16.00/min 07553 920 33693 6 72.00 mm[Hg] - Sitting 112.00 mm[Hg] - Sitting 98.10 Tympanic 82.00/ min 18.00/min 16339 920 41531 0 75.00 mm[Hg] - Sitting 130.00 mm[Hg] - Sitting 98.40 Forehead Scan 93.00 % 88.00/ min 18.00/min 21318 920 08278 2 75.00 mm[Hg] - Lying Down 130.00 mm[Hg] - Lying Down 98.40 Tympanic 88.00/ min 18.00/min 43892 920 08402 5 75.00 mm[Hg] - Lying Down 130.00 mm[Hg] - Lying Down 98.40 Tympanic 88.00/ min 18.00/min 76300 920 94588 6 199.00 NI 54367 920 48431 3 75.00 mm[Hg] - Sitting 130.00 mm[Hg] - Sitting 98.40 Tympanic 88.00/ min 18.00/min 53363 921 80966 1 71.00 mm[Hg] - Lying Down 119.00 mm[Hg] - Lying Down 98.40 Forehead Scan 96.00 % 83.00/ min 16.00/min 44474 922 35986 6 71.00 mm[Hg] - Lying Down 128.00 mm[Hg] - Lying Down 98.30 Forehead Scan 94.00 % 84.00/ min 18.00/min 39679 923 76940 4 63.00 mm[Hg] - Sitting 105.00 mm[Hg] - Sitting 98.20 Tympanic 93.00 % 93.00/ min 18.00/min 37497 924 68746 8 66.00 mm[Hg] - Sitting 104.00 mm[Hg] - Sitting 98.20 Tympanic 98.00 % 84.00/ min 16.00/min 37157 925 75800 2 131.00 mg/dL 08818 925 27153 6 138.00 mg/dL 70096 926 12634 1 199.00 NI
--- OUTSIDE RECORDS SUMMARY | 2023-12-13 23:55 | External Medical Summary | Continuity Of Care Document ---
Author Name Unknown Address [address] [place] [address] Organization [facility] [place] () Care Team Providers Care Sales Associate Key Holder Name Role Phone DO Parson Amy Primary Care Provider [phone] Allergies Allergy Reaction Start Date End Date [...] 3 0.1 mL 11/13 Inactiv e 2023 55328 37726 0 1 time Intrad ermal False Tubersol 5 tub. unit/0.1 mL intradermal injection solution [Tuberculin PPD] 0.1mL Intradermal 1 time For PPD 2nd Step Give 2nd Step PPD Day 1 and Read results Day 3 (schedule 7 days after 1st READ) 0.1mL 11/13 Inactiv e 2023 23933 02982 0 1 time Intrad ermal False DISCONTINUE as of 11/14/2023: Tubersol 5 tub. unit/0.1 mL intradermal injection solution [Tuberculin PPD] 11/13 Inactiv e 2023 73518 88125 0 Tubersol 5 tub. unit/0.1 mL intradermal injection solution 0.1 mL Intradermal 1 time For PPD Step 1 GIVE on Day 1 and read results Day 3 0.1 mL 11/16 Inactiv e 2023 72595 25129 1 1 time Intrad ermal False DISCONTINUE as of 11/14/2023: Tubersol 5 tub. unit/0.1 mL intradermal injection solution [Tuberculin PPD] 11/13 Inactiv e 2023 61921 03080 0 Tubersol 5 tub. unit/0.1 mL intradermal injection solution 0.1mL Intradermal 1 time For PPD 2nd Step Give 2nd Step PPD Day 1 and Read results Day 3 (schedule 7 days after 1st READ) 0.1mL 11/25 Active 2023 93828 73051 1 1 time Intrad ermal False Tylenol 325 mg tablet 2 tabs By Mouth Every 4 hours as needed For Pain DO NOT EXCEED 3000 MG APAP/24 Hours 2 tabs 202300 /0000 Active 2023 40183 35009 0 Every 4 hours as needed By Mouth False Tylenol 325 mg tablet 2 tabs By Mouth Every 4 hours as needed For Fever >100 DO NOT EXCEED 3000 MG APAP/24 Hours 2 tabs 202300 /0000 Active 2023 42181 36283 0 Every 4 hours as needed By Mouth False Dulcolax (bisacodyl) 10 mg rectal suppository One Suppository per rectum PRN if Milk of Magnisia ineffective. Give on day 5 of no BM 1 sup 2023 Active 2023 97165 16154 1 Daily as needed Rectal False Fleet Enema 19 gram-7 gram/118 mL Administer per rectum PRN one time if dulcolax suppository not effective. Give on day 6 of no BM 1 202300 0000 Active 2023 71204 21918 6 Daily as needed Rectal False Dextrose 50 % in water (D50W) intravenous solution [generic] Dextrose 50% reyes 20-50 ml (slow push) Intravenous if Glucagon not effective after 15 minutes. CALL 911 for ED Evaluation. 50% reyes 202300 /0000 Active 2023 39331 16950 9 Intrav enous False Glucagon (HCl) Emergency Kit 1 mg solution for injection Administer Glucagon 1 mg Intramuscular if 15 minutes after GLucose Gel is administered Glucose remains less than 70 1 mg 2023 Active 2023 56495 63150 2 Intram uscula r False Glucose Gel 40 % oral gel [Dextrose] PRN If resident is unable to swallow (with or without symptoms) and Glucose results less than 70 give GLucose 40% Gel 1 tube orally - Recheck Glucose 15 minutes after administratio n. 1 tube 2023 Active 2023 00077 19059 8 By Mouth False Lorazepam 0.5 mg tablet [generic] 0.5 mg By Mouth Every 8 hours as needed For Anxiety 0.5 mg 11/18 Inactiv e 2023 32774 65418 0 Every 8 hours as needed By Mouth False Potassium chloride ER 20 mEq tablet,exte nded release [generic] 40 meq By Mouth Once daily For Hypokalemia 40 meq 11/13 Inactiv e 2023 20836 46095 1 Once daily By Mouth False Colesevelam 625 mg tablet [generic] 1250 mg By Mouth Twice daily For TYPE 2 DIABETES MELLITUS WITHOUT COMPLICATIONS 1250 mg 11/19 Inactiv e 2023 27523 81821 1 Twice daily By Mouth E11.9 False Pioglitazon e 15 mg tablet [generic] 15 mg By Mouth Once daily For TYPE 2 DIABETES MELLITUS WITHOUT COMPLICATIONS 15 mg 11/14 Inactiv e 2023 91202 92714 1 Once daily By Mouth E11.9 False Cholecalcif hardeep (vitamin D3) 50 mcg (2,000 unit) tablet [generic] 50 mcg By Mouth Once daily For Supplement 50 mcg 2023 Active 2023 81884 46953 1 Once daily By Mouth False Colchicine 0.6 mg tablet [generic] 0.6 mg By Mouth Twice daily As Needed For Gout 0.6 mg 2023 Active 2023 56393 23508 4 Twice daily By Mouth False Levothyroxi ne 200 mcg tablet [generic] 200 mcg By Mouth Once daily For Hypothyroidis m 200 mcg 202300 0000 Active 2023 35247 18096 0 Once daily By Mouth False Ondansetron 4 mg disintegrat ing tablet [generic] 4 mg By Mouth Every 6 hours as needed For Nausea 4 mg 11/12 Inactiv e 2023 08662 90695 4 Every 6 hours as needed By Mouth False Docusate sodium 100 mg capsule [generic] 100 mg By Mouth Twice daily For Constipation 100 mg 202300 0000 Active 2023 87748 64941 1 Twice daily By Mouth False Oxycodone 5 mg tablet [generic] 5 mg By Mouth Every 6 hours as needed For Pain 5 mg 11/12 Inactiv e 2023 37288 03403 1 Every 6 hours as needed By Mouth False Oxycodone 5 mg tablet [generic] 5 mg By Mouth Every 6 hours as needed For Pain 5 mg 11/18 Inactiv e 2023 47752 31056 1 Every 6 hours as needed By Mouth False Milk of Magnesia 400 mg/5 mL oral suspension 30 ml By Mouth one time per day as needed if no BM x 3 days For Constipation 30 ml 202300 Active 2023 48247 88749 2 By Mouth False Ondansetron 4 mg disintegrat ing tablet [generic] 11/12 Inactiv e 2023 80826 76685 4 Ondansetron 4 mg disintegrat ing tablet [generic] 4 mg By Mouth Every 6 hours as needed For Nausea 4 mg 11/14 Inactiv e 2023 77034 26402 4 Every 6 hours as needed By Mouth False Potassium chloride ER 10 mEq capsule,ext ended release [generic] 40 mEq By Mouth Once daily For hypokalemia 40 mEq 11/17 Inactiv e 2023 55395 93634 1 Once daily By Mouth False Potassium chloride ER 10 mEq capsule,ext ended release [generic] 4 capsules By Mouth At bedtime For hypokalemia 4 capsule s 11/16 Inactiv e 2023 02338 38202 1 At bedtime By Mouth False Flomax 0.4 mg capsule 0.4 mg By Mouth At bedtime For Urinary retention 0.4 mg 11/18 Inactiv e 2023 84142 94530 1 At bedtime By Mouth False STOOL CULTURE Once daily Obtain stool culture, add C. Diff to routine stool culture For Rule out C. Diff 1x 2023 Active 2023 Once daily Other False Butrans 5 mcg/hour transdermal patch 1 patch Transdermal Every 7 Days For Pain 1 patch 11/20 Inactiv e 2023 85422 51238 4 Every week Transd ermal False Pantoprazol e 40 mg tablet,nu yed release [generic] 40 mg By Mouth Twice daily For gerd 40 mg 2023 Active 2023 08619 17064 0 Twice daily By Mouth False Scopolamine 1 mg over 3 days transdermal patch [generic] 1 Transdermal Every 72 hours For nausea 1 11/20 Inactiv e 2023 03507 61611 4 Every 72 hours Transd ermal False Ondansetron 4 mg disintegrat ing tablet [generic] 11/14 Inactiv e 2023 53825 48966 4 Ondansetron 4 mg disintegrat ing tablet [generic] 4 mg By Mouth Every 8 hours For Nausea 4 mg 2023 Active 2023 13532 18309 4 Every 8 hours By Mouth False Miralax 17 gram oral powder packet 8.5 g (1/2 capful) By Mouth Once daily For constipation 8.5 g 11/18 Inactiv e 2023 27715 89609 6 Once daily By Mouth False Pioglitazon e 15 mg tablet [generic] 11/14 Inactiv e 2023 65707 86476 1 E11.9 Pioglitazon e 15 mg tablet [generic] 7.5mg ( half a tab) By Mouth Once daily For TYPE 2 DIABETES MELLITUS WITHOUT COMPLICATIONS 7.5mg 2023 Active 2023 78529 39541 1 Once daily By Mouth E11.9 False Mylanta Coat-Cool 1,200 mg-270 mg-80 mg/10 mL oral suspension 10 ml By Mouth Every 8 hours As Needed For heartburn, indigestion, gas 10 ml 2023 Active 2023 07879 26490 1 Every 8 hours By Mouth False Prochlorper azine maleate 5 mg tablet [generic] 5 mg By Mouth Every 8 hours as needed For Nausea 5 mg 2023 Active 2023 98962 01027 1 Every 8 hours as needed By Mouth False Potassium chloride ER 10 mEq capsule,ext ended release [generic] 10 meq By Mouth 4 times a day For Hypokalemia 10 meq 11/20 Inactiv e 2023 29083 80002 1 4 times a day By Mouth False Lorazepam 0.5 mg tablet [generic] 11/18 Inactiv e 2023 12378 02068 0 Lorazepam 0.5 mg tablet [generic] 0.5 mg By Mouth Every 8 hours as needed For Anxiety 0.5 mg 12/18 Active 2023 59335 48115 0 Every 8 hours as needed By Mouth False Flomax 0.4 mg capsule 11/18 Inactiv e 2023 39135 75438 1 Flomax 0.4 mg capsule 0.4 mg By Mouth Once daily For Urinary retention 0.4 mg 11/19 Inactiv e 2023 49037 99467 1 Once daily By Mouth False Oxycodone 5 mg tablet [generic] 11/18 Inactiv e 2023 70375 44170 1 Oxycodone 5 mg tablet [generic] 5 mg By Mouth Every 6 hours as needed For Back Pain 5 mg 2023 Active 2023 31380 81393 1 Every 6 hours as needed By Mouth False Cipro 250 mg tablet 250 mg By Mouth Twice daily For UTI 250 mg 11/19 Inactiv e 2023 39126 37108 1 Twice daily By Mouth False Senna 8.6 mg tablet 17.2 mg By Mouth Twice daily For Constipation 17.2 mg 2023 Active 2023 98156 79894 1 Twice daily By Mouth False Zyprexa 2.5 mg tablet 2.5 mg By Mouth At bedtime For persistent nausea 2.5 mg 2023 Active 2023 78081 57043 0 At bedtime By Mouth False MAGNESSIUM GLUCONATE 500mg By Mouth Every morning For Supplement 500mg 2023 Active 2023 Every morning By Mouth False Cipro 250 mg tablet 11/19 Inactiv e 2023 05750 60693 1 Cipro 250 mg tablet 250 mg By Mouth Twice daily For UTI 250 mg 11/26 Active 2023 46417 68808 1 Twice daily By Mouth False Flomax 0.4 mg capsule 11/19 Inactiv e 2023 93280 30119 1 Flomax 0.4 mg capsule 0.4 mg By Mouth Once daily For Urinary retention 0.4 mg 11/20 Inactiv e 2023 34862 03005 1 Once daily By Mouth False Motrin IB 200 mg tablet 600 mg By Mouth Every 12 hours As Needed For Pain 600 mg 11/20 Inactiv e 2023 90515 85094 2 Every 12 hours By Mouth False Motrin IB 200 mg tablet 600 mg By Mouth Every 12 hours As Needed For Pain 600 mg 11/20 Inactiv e 2023 09938 46795 2 Every 12 hours By Mouth False Motrin IB 200 mg tablet 600 mg By Mouth Every 12 hours As Needed For Pain 600 mg 11/27 Active 2023 96631 30672 2 Every 12 hours By Mouth False Flomax 0.4 mg capsule 0.4 mg By Mouth Once daily For Urinary retention 0.4 mg 11/21 Inactiv e 2023 66469 61151 1 Once daily By Mouth False Scopolamine 1 mg over 3 days transdermal patch [generic] 1 Transdermal Every 72 hours For nausea 1 11/22 Inactiv e 2023 26785 09325 4 Every 72 hours Transd ermal False Butrans 7.5 mcg/hour transdermal patch 1 patch Transdermal Every 7 Days For Pain 1 patch 202300 0000 Active 2023 33597 28702 4 Every week Transd ermal False Tizanidine 2 mg tablet [generic] 2mg By Mouth At bedtime For Muscle spasms 2mg 202300 0000 Active 2023 54255 44584 0 At bedtime By Mouth False Prednisone 20 mg tablet [generic] 60 mg By Mouth 1 time For Sciatica Pain 60 mg 11/22 Inactiv e 2023 29085 06882 1 1 time By Mouth False Prednisone 20 mg tablet [generic] 40mg By Mouth 1 time For Sciatica Pain 40mg 11/23 Active 2023 20980 64196 1 1 time By Mouth False Prednisone 20 mg tablet [generic] 20mg By Mouth 1 time For Sciatica 20mg 11/24 Active 2023 31579 92514 1 1 time By Mouth False ACCU [...] order For Steroid Therapy 11/28 Active 2023 52050 17218 9 Twice daily Subcut aneous False Problems [...] Temperature SpO2 Blood Sugar Pulse Respirations 8 02410 5 75.00 mm[Hg] - Sitting 140.00 mm[Hg] - Sitting 65 NI 98.00 Tympanic 95.00 % 102.00 /min 18.00/min 918 33866 9 918 99947 2 75.00 mm[Hg] - Sitting 140.00 mm[Hg] - Sitting 98.00 Tympanic 102.00 /min 18.00/min 24806 918 81689 3 35560 918 86236 1 72.00 mm[Hg] - Sitting 138.00 mm[Hg] - Sitting 98.40 Tympanic 8 20013 4 88.00/ min 18.00/min 919 76240 4 71.00 mm[Hg] - Sitting 115.00 mm[Hg] - Sitting 98.30 Tympanic 97.00 % 86.00/ min 16.00/min 919 07823 0 71.00 mm[Hg] - Sitting 115.00 mm[Hg] - Sitting 98.30 Tympanic 86.00/ min 16.00/min 09992 919 15046 7 71.00 mm[Hg] - Sitting 115.00 mm[Hg] - Sitting 98.30 Tympanic 86.00/ min 16.00/min 87037 920 48231 6 72.00 mm[Hg] - Sitting 112.00 mm[Hg] - Sitting 98.10 Tympanic 82.00/ min 18.00/min 920 40148 0 75.00 mm[Hg] - Sitting 130.00 mm[Hg] - Sitting 98.40 Forehead Scan 93.00 % 88.00/ min 18.00/min 920 72684 2 75.00 mm[Hg] - Lying Down 130.00 mm[Hg] - Lying Down 98.40 Tympanic 88.00/ min 18.00/min 67901 920 40062 5 75.00 mm[Hg] - Lying Down 130.00 mm[Hg] - Lying Down 98.40 Tympanic 88.00/ min 18.00/min 920 75123 6 199.00 NI 920 51118 3 75.00 mm[Hg] - Sitting 130.00 mm[Hg] - Sitting 98.40 Tympanic 88.00/ min 18.00/min 63318 921 23091 1 71.00 mm[Hg] - Lying Down 119.00 mm[Hg] - Lying Down 98.40 Forehead Scan 96.00 % 83.00/ min 16.00/min 72684 922 96650 6 71.00 mm[Hg] - Lying Down 128.00 mm[Hg] - Lying Down 98.30 Forehead Scan 94.00 % 84.00/ min 18.00/min 45366 923 70962 4 63.00 mm[Hg] - Sitting 105.00 mm[Hg] - Sitting 98.20 Tympanic 93.00 % 93.00/ min 18.00/min 72036 924 68438 8 66.00 mm[Hg] - Sitting 104.00 mm[Hg] - Sitting 98.20 Tympanic 98.00 % 84.00/ min 16.00/min 52656 925 23269 2 131.00 mg/dL 04423 925 48179 6 138.00 mg/dL 32040 926 39558 1 199.00 NI [address]390 927 43496 7 98.40 Tympanic 84435 927 07291 0 78.00 mm[Hg] - Sitting 124.00 mm[Hg] - Sitting 98.30 Forehead Scan 95.00 % 83.00/ min 16.00/min 30913 927 30016 7 98.10 Tympanic 35404 928 21490 9 60.00 mm[Hg] - Sitting 99.00 mm[Hg] - Sitting 98.20 Tympanic 91.00 % 64.00/ min 16.00/min 65802 928 23491 0 98.40 Tympanic
--- OUTSIDE RECORDS SUMMARY | 2023-12-13 23:56 | External Medical Summary | Continuity Of Care Document ---
Author Name Unknown Address [address] [place] [address] Organization [facility] [place] () Care Team Providers Care Fashion Consultant Name Role Phone DO Parson Amy Primary Care Provider [phone] Allergies Allergy Reaction Start Date End Date [...] 3 0.1 mL 11/13 Inactiv e 2023 29066 55002 0 1 time Intrad ermal False Tubersol 5 tub. unit/0.1 mL intradermal injection solution [Tuberculin PPD] 0.1mL Intradermal 1 time For PPD 2nd Step Give 2nd Step PPD Day 1 and Read results Day 3 (schedule 7 days after 1st READ) 0.1mL 11/13 Inactiv e 2023 49540 61320 0 1 time Intrad ermal False DISCONTINUE as of 11/14/2023: Tubersol 5 tub. unit/0.1 mL intradermal injection solution [Tuberculin PPD] 11/13 Inactiv e 2023 21183 77886 0 Tubersol 5 tub. unit/0.1 mL intradermal injection solution 0.1 mL Intradermal 1 time For PPD Step 1 GIVE on Day 1 and read results Day 3 0.1 mL 11/16 Inactiv e 2023 64300 26558 1 1 time Intrad ermal False DISCONTINUE as of 11/14/2023: Tubersol 5 tub. unit/0.1 mL intradermal injection solution [Tuberculin PPD] 11/13 Inactiv e 2023 91999 86282 0 Tubersol 5 tub. unit/0.1 mL intradermal injection solution 0.1mL Intradermal 1 time For PPD 2nd Step Give 2nd Step PPD Day 1 and Read results Day 3 (schedule 7 days after 1st READ) 0.1mL 11/25 Active 2023 87832 61667 1 1 time Intrad ermal False Tylenol 325 mg tablet 2 tabs By Mouth Every 4 hours as needed For Pain DO NOT EXCEED 3000 MG APAP/24 Hours 2 tabs 202300 /0000 Active 2023 48609 84177 0 Every 4 hours as needed By Mouth False Tylenol 325 mg tablet 2 tabs By Mouth Every 4 hours as needed For Fever >100 DO NOT EXCEED 3000 MG APAP/24 Hours 2 tabs 202300 /0000 Active 2023 77463 58929 0 Every 4 hours as needed By Mouth False Dulcolax (bisacodyl) 10 mg rectal suppository One Suppository per rectum PRN if Milk of Magnisia ineffective. Give on day 5 of no BM 1 sup 2023 Active 2023 09430 39976 1 Daily as needed Rectal False Fleet Enema 19 gram-7 gram/118 mL Administer per rectum PRN one time if dulcolax suppository not effective. Give on day 6 of no BM 1 202300 0000 Active 2023 69747 22148 6 Daily as needed Rectal False Dextrose 50 % in water (D50W) intravenous solution [generic] Dextrose 50% reyes 20-50 ml (slow push) Intravenous if Glucagon not effective after 15 minutes. CALL 911 for ED Evaluation. 50% reyes 202300 /0000 Active 2023 52084 63086 9 Intrav enous False Glucagon (HCl) Emergency Kit 1 mg solution for injection Administer Glucagon 1 mg Intramuscular if 15 minutes after GLucose Gel is administered Glucose remains less than 70 1 mg 2023 Active 2023 78026 66693 2 Intram uscula r False Glucose Gel 40 % oral gel [Dextrose] PRN If resident is unable to swallow (with or without symptoms) and Glucose results less than 70 give GLucose 40% Gel 1 tube orally - Recheck Glucose 15 minutes after administratio n. 1 tube 2023 Active 2023 17462 80839 8 By Mouth False Lorazepam 0.5 mg tablet [generic] 0.5 mg By Mouth Every 8 hours as needed For Anxiety 0.5 mg 11/18 Inactiv e 2023 00368 66076 0 Every 8 hours as needed By Mouth False Potassium chloride ER 20 mEq tablet,exte nded release [generic] 40 meq By Mouth Once daily For Hypokalemia 40 meq 11/13 Inactiv e 2023 73182 66860 1 Once daily By Mouth False Colesevelam 625 mg tablet [generic] 1250 mg By Mouth Twice daily For TYPE 2 DIABETES MELLITUS WITHOUT COMPLICATIONS 1250 mg 11/19 Inactiv e 2023 93369 82097 1 Twice daily By Mouth E11.9 False Pioglitazon e 15 mg tablet [generic] 15 mg By Mouth Once daily For TYPE 2 DIABETES MELLITUS WITHOUT COMPLICATIONS 15 mg 11/14 Inactiv e 2023 52606 46484 1 Once daily By Mouth E11.9 False Cholecalcif hardeep (vitamin D3) 50 mcg (2,000 unit) tablet [generic] 50 mcg By Mouth Once daily For Supplement 50 mcg 2023 Active 2023 15606 70157 1 Once daily By Mouth False Colchicine 0.6 mg tablet [generic] 0.6 mg By Mouth Twice daily As Needed For Gout 0.6 mg 2023 Active 2023 95108 42621 4 Twice daily By Mouth False Levothyroxi ne 200 mcg tablet [generic] 200 mcg By Mouth Once daily For Hypothyroidis m 200 mcg 202300 0000 Active 2023 48263 34178 0 Once daily By Mouth False Ondansetron 4 mg disintegrat ing tablet [generic] 4 mg By Mouth Every 6 hours as needed For Nausea 4 mg 11/12 Inactiv e 2023 00043 31801 4 Every 6 hours as needed By Mouth False Docusate sodium 100 mg capsule [generic] 100 mg By Mouth Twice daily For Constipation 100 mg 202300 0000 Active 2023 00700 20762 1 Twice daily By Mouth False Oxycodone 5 mg tablet [generic] 5 mg By Mouth Every 6 hours as needed For Pain 5 mg 11/12 Inactiv e 2023 76187 20671 1 Every 6 hours as needed By Mouth False Oxycodone 5 mg tablet [generic] 5 mg By Mouth Every 6 hours as needed For Pain 5 mg 11/18 Inactiv e 2023 83477 28722 1 Every 6 hours as needed By Mouth False Milk of Magnesia 400 mg/5 mL oral suspension 30 ml By Mouth one time per day as needed if no BM x 3 days For Constipation 30 ml 202300 Active 2023 20656 49761 2 By Mouth False Ondansetron 4 mg disintegrat ing tablet [generic] 11/12 Inactiv e 2023 79120 56458 4 Ondansetron 4 mg disintegrat ing tablet [generic] 4 mg By Mouth Every 6 hours as needed For Nausea 4 mg 11/14 Inactiv e 2023 50139 98937 4 Every 6 hours as needed By Mouth False Potassium chloride ER 10 mEq capsule,ext ended release [generic] 40 mEq By Mouth Once daily For hypokalemia 40 mEq 11/17 Inactiv e 2023 02689 11488 1 Once daily By Mouth False Potassium chloride ER 10 mEq capsule,ext ended release [generic] 4 capsules By Mouth At bedtime For hypokalemia 4 capsule s 11/16 Inactiv e 2023 06572 45001 1 At bedtime By Mouth False Flomax 0.4 mg capsule 0.4 mg By Mouth At bedtime For Urinary retention 0.4 mg 11/18 Inactiv e 2023 37196 13350 1 At bedtime By Mouth False STOOL CULTURE Once daily Obtain stool culture, add C. Diff to routine stool culture For Rule out C. Diff 1x 2023 Active 2023 Once daily Other False Butrans 5 mcg/hour transdermal patch 1 patch Transdermal Every 7 Days For Pain 1 patch 11/20 Inactiv e 2023 64317 21918 4 Every week Transd ermal False Pantoprazol e 40 mg tablet,nu yed release [generic] 40 mg By Mouth Twice daily For gerd 40 mg 2023 Active 2023 09052 40303 0 Twice daily By Mouth False Scopolamine 1 mg over 3 days transdermal patch [generic] 1 Transdermal Every 72 hours For nausea 1 11/20 Inactiv e 2023 23007 62778 4 Every 72 hours Transd ermal False Ondansetron 4 mg disintegrat ing tablet [generic] 11/14 Inactiv e 2023 01370 57221 4 Ondansetron 4 mg disintegrat ing tablet [generic] 4 mg By Mouth Every 8 hours For Nausea 4 mg 2023 Active 2023 57042 29729 4 Every 8 hours By Mouth False Miralax 17 gram oral powder packet 8.5 g (1/2 capful) By Mouth Once daily For constipation 8.5 g 11/18 Inactiv e 2023 42799 78217 6 Once daily By Mouth False Pioglitazon e 15 mg tablet [generic] 11/14 Inactiv e 2023 37974 94255 1 E11.9 Pioglitazon e 15 mg tablet [generic] 7.5mg ( half a tab) By Mouth Once daily For TYPE 2 DIABETES MELLITUS WITHOUT COMPLICATIONS 7.5mg 2023 Active 2023 44624 54789 1 Once daily By Mouth E11.9 False Mylanta Coat-Cool 1,200 mg-270 mg-80 mg/10 mL oral suspension 10 ml By Mouth Every 8 hours As Needed For heartburn, indigestion, gas 10 ml 2023 Active 2023 73502 81143 1 Every 8 hours By Mouth False Prochlorper azine maleate 5 mg tablet [generic] 5 mg By Mouth Every 8 hours as needed For Nausea 5 mg 2023 Active 2023 26991 41562 1 Every 8 hours as needed By Mouth False Potassium chloride ER 10 mEq capsule,ext ended release [generic] 10 meq By Mouth 4 times a day For Hypokalemia 10 meq 11/20 Inactiv e 2023 94749 24245 1 4 times a day By Mouth False Lorazepam 0.5 mg tablet [generic] 11/18 Inactiv e 2023 35046 47861 0 Lorazepam 0.5 mg tablet [generic] 0.5 mg By Mouth Every 8 hours as needed For Anxiety 0.5 mg 12/18 Active 2023 93576 30011 0 Every 8 hours as needed By Mouth False Flomax 0.4 mg capsule 11/18 Inactiv e 2023 00818 37435 1 Flomax 0.4 mg capsule 0.4 mg By Mouth Once daily For Urinary retention 0.4 mg 11/19 Inactiv e 2023 38538 42973 1 Once daily By Mouth False Oxycodone 5 mg tablet [generic] 11/18 Inactiv e 2023 84291 68756 1 Oxycodone 5 mg tablet [generic] 5 mg By Mouth Every 6 hours as needed For Back Pain 5 mg 2023 Active 2023 48658 87811 1 Every 6 hours as needed By Mouth False Cipro 250 mg tablet 250 mg By Mouth Twice daily For UTI 250 mg 11/19 Inactiv e 2023 41865 78794 1 Twice daily By Mouth False Senna 8.6 mg tablet 17.2 mg By Mouth Twice daily For Constipation 17.2 mg 2023 Active 2023 14469 49168 1 Twice daily By Mouth False Zyprexa 2.5 mg tablet 2.5 mg By Mouth At bedtime For persistent nausea 2.5 mg 2023 Active 2023 09462 30534 0 At bedtime By Mouth False MAGNESSIUM GLUCONATE 500mg By Mouth Every morning For Supplement 500mg 2023 Active 2023 Every morning By Mouth False Cipro 250 mg tablet 11/19 Inactiv e 2023 72350 23799 1 Cipro 250 mg tablet 250 mg By Mouth Twice daily For UTI 250 mg 11/26 Active 2023 76450 05729 1 Twice daily By Mouth False Flomax 0.4 mg capsule 11/19 Inactiv e 2023 43958 74564 1 Flomax 0.4 mg capsule 0.4 mg By Mouth Once daily For Urinary retention 0.4 mg 11/20 Inactiv e 2023 74241 66123 1 Once daily By Mouth False Motrin IB 200 mg tablet 600 mg By Mouth Every 12 hours As Needed For Pain 600 mg 11/20 Inactiv e 2023 32993 60695 2 Every 12 hours By Mouth False Motrin IB 200 mg tablet 600 mg By Mouth Every 12 hours As Needed For Pain 600 mg 11/20 Inactiv e 2023 38470 11646 2 Every 12 hours By Mouth False Motrin IB 200 mg tablet 600 mg By Mouth Every 12 hours As Needed For Pain 600 mg 11/27 Active 2023 29101 68449 2 Every 12 hours By Mouth False Flomax 0.4 mg capsule 0.4 mg By Mouth Once daily For Urinary retention 0.4 mg 2023 Active 2023 27019 30150 1 Once daily By Mouth False Scopolamine 1 mg over 3 days transdermal patch [generic] 1 Transdermal Every 72 hours For nausea 1 11/22 Active 2023 13321 87408 4 Every 72 hours Transd ermal False Butrans 7.5 mcg/hour transdermal patch 1 patch Transdermal Every 7 Days For Pain 1 patch 2023 Active 2023 51942 92085 4 Every week Transd ermal False Problems Code Description Start Date End [...] Temperature SpO2 Blood Sugar Pulse Respirations 8 61537 5 75.00 mm[Hg] - Sitting 140.00 mm[Hg] - Sitting 65 NI 98.00 Tympanic 95.00 % 102.00 /min 18.00/min 28177 918 53515 9 918 39637 2 75.00 mm[Hg] - Sitting 140.00 mm[Hg] - Sitting 98.00 Tympanic 102.00 /min 18.00/min 50069 918 88091 3 50701 918 33307 1 72.00 mm[Hg] - Sitting 138.00 mm[Hg] - Sitting 98.40 Tympanic 918 82319 4 88.00/ min 18.00/min 919 20786 4 71.00 mm[Hg] - Sitting 115.00 mm[Hg] - Sitting 98.30 Tympanic 97.00 % 86.00/ min 16.00/min 18079 919 70274 0 71.00 mm[Hg] - Sitting 115.00 mm[Hg] - Sitting 98.30 Tympanic 86.00/ min 16.00/min 77138 919 49132 7 71.00 mm[Hg] - Sitting 115.00 mm[Hg] - Sitting 98.30 Tympanic 86.00/ min 16.00/min 22630 920 10005 6 72.00 mm[Hg] - Sitting 112.00 mm[Hg] - Sitting 98.10 Tympanic 82.00/ min 18.00/min 70943 920 18128 0 75.00 mm[Hg] - Sitting 130.00 mm[Hg] - Sitting 98.40 Forehead Scan 93.00 % 88.00/ min 18.00/min 32885 920 34026 2 75.00 mm[Hg] - Lying Down 130.00 mm[Hg] - Lying Down 98.40 Tympanic 88.00/ min 18.00/min 12646 920 99508 5 75.00 mm[Hg] - Lying Down 130.00 mm[Hg] - Lying Down 98.40 Tympanic 88.00/ min 18.00/min 83535 920 43026 6 199.00 NI 920 02526 3 75.00 mm[Hg] - Sitting 130.00 mm[Hg] - Sitting 98.40 Tympanic 88.00/ min 18.00/min 17937 921 28702 1 71.00 mm[Hg] - Lying Down 119.00 mm[Hg] - Lying Down 98.40 Forehead Scan 96.00 % 83.00/ min 16.00/min 82214 922 76000 6 71.00 mm[Hg] - Lying Down 128.00 mm[Hg] - Lying Down 98.30 Forehead Scan 94.00 % 84.00/ min 18.00/min 99734 923 47223 4 63.00 mm[Hg] - Sitting 105.00 mm[Hg] - Sitting 98.20 Tympanic 93.00 % 93.00/ min 18.00/min 32368 924 82844 8 66.00 mm[Hg] - Sitting 104.00 mm[Hg] - Sitting 98.20 Tympanic 98.00 % 84.00/ min 16.00/min 07533 925 88237 2 131.00 mg/dL 49143 925 30263 6 138.00 mg/dL 54080 926 74496 1 199.00 NI
--- OUTSIDE RECORDS SUMMARY | 2023-12-13 23:56 | External Medical Summary | Continuity Of Care Document ---
Author Name Unknown Address [address] [place] [address] Organization [facility] () Care Team Providers Care District Sales Leader Name Role Phone DO Parson Amy Primary Care Provider [phone] Allergies Allergy Reaction Start Date End Date [...] 3 0.1 mL 11/13 Inactiv e 2023 48586 83484 0 1 time Intrad ermal False Tubersol 5 tub. unit/0.1 mL intradermal injection solution [Tuberculin PPD] 0.1mL Intradermal 1 time For PPD 2nd Step Give 2nd Step PPD Day 1 and Read results Day 3 (schedule 7 days after 1st READ) 0.1mL 11/13 Inactiv e 2023 72529 49999 0 1 time Intrad ermal False DISCONTINUE as of 11/14/2023: Tubersol 5 tub. unit/0.1 mL intradermal injection solution [Tuberculin PPD] 11/13 Inactiv e 2023 26323 43540 0 Tubersol 5 tub. unit/0.1 mL intradermal injection solution 0.1 mL Intradermal 1 time For PPD Step 1 GIVE on Day 1 and read results Day 3 0.1 mL 11/16 Inactiv e 2023 04100 81173 1 1 time Intrad ermal False DISCONTINUE as of 11/14/2023: Tubersol 5 tub. unit/0.1 mL intradermal injection solution [Tuberculin PPD] 11/13 Inactiv e 2023 24125 82981 0 Tubersol 5 tub. unit/0.1 mL intradermal injection solution 0.1mL Intradermal 1 time For PPD 2nd Step Give 2nd Step PPD Day 1 and Read results Day 3 (schedule 7 days after 1st READ) 0.1mL 11/25 Active 2023 06043 88234 1 1 time Intrad ermal False Tylenol 325 mg tablet 2 tabs By Mouth Every 4 hours as needed For Pain DO NOT EXCEED 3000 MG APAP/24 Hours 2 tabs 202300 /0000 Active 2023 94700 67724 0 Every 4 hours as needed By Mouth False Tylenol 325 mg tablet 2 tabs By Mouth Every 4 hours as needed For Fever >100 DO NOT EXCEED 3000 MG APAP/24 Hours 2 tabs 202300 /0000 Active 2023 61375 48342 0 Every 4 hours as needed By Mouth False Dulcolax (bisacodyl) 10 mg rectal suppository One Suppository per rectum PRN if Milk of Magnisia ineffective. Give on day 5 of no BM 1 sup 2023 Active 2023 78660 08680 1 Daily as needed Rectal False Fleet Enema 19 gram-7 gram/118 mL Administer per rectum PRN one time if dulcolax suppository not effective. Give on day 6 of no BM 1 202300 0000 Active 2023 75916 17033 6 Daily as needed Rectal False Dextrose 50 % in water (D50W) intravenous solution [generic] Dextrose 50% reyes 20-50 ml (slow push) Intravenous if Glucagon not effective after 15 minutes. CALL 911 for ED Evaluation. 50% reyes 202300 /0000 Active 2023 63134 42285 9 Intrav enous False Glucagon (HCl) Emergency Kit 1 mg solution for injection Administer Glucagon 1 mg Intramuscular if 15 minutes after GLucose Gel is administered Glucose remains less than 70 1 mg 2023 Active 2023 47813 52875 2 Intram uscula r False Glucose Gel 40 % oral gel [Dextrose] PRN If resident is unable to swallow (with or without symptoms) and Glucose results less than 70 give GLucose 40% Gel 1 tube orally - Recheck Glucose 15 minutes after administratio n. 1 tube 2023 Active 2023 90244 04366 8 By Mouth False Lorazepam 0.5 mg tablet [generic] 0.5 mg By Mouth Every 8 hours as needed For Anxiety 0.5 mg 11/18 Inactiv e 2023 11984 77943 0 Every 8 hours as needed By Mouth False Potassium chloride ER 20 mEq tablet,exte nded release [generic] 40 meq By Mouth Once daily For Hypokalemia 40 meq 11/13 Inactiv e 2023 72492 91055 1 Once daily By Mouth False Colesevelam 625 mg tablet [generic] 1250 mg By Mouth Twice daily For TYPE 2 DIABETES MELLITUS WITHOUT COMPLICATIONS 1250 mg 11/19 Inactiv e 2023 75546 06897 1 Twice daily By Mouth E11.9 False Pioglitazon e 15 mg tablet [generic] 15 mg By Mouth Once daily For TYPE 2 DIABETES MELLITUS WITHOUT COMPLICATIONS 15 mg 11/14 Inactiv e 2023 69187 82969 1 Once daily By Mouth E11.9 False Cholecalcif hardeep (vitamin D3) 50 mcg (2,000 unit) tablet [generic] 50 mcg By Mouth Once daily For Supplement 50 mcg 2023 Active 2023 78341 72409 1 Once daily By Mouth False Colchicine 0.6 mg tablet [generic] 0.6 mg By Mouth Twice daily As Needed For Gout 0.6 mg 2023 Active 2023 96414 78371 4 Twice daily By Mouth False Levothyroxi ne 200 mcg tablet [generic] 200 mcg By Mouth Once daily For Hypothyroidis m 200 mcg 202300 0000 Active 2023 03142 36409 0 Once daily By Mouth False Ondansetron 4 mg disintegrat ing tablet [generic] 4 mg By Mouth Every 6 hours as needed For Nausea 4 mg 11/12 Inactiv e 2023 13572 64523 4 Every 6 hours as needed By Mouth False Docusate sodium 100 mg capsule [generic] 100 mg By Mouth Twice daily For Constipation 100 mg 202300 0000 Active 2023 12118 51155 1 Twice daily By Mouth False Oxycodone 5 mg tablet [generic] 5 mg By Mouth Every 6 hours as needed For Pain 5 mg 11/12 Inactiv e 2023 46650 03712 1 Every 6 hours as needed By Mouth False Oxycodone 5 mg tablet [generic] 5 mg By Mouth Every 6 hours as needed For Pain 5 mg 11/18 Inactiv e 2023 10538 92890 1 Every 6 hours as needed By Mouth False Milk of Magnesia 400 mg/5 mL oral suspension 30 ml By Mouth one time per day as needed if no BM x 3 days For Constipation 30 ml 202300 Active 2023 57616 98089 2 By Mouth False Ondansetron 4 mg disintegrat ing tablet [generic] 11/12 Inactiv e 2023 31450 45004 4 Ondansetron 4 mg disintegrat ing tablet [generic] 4 mg By Mouth Every 6 hours as needed For Nausea 4 mg 11/14 Inactiv e 2023 84339 45656 4 Every 6 hours as needed By Mouth False Potassium chloride ER 10 mEq capsule,ext ended release [generic] 40 mEq By Mouth Once daily For hypokalemia 40 mEq 11/17 Inactiv e 2023 10622 55945 1 Once daily By Mouth False Potassium chloride ER 10 mEq capsule,ext ended release [generic] 4 capsules By Mouth At bedtime For hypokalemia 4 capsule s 11/16 Inactiv e 2023 65194 22500 1 At bedtime By Mouth False Flomax 0.4 mg capsule 0.4 mg By Mouth At bedtime For Urinary retention 0.4 mg 11/18 Inactiv e 2023 99629 04222 1 At bedtime By Mouth False STOOL CULTURE Once daily Obtain stool culture, add C. Diff to routine stool culture For Rule out C. Diff 1x 2023 Active 2023 Once daily Other False Butrans 5 mcg/hour transdermal patch 1 patch Transdermal Every 7 Days For Pain 1 patch 2023 Active 2023 24750 28863 4 Every week Transd ermal False Pantoprazol e 40 mg tablet,nu yed release [generic] 40 mg By Mouth Twice daily For gerd 40 mg 2023 Active 2023 82335 34913 0 Twice daily By Mouth False Scopolamine 1 mg over 3 days transdermal patch [generic] 1 Transdermal Every 72 hours For nausea 1 11/21 Active 2023 24963 70842 4 Every 72 hours Transd ermal False Ondansetron 4 mg disintegrat ing tablet [generic] 11/14 Inactiv e 2023 29418 68448 4 Ondansetron 4 mg disintegrat ing tablet [generic] 4 mg By Mouth Every 8 hours For Nausea 4 mg 2023 Active 2023 84587 40443 4 Every 8 hours By Mouth False Miralax 17 gram oral powder packet 8.5 g (1/2 capful) By Mouth Once daily For constipation 8.5 g 11/18 Inactiv e 2023 21065 46967 6 Once daily By Mouth False Pioglitazon e 15 mg tablet [generic] 11/14 Inactiv e 2023 03191 95076 1 E11.9 Pioglitazon e 15 mg tablet [generic] 7.5mg ( half a tab) By Mouth Once daily For TYPE 2 DIABETES MELLITUS WITHOUT COMPLICATIONS 7.5mg 2023 Active 2023 96168 68092 1 Once daily By Mouth E11.9 False Mylanta Coat-Cool 1,200 mg-270 mg-80 mg/10 mL oral suspension 10 ml By Mouth Every 8 hours As Needed For heartburn, indigestion, gas 10 ml 2023 Active 2023 90453 00500 1 Every 8 hours By Mouth False Prochlorper azine maleate 5 mg tablet [generic] 5 mg By Mouth Every 8 hours as needed For Nausea 5 mg 2023 Active 2023 75062 25722 1 Every 8 hours as needed By Mouth False Potassium chloride ER 10 mEq capsule,ext ended release [generic] 10 meq By Mouth 4 times a day For Hypokalemia 10 meq 2023 Active 2023 87502 05877 1 4 times a day By Mouth False Lorazepam 0.5 mg tablet [generic] 11/18 Inactiv e 2023 14784 35270 0 Lorazepam 0.5 mg tablet [generic] 0.5 mg By Mouth Every 8 hours as needed For Anxiety 0.5 mg 12/18 Active 2023 94948 08412 0 Every 8 hours as needed By Mouth False Flomax 0.4 mg capsule 11/18 Inactiv e 2023 54419 20842 1 Flomax 0.4 mg capsule 0.4 mg By Mouth Once daily For Urinary retention 0.4 mg 2023 Active 2023 85787 12279 1 Once daily By Mouth False Oxycodone 5 mg tablet [generic] 11/18 Inactiv e 2023 08719 76724 1 Oxycodone 5 mg tablet [generic] 5 mg By Mouth Every 6 hours as needed For Back Pain 5 mg 2023 Active 2023 77519 80042 1 Every 6 hours as needed By Mouth False Cipro 250 mg tablet 250 mg By Mouth Twice daily For UTI 250 mg 11/19 Inactiv e 2023 52827 92491 1 Twice daily By Mouth False Senna 8.6 mg tablet 17.2 mg By Mouth Twice daily For Constipation 17.2 mg 2023 Active 2023 65523 81265 1 Twice daily By Mouth False Zyprexa 2.5 mg tablet 2.5 mg By Mouth At bedtime For persistent nausea 2.5 mg 2023 Active 2023 98084 32274 0 At bedtime By Mouth False MAGNESSIUM GLUCONATE 500mg By Mouth Every morning For Supplement 500mg 2023 Active 2023 Every morning By Mouth False Cipro 250 mg tablet 11/19 Inactiv e 2023 35425 69332 1 Cipro 250 mg tablet 250 mg By Mouth Twice daily For UTI 250 mg 11/26 Active 2023 61908 07859 1 Twice daily By Mouth False Problems Code Description Start [...] weight Temperature SpO2 Blood Sugar Pulse Respirations 23728 5 75.00 mm[Hg] - Sitting 140.00 mm[Hg] - Sitting 65 NI 98.00 Tympanic 95.00 % 102.00 /min 18.00/min 8 95431 9 918 20442 2 75.00 mm[Hg] - Sitting 140.00 mm[Hg] - Sitting 98.00 Tympanic 102.00 /min 18.00/min 95036 918 81069 3 00758 918 14390 1 72.00 mm[Hg] - Sitting 138.00 mm[Hg] - Sitting 98.40 Tympanic 66574 918 86756 4 88.00/ min 18.00/min 94071 919 24395 4 71.00 mm[Hg] - Sitting 115.00 mm[Hg] - Sitting 98.30 Tympanic 97.00 % 86.00/ min 16.00/min 94855 919 62514 0 71.00 mm[Hg] - Sitting 115.00 mm[Hg] - Sitting 98.30 Tympanic 86.00/ min 16.00/min 72931 919 25398 7 71.00 mm[Hg] - Sitting 115.00 mm[Hg] - Sitting 98.30 Tympanic 86.00/ min 16.00/min 60727 920 66010 6 72.00 mm[Hg] - Sitting 112.00 mm[Hg] - Sitting 98.10 Tympanic 82.00/ min 18.00/min 38896 920 27179 0 75.00 mm[Hg] - Sitting 130.00 mm[Hg] - Sitting 98.40 Forehead Scan 93.00 % 88.00/ min 18.00/min 27358 920 12583 2 75.00 mm[Hg] - Lying Down 130.00 mm[Hg] - Lying Down 98.40 Tympanic 88.00/ min 18.00/min 50615 920 73977 5 75.00 mm[Hg] - Lying Down 130.00 mm[Hg] - Lying Down 98.40 Tympanic 88.00/ min 18.00/min 06318 920 14032 6 199.00 NI 920 93027 3 75.00 mm[Hg] - Sitting 130.00 mm[Hg] - Sitting 98.40 Tympanic 88.00/ min 18.00/min 24422 921 87687 1 71.00 mm[Hg] - Lying Down 119.00 mm[Hg] - Lying Down 98.40 Forehead Scan 96.00 % 83.00/ min 16.00/min 922 04860 6 71.00 mm[Hg] - Lying Down 128.00 mm[Hg] - Lying Down 98.30 Forehead Scan 94.00 % 84.00/ min 18.00/min 43346 923 72917 4 63.00 mm[Hg] - Sitting 105.00 mm[Hg] - Sitting 98.20 Tympanic 93.00 % 93.00/ min 18.00/min 924 85354 8 66.00 mm[Hg] - Sitting 104.00 mm[Hg] - Sitting 98.20 Tympanic 98.00 % 84.00/ min 16.00/min 27581 925 03244 2 131.00 mg/dL 925 36708 6 138.00 mg/dL
--- OUTSIDE RECORDS SUMMARY | 2023-12-13 23:56 | External Medical Summary | Continuity Of Care Document ---
Author Name Unknown Address [address] [place] [address] Organization [facility] () Care Team Providers Care Cigar Head Holer Name Role Phone DO Parson Amy Primary Care Provider [phone] Allergies Allergy Reaction Start Date End Date [...] 3 0.1 mL 11/13 Inactiv e 2023 52402 23320 0 1 time Intrad ermal False Tubersol 5 tub. unit/0.1 mL intradermal injection solution [Tuberculin PPD] 0.1mL Intradermal 1 time For PPD 2nd Step Give 2nd Step PPD Day 1 and Read results Day 3 (schedule 7 days after 1st READ) 0.1mL 11/13 Inactiv e 2023 80044 43411 0 1 time Intrad ermal False DISCONTINUE as of 11/14/2023: Tubersol 5 tub. unit/0.1 mL intradermal injection solution [Tuberculin PPD] 11/13 Inactiv e 2023 90780 24091 0 Tubersol 5 tub. unit/0.1 mL intradermal injection solution 0.1 mL Intradermal 1 time For PPD Step 1 GIVE on Day 1 and read results Day 3 0.1 mL 11/16 Inactiv e 2023 74939 70544 1 1 time Intrad ermal False DISCONTINUE as of 11/14/2023: Tubersol 5 tub. unit/0.1 mL intradermal injection solution [Tuberculin PPD] 11/13 Inactiv e 2023 52636 78955 0 Tubersol 5 tub. unit/0.1 mL intradermal injection solution 0.1mL Intradermal 1 time For PPD 2nd Step Give 2nd Step PPD Day 1 and Read results Day 3 (schedule 7 days after 1st READ) 0.1mL 11/25 Active 2023 98848 32240 1 1 time Intrad ermal False Tylenol 325 mg tablet 2 tabs By Mouth Every 4 hours as needed For Pain DO NOT EXCEED 3000 MG APAP/24 Hours 2 tabs 202300 /0000 Active 2023 38396 91738 0 Every 4 hours as needed By Mouth False Tylenol 325 mg tablet 2 tabs By Mouth Every 4 hours as needed For Fever >100 DO NOT EXCEED 3000 MG APAP/24 Hours 2 tabs 202300 /0000 Active 2023 83987 08683 0 Every 4 hours as needed By Mouth False Dulcolax (bisacodyl) 10 mg rectal suppository One Suppository per rectum PRN if Milk of Magnisia ineffective. Give on day 5 of no BM 1 sup 2023 Active 2023 08581 90895 1 Daily as needed Rectal False Fleet Enema 19 gram-7 gram/118 mL Administer per rectum PRN one time if dulcolax suppository not effective. Give on day 6 of no BM 1 202300 0000 Active 2023 19376 10438 6 Daily as needed Rectal False Dextrose 50 % in water (D50W) intravenous solution [generic] Dextrose 50% reyes 20-50 ml (slow push) Intravenous if Glucagon not effective after 15 minutes. CALL 911 for ED Evaluation. 50% reyes 202300 /0000 Active 2023 48174 56793 9 Intrav enous False Glucagon (HCl) Emergency Kit 1 mg solution for injection Administer Glucagon 1 mg Intramuscular if 15 minutes after GLucose Gel is administered Glucose remains less than 70 1 mg 2023 Active 2023 26377 94293 2 Intram uscula r False Glucose Gel 40 % oral gel [Dextrose] PRN If resident is unable to swallow (with or without symptoms) and Glucose results less than 70 give GLucose 40% Gel 1 tube orally - Recheck Glucose 15 minutes after administratio n. 1 tube 2023 Active 2023 50464 02380 8 By Mouth False Lorazepam 0.5 mg tablet [generic] 0.5 mg By Mouth Every 8 hours as needed For Anxiety 0.5 mg 11/18 Inactiv e 2023 41465 47083 0 Every 8 hours as needed By Mouth False Potassium chloride ER 20 mEq tablet,exte nded release [generic] 40 meq By Mouth Once daily For Hypokalemia 40 meq 11/13 Inactiv e 2023 88414 66574 1 Once daily By Mouth False Colesevelam 625 mg tablet [generic] 1250 mg By Mouth Twice daily For TYPE 2 DIABETES MELLITUS WITHOUT COMPLICATIONS 1250 mg 11/19 Inactiv e 2023 25169 02121 1 Twice daily By Mouth E11.9 False Pioglitazon e 15 mg tablet [generic] 15 mg By Mouth Once daily For TYPE 2 DIABETES MELLITUS WITHOUT COMPLICATIONS 15 mg 11/14 Inactiv e 2023 49017 40052 1 Once daily By Mouth E11.9 False Cholecalcif hardeep (vitamin D3) 50 mcg (2,000 unit) tablet [generic] 50 mcg By Mouth Once daily For Supplement 50 mcg 2023 Active 2023 50250 98011 1 Once daily By Mouth False Colchicine 0.6 mg tablet [generic] 0.6 mg By Mouth Twice daily As Needed For Gout 0.6 mg 2023 Active 2023 86378 96104 4 Twice daily By Mouth False Levothyroxi ne 200 mcg tablet [generic] 200 mcg By Mouth Once daily For Hypothyroidis m 200 mcg 202300 0000 Active 2023 87078 90336 0 Once daily By Mouth False Ondansetron 4 mg disintegrat ing tablet [generic] 4 mg By Mouth Every 6 hours as needed For Nausea 4 mg 11/12 Inactiv e 2023 45703 94343 4 Every 6 hours as needed By Mouth False Docusate sodium 100 mg capsule [generic] 100 mg By Mouth Twice daily For Constipation 100 mg 202300 0000 Active 2023 42199 02066 1 Twice daily By Mouth False Oxycodone 5 mg tablet [generic] 5 mg By Mouth Every 6 hours as needed For Pain 5 mg 11/12 Inactiv e 2023 15528 65515 1 Every 6 hours as needed By Mouth False Oxycodone 5 mg tablet [generic] 5 mg By Mouth Every 6 hours as needed For Pain 5 mg 11/18 Inactiv e 2023 05810 49333 1 Every 6 hours as needed By Mouth False Milk of Magnesia 400 mg/5 mL oral suspension 30 ml By Mouth one time per day as needed if no BM x 3 days For Constipation 30 ml 202300 Active 2023 39726 75784 2 By Mouth False Ondansetron 4 mg disintegrat ing tablet [generic] 11/12 Inactiv e 2023 46552 57279 4 Ondansetron 4 mg disintegrat ing tablet [generic] 4 mg By Mouth Every 6 hours as needed For Nausea 4 mg 11/14 Inactiv e 2023 08777 08359 4 Every 6 hours as needed By Mouth False Potassium chloride ER 10 mEq capsule,ext ended release [generic] 40 mEq By Mouth Once daily For hypokalemia 40 mEq 11/17 Inactiv e 2023 96105 96573 1 Once daily By Mouth False Potassium chloride ER 10 mEq capsule,ext ended release [generic] 4 capsules By Mouth At bedtime For hypokalemia 4 capsule s 11/16 Inactiv e 2023 83651 15146 1 At bedtime By Mouth False Flomax 0.4 mg capsule 0.4 mg By Mouth At bedtime For Urinary retention 0.4 mg 11/18 Inactiv e 2023 25097 61098 1 At bedtime By Mouth False STOOL CULTURE Once daily Obtain stool culture, add C. Diff to routine stool culture For Rule out C. Diff 1x 2023 Active 2023 Once daily Other False Butrans 5 mcg/hour transdermal patch 1 patch Transdermal Every 7 Days For Pain 1 patch 2023 Active 2023 72397 06820 4 Every week Transd ermal False Pantoprazol e 40 mg tablet,nu yed release [generic] 40 mg By Mouth Twice daily For gerd 40 mg 2023 Active 2023 05269 47516 0 Twice daily By Mouth False Scopolamine 1 mg over 3 days transdermal patch [generic] 1 Transdermal Every 72 hours For nausea 1 11/21 Active 2023 20399 75658 4 Every 72 hours Transd ermal False Ondansetron 4 mg disintegrat ing tablet [generic] 11/14 Inactiv e 2023 93633 30013 4 Ondansetron 4 mg disintegrat ing tablet [generic] 4 mg By Mouth Every 8 hours For Nausea 4 mg 2023 Active 2023 97945 25888 4 Every 8 hours By Mouth False Miralax 17 gram oral powder packet 8.5 g (1/2 capful) By Mouth Once daily For constipation 8.5 g 11/18 Inactiv e 2023 56745 26575 6 Once daily By Mouth False Pioglitazon e 15 mg tablet [generic] 11/14 Inactiv e 2023 19583 93022 1 E11.9 Pioglitazon e 15 mg tablet [generic] 7.5mg ( half a tab) By Mouth Once daily For TYPE 2 DIABETES MELLITUS WITHOUT COMPLICATIONS 7.5mg 2023 Active 2023 65020 64158 1 Once daily By Mouth E11.9 False Mylanta Coat-Cool 1,200 mg-270 mg-80 mg/10 mL oral suspension 10 ml By Mouth Every 8 hours As Needed For heartburn, indigestion, gas 10 ml 2023 Active 2023 66098 84854 1 Every 8 hours By Mouth False Prochlorper azine maleate 5 mg tablet [generic] 5 mg By Mouth Every 8 hours as needed For Nausea 5 mg 2023 Active 2023 78421 43873 1 Every 8 hours as needed By Mouth False Potassium chloride ER 10 mEq capsule,ext ended release [generic] 10 meq By Mouth 4 times a day For Hypokalemia 10 meq 2023 Active 2023 36339 96903 1 4 times a day By Mouth False Lorazepam 0.5 mg tablet [generic] 11/18 Inactiv e 2023 99669 32617 0 Lorazepam 0.5 mg tablet [generic] 0.5 mg By Mouth Every 8 hours as needed For Anxiety 0.5 mg 12/18 Active 2023 84987 04995 0 Every 8 hours as needed By Mouth False Flomax 0.4 mg capsule 11/18 Inactiv e 2023 29033 70864 1 Flomax 0.4 mg capsule 0.4 mg By Mouth Once daily For Urinary retention 0.4 mg 11/19 Inactiv e 2023 65053 54157 1 Once daily By Mouth False Oxycodone 5 mg tablet [generic] 11/18 Inactiv e 2023 56769 19333 1 Oxycodone 5 mg tablet [generic] 5 mg By Mouth Every 6 hours as needed For Back Pain 5 mg 2023 Active 2023 92088 15240 1 Every 6 hours as needed By Mouth False Cipro 250 mg tablet 250 mg By Mouth Twice daily For UTI 250 mg 11/19 Inactiv e 2023 07540 54807 1 Twice daily By Mouth False Senna 8.6 mg tablet 17.2 mg By Mouth Twice daily For Constipation 17.2 mg 2023 Active 2023 41910 79668 1 Twice daily By Mouth False Zyprexa 2.5 mg tablet 2.5 mg By Mouth At bedtime For persistent nausea 2.5 mg 2023 Active 2023 53770 78130 0 At bedtime By Mouth False MAGNESSIUM GLUCONATE 500mg By Mouth Every morning For Supplement 500mg 2023 Active 2023 Every morning By Mouth False Cipro 250 mg tablet 11/19 Inactiv e 2023 47172 25614 1 Cipro 250 mg tablet 250 mg By Mouth Twice daily For UTI 250 mg 11/26 Active 2023 02634 46181 1 Twice daily By Mouth False Flomax 0.4 mg capsule 11/19 Inactiv e 2023 03271 92212 1 Flomax 0.4 mg capsule 0.4 mg By Mouth Once daily For Urinary retention 0.4 mg 11/26 Active 2023 67416 81743 1 Once daily By Mouth False Problems Code Description [...] Temperature SpO2 Blood Sugar Pulse Respirations 8 97254 5 75.00 mm[Hg] - Sitting 140.00 mm[Hg] - Sitting 65 NI 98.00 Tympanic 95.00 % 102.00 /min 18.00/min 33371 8 70298 9 98801 918 28033 2 75.00 mm[Hg] - Sitting 140.00 mm[Hg] - Sitting 98.00 Tympanic 102.00 /min 18.00/min 33430 918 06887 3 67014 918 55751 1 72.00 mm[Hg] - Sitting 138.00 mm[Hg] - Sitting 98.40 Tympanic 98014 918 87046 4 88.00/ min 18.00/min 21485 919 88757 4 71.00 mm[Hg] - Sitting 115.00 mm[Hg] - Sitting 98.30 Tympanic 97.00 % 86.00/ min 16.00/min 68629 919 79713 0 71.00 mm[Hg] - Sitting 115.00 mm[Hg] - Sitting 98.30 Tympanic 86.00/ min 16.00/min 38874 919 58978 7 71.00 mm[Hg] - Sitting 115.00 mm[Hg] - Sitting 98.30 Tympanic 86.00/ min 16.00/min 82007 920 92375 6 72.00 mm[Hg] - Sitting 112.00 mm[Hg] - Sitting 98.10 Tympanic 82.00/ min 18.00/min 56589 920 98062 0 75.00 mm[Hg] - Sitting 130.00 mm[Hg] - Sitting 98.40 Forehead Scan 93.00 % 88.00/ min 18.00/min 51204 920 74462 2 75.00 mm[Hg] - Lying Down 130.00 mm[Hg] - Lying Down 98.40 Tympanic 88.00/ min 18.00/min 26181 920 33213 5 75.00 mm[Hg] - Lying Down 130.00 mm[Hg] - Lying Down 98.40 Tympanic 88.00/ min 18.00/min 17654 920 36690 6 199.00 NI 80153 920 09209 3 75.00 mm[Hg] - Sitting 130.00 mm[Hg] - Sitting 98.40 Tympanic 88.00/ min 18.00/min 37764 921 67053 1 71.00 mm[Hg] - Lying Down 119.00 mm[Hg] - Lying Down 98.40 Forehead Scan 96.00 % 83.00/ min 16.00/min 47804 922 78651 6 71.00 mm[Hg] - Lying Down 128.00 mm[Hg] - Lying Down 98.30 Forehead Scan 94.00 % 84.00/ min 18.00/min 51949 923 55046 4 63.00 mm[Hg] - Sitting 105.00 mm[Hg] - Sitting 98.20 Tympanic 93.00 % 93.00/ min 18.00/min 46232 924 07208 8 66.00 mm[Hg] - Sitting 104.00 mm[Hg] - Sitting 98.20 Tympanic 98.00 % 84.00/ min 16.00/min 13829 925 61080 2 131.00 mg/dL 39783 925 95542 6 138.00 mg/dL 27047 926 45067 1 199.00 NI
--- OUTSIDE RECORDS SUMMARY | 2023-12-13 23:56 | External Medical Summary | Continuity Of Care Document ---
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 unit/0.1 mL intradermal injection solution [Tuberculin PPD] 0.1mL Intradermal 1 time For PPD 2nd Step Give 2nd Step PPD Day 1 and Read results Day 3 (schedule 7 days after 1st READ) 0.1mL 11/13 Inactiv e 2023 42307 55974 0 1 time Intrad ermal False DISCONTINUE as of 11/14/2023: Tubersol 5 tub. unit/0.1 mL intradermal injection solution [Tuberculin PPD] 11/13 Inactiv e 2023 48096 77332 0 Tubersol 5 tub. unit/0.1 mL intradermal injection solution 0.1 mL Intradermal 1 time For PPD Step 1 GIVE on Day 1 and read results Day 3 0.1 mL 11/16 Inactiv e 2023 49311 09089 1 1 time Intrad ermal False DISCONTINUE as of 11/14/2023: Tubersol 5 tub. unit/0.1 mL intradermal injection solution [Tuberculin PPD] 11/13 Inactiv e 2023 21914 95527 0 Tubersol 5 tub. unit/0.1 mL intradermal injection solution 0.1mL Intradermal 1 time For PPD 2nd Step Give 2nd Step PPD Day 1 and Read results Day 3 (schedule 7 days after 1st READ) 0.1mL 11/25 Active 2023 41747 44243 1 1 time Intrad ermal False Tylenol 325 mg tablet 2 tabs By Mouth Every 4 hours as needed For Pain DO NOT EXCEED 3000 MG APAP/24 Hours 2 tabs 202300 /0000 Active 2023 39048 01810 0 Every 4 hours as needed By Mouth False Tylenol 325 mg tablet 2 tabs By Mouth Every 4 hours as needed For Fever >100 DO NOT EXCEED 3000 MG APAP/24 Hours 2 tabs 202300 /0000 Active 2023 14629 05348 0 Every 4 hours as needed By Mouth False Dulcolax (bisacodyl) 10 mg rectal suppository One Suppository per rectum PRN if Milk of Magnisia ineffective. Give on day 5 of no BM 1 sup 2023 Active 2023 09885 73980 1 Daily as needed Rectal False Fleet Enema 19 gram-7 gram/118 mL Administer per rectum PRN one time if dulcolax suppository not effective. Give on day 6 of no BM 1 202300 0000 Active 2023 31452 19859 6 Daily as needed Rectal False Dextrose 50 % in water (D50W) intravenous solution [generic] Dextrose 50% reyes 20-50 ml (slow push) Intravenous if Glucagon not effective after 15 minutes. CALL 911 for ED Evaluation. 50% reyes 202300 /0000 Active 2023 87425 69878 9 Intrav enous False Glucagon (HCl) Emergency Kit 1 mg solution for injection Administer Glucagon 1 mg Intramuscular if 15 minutes after GLucose Gel is administered Glucose remains less than 70 1 mg 2023 Active 2023 02871 60228 2 Intram uscula r False Glucose Gel 40 % oral gel [Dextrose] PRN If resident is unable to swallow (with or without symptoms) and Glucose results less than 70 give GLucose 40% Gel 1 tube orally - Recheck Glucose 15 minutes after administratio n. 1 tube 2023 Active 2023 06968 17872 8 By Mouth False Lorazepam 0.5 mg tablet [generic] 0.5 mg By Mouth Every 8 hours as needed For Anxiety 0.5 mg 11/18 Inactiv e 2023 99828 94280 0 Every 8 hours as needed By Mouth False Potassium chloride ER 20 mEq tablet,exte nded release [generic] 40 meq By Mouth Once daily For Hypokalemia 40 meq 11/13 Inactiv e 2023 23155 98232 1 Once daily By Mouth False Colesevelam 625 mg tablet [generic] 1250 mg By Mouth Twice daily For TYPE 2 DIABETES MELLITUS WITHOUT COMPLICATIONS 1250 mg 11/19 Inactiv e 2023 02742 94505 1 Twice daily By Mouth E11.9 False Pioglitazon e 15 mg tablet [generic] 15 mg By Mouth Once daily For TYPE 2 DIABETES MELLITUS WITHOUT COMPLICATIONS 15 mg 11/14 Inactiv e 2023 92994 92966 1 Once daily By Mouth E11.9 False Cholecalcif hardeep (vitamin D3) 50 mcg (2,000 unit) tablet [generic] 50 mcg By Mouth Once daily For Supplement 50 mcg 2023 Active 2023 85991 58851 1 Once daily By Mouth False Colchicine 0.6 mg tablet [generic] 0.6 mg By Mouth Twice daily As Needed For Gout 0.6 mg 2023 Active 2023 13947 39812 4 Twice daily By Mouth False Levothyroxi ne 200 mcg tablet [generic] 200 mcg By Mouth Once daily For Hypothyroidis m 200 mcg 202300 0000 Active 2023 44225 82727 0 Once daily By Mouth False Ondansetron 4 mg disintegrat ing tablet [generic] 4 mg By Mouth Every 6 hours as needed For Nausea 4 mg 11/12 Inactiv e 2023 18687 91678 4 Every 6 hours as needed By Mouth False Docusate sodium 100 mg capsule [generic] 100 mg By Mouth Twice daily For Constipation 100 mg 202300 0000 Active 2023 36908 14968 1 Twice daily By Mouth False Oxycodone 5 mg tablet [generic] 5 mg By Mouth Every 6 hours as needed For Pain 5 mg 11/12 Inactiv e 2023 17122 81256 1 Every 6 hours as needed By Mouth False Oxycodone 5 mg tablet [generic] 5 mg By Mouth Every 6 hours as needed For Pain 5 mg 11/18 Inactiv e 2023 32580 92063 1 Every 6 hours as needed By Mouth False Milk of Magnesia 400 mg/5 mL oral suspension 30 ml By Mouth one time per day as needed if no BM x 3 days For Constipation 30 ml 202300 Active 2023 39967 34388 2 By Mouth False Ondansetron 4 mg disintegrat ing tablet [generic] 11/12 Inactiv e 2023 60688 95800 4 Ondansetron 4 mg disintegrat ing tablet [generic] 4 mg By Mouth Every 6 hours as needed For Nausea 4 mg 11/14 Inactiv e 2023 91573 23884 4 Every 6 hours as needed By Mouth False Potassium chloride ER 10 mEq capsule,ext ended release [generic] 40 mEq By Mouth Once daily For hypokalemia 40 mEq 11/17 Inactiv e 2023 99785 52787 1 Once daily By Mouth False Potassium chloride ER 10 mEq capsule,ext ended release [generic] 4 capsules By Mouth At bedtime For hypokalemia 4 capsule s 11/16 Inactiv e 2023 55059 28301 1 At bedtime By Mouth False Flomax 0.4 mg capsule 0.4 mg By Mouth At bedtime For Urinary retention 0.4 mg 11/18 Inactiv e 2023 10433 28441 1 At bedtime By Mouth False STOOL CULTURE Once daily Obtain stool culture, add C. Diff to routine stool culture For Rule out C. Diff 1x 2023 Active 2023 Once daily Other False Butrans 5 mcg/hour transdermal patch 1 patch Transdermal Every 7 Days For Pain 1 patch 2023 Active 2023 79246 42359 4 Every week Transd ermal False Pantoprazol e 40 mg tablet,nu yed release [generic] 40 mg By Mouth Twice daily For gerd 40 mg 2023 Active 2023 48371 23655 0 Twice daily By Mouth False Scopolamine 1 mg over 3 days transdermal patch [generic] 1 Transdermal Every 72 hours For nausea 1 11/21 Active 2023 48182 62156 4 Every 72 hours Transd ermal False Ondansetron 4 mg disintegrat ing tablet [generic] 11/14 Inactiv e 2023 10168 11249 4 Ondansetron 4 mg disintegrat ing tablet [generic] 4 mg By Mouth Every 8 hours For Nausea 4 mg 2023 Active 2023 04928 14161 4 Every 8 hours By Mouth False Miralax 17 gram oral powder packet 8.5 g (1/2 capful) By Mouth Once daily For constipation 8.5 g 11/18 Inactiv e 2023 55148 51962 6 Once daily By Mouth False Pioglitazon e 15 mg tablet [generic] 11/14 Inactiv e 2023 24388 91999 1 E11.9 Pioglitazon e 15 mg tablet [generic] 7.5mg ( half a tab) By Mouth Once daily For TYPE 2 DIABETES MELLITUS WITHOUT COMPLICATIONS 7.5mg 2023 Active 2023 63885 85251 1 Once daily By Mouth E11.9 False Mylanta Coat-Cool 1,200 mg-270 mg-80 mg/10 mL oral suspension 10 ml By Mouth Every 8 hours As Needed For heartburn, indigestion, gas 10 ml 2023 Active 2023 64661 91874 1 Every 8 hours By Mouth False Prochlorper azine maleate 5 mg tablet [generic] 5 mg By Mouth Every 8 hours as needed For Nausea 5 mg 2023 Active 2023 57780 30194 1 Every 8 hours as needed By Mouth False Potassium chloride ER 10 mEq capsule,ext ended release [generic] 10 meq By Mouth 4 times a day For Hypokalemia 10 meq 11/20 Inactiv e 2023 33454 93865 1 4 times a day By Mouth False Lorazepam 0.5 mg tablet [generic] 11/18 Inactiv e 2023 56644 71092 0 Lorazepam 0.5 mg tablet [generic] 0.5 mg By Mouth Every 8 hours as needed For Anxiety 0.5 mg 12/18 Active 2023 16071 58337 0 Every 8 hours as needed By Mouth False Flomax 0.4 mg capsule 11/18 Inactiv e 2023 15340 27907 1 Flomax 0.4 mg capsule 0.4 mg By Mouth Once daily For Urinary retention 0.4 mg 11/19 Inactiv e 2023 25213 53282 1 Once daily By Mouth False Oxycodone 5 mg tablet [generic] 11/18 Inactiv e 2023 49445 05465 1 Oxycodone 5 mg tablet [generic] 5 mg By Mouth Every 6 hours as needed For Back Pain 5 mg 2023 Active 2023 26715 96736 1 Every 6 hours as needed By Mouth False Cipro 250 mg tablet 250 mg By Mouth Twice daily For UTI 250 mg 11/19 Inactiv e 2023 49231 68761 1 Twice daily By Mouth False Senna 8.6 mg tablet 17.2 mg By Mouth Twice daily For Constipation 17.2 mg 2023 Active 2023 27841 59075 1 Twice daily By Mouth False Zyprexa 2.5 mg tablet 2.5 mg By Mouth At bedtime For persistent nausea 2.5 mg 2023 Active 2023 56316 31384 0 At bedtime By Mouth False MAGNESSIUM GLUCONATE 500mg By Mouth Every morning For Supplement 500mg 2023 Active 2023 Every morning By Mouth False Cipro 250 mg tablet 11/19 Inactiv e 2023 98210 22089 1 Cipro 250 mg tablet 250 mg By Mouth Twice daily For UTI 250 mg 11/26 Active 2023 46697 03208 1 Twice daily By Mouth False Flomax 0.4 mg capsule 11/19 Inactiv e 2023 08391 40660 1 Flomax 0.4 mg capsule 0.4 mg By Mouth Once daily For Urinary retention 0.4 mg 11/26 Active 2023 76233 41015 1 Once daily By Mouth False Motrin IB 200 mg tablet 600 mg By Mouth Every 12 hours As Needed For Pain 600 mg 11/20 Inactiv e 2023 53277 49572 2 Every 12 hours By Mouth False Motrin IB 200 mg tablet 600 mg By Mouth Every 12 hours As Needed For Pain 600 mg 11/20 Inactiv e 2023 87408 70047 2 Every 12 hours By Mouth False Motrin IB 200 mg tablet 600 mg By Mouth Every 12 hours As Needed For Pain 600 mg 11/27 Active 2023 97220 84484 2 Every 12 hours By Mouth False Problems Code Description [...] weight Temperature SpO2 Blood Sugar Pulse Respirations 78139 5 75.00 mm[Hg] - Sitting 140.00 mm[Hg] - Sitting 65 NI 98.00 Tympanic 95.00 % 102.00 /min 18.00/min 8 04322 9 32034 2 75.00 mm[Hg] - Sitting 140.00 mm[Hg] - Sitting 98.00 Tympanic 102.00 /min 18.00/min 918 51240 3 8 24277 1 72.00 mm[Hg] - Sitting 138.00 mm[Hg] - Sitting 98.40 Tympanic 13208 4 88.00/ min 18.00/min 98162 919 26242 4 71.00 mm[Hg] - Sitting 115.00 mm[Hg] - Sitting 98.30 Tympanic 97.00 % 86.00/ min 16.00/min 66218 919 80548 0 71.00 mm[Hg] - Sitting 115.00 mm[Hg] - Sitting 98.30 Tympanic 86.00/ min 16.00/min 16726 919 03974 7 71.00 mm[Hg] - Sitting 115.00 mm[Hg] - Sitting 98.30 Tympanic 86.00/ min 16.00/min 36757 920 99280 6 72.00 mm[Hg] - Sitting 112.00 mm[Hg] - Sitting 98.10 Tympanic 82.00/ min 18.00/min 34610 920 70899 0 75.00 mm[Hg] - Sitting 130.00 mm[Hg] - Sitting 98.40 Forehead Scan 93.00 % 88.00/ min 18.00/min 94783 920 97420 2 75.00 mm[Hg] - Lying Down 130.00 mm[Hg] - Lying Down 98.40 Tympanic 88.00/ min 18.00/min 29723 920 80419 5 75.00 mm[Hg] - Lying Down 130.00 mm[Hg] - Lying Down 98.40 Tympanic 88.00/ min 18.00/min 42102 920 40270 6 199.00 NI 52619 920 62756 3 75.00 mm[Hg] - Sitting 130.00 mm[Hg] - Sitting 98.40 Tympanic 88.00/ min 18.00/min 41896 921 11998 1 71.00 mm[Hg] - Lying Down 119.00 mm[Hg] - Lying Down 98.40 Forehead Scan 96.00 % 83.00/ min 16.00/min 25413 922 54511 6 71.00 mm[Hg] - Lying Down 128.00 mm[Hg] - Lying Down 98.30 Forehead Scan 94.00 % 84.00/ min 18.00/min 87235 923 01334 4 63.00 mm[Hg] - Sitting 105.00 mm[Hg] - Sitting 98.20 Tympanic 93.00 % 93.00/ min 18.00/min 80569 924 51211 8 66.00 mm[Hg] - Sitting 104.00 mm[Hg] - Sitting 98.20 Tympanic 98.00 % 84.00/ min 16.00/min 83596 925 17769 2 131.00 mg/dL 48419 925 61821 6 138.00 mg/dL 91041 926 08017 1 199.00 NI
--- OUTSIDE RECORDS SUMMARY | 2023-12-13 23:56 | External Medical Summary | Continuity Of Care Document ---
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 unit/0.1 mL intradermal injection solution [Tuberculin PPD] 0.1mL Intradermal 1 time For PPD 2nd Step Give 2nd Step PPD Day 1 and Read results Day 3 (schedule 7 days after 1st READ) 0.1mL 11/13 Inactiv e 2023 66114 49378 0 1 time Intrad ermal False DISCONTINUE as of 11/14/2023: Tubersol 5 tub. unit/0.1 mL intradermal injection solution [Tuberculin PPD] 11/13 Inactiv e 2023 02054 62209 0 Tubersol 5 tub. unit/0.1 mL intradermal injection solution 0.1 mL Intradermal 1 time For PPD Step 1 GIVE on Day 1 and read results Day 3 0.1 mL 11/16 Inactiv e 2023 00470 56644 1 1 time Intrad ermal False DISCONTINUE as of 11/14/2023: Tubersol 5 tub. unit/0.1 mL intradermal injection solution [Tuberculin PPD] 11/13 Inactiv e 2023 16217 04007 0 Tubersol 5 tub. unit/0.1 mL intradermal injection solution 0.1mL Intradermal 1 time For PPD 2nd Step Give 2nd Step PPD Day 1 and Read results Day 3 (schedule 7 days after 1st READ) 0.1mL 11/25 Active 2023 12281 84077 1 1 time Intrad ermal False Tylenol 325 mg tablet 2 tabs By Mouth Every 4 hours as needed For Pain DO NOT EXCEED 3000 MG APAP/24 Hours 2 tabs 202300 /0000 Active 2023 82971 72086 0 Every 4 hours as needed By Mouth False Tylenol 325 mg tablet 2 tabs By Mouth Every 4 hours as needed For Fever >100 DO NOT EXCEED 3000 MG APAP/24 Hours 2 tabs 202300 /0000 Active 2023 37762 95929 0 Every 4 hours as needed By Mouth False Dulcolax (bisacodyl) 10 mg rectal suppository One Suppository per rectum PRN if Milk of Magnisia ineffective. Give on day 5 of no BM 1 sup 2023 Active 2023 13247 88867 1 Daily as needed Rectal False Fleet Enema 19 gram-7 gram/118 mL Administer per rectum PRN one time if dulcolax suppository not effective. Give on day 6 of no BM 1 202300 0000 Active 2023 20293 77909 6 Daily as needed Rectal False Dextrose 50 % in water (D50W) intravenous solution [generic] Dextrose 50% reyes 20-50 ml (slow push) Intravenous if Glucagon not effective after 15 minutes. CALL 911 for ED Evaluation. 50% reyes 202300 /0000 Active 2023 92801 86951 9 Intrav enous False Glucagon (HCl) Emergency Kit 1 mg solution for injection Administer Glucagon 1 mg Intramuscular if 15 minutes after GLucose Gel is administered Glucose remains less than 70 1 mg 2023 Active 2023 59113 76261 2 Intram uscula r False Glucose Gel 40 % oral gel [Dextrose] PRN If resident is unable to swallow (with or without symptoms) and Glucose results less than 70 give GLucose 40% Gel 1 tube orally - Recheck Glucose 15 minutes after administratio n. 1 tube 2023 Active 2023 68105 49461 8 By Mouth False Lorazepam 0.5 mg tablet [generic] 0.5 mg By Mouth Every 8 hours as needed For Anxiety 0.5 mg 11/18 Inactiv e 2023 35773 34988 0 Every 8 hours as needed By Mouth False Potassium chloride ER 20 mEq tablet,exte nded release [generic] 40 meq By Mouth Once daily For Hypokalemia 40 meq 11/13 Inactiv e 2023 38342 54933 1 Once daily By Mouth False Colesevelam 625 mg tablet [generic] 1250 mg By Mouth Twice daily For TYPE 2 DIABETES MELLITUS WITHOUT COMPLICATIONS 1250 mg 11/19 Inactiv e 2023 10477 66733 1 Twice daily By Mouth E11.9 False Pioglitazon e 15 mg tablet [generic] 15 mg By Mouth Once daily For TYPE 2 DIABETES MELLITUS WITHOUT COMPLICATIONS 15 mg 11/14 Inactiv e 2023 10271 67316 1 Once daily By Mouth E11.9 False Cholecalcif hardeep (vitamin D3) 50 mcg (2,000 unit) tablet [generic] 50 mcg By Mouth Once daily For Supplement 50 mcg 2023 Active 2023 57671 32211 1 Once daily By Mouth False Colchicine 0.6 mg tablet [generic] 0.6 mg By Mouth Twice daily As Needed For Gout 0.6 mg 2023 Active 2023 99771 53438 4 Twice daily By Mouth False Levothyroxi ne 200 mcg tablet [generic] 200 mcg By Mouth Once daily For Hypothyroidis m 200 mcg 202300 0000 Active 2023 05220 73180 0 Once daily By Mouth False Ondansetron 4 mg disintegrat ing tablet [generic] 4 mg By Mouth Every 6 hours as needed For Nausea 4 mg 11/12 Inactiv e 2023 48685 57085 4 Every 6 hours as needed By Mouth False Docusate sodium 100 mg capsule [generic] 100 mg By Mouth Twice daily For Constipation 100 mg 202300 0000 Active 2023 07401 76926 1 Twice daily By Mouth False Oxycodone 5 mg tablet [generic] 5 mg By Mouth Every 6 hours as needed For Pain 5 mg 11/12 Inactiv e 2023 10592 43856 1 Every 6 hours as needed By Mouth False Oxycodone 5 mg tablet [generic] 5 mg By Mouth Every 6 hours as needed For Pain 5 mg 11/18 Inactiv e 2023 25072 69412 1 Every 6 hours as needed By Mouth False Milk of Magnesia 400 mg/5 mL oral suspension 30 ml By Mouth one time per day as needed if no BM x 3 days For Constipation 30 ml 202300 Active 2023 84980 81230 2 By Mouth False Ondansetron 4 mg disintegrat ing tablet [generic] 11/12 Inactiv e 2023 57305 76886 4 Ondansetron 4 mg disintegrat ing tablet [generic] 4 mg By Mouth Every 6 hours as needed For Nausea 4 mg 11/14 Inactiv e 2023 51798 26089 4 Every 6 hours as needed By Mouth False Potassium chloride ER 10 mEq capsule,ext ended release [generic] 40 mEq By Mouth Once daily For hypokalemia 40 mEq 11/17 Inactiv e 2023 31219 14685 1 Once daily By Mouth False Potassium chloride ER 10 mEq capsule,ext ended release [generic] 4 capsules By Mouth At bedtime For hypokalemia 4 capsule s 11/16 Inactiv e 2023 90945 28764 1 At bedtime By Mouth False Flomax 0.4 mg capsule 0.4 mg By Mouth At bedtime For Urinary retention 0.4 mg 11/18 Inactiv e 2023 55210 41979 1 At bedtime By Mouth False STOOL CULTURE Once daily Obtain stool culture, add C. Diff to routine stool culture For Rule out C. Diff 1x 2023 Active 2023 Once daily Other False Butrans 5 mcg/hour transdermal patch 1 patch Transdermal Every 7 Days For Pain 1 patch 2023 Active 2023 35102 86409 4 Every week Transd ermal False Pantoprazol e 40 mg tablet,nu yed release [generic] 40 mg By Mouth Twice daily For gerd 40 mg 2023 Active 2023 01195 69239 0 Twice daily By Mouth False Scopolamine 1 mg over 3 days transdermal patch [generic] 1 Transdermal Every 72 hours For nausea 1 11/20 Inactiv e 2023 85560 52933 4 Every 72 hours Transd ermal False Ondansetron 4 mg disintegrat ing tablet [generic] 11/14 Inactiv e 2023 78148 91639 4 Ondansetron 4 mg disintegrat ing tablet [generic] 4 mg By Mouth Every 8 hours For Nausea 4 mg 2023 Active 2023 63016 08093 4 Every 8 hours By Mouth False Miralax 17 gram oral powder packet 8.5 g (1/2 capful) By Mouth Once daily For constipation 8.5 g 11/18 Inactiv e 2023 56431 35634 6 Once daily By Mouth False Pioglitazon e 15 mg tablet [generic] 11/14 Inactiv e 2023 75224 79212 1 E11.9 Pioglitazon e 15 mg tablet [generic] 7.5mg ( half a tab) By Mouth Once daily For TYPE 2 DIABETES MELLITUS WITHOUT COMPLICATIONS 7.5mg 2023 Active 2023 32804 18153 1 Once daily By Mouth E11.9 False Mylanta Coat-Cool 1,200 mg-270 mg-80 mg/10 mL oral suspension 10 ml By Mouth Every 8 hours As Needed For heartburn, indigestion, gas 10 ml 2023 Active 2023 09881 08159 1 Every 8 hours By Mouth False Prochlorper azine maleate 5 mg tablet [generic] 5 mg By Mouth Every 8 hours as needed For Nausea 5 mg 2023 Active 2023 17273 09394 1 Every 8 hours as needed By Mouth False Potassium chloride ER 10 mEq capsule,ext ended release [generic] 10 meq By Mouth 4 times a day For Hypokalemia 10 meq 11/20 Inactiv e 2023 92485 23290 1 4 times a day By Mouth False Lorazepam 0.5 mg tablet [generic] 11/18 Inactiv e 2023 64323 47755 0 Lorazepam 0.5 mg tablet [generic] 0.5 mg By Mouth Every 8 hours as needed For Anxiety 0.5 mg 12/18 Active 2023 35136 30924 0 Every 8 hours as needed By Mouth False Flomax 0.4 mg capsule 11/18 Inactiv e 2023 35512 91371 1 Flomax 0.4 mg capsule 0.4 mg By Mouth Once daily For Urinary retention 0.4 mg 11/19 Inactiv e 2023 16869 77648 1 Once daily By Mouth False Oxycodone 5 mg tablet [generic] 11/18 Inactiv e 2023 78141 41109 1 Oxycodone 5 mg tablet [generic] 5 mg By Mouth Every 6 hours as needed For Back Pain 5 mg 2023 Active 2023 76318 72287 1 Every 6 hours as needed By Mouth False Cipro 250 mg tablet 250 mg By Mouth Twice daily For UTI 250 mg 11/19 Inactiv e 2023 29712 72227 1 Twice daily By Mouth False Senna 8.6 mg tablet 17.2 mg By Mouth Twice daily For Constipation 17.2 mg 2023 Active 2023 19803 34927 1 Twice daily By Mouth False Zyprexa 2.5 mg tablet 2.5 mg By Mouth At bedtime For persistent nausea 2.5 mg 2023 Active 2023 79696 63329 0 At bedtime By Mouth False MAGNESSIUM GLUCONATE 500mg By Mouth Every morning For Supplement 500mg 2023 Active 2023 Every morning By Mouth False Cipro 250 mg tablet 11/19 Inactiv e 2023 25444 62017 1 Cipro 250 mg tablet 250 mg By Mouth Twice daily For UTI 250 mg 11/26 Active 2023 09761 44064 1 Twice daily By Mouth False Flomax 0.4 mg capsule 11/19 Inactiv e 2023 28777 37162 1 Flomax 0.4 mg capsule 0.4 mg By Mouth Once daily For Urinary retention 0.4 mg 11/20 Inactiv e 2023 09097 76847 1 Once daily By Mouth False Motrin IB 200 mg tablet 600 mg By Mouth Every 12 hours As Needed For Pain 600 mg 11/20 Inactiv e 2023 25632 78878 2 Every 12 hours By Mouth False Motrin IB 200 mg tablet 600 mg By Mouth Every 12 hours As Needed For Pain 600 mg 11/20 Inactiv e 2023 78421 26085 2 Every 12 hours By Mouth False Motrin IB 200 mg tablet 600 mg By Mouth Every 12 hours As Needed For Pain 600 mg 11/27 Active 2023 86822 74815 2 Every 12 hours By Mouth False Flomax 0.4 mg capsule 0.4 mg By Mouth Once daily For Urinary retention 0.4 mg 2023 Active 2023 76953 43738 1 Once daily By Mouth False Scopolamine 1 mg over 3 days transdermal patch [generic] 1 Transdermal Every 72 hours For nausea 1 11/22 Active 2023 47350 45622 4 Every 72 hours Transd ermal False Problems Code Description Start [...] weight Temperature SpO2 Blood Sugar Pulse Respirations 31957 918 71163 5 75.00 mm[Hg] - Sitting 140.00 mm[Hg] - Sitting 65 NI 98.00 Tympanic 95.00 % 102.00 /min 18.00/min 35689 918 27219 9 35845 918 29196 2 75.00 mm[Hg] - Sitting 140.00 mm[Hg] - Sitting 98.00 Tympanic 102.00 /min 18.00/min 19791 918 98437 3 92926 918 52083 1 72.00 mm[Hg] - Sitting 138.00 mm[Hg] - Sitting 98.40 Tympanic 98418 918 65267 4 88.00/ min 18.00/min 01629 919 66793 4 71.00 mm[Hg] - Sitting 115.00 mm[Hg] - Sitting 98.30 Tympanic 97.00 % 86.00/ min 16.00/min 67903 919 20780 0 71.00 mm[Hg] - Sitting 115.00 mm[Hg] - Sitting 98.30 Tympanic 86.00/ min 16.00/min 88851 919 38564 7 71.00 mm[Hg] - Sitting 115.00 mm[Hg] - Sitting 98.30 Tympanic 86.00/ min 16.00/min 37514 920 34972 6 72.00 mm[Hg] - Sitting 112.00 mm[Hg] - Sitting 98.10 Tympanic 82.00/ min 18.00/min 79565 920 96781 0 75.00 mm[Hg] - Sitting 130.00 mm[Hg] - Sitting 98.40 Forehead Scan 93.00 % 88.00/ min 18.00/min 27519 920 13998 2 75.00 mm[Hg] - Lying Down 130.00 mm[Hg] - Lying Down 98.40 Tympanic 88.00/ min 18.00/min 20809 920 33562 5 75.00 mm[Hg] - Lying Down 130.00 mm[Hg] - Lying Down 98.40 Tympanic 88.00/ min 18.00/min 58675 920 48767 6 199.00 NI 95699 920 23770 3 75.00 mm[Hg] - Sitting 130.00 mm[Hg] - Sitting 98.40 Tympanic 88.00/ min 18.00/min 25758 921 41570 1 71.00 mm[Hg] - Lying Down 119.00 mm[Hg] - Lying Down 98.40 Forehead Scan 96.00 % 83.00/ min 16.00/min 16194 922 22352 6 71.00 mm[Hg] - Lying Down 128.00 mm[Hg] - Lying Down 98.30 Forehead Scan 94.00 % 84.00/ min 18.00/min 16407 923 35447 4 63.00 mm[Hg] - Sitting 105.00 mm[Hg] - Sitting 98.20 Tympanic 93.00 % 93.00/ min 18.00/min 81493 924 87969 8 66.00 mm[Hg] - Sitting 104.00 mm[Hg] - Sitting 98.20 Tympanic 98.00 % 84.00/ min 16.00/min 11774 925 59968 2 131.00 mg/dL 43000 925 81319 6 138.00 mg/dL 51358 926 04989 1 199.00 NI
--- OUTSIDE RECORDS SUMMARY | 2023-12-13 23:56 | External Medical Summary | Continuity Of Care Document ---
Author Name Unknown Address [address] [place] [address] Organization [facility] () Care Team Providers Care Director Long Term Care Name Role Phone DO Parson Amy Primary Care Provider [phone] Allergies Allergy Reaction Start Date End Date [...] 3 0.1 mL 11/13 Inactiv e 2023 62560 78619 0 1 time Intrad ermal False Tubersol 5 tub. unit/0.1 mL intradermal injection solution [Tuberculin PPD] 0.1mL Intradermal 1 time For PPD 2nd Step Give 2nd Step PPD Day 1 and Read results Day 3 (schedule 7 days after 1st READ) 0.1mL 11/13 Inactiv e 2023 29321 71508 0 1 time Intrad ermal False DISCONTINUE as of 11/14/2023: Tubersol 5 tub. unit/0.1 mL intradermal injection solution [Tuberculin PPD] 11/13 Inactiv e 2023 47439 40176 0 Tubersol 5 tub. unit/0.1 mL intradermal injection solution 0.1 mL Intradermal 1 time For PPD Step 1 GIVE on Day 1 and read results Day 3 0.1 mL 11/16 Inactiv e 2023 54141 65269 1 1 time Intrad ermal False DISCONTINUE as of 11/14/2023: Tubersol 5 tub. unit/0.1 mL intradermal injection solution [Tuberculin PPD] 11/13 Inactiv e 2023 62284 75527 0 Tubersol 5 tub. unit/0.1 mL intradermal injection solution 0.1mL Intradermal 1 time For PPD 2nd Step Give 2nd Step PPD Day 1 and Read results Day 3 (schedule 7 days after 1st READ) 0.1mL 11/25 Active 2023 10091 05172 1 1 time Intrad ermal False Tylenol 325 mg tablet 2 tabs By Mouth Every 4 hours as needed For Pain DO NOT EXCEED 3000 MG APAP/24 Hours 2 tabs 202300 /0000 Active 2023 55505 85216 0 Every 4 hours as needed By Mouth False Tylenol 325 mg tablet 2 tabs By Mouth Every 4 hours as needed For Fever >100 DO NOT EXCEED 3000 MG APAP/24 Hours 2 tabs 202300 /0000 Active 2023 85435 97840 0 Every 4 hours as needed By Mouth False Dulcolax (bisacodyl) 10 mg rectal suppository One Suppository per rectum PRN if Milk of Magnisia ineffective. Give on day 5 of no BM 1 sup 2023 Active 2023 25390 89586 1 Daily as needed Rectal False Fleet Enema 19 gram-7 gram/118 mL Administer per rectum PRN one time if dulcolax suppository not effective. Give on day 6 of no BM 1 202300 0000 Active 2023 69622 30829 6 Daily as needed Rectal False Dextrose 50 % in water (D50W) intravenous solution [generic] Dextrose 50% reyes 20-50 ml (slow push) Intravenous if Glucagon not effective after 15 minutes. CALL 911 for ED Evaluation. 50% reyes 202300 /0000 Active 2023 00020 68396 9 Intrav enous False Glucagon (HCl) Emergency Kit 1 mg solution for injection Administer Glucagon 1 mg Intramuscular if 15 minutes after GLucose Gel is administered Glucose remains less than 70 1 mg 2023 Active 2023 49667 64347 2 Intram uscula r False Glucose Gel 40 % oral gel [Dextrose] PRN If resident is unable to swallow (with or without symptoms) and Glucose results less than 70 give GLucose 40% Gel 1 tube orally - Recheck Glucose 15 minutes after administratio n. 1 tube 2023 Active 2023 64262 18764 8 By Mouth False Lorazepam 0.5 mg tablet [generic] 0.5 mg By Mouth Every 8 hours as needed For Anxiety 0.5 mg 11/18 Inactiv e 2023 84272 81128 0 Every 8 hours as needed By Mouth False Potassium chloride ER 20 mEq tablet,exte nded release [generic] 40 meq By Mouth Once daily For Hypokalemia 40 meq 11/13 Inactiv e 2023 00211 03620 1 Once daily By Mouth False Colesevelam 625 mg tablet [generic] 1250 mg By Mouth Twice daily For TYPE 2 DIABETES MELLITUS WITHOUT COMPLICATIONS 1250 mg 11/19 Inactiv e 2023 76914 88715 1 Twice daily By Mouth E11.9 False Pioglitazon e 15 mg tablet [generic] 15 mg By Mouth Once daily For TYPE 2 DIABETES MELLITUS WITHOUT COMPLICATIONS 15 mg 11/14 Inactiv e 2023 31643 96779 1 Once daily By Mouth E11.9 False Cholecalcif hardeep (vitamin D3) 50 mcg (2,000 unit) tablet [generic] 50 mcg By Mouth Once daily For Supplement 50 mcg 2023 Active 2023 21994 11843 1 Once daily By Mouth False Colchicine 0.6 mg tablet [generic] 0.6 mg By Mouth Twice daily As Needed For Gout 0.6 mg 2023 Active 2023 30419 97274 4 Twice daily By Mouth False Levothyroxi ne 200 mcg tablet [generic] 200 mcg By Mouth Once daily For Hypothyroidis m 200 mcg 202300 0000 Active 2023 13805 26824 0 Once daily By Mouth False Ondansetron 4 mg disintegrat ing tablet [generic] 4 mg By Mouth Every 6 hours as needed For Nausea 4 mg 11/12 Inactiv e 2023 32980 92750 4 Every 6 hours as needed By Mouth False Docusate sodium 100 mg capsule [generic] 100 mg By Mouth Twice daily For Constipation 100 mg 202300 0000 Active 2023 63485 84407 1 Twice daily By Mouth False Oxycodone 5 mg tablet [generic] 5 mg By Mouth Every 6 hours as needed For Pain 5 mg 11/12 Inactiv e 2023 41051 10273 1 Every 6 hours as needed By Mouth False Oxycodone 5 mg tablet [generic] 5 mg By Mouth Every 6 hours as needed For Pain 5 mg 11/18 Inactiv e 2023 33087 22666 1 Every 6 hours as needed By Mouth False Milk of Magnesia 400 mg/5 mL oral suspension 30 ml By Mouth one time per day as needed if no BM x 3 days For Constipation 30 ml 202300 Active 2023 55809 47967 2 By Mouth False Ondansetron 4 mg disintegrat ing tablet [generic] 11/12 Inactiv e 2023 35942 79409 4 Ondansetron 4 mg disintegrat ing tablet [generic] 4 mg By Mouth Every 6 hours as needed For Nausea 4 mg 11/14 Inactiv e 2023 06298 48476 4 Every 6 hours as needed By Mouth False Potassium chloride ER 10 mEq capsule,ext ended release [generic] 40 mEq By Mouth Once daily For hypokalemia 40 mEq 11/17 Inactiv e 2023 75566 88578 1 Once daily By Mouth False Potassium chloride ER 10 mEq capsule,ext ended release [generic] 4 capsules By Mouth At bedtime For hypokalemia 4 capsule s 11/16 Inactiv e 2023 17898 11659 1 At bedtime By Mouth False Flomax 0.4 mg capsule 0.4 mg By Mouth At bedtime For Urinary retention 0.4 mg 11/18 Inactiv e 2023 62945 25817 1 At bedtime By Mouth False STOOL CULTURE Once daily Obtain stool culture, add C. Diff to routine stool culture For Rule out C. Diff 1x 2023 Active 2023 Once daily Other False Butrans 5 mcg/hour transdermal patch 1 patch Transdermal Every 7 Days For Pain 1 patch 2023 Active 2023 11518 77771 4 Every week Transd ermal False Pantoprazol e 40 mg tablet,nu yed release [generic] 40 mg By Mouth Twice daily For gerd 40 mg 2023 Active 2023 40361 29109 0 Twice daily By Mouth False Scopolamine 1 mg over 3 days transdermal patch [generic] 1 Transdermal Every 72 hours For nausea 1 11/20 Inactiv e 2023 28035 86117 4 Every 72 hours Transd ermal False Ondansetron 4 mg disintegrat ing tablet [generic] 11/14 Inactiv e 2023 25932 68264 4 Ondansetron 4 mg disintegrat ing tablet [generic] 4 mg By Mouth Every 8 hours For Nausea 4 mg 2023 Active 2023 75513 99548 4 Every 8 hours By Mouth False Miralax 17 gram oral powder packet 8.5 g (1/2 capful) By Mouth Once daily For constipation 8.5 g 11/18 Inactiv e 2023 76129 81699 6 Once daily By Mouth False Pioglitazon e 15 mg tablet [generic] 11/14 Inactiv e 2023 45530 13442 1 E11.9 Pioglitazon e 15 mg tablet [generic] 7.5mg ( half a tab) By Mouth Once daily For TYPE 2 DIABETES MELLITUS WITHOUT COMPLICATIONS 7.5mg 2023 Active 2023 88275 01868 1 Once daily By Mouth E11.9 False Mylanta Coat-Cool 1,200 mg-270 mg-80 mg/10 mL oral suspension 10 ml By Mouth Every 8 hours As Needed For heartburn, indigestion, gas 10 ml 2023 Active 2023 62549 76718 1 Every 8 hours By Mouth False Prochlorper azine maleate 5 mg tablet [generic] 5 mg By Mouth Every 8 hours as needed For Nausea 5 mg 2023 Active 2023 20306 33149 1 Every 8 hours as needed By Mouth False Potassium chloride ER 10 mEq capsule,ext ended release [generic] 10 meq By Mouth 4 times a day For Hypokalemia 10 meq 11/20 Inactiv e 2023 67826 34660 1 4 times a day By Mouth False Lorazepam 0.5 mg tablet [generic] 11/18 Inactiv e 2023 76220 20170 0 Lorazepam 0.5 mg tablet [generic] 0.5 mg By Mouth Every 8 hours as needed For Anxiety 0.5 mg 12/18 Active 2023 44269 80758 0 Every 8 hours as needed By Mouth False Flomax 0.4 mg capsule 11/18 Inactiv e 2023 20017 84938 1 Flomax 0.4 mg capsule 0.4 mg By Mouth Once daily For Urinary retention 0.4 mg 11/19 Inactiv e 2023 15862 73162 1 Once daily By Mouth False Oxycodone 5 mg tablet [generic] 11/18 Inactiv e 2023 46010 03671 1 Oxycodone 5 mg tablet [generic] 5 mg By Mouth Every 6 hours as needed For Back Pain 5 mg 2023 Active 2023 58240 67662 1 Every 6 hours as needed By Mouth False Cipro 250 mg tablet 250 mg By Mouth Twice daily For UTI 250 mg 11/19 Inactiv e 2023 74326 35089 1 Twice daily By Mouth False Senna 8.6 mg tablet 17.2 mg By Mouth Twice daily For Constipation 17.2 mg 2023 Active 2023 11205 13894 1 Twice daily By Mouth False Zyprexa 2.5 mg tablet 2.5 mg By Mouth At bedtime For persistent nausea 2.5 mg 2023 Active 2023 09768 60971 0 At bedtime By Mouth False MAGNESSIUM GLUCONATE 500mg By Mouth Every morning For Supplement 500mg 2023 Active 2023 Every morning By Mouth False Cipro 250 mg tablet 11/19 Inactiv e 2023 23922 17878 1 Cipro 250 mg tablet 250 mg By Mouth Twice daily For UTI 250 mg 11/26 Active 2023 44322 26550 1 Twice daily By Mouth False Flomax 0.4 mg capsule 11/19 Inactiv e 2023 56516 91298 1 Flomax 0.4 mg capsule 0.4 mg By Mouth Once daily For Urinary retention 0.4 mg 11/20 Inactiv e 2023 72165 86540 1 Once daily By Mouth False Motrin IB 200 mg tablet 600 mg By Mouth Every 12 hours As Needed For Pain 600 mg 11/20 Inactiv e 2023 00624 30430 2 Every 12 hours By Mouth False Motrin IB 200 mg tablet 600 mg By Mouth Every 12 hours As Needed For Pain 600 mg 11/20 Inactiv e 2023 50038 39521 2 Every 12 hours By Mouth False Motrin IB 200 mg tablet 600 mg By Mouth Every 12 hours As Needed For Pain 600 mg 11/27 Active 2023 53673 48194 2 Every 12 hours By Mouth False Flomax 0.4 mg capsule 0.4 mg By Mouth Once daily For Urinary retention 0.4 mg 2023 Active 2023 96092 98780 1 Once daily By Mouth False Scopolamine 1 mg over 3 days transdermal patch [generic] 1 Transdermal Every 72 hours For nausea 1 11/22 Active 2023 81944 33600 4 Every 72 hours Transd ermal False [...] weight Temperature SpO2 Blood Sugar Pulse Respirations 83210 918 77777 5 75.00 mm[Hg] - Sitting 140.00 mm[Hg] - Sitting 65 NI 98.00 Tympanic 95.00 % 102.00 /min 18.00/min 01766 918 98720 9 67084 918 19954 2 75.00 mm[Hg] - Sitting 140.00 mm[Hg] - Sitting 98.00 Tympanic 102.00 /min 18.00/min 02604 918 77667 3 04174 918 08789 1 72.00 mm[Hg] - Sitting 138.00 mm[Hg] - Sitting 98.40 Tympanic 37436 918 68008 4 88.00/ min 18.00/min 81418 919 09560 4 71.00 mm[Hg] - Sitting 115.00 mm[Hg] - Sitting 98.30 Tympanic 97.00 % 86.00/ min 16.00/min 68457 919 48899 0 71.00 mm[Hg] - Sitting 115.00 mm[Hg] - Sitting 98.30 Tympanic 86.00/ min 16.00/min 02485 919 47365 7 71.00 mm[Hg] - Sitting 115.00 mm[Hg] - Sitting 98.30 Tympanic 86.00/ min 16.00/min 72860 920 44898 6 72.00 mm[Hg] - Sitting 112.00 mm[Hg] - Sitting 98.10 Tympanic 82.00/ min 18.00/min 03521 920 80842 0 75.00 mm[Hg] - Sitting 130.00 mm[Hg] - Sitting 98.40 Forehead Scan 93.00 % 88.00/ min 18.00/min 85465 920 87549 2 75.00 mm[Hg] - Lying Down 130.00 mm[Hg] - Lying Down 98.40 Tympanic 88.00/ min 18.00/min 09334 920 64682 5 75.00 mm[Hg] - Lying Down 130.00 mm[Hg] - Lying Down 98.40 Tympanic 88.00/ min 18.00/min 95308 920 76880 6 199.00 NI 18590 920 72192 3 75.00 mm[Hg] - Sitting 130.00 mm[Hg] - Sitting 98.40 Tympanic 88.00/ min 18.00/min 78148 921 37325 1 71.00 mm[Hg] - Lying Down 119.00 mm[Hg] - Lying Down 98.40 Forehead Scan 96.00 % 83.00/ min 16.00/min 79076 922 02414 6 71.00 mm[Hg] - Lying Down 128.00 mm[Hg] - Lying Down 98.30 Forehead Scan 94.00 % 84.00/ min 18.00/min 91059 923 79323 4 63.00 mm[Hg] - Sitting 105.00 mm[Hg] - Sitting 98.20 Tympanic 93.00 % 93.00/ min 18.00/min 42591 924 88627 8 66.00 mm[Hg] - Sitting 104.00 mm[Hg] - Sitting 98.20 Tympanic 98.00 % 84.00/ min 16.00/min 73847 925 38098 2 131.00 mg/dL 46720 925 82181 6 138.00 mg/dL 23730 926 25540 1 199.00 NI
--- OUTSIDE RECORDS SUMMARY | 2023-12-13 23:56 | External Medical Summary | Continuity Of Care Document ---
Author Name Unknown Address [address] [place] [address] Organization [facility] () Care Team Providers Care Is Support Analyst Name Role Phone DO Parson Amy Primary Care Provider [phone] Allergies Allergy Reaction Start Date End Date [...] 3 0.1 mL 11/13 Inactiv e 2023 06585 22671 0 1 time Intrad ermal False Tubersol 5 tub. unit/0.1 mL intradermal injection solution [Tuberculin PPD] 0.1mL Intradermal 1 time For PPD 2nd Step Give 2nd Step PPD Day 1 and Read results Day 3 (schedule 7 days after 1st READ) 0.1mL 11/13 Inactiv e 2023 01168 13201 0 1 time Intrad ermal False DISCONTINUE as of 11/14/2023: Tubersol 5 tub. unit/0.1 mL intradermal injection solution [Tuberculin PPD] 11/13 Inactiv e 2023 81858 32646 0 Tubersol 5 tub. unit/0.1 mL intradermal injection solution 0.1 mL Intradermal 1 time For PPD Step 1 GIVE on Day 1 and read results Day 3 0.1 mL 11/16 Inactiv e 2023 29784 99681 1 1 time Intrad ermal False DISCONTINUE as of 11/14/2023: Tubersol 5 tub. unit/0.1 mL intradermal injection solution [Tuberculin PPD] 11/13 Inactiv e 2023 62587 55344 0 Tubersol 5 tub. unit/0.1 mL intradermal injection solution 0.1mL Intradermal 1 time For PPD 2nd Step Give 2nd Step PPD Day 1 and Read results Day 3 (schedule 7 days after 1st READ) 0.1mL 11/25 Active 2023 88304 13432 1 1 time Intrad ermal False Tylenol 325 mg tablet 2 tabs By Mouth Every 4 hours as needed For Pain DO NOT EXCEED 3000 MG APAP/24 Hours 2 tabs 202300 /0000 Active 2023 31517 43061 0 Every 4 hours as needed By Mouth False Tylenol 325 mg tablet 2 tabs By Mouth Every 4 hours as needed For Fever >100 DO NOT EXCEED 3000 MG APAP/24 Hours 2 tabs 202300 /0000 Active 2023 26067 14883 0 Every 4 hours as needed By Mouth False Dulcolax (bisacodyl) 10 mg rectal suppository One Suppository per rectum PRN if Milk of Magnisia ineffective. Give on day 5 of no BM 1 sup 2023 Active 2023 45173 11657 1 Daily as needed Rectal False Fleet Enema 19 gram-7 gram/118 mL Administer per rectum PRN one time if dulcolax suppository not effective. Give on day 6 of no BM 1 202300 0000 Active 2023 53179 72826 6 Daily as needed Rectal False Dextrose 50 % in water (D50W) intravenous solution [generic] Dextrose 50% reyes 20-50 ml (slow push) Intravenous if Glucagon not effective after 15 minutes. CALL 911 for ED Evaluation. 50% reyes 202300 /0000 Active 2023 63142 70003 9 Intrav enous False Glucagon (HCl) Emergency Kit 1 mg solution for injection Administer Glucagon 1 mg Intramuscular if 15 minutes after GLucose Gel is administered Glucose remains less than 70 1 mg 2023 Active 2023 57413 43201 2 Intram uscula r False Glucose Gel 40 % oral gel [Dextrose] PRN If resident is unable to swallow (with or without symptoms) and Glucose results less than 70 give GLucose 40% Gel 1 tube orally - Recheck Glucose 15 minutes after administratio n. 1 tube 2023 Active 2023 40477 00966 8 By Mouth False Lorazepam 0.5 mg tablet [generic] 0.5 mg By Mouth Every 8 hours as needed For Anxiety 0.5 mg 11/18 Inactiv e 2023 69263 23375 0 Every 8 hours as needed By Mouth False Potassium chloride ER 20 mEq tablet,exte nded release [generic] 40 meq By Mouth Once daily For Hypokalemia 40 meq 11/13 Inactiv e 2023 13859 16722 1 Once daily By Mouth False Colesevelam 625 mg tablet [generic] 1250 mg By Mouth Twice daily For TYPE 2 DIABETES MELLITUS WITHOUT COMPLICATIONS 1250 mg 11/19 Inactiv e 2023 38529 32639 1 Twice daily By Mouth E11.9 False Pioglitazon e 15 mg tablet [generic] 15 mg By Mouth Once daily For TYPE 2 DIABETES MELLITUS WITHOUT COMPLICATIONS 15 mg 11/14 Inactiv e 2023 55017 35155 1 Once daily By Mouth E11.9 False Cholecalcif hardeep (vitamin D3) 50 mcg (2,000 unit) tablet [generic] 50 mcg By Mouth Once daily For Supplement 50 mcg 2023 Active 2023 70979 34366 1 Once daily By Mouth False Colchicine 0.6 mg tablet [generic] 0.6 mg By Mouth Twice daily As Needed For Gout 0.6 mg 2023 Active 2023 43984 22128 4 Twice daily By Mouth False Levothyroxi ne 200 mcg tablet [generic] 200 mcg By Mouth Once daily For Hypothyroidis m 200 mcg 202300 0000 Active 2023 24240 86739 0 Once daily By Mouth False Ondansetron 4 mg disintegrat ing tablet [generic] 4 mg By Mouth Every 6 hours as needed For Nausea 4 mg 11/12 Inactiv e 2023 22152 48321 4 Every 6 hours as needed By Mouth False Docusate sodium 100 mg capsule [generic] 100 mg By Mouth Twice daily For Constipation 100 mg 202300 0000 Active 2023 55129 74354 1 Twice daily By Mouth False Oxycodone 5 mg tablet [generic] 5 mg By Mouth Every 6 hours as needed For Pain 5 mg 11/12 Inactiv e 2023 70475 71518 1 Every 6 hours as needed By Mouth False Oxycodone 5 mg tablet [generic] 5 mg By Mouth Every 6 hours as needed For Pain 5 mg 11/18 Inactiv e 2023 15306 41473 1 Every 6 hours as needed By Mouth False Milk of Magnesia 400 mg/5 mL oral suspension 30 ml By Mouth one time per day as needed if no BM x 3 days For Constipation 30 ml 202300 Active 2023 73900 08006 2 By Mouth False Ondansetron 4 mg disintegrat ing tablet [generic] 11/12 Inactiv e 2023 91158 91731 4 Ondansetron 4 mg disintegrat ing tablet [generic] 4 mg By Mouth Every 6 hours as needed For Nausea 4 mg 11/14 Inactiv e 2023 72260 36501 4 Every 6 hours as needed By Mouth False Potassium chloride ER 10 mEq capsule,ext ended release [generic] 40 mEq By Mouth Once daily For hypokalemia 40 mEq 11/17 Inactiv e 2023 69629 23059 1 Once daily By Mouth False Potassium chloride ER 10 mEq capsule,ext ended release [generic] 4 capsules By Mouth At bedtime For hypokalemia 4 capsule s 11/16 Inactiv e 2023 56039 69210 1 At bedtime By Mouth False Flomax 0.4 mg capsule 0.4 mg By Mouth At bedtime For Urinary retention 0.4 mg 11/18 Inactiv e 2023 13250 95852 1 At bedtime By Mouth False STOOL CULTURE Once daily Obtain stool culture, add C. Diff to routine stool culture For Rule out C. Diff 1x 2023 Active 2023 Once daily Other False Butrans 5 mcg/hour transdermal patch 1 patch Transdermal Every 7 Days For Pain 1 patch 2023 Active 2023 80787 82906 4 Every week Transd ermal False Pantoprazol e 40 mg tablet,nu yed release [generic] 40 mg By Mouth Twice daily For gerd 40 mg 2023 Active 2023 67000 94587 0 Twice daily By Mouth False Scopolamine 1 mg over 3 days transdermal patch [generic] 1 Transdermal Every 72 hours For nausea 1 11/20 Inactiv e 2023 63245 49310 4 Every 72 hours Transd ermal False Ondansetron 4 mg disintegrat ing tablet [generic] 11/14 Inactiv e 2023 15569 87544 4 Ondansetron 4 mg disintegrat ing tablet [generic] 4 mg By Mouth Every 8 hours For Nausea 4 mg 2023 Active 2023 79902 46325 4 Every 8 hours By Mouth False Miralax 17 gram oral powder packet 8.5 g (1/2 capful) By Mouth Once daily For constipation 8.5 g 11/18 Inactiv e 2023 24787 36520 6 Once daily By Mouth False Pioglitazon e 15 mg tablet [generic] 11/14 Inactiv e 2023 82471 07731 1 E11.9 Pioglitazon e 15 mg tablet [generic] 7.5mg ( half a tab) By Mouth Once daily For TYPE 2 DIABETES MELLITUS WITHOUT COMPLICATIONS 7.5mg 2023 Active 2023 99065 63523 1 Once daily By Mouth E11.9 False Mylanta Coat-Cool 1,200 mg-270 mg-80 mg/10 mL oral suspension 10 ml By Mouth Every 8 hours As Needed For heartburn, indigestion, gas 10 ml 2023 Active 2023 90384 80595 1 Every 8 hours By Mouth False Prochlorper azine maleate 5 mg tablet [generic] 5 mg By Mouth Every 8 hours as needed For Nausea 5 mg 2023 Active 2023 92647 55625 1 Every 8 hours as needed By Mouth False Potassium chloride ER 10 mEq capsule,ext ended release [generic] 10 meq By Mouth 4 times a day For Hypokalemia 10 meq 11/20 Inactiv e 2023 98828 37999 1 4 times a day By Mouth False Lorazepam 0.5 mg tablet [generic] 11/18 Inactiv e 2023 01688 11271 0 Lorazepam 0.5 mg tablet [generic] 0.5 mg By Mouth Every 8 hours as needed For Anxiety 0.5 mg 12/18 Active 2023 90182 74005 0 Every 8 hours as needed By Mouth False Flomax 0.4 mg capsule 11/18 Inactiv e 2023 18702 67519 1 Flomax 0.4 mg capsule 0.4 mg By Mouth Once daily For Urinary retention 0.4 mg 11/19 Inactiv e 2023 72902 37932 1 Once daily By Mouth False Oxycodone 5 mg tablet [generic] 11/18 Inactiv e 2023 28599 28314 1 Oxycodone 5 mg tablet [generic] 5 mg By Mouth Every 6 hours as needed For Back Pain 5 mg 2023 Active 2023 14442 03523 1 Every 6 hours as needed By Mouth False Cipro 250 mg tablet 250 mg By Mouth Twice daily For UTI 250 mg 11/19 Inactiv e 2023 93548 38443 1 Twice daily By Mouth False Senna 8.6 mg tablet 17.2 mg By Mouth Twice daily For Constipation 17.2 mg 2023 Active 2023 19452 27111 1 Twice daily By Mouth False Zyprexa 2.5 mg tablet 2.5 mg By Mouth At bedtime For persistent nausea 2.5 mg 2023 Active 2023 21647 99096 0 At bedtime By Mouth False MAGNESSIUM GLUCONATE 500mg By Mouth Every morning For Supplement 500mg 2023 Active 2023 Every morning By Mouth False Cipro 250 mg tablet 11/19 Inactiv e 2023 06664 50878 1 Cipro 250 mg tablet 250 mg By Mouth Twice daily For UTI 250 mg 11/26 Active 2023 13180 31109 1 Twice daily By Mouth False Flomax 0.4 mg capsule 11/19 Inactiv e 2023 23284 65089 1 Flomax 0.4 mg capsule 0.4 mg By Mouth Once daily For Urinary retention 0.4 mg 11/20 Inactiv e 2023 89206 78194 1 Once daily By Mouth False Motrin IB 200 mg tablet 600 mg By Mouth Every 12 hours As Needed For Pain 600 mg 11/20 Inactiv e 2023 77493 84863 2 Every 12 hours By Mouth False Motrin IB 200 mg tablet 600 mg By Mouth Every 12 hours As Needed For Pain 600 mg 11/20 Inactiv e 2023 13246 17653 2 Every 12 hours By Mouth False Motrin IB 200 mg tablet 600 mg By Mouth Every 12 hours As Needed For Pain 600 mg 11/27 Active 2023 43967 86163 2 Every 12 hours By Mouth False Flomax 0.4 mg capsule 0.4 mg By Mouth Once daily For Urinary retention 0.4 mg 2023 Active 2023 18884 91458 1 Once daily By Mouth False Scopolamine 1 mg over 3 days transdermal patch [generic] 1 Transdermal Every 72 hours For nausea 1 2023 Active 2023 16916 52122 4 Every 72 hours Transd ermal False [...] weight Temperature SpO2 Blood Sugar Pulse Respirations 64618 918 55934 5 75.00 mm[Hg] - Sitting 140.00 mm[Hg] - Sitting 65 NI 98.00 Tympanic 95.00 % 102.00 /min 18.00/min 05095 918 32318 9 08866 918 13190 2 75.00 mm[Hg] - Sitting 140.00 mm[Hg] - Sitting 98.00 Tympanic 102.00 /min 18.00/min 23784 918 99451 3 34438 918 40516 1 72.00 mm[Hg] - Sitting 138.00 mm[Hg] - Sitting 98.40 Tympanic 92390 918 63679 4 88.00/ min 18.00/min 43876 919 60685 4 71.00 mm[Hg] - Sitting 115.00 mm[Hg] - Sitting 98.30 Tympanic 97.00 % 86.00/ min 16.00/min 15943 919 74081 0 71.00 mm[Hg] - Sitting 115.00 mm[Hg] - Sitting 98.30 Tympanic 86.00/ min 16.00/min 79308 919 13381 7 71.00 mm[Hg] - Sitting 115.00 mm[Hg] - Sitting 98.30 Tympanic 86.00/ min 16.00/min 52885 920 88641 6 72.00 mm[Hg] - Sitting 112.00 mm[Hg] - Sitting 98.10 Tympanic 82.00/ min 18.00/min 15027 920 38260 0 75.00 mm[Hg] - Sitting 130.00 mm[Hg] - Sitting 98.40 Forehead Scan 93.00 % 88.00/ min 18.00/min 06152 920 49945 2 75.00 mm[Hg] - Lying Down 130.00 mm[Hg] - Lying Down 98.40 Tympanic 88.00/ min 18.00/min 67355 920 69543 5 75.00 mm[Hg] - Lying Down 130.00 mm[Hg] - Lying Down 98.40 Tympanic 88.00/ min 18.00/min 87780 920 39028 6 199.00 NI 03872 920 44384 3 75.00 mm[Hg] - Sitting 130.00 mm[Hg] - Sitting 98.40 Tympanic 88.00/ min 18.00/min 18248 921 71652 1 71.00 mm[Hg] - Lying Down 119.00 mm[Hg] - Lying Down 98.40 Forehead Scan 96.00 % 83.00/ min 16.00/min 76491 922 26958 6 71.00 mm[Hg] - Lying Down 128.00 mm[Hg] - Lying Down 98.30 Forehead Scan 94.00 % 84.00/ min 18.00/min 56786 923 04717 4 63.00 mm[Hg] - Sitting 105.00 mm[Hg] - Sitting 98.20 Tympanic 93.00 % 93.00/ min 18.00/min 11845 924 48235 8 66.00 mm[Hg] - Sitting 104.00 mm[Hg] - Sitting 98.20 Tympanic 98.00 % 84.00/ min 16.00/min 56843 925 57356 2 131.00 mg/dL 67956 925 00153 6 138.00 mg/dL 66961 926 32904 1 199.00 NI
--- OUTSIDE RECORDS SUMMARY | 2023-12-13 23:56 | External Medical Summary | Continuity Of Care Document ---
Author Name Unknown Address [address] [place] [address] [address] [facility] [place] () Care Team Providers Care Hospitality Job Titles Name Role Phone DO Parson Amy Primary Care Provider [phone] Allergies Allergy Reaction Start Date End Date [...] 3 0.1 mL 11/13 Inactiv e 2023 68966 44094 0 1 time Intrad ermal False Tubersol 5 tub. unit/0.1 mL intradermal injection solution [Tuberculin PPD] 0.1mL Intradermal 1 time For PPD 2nd Step Give 2nd Step PPD Day 1 and Read results Day 3 (schedule 7 days after 1st READ) 0.1mL 11/13 Inactiv e 2023 57757 72666 0 1 time Intrad ermal False DISCONTINUE as of 11/14/2023: Tubersol 5 tub. unit/0.1 mL intradermal injection solution [Tuberculin PPD] 11/13 Inactiv e 2023 36839 82314 0 Tubersol 5 tub. unit/0.1 mL intradermal injection solution 0.1 mL Intradermal 1 time For PPD Step 1 GIVE on Day 1 and read results Day 3 0.1 mL 11/16 Inactiv e 2023 62027 67926 1 1 time Intrad ermal False DISCONTINUE as of 11/14/2023: Tubersol 5 tub. unit/0.1 mL intradermal injection solution [Tuberculin PPD] 11/13 Inactiv e 2023 02803 39606 0 Tubersol 5 tub. unit/0.1 mL intradermal injection solution 0.1mL Intradermal 1 time For PPD 2nd Step Give 2nd Step PPD Day 1 and Read results Day 3 (schedule 7 days after 1st READ) 0.1mL 11/25 Active 2023 99887 51375 1 1 time Intrad ermal False Tylenol 325 mg tablet 2 tabs By Mouth Every 4 hours as needed For Pain DO NOT EXCEED 3000 MG APAP/24 Hours 2 tabs 202300 /0000 Active 2023 04725 69371 0 Every 4 hours as needed By Mouth False Tylenol 325 mg tablet 2 tabs By Mouth Every 4 hours as needed For Fever >100 DO NOT EXCEED 3000 MG APAP/24 Hours 2 tabs 202300 /0000 Active 2023 19857 89593 0 Every 4 hours as needed By Mouth False Dulcolax (bisacodyl) 10 mg rectal suppository One Suppository per rectum PRN if Milk of Magnisia ineffective. Give on day 5 of no BM 1 sup 2023 Active 2023 05940 90489 1 Daily as needed Rectal False Fleet Enema 19 gram-7 gram/118 mL Administer per rectum PRN one time if dulcolax suppository not effective. Give on day 6 of no BM 1 202300 0000 Active 2023 26633 81223 6 Daily as needed Rectal False Dextrose 50 % in water (D50W) intravenous solution [generic] Dextrose 50% reyes 20-50 ml (slow push) Intravenous if Glucagon not effective after 15 minutes. CALL 911 for ED Evaluation. 50% reyes 202300 /0000 Active 2023 74550 47359 9 Intrav enous False Glucagon (HCl) Emergency Kit 1 mg solution for injection Administer Glucagon 1 mg Intramuscular if 15 minutes after GLucose Gel is administered Glucose remains less than 70 1 mg 2023 Active 2023 71909 04177 2 Intram uscula r False Glucose Gel 40 % oral gel [Dextrose] PRN If resident is unable to swallow (with or without symptoms) and Glucose results less than 70 give GLucose 40% Gel 1 tube orally - Recheck Glucose 15 minutes after administratio n. 1 tube 2023 Active 2023 65147 36728 8 By Mouth False Lorazepam 0.5 mg tablet [generic] 0.5 mg By Mouth Every 8 hours as needed For Anxiety 0.5 mg 11/18 Inactiv e 2023 98843 71578 0 Every 8 hours as needed By Mouth False Potassium chloride ER 20 mEq tablet,exte nded release [generic] 40 meq By Mouth Once daily For Hypokalemia 40 meq 11/13 Inactiv e 2023 72659 31703 1 Once daily By Mouth False Colesevelam 625 mg tablet [generic] 1250 mg By Mouth Twice daily For TYPE 2 DIABETES MELLITUS WITHOUT COMPLICATIONS 1250 mg 11/19 Inactiv e 2023 09248 80766 1 Twice daily By Mouth E11.9 False Pioglitazon e 15 mg tablet [generic] 15 mg By Mouth Once daily For TYPE 2 DIABETES MELLITUS WITHOUT COMPLICATIONS 15 mg 11/14 Inactiv e 2023 67701 40317 1 Once daily By Mouth E11.9 False Cholecalcif hardeep (vitamin D3) 50 mcg (2,000 unit) tablet [generic] 50 mcg By Mouth Once daily For Supplement 50 mcg 2023 Active 2023 69718 19594 1 Once daily By Mouth False Colchicine 0.6 mg tablet [generic] 0.6 mg By Mouth Twice daily As Needed For Gout 0.6 mg 2023 Active 2023 61901 06449 4 Twice daily By Mouth False Levothyroxi ne 200 mcg tablet [generic] 200 mcg By Mouth Once daily For Hypothyroidis m 200 mcg 202300 0000 Active 2023 21925 92496 0 Once daily By Mouth False Ondansetron 4 mg disintegrat ing tablet [generic] 4 mg By Mouth Every 6 hours as needed For Nausea 4 mg 11/12 Inactiv e 2023 51961 94169 4 Every 6 hours as needed By Mouth False Docusate sodium 100 mg capsule [generic] 100 mg By Mouth Twice daily For Constipation 100 mg 202300 0000 Active 2023 10156 94867 1 Twice daily By Mouth False Oxycodone 5 mg tablet [generic] 5 mg By Mouth Every 6 hours as needed For Pain 5 mg 11/12 Inactiv e 2023 05815 83804 1 Every 6 hours as needed By Mouth False Oxycodone 5 mg tablet [generic] 5 mg By Mouth Every 6 hours as needed For Pain 5 mg 11/18 Inactiv e 2023 05366 51892 1 Every 6 hours as needed By Mouth False Milk of Magnesia 400 mg/5 mL oral suspension 30 ml By Mouth one time per day as needed if no BM x 3 days For Constipation 30 ml 202300 Active 2023 32565 32183 2 By Mouth False Ondansetron 4 mg disintegrat ing tablet [generic] 11/12 Inactiv e 2023 79798 93463 4 Ondansetron 4 mg disintegrat ing tablet [generic] 4 mg By Mouth Every 6 hours as needed For Nausea 4 mg 11/14 Inactiv e 2023 69330 31953 4 Every 6 hours as needed By Mouth False Potassium chloride ER 10 mEq capsule,ext ended release [generic] 40 mEq By Mouth Once daily For hypokalemia 40 mEq 11/17 Inactiv e 2023 36226 67912 1 Once daily By Mouth False Potassium chloride ER 10 mEq capsule,ext ended release [generic] 4 capsules By Mouth At bedtime For hypokalemia 4 capsule s 11/16 Inactiv e 2023 14448 47402 1 At bedtime By Mouth False Flomax 0.4 mg capsule 0.4 mg By Mouth At bedtime For Urinary retention 0.4 mg 11/18 Inactiv e 2023 05358 78258 1 At bedtime By Mouth False STOOL CULTURE Once daily Obtain stool culture, add C. Diff to routine stool culture For Rule out C. Diff 1x 2023 Active 2023 Once daily Other False Butrans 5 mcg/hour transdermal patch 1 patch Transdermal Every 7 Days For Pain 1 patch 11/20 Inactiv e 2023 72486 40671 4 Every week Transd ermal False Pantoprazol e 40 mg tablet,nu yed release [generic] 40 mg By Mouth Twice daily For gerd 40 mg 2023 Active 2023 73157 78545 0 Twice daily By Mouth False Scopolamine 1 mg over 3 days transdermal patch [generic] 1 Transdermal Every 72 hours For nausea 1 11/20 Inactiv e 2023 06231 26845 4 Every 72 hours Transd ermal False Ondansetron 4 mg disintegrat ing tablet [generic] 11/14 Inactiv e 2023 84373 39903 4 Ondansetron 4 mg disintegrat ing tablet [generic] 4 mg By Mouth Every 8 hours For Nausea 4 mg 2023 Active 2023 60071 28053 4 Every 8 hours By Mouth False Miralax 17 gram oral powder packet 8.5 g (1/2 capful) By Mouth Once daily For constipation 8.5 g 11/18 Inactiv e 2023 59299 23993 6 Once daily By Mouth False Pioglitazon e 15 mg tablet [generic] 11/14 Inactiv e 2023 02634 87978 1 E11.9 Pioglitazon e 15 mg tablet [generic] 7.5mg ( half a tab) By Mouth Once daily For TYPE 2 DIABETES MELLITUS WITHOUT COMPLICATIONS 7.5mg 2023 Active 2023 70488 62334 1 Once daily By Mouth E11.9 False Mylanta Coat-Cool 1,200 mg-270 mg-80 mg/10 mL oral suspension 10 ml By Mouth Every 8 hours As Needed For heartburn, indigestion, gas 10 ml 2023 Active 2023 66705 94961 1 Every 8 hours By Mouth False Prochlorper azine maleate 5 mg tablet [generic] 5 mg By Mouth Every 8 hours as needed For Nausea 5 mg 2023 Active 2023 90288 86704 1 Every 8 hours as needed By Mouth False Potassium chloride ER 10 mEq capsule,ext ended release [generic] 10 meq By Mouth 4 times a day For Hypokalemia 10 meq 11/20 Inactiv e 2023 34790 64462 1 4 times a day By Mouth False Lorazepam 0.5 mg tablet [generic] 11/18 Inactiv e 2023 99799 06558 0 Lorazepam 0.5 mg tablet [generic] 0.5 mg By Mouth Every 8 hours as needed For Anxiety 0.5 mg 12/18 Active 2023 69753 07692 0 Every 8 hours as needed By Mouth False Flomax 0.4 mg capsule 11/18 Inactiv e 2023 83127 53836 1 Flomax 0.4 mg capsule 0.4 mg By Mouth Once daily For Urinary retention 0.4 mg 11/19 Inactiv e 2023 92120 26708 1 Once daily By Mouth False Oxycodone 5 mg tablet [generic] 11/18 Inactiv e 2023 16405 71919 1 Oxycodone 5 mg tablet [generic] 5 mg By Mouth Every 6 hours as needed For Back Pain 5 mg 2023 Active 2023 93651 73978 1 Every 6 hours as needed By Mouth False Cipro 250 mg tablet 250 mg By Mouth Twice daily For UTI 250 mg 11/19 Inactiv e 2023 23195 55348 1 Twice daily By Mouth False Senna 8.6 mg tablet 17.2 mg By Mouth Twice daily For Constipation 17.2 mg 2023 Active 2023 68333 13260 1 Twice daily By Mouth False Zyprexa 2.5 mg tablet 2.5 mg By Mouth At bedtime For persistent nausea 2.5 mg 2023 Active 2023 44558 65143 0 At bedtime By Mouth False MAGNESSIUM GLUCONATE 500mg By Mouth Every morning For Supplement 500mg 2023 Active 2023 Every morning By Mouth False Cipro 250 mg tablet 11/19 Inactiv e 2023 88230 44493 1 Cipro 250 mg tablet 250 mg By Mouth Twice daily For UTI 250 mg 11/26 Active 2023 11987 50256 1 Twice daily By Mouth False Flomax 0.4 mg capsule 11/19 Inactiv e 2023 04070 76568 1 Flomax 0.4 mg capsule 0.4 mg By Mouth Once daily For Urinary retention 0.4 mg 11/20 Inactiv e 2023 16005 85895 1 Once daily By Mouth False Motrin IB 200 mg tablet 600 mg By Mouth Every 12 hours As Needed For Pain 600 mg 11/20 Inactiv e 2023 87300 52972 2 Every 12 hours By Mouth False Motrin IB 200 mg tablet 600 mg By Mouth Every 12 hours As Needed For Pain 600 mg 11/20 Inactiv e 2023 83201 53078 2 Every 12 hours By Mouth False Motrin IB 200 mg tablet 600 mg By Mouth Every 12 hours As Needed For Pain 600 mg 11/27 Active 2023 40779 03597 2 Every 12 hours By Mouth False Flomax 0.4 mg capsule 0.4 mg By Mouth Once daily For Urinary retention 0.4 mg 2023 Active 2023 19425 14936 1 Once daily By Mouth False Scopolamine 1 mg over 3 days transdermal patch [generic] 1 Transdermal Every 72 hours For nausea 1 11/22 Active 2023 51649 34078 4 Every 72 hours Transd ermal False Butrans 7.5 mcg/hour transdermal patch 1 patch Transdermal Every 7 Days For Pain 1 patch 2023 Active 2023 22896 96201 4 Every week Transd ermal False Tizanidine 2 mg tablet [generic] 2mg By Mouth At bedtime For Muscle spasms 2mg 2023 Active 2023 28145 70264 0 At bedtime By Mouth False Prednisone 20 mg tablet [generic] 60 mg By Mouth 1 time For Sciatica Pain 60 mg 11/22 Active 2023 73498 24190 1 1 time By Mouth False Problems [...] Active M46.1 Sacroiliitis, not elsewhere classified 11/13/19 24 Active M54.9 Dorsalgia, unspecified 11/13/2023 Ac tive [...] weight Temperature SpO2 Blood Sugar Pulse Respirations 89724 5 75.00 mm[Hg] - Sitting 140.00 mm[Hg] - Sitting 65 NI 98.00 Tympanic 95.00 % 102.00 /min 18.00/min 8 27298 9 8 82814 2 75.00 mm[Hg] - Sitting 140.00 mm[Hg] - Sitting 98.00 Tympanic 102.00 /min 18.00/min 39486 918 56589 3 72329 8 43642 1 72.00 mm[Hg] - Sitting 138.00 mm[Hg] - Sitting 98.40 Tympanic 8 19389 4 88.00/ min 18.00/min 919 86950 4 71.00 mm[Hg] - Sitting 115.00 mm[Hg] - Sitting 98.30 Tympanic 97.00 % 86.00/ min 16.00/min 75875 919 76543 0 71.00 mm[Hg] - Sitting 115.00 mm[Hg] - Sitting 98.30 Tympanic 86.00/ min 16.00/min 89227 919 70313 7 71.00 mm[Hg] - Sitting 115.00 mm[Hg] - Sitting 98.30 Tympanic 86.00/ min 16.00/min 79051 920 10846 6 72.00 mm[Hg] - Sitting 112.00 mm[Hg] - Sitting 98.10 Tympanic 82.00/ min 18.00/min 75228 920 39376 0 75.00 mm[Hg] - Sitting 130.00 mm[Hg] - Sitting 98.40 Forehead Scan 93.00 % 88.00/ min 18.00/min 55538 920 78796 2 75.00 mm[Hg] - Lying Down 130.00 mm[Hg] - Lying Down 98.40 Tympanic 88.00/ min 18.00/min 51332 920 99367 5 75.00 mm[Hg] - Lying Down 130.00 mm[Hg] - Lying Down 98.40 Tympanic 88.00/ min 18.00/min 12501 920 64923 6 199.00 NI 67459 920 98304 3 75.00 mm[Hg] - Sitting 130.00 mm[Hg] - Sitting 98.40 Tympanic 88.00/ min 18.00/min 90213 921 91750 1 71.00 mm[Hg] - Lying Down 119.00 mm[Hg] - Lying Down 98.40 Forehead Scan 96.00 % 83.00/ min 16.00/min 52837 922 10470 6 71.00 mm[Hg] - Lying Down 128.00 mm[Hg] - Lying Down 98.30 Forehead Scan 94.00 % 84.00/ min 18.00/min 57119 923 00672 4 63.00 mm[Hg] - Sitting 105.00 mm[Hg] - Sitting 98.20 Tympanic 93.00 % 93.00/ min 18.00/min 67570 924 74544 8 66.00 mm[Hg] - Sitting 104.00 mm[Hg] - Sitting 98.20 Tympanic 98.00 % 84.00/ min 16.00/min 09166 925 67203 2 131.00 mg/dL 53890 925 62219 6 138.00 mg/dL 10011 926 96572 1 199.00 NI
--- OUTSIDE RECORDS SUMMARY | 2023-12-13 23:56 | External Medical Summary | Continuity Of Care Document ---
Author Name Unknown Address [address] [place] [address] Organization [facility] () Care Team Providers Care Perl Programmer Name Role Phone DO Parson Amy Primary Care Provider [phone] Allergies Allergy Reaction Start Date End Date [...] 3 0.1 mL 11/13 Inactiv e 2023 92509 77776 0 1 time Intrad ermal False Tubersol 5 tub. unit/0.1 mL intradermal injection solution [Tuberculin PPD] 0.1mL Intradermal 1 time For PPD 2nd Step Give 2nd Step PPD Day 1 and Read results Day 3 (schedule 7 days after 1st READ) 0.1mL 11/13 Inactiv e 2023 71701 92418 0 1 time Intrad ermal False DISCONTINUE as of 11/14/2023: Tubersol 5 tub. unit/0.1 mL intradermal injection solution [Tuberculin PPD] 11/13 Inactiv e 2023 76159 02682 0 Tubersol 5 tub. unit/0.1 mL intradermal injection solution 0.1 mL Intradermal 1 time For PPD Step 1 GIVE on Day 1 and read results Day 3 0.1 mL 11/16 Inactiv e 2023 29697 70161 1 1 time Intrad ermal False DISCONTINUE as of 11/14/2023: Tubersol 5 tub. unit/0.1 mL intradermal injection solution [Tuberculin PPD] 11/13 Inactiv e 2023 73088 96786 0 Tubersol 5 tub. unit/0.1 mL intradermal injection solution 0.1mL Intradermal 1 time For PPD 2nd Step Give 2nd Step PPD Day 1 and Read results Day 3 (schedule 7 days after 1st READ) 0.1mL 11/25 Active 2023 30347 05776 1 1 time Intrad ermal False Tylenol 325 mg tablet 2 tabs By Mouth Every 4 hours as needed For Pain DO NOT EXCEED 3000 MG APAP/24 Hours 2 tabs 202300 /0000 Active 2023 52437 55325 0 Every 4 hours as needed By Mouth False Tylenol 325 mg tablet 2 tabs By Mouth Every 4 hours as needed For Fever >100 DO NOT EXCEED 3000 MG APAP/24 Hours 2 tabs 202300 /0000 Active 2023 81988 39426 0 Every 4 hours as needed By Mouth False Dulcolax (bisacodyl) 10 mg rectal suppository One Suppository per rectum PRN if Milk of Magnisia ineffective. Give on day 5 of no BM 1 sup 2023 Active 2023 70318 24631 1 Daily as needed Rectal False Fleet Enema 19 gram-7 gram/118 mL Administer per rectum PRN one time if dulcolax suppository not effective. Give on day 6 of no BM 1 202300 0000 Active 2023 64949 27340 6 Daily as needed Rectal False Dextrose 50 % in water (D50W) intravenous solution [generic] Dextrose 50% reyes 20-50 ml (slow push) Intravenous if Glucagon not effective after 15 minutes. CALL 911 for ED Evaluation. 50% reyes 202300 /0000 Active 2023 70725 66924 9 Intrav enous False Glucagon (HCl) Emergency Kit 1 mg solution for injection Administer Glucagon 1 mg Intramuscular if 15 minutes after GLucose Gel is administered Glucose remains less than 70 1 mg 2023 Active 2023 26364 36563 2 Intram uscula r False Glucose Gel 40 % oral gel [Dextrose] PRN If resident is unable to swallow (with or without symptoms) and Glucose results less than 70 give GLucose 40% Gel 1 tube orally - Recheck Glucose 15 minutes after administratio n. 1 tube 2023 Active 2023 31876 07833 8 By Mouth False Lorazepam 0.5 mg tablet [generic] 0.5 mg By Mouth Every 8 hours as needed For Anxiety 0.5 mg 11/18 Inactiv e 2023 27892 87076 0 Every 8 hours as needed By Mouth False Potassium chloride ER 20 mEq tablet,exte nded release [generic] 40 meq By Mouth Once daily For Hypokalemia 40 meq 11/13 Inactiv e 2023 47717 49696 1 Once daily By Mouth False Colesevelam 625 mg tablet [generic] 1250 mg By Mouth Twice daily For TYPE 2 DIABETES MELLITUS WITHOUT COMPLICATIONS 1250 mg 11/19 Inactiv e 2023 53231 97882 1 Twice daily By Mouth E11.9 False Pioglitazon e 15 mg tablet [generic] 15 mg By Mouth Once daily For TYPE 2 DIABETES MELLITUS WITHOUT COMPLICATIONS 15 mg 11/14 Inactiv e 2023 25221 06363 1 Once daily By Mouth E11.9 False Cholecalcif hardeep (vitamin D3) 50 mcg (2,000 unit) tablet [generic] 50 mcg By Mouth Once daily For Supplement 50 mcg 2023 Active 2023 31506 30616 1 Once daily By Mouth False Colchicine 0.6 mg tablet [generic] 0.6 mg By Mouth Twice daily As Needed For Gout 0.6 mg 2023 Active 2023 28669 30529 4 Twice daily By Mouth False Levothyroxi ne 200 mcg tablet [generic] 200 mcg By Mouth Once daily For Hypothyroidis m 200 mcg 202300 0000 Active 2023 22565 88254 0 Once daily By Mouth False Ondansetron 4 mg disintegrat ing tablet [generic] 4 mg By Mouth Every 6 hours as needed For Nausea 4 mg 11/12 Inactiv e 2023 19653 10744 4 Every 6 hours as needed By Mouth False Docusate sodium 100 mg capsule [generic] 100 mg By Mouth Twice daily For Constipation 100 mg 202300 0000 Active 2023 22423 57265 1 Twice daily By Mouth False Oxycodone 5 mg tablet [generic] 5 mg By Mouth Every 6 hours as needed For Pain 5 mg 11/12 Inactiv e 2023 43587 25374 1 Every 6 hours as needed By Mouth False Oxycodone 5 mg tablet [generic] 5 mg By Mouth Every 6 hours as needed For Pain 5 mg 11/18 Inactiv e 2023 91685 12189 1 Every 6 hours as needed By Mouth False Milk of Magnesia 400 mg/5 mL oral suspension 30 ml By Mouth one time per day as needed if no BM x 3 days For Constipation 30 ml 202300 Active 2023 82401 31099 2 By Mouth False Ondansetron 4 mg disintegrat ing tablet [generic] 11/12 Inactiv e 2023 87078 13656 4 Ondansetron 4 mg disintegrat ing tablet [generic] 4 mg By Mouth Every 6 hours as needed For Nausea 4 mg 11/14 Inactiv e 2023 15037 98651 4 Every 6 hours as needed By Mouth False Potassium chloride ER 10 mEq capsule,ext ended release [generic] 40 mEq By Mouth Once daily For hypokalemia 40 mEq 11/17 Inactiv e 2023 74904 18442 1 Once daily By Mouth False Potassium chloride ER 10 mEq capsule,ext ended release [generic] 4 capsules By Mouth At bedtime For hypokalemia 4 capsule s 11/16 Inactiv e 2023 22506 06621 1 At bedtime By Mouth False Flomax 0.4 mg capsule 0.4 mg By Mouth At bedtime For Urinary retention 0.4 mg 11/18 Inactiv e 2023 98833 91042 1 At bedtime By Mouth False STOOL CULTURE Once daily Obtain stool culture, add C. Diff to routine stool culture For Rule out C. Diff 1x 2023 Active 2023 Once daily Other False Butrans 5 mcg/hour transdermal patch 1 patch Transdermal Every 7 Days For Pain 1 patch 11/20 Inactiv e 2023 45052 41480 4 Every week Transd ermal False Pantoprazol e 40 mg tablet,nu yed release [generic] 40 mg By Mouth Twice daily For gerd 40 mg 2023 Active 2023 94711 41789 0 Twice daily By Mouth False Scopolamine 1 mg over 3 days transdermal patch [generic] 1 Transdermal Every 72 hours For nausea 1 11/20 Inactiv e 2023 34238 14653 4 Every 72 hours Transd ermal False Ondansetron 4 mg disintegrat ing tablet [generic] 11/14 Inactiv e 2023 15259 75368 4 Ondansetron 4 mg disintegrat ing tablet [generic] 4 mg By Mouth Every 8 hours For Nausea 4 mg 2023 Active 2023 41087 67839 4 Every 8 hours By Mouth False Miralax 17 gram oral powder packet 8.5 g (1/2 capful) By Mouth Once daily For constipation 8.5 g 11/18 Inactiv e 2023 44522 61233 6 Once daily By Mouth False Pioglitazon e 15 mg tablet [generic] 11/14 Inactiv e 2023 14888 27857 1 E11.9 Pioglitazon e 15 mg tablet [generic] 7.5mg ( half a tab) By Mouth Once daily For TYPE 2 DIABETES MELLITUS WITHOUT COMPLICATIONS 7.5mg 2023 Active 2023 08793 87885 1 Once daily By Mouth E11.9 False Mylanta Coat-Cool 1,200 mg-270 mg-80 mg/10 mL oral suspension 10 ml By Mouth Every 8 hours As Needed For heartburn, indigestion, gas 10 ml 2023 Active 2023 44034 29297 1 Every 8 hours By Mouth False Prochlorper azine maleate 5 mg tablet [generic] 5 mg By Mouth Every 8 hours as needed For Nausea 5 mg 2023 Active 2023 11984 07088 1 Every 8 hours as needed By Mouth False Potassium chloride ER 10 mEq capsule,ext ended release [generic] 10 meq By Mouth 4 times a day For Hypokalemia 10 meq 11/20 Inactiv e 2023 06534 72804 1 4 times a day By Mouth False Lorazepam 0.5 mg tablet [generic] 11/18 Inactiv e 2023 52365 94808 0 Lorazepam 0.5 mg tablet [generic] 0.5 mg By Mouth Every 8 hours as needed For Anxiety 0.5 mg 12/18 Active 2023 37794 33386 0 Every 8 hours as needed By Mouth False Flomax 0.4 mg capsule 11/18 Inactiv e 2023 32641 34628 1 Flomax 0.4 mg capsule 0.4 mg By Mouth Once daily For Urinary retention 0.4 mg 11/19 Inactiv e 2023 43440 57004 1 Once daily By Mouth False Oxycodone 5 mg tablet [generic] 11/18 Inactiv e 2023 45394 11773 1 Oxycodone 5 mg tablet [generic] 5 mg By Mouth Every 6 hours as needed For Back Pain 5 mg 2023 Active 2023 40292 17593 1 Every 6 hours as needed By Mouth False Cipro 250 mg tablet 250 mg By Mouth Twice daily For UTI 250 mg 11/19 Inactiv e 2023 42027 87914 1 Twice daily By Mouth False Senna 8.6 mg tablet 17.2 mg By Mouth Twice daily For Constipation 17.2 mg 2023 Active 2023 37083 75596 1 Twice daily By Mouth False Zyprexa 2.5 mg tablet 2.5 mg By Mouth At bedtime For persistent nausea 2.5 mg 2023 Active 2023 56484 57083 0 At bedtime By Mouth False MAGNESSIUM GLUCONATE 500mg By Mouth Every morning For Supplement 500mg 2023 Active 2023 Every morning By Mouth False Cipro 250 mg tablet 11/19 Inactiv e 2023 50085 02476 1 Cipro 250 mg tablet 250 mg By Mouth Twice daily For UTI 250 mg 11/26 Active 2023 43348 49212 1 Twice daily By Mouth False Flomax 0.4 mg capsule 11/19 Inactiv e 2023 51805 29982 1 Flomax 0.4 mg capsule 0.4 mg By Mouth Once daily For Urinary retention 0.4 mg 11/20 Inactiv e 2023 06623 03504 1 Once daily By Mouth False Motrin IB 200 mg tablet 600 mg By Mouth Every 12 hours As Needed For Pain 600 mg 11/20 Inactiv e 2023 11039 39710 2 Every 12 hours By Mouth False Motrin IB 200 mg tablet 600 mg By Mouth Every 12 hours As Needed For Pain 600 mg 11/20 Inactiv e 2023 48660 81415 2 Every 12 hours By Mouth False Motrin IB 200 mg tablet 600 mg By Mouth Every 12 hours As Needed For Pain 600 mg 11/27 Active 2023 04257 14889 2 Every 12 hours By Mouth False Flomax 0.4 mg capsule 0.4 mg By Mouth Once daily For Urinary retention 0.4 mg 2023 Active 2023 17427 17668 1 Once daily By Mouth False Scopolamine 1 mg over 3 days transdermal patch [generic] 1 Transdermal Every 72 hours For nausea 1 11/22 Active 2023 91492 11669 4 Every 72 hours Transd ermal False Butrans 7.5 mcg/hour transdermal patch 1 patch Transdermal Every 7 Days For Pain 1 patch 2023 Active 2023 92615 53168 4 Every week Transd ermal False Tizanidine 2 mg tablet [generic] 2mg By Mouth At bedtime For Muscle spasms 2mg 2023 Active 2023 38730 09034 0 At bedtime By Mouth False Problems [...] Temperature SpO2 Blood Sugar Pulse Respirations 8 89470 5 75.00 mm[Hg] - Sitting 140.00 mm[Hg] - Sitting 65 NI 98.00 Tympanic 95.00 % 102.00 /min 18.00/min 918 33349 9 71074 918 26889 2 75.00 mm[Hg] - Sitting 140.00 mm[Hg] - Sitting 98.00 Tympanic 102.00 /min 18.00/min 04738 918 76346 3 37133 918 30182 1 72.00 mm[Hg] - Sitting 138.00 mm[Hg] - Sitting 98.40 Tympanic 918 86801 4 88.00/ min 18.00/min 919 70812 4 71.00 mm[Hg] - Sitting 115.00 mm[Hg] - Sitting 98.30 Tympanic 97.00 % 86.00/ min 16.00/min 47122 919 42383 0 71.00 mm[Hg] - Sitting 115.00 mm[Hg] - Sitting 98.30 Tympanic 86.00/ min 16.00/min 31934 919 07737 7 71.00 mm[Hg] - Sitting 115.00 mm[Hg] - Sitting 98.30 Tympanic 86.00/ min 16.00/min 68931 920 13785 6 72.00 mm[Hg] - Sitting 112.00 mm[Hg] - Sitting 98.10 Tympanic 82.00/ min 18.00/min 95677 920 85150 0 75.00 mm[Hg] - Sitting 130.00 mm[Hg] - Sitting 98.40 Forehead Scan 93.00 % 88.00/ min 18.00/min 88540 920 57240 2 75.00 mm[Hg] - Lying Down 130.00 mm[Hg] - Lying Down 98.40 Tympanic 88.00/ min 18.00/min 07804 920 31743 5 75.00 mm[Hg] - Lying Down 130.00 mm[Hg] - Lying Down 98.40 Tympanic 88.00/ min 18.00/min 52941 920 04701 6 199.00 NI 7[address]70 920 03782 3 75.00 mm[Hg] - Sitting 130.00 mm[Hg] - Sitting 98.40 Tympanic 88.00/ min 18.00/min 53800 921 62110 1 71.00 mm[Hg] - Lying Down 119.00 mm[Hg] - Lying Down 98.40 Forehead Scan 96.00 % 83.00/ min 16.00/min 33301 922 41966 6 71.00 mm[Hg] - Lying Down 128.00 mm[Hg] - Lying Down 98.30 Forehead Scan 94.00 % 84.00/ min 18.00/min 42266 923 81382 4 63.00 mm[Hg] - Sitting 105.00 mm[Hg] - Sitting 98.20 Tympanic 93.00 % 93.00/ min 18.00/min 51943 924 38818 8 66.00 mm[Hg] - Sitting 104.00 mm[Hg] - Sitting 98.20 Tympanic 98.00 % 84.00/ min 16.00/min 47398 925 32565 2 131.00 mg/dL 75033 925 15228 6 138.00 mg/dL 85910 926 16031 1 199.00 NI
--- OUTSIDE RECORDS SUMMARY | 2023-12-13 23:56 | External Medical Summary | Continuity Of Care Document ---
Author Name Unknown Address [address] [place] [address] Organization [facility] [place] () Care Team Providers Care Pediatric Ophthalmologist Name Role Phone DO Parson Amy Primary Care Provider [phone] Allergies Allergy Reaction Start Date End Date [...] 3 0.1 mL 11/13 Inactiv e 2023 78973 60900 0 1 time Intrad ermal False Tubersol 5 tub. unit/0.1 mL intradermal injection solution [Tuberculin PPD] 0.1mL Intradermal 1 time For PPD 2nd Step Give 2nd Step PPD Day 1 and Read results Day 3 (schedule 7 days after 1st READ) 0.1mL 11/13 Inactiv e 2023 55329 67901 0 1 time Intrad ermal False DISCONTINUE as of 11/14/2023: Tubersol 5 tub. unit/0.1 mL intradermal injection solution [Tuberculin PPD] 11/13 Inactiv e 2023 75281 56041 0 Tubersol 5 tub. unit/0.1 mL intradermal injection solution 0.1 mL Intradermal 1 time For PPD Step 1 GIVE on Day 1 and read results Day 3 0.1 mL 11/16 Inactiv e 2023 86756 43108 1 1 time Intrad ermal False DISCONTINUE as of 11/14/2023: Tubersol 5 tub. unit/0.1 mL intradermal injection solution [Tuberculin PPD] 11/13 Inactiv e 2023 53142 07992 0 Tubersol 5 tub. unit/0.1 mL intradermal injection solution 0.1mL Intradermal 1 time For PPD 2nd Step Give 2nd Step PPD Day 1 and Read results Day 3 (schedule 7 days after 1st READ) 0.1mL 11/25 Active 2023 97429 16134 1 1 time Intrad ermal False Tylenol 325 mg tablet 2 tabs By Mouth Every 4 hours as needed For Pain DO NOT EXCEED 3000 MG APAP/24 Hours 2 tabs 202300 /0000 Active 2023 48515 26327 0 Every 4 hours as needed By Mouth False Tylenol 325 mg tablet 2 tabs By Mouth Every 4 hours as needed For Fever >100 DO NOT EXCEED 3000 MG APAP/24 Hours 2 tabs 202300 /0000 Active 2023 51197 55308 0 Every 4 hours as needed By Mouth False Dulcolax (bisacodyl) 10 mg rectal suppository One Suppository per rectum PRN if Milk of Magnisia ineffective. Give on day 5 of no BM 1 sup 2023 Active 2023 55292 44361 1 Daily as needed Rectal False Fleet Enema 19 gram-7 gram/118 mL Administer per rectum PRN one time if dulcolax suppository not effective. Give on day 6 of no BM 1 202300 0000 Active 2023 69746 69570 6 Daily as needed Rectal False Dextrose 50 % in water (D50W) intravenous solution [generic] Dextrose 50% reyes 20-50 ml (slow push) Intravenous if Glucagon not effective after 15 minutes. CALL 911 for ED Evaluation. 50% reyes 202300 /0000 Active 2023 41863 50877 9 Intrav enous False Glucagon (HCl) Emergency Kit 1 mg solution for injection Administer Glucagon 1 mg Intramuscular if 15 minutes after GLucose Gel is administered Glucose remains less than 70 1 mg 2023 Active 2023 77929 13457 2 Intram uscula r False Glucose Gel 40 % oral gel [Dextrose] PRN If resident is unable to swallow (with or without symptoms) and Glucose results less than 70 give GLucose 40% Gel 1 tube orally - Recheck Glucose 15 minutes after administratio n. 1 tube 2023 Active 2023 06827 21184 8 By Mouth False Lorazepam 0.5 mg tablet [generic] 0.5 mg By Mouth Every 8 hours as needed For Anxiety 0.5 mg 11/18 Inactiv e 2023 80962 52326 0 Every 8 hours as needed By Mouth False Potassium chloride ER 20 mEq tablet,exte nded release [generic] 40 meq By Mouth Once daily For Hypokalemia 40 meq 11/13 Inactiv e 2023 34503 55370 1 Once daily By Mouth False Colesevelam 625 mg tablet [generic] 1250 mg By Mouth Twice daily For TYPE 2 DIABETES MELLITUS WITHOUT COMPLICATIONS 1250 mg 11/19 Inactiv e 2023 01521 41065 1 Twice daily By Mouth E11.9 False Pioglitazon e 15 mg tablet [generic] 15 mg By Mouth Once daily For TYPE 2 DIABETES MELLITUS WITHOUT COMPLICATIONS 15 mg 11/14 Inactiv e 2023 44056 01540 1 Once daily By Mouth E11.9 False Cholecalcif hardeep (vitamin D3) 50 mcg (2,000 unit) tablet [generic] 50 mcg By Mouth Once daily For Supplement 50 mcg 2023 Active 2023 22558 38398 1 Once daily By Mouth False Colchicine 0.6 mg tablet [generic] 0.6 mg By Mouth Twice daily As Needed For Gout 0.6 mg 2023 Active 2023 56545 40344 4 Twice daily By Mouth False Levothyroxi ne 200 mcg tablet [generic] 200 mcg By Mouth Once daily For Hypothyroidis m 200 mcg 202300 0000 Active 2023 67740 21456 0 Once daily By Mouth False Ondansetron 4 mg disintegrat ing tablet [generic] 4 mg By Mouth Every 6 hours as needed For Nausea 4 mg 11/12 Inactiv e 2023 07378 02585 4 Every 6 hours as needed By Mouth False Docusate sodium 100 mg capsule [generic] 100 mg By Mouth Twice daily For Constipation 100 mg 202300 0000 Active 2023 60030 82353 1 Twice daily By Mouth False Oxycodone 5 mg tablet [generic] 5 mg By Mouth Every 6 hours as needed For Pain 5 mg 11/12 Inactiv e 2023 45452 52359 1 Every 6 hours as needed By Mouth False Oxycodone 5 mg tablet [generic] 5 mg By Mouth Every 6 hours as needed For Pain 5 mg 11/18 Inactiv e 2023 45909 46464 1 Every 6 hours as needed By Mouth False Milk of Magnesia 400 mg/5 mL oral suspension 30 ml By Mouth one time per day as needed if no BM x 3 days For Constipation 30 ml 202300 Active 2023 92263 36081 2 By Mouth False Ondansetron 4 mg disintegrat ing tablet [generic] 11/12 Inactiv e 2023 25676 30676 4 Ondansetron 4 mg disintegrat ing tablet [generic] 4 mg By Mouth Every 6 hours as needed For Nausea 4 mg 11/14 Inactiv e 2023 53806 12413 4 Every 6 hours as needed By Mouth False Potassium chloride ER 10 mEq capsule,ext ended release [generic] 40 mEq By Mouth Once daily For hypokalemia 40 mEq 11/17 Inactiv e 2023 60024 68170 1 Once daily By Mouth False Potassium chloride ER 10 mEq capsule,ext ended release [generic] 4 capsules By Mouth At bedtime For hypokalemia 4 capsule s 11/16 Inactiv e 2023 42638 65104 1 At bedtime By Mouth False Flomax 0.4 mg capsule 0.4 mg By Mouth At bedtime For Urinary retention 0.4 mg 11/18 Inactiv e 2023 53545 14943 1 At bedtime By Mouth False STOOL CULTURE Once daily Obtain stool culture, add C. Diff to routine stool culture For Rule out C. Diff 1x 2023 Active 2023 Once daily Other False Butrans 5 mcg/hour transdermal patch 1 patch Transdermal Every 7 Days For Pain 1 patch 11/20 Inactiv e 2023 14680 10439 4 Every week Transd ermal False Pantoprazol e 40 mg tablet,nu yed release [generic] 40 mg By Mouth Twice daily For gerd 40 mg 2023 Active 2023 36571 89430 0 Twice daily By Mouth False Scopolamine 1 mg over 3 days transdermal patch [generic] 1 Transdermal Every 72 hours For nausea 1 11/20 Inactiv e 2023 29622 88330 4 Every 72 hours Transd ermal False Ondansetron 4 mg disintegrat ing tablet [generic] 11/14 Inactiv e 2023 06546 28340 4 Ondansetron 4 mg disintegrat ing tablet [generic] 4 mg By Mouth Every 8 hours For Nausea 4 mg 2023 Active 2023 59238 70110 4 Every 8 hours By Mouth False Miralax 17 gram oral powder packet 8.5 g (1/2 capful) By Mouth Once daily For constipation 8.5 g 11/18 Inactiv e 2023 47749 27622 6 Once daily By Mouth False Pioglitazon e 15 mg tablet [generic] 11/14 Inactiv e 2023 95815 00461 1 E11.9 Pioglitazon e 15 mg tablet [generic] 7.5mg ( half a tab) By Mouth Once daily For TYPE 2 DIABETES MELLITUS WITHOUT COMPLICATIONS 7.5mg 2023 Active 2023 67268 91057 1 Once daily By Mouth E11.9 False Mylanta Coat-Cool 1,200 mg-270 mg-80 mg/10 mL oral suspension 10 ml By Mouth Every 8 hours As Needed For heartburn, indigestion, gas 10 ml 2023 Active 2023 04489 41909 1 Every 8 hours By Mouth False Prochlorper azine maleate 5 mg tablet [generic] 5 mg By Mouth Every 8 hours as needed For Nausea 5 mg 2023 Active 2023 47702 45603 1 Every 8 hours as needed By Mouth False Potassium chloride ER 10 mEq capsule,ext ended release [generic] 10 meq By Mouth 4 times a day For Hypokalemia 10 meq 11/20 Inactiv e 2023 58256 06216 1 4 times a day By Mouth False Lorazepam 0.5 mg tablet [generic] 11/18 Inactiv e 2023 76043 24618 0 Lorazepam 0.5 mg tablet [generic] 0.5 mg By Mouth Every 8 hours as needed For Anxiety 0.5 mg 12/18 Active 2023 54494 45100 0 Every 8 hours as needed By Mouth False Flomax 0.4 mg capsule 11/18 Inactiv e 2023 38085 84854 1 Flomax 0.4 mg capsule 0.4 mg By Mouth Once daily For Urinary retention 0.4 mg 11/19 Inactiv e 2023 97721 06965 1 Once daily By Mouth False Oxycodone 5 mg tablet [generic] 11/18 Inactiv e 2023 08082 49490 1 Oxycodone 5 mg tablet [generic] 5 mg By Mouth Every 6 hours as needed For Back Pain 5 mg 2023 Active 2023 23764 88004 1 Every 6 hours as needed By Mouth False Cipro 250 mg tablet 250 mg By Mouth Twice daily For UTI 250 mg 11/19 Inactiv e 2023 13365 64512 1 Twice daily By Mouth False Senna 8.6 mg tablet 17.2 mg By Mouth Twice daily For Constipation 17.2 mg 2023 Active 2023 01288 44586 1 Twice daily By Mouth False Zyprexa 2.5 mg tablet 2.5 mg By Mouth At bedtime For persistent nausea 2.5 mg 2023 Active 2023 19095 63651 0 At bedtime By Mouth False MAGNESSIUM GLUCONATE 500mg By Mouth Every morning For Supplement 500mg 2023 Active 2023 Every morning By Mouth False Cipro 250 mg tablet 11/19 Inactiv e 2023 36575 45886 1 Cipro 250 mg tablet 250 mg By Mouth Twice daily For UTI 250 mg 11/26 Active 2023 94165 07787 1 Twice daily By Mouth False Flomax 0.4 mg capsule 11/19 Inactiv e 2023 91956 86844 1 Flomax 0.4 mg capsule 0.4 mg By Mouth Once daily For Urinary retention 0.4 mg 11/20 Inactiv e 2023 64472 30541 1 Once daily By Mouth False Motrin IB 200 mg tablet 600 mg By Mouth Every 12 hours As Needed For Pain 600 mg 11/20 Inactiv e 2023 09611 17025 2 Every 12 hours By Mouth False Motrin IB 200 mg tablet 600 mg By Mouth Every 12 hours As Needed For Pain 600 mg 11/20 Inactiv e 2023 59832 35022 2 Every 12 hours By Mouth False Motrin IB 200 mg tablet 600 mg By Mouth Every 12 hours As Needed For Pain 600 mg 11/27 Active 2023 95798 43161 2 Every 12 hours By Mouth False Flomax 0.4 mg capsule 0.4 mg By Mouth Once daily For Urinary retention 0.4 mg 2023 Active 2023 73740 58437 1 Once daily By Mouth False Scopolamine 1 mg over 3 days transdermal patch [generic] 1 Transdermal Every 72 hours For nausea 1 11/22 Active 2023 75252 50516 4 Every 72 hours Transd ermal False Butrans 7.5 mcg/hour transdermal patch 1 patch Transdermal Every 7 Days For Pain 1 patch 2023 Active 2023 36428 41111 4 Every week Transd ermal False Tizanidine 2 mg tablet [generic] 2mg By Mouth At bedtime For Muscle spasms 2mg 2023 Active 2023 42809 99821 0 At bedtime By Mouth False Prednisone 20 mg tablet [generic] 60 mg By Mouth 1 time For Sciatica Pain 60 mg 11/22 Active 2023 57357 85300 1 1 time By Mouth False Prednisone 20 mg tablet [generic] 40mg By Mouth 1 time For Sciatica Pain 40mg 11/23 Active 2023 48067 63775 1 1 time By Mouth False Prednisone 20 mg tablet [generic] 20mg By Mouth 1 time For Sciatica 20mg 11/24 Active 2023 31086 22766 1 1 time By Mouth False ACCU CHECK Twice daily AM and PM for 7 Days while on Steroid with sliding scale. For Steroid BID 11/28 Active 2023 Twice daily Other False Problems Code Description Start Date End [...] weight Temperature SpO2 Blood Sugar Pulse Respirations 30254 5 75.00 mm[Hg] - Sitting 140.00 mm[Hg] - Sitting 65 NI 98.00 Tympanic 95.00 % 102.00 /min 18.00/min 8 54258 9 2 75.00 mm[Hg] - Sitting 140.00 mm[Hg] - Sitting 98.00 Tympanic 102.00 /min 18.00/min 8 40692 3 98236 1 72.00 mm[Hg] - Sitting 138.00 mm[Hg] - Sitting 98.40 Tympanic 66984 918 98935 4 88.00/ min 18.00/min 72601 919 00976 4 71.00 mm[Hg] - Sitting 115.00 mm[Hg] - Sitting 98.30 Tympanic 97.00 % 86.00/ min 16.00/min 42838 919 73704 0 71.00 mm[Hg] - Sitting 115.00 mm[Hg] - Sitting 98.30 Tympanic 86.00/ min 16.00/min 22988 919 88305 7 71.00 mm[Hg] - Sitting 115.00 mm[Hg] - Sitting 98.30 Tympanic 86.00/ min 16.00/min 53520 920 49743 6 72.00 mm[Hg] - Sitting 112.00 mm[Hg] - Sitting 98.10 Tympanic 82.00/ min 18.00/min 94406 920 92757 0 75.00 mm[Hg] - Sitting 130.00 mm[Hg] - Sitting 98.40 Forehead Scan 93.00 % 88.00/ min 18.00/min 12763 920 17146 2 75.00 mm[Hg] - Lying Down 130.00 mm[Hg] - Lying Down 98.40 Tympanic 88.00/ min 18.00/min 19242 920 43888 5 75.00 mm[Hg] - Lying Down 130.00 mm[Hg] - Lying Down 98.40 Tympanic 88.00/ min 18.00/min 33524 920 76586 6 199.00 NI 43357 920 64730 3 75.00 mm[Hg] - Sitting 130.00 mm[Hg] - Sitting 98.40 Tympanic 88.00/ min 18.00/min 87942 921 48081 1 71.00 mm[Hg] - Lying Down 119.00 mm[Hg] - Lying Down 98.40 Forehead Scan 96.00 % 83.00/ min 16.00/min 30255 922 66733 6 71.00 mm[Hg] - Lying Down 128.00 mm[Hg] - Lying Down 98.30 Forehead Scan 94.00 % 84.00/ min 18.00/min 42383 923 17364 4 63.00 mm[Hg] - Sitting 105.00 mm[Hg] - Sitting 98.20 Tympanic 93.00 % 93.00/ min 18.00/min 12432 924 42260 8 66.00 mm[Hg] - Sitting 104.00 mm[Hg] - Sitting 98.20 Tympanic 98.00 % 84.00/ min 16.00/min 40462 925 40565 2 131.00 mg/dL 68119 925 83705 6 138.00 mg/dL 53258 926 71568 1 199.00 NI
--- OUTSIDE RECORDS SUMMARY | 2023-12-13 23:56 | External Medical Summary | Continuity Of Care Document ---
Author Name Unknown Address [address] [place] [address] [facility] [place] () Care Team Providers Care Toll Relief Operator Name Role Phone DO Parson Amy Primary Care Provider [phone] Allergies Allergy Reaction Start Date End Date [...] 3 0.1 mL 11/13 Inactiv e 2023 85640 90644 0 1 time Intrad ermal False Tubersol 5 tub. unit/0.1 mL intradermal injection solution [Tuberculin PPD] 0.1mL Intradermal 1 time For PPD 2nd Step Give 2nd Step PPD Day 1 and Read results Day 3 (schedule 7 days after 1st READ) 0.1mL 11/13 Inactiv e 2023 47248 39332 0 1 time Intrad ermal False DISCONTINUE as of 11/14/2023: Tubersol 5 tub. unit/0.1 mL intradermal injection solution [Tuberculin PPD] 11/13 Inactiv e 2023 73188 25595 0 Tubersol 5 tub. unit/0.1 mL intradermal injection solution 0.1 mL Intradermal 1 time For PPD Step 1 GIVE on Day 1 and read results Day 3 0.1 mL 11/16 Inactiv e 2023 43790 61721 1 1 time Intrad ermal False DISCONTINUE as of 11/14/2023: Tubersol 5 tub. unit/0.1 mL intradermal injection solution [Tuberculin PPD] 11/13 Inactiv e 2023 75154 50519 0 Tubersol 5 tub. unit/0.1 mL intradermal injection solution 0.1mL Intradermal 1 time For PPD 2nd Step Give 2nd Step PPD Day 1 and Read results Day 3 (schedule 7 days after 1st READ) 0.1mL 11/25 Active 2023 94431 94542 1 1 time Intrad ermal False Tylenol 325 mg tablet 2 tabs By Mouth Every 4 hours as needed For Pain DO NOT EXCEED 3000 MG APAP/24 Hours 2 tabs 202300 /0000 Active 2023 42059 30586 0 Every 4 hours as needed By Mouth False Tylenol 325 mg tablet 2 tabs By Mouth Every 4 hours as needed For Fever >100 DO NOT EXCEED 3000 MG APAP/24 Hours 2 tabs 202300 /0000 Active 2023 55502 23119 0 Every 4 hours as needed By Mouth False Dulcolax (bisacodyl) 10 mg rectal suppository One Suppository per rectum PRN if Milk of Magnisia ineffective. Give on day 5 of no BM 1 sup 2023 Active 2023 78453 73536 1 Daily as needed Rectal False Fleet Enema 19 gram-7 gram/118 mL Administer per rectum PRN one time if dulcolax suppository not effective. Give on day 6 of no BM 1 202300 0000 Active 2023 86367 24041 6 Daily as needed Rectal False Dextrose 50 % in water (D50W) intravenous solution [generic] Dextrose 50% reyes 20-50 ml (slow push) Intravenous if Glucagon not effective after 15 minutes. CALL 911 for ED Evaluation. 50% reyes 202300 /0000 Active 2023 80932 90390 9 Intrav enous False Glucagon (HCl) Emergency Kit 1 mg solution for injection Administer Glucagon 1 mg Intramuscular if 15 minutes after GLucose Gel is administered Glucose remains less than 70 1 mg 2023 Active 2023 05445 41746 2 Intram uscula r False Glucose Gel 40 % oral gel [Dextrose] PRN If resident is unable to swallow (with or without symptoms) and Glucose results less than 70 give GLucose 40% Gel 1 tube orally - Recheck Glucose 15 minutes after administratio n. 1 tube 2023 Active 2023 98642 62154 8 By Mouth False Lorazepam 0.5 mg tablet [generic] 0.5 mg By Mouth Every 8 hours as needed For Anxiety 0.5 mg 11/18 Inactiv e 2023 47362 10131 0 Every 8 hours as needed By Mouth False Potassium chloride ER 20 mEq tablet,exte nded release [generic] 40 meq By Mouth Once daily For Hypokalemia 40 meq 11/13 Inactiv e 2023 71848 87056 1 Once daily By Mouth False Colesevelam 625 mg tablet [generic] 1250 mg By Mouth Twice daily For TYPE 2 DIABETES MELLITUS WITHOUT COMPLICATIONS 1250 mg 11/19 Inactiv e 2023 76192 87734 1 Twice daily By Mouth E11.9 False Pioglitazon e 15 mg tablet [generic] 15 mg By Mouth Once daily For TYPE 2 DIABETES MELLITUS WITHOUT COMPLICATIONS 15 mg 11/14 Inactiv e 2023 76116 79884 1 Once daily By Mouth E11.9 False Cholecalcif hardeep (vitamin D3) 50 mcg (2,000 unit) tablet [generic] 50 mcg By Mouth Once daily For Supplement 50 mcg 2023 Active 2023 41489 03385 1 Once daily By Mouth False Colchicine 0.6 mg tablet [generic] 0.6 mg By Mouth Twice daily As Needed For Gout 0.6 mg 2023 Active 2023 35353 85538 4 Twice daily By Mouth False Levothyroxi ne 200 mcg tablet [generic] 200 mcg By Mouth Once daily For Hypothyroidis m 200 mcg 202300 0000 Active 2023 95159 22496 0 Once daily By Mouth False Ondansetron 4 mg disintegrat ing tablet [generic] 4 mg By Mouth Every 6 hours as needed For Nausea 4 mg 11/12 Inactiv e 2023 44472 81511 4 Every 6 hours as needed By Mouth False Docusate sodium 100 mg capsule [generic] 100 mg By Mouth Twice daily For Constipation 100 mg 202300 0000 Active 2023 38260 23480 1 Twice daily By Mouth False Oxycodone 5 mg tablet [generic] 5 mg By Mouth Every 6 hours as needed For Pain 5 mg 11/12 Inactiv e 2023 44281 59194 1 Every 6 hours as needed By Mouth False Oxycodone 5 mg tablet [generic] 5 mg By Mouth Every 6 hours as needed For Pain 5 mg 11/18 Inactiv e 2023 78693 51542 1 Every 6 hours as needed By Mouth False Milk of Magnesia 400 mg/5 mL oral suspension 30 ml By Mouth one time per day as needed if no BM x 3 days For Constipation 30 ml 202300 Active 2023 76818 14527 2 By Mouth False Ondansetron 4 mg disintegrat ing tablet [generic] 11/12 Inactiv e 2023 83384 25625 4 Ondansetron 4 mg disintegrat ing tablet [generic] 4 mg By Mouth Every 6 hours as needed For Nausea 4 mg 11/14 Inactiv e 2023 18497 55466 4 Every 6 hours as needed By Mouth False Potassium chloride ER 10 mEq capsule,ext ended release [generic] 40 mEq By Mouth Once daily For hypokalemia 40 mEq 11/17 Inactiv e 2023 33375 85942 1 Once daily By Mouth False Potassium chloride ER 10 mEq capsule,ext ended release [generic] 4 capsules By Mouth At bedtime For hypokalemia 4 capsule s 11/16 Inactiv e 2023 15837 66421 1 At bedtime By Mouth False Flomax 0.4 mg capsule 0.4 mg By Mouth At bedtime For Urinary retention 0.4 mg 11/18 Inactiv e 2023 92996 82349 1 At bedtime By Mouth False STOOL CULTURE Once daily Obtain stool culture, add C. Diff to routine stool culture For Rule out C. Diff 1x 2023 Active 2023 Once daily Other False Butrans 5 mcg/hour transdermal patch 1 patch Transdermal Every 7 Days For Pain 1 patch 2023 Active 2023 27608 55804 4 Every week Transd ermal False Pantoprazol e 40 mg tablet,nu yed release [generic] 40 mg By Mouth Twice daily For gerd 40 mg 2023 Active 2023 83825 18791 0 Twice daily By Mouth False Scopolamine 1 mg over 3 days transdermal patch [generic] 1 Transdermal Every 72 hours For nausea 1 11/21 Active 2023 25399 79216 4 Every 72 hours Transd ermal False Ondansetron 4 mg disintegrat ing tablet [generic] 11/14 Inactiv e 2023 23337 29534 4 Ondansetron 4 mg disintegrat ing tablet [generic] 4 mg By Mouth Every 8 hours For Nausea 4 mg 2023 Active 2023 80438 75380 4 Every 8 hours By Mouth False Miralax 17 gram oral powder packet 8.5 g (1/2 capful) By Mouth Once daily For constipation 8.5 g 11/18 Inactiv e 2023 62322 47973 6 Once daily By Mouth False Pioglitazon e 15 mg tablet [generic] 11/14 Inactiv e 2023 48055 15657 1 E11.9 Pioglitazon e 15 mg tablet [generic] 7.5mg ( half a tab) By Mouth Once daily For TYPE 2 DIABETES MELLITUS WITHOUT COMPLICATIONS 7.5mg 2023 Active 2023 94866 41119 1 Once daily By Mouth E11.9 False Mylanta Coat-Cool 1,200 mg-270 mg-80 mg/10 mL oral suspension 10 ml By Mouth Every 8 hours As Needed For heartburn, indigestion, gas 10 ml 2023 Active 2023 74373 05283 1 Every 8 hours By Mouth False Prochlorper azine maleate 5 mg tablet [generic] 5 mg By Mouth Every 8 hours as needed For Nausea 5 mg 2023 Active 2023 71701 01923 1 Every 8 hours as needed By Mouth False Potassium chloride ER 10 mEq capsule,ext ended release [generic] 10 meq By Mouth 4 times a day For Hypokalemia 10 meq 11/20 Inactiv e 2023 97322 67224 1 4 times a day By Mouth False Lorazepam 0.5 mg tablet [generic] 11/18 Inactiv e 2023 50657 50356 0 Lorazepam 0.5 mg tablet [generic] 0.5 mg By Mouth Every 8 hours as needed For Anxiety 0.5 mg 12/18 Active 2023 99551 50652 0 Every 8 hours as needed By Mouth False Flomax 0.4 mg capsule 11/18 Inactiv e 2023 90822 08574 1 Flomax 0.4 mg capsule 0.4 mg By Mouth Once daily For Urinary retention 0.4 mg 11/19 Inactiv e 2023 44142 69460 1 Once daily By Mouth False Oxycodone 5 mg tablet [generic] 11/18 Inactiv e 2023 93766 69943 1 Oxycodone 5 mg tablet [generic] 5 mg By Mouth Every 6 hours as needed For Back Pain 5 mg 2023 Active 2023 92293 47607 1 Every 6 hours as needed By Mouth False Cipro 250 mg tablet 250 mg By Mouth Twice daily For UTI 250 mg 11/19 Inactiv e 2023 41951 88066 1 Twice daily By Mouth False Senna 8.6 mg tablet 17.2 mg By Mouth Twice daily For Constipation 17.2 mg 2023 Active 2023 39984 82993 1 Twice daily By Mouth False Zyprexa 2.5 mg tablet 2.5 mg By Mouth At bedtime For persistent nausea 2.5 mg 2023 Active 2023 19428 56194 0 At bedtime By Mouth False MAGNESSIUM GLUCONATE 500mg By Mouth Every morning For Supplement 500mg 2023 Active 2023 Every morning By Mouth False Cipro 250 mg tablet 11/19 Inactiv e 2023 42554 96122 1 Cipro 250 mg tablet 250 mg By Mouth Twice daily For UTI 250 mg 11/26 Active 2023 59950 65401 1 Twice daily By Mouth False Flomax 0.4 mg capsule 11/19 Inactiv e 2023 85565 15489 1 Flomax 0.4 mg capsule 0.4 mg By Mouth Once daily For Urinary retention 0.4 mg 11/26 Active 2023 87726 22028 1 Once daily By Mouth False Motrin IB 200 mg tablet 600 mg By Mouth Every 12 hours As Needed For Pain 600 mg 11/20 Inactiv e 2023 09941 39526 2 Every 12 hours By Mouth False Motrin IB 200 mg tablet 600 mg By Mouth Every 12 hours As Needed For Pain 600 mg 2023 Active 2023 09499 79795 2 Every 12 hours By Mouth False [...] weight Temperature SpO2 Blood Sugar Pulse Respirations 53697 5 75.00 mm[Hg] - Sitting 140.00 mm[Hg] - Sitting 65 NI 98.00 Tympanic 95.00 % 102.00 /min 18.00/min 8 08282 9 8 46224 2 75.00 mm[Hg] - Sitting 140.00 mm[Hg] - Sitting 98.00 Tympanic 102.00 /min 18.00/min 82774 918 41729 3 92377 918 75316 1 72.00 mm[Hg] - Sitting 138.00 mm[Hg] - Sitting 98.40 Tympanic 16245 8 62299 4 88.00/ min 18.00/min 00097 919 79982 4 71.00 mm[Hg] - Sitting 115.00 mm[Hg] - Sitting 98.30 Tympanic 97.00 % 86.00/ min 16.00/min 16227 919 17991 0 71.00 mm[Hg] - Sitting 115.00 mm[Hg] - Sitting 98.30 Tympanic 86.00/ min 16.00/min 85590 919 30937 7 71.00 mm[Hg] - Sitting 115.00 mm[Hg] - Sitting 98.30 Tympanic 86.00/ min 16.00/min 71608 920 97007 6 72.00 mm[Hg] - Sitting 112.00 mm[Hg] - Sitting 98.10 Tympanic 82.00/ min 18.00/min 87755 920 61560 0 75.00 mm[Hg] - Sitting 130.00 mm[Hg] - Sitting 98.40 Forehead Scan 93.00 % 88.00/ min 18.00/min 49133 920 30494 2 75.00 mm[Hg] - Lying Down 130.00 mm[Hg] - Lying Down 98.40 Tympanic 88.00/ min 18.00/min 47783 920 46041 5 75.00 mm[Hg] - Lying Down 130.00 mm[Hg] - Lying Down 98.40 Tympanic 88.00/ min 18.00/min 03430 920 60327 6 199.00 NI 01690 920 08434 3 75.00 mm[Hg] - Sitting 130.00 mm[Hg] - Sitting 98.40 Tympanic 88.00/ min 18.00/min 04792 921 78071 1 71.00 mm[Hg] - Lying Down 119.00 mm[Hg] - Lying Down 98.40 Forehead Scan 96.00 % 83.00/ min 16.00/min 43676 922 16347 6 71.00 mm[Hg] - Lying Down 128.00 mm[Hg] - Lying Down 98.30 Forehead Scan 94.00 % 84.00/ min 18.00/min 06076 923 55286 4 63.00 mm[Hg] - Sitting 105.00 mm[Hg] - Sitting 98.20 Tympanic 93.00 % 93.00/ min 18.00/min 15679 924 69518 8 66.00 mm[Hg] - Sitting 104.00 mm[Hg] - Sitting 98.20 Tympanic 98.00 % 84.00/ min 16.00/min 09913 925 46496 2 131.00 mg/dL 925 26905 6 138.00 mg/dL 926 61080 1 199.00 NI
--- OUTSIDE RECORDS SUMMARY | 2023-12-13 23:56 | External Medical Summary | Continuity Of Care Document ---
Author Name Unknown Address [address] [place] [address] Organization [facility] () Care Team Providers Care Patient Safety Tech Name Role Phone DO Parson Amy Primary Care Provider [phone] Allergies Allergy Reaction Start Date End Date [...] 3 0.1 mL 11/13 Inactiv e 2023 45378 38746 0 1 time Intrad ermal False Tubersol 5 tub. unit/0.1 mL intradermal injection solution [Tuberculin PPD] 0.1mL Intradermal 1 time For PPD 2nd Step Give 2nd Step PPD Day 1 and Read results Day 3 (schedule 7 days after 1st READ) 0.1mL 11/13 Inactiv e 2023 03209 65634 0 1 time Intrad ermal False DISCONTINUE as of 11/14/2023: Tubersol 5 tub. unit/0.1 mL intradermal injection solution [Tuberculin PPD] 11/13 Inactiv e 2023 80503 66974 0 Tubersol 5 tub. unit/0.1 mL intradermal injection solution 0.1 mL Intradermal 1 time For PPD Step 1 GIVE on Day 1 and read results Day 3 0.1 mL 11/16 Inactiv e 2023 20799 22024 1 1 time Intrad ermal False DISCONTINUE as of 11/14/2023: Tubersol 5 tub. unit/0.1 mL intradermal injection solution [Tuberculin PPD] 11/13 Inactiv e 2023 33834 55100 0 Tubersol 5 tub. unit/0.1 mL intradermal injection solution 0.1mL Intradermal 1 time For PPD 2nd Step Give 2nd Step PPD Day 1 and Read results Day 3 (schedule 7 days after 1st READ) 0.1mL 11/25 Active 2023 13795 77034 1 1 time Intrad ermal False Tylenol 325 mg tablet 2 tabs By Mouth Every 4 hours as needed For Pain DO NOT EXCEED 3000 MG APAP/24 Hours 2 tabs 202300 /0000 Active 2023 88033 31326 0 Every 4 hours as needed By Mouth False Tylenol 325 mg tablet 2 tabs By Mouth Every 4 hours as needed For Fever >100 DO NOT EXCEED 3000 MG APAP/24 Hours 2 tabs 202300 /0000 Active 2023 26915 00771 0 Every 4 hours as needed By Mouth False Dulcolax (bisacodyl) 10 mg rectal suppository One Suppository per rectum PRN if Milk of Magnisia ineffective. Give on day 5 of no BM 1 sup 2023 Active 2023 40322 76146 1 Daily as needed Rectal False Fleet Enema 19 gram-7 gram/118 mL Administer per rectum PRN one time if dulcolax suppository not effective. Give on day 6 of no BM 1 202300 0000 Active 2023 71131 36494 6 Daily as needed Rectal False Dextrose 50 % in water (D50W) intravenous solution [generic] Dextrose 50% reyes 20-50 ml (slow push) Intravenous if Glucagon not effective after 15 minutes. CALL 911 for ED Evaluation. 50% reyes 202300 /0000 Active 2023 27353 11781 9 Intrav enous False Glucagon (HCl) Emergency Kit 1 mg solution for injection Administer Glucagon 1 mg Intramuscular if 15 minutes after GLucose Gel is administered Glucose remains less than 70 1 mg 2023 Active 2023 17796 44546 2 Intram uscula r False Glucose Gel 40 % oral gel [Dextrose] PRN If resident is unable to swallow (with or without symptoms) and Glucose results less than 70 give GLucose 40% Gel 1 tube orally - Recheck Glucose 15 minutes after administratio n. 1 tube 2023 Active 2023 13104 42857 8 By Mouth False Lorazepam 0.5 mg tablet [generic] 0.5 mg By Mouth Every 8 hours as needed For Anxiety 0.5 mg 11/18 Inactiv e 2023 63447 89053 0 Every 8 hours as needed By Mouth False Potassium chloride ER 20 mEq tablet,exte nded release [generic] 40 meq By Mouth Once daily For Hypokalemia 40 meq 11/13 Inactiv e 2023 72437 95127 1 Once daily By Mouth False Colesevelam 625 mg tablet [generic] 1250 mg By Mouth Twice daily For TYPE 2 DIABETES MELLITUS WITHOUT COMPLICATIONS 1250 mg 11/19 Inactiv e 2023 90219 52290 1 Twice daily By Mouth E11.9 False Pioglitazon e 15 mg tablet [generic] 15 mg By Mouth Once daily For TYPE 2 DIABETES MELLITUS WITHOUT COMPLICATIONS 15 mg 11/14 Inactiv e 2023 80700 09516 1 Once daily By Mouth E11.9 False Cholecalcif hardeep (vitamin D3) 50 mcg (2,000 unit) tablet [generic] 50 mcg By Mouth Once daily For Supplement 50 mcg 2023 Active 2023 68276 93023 1 Once daily By Mouth False Colchicine 0.6 mg tablet [generic] 0.6 mg By Mouth Twice daily As Needed For Gout 0.6 mg 2023 Active 2023 66572 27390 4 Twice daily By Mouth False Levothyroxi ne 200 mcg tablet [generic] 200 mcg By Mouth Once daily For Hypothyroidis m 200 mcg 202300 0000 Active 2023 04864 95403 0 Once daily By Mouth False Ondansetron 4 mg disintegrat ing tablet [generic] 4 mg By Mouth Every 6 hours as needed For Nausea 4 mg 11/12 Inactiv e 2023 92327 03405 4 Every 6 hours as needed By Mouth False Docusate sodium 100 mg capsule [generic] 100 mg By Mouth Twice daily For Constipation 100 mg 202300 0000 Active 2023 92950 70784 1 Twice daily By Mouth False Oxycodone 5 mg tablet [generic] 5 mg By Mouth Every 6 hours as needed For Pain 5 mg 11/12 Inactiv e 2023 34719 83218 1 Every 6 hours as needed By Mouth False Oxycodone 5 mg tablet [generic] 5 mg By Mouth Every 6 hours as needed For Pain 5 mg 11/18 Inactiv e 2023 85591 62465 1 Every 6 hours as needed By Mouth False Milk of Magnesia 400 mg/5 mL oral suspension 30 ml By Mouth one time per day as needed if no BM x 3 days For Constipation 30 ml 202300 Active 2023 00708 56724 2 By Mouth False Ondansetron 4 mg disintegrat ing tablet [generic] 11/12 Inactiv e 2023 59320 03429 4 Ondansetron 4 mg disintegrat ing tablet [generic] 4 mg By Mouth Every 6 hours as needed For Nausea 4 mg 11/14 Inactiv e 2023 99262 51957 4 Every 6 hours as needed By Mouth False Potassium chloride ER 10 mEq capsule,ext ended release [generic] 40 mEq By Mouth Once daily For hypokalemia 40 mEq 11/17 Inactiv e 2023 17725 11587 1 Once daily By Mouth False Potassium chloride ER 10 mEq capsule,ext ended release [generic] 4 capsules By Mouth At bedtime For hypokalemia 4 capsule s 11/16 Inactiv e 2023 72550 15687 1 At bedtime By Mouth False Flomax 0.4 mg capsule 0.4 mg By Mouth At bedtime For Urinary retention 0.4 mg 11/18 Inactiv e 2023 24726 57474 1 At bedtime By Mouth False STOOL CULTURE Once daily Obtain stool culture, add C. Diff to routine stool culture For Rule out C. Diff 1x 2023 Active 2023 Once daily Other False Butrans 5 mcg/hour transdermal patch 1 patch Transdermal Every 7 Days For Pain 1 patch 11/20 Inactiv e 2023 84225 44084 4 Every week Transd ermal False Pantoprazol e 40 mg tablet,nu yed release [generic] 40 mg By Mouth Twice daily For gerd 40 mg 2023 Active 2023 85186 32357 0 Twice daily By Mouth False Scopolamine 1 mg over 3 days transdermal patch [generic] 1 Transdermal Every 72 hours For nausea 1 11/20 Inactiv e 2023 57356 03952 4 Every 72 hours Transd ermal False Ondansetron 4 mg disintegrat ing tablet [generic] 11/14 Inactiv e 2023 64478 61591 4 Ondansetron 4 mg disintegrat ing tablet [generic] 4 mg By Mouth Every 8 hours For Nausea 4 mg 2023 Active 2023 52756 87810 4 Every 8 hours By Mouth False Miralax 17 gram oral powder packet 8.5 g (1/2 capful) By Mouth Once daily For constipation 8.5 g 11/18 Inactiv e 2023 13687 31531 6 Once daily By Mouth False Pioglitazon e 15 mg tablet [generic] 11/14 Inactiv e 2023 33437 51810 1 E11.9 Pioglitazon e 15 mg tablet [generic] 7.5mg ( half a tab) By Mouth Once daily For TYPE 2 DIABETES MELLITUS WITHOUT COMPLICATIONS 7.5mg 2023 Active 2023 59092 26655 1 Once daily By Mouth E11.9 False Mylanta Coat-Cool 1,200 mg-270 mg-80 mg/10 mL oral suspension 10 ml By Mouth Every 8 hours As Needed For heartburn, indigestion, gas 10 ml 2023 Active 2023 86707 21452 1 Every 8 hours By Mouth False Prochlorper azine maleate 5 mg tablet [generic] 5 mg By Mouth Every 8 hours as needed For Nausea 5 mg 2023 Active 2023 59180 15397 1 Every 8 hours as needed By Mouth False Potassium chloride ER 10 mEq capsule,ext ended release [generic] 10 meq By Mouth 4 times a day For Hypokalemia 10 meq 11/20 Inactiv e 2023 77060 37069 1 4 times a day By Mouth False Lorazepam 0.5 mg tablet [generic] 11/18 Inactiv e 2023 61936 04069 0 Lorazepam 0.5 mg tablet [generic] 0.5 mg By Mouth Every 8 hours as needed For Anxiety 0.5 mg 12/18 Active 2023 32595 47902 0 Every 8 hours as needed By Mouth False Flomax 0.4 mg capsule 11/18 Inactiv e 2023 22703 29139 1 Flomax 0.4 mg capsule 0.4 mg By Mouth Once daily For Urinary retention 0.4 mg 11/19 Inactiv e 2023 54258 73823 1 Once daily By Mouth False Oxycodone 5 mg tablet [generic] 11/18 Inactiv e 2023 42371 47676 1 Oxycodone 5 mg tablet [generic] 5 mg By Mouth Every 6 hours as needed For Back Pain 5 mg 2023 Active 2023 85431 57954 1 Every 6 hours as needed By Mouth False Cipro 250 mg tablet 250 mg By Mouth Twice daily For UTI 250 mg 11/19 Inactiv e 2023 05488 89167 1 Twice daily By Mouth False Senna 8.6 mg tablet 17.2 mg By Mouth Twice daily For Constipation 17.2 mg 2023 Active 2023 09380 53853 1 Twice daily By Mouth False Zyprexa 2.5 mg tablet 2.5 mg By Mouth At bedtime For persistent nausea 2.5 mg 2023 Active 2023 06458 38915 0 At bedtime By Mouth False MAGNESSIUM GLUCONATE 500mg By Mouth Every morning For Supplement 500mg 2023 Active 2023 Every morning By Mouth False Cipro 250 mg tablet 11/19 Inactiv e 2023 22811 02754 1 Cipro 250 mg tablet 250 mg By Mouth Twice daily For UTI 250 mg 11/26 Active 2023 21060 68217 1 Twice daily By Mouth False Flomax 0.4 mg capsule 11/19 Inactiv e 2023 02935 44249 1 Flomax 0.4 mg capsule 0.4 mg By Mouth Once daily For Urinary retention 0.4 mg 11/20 Inactiv e 2023 42612 28473 1 Once daily By Mouth False Motrin IB 200 mg tablet 600 mg By Mouth Every 12 hours As Needed For Pain 600 mg 11/20 Inactiv e 2023 43603 95042 2 Every 12 hours By Mouth False Motrin IB 200 mg tablet 600 mg By Mouth Every 12 hours As Needed For Pain 600 mg 11/20 Inactiv e 2023 44538 33478 2 Every 12 hours By Mouth False Motrin IB 200 mg tablet 600 mg By Mouth Every 12 hours As Needed For Pain 600 mg 11/27 Active 2023 17404 86527 2 Every 12 hours By Mouth False Flomax 0.4 mg capsule 0.4 mg By Mouth Once daily For Urinary retention 0.4 mg 2023 Active 2023 62184 60273 1 Once daily By Mouth False Scopolamine 1 mg over 3 days transdermal patch [generic] 1 Transdermal Every 72 hours For nausea 1 11/22 Active 2023 32576 64881 4 Every 72 hours Transd ermal False Butrans 7.5 mcg/hour transdermal patch 1 patch Transdermal Every 7 Days For Pain 1 patch 2023 Active 2023 48113 77369 4 Every week Transd ermal False Tizanidine 2 mg tablet [generic] 2mg By Mouth At bedtime For Muscle spasms 2mg 2023 Active 2023 97248 76700 0 At bedtime By Mouth False Problems [...] Temperature SpO2 Blood Sugar Pulse Respirations 8 83462 5 75.00 mm[Hg] - Sitting 140.00 mm[Hg] - Sitting 65 NI 98.00 Tympanic 95.00 % 102.00 /min 18.00/min 95803 918 08293 9 59194 918 32195 2 75.00 mm[Hg] - Sitting 140.00 mm[Hg] - Sitting 98.00 Tympanic 102.00 /min 18.00/min 55501 918 10925 3 09477 918 97792 1 72.00 mm[Hg] - Sitting 138.00 mm[Hg] - Sitting 98.40 Tympanic 06955 918 81898 4 88.00/ min 18.00/min 82740 919 94482 4 71.00 mm[Hg] - Sitting 115.00 mm[Hg] - Sitting 98.30 Tympanic 97.00 % 86.00/ min 16.00/min 94436 919 50789 0 71.00 mm[Hg] - Sitting 115.00 mm[Hg] - Sitting 98.30 Tympanic 86.00/ min 16.00/min 23921 919 60512 7 71.00 mm[Hg] - Sitting 115.00 mm[Hg] - Sitting 98.30 Tympanic 86.00/ min 16.00/min 85933 920 44209 6 72.00 mm[Hg] - Sitting 112.00 mm[Hg] - Sitting 98.10 Tympanic 82.00/ min 18.00/min 56650 920 43417 0 75.00 mm[Hg] - Sitting 130.00 mm[Hg] - Sitting 98.40 Forehead Scan 93.00 % 88.00/ min 18.00/min 83243 920 46492 2 75.00 mm[Hg] - Lying Down 130.00 mm[Hg] - Lying Down 98.40 Tympanic 88.00/ min 18.00/min 54531 920 30368 5 75.00 mm[Hg] - Lying Down 130.00 mm[Hg] - Lying Down 98.40 Tympanic 88.00/ min 18.00/min 88551 920 18388 6 199.00 NI 76736 920 04936 3 75.00 mm[Hg] - Sitting 130.00 mm[Hg] - Sitting 98.40 Tympanic 88.00/ min 18.00/min 86910 921 39697 1 71.00 mm[Hg] - Lying Down 119.00 mm[Hg] - Lying Down 98.40 Forehead Scan 96.00 % 83.00/ min 16.00/min 14648 922 27134 6 71.00 mm[Hg] - Lying Down 128.00 mm[Hg] - Lying Down 98.30 Forehead Scan 94.00 % 84.00/ min 18.00/min 28416 923 65104 4 63.00 mm[Hg] - Sitting 105.00 mm[Hg] - Sitting 98.20 Tympanic 93.00 % 93.00/ min 18.00/min 84987 924 97173 8 66.00 mm[Hg] - Sitting 104.00 mm[Hg] - Sitting 98.20 Tympanic 98.00 % 84.00/ min 16.00/min 28468 925 11460 2 131.00 mg/dL 65311 925 44411 6 138.00 mg/dL 89424 926 68495 1 199.00 NI
--- OUTSIDE RECORDS SUMMARY | 2023-12-13 23:57 | External Medical Summary | Continuity Of Care Document ---
Author Name Unknown Address [address] [place] [address] Organization [facility] () Care Team Providers Care English Instructor Name Role Phone DO Parson Amy Primary Care Provider [phone] Allergies Allergy Reaction Start Date End Date [...] 3 0.1 mL 11/13 Inactiv e 2023 05703 90455 0 1 time Intrad ermal False Tubersol 5 tub. unit/0.1 mL intradermal injection solution [Tuberculin PPD] 0.1mL Intradermal 1 time For PPD 2nd Step Give 2nd Step PPD Day 1 and Read results Day 3 (schedule 7 days after 1st READ) 0.1mL 11/13 Inactiv e 2023 28339 50996 0 1 time Intrad ermal False DISCONTINUE as of 11/14/2023: Tubersol 5 tub. unit/0.1 mL intradermal injection solution [Tuberculin PPD] 11/13 Inactiv e 2023 51568 69348 0 Tubersol 5 tub. unit/0.1 mL intradermal injection solution 0.1 mL Intradermal 1 time For PPD Step 1 GIVE on Day 1 and read results Day 3 0.1 mL 11/16 Inactiv e 2023 77196 13568 1 1 time Intrad ermal False DISCONTINUE as of 11/14/2023: Tubersol 5 tub. unit/0.1 mL intradermal injection solution [Tuberculin PPD] 11/13 Inactiv e 2023 46145 87832 0 Tubersol 5 tub. unit/0.1 mL intradermal injection solution 0.1mL Intradermal 1 time For PPD 2nd Step Give 2nd Step PPD Day 1 and Read results Day 3 (schedule 7 days after 1st READ) 0.1mL 11/25 Active 2023 30107 28157 1 1 time Intrad ermal False Tylenol 325 mg tablet 2 tabs By Mouth Every 4 hours as needed For Pain DO NOT EXCEED 3000 MG APAP/24 Hours 2 tabs 202300 /0000 Active 2023 54741 93315 0 Every 4 hours as needed By Mouth False Tylenol 325 mg tablet 2 tabs By Mouth Every 4 hours as needed For Fever >100 DO NOT EXCEED 3000 MG APAP/24 Hours 2 tabs 202300 /0000 Active 2023 00922 19990 0 Every 4 hours as needed By Mouth False Dulcolax (bisacodyl) 10 mg rectal suppository One Suppository per rectum PRN if Milk of Magnisia ineffective. Give on day 5 of no BM 1 sup 2023 Active 2023 18856 62633 1 Daily as needed Rectal False Fleet Enema 19 gram-7 gram/118 mL Administer per rectum PRN one time if dulcolax suppository not effective. Give on day 6 of no BM 1 202300 0000 Active 2023 20038 84508 6 Daily as needed Rectal False Dextrose 50 % in water (D50W) intravenous solution [generic] Dextrose 50% reyes 20-50 ml (slow push) Intravenous if Glucagon not effective after 15 minutes. CALL 911 for ED Evaluation. 50% reyes 202300 /0000 Active 2023 20201 09767 9 Intrav enous False Glucagon (HCl) Emergency Kit 1 mg solution for injection Administer Glucagon 1 mg Intramuscular if 15 minutes after GLucose Gel is administered Glucose remains less than 70 1 mg 2023 Active 2023 65816 31225 2 Intram uscula r False Glucose Gel 40 % oral gel [Dextrose] PRN If resident is unable to swallow (with or without symptoms) and Glucose results less than 70 give GLucose 40% Gel 1 tube orally - Recheck Glucose 15 minutes after administratio n. 1 tube 2023 Active 2023 34534 07104 8 By Mouth False Lorazepam 0.5 mg tablet [generic] 0.5 mg By Mouth Every 8 hours as needed For Anxiety 0.5 mg 11/18 Inactiv e 2023 59366 75215 0 Every 8 hours as needed By Mouth False Potassium chloride ER 20 mEq tablet,exte nded release [generic] 40 meq By Mouth Once daily For Hypokalemia 40 meq 11/13 Inactiv e 2023 97456 91019 1 Once daily By Mouth False Colesevelam 625 mg tablet [generic] 1250 mg By Mouth Twice daily For TYPE 2 DIABETES MELLITUS WITHOUT COMPLICATIONS 1250 mg 11/19 Inactiv e 2023 24539 55999 1 Twice daily By Mouth E11.9 False Pioglitazon e 15 mg tablet [generic] 15 mg By Mouth Once daily For TYPE 2 DIABETES MELLITUS WITHOUT COMPLICATIONS 15 mg 11/14 Inactiv e 2023 34818 31438 1 Once daily By Mouth E11.9 False Cholecalcif hardeep (vitamin D3) 50 mcg (2,000 unit) tablet [generic] 50 mcg By Mouth Once daily For Supplement 50 mcg 2023 Active 2023 02409 47439 1 Once daily By Mouth False Colchicine 0.6 mg tablet [generic] 0.6 mg By Mouth Twice daily As Needed For Gout 0.6 mg 2023 Active 2023 65055 89749 4 Twice daily By Mouth False Levothyroxi ne 200 mcg tablet [generic] 200 mcg By Mouth Once daily For Hypothyroidis m 200 mcg 202300 0000 Active 2023 76330 18892 0 Once daily By Mouth False Ondansetron 4 mg disintegrat ing tablet [generic] 4 mg By Mouth Every 6 hours as needed For Nausea 4 mg 11/12 Inactiv e 2023 65403 03027 4 Every 6 hours as needed By Mouth False Docusate sodium 100 mg capsule [generic] 100 mg By Mouth Twice daily For Constipation 100 mg 202300 0000 Active 2023 35137 54803 1 Twice daily By Mouth False Oxycodone 5 mg tablet [generic] 5 mg By Mouth Every 6 hours as needed For Pain 5 mg 11/12 Inactiv e 2023 19734 96716 1 Every 6 hours as needed By Mouth False Oxycodone 5 mg tablet [generic] 5 mg By Mouth Every 6 hours as needed For Pain 5 mg 11/18 Inactiv e 2023 49185 15027 1 Every 6 hours as needed By Mouth False Milk of Magnesia 400 mg/5 mL oral suspension 30 ml By Mouth one time per day as needed if no BM x 3 days For Constipation 30 ml 202300 Active 2023 12451 33072 2 By Mouth False Ondansetron 4 mg disintegrat ing tablet [generic] 11/12 Inactiv e 2023 78609 72171 4 Ondansetron 4 mg disintegrat ing tablet [generic] 4 mg By Mouth Every 6 hours as needed For Nausea 4 mg 11/14 Inactiv e 2023 76368 47060 4 Every 6 hours as needed By Mouth False Potassium chloride ER 10 mEq capsule,ext ended release [generic] 40 mEq By Mouth Once daily For hypokalemia 40 mEq 11/17 Inactiv e 2023 92517 39206 1 Once daily By Mouth False Potassium chloride ER 10 mEq capsule,ext ended release [generic] 4 capsules By Mouth At bedtime For hypokalemia 4 capsule s 11/16 Inactiv e 2023 04242 81544 1 At bedtime By Mouth False Flomax 0.4 mg capsule 0.4 mg By Mouth At bedtime For Urinary retention 0.4 mg 11/18 Inactiv e 2023 75527 18483 1 At bedtime By Mouth False STOOL CULTURE Once daily Obtain stool culture, add C. Diff to routine stool culture For Rule out C. Diff 1x 2023 Active 2023 Once daily Other False Butrans 5 mcg/hour transdermal patch 1 patch Transdermal Every 7 Days For Pain 1 patch 2023 Active 2023 99407 22550 4 Every week Transd ermal False Pantoprazol e 40 mg tablet,nu yed release [generic] 40 mg By Mouth Twice daily For gerd 40 mg 2023 Active 2023 97415 39766 0 Twice daily By Mouth False Scopolamine 1 mg over 3 days transdermal patch [generic] 1 Transdermal Every 72 hours For nausea 1 11/21 Active 2023 31049 94018 4 Every 72 hours Transd ermal False Ondansetron 4 mg disintegrat ing tablet [generic] 11/14 Inactiv e 2023 80567 65065 4 Ondansetron 4 mg disintegrat ing tablet [generic] 4 mg By Mouth Every 8 hours For Nausea 4 mg 2023 Active 2023 34024 88806 4 Every 8 hours By Mouth False Miralax 17 gram oral powder packet 8.5 g (1/2 capful) By Mouth Once daily For constipation 8.5 g 11/18 Inactiv e 2023 08574 55549 6 Once daily By Mouth False Pioglitazon e 15 mg tablet [generic] 11/14 Inactiv e 2023 41227 38862 1 E11.9 Pioglitazon e 15 mg tablet [generic] 7.5mg ( half a tab) By Mouth Once daily For TYPE 2 DIABETES MELLITUS WITHOUT COMPLICATIONS 7.5mg 2023 Active 2023 06238 44158 1 Once daily By Mouth E11.9 False Mylanta Coat-Cool 1,200 mg-270 mg-80 mg/10 mL oral suspension 10 ml By Mouth Every 8 hours As Needed For heartburn, indigestion, gas 10 ml 2023 Active 2023 95162 84744 1 Every 8 hours By Mouth False Prochlorper azine maleate 5 mg tablet [generic] 5 mg By Mouth Every 8 hours as needed For Nausea 5 mg 2023 Active 2023 53953 95141 1 Every 8 hours as needed By Mouth False Potassium chloride ER 10 mEq capsule,ext ended release [generic] 10 meq By Mouth 4 times a day For Hypokalemia 10 meq 2023 Active 2023 79042 17796 1 4 times a day By Mouth False Lorazepam 0.5 mg tablet [generic] 11/18 Inactiv e 2023 25737 19030 0 Lorazepam 0.5 mg tablet [generic] 0.5 mg By Mouth Every 8 hours as needed For Anxiety 0.5 mg 12/18 Active 2023 06682 13191 0 Every 8 hours as needed By Mouth False Flomax 0.4 mg capsule 11/18 Inactiv e 2023 19987 76610 1 Flomax 0.4 mg capsule 0.4 mg By Mouth Once daily For Urinary retention 0.4 mg 11/19 Inactiv e 2023 03255 00087 1 Once daily By Mouth False Oxycodone 5 mg tablet [generic] 11/18 Inactiv e 2023 49451 14802 1 Oxycodone 5 mg tablet [generic] 5 mg By Mouth Every 6 hours as needed For Back Pain 5 mg 2023 Active 2023 88972 49707 1 Every 6 hours as needed By Mouth False Cipro 250 mg tablet 250 mg By Mouth Twice daily For UTI 250 mg 11/19 Inactiv e 2023 91445 13472 1 Twice daily By Mouth False Senna 8.6 mg tablet 17.2 mg By Mouth Twice daily For Constipation 17.2 mg 2023 Active 2023 58973 26692 1 Twice daily By Mouth False Zyprexa 2.5 mg tablet 2.5 mg By Mouth At bedtime For persistent nausea 2.5 mg 2023 Active 2023 60805 56685 0 At bedtime By Mouth False MAGNESSIUM GLUCONATE 500mg By Mouth Every morning For Supplement 500mg 2023 Active 2023 Every morning By Mouth False Cipro 250 mg tablet 11/19 Inactiv e 2023 02350 25801 1 Cipro 250 mg tablet 250 mg By Mouth Twice daily For UTI 250 mg 11/26 Active 2023 48632 92444 1 Twice daily By Mouth False Flomax 0.4 mg capsule 11/19 Inactiv e 2023 66969 63726 1 Flomax 0.4 mg capsule 0.4 mg By Mouth Once daily For Urinary retention 0.4 mg 11/26 Active 2023 76048 55207 1 Once daily By Mouth False Problems [...] Temperature SpO2 Blood Sugar Pulse Respirations 8 75064 5 75.00 mm[Hg] - Sitting 140.00 mm[Hg] - Sitting 65 NI 98.00 Tympanic 95.00 % 102.00 /min 18.00/min 07678 8 38528 9 34336 918 40046 2 75.00 mm[Hg] - Sitting 140.00 mm[Hg] - Sitting 98.00 Tympanic 102.00 /min 18.00/min 59546 918 09024 3 95111 918 48345 1 72.00 mm[Hg] - Sitting 138.00 mm[Hg] - Sitting 98.40 Tympanic 44535 918 23048 4 88.00/ min 18.00/min 09401 919 00778 4 71.00 mm[Hg] - Sitting 115.00 mm[Hg] - Sitting 98.30 Tympanic 97.00 % 86.00/ min 16.00/min 03595 919 16075 0 71.00 mm[Hg] - Sitting 115.00 mm[Hg] - Sitting 98.30 Tympanic 86.00/ min 16.00/min 59620 919 97677 7 71.00 mm[Hg] - Sitting 115.00 mm[Hg] - Sitting 98.30 Tympanic 86.00/ min 16.00/min 90592 920 51827 6 72.00 mm[Hg] - Sitting 112.00 mm[Hg] - Sitting 98.10 Tympanic 82.00/ min 18.00/min 44643 920 72858 0 75.00 mm[Hg] - Sitting 130.00 mm[Hg] - Sitting 98.40 Forehead Scan 93.00 % 88.00/ min 18.00/min 70332 920 22031 2 75.00 mm[Hg] - Lying Down 130.00 mm[Hg] - Lying Down 98.40 Tympanic 88.00/ min 18.00/min 30393 920 35976 5 75.00 mm[Hg] - Lying Down 130.00 mm[Hg] - Lying Down 98.40 Tympanic 88.00/ min 18.00/min 50305 920 99830 6 199.00 NI 85767 920 39252 3 75.00 mm[Hg] - Sitting 130.00 mm[Hg] - Sitting 98.40 Tympanic 88.00/ min 18.00/min 89813 921 69741 1 71.00 mm[Hg] - Lying Down 119.00 mm[Hg] - Lying Down 98.40 Forehead Scan 96.00 % 83.00/ min 16.00/min 05468 922 44513 6 71.00 mm[Hg] - Lying Down 128.00 mm[Hg] - Lying Down 98.30 Forehead Scan 94.00 % 84.00/ min 18.00/min 13911 923 03585 4 63.00 mm[Hg] - Sitting 105.00 mm[Hg] - Sitting 98.20 Tympanic 93.00 % 93.00/ min 18.00/min 32323 924 31886 8 66.00 mm[Hg] - Sitting 104.00 mm[Hg] - Sitting 98.20 Tympanic 98.00 % 84.00/ min 16.00/min 00156 925 26202 2 131.00 mg/dL 09902 925 18820 6 138.00 mg/dL
--- OUTSIDE RECORDS SUMMARY | 2023-12-13 23:57 | External Medical Summary | Continuity Of Care Document ---
Author Name Unknown Address [address] [place] [address] Organization [facility] () Care Team Providers Care Supervisor Powdered Metal Name Role Phone DO Parson Amy Primary Care Provider [phone] Allergies Allergy Reaction Start Date End Date [...] 3 0.1 mL 11/13 Inactiv e 2023 97156 81692 0 1 time Intrad ermal False Tubersol 5 tub. unit/0.1 mL intradermal injection solution [Tuberculin PPD] 0.1mL Intradermal 1 time For PPD 2nd Step Give 2nd Step PPD Day 1 and Read results Day 3 (schedule 7 days after 1st READ) 0.1mL 11/13 Inactiv e 2023 78447 59623 0 1 time Intrad ermal False DISCONTINUE as of 11/14/2023: Tubersol 5 tub. unit/0.1 mL intradermal injection solution [Tuberculin PPD] 11/13 Inactiv e 2023 31634 98092 0 Tubersol 5 tub. unit/0.1 mL intradermal injection solution 0.1 mL Intradermal 1 time For PPD Step 1 GIVE on Day 1 and read results Day 3 0.1 mL 11/16 Inactiv e 2023 00895 41268 1 1 time Intrad ermal False DISCONTINUE as of 11/14/2023: Tubersol 5 tub. unit/0.1 mL intradermal injection solution [Tuberculin PPD] 11/13 Inactiv e 2023 15786 46739 0 Tubersol 5 tub. unit/0.1 mL intradermal injection solution 0.1mL Intradermal 1 time For PPD 2nd Step Give 2nd Step PPD Day 1 and Read results Day 3 (schedule 7 days after 1st READ) 0.1mL 11/25 Active 2023 84566 04069 1 1 time Intrad ermal False Tylenol 325 mg tablet 2 tabs By Mouth Every 4 hours as needed For Pain DO NOT EXCEED 3000 MG APAP/24 Hours 2 tabs 202300 /0000 Active 2023 47285 17939 0 Every 4 hours as needed By Mouth False Tylenol 325 mg tablet 2 tabs By Mouth Every 4 hours as needed For Fever >100 DO NOT EXCEED 3000 MG APAP/24 Hours 2 tabs 202300 /0000 Active 2023 35950 07066 0 Every 4 hours as needed By Mouth False Dulcolax (bisacodyl) 10 mg rectal suppository One Suppository per rectum PRN if Milk of Magnisia ineffective. Give on day 5 of no BM 1 sup 2023 Active 2023 50580 74115 1 Daily as needed Rectal False Fleet Enema 19 gram-7 gram/118 mL Administer per rectum PRN one time if dulcolax suppository not effective. Give on day 6 of no BM 1 202300 0000 Active 2023 91936 04136 6 Daily as needed Rectal False Dextrose 50 % in water (D50W) intravenous solution [generic] Dextrose 50% reyes 20-50 ml (slow push) Intravenous if Glucagon not effective after 15 minutes. CALL 911 for ED Evaluation. 50% reyes 202300 /0000 Active 2023 61854 45078 9 Intrav enous False Glucagon (HCl) Emergency Kit 1 mg solution for injection Administer Glucagon 1 mg Intramuscular if 15 minutes after GLucose Gel is administered Glucose remains less than 70 1 mg 2023 Active 2023 70856 11691 2 Intram uscula r False Glucose Gel 40 % oral gel [Dextrose] PRN If resident is unable to swallow (with or without symptoms) and Glucose results less than 70 give GLucose 40% Gel 1 tube orally - Recheck Glucose 15 minutes after administratio n. 1 tube 2023 Active 2023 62625 01566 8 By Mouth False Lorazepam 0.5 mg tablet [generic] 0.5 mg By Mouth Every 8 hours as needed For Anxiety 0.5 mg 11/18 Inactiv e 2023 48715 84475 0 Every 8 hours as needed By Mouth False Potassium chloride ER 20 mEq tablet,exte nded release [generic] 40 meq By Mouth Once daily For Hypokalemia 40 meq 11/13 Inactiv e 2023 88135 13511 1 Once daily By Mouth False Colesevelam 625 mg tablet [generic] 1250 mg By Mouth Twice daily For TYPE 2 DIABETES MELLITUS WITHOUT COMPLICATIONS 1250 mg 11/19 Inactiv e 2023 02412 30742 1 Twice daily By Mouth E11.9 False Pioglitazon e 15 mg tablet [generic] 15 mg By Mouth Once daily For TYPE 2 DIABETES MELLITUS WITHOUT COMPLICATIONS 15 mg 11/14 Inactiv e 2023 17740 20408 1 Once daily By Mouth E11.9 False Cholecalcif hardeep (vitamin D3) 50 mcg (2,000 unit) tablet [generic] 50 mcg By Mouth Once daily For Supplement 50 mcg 2023 Active 2023 83078 79764 1 Once daily By Mouth False Colchicine 0.6 mg tablet [generic] 0.6 mg By Mouth Twice daily As Needed For Gout 0.6 mg 2023 Active 2023 92795 94188 4 Twice daily By Mouth False Levothyroxi ne 200 mcg tablet [generic] 200 mcg By Mouth Once daily For Hypothyroidis m 200 mcg 202300 0000 Active 2023 08885 12121 0 Once daily By Mouth False Ondansetron 4 mg disintegrat ing tablet [generic] 4 mg By Mouth Every 6 hours as needed For Nausea 4 mg 11/12 Inactiv e 2023 59607 23454 4 Every 6 hours as needed By Mouth False Docusate sodium 100 mg capsule [generic] 100 mg By Mouth Twice daily For Constipation 100 mg 202300 0000 Active 2023 77768 89244 1 Twice daily By Mouth False Oxycodone 5 mg tablet [generic] 5 mg By Mouth Every 6 hours as needed For Pain 5 mg 11/12 Inactiv e 2023 17671 06035 1 Every 6 hours as needed By Mouth False Oxycodone 5 mg tablet [generic] 5 mg By Mouth Every 6 hours as needed For Pain 5 mg 11/18 Inactiv e 2023 12856 58836 1 Every 6 hours as needed By Mouth False Milk of Magnesia 400 mg/5 mL oral suspension 30 ml By Mouth one time per day as needed if no BM x 3 days For Constipation 30 ml 202300 Active 2023 26353 66604 2 By Mouth False Ondansetron 4 mg disintegrat ing tablet [generic] 11/12 Inactiv e 2023 51203 86216 4 Ondansetron 4 mg disintegrat ing tablet [generic] 4 mg By Mouth Every 6 hours as needed For Nausea 4 mg 11/14 Inactiv e 2023 01086 82703 4 Every 6 hours as needed By Mouth False Potassium chloride ER 10 mEq capsule,ext ended release [generic] 40 mEq By Mouth Once daily For hypokalemia 40 mEq 11/17 Inactiv e 2023 67007 43239 1 Once daily By Mouth False Potassium chloride ER 10 mEq capsule,ext ended release [generic] 4 capsules By Mouth At bedtime For hypokalemia 4 capsule s 11/16 Inactiv e 2023 60323 48342 1 At bedtime By Mouth False Flomax 0.4 mg capsule 0.4 mg By Mouth At bedtime For Urinary retention 0.4 mg 11/18 Inactiv e 2023 23365 03908 1 At bedtime By Mouth False STOOL CULTURE Once daily Obtain stool culture, add C. Diff to routine stool culture For Rule out C. Diff 1x 2023 Active 2023 Once daily Other False Butrans 5 mcg/hour transdermal patch 1 patch Transdermal Every 7 Days For Pain 1 patch 2023 Active 2023 72915 28820 4 Every week Transd ermal False Pantoprazol e 40 mg tablet,nu yed release [generic] 40 mg By Mouth Twice daily For gerd 40 mg 2023 Active 2023 75013 33788 0 Twice daily By Mouth False Scopolamine 1 mg over 3 days transdermal patch [generic] 1 Transdermal Every 72 hours For nausea 1 11/21 Active 2023 96710 55342 4 Every 72 hours Transd ermal False Ondansetron 4 mg disintegrat ing tablet [generic] 11/14 Inactiv e 2023 53302 16496 4 Ondansetron 4 mg disintegrat ing tablet [generic] 4 mg By Mouth Every 8 hours For Nausea 4 mg 2023 Active 2023 39702 83008 4 Every 8 hours By Mouth False Miralax 17 gram oral powder packet 8.5 g (1/2 capful) By Mouth Once daily For constipation 8.5 g 11/18 Inactiv e 2023 22361 29569 6 Once daily By Mouth False Pioglitazon e 15 mg tablet [generic] 11/14 Inactiv e 2023 52925 13846 1 E11.9 Pioglitazon e 15 mg tablet [generic] 7.5mg ( half a tab) By Mouth Once daily For TYPE 2 DIABETES MELLITUS WITHOUT COMPLICATIONS 7.5mg 2023 Active 2023 09868 51077 1 Once daily By Mouth E11.9 False Mylanta Coat-Cool 1,200 mg-270 mg-80 mg/10 mL oral suspension 10 ml By Mouth Every 8 hours As Needed For heartburn, indigestion, gas 10 ml 2023 Active 2023 54208 38032 1 Every 8 hours By Mouth False Prochlorper azine maleate 5 mg tablet [generic] 5 mg By Mouth Every 8 hours as needed For Nausea 5 mg 2023 Active 2023 81135 60562 1 Every 8 hours as needed By Mouth False Potassium chloride ER 10 mEq capsule,ext ended release [generic] 10 meq By Mouth 4 times a day For Hypokalemia 10 meq 11/20 Inactiv e 2023 53813 49815 1 4 times a day By Mouth False Lorazepam 0.5 mg tablet [generic] 11/18 Inactiv e 2023 00438 20118 0 Lorazepam 0.5 mg tablet [generic] 0.5 mg By Mouth Every 8 hours as needed For Anxiety 0.5 mg 12/18 Active 2023 29645 30171 0 Every 8 hours as needed By Mouth False Flomax 0.4 mg capsule 11/18 Inactiv e 2023 31630 46328 1 Flomax 0.4 mg capsule 0.4 mg By Mouth Once daily For Urinary retention 0.4 mg 11/19 Inactiv e 2023 25362 29845 1 Once daily By Mouth False Oxycodone 5 mg tablet [generic] 11/18 Inactiv e 2023 16590 54565 1 Oxycodone 5 mg tablet [generic] 5 mg By Mouth Every 6 hours as needed For Back Pain 5 mg 2023 Active 2023 58943 57579 1 Every 6 hours as needed By Mouth False Cipro 250 mg tablet 250 mg By Mouth Twice daily For UTI 250 mg 11/19 Inactiv e 2023 14565 52373 1 Twice daily By Mouth False Senna 8.6 mg tablet 17.2 mg By Mouth Twice daily For Constipation 17.2 mg 2023 Active 2023 81540 49526 1 Twice daily By Mouth False Zyprexa 2.5 mg tablet 2.5 mg By Mouth At bedtime For persistent nausea 2.5 mg 2023 Active 2023 26190 85565 0 At bedtime By Mouth False MAGNESSIUM GLUCONATE 500mg By Mouth Every morning For Supplement 500mg 2023 Active 2023 Every morning By Mouth False Cipro 250 mg tablet 11/19 Inactiv e 2023 45060 46413 1 Cipro 250 mg tablet 250 mg By Mouth Twice daily For UTI 250 mg 11/26 Active 2023 29623 52882 1 Twice daily By Mouth False Flomax 0.4 mg capsule 11/19 Inactiv e 2023 78522 68192 1 Flomax 0.4 mg capsule 0.4 mg By Mouth Once daily For Urinary retention 0.4 mg 11/26 Active 2023 14277 02325 1 Once daily By Mouth False Motrin IB 200 mg tablet 600 mg By Mouth Every 12 hours As Needed For Pain 600 mg 11/20 Inactiv e 2023 63111 58644 2 Every 12 hours By Mouth False Motrin IB 200 mg tablet 600 mg By Mouth Every 12 hours As Needed For Pain 600 mg 11/20 Inactiv e 2023 97471 55348 2 Every 12 hours By Mouth False Motrin IB 200 mg tablet 600 mg By Mouth Every 12 hours As Needed For Pain 600 mg 11/27 Active 2023 17119 89316 2 Every 12 hours By Mouth False [...] weight Temperature SpO2 Blood Sugar Pulse Respirations 74674 5 75.00 mm[Hg] - Sitting 140.00 mm[Hg] - Sitting 65 NI 98.00 Tympanic 95.00 % 102.00 /min 18.00/min 8 29425 9 12254 2 75.00 mm[Hg] - Sitting 140.00 mm[Hg] - Sitting 98.00 Tympanic 102.00 /min 18.00/min 918 96330 3 8 14092 1 72.00 mm[Hg] - Sitting 138.00 mm[Hg] - Sitting 98.40 Tympanic 27125 4 88.00/ min 18.00/min 65527 919 72070 4 71.00 mm[Hg] - Sitting 115.00 mm[Hg] - Sitting 98.30 Tympanic 97.00 % 86.00/ min 16.00/min 40793 919 34521 0 71.00 mm[Hg] - Sitting 115.00 mm[Hg] - Sitting 98.30 Tympanic 86.00/ min 16.00/min 47077 919 89239 7 71.00 mm[Hg] - Sitting 115.00 mm[Hg] - Sitting 98.30 Tympanic 86.00/ min 16.00/min 35916 920 71285 6 72.00 mm[Hg] - Sitting 112.00 mm[Hg] - Sitting 98.10 Tympanic 82.00/ min 18.00/min 53045 920 11685 0 75.00 mm[Hg] - Sitting 130.00 mm[Hg] - Sitting 98.40 Forehead Scan 93.00 % 88.00/ min 18.00/min 54836 920 48718 2 75.00 mm[Hg] - Lying Down 130.00 mm[Hg] - Lying Down 98.40 Tympanic 88.00/ min 18.00/min 11081 920 59051 5 75.00 mm[Hg] - Lying Down 130.00 mm[Hg] - Lying Down 98.40 Tympanic 88.00/ min 18.00/min 77984 920 70822 6 199.00 NI 98022 920 61609 3 75.00 mm[Hg] - Sitting 130.00 mm[Hg] - Sitting 98.40 Tympanic 88.00/ min 18.00/min 99207 921 50389 1 71.00 mm[Hg] - Lying Down 119.00 mm[Hg] - Lying Down 98.40 Forehead Scan 96.00 % 83.00/ min 16.00/min 07018 922 71271 6 71.00 mm[Hg] - Lying Down 128.00 mm[Hg] - Lying Down 98.30 Forehead Scan 94.00 % 84.00/ min 18.00/min 33897 923 82250 4 63.00 mm[Hg] - Sitting 105.00 mm[Hg] - Sitting 98.20 Tympanic 93.00 % 93.00/ min 18.00/min 17168 924 29492 8 66.00 mm[Hg] - Sitting 104.00 mm[Hg] - Sitting 98.20 Tympanic 98.00 % 84.00/ min 16.00/min 81086 925 30679 2 131.00 mg/dL 32780 925 03746 6 138.00 mg/dL 73865 926 91150 1 199.00 NI
--- OUTSIDE RECORDS SUMMARY | 2023-12-13 23:57 | External Medical Summary | Continuity Of Care Document ---
Author Name Unknown Address [address] [place] [address] Organization [facility] () Care Team Providers Care Forensic Materials Engineer Name Role Phone DO Parson Amy Primary Care Provider [phone] Allergies Allergy Reaction Start Date End Date [...] 3 0.1 mL 11/13 Inactiv e 2023 13937 84561 0 1 time Intrad ermal False Tubersol 5 tub. unit/0.1 mL intradermal injection solution [Tuberculin PPD] 0.1mL Intradermal 1 time For PPD 2nd Step Give 2nd Step PPD Day 1 and Read results Day 3 (schedule 7 days after 1st READ) 0.1mL 11/13 Inactiv e 2023 46464 87603 0 1 time Intrad ermal False DISCONTINUE as of 11/14/2023: Tubersol 5 tub. unit/0.1 mL intradermal injection solution [Tuberculin PPD] 11/13 Inactiv e 2023 47446 08525 0 Tubersol 5 tub. unit/0.1 mL intradermal injection solution 0.1 mL Intradermal 1 time For PPD Step 1 GIVE on Day 1 and read results Day 3 0.1 mL 11/16 Inactiv e 2023 42896 32576 1 1 time Intrad ermal False DISCONTINUE as of 11/14/2023: Tubersol 5 tub. unit/0.1 mL intradermal injection solution [Tuberculin PPD] 11/13 Inactiv e 2023 06456 33939 0 Tubersol 5 tub. unit/0.1 mL intradermal injection solution 0.1mL Intradermal 1 time For PPD 2nd Step Give 2nd Step PPD Day 1 and Read results Day 3 (schedule 7 days after 1st READ) 0.1mL 11/25 Active 2023 03056 56738 1 1 time Intrad ermal False Tylenol 325 mg tablet 2 tabs By Mouth Every 4 hours as needed For Pain DO NOT EXCEED 3000 MG APAP/24 Hours 2 tabs 202300 /0000 Active 2023 24520 45135 0 Every 4 hours as needed By Mouth False Tylenol 325 mg tablet 2 tabs By Mouth Every 4 hours as needed For Fever >100 DO NOT EXCEED 3000 MG APAP/24 Hours 2 tabs 202300 /0000 Active 2023 27716 44085 0 Every 4 hours as needed By Mouth False Dulcolax (bisacodyl) 10 mg rectal suppository One Suppository per rectum PRN if Milk of Magnisia ineffective. Give on day 5 of no BM 1 sup 2023 Active 2023 08220 88385 1 Daily as needed Rectal False Fleet Enema 19 gram-7 gram/118 mL Administer per rectum PRN one time if dulcolax suppository not effective. Give on day 6 of no BM 1 202300 0000 Active 2023 24133 74039 6 Daily as needed Rectal False Dextrose 50 % in water (D50W) intravenous solution [generic] Dextrose 50% reyes 20-50 ml (slow push) Intravenous if Glucagon not effective after 15 minutes. CALL 911 for ED Evaluation. 50% reyes 202300 /0000 Active 2023 77945 71698 9 Intrav enous False Glucagon (HCl) Emergency Kit 1 mg solution for injection Administer Glucagon 1 mg Intramuscular if 15 minutes after GLucose Gel is administered Glucose remains less than 70 1 mg 2023 Active 2023 65557 46265 2 Intram uscula r False Glucose Gel 40 % oral gel [Dextrose] PRN If resident is unable to swallow (with or without symptoms) and Glucose results less than 70 give GLucose 40% Gel 1 tube orally - Recheck Glucose 15 minutes after administratio n. 1 tube 2023 Active 2023 96163 46562 8 By Mouth False Lorazepam 0.5 mg tablet [generic] 0.5 mg By Mouth Every 8 hours as needed For Anxiety 0.5 mg 11/18 Inactiv e 2023 24259 03239 0 Every 8 hours as needed By Mouth False Potassium chloride ER 20 mEq tablet,exte nded release [generic] 40 meq By Mouth Once daily For Hypokalemia 40 meq 11/13 Inactiv e 2023 09580 74157 1 Once daily By Mouth False Colesevelam 625 mg tablet [generic] 1250 mg By Mouth Twice daily For TYPE 2 DIABETES MELLITUS WITHOUT COMPLICATIONS 1250 mg 11/19 Inactiv e 2023 66083 34108 1 Twice daily By Mouth E11.9 False Pioglitazon e 15 mg tablet [generic] 15 mg By Mouth Once daily For TYPE 2 DIABETES MELLITUS WITHOUT COMPLICATIONS 15 mg 11/14 Inactiv e 2023 27653 35603 1 Once daily By Mouth E11.9 False Cholecalcif hardeep (vitamin D3) 50 mcg (2,000 unit) tablet [generic] 50 mcg By Mouth Once daily For Supplement 50 mcg 2023 Active 2023 56711 25074 1 Once daily By Mouth False Colchicine 0.6 mg tablet [generic] 0.6 mg By Mouth Twice daily As Needed For Gout 0.6 mg 2023 Active 2023 82726 85260 4 Twice daily By Mouth False Levothyroxi ne 200 mcg tablet [generic] 200 mcg By Mouth Once daily For Hypothyroidis m 200 mcg 202300 0000 Active 2023 81283 52864 0 Once daily By Mouth False Ondansetron 4 mg disintegrat ing tablet [generic] 4 mg By Mouth Every 6 hours as needed For Nausea 4 mg 11/12 Inactiv e 2023 00452 21860 4 Every 6 hours as needed By Mouth False Docusate sodium 100 mg capsule [generic] 100 mg By Mouth Twice daily For Constipation 100 mg 202300 0000 Active 2023 30935 18026 1 Twice daily By Mouth False Oxycodone 5 mg tablet [generic] 5 mg By Mouth Every 6 hours as needed For Pain 5 mg 11/12 Inactiv e 2023 65990 71038 1 Every 6 hours as needed By Mouth False Oxycodone 5 mg tablet [generic] 5 mg By Mouth Every 6 hours as needed For Pain 5 mg 11/18 Inactiv e 2023 73784 85632 1 Every 6 hours as needed By Mouth False Milk of Magnesia 400 mg/5 mL oral suspension 30 ml By Mouth one time per day as needed if no BM x 3 days For Constipation 30 ml 202300 Active 2023 27596 20686 2 By Mouth False Ondansetron 4 mg disintegrat ing tablet [generic] 11/12 Inactiv e 2023 62587 19403 4 Ondansetron 4 mg disintegrat ing tablet [generic] 4 mg By Mouth Every 6 hours as needed For Nausea 4 mg 11/14 Inactiv e 2023 27912 68044 4 Every 6 hours as needed By Mouth False Potassium chloride ER 10 mEq capsule,ext ended release [generic] 40 mEq By Mouth Once daily For hypokalemia 40 mEq 11/17 Inactiv e 2023 96992 99941 1 Once daily By Mouth False Potassium chloride ER 10 mEq capsule,ext ended release [generic] 4 capsules By Mouth At bedtime For hypokalemia 4 capsule s 11/16 Inactiv e 2023 25788 96255 1 At bedtime By Mouth False Flomax 0.4 mg capsule 0.4 mg By Mouth At bedtime For Urinary retention 0.4 mg 11/18 Inactiv e 2023 30049 90749 1 At bedtime By Mouth False STOOL CULTURE Once daily Obtain stool culture, add C. Diff to routine stool culture For Rule out C. Diff 1x 2023 Active 2023 Once daily Other False Butrans 5 mcg/hour transdermal patch 1 patch Transdermal Every 7 Days For Pain 1 patch 11/20 Inactiv e 2023 33717 49571 4 Every week Transd ermal False Pantoprazol e 40 mg tablet,nu yed release [generic] 40 mg By Mouth Twice daily For gerd 40 mg 2023 Active 2023 53206 04574 0 Twice daily By Mouth False Scopolamine 1 mg over 3 days transdermal patch [generic] 1 Transdermal Every 72 hours For nausea 1 11/20 Inactiv e 2023 67992 36914 4 Every 72 hours Transd ermal False Ondansetron 4 mg disintegrat ing tablet [generic] 11/14 Inactiv e 2023 22709 85105 4 Ondansetron 4 mg disintegrat ing tablet [generic] 4 mg By Mouth Every 8 hours For Nausea 4 mg 2023 Active 2023 06320 35633 4 Every 8 hours By Mouth False Miralax 17 gram oral powder packet 8.5 g (1/2 capful) By Mouth Once daily For constipation 8.5 g 11/18 Inactiv e 2023 57035 63270 6 Once daily By Mouth False Pioglitazon e 15 mg tablet [generic] 11/14 Inactiv e 2023 49365 05090 1 E11.9 Pioglitazon e 15 mg tablet [generic] 7.5mg ( half a tab) By Mouth Once daily For TYPE 2 DIABETES MELLITUS WITHOUT COMPLICATIONS 7.5mg 2023 Active 2023 87280 00064 1 Once daily By Mouth E11.9 False Mylanta Coat-Cool 1,200 mg-270 mg-80 mg/10 mL oral suspension 10 ml By Mouth Every 8 hours As Needed For heartburn, indigestion, gas 10 ml 2023 Active 2023 44476 91325 1 Every 8 hours By Mouth False Prochlorper azine maleate 5 mg tablet [generic] 5 mg By Mouth Every 8 hours as needed For Nausea 5 mg 2023 Active 2023 11058 93559 1 Every 8 hours as needed By Mouth False Potassium chloride ER 10 mEq capsule,ext ended release [generic] 10 meq By Mouth 4 times a day For Hypokalemia 10 meq 11/20 Inactiv e 2023 41030 80410 1 4 times a day By Mouth False Lorazepam 0.5 mg tablet [generic] 11/18 Inactiv e 2023 54915 26239 0 Lorazepam 0.5 mg tablet [generic] 0.5 mg By Mouth Every 8 hours as needed For Anxiety 0.5 mg 12/18 Active 2023 57932 74454 0 Every 8 hours as needed By Mouth False Flomax 0.4 mg capsule 11/18 Inactiv e 2023 36295 06994 1 Flomax 0.4 mg capsule 0.4 mg By Mouth Once daily For Urinary retention 0.4 mg 11/19 Inactiv e 2023 82346 83896 1 Once daily By Mouth False Oxycodone 5 mg tablet [generic] 11/18 Inactiv e 2023 94400 33362 1 Oxycodone 5 mg tablet [generic] 5 mg By Mouth Every 6 hours as needed For Back Pain 5 mg 2023 Active 2023 84189 55033 1 Every 6 hours as needed By Mouth False Cipro 250 mg tablet 250 mg By Mouth Twice daily For UTI 250 mg 11/19 Inactiv e 2023 49839 35103 1 Twice daily By Mouth False Senna 8.6 mg tablet 17.2 mg By Mouth Twice daily For Constipation 17.2 mg 2023 Active 2023 55746 90680 1 Twice daily By Mouth False Zyprexa 2.5 mg tablet 2.5 mg By Mouth At bedtime For persistent nausea 2.5 mg 2023 Active 2023 99129 30881 0 At bedtime By Mouth False MAGNESSIUM GLUCONATE 500mg By Mouth Every morning For Supplement 500mg 2023 Active 2023 Every morning By Mouth False Cipro 250 mg tablet 11/19 Inactiv e 2023 21228 90522 1 Cipro 250 mg tablet 250 mg By Mouth Twice daily For UTI 250 mg 11/26 Active 2023 73697 58389 1 Twice daily By Mouth False Flomax 0.4 mg capsule 11/19 Inactiv e 2023 69036 64037 1 Flomax 0.4 mg capsule 0.4 mg By Mouth Once daily For Urinary retention 0.4 mg 11/20 Inactiv e 2023 81252 80313 1 Once daily By Mouth False Motrin IB 200 mg tablet 600 mg By Mouth Every 12 hours As Needed For Pain 600 mg 11/20 Inactiv e 2023 18534 59052 2 Every 12 hours By Mouth False Motrin IB 200 mg tablet 600 mg By Mouth Every 12 hours As Needed For Pain 600 mg 11/20 Inactiv e 2023 94050 45708 2 Every 12 hours By Mouth False Motrin IB 200 mg tablet 600 mg By Mouth Every 12 hours As Needed For Pain 600 mg 11/27 Active 2023 98536 20397 2 Every 12 hours By Mouth False Flomax 0.4 mg capsule 0.4 mg By Mouth Once daily For Urinary retention 0.4 mg 2023 Active 2023 03575 99500 1 Once daily By Mouth False Scopolamine 1 mg over 3 days transdermal patch [generic] 1 Transdermal Every 72 hours For nausea 1 11/22 Active 2023 09005 01516 4 Every 72 hours Transd ermal False Butrans 7.5 mcg/hour transdermal patch 1 patch Transdermal Every 7 Days For Pain 1 patch 2023 Active 2023 02025 36701 4 Every week Transd ermal False Problems [...] Temperature SpO2 Blood Sugar Pulse Respirations 8 51256 5 75.00 mm[Hg] - Sitting 140.00 mm[Hg] - Sitting 65 NI 98.00 Tympanic 95.00 % 102.00 /min 18.00/min 65123 918 72126 9 918 66413 2 75.00 mm[Hg] - Sitting 140.00 mm[Hg] - Sitting 98.00 Tympanic 102.00 /min 18.00/min 20659 918 39626 3 27827 918 65302 1 72.00 mm[Hg] - Sitting 138.00 mm[Hg] - Sitting 98.40 Tympanic 918 07052 4 88.00/ min 18.00/min 919 46613 4 71.00 mm[Hg] - Sitting 115.00 mm[Hg] - Sitting 98.30 Tympanic 97.00 % 86.00/ min 16.00/min 49779 919 85707 0 71.00 mm[Hg] - Sitting 115.00 mm[Hg] - Sitting 98.30 Tympanic 86.00/ min 16.00/min 09514 919 26606 7 71.00 mm[Hg] - Sitting 115.00 mm[Hg] - Sitting 98.30 Tympanic 86.00/ min 16.00/min 02185 920 90495 6 72.00 mm[Hg] - Sitting 112.00 mm[Hg] - Sitting 98.10 Tympanic 82.00/ min 18.00/min 87814 920 07276 0 75.00 mm[Hg] - Sitting 130.00 mm[Hg] - Sitting 98.40 Forehead Scan 93.00 % 88.00/ min 18.00/min 32410 920 67080 2 75.00 mm[Hg] - Lying Down 130.00 mm[Hg] - Lying Down 98.40 Tympanic 88.00/ min 18.00/min 65699 920 49054 5 75.00 mm[Hg] - Lying Down 130.00 mm[Hg] - Lying Down 98.40 Tympanic 88.00/ min 18.00/min 95147 920 79116 6 199.00 NI 920 69862 3 75.00 mm[Hg] - Sitting 130.00 mm[Hg] - Sitting 98.40 Tympanic 88.00/ min 18.00/min 24875 921 91818 1 71.00 mm[Hg] - Lying Down 119.00 mm[Hg] - Lying Down 98.40 Forehead Scan 96.00 % 83.00/ min 16.00/min 90988 922 28230 6 71.00 mm[Hg] - Lying Down 128.00 mm[Hg] - Lying Down 98.30 Forehead Scan 94.00 % 84.00/ min 18.00/min 55262 923 39711 4 63.00 mm[Hg] - Sitting 105.00 mm[Hg] - Sitting 98.20 Tympanic 93.00 % 93.00/ min 18.00/min 08702 924 01407 8 66.00 mm[Hg] - Sitting 104.00 mm[Hg] - Sitting 98.20 Tympanic 98.00 % 84.00/ min 16.00/min 85654 925 81055 2 131.00 mg/dL 77592 925 66663 6 138.00 mg/dL 37728 926 96397 1 199.00 NI
--- OUTSIDE RECORDS SUMMARY | 2023-12-13 23:57 | External Medical Summary | Continuity Of Care Document ---
Author Name Unknown Address [address] [place] [address] Organization [facility] () Care Team Providers Care Student Records Coordinator Name Role Phone DO Parson Amy Primary Care Provider [phone] Allergies Allergy Reaction Start Date End Date [...] 3 0.1 mL 11/13 Inactiv e 2023 12461 34402 0 1 time Intrad ermal False Tubersol 5 tub. unit/0.1 mL intradermal injection solution [Tuberculin PPD] 0.1mL Intradermal 1 time For PPD 2nd Step Give 2nd Step PPD Day 1 and Read results Day 3 (schedule 7 days after 1st READ) 0.1mL 11/13 Inactiv e 2023 45245 41725 0 1 time Intrad ermal False DISCONTINUE as of 11/14/2023: Tubersol 5 tub. unit/0.1 mL intradermal injection solution [Tuberculin PPD] 11/13 Inactiv e 2023 73733 35207 0 Tubersol 5 tub. unit/0.1 mL intradermal injection solution 0.1 mL Intradermal 1 time For PPD Step 1 GIVE on Day 1 and read results Day 3 0.1 mL 11/16 Inactiv e 2023 04862 03550 1 1 time Intrad ermal False DISCONTINUE as of 11/14/2023: Tubersol 5 tub. unit/0.1 mL intradermal injection solution [Tuberculin PPD] 11/13 Inactiv e 2023 47080 86760 0 Tubersol 5 tub. unit/0.1 mL intradermal injection solution 0.1mL Intradermal 1 time For PPD 2nd Step Give 2nd Step PPD Day 1 and Read results Day 3 (schedule 7 days after 1st READ) 0.1mL 11/25 Active 2023 95851 80514 1 1 time Intrad ermal False Tylenol 325 mg tablet 2 tabs By Mouth Every 4 hours as needed For Pain DO NOT EXCEED 3000 MG APAP/24 Hours 2 tabs 202300 /0000 Active 2023 22092 64307 0 Every 4 hours as needed By Mouth False Tylenol 325 mg tablet 2 tabs By Mouth Every 4 hours as needed For Fever >100 DO NOT EXCEED 3000 MG APAP/24 Hours 2 tabs 202300 /0000 Active 2023 22962 67309 0 Every 4 hours as needed By Mouth False Dulcolax (bisacodyl) 10 mg rectal suppository One Suppository per rectum PRN if Milk of Magnisia ineffective. Give on day 5 of no BM 1 sup 2023 Active 2023 91594 98362 1 Daily as needed Rectal False Fleet Enema 19 gram-7 gram/118 mL Administer per rectum PRN one time if dulcolax suppository not effective. Give on day 6 of no BM 1 202300 0000 Active 2023 58962 99622 6 Daily as needed Rectal False Dextrose 50 % in water (D50W) intravenous solution [generic] Dextrose 50% reyes 20-50 ml (slow push) Intravenous if Glucagon not effective after 15 minutes. CALL 911 for ED Evaluation. 50% reyes 202300 /0000 Active 2023 38776 39853 9 Intrav enous False Glucagon (HCl) Emergency Kit 1 mg solution for injection Administer Glucagon 1 mg Intramuscular if 15 minutes after GLucose Gel is administered Glucose remains less than 70 1 mg 2023 Active 2023 10491 29186 2 Intram uscula r False Glucose Gel 40 % oral gel [Dextrose] PRN If resident is unable to swallow (with or without symptoms) and Glucose results less than 70 give GLucose 40% Gel 1 tube orally - Recheck Glucose 15 minutes after administratio n. 1 tube 2023 Active 2023 19563 86340 8 By Mouth False Lorazepam 0.5 mg tablet [generic] 0.5 mg By Mouth Every 8 hours as needed For Anxiety 0.5 mg 11/18 Inactiv e 2023 05977 08786 0 Every 8 hours as needed By Mouth False Potassium chloride ER 20 mEq tablet,exte nded release [generic] 40 meq By Mouth Once daily For Hypokalemia 40 meq 11/13 Inactiv e 2023 71284 44371 1 Once daily By Mouth False Colesevelam 625 mg tablet [generic] 1250 mg By Mouth Twice daily For TYPE 2 DIABETES MELLITUS WITHOUT COMPLICATIONS 1250 mg 11/19 Inactiv e 2023 68043 18850 1 Twice daily By Mouth E11.9 False Pioglitazon e 15 mg tablet [generic] 15 mg By Mouth Once daily For TYPE 2 DIABETES MELLITUS WITHOUT COMPLICATIONS 15 mg 11/14 Inactiv e 2023 66435 76962 1 Once daily By Mouth E11.9 False Cholecalcif hardeep (vitamin D3) 50 mcg (2,000 unit) tablet [generic] 50 mcg By Mouth Once daily For Supplement 50 mcg 2023 Active 2023 59236 66904 1 Once daily By Mouth False Colchicine 0.6 mg tablet [generic] 0.6 mg By Mouth Twice daily As Needed For Gout 0.6 mg 2023 Active 2023 34000 80020 4 Twice daily By Mouth False Levothyroxi ne 200 mcg tablet [generic] 200 mcg By Mouth Once daily For Hypothyroidis m 200 mcg 202300 0000 Active 2023 68360 86356 0 Once daily By Mouth False Ondansetron 4 mg disintegrat ing tablet [generic] 4 mg By Mouth Every 6 hours as needed For Nausea 4 mg 11/12 Inactiv e 2023 80037 08893 4 Every 6 hours as needed By Mouth False Docusate sodium 100 mg capsule [generic] 100 mg By Mouth Twice daily For Constipation 100 mg 202300 0000 Active 2023 78598 78860 1 Twice daily By Mouth False Oxycodone 5 mg tablet [generic] 5 mg By Mouth Every 6 hours as needed For Pain 5 mg 11/12 Inactiv e 2023 71916 77260 1 Every 6 hours as needed By Mouth False Oxycodone 5 mg tablet [generic] 5 mg By Mouth Every 6 hours as needed For Pain 5 mg 11/18 Inactiv e 2023 31120 96925 1 Every 6 hours as needed By Mouth False Milk of Magnesia 400 mg/5 mL oral suspension 30 ml By Mouth one time per day as needed if no BM x 3 days For Constipation 30 ml 202300 Active 2023 60311 12567 2 By Mouth False Ondansetron 4 mg disintegrat ing tablet [generic] 11/12 Inactiv e 2023 55840 71149 4 Ondansetron 4 mg disintegrat ing tablet [generic] 4 mg By Mouth Every 6 hours as needed For Nausea 4 mg 11/14 Inactiv e 2023 14385 26624 4 Every 6 hours as needed By Mouth False Potassium chloride ER 10 mEq capsule,ext ended release [generic] 40 mEq By Mouth Once daily For hypokalemia 40 mEq 11/17 Inactiv e 2023 58966 33342 1 Once daily By Mouth False Potassium chloride ER 10 mEq capsule,ext ended release [generic] 4 capsules By Mouth At bedtime For hypokalemia 4 capsule s 11/16 Inactiv e 2023 46493 71632 1 At bedtime By Mouth False Flomax 0.4 mg capsule 0.4 mg By Mouth At bedtime For Urinary retention 0.4 mg 11/18 Inactiv e 2023 02544 80533 1 At bedtime By Mouth False STOOL CULTURE Once daily Obtain stool culture, add C. Diff to routine stool culture For Rule out C. Diff 1x 2023 Active 2023 Once daily Other False Butrans 5 mcg/hour transdermal patch 1 patch Transdermal Every 7 Days For Pain 1 patch 2023 Active 2023 15723 31894 4 Every week Transd ermal False Pantoprazol e 40 mg tablet,nu yed release [generic] 40 mg By Mouth Twice daily For gerd 40 mg 2023 Active 2023 49836 10616 0 Twice daily By Mouth False Scopolamine 1 mg over 3 days transdermal patch [generic] 1 Transdermal Every 72 hours For nausea 1 11/21 Active 2023 44171 85980 4 Every 72 hours Transd ermal False Ondansetron 4 mg disintegrat ing tablet [generic] 11/14 Inactiv e 2023 09128 59705 4 Ondansetron 4 mg disintegrat ing tablet [generic] 4 mg By Mouth Every 8 hours For Nausea 4 mg 2023 Active 2023 41064 62266 4 Every 8 hours By Mouth False Miralax 17 gram oral powder packet 8.5 g (1/2 capful) By Mouth Once daily For constipation 8.5 g 11/18 Inactiv e 2023 87144 35288 6 Once daily By Mouth False Pioglitazon e 15 mg tablet [generic] 11/14 Inactiv e 2023 87479 45342 1 E11.9 Pioglitazon e 15 mg tablet [generic] 7.5mg ( half a tab) By Mouth Once daily For TYPE 2 DIABETES MELLITUS WITHOUT COMPLICATIONS 7.5mg 2023 Active 2023 38889 05587 1 Once daily By Mouth E11.9 False Mylanta Coat-Cool 1,200 mg-270 mg-80 mg/10 mL oral suspension 10 ml By Mouth Every 8 hours As Needed For heartburn, indigestion, gas 10 ml 2023 Active 2023 98725 34793 1 Every 8 hours By Mouth False Prochlorper azine maleate 5 mg tablet [generic] 5 mg By Mouth Every 8 hours as needed For Nausea 5 mg 2023 Active 2023 34357 33761 1 Every 8 hours as needed By Mouth False Potassium chloride ER 10 mEq capsule,ext ended release [generic] 10 meq By Mouth 4 times a day For Hypokalemia 10 meq 2023 Active 2023 80456 16342 1 4 times a day By Mouth False Lorazepam 0.5 mg tablet [generic] 11/18 Inactiv e 2023 39447 22201 0 Lorazepam 0.5 mg tablet [generic] 0.5 mg By Mouth Every 8 hours as needed For Anxiety 0.5 mg 12/18 Active 2023 79705 15047 0 Every 8 hours as needed By Mouth False Flomax 0.4 mg capsule 11/18 Inactiv e 2023 46087 76824 1 Flomax 0.4 mg capsule 0.4 mg By Mouth Once daily For Urinary retention 0.4 mg 2023 Active 2023 46898 08226 1 Once daily By Mouth False Oxycodone 5 mg tablet [generic] 11/18 Inactiv e 2023 80695 80814 1 Oxycodone 5 mg tablet [generic] 5 mg By Mouth Every 6 hours as needed For Back Pain 5 mg 2023 Active 2023 30354 26247 1 Every 6 hours as needed By Mouth False Cipro 250 mg tablet 250 mg By Mouth Twice daily For UTI 250 mg 2023 Active 2023 96246 98218 1 Twice daily By Mouth False Senna 8.6 mg tablet 17.2 mg By Mouth Twice daily For Constipation 17.2 mg 2023 Active 2023 41192 82711 1 Twice daily By Mouth False Zyprexa 2.5 mg tablet 2.5 mg By Mouth At bedtime For persistent nausea 2.5 mg 2023 Active 20232 43214 0 At bedtime By Mouth False MAGNESSIUM GLUCONATE 500mg By Mouth Every morning For Supplement 500mg 2023 Active 2023 Every morning By Mouth False Problems Code Description Start [...] weight Temperature SpO2 Blood Sugar Pulse Respirations 98360 5 75.00 mm[Hg] - Sitting 140.00 mm[Hg] - Sitting 65 NI 98.00 Tympanic 95.00 % 102.00 /min 18.00/min 918 10339 9 71181 918 46895 2 75.00 mm[Hg] - Sitting 140.00 mm[Hg] - Sitting 98.00 Tympanic 102.00 /min 18.00/min 918 83931 3 28957 918 33816 1 72.00 mm[Hg] - Sitting 138.00 mm[Hg] - Sitting 98.40 Tympanic 918 73753 4 88.00/ min 18.00/min 919 87923 4 71.00 mm[Hg] - Sitting 115.00 mm[Hg] - Sitting 98.30 Tympanic 97.00 % 86.00/ min 16.00/min 919 20455 0 71.00 mm[Hg] - Sitting 115.00 mm[Hg] - Sitting 98.30 Tympanic 86.00/ min 16.00/min 46765 919 63176 7 71.00 mm[Hg] - Sitting 115.00 mm[Hg] - Sitting 98.30 Tympanic 86.00/ min 16.00/min 920 40684 6 72.00 mm[Hg] - Sitting 112.00 mm[Hg] - Sitting 98.10 Tympanic 82.00/ min 18.00/min 44526 920 75309 0 75.00 mm[Hg] - Sitting 130.00 mm[Hg] - Sitting 98.40 Forehead Scan 93.00 % 88.00/ min 18.00/min 51933 920 89979 2 75.00 mm[Hg] - Lying Down 130.00 mm[Hg] - Lying Down 98.40 Tympanic 88.00/ min 18.00/min 87400 920 57804 5 75.00 mm[Hg] - Lying Down 130.00 mm[Hg] - Lying Down 98.40 Tympanic 88.00/ min 18.00/min 920 77702 6 199.00 [place] [address] 920 53771 3 75.00 mm[Hg] - Sitting 130.00 mm[Hg] - Sitting 98.40 Tympanic 88.00/ min 18.00/min 12457 921 19103 1 71.00 mm[Hg] - Lying Down 119.00 mm[Hg] - Lying Down 98.40 Forehead Scan 96.00 % 83.00/ min 16.00/min 65571 922 22505 6 71.00 mm[Hg] - Lying Down 128.00 mm[Hg] - Lying Down 98.30 Forehead Scan 94.00 % 84.00/ min 18.00/min 923 92737 4 63.00 mm[Hg] - Sitting 105.00 mm[Hg] - Sitting 98.20 Tympanic 93.00 % 93.00/ min 18.00/min 924 70917 8 66.00 mm[Hg] - Sitting 104.00 mm[Hg] - Sitting 98.20 Tympanic 98.00 % 84.00/ min 16.00/min 43402 925 56115 2 131.00 mg/dL 925 27709 6 138.00 mg/dL
--- OUTSIDE RECORDS SUMMARY | 2023-12-13 23:57 | External Medical Summary | Continuity Of Care Document ---
Author Name Unknown Address [address] [place] [address] Organization [facility] () Care Team Providers Care Fire Control System Installer Name Role Phone DO Parson Amy Primary Care Provider [phone] Allergies Allergy Reaction Start Date End Date [...] 3 0.1 mL 11/13 Inactiv e 2023 79275 64350 0 1 time Intrad ermal False Tubersol 5 tub. unit/0.1 mL intradermal injection solution [Tuberculin PPD] 0.1mL Intradermal 1 time For PPD 2nd Step Give 2nd Step PPD Day 1 and Read results Day 3 (schedule 7 days after 1st READ) 0.1mL 11/13 Inactiv e 2023 77946 67183 0 1 time Intrad ermal False DISCONTINUE as of 11/14/2023: Tubersol 5 tub. unit/0.1 mL intradermal injection solution [Tuberculin PPD] 11/13 Inactiv e 2023 07557 71546 0 Tubersol 5 tub. unit/0.1 mL intradermal injection solution 0.1 mL Intradermal 1 time For PPD Step 1 GIVE on Day 1 and read results Day 3 0.1 mL 11/16 Inactiv e 2023 38053 41713 1 1 time Intrad ermal False DISCONTINUE as of 11/14/2023: Tubersol 5 tub. unit/0.1 mL intradermal injection solution [Tuberculin PPD] 11/13 Inactiv e 2023 40040 13439 0 Tubersol 5 tub. unit/0.1 mL intradermal injection solution 0.1mL Intradermal 1 time For PPD 2nd Step Give 2nd Step PPD Day 1 and Read results Day 3 (schedule 7 days after 1st READ) 0.1mL 11/25 Active 2023 47639 40568 1 1 time Intrad ermal False Tylenol 325 mg tablet 2 tabs By Mouth Every 4 hours as needed For Pain DO NOT EXCEED 3000 MG APAP/24 Hours 2 tabs 202300 /0000 Active 2023 37688 19260 0 Every 4 hours as needed By Mouth False Tylenol 325 mg tablet 2 tabs By Mouth Every 4 hours as needed For Fever >100 DO NOT EXCEED 3000 MG APAP/24 Hours 2 tabs 202300 /0000 Active 2023 08704 14051 0 Every 4 hours as needed By Mouth False Dulcolax (bisacodyl) 10 mg rectal suppository One Suppository per rectum PRN if Milk of Magnisia ineffective. Give on day 5 of no BM 1 sup 2023 Active 2023 14798 72055 1 Daily as needed Rectal False Fleet Enema 19 gram-7 gram/118 mL Administer per rectum PRN one time if dulcolax suppository not effective. Give on day 6 of no BM 1 202300 0000 Active 2023 25633 84027 6 Daily as needed Rectal False Dextrose 50 % in water (D50W) intravenous solution [generic] Dextrose 50% reyes 20-50 ml (slow push) Intravenous if Glucagon not effective after 15 minutes. CALL 911 for ED Evaluation. 50% reyes 202300 /0000 Active 2023 53037 71857 9 Intrav enous False Glucagon (HCl) Emergency Kit 1 mg solution for injection Administer Glucagon 1 mg Intramuscular if 15 minutes after GLucose Gel is administered Glucose remains less than 70 1 mg 2023 Active 2023 85512 79024 2 Intram uscula r False Glucose Gel 40 % oral gel [Dextrose] PRN If resident is unable to swallow (with or without symptoms) and Glucose results less than 70 give GLucose 40% Gel 1 tube orally - Recheck Glucose 15 minutes after administratio n. 1 tube 2023 Active 2023 46535 73315 8 By Mouth False Lorazepam 0.5 mg tablet [generic] 0.5 mg By Mouth Every 8 hours as needed For Anxiety 0.5 mg 11/18 Inactiv e 2023 25527 37134 0 Every 8 hours as needed By Mouth False Potassium chloride ER 20 mEq tablet,exte nded release [generic] 40 meq By Mouth Once daily For Hypokalemia 40 meq 11/13 Inactiv e 2023 07545 04046 1 Once daily By Mouth False Colesevelam 625 mg tablet [generic] 1250 mg By Mouth Twice daily For TYPE 2 DIABETES MELLITUS WITHOUT COMPLICATIONS 1250 mg 11/19 Inactiv e 2023 73502 50357 1 Twice daily By Mouth E11.9 False Pioglitazon e 15 mg tablet [generic] 15 mg By Mouth Once daily For TYPE 2 DIABETES MELLITUS WITHOUT COMPLICATIONS 15 mg 11/14 Inactiv e 2023 60656 78997 1 Once daily By Mouth E11.9 False Cholecalcif hardeep (vitamin D3) 50 mcg (2,000 unit) tablet [generic] 50 mcg By Mouth Once daily For Supplement 50 mcg 2023 Active 2023 42636 85557 1 Once daily By Mouth False Colchicine 0.6 mg tablet [generic] 0.6 mg By Mouth Twice daily As Needed For Gout 0.6 mg 2023 Active 2023 81388 61012 4 Twice daily By Mouth False Levothyroxi ne 200 mcg tablet [generic] 200 mcg By Mouth Once daily For Hypothyroidis m 200 mcg 202300 0000 Active 2023 25675 86403 0 Once daily By Mouth False Ondansetron 4 mg disintegrat ing tablet [generic] 4 mg By Mouth Every 6 hours as needed For Nausea 4 mg 11/12 Inactiv e 2023 24567 17612 4 Every 6 hours as needed By Mouth False Docusate sodium 100 mg capsule [generic] 100 mg By Mouth Twice daily For Constipation 100 mg 202300 0000 Active 2023 64014 09716 1 Twice daily By Mouth False Oxycodone 5 mg tablet [generic] 5 mg By Mouth Every 6 hours as needed For Pain 5 mg 11/12 Inactiv e 2023 19755 75930 1 Every 6 hours as needed By Mouth False Oxycodone 5 mg tablet [generic] 5 mg By Mouth Every 6 hours as needed For Pain 5 mg 11/18 Inactiv e 2023 28834 09196 1 Every 6 hours as needed By Mouth False Milk of Magnesia 400 mg/5 mL oral suspension 30 ml By Mouth one time per day as needed if no BM x 3 days For Constipation 30 ml 202300 Active 2023 75639 56349 2 By Mouth False Ondansetron 4 mg disintegrat ing tablet [generic] 11/12 Inactiv e 2023 35581 61681 4 Ondansetron 4 mg disintegrat ing tablet [generic] 4 mg By Mouth Every 6 hours as needed For Nausea 4 mg 11/14 Inactiv e 2023 72198 69718 4 Every 6 hours as needed By Mouth False Potassium chloride ER 10 mEq capsule,ext ended release [generic] 40 mEq By Mouth Once daily For hypokalemia 40 mEq 11/17 Inactiv e 2023 47035 67430 1 Once daily By Mouth False Potassium chloride ER 10 mEq capsule,ext ended release [generic] 4 capsules By Mouth At bedtime For hypokalemia 4 capsule s 11/16 Inactiv e 2023 19945 38180 1 At bedtime By Mouth False Flomax 0.4 mg capsule 0.4 mg By Mouth At bedtime For Urinary retention 0.4 mg 11/18 Inactiv e 2023 95099 00383 1 At bedtime By Mouth False STOOL CULTURE Once daily Obtain stool culture, add C. Diff to routine stool culture For Rule out C. Diff 1x 2023 Active 2023 Once daily Other False Butrans 5 mcg/hour transdermal patch 1 patch Transdermal Every 7 Days For Pain 1 patch 2023 Active 2023 05285 93358 4 Every week Transd ermal False Pantoprazol e 40 mg tablet,nu yed release [generic] 40 mg By Mouth Twice daily For gerd 40 mg 2023 Active 2023 94312 59142 0 Twice daily By Mouth False Scopolamine 1 mg over 3 days transdermal patch [generic] 1 Transdermal Every 72 hours For nausea 1 11/21 Active 2023 89049 99580 4 Every 72 hours Transd ermal False Ondansetron 4 mg disintegrat ing tablet [generic] 11/14 Inactiv e 2023 25460 63192 4 Ondansetron 4 mg disintegrat ing tablet [generic] 4 mg By Mouth Every 8 hours For Nausea 4 mg 2023 Active 2023 92827 53722 4 Every 8 hours By Mouth False Miralax 17 gram oral powder packet 8.5 g (1/2 capful) By Mouth Once daily For constipation 8.5 g 11/18 Inactiv e 2023 71089 91946 6 Once daily By Mouth False Pioglitazon e 15 mg tablet [generic] 11/14 Inactiv e 2023 69967 24075 1 E11.9 Pioglitazon e 15 mg tablet [generic] 7.5mg ( half a tab) By Mouth Once daily For TYPE 2 DIABETES MELLITUS WITHOUT COMPLICATIONS 7.5mg 2023 Active 2023 20818 02345 1 Once daily By Mouth E11.9 False Mylanta Coat-Cool 1,200 mg-270 mg-80 mg/10 mL oral suspension 10 ml By Mouth Every 8 hours As Needed For heartburn, indigestion, gas 10 ml 2023 Active 2023 31743 49967 1 Every 8 hours By Mouth False Prochlorper azine maleate 5 mg tablet [generic] 5 mg By Mouth Every 8 hours as needed For Nausea 5 mg 2023 Active 2023 28711 90781 1 Every 8 hours as needed By Mouth False Potassium chloride ER 10 mEq capsule,ext ended release [generic] 10 meq By Mouth 4 times a day For Hypokalemia 10 meq 2023 Active 2023 49136 97429 1 4 times a day By Mouth False Lorazepam 0.5 mg tablet [generic] 11/18 Inactiv e 2023 66989 02564 0 Lorazepam 0.5 mg tablet [generic] 0.5 mg By Mouth Every 8 hours as needed For Anxiety 0.5 mg 12/18 Active 2023 39726 58679 0 Every 8 hours as needed By [...] Temperature SpO2 Blood Sugar Pulse Respirations 8 90291 5 75.00 mm[Hg] - Sitting 140.00 mm[Hg] - Sitting 65 NI 98.00 Tympanic 95.00 % 102.00 /min 18.00/min 74439 8 01812 9 00953 8 55496 2 75.00 mm[Hg] - Sitting 140.00 mm[Hg] - Sitting 98.00 Tympanic 102.00 /min 18.00/min 33529 918 09440 3 08690 918 23909 1 72.00 mm[Hg] - Sitting 138.00 mm[Hg] - Sitting 98.40 Tympanic 48166 918 60642 4 88.00/ min 18.00/min 24093 919 60422 4 71.00 mm[Hg] - Sitting 115.00 mm[Hg] - Sitting 98.30 Tympanic 97.00 % 86.00/ min 16.00/min 47770 919 54136 0 71.00 mm[Hg] - Sitting 115.00 mm[Hg] - Sitting 98.30 Tympanic 86.00/ min 16.00/min 79376 919 18317 7 71.00 mm[Hg] - Sitting 115.00 mm[Hg] - Sitting 98.30 Tympanic 86.00/ min 16.00/min 84042 920 92581 6 72.00 mm[Hg] - Sitting 112.00 mm[Hg] - Sitting 98.10 Tympanic 82.00/ min 18.00/min 01982 920 52683 0 75.00 mm[Hg] - Sitting 130.00 mm[Hg] - Sitting 98.40 Forehead Scan 93.00 % 88.00/ min 18.00/min 15748 920 08823 2 75.00 mm[Hg] - Lying Down 130.00 mm[Hg] - Lying Down 98.40 Tympanic 88.00/ min 18.00/min 50550 920 28007 5 75.00 mm[Hg] - Lying Down 130.00 mm[Hg] - Lying Down 98.40 Tympanic 88.00/ min 18.00/min 63737 920 05700 6 199.00 NI 920 68180 3 75.00 mm[Hg] - Sitting 130.00 mm[Hg] - Sitting 98.40 Tympanic 88.00/ min 18.00/min 921 84188 1 71.00 mm[Hg] - Lying Down 119.00 mm[Hg] - Lying Down 98.40 Forehead Scan 96.00 % 83.00/ min 16.00/min 922 73835 6 71.00 mm[Hg] - Lying Down 128.00 mm[Hg] - Lying Down 98.30 Forehead Scan 94.00 % 84.00/ min 18.00/min 17600 923 04330 4 63.00 mm[Hg] - Sitting 105.00 mm[Hg] - Sitting 98.20 Tympanic 93.00 % 93.00/ min 18.00/min 924 47568 8 66.00 mm[Hg] - Sitting 104.00 mm[Hg] - Sitting 98.20 Tympanic 98.00 % 84.00/ min 16.00/min 47265 925 62305 2 131.00 mg/dL 925 14296 6 138.00 mg/dL
--- OUTSIDE RECORDS SUMMARY | 2023-12-13 23:57 | External Medical Summary | Continuity Of Care Document ---
Author Name Unknown Address [address] [place] [address] Organization [facility] [place] () Care Team Providers Care Supervisor Pyrotechnic Loading Name Role Phone DO Parson Amy Primary Care Provider [phone] Allergies Allergy Reaction Start Date End Date [...] 3 0.1 mL 11/13 Inactiv e 2023 52895 59308 0 1 time Intrad ermal False Tubersol 5 tub. unit/0.1 mL intradermal injection solution [Tuberculin PPD] 0.1mL Intradermal 1 time For PPD 2nd Step Give 2nd Step PPD Day 1 and Read results Day 3 (schedule 7 days after 1st READ) 0.1mL 11/13 Inactiv e 2023 48281 15247 0 1 time Intrad ermal False DISCONTINUE as of 11/14/2023: Tubersol 5 tub. unit/0.1 mL intradermal injection solution [Tuberculin PPD] 11/13 Inactiv e 2023 79229 00913 0 Tubersol 5 tub. unit/0.1 mL intradermal injection solution 0.1 mL Intradermal 1 time For PPD Step 1 GIVE on Day 1 and read results Day 3 0.1 mL 11/16 Inactiv e 2023 92712 03131 1 1 time Intrad ermal False DISCONTINUE as of 11/14/2023: Tubersol 5 tub. unit/0.1 mL intradermal injection solution [Tuberculin PPD] 11/13 Inactiv e 2023 58397 47263 0 Tubersol 5 tub. unit/0.1 mL intradermal injection solution 0.1mL Intradermal 1 time For PPD 2nd Step Give 2nd Step PPD Day 1 and Read results Day 3 (schedule 7 days after 1st READ) 0.1mL 11/25 Active 2023 86469 96110 1 1 time Intrad ermal False Tylenol 325 mg tablet 2 tabs By Mouth Every 4 hours as needed For Pain DO NOT EXCEED 3000 MG APAP/24 Hours 2 tabs 202300 /0000 Active 2023 65549 38942 0 Every 4 hours as needed By Mouth False Tylenol 325 mg tablet 2 tabs By Mouth Every 4 hours as needed For Fever >100 DO NOT EXCEED 3000 MG APAP/24 Hours 2 tabs 202300 /0000 Active 2023 22847 75072 0 Every 4 hours as needed By Mouth False Dulcolax (bisacodyl) 10 mg rectal suppository One Suppository per rectum PRN if Milk of Magnisia ineffective. Give on day 5 of no BM 1 sup 2023 Active 2023 49668 58127 1 Daily as needed Rectal False Fleet Enema 19 gram-7 gram/118 mL Administer per rectum PRN one time if dulcolax suppository not effective. Give on day 6 of no BM 1 202300 0000 Active 2023 54198 03496 6 Daily as needed Rectal False Dextrose 50 % in water (D50W) intravenous solution [generic] Dextrose 50% reyes 20-50 ml (slow push) Intravenous if Glucagon not effective after 15 minutes. CALL 911 for ED Evaluation. 50% reyes 202300 /0000 Active 2023 68546 58879 9 Intrav enous False Glucagon (HCl) Emergency Kit 1 mg solution for injection Administer Glucagon 1 mg Intramuscular if 15 minutes after GLucose Gel is administered Glucose remains less than 70 1 mg 2023 Active 2023 23577 33253 2 Intram uscula r False Glucose Gel 40 % oral gel [Dextrose] PRN If resident is unable to swallow (with or without symptoms) and Glucose results less than 70 give GLucose 40% Gel 1 tube orally - Recheck Glucose 15 minutes after administratio n. 1 tube 2023 Active 2023 90553 79839 8 By Mouth False Lorazepam 0.5 mg tablet [generic] 0.5 mg By Mouth Every 8 hours as needed For Anxiety 0.5 mg 11/18 Inactiv e 2023 02337 16268 0 Every 8 hours as needed By Mouth False Potassium chloride ER 20 mEq tablet,exte nded release [generic] 40 meq By Mouth Once daily For Hypokalemia 40 meq 11/13 Inactiv e 2023 93625 56554 1 Once daily By Mouth False Colesevelam 625 mg tablet [generic] 1250 mg By Mouth Twice daily For TYPE 2 DIABETES MELLITUS WITHOUT COMPLICATIONS 1250 mg 11/19 Inactiv e 2023 15077 36874 1 Twice daily By Mouth E11.9 False Pioglitazon e 15 mg tablet [generic] 15 mg By Mouth Once daily For TYPE 2 DIABETES MELLITUS WITHOUT COMPLICATIONS 15 mg 11/14 Inactiv e 2023 26414 17003 1 Once daily By Mouth E11.9 False Cholecalcif hardeep (vitamin D3) 50 mcg (2,000 unit) tablet [generic] 50 mcg By Mouth Once daily For Supplement 50 mcg 2023 Active 2023 19050 03278 1 Once daily By Mouth False Colchicine 0.6 mg tablet [generic] 0.6 mg By Mouth Twice daily As Needed For Gout 0.6 mg 2023 Active 2023 64291 21115 4 Twice daily By Mouth False Levothyroxi ne 200 mcg tablet [generic] 200 mcg By Mouth Once daily For Hypothyroidis m 200 mcg 202300 0000 Active 2023 61324 78965 0 Once daily By Mouth False Ondansetron 4 mg disintegrat ing tablet [generic] 4 mg By Mouth Every 6 hours as needed For Nausea 4 mg 11/12 Inactiv e 2023 84901 19442 4 Every 6 hours as needed By Mouth False Docusate sodium 100 mg capsule [generic] 100 mg By Mouth Twice daily For Constipation 100 mg 202300 0000 Active 2023 24923 76080 1 Twice daily By Mouth False Oxycodone 5 mg tablet [generic] 5 mg By Mouth Every 6 hours as needed For Pain 5 mg 11/12 Inactiv e 2023 34533 33505 1 Every 6 hours as needed By Mouth False Oxycodone 5 mg tablet [generic] 5 mg By Mouth Every 6 hours as needed For Pain 5 mg 11/18 Inactiv e 2023 47824 37589 1 Every 6 hours as needed By Mouth False Milk of Magnesia 400 mg/5 mL oral suspension 30 ml By Mouth one time per day as needed if no BM x 3 days For Constipation 30 ml 202300 Active 2023 36030 23064 2 By Mouth False Ondansetron 4 mg disintegrat ing tablet [generic] 11/12 Inactiv e 2023 79053 07610 4 Ondansetron 4 mg disintegrat ing tablet [generic] 4 mg By Mouth Every 6 hours as needed For Nausea 4 mg 11/14 Inactiv e 2023 70000 29061 4 Every 6 hours as needed By Mouth False Potassium chloride ER 10 mEq capsule,ext ended release [generic] 40 mEq By Mouth Once daily For hypokalemia 40 mEq 11/17 Inactiv e 2023 46018 55939 1 Once daily By Mouth False Potassium chloride ER 10 mEq capsule,ext ended release [generic] 4 capsules By Mouth At bedtime For hypokalemia 4 capsule s 11/16 Inactiv e 2023 90701 16504 1 At bedtime By Mouth False Flomax 0.4 mg capsule 0.4 mg By Mouth At bedtime For Urinary retention 0.4 mg 11/18 Inactiv e 2023 96353 21336 1 At bedtime By Mouth False STOOL CULTURE Once daily Obtain stool culture, add C. Diff to routine stool culture For Rule out C. Diff 1x 2023 Active 2023 Once daily Other False Butrans 5 mcg/hour transdermal patch 1 patch Transdermal Every 7 Days For Pain 1 patch 2023 Active 2023 77857 98818 4 Every week Transd ermal False Pantoprazol e 40 mg tablet,nu yed release [generic] 40 mg By Mouth Twice daily For gerd 40 mg 2023 Active 2023 37349 81582 0 Twice daily By Mouth False Scopolamine 1 mg over 3 days transdermal patch [generic] 1 Transdermal Every 72 hours For nausea 1 11/21 Active 2023 65217 23530 4 Every 72 hours Transd ermal False Ondansetron 4 mg disintegrat ing tablet [generic] 11/14 Inactiv e 2023 95814 86457 4 Ondansetron 4 mg disintegrat ing tablet [generic] 4 mg By Mouth Every 8 hours For Nausea 4 mg 2023 Active 2023 90000 22268 4 Every 8 hours By Mouth False Miralax 17 gram oral powder packet 8.5 g (1/2 capful) By Mouth Once daily For constipation 8.5 g 11/18 Inactiv e 2023 59188 63250 6 Once daily By Mouth False Pioglitazon e 15 mg tablet [generic] 11/14 Inactiv e 2023 04420 68209 1 E11.9 Pioglitazon e 15 mg tablet [generic] 7.5mg ( half a tab) By Mouth Once daily For TYPE 2 DIABETES MELLITUS WITHOUT COMPLICATIONS 7.5mg 2023 Active 2023 46211 19494 1 Once daily By Mouth E11.9 False Mylanta Coat-Cool 1,200 mg-270 mg-80 mg/10 mL oral suspension 10 ml By Mouth Every 8 hours As Needed For heartburn, indigestion, gas 10 ml 2023 Active 2023 03102 99823 1 Every 8 hours By Mouth False Prochlorper azine maleate 5 mg tablet [generic] 5 mg By Mouth Every 8 hours as needed For Nausea 5 mg 2023 Active 2023 97516 37541 1 Every 8 hours as needed By Mouth False Potassium chloride ER 10 mEq capsule,ext ended release [generic] 10 meq By Mouth 4 times a day For Hypokalemia 10 meq 2023 Active 2023 66464 04107 1 4 times a day By Mouth False Lorazepam 0.5 mg tablet [generic] 11/18 Inactiv e 2023 34678 41071 0 Lorazepam 0.5 mg tablet [generic] 0.5 mg By Mouth Every 8 hours as needed For Anxiety 0.5 mg 12/18 Active 2023 39727 47047 0 Every 8 hours as needed By Mouth False Flomax 0.4 mg capsule 11/18 Inactiv e 2023 33558 10338 1 Flomax 0.4 mg capsule 0.4 mg By Mouth Once daily For Urinary retention 0.4 mg 11/19 Inactiv e 2023 17405 80440 1 Once daily By Mouth False Oxycodone 5 mg tablet [generic] 11/18 Inactiv e 2023 72809 72567 1 Oxycodone 5 mg tablet [generic] 5 mg By Mouth Every 6 hours as needed For Back Pain 5 mg 2023 Active 2023 13256 46716 1 Every 6 hours as needed By Mouth False Cipro 250 mg tablet 250 mg By Mouth Twice daily For UTI 250 mg 11/19 Inactiv e 2023 08799 25117 1 Twice daily By Mouth False Senna 8.6 mg tablet 17.2 mg By Mouth Twice daily For Constipation 17.2 mg 2023 Active 2023 25073 54913 1 Twice daily By Mouth False Zyprexa 2.5 mg tablet 2.5 mg By Mouth At bedtime For persistent nausea 2.5 mg 2023 Active 2023 90785 35162 0 At bedtime By Mouth False MAGNESSIUM GLUCONATE 500mg By Mouth Every morning For Supplement 500mg 2023 Active 2023 Every morning By Mouth False Cipro 250 mg tablet 11/19 Inactiv e 2023 95682 22753 1 Cipro 250 mg tablet 250 mg By Mouth Twice daily For UTI 250 mg 11/26 Active 2023 51624 66066 1 Twice daily By Mouth False Flomax 0.4 mg capsule 11/19 Inactiv e 2023 58019 96026 1 Flomax 0.4 mg capsule 0.4 mg By Mouth Once daily For Urinary retention 0.4 mg 11/26 Active 2023 46826 95412 1 Once daily By Mouth False Problems [...] Temperature SpO2 Blood Sugar Pulse Respirations 8 36299 5 75.00 mm[Hg] - Sitting 140.00 mm[Hg] - Sitting 65 NI 98.00 Tympanic 95.00 % 102.00 /min 18.00/min 17528 8 76402 9 22092 918 54029 2 75.00 mm[Hg] - Sitting 140.00 mm[Hg] - Sitting 98.00 Tympanic 102.00 /min 18.00/min 46352 918 64389 3 34080 918 98030 1 72.00 mm[Hg] - Sitting 138.00 mm[Hg] - Sitting 98.40 Tympanic 04102 918 29049 4 88.00/ min 18.00/min 92398 919 03953 4 71.00 mm[Hg] - Sitting 115.00 mm[Hg] - Sitting 98.30 Tympanic 97.00 % 86.00/ min 16.00/min 27703 919 43187 0 71.00 mm[Hg] - Sitting 115.00 mm[Hg] - Sitting 98.30 Tympanic 86.00/ min 16.00/min 85394 919 58358 7 71.00 mm[Hg] - Sitting 115.00 mm[Hg] - Sitting 98.30 Tympanic 86.00/ min 16.00/min 13470 920 48923 6 72.00 mm[Hg] - Sitting 112.00 mm[Hg] - Sitting 98.10 Tympanic 82.00/ min 18.00/min 05812 920 22508 0 75.00 mm[Hg] - Sitting 130.00 mm[Hg] - Sitting 98.40 Forehead Scan 93.00 % 88.00/ min 18.00/min 27514 920 87292 2 75.00 mm[Hg] - Lying Down 130.00 mm[Hg] - Lying Down 98.40 Tympanic 88.00/ min 18.00/min 72772 920 48954 5 75.00 mm[Hg] - Lying Down 130.00 mm[Hg] - Lying Down 98.40 Tympanic 88.00/ min 18.00/min 87488 920 28542 6 199[place]00 [place] [address] 920 69454 3 75.00 mm[Hg] - Sitting 130.00 mm[Hg] - Sitting 98.40 Tympanic 88.00/ min 18.00/min 87342 921 40958 1 71.00 mm[Hg] - Lying Down 119.00 mm[Hg] - Lying Down 98.40 Forehead Scan 96.00 % 83.00/ min 16.00/min 73483 922 03879 6 71.00 mm[Hg] - Lying Down 128.00 mm[Hg] - Lying Down 98.30 Forehead Scan 94.00 % 84.00/ min 18.00/min 32116 923 19386 4 98.20 Tympanic 93.00/ min
--- OUTSIDE RECORDS SUMMARY | 2023-12-13 23:57 | External Medical Summary | Continuity Of Care Document ---
Author Name Unknown Address [address] [place] [address] Organization [facility] () Care Team Providers Care Molecular Technologist Name Role Phone DO Parson Amy Primary Care Provider [phone] Allergies Allergy Reaction Start Date End Date [...] 3 0.1 mL 11/13 Inactiv e 2023 43110 92268 0 1 time Intrad ermal False Tubersol 5 tub. unit/0.1 mL intradermal injection solution [Tuberculin PPD] 0.1mL Intradermal 1 time For PPD 2nd Step Give 2nd Step PPD Day 1 and Read results Day 3 (schedule 7 days after 1st READ) 0.1mL 11/13 Inactiv e 2023 96242 37208 0 1 time Intrad ermal False DISCONTINUE as of 11/14/2023: Tubersol 5 tub. unit/0.1 mL intradermal injection solution [Tuberculin PPD] 11/13 Inactiv e 2023 22497 95803 0 Tubersol 5 tub. unit/0.1 mL intradermal injection solution 0.1 mL Intradermal 1 time For PPD Step 1 GIVE on Day 1 and read results Day 3 0.1 mL 11/16 Inactiv e 2023 48894 98631 1 1 time Intrad ermal False DISCONTINUE as of 11/14/2023: Tubersol 5 tub. unit/0.1 mL intradermal injection solution [Tuberculin PPD] 11/13 Inactiv e 2023 45254 19094 0 Tubersol 5 tub. unit/0.1 mL intradermal injection solution 0.1mL Intradermal 1 time For PPD 2nd Step Give 2nd Step PPD Day 1 and Read results Day 3 (schedule 7 days after 1st READ) 0.1mL 11/25 Active 2023 62531 66091 1 1 time Intrad ermal False Tylenol 325 mg tablet 2 tabs By Mouth Every 4 hours as needed For Pain DO NOT EXCEED 3000 MG APAP/24 Hours 2 tabs 202300 /0000 Active 2023 85734 05945 0 Every 4 hours as needed By Mouth False Tylenol 325 mg tablet 2 tabs By Mouth Every 4 hours as needed For Fever >100 DO NOT EXCEED 3000 MG APAP/24 Hours 2 tabs 202300 /0000 Active 2023 98002 54096 0 Every 4 hours as needed By Mouth False Dulcolax (bisacodyl) 10 mg rectal suppository One Suppository per rectum PRN if Milk of Magnisia ineffective. Give on day 5 of no BM 1 sup 2023 Active 2023 24444 98854 1 Daily as needed Rectal False Fleet Enema 19 gram-7 gram/118 mL Administer per rectum PRN one time if dulcolax suppository not effective. Give on day 6 of no BM 1 202300 0000 Active 2023 27366 43299 6 Daily as needed Rectal False Dextrose 50 % in water (D50W) intravenous solution [generic] Dextrose 50% reyes 20-50 ml (slow push) Intravenous if Glucagon not effective after 15 minutes. CALL 911 for ED Evaluation. 50% reyes 202300 /0000 Active 2023 58861 53997 9 Intrav enous False Glucagon (HCl) Emergency Kit 1 mg solution for injection Administer Glucagon 1 mg Intramuscular if 15 minutes after GLucose Gel is administered Glucose remains less than 70 1 mg 2023 Active 2023 84667 06793 2 Intram uscula r False Glucose Gel 40 % oral gel [Dextrose] PRN If resident is unable to swallow (with or without symptoms) and Glucose results less than 70 give GLucose 40% Gel 1 tube orally - Recheck Glucose 15 minutes after administratio n. 1 tube 2023 Active 2023 25199 43183 8 By Mouth False Lorazepam 0.5 mg tablet [generic] 0.5 mg By Mouth Every 8 hours as needed For Anxiety 0.5 mg 11/18 Inactiv e 2023 21721 29488 0 Every 8 hours as needed By Mouth False Potassium chloride ER 20 mEq tablet,exte nded release [generic] 40 meq By Mouth Once daily For Hypokalemia 40 meq 11/13 Inactiv e 2023 56722 90152 1 Once daily By Mouth False Colesevelam 625 mg tablet [generic] 1250 mg By Mouth Twice daily For TYPE 2 DIABETES MELLITUS WITHOUT COMPLICATIONS 1250 mg 11/19 Inactiv e 2023 58903 83742 1 Twice daily By Mouth E11.9 False Pioglitazon e 15 mg tablet [generic] 15 mg By Mouth Once daily For TYPE 2 DIABETES MELLITUS WITHOUT COMPLICATIONS 15 mg 11/14 Inactiv e 2023 46351 22218 1 Once daily By Mouth E11.9 False Cholecalcif hardeep (vitamin D3) 50 mcg (2,000 unit) tablet [generic] 50 mcg By Mouth Once daily For Supplement 50 mcg 2023 Active 2023 66207 94415 1 Once daily By Mouth False Colchicine 0.6 mg tablet [generic] 0.6 mg By Mouth Twice daily As Needed For Gout 0.6 mg 2023 Active 2023 70034 55411 4 Twice daily By Mouth False Levothyroxi ne 200 mcg tablet [generic] 200 mcg By Mouth Once daily For Hypothyroidis m 200 mcg 202300 0000 Active 2023 37715 69903 0 Once daily By Mouth False Ondansetron 4 mg disintegrat ing tablet [generic] 4 mg By Mouth Every 6 hours as needed For Nausea 4 mg 11/12 Inactiv e 2023 75532 46622 4 Every 6 hours as needed By Mouth False Docusate sodium 100 mg capsule [generic] 100 mg By Mouth Twice daily For Constipation 100 mg 202300 0000 Active 2023 68837 92018 1 Twice daily By Mouth False Oxycodone 5 mg tablet [generic] 5 mg By Mouth Every 6 hours as needed For Pain 5 mg 11/12 Inactiv e 2023 13669 48032 1 Every 6 hours as needed By Mouth False Oxycodone 5 mg tablet [generic] 5 mg By Mouth Every 6 hours as needed For Pain 5 mg 11/18 Inactiv e 2023 05341 45914 1 Every 6 hours as needed By Mouth False Milk of Magnesia 400 mg/5 mL oral suspension 30 ml By Mouth one time per day as needed if no BM x 3 days For Constipation 30 ml 202300 Active 2023 83908 82557 2 By Mouth False Ondansetron 4 mg disintegrat ing tablet [generic] 11/12 Inactiv e 2023 30527 60670 4 Ondansetron 4 mg disintegrat ing tablet [generic] 4 mg By Mouth Every 6 hours as needed For Nausea 4 mg 11/14 Inactiv e 2023 72565 25349 4 Every 6 hours as needed By Mouth False Potassium chloride ER 10 mEq capsule,ext ended release [generic] 40 mEq By Mouth Once daily For hypokalemia 40 mEq 11/17 Inactiv e 2023 73406 40946 1 Once daily By Mouth False Potassium chloride ER 10 mEq capsule,ext ended release [generic] 4 capsules By Mouth At bedtime For hypokalemia 4 capsule s 11/16 Inactiv e 2023 27177 53627 1 At bedtime By Mouth False Flomax 0.4 mg capsule 0.4 mg By Mouth At bedtime For Urinary retention 0.4 mg 11/18 Inactiv e 2023 87738 18521 1 At bedtime By Mouth False STOOL CULTURE Once daily Obtain stool culture, add C. Diff to routine stool culture For Rule out C. Diff 1x 2023 Active 2023 Once daily Other False Butrans 5 mcg/hour transdermal patch 1 patch Transdermal Every 7 Days For Pain 1 patch 2023 Active 2023 30788 38401 4 Every week Transd ermal False Pantoprazol e 40 mg tablet,nu yed release [generic] 40 mg By Mouth Twice daily For gerd 40 mg 2023 Active 2023 98463 44038 0 Twice daily By Mouth False Scopolamine 1 mg over 3 days transdermal patch [generic] 1 Transdermal Every 72 hours For nausea 1 11/21 Active 2023 49663 40615 4 Every 72 hours Transd ermal False Ondansetron 4 mg disintegrat ing tablet [generic] 11/14 Inactiv e 2023 25059 39086 4 Ondansetron 4 mg disintegrat ing tablet [generic] 4 mg By Mouth Every 8 hours For Nausea 4 mg 2023 Active 2023 20360 93585 4 Every 8 hours By Mouth False Miralax 17 gram oral powder packet 8.5 g (1/2 capful) By Mouth Once daily For constipation 8.5 g 11/18 Inactiv e 2023 52727 93587 6 Once daily By Mouth False Pioglitazon e 15 mg tablet [generic] 11/14 Inactiv e 2023 13166 96251 1 E11.9 Pioglitazon e 15 mg tablet [generic] 7.5mg ( half a tab) By Mouth Once daily For TYPE 2 DIABETES MELLITUS WITHOUT COMPLICATIONS 7.5mg 2023 Active 2023 40591 90663 1 Once daily By Mouth E11.9 False Mylanta Coat-Cool 1,200 mg-270 mg-80 mg/10 mL oral suspension 10 ml By Mouth Every 8 hours As Needed For heartburn, indigestion, gas 10 ml 2023 Active 2023 29199 47838 1 Every 8 hours By Mouth False Prochlorper azine maleate 5 mg tablet [generic] 5 mg By Mouth Every 8 hours as needed For Nausea 5 mg 2023 Active 2023 14554 44909 1 Every 8 hours as needed By Mouth False Potassium chloride ER 10 mEq capsule,ext ended release [generic] 10 meq By Mouth 4 times a day For Hypokalemia 10 meq 11/20 Inactiv e 2023 25614 95319 1 4 times a day By Mouth False Lorazepam 0.5 mg tablet [generic] 11/18 Inactiv e 2023 96062 53758 0 Lorazepam 0.5 mg tablet [generic] 0.5 mg By Mouth Every 8 hours as needed For Anxiety 0.5 mg 12/18 Active 2023 71628 96146 0 Every 8 hours as needed By Mouth False Flomax 0.4 mg capsule 11/18 Inactiv e 2023 66135 87263 1 Flomax 0.4 mg capsule 0.4 mg By Mouth Once daily For Urinary retention 0.4 mg 11/19 Inactiv e 2023 22163 21297 1 Once daily By Mouth False Oxycodone 5 mg tablet [generic] 11/18 Inactiv e 2023 13212 77649 1 Oxycodone 5 mg tablet [generic] 5 mg By Mouth Every 6 hours as needed For Back Pain 5 mg 2023 Active 2023 41162 16395 1 Every 6 hours as needed By Mouth False Cipro 250 mg tablet 250 mg By Mouth Twice daily For UTI 250 mg 11/19 Inactiv e 2023 04750 64567 1 Twice daily By Mouth False Senna 8.6 mg tablet 17.2 mg By Mouth Twice daily For Constipation 17.2 mg 2023 Active 2023 30458 83528 1 Twice daily By Mouth False Zyprexa 2.5 mg tablet 2.5 mg By Mouth At bedtime For persistent nausea 2.5 mg 2023 Active 2023 10343 40407 0 At bedtime By Mouth False MAGNESSIUM GLUCONATE 500mg By Mouth Every morning For Supplement 500mg 2023 Active 2023 Every morning By Mouth False Cipro 250 mg tablet 11/19 Inactiv e 2023 86269 19032 1 Cipro 250 mg tablet 250 mg By Mouth Twice daily For UTI 250 mg 11/26 Active 2023 70332 50582 1 Twice daily By Mouth False Flomax 0.4 mg capsule 11/19 Inactiv e 2023 29129 67257 1 Flomax 0.4 mg capsule 0.4 mg By Mouth Once daily For Urinary retention 0.4 mg 11/20 Inactiv e 2023 16275 25168 1 Once daily By Mouth False Motrin IB 200 mg tablet 600 mg By Mouth Every 12 hours As Needed For Pain 600 mg 11/20 Inactiv e 2023 73615 16977 2 Every 12 hours By Mouth False Motrin IB 200 mg tablet 600 mg By Mouth Every 12 hours As Needed For Pain 600 mg 11/20 Inactiv e 2023 97464 97542 2 Every 12 hours By Mouth False Motrin IB 200 mg tablet 600 mg By Mouth Every 12 hours As Needed For Pain 600 mg 11/27 Active 2023 49953 01879 2 Every 12 hours By Mouth False Flomax 0.4 mg capsule 0.4 mg By Mouth Once daily For Urinary retention 0.4 mg 2023 Active 2023 72720 37958 1 Once daily By Mouth False Problems [...] weight Temperature SpO2 Blood Sugar Pulse Respirations 11532 5 75.00 mm[Hg] - Sitting 140.00 mm[Hg] - Sitting 65 NI 98.00 Tympanic 95.00 % 102.00 /min 18.00/min 918 20446 9 91 23429 2 75.00 mm[Hg] - Sitting 140.00 mm[Hg] - Sitting 98.00 Tympanic 102.00 /min 18.00/min 21695 918 55395 3 70366 918 62486 1 72.00 mm[Hg] - Sitting 138.00 mm[Hg] - Sitting 98.40 Tympanic 24170 918 44871 4 88.00/ min 18.00/min 919 58558 4 71.00 mm[Hg] - Sitting 115.00 mm[Hg] - Sitting 98.30 Tympanic 97.00 % 86.00/ min 16.00/min 49127 919 86363 0 71.00 mm[Hg] - Sitting 115.00 mm[Hg] - Sitting 98.30 Tympanic 86.00/ min 16.00/min 21843 919 98367 7 71.00 mm[Hg] - Sitting 115.00 mm[Hg] - Sitting 98.30 Tympanic 86.00/ min 16.00/min 22552 920 09664 6 72.00 mm[Hg] - Sitting 112.00 mm[Hg] - Sitting 98.10 Tympanic 82.00/ min 18.00/min 95017 920 41132 0 75.00 mm[Hg] - Sitting 130.00 mm[Hg] - Sitting 98.40 Forehead Scan 93.00 % 88.00/ min 18.00/min 92474 920 49007 2 75.00 mm[Hg] - Lying Down 130.00 mm[Hg] - Lying Down 98.40 Tympanic 88.00/ min 18.00/min 68687 920 28695 5 75.00 mm[Hg] - Lying Down 130.00 mm[Hg] - Lying Down 98.40 Tympanic 88.00/ min 18.00/min 03679 920 22264 6 199.00 NI 26941 920 43594 3 75.00 mm[Hg] - Sitting 130.00 mm[Hg] - Sitting 98.40 Tympanic 88.00/ min 18.00/min 71593 921 26541 1 71.00 mm[Hg] - Lying Down 119.00 mm[Hg] - Lying Down 98.40 Forehead Scan 96.00 % 83.00/ min 16.00/min 96710 922 42935 6 71.00 mm[Hg] - Lying Down 128.00 mm[Hg] - Lying Down 98.30 Forehead Scan 94.00 % 84.00/ min 18.00/min 52500 923 26289 4 63.00 mm[Hg] - Sitting 105.00 mm[Hg] - Sitting 98.20 Tympanic 93.00 % 93.00/ min 18.00/min 13821 924 06394 8 66.00 mm[Hg] - Sitting 104.00 mm[Hg] - Sitting 98.20 Tympanic 98.00 % 84.00/ min 16.00/min 39827 925 17016 2 131.00 mg/dL 91595 925 03864 6 138.00 mg/dL 81546 926 20058 1 199.00 NI
--- OUTSIDE RECORDS SUMMARY | 2023-12-13 23:57 | External Medical Summary | Continuity Of Care Document ---
Author Name Unknown Address [address] [place] [address] Organization [facility] [place] () Care Team Providers Care Speech Lang Path Therapist Name Role Phone DO Parson Amy Primary Care Provider [phone] Allergies Allergy Reaction Start Date End Date [...] 3 0.1 mL 11/13 Inactiv e 2023 27298 79529 0 1 time Intrad ermal False Tubersol 5 tub. unit/0.1 mL intradermal injection solution [Tuberculin PPD] 0.1mL Intradermal 1 time For PPD 2nd Step Give 2nd Step PPD Day 1 and Read results Day 3 (schedule 7 days after 1st READ) 0.1mL 11/13 Inactiv e 2023 63439 76716 0 1 time Intrad ermal False DISCONTINUE as of 11/14/2023: Tubersol 5 tub. unit/0.1 mL intradermal injection solution [Tuberculin PPD] 11/13 Inactiv e 2023 73309 16420 0 Tubersol 5 tub. unit/0.1 mL intradermal injection solution 0.1 mL Intradermal 1 time For PPD Step 1 GIVE on Day 1 and read results Day 3 0.1 mL 11/16 Inactiv e 2023 06292 71862 1 1 time Intrad ermal False DISCONTINUE as of 11/14/2023: Tubersol 5 tub. unit/0.1 mL intradermal injection solution [Tuberculin PPD] 11/13 Inactiv e 2023 12280 40690 0 Tubersol 5 tub. unit/0.1 mL intradermal injection solution 0.1mL Intradermal 1 time For PPD 2nd Step Give 2nd Step PPD Day 1 and Read results Day 3 (schedule 7 days after 1st READ) 0.1mL 11/25 Active 2023 70993 67730 1 1 time Intrad ermal False Tylenol 325 mg tablet 2 tabs By Mouth Every 4 hours as needed For Pain DO NOT EXCEED 3000 MG APAP/24 Hours 2 tabs 202300 /0000 Active 2023 78929 92206 0 Every 4 hours as needed By Mouth False Tylenol 325 mg tablet 2 tabs By Mouth Every 4 hours as needed For Fever >100 DO NOT EXCEED 3000 MG APAP/24 Hours 2 tabs 202300 /0000 Active 2023 97545 42392 0 Every 4 hours as needed By Mouth False Dulcolax (bisacodyl) 10 mg rectal suppository One Suppository per rectum PRN if Milk of Magnisia ineffective. Give on day 5 of no BM 1 sup 2023 Active 2023 91230 75366 1 Daily as needed Rectal False Fleet Enema 19 gram-7 gram/118 mL Administer per rectum PRN one time if dulcolax suppository not effective. Give on day 6 of no BM 1 202300 0000 Active 2023 05378 96736 6 Daily as needed Rectal False Dextrose 50 % in water (D50W) intravenous solution [generic] Dextrose 50% reyes 20-50 ml (slow push) Intravenous if Glucagon not effective after 15 minutes. CALL 911 for ED Evaluation. 50% reyes 202300 /0000 Active 2023 62622 57986 9 Intrav enous False Glucagon (HCl) Emergency Kit 1 mg solution for injection Administer Glucagon 1 mg Intramuscular if 15 minutes after GLucose Gel is administered Glucose remains less than 70 1 mg 2023 Active 2023 06866 89953 2 Intram uscula r False Glucose Gel 40 % oral gel [Dextrose] PRN If resident is unable to swallow (with or without symptoms) and Glucose results less than 70 give GLucose 40% Gel 1 tube orally - Recheck Glucose 15 minutes after administratio n. 1 tube 2023 Active 2023 42375 64045 8 By Mouth False Lorazepam 0.5 mg tablet [generic] 0.5 mg By Mouth Every 8 hours as needed For Anxiety 0.5 mg 11/18 Inactiv e 2023 93311 20074 0 Every 8 hours as needed By Mouth False Potassium chloride ER 20 mEq tablet,exte nded release [generic] 40 meq By Mouth Once daily For Hypokalemia 40 meq 11/13 Inactiv e 2023 43030 88822 1 Once daily By Mouth False Colesevelam 625 mg tablet [generic] 1250 mg By Mouth Twice daily For TYPE 2 DIABETES MELLITUS WITHOUT COMPLICATIONS 1250 mg 11/19 Inactiv e 2023 97425 51235 1 Twice daily By Mouth E11.9 False Pioglitazon e 15 mg tablet [generic] 15 mg By Mouth Once daily For TYPE 2 DIABETES MELLITUS WITHOUT COMPLICATIONS 15 mg 11/14 Inactiv e 2023 10991 51992 1 Once daily By Mouth E11.9 False Cholecalcif hardeep (vitamin D3) 50 mcg (2,000 unit) tablet [generic] 50 mcg By Mouth Once daily For Supplement 50 mcg 2023 Active 2023 61679 76512 1 Once daily By Mouth False Colchicine 0.6 mg tablet [generic] 0.6 mg By Mouth Twice daily As Needed For Gout 0.6 mg 2023 Active 2023 54572 03145 4 Twice daily By Mouth False Levothyroxi ne 200 mcg tablet [generic] 200 mcg By Mouth Once daily For Hypothyroidis m 200 mcg 202300 0000 Active 2023 04443 82965 0 Once daily By Mouth False Ondansetron 4 mg disintegrat ing tablet [generic] 4 mg By Mouth Every 6 hours as needed For Nausea 4 mg 11/12 Inactiv e 2023 77961 56000 4 Every 6 hours as needed By Mouth False Docusate sodium 100 mg capsule [generic] 100 mg By Mouth Twice daily For Constipation 100 mg 202300 0000 Active 2023 56409 34852 1 Twice daily By Mouth False Oxycodone 5 mg tablet [generic] 5 mg By Mouth Every 6 hours as needed For Pain 5 mg 11/12 Inactiv e 2023 64486 20323 1 Every 6 hours as needed By Mouth False Oxycodone 5 mg tablet [generic] 5 mg By Mouth Every 6 hours as needed For Pain 5 mg 11/18 Inactiv e 2023 72144 36738 1 Every 6 hours as needed By Mouth False Milk of Magnesia 400 mg/5 mL oral suspension 30 ml By Mouth one time per day as needed if no BM x 3 days For Constipation 30 ml 202300 Active 2023 66413 07578 2 By Mouth False Ondansetron 4 mg disintegrat ing tablet [generic] 11/12 Inactiv e 2023 04982 87752 4 Ondansetron 4 mg disintegrat ing tablet [generic] 4 mg By Mouth Every 6 hours as needed For Nausea 4 mg 11/14 Inactiv e 2023 93158 62768 4 Every 6 hours as needed By Mouth False Potassium chloride ER 10 mEq capsule,ext ended release [generic] 40 mEq By Mouth Once daily For hypokalemia 40 mEq 11/17 Inactiv e 2023 04050 68962 1 Once daily By Mouth False Potassium chloride ER 10 mEq capsule,ext ended release [generic] 4 capsules By Mouth At bedtime For hypokalemia 4 capsule s 11/16 Inactiv e 2023 73060 94097 1 At bedtime By Mouth False Flomax 0.4 mg capsule 0.4 mg By Mouth At bedtime For Urinary retention 0.4 mg 11/18 Inactiv e 2023 15311 20265 1 At bedtime By Mouth False STOOL CULTURE Once daily Obtain stool culture, add C. Diff to routine stool culture For Rule out C. Diff 1x 2023 Active 2023 Once daily Other False Butrans 5 mcg/hour transdermal patch 1 patch Transdermal Every 7 Days For Pain 1 patch 2023 Active 2023 56676 56224 4 Every week Transd ermal False Pantoprazol e 40 mg tablet,nu yed release [generic] 40 mg By Mouth Twice daily For gerd 40 mg 2023 Active 2023 13836 80320 0 Twice daily By Mouth False Scopolamine 1 mg over 3 days transdermal patch [generic] 1 Transdermal Every 72 hours For nausea 1 11/21 Active 2023 13627 53392 4 Every 72 hours Transd ermal False Ondansetron 4 mg disintegrat ing tablet [generic] 11/14 Inactiv e 2023 09060 94722 4 Ondansetron 4 mg disintegrat ing tablet [generic] 4 mg By Mouth Every 8 hours For Nausea 4 mg 2023 Active 2023 11590 04969 4 Every 8 hours By Mouth False Miralax 17 gram oral powder packet 8.5 g (1/2 capful) By Mouth Once daily For constipation 8.5 g 11/18 Inactiv e 2023 80164 67193 6 Once daily By Mouth False Pioglitazon e 15 mg tablet [generic] 11/14 Inactiv e 2023 76915 86087 1 E11.9 Pioglitazon e 15 mg tablet [generic] 7.5mg ( half a tab) By Mouth Once daily For TYPE 2 DIABETES MELLITUS WITHOUT COMPLICATIONS 7.5mg 2023 Active 2023 19025 84524 1 Once daily By Mouth E11.9 False Mylanta Coat-Cool 1,200 mg-270 mg-80 mg/10 mL oral suspension 10 ml By Mouth Every 8 hours As Needed For heartburn, indigestion, gas 10 ml 2023 Active 2023 20190 60024 1 Every 8 hours By Mouth False Prochlorper azine maleate 5 mg tablet [generic] 5 mg By Mouth Every 8 hours as needed For Nausea 5 mg 2023 Active 2023 30156 65871 1 Every 8 hours as needed By Mouth False Potassium chloride ER 10 mEq capsule,ext ended release [generic] 10 meq By Mouth 4 times a day For Hypokalemia 10 meq 11/20 Inactiv e 2023 95857 90161 1 4 times a day By Mouth False Lorazepam 0.5 mg tablet [generic] 11/18 Inactiv e 2023 78562 26688 0 Lorazepam 0.5 mg tablet [generic] 0.5 mg By Mouth Every 8 hours as needed For Anxiety 0.5 mg 12/18 Active 2023 46965 82007 0 Every 8 hours as needed By Mouth False Flomax 0.4 mg capsule 11/18 Inactiv e 2023 71502 86525 1 Flomax 0.4 mg capsule 0.4 mg By Mouth Once daily For Urinary retention 0.4 mg 11/19 Inactiv e 2023 16354 49694 1 Once daily By Mouth False Oxycodone 5 mg tablet [generic] 11/18 Inactiv e 2023 70125 81556 1 Oxycodone 5 mg tablet [generic] 5 mg By Mouth Every 6 hours as needed For Back Pain 5 mg 2023 Active 2023 71225 63246 1 Every 6 hours as needed By Mouth False Cipro 250 mg tablet 250 mg By Mouth Twice daily For UTI 250 mg 11/19 Inactiv e 2023 20471 02727 1 Twice daily By Mouth False Senna 8.6 mg tablet 17.2 mg By Mouth Twice daily For Constipation 17.2 mg 2023 Active 2023 60829 92914 1 Twice daily By Mouth False Zyprexa 2.5 mg tablet 2.5 mg By Mouth At bedtime For persistent nausea 2.5 mg 2023 Active 2023 34742 51038 0 At bedtime By Mouth False MAGNESSIUM GLUCONATE 500mg By Mouth Every morning For Supplement 500mg 2023 Active 2023 Every morning By Mouth False Cipro 250 mg tablet 11/19 Inactiv e 2023 97982 71222 1 Cipro 250 mg tablet 250 mg By Mouth Twice daily For UTI 250 mg 11/26 Active 2023 87467 56901 1 Twice daily By Mouth False Flomax 0.4 mg capsule 11/19 Inactiv e 2023 04617 22825 1 Flomax 0.4 mg capsule 0.4 mg By Mouth Once daily For Urinary retention 0.4 mg 11/26 Active 2023 40229 91885 1 Once daily By Mouth False Motrin IB 200 mg tablet 600 mg By Mouth Every 12 hours As Needed For Pain 600 mg 2023 Active 2023 76222 53429 2 Every 12 hours By Mouth False [...] weight Temperature SpO2 Blood Sugar Pulse Respirations 82300 5 75.00 mm[Hg] - Sitting 140.00 mm[Hg] - Sitting 65 NI 98.00 Tympanic 95.00 % 102.00 /min 18.00/min 8 95362 9 8 72030 2 75.00 mm[Hg] - Sitting 140.00 mm[Hg] - Sitting 98.00 Tympanic 102.00 /min 18.00/min 60847 918 64214 3 8 38310 1 72.00 mm[Hg] - Sitting 138.00 mm[Hg] - Sitting 98.40 Tympanic 96628 8 33629 4 88.00/ min 18.00/min 27340 919 86263 4 71.00 mm[Hg] - Sitting 115.00 mm[Hg] - Sitting 98.30 Tympanic 97.00 % 86.00/ min 16.00/min 71445 919 51683 0 71.00 mm[Hg] - Sitting 115.00 mm[Hg] - Sitting 98.30 Tympanic 86.00/ min 16.00/min 93845 919 41484 7 71.00 mm[Hg] - Sitting 115.00 mm[Hg] - Sitting 98.30 Tympanic 86.00/ min 16.00/min 33209 920 68092 6 72.00 mm[Hg] - Sitting 112.00 mm[Hg] - Sitting 98.10 Tympanic 82.00/ min 18.00/min 41781 920 28275 0 75.00 mm[Hg] - Sitting 130.00 mm[Hg] - Sitting 98.40 Forehead Scan 93.00 % 88.00/ min 18.00/min 54957 920 55526 2 75.00 mm[Hg] - Lying Down 130.00 mm[Hg] - Lying Down 98.40 Tympanic 88.00/ min 18.00/min 10157 920 64618 5 75.00 mm[Hg] - Lying Down 130.00 mm[Hg] - Lying Down 98.40 Tympanic 88.00/ min 18.00/min 42631 920 20108 6 199.00 NI 85689 920 42453 3 75.00 mm[Hg] - Sitting 130.00 mm[Hg] - Sitting 98.40 Tympanic 88.00/ min 18.00/min 49982 921 89943 1 71.00 mm[Hg] - Lying Down 119.00 mm[Hg] - Lying Down 98.40 Forehead Scan 96.00 % 83.00/ min 16.00/min 62195 922 10811 6 71.00 mm[Hg] - Lying Down 128.00 mm[Hg] - Lying Down 98.30 Forehead Scan 94.00 % 84.00/ min 18.00/min 10692 923 72779 4 63.00 mm[Hg] - Sitting 105.00 mm[Hg] - Sitting 98.20 Tympanic 93.00 % 93.00/ min 18.00/min 40735 924 30666 8 66.00 mm[Hg] - Sitting 104.00 mm[Hg] - Sitting 98.20 Tympanic 98.00 % 84.00/ min 16.00/min 01547 925 81785 2 131.00 mg/dL 31152 925 07378 6 138.00 mg/dL 44732 926 49002 1 199.00 NI
--- OUTSIDE RECORDS SUMMARY | 2023-12-13 23:57 | External Medical Summary | Continuity Of Care Document ---
Author Name Unknown Address [address] [place] [address] Organization [facility] [place] () Care Team Providers Care Supervisor Real Estate Office Name Role Phone DO Parson Amy Primary Care Provider [phone] Allergies Allergy Reaction Start Date End Date [...] 3 0.1 mL 11/13 Inactiv e 2023 45967 87299 0 1 time Intrad ermal False Tubersol 5 tub. unit/0.1 mL intradermal injection solution [Tuberculin PPD] 0.1mL Intradermal 1 time For PPD 2nd Step Give 2nd Step PPD Day 1 and Read results Day 3 (schedule 7 days after 1st READ) 0.1mL 11/13 Inactiv e 2023 87810 31608 0 1 time Intrad ermal False DISCONTINUE as of 11/14/2023: Tubersol 5 tub. unit/0.1 mL intradermal injection solution [Tuberculin PPD] 11/13 Inactiv e 2023 40011 83031 0 Tubersol 5 tub. unit/0.1 mL intradermal injection solution 0.1 mL Intradermal 1 time For PPD Step 1 GIVE on Day 1 and read results Day 3 0.1 mL 11/16 Inactiv e 2023 19637 76785 1 1 time Intrad ermal False DISCONTINUE as of 11/14/2023: Tubersol 5 tub. unit/0.1 mL intradermal injection solution [Tuberculin PPD] 11/13 Inactiv e 2023 96899 76317 0 Tubersol 5 tub. unit/0.1 mL intradermal injection solution 0.1mL Intradermal 1 time For PPD 2nd Step Give 2nd Step PPD Day 1 and Read results Day 3 (schedule 7 days after 1st READ) 0.1mL 11/25 Active 2023 32659 76320 1 1 time Intrad ermal False Tylenol 325 mg tablet 2 tabs By Mouth Every 4 hours as needed For Pain DO NOT EXCEED 3000 MG APAP/24 Hours 2 tabs 202300 /0000 Active 2023 06653 14173 0 Every 4 hours as needed By Mouth False Tylenol 325 mg tablet 2 tabs By Mouth Every 4 hours as needed For Fever >100 DO NOT EXCEED 3000 MG APAP/24 Hours 2 tabs 202300 /0000 Active 2023 87025 24448 0 Every 4 hours as needed By Mouth False Dulcolax (bisacodyl) 10 mg rectal suppository One Suppository per rectum PRN if Milk of Magnisia ineffective. Give on day 5 of no BM 1 sup 2023 Active 2023 10038 68428 1 Daily as needed Rectal False Fleet Enema 19 gram-7 gram/118 mL Administer per rectum PRN one time if dulcolax suppository not effective. Give on day 6 of no BM 1 202300 0000 Active 2023 97568 43497 6 Daily as needed Rectal False Dextrose 50 % in water (D50W) intravenous solution [generic] Dextrose 50% reyes 20-50 ml (slow push) Intravenous if Glucagon not effective after 15 minutes. CALL 911 for ED Evaluation. 50% reyes 202300 /0000 Active 2023 21322 13264 9 Intrav enous False Glucagon (HCl) Emergency Kit 1 mg solution for injection Administer Glucagon 1 mg Intramuscular if 15 minutes after GLucose Gel is administered Glucose remains less than 70 1 mg 2023 Active 2023 95234 05877 2 Intram uscula r False Glucose Gel 40 % oral gel [Dextrose] PRN If resident is unable to swallow (with or without symptoms) and Glucose results less than 70 give GLucose 40% Gel 1 tube orally - Recheck Glucose 15 minutes after administratio n. 1 tube 2023 Active 2023 34275 09797 8 By Mouth False Lorazepam 0.5 mg tablet [generic] 0.5 mg By Mouth Every 8 hours as needed For Anxiety 0.5 mg 11/18 Inactiv e 2023 15188 99865 0 Every 8 hours as needed By Mouth False Potassium chloride ER 20 mEq tablet,exte nded release [generic] 40 meq By Mouth Once daily For Hypokalemia 40 meq 11/13 Inactiv e 2023 68192 76427 1 Once daily By Mouth False Colesevelam 625 mg tablet [generic] 1250 mg By Mouth Twice daily For TYPE 2 DIABETES MELLITUS WITHOUT COMPLICATIONS 1250 mg 11/19 Inactiv e 2023 63675 91835 1 Twice daily By Mouth E11.9 False Pioglitazon e 15 mg tablet [generic] 15 mg By Mouth Once daily For TYPE 2 DIABETES MELLITUS WITHOUT COMPLICATIONS 15 mg 11/14 Inactiv e 2023 33538 60961 1 Once daily By Mouth E11.9 False Cholecalcif hardeep (vitamin D3) 50 mcg (2,000 unit) tablet [generic] 50 mcg By Mouth Once daily For Supplement 50 mcg 2023 Active 2023 34916 62417 1 Once daily By Mouth False Colchicine 0.6 mg tablet [generic] 0.6 mg By Mouth Twice daily As Needed For Gout 0.6 mg 2023 Active 2023 62800 84087 4 Twice daily By Mouth False Levothyroxi ne 200 mcg tablet [generic] 200 mcg By Mouth Once daily For Hypothyroidis m 200 mcg 202300 0000 Active 2023 67331 39080 0 Once daily By Mouth False Ondansetron 4 mg disintegrat ing tablet [generic] 4 mg By Mouth Every 6 hours as needed For Nausea 4 mg 11/12 Inactiv e 2023 14164 15169 4 Every 6 hours as needed By Mouth False Docusate sodium 100 mg capsule [generic] 100 mg By Mouth Twice daily For Constipation 100 mg 202300 0000 Active 2023 99055 78100 1 Twice daily By Mouth False Oxycodone 5 mg tablet [generic] 5 mg By Mouth Every 6 hours as needed For Pain 5 mg 11/12 Inactiv e 2023 80161 88923 1 Every 6 hours as needed By Mouth False Oxycodone 5 mg tablet [generic] 5 mg By Mouth Every 6 hours as needed For Pain 5 mg 11/18 Inactiv e 2023 44602 42851 1 Every 6 hours as needed By Mouth False Milk of Magnesia 400 mg/5 mL oral suspension 30 ml By Mouth one time per day as needed if no BM x 3 days For Constipation 30 ml 202300 Active 2023 11967 98010 2 By Mouth False Ondansetron 4 mg disintegrat ing tablet [generic] 11/12 Inactiv e 2023 42876 61074 4 Ondansetron 4 mg disintegrat ing tablet [generic] 4 mg By Mouth Every 6 hours as needed For Nausea 4 mg 11/14 Inactiv e 2023 07375 25683 4 Every 6 hours as needed By Mouth False Potassium chloride ER 10 mEq capsule,ext ended release [generic] 40 mEq By Mouth Once daily For hypokalemia 40 mEq 11/17 Inactiv e 2023 43666 67254 1 Once daily By Mouth False Potassium chloride ER 10 mEq capsule,ext ended release [generic] 4 capsules By Mouth At bedtime For hypokalemia 4 capsule s 11/16 Inactiv e 2023 69387 97828 1 At bedtime By Mouth False Flomax 0.4 mg capsule 0.4 mg By Mouth At bedtime For Urinary retention 0.4 mg 11/18 Inactiv e 2023 47562 92882 1 At bedtime By Mouth False STOOL CULTURE Once daily Obtain stool culture, add C. Diff to routine stool culture For Rule out C. Diff 1x 2023 Active 2023 Once daily Other False Butrans 5 mcg/hour transdermal patch 1 patch Transdermal Every 7 Days For Pain 1 patch 2023 Active 2023 98535 59722 4 Every week Transd ermal False Pantoprazol e 40 mg tablet,nu yed release [generic] 40 mg By Mouth Twice daily For gerd 40 mg 2023 Active 2023 10996 84017 0 Twice daily By Mouth False Scopolamine 1 mg over 3 days transdermal patch [generic] 1 Transdermal Every 72 hours For nausea 1 11/21 Active 2023 96984 65565 4 Every 72 hours Transd ermal False Ondansetron 4 mg disintegrat ing tablet [generic] 11/14 Inactiv e 2023 11070 90970 4 Ondansetron 4 mg disintegrat ing tablet [generic] 4 mg By Mouth Every 8 hours For Nausea 4 mg 2023 Active 2023 26970 81993 4 Every 8 hours By Mouth False Miralax 17 gram oral powder packet 8.5 g (1/2 capful) By Mouth Once daily For constipation 8.5 g 11/18 Inactiv e 2023 65191 47582 6 Once daily By Mouth False Pioglitazon e 15 mg tablet [generic] 11/14 Inactiv e 2023 21622 94596 1 E11.9 Pioglitazon e 15 mg tablet [generic] 7.5mg ( half a tab) By Mouth Once daily For TYPE 2 DIABETES MELLITUS WITHOUT COMPLICATIONS 7.5mg 2023 Active 2023 82896 94811 1 Once daily By Mouth E11.9 False Mylanta Coat-Cool 1,200 mg-270 mg-80 mg/10 mL oral suspension 10 ml By Mouth Every 8 hours As Needed For heartburn, indigestion, gas 10 ml 2023 Active 2023 95195 94759 1 Every 8 hours By Mouth False Prochlorper azine maleate 5 mg tablet [generic] 5 mg By Mouth Every 8 hours as needed For Nausea 5 mg 2023 Active 2023 85799 59193 1 Every 8 hours as needed By Mouth False Potassium chloride ER 10 mEq capsule,ext ended release [generic] 10 meq By Mouth 4 times a day For Hypokalemia 10 meq 11/20 Inactiv e 2023 29561 36638 1 4 times a day By Mouth False Lorazepam 0.5 mg tablet [generic] 11/18 Inactiv e 2023 17736 63240 0 Lorazepam 0.5 mg tablet [generic] 0.5 mg By Mouth Every 8 hours as needed For Anxiety 0.5 mg 12/18 Active 2023 17776 25899 0 Every 8 hours as needed By Mouth False Flomax 0.4 mg capsule 11/18 Inactiv e 2023 36033 37738 1 Flomax 0.4 mg capsule 0.4 mg By Mouth Once daily For Urinary retention 0.4 mg 11/19 Inactiv e 2023 73131 52429 1 Once daily By Mouth False Oxycodone 5 mg tablet [generic] 11/18 Inactiv e 2023 99323 22992 1 Oxycodone 5 mg tablet [generic] 5 mg By Mouth Every 6 hours as needed For Back Pain 5 mg 2023 Active 2023 61740 59506 1 Every 6 hours as needed By Mouth False Cipro 250 mg tablet 250 mg By Mouth Twice daily For UTI 250 mg 11/19 Inactiv e 2023 97882 94394 1 Twice daily By Mouth False Senna 8.6 mg tablet 17.2 mg By Mouth Twice daily For Constipation 17.2 mg 2023 Active 2023 09676 62212 1 Twice daily By Mouth False Zyprexa 2.5 mg tablet 2.5 mg By Mouth At bedtime For persistent nausea 2.5 mg 2023 Active 2023 33187 19287 0 At bedtime By Mouth False MAGNESSIUM GLUCONATE 500mg By Mouth Every morning For Supplement 500mg 2023 Active 2023 Every morning By Mouth False Cipro 250 mg tablet 11/19 Inactiv e 2023 54939 21862 1 Cipro 250 mg tablet 250 mg By Mouth Twice daily For UTI 250 mg 11/26 Active 2023 84455 27880 1 Twice daily By Mouth False Flomax 0.4 mg capsule 11/19 Inactiv e 2023 58544 33180 1 Flomax 0.4 mg capsule 0.4 mg By Mouth Once daily For Urinary retention 0.4 mg 11/26 Active 2023 26590 95046 1 Once daily By Mouth False Motrin IB 200 mg tablet 600 mg By Mouth Every 12 hours As Needed For Pain 600 mg 11/20 Inactiv e 2023 09618 15436 2 Every 12 hours By Mouth False Motrin IB 200 mg tablet 600 mg By Mouth Every 12 hours As Needed For Pain 600 mg 11/20 Inactiv e 2023 99597 81360 2 Every 12 hours By Mouth False Motrin IB 200 mg tablet 600 mg By Mouth Every 12 hours As Needed For Pain 600 mg 11/27 Active 2023 19124 30551 2 Every 12 hours By Mouth False [...] weight Temperature SpO2 Blood Sugar Pulse Respirations 00189 5 75.00 mm[Hg] - Sitting 140.00 mm[Hg] - Sitting 65 NI 98.00 Tympanic 95.00 % 102.00 /min 18.00/min 8 93207 9 09388 2 75.00 mm[Hg] - Sitting 140.00 mm[Hg] - Sitting 98.00 Tympanic 102.00 /min 18.00/min 918 12881 3 8 56760 1 72.00 mm[Hg] - Sitting 138.00 mm[Hg] - Sitting 98.40 Tympanic 05852 4 88.00/ min 18.00/min 66081 919 98100 4 71.00 mm[Hg] - Sitting 115.00 mm[Hg] - Sitting 98.30 Tympanic 97.00 % 86.00/ min 16.00/min 26782 919 04836 0 71.00 mm[Hg] - Sitting 115.00 mm[Hg] - Sitting 98.30 Tympanic 86.00/ min 16.00/min 71688 919 61528 7 71.00 mm[Hg] - Sitting 115.00 mm[Hg] - Sitting 98.30 Tympanic 86.00/ min 16.00/min 46174 920 45497 6 72.00 mm[Hg] - Sitting 112.00 mm[Hg] - Sitting 98.10 Tympanic 82.00/ min 18.00/min 09031 920 71619 0 75.00 mm[Hg] - Sitting 130.00 mm[Hg] - Sitting 98.40 Forehead Scan 93.00 % 88.00/ min 18.00/min 40067 920 11674 2 75.00 mm[Hg] - Lying Down 130.00 mm[Hg] - Lying Down 98.40 Tympanic 88.00/ min 18.00/min 00250 920 84453 5 75.00 mm[Hg] - Lying Down 130.00 mm[Hg] - Lying Down 98.40 Tympanic 88.00/ min 18.00/min 60993 920 89096 6 199.00 NI 72651 920 10341 3 75.00 mm[Hg] - Sitting 130.00 mm[Hg] - Sitting 98.40 Tympanic 88.00/ min 18.00/min 61586 921 40556 1 71.00 mm[Hg] - Lying Down 119.00 mm[Hg] - Lying Down 98.40 Forehead Scan 96.00 % 83.00/ min 16.00/min 34586 922 70088 6 71.00 mm[Hg] - Lying Down 128.00 mm[Hg] - Lying Down 98.30 Forehead Scan 94.00 % 84.00/ min 18.00/min 37567 923 28914 4 63.00 mm[Hg] - Sitting 105.00 mm[Hg] - Sitting 98.20 Tympanic 93.00 % 93.00/ min 18.00/min 32412 924 16503 8 66.00 mm[Hg] - Sitting 104.00 mm[Hg] - Sitting 98.20 Tympanic 98.00 % 84.00/ min 16.00/min 58523 925 05589 2 131.00 mg/dL 01269 925 74727 6 138.00 mg/dL 22398 926 91054 1 199.00 NI
--- OUTSIDE RECORDS SUMMARY | 2023-12-13 23:57 | External Medical Summary | Continuity Of Care Document ---
Author Name Unknown Address [address] [place] [address] Organization [facility] () Care Team Providers Care Casting Coordinator Name Role Phone DO Parson Amy Primary Care Provider [phone] Allergies Allergy Reaction Start Date End Date [...] 3 0.1 mL 11/13 Inactiv e 2023 22528 16057 0 1 time Intrad ermal False Tubersol 5 tub. unit/0.1 mL intradermal injection solution [Tuberculin PPD] 0.1mL Intradermal 1 time For PPD 2nd Step Give 2nd Step PPD Day 1 and Read results Day 3 (schedule 7 days after 1st READ) 0.1mL 11/13 Inactiv e 2023 02556 31115 0 1 time Intrad ermal False DISCONTINUE as of 11/14/2023: Tubersol 5 tub. unit/0.1 mL intradermal injection solution [Tuberculin PPD] 11/13 Inactiv e 2023 55366 63341 0 Tubersol 5 tub. unit/0.1 mL intradermal injection solution 0.1 mL Intradermal 1 time For PPD Step 1 GIVE on Day 1 and read results Day 3 0.1 mL 11/16 Inactiv e 2023 99444 69926 1 1 time Intrad ermal False DISCONTINUE as of 11/14/2023: Tubersol 5 tub. unit/0.1 mL intradermal injection solution [Tuberculin PPD] 11/13 Inactiv e 2023 03547 69591 0 Tubersol 5 tub. unit/0.1 mL intradermal injection solution 0.1mL Intradermal 1 time For PPD 2nd Step Give 2nd Step PPD Day 1 and Read results Day 3 (schedule 7 days after 1st READ) 0.1mL 11/25 Active 2023 27658 21939 1 1 time Intrad ermal False Tylenol 325 mg tablet 2 tabs By Mouth Every 4 hours as needed For Pain DO NOT EXCEED 3000 MG APAP/24 Hours 2 tabs 202300 /0000 Active 2023 91435 47874 0 Every 4 hours as needed By Mouth False Tylenol 325 mg tablet 2 tabs By Mouth Every 4 hours as needed For Fever >100 DO NOT EXCEED 3000 MG APAP/24 Hours 2 tabs 202300 /0000 Active 2023 86239 34035 0 Every 4 hours as needed By Mouth False Dulcolax (bisacodyl) 10 mg rectal suppository One Suppository per rectum PRN if Milk of Magnisia ineffective. Give on day 5 of no BM 1 sup 2023 Active 2023 75972 38026 1 Daily as needed Rectal False Fleet Enema 19 gram-7 gram/118 mL Administer per rectum PRN one time if dulcolax suppository not effective. Give on day 6 of no BM 1 202300 0000 Active 2023 51142 78841 6 Daily as needed Rectal False Dextrose 50 % in water (D50W) intravenous solution [generic] Dextrose 50% reyes 20-50 ml (slow push) Intravenous if Glucagon not effective after 15 minutes. CALL 911 for ED Evaluation. 50% reyes 202300 /0000 Active 2023 76474 29088 9 Intrav enous False Glucagon (HCl) Emergency Kit 1 mg solution for injection Administer Glucagon 1 mg Intramuscular if 15 minutes after GLucose Gel is administered Glucose remains less than 70 1 mg 2023 Active 2023 95459 42550 2 Intram uscula r False Glucose Gel 40 % oral gel [Dextrose] PRN If resident is unable to swallow (with or without symptoms) and Glucose results less than 70 give GLucose 40% Gel 1 tube orally - Recheck Glucose 15 minutes after administratio n. 1 tube 2023 Active 2023 29618 93039 8 By Mouth False Lorazepam 0.5 mg tablet [generic] 0.5 mg By Mouth Every 8 hours as needed For Anxiety 0.5 mg 11/18 Inactiv e 2023 21104 34851 0 Every 8 hours as needed By Mouth False Potassium chloride ER 20 mEq tablet,exte nded release [generic] 40 meq By Mouth Once daily For Hypokalemia 40 meq 11/13 Inactiv e 2023 45235 96672 1 Once daily By Mouth False Colesevelam 625 mg tablet [generic] 1250 mg By Mouth Twice daily For TYPE 2 DIABETES MELLITUS WITHOUT COMPLICATIONS 1250 mg 11/19 Inactiv e 2023 17801 40504 1 Twice daily By Mouth E11.9 False Pioglitazon e 15 mg tablet [generic] 15 mg By Mouth Once daily For TYPE 2 DIABETES MELLITUS WITHOUT COMPLICATIONS 15 mg 11/14 Inactiv e 2023 43581 47370 1 Once daily By Mouth E11.9 False Cholecalcif hardeep (vitamin D3) 50 mcg (2,000 unit) tablet [generic] 50 mcg By Mouth Once daily For Supplement 50 mcg 2023 Active 2023 72444 28027 1 Once daily By Mouth False Colchicine 0.6 mg tablet [generic] 0.6 mg By Mouth Twice daily As Needed For Gout 0.6 mg 2023 Active 2023 61766 58982 4 Twice daily By Mouth False Levothyroxi ne 200 mcg tablet [generic] 200 mcg By Mouth Once daily For Hypothyroidis m 200 mcg 202300 0000 Active 2023 30754 11885 0 Once daily By Mouth False Ondansetron 4 mg disintegrat ing tablet [generic] 4 mg By Mouth Every 6 hours as needed For Nausea 4 mg 11/12 Inactiv e 2023 38662 00175 4 Every 6 hours as needed By Mouth False Docusate sodium 100 mg capsule [generic] 100 mg By Mouth Twice daily For Constipation 100 mg 202300 0000 Active 2023 59045 29821 1 Twice daily By Mouth False Oxycodone 5 mg tablet [generic] 5 mg By Mouth Every 6 hours as needed For Pain 5 mg 11/12 Inactiv e 2023 37364 69177 1 Every 6 hours as needed By Mouth False Oxycodone 5 mg tablet [generic] 5 mg By Mouth Every 6 hours as needed For Pain 5 mg 11/18 Inactiv e 2023 83091 81737 1 Every 6 hours as needed By Mouth False Milk of Magnesia 400 mg/5 mL oral suspension 30 ml By Mouth one time per day as needed if no BM x 3 days For Constipation 30 ml 202300 Active 2023 67477 89848 2 By Mouth False Ondansetron 4 mg disintegrat ing tablet [generic] 11/12 Inactiv e 2023 93219 19179 4 Ondansetron 4 mg disintegrat ing tablet [generic] 4 mg By Mouth Every 6 hours as needed For Nausea 4 mg 11/14 Inactiv e 2023 25804 45555 4 Every 6 hours as needed By Mouth False Potassium chloride ER 10 mEq capsule,ext ended release [generic] 40 mEq By Mouth Once daily For hypokalemia 40 mEq 11/17 Inactiv e 2023 03816 95397 1 Once daily By Mouth False Potassium chloride ER 10 mEq capsule,ext ended release [generic] 4 capsules By Mouth At bedtime For hypokalemia 4 capsule s 11/16 Inactiv e 2023 87304 40368 1 At bedtime By Mouth False Flomax 0.4 mg capsule 0.4 mg By Mouth At bedtime For Urinary retention 0.4 mg 11/18 Inactiv e 2023 35575 22357 1 At bedtime By Mouth False STOOL CULTURE Once daily Obtain stool culture, add C. Diff to routine stool culture For Rule out C. Diff 1x 2023 Active 2023 Once daily Other False Butrans 5 mcg/hour transdermal patch 1 patch Transdermal Every 7 Days For Pain 1 patch 2023 Active 2023 86901 21007 4 Every week Transd ermal False Pantoprazol e 40 mg tablet,nu yed release [generic] 40 mg By Mouth Twice daily For gerd 40 mg 2023 Active 2023 22722 20117 0 Twice daily By Mouth False Scopolamine 1 mg over 3 days transdermal patch [generic] 1 Transdermal Every 72 hours For nausea 1 11/21 Active 2023 44437 09355 4 Every 72 hours Transd ermal False Ondansetron 4 mg disintegrat ing tablet [generic] 11/14 Inactiv e 2023 88299 79236 4 Ondansetron 4 mg disintegrat ing tablet [generic] 4 mg By Mouth Every 8 hours For Nausea 4 mg 2023 Active 2023 80908 47447 4 Every 8 hours By Mouth False Miralax 17 gram oral powder packet 8.5 g (1/2 capful) By Mouth Once daily For constipation 8.5 g 11/18 Inactiv e 2023 37663 49115 6 Once daily By Mouth False Pioglitazon e 15 mg tablet [generic] 11/14 Inactiv e 2023 34266 39907 1 E11.9 Pioglitazon e 15 mg tablet [generic] 7.5mg ( half a tab) By Mouth Once daily For TYPE 2 DIABETES MELLITUS WITHOUT COMPLICATIONS 7.5mg 2023 Active 2023 62476 84015 1 Once daily By Mouth E11.9 False Mylanta Coat-Cool 1,200 mg-270 mg-80 mg/10 mL oral suspension 10 ml By Mouth Every 8 hours As Needed For heartburn, indigestion, gas 10 ml 2023 Active 2023 75791 41017 1 Every 8 hours By Mouth False Prochlorper azine maleate 5 mg tablet [generic] 5 mg By Mouth Every 8 hours as needed For Nausea 5 mg 2023 Active 2023 43618 79693 1 Every 8 hours as needed By Mouth False Potassium chloride ER 10 mEq capsule,ext ended release [generic] 10 meq By Mouth 4 times a day For Hypokalemia 10 meq 11/20 Inactiv e 2023 83298 75203 1 4 times a day By Mouth False Lorazepam 0.5 mg tablet [generic] 11/18 Inactiv e 2023 97563 76704 0 Lorazepam 0.5 mg tablet [generic] 0.5 mg By Mouth Every 8 hours as needed For Anxiety 0.5 mg 12/18 Active 2023 27445 27791 0 Every 8 hours as needed By Mouth False Flomax 0.4 mg capsule 11/18 Inactiv e 2023 55929 29591 1 Flomax 0.4 mg capsule 0.4 mg By Mouth Once daily For Urinary retention 0.4 mg 11/19 Inactiv e 2023 03332 34707 1 Once daily By Mouth False Oxycodone 5 mg tablet [generic] 11/18 Inactiv e 2023 68960 75811 1 Oxycodone 5 mg tablet [generic] 5 mg By Mouth Every 6 hours as needed For Back Pain 5 mg 2023 Active 2023 18989 50066 1 Every 6 hours as needed By Mouth False Cipro 250 mg tablet 250 mg By Mouth Twice daily For UTI 250 mg 11/19 Inactiv e 2023 67047 79523 1 Twice daily By Mouth False Senna 8.6 mg tablet 17.2 mg By Mouth Twice daily For Constipation 17.2 mg 2023 Active 2023 26878 10181 1 Twice daily By Mouth False Zyprexa 2.5 mg tablet 2.5 mg By Mouth At bedtime For persistent nausea 2.5 mg 2023 Active 2023 41790 07847 0 At bedtime By Mouth False MAGNESSIUM GLUCONATE 500mg By Mouth Every morning For Supplement 500mg 2023 Active 2023 Every morning By Mouth False Cipro 250 mg tablet 11/19 Inactiv e 2023 86712 60681 1 Cipro 250 mg tablet 250 mg By Mouth Twice daily For UTI 250 mg 11/26 Active 2023 63963 42335 1 Twice daily By Mouth False Flomax 0.4 mg capsule 11/19 Inactiv e 2023 13090 96232 1 Flomax 0.4 mg capsule 0.4 mg By Mouth Once daily For Urinary retention 0.4 mg 11/26 Active 2023 10444 26415 1 Once daily By Mouth False Motrin IB 200 mg tablet 600 mg By Mouth Every 12 hours As Needed For Pain 600 mg 2023 Active 2023 35702 78581 2 Every 12 hours By Mouth False [...] weight Temperature SpO2 Blood Sugar Pulse Respirations 95169 5 75.00 mm[Hg] - Sitting 140.00 mm[Hg] - Sitting 65 NI 98.00 Tympanic 95.00 % 102.00 /min 18.00/min 8 26878 9 8 30044 2 75.00 mm[Hg] - Sitting 140.00 mm[Hg] - Sitting 98.00 Tympanic 102.00 /min 18.00/min 20101 918 10697 3 8 74351 1 72.00 mm[Hg] - Sitting 138.00 mm[Hg] - Sitting 98.40 Tympanic 68632 8 69442 4 88.00/ min 18.00/min 05599 919 15045 4 71.00 mm[Hg] - Sitting 115.00 mm[Hg] - Sitting 98.30 Tympanic 97.00 % 86.00/ min 16.00/min 90518 919 35882 0 71.00 mm[Hg] - Sitting 115.00 mm[Hg] - Sitting 98.30 Tympanic 86.00/ min 16.00/min 25742 919 30178 7 71.00 mm[Hg] - Sitting 115.00 mm[Hg] - Sitting 98.30 Tympanic 86.00/ min 16.00/min 24374 920 31867 6 72.00 mm[Hg] - Sitting 112.00 mm[Hg] - Sitting 98.10 Tympanic 82.00/ min 18.00/min 57413 920 40612 0 75.00 mm[Hg] - Sitting 130.00 mm[Hg] - Sitting 98.40 Forehead Scan 93.00 % 88.00/ min 18.00/min 23679 920 03045 2 75.00 mm[Hg] - Lying Down 130.00 mm[Hg] - Lying Down 98.40 Tympanic 88.00/ min 18.00/min 80512 920 57333 5 75.00 mm[Hg] - Lying Down 130.00 mm[Hg] - Lying Down 98.40 Tympanic 88.00/ min 18.00/min 63240 920 27613 6 199.00 NI 19669 920 83880 3 75.00 mm[Hg] - Sitting 130.00 mm[Hg] - Sitting 98.40 Tympanic 88.00/ min 18.00/min 76844 921 02015 1 71.00 mm[Hg] - Lying Down 119.00 mm[Hg] - Lying Down 98.40 Forehead Scan 96.00 % 83.00/ min 16.00/min 21534 922 72494 6 71.00 mm[Hg] - Lying Down 128.00 mm[Hg] - Lying Down 98.30 Forehead Scan 94.00 % 84.00/ min 18.00/min 16024 923 67786 4 63.00 mm[Hg] - Sitting 105.00 mm[Hg] - Sitting 98.20 Tympanic 93.00 % 93.00/ min 18.00/min 78569 924 33046 8 66.00 mm[Hg] - Sitting 104.00 mm[Hg] - Sitting 98.20 Tympanic 98.00 % 84.00/ min 16.00/min 67571 925 84721 2 131.00 mg/dL 09359 925 18880 6 138.00 mg/dL 25296 926 99160 1 199.00 NI
--- OUTSIDE RECORDS SUMMARY | 2023-12-13 23:57 | External Medical Summary | Continuity Of Care Document ---
Author Name Unknown Address [address] [place] [address] Organization [facility] () Care Team Providers Care Emergency Room Physician Assistant Name Role Phone DO Parson Amy Primary Care Provider [phone] Allergies Allergy Reaction Start Date End Date [...] 3 0.1 mL 11/13 Inactiv e 2023 30106 47368 0 1 time Intrad ermal False Tubersol 5 tub. unit/0.1 mL intradermal injection solution [Tuberculin PPD] 0.1mL Intradermal 1 time For PPD 2nd Step Give 2nd Step PPD Day 1 and Read results Day 3 (schedule 7 days after 1st READ) 0.1mL 11/13 Inactiv e 2023 62825 11396 0 1 time Intrad ermal False DISCONTINUE as of 11/14/2023: Tubersol 5 tub. unit/0.1 mL intradermal injection solution [Tuberculin PPD] 11/13 Inactiv e 2023 33695 20913 0 Tubersol 5 tub. unit/0.1 mL intradermal injection solution 0.1 mL Intradermal 1 time For PPD Step 1 GIVE on Day 1 and read results Day 3 0.1 mL 11/16 Inactiv e 2023 93413 79384 1 1 time Intrad ermal False DISCONTINUE as of 11/14/2023: Tubersol 5 tub. unit/0.1 mL intradermal injection solution [Tuberculin PPD] 11/13 Inactiv e 2023 24480 82473 0 Tubersol 5 tub. unit/0.1 mL intradermal injection solution 0.1mL Intradermal 1 time For PPD 2nd Step Give 2nd Step PPD Day 1 and Read results Day 3 (schedule 7 days after 1st READ) 0.1mL 11/25 Active 2023 51296 06075 1 1 time Intrad ermal False Tylenol 325 mg tablet 2 tabs By Mouth Every 4 hours as needed For Pain DO NOT EXCEED 3000 MG APAP/24 Hours 2 tabs 202300 /0000 Active 2023 69601 57410 0 Every 4 hours as needed By Mouth False Tylenol 325 mg tablet 2 tabs By Mouth Every 4 hours as needed For Fever >100 DO NOT EXCEED 3000 MG APAP/24 Hours 2 tabs 202300 /0000 Active 2023 12769 72117 0 Every 4 hours as needed By Mouth False Dulcolax (bisacodyl) 10 mg rectal suppository One Suppository per rectum PRN if Milk of Magnisia ineffective. Give on day 5 of no BM 1 sup 2023 Active 2023 07858 82820 1 Daily as needed Rectal False Fleet Enema 19 gram-7 gram/118 mL Administer per rectum PRN one time if dulcolax suppository not effective. Give on day 6 of no BM 1 202300 0000 Active 2023 35679 36328 6 Daily as needed Rectal False Dextrose 50 % in water (D50W) intravenous solution [generic] Dextrose 50% reyes 20-50 ml (slow push) Intravenous if Glucagon not effective after 15 minutes. CALL 911 for ED Evaluation. 50% reyes 202300 /0000 Active 2023 34405 72509 9 Intrav enous False Glucagon (HCl) Emergency Kit 1 mg solution for injection Administer Glucagon 1 mg Intramuscular if 15 minutes after GLucose Gel is administered Glucose remains less than 70 1 mg 2023 Active 2023 10468 24542 2 Intram uscula r False Glucose Gel 40 % oral gel [Dextrose] PRN If resident is unable to swallow (with or without symptoms) and Glucose results less than 70 give GLucose 40% Gel 1 tube orally - Recheck Glucose 15 minutes after administratio n. 1 tube 2023 Active 2023 91810 70872 8 By Mouth False Lorazepam 0.5 mg tablet [generic] 0.5 mg By Mouth Every 8 hours as needed For Anxiety 0.5 mg 11/18 Inactiv e 2023 44292 18060 0 Every 8 hours as needed By Mouth False Potassium chloride ER 20 mEq tablet,exte nded release [generic] 40 meq By Mouth Once daily For Hypokalemia 40 meq 11/13 Inactiv e 2023 43323 70340 1 Once daily By Mouth False Colesevelam 625 mg tablet [generic] 1250 mg By Mouth Twice daily For TYPE 2 DIABETES MELLITUS WITHOUT COMPLICATIONS 1250 mg 11/19 Inactiv e 2023 73591 93389 1 Twice daily By Mouth E11.9 False Pioglitazon e 15 mg tablet [generic] 15 mg By Mouth Once daily For TYPE 2 DIABETES MELLITUS WITHOUT COMPLICATIONS 15 mg 11/14 Inactiv e 2023 84181 88730 1 Once daily By Mouth E11.9 False Cholecalcif hardeep (vitamin D3) 50 mcg (2,000 unit) tablet [generic] 50 mcg By Mouth Once daily For Supplement 50 mcg 2023 Active 2023 86851 68453 1 Once daily By Mouth False Colchicine 0.6 mg tablet [generic] 0.6 mg By Mouth Twice daily As Needed For Gout 0.6 mg 2023 Active 2023 15573 29127 4 Twice daily By Mouth False Levothyroxi ne 200 mcg tablet [generic] 200 mcg By Mouth Once daily For Hypothyroidis m 200 mcg 202300 0000 Active 2023 18447 33309 0 Once daily By Mouth False Ondansetron 4 mg disintegrat ing tablet [generic] 4 mg By Mouth Every 6 hours as needed For Nausea 4 mg 11/12 Inactiv e 2023 11776 14972 4 Every 6 hours as needed By Mouth False Docusate sodium 100 mg capsule [generic] 100 mg By Mouth Twice daily For Constipation 100 mg 202300 0000 Active 2023 03746 55817 1 Twice daily By Mouth False Oxycodone 5 mg tablet [generic] 5 mg By Mouth Every 6 hours as needed For Pain 5 mg 11/12 Inactiv e 2023 03067 40865 1 Every 6 hours as needed By Mouth False Oxycodone 5 mg tablet [generic] 5 mg By Mouth Every 6 hours as needed For Pain 5 mg 11/18 Inactiv e 2023 52613 84706 1 Every 6 hours as needed By Mouth False Milk of Magnesia 400 mg/5 mL oral suspension 30 ml By Mouth one time per day as needed if no BM x 3 days For Constipation 30 ml 202300 Active 2023 93757 00332 2 By Mouth False Ondansetron 4 mg disintegrat ing tablet [generic] 11/12 Inactiv e 2023 87023 89010 4 Ondansetron 4 mg disintegrat ing tablet [generic] 4 mg By Mouth Every 6 hours as needed For Nausea 4 mg 11/14 Inactiv e 2023 92255 78237 4 Every 6 hours as needed By Mouth False Potassium chloride ER 10 mEq capsule,ext ended release [generic] 40 mEq By Mouth Once daily For hypokalemia 40 mEq 11/17 Inactiv e 2023 71235 81706 1 Once daily By Mouth False Potassium chloride ER 10 mEq capsule,ext ended release [generic] 4 capsules By Mouth At bedtime For hypokalemia 4 capsule s 11/16 Inactiv e 2023 09154 17498 1 At bedtime By Mouth False Flomax 0.4 mg capsule 0.4 mg By Mouth At bedtime For Urinary retention 0.4 mg 11/18 Inactiv e 2023 74161 50523 1 At bedtime By Mouth False STOOL CULTURE Once daily Obtain stool culture, add C. Diff to routine stool culture For Rule out C. Diff 1x 2023 Active 2023 Once daily Other False Butrans 5 mcg/hour transdermal patch 1 patch Transdermal Every 7 Days For Pain 1 patch 2023 Active 2023 61854 25214 4 Every week Transd ermal False Pantoprazol e 40 mg tablet,nu yed release [generic] 40 mg By Mouth Twice daily For gerd 40 mg 2023 Active 2023 27162 70215 0 Twice daily By Mouth False Scopolamine 1 mg over 3 days transdermal patch [generic] 1 Transdermal Every 72 hours For nausea 1 11/21 Active 2023 52611 41456 4 Every 72 hours Transd ermal False Ondansetron 4 mg disintegrat ing tablet [generic] 11/14 Inactiv e 2023 35389 15170 4 Ondansetron 4 mg disintegrat ing tablet [generic] 4 mg By Mouth Every 8 hours For Nausea 4 mg 2023 Active 2023 20231 95669 4 Every 8 hours By Mouth False Miralax 17 gram oral powder packet 8.5 g (1/2 capful) By Mouth Once daily For constipation 8.5 g 11/18 Inactiv e 2023 06140 62954 6 Once daily By Mouth False Pioglitazon e 15 mg tablet [generic] 11/14 Inactiv e 2023 79738 29513 1 E11.9 Pioglitazon e 15 mg tablet [generic] 7.5mg ( half a tab) By Mouth Once daily For TYPE 2 DIABETES MELLITUS WITHOUT COMPLICATIONS 7.5mg 2023 Active 2023 33467 37482 1 Once daily By Mouth E11.9 False Problems Code Description Start Date End [...] weight Temperature SpO2 Blood Sugar Pulse Respirations 46223 5 75.00 mm[Hg] - Sitting 140.00 mm[Hg] - Sitting 65 NI 98.00 Tympanic 95.00 % 102.00 /min 18.00/min 918 05992 9 86563 2 75.00 mm[Hg] - Sitting 140.00 mm[Hg] - Sitting 98.00 Tympanic 102.00 /min 18.00/min 57880 918 43168 3 99459 918 18363 1 72.00 mm[Hg] - Sitting 138.00 mm[Hg] - Sitting 98.40 Tympanic 56276 918 86831 4 88.00/ min 18.00/min 14485 919 96568 4 71.00 mm[Hg] - Sitting 115.00 mm[Hg] - Sitting 98.30 Tympanic 97.00 % 86.00/ min 16.00/min 37816 919 03474 0 71.00 mm[Hg] - Sitting 115.00 mm[Hg] - Sitting 98.30 Tympanic 86.00/ min 16.00/min 25962 919 87841 7 71.00 mm[Hg] - Sitting 115.00 mm[Hg] - Sitting 98.30 Tympanic 86.00/ min 16.00/min 15749 920 25549 6 72.00 mm[Hg] - Sitting 112.00 mm[Hg] - Sitting 98.10 Tympanic 82.00/ min 18.00/min 45286 920 80454 0 75.00 mm[Hg] - Sitting 130.00 mm[Hg] - Sitting 98.40 Forehead Scan 93.00 % 88.00/ min 18.00/min 26928 920 74272 2 75.00 mm[Hg] - Lying Down 130.00 mm[Hg] - Lying Down 98.40 Tympanic 88.00/ min 18.00/min 58828 920 46215 5 75.00 mm[Hg] - Lying Down 130.00 mm[Hg] - Lying Down 98.40 Tympanic 88.00/ min 18.00/min 61515 920 79063 6 199.00 NI 07038 920 20761 3 75.00 mm[Hg] - Sitting 130.00 mm[Hg] - Sitting 98.40 Tympanic 88.00/ min 18.00/min 29499 921 47407 1 71.00 mm[Hg] - Lying Down 119.00 mm[Hg] - Lying Down 98.40 Forehead Scan 96.00 % 83.00/ min 16.00/min 72796 922 52331 6 71.00 mm[Hg] - Lying Down 128.00 mm[Hg] - Lying Down 98.30 Forehead Scan 94.00 % 84.00/ min 18.00/min 75549 923 18123 4 63.00 mm[Hg] - Sitting 105.00 mm[Hg] - Sitting 98.20 Tympanic 93.00 % 93.00/ min 18.00/min 05505 924 79229 8 66.00 mm[Hg] - Sitting 104.00 mm[Hg] - Sitting 98.20 Tympanic 98.00 % 84.00/ min 16.00/min 11195 925 21931 2 131.00 mg/dL 20390 925 97122 6 138.00 mg/dL
--- OUTSIDE RECORDS SUMMARY | 2023-12-13 23:57 | External Medical Summary | Continuity Of Care Document ---
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 unit/0.1 mL intradermal injection solution [Tuberculin PPD] 0.1mL Intradermal 1 time For PPD 2nd Step Give 2nd Step PPD Day 1 and Read results Day 3 (schedule 7 days after 1st READ) 0.1mL 11/13 Inactiv e 2023 68921 18248 0 1 time Intrad ermal False DISCONTINUE as of 11/14/2023: Tubersol 5 tub. unit/0.1 mL intradermal injection solution [Tuberculin PPD] 11/13 Inactiv e 2023 49175 09899 0 Tubersol 5 tub. unit/0.1 mL intradermal injection solution 0.1 mL Intradermal 1 time For PPD Step 1 GIVE on Day 1 and read results Day 3 0.1 mL 11/16 Inactiv e 2023 61303 67257 1 1 time Intrad ermal False DISCONTINUE as of 11/14/2023: Tubersol 5 tub. unit/0.1 mL intradermal injection solution [Tuberculin PPD] 11/13 Inactiv e 2023 67908 12160 0 Tubersol 5 tub. unit/0.1 mL intradermal injection solution 0.1mL Intradermal 1 time For PPD 2nd Step Give 2nd Step PPD Day 1 and Read results Day 3 (schedule 7 days after 1st READ) 0.1mL 11/25 Active 2023 81176 52338 1 1 time Intrad ermal False Tylenol 325 mg tablet 2 tabs By Mouth Every 4 hours as needed For Pain DO NOT EXCEED 3000 MG APAP/24 Hours 2 tabs 202300 /0000 Active 2023 11387 91248 0 Every 4 hours as needed By Mouth False Tylenol 325 mg tablet 2 tabs By Mouth Every 4 hours as needed For Fever >100 DO NOT EXCEED 3000 MG APAP/24 Hours 2 tabs 202300 /0000 Active 2023 63758 25895 0 Every 4 hours as needed By Mouth False Dulcolax (bisacodyl) 10 mg rectal suppository One Suppository per rectum PRN if Milk of Magnisia ineffective. Give on day 5 of no BM 1 sup 2023 Active 2023 39860 42624 1 Daily as needed Rectal False Fleet Enema 19 gram-7 gram/118 mL Administer per rectum PRN one time if dulcolax suppository not effective. Give on day 6 of no BM 1 202300 0000 Active 2023 29271 44486 6 Daily as needed Rectal False Dextrose 50 % in water (D50W) intravenous solution [generic] Dextrose 50% reyes 20-50 ml (slow push) Intravenous if Glucagon not effective after 15 minutes. CALL 911 for ED Evaluation. 50% reyes 202300 /0000 Active 2023 32132 35200 9 Intrav enous False Glucagon (HCl) Emergency Kit 1 mg solution for injection Administer Glucagon 1 mg Intramuscular if 15 minutes after GLucose Gel is administered Glucose remains less than 70 1 mg 2023 Active 2023 53961 50395 2 Intram uscula r False Glucose Gel 40 % oral gel [Dextrose] PRN If resident is unable to swallow (with or without symptoms) and Glucose results less than 70 give GLucose 40% Gel 1 tube orally - Recheck Glucose 15 minutes after administratio n. 1 tube 2023 Active 2023 37370 02364 8 By Mouth False Lorazepam 0.5 mg tablet [generic] 0.5 mg By Mouth Every 8 hours as needed For Anxiety 0.5 mg 11/18 Inactiv e 2023 95889 53285 0 Every 8 hours as needed By Mouth False Potassium chloride ER 20 mEq tablet,exte nded release [generic] 40 meq By Mouth Once daily For Hypokalemia 40 meq 11/13 Inactiv e 2023 55779 91280 1 Once daily By Mouth False Colesevelam 625 mg tablet [generic] 1250 mg By Mouth Twice daily For TYPE 2 DIABETES MELLITUS WITHOUT COMPLICATIONS 1250 mg 11/19 Inactiv e 2023 08928 25902 1 Twice daily By Mouth E11.9 False Pioglitazon e 15 mg tablet [generic] 15 mg By Mouth Once daily For TYPE 2 DIABETES MELLITUS WITHOUT COMPLICATIONS 15 mg 11/14 Inactiv e 2023 57751 60157 1 Once daily By Mouth E11.9 False Cholecalcif hardeep (vitamin D3) 50 mcg (2,000 unit) tablet [generic] 50 mcg By Mouth Once daily For Supplement 50 mcg 2023 Active 2023 59543 50753 1 Once daily By Mouth False Colchicine 0.6 mg tablet [generic] 0.6 mg By Mouth Twice daily As Needed For Gout 0.6 mg 2023 Active 2023 87391 70459 4 Twice daily By Mouth False Levothyroxi ne 200 mcg tablet [generic] 200 mcg By Mouth Once daily For Hypothyroidis m 200 mcg 202300 0000 Active 2023 61722 15604 0 Once daily By Mouth False Ondansetron 4 mg disintegrat ing tablet [generic] 4 mg By Mouth Every 6 hours as needed For Nausea 4 mg 11/12 Inactiv e 2023 28164 92394 4 Every 6 hours as needed By Mouth False Docusate sodium 100 mg capsule [generic] 100 mg By Mouth Twice daily For Constipation 100 mg 202300 0000 Active 2023 57099 10592 1 Twice daily By Mouth False Oxycodone 5 mg tablet [generic] 5 mg By Mouth Every 6 hours as needed For Pain 5 mg 11/12 Inactiv e 2023 32756 67117 1 Every 6 hours as needed By Mouth False Oxycodone 5 mg tablet [generic] 5 mg By Mouth Every 6 hours as needed For Pain 5 mg 11/18 Inactiv e 2023 48327 92547 1 Every 6 hours as needed By Mouth False Milk of Magnesia 400 mg/5 mL oral suspension 30 ml By Mouth one time per day as needed if no BM x 3 days For Constipation 30 ml 202300 Active 2023 95891 69165 2 By Mouth False Ondansetron 4 mg disintegrat ing tablet [generic] 11/12 Inactiv e 2023 74428 74302 4 Ondansetron 4 mg disintegrat ing tablet [generic] 4 mg By Mouth Every 6 hours as needed For Nausea 4 mg 11/14 Inactiv e 2023 25169 33700 4 Every 6 hours as needed By Mouth False Potassium chloride ER 10 mEq capsule,ext ended release [generic] 40 mEq By Mouth Once daily For hypokalemia 40 mEq 11/17 Inactiv e 2023 34595 05106 1 Once daily By Mouth False Potassium chloride ER 10 mEq capsule,ext ended release [generic] 4 capsules By Mouth At bedtime For hypokalemia 4 capsule s 11/16 Inactiv e 2023 29991 83947 1 At bedtime By Mouth False Flomax 0.4 mg capsule 0.4 mg By Mouth At bedtime For Urinary retention 0.4 mg 11/18 Inactiv e 2023 13257 48363 1 At bedtime By Mouth False STOOL CULTURE Once daily Obtain stool culture, add C. Diff to routine stool culture For Rule out C. Diff 1x 2023 Active 2023 Once daily Other False Butrans 5 mcg/hour transdermal patch 1 patch Transdermal Every 7 Days For Pain 1 patch 2023 Active 2023 27626 78883 4 Every week Transd ermal False Pantoprazol e 40 mg tablet,nu yed release [generic] 40 mg By Mouth Twice daily For gerd 40 mg 2023 Active 2023 60258 29243 0 Twice daily By Mouth False Scopolamine 1 mg over 3 days transdermal patch [generic] 1 Transdermal Every 72 hours For nausea 1 11/20 Inactiv e 2023 16427 57260 4 Every 72 hours Transd ermal False Ondansetron 4 mg disintegrat ing tablet [generic] 11/14 Inactiv e 2023 54534 35581 4 Ondansetron 4 mg disintegrat ing tablet [generic] 4 mg By Mouth Every 8 hours For Nausea 4 mg 2023 Active 2023 02871 31457 4 Every 8 hours By Mouth False Miralax 17 gram oral powder packet 8.5 g (1/2 capful) By Mouth Once daily For constipation 8.5 g 11/18 Inactiv e 2023 25302 47852 6 Once daily By Mouth False Pioglitazon e 15 mg tablet [generic] 11/14 Inactiv e 2023 12936 55063 1 E11.9 Pioglitazon e 15 mg tablet [generic] 7.5mg ( half a tab) By Mouth Once daily For TYPE 2 DIABETES MELLITUS WITHOUT COMPLICATIONS 7.5mg 2023 Active 2023 26091 34349 1 Once daily By Mouth E11.9 False Mylanta Coat-Cool 1,200 mg-270 mg-80 mg/10 mL oral suspension 10 ml By Mouth Every 8 hours As Needed For heartburn, indigestion, gas 10 ml 2023 Active 2023 49483 66133 1 Every 8 hours By Mouth False Prochlorper azine maleate 5 mg tablet [generic] 5 mg By Mouth Every 8 hours as needed For Nausea 5 mg 2023 Active 2023 51391 09274 1 Every 8 hours as needed By Mouth False Potassium chloride ER 10 mEq capsule,ext ended release [generic] 10 meq By Mouth 4 times a day For Hypokalemia 10 meq 11/20 Inactiv e 2023 72390 16118 1 4 times a day By Mouth False Lorazepam 0.5 mg tablet [generic] 11/18 Inactiv e 2023 79222 94460 0 Lorazepam 0.5 mg tablet [generic] 0.5 mg By Mouth Every 8 hours as needed For Anxiety 0.5 mg 12/18 Active 2023 97451 04594 0 Every 8 hours as needed By Mouth False Flomax 0.4 mg capsule 11/18 Inactiv e 2023 92270 93893 1 Flomax 0.4 mg capsule 0.4 mg By Mouth Once daily For Urinary retention 0.4 mg 11/19 Inactiv e 2023 79610 09632 1 Once daily By Mouth False Oxycodone 5 mg tablet [generic] 11/18 Inactiv e 2023 50861 76665 1 Oxycodone 5 mg tablet [generic] 5 mg By Mouth Every 6 hours as needed For Back Pain 5 mg 2023 Active 2023 98821 04767 1 Every 6 hours as needed By Mouth False Cipro 250 mg tablet 250 mg By Mouth Twice daily For UTI 250 mg 11/19 Inactiv e 2023 80778 26355 1 Twice daily By Mouth False Senna 8.6 mg tablet 17.2 mg By Mouth Twice daily For Constipation 17.2 mg 2023 Active 2023 38717 48980 1 Twice daily By Mouth False Zyprexa 2.5 mg tablet 2.5 mg By Mouth At bedtime For persistent nausea 2.5 mg 2023 Active 2023 36465 09580 0 At bedtime By Mouth False MAGNESSIUM GLUCONATE 500mg By Mouth Every morning For Supplement 500mg 2023 Active 2023 Every morning By Mouth False Cipro 250 mg tablet 11/19 Inactiv e 2023 40816 62154 1 Cipro 250 mg tablet 250 mg By Mouth Twice daily For UTI 250 mg 11/26 Active 2023 85535 96303 1 Twice daily By Mouth False Flomax 0.4 mg capsule 11/19 Inactiv e 2023 95131 99753 1 Flomax 0.4 mg capsule 0.4 mg By Mouth Once daily For Urinary retention 0.4 mg 11/20 Inactiv e 2023 29849 27075 1 Once daily By Mouth False Motrin IB 200 mg tablet 600 mg By Mouth Every 12 hours As Needed For Pain 600 mg 11/20 Inactiv e 2023 28081 62633 2 Every 12 hours By Mouth False Motrin IB 200 mg tablet 600 mg By Mouth Every 12 hours As Needed For Pain 600 mg 11/20 Inactiv e 2023 98651 93421 2 Every 12 hours By Mouth False Motrin IB 200 mg tablet 600 mg By Mouth Every 12 hours As Needed For Pain 600 mg 11/27 Active 2023 55266 55437 2 Every 12 hours By Mouth False Flomax 0.4 mg capsule 0.4 mg By Mouth Once daily For Urinary retention 0.4 mg 2023 Active 2023 48235 30609 1 Once daily By Mouth False Scopolamine 1 mg over 3 days transdermal patch [generic] 1 Transdermal Every 72 hours For nausea 1 11/22 Active 2023 45909 79562 4 Every 72 hours Transd ermal False [...] weight Temperature SpO2 Blood Sugar Pulse Respirations 65942 918 28328 5 75.00 mm[Hg] - Sitting 140.00 mm[Hg] - Sitting 65 NI 98.00 Tympanic 95.00 % 102.00 /min 18.00/min 40927 918 60754 9 20238 918 63610 2 75.00 mm[Hg] - Sitting 140.00 mm[Hg] - Sitting 98.00 Tympanic 102.00 /min 18.00/min 50373 918 07925 3 79704 918 23806 1 72.00 mm[Hg] - Sitting 138.00 mm[Hg] - Sitting 98.40 Tympanic 91651 918 05915 4 88.00/ min 18.00/min 64603 919 05011 4 71.00 mm[Hg] - Sitting 115.00 mm[Hg] - Sitting 98.30 Tympanic 97.00 % 86.00/ min 16.00/min 02654 919 40560 0 71.00 mm[Hg] - Sitting 115.00 mm[Hg] - Sitting 98.30 Tympanic 86.00/ min 16.00/min 31443 919 43897 7 71.00 mm[Hg] - Sitting 115.00 mm[Hg] - Sitting 98.30 Tympanic 86.00/ min 16.00/min 89947 920 23251 6 72.00 mm[Hg] - Sitting 112.00 mm[Hg] - Sitting 98.10 Tympanic 82.00/ min 18.00/min 01712 920 05932 0 75.00 mm[Hg] - Sitting 130.00 mm[Hg] - Sitting 98.40 Forehead Scan 93.00 % 88.00/ min 18.00/min 03316 920 58513 2 75.00 mm[Hg] - Lying Down 130.00 mm[Hg] - Lying Down 98.40 Tympanic 88.00/ min 18.00/min 41026 920 99643 5 75.00 mm[Hg] - Lying Down 130.00 mm[Hg] - Lying Down 98.40 Tympanic 88.00/ min 18.00/min 60266 920 69530 6 199.00 NI [address] 920 15293 3 75.00 mm[Hg] - Sitting 130.00 mm[Hg] - Sitting 98.40 Tympanic 88.00/ min 18.00/min 06401 921 47086 1 71.00 mm[Hg] - Lying Down 119.00 mm[Hg] - Lying Down 98.40 Forehead Scan 96.00 % 83.00/ min 16.00/min 74195 922 65474 6 71.00 mm[Hg] - Lying Down 128.00 mm[Hg] - Lying Down 98.30 Forehead Scan 94.00 % 84.00/ min 18.00/min 39108 923 26835 4 63.00 mm[Hg] - Sitting 105.00 mm[Hg] - Sitting 98.20 Tympanic 93.00 % 93.00/ min 18.00/min 32353 924 92951 8 66.00 mm[Hg] - Sitting 104.00 mm[Hg] - Sitting 98.20 Tympanic 98.00 % 84.00/ min 16.00/min 71065 925 26249 2 131.00 mg/dL 34102 925 21951 6 138.00 mg/dL 69330 926 45192 1 199.00 NI
--- OUTSIDE RECORDS SUMMARY | 2023-12-13 23:57 | External Medical Summary | Continuity Of Care Document ---
Author Name Unknown Address [address] [place] [address] Organization [facility] [place] () Care Team Providers Care Transportation Assistant Name Role Phone DO Parson Amy Primary Care Provider [phone] Allergies Allergy Reaction Start Date End Date [...] 3 0.1 mL 11/13 Inactiv e 2023 75044 99794 0 1 time Intrad ermal False Tubersol 5 tub. unit/0.1 mL intradermal injection solution [Tuberculin PPD] 0.1mL Intradermal 1 time For PPD 2nd Step Give 2nd Step PPD Day 1 and Read results Day 3 (schedule 7 days after 1st READ) 0.1mL 11/13 Inactiv e 2023 12157 94505 0 1 time Intrad ermal False DISCONTINUE as of 11/14/2023: Tubersol 5 tub. unit/0.1 mL intradermal injection solution [Tuberculin PPD] 11/13 Inactiv e 2023 82282 35547 0 Tubersol 5 tub. unit/0.1 mL intradermal injection solution 0.1 mL Intradermal 1 time For PPD Step 1 GIVE on Day 1 and read results Day 3 0.1 mL 11/16 Inactiv e 2023 67624 03691 1 1 time Intrad ermal False DISCONTINUE as of 11/14/2023: Tubersol 5 tub. unit/0.1 mL intradermal injection solution [Tuberculin PPD] 11/13 Inactiv e 2023 46624 26073 0 Tubersol 5 tub. unit/0.1 mL intradermal injection solution 0.1mL Intradermal 1 time For PPD 2nd Step Give 2nd Step PPD Day 1 and Read results Day 3 (schedule 7 days after 1st READ) 0.1mL 11/25 Active 2023 05054 01067 1 1 time Intrad ermal False Tylenol 325 mg tablet 2 tabs By Mouth Every 4 hours as needed For Pain DO NOT EXCEED 3000 MG APAP/24 Hours 2 tabs 202300 /0000 Active 2023 81165 96492 0 Every 4 hours as needed By Mouth False Tylenol 325 mg tablet 2 tabs By Mouth Every 4 hours as needed For Fever >100 DO NOT EXCEED 3000 MG APAP/24 Hours 2 tabs 202300 /0000 Active 2023 33742 48145 0 Every 4 hours as needed By Mouth False Dulcolax (bisacodyl) 10 mg rectal suppository One Suppository per rectum PRN if Milk of Magnisia ineffective. Give on day 5 of no BM 1 sup 2023 Active 2023 10321 48867 1 Daily as needed Rectal False Fleet Enema 19 gram-7 gram/118 mL Administer per rectum PRN one time if dulcolax suppository not effective. Give on day 6 of no BM 1 202300 0000 Active 2023 83925 69949 6 Daily as needed Rectal False Dextrose 50 % in water (D50W) intravenous solution [generic] Dextrose 50% reyes 20-50 ml (slow push) Intravenous if Glucagon not effective after 15 minutes. CALL 911 for ED Evaluation. 50% reyes 202300 /0000 Active 2023 05158 40143 9 Intrav enous False Glucagon (HCl) Emergency Kit 1 mg solution for injection Administer Glucagon 1 mg Intramuscular if 15 minutes after GLucose Gel is administered Glucose remains less than 70 1 mg 2023 Active 2023 84793 40632 2 Intram uscula r False Glucose Gel 40 % oral gel [Dextrose] PRN If resident is unable to swallow (with or without symptoms) and Glucose results less than 70 give GLucose 40% Gel 1 tube orally - Recheck Glucose 15 minutes after administratio n. 1 tube 2023 Active 2023 38039 37963 8 By Mouth False Lorazepam 0.5 mg tablet [generic] 0.5 mg By Mouth Every 8 hours as needed For Anxiety 0.5 mg 11/18 Inactiv e 2023 66565 10638 0 Every 8 hours as needed By Mouth False Potassium chloride ER 20 mEq tablet,exte nded release [generic] 40 meq By Mouth Once daily For Hypokalemia 40 meq 11/13 Inactiv e 2023 30603 93140 1 Once daily By Mouth False Colesevelam 625 mg tablet [generic] 1250 mg By Mouth Twice daily For TYPE 2 DIABETES MELLITUS WITHOUT COMPLICATIONS 1250 mg 11/19 Inactiv e 2023 37396 17982 1 Twice daily By Mouth E11.9 False Pioglitazon e 15 mg tablet [generic] 15 mg By Mouth Once daily For TYPE 2 DIABETES MELLITUS WITHOUT COMPLICATIONS 15 mg 11/14 Inactiv e 2023 47988 10781 1 Once daily By Mouth E11.9 False Cholecalcif hardeep (vitamin D3) 50 mcg (2,000 unit) tablet [generic] 50 mcg By Mouth Once daily For Supplement 50 mcg 2023 Active 2023 62637 22218 1 Once daily By Mouth False Colchicine 0.6 mg tablet [generic] 0.6 mg By Mouth Twice daily As Needed For Gout 0.6 mg 2023 Active 2023 15279 43908 4 Twice daily By Mouth False Levothyroxi ne 200 mcg tablet [generic] 200 mcg By Mouth Once daily For Hypothyroidis m 200 mcg 202300 0000 Active 2023 21327 33113 0 Once daily By Mouth False Ondansetron 4 mg disintegrat ing tablet [generic] 4 mg By Mouth Every 6 hours as needed For Nausea 4 mg 11/12 Inactiv e 2023 66605 90807 4 Every 6 hours as needed By Mouth False Docusate sodium 100 mg capsule [generic] 100 mg By Mouth Twice daily For Constipation 100 mg 202300 0000 Active 2023 70707 93847 1 Twice daily By Mouth False Oxycodone 5 mg tablet [generic] 5 mg By Mouth Every 6 hours as needed For Pain 5 mg 11/12 Inactiv e 2023 00317 15844 1 Every 6 hours as needed By Mouth False Oxycodone 5 mg tablet [generic] 5 mg By Mouth Every 6 hours as needed For Pain 5 mg 11/18 Inactiv e 2023 22523 49386 1 Every 6 hours as needed By Mouth False Milk of Magnesia 400 mg/5 mL oral suspension 30 ml By Mouth one time per day as needed if no BM x 3 days For Constipation 30 ml 202300 Active 2023 49975 76331 2 By Mouth False Ondansetron 4 mg disintegrat ing tablet [generic] 11/12 Inactiv e 2023 10619 39971 4 Ondansetron 4 mg disintegrat ing tablet [generic] 4 mg By Mouth Every 6 hours as needed For Nausea 4 mg 11/14 Inactiv e 2023 86819 04169 4 Every 6 hours as needed By Mouth False Potassium chloride ER 10 mEq capsule,ext ended release [generic] 40 mEq By Mouth Once daily For hypokalemia 40 mEq 11/17 Inactiv e 2023 30009 26057 1 Once daily By Mouth False Potassium chloride ER 10 mEq capsule,ext ended release [generic] 4 capsules By Mouth At bedtime For hypokalemia 4 capsule s 11/16 Inactiv e 2023 75512 14859 1 At bedtime By Mouth False Flomax 0.4 mg capsule 0.4 mg By Mouth At bedtime For Urinary retention 0.4 mg 11/18 Inactiv e 2023 24997 43554 1 At bedtime By Mouth False STOOL CULTURE Once daily Obtain stool culture, add C. Diff to routine stool culture For Rule out C. Diff 1x 2023 Active 2023 Once daily Other False Butrans 5 mcg/hour transdermal patch 1 patch Transdermal Every 7 Days For Pain 1 patch 11/20 Inactiv e 2023 56733 32483 4 Every week Transd ermal False Pantoprazol e 40 mg tablet,nu yed release [generic] 40 mg By Mouth Twice daily For gerd 40 mg 2023 Active 2023 36406 57931 0 Twice daily By Mouth False Scopolamine 1 mg over 3 days transdermal patch [generic] 1 Transdermal Every 72 hours For nausea 1 11/20 Inactiv e 2023 57090 12197 4 Every 72 hours Transd ermal False Ondansetron 4 mg disintegrat ing tablet [generic] 11/14 Inactiv e 2023 40907 74702 4 Ondansetron 4 mg disintegrat ing tablet [generic] 4 mg By Mouth Every 8 hours For Nausea 4 mg 2023 Active 2023 42650 63368 4 Every 8 hours By Mouth False Miralax 17 gram oral powder packet 8.5 g (1/2 capful) By Mouth Once daily For constipation 8.5 g 11/18 Inactiv e 2023 86947 60717 6 Once daily By Mouth False Pioglitazon e 15 mg tablet [generic] 11/14 Inactiv e 2023 32113 30901 1 E11.9 Pioglitazon e 15 mg tablet [generic] 7.5mg ( half a tab) By Mouth Once daily For TYPE 2 DIABETES MELLITUS WITHOUT COMPLICATIONS 7.5mg 2023 Active 2023 03883 32276 1 Once daily By Mouth E11.9 False Mylanta Coat-Cool 1,200 mg-270 mg-80 mg/10 mL oral suspension 10 ml By Mouth Every 8 hours As Needed For heartburn, indigestion, gas 10 ml 2023 Active 2023 59139 04492 1 Every 8 hours By Mouth False Prochlorper azine maleate 5 mg tablet [generic] 5 mg By Mouth Every 8 hours as needed For Nausea 5 mg 2023 Active 2023 92361 75762 1 Every 8 hours as needed By Mouth False Potassium chloride ER 10 mEq capsule,ext ended release [generic] 10 meq By Mouth 4 times a day For Hypokalemia 10 meq 11/20 Inactiv e 2023 92990 80158 1 4 times a day By Mouth False Lorazepam 0.5 mg tablet [generic] 11/18 Inactiv e 2023 34469 69661 0 Lorazepam 0.5 mg tablet [generic] 0.5 mg By Mouth Every 8 hours as needed For Anxiety 0.5 mg 12/18 Active 2023 98794 52880 0 Every 8 hours as needed By Mouth False Flomax 0.4 mg capsule 11/18 Inactiv e 2023 08978 81497 1 Flomax 0.4 mg capsule 0.4 mg By Mouth Once daily For Urinary retention 0.4 mg 11/19 Inactiv e 2023 66217 58327 1 Once daily By Mouth False Oxycodone 5 mg tablet [generic] 11/18 Inactiv e 2023 40438 28928 1 Oxycodone 5 mg tablet [generic] 5 mg By Mouth Every 6 hours as needed For Back Pain 5 mg 2023 Active 2023 75640 61891 1 Every 6 hours as needed By Mouth False Cipro 250 mg tablet 250 mg By Mouth Twice daily For UTI 250 mg 11/19 Inactiv e 2023 13327 77729 1 Twice daily By Mouth False Senna 8.6 mg tablet 17.2 mg By Mouth Twice daily For Constipation 17.2 mg 2023 Active 2023 07389 81588 1 Twice daily By Mouth False Zyprexa 2.5 mg tablet 2.5 mg By Mouth At bedtime For persistent nausea 2.5 mg 2023 Active 2023 45925 89826 0 At bedtime By Mouth False MAGNESSIUM GLUCONATE 500mg By Mouth Every morning For Supplement 500mg 2023 Active 2023 Every morning By Mouth False Cipro 250 mg tablet 11/19 Inactiv e 2023 10521 46007 1 Cipro 250 mg tablet 250 mg By Mouth Twice daily For UTI 250 mg 11/26 Active 2023 25937 06345 1 Twice daily By Mouth False Flomax 0.4 mg capsule 11/19 Inactiv e 2023 63649 05788 1 Flomax 0.4 mg capsule 0.4 mg By Mouth Once daily For Urinary retention 0.4 mg 11/20 Inactiv e 2023 86405 31183 1 Once daily By Mouth False Motrin IB 200 mg tablet 600 mg By Mouth Every 12 hours As Needed For Pain 600 mg 11/20 Inactiv e 2023 55603 39499 2 Every 12 hours By Mouth False Motrin IB 200 mg tablet 600 mg By Mouth Every 12 hours As Needed For Pain 600 mg 11/20 Inactiv e 2023 63018 36639 2 Every 12 hours By Mouth False Motrin IB 200 mg tablet 600 mg By Mouth Every 12 hours As Needed For Pain 600 mg 11/27 Active 2023 67565 92724 2 Every 12 hours By Mouth False Flomax 0.4 mg capsule 0.4 mg By Mouth Once daily For Urinary retention 0.4 mg 2023 Active 2023 89865 05012 1 Once daily By Mouth False Scopolamine 1 mg over 3 days transdermal patch [generic] 1 Transdermal Every 72 hours For nausea 1 11/22 Active 2023 64540 47504 4 Every 72 hours Transd ermal False Butrans 7.5 mcg/hour transdermal patch 1 patch Transdermal Every 7 Days For Pain 1 patch 2023 Active 2023 35727 35016 4 Every week Transd ermal False Tizanidine 2 mg tablet [generic] 2mg By Mouth At bedtime For Muscle spasms 2mg 2023 Active 2023 34210 62411 0 At bedtime By Mouth False Problems [...] Temperature SpO2 Blood Sugar Pulse Respirations 8 15452 5 75.00 mm[Hg] - Sitting 140.00 mm[Hg] - Sitting 65 NI 98.00 Tympanic 95.00 % 102.00 /min 18.00/min 918 68719 9 03370 918 69812 2 75.00 mm[Hg] - Sitting 140.00 mm[Hg] - Sitting 98.00 Tympanic 102.00 /min 18.00/min 58280 918 72990 3 97127 918 37394 1 72.00 mm[Hg] - Sitting 138.00 mm[Hg] - Sitting 98.40 Tympanic 918 77612 4 88.00/ min 18.00/min 919 25720 4 71.00 mm[Hg] - Sitting 115.00 mm[Hg] - Sitting 98.30 Tympanic 97.00 % 86.00/ min 16.00/min 81462 919 40978 0 71.00 mm[Hg] - Sitting 115.00 mm[Hg] - Sitting 98.30 Tympanic 86.00/ min 16.00/min 40949 919 75628 7 71.00 mm[Hg] - Sitting 115.00 mm[Hg] - Sitting 98.30 Tympanic 86.00/ min 16.00/min 58752 920 65288 6 72.00 mm[Hg] - Sitting 112.00 mm[Hg] - Sitting 98.10 Tympanic 82.00/ min 18.00/min 13207 920 86982 0 75.00 mm[Hg] - Sitting 130.00 mm[Hg] - Sitting 98.40 Forehead Scan 93.00 % 88.00/ min 18.00/min 26941 920 93540 2 75.00 mm[Hg] - Lying Down 130.00 mm[Hg] - Lying Down 98.40 Tympanic 88.00/ min 18.00/min 80507 920 61816 5 75.00 mm[Hg] - Lying Down 130.00 mm[Hg] - Lying Down 98.40 Tympanic 88.00/ min 18.00/min 22233 920 70766 6 199.00 NI [address] 920 43665 3 75.00 mm[Hg] - Sitting 130.00 mm[Hg] - Sitting 98.40 Tympanic 88.00/ min 18.00/min 17312 921 19858 1 71.00 mm[Hg] - Lying Down 119.00 mm[Hg] - Lying Down 98.40 Forehead Scan 96.00 % 83.00/ min 16.00/min 98911 922 92778 6 71.00 mm[Hg] - Lying Down 128.00 mm[Hg] - Lying Down 98.30 Forehead Scan 94.00 % 84.00/ min 18.00/min 27380 923 78540 4 63.00 mm[Hg] - Sitting 105.00 mm[Hg] - Sitting 98.20 Tympanic 93.00 % 93.00/ min 18.00/min 30128 924 45217 8 66.00 mm[Hg] - Sitting 104.00 mm[Hg] - Sitting 98.20 Tympanic 98.00 % 84.00/ min 16.00/min 60046 925 51777 2 131.00 mg/dL 95090 925 07068 6 138.00 mg/dL 75102 926 41068 1 199.00 NI
--- OUTSIDE RECORDS SUMMARY | 2023-12-13 23:58 | External Medical Summary | Continuity Of Care Document ---
Author Name Unknown Address [address] [place] [address] Organization [facility] () Care Team Providers Care Creative Intern Name Role Phone DO Parson Amy Primary Care Provider [phone] Allergies Allergy Reaction Start Date End Date [...] 3 0.1 mL 11/13 Inactiv e 2023 55869 71286 0 1 time Intrad ermal False Tubersol 5 tub. unit/0.1 mL intradermal injection solution [Tuberculin PPD] 0.1mL Intradermal 1 time For PPD 2nd Step Give 2nd Step PPD Day 1 and Read results Day 3 (schedule 7 days after 1st READ) 0.1mL 11/13 Inactiv e 2023 41577 32906 0 1 time Intrad ermal False DISCONTINUE as of 11/14/2023: Tubersol 5 tub. unit/0.1 mL intradermal injection solution [Tuberculin PPD] 11/13 Inactiv e 2023 77738 35834 0 Tubersol 5 tub. unit/0.1 mL intradermal injection solution 0.1 mL Intradermal 1 time For PPD Step 1 GIVE on Day 1 and read results Day 3 0.1 mL 11/16 Inactiv e 2023 19136 34635 1 1 time Intrad ermal False DISCONTINUE as of 11/14/2023: Tubersol 5 tub. unit/0.1 mL intradermal injection solution [Tuberculin PPD] 11/13 Inactiv e 2023 22853 13013 0 Tubersol 5 tub. unit/0.1 mL intradermal injection solution 0.1mL Intradermal 1 time For PPD 2nd Step Give 2nd Step PPD Day 1 and Read results Day 3 (schedule 7 days after 1st READ) 0.1mL 11/25 Active 2023 37363 97371 1 1 time Intrad ermal False Tylenol 325 mg tablet 2 tabs By Mouth Every 4 hours as needed For Pain DO NOT EXCEED 3000 MG APAP/24 Hours 2 tabs 202300 /0000 Active 2023 15179 78841 0 Every 4 hours as needed By Mouth False Tylenol 325 mg tablet 2 tabs By Mouth Every 4 hours as needed For Fever >100 DO NOT EXCEED 3000 MG APAP/24 Hours 2 tabs 202300 /0000 Active 2023 47282 78306 0 Every 4 hours as needed By Mouth False Dulcolax (bisacodyl) 10 mg rectal suppository One Suppository per rectum PRN if Milk of Magnisia ineffective. Give on day 5 of no BM 1 sup 2023 Active 2023 40801 73517 1 Daily as needed Rectal False Fleet Enema 19 gram-7 gram/118 mL Administer per rectum PRN one time if dulcolax suppository not effective. Give on day 6 of no BM 1 202300 0000 Active 2023 77728 10015 6 Daily as needed Rectal False Dextrose 50 % in water (D50W) intravenous solution [generic] Dextrose 50% reyes 20-50 ml (slow push) Intravenous if Glucagon not effective after 15 minutes. CALL 911 for ED Evaluation. 50% reyes 202300 /0000 Active 2023 00551 05154 9 Intrav enous False Glucagon (HCl) Emergency Kit 1 mg solution for injection Administer Glucagon 1 mg Intramuscular if 15 minutes after GLucose Gel is administered Glucose remains less than 70 1 mg 2023 Active 2023 60387 81211 2 Intram uscula r False Glucose Gel 40 % oral gel [Dextrose] PRN If resident is unable to swallow (with or without symptoms) and Glucose results less than 70 give GLucose 40% Gel 1 tube orally - Recheck Glucose 15 minutes after administratio n. 1 tube 2023 Active 2023 01827 10734 8 By Mouth False Lorazepam 0.5 mg tablet [generic] 0.5 mg By Mouth Every 8 hours as needed For Anxiety 0.5 mg 11/18 Inactiv e 2023 48240 73923 0 Every 8 hours as needed By Mouth False Potassium chloride ER 20 mEq tablet,exte nded release [generic] 40 meq By Mouth Once daily For Hypokalemia 40 meq 11/13 Inactiv e 2023 21864 49050 1 Once daily By Mouth False Colesevelam 625 mg tablet [generic] 1250 mg By Mouth Twice daily For TYPE 2 DIABETES MELLITUS WITHOUT COMPLICATIONS 1250 mg 11/19 Inactiv e 2023 47333 69556 1 Twice daily By Mouth E11.9 False Pioglitazon e 15 mg tablet [generic] 15 mg By Mouth Once daily For TYPE 2 DIABETES MELLITUS WITHOUT COMPLICATIONS 15 mg 11/14 Inactiv e 2023 54580 13084 1 Once daily By Mouth E11.9 False Cholecalcif hardeep (vitamin D3) 50 mcg (2,000 unit) tablet [generic] 50 mcg By Mouth Once daily For Supplement 50 mcg 2023 Active 2023 70854 43085 1 Once daily By Mouth False Colchicine 0.6 mg tablet [generic] 0.6 mg By Mouth Twice daily As Needed For Gout 0.6 mg 2023 Active 2023 46713 99267 4 Twice daily By Mouth False Levothyroxi ne 200 mcg tablet [generic] 200 mcg By Mouth Once daily For Hypothyroidis m 200 mcg 202300 0000 Active 2023 65482 69493 0 Once daily By Mouth False Ondansetron 4 mg disintegrat ing tablet [generic] 4 mg By Mouth Every 6 hours as needed For Nausea 4 mg 11/12 Inactiv e 2023 69102 91778 4 Every 6 hours as needed By Mouth False Docusate sodium 100 mg capsule [generic] 100 mg By Mouth Twice daily For Constipation 100 mg 202300 0000 Active 2023 51741 10244 1 Twice daily By Mouth False Oxycodone 5 mg tablet [generic] 5 mg By Mouth Every 6 hours as needed For Pain 5 mg 11/12 Inactiv e 2023 94041 02908 1 Every 6 hours as needed By Mouth False Oxycodone 5 mg tablet [generic] 5 mg By Mouth Every 6 hours as needed For Pain 5 mg 11/18 Inactiv e 2023 25192 67575 1 Every 6 hours as needed By Mouth False Milk of Magnesia 400 mg/5 mL oral suspension 30 ml By Mouth one time per day as needed if no BM x 3 days For Constipation 30 ml 202300 Active 2023 13759 53852 2 By Mouth False Ondansetron 4 mg disintegrat ing tablet [generic] 11/12 Inactiv e 2023 65055 89814 4 Ondansetron 4 mg disintegrat ing tablet [generic] 4 mg By Mouth Every 6 hours as needed For Nausea 4 mg 11/14 Inactiv e 2023 84971 74763 4 Every 6 hours as needed By Mouth False Potassium chloride ER 10 mEq capsule,ext ended release [generic] 40 mEq By Mouth Once daily For hypokalemia 40 mEq 11/17 Inactiv e 2023 71275 29143 1 Once daily By Mouth False Potassium chloride ER 10 mEq capsule,ext ended release [generic] 4 capsules By Mouth At bedtime For hypokalemia 4 capsule s 11/16 Inactiv e 2023 12492 15990 1 At bedtime By Mouth False Flomax 0.4 mg capsule 0.4 mg By Mouth At bedtime For Urinary retention 0.4 mg 11/18 Inactiv e 2023 83007 75685 1 At bedtime By Mouth False STOOL CULTURE Once daily Obtain stool culture, add C. Diff to routine stool culture For Rule out C. Diff 1x 2023 Active 2023 Once daily Other False Butrans 5 mcg/hour transdermal patch 1 patch Transdermal Every 7 Days For Pain 1 patch 2023 Active 2023 24868 64579 4 Every week Transd ermal False Pantoprazol e 40 mg tablet,nu yed release [generic] 40 mg By Mouth Twice daily For gerd 40 mg 2023 Active 2023 28630 85577 0 Twice daily By Mouth False Scopolamine 1 mg over 3 days transdermal patch [generic] 1 Transdermal Every 72 hours For nausea 1 11/21 Active 2023 52611 39304 4 Every 72 hours Transd ermal False Ondansetron 4 mg disintegrat ing tablet [generic] 11/14 Inactiv e 2023 59205 38731 4 Ondansetron 4 mg disintegrat ing tablet [generic] 4 mg By Mouth Every 8 hours For Nausea 4 mg 2023 Active 2023 16084 20296 4 Every 8 hours By Mouth False Miralax 17 gram oral powder packet 8.5 g (1/2 capful) By Mouth Once daily For constipation 8.5 g 11/18 Inactiv e 2023 13410 78480 6 Once daily By Mouth False Pioglitazon e 15 mg tablet [generic] 11/14 Inactiv e 2023 59051 17396 1 E11.9 Pioglitazon e 15 mg tablet [generic] 7.5mg ( half a tab) By Mouth Once daily For TYPE 2 DIABETES MELLITUS WITHOUT COMPLICATIONS 7.5mg 2023 Active 2023 03808 19026 1 Once daily By Mouth E11.9 False Mylanta Coat-Cool 1,200 mg-270 mg-80 mg/10 mL oral suspension 10 ml By Mouth Every 8 hours As Needed For heartburn, indigestion, gas 10 ml 2023 Active 2023 00963 63542 1 Every 8 hours By Mouth False Prochlorper azine maleate 5 mg tablet [generic] 5 mg By Mouth Every 8 hours as needed For Nausea 5 mg 2023 Active 2023 92517 73235 1 Every 8 hours as needed By Mouth False Potassium chloride ER 10 mEq capsule,ext ended release [generic] 10 meq By Mouth 4 times a day For Hypokalemia 10 meq 2023 Active 2023 77788 78557 1 4 times a day By Mouth False Lorazepam 0.5 mg tablet [generic] 11/18 Inactiv e 2023 22917 66267 0 Lorazepam 0.5 mg tablet [generic] 0.5 mg By Mouth Every 8 hours as needed For Anxiety 0.5 mg 12/18 Active 2023 94151 39005 0 Every 8 hours as needed By Mouth False Flomax 0.4 mg capsule 11/18 Inactiv e 2023 57288 55908 1 Flomax 0.4 mg capsule 0.4 mg By Mouth Once daily For Urinary retention 0.4 mg 2023 Active 2023 85059 49206 1 Once daily By Mouth False Oxycodone 5 mg tablet [generic] 11/18 Inactiv e 2023 84087 26281 1 Oxycodone 5 mg tablet [generic] 5 mg By Mouth Every 6 hours as needed For Back Pain 5 mg 2023 Active 2023 27580 03318 1 Every 6 hours as needed By Mouth False Cipro 250 mg tablet 250 mg By Mouth Twice daily For UTI 250 mg 2023 Active 2023 61680 64614 1 Twice daily By Mouth False Senna 8.6 mg tablet 17.2 mg By Mouth Twice daily For Constipation 17.2 mg 2023 Active 2023 34975 80512 1 Twice daily By Mouth False Zyprexa 2.5 mg tablet 2.5 mg By Mouth At bedtime For persistent nausea 2.5 mg 2023 Active 20232 03439 0 At bedtime By Mouth False MAGNESSIUM [...] weight Temperature SpO2 Blood Sugar Pulse Respirations 49241 5 75.00 mm[Hg] - Sitting 140.00 mm[Hg] - Sitting 65 NI 98.00 Tympanic 95.00 % 102.00 /min 18.00/min 918 51302 9 49192 918 00891 2 75.00 mm[Hg] - Sitting 140.00 mm[Hg] - Sitting 98.00 Tympanic 102.00 /min 18.00/min 918 30748 3 52466 918 32484 1 72.00 mm[Hg] - Sitting 138.00 mm[Hg] - Sitting 98.40 Tympanic 918 92249 4 88.00/ min 18.00/min 919 36776 4 71.00 mm[Hg] - Sitting 115.00 mm[Hg] - Sitting 98.30 Tympanic 97.00 % 86.00/ min 16.00/min 919 39916 0 71.00 mm[Hg] - Sitting 115.00 mm[Hg] - Sitting 98.30 Tympanic 86.00/ min 16.00/min 33963 919 62163 7 71.00 mm[Hg] - Sitting 115.00 mm[Hg] - Sitting 98.30 Tympanic 86.00/ min 16.00/min 920 13761 6 72.00 mm[Hg] - Sitting 112.00 mm[Hg] - Sitting 98.10 Tympanic 82.00/ min 18.00/min 07052 920 63228 0 75.00 mm[Hg] - Sitting 130.00 mm[Hg] - Sitting 98.40 Forehead Scan 93.00 % 88.00/ min 18.00/min 53997 920 40251 2 75.00 mm[Hg] - Lying Down 130.00 mm[Hg] - Lying Down 98.40 Tympanic 88.00/ min 18.00/min 24449 920 69296 5 75.00 mm[Hg] - Lying Down 130.00 mm[Hg] - Lying Down 98.40 Tympanic 88.00/ min 18.00/min 920 99116 6 199.00 NI 19561 920 14949 3 75.00 mm[Hg] - Sitting 130.00 mm[Hg] - Sitting 98.40 Tympanic 88.00/ min 18.00/min 65028 921 82795 1 71.00 mm[Hg] - Lying Down 119.00 mm[Hg] - Lying Down 98.40 Forehead Scan 96.00 % 83.00/ min 16.00/min 26856 922 54618 6 71.00 mm[Hg] - Lying Down 128.00 mm[Hg] - Lying Down 98.30 Forehead Scan 94.00 % 84.00/ min 18.00/min 923 38853 4 63.00 mm[Hg] - Sitting 105.00 mm[Hg] - Sitting 98.20 Tympanic 93.00 % 93.00/ min 18.00/min 924 51349 8 66.00 mm[Hg] - Sitting 104.00 mm[Hg] - Sitting 98.20 Tympanic 98.00 % 84.00/ min 16.00/min 925 58007 2 131.00 mg/dL
--- OUTSIDE RECORDS SUMMARY | 2023-12-13 23:58 | External Medical Summary | Continuity Of Care Document ---
Author Name Unknown Address [address] [place] [address] Organization [facility] () Care Team Providers Care Supplies Packer Name Role Phone DO Parson Amy Primary Care Provider [phone] Allergies Allergy Reaction Start Date End Date [...] 3 0.1 mL 11/13 Inactiv e 2023 86905 90603 0 1 time Intrad ermal False Tubersol 5 tub. unit/0.1 mL intradermal injection solution [Tuberculin PPD] 0.1mL Intradermal 1 time For PPD 2nd Step Give 2nd Step PPD Day 1 and Read results Day 3 (schedule 7 days after 1st READ) 0.1mL 11/13 Inactiv e 2023 68257 62521 0 1 time Intrad ermal False DISCONTINUE as of 11/14/2023: Tubersol 5 tub. unit/0.1 mL intradermal injection solution [Tuberculin PPD] 11/13 Inactiv e 2023 93876 49467 0 Tubersol 5 tub. unit/0.1 mL intradermal injection solution 0.1 mL Intradermal 1 time For PPD Step 1 GIVE on Day 1 and read results Day 3 0.1 mL 11/16 Inactiv e 2023 71087 16563 1 1 time Intrad ermal False DISCONTINUE as of 11/14/2023: Tubersol 5 tub. unit/0.1 mL intradermal injection solution [Tuberculin PPD] 11/13 Inactiv e 2023 77194 67700 0 Tubersol 5 tub. unit/0.1 mL intradermal injection solution 0.1mL Intradermal 1 time For PPD 2nd Step Give 2nd Step PPD Day 1 and Read results Day 3 (schedule 7 days after 1st READ) 0.1mL 11/25 Active 2023 90646 41262 1 1 time Intrad ermal False Tylenol 325 mg tablet 2 tabs By Mouth Every 4 hours as needed For Pain DO NOT EXCEED 3000 MG APAP/24 Hours 2 tabs 202300 /0000 Active 2023 66991 48283 0 Every 4 hours as needed By Mouth False Tylenol 325 mg tablet 2 tabs By Mouth Every 4 hours as needed For Fever >100 DO NOT EXCEED 3000 MG APAP/24 Hours 2 tabs 202300 /0000 Active 2023 41666 28675 0 Every 4 hours as needed By Mouth False Dulcolax (bisacodyl) 10 mg rectal suppository One Suppository per rectum PRN if Milk of Magnisia ineffective. Give on day 5 of no BM 1 sup 2023 Active 2023 18957 86034 1 Daily as needed Rectal False Fleet Enema 19 gram-7 gram/118 mL Administer per rectum PRN one time if dulcolax suppository not effective. Give on day 6 of no BM 1 202300 0000 Active 2023 33899 48978 6 Daily as needed Rectal False Dextrose 50 % in water (D50W) intravenous solution [generic] Dextrose 50% reyes 20-50 ml (slow push) Intravenous if Glucagon not effective after 15 minutes. CALL 911 for ED Evaluation. 50% reyes 202300 /0000 Active 2023 00921 24615 9 Intrav enous False Glucagon (HCl) Emergency Kit 1 mg solution for injection Administer Glucagon 1 mg Intramuscular if 15 minutes after GLucose Gel is administered Glucose remains less than 70 1 mg 2023 Active 2023 44732 10746 2 Intram uscula r False Glucose Gel 40 % oral gel [Dextrose] PRN If resident is unable to swallow (with or without symptoms) and Glucose results less than 70 give GLucose 40% Gel 1 tube orally - Recheck Glucose 15 minutes after administratio n. 1 tube 2023 Active 2023 89655 08221 8 By Mouth False Lorazepam 0.5 mg tablet [generic] 0.5 mg By Mouth Every 8 hours as needed For Anxiety 0.5 mg 11/18 Inactiv e 2023 97408 27951 0 Every 8 hours as needed By Mouth False Potassium chloride ER 20 mEq tablet,exte nded release [generic] 40 meq By Mouth Once daily For Hypokalemia 40 meq 11/13 Inactiv e 2023 08979 47742 1 Once daily By Mouth False Colesevelam 625 mg tablet [generic] 1250 mg By Mouth Twice daily For TYPE 2 DIABETES MELLITUS WITHOUT COMPLICATIONS 1250 mg 11/19 Inactiv e 2023 07866 10033 1 Twice daily By Mouth E11.9 False Pioglitazon e 15 mg tablet [generic] 15 mg By Mouth Once daily For TYPE 2 DIABETES MELLITUS WITHOUT COMPLICATIONS 15 mg 11/14 Inactiv e 2023 21188 27471 1 Once daily By Mouth E11.9 False Cholecalcif hardeep (vitamin D3) 50 mcg (2,000 unit) tablet [generic] 50 mcg By Mouth Once daily For Supplement 50 mcg 2023 Active 2023 70310 69549 1 Once daily By Mouth False Colchicine 0.6 mg tablet [generic] 0.6 mg By Mouth Twice daily As Needed For Gout 0.6 mg 2023 Active 2023 09318 13717 4 Twice daily By Mouth False Levothyroxi ne 200 mcg tablet [generic] 200 mcg By Mouth Once daily For Hypothyroidis m 200 mcg 202300 0000 Active 2023 73708 13010 0 Once daily By Mouth False Ondansetron 4 mg disintegrat ing tablet [generic] 4 mg By Mouth Every 6 hours as needed For Nausea 4 mg 11/12 Inactiv e 2023 92462 23248 4 Every 6 hours as needed By Mouth False Docusate sodium 100 mg capsule [generic] 100 mg By Mouth Twice daily For Constipation 100 mg 202300 0000 Active 2023 30983 53571 1 Twice daily By Mouth False Oxycodone 5 mg tablet [generic] 5 mg By Mouth Every 6 hours as needed For Pain 5 mg 11/12 Inactiv e 2023 16094 43187 1 Every 6 hours as needed By Mouth False Oxycodone 5 mg tablet [generic] 5 mg By Mouth Every 6 hours as needed For Pain 5 mg 11/18 Inactiv e 2023 68841 10573 1 Every 6 hours as needed By Mouth False Milk of Magnesia 400 mg/5 mL oral suspension 30 ml By Mouth one time per day as needed if no BM x 3 days For Constipation 30 ml 202300 Active 2023 36301 21357 2 By Mouth False Ondansetron 4 mg disintegrat ing tablet [generic] 11/12 Inactiv e 2023 16351 56262 4 Ondansetron 4 mg disintegrat ing tablet [generic] 4 mg By Mouth Every 6 hours as needed For Nausea 4 mg 11/14 Inactiv e 2023 93671 85921 4 Every 6 hours as needed By Mouth False Potassium chloride ER 10 mEq capsule,ext ended release [generic] 40 mEq By Mouth Once daily For hypokalemia 40 mEq 11/17 Inactiv e 2023 02409 98715 1 Once daily By Mouth False Potassium chloride ER 10 mEq capsule,ext ended release [generic] 4 capsules By Mouth At bedtime For hypokalemia 4 capsule s 11/16 Inactiv e 2023 49871 06613 1 At bedtime By Mouth False Flomax 0.4 mg capsule 0.4 mg By Mouth At bedtime For Urinary retention 0.4 mg 11/18 Inactiv e 2023 02672 38486 1 At bedtime By Mouth False STOOL CULTURE Once daily Obtain stool culture, add C. Diff to routine stool culture For Rule out C. Diff 1x 2023 Active 2023 Once daily Other False Butrans 5 mcg/hour transdermal patch 1 patch Transdermal Every 7 Days For Pain 1 patch 2023 Active 2023 97096 56084 4 Every week Transd ermal False Pantoprazol e 40 mg tablet,nu yed release [generic] 40 mg By Mouth Twice daily For gerd 40 mg 2023 Active 2023 29275 60988 0 Twice daily By Mouth False Scopolamine 1 mg over 3 days transdermal patch [generic] 1 Transdermal Every 72 hours For nausea 1 11/21 Active 2023 53442 53041 4 Every 72 hours Transd ermal False Ondansetron 4 mg disintegrat ing tablet [generic] 11/14 Inactiv e 2023 64783 94879 4 Ondansetron 4 mg disintegrat ing tablet [generic] 4 mg By Mouth Every 8 hours For Nausea 4 mg 2023 Active 2023 53417 19940 4 Every 8 hours By Mouth False Miralax 17 gram oral powder packet 8.5 g (1/2 capful) By Mouth Once daily For constipation 8.5 g 11/18 Inactiv e 2023 49060 73367 6 Once daily By Mouth False Pioglitazon e 15 mg tablet [generic] 11/14 Inactiv e 2023 92179 84995 1 E11.9 Pioglitazon e 15 mg tablet [generic] 7.5mg ( half a tab) By Mouth Once daily For TYPE 2 DIABETES MELLITUS WITHOUT COMPLICATIONS 7.5mg 2023 Active 2023 86786 70230 1 Once daily By Mouth E11.9 False Mylanta Coat-Cool 1,200 mg-270 mg-80 mg/10 mL oral suspension 10 ml By Mouth Every 8 hours As Needed For heartburn, indigestion, gas 10 ml 2023 Active 2023 18670 68707 1 Every 8 hours By Mouth False Prochlorper azine maleate 5 mg tablet [generic] 5 mg By Mouth Every 8 hours as needed For Nausea 5 mg 2023 Active 2023 87970 06070 1 Every 8 hours as needed By Mouth False Potassium chloride ER 10 mEq capsule,ext ended release [generic] 10 meq By Mouth 4 times a day For Hypokalemia 10 meq 2023 Active 2023 77210 98054 1 4 times a day By Mouth False Lorazepam 0.5 mg tablet [generic] 11/18 Inactiv e 2023 16291 75588 0 Lorazepam 0.5 mg tablet [generic] 0.5 mg By Mouth Every 8 hours as needed For Anxiety 0.5 mg 12/18 Active 2023 22260 80847 0 Every 8 hours as needed By Mouth False Flomax 0.4 mg capsule 11/18 Inactiv e 2023 87393 39349 1 Flomax 0.4 mg capsule 0.4 mg By Mouth Once daily For Urinary retention 0.4 mg 2023 Active 2023 76355 70904 1 Once daily By Mouth False Oxycodone 5 mg tablet [generic] 11/18 Inactiv e 2023 45404 96147 1 Oxycodone 5 mg tablet [generic] 5 mg By Mouth Every 6 hours as needed For Back Pain 5 mg 2023 Active 2023 17622 90841 1 Every 6 hours as needed By Mouth False Cipro 250 mg tablet 250 mg By Mouth Twice daily For UTI 250 mg 2023 Active 2023 02755 85549 1 Twice daily By Mouth False Senna 8.6 mg tablet 17.2 mg By Mouth Twice daily For Constipation 17.2 mg 2023 Active 2023 71897 77395 1 Twice daily By Mouth False Zyprexa 2.5 mg tablet 2.5 mg By Mouth At bedtime For persistent nausea 2.5 mg 2023 Active 2023 19631 0 At bedtime By Mouth False Problems [...] Temperature SpO2 Blood Sugar Pulse Respirations 8 37481 5 75.00 mm[Hg] - Sitting 140.00 mm[Hg] - Sitting 65 NI 98.00 Tympanic 95.00 % 102.00 /min 18.00/min 01973 918 53281 9 918 04288 2 75.00 mm[Hg] - Sitting 140.00 mm[Hg] - Sitting 98.00 Tympanic 102.00 /min 18.00/min 87038 918 42120 3 39023 918 28483 1 72.00 mm[Hg] - Sitting 138.00 mm[Hg] - Sitting 98.40 Tympanic 8 21426 4 88.00/ min 18.00/min 919 75375 4 71.00 mm[Hg] - Sitting 115.00 mm[Hg] - Sitting 98.30 Tympanic 97.00 % 86.00/ min 16.00/min 919 29319 0 71.00 mm[Hg] - Sitting 115.00 mm[Hg] - Sitting 98.30 Tympanic 86.00/ min 16.00/min 37998 919 41023 7 71.00 mm[Hg] - Sitting 115.00 mm[Hg] - Sitting 98.30 Tympanic 86.00/ min 16.00/min 25798 920 74708 6 72.00 mm[Hg] - Sitting 112.00 mm[Hg] - Sitting 98.10 Tympanic 82.00/ min 18.00/min 920 68018 0 75.00 mm[Hg] - Sitting 130.00 mm[Hg] - Sitting 98.40 Forehead Scan 93.00 % 88.00/ min 18.00/min 920 55276 2 75.00 mm[Hg] - Lying Down 130.00 mm[Hg] - Lying Down 98.40 Tympanic 88.00/ min 18.00/min 69800 920 90633 5 75.00 mm[Hg] - Lying Down 130.00 mm[Hg] - Lying Down 98.40 Tympanic 88.00/ min 18.00/min 920 57547 6 199.00 NI 920 15048 3 75.00 mm[Hg] - Sitting 130.00 mm[Hg] - Sitting 98.40 Tympanic 88.00/ min 18.00/min 81877 921 51910 1 71.00 mm[Hg] - Lying Down 119.00 mm[Hg] - Lying Down 98.40 Forehead Scan 96.00 % 83.00/ min 16.00/min 75479 922 21699 6 71.00 mm[Hg] - Lying Down 128.00 mm[Hg] - Lying Down 98.30 Forehead Scan 94.00 % 84.00/ min 18.00/min 923 12977 4 63.00 mm[Hg] - Sitting 105.00 mm[Hg] - Sitting 98.20 Tympanic 93.00 % 93.00/ min 18.00/min 924 23354 8 66.00 mm[Hg] - Sitting 104.00 mm[Hg] - Sitting 98.20 Tympanic 98.00 % 84.00/ min 16.00/min 925 98910 2 131.00 mg/dL
--- OUTSIDE RECORDS SUMMARY | 2023-12-13 23:58 | External Medical Summary | Continuity Of Care Document ---
Author Name Unknown Address [address] [place] [address] Organization [facility] () Care Team Providers Care Airplane Fueler Name Role Phone DO Parson Amy Primary Care Provider [phone] Allergies Allergy Reaction Start Date End Date [...] 3 0.1 mL 11/13 Inactiv e 2023 29255 57041 0 1 time Intrad ermal False Tubersol 5 tub. unit/0.1 mL intradermal injection solution [Tuberculin PPD] 0.1mL Intradermal 1 time For PPD 2nd Step Give 2nd Step PPD Day 1 and Read results Day 3 (schedule 7 days after 1st READ) 0.1mL 11/13 Inactiv e 2023 63761 72199 0 1 time Intrad ermal False DISCONTINUE as of 11/14/2023: Tubersol 5 tub. unit/0.1 mL intradermal injection solution [Tuberculin PPD] 11/13 Inactiv e 2023 99836 30520 0 Tubersol 5 tub. unit/0.1 mL intradermal injection solution 0.1 mL Intradermal 1 time For PPD Step 1 GIVE on Day 1 and read results Day 3 0.1 mL 11/16 Inactiv e 2023 93063 47034 1 1 time Intrad ermal False DISCONTINUE as of 11/14/2023: Tubersol 5 tub. unit/0.1 mL intradermal injection solution [Tuberculin PPD] 11/13 Inactiv e 2023 46050 10923 0 Tubersol 5 tub. unit/0.1 mL intradermal injection solution 0.1mL Intradermal 1 time For PPD 2nd Step Give 2nd Step PPD Day 1 and Read results Day 3 (schedule 7 days after 1st READ) 0.1mL 11/25 Active 2023 80493 57531 1 1 time Intrad ermal False Tylenol 325 mg tablet 2 tabs By Mouth Every 4 hours as needed For Pain DO NOT EXCEED 3000 MG APAP/24 Hours 2 tabs 202300 /0000 Active 2023 56983 00775 0 Every 4 hours as needed By Mouth False Tylenol 325 mg tablet 2 tabs By Mouth Every 4 hours as needed For Fever >100 DO NOT EXCEED 3000 MG APAP/24 Hours 2 tabs 202300 /0000 Active 2023 77502 49038 0 Every 4 hours as needed By Mouth False Dulcolax (bisacodyl) 10 mg rectal suppository One Suppository per rectum PRN if Milk of Magnisia ineffective. Give on day 5 of no BM 1 sup 2023 Active 2023 68569 61860 1 Daily as needed Rectal False Fleet Enema 19 gram-7 gram/118 mL Administer per rectum PRN one time if dulcolax suppository not effective. Give on day 6 of no BM 1 202300 0000 Active 2023 02597 63975 6 Daily as needed Rectal False Dextrose 50 % in water (D50W) intravenous solution [generic] Dextrose 50% reyes 20-50 ml (slow push) Intravenous if Glucagon not effective after 15 minutes. CALL 911 for ED Evaluation. 50% reyes 202300 /0000 Active 2023 32361 95638 9 Intrav enous False Glucagon (HCl) Emergency Kit 1 mg solution for injection Administer Glucagon 1 mg Intramuscular if 15 minutes after GLucose Gel is administered Glucose remains less than 70 1 mg 2023 Active 2023 89519 61842 2 Intram uscula r False Glucose Gel 40 % oral gel [Dextrose] PRN If resident is unable to swallow (with or without symptoms) and Glucose results less than 70 give GLucose 40% Gel 1 tube orally - Recheck Glucose 15 minutes after administratio n. 1 tube 2023 Active 2023 20575 19975 8 By Mouth False Lorazepam 0.5 mg tablet [generic] 0.5 mg By Mouth Every 8 hours as needed For Anxiety 0.5 mg 11/18 Inactiv e 2023 47822 06297 0 Every 8 hours as needed By Mouth False Potassium chloride ER 20 mEq tablet,exte nded release [generic] 40 meq By Mouth Once daily For Hypokalemia 40 meq 11/13 Inactiv e 2023 21174 22816 1 Once daily By Mouth False Colesevelam 625 mg tablet [generic] 1250 mg By Mouth Twice daily For TYPE 2 DIABETES MELLITUS WITHOUT COMPLICATIONS 1250 mg 11/19 Inactiv e 2023 00624 01046 1 Twice daily By Mouth E11.9 False Pioglitazon e 15 mg tablet [generic] 15 mg By Mouth Once daily For TYPE 2 DIABETES MELLITUS WITHOUT COMPLICATIONS 15 mg 11/14 Inactiv e 2023 43313 80388 1 Once daily By Mouth E11.9 False Cholecalcif haredep (vitamin D3) 50 mcg (2,000 unit) tablet [generic] 50 mcg By Mouth Once daily For Supplement 50 mcg 2023 Active 2023 93333 62072 1 Once daily By Mouth False Colchicine 0.6 mg tablet [generic] 0.6 mg By Mouth Twice daily As Needed For Gout 0.6 mg 2023 Active 2023 55195 21774 4 Twice daily By Mouth False Levothyroxi ne 200 mcg tablet [generic] 200 mcg By Mouth Once daily For Hypothyroidis m 200 mcg 202300 0000 Active 2023 30887 08071 0 Once daily By Mouth False Ondansetron 4 mg disintegrat ing tablet [generic] 4 mg By Mouth Every 6 hours as needed For Nausea 4 mg 11/12 Inactiv e 2023 34069 36468 4 Every 6 hours as needed By Mouth False Docusate sodium 100 mg capsule [generic] 100 mg By Mouth Twice daily For Constipation 100 mg 202300 0000 Active 2023 67201 56950 1 Twice daily By Mouth False Oxycodone 5 mg tablet [generic] 5 mg By Mouth Every 6 hours as needed For Pain 5 mg 11/12 Inactiv e 2023 09762 63972 1 Every 6 hours as needed By Mouth False Oxycodone 5 mg tablet [generic] 5 mg By Mouth Every 6 hours as needed For Pain 5 mg 11/18 Inactiv e 2023 78907 52135 1 Every 6 hours as needed By Mouth False Milk of Magnesia 400 mg/5 mL oral suspension 30 ml By Mouth one time per day as needed if no BM x 3 days For Constipation 30 ml 202300 Active 2023 10778 86123 2 By Mouth False Ondansetron 4 mg disintegrat ing tablet [generic] 11/12 Inactiv e 2023 82480 79575 4 Ondansetron 4 mg disintegrat ing tablet [generic] 4 mg By Mouth Every 6 hours as needed For Nausea 4 mg 11/14 Inactiv e 2023 27445 63945 4 Every 6 hours as needed By Mouth False Potassium chloride ER 10 mEq capsule,ext ended release [generic] 40 mEq By Mouth Once daily For hypokalemia 40 mEq 11/17 Inactiv e 2023 68524 12443 1 Once daily By Mouth False Potassium chloride ER 10 mEq capsule,ext ended release [generic] 4 capsules By Mouth At bedtime For hypokalemia 4 capsule s 11/16 Inactiv e 2023 47760 27555 1 At bedtime By Mouth False Flomax 0.4 mg capsule 0.4 mg By Mouth At bedtime For Urinary retention 0.4 mg 11/18 Inactiv e 2023 91409 34198 1 At bedtime By Mouth False STOOL CULTURE Once daily Obtain stool culture, add C. Diff to routine stool culture For Rule out C. Diff 1x 2023 Active 2023 Once daily Other False Butrans 5 mcg/hour transdermal patch 1 patch Transdermal Every 7 Days For Pain 1 patch 2023 Active 2023 78976 83749 4 Every week Transd ermal False Pantoprazol e 40 mg tablet,nu yed release [generic] 40 mg By Mouth Twice daily For gerd 40 mg 2023 Active 2023 35488 97424 0 Twice daily By Mouth False Scopolamine 1 mg over 3 days transdermal patch [generic] 1 Transdermal Every 72 hours For nausea 1 11/21 Active 2023 22812 78286 4 Every 72 hours Transd ermal False Ondansetron 4 mg disintegrat ing tablet [generic] 11/14 Inactiv e 2023 03201 06697 4 Ondansetron 4 mg disintegrat ing tablet [generic] 4 mg By Mouth Every 8 hours For Nausea 4 mg 2023 Active 2023 23930 99036 4 Every 8 hours By Mouth False Miralax 17 gram oral powder packet 8.5 g (1/2 capful) By Mouth Once daily For constipation 8.5 g 11/18 Inactiv e 2023 51353 96842 6 Once daily By Mouth False Pioglitazon e 15 mg tablet [generic] 11/14 Inactiv e 2023 58818 44103 1 E11.9 Pioglitazon e 15 mg tablet [generic] 7.5mg ( half a tab) By Mouth Once daily For TYPE 2 DIABETES MELLITUS WITHOUT COMPLICATIONS 7.5mg 2023 Active 2023 85545 09688 1 Once daily By Mouth E11.9 False Mylanta Coat-Cool 1,200 mg-270 mg-80 mg/10 mL oral suspension 10 ml By Mouth Every 8 hours As Needed For heartburn, indigestion, gas 10 ml 2023 Active 2023 52852 40820 1 Every 8 hours By Mouth False Prochlorper azine maleate 5 mg tablet [generic] 5 mg By Mouth Every 8 hours as needed For Nausea 5 mg 2023 Active 2023 34853 65950 1 Every 8 hours as needed By Mouth False Potassium chloride ER 10 mEq capsule,ext ended release [generic] 10 meq By Mouth 4 times a day For Hypokalemia 10 meq 2023 Active 2023 97959 11343 1 4 times a day By Mouth False Lorazepam 0.5 mg tablet [generic] 11/18 Inactiv e 2023 09459 21373 0 Lorazepam 0.5 mg tablet [generic] 0.5 mg By Mouth Every 8 hours as needed For Anxiety 0.5 mg 12/18 Active 2023 99259 39357 0 Every 8 hours as needed By Mouth False Flomax 0.4 mg capsule 11/18 Inactiv e 2023 84088 58902 1 Flomax 0.4 mg capsule 0.4 mg By Mouth Once daily For Urinary retention 0.4 mg 2023 Active 2023 32579 89751 1 Once daily By Mouth False Oxycodone 5 mg tablet [generic] 11/18 Inactiv e 2023 49440 15073 1 Oxycodone 5 mg tablet [generic] 5 mg By Mouth Every 6 hours as needed For Back Pain 5 mg 2023 Active 2023 56888 88769 1 Every 6 hours as needed By Mouth False Cipro 250 mg tablet 250 mg By Mouth Twice daily For UTI 250 mg 2023 Active 2023 26808 13719 1 Twice daily By Mouth False Senna 8.6 mg tablet 17.2 mg By Mouth Twice daily For Constipation 17.2 mg 2023 Active 2023 46397 29850 1 Twice daily By Mouth False Zyprexa 2.5 mg tablet 2.5 mg By Mouth At bedtime For persistent nausea 2.5 mg 2023 Active 2023 31974 0 At bedtime By Mouth False Problems [...] Temperature SpO2 Blood Sugar Pulse Respirations 8 86856 5 75.00 mm[Hg] - Sitting 140.00 mm[Hg] - Sitting 65 NI 98.00 Tympanic 95.00 % 102.00 /min 18.00/min 38182 918 42701 9 918 66007 2 75.00 mm[Hg] - Sitting 140.00 mm[Hg] - Sitting 98.00 Tympanic 102.00 /min 18.00/min 87262 918 98715 3 34582 918 33583 1 72.00 mm[Hg] - Sitting 138.00 mm[Hg] - Sitting 98.40 Tympanic 8 16353 4 88.00/ min 18.00/min 919 69652 4 71.00 mm[Hg] - Sitting 115.00 mm[Hg] - Sitting 98.30 Tympanic 97.00 % 86.00/ min 16.00/min 919 59255 0 71.00 mm[Hg] - Sitting 115.00 mm[Hg] - Sitting 98.30 Tympanic 86.00/ min 16.00/min 55809 919 71371 7 71.00 mm[Hg] - Sitting 115.00 mm[Hg] - Sitting 98.30 Tympanic 86.00/ min 16.00/min 44873 920 88598 6 72.00 mm[Hg] - Sitting 112.00 mm[Hg] - Sitting 98.10 Tympanic 82.00/ min 18.00/min 920 52921 0 75.00 mm[Hg] - Sitting 130.00 mm[Hg] - Sitting 98.40 Forehead Scan 93.00 % 88.00/ min 18.00/min 920 19907 2 75.00 mm[Hg] - Lying Down 130.00 mm[Hg] - Lying Down 98.40 Tympanic 88.00/ min 18.00/min 19019 920 09354 5 75.00 mm[Hg] - Lying Down 130.00 mm[Hg] - Lying Down 98.40 Tympanic 88.00/ min 18.00/min 920 38287 6 199.00 NI 920 63857 3 75.00 mm[Hg] - Sitting 130.00 mm[Hg] - Sitting 98.40 Tympanic 88.00/ min 18.00/min 21362 921 39440 1 71.00 mm[Hg] - Lying Down 119.00 mm[Hg] - Lying Down 98.40 Forehead Scan 96.00 % 83.00/ min 16.00/min 48466 922 98166 6 71.00 mm[Hg] - Lying Down 128.00 mm[Hg] - Lying Down 98.30 Forehead Scan 94.00 % 84.00/ min 18.00/min 923 00296 4 63.00 mm[Hg] - Sitting 105.00 mm[Hg] - Sitting 98.20 Tympanic 93.00 % 93.00/ min 18.00/min 924 48433 8 66.00 mm[Hg] - Sitting 104.00 mm[Hg] - Sitting 98.20 Tympanic 98.00 % 84.00/ min 16.00/min 925 82808 2 131.00 mg/dL
--- OUTSIDE RECORDS SUMMARY | 2023-12-13 23:58 | External Medical Summary | Continuity Of Care Document ---
Author Name Unknown Address [address] [place] [address] Organization [facility] () Care Team Providers Care Gold Buyer Name Role Phone DO Parson Amy Primary Care Provider [phone] Allergies Allergy Reaction Start Date End Date [...] 3 0.1 mL 11/13 Inactiv e 2023 16730 07279 0 1 time Intrad ermal False Tubersol 5 tub. unit/0.1 mL intradermal injection solution [Tuberculin PPD] 0.1mL Intradermal 1 time For PPD 2nd Step Give 2nd Step PPD Day 1 and Read results Day 3 (schedule 7 days after 1st READ) 0.1mL 11/13 Inactiv e 2023 91375 88731 0 1 time Intrad ermal False DISCONTINUE as of 11/14/2023: Tubersol 5 tub. unit/0.1 mL intradermal injection solution [Tuberculin PPD] 11/13 Inactiv e 2023 42182 77071 0 Tubersol 5 tub. unit/0.1 mL intradermal injection solution 0.1 mL Intradermal 1 time For PPD Step 1 GIVE on Day 1 and read results Day 3 0.1 mL 11/16 Inactiv e 2023 22068 15309 1 1 time Intrad ermal False DISCONTINUE as of 11/14/2023: Tubersol 5 tub. unit/0.1 mL intradermal injection solution [Tuberculin PPD] 11/13 Inactiv e 2023 85135 11811 0 Tubersol 5 tub. unit/0.1 mL intradermal injection solution 0.1mL Intradermal 1 time For PPD 2nd Step Give 2nd Step PPD Day 1 and Read results Day 3 (schedule 7 days after 1st READ) 0.1mL 11/25 Active 2023 62105 62638 1 1 time Intrad ermal False Tylenol 325 mg tablet 2 tabs By Mouth Every 4 hours as needed For Pain DO NOT EXCEED 3000 MG APAP/24 Hours 2 tabs 202300 /0000 Active 2023 46909 36210 0 Every 4 hours as needed By Mouth False Tylenol 325 mg tablet 2 tabs By Mouth Every 4 hours as needed For Fever >100 DO NOT EXCEED 3000 MG APAP/24 Hours 2 tabs 202300 /0000 Active 2023 93203 20858 0 Every 4 hours as needed By Mouth False Dulcolax (bisacodyl) 10 mg rectal suppository One Suppository per rectum PRN if Milk of Magnisia ineffective. Give on day 5 of no BM 1 sup 2023 Active 2023 83216 64387 1 Daily as needed Rectal False Fleet Enema 19 gram-7 gram/118 mL Administer per rectum PRN one time if dulcolax suppository not effective. Give on day 6 of no BM 1 202300 0000 Active 2023 43332 68228 6 Daily as needed Rectal False Dextrose 50 % in water (D50W) intravenous solution [generic] Dextrose 50% reyes 20-50 ml (slow push) Intravenous if Glucagon not effective after 15 minutes. CALL 911 for ED Evaluation. 50% reyes 202300 /0000 Active 2023 08715 76300 9 Intrav enous False Glucagon (HCl) Emergency Kit 1 mg solution for injection Administer Glucagon 1 mg Intramuscular if 15 minutes after GLucose Gel is administered Glucose remains less than 70 1 mg 2023 Active 2023 31496 16730 2 Intram uscula r False Glucose Gel 40 % oral gel [Dextrose] PRN If resident is unable to swallow (with or without symptoms) and Glucose results less than 70 give GLucose 40% Gel 1 tube orally - Recheck Glucose 15 minutes after administratio n. 1 tube 2023 Active 2023 57783 99016 8 By Mouth False Lorazepam 0.5 mg tablet [generic] 0.5 mg By Mouth Every 8 hours as needed For Anxiety 0.5 mg 11/18 Inactiv e 2023 30358 52039 0 Every 8 hours as needed By Mouth False Potassium chloride ER 20 mEq tablet,exte nded release [generic] 40 meq By Mouth Once daily For Hypokalemia 40 meq 11/13 Inactiv e 2023 75809 67015 1 Once daily By Mouth False Colesevelam 625 mg tablet [generic] 1250 mg By Mouth Twice daily For TYPE 2 DIABETES MELLITUS WITHOUT COMPLICATIONS 1250 mg 11/19 Inactiv e 2023 86879 26348 1 Twice daily By Mouth E11.9 False Pioglitazon e 15 mg tablet [generic] 15 mg By Mouth Once daily For TYPE 2 DIABETES MELLITUS WITHOUT COMPLICATIONS 15 mg 11/14 Inactiv e 2023 98393 93994 1 Once daily By Mouth E11.9 False Cholecalcif hardeep (vitamin D3) 50 mcg (2,000 unit) tablet [generic] 50 mcg By Mouth Once daily For Supplement 50 mcg 2023 Active 2023 45667 12290 1 Once daily By Mouth False Colchicine 0.6 mg tablet [generic] 0.6 mg By Mouth Twice daily As Needed For Gout 0.6 mg 2023 Active 2023 44166 53477 4 Twice daily By Mouth False Levothyroxi ne 200 mcg tablet [generic] 200 mcg By Mouth Once daily For Hypothyroidis m 200 mcg 202300 0000 Active 2023 00653 85931 0 Once daily By Mouth False Ondansetron 4 mg disintegrat ing tablet [generic] 4 mg By Mouth Every 6 hours as needed For Nausea 4 mg 11/12 Inactiv e 2023 19694 14701 4 Every 6 hours as needed By Mouth False Docusate sodium 100 mg capsule [generic] 100 mg By Mouth Twice daily For Constipation 100 mg 202300 0000 Active 2023 66594 35953 1 Twice daily By Mouth False Oxycodone 5 mg tablet [generic] 5 mg By Mouth Every 6 hours as needed For Pain 5 mg 11/12 Inactiv e 2023 65195 62638 1 Every 6 hours as needed By Mouth False Oxycodone 5 mg tablet [generic] 5 mg By Mouth Every 6 hours as needed For Pain 5 mg 11/18 Inactiv e 2023 24105 99463 1 Every 6 hours as needed By Mouth False Milk of Magnesia 400 mg/5 mL oral suspension 30 ml By Mouth one time per day as needed if no BM x 3 days For Constipation 30 ml 202300 Active 2023 10911 29392 2 By Mouth False Ondansetron 4 mg disintegrat ing tablet [generic] 11/12 Inactiv e 2023 03307 74719 4 Ondansetron 4 mg disintegrat ing tablet [generic] 4 mg By Mouth Every 6 hours as needed For Nausea 4 mg 11/14 Inactiv e 2023 62997 59447 4 Every 6 hours as needed By Mouth False Potassium chloride ER 10 mEq capsule,ext ended release [generic] 40 mEq By Mouth Once daily For hypokalemia 40 mEq 11/17 Inactiv e 2023 69047 78302 1 Once daily By Mouth False Potassium chloride ER 10 mEq capsule,ext ended release [generic] 4 capsules By Mouth At bedtime For hypokalemia 4 capsule s 11/16 Inactiv e 2023 29786 26965 1 At bedtime By Mouth False Flomax 0.4 mg capsule 0.4 mg By Mouth At bedtime For Urinary retention 0.4 mg 11/18 Inactiv e 2023 68379 17556 1 At bedtime By Mouth False STOOL CULTURE Once daily Obtain stool culture, add C. Diff to routine stool culture For Rule out C. Diff 1x 2023 Active 2023 Once daily Other False Butrans 5 mcg/hour transdermal patch 1 patch Transdermal Every 7 Days For Pain 1 patch 2023 Active 2023 24431 21203 4 Every week Transd ermal False Pantoprazol e 40 mg tablet,nu yed release [generic] 40 mg By Mouth Twice daily For gerd 40 mg 2023 Active 2023 26057 48819 0 Twice daily By Mouth False Scopolamine 1 mg over 3 days transdermal patch [generic] 1 Transdermal Every 72 hours For nausea 1 11/21 Active 2023 80581 58773 4 Every 72 hours Transd ermal False Ondansetron 4 mg disintegrat ing tablet [generic] 11/14 Inactiv e 2023 48421 05741 4 Ondansetron 4 mg disintegrat ing tablet [generic] 4 mg By Mouth Every 8 hours For Nausea 4 mg 2023 Active 2023 76039 55655 4 Every 8 hours By Mouth False Miralax 17 gram oral powder packet 8.5 g (1/2 capful) By Mouth Once daily For constipation 8.5 g 11/18 Inactiv e 2023 13502 07875 6 Once daily By Mouth False Pioglitazon e 15 mg tablet [generic] 11/14 Inactiv e 2023 97696 31849 1 E11.9 Pioglitazon e 15 mg tablet [generic] 7.5mg ( half a tab) By Mouth Once daily For TYPE 2 DIABETES MELLITUS WITHOUT COMPLICATIONS 7.5mg 2023 Active 2023 00996 51914 1 Once daily By Mouth E11.9 False Mylanta Coat-Cool 1,200 mg-270 mg-80 mg/10 mL oral suspension 10 ml By Mouth Every 8 hours As Needed For heartburn, indigestion, gas 10 ml 2023 Active 2023 64268 71591 1 Every 8 hours By Mouth False Prochlorper azine maleate 5 mg tablet [generic] 5 mg By Mouth Every 8 hours as needed For Nausea 5 mg 2023 Active 2023 34094 63812 1 Every 8 hours as needed By Mouth False Potassium chloride ER 10 mEq capsule,ext ended release [generic] 10 meq By Mouth 4 times a day For Hypokalemia 10 meq 2023 Active 2023 86989 48985 1 4 times a day By Mouth False Lorazepam 0.5 mg tablet [generic] 11/18 Inactiv e 2023 56973 61688 0 Lorazepam 0.5 mg tablet [generic] 0.5 mg By Mouth Every 8 hours as needed For Anxiety 0.5 mg 12/18 Active 2023 34298 97636 0 Every 8 hours as needed By Mouth False Flomax 0.4 mg capsule 11/18 Inactiv e 2023 80210 92726 1 Flomax 0.4 mg capsule 0.4 mg By Mouth Once daily For Urinary retention 0.4 mg 2023 Active 2023 90158 76781 1 Once daily By Mouth False Oxycodone 5 mg tablet [generic] 11/18 Inactiv e 2023 96546 59467 1 Oxycodone 5 mg tablet [generic] 5 mg By Mouth Every 6 hours as needed For Back Pain 5 mg 2023 Active 2023 07943 22101 1 Every 6 hours as needed By Mouth False Cipro 250 mg tablet 250 mg By Mouth Twice daily For UTI 250 mg 2023 Active 2023 28243 40379 1 Twice daily By Mouth False Senna 8.6 mg tablet 17.2 mg By Mouth Twice daily For Constipation 17.2 mg 2023 Active 2023 19121 40773 1 Twice daily By Mouth False Zyprexa 2.5 mg tablet 2.5 mg By Mouth At bedtime For persistent nausea 2.5 mg 2023 Active 20232 68150 0 At bedtime By Mouth False MAGNESSIUM [...] weight Temperature SpO2 Blood Sugar Pulse Respirations 88032 5 75.00 mm[Hg] - Sitting 140.00 mm[Hg] - Sitting 65 NI 98.00 Tympanic 95.00 % 102.00 /min 18.00/min 918 25507 9 01874 918 43726 2 75.00 mm[Hg] - Sitting 140.00 mm[Hg] - Sitting 98.00 Tympanic 102.00 /min 18.00/min 918 10987 3 30134 918 09879 1 72.00 mm[Hg] - Sitting 138.00 mm[Hg] - Sitting 98.40 Tympanic 918 37190 4 88.00/ min 18.00/min 919 78480 4 71.00 mm[Hg] - Sitting 115.00 mm[Hg] - Sitting 98.30 Tympanic 97.00 % 86.00/ min 16.00/min 919 56939 0 71.00 mm[Hg] - Sitting 115.00 mm[Hg] - Sitting 98.30 Tympanic 86.00/ min 16.00/min 25218 919 38403 7 71.00 mm[Hg] - Sitting 115.00 mm[Hg] - Sitting 98.30 Tympanic 86.00/ min 16.00/min 920 53399 6 72.00 mm[Hg] - Sitting 112.00 mm[Hg] - Sitting 98.10 Tympanic 82.00/ min 18.00/min 33261 920 17279 0 75.00 mm[Hg] - Sitting 130.00 mm[Hg] - Sitting 98.40 Forehead Scan 93.00 % 88.00/ min 18.00/min 84460 920 73497 2 75.00 mm[Hg] - Lying Down 130.00 mm[Hg] - Lying Down 98.40 Tympanic 88.00/ min 18.00/min 75440 920 45649 5 75.00 mm[Hg] - Lying Down 130.00 mm[Hg] - Lying Down 98.40 Tympanic 88.00/ min 18.00/min 920 23328 6 199.00 NI 22274 920 28872 3 75.00 mm[Hg] - Sitting 130.00 mm[Hg] - Sitting 98.40 Tympanic 88.00/ min 18.00/min 94269 921 18172 1 71.00 mm[Hg] - Lying Down 119.00 mm[Hg] - Lying Down 98.40 Forehead Scan 96.00 % 83.00/ min 16.00/min 99904 922 24844 6 71.00 mm[Hg] - Lying Down 128.00 mm[Hg] - Lying Down 98.30 Forehead Scan 94.00 % 84.00/ min 18.00/min 923 69253 4 63.00 mm[Hg] - Sitting 105.00 mm[Hg] - Sitting 98.20 Tympanic 93.00 % 93.00/ min 18.00/min 924 20780 8 66.00 mm[Hg] - Sitting 104.00 mm[Hg] - Sitting 98.20 Tympanic 98.00 % 84.00/ min 16.00/min 925 72714 2 131.00 mg/dL
--- OUTSIDE RECORDS SUMMARY | 2023-12-13 23:58 | External Medical Summary | Continuity Of Care Document ---
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 unit/0.1 mL intradermal injection solution [Tuberculin PPD] 0.1mL Intradermal 1 time For PPD 2nd Step Give 2nd Step PPD Day 1 and Read results Day 3 (schedule 7 days after 1st READ) 0.1mL 11/13 Inactiv e 2023 19687 64587 0 1 time Intrad ermal False DISCONTINUE as of 11/14/2023: Tubersol 5 tub. unit/0.1 mL intradermal injection solution [Tuberculin PPD] 11/13 Inactiv e 2023 02718 50983 0 Tubersol 5 tub. unit/0.1 mL intradermal injection solution 0.1 mL Intradermal 1 time For PPD Step 1 GIVE on Day 1 and read results Day 3 0.1 mL 11/16 Inactiv e 2023 12074 28660 1 1 time Intrad ermal False DISCONTINUE as of 11/14/2023: Tubersol 5 tub. unit/0.1 mL intradermal injection solution [Tuberculin PPD] 11/13 Inactiv e 2023 53600 03933 0 Tubersol 5 tub. unit/0.1 mL intradermal injection solution 0.1mL Intradermal 1 time For PPD 2nd Step Give 2nd Step PPD Day 1 and Read results Day 3 (schedule 7 days after 1st READ) 0.1mL 11/25 Active 2023 76541 31280 1 1 time Intrad ermal False Tylenol 325 mg tablet 2 tabs By Mouth Every 4 hours as needed For Pain DO NOT EXCEED 3000 MG APAP/24 Hours 2 tabs 202300 /0000 Active 2023 47067 01950 0 Every 4 hours as needed By Mouth False Tylenol 325 mg tablet 2 tabs By Mouth Every 4 hours as needed For Fever >100 DO NOT EXCEED 3000 MG APAP/24 Hours 2 tabs 202300 /0000 Active 2023 92346 52325 0 Every 4 hours as needed By Mouth False Dulcolax (bisacodyl) 10 mg rectal suppository One Suppository per rectum PRN if Milk of Magnisia ineffective. Give on day 5 of no BM 1 sup 2023 Active 2023 50897 11318 1 Daily as needed Rectal False Fleet Enema 19 gram-7 gram/118 mL Administer per rectum PRN one time if dulcolax suppository not effective. Give on day 6 of no BM 1 202300 0000 Active 2023 02013 05495 6 Daily as needed Rectal False Dextrose 50 % in water (D50W) intravenous solution [generic] Dextrose 50% reyes 20-50 ml (slow push) Intravenous if Glucagon not effective after 15 minutes. CALL 911 for ED Evaluation. 50% reyes 202300 /0000 Active 2023 71548 31910 9 Intrav enous False Glucagon (HCl) Emergency Kit 1 mg solution for injection Administer Glucagon 1 mg Intramuscular if 15 minutes after GLucose Gel is administered Glucose remains less than 70 1 mg 2023 Active 2023 67792 13632 2 Intram uscula r False Glucose Gel 40 % oral gel [Dextrose] PRN If resident is unable to swallow (with or without symptoms) and Glucose results less than 70 give GLucose 40% Gel 1 tube orally - Recheck Glucose 15 minutes after administratio n. 1 tube 2023 Active 2023 78277 66886 8 By Mouth False Lorazepam 0.5 mg tablet [generic] 0.5 mg By Mouth Every 8 hours as needed For Anxiety 0.5 mg 11/18 Inactiv e 2023 37634 22703 0 Every 8 hours as needed By Mouth False Potassium chloride ER 20 mEq tablet,exte nded release [generic] 40 meq By Mouth Once daily For Hypokalemia 40 meq 11/13 Inactiv e 2023 56857 92538 1 Once daily By Mouth False Colesevelam 625 mg tablet [generic] 1250 mg By Mouth Twice daily For TYPE 2 DIABETES MELLITUS WITHOUT COMPLICATIONS 1250 mg 11/19 Inactiv e 2023 63369 96577 1 Twice daily By Mouth E11.9 False Pioglitazon e 15 mg tablet [generic] 15 mg By Mouth Once daily For TYPE 2 DIABETES MELLITUS WITHOUT COMPLICATIONS 15 mg 11/14 Inactiv e 2023 17393 30693 1 Once daily By Mouth E11.9 False Cholecalcif hardeep (vitamin D3) 50 mcg (2,000 unit) tablet [generic] 50 mcg By Mouth Once daily For Supplement 50 mcg 2023 Active 2023 85552 86722 1 Once daily By Mouth False Colchicine 0.6 mg tablet [generic] 0.6 mg By Mouth Twice daily As Needed For Gout 0.6 mg 2023 Active 2023 00963 80868 4 Twice daily By Mouth False Levothyroxi ne 200 mcg tablet [generic] 200 mcg By Mouth Once daily For Hypothyroidis m 200 mcg 202300 0000 Active 2023 71804 49255 0 Once daily By Mouth False Ondansetron 4 mg disintegrat ing tablet [generic] 4 mg By Mouth Every 6 hours as needed For Nausea 4 mg 11/12 Inactiv e 2023 75639 87913 4 Every 6 hours as needed By Mouth False Docusate sodium 100 mg capsule [generic] 100 mg By Mouth Twice daily For Constipation 100 mg 202300 0000 Active 2023 55302 10996 1 Twice daily By Mouth False Oxycodone 5 mg tablet [generic] 5 mg By Mouth Every 6 hours as needed For Pain 5 mg 11/12 Inactiv e 2023 40909 12734 1 Every 6 hours as needed By Mouth False Oxycodone 5 mg tablet [generic] 5 mg By Mouth Every 6 hours as needed For Pain 5 mg 11/18 Inactiv e 2023 81247 88223 1 Every 6 hours as needed By Mouth False Milk of Magnesia 400 mg/5 mL oral suspension 30 ml By Mouth one time per day as needed if no BM x 3 days For Constipation 30 ml 202300 Active 2023 20446 15863 2 By Mouth False Ondansetron 4 mg disintegrat ing tablet [generic] 11/12 Inactiv e 2023 31894 84587 4 Ondansetron 4 mg disintegrat ing tablet [generic] 4 mg By Mouth Every 6 hours as needed For Nausea 4 mg 11/14 Inactiv e 2023 55909 94248 4 Every 6 hours as needed By Mouth False Potassium chloride ER 10 mEq capsule,ext ended release [generic] 40 mEq By Mouth Once daily For hypokalemia 40 mEq 11/17 Inactiv e 2023 05319 29003 1 Once daily By Mouth False Potassium chloride ER 10 mEq capsule,ext ended release [generic] 4 capsules By Mouth At bedtime For hypokalemia 4 capsule s 11/16 Inactiv e 2023 92820 15121 1 At bedtime By Mouth False Flomax 0.4 mg capsule 0.4 mg By Mouth At bedtime For Urinary retention 0.4 mg 11/18 Inactiv e 2023 18184 42677 1 At bedtime By Mouth False STOOL CULTURE Once daily Obtain stool culture, add C. Diff to routine stool culture For Rule out C. Diff 1x 2023 Active 2023 Once daily Other False Butrans 5 mcg/hour transdermal patch 1 patch Transdermal Every 7 Days For Pain 1 patch 2023 Active 2023 73812 86637 4 Every week Transd ermal False Pantoprazol e 40 mg tablet,nu yed release [generic] 40 mg By Mouth Twice daily For gerd 40 mg 2023 Active 2023 07766 58433 0 Twice daily By Mouth False Scopolamine 1 mg over 3 days transdermal patch [generic] 1 Transdermal Every 72 hours For nausea 1 11/21 Active 2023 62991 13072 4 Every 72 hours Transd ermal False Ondansetron 4 mg disintegrat ing tablet [generic] 11/14 Inactiv e 2023 63660 02876 4 Ondansetron 4 mg disintegrat ing tablet [generic] 4 mg By Mouth Every 8 hours For Nausea 4 mg 2023 Active 2023 22265 06011 4 Every 8 hours By Mouth False Miralax 17 gram oral powder packet 8.5 g (1/2 capful) By Mouth Once daily For constipation 8.5 g 11/18 Inactiv e 2023 58088 84502 6 Once daily By Mouth False Pioglitazon e 15 mg tablet [generic] 11/14 Inactiv e 2023 24084 13944 1 E11.9 Pioglitazon e 15 mg tablet [generic] 7.5mg ( half a tab) By Mouth Once daily For TYPE 2 DIABETES MELLITUS WITHOUT COMPLICATIONS 7.5mg 2023 Active 2023 54030 87265 1 Once daily By Mouth E11.9 False Mylanta Coat-Cool 1,200 mg-270 mg-80 mg/10 mL oral suspension 10 ml By Mouth Every 8 hours As Needed For heartburn, indigestion, gas 10 ml 2023 Active 2023 99347 24471 1 Every 8 hours By Mouth False Prochlorper azine maleate 5 mg tablet [generic] 5 mg By Mouth Every 8 hours as needed For Nausea 5 mg 2023 Active 2023 26461 21160 1 Every 8 hours as needed By Mouth False Potassium chloride ER 10 mEq capsule,ext ended release [generic] 10 meq By Mouth 4 times a day For Hypokalemia 10 meq 2023 Active 2023 69724 63740 1 4 times a day By Mouth False Lorazepam 0.5 mg tablet [generic] 11/18 Inactiv e 2023 78565 73017 0 Lorazepam 0.5 mg tablet [generic] 0.5 mg By Mouth Every 8 hours as needed For Anxiety 0.5 mg 12/18 Active 2023 55847 34158 0 Every 8 hours as needed By Mouth False Flomax 0.4 mg capsule 11/18 Inactiv e 2023 38145 13587 1 Flomax 0.4 mg capsule 0.4 mg By Mouth Once daily For Urinary retention 0.4 mg 2023 Active 2023 47859 91496 1 Once daily By Mouth False Oxycodone 5 mg tablet [generic] 11/18 Inactiv e 2023 29951 57030 1 Oxycodone 5 mg tablet [generic] 5 mg By Mouth Every 6 hours as needed For Back Pain 5 mg 2023 Active 2023 01686 69178 1 Every 6 hours as needed By Mouth False Cipro 250 mg tablet 250 mg By Mouth Twice daily For UTI 250 mg 2023 Active 2023 03138 51398 1 Twice daily By Mouth False Senna 8.6 mg tablet 17.2 mg By Mouth Twice daily For Constipation 17.2 mg 2023 Active 2023 95574 97226 1 Twice daily By Mouth False Zyprexa 2.5 mg tablet 2.5 mg By Mouth At bedtime For persistent nausea 2.5 mg 2023 Active 2023 44980 0 At bedtime By Mouth False Problems [...] Temperature SpO2 Blood Sugar Pulse Respirations 8 29674 5 75.00 mm[Hg] - Sitting 140.00 mm[Hg] - Sitting 65 NI 98.00 Tympanic 95.00 % 102.00 /min 18.00/min 88574 918 30985 9 918 86004 2 75.00 mm[Hg] - Sitting 140.00 mm[Hg] - Sitting 98.00 Tympanic 102.00 /min 18.00/min 15450 918 12334 3 99517 918 72142 1 72.00 mm[Hg] - Sitting 138.00 mm[Hg] - Sitting 98.40 Tympanic 8 57217 4 88.00/ min 18.00/min 919 50845 4 71.00 mm[Hg] - Sitting 115.00 mm[Hg] - Sitting 98.30 Tympanic 97.00 % 86.00/ min 16.00/min 919 63640 0 71.00 mm[Hg] - Sitting 115.00 mm[Hg] - Sitting 98.30 Tympanic 86.00/ min 16.00/min 35831 919 83968 7 71.00 mm[Hg] - Sitting 115.00 mm[Hg] - Sitting 98.30 Tympanic 86.00/ min 16.00/min 76914 920 58090 6 72.00 mm[Hg] - Sitting 112.00 mm[Hg] - Sitting 98.10 Tympanic 82.00/ min 18.00/min 920 05485 0 75.00 mm[Hg] - Sitting 130.00 mm[Hg] - Sitting 98.40 Forehead Scan 93.00 % 88.00/ min 18.00/min 920 09950 2 75.00 mm[Hg] - Lying Down 130.00 mm[Hg] - Lying Down 98.40 Tympanic 88.00/ min 18.00/min 08414 920 89462 5 75.00 mm[Hg] - Lying Down 130.00 mm[Hg] - Lying Down 98.40 Tympanic 88.00/ min 18.00/min 920 68329 6 199.00 NI 920 58510 3 75.00 mm[Hg] - Sitting 130.00 mm[Hg] - Sitting 98.40 Tympanic 88.00/ min 18.00/min 51921 921 21896 1 71.00 mm[Hg] - Lying Down 119.00 mm[Hg] - Lying Down 98.40 Forehead Scan 96.00 % 83.00/ min 16.00/min 52126 922 55358 6 71.00 mm[Hg] - Lying Down 128.00 mm[Hg] - Lying Down 98.30 Forehead Scan 94.00 % 84.00/ min 18.00/min 923 84383 4 63.00 mm[Hg] - Sitting 105.00 mm[Hg] - Sitting 98.20 Tympanic 93.00 % 93.00/ min 18.00/min 924 26063 8 66.00 mm[Hg] - Sitting 104.00 mm[Hg] - Sitting 98.20 Tympanic 98.00 % 84.00/ min 16.00/min 925 03966 2 131.00 mg/dL
--- OUTSIDE RECORDS SUMMARY | 2023-12-13 23:58 | External Medical Summary | Continuity Of Care Document ---
Author Name Unknown Address [address] [place] [address] Organization [facility] [place] () Care Team Providers Care Driver'S License Examiner Name Role Phone DO Parson Amy Primary Care Provider [phone] Allergies Allergy Reaction Start Date End Date [...] 3 0.1 mL 11/13 Inactiv e 2023 54480 59159 0 1 time Intrad ermal False Tubersol 5 tub. unit/0.1 mL intradermal injection solution [Tuberculin PPD] 0.1mL Intradermal 1 time For PPD 2nd Step Give 2nd Step PPD Day 1 and Read results Day 3 (schedule 7 days after 1st READ) 0.1mL 11/13 Inactiv e 2023 22709 11757 0 1 time Intrad ermal False DISCONTINUE as of 11/14/2023: Tubersol 5 tub. unit/0.1 mL intradermal injection solution [Tuberculin PPD] 11/13 Inactiv e 2023 70401 35877 0 Tubersol 5 tub. unit/0.1 mL intradermal injection solution 0.1 mL Intradermal 1 time For PPD Step 1 GIVE on Day 1 and read results Day 3 0.1 mL 11/16 Inactiv e 2023 01721 21993 1 1 time Intrad ermal False DISCONTINUE as of 11/14/2023: Tubersol 5 tub. unit/0.1 mL intradermal injection solution [Tuberculin PPD] 11/13 Inactiv e 2023 82582 15758 0 Tubersol 5 tub. unit/0.1 mL intradermal injection solution 0.1mL Intradermal 1 time For PPD 2nd Step Give 2nd Step PPD Day 1 and Read results Day 3 (schedule 7 days after 1st READ) 0.1mL 11/25 Active 2023 88304 76383 1 1 time Intrad ermal False Tylenol 325 mg tablet 2 tabs By Mouth Every 4 hours as needed For Pain DO NOT EXCEED 3000 MG APAP/24 Hours 2 tabs 202300 /0000 Active 2023 11296 15988 0 Every 4 hours as needed By Mouth False Tylenol 325 mg tablet 2 tabs By Mouth Every 4 hours as needed For Fever >100 DO NOT EXCEED 3000 MG APAP/24 Hours 2 tabs 202300 /0000 Active 2023 06592 17241 0 Every 4 hours as needed By Mouth False Dulcolax (bisacodyl) 10 mg rectal suppository One Suppository per rectum PRN if Milk of Magnisia ineffective. Give on day 5 of no BM 1 sup 2023 Active 2023 51273 26537 1 Daily as needed Rectal False Fleet Enema 19 gram-7 gram/118 mL Administer per rectum PRN one time if dulcolax suppository not effective. Give on day 6 of no BM 1 202300 0000 Active 2023 89301 91838 6 Daily as needed Rectal False Dextrose 50 % in water (D50W) intravenous solution [generic] Dextrose 50% reyes 20-50 ml (slow push) Intravenous if Glucagon not effective after 15 minutes. CALL 911 for ED Evaluation. 50% reyes 202300 /0000 Active 2023 92916 11109 9 Intrav enous False Glucagon (HCl) Emergency Kit 1 mg solution for injection Administer Glucagon 1 mg Intramuscular if 15 minutes after GLucose Gel is administered Glucose remains less than 70 1 mg 2023 Active 2023 69814 70520 2 Intram uscula r False Glucose Gel 40 % oral gel [Dextrose] PRN If resident is unable to swallow (with or without symptoms) and Glucose results less than 70 give GLucose 40% Gel 1 tube orally - Recheck Glucose 15 minutes after administratio n. 1 tube 2023 Active 2023 53594 26321 8 By Mouth False Lorazepam 0.5 mg tablet [generic] 0.5 mg By Mouth Every 8 hours as needed For Anxiety 0.5 mg 11/18 Inactiv e 2023 63370 02160 0 Every 8 hours as needed By Mouth False Potassium chloride ER 20 mEq tablet,exte nded release [generic] 40 meq By Mouth Once daily For Hypokalemia 40 meq 11/13 Inactiv e 2023 63520 97292 1 Once daily By Mouth False Colesevelam 625 mg tablet [generic] 1250 mg By Mouth Twice daily For TYPE 2 DIABETES MELLITUS WITHOUT COMPLICATIONS 1250 mg 11/19 Inactiv e 2023 93174 06944 1 Twice daily By Mouth E11.9 False Pioglitazon e 15 mg tablet [generic] 15 mg By Mouth Once daily For TYPE 2 DIABETES MELLITUS WITHOUT COMPLICATIONS 15 mg 11/14 Inactiv e 2023 02888 15598 1 Once daily By Mouth E11.9 False Cholecalcif hardeep (vitamin D3) 50 mcg (2,000 unit) tablet [generic] 50 mcg By Mouth Once daily For Supplement 50 mcg 2023 Active 2023 31069 73160 1 Once daily By Mouth False Colchicine 0.6 mg tablet [generic] 0.6 mg By Mouth Twice daily As Needed For Gout 0.6 mg 2023 Active 2023 19294 00935 4 Twice daily By Mouth False Levothyroxi ne 200 mcg tablet [generic] 200 mcg By Mouth Once daily For Hypothyroidis m 200 mcg 202300 0000 Active 2023 45958 85581 0 Once daily By Mouth False Ondansetron 4 mg disintegrat ing tablet [generic] 4 mg By Mouth Every 6 hours as needed For Nausea 4 mg 11/12 Inactiv e 2023 78275 85824 4 Every 6 hours as needed By Mouth False Docusate sodium 100 mg capsule [generic] 100 mg By Mouth Twice daily For Constipation 100 mg 202300 0000 Active 2023 40750 57768 1 Twice daily By Mouth False Oxycodone 5 mg tablet [generic] 5 mg By Mouth Every 6 hours as needed For Pain 5 mg 11/12 Inactiv e 2023 94600 98851 1 Every 6 hours as needed By Mouth False Oxycodone 5 mg tablet [generic] 5 mg By Mouth Every 6 hours as needed For Pain 5 mg 11/18 Inactiv e 2023 82450 74145 1 Every 6 hours as needed By Mouth False Milk of Magnesia 400 mg/5 mL oral suspension 30 ml By Mouth one time per day as needed if no BM x 3 days For Constipation 30 ml 202300 Active 2023 85002 31618 2 By Mouth False Ondansetron 4 mg disintegrat ing tablet [generic] 11/12 Inactiv e 2023 54033 53522 4 Ondansetron 4 mg disintegrat ing tablet [generic] 4 mg By Mouth Every 6 hours as needed For Nausea 4 mg 11/14 Inactiv e 2023 71595 59273 4 Every 6 hours as needed By Mouth False Potassium chloride ER 10 mEq capsule,ext ended release [generic] 40 mEq By Mouth Once daily For hypokalemia 40 mEq 11/17 Inactiv e 2023 54080 50093 1 Once daily By Mouth False Potassium chloride ER 10 mEq capsule,ext ended release [generic] 4 capsules By Mouth At bedtime For hypokalemia 4 capsule s 11/16 Inactiv e 2023 38515 91790 1 At bedtime By Mouth False Flomax 0.4 mg capsule 0.4 mg By Mouth At bedtime For Urinary retention 0.4 mg 11/18 Inactiv e 2023 06051 45196 1 At bedtime By Mouth False STOOL CULTURE Once daily Obtain stool culture, add C. Diff to routine stool culture For Rule out C. Diff 1x 2023 Active 2023 Once daily Other False Butrans 5 mcg/hour transdermal patch 1 patch Transdermal Every 7 Days For Pain 1 patch 2023 Active 2023 66633 75050 4 Every week Transd ermal False Pantoprazol e 40 mg tablet,nu yed release [generic] 40 mg By Mouth Twice daily For gerd 40 mg 2023 Active 2023 65530 90679 0 Twice daily By Mouth False Scopolamine 1 mg over 3 days transdermal patch [generic] 1 Transdermal Every 72 hours For nausea 1 11/21 Active 2023 73620 08749 4 Every 72 hours Transd ermal False Ondansetron 4 mg disintegrat ing tablet [generic] 11/14 Inactiv e 2023 71758 32355 4 Ondansetron 4 mg disintegrat ing tablet [generic] 4 mg By Mouth Every 8 hours For Nausea 4 mg 2023 Active 2023 03875 48595 4 Every 8 hours By Mouth False Miralax 17 gram oral powder packet 8.5 g (1/2 capful) By Mouth Once daily For constipation 8.5 g 11/18 Inactiv e 2023 52212 40994 6 Once daily By Mouth False Pioglitazon e 15 mg tablet [generic] 11/14 Inactiv e 2023 63164 21365 1 E11.9 Pioglitazon e 15 mg tablet [generic] 7.5mg ( half a tab) By Mouth Once daily For TYPE 2 DIABETES MELLITUS WITHOUT COMPLICATIONS 7.5mg 2023 Active 2023 86569 76652 1 Once daily By Mouth E11.9 False Mylanta Coat-Cool 1,200 mg-270 mg-80 mg/10 mL oral suspension 10 ml By Mouth Every 8 hours As Needed For heartburn, indigestion, gas 10 ml 2023 Active 2023 08525 31944 1 Every 8 hours By Mouth False Prochlorper azine maleate 5 mg tablet [generic] 5 mg By Mouth Every 8 hours as needed For Nausea 5 mg 2023 Active 2023 77088 94632 1 Every 8 hours as needed By Mouth False Potassium chloride ER 10 mEq capsule,ext ended release [generic] 10 meq By Mouth 4 times a day For Hypokalemia 10 meq 2023 Active 2023 33809 66324 1 4 times a day By Mouth False Lorazepam 0.5 mg tablet [generic] 11/18 Inactiv e 2023 34790 78311 0 Lorazepam 0.5 mg tablet [generic] 0.5 mg By Mouth Every 8 hours as needed For Anxiety 0.5 mg 12/18 Active 2023 42777 76281 0 Every 8 hours as needed By Mouth False Flomax 0.4 mg capsule 11/18 Inactiv e 2023 89839 72215 1 Flomax 0.4 mg capsule 0.4 mg By Mouth Once daily For Urinary retention 0.4 mg 2023 Active 2023 22686 77490 1 Once daily By Mouth False Oxycodone 5 mg tablet [generic] 11/18 Inactiv e 2023 17763 81733 1 Oxycodone 5 mg tablet [generic] 5 mg By Mouth Every 6 hours as needed For Back Pain 5 mg 2023 Active 2023 90984 74472 1 Every 6 hours as needed By Mouth False Cipro 250 mg tablet 250 mg By Mouth Twice daily For UTI 250 mg 2023 Active 2023 25603 01238 1 Twice daily By Mouth False Senna 8.6 mg tablet 17.2 mg By Mouth Twice daily For Constipation 17.2 mg 2023 Active 2023 49285 80595 1 Twice daily By Mouth False Zyprexa 2.5 mg tablet 2.5 mg By Mouth At bedtime For persistent nausea 2.5 mg 2023 Active 2023 62886 0 At bedtime By Mouth False Problems [...] Temperature SpO2 Blood Sugar Pulse Respirations 8 58028 5 75.00 mm[Hg] - Sitting 140.00 mm[Hg] - Sitting 65 NI 98.00 Tympanic 95.00 % 102.00 /min 18.00/min 86492 918 07279 9 918 80759 2 75.00 mm[Hg] - Sitting 140.00 mm[Hg] - Sitting 98.00 Tympanic 102.00 /min 18.00/min 85842 918 35400 3 85241 918 11626 1 72.00 mm[Hg] - Sitting 138.00 mm[Hg] - Sitting 98.40 Tympanic 8 06919 4 88.00/ min 18.00/min 919 00802 4 71.00 mm[Hg] - Sitting 115.00 mm[Hg] - Sitting 98.30 Tympanic 97.00 % 86.00/ min 16.00/min 919 76215 0 71.00 mm[Hg] - Sitting 115.00 mm[Hg] - Sitting 98.30 Tympanic 86.00/ min 16.00/min 36031 919 76851 7 71.00 mm[Hg] - Sitting 115.00 mm[Hg] - Sitting 98.30 Tympanic 86.00/ min 16.00/min 08609 920 40496 6 72.00 mm[Hg] - Sitting 112.00 mm[Hg] - Sitting 98.10 Tympanic 82.00/ min 18.00/min 920 69821 0 75.00 mm[Hg] - Sitting 130.00 mm[Hg] - Sitting 98.40 Forehead Scan 93.00 % 88.00/ min 18.00/min 920 48451 2 75.00 mm[Hg] - Lying Down 130.00 mm[Hg] - Lying Down 98.40 Tympanic 88.00/ min 18.00/min 81080 920 12986 5 75.00 mm[Hg] - Lying Down 130.00 mm[Hg] - Lying Down 98.40 Tympanic 88.00/ min 18.00/min 920 70153 6 199.00 NI 920 28707 3 75.00 mm[Hg] - Sitting 130.00 mm[Hg] - Sitting 98.40 Tympanic 88.00/ min 18.00/min 94873 921 57269 1 71.00 mm[Hg] - Lying Down 119.00 mm[Hg] - Lying Down 98.40 Forehead Scan 96.00 % 83.00/ min 16.00/min 52836 922 34914 6 71.00 mm[Hg] - Lying Down 128.00 mm[Hg] - Lying Down 98.30 Forehead Scan 94.00 % 84.00/ min 18.00/min 58529 923 10527 4 63.00 mm[Hg] - Sitting 105.00 mm[Hg] - Sitting 98.20 Tympanic 93.00 % 93.00/ min 18.00/min 03154 924 63088 8 66.00 mm[Hg] - Sitting 104.00 mm[Hg] - Sitting 98.20 Tympanic 98.00 % 84.00/ min 16.00/min
--- OUTSIDE RECORDS SUMMARY | 2023-12-13 23:58 | External Medical Summary | Continuity Of Care Document ---
Author Name Unknown Address [address] [place] [address] [facility] [place] () Care Team Providers Care Laundry Housekeeping Aide Name Role Phone DO Parson Amy Primary Care Provider [phone] Allergies Allergy Reaction Start Date End Date [...] 3 0.1 mL 11/13 Inactiv e 2023 87848 22520 0 1 time Intrad ermal False Tubersol 5 tub. unit/0.1 mL intradermal injection solution [Tuberculin PPD] 0.1mL Intradermal 1 time For PPD 2nd Step Give 2nd Step PPD Day 1 and Read results Day 3 (schedule 7 days after 1st READ) 0.1mL 11/13 Inactiv e 2023 42692 26670 0 1 time Intrad ermal False DISCONTINUE as of 11/14/2023: Tubersol 5 tub. unit/0.1 mL intradermal injection solution [Tuberculin PPD] 11/13 Inactiv e 2023 21722 30083 0 Tubersol 5 tub. unit/0.1 mL intradermal injection solution 0.1 mL Intradermal 1 time For PPD Step 1 GIVE on Day 1 and read results Day 3 0.1 mL 11/16 Inactiv e 2023 00900 62602 1 1 time Intrad ermal False DISCONTINUE as of 11/14/2023: Tubersol 5 tub. unit/0.1 mL intradermal injection solution [Tuberculin PPD] 11/13 Inactiv e 2023 29030 36274 0 Tubersol 5 tub. unit/0.1 mL intradermal injection solution 0.1mL Intradermal 1 time For PPD 2nd Step Give 2nd Step PPD Day 1 and Read results Day 3 (schedule 7 days after 1st READ) 0.1mL 11/25 Active 2023 74371 53460 1 1 time Intrad ermal False Tylenol 325 mg tablet 2 tabs By Mouth Every 4 hours as needed For Pain DO NOT EXCEED 3000 MG APAP/24 Hours 2 tabs 202300 /0000 Active 2023 19375 07494 0 Every 4 hours as needed By Mouth False Tylenol 325 mg tablet 2 tabs By Mouth Every 4 hours as needed For Fever >100 DO NOT EXCEED 3000 MG APAP/24 Hours 2 tabs 202300 /0000 Active 2023 49391 41419 0 Every 4 hours as needed By Mouth False Dulcolax (bisacodyl) 10 mg rectal suppository One Suppository per rectum PRN if Milk of Magnisia ineffective. Give on day 5 of no BM 1 sup 2023 Active 2023 58852 33623 1 Daily as needed Rectal False Fleet Enema 19 gram-7 gram/118 mL Administer per rectum PRN one time if dulcolax suppository not effective. Give on day 6 of no BM 1 202300 0000 Active 2023 86772 16999 6 Daily as needed Rectal False Dextrose 50 % in water (D50W) intravenous solution [generic] Dextrose 50% reyes 20-50 ml (slow push) Intravenous if Glucagon not effective after 15 minutes. CALL 911 for ED Evaluation. 50% reyes 202300 /0000 Active 2023 55858 71352 9 Intrav enous False Glucagon (HCl) Emergency Kit 1 mg solution for injection Administer Glucagon 1 mg Intramuscular if 15 minutes after GLucose Gel is administered Glucose remains less than 70 1 mg 2023 Active 2023 50034 11943 2 Intram uscula r False Glucose Gel 40 % oral gel [Dextrose] PRN If resident is unable to swallow (with or without symptoms) and Glucose results less than 70 give GLucose 40% Gel 1 tube orally - Recheck Glucose 15 minutes after administratio n. 1 tube 2023 Active 2023 13010 23672 8 By Mouth False Lorazepam 0.5 mg tablet [generic] 0.5 mg By Mouth Every 8 hours as needed For Anxiety 0.5 mg 11/18 Inactiv e 2023 06051 92566 0 Every 8 hours as needed By Mouth False Potassium chloride ER 20 mEq tablet,exte nded release [generic] 40 meq By Mouth Once daily For Hypokalemia 40 meq 11/13 Inactiv e 2023 49133 79353 1 Once daily By Mouth False Colesevelam 625 mg tablet [generic] 1250 mg By Mouth Twice daily For TYPE 2 DIABETES MELLITUS WITHOUT COMPLICATIONS 1250 mg 2023 Active 2023 04919 92811 1 Twice daily By Mouth E11.9 False Pioglitazon e 15 mg tablet [generic] 15 mg By Mouth Once daily For TYPE 2 DIABETES MELLITUS WITHOUT COMPLICATIONS 15 mg 11/14 Inactiv e 2023 79037 83070 1 Once daily By Mouth E11.9 False Cholecalcif hardeep (vitamin D3) 50 mcg (2,000 unit) tablet [generic] 50 mcg By Mouth Once daily For Supplement 50 mcg 2023 Active 2023 80592 56948 1 Once daily By Mouth False Colchicine 0.6 mg tablet [generic] 0.6 mg By Mouth Twice daily As Needed For Gout 0.6 mg 2023 Active 2023 92822 46595 4 Twice daily By Mouth False Levothyroxi ne 200 mcg tablet [generic] 200 mcg By Mouth Once daily For Hypothyroidis m 200 mcg 2023 0000 0000 Active 2023 78127 37240 0 Once daily By Mouth False Ondansetron 4 mg disintegrat ing tablet [generic] 4 mg By Mouth Every 6 hours as needed For Nausea 4 mg 11/12 Inactiv e 2023 98773 88914 4 Every 6 hours as needed By Mouth False Docusate sodium 100 mg capsule [generic] 100 mg By Mouth Twice daily For Constipation 100 mg 202300 Active 2023 63033 99733 1 Twice daily By Mouth False Oxycodone 5 mg tablet [generic] 5 mg By Mouth Every 6 hours as needed For Pain 5 mg 11/12 Inactiv e 2023 63589 02226 1 Every 6 hours as needed By Mouth False Oxycodone 5 mg tablet [generic] 5 mg By Mouth Every 6 hours as needed For Pain 5 mg 11/18 Inactiv e 2023 21555 55233 1 Every 6 hours as needed By Mouth False Milk of Magnesia 400 mg/5 mL oral suspension 30 ml By Mouth one time per day as needed if no BM x 3 days For Constipation 30 ml 202300 Active 2023 97057 71530 2 By Mouth False Ondansetron 4 mg disintegrat ing tablet [generic] 11/12 Inactiv e 2023 42833 76665 4 Ondansetron 4 mg disintegrat ing tablet [generic] 4 mg By Mouth Every 6 hours as needed For Nausea 4 mg 11/14 Inactiv e 2023 05000 21890 4 Every 6 hours as needed By Mouth False Potassium chloride ER 10 mEq capsule,ext ended release [generic] 40 mEq By Mouth Once daily For hypokalemia 40 mEq 11/17 Inactiv e 2023 49003 59999 1 Once daily By Mouth False Potassium chloride ER 10 mEq capsule,ext ended release [generic] 4 capsules By Mouth At bedtime For hypokalemia 4 capsule s 11/16 Inactiv e 2023 48837 73384 1 At bedtime By Mouth False Flomax 0.4 mg capsule 0.4 mg By Mouth At bedtime For Urinary retention 0.4 mg 11/18 Inactiv e 2023 66155 90383 1 At bedtime By Mouth False STOOL CULTURE Once daily Obtain stool culture, add C. Diff to routine stool culture For Rule out C. Diff 1x 2023 Active 2023 Once daily Other False Butrans 5 mcg/hour transdermal patch 1 patch Transdermal Every 7 Days For Pain 1 patch 2023 Active 2023 55828 80311 4 Every week Transd ermal False Pantoprazol e 40 mg tablet,nu yed release [generic] 40 mg By Mouth Twice daily For gerd 40 mg 2023 Active 2023 52427 06943 0 Twice daily By Mouth False Scopolamine 1 mg over 3 days transdermal patch [generic] 1 Transdermal Every 72 hours For nausea 1 11/21 Active 2023 14566 39406 4 Every 72 hours Transd ermal False Ondansetron 4 mg disintegrat ing tablet [generic] 11/14 Inactiv e 2023 43800 50508 4 Ondansetron 4 mg disintegrat ing tablet [generic] 4 mg By Mouth Every 8 hours For Nausea 4 mg 2023 Active 2023 45733 93886 4 Every 8 hours By Mouth False Miralax 17 gram oral powder packet 8.5 g (1/2 capful) By Mouth Once daily For constipation 8.5 g 2023 Active 2023 69794 87128 6 Once daily By Mouth False Pioglitazon e 15 mg tablet [generic] 11/14 Inactiv e 2023 34654 64335 1 E11.9 Pioglitazon e 15 mg tablet [generic] 7.5mg ( half a tab) By Mouth Once daily For TYPE 2 DIABETES MELLITUS WITHOUT COMPLICATIONS 7.5mg 2023 Active 2023 94215 01119 1 Once daily By Mouth E11.9 False Mylanta Coat-Cool 1,200 mg-270 mg-80 mg/10 mL oral suspension 10 ml By Mouth Every 8 hours As Needed For heartburn, indigestion, gas 10 ml 2023 Active 2023 65777 94109 1 Every 8 hours By Mouth False Prochlorper azine maleate 5 mg tablet [generic] 5 mg By Mouth Every 8 hours as needed For Nausea 5 mg 2023 Active 2023 92953 24449 1 Every 8 hours as needed By Mouth False Potassium chloride ER 10 mEq capsule,ext ended release [generic] 10 meq By Mouth 4 times a day For Hypokalemia 10 meq 2023 Active 2023 37116 41245 1 4 times a day By Mouth False Lorazepam 0.5 mg tablet [generic] 11/18 Inactiv e 2023 86001 61605 0 Lorazepam 0.5 mg tablet [generic] 0.5 mg By Mouth Every 8 hours as needed For Anxiety 0.5 mg 12/18 Active 2023 24609 70128 0 Every 8 hours as needed By Mouth False Flomax 0.4 mg capsule 11/18 Inactiv e 2023 72287 14527 1 Flomax 0.4 mg capsule 0.4 mg By Mouth Once daily For Urinary retention 0.4 mg 2023 Active 2023 41597 79443 1 Once daily By Mouth False Oxycodone 5 mg tablet [generic] 11/18 Inactiv e 2023 27530 54494 1 Oxycodone 5 mg tablet [generic] 5 mg By Mouth Every 6 hours as needed For Back Pain 5 mg 2023 Active 2023 15364 48247 1 Every 6 hours as needed By Mouth False Problems [...] weight Temperature SpO2 Blood Sugar Pulse Respirations 42786 5 75.00 mm[Hg] - Sitting 140.00 mm[Hg] - Sitting 65 NI 98.00 Tympanic 95.00 % 102.00 /min 18.00/min 8 18482 9 08844 2 75.00 mm[Hg] - Sitting 140.00 mm[Hg] - Sitting 98.00 Tympanic 102.00 /min 18.00/min 918 37436 3 8 29357 1 72.00 mm[Hg] - Sitting 138.00 mm[Hg] - Sitting 98.40 Tympanic 44351 4 88.00/ min 18.00/min 56665 919 21310 4 71.00 mm[Hg] - Sitting 115.00 mm[Hg] - Sitting 98.30 Tympanic 97.00 % 86.00/ min 16.00/min 30853 919 40411 0 71.00 mm[Hg] - Sitting 115.00 mm[Hg] - Sitting 98.30 Tympanic 86.00/ min 16.00/min 73166 919 88591 7 71.00 mm[Hg] - Sitting 115.00 mm[Hg] - Sitting 98.30 Tympanic 86.00/ min 16.00/min 17048 920 45340 6 72.00 mm[Hg] - Sitting 112.00 mm[Hg] - Sitting 98.10 Tympanic 82.00/ min 18.00/min 31634 920 21916 0 75.00 mm[Hg] - Sitting 130.00 mm[Hg] - Sitting 98.40 Forehead Scan 93.00 % 88.00/ min 18.00/min 31584 920 28566 2 75.00 mm[Hg] - Lying Down 130.00 mm[Hg] - Lying Down 98.40 Tympanic 88.00/ min 18.00/min 59991 920 60720 5 75.00 mm[Hg] - Lying Down 130.00 mm[Hg] - Lying Down 98.40 Tympanic 88.00/ min 18.00/min 48744 920 30843 6 199.00 [place] [address] 920 16644 3 75.00 mm[Hg] - Sitting 130.00 mm[Hg] - Sitting 98.40 Tympanic 88.00/ min 18.00/min 56441 921 85884 1 71.00 mm[Hg] - Lying Down 119.00 mm[Hg] - Lying Down 98.40 Forehead Scan 96.00 % 83.00/ min 16.00/min 84427 922 15468 6 71.00 mm[Hg] - Lying Down 128.00 mm[Hg] - Lying Down 98.30 Forehead Scan 94.00 % 84.00/ min 18.00/min 32190 923 62490 4 63.00 mm[Hg] - Sitting 105.00 mm[Hg] - Sitting 98.20 Tympanic 93.00 % 93.00/ min 18.00/min
--- OUTSIDE RECORDS SUMMARY | 2023-12-13 23:58 | External Medical Summary | Continuity Of Care Document ---
Author Name Unknown Address [address] [place] [address] [facility] [place] () Care Team Providers Care Wood Crew Supervisor Name Role Phone DO Parson Amy Primary Care Provider [phone] Allergies Allergy Reaction Start Date End Date [...] 3 0.1 mL 11/13 Inactiv e 2023 76276 98571 0 1 time Intrad ermal False Tubersol 5 tub. unit/0.1 mL intradermal injection solution [Tuberculin PPD] 0.1mL Intradermal 1 time For PPD 2nd Step Give 2nd Step PPD Day 1 and Read results Day 3 (schedule 7 days after 1st READ) 0.1mL 11/13 Inactiv e 2023 55907 74723 0 1 time Intrad ermal False DISCONTINUE as of 11/14/2023: Tubersol 5 tub. unit/0.1 mL intradermal injection solution [Tuberculin PPD] 11/13 Inactiv e 2023 81060 95902 0 Tubersol 5 tub. unit/0.1 mL intradermal injection solution 0.1 mL Intradermal 1 time For PPD Step 1 GIVE on Day 1 and read results Day 3 0.1 mL 11/16 Inactiv e 2023 28793 78238 1 1 time Intrad ermal False DISCONTINUE as of 11/14/2023: Tubersol 5 tub. unit/0.1 mL intradermal injection solution [Tuberculin PPD] 11/13 Inactiv e 2023 21476 48901 0 Tubersol 5 tub. unit/0.1 mL intradermal injection solution 0.1mL Intradermal 1 time For PPD 2nd Step Give 2nd Step PPD Day 1 and Read results Day 3 (schedule 7 days after 1st READ) 0.1mL 11/25 Active 2023 26380 51497 1 1 time Intrad ermal False Tylenol 325 mg tablet 2 tabs By Mouth Every 4 hours as needed For Pain DO NOT EXCEED 3000 MG APAP/24 Hours 2 tabs 202300 /0000 Active 2023 31696 95867 0 Every 4 hours as needed By Mouth False Tylenol 325 mg tablet 2 tabs By Mouth Every 4 hours as needed For Fever >100 DO NOT EXCEED 3000 MG APAP/24 Hours 2 tabs 202300 /0000 Active 2023 84543 08368 0 Every 4 hours as needed By Mouth False Dulcolax (bisacodyl) 10 mg rectal suppository One Suppository per rectum PRN if Milk of Magnisia ineffective. Give on day 5 of no BM 1 sup 2023 Active 2023 02905 65545 1 Daily as needed Rectal False Fleet Enema 19 gram-7 gram/118 mL Administer per rectum PRN one time if dulcolax suppository not effective. Give on day 6 of no BM 1 202300 0000 Active 2023 73461 42716 6 Daily as needed Rectal False Dextrose 50 % in water (D50W) intravenous solution [generic] Dextrose 50% reyes 20-50 ml (slow push) Intravenous if Glucagon not effective after 15 minutes. CALL 911 for ED Evaluation. 50% reyes 202300 /0000 Active 2023 55231 59181 9 Intrav enous False Glucagon (HCl) Emergency Kit 1 mg solution for injection Administer Glucagon 1 mg Intramuscular if 15 minutes after GLucose Gel is administered Glucose remains less than 70 1 mg 2023 Active 2023 35061 73529 2 Intram uscula r False Glucose Gel 40 % oral gel [Dextrose] PRN If resident is unable to swallow (with or without symptoms) and Glucose results less than 70 give GLucose 40% Gel 1 tube orally - Recheck Glucose 15 minutes after administratio n. 1 tube 2023 Active 2023 81800 43211 8 By Mouth False Lorazepam 0.5 mg tablet [generic] 0.5 mg By Mouth Every 8 hours as needed For Anxiety 0.5 mg 11/18 Inactiv e 2023 00000 42058 0 Every 8 hours as needed By Mouth False Potassium chloride ER 20 mEq tablet,exte nded release [generic] 40 meq By Mouth Once daily For Hypokalemia 40 meq 11/13 Inactiv e 2023 42402 27281 1 Once daily By Mouth False Colesevelam 625 mg tablet [generic] 1250 mg By Mouth Twice daily For TYPE 2 DIABETES MELLITUS WITHOUT COMPLICATIONS 1250 mg 11/19 Inactiv e 2023 01338 49178 1 Twice daily By Mouth E11.9 False Pioglitazon e 15 mg tablet [generic] 15 mg By Mouth Once daily For TYPE 2 DIABETES MELLITUS WITHOUT COMPLICATIONS 15 mg 11/14 Inactiv e 2023 74967 16371 1 Once daily By Mouth E11.9 False Cholecalcif hardeep (vitamin D3) 50 mcg (2,000 unit) tablet [generic] 50 mcg By Mouth Once daily For Supplement 50 mcg 2023 Active 2023 94431 03811 1 Once daily By Mouth False Colchicine 0.6 mg tablet [generic] 0.6 mg By Mouth Twice daily As Needed For Gout 0.6 mg 2023 Active 2023 46605 37719 4 Twice daily By Mouth False Levothyroxi ne 200 mcg tablet [generic] 200 mcg By Mouth Once daily For Hypothyroidis m 200 mcg 202300 0000 Active 2023 97364 69270 0 Once daily By Mouth False Ondansetron 4 mg disintegrat ing tablet [generic] 4 mg By Mouth Every 6 hours as needed For Nausea 4 mg 11/12 Inactiv e 2023 77373 59084 4 Every 6 hours as needed By Mouth False Docusate sodium 100 mg capsule [generic] 100 mg By Mouth Twice daily For Constipation 100 mg 202300 0000 Active 2023 03673 84132 1 Twice daily By Mouth False Oxycodone 5 mg tablet [generic] 5 mg By Mouth Every 6 hours as needed For Pain 5 mg 11/12 Inactiv e 2023 07784 89200 1 Every 6 hours as needed By Mouth False Oxycodone 5 mg tablet [generic] 5 mg By Mouth Every 6 hours as needed For Pain 5 mg 11/18 Inactiv e 2023 12219 52843 1 Every 6 hours as needed By Mouth False Milk of Magnesia 400 mg/5 mL oral suspension 30 ml By Mouth one time per day as needed if no BM x 3 days For Constipation 30 ml 202300 Active 2023 34798 37037 2 By Mouth False Ondansetron 4 mg disintegrat ing tablet [generic] 11/12 Inactiv e 2023 64993 88700 4 Ondansetron 4 mg disintegrat ing tablet [generic] 4 mg By Mouth Every 6 hours as needed For Nausea 4 mg 11/14 Inactiv e 2023 24031 09443 4 Every 6 hours as needed By Mouth False Potassium chloride ER 10 mEq capsule,ext ended release [generic] 40 mEq By Mouth Once daily For hypokalemia 40 mEq 11/17 Inactiv e 2023 75356 67968 1 Once daily By Mouth False Potassium chloride ER 10 mEq capsule,ext ended release [generic] 4 capsules By Mouth At bedtime For hypokalemia 4 capsule s 11/16 Inactiv e 2023 69419 97539 1 At bedtime By Mouth False Flomax 0.4 mg capsule 0.4 mg By Mouth At bedtime For Urinary retention 0.4 mg 11/18 Inactiv e 2023 78763 78700 1 At bedtime By Mouth False STOOL CULTURE Once daily Obtain stool culture, add C. Diff to routine stool culture For Rule out C. Diff 1x 2023 Active 2023 Once daily Other False Butrans 5 mcg/hour transdermal patch 1 patch Transdermal Every 7 Days For Pain 1 patch 2023 Active 2023 30756 05854 4 Every week Transd ermal False Pantoprazol e 40 mg tablet,nu yed release [generic] 40 mg By Mouth Twice daily For gerd 40 mg 2023 Active 2023 38106 92942 0 Twice daily By Mouth False Scopolamine 1 mg over 3 days transdermal patch [generic] 1 Transdermal Every 72 hours For nausea 1 11/21 Active 2023 58369 63522 4 Every 72 hours Transd ermal False Ondansetron 4 mg disintegrat ing tablet [generic] 11/14 Inactiv e 2023 24816 79164 4 Ondansetron 4 mg disintegrat ing tablet [generic] 4 mg By Mouth Every 8 hours For Nausea 4 mg 2023 Active 2023 50225 88471 4 Every 8 hours By Mouth False Miralax 17 gram oral powder packet 8.5 g (1/2 capful) By Mouth Once daily For constipation 8.5 g 11/18 Inactiv e 2023 33257 60716 6 Once daily By Mouth False Pioglitazon e 15 mg tablet [generic] 11/14 Inactiv e 2023 82595 29384 1 E11.9 Pioglitazon e 15 mg tablet [generic] 7.5mg ( half a tab) By Mouth Once daily For TYPE 2 DIABETES MELLITUS WITHOUT COMPLICATIONS 7.5mg 2023 Active 2023 52410 47873 1 Once daily By Mouth E11.9 False Mylanta Coat-Cool 1,200 mg-270 mg-80 mg/10 mL oral suspension 10 ml By Mouth Every 8 hours As Needed For heartburn, indigestion, gas 10 ml 2023 Active 2023 52308 95420 1 Every 8 hours By Mouth False Prochlorper azine maleate 5 mg tablet [generic] 5 mg By Mouth Every 8 hours as needed For Nausea 5 mg 2023 Active 2023 29218 10220 1 Every 8 hours as needed By Mouth False Potassium chloride ER 10 mEq capsule,ext ended release [generic] 10 meq By Mouth 4 times a day For Hypokalemia 10 meq 2023 Active 2023 90490 59443 1 4 times a day By Mouth False Lorazepam 0.5 mg tablet [generic] 11/18 Inactiv e 2023 48795 25139 0 Lorazepam 0.5 mg tablet [generic] 0.5 mg By Mouth Every 8 hours as needed For Anxiety 0.5 mg 12/18 Active 2023 60542 01142 0 Every 8 hours as needed By Mouth False Flomax 0.4 mg capsule 11/18 Inactiv e 2023 45080 32042 1 Flomax 0.4 mg capsule 0.4 mg By Mouth Once daily For Urinary retention 0.4 mg 2023 Active 2023 87661 94087 1 Once daily By Mouth False Oxycodone 5 mg tablet [generic] 11/18 Inactiv e 2023 79839 37836 1 Oxycodone 5 mg tablet [generic] 5 mg By Mouth Every 6 hours as needed For Back Pain 5 mg 2023 Active 2023 70194 69017 1 Every 6 hours as needed By Mouth False Cipro 250 mg tablet 250 mg By Mouth Twice daily For UTI 250 mg 2023 Active 2023 14640 94311 1 Twice daily By Mouth False Senna 8.6 mg tablet 17.2 mg By Mouth Twice daily For Constipation 17.2 mg 2023 Active 2023 77092 11952 1 Twice daily By Mouth False Zyprexa 2.5 mg tablet 2.5 mg By Mouth At bedtime For persistent nausea 2.5 mg 2023 Active 2023 15960 0 At bedtime By Mouth False Problems [...] Temperature SpO2 Blood Sugar Pulse Respirations 8 38715 5 75.00 mm[Hg] - Sitting 140.00 mm[Hg] - Sitting 65 NI 98.00 Tympanic 95.00 % 102.00 /min 18.00/min 48899 918 93099 9 918 94822 2 75.00 mm[Hg] - Sitting 140.00 mm[Hg] - Sitting 98.00 Tympanic 102.00 /min 18.00/min 80895 918 60292 3 83737 918 55069 1 72.00 mm[Hg] - Sitting 138.00 mm[Hg] - Sitting 98.40 Tympanic 8 71220 4 88.00/ min 18.00/min 919 78720 4 71.00 mm[Hg] - Sitting 115.00 mm[Hg] - Sitting 98.30 Tympanic 97.00 % 86.00/ min 16.00/min 919 39680 0 71.00 mm[Hg] - Sitting 115.00 mm[Hg] - Sitting 98.30 Tympanic 86.00/ min 16.00/min 32682 919 94899 7 71.00 mm[Hg] - Sitting 115.00 mm[Hg] - Sitting 98.30 Tympanic 86.00/ min 16.00/min 06009 920 11221 6 72.00 mm[Hg] - Sitting 112.00 mm[Hg] - Sitting 98.10 Tympanic 82.00/ min 18.00/min 920 20534 0 75.00 mm[Hg] - Sitting 130.00 mm[Hg] - Sitting 98.40 Forehead Scan 93.00 % 88.00/ min 18.00/min 920 33812 2 75.00 mm[Hg] - Lying Down 130.00 mm[Hg] - Lying Down 98.40 Tympanic 88.00/ min 18.00/min 93697 920 28383 5 75.00 mm[Hg] - Lying Down 130.00 mm[Hg] - Lying Down 98.40 Tympanic 88.00/ min 18.00/min 920 91391 6 199.00 NI 920 65707 3 75.00 mm[Hg] - Sitting 130.00 mm[Hg] - Sitting 98.40 Tympanic 88.00/ min 18.00/min 77604 921 29174 1 71.00 mm[Hg] - Lying Down 119.00 mm[Hg] - Lying Down 98.40 Forehead Scan 96.00 % 83.00/ min 16.00/min 09236 922 92291 6 71.00 mm[Hg] - Lying Down 128.00 mm[Hg] - Lying Down 98.30 Forehead Scan 94.00 % 84.00/ min 18.00/min 17463 923 61544 4 63.00 mm[Hg] - Sitting 105.00 mm[Hg] - Sitting 98.20 Tympanic 93.00 % 93.00/ min 18.00/min 21602 924 04148 8 66.00 mm[Hg] - Sitting 104.00 mm[Hg] - Sitting 98.20 Tympanic 98.00 % 84.00/ min 16.00/min
--- OUTSIDE RECORDS SUMMARY | 2023-12-13 23:58 | External Medical Summary | Continuity Of Care Document ---
Author Name Unknown Address [address] [place] [address] Organization [facility] [place] () Care Team Providers Care Finishing Area Operator Name Role Phone DO Parson Amy Primary Care Provider [phone] Allergies Allergy Reaction Start Date End Date [...] 3 0.1 mL 11/13 Inactiv e 2023 43230 65522 0 1 time Intrad ermal False Tubersol 5 tub. unit/0.1 mL intradermal injection solution [Tuberculin PPD] 0.1mL Intradermal 1 time For PPD 2nd Step Give 2nd Step PPD Day 1 and Read results Day 3 (schedule 7 days after 1st READ) 0.1mL 11/13 Inactiv e 2023 40904 53781 0 1 time Intrad ermal False DISCONTINUE as of 11/14/2023: Tubersol 5 tub. unit/0.1 mL intradermal injection solution [Tuberculin PPD] 11/13 Inactiv e 2023 41892 57777 0 Tubersol 5 tub. unit/0.1 mL intradermal injection solution 0.1 mL Intradermal 1 time For PPD Step 1 GIVE on Day 1 and read results Day 3 0.1 mL 11/16 Inactiv e 2023 26205 19816 1 1 time Intrad ermal False DISCONTINUE as of 11/14/2023: Tubersol 5 tub. unit/0.1 mL intradermal injection solution [Tuberculin PPD] 11/13 Inactiv e 2023 62214 63013 0 Tubersol 5 tub. unit/0.1 mL intradermal injection solution 0.1mL Intradermal 1 time For PPD 2nd Step Give 2nd Step PPD Day 1 and Read results Day 3 (schedule 7 days after 1st READ) 0.1mL 11/25 Active 2023 91592 21751 1 1 time Intrad ermal False Tylenol 325 mg tablet 2 tabs By Mouth Every 4 hours as needed For Pain DO NOT EXCEED 3000 MG APAP/24 Hours 2 tabs 202300 /0000 Active 2023 93203 44693 0 Every 4 hours as needed By Mouth False Tylenol 325 mg tablet 2 tabs By Mouth Every 4 hours as needed For Fever >100 DO NOT EXCEED 3000 MG APAP/24 Hours 2 tabs 202300 /0000 Active 2023 11801 57698 0 Every 4 hours as needed By Mouth False Dulcolax (bisacodyl) 10 mg rectal suppository One Suppository per rectum PRN if Milk of Magnisia ineffective. Give on day 5 of no BM 1 sup 2023 Active 2023 25982 36076 1 Daily as needed Rectal False Fleet Enema 19 gram-7 gram/118 mL Administer per rectum PRN one time if dulcolax suppository not effective. Give on day 6 of no BM 1 202300 0000 Active 2023 90244 01055 6 Daily as needed Rectal False Dextrose 50 % in water (D50W) intravenous solution [generic] Dextrose 50% reyes 20-50 ml (slow push) Intravenous if Glucagon not effective after 15 minutes. CALL 911 for ED Evaluation. 50% reyes 202300 /0000 Active 2023 88607 71300 9 Intrav enous False Glucagon (HCl) Emergency Kit 1 mg solution for injection Administer Glucagon 1 mg Intramuscular if 15 minutes after GLucose Gel is administered Glucose remains less than 70 1 mg 2023 Active 2023 55483 88237 2 Intram uscula r False Glucose Gel 40 % oral gel [Dextrose] PRN If resident is unable to swallow (with or without symptoms) and Glucose results less than 70 give GLucose 40% Gel 1 tube orally - Recheck Glucose 15 minutes after administratio n. 1 tube 2023 Active 2023 28426 24793 8 By Mouth False Lorazepam 0.5 mg tablet [generic] 0.5 mg By Mouth Every 8 hours as needed For Anxiety 0.5 mg 11/18 Inactiv e 2023 53092 98474 0 Every 8 hours as needed By Mouth False Potassium chloride ER 20 mEq tablet,exte nded release [generic] 40 meq By Mouth Once daily For Hypokalemia 40 meq 11/13 Inactiv e 2023 40700 44342 1 Once daily By Mouth False Colesevelam 625 mg tablet [generic] 1250 mg By Mouth Twice daily For TYPE 2 DIABETES MELLITUS WITHOUT COMPLICATIONS 1250 mg 11/19 Inactiv e 2023 57378 89275 1 Twice daily By Mouth E11.9 False Pioglitazon e 15 mg tablet [generic] 15 mg By Mouth Once daily For TYPE 2 DIABETES MELLITUS WITHOUT COMPLICATIONS 15 mg 11/14 Inactiv e 2023 22649 19430 1 Once daily By Mouth E11.9 False Cholecalcif hardeep (vitamin D3) 50 mcg (2,000 unit) tablet [generic] 50 mcg By Mouth Once daily For Supplement 50 mcg 2023 Active 2023 17664 33410 1 Once daily By Mouth False Colchicine 0.6 mg tablet [generic] 0.6 mg By Mouth Twice daily As Needed For Gout 0.6 mg 2023 Active 2023 98719 96298 4 Twice daily By Mouth False Levothyroxi ne 200 mcg tablet [generic] 200 mcg By Mouth Once daily For Hypothyroidis m 200 mcg 202300 0000 Active 2023 43926 09561 0 Once daily By Mouth False Ondansetron 4 mg disintegrat ing tablet [generic] 4 mg By Mouth Every 6 hours as needed For Nausea 4 mg 11/12 Inactiv e 2023 95788 64633 4 Every 6 hours as needed By Mouth False Docusate sodium 100 mg capsule [generic] 100 mg By Mouth Twice daily For Constipation 100 mg 202300 0000 Active 2023 77238 87125 1 Twice daily By Mouth False Oxycodone 5 mg tablet [generic] 5 mg By Mouth Every 6 hours as needed For Pain 5 mg 11/12 Inactiv e 2023 19336 05531 1 Every 6 hours as needed By Mouth False Oxycodone 5 mg tablet [generic] 5 mg By Mouth Every 6 hours as needed For Pain 5 mg 11/18 Inactiv e 2023 58579 99260 1 Every 6 hours as needed By Mouth False Milk of Magnesia 400 mg/5 mL oral suspension 30 ml By Mouth one time per day as needed if no BM x 3 days For Constipation 30 ml 202300 Active 2023 05846 65086 2 By Mouth False Ondansetron 4 mg disintegrat ing tablet [generic] 11/12 Inactiv e 2023 30968 61966 4 Ondansetron 4 mg disintegrat ing tablet [generic] 4 mg By Mouth Every 6 hours as needed For Nausea 4 mg 11/14 Inactiv e 2023 59029 09716 4 Every 6 hours as needed By Mouth False Potassium chloride ER 10 mEq capsule,ext ended release [generic] 40 mEq By Mouth Once daily For hypokalemia 40 mEq 11/17 Inactiv e 2023 43011 96896 1 Once daily By Mouth False Potassium chloride ER 10 mEq capsule,ext ended release [generic] 4 capsules By Mouth At bedtime For hypokalemia 4 capsule s 11/16 Inactiv e 2023 31223 06295 1 At bedtime By Mouth False Flomax 0.4 mg capsule 0.4 mg By Mouth At bedtime For Urinary retention 0.4 mg 11/18 Inactiv e 2023 38388 81100 1 At bedtime By Mouth False STOOL CULTURE Once daily Obtain stool culture, add C. Diff to routine stool culture For Rule out C. Diff 1x 2023 Active 2023 Once daily Other False Butrans 5 mcg/hour transdermal patch 1 patch Transdermal Every 7 Days For Pain 1 patch 2023 Active 2023 32964 59159 4 Every week Transd ermal False Pantoprazol e 40 mg tablet,nu yed release [generic] 40 mg By Mouth Twice daily For gerd 40 mg 2023 Active 2023 42507 33026 0 Twice daily By Mouth False Scopolamine 1 mg over 3 days transdermal patch [generic] 1 Transdermal Every 72 hours For nausea 1 11/21 Active 2023 73852 96723 4 Every 72 hours Transd ermal False Ondansetron 4 mg disintegrat ing tablet [generic] 11/14 Inactiv e 2023 71387 14528 4 Ondansetron 4 mg disintegrat ing tablet [generic] 4 mg By Mouth Every 8 hours For Nausea 4 mg 2023 Active 2023 73679 98521 4 Every 8 hours By Mouth False Miralax 17 gram oral powder packet 8.5 g (1/2 capful) By Mouth Once daily For constipation 8.5 g 11/18 Inactiv e 2023 70524 14725 6 Once daily By Mouth False Pioglitazon e 15 mg tablet [generic] 11/14 Inactiv e 2023 25402 56527 1 E11.9 Pioglitazon e 15 mg tablet [generic] 7.5mg ( half a tab) By Mouth Once daily For TYPE 2 DIABETES MELLITUS WITHOUT COMPLICATIONS 7.5mg 2023 Active 2023 50357 47177 1 Once daily By Mouth E11.9 False Mylanta Coat-Cool 1,200 mg-270 mg-80 mg/10 mL oral suspension 10 ml By Mouth Every 8 hours As Needed For heartburn, indigestion, gas 10 ml 2023 Active 2023 72369 51749 1 Every 8 hours By Mouth False Prochlorper azine maleate 5 mg tablet [generic] 5 mg By Mouth Every 8 hours as needed For Nausea 5 mg 2023 Active 2023 68921 16072 1 Every 8 hours as needed By Mouth False Potassium chloride ER 10 mEq capsule,ext ended release [generic] 10 meq By Mouth 4 times a day For Hypokalemia 10 meq 2023 Active 2023 90560 88580 1 4 times a day By Mouth False Lorazepam 0.5 mg tablet [generic] 11/18 Inactiv e 2023 25074 10318 0 Lorazepam 0.5 mg tablet [generic] 0.5 mg By Mouth Every 8 hours as needed For Anxiety 0.5 mg 12/18 Active 2023 67703 83105 0 Every 8 hours as needed By Mouth False Flomax 0.4 mg capsule 11/18 Inactiv e 2023 79785 28018 1 Flomax 0.4 mg capsule 0.4 mg By Mouth Once daily For Urinary retention 0.4 mg 2023 Active 2023 76747 81697 1 Once daily By Mouth False Oxycodone 5 mg tablet [generic] 11/18 Inactiv e 2023 79731 22367 1 Oxycodone 5 mg tablet [generic] 5 mg By Mouth Every 6 hours as needed For Back Pain 5 mg 2023 Active 2023 71179 16074 1 Every 6 hours as needed By Mouth False Cipro 250 mg tablet 250 mg By Mouth Twice daily For UTI 250 mg 2023 Active 2023 83299 75277 1 Twice daily By Mouth False Senna 8.6 mg tablet 17.2 mg By Mouth Twice daily For Constipation 17.2 mg 2023 Active 2023 05372 17335 1 Twice daily By Mouth False Zyprexa 2.5 mg tablet 2.5 mg By Mouth At bedtime For persistent nausea 2.5 mg 2023 Active 2023 65312 0 At bedtime By Mouth False Problems [...] Temperature SpO2 Blood Sugar Pulse Respirations 8 51794 5 75.00 mm[Hg] - Sitting 140.00 mm[Hg] - Sitting 65 NI 98.00 Tympanic 95.00 % 102.00 /min 18.00/min 86598 918 86411 9 918 07029 2 75.00 mm[Hg] - Sitting 140.00 mm[Hg] - Sitting 98.00 Tympanic 102.00 /min 18.00/min 09565 918 23135 3 10740 918 20285 1 72.00 mm[Hg] - Sitting 138.00 mm[Hg] - Sitting 98.40 Tympanic 8 62148 4 88.00/ min 18.00/min 919 30912 4 71.00 mm[Hg] - Sitting 115.00 mm[Hg] - Sitting 98.30 Tympanic 97.00 % 86.00/ min 16.00/min 919 87706 0 71.00 mm[Hg] - Sitting 115.00 mm[Hg] - Sitting 98.30 Tympanic 86.00/ min 16.00/min 77725 919 72429 7 71.00 mm[Hg] - Sitting 115.00 mm[Hg] - Sitting 98.30 Tympanic 86.00/ min 16.00/min 70481 920 79570 6 72.00 mm[Hg] - Sitting 112.00 mm[Hg] - Sitting 98.10 Tympanic 82.00/ min 18.00/min 920 36626 0 75.00 mm[Hg] - Sitting 130.00 mm[Hg] - Sitting 98.40 Forehead Scan 93.00 % 88.00/ min 18.00/min 920 92832 2 75.00 mm[Hg] - Lying Down 130.00 mm[Hg] - Lying Down 98.40 Tympanic 88.00/ min 18.00/min 45725 920 06320 5 75.00 mm[Hg] - Lying Down 130.00 mm[Hg] - Lying Down 98.40 Tympanic 88.00/ min 18.00/min 920 72050 6 199.00 NI 920 67845 3 75.00 mm[Hg] - Sitting 130.00 mm[Hg] - Sitting 98.40 Tympanic 88.00/ min 18.00/min 35204 921 32174 1 71.00 mm[Hg] - Lying Down 119.00 mm[Hg] - Lying Down 98.40 Forehead Scan 96.00 % 83.00/ min 16.00/min 04106 922 54563 6 71.00 mm[Hg] - Lying Down 128.00 mm[Hg] - Lying Down 98.30 Forehead Scan 94.00 % 84.00/ min 18.00/min 67776 923 42116 4 63.00 mm[Hg] - Sitting 105.00 mm[Hg] - Sitting 98.20 Tympanic 93.00 % 93.00/ min 18.00/min 02415 924 48345 8 66.00 mm[Hg] - Sitting 104.00 mm[Hg] - Sitting 98.20 Tympanic 98.00 % 84.00/ min 16.00/min
--- OUTSIDE RECORDS SUMMARY | 2023-12-13 23:58 | External Medical Summary | Continuity Of Care Document ---
Author Name Unknown Address [address] [place] [address] Organization [facility] [place] () Care Team Providers Care Order Packer Or Packager Name Role Phone DO Parson Amy Primary Care Provider [phone] Allergies Allergy Reaction Start Date End Date [...] 3 0.1 mL 11/13 Inactiv e 2023 55282 61654 0 1 time Intrad ermal False Tubersol 5 tub. unit/0.1 mL intradermal injection solution [Tuberculin PPD] 0.1mL Intradermal 1 time For PPD 2nd Step Give 2nd Step PPD Day 1 and Read results Day 3 (schedule 7 days after 1st READ) 0.1mL 11/13 Inactiv e 2023 82826 74487 0 1 time Intrad ermal False DISCONTINUE as of 11/14/2023: Tubersol 5 tub. unit/0.1 mL intradermal injection solution [Tuberculin PPD] 11/13 Inactiv e 2023 99520 95439 0 Tubersol 5 tub. unit/0.1 mL intradermal injection solution 0.1 mL Intradermal 1 time For PPD Step 1 GIVE on Day 1 and read results Day 3 0.1 mL 11/16 Inactiv e 2023 54935 77749 1 1 time Intrad ermal False DISCONTINUE as of 11/14/2023: Tubersol 5 tub. unit/0.1 mL intradermal injection solution [Tuberculin PPD] 11/13 Inactiv e 2023 72186 16863 0 Tubersol 5 tub. unit/0.1 mL intradermal injection solution 0.1mL Intradermal 1 time For PPD 2nd Step Give 2nd Step PPD Day 1 and Read results Day 3 (schedule 7 days after 1st READ) 0.1mL 11/25 Active 2023 09758 12501 1 1 time Intrad ermal False Tylenol 325 mg tablet 2 tabs By Mouth Every 4 hours as needed For Pain DO NOT EXCEED 3000 MG APAP/24 Hours 2 tabs 202300 /0000 Active 2023 56902 02910 0 Every 4 hours as needed By Mouth False Tylenol 325 mg tablet 2 tabs By Mouth Every 4 hours as needed For Fever >100 DO NOT EXCEED 3000 MG APAP/24 Hours 2 tabs 202300 /0000 Active 2023 68243 68750 0 Every 4 hours as needed By Mouth False Dulcolax (bisacodyl) 10 mg rectal suppository One Suppository per rectum PRN if Milk of Magnisia ineffective. Give on day 5 of no BM 1 sup 2023 Active 2023 67619 41367 1 Daily as needed Rectal False Fleet Enema 19 gram-7 gram/118 mL Administer per rectum PRN one time if dulcolax suppository not effective. Give on day 6 of no BM 1 202300 0000 Active 2023 26170 58289 6 Daily as needed Rectal False Dextrose 50 % in water (D50W) intravenous solution [generic] Dextrose 50% reyes 20-50 ml (slow push) Intravenous if Glucagon not effective after 15 minutes. CALL 911 for ED Evaluation. 50% reyes 202300 /0000 Active 2023 62078 33038 9 Intrav enous False Glucagon (HCl) Emergency Kit 1 mg solution for injection Administer Glucagon 1 mg Intramuscular if 15 minutes after GLucose Gel is administered Glucose remains less than 70 1 mg 2023 Active 2023 73748 30880 2 Intram uscula r False Glucose Gel 40 % oral gel [Dextrose] PRN If resident is unable to swallow (with or without symptoms) and Glucose results less than 70 give GLucose 40% Gel 1 tube orally - Recheck Glucose 15 minutes after administratio n. 1 tube 2023 Active 2023 37270 34700 8 By Mouth False Lorazepam 0.5 mg tablet [generic] 0.5 mg By Mouth Every 8 hours as needed For Anxiety 0.5 mg 11/18 Inactiv e 2023 59138 96250 0 Every 8 hours as needed By Mouth False Potassium chloride ER 20 mEq tablet,exte nded release [generic] 40 meq By Mouth Once daily For Hypokalemia 40 meq 11/13 Inactiv e 2023 85514 57103 1 Once daily By Mouth False Colesevelam 625 mg tablet [generic] 1250 mg By Mouth Twice daily For TYPE 2 DIABETES MELLITUS WITHOUT COMPLICATIONS 1250 mg 11/19 Inactiv e 2023 28939 57285 1 Twice daily By Mouth E11.9 False Pioglitazon e 15 mg tablet [generic] 15 mg By Mouth Once daily For TYPE 2 DIABETES MELLITUS WITHOUT COMPLICATIONS 15 mg 11/14 Inactiv e 2023 12927 33581 1 Once daily By Mouth E11.9 False Cholecalcif hardeep (vitamin D3) 50 mcg (2,000 unit) tablet [generic] 50 mcg By Mouth Once daily For Supplement 50 mcg 2023 Active 2023 51867 55238 1 Once daily By Mouth False Colchicine 0.6 mg tablet [generic] 0.6 mg By Mouth Twice daily As Needed For Gout 0.6 mg 2023 Active 2023 70173 43377 4 Twice daily By Mouth False Levothyroxi ne 200 mcg tablet [generic] 200 mcg By Mouth Once daily For Hypothyroidis m 200 mcg 202300 0000 Active 2023 38210 09403 0 Once daily By Mouth False Ondansetron 4 mg disintegrat ing tablet [generic] 4 mg By Mouth Every 6 hours as needed For Nausea 4 mg 11/12 Inactiv e 2023 25339 10943 4 Every 6 hours as needed By Mouth False Docusate sodium 100 mg capsule [generic] 100 mg By Mouth Twice daily For Constipation 100 mg 202300 0000 Active 2023 28514 18874 1 Twice daily By Mouth False Oxycodone 5 mg tablet [generic] 5 mg By Mouth Every 6 hours as needed For Pain 5 mg 11/12 Inactiv e 2023 21254 81783 1 Every 6 hours as needed By Mouth False Oxycodone 5 mg tablet [generic] 5 mg By Mouth Every 6 hours as needed For Pain 5 mg 11/18 Inactiv e 2023 05730 11853 1 Every 6 hours as needed By Mouth False Milk of Magnesia 400 mg/5 mL oral suspension 30 ml By Mouth one time per day as needed if no BM x 3 days For Constipation 30 ml 202300 Active 2023 96743 60847 2 By Mouth False Ondansetron 4 mg disintegrat ing tablet [generic] 11/12 Inactiv e 2023 31271 44121 4 Ondansetron 4 mg disintegrat ing tablet [generic] 4 mg By Mouth Every 6 hours as needed For Nausea 4 mg 11/14 Inactiv e 2023 74185 54189 4 Every 6 hours as needed By Mouth False Potassium chloride ER 10 mEq capsule,ext ended release [generic] 40 mEq By Mouth Once daily For hypokalemia 40 mEq 11/17 Inactiv e 2023 07224 60432 1 Once daily By Mouth False Potassium chloride ER 10 mEq capsule,ext ended release [generic] 4 capsules By Mouth At bedtime For hypokalemia 4 capsule s 11/16 Inactiv e 2023 42997 79196 1 At bedtime By Mouth False Flomax 0.4 mg capsule 0.4 mg By Mouth At bedtime For Urinary retention 0.4 mg 11/18 Inactiv e 2023 94924 89533 1 At bedtime By Mouth False STOOL CULTURE Once daily Obtain stool culture, add C. Diff to routine stool culture For Rule out C. Diff 1x 2023 Active 2023 Once daily Other False Butrans 5 mcg/hour transdermal patch 1 patch Transdermal Every 7 Days For Pain 1 patch 2023 Active 2023 29329 46490 4 Every week Transd ermal False Pantoprazol e 40 mg tablet,nu yed release [generic] 40 mg By Mouth Twice daily For gerd 40 mg 2023 Active 2023 11881 46045 0 Twice daily By Mouth False Scopolamine 1 mg over 3 days transdermal patch [generic] 1 Transdermal Every 72 hours For nausea 1 11/21 Active 2023 35385 51418 4 Every 72 hours Transd ermal False Ondansetron 4 mg disintegrat ing tablet [generic] 11/14 Inactiv e 2023 41855 28696 4 Ondansetron 4 mg disintegrat ing tablet [generic] 4 mg By Mouth Every 8 hours For Nausea 4 mg 2023 Active 2023 68208 69409 4 Every 8 hours By Mouth False Miralax 17 gram oral powder packet 8.5 g (1/2 capful) By Mouth Once daily For constipation 8.5 g 11/18 Inactiv e 2023 54107 72153 6 Once daily By Mouth False Pioglitazon e 15 mg tablet [generic] 11/14 Inactiv e 2023 94056 78633 1 E11.9 Pioglitazon e 15 mg tablet [generic] 7.5mg ( half a tab) By Mouth Once daily For TYPE 2 DIABETES MELLITUS WITHOUT COMPLICATIONS 7.5mg 2023 Active 2023 21927 75141 1 Once daily By Mouth E11.9 False Mylanta Coat-Cool 1,200 mg-270 mg-80 mg/10 mL oral suspension 10 ml By Mouth Every 8 hours As Needed For heartburn, indigestion, gas 10 ml 2023 Active 2023 27707 81636 1 Every 8 hours By Mouth False Prochlorper azine maleate 5 mg tablet [generic] 5 mg By Mouth Every 8 hours as needed For Nausea 5 mg 2023 Active 2023 16318 63123 1 Every 8 hours as needed By Mouth False Potassium chloride ER 10 mEq capsule,ext ended release [generic] 10 meq By Mouth 4 times a day For Hypokalemia 10 meq 2023 Active 2023 34754 21548 1 4 times a day By Mouth False Lorazepam 0.5 mg tablet [generic] 11/18 Inactiv e 2023 88558 85568 0 Lorazepam 0.5 mg tablet [generic] 0.5 mg By Mouth Every 8 hours as needed For Anxiety 0.5 mg 12/18 Active 2023 49932 86563 0 Every 8 hours as needed By Mouth False Flomax 0.4 mg capsule 11/18 Inactiv e 2023 41183 49755 1 Flomax 0.4 mg capsule 0.4 mg By Mouth Once daily For Urinary retention 0.4 mg 2023 Active 2023 54232 04026 1 Once daily By Mouth False Oxycodone 5 mg tablet [generic] 11/18 Inactiv e 2023 87031 54655 1 Oxycodone 5 mg tablet [generic] 5 mg By Mouth Every 6 hours as needed For Back Pain 5 mg 2023 Active 2023 43565 72640 1 Every 6 hours as needed By Mouth False Cipro 250 mg tablet 250 mg By Mouth Twice daily For UTI 250 mg 2023 Active 2023 84432 52688 1 Twice daily By Mouth False Senna 8.6 mg tablet 17.2 mg By Mouth Twice daily For Constipation 17.2 mg 2023 Active 2023 90427 61003 1 Twice daily By Mouth False Zyprexa 2.5 mg tablet 2.5 mg By Mouth At bedtime For persistent nausea 2.5 mg 2023 Active 20232 46846 0 At bedtime By Mouth False MAGNESSIUM [...] weight Temperature SpO2 Blood Sugar Pulse Respirations 51334 5 75.00 mm[Hg] - Sitting 140.00 mm[Hg] - Sitting 65 NI 98.00 Tympanic 95.00 % 102.00 /min 18.00/min 918 22586 9 37584 918 02785 2 75.00 mm[Hg] - Sitting 140.00 mm[Hg] - Sitting 98.00 Tympanic 102.00 /min 18.00/min 918 56755 3 30721 918 47942 1 72.00 mm[Hg] - Sitting 138.00 mm[Hg] - Sitting 98.40 Tympanic 918 28655 4 88.00/ min 18.00/min 919 93429 4 71.00 mm[Hg] - Sitting 115.00 mm[Hg] - Sitting 98.30 Tympanic 97.00 % 86.00/ min 16.00/min 919 13691 0 71.00 mm[Hg] - Sitting 115.00 mm[Hg] - Sitting 98.30 Tympanic 86.00/ min 16.00/min 40910 919 98756 7 71.00 mm[Hg] - Sitting 115.00 mm[Hg] - Sitting 98.30 Tympanic 86.00/ min 16.00/min 920 87468 6 72.00 mm[Hg] - Sitting 112.00 mm[Hg] - Sitting 98.10 Tympanic 82.00/ min 18.00/min 09337 920 83390 0 75.00 mm[Hg] - Sitting 130.00 mm[Hg] - Sitting 98.40 Forehead Scan 93.00 % 88.00/ min 18.00/min 39066 920 93266 2 75.00 mm[Hg] - Lying Down 130.00 mm[Hg] - Lying Down 98.40 Tympanic 88.00/ min 18.00/min 25698 920 14363 5 75.00 mm[Hg] - Lying Down 130.00 mm[Hg] - Lying Down 98.40 Tympanic 88.00/ min 18.00/min 920 46052 6 199.00 NI 62943 920 32007 3 75.00 mm[Hg] - Sitting 130.00 mm[Hg] - Sitting 98.40 Tympanic 88.00/ min 18.00/min 52316 921 61422 1 71.00 mm[Hg] - Lying Down 119.00 mm[Hg] - Lying Down 98.40 Forehead Scan 96.00 % 83.00/ min 16.00/min 75697 922 93847 6 71.00 mm[Hg] - Lying Down 128.00 mm[Hg] - Lying Down 98.30 Forehead Scan 94.00 % 84.00/ min 18.00/min 923 55341 4 63.00 mm[Hg] - Sitting 105.00 mm[Hg] - Sitting 98.20 Tympanic 93.00 % 93.00/ min 18.00/min 924 08288 8 66.00 mm[Hg] - Sitting 104.00 mm[Hg] - Sitting 98.20 Tympanic 98.00 % 84.00/ min 16.00/min 925 47277 2 131.00 mg/dL
--- OUTSIDE RECORDS SUMMARY | 2023-12-13 23:58 | External Medical Summary | Continuity Of Care Document ---
Author Name Unknown Address [address] [place] [address] Organization [facility] [place] () Care Team Providers Care Diagnostic Tech Name Role Phone DO Parson Amy Primary Care Provider [phone] Allergies Allergy Reaction Start Date End Date [...] 3 0.1 mL 11/13 Inactiv e 2023 59825 62532 0 1 time Intrad ermal False Tubersol 5 tub. unit/0.1 mL intradermal injection solution [Tuberculin PPD] 0.1mL Intradermal 1 time For PPD 2nd Step Give 2nd Step PPD Day 1 and Read results Day 3 (schedule 7 days after 1st READ) 0.1mL 11/13 Inactiv e 2023 49016 78212 0 1 time Intrad ermal False DISCONTINUE as of 11/14/2023: Tubersol 5 tub. unit/0.1 mL intradermal injection solution [Tuberculin PPD] 11/13 Inactiv e 2023 41574 88888 0 Tubersol 5 tub. unit/0.1 mL intradermal injection solution 0.1 mL Intradermal 1 time For PPD Step 1 GIVE on Day 1 and read results Day 3 0.1 mL 11/16 Inactiv e 2023 98580 03245 1 1 time Intrad ermal False DISCONTINUE as of 11/14/2023: Tubersol 5 tub. unit/0.1 mL intradermal injection solution [Tuberculin PPD] 11/13 Inactiv e 2023 09056 42111 0 Tubersol 5 tub. unit/0.1 mL intradermal injection solution 0.1mL Intradermal 1 time For PPD 2nd Step Give 2nd Step PPD Day 1 and Read results Day 3 (schedule 7 days after 1st READ) 0.1mL 11/25 Active 2023 85158 69934 1 1 time Intrad ermal False Tylenol 325 mg tablet 2 tabs By Mouth Every 4 hours as needed For Pain DO NOT EXCEED 3000 MG APAP/24 Hours 2 tabs 202300 /0000 Active 2023 06314 68480 0 Every 4 hours as needed By Mouth False Tylenol 325 mg tablet 2 tabs By Mouth Every 4 hours as needed For Fever >100 DO NOT EXCEED 3000 MG APAP/24 Hours 2 tabs 202300 /0000 Active 2023 99740 21226 0 Every 4 hours as needed By Mouth False Dulcolax (bisacodyl) 10 mg rectal suppository One Suppository per rectum PRN if Milk of Magnisia ineffective. Give on day 5 of no BM 1 sup 2023 Active 2023 88609 70134 1 Daily as needed Rectal False Fleet Enema 19 gram-7 gram/118 mL Administer per rectum PRN one time if dulcolax suppository not effective. Give on day 6 of no BM 1 202300 0000 Active 2023 62583 63701 6 Daily as needed Rectal False Dextrose 50 % in water (D50W) intravenous solution [generic] Dextrose 50% reyes 20-50 ml (slow push) Intravenous if Glucagon not effective after 15 minutes. CALL 911 for ED Evaluation. 50% reyes 202300 /0000 Active 2023 86656 31760 9 Intrav enous False Glucagon (HCl) Emergency Kit 1 mg solution for injection Administer Glucagon 1 mg Intramuscular if 15 minutes after GLucose Gel is administered Glucose remains less than 70 1 mg 2023 Active 2023 40935 99604 2 Intram uscula r False Glucose Gel 40 % oral gel [Dextrose] PRN If resident is unable to swallow (with or without symptoms) and Glucose results less than 70 give GLucose 40% Gel 1 tube orally - Recheck Glucose 15 minutes after administratio n. 1 tube 2023 Active 2023 44019 32502 8 By Mouth False Lorazepam 0.5 mg tablet [generic] 0.5 mg By Mouth Every 8 hours as needed For Anxiety 0.5 mg 11/18 Inactiv e 2023 09409 91571 0 Every 8 hours as needed By Mouth False Potassium chloride ER 20 mEq tablet,exte nded release [generic] 40 meq By Mouth Once daily For Hypokalemia 40 meq 11/13 Inactiv e 2023 37911 75593 1 Once daily By Mouth False Colesevelam 625 mg tablet [generic] 1250 mg By Mouth Twice daily For TYPE 2 DIABETES MELLITUS WITHOUT COMPLICATIONS 1250 mg 2023 Active 2023 26980 70251 1 Twice daily By Mouth E11.9 False Pioglitazon e 15 mg tablet [generic] 15 mg By Mouth Once daily For TYPE 2 DIABETES MELLITUS WITHOUT COMPLICATIONS 15 mg 11/14 Inactiv e 2023 54976 10365 1 Once daily By Mouth E11.9 False Cholecalcif hardeep (vitamin D3) 50 mcg (2,000 unit) tablet [generic] 50 mcg By Mouth Once daily For Supplement 50 mcg 2023 Active 2023 83244 14545 1 Once daily By Mouth False Colchicine 0.6 mg tablet [generic] 0.6 mg By Mouth Twice daily As Needed For Gout 0.6 mg 2023 Active 2023 88071 43505 4 Twice daily By Mouth False Levothyroxi ne 200 mcg tablet [generic] 200 mcg By Mouth Once daily For Hypothyroidis m 200 mcg 202300 Active 2023 54542 83180 0 Once daily By Mouth False Ondansetron 4 mg disintegrat ing tablet [generic] 4 mg By Mouth Every 6 hours as needed For Nausea 4 mg 11/12 Inactiv e 2023 86403 27983 4 Every 6 hours as needed By Mouth False Docusate sodium 100 mg capsule [generic] 100 mg By Mouth Twice daily For Constipation 100 mg 202300 Active 2023 09549 88120 1 Twice daily By Mouth False Oxycodone 5 mg tablet [generic] 5 mg By Mouth Every 6 hours as needed For Pain 5 mg 11/12 Inactiv e 2023 26611 55313 1 Every 6 hours as needed By Mouth False Oxycodone 5 mg tablet [generic] 5 mg By Mouth Every 6 hours as needed For Pain 5 mg 202300 Active 2023 59022 16577 1 Every 6 hours as needed By Mouth False Milk of Magnesia 400 mg/5 mL oral suspension 30 ml By Mouth one time per day as needed if no BM x 3 days For Constipation 30 ml 202300 Active 2023 60842 05859 2 By Mouth False Ondansetron 4 mg disintegrat ing tablet [generic] 11/12 Inactiv e 2023 39385 81477 4 Ondansetron 4 mg disintegrat ing tablet [generic] 4 mg By Mouth Every 6 hours as needed For Nausea 4 mg 11/14 Inactiv e 2023 47136 67600 4 Every 6 hours as needed By Mouth False Potassium chloride ER 10 mEq capsule,ext ended release [generic] 40 mEq By Mouth Once daily For hypokalemia 40 mEq 11/17 Inactiv e 2023 59959 99542 1 Once daily By Mouth False Potassium chloride ER 10 mEq capsule,ext ended release [generic] 4 capsules By Mouth At bedtime For hypokalemia 4 capsule s 11/164 Inactiv e 2023 54792 42942 1 At bedtime By Mouth False Flomax 0.4 mg capsule 0.4 mg By Mouth At bedtime For Urinary retention 0.4 mg 2023 Active 2023 07862 79728 1 At bedtime By Mouth False STOOL CULTURE Once daily Obtain stool culture, add C. Diff to routine stool culture For Rule out C. Diff 1x 2023 Active 2023 Once daily Other False Butrans 5 mcg/hour transdermal patch 1 patch Transdermal Every 7 Days For Pain 1 patch 2023 Active 2023 52196 39082 4 Every week Transd ermal False Pantoprazol e 40 mg tablet,nu yed release [generic] 40 mg By Mouth Twice daily For gerd 40 mg 2023 Active 2023 47264 83464 0 Twice daily By Mouth False Scopolamine 1 mg over 3 days transdermal patch [generic] 1 Transdermal Every 72 hours For nausea 1 11/21 Active 2023 99630 81472 4 Every 72 hours Transd ermal False Ondansetron 4 mg disintegrat ing tablet [generic] 11/14 Inactiv e 2023 24426 46089 4 Ondansetron 4 mg disintegrat ing tablet [generic] 4 mg By Mouth Every 8 hours For Nausea 4 mg 2023 Active 2023 45500 64670 4 Every 8 hours By Mouth False Miralax 17 gram oral powder packet 8.5 g (1/2 capful) By Mouth Once daily For constipation 8.5 g 2023 Active 2023 97817 15656 6 Once daily By Mouth False Pioglitazon e 15 mg tablet [generic] 11/14 Inactiv e 2023 62848 23648 1 E11.9 Pioglitazon e 15 mg tablet [generic] 7.5mg ( half a tab) By Mouth Once daily For TYPE 2 DIABETES MELLITUS WITHOUT COMPLICATIONS 7.5mg 2023 Active 2023 65475 10953 1 Once daily By Mouth E11.9 False Mylanta Coat-Cool 1,200 mg-270 mg-80 mg/10 mL oral suspension 10 ml By Mouth Every 8 hours As Needed For heartburn, indigestion, gas 10 ml 2023 Active 2023 96405 24748 1 Every 8 hours By Mouth False Prochlorper azine maleate 5 mg tablet [generic] 5 mg By Mouth Every 8 hours as needed For Nausea 5 mg 2023 Active 2023 29540 73751 1 Every 8 hours as needed By Mouth False Potassium chloride ER 10 mEq capsule,ext ended release [generic] 10 meq By Mouth 4 times a day For Hypokalemia 10 meq 2023 Active 2023 77307 89901 1 4 times a day By Mouth False Lorazepam 0.5 mg tablet [generic] 11/18 Inactiv e 2023 90652 05481 0 Lorazepam 0.5 mg tablet [generic] 0.5 mg By Mouth Every 8 hours as needed For Anxiety 0.5 mg 12/18 Active 2023 08402 33897 0 Every 8 hours as needed By [...] Temperature SpO2 Blood Sugar Pulse Respirations 8 68783 5 75.00 mm[Hg] - Sitting 140.00 mm[Hg] - Sitting 65 NI 98.00 Tympanic 95.00 % 102.00 /min 18.00/min 20391 918 16858 9 32408 8 15465 2 75.00 mm[Hg] - Sitting 140.00 mm[Hg] - Sitting 98.00 Tympanic 102.00 /min 18.00/min 17697 918 67767 3 37960 918 61719 1 72.00 mm[Hg] - Sitting 138.00 mm[Hg] - Sitting 98.40 Tympanic 91496 918 69880 4 88.00/ min 18.00/min 65123 919 06219 4 71.00 mm[Hg] - Sitting 115.00 mm[Hg] - Sitting 98.30 Tympanic 97.00 % 86.00/ min 16.00/min 89945 919 97057 0 71.00 mm[Hg] - Sitting 115.00 mm[Hg] - Sitting 98.30 Tympanic 86.00/ min 16.00/min 09763 919 99881 7 71.00 mm[Hg] - Sitting 115.00 mm[Hg] - Sitting 98.30 Tympanic 86.00/ min 16.00/min 28196 920 47533 6 72.00 mm[Hg] - Sitting 112.00 mm[Hg] - Sitting 98.10 Tympanic 82.00/ min 18.00/min 23749 920 02025 0 75.00 mm[Hg] - Sitting 130.00 mm[Hg] - Sitting 98.40 Forehead Scan 93.00 % 88.00/ min 18.00/min 920 87030 2 75.00 mm[Hg] - Lying Down 130.00 mm[Hg] - Lying Down 98.40 Tympanic 88.00/ min 18.00/min 920 31854 5 75.00 mm[Hg] - Lying Down 130.00 mm[Hg] - Lying Down 98.40 Tympanic 88.00/ min 18.00/min 920 97631 6 199.00 NI 0 83007 3 75.00 mm[Hg] - Sitting 130.00 mm[Hg] - Sitting 98.40 Tympanic 88.00/ min 18.00/min 921 33464 1 71.00 mm[Hg] - Lying Down 119.00 mm[Hg] - Lying Down 98.40 Forehead Scan 96.00 % 83.00/ min 16.00/min 922 86630 6 71.00 mm[Hg] - Lying Down 128.00 mm[Hg] - Lying Down 98.30 Forehead Scan 94.00 % 84.00/ min 18.00/min 923 09380 4 63.00 mm[Hg] - Sitting 105.00 mm[Hg] - Sitting 98.20 Tympanic 93.00 % 93.00/ min 18.00/min
--- OUTSIDE RECORDS SUMMARY | 2023-12-13 23:58 | External Medical Summary | Continuity Of Care Document ---
Author Name Unknown Address [address] [place] [address] Organization [facility] () Care Team Providers Care Auto Damage Insurance Appraiser Name Role Phone DO Parson Amy Primary Care Provider [phone] Allergies Allergy Reaction Start Date End Date [...] 3 0.1 mL 11/13 Inactiv e 2023 59883 99996 0 1 time Intrad ermal False Tubersol 5 tub. unit/0.1 mL intradermal injection solution [Tuberculin PPD] 0.1mL Intradermal 1 time For PPD 2nd Step Give 2nd Step PPD Day 1 and Read results Day 3 (schedule 7 days after 1st READ) 0.1mL 11/13 Inactiv e 2023 85813 53228 0 1 time Intrad ermal False DISCONTINUE as of 11/14/2023: Tubersol 5 tub. unit/0.1 mL intradermal injection solution [Tuberculin PPD] 11/13 Inactiv e 2023 53762 20980 0 Tubersol 5 tub. unit/0.1 mL intradermal injection solution 0.1 mL Intradermal 1 time For PPD Step 1 GIVE on Day 1 and read results Day 3 0.1 mL 11/16 Inactiv e 2023 77165 80643 1 1 time Intrad ermal False DISCONTINUE as of 11/14/2023: Tubersol 5 tub. unit/0.1 mL intradermal injection solution [Tuberculin PPD] 11/13 Inactiv e 2023 82402 46498 0 Tubersol 5 tub. unit/0.1 mL intradermal injection solution 0.1mL Intradermal 1 time For PPD 2nd Step Give 2nd Step PPD Day 1 and Read results Day 3 (schedule 7 days after 1st READ) 0.1mL 11/25 Active 2023 31067 58895 1 1 time Intrad ermal False Tylenol 325 mg tablet 2 tabs By Mouth Every 4 hours as needed For Pain DO NOT EXCEED 3000 MG APAP/24 Hours 2 tabs 202300 /0000 Active 2023 26762 04131 0 Every 4 hours as needed By Mouth False Tylenol 325 mg tablet 2 tabs By Mouth Every 4 hours as needed For Fever >100 DO NOT EXCEED 3000 MG APAP/24 Hours 2 tabs 202300 /0000 Active 2023 03476 61365 0 Every 4 hours as needed By Mouth False Dulcolax (bisacodyl) 10 mg rectal suppository One Suppository per rectum PRN if Milk of Magnisia ineffective. Give on day 5 of no BM 1 sup 2023 Active 2023 67851 11871 1 Daily as needed Rectal False Fleet Enema 19 gram-7 gram/118 mL Administer per rectum PRN one time if dulcolax suppository not effective. Give on day 6 of no BM 1 202300 0000 Active 2023 38505 19118 6 Daily as needed Rectal False Dextrose 50 % in water (D50W) intravenous solution [generic] Dextrose 50% reyes 20-50 ml (slow push) Intravenous if Glucagon not effective after 15 minutes. CALL 911 for ED Evaluation. 50% reyes 202300 /0000 Active 2023 50327 86909 9 Intrav enous False Glucagon (HCl) Emergency Kit 1 mg solution for injection Administer Glucagon 1 mg Intramuscular if 15 minutes after GLucose Gel is administered Glucose remains less than 70 1 mg 2023 Active 2023 26441 87929 2 Intram uscula r False Glucose Gel 40 % oral gel [Dextrose] PRN If resident is unable to swallow (with or without symptoms) and Glucose results less than 70 give GLucose 40% Gel 1 tube orally - Recheck Glucose 15 minutes after administratio n. 1 tube 2023 Active 2023 03208 55046 8 By Mouth False Lorazepam 0.5 mg tablet [generic] 0.5 mg By Mouth Every 8 hours as needed For Anxiety 0.5 mg 11/18 Inactiv e 2023 71036 13792 0 Every 8 hours as needed By Mouth False Potassium chloride ER 20 mEq tablet,exte nded release [generic] 40 meq By Mouth Once daily For Hypokalemia 40 meq 11/13 Inactiv e 2023 41535 20119 1 Once daily By Mouth False Colesevelam 625 mg tablet [generic] 1250 mg By Mouth Twice daily For TYPE 2 DIABETES MELLITUS WITHOUT COMPLICATIONS 1250 mg 11/19 Inactiv e 2023 95732 59661 1 Twice daily By Mouth E11.9 False Pioglitazon e 15 mg tablet [generic] 15 mg By Mouth Once daily For TYPE 2 DIABETES MELLITUS WITHOUT COMPLICATIONS 15 mg 11/14 Inactiv e 2023 08090 64053 1 Once daily By Mouth E11.9 False Cholecalcif hardeep (vitamin D3) 50 mcg (2,000 unit) tablet [generic] 50 mcg By Mouth Once daily For Supplement 50 mcg 2023 Active 2023 56719 52623 1 Once daily By Mouth False Colchicine 0.6 mg tablet [generic] 0.6 mg By Mouth Twice daily As Needed For Gout 0.6 mg 2023 Active 2023 88948 56148 4 Twice daily By Mouth False Levothyroxi ne 200 mcg tablet [generic] 200 mcg By Mouth Once daily For Hypothyroidis m 200 mcg 202300 0000 Active 2023 73268 77718 0 Once daily By Mouth False Ondansetron 4 mg disintegrat ing tablet [generic] 4 mg By Mouth Every 6 hours as needed For Nausea 4 mg 11/12 Inactiv e 2023 01861 55051 4 Every 6 hours as needed By Mouth False Docusate sodium 100 mg capsule [generic] 100 mg By Mouth Twice daily For Constipation 100 mg 202300 0000 Active 2023 28494 23466 1 Twice daily By Mouth False Oxycodone 5 mg tablet [generic] 5 mg By Mouth Every 6 hours as needed For Pain 5 mg 11/12 Inactiv e 2023 01223 61644 1 Every 6 hours as needed By Mouth False Oxycodone 5 mg tablet [generic] 5 mg By Mouth Every 6 hours as needed For Pain 5 mg 11/18 Inactiv e 2023 64768 06397 1 Every 6 hours as needed By Mouth False Milk of Magnesia 400 mg/5 mL oral suspension 30 ml By Mouth one time per day as needed if no BM x 3 days For Constipation 30 ml 202300 Active 2023 21117 31385 2 By Mouth False Ondansetron 4 mg disintegrat ing tablet [generic] 11/12 Inactiv e 2023 93533 03669 4 Ondansetron 4 mg disintegrat ing tablet [generic] 4 mg By Mouth Every 6 hours as needed For Nausea 4 mg 11/14 Inactiv e 2023 13687 02048 4 Every 6 hours as needed By Mouth False Potassium chloride ER 10 mEq capsule,ext ended release [generic] 40 mEq By Mouth Once daily For hypokalemia 40 mEq 11/17 Inactiv e 2023 71706 04435 1 Once daily By Mouth False Potassium chloride ER 10 mEq capsule,ext ended release [generic] 4 capsules By Mouth At bedtime For hypokalemia 4 capsule s 11/16 Inactiv e 2023 28016 24638 1 At bedtime By Mouth False Flomax 0.4 mg capsule 0.4 mg By Mouth At bedtime For Urinary retention 0.4 mg 11/18 Inactiv e 2023 16692 02422 1 At bedtime By Mouth False STOOL CULTURE Once daily Obtain stool culture, add C. Diff to routine stool culture For Rule out C. Diff 1x 2023 Active 2023 Once daily Other False Butrans 5 mcg/hour transdermal patch 1 patch Transdermal Every 7 Days For Pain 1 patch 2023 Active 2023 39342 08807 4 Every week Transd ermal False Pantoprazol e 40 mg tablet,nu yed release [generic] 40 mg By Mouth Twice daily For gerd 40 mg 2023 Active 2023 29290 87044 0 Twice daily By Mouth False Scopolamine 1 mg over 3 days transdermal patch [generic] 1 Transdermal Every 72 hours For nausea 1 11/21 Active 2023 55547 07713 4 Every 72 hours Transd ermal False Ondansetron 4 mg disintegrat ing tablet [generic] 11/14 Inactiv e 2023 37488 32240 4 Ondansetron 4 mg disintegrat ing tablet [generic] 4 mg By Mouth Every 8 hours For Nausea 4 mg 2023 Active 2023 51055 52243 4 Every 8 hours By Mouth False Miralax 17 gram oral powder packet 8.5 g (1/2 capful) By Mouth Once daily For constipation 8.5 g 11/18 Inactiv e 2023 55243 35008 6 Once daily By Mouth False Pioglitazon e 15 mg tablet [generic] 11/14 Inactiv e 2023 96173 57215 1 E11.9 Pioglitazon e 15 mg tablet [generic] 7.5mg ( half a tab) By Mouth Once daily For TYPE 2 DIABETES MELLITUS WITHOUT COMPLICATIONS 7.5mg 2023 Active 2023 80328 26309 1 Once daily By Mouth E11.9 False Mylanta Coat-Cool 1,200 mg-270 mg-80 mg/10 mL oral suspension 10 ml By Mouth Every 8 hours As Needed For heartburn, indigestion, gas 10 ml 2023 Active 2023 36788 28457 1 Every 8 hours By Mouth False Prochlorper azine maleate 5 mg tablet [generic] 5 mg By Mouth Every 8 hours as needed For Nausea 5 mg 2023 Active 2023 11697 54844 1 Every 8 hours as needed By Mouth False Potassium chloride ER 10 mEq capsule,ext ended release [generic] 10 meq By Mouth 4 times a day For Hypokalemia 10 meq 2023 Active 2023 52495 41479 1 4 times a day By Mouth False Lorazepam 0.5 mg tablet [generic] 11/18 Inactiv e 2023 19438 20778 0 Lorazepam 0.5 mg tablet [generic] 0.5 mg By Mouth Every 8 hours as needed For Anxiety 0.5 mg 12/18 Active 2023 00296 75742 0 Every 8 hours as needed By Mouth False Flomax 0.4 mg capsule 11/18 Inactiv e 2023 25583 58938 1 Flomax 0.4 mg capsule 0.4 mg By Mouth Once daily For Urinary retention 0.4 mg 11/19 Inactiv e 2023 46923 23558 1 Once daily By Mouth False Oxycodone 5 mg tablet [generic] 11/18 Inactiv e 2023 46314 21421 1 Oxycodone 5 mg tablet [generic] 5 mg By Mouth Every 6 hours as needed For Back Pain 5 mg 2023 Active 2023 85740 73397 1 Every 6 hours as needed By Mouth False Cipro 250 mg tablet 250 mg By Mouth Twice daily For UTI 250 mg 11/19 Inactiv e 2023 76881 76176 1 Twice daily By Mouth False Senna 8.6 mg tablet 17.2 mg By Mouth Twice daily For Constipation 17.2 mg 2023 Active 2023 43919 04148 1 Twice daily By Mouth False Zyprexa 2.5 mg tablet 2.5 mg By Mouth At bedtime For persistent nausea 2.5 mg 2023 Active 2023 25401 31128 0 At bedtime By Mouth False MAGNESSIUM GLUCONATE 500mg By Mouth Every morning For Supplement 500mg 2023 Active 2023 Every morning By Mouth False Cipro 250 mg tablet 11/19 Inactiv e 2023 05000 95861 1 Cipro 250 mg tablet 250 mg By Mouth Twice daily For UTI 250 mg 11/26 Active 2023 36822 99620 1 Twice daily By Mouth False Flomax 0.4 mg capsule 11/19 Inactiv e 2023 98628 53021 1 Flomax 0.4 mg capsule 0.4 mg By Mouth Once daily For Urinary retention 0.4 mg 11/26 Active 2023 59112 50088 1 Once daily By Mouth False Problems [...] Temperature SpO2 Blood Sugar Pulse Respirations 8 97439 5 75.00 mm[Hg] - Sitting 140.00 mm[Hg] - Sitting 65 NI 98.00 Tympanic 95.00 % 102.00 /min 18.00/min 69936 8 56473 9 26108 918 56427 2 75.00 mm[Hg] - Sitting 140.00 mm[Hg] - Sitting 98.00 Tympanic 102.00 /min 18.00/min 76546 918 34169 3 78342 918 15307 1 72.00 mm[Hg] - Sitting 138.00 mm[Hg] - Sitting 98.40 Tympanic 74161 918 45407 4 88.00/ min 18.00/min 65237 919 86573 4 71.00 mm[Hg] - Sitting 115.00 mm[Hg] - Sitting 98.30 Tympanic 97.00 % 86.00/ min 16.00/min 09506 919 13117 0 71.00 mm[Hg] - Sitting 115.00 mm[Hg] - Sitting 98.30 Tympanic 86.00/ min 16.00/min 56008 919 34902 7 71.00 mm[Hg] - Sitting 115.00 mm[Hg] - Sitting 98.30 Tympanic 86.00/ min 16.00/min 58206 920 60863 6 72.00 mm[Hg] - Sitting 112.00 mm[Hg] - Sitting 98.10 Tympanic 82.00/ min 18.00/min 95545 920 21907 0 75.00 mm[Hg] - Sitting 130.00 mm[Hg] - Sitting 98.40 Forehead Scan 93.00 % 88.00/ min 18.00/min 72285 920 19886 2 75.00 mm[Hg] - Lying Down 130.00 mm[Hg] - Lying Down 98.40 Tympanic 88.00/ min 18.00/min 06097 920 47306 5 75.00 mm[Hg] - Lying Down 130.00 mm[Hg] - Lying Down 98.40 Tympanic 88.00/ min 18.00/min 38768 920 16587 6 199.00 NI 79122 920 89375 3 75.00 mm[Hg] - Sitting 130.00 mm[Hg] - Sitting 98.40 Tympanic 88.00/ min 18.00/min 80333 921 61082 1 71.00 mm[Hg] - Lying Down 119.00 mm[Hg] - Lying Down 98.40 Forehead Scan 96.00 % 83.00/ min 16.00/min 37504 922 58276 6 71.00 mm[Hg] - Lying Down 128.00 mm[Hg] - Lying Down 98.30 Forehead Scan 94.00 % 84.00/ min 18.00/min 12146 923 18014 4 63.00 mm[Hg] - Sitting 105.00 mm[Hg] - Sitting 98.20 Tympanic 93.00 % 93.00/ min 18.00/min 41813 924 17416 8 66.00 mm[Hg] - Sitting 104.00 mm[Hg] - Sitting 98.20 Tympanic 98.00 % 84.00/ min 16.00/min 08194 925 54373 2 131.00 mg/dL 61207 925 36846 6 138.00 mg/dL 20524 926 79644 1 199.00 NI
--- OUTSIDE RECORDS SUMMARY | 2023-12-13 23:58 | External Medical Summary | Continuity Of Care Document ---
Author Name Unknown Address [address] [place] [address] Organization [facility] [place] () Care Team Providers Care Ward Maid Name Role Phone DO Parson Amy Primary Care Provider [phone] Allergies Allergy Reaction Start Date End Date [...] 3 0.1 mL 11/13 Inactiv e 2023 79920 03133 0 1 time Intrad ermal False Tubersol 5 tub. unit/0.1 mL intradermal injection solution [Tuberculin PPD] 0.1mL Intradermal 1 time For PPD 2nd Step Give 2nd Step PPD Day 1 and Read results Day 3 (schedule 7 days after 1st READ) 0.1mL 11/13 Inactiv e 2023 37169 98845 0 1 time Intrad ermal False DISCONTINUE as of 11/14/2023: Tubersol 5 tub. unit/0.1 mL intradermal injection solution [Tuberculin PPD] 11/13 Inactiv e 2023 85061 30851 0 Tubersol 5 tub. unit/0.1 mL intradermal injection solution 0.1 mL Intradermal 1 time For PPD Step 1 GIVE on Day 1 and read results Day 3 0.1 mL 11/16 Inactiv e 2023 94951 58440 1 1 time Intrad ermal False DISCONTINUE as of 11/14/2023: Tubersol 5 tub. unit/0.1 mL intradermal injection solution [Tuberculin PPD] 11/13 Inactiv e 2023 89220 21693 0 Tubersol 5 tub. unit/0.1 mL intradermal injection solution 0.1mL Intradermal 1 time For PPD 2nd Step Give 2nd Step PPD Day 1 and Read results Day 3 (schedule 7 days after 1st READ) 0.1mL 11/25 Active 2023 99039 49553 1 1 time Intrad ermal False Tylenol 325 mg tablet 2 tabs By Mouth Every 4 hours as needed For Pain DO NOT EXCEED 3000 MG APAP/24 Hours 2 tabs 202300 /0000 Active 2023 00533 05889 0 Every 4 hours as needed By Mouth False Tylenol 325 mg tablet 2 tabs By Mouth Every 4 hours as needed For Fever >100 DO NOT EXCEED 3000 MG APAP/24 Hours 2 tabs 202300 /0000 Active 2023 35277 75454 0 Every 4 hours as needed By Mouth False Dulcolax (bisacodyl) 10 mg rectal suppository One Suppository per rectum PRN if Milk of Magnisia ineffective. Give on day 5 of no BM 1 sup 2023 Active 2023 90670 66968 1 Daily as needed Rectal False Fleet Enema 19 gram-7 gram/118 mL Administer per rectum PRN one time if dulcolax suppository not effective. Give on day 6 of no BM 1 202300 0000 Active 2023 26330 19347 6 Daily as needed Rectal False Dextrose 50 % in water (D50W) intravenous solution [generic] Dextrose 50% reyes 20-50 ml (slow push) Intravenous if Glucagon not effective after 15 minutes. CALL 911 for ED Evaluation. 50% reyes 202300 /0000 Active 2023 86172 71786 9 Intrav enous False Glucagon (HCl) Emergency Kit 1 mg solution for injection Administer Glucagon 1 mg Intramuscular if 15 minutes after GLucose Gel is administered Glucose remains less than 70 1 mg 2023 Active 2023 21540 55488 2 Intram uscula r False Glucose Gel 40 % oral gel [Dextrose] PRN If resident is unable to swallow (with or without symptoms) and Glucose results less than 70 give GLucose 40% Gel 1 tube orally - Recheck Glucose 15 minutes after administratio n. 1 tube 2023 Active 2023 86735 05143 8 By Mouth False Lorazepam 0.5 mg tablet [generic] 0.5 mg By Mouth Every 8 hours as needed For Anxiety 0.5 mg 11/18 Inactiv e 2023 31448 56847 0 Every 8 hours as needed By Mouth False Potassium chloride ER 20 mEq tablet,exte nded release [generic] 40 meq By Mouth Once daily For Hypokalemia 40 meq 11/13 Inactiv e 2023 99384 40529 1 Once daily By Mouth False Colesevelam 625 mg tablet [generic] 1250 mg By Mouth Twice daily For TYPE 2 DIABETES MELLITUS WITHOUT COMPLICATIONS 1250 mg 2023 Active 2023 19341 90395 1 Twice daily By Mouth E11.9 False Pioglitazon e 15 mg tablet [generic] 15 mg By Mouth Once daily For TYPE 2 DIABETES MELLITUS WITHOUT COMPLICATIONS 15 mg 11/14 Inactiv e 2023 04760 14043 1 Once daily By Mouth E11.9 False Cholecalcif hardeep (vitamin D3) 50 mcg (2,000 unit) tablet [generic] 50 mcg By Mouth Once daily For Supplement 50 mcg 2023 Active 2023 92516 87243 1 Once daily By Mouth False Colchicine 0.6 mg tablet [generic] 0.6 mg By Mouth Twice daily As Needed For Gout 0.6 mg 2023 Active 2023 77218 95774 4 Twice daily By Mouth False Levothyroxi ne 200 mcg tablet [generic] 200 mcg By Mouth Once daily For Hypothyroidis m 200 mcg 2023 0000 0000 Active 2023 89050 15357 0 Once daily By Mouth False Ondansetron 4 mg disintegrat ing tablet [generic] 4 mg By Mouth Every 6 hours as needed For Nausea 4 mg 11/12 Inactiv e 2023 58115 56622 4 Every 6 hours as needed By Mouth False Docusate sodium 100 mg capsule [generic] 100 mg By Mouth Twice daily For Constipation 100 mg 202300 Active 2023 54340 09125 1 Twice daily By Mouth False Oxycodone 5 mg tablet [generic] 5 mg By Mouth Every 6 hours as needed For Pain 5 mg 11/12 Inactiv e 2023 08308 12089 1 Every 6 hours as needed By Mouth False Oxycodone 5 mg tablet [generic] 5 mg By Mouth Every 6 hours as needed For Pain 5 mg 11/18 Inactiv e 2023 30958 69152 1 Every 6 hours as needed By Mouth False Milk of Magnesia 400 mg/5 mL oral suspension 30 ml By Mouth one time per day as needed if no BM x 3 days For Constipation 30 ml 202300 Active 2023 74969 63626 2 By Mouth False Ondansetron 4 mg disintegrat ing tablet [generic] 11/12 Inactiv e 2023 65198 66450 4 Ondansetron 4 mg disintegrat ing tablet [generic] 4 mg By Mouth Every 6 hours as needed For Nausea 4 mg 11/14 Inactiv e 2023 34208 79994 4 Every 6 hours as needed By Mouth False Potassium chloride ER 10 mEq capsule,ext ended release [generic] 40 mEq By Mouth Once daily For hypokalemia 40 mEq 11/17 Inactiv e 2023 15924 30632 1 Once daily By Mouth False Potassium chloride ER 10 mEq capsule,ext ended release [generic] 4 capsules By Mouth At bedtime For hypokalemia 4 capsule s 11/16 Inactiv e 2023 16488 33457 1 At bedtime By Mouth False Flomax 0.4 mg capsule 0.4 mg By Mouth At bedtime For Urinary retention 0.4 mg 11/18 Inactiv e 2023 46262 04556 1 At bedtime By Mouth False STOOL CULTURE Once daily Obtain stool culture, add C. Diff to routine stool culture For Rule out C. Diff 1x 2023 Active 2023 Once daily Other False Butrans 5 mcg/hour transdermal patch 1 patch Transdermal Every 7 Days For Pain 1 patch 2023 Active 2023 40246 78791 4 Every week Transd ermal False Pantoprazol e 40 mg tablet,nu yed release [generic] 40 mg By Mouth Twice daily For gerd 40 mg 2023 Active 2023 61591 05331 0 Twice daily By Mouth False Scopolamine 1 mg over 3 days transdermal patch [generic] 1 Transdermal Every 72 hours For nausea 1 11/21 Active 2023 52451 99576 4 Every 72 hours Transd ermal False Ondansetron 4 mg disintegrat ing tablet [generic] 11/14 Inactiv e 2023 11179 15395 4 Ondansetron 4 mg disintegrat ing tablet [generic] 4 mg By Mouth Every 8 hours For Nausea 4 mg 2023 Active 2023 19707 67311 4 Every 8 hours By Mouth False Miralax 17 gram oral powder packet 8.5 g (1/2 capful) By Mouth Once daily For constipation 8.5 g 2023 Active 2023 16312 09228 6 Once daily By Mouth False Pioglitazon e 15 mg tablet [generic] 11/14 Inactiv e 2023 33149 35309 1 E11.9 Pioglitazon e 15 mg tablet [generic] 7.5mg ( half a tab) By Mouth Once daily For TYPE 2 DIABETES MELLITUS WITHOUT COMPLICATIONS 7.5mg 2023 Active 2023 87816 91715 1 Once daily By Mouth E11.9 False Mylanta Coat-Cool 1,200 mg-270 mg-80 mg/10 mL oral suspension 10 ml By Mouth Every 8 hours As Needed For heartburn, indigestion, gas 10 ml 2023 Active 2023 16796 01164 1 Every 8 hours By Mouth False Prochlorper azine maleate 5 mg tablet [generic] 5 mg By Mouth Every 8 hours as needed For Nausea 5 mg 2023 Active 2023 32438 20721 1 Every 8 hours as needed By Mouth False Potassium chloride ER 10 mEq capsule,ext ended release [generic] 10 meq By Mouth 4 times a day For Hypokalemia 10 meq 2023 Active 2023 55470 08119 1 4 times a day By Mouth False Lorazepam 0.5 mg tablet [generic] 11/18 Inactiv e 2023 78201 05100 0 Lorazepam 0.5 mg tablet [generic] 0.5 mg By Mouth Every 8 hours as needed For Anxiety 0.5 mg 12/18 Active 2023 71426 20543 0 Every 8 hours as needed By Mouth False Flomax 0.4 mg capsule 11/18 Inactiv e 2023 31870 83138 1 Flomax 0.4 mg capsule 0.4 mg By Mouth Once daily For Urinary retention 0.4 mg 2023 Active 2023 30605 31790 1 Once daily By Mouth False Oxycodone 5 mg tablet [generic] 11/18 Inactiv e 2023 30097 39291 1 Oxycodone 5 mg tablet [generic] 5 mg By Mouth Every 6 hours as needed For Back Pain 5 mg 2023 Active 2023 60961 53743 1 Every 6 hours as needed By Mouth False Cipro 250 mg tablet 250 mg By Mouth Twice daily For UTI 250 mg 2023 Active 2023 51464 98310 1 Twice daily By Mouth False Problems [...] weight Temperature SpO2 Blood Sugar Pulse Respirations 91 94861 5 75.00 mm[Hg] - Sitting 140.00 mm[Hg] - Sitting 65 NI 98.00 Tympanic 95.00 % 102.00 /min 18.00/min 42336 918 74088 9 918 50123 2 75.00 mm[Hg] - Sitting 140.00 mm[Hg] - Sitting 98.00 Tympanic 102.00 /min 18.00/min 47737 918 63807 3 96930 918 86842 1 72.00 mm[Hg] - Sitting 138.00 mm[Hg] - Sitting 98.40 Tympanic 918 75996 4 88.00/ min 18.00/min 919 66990 4 71.00 mm[Hg] - Sitting 115.00 mm[Hg] - Sitting 98.30 Tympanic 97.00 % 86.00/ min 16.00/min 80283 919 96550 0 71.00 mm[Hg] - Sitting 115.00 mm[Hg] - Sitting 98.30 Tympanic 86.00/ min 16.00/min 59735 919 09729 7 71.00 mm[Hg] - Sitting 115.00 mm[Hg] - Sitting 98.30 Tympanic 86.00/ min 16.00/min 57816 920 66442 6 72.00 mm[Hg] - Sitting 112.00 mm[Hg] - Sitting 98.10 Tympanic 82.00/ min 18.00/min 920 91069 0 75.00 mm[Hg] - Sitting 130.00 mm[Hg] - Sitting 98.40 Forehead Scan 93.00 % 88.00/ min 18.00/min 94428 920 49648 2 75.00 mm[Hg] - Lying Down 130.00 mm[Hg] - Lying Down 98.40 Tympanic 88.00/ min 18.00/min 13206 920 31554 5 75.00 mm[Hg] - Lying Down 130.00 mm[Hg] - Lying Down 98.40 Tympanic 88.00/ min 18.00/min 04763 920 93717 6 199.00 NI 920 37401 3 75.00 mm[Hg] - Sitting 130.00 mm[Hg] - Sitting 98.40 Tympanic 88.00/ min 18.00/min 42818 921 73119 1 71.00 mm[Hg] - Lying Down 119.00 mm[Hg] - Lying Down 98.40 Forehead Scan 96.00 % 83.00/ min 16.00/min 38849 922 81040 6 71.00 mm[Hg] - Lying Down 128.00 mm[Hg] - Lying Down 98.30 Forehead Scan 94.00 % 84.00/ min 18.00/min 27046 923 80911 4 63.00 mm[Hg] - Sitting 105.00 mm[Hg] - Sitting 98.20 Tympanic 93.00 % 93.00/ min 18.00/min
--- OUTSIDE RECORDS SUMMARY | 2023-12-13 23:59 | External Medical Summary | Continuity Of Care Document ---
Author Name Unknown Address [address] [place] [address] Organization [facility] () Care Team Providers Care Gate Attendant Name Role Phone DO Parson Amy Primary Care Provider [phone] Allergies Allergy Reaction Start Date End Date [...] 3 0.1 mL 11/13 Inactiv e 2023 85681 88599 0 1 time Intrad ermal False Tubersol 5 tub. unit/0.1 mL intradermal injection solution [Tuberculin PPD] 0.1mL Intradermal 1 time For PPD 2nd Step Give 2nd Step PPD Day 1 and Read results Day 3 (schedule 7 days after 1st READ) 0.1mL 11/13 Inactiv e 2023 57732 27399 0 1 time Intrad ermal False DISCONTINUE as of 11/14/2023: Tubersol 5 tub. unit/0.1 mL intradermal injection solution [Tuberculin PPD] 11/13 Inactiv e 2023 89830 76229 0 Tubersol 5 tub. unit/0.1 mL intradermal injection solution 0.1 mL Intradermal 1 time For PPD Step 1 GIVE on Day 1 and read results Day 3 0.1 mL 11/16 Inactiv e 2023 67209 50493 1 1 time Intrad ermal False DISCONTINUE as of 11/14/2023: Tubersol 5 tub. unit/0.1 mL intradermal injection solution [Tuberculin PPD] 11/13 Inactiv e 2023 48600 27410 0 Tubersol 5 tub. unit/0.1 mL intradermal injection solution 0.1mL Intradermal 1 time For PPD 2nd Step Give 2nd Step PPD Day 1 and Read results Day 3 (schedule 7 days after 1st READ) 0.1mL 11/25 Active 2023 08709 30591 1 1 time Intrad ermal False Tylenol 325 mg tablet 2 tabs By Mouth Every 4 hours as needed For Pain DO NOT EXCEED 3000 MG APAP/24 Hours 2 tabs 202300 /0000 Active 2023 19296 06041 0 Every 4 hours as needed By Mouth False Tylenol 325 mg tablet 2 tabs By Mouth Every 4 hours as needed For Fever >100 DO NOT EXCEED 3000 MG APAP/24 Hours 2 tabs 202300 /0000 Active 2023 77360 79522 0 Every 4 hours as needed By Mouth False Dulcolax (bisacodyl) 10 mg rectal suppository One Suppository per rectum PRN if Milk of Magnisia ineffective. Give on day 5 of no BM 1 sup 2023 Active 2023 32082 78895 1 Daily as needed Rectal False Fleet Enema 19 gram-7 gram/118 mL Administer per rectum PRN one time if dulcolax suppository not effective. Give on day 6 of no BM 1 202300 0000 Active 2023 22547 85134 6 Daily as needed Rectal False Dextrose 50 % in water (D50W) intravenous solution [generic] Dextrose 50% reyes 20-50 ml (slow push) Intravenous if Glucagon not effective after 15 minutes. CALL 911 for ED Evaluation. 50% reyes 202300 /0000 Active 2023 18132 16601 9 Intrav enous False Glucagon (HCl) Emergency Kit 1 mg solution for injection Administer Glucagon 1 mg Intramuscular if 15 minutes after GLucose Gel is administered Glucose remains less than 70 1 mg 2023 Active 2023 49495 11333 2 Intram uscula r False Glucose Gel 40 % oral gel [Dextrose] PRN If resident is unable to swallow (with or without symptoms) and Glucose results less than 70 give GLucose 40% Gel 1 tube orally - Recheck Glucose 15 minutes after administratio n. 1 tube 2023 Active 2023 67722 58743 8 By Mouth False Lorazepam 0.5 mg tablet [generic] 0.5 mg By Mouth Every 8 hours as needed For Anxiety 0.5 mg 2023 Active 2023 21139 16127 0 Every 8 hours as needed By Mouth False Potassium chloride ER 20 mEq tablet,exte nded release [generic] 40 meq By Mouth Once daily For Hypokalemia 40 meq 11/13 Inactiv e 2023 90936 69800 1 Once daily By Mouth False Colesevelam 625 mg tablet [generic] 1250 mg By Mouth Twice daily For TYPE 2 DIABETES MELLITUS WITHOUT COMPLICATIONS 1250 mg 2023 Active 2023 04574 85204 1 Twice daily By Mouth E11.9 False Pioglitazon e 15 mg tablet [generic] 15 mg By Mouth Once daily For TYPE 2 DIABETES MELLITUS WITHOUT COMPLICATIONS 15 mg 11/14 Inactiv e 2023 68477 50788 1 Once daily By Mouth E11.9 False Cholecalcif hardeep (vitamin D3) 50 mcg (2,000 unit) tablet [generic] 50 mcg By Mouth Once daily For Supplement 50 mcg 2023 Active 2023 21640 22586 1 Once daily By Mouth False Colchicine 0.6 mg tablet [generic] 0.6 mg By Mouth Twice daily As Needed For Gout 0.6 mg 2023 Active 2023 67276 59069 4 Twice daily By Mouth False Levothyroxi ne 200 mcg tablet [generic] 200 mcg By Mouth Once daily For Hypothyroidis m 200 mcg 2023 Active 2023 49985 72383 0 Once daily By Mouth False Ondansetron 4 mg disintegrat ing tablet [generic] 4 mg By Mouth Every 6 hours as needed For Nausea 4 mg 11/12 Inactiv e 2023 03116 40308 4 Every 6 hours as needed By Mouth False Docusate sodium 100 mg capsule [generic] 100 mg By Mouth Twice daily For Constipation 100 mg 2023 Active 2023 06611 90108 1 Twice daily By Mouth False Oxycodone 5 mg tablet [generic] 5 mg By Mouth Every 6 hours as needed For Pain 5 mg 11/12 Inactiv e 2023 35534 47495 1 Every 6 hours as needed By Mouth False Oxycodone 5 mg tablet [generic] 5 mg By Mouth Every 6 hours as needed For Pain 5 mg 2023 Active 2023 45363 21881 1 Every 6 hours as needed By Mouth False Milk of Magnesia 400 mg/5 mL oral suspension 30 ml By Mouth one time per day as needed if no BM x 3 days For Constipation 30 ml 2023 Active 2023 26035 12569 2 By Mouth False Ondansetron 4 mg disintegrat ing tablet [generic] 11/12 Inactiv e 2023 80985 58942 4 Ondansetron 4 mg disintegrat ing tablet [generic] 4 mg By Mouth Every 6 hours as needed For Nausea 4 mg 11/14 Inactiv e 2023 53500 45332 4 Every 6 hours as needed By Mouth False Potassium chloride ER 10 mEq capsule,ext ended release [generic] 40 mEq By Mouth Once daily For hypokalemia 40 mEq 202300 Active 2023 03515 43229 1 Once daily By Mouth False Potassium chloride ER 10 mEq capsule,ext ended release [generic] 4 capsules By Mouth At bedtime For hypokalemia 4 capsule s 11/16 Inactiv e 2023 59415 72666 1 At bedtime By Mouth False Flomax 0.4 mg capsule 0.4 mg By Mouth At bedtime For Urinary retention 0.4 mg 2023 Active 2023 27214 07813 1 At bedtime By Mouth False STOOL CULTURE Once daily Obtain stool culture, add C. Diff to routine stool culture For Rule out C. Diff 1x 2023 Active 2023 Once daily Other False Butrans 5 mcg/hour transdermal patch 1 patch Transdermal Every 7 Days For Pain 1 patch 2023 Active 2023 38410 85500 4 Every week Transd ermal False Pantoprazol e 40 mg tablet,nu yed release [generic] 40 mg By Mouth Twice daily For gerd 40 mg 2023 Active 2023 31411 05517 0 Twice daily By Mouth False Scopolamine 1 mg over 3 days transdermal patch [generic] 1 Transdermal Every 72 hours For nausea 1 11/21 Active 2023 74854 13577 4 Every 72 hours Transd ermal False Ondansetron 4 mg disintegrat ing tablet [generic] 11/14 Inactiv e 2023 26354 37422 4 Ondansetron 4 mg disintegrat ing tablet [generic] 4 mg By Mouth Every 8 hours For Nausea 4 mg 2023 Active 2023 56819 79867 4 Every 8 hours By Mouth False Miralax 17 gram oral powder packet 8.5 g (1/2 capful) By Mouth Once daily For constipation 8.5 g 2023 Active 2023 70103 58361 6 Once daily By Mouth False Pioglitazon e 15 mg tablet [generic] 11/14 Inactiv e 2023 46351 23715 1 E11.9 Pioglitazon e 15 mg tablet [generic] 7.5mg ( half a tab) By Mouth Once daily For TYPE 2 DIABETES MELLITUS WITHOUT COMPLICATIONS 7.5mg 2023 Active 2023 24079 33109 1 Once daily By Mouth E11.9 False Mylanta Coat-Cool 1,200 mg-270 mg-80 mg/10 mL oral suspension 10 ml By Mouth Every 8 hours As Needed For heartburn, indigestion, gas 10 ml 2023 Active 202306 1 Every 8 hours By Mouth False [...] weight Temperature SpO2 Blood Sugar Pulse Respirations 47392 918 68334 5 75.00 mm[Hg] - Sitting 140.00 mm[Hg] - Sitting 65 NI 98.00 Tympanic 95.00 % 102.00 /min 18.00/min 96106 918 32218 9 08207 918 66448 2 75.00 mm[Hg] - Sitting 140.00 mm[Hg] - Sitting 98.00 Tympanic 102.00 /min 18.00/min 48410 918 21220 3 01361 918 98995 1 72.00 mm[Hg] - Sitting 138.00 mm[Hg] - Sitting 98.40 Tympanic 40605 918 75057 4 88.00/ min 18.00/min 00727 919 13481 4 71.00 mm[Hg] - Sitting 115.00 mm[Hg] - Sitting 98.30 Tympanic 97.00 % 86.00/ min 16.00/min 06561 919 91637 0 71.00 mm[Hg] - Sitting 115.00 mm[Hg] - Sitting 98.30 Tympanic 86.00/ min 16.00/min 98589 919 43974 7 71.00 mm[Hg] - Sitting 115.00 mm[Hg] - Sitting 98.30 Tympanic 86.00/ min 16.00/min 80690 920 20479 6 72.00 mm[Hg] - Sitting 112.00 mm[Hg] - Sitting 98.10 Tympanic 82.00/ min 18.00/min 97906 920 33776 0 75.00 mm[Hg] - Sitting 130.00 mm[Hg] - Sitting 98.40 Forehead Scan 93.00 % 88.00/ min 18.00/min 49870 920 27324 2 75.00 mm[Hg] - Lying Down 130.00 mm[Hg] - Lying Down 98.40 Tympanic 88.00/ min 18.00/min 22897 920 78671 5 75.00 mm[Hg] - Lying Down 130.00 mm[Hg] - Lying Down 98.40 Tympanic 88.00/ min 18.00/min 84596 920 33306 6 199.00 NI 43161 920 55016 3 75.00 mm[Hg] - Sitting 130.00 mm[Hg] - Sitting 98.40 Tympanic 88.00/ min 18.00/min 10238 921 90629 1 71.00 mm[Hg] - Lying Down 119.00 mm[Hg] - Lying Down 98.40 Forehead Scan 96.00 % 83.00/ min 16.00/min 17693 922 08578 6 71.00 mm[Hg] - Lying Down 128.00 mm[Hg] - Lying Down 98.30 Forehead Scan 94.00 % 84.00/ min 18.00/min
--- OUTSIDE RECORDS SUMMARY | 2023-12-13 23:59 | External Medical Summary | Continuity Of Care Document ---
Author Name Unknown Address [address] [place] [address] Organization [facility] () Care Team Providers Care Family Reunification Specialist Name Role Phone DO Parson Amy Primary Care Provider [phone] Allergies Allergy Reaction Start Date End Date [...] 3 0.1 mL 11/13 Inactiv e 2023 91673 11150 0 1 time Intrad ermal False Tubersol 5 tub. unit/0.1 mL intradermal injection solution [Tuberculin PPD] 0.1mL Intradermal 1 time For PPD 2nd Step Give 2nd Step PPD Day 1 and Read results Day 3 (schedule 7 days after 1st READ) 0.1mL 11/13 Inactiv e 2023 22360 75097 0 1 time Intrad ermal False DISCONTINUE as of 11/14/2023: Tubersol 5 tub. unit/0.1 mL intradermal injection solution [Tuberculin PPD] 11/13 Inactiv e 2023 36560 01773 0 Tubersol 5 tub. unit/0.1 mL intradermal injection solution 0.1 mL Intradermal 1 time For PPD Step 1 GIVE on Day 1 and read results Day 3 0.1 mL 11/16 Inactiv e 2023 61014 87663 1 1 time Intrad ermal False DISCONTINUE as of 11/14/2023: Tubersol 5 tub. unit/0.1 mL intradermal injection solution [Tuberculin PPD] 11/13 Inactiv e 2023 53703 65997 0 Tubersol 5 tub. unit/0.1 mL intradermal injection solution 0.1mL Intradermal 1 time For PPD 2nd Step Give 2nd Step PPD Day 1 and Read results Day 3 (schedule 7 days after 1st READ) 0.1mL 11/25 Active 2023 18387 75493 1 1 time Intrad ermal False Tylenol 325 mg tablet 2 tabs By Mouth Every 4 hours as needed For Pain DO NOT EXCEED 3000 MG APAP/24 Hours 2 tabs 202300 /0000 Active 2023 66777 62865 0 Every 4 hours as needed By Mouth False Tylenol 325 mg tablet 2 tabs By Mouth Every 4 hours as needed For Fever >100 DO NOT EXCEED 3000 MG APAP/24 Hours 2 tabs 202300 /0000 Active 2023 76173 24763 0 Every 4 hours as needed By Mouth False Dulcolax (bisacodyl) 10 mg rectal suppository One Suppository per rectum PRN if Milk of Magnisia ineffective. Give on day 5 of no BM 1 sup 2023 Active 2023 08293 38435 1 Daily as needed Rectal False Fleet Enema 19 gram-7 gram/118 mL Administer per rectum PRN one time if dulcolax suppository not effective. Give on day 6 of no BM 1 202300 0000 Active 2023 97997 79373 6 Daily as needed Rectal False Dextrose 50 % in water (D50W) intravenous solution [generic] Dextrose 50% reyes 20-50 ml (slow push) Intravenous if Glucagon not effective after 15 minutes. CALL 911 for ED Evaluation. 50% reyes 202300 /0000 Active 2023 67402 40523 9 Intrav enous False Glucagon (HCl) Emergency Kit 1 mg solution for injection Administer Glucagon 1 mg Intramuscular if 15 minutes after GLucose Gel is administered Glucose remains less than 70 1 mg 2023 Active 2023 25322 07573 2 Intram uscula r False Glucose Gel 40 % oral gel [Dextrose] PRN If resident is unable to swallow (with or without symptoms) and Glucose results less than 70 give GLucose 40% Gel 1 tube orally - Recheck Glucose 15 minutes after administratio n. 1 tube 2023 Active 2023 19312 99697 8 By Mouth False Lorazepam 0.5 mg tablet [generic] 0.5 mg By Mouth Every 8 hours as needed For Anxiety 0.5 mg 2023 Active 2023 62947 34743 0 Every 8 hours as needed By Mouth False Potassium chloride ER 20 mEq tablet,exte nded release [generic] 40 meq By Mouth Once daily For Hypokalemia 40 meq 11/13 Inactiv e 2023 41673 70389 1 Once daily By Mouth False Colesevelam 625 mg tablet [generic] 1250 mg By Mouth Twice daily For TYPE 2 DIABETES MELLITUS WITHOUT COMPLICATIONS 1250 mg 2023 Active 2023 94104 21538 1 Twice daily By Mouth E11.9 False Pioglitazon e 15 mg tablet [generic] 15 mg By Mouth Once daily For TYPE 2 DIABETES MELLITUS WITHOUT COMPLICATIONS 15 mg 11/14 Inactiv e 2023 87085 91128 1 Once daily By Mouth E11.9 False Cholecalcif hardeep (vitamin D3) 50 mcg (2,000 unit) tablet [generic] 50 mcg By Mouth Once daily For Supplement 50 mcg 2023 Active 2023 73288 68785 1 Once daily By Mouth False Colchicine 0.6 mg tablet [generic] 0.6 mg By Mouth Twice daily As Needed For Gout 0.6 mg 2023 Active 2023 87692 02774 4 Twice daily By Mouth False Levothyroxi ne 200 mcg tablet [generic] 200 mcg By Mouth Once daily For Hypothyroidis m 200 mcg 2023 Active 2023 92708 85658 0 Once daily By Mouth False Ondansetron 4 mg disintegrat ing tablet [generic] 4 mg By Mouth Every 6 hours as needed For Nausea 4 mg 11/12 Inactiv e 2023 51527 34936 4 Every 6 hours as needed By Mouth False Docusate sodium 100 mg capsule [generic] 100 mg By Mouth Twice daily For Constipation 100 mg 2023 Active 2023 93579 37914 1 Twice daily By Mouth False Oxycodone 5 mg tablet [generic] 5 mg By Mouth Every 6 hours as needed For Pain 5 mg 11/12 Inactiv e 2023 45246 79780 1 Every 6 hours as needed By Mouth False Oxycodone 5 mg tablet [generic] 5 mg By Mouth Every 6 hours as needed For Pain 5 mg 2023 Active 2023 07102 55533 1 Every 6 hours as needed By Mouth False Milk of Magnesia 400 mg/5 mL oral suspension 30 ml By Mouth one time per day as needed if no BM x 3 days For Constipation 30 ml 2023 Active 2023 15306 72801 2 By Mouth False Ondansetron 4 mg disintegrat ing tablet [generic] 11/12 Inactiv e 2023 83620 96858 4 Ondansetron 4 mg disintegrat ing tablet [generic] 4 mg By Mouth Every 6 hours as needed For Nausea 4 mg 11/14 Inactiv e 2023 74575 98273 4 Every 6 hours as needed By Mouth False Potassium chloride ER 10 mEq capsule,ext ended release [generic] 40 mEq By Mouth Once daily For hypokalemia 40 mEq 202300 Active 2023 87970 16019 1 Once daily By Mouth False Potassium chloride ER 10 mEq capsule,ext ended release [generic] 4 capsules By Mouth At bedtime For hypokalemia 4 capsule s 11/16 Inactiv e 2023 27303 93938 1 At bedtime By Mouth False Flomax 0.4 mg capsule 0.4 mg By Mouth At bedtime For Urinary retention 0.4 mg 2023 Active 2023 09668 56915 1 At bedtime By Mouth False STOOL CULTURE Once daily Obtain stool culture, add C. Diff to routine stool culture For Rule out C. Diff 1x 2023 Active 2023 Once daily Other False Butrans 5 mcg/hour transdermal patch 1 patch Transdermal Every 7 Days For Pain 1 patch 2023 Active 2023 88421 18369 4 Every week Transd ermal False Pantoprazol e 40 mg tablet,nu yed release [generic] 40 mg By Mouth Twice daily For gerd 40 mg 2023 Active 2023 44782 49332 0 Twice daily By Mouth False Scopolamine 1 mg over 3 days transdermal patch [generic] 1 Transdermal Every 72 hours For nausea 1 11/21 Active 2023 45924 99912 4 Every 72 hours Transd ermal False Ondansetron 4 mg disintegrat ing tablet [generic] 11/14 Inactiv e 2023 44408 15597 4 Ondansetron 4 mg disintegrat ing tablet [generic] 4 mg By Mouth Every 8 hours For Nausea 4 mg 2023 Active 2023 13058 54959 4 Every 8 hours By Mouth False Miralax 17 gram oral powder packet 8.5 g (1/2 capful) By Mouth Once daily For constipation 8.5 g 2023 Active 2023 25970 84052 6 Once daily By Mouth False Pioglitazon e 15 mg tablet [generic] 11/14 Inactiv e 2023 31889 57822 1 E11.9 Pioglitazon e 15 mg tablet [generic] 7.5mg ( half a tab) By Mouth Once daily For TYPE 2 DIABETES MELLITUS WITHOUT COMPLICATIONS 7.5mg 2023 Active 2023 33480 54146 1 Once daily By Mouth E11.9 False [...] weight Temperature SpO2 Blood Sugar Pulse Respirations 36917 5 75.00 mm[Hg] - Sitting 140.00 mm[Hg] - Sitting 65 NI 98.00 Tympanic 95.00 % 102.00 /min 18.00/min 8 23444 9 84916 2 75.00 mm[Hg] - Sitting 140.00 mm[Hg] - Sitting 98.00 Tympanic 102.00 /min 18.00/min 8 27675 3 50188 918 14046 1 72.00 mm[Hg] - Sitting 138.00 mm[Hg] - Sitting 98.40 Tympanic 25987 918 45408 4 88.00/ min 18.00/min 31137 919 75808 4 71.00 mm[Hg] - Sitting 115.00 mm[Hg] - Sitting 98.30 Tympanic 97.00 % 86.00/ min 16.00/min 83596 919 29837 0 71.00 mm[Hg] - Sitting 115.00 mm[Hg] - Sitting 98.30 Tympanic 86.00/ min 16.00/min 92400 919 49453 7 71.00 mm[Hg] - Sitting 115.00 mm[Hg] - Sitting 98.30 Tympanic 86.00/ min 16.00/min 42076 920 93352 6 72.00 mm[Hg] - Sitting 112.00 mm[Hg] - Sitting 98.10 Tympanic 82.00/ min 18.00/min 87533 920 27729 0 75.00 mm[Hg] - Sitting 130.00 mm[Hg] - Sitting 98.40 Forehead Scan 93.00 % 88.00/ min 18.00/min 45105 920 11087 2 75.00 mm[Hg] - Lying Down 130.00 mm[Hg] - Lying Down 98.40 Tympanic 88.00/ min 18.00/min 89533 920 62728 5 75.00 mm[Hg] - Lying Down 130.00 mm[Hg] - Lying Down 98.40 Tympanic 88.00/ min 18.00/min 99484 920 66886 6 [place] [address] 920 12038 3 75.00 mm[Hg] - Sitting 130.00 mm[Hg] - Sitting 98.40 Tympanic 88.00/ min 18.00/min 39718 921 86347 1 71.00 mm[Hg] - Lying Down 119.00 mm[Hg] - Lying Down 98.40 Forehead Scan 96.00 % 83.00/ min 16.00/min 09445 922 07659 6 71.00 mm[Hg] - Lying Down 128.00 mm[Hg] - Lying Down 98.30 Forehead Scan 94.00 % 84.00/ min 18.00/min 25853 923 62927 4 63.00 mm[Hg] - Sitting 105.00 mm[Hg] - Sitting 98.20 Tympanic 93.00 % 93.00/ min 18.00/min
--- OUTSIDE RECORDS SUMMARY | 2023-12-13 23:59 | External Medical Summary | Continuity Of Care Document ---
Author Name Unknown Address [address] [place] [address] Organization [facility] [place] () Care Team Providers Care Help Desk Administrator Name Role Phone DO Parson Amy Primary Care Provider [phone] Allergies Allergy Reaction Start Date End Date [...] 3 0.1 mL 11/13 Inactiv e 2023 40829 09368 0 1 time Intrad ermal False Tubersol 5 tub. unit/0.1 mL intradermal injection solution [Tuberculin PPD] 0.1mL Intradermal 1 time For PPD 2nd Step Give 2nd Step PPD Day 1 and Read results Day 3 (schedule 7 days after 1st READ) 0.1mL 11/13 Inactiv e 2023 58676 66158 0 1 time Intrad ermal False DISCONTINUE as of 11/14/2023: Tubersol 5 tub. unit/0.1 mL intradermal injection solution [Tuberculin PPD] 11/13 Inactiv e 2023 10202 49446 0 Tubersol 5 tub. unit/0.1 mL intradermal injection solution 0.1 mL Intradermal 1 time For PPD Step 1 GIVE on Day 1 and read results Day 3 0.1 mL 11/16 Inactiv e 2023 24929 31422 1 1 time Intrad ermal False DISCONTINUE as of 11/14/2023: Tubersol 5 tub. unit/0.1 mL intradermal injection solution [Tuberculin PPD] 11/13 Inactiv e 2023 25434 12509 0 Tubersol 5 tub. unit/0.1 mL intradermal injection solution 0.1mL Intradermal 1 time For PPD 2nd Step Give 2nd Step PPD Day 1 and Read results Day 3 (schedule 7 days after 1st READ) 0.1mL 11/25 Active 2023 80619 33908 1 1 time Intrad ermal False Tylenol 325 mg tablet 2 tabs By Mouth Every 4 hours as needed For Pain DO NOT EXCEED 3000 MG APAP/24 Hours 2 tabs 202300 /0000 Active 2023 91312 60144 0 Every 4 hours as needed By Mouth False Tylenol 325 mg tablet 2 tabs By Mouth Every 4 hours as needed For Fever >100 DO NOT EXCEED 3000 MG APAP/24 Hours 2 tabs 202300 /0000 Active 2023 48989 79533 0 Every 4 hours as needed By Mouth False Dulcolax (bisacodyl) 10 mg rectal suppository One Suppository per rectum PRN if Milk of Magnisia ineffective. Give on day 5 of no BM 1 sup 2023 Active 2023 91876 15417 1 Daily as needed Rectal False Fleet Enema 19 gram-7 gram/118 mL Administer per rectum PRN one time if dulcolax suppository not effective. Give on day 6 of no BM 1 202300 0000 Active 2023 36658 44373 6 Daily as needed Rectal False Dextrose 50 % in water (D50W) intravenous solution [generic] Dextrose 50% reyes 20-50 ml (slow push) Intravenous if Glucagon not effective after 15 minutes. CALL 911 for ED Evaluation. 50% reyes 202300 /0000 Active 2023 58674 12800 9 Intrav enous False Glucagon (HCl) Emergency Kit 1 mg solution for injection Administer Glucagon 1 mg Intramuscular if 15 minutes after GLucose Gel is administered Glucose remains less than 70 1 mg 2023 Active 2023 98222 64203 2 Intram uscula r False Glucose Gel 40 % oral gel [Dextrose] PRN If resident is unable to swallow (with or without symptoms) and Glucose results less than 70 give GLucose 40% Gel 1 tube orally - Recheck Glucose 15 minutes after administratio n. 1 tube 2023 Active 2023 18946 15954 8 By Mouth False Lorazepam 0.5 mg tablet [generic] 0.5 mg By Mouth Every 8 hours as needed For Anxiety 0.5 mg 11/18 Inactiv e 2023 65892 56683 0 Every 8 hours as needed By Mouth False Potassium chloride ER 20 mEq tablet,exte nded release [generic] 40 meq By Mouth Once daily For Hypokalemia 40 meq 11/13 Inactiv e 2023 64835 00442 1 Once daily By Mouth False Colesevelam 625 mg tablet [generic] 1250 mg By Mouth Twice daily For TYPE 2 DIABETES MELLITUS WITHOUT COMPLICATIONS 1250 mg 2023 Active 2023 50268 46527 1 Twice daily By Mouth E11.9 False Pioglitazon e 15 mg tablet [generic] 15 mg By Mouth Once daily For TYPE 2 DIABETES MELLITUS WITHOUT COMPLICATIONS 15 mg 11/14 Inactiv e 2023 96806 81816 1 Once daily By Mouth E11.9 False Cholecalcif hardeep (vitamin D3) 50 mcg (2,000 unit) tablet [generic] 50 mcg By Mouth Once daily For Supplement 50 mcg 2023 Active 2023 37692 91343 1 Once daily By Mouth False Colchicine 0.6 mg tablet [generic] 0.6 mg By Mouth Twice daily As Needed For Gout 0.6 mg 2023 Active 2023 54514 65479 4 Twice daily By Mouth False Levothyroxi ne 200 mcg tablet [generic] 200 mcg By Mouth Once daily For Hypothyroidis m 200 mcg 202300 Active 2023 35749 46570 0 Once daily By Mouth False Ondansetron 4 mg disintegrat ing tablet [generic] 4 mg By Mouth Every 6 hours as needed For Nausea 4 mg 11/12 Inactiv e 2023 01577 60245 4 Every 6 hours as needed By Mouth False Docusate sodium 100 mg capsule [generic] 100 mg By Mouth Twice daily For Constipation 100 mg 202300 Active 2023 01972 21517 1 Twice daily By Mouth False Oxycodone 5 mg tablet [generic] 5 mg By Mouth Every 6 hours as needed For Pain 5 mg 11/12 Inactiv e 2023 86880 66843 1 Every 6 hours as needed By Mouth False Oxycodone 5 mg tablet [generic] 5 mg By Mouth Every 6 hours as needed For Pain 5 mg 202300 Active 2023 52784 72538 1 Every 6 hours as needed By Mouth False Milk of Magnesia 400 mg/5 mL oral suspension 30 ml By Mouth one time per day as needed if no BM x 3 days For Constipation 30 ml 202300 Active 2023 94670 18310 2 By Mouth False Ondansetron 4 mg disintegrat ing tablet [generic] 11/12 Inactiv e 2023 75452 87026 4 Ondansetron 4 mg disintegrat ing tablet [generic] 4 mg By Mouth Every 6 hours as needed For Nausea 4 mg 11/14 Inactiv e 2023 87368 22357 4 Every 6 hours as needed By Mouth False Potassium chloride ER 10 mEq capsule,ext ended release [generic] 40 mEq By Mouth Once daily For hypokalemia 40 mEq 11/17 Inactiv e 2023 68785 20711 1 Once daily By Mouth False Potassium chloride ER 10 mEq capsule,ext ended release [generic] 4 capsules By Mouth At bedtime For hypokalemia 4 capsule s 11/164 Inactiv e 2023 04016 83162 1 At bedtime By Mouth False Flomax 0.4 mg capsule 0.4 mg By Mouth At bedtime For Urinary retention 0.4 mg 11/18 Inactiv e 2023 16832 05076 1 At bedtime By Mouth False STOOL CULTURE Once daily Obtain stool culture, add C. Diff to routine stool culture For Rule out C. Diff 1x 2023 Active 2023 Once daily Other False Butrans 5 mcg/hour transdermal patch 1 patch Transdermal Every 7 Days For Pain 1 patch 2023 Active 2023 40817 86441 4 Every week Transd ermal False Pantoprazol e 40 mg tablet,nu yed release [generic] 40 mg By Mouth Twice daily For gerd 40 mg 2023 Active 2023 24958 25046 0 Twice daily By Mouth False Scopolamine 1 mg over 3 days transdermal patch [generic] 1 Transdermal Every 72 hours For nausea 1 11/21 Active 2023 79735 20944 4 Every 72 hours Transd ermal False Ondansetron 4 mg disintegrat ing tablet [generic] 11/14 Inactiv e 2023 46862 47111 4 Ondansetron 4 mg disintegrat ing tablet [generic] 4 mg By Mouth Every 8 hours For Nausea 4 mg 2023 Active 2023 20741 10988 4 Every 8 hours By Mouth False Miralax 17 gram oral powder packet 8.5 g (1/2 capful) By Mouth Once daily For constipation 8.5 g 2023 Active 2023 73384 74468 6 Once daily By Mouth False Pioglitazon e 15 mg tablet [generic] 11/14 Inactiv e 2023 67948 17509 1 E11.9 Pioglitazon e 15 mg tablet [generic] 7.5mg ( half a tab) By Mouth Once daily For TYPE 2 DIABETES MELLITUS WITHOUT COMPLICATIONS 7.5mg 2023 Active 2023 83632 25050 1 Once daily By Mouth E11.9 False Mylanta Coat-Cool 1,200 mg-270 mg-80 mg/10 mL oral suspension 10 ml By Mouth Every 8 hours As Needed For heartburn, indigestion, gas 10 ml 2023 Active 2023 29398 64967 1 Every 8 hours By Mouth False Prochlorper azine maleate 5 mg tablet [generic] 5 mg By Mouth Every 8 hours as needed For Nausea 5 mg 2023 Active 2023 95296 64126 1 Every 8 hours as needed By Mouth False Potassium chloride ER 10 mEq capsule,ext ended release [generic] 10 meq By Mouth 4 times a day For Hypokalemia 10 meq 2023 Active 2023 83597 95667 1 4 times a day By Mouth False Lorazepam 0.5 mg tablet [generic] 11/18 Inactiv e 2023 34555 91270 0 Lorazepam 0.5 mg tablet [generic] 0.5 mg By Mouth Every 8 hours as needed For Anxiety 0.5 mg 12/18 Active 2023 83221 05279 0 Every 8 hours as needed By Mouth False Flomax 0.4 mg capsule 11/18 Inactiv e 2023 64830 35895 1 Flomax 0.4 mg capsule 0.4 mg By Mouth Once daily For Urinary retention 0.4 mg 2023 Active 2023 24004 26825 1 Once daily By Mouth False Problems [...] weight Temperature SpO2 Blood Sugar Pulse Respirations 78558 5 75.00 mm[Hg] - Sitting 140.00 mm[Hg] - Sitting 65 NI 98.00 Tympanic 95.00 % 102.00 /min 18.00/min 27475 918 57254 9 70334 918 28527 2 75.00 mm[Hg] - Sitting 140.00 mm[Hg] - Sitting 98.00 Tympanic 102.00 /min 18.00/min 85341 918 85104 3 38143 918 57390 1 72.00 mm[Hg] - Sitting 138.00 mm[Hg] - Sitting 98.40 Tympanic 85287 918 37594 4 88.00/ min 18.00/min 36121 919 24572 4 71.00 mm[Hg] - Sitting 115.00 mm[Hg] - Sitting 98.30 Tympanic 97.00 % 86.00/ min 16.00/min 66689 919 15962 0 71.00 mm[Hg] - Sitting 115.00 mm[Hg] - Sitting 98.30 Tympanic 86.00/ min 16.00/min 32710 919 91730 7 71.00 mm[Hg] - Sitting 115.00 mm[Hg] - Sitting 98.30 Tympanic 86.00/ min 16.00/min 51204 920 70289 6 72.00 mm[Hg] - Sitting 112.00 mm[Hg] - Sitting 98.10 Tympanic 82.00/ min 18.00/min 62543 920 77384 0 75.00 mm[Hg] - Sitting 130.00 mm[Hg] - Sitting 98.40 Forehead Scan 93.00 % 88.00/ min 18.00/min 98044 920 37806 2 75.00 mm[Hg] - Lying Down 130.00 mm[Hg] - Lying Down 98.40 Tympanic 88.00/ min 18.00/min 45583 920 73011 5 75.00 mm[Hg] - Lying Down 130.00 mm[Hg] - Lying Down 98.40 Tympanic 88.00/ min 18.00/min 34029 920 11199 6 199.00 NI 920 76577 3 75.00 mm[Hg] - Sitting 130.00 mm[Hg] - Sitting 98.40 Tympanic 88.00/ min 18.00/min 22736 921 94206 1 71.00 mm[Hg] - Lying Down 119.00 mm[Hg] - Lying Down 98.40 Forehead Scan 96.00 % 83.00/ min 16.00/min 24974 922 80194 6 71.00 mm[Hg] - Lying Down 128.00 mm[Hg] - Lying Down 98.30 Forehead Scan 94.00 % 84.00/ min 18.00/min 91320 923 75893 4 63.00 mm[Hg] - Sitting 105.00 mm[Hg] - Sitting 98.20 Tympanic 93.00 % 93.00/ min 18.00/min
--- OUTSIDE RECORDS SUMMARY | 2023-12-13 23:59 | External Medical Summary | Continuity Of Care Document ---
Author Name Unknown Address [address] [place] [address] Organization [facility] () Care Team Providers [employer] Name Role Phone DO Parson Amy Primary Care Provider [phone] Allergies Allergy Reaction Start Date End Date [...] 3 0.1 mL 11/13 Inactiv e 2023 92128 66216 0 1 time Intrad ermal False Tubersol 5 tub. unit/0.1 mL intradermal injection solution [Tuberculin PPD] 0.1mL Intradermal 1 time For PPD 2nd Step Give 2nd Step PPD Day 1 and Read results Day 3 (schedule 7 days after 1st READ) 0.1mL 11/13 Inactiv e 2023 90704 04641 0 1 time Intrad ermal False DISCONTINUE as of 11/14/2023: Tubersol 5 tub. unit/0.1 mL intradermal injection solution [Tuberculin PPD] 11/13 Inactiv e 2023 71402 06596 0 Tubersol 5 tub. unit/0.1 mL intradermal injection solution 0.1 mL Intradermal 1 time For PPD Step 1 GIVE on Day 1 and read results Day 3 0.1 mL 11/16 Inactiv e 2023 66898 38851 1 1 time Intrad ermal False DISCONTINUE as of 11/14/2023: Tubersol 5 tub. unit/0.1 mL intradermal injection solution [Tuberculin PPD] 11/13 Inactiv e 2023 76738 87696 0 Tubersol 5 tub. unit/0.1 mL intradermal injection solution 0.1mL Intradermal 1 time For PPD 2nd Step Give 2nd Step PPD Day 1 and Read results Day 3 (schedule 7 days after 1st READ) 0.1mL 11/25 Active 2023 40848 40273 1 1 time Intrad ermal False Tylenol 325 mg tablet 2 tabs By Mouth Every 4 hours as needed For Pain DO NOT EXCEED 3000 MG APAP/24 Hours 2 tabs 202300 /0000 Active 2023 01119 80711 0 Every 4 hours as needed By Mouth False Tylenol 325 mg tablet 2 tabs By Mouth Every 4 hours as needed For Fever >100 DO NOT EXCEED 3000 MG APAP/24 Hours 2 tabs 202300 /0000 Active 2023 95821 92666 0 Every 4 hours as needed By Mouth False Dulcolax (bisacodyl) 10 mg rectal suppository One Suppository per rectum PRN if Milk of Magnisia ineffective. Give on day 5 of no BM 1 sup 2023 Active 2023 73193 93156 1 Daily as needed Rectal False Fleet Enema 19 gram-7 gram/118 mL Administer per rectum PRN one time if dulcolax suppository not effective. Give on day 6 of no BM 1 202300 0000 Active 2023 90431 80382 6 Daily as needed Rectal False Dextrose 50 % in water (D50W) intravenous solution [generic] Dextrose 50% ryees 20-50 ml (slow push) Intravenous if Glucagon not effective after 15 minutes. CALL 911 for ED Evaluation. 50% reyes 202300 /0000 Active 2023 49827 41988 9 Intrav enous False Glucagon (HCl) Emergency Kit 1 mg solution for injection Administer Glucagon 1 mg Intramuscular if 15 minutes after GLucose Gel is administered Glucose remains less than 70 1 mg 2023 Active 2023 62469 48362 2 Intram uscula r False Glucose Gel 40 % oral gel [Dextrose] PRN If resident is unable to swallow (with or without symptoms) and Glucose results less than 70 give GLucose 40% Gel 1 tube orally - Recheck Glucose 15 minutes after administratio n. 1 tube 2023 Active 2023 97840 77694 8 By Mouth False Lorazepam 0.5 mg tablet [generic] 0.5 mg By Mouth Every 8 hours as needed For Anxiety 0.5 mg 2023 Active 2023 23266 18373 0 Every 8 hours as needed By Mouth False Potassium chloride ER 20 mEq tablet,exte nded release [generic] 40 meq By Mouth Once daily For Hypokalemia 40 meq 11/13 Inactiv e 2023 37112 88921 1 Once daily By Mouth False Colesevelam 625 mg tablet [generic] 1250 mg By Mouth Twice daily For TYPE 2 DIABETES MELLITUS WITHOUT COMPLICATIONS 1250 mg 2023 Active 2023 11229 32529 1 Twice daily By Mouth E11.9 False Pioglitazon e 15 mg tablet [generic] 15 mg By Mouth Once daily For TYPE 2 DIABETES MELLITUS WITHOUT COMPLICATIONS 15 mg 11/14 Inactiv e 2023 74838 40109 1 Once daily By Mouth E11.9 False Cholecalcif hardeep (vitamin D3) 50 mcg (2,000 unit) tablet [generic] 50 mcg By Mouth Once daily For Supplement 50 mcg 2023 Active 2023 66020 43196 1 Once daily By Mouth False Colchicine 0.6 mg tablet [generic] 0.6 mg By Mouth Twice daily As Needed For Gout 0.6 mg 2023 Active 2023 42576 75438 4 Twice daily By Mouth False Levothyroxi ne 200 mcg tablet [generic] 200 mcg By Mouth Once daily For Hypothyroidis m 200 mcg 202300 Active 2023 87410 38779 0 Once daily By Mouth False Ondansetron 4 mg disintegrat ing tablet [generic] 4 mg By Mouth Every 6 hours as needed For Nausea 4 mg 11/12 Inactiv e 2023 56943 69819 4 Every 6 hours as needed By Mouth False Docusate sodium 100 mg capsule [generic] 100 mg By Mouth Twice daily For Constipation 100 mg 202300 Active 2023 16471 13383 1 Twice daily By Mouth False Oxycodone 5 mg tablet [generic] 5 mg By Mouth Every 6 hours as needed For Pain 5 mg 11/12 Inactiv e 2023 70346 92774 1 Every 6 hours as needed By Mouth False Oxycodone 5 mg tablet [generic] 5 mg By Mouth Every 6 hours as needed For Pain 5 mg 202300 Active 2023 52598 67451 1 Every 6 hours as needed By Mouth False Milk of Magnesia 400 mg/5 mL oral suspension 30 ml By Mouth one time per day as needed if no BM x 3 days For Constipation 30 ml 202300 /0000 Active 2023 94351 55712 2 By Mouth False Ondansetron 4 mg disintegrat ing tablet [generic] 11/12 Inactiv e 2023 02608 93576 4 Ondansetron 4 mg disintegrat ing tablet [generic] 4 mg By Mouth Every 6 hours as needed For Nausea 4 mg 11/14 Inactiv e 2023 49158 65487 4 Every 6 hours as needed By Mouth False Potassium chloride ER 10 mEq capsule,ext ended release [generic] 40 mEq By Mouth Once daily For hypokalemia 40 mEq 11/17 Inactiv e 2023 34694 48418 1 Once daily By Mouth False Potassium chloride ER 10 mEq capsule,ext ended release [generic] 4 capsules By Mouth At bedtime For hypokalemia 4 capsule s 11/16 Inactiv e 2023 85514 60044 1 At bedtime By Mouth False Flomax 0.4 mg capsule 0.4 mg By Mouth At bedtime For Urinary retention 0.4 mg 2023 Active 2023 25998 07379 1 At bedtime By Mouth False STOOL CULTURE Once daily Obtain stool culture, add C. Diff to routine stool culture For Rule out C. Diff 1x 2023 Active 2023 Once daily Other False Butrans 5 mcg/hour transdermal patch 1 patch Transdermal Every 7 Days For Pain 1 patch 2023 Active 2023 08994 16456 4 Every week Transd ermal False Pantoprazol e 40 mg tablet,nu yed release [generic] 40 mg By Mouth Twice daily For gerd 40 mg 2023 Active 2023 44144 75629 0 Twice daily By Mouth False Scopolamine 1 mg over 3 days transdermal patch [generic] 1 Transdermal Every 72 hours For nausea 1 11/21 Active 2023 60723 81463 4 Every 72 hours Transd ermal False Ondansetron 4 mg disintegrat ing tablet [generic] 11/14 Inactiv e 2023 90103 87258 4 Ondansetron 4 mg disintegrat ing tablet [generic] 4 mg By Mouth Every 8 hours For Nausea 4 mg 2023 Active 2023 85685 25868 4 Every 8 hours By Mouth False Miralax 17 gram oral powder packet 8.5 g (1/2 capful) By Mouth Once daily For constipation 8.5 g 2023 Active 2023 56007 01494 6 Once daily By Mouth False Pioglitazon e 15 mg tablet [generic] 11/14 Inactiv e 2023 47222 30396 1 E11.9 Pioglitazon e 15 mg tablet [generic] 7.5mg ( half a tab) By Mouth Once daily For TYPE 2 DIABETES MELLITUS WITHOUT COMPLICATIONS 7.5mg 2023 Active 2023 50546 01018 1 Once daily By Mouth E11.9 False Mylanta Coat-Cool 1,200 mg-270 mg-80 mg/10 mL oral suspension 10 ml By Mouth Every 8 hours As Needed For heartburn, indigestion, gas 10 ml 2023 Active 2023 83809 1 Every 8 hours By Mouth False Prochlorper azine maleate 5 mg tablet [generic] 5 mg By Mouth Every 8 hours as needed For Nausea 5 mg 2023 Active 2023 30069 69488 1 Every 8 hours as needed By Mouth False Potassium chloride ER 10 mEq capsule,ext ended release [generic] 10 meq By Mouth 4 times a day For Hypokalemia 10 meq 2023 Active 2023 29032 55943 1 4 times a day By Mouth False Problems Code Description Start [...] Temperature SpO2 Blood Sugar Pulse Respirations 8 59221 5 75.00 mm[Hg] - Sitting 140.00 mm[Hg] - Sitting 65 NI 98.00 Tympanic 95.00 % 102.00 /min 18.00/min 8 54644 9 76074 918 72026 2 75.00 mm[Hg] - Sitting 140.00 mm[Hg] - Sitting 98.00 Tympanic 102.00 /min 18.00/min 918 92401 3 918 89301 1 72.00 mm[Hg] - Sitting 138.00 mm[Hg] - Sitting 98.40 Tympanic 918 27822 4 88.00/ min 18.00/min 919 81379 4 71.00 mm[Hg] - Sitting 115.00 mm[Hg] - Sitting 98.30 Tympanic 97.00 % 86.00/ min 16.00/min 48044 919 53324 0 71.00 mm[Hg] - Sitting 115.00 mm[Hg] - Sitting 98.30 Tympanic 86.00/ min 16.00/min 22855 919 62554 7 71.00 mm[Hg] - Sitting 115.00 mm[Hg] - Sitting 98.30 Tympanic 86.00/ min 16.00/min 50381 920 25662 6 72.00 mm[Hg] - Sitting 112.00 mm[Hg] - Sitting 98.10 Tympanic 82.00/ min 18.00/min 50560 920 61353 0 75.00 mm[Hg] - Sitting 130.00 mm[Hg] - Sitting 98.40 Forehead Scan 93.00 % 88.00/ min 18.00/min 46476 920 74089 2 75.00 mm[Hg] - Lying Down 130.00 mm[Hg] - Lying Down 98.40 Tympanic 88.00/ min 18.00/min 64383 920 88618 5 75.00 mm[Hg] - Lying Down 130.00 mm[Hg] - Lying Down 98.40 Tympanic 88.00/ min 18.00/min 92340 920 53649 6 199.00 NI 920 08779 3 75.00 mm[Hg] - Sitting 130.00 mm[Hg] - Sitting 98.40 Tympanic 88.00/ min 18.00/min 64980 921 28887 1 71.00 mm[Hg] - Lying Down 119.00 mm[Hg] - Lying Down 98.40 Forehead Scan 96.00 % 83.00/ min 16.00/min 33600 922 43967 6 71.00 mm[Hg] - Lying Down 128.00 mm[Hg] - Lying Down 98.30 Forehead Scan 94.00 % 84.00/ min 18.00/min 98359 923 47776 4 63.00 mm[Hg] - Sitting 105.00 mm[Hg] - Sitting 98.20 Tympanic 93.00 % 93.00/ min 18.00/min
--- OUTSIDE RECORDS SUMMARY | 2023-12-13 23:59 | External Medical Summary | Continuity Of Care Document ---
Author Name Unknown Address [address] [place] [address] Organization [facility] () Care Team Providers Care [employer] Name Role Phone DO Parson Amy Primary Care Provider [phone] Allergies Allergy Reaction Start Date End Date [...] 3 0.1 mL 11/13 Inactiv e 2023 69953 57056 0 1 time Intrad ermal False Tubersol 5 tub. unit/0.1 mL intradermal injection solution [Tuberculin PPD] 0.1mL Intradermal 1 time For PPD 2nd Step Give 2nd Step PPD Day 1 and Read results Day 3 (schedule 7 days after 1st READ) 0.1mL 11/13 Inactiv e 2023 70466 25122 0 1 time Intrad ermal False DISCONTINUE as of 11/14/2023: Tubersol 5 tub. unit/0.1 mL intradermal injection solution [Tuberculin PPD] 11/13 Inactiv e 2023 44499 43549 0 Tubersol 5 tub. unit/0.1 mL intradermal injection solution 0.1 mL Intradermal 1 time For PPD Step 1 GIVE on Day 1 and read results Day 3 0.1 mL 11/16 Inactiv e 2023 44405 00025 1 1 time Intrad ermal False DISCONTINUE as of 11/14/2023: Tubersol 5 tub. unit/0.1 mL intradermal injection solution [Tuberculin PPD] 11/13 Inactiv e 2023 61054 25168 0 Tubersol 5 tub. unit/0.1 mL intradermal injection solution 0.1mL Intradermal 1 time For PPD 2nd Step Give 2nd Step PPD Day 1 and Read results Day 3 (schedule 7 days after 1st READ) 0.1mL 11/25 Active 2023 43355 72928 1 1 time Intrad ermal False Tylenol 325 mg tablet 2 tabs By Mouth Every 4 hours as needed For Pain DO NOT EXCEED 3000 MG APAP/24 Hours 2 tabs 202300 /0000 Active 2023 96177 15395 0 Every 4 hours as needed By Mouth False Tylenol 325 mg tablet 2 tabs By Mouth Every 4 hours as needed For Fever >100 DO NOT EXCEED 3000 MG APAP/24 Hours 2 tabs 202300 /0000 Active 2023 46428 42888 0 Every 4 hours as needed By Mouth False Dulcolax (bisacodyl) 10 mg rectal suppository One Suppository per rectum PRN if Milk of Magnisia ineffective. Give on day 5 of no BM 1 sup 2023 Active 2023 35509 81854 1 Daily as needed Rectal False Fleet Enema 19 gram-7 gram/118 mL Administer per rectum PRN one time if dulcolax suppository not effective. Give on day 6 of no BM 1 202300 0000 Active 2023 01746 68006 6 Daily as needed Rectal False Dextrose 50 % in water (D50W) intravenous solution [generic] Dextrose 50% reyes 20-50 ml (slow push) Intravenous if Glucagon not effective after 15 minutes. CALL 911 for ED Evaluation. 50% reyes 202300 /0000 Active 2023 09634 75237 9 Intrav enous False Glucagon (HCl) Emergency Kit 1 mg solution for injection Administer Glucagon 1 mg Intramuscular if 15 minutes after GLucose Gel is administered Glucose remains less than 70 1 mg 2023 Active 2023 28077 62867 2 Intram uscula r False Glucose Gel 40 % oral gel [Dextrose] PRN If resident is unable to swallow (with or without symptoms) and Glucose results less than 70 give GLucose 40% Gel 1 tube orally - Recheck Glucose 15 minutes after administratio n. 1 tube 2023 Active 2023 40034 77943 8 By Mouth False Lorazepam 0.5 mg tablet [generic] 0.5 mg By Mouth Every 8 hours as needed For Anxiety 0.5 mg 11/18 Inactiv e 2023 72755 43810 0 Every 8 hours as needed By Mouth False Potassium chloride ER 20 mEq tablet,exte nded release [generic] 40 meq By Mouth Once daily For Hypokalemia 40 meq 11/13 Inactiv e 2023 54220 66860 1 Once daily By Mouth False Colesevelam 625 mg tablet [generic] 1250 mg By Mouth Twice daily For TYPE 2 DIABETES MELLITUS WITHOUT COMPLICATIONS 1250 mg 2023 Active 2023 99642 33318 1 Twice daily By Mouth E11.9 False Pioglitazon e 15 mg tablet [generic] 15 mg By Mouth Once daily For TYPE 2 DIABETES MELLITUS WITHOUT COMPLICATIONS 15 mg 11/14 Inactiv e 2023 99291 97325 1 Once daily By Mouth E11.9 False Cholecalcif hardeep (vitamin D3) 50 mcg (2,000 unit) tablet [generic] 50 mcg By Mouth Once daily For Supplement 50 mcg 2023 Active 2023 07973 45627 1 Once daily By Mouth False Colchicine 0.6 mg tablet [generic] 0.6 mg By Mouth Twice daily As Needed For Gout 0.6 mg 2023 Active 2023 38565 45885 4 Twice daily By Mouth False Levothyroxi ne 200 mcg tablet [generic] 200 mcg By Mouth Once daily For Hypothyroidis m 200 mcg 2023 0000 0000 Active 2023 86025 29869 0 Once daily By Mouth False Ondansetron 4 mg disintegrat ing tablet [generic] 4 mg By Mouth Every 6 hours as needed For Nausea 4 mg 11/12 Inactiv e 2023 84742 95203 4 Every 6 hours as needed By Mouth False Docusate sodium 100 mg capsule [generic] 100 mg By Mouth Twice daily For Constipation 100 mg 202300 Active 2023 73781 02849 1 Twice daily By Mouth False Oxycodone 5 mg tablet [generic] 5 mg By Mouth Every 6 hours as needed For Pain 5 mg 11/12 Inactiv e 2023 51925 28018 1 Every 6 hours as needed By Mouth False Oxycodone 5 mg tablet [generic] 5 mg By Mouth Every 6 hours as needed For Pain 5 mg 11/18 Inactiv e 2023 57381 77122 1 Every 6 hours as needed By Mouth False Milk of Magnesia 400 mg/5 mL oral suspension 30 ml By Mouth one time per day as needed if no BM x 3 days For Constipation 30 ml 202300 Active 2023 40765 79006 2 By Mouth False Ondansetron 4 mg disintegrat ing tablet [generic] 11/12 Inactiv e 2023 74888 36103 4 Ondansetron 4 mg disintegrat ing tablet [generic] 4 mg By Mouth Every 6 hours as needed For Nausea 4 mg 11/14 Inactiv e 2023 18791 62868 4 Every 6 hours as needed By Mouth False Potassium chloride ER 10 mEq capsule,ext ended release [generic] 40 mEq By Mouth Once daily For hypokalemia 40 mEq 11/17 Inactiv e 2023 08610 77327 1 Once daily By Mouth False Potassium chloride ER 10 mEq capsule,ext ended release [generic] 4 capsules By Mouth At bedtime For hypokalemia 4 capsule s 11/16 Inactiv e 2023 76642 24167 1 At bedtime By Mouth False Flomax 0.4 mg capsule 0.4 mg By Mouth At bedtime For Urinary retention 0.4 mg 11/18 Inactiv e 2023 78255 03567 1 At bedtime By Mouth False STOOL CULTURE Once daily Obtain stool culture, add C. Diff to routine stool culture For Rule out C. Diff 1x 2023 Active 2023 Once daily Other False Butrans 5 mcg/hour transdermal patch 1 patch Transdermal Every 7 Days For Pain 1 patch 2023 Active 2023 06737 68300 4 Every week Transd ermal False Pantoprazol e 40 mg tablet,nu yed release [generic] 40 mg By Mouth Twice daily For gerd 40 mg 2023 Active 2023 05573 34107 0 Twice daily By Mouth False Scopolamine 1 mg over 3 days transdermal patch [generic] 1 Transdermal Every 72 hours For nausea 1 11/21 Active 2023 12088 16280 4 Every 72 hours Transd ermal False Ondansetron 4 mg disintegrat ing tablet [generic] 11/14 Inactiv e 2023 67656 61492 4 Ondansetron 4 mg disintegrat ing tablet [generic] 4 mg By Mouth Every 8 hours For Nausea 4 mg 2023 Active 2023 31517 32271 4 Every 8 hours By Mouth False Miralax 17 gram oral powder packet 8.5 g (1/2 capful) By Mouth Once daily For constipation 8.5 g 2023 Active 2023 97302 75129 6 Once daily By Mouth False Pioglitazon e 15 mg tablet [generic] 11/14 Inactiv e 2023 60895 84540 1 E11.9 Pioglitazon e 15 mg tablet [generic] 7.5mg ( half a tab) By Mouth Once daily For TYPE 2 DIABETES MELLITUS WITHOUT COMPLICATIONS 7.5mg 2023 Active 2023 92145 58497 1 Once daily By Mouth E11.9 False Mylanta Coat-Cool 1,200 mg-270 mg-80 mg/10 mL oral suspension 10 ml By Mouth Every 8 hours As Needed For heartburn, indigestion, gas 10 ml 2023 Active 2023 21645 1 Every 8 hours By Mouth False Prochlorper azine maleate 5 mg tablet [generic] 5 mg By Mouth Every 8 hours as needed For Nausea 5 mg 2023 Active 2023 84038 78544 1 Every 8 hours as needed By Mouth False Potassium chloride ER 10 mEq capsule,ext ended release [generic] 10 meq By Mouth 4 times a day For Hypokalemia 10 meq 2023 Active 2023 13818 24030 1 4 times a day By Mouth False Lorazepam 0.5 mg tablet [generic] 11/18 Inactiv e 2023 45131 29112 0 Lorazepam 0.5 mg tablet [generic] 0.5 mg By Mouth Every 8 hours as needed For Anxiety 0.5 mg 12/18 Active 2023 93267 59249 0 Every 8 hours as needed By [...] weight Temperature SpO2 Blood Sugar Pulse Respirations 56511 5 75.00 mm[Hg] - Sitting 140.00 mm[Hg] - Sitting 65 NI 98.00 Tympanic 95.00 % 102.00 /min 18.00/min 69233 918 76628 9 59307 8 83573 2 75.00 mm[Hg] - Sitting 140.00 mm[Hg] - Sitting 98.00 Tympanic 102.00 /min 18.00/min 32633 918 37681 3 03041 918 87127 1 72.00 mm[Hg] - Sitting 138.00 mm[Hg] - Sitting 98.40 Tympanic 04382 918 29045 4 88.00/ min 18.00/min 82298 919 69901 4 71.00 mm[Hg] - Sitting 115.00 mm[Hg] - Sitting 98.30 Tympanic 97.00 % 86.00/ min 16.00/min 46854 919 48776 0 71.00 mm[Hg] - Sitting 115.00 mm[Hg] - Sitting 98.30 Tympanic 86.00/ min 16.00/min 35872 919 03106 7 71.00 mm[Hg] - Sitting 115.00 mm[Hg] - Sitting 98.30 Tympanic 86.00/ min 16.00/min 23587 920 15164 6 72.00 mm[Hg] - Sitting 112.00 mm[Hg] - Sitting 98.10 Tympanic 82.00/ min 18.00/min 34438 920 90036 0 75.00 mm[Hg] - Sitting 130.00 mm[Hg] - Sitting 98.40 Forehead Scan 93.00 % 88.00/ min 18.00/min 63609 920 65231 2 75.00 mm[Hg] - Lying Down 130.00 mm[Hg] - Lying Down 98.40 Tympanic 88.00/ min 18.00/min 95925 920 32298 5 75.00 mm[Hg] - Lying Down 130.00 mm[Hg] - Lying Down 98.40 Tympanic 88.00/ min 18.00/min 73422 920 62045 6 199.00 NI 920 92517 3 75.00 mm[Hg] - Sitting 130.00 mm[Hg] - Sitting 98.40 Tympanic 88.00/ min 18.00/min 41255 921 67788 1 71.00 mm[Hg] - Lying Down 119.00 mm[Hg] - Lying Down 98.40 Forehead Scan 96.00 % 83.00/ min 16.00/min 93557 922 45126 6 71.00 mm[Hg] - Lying Down 128.00 mm[Hg] - Lying Down 98.30 Forehead Scan 94.00 % 84.00/ min 18.00/min 45215 923 52190 4 63.00 mm[Hg] - Sitting 105.00 mm[Hg] - Sitting 98.20 Tympanic 93.00 % 93.00/ min 18.00/min
--- OUTSIDE RECORDS SUMMARY | 2023-12-13 23:59 | External Medical Summary | Continuity Of Care Document ---
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 unit/0.1 mL intradermal injection solution [Tuberculin PPD] 0.1mL Intradermal 1 time For PPD 2nd Step Give 2nd Step PPD Day 1 and Read results Day 3 (schedule 7 days after 1st READ) 0.1mL 11/13 Inactiv e 2023 49341 16276 0 1 time Intrad ermal False DISCONTINUE as of 11/14/2023: Tubersol 5 tub. unit/0.1 mL intradermal injection solution [Tuberculin PPD] 11/13 Inactiv e 2023 98180 73915 0 Tubersol 5 tub. unit/0.1 mL intradermal injection solution 0.1 mL Intradermal 1 time For PPD Step 1 GIVE on Day 1 and read results Day 3 0.1 mL 11/16 Inactiv e 2023 42373 86436 1 1 time Intrad ermal False DISCONTINUE as of 11/14/2023: Tubersol 5 tub. unit/0.1 mL intradermal injection solution [Tuberculin PPD] 11/13 Inactiv e 2023 41644 11209 0 Tubersol 5 tub. unit/0.1 mL intradermal injection solution 0.1mL Intradermal 1 time For PPD 2nd Step Give 2nd Step PPD Day 1 and Read results Day 3 (schedule 7 days after 1st READ) 0.1mL 11/25 Active 2023 90753 93993 1 1 time Intrad ermal False Tylenol 325 mg tablet 2 tabs By Mouth Every 4 hours as needed For Pain DO NOT EXCEED 3000 MG APAP/24 Hours 2 tabs 202300 /0000 Active 2023 16475 74616 0 Every 4 hours as needed By Mouth False Tylenol 325 mg tablet 2 tabs By Mouth Every 4 hours as needed For Fever >100 DO NOT EXCEED 3000 MG APAP/24 Hours 2 tabs 202300 /0000 Active 2023 78380 74062 0 Every 4 hours as needed By Mouth False Dulcolax (bisacodyl) 10 mg rectal suppository One Suppository per rectum PRN if Milk of Magnisia ineffective. Give on day 5 of no BM 1 sup 2023 Active 2023 83092 92596 1 Daily as needed Rectal False Fleet Enema 19 gram-7 gram/118 mL Administer per rectum PRN one time if dulcolax suppository not effective. Give on day 6 of no BM 1 202300 0000 Active 2023 49084 28233 6 Daily as needed Rectal False Dextrose 50 % in water (D50W) intravenous solution [generic] Dextrose 50% reyes 20-50 ml (slow push) Intravenous if Glucagon not effective after 15 minutes. CALL 911 for ED Evaluation. 50% reyes 202300 /0000 Active 2023 23023 01573 9 Intrav enous False Glucagon (HCl) Emergency Kit 1 mg solution for injection Administer Glucagon 1 mg Intramuscular if 15 minutes after GLucose Gel is administered Glucose remains less than 70 1 mg 2023 Active 2023 46623 53314 2 Intram uscula r False Glucose Gel 40 % oral gel [Dextrose] PRN If resident is unable to swallow (with or without symptoms) and Glucose results less than 70 give GLucose 40% Gel 1 tube orally - Recheck Glucose 15 minutes after administratio n. 1 tube 2023 Active 2023 53661 19649 8 By Mouth False Lorazepam 0.5 mg tablet [generic] 0.5 mg By Mouth Every 8 hours as needed For Anxiety 0.5 mg 2023 Active 2023 30902 65599 0 Every 8 hours as needed By Mouth False Potassium chloride ER 20 mEq tablet,exte nded release [generic] 40 meq By Mouth Once daily For Hypokalemia 40 meq 11/13 Inactiv e 2023 32614 50827 1 Once daily By Mouth False Colesevelam 625 mg tablet [generic] 1250 mg By Mouth Twice daily For TYPE 2 DIABETES MELLITUS WITHOUT COMPLICATIONS 1250 mg 2023 Active 2023 83543 63080 1 Twice daily By Mouth E11.9 False Pioglitazon e 15 mg tablet [generic] 15 mg By Mouth Once daily For TYPE 2 DIABETES MELLITUS WITHOUT COMPLICATIONS 15 mg 11/14 Inactiv e 2023 34270 76502 1 Once daily By Mouth E11.9 False Cholecalcif hardeep (vitamin D3) 50 mcg (2,000 unit) tablet [generic] 50 mcg By Mouth Once daily For Supplement 50 mcg 2023 Active 2023 86728 20625 1 Once daily By Mouth False Colchicine 0.6 mg tablet [generic] 0.6 mg By Mouth Twice daily As Needed For Gout 0.6 mg 2023 Active 2023 79196 50456 4 Twice daily By Mouth False Levothyroxi ne 200 mcg tablet [generic] 200 mcg By Mouth Once daily For Hypothyroidis m 200 mcg 202300 Active 2023 05858 86734 0 Once daily By Mouth False Ondansetron 4 mg disintegrat ing tablet [generic] 4 mg By Mouth Every 6 hours as needed For Nausea 4 mg 11/12 Inactiv e 2023 11230 47259 4 Every 6 hours as needed By Mouth False Docusate sodium 100 mg capsule [generic] 100 mg By Mouth Twice daily For Constipation 100 mg 202300 Active 2023 40762 13319 1 Twice daily By Mouth False Oxycodone 5 mg tablet [generic] 5 mg By Mouth Every 6 hours as needed For Pain 5 mg 11/12 Inactiv e 2023 26968 56909 1 Every 6 hours as needed By Mouth False Oxycodone 5 mg tablet [generic] 5 mg By Mouth Every 6 hours as needed For Pain 5 mg 202300 Active 2023 66081 74287 1 Every 6 hours as needed By Mouth False Milk of Magnesia 400 mg/5 mL oral suspension 30 ml By Mouth one time per day as needed if no BM x 3 days For Constipation 30 ml 202300 /0000 Active 2023 05962 76979 2 By Mouth False Ondansetron 4 mg disintegrat ing tablet [generic] 11/12 Inactiv e 2023 92427 11266 4 Ondansetron 4 mg disintegrat ing tablet [generic] 4 mg By Mouth Every 6 hours as needed For Nausea 4 mg 11/14 Inactiv e 2023 12589 38485 4 Every 6 hours as needed By Mouth False Potassium chloride ER 10 mEq capsule,ext ended release [generic] 40 mEq By Mouth Once daily For hypokalemia 40 mEq 11/17 Inactiv e 2023 32340 91948 1 Once daily By Mouth False Potassium chloride ER 10 mEq capsule,ext ended release [generic] 4 capsules By Mouth At bedtime For hypokalemia 4 capsule s 11/16 Inactiv e 2023 76693 00241 1 At bedtime By Mouth False Flomax 0.4 mg capsule 0.4 mg By Mouth At bedtime For Urinary retention 0.4 mg 2023 Active 2023 79106 47846 1 At bedtime By Mouth False STOOL CULTURE Once daily Obtain stool culture, add C. Diff to routine stool culture For Rule out C. Diff 1x 2023 Active 2023 Once daily Other False Butrans 5 mcg/hour transdermal patch 1 patch Transdermal Every 7 Days For Pain 1 patch 2023 Active 2023 59200 75653 4 Every week Transd ermal False Pantoprazol e 40 mg tablet,nu yed release [generic] 40 mg By Mouth Twice daily For gerd 40 mg 2023 Active 2023 24544 35391 0 Twice daily By Mouth False Scopolamine 1 mg over 3 days transdermal patch [generic] 1 Transdermal Every 72 hours For nausea 1 11/21 Active 2023 10109 18392 4 Every 72 hours Transd ermal False Ondansetron 4 mg disintegrat ing tablet [generic] 11/14 Inactiv e 2023 95460 85426 4 Ondansetron 4 mg disintegrat ing tablet [generic] 4 mg By Mouth Every 8 hours For Nausea 4 mg 2023 Active 2023 79036 70961 4 Every 8 hours By Mouth False Miralax 17 gram oral powder packet 8.5 g (1/2 capful) By Mouth Once daily For constipation 8.5 g 2023 Active 2023 75336 28210 6 Once daily By Mouth False Pioglitazon e 15 mg tablet [generic] 11/14 Inactiv e 2023 04021 77926 1 E11.9 Pioglitazon e 15 mg tablet [generic] 7.5mg ( half a tab) By Mouth Once daily For TYPE 2 DIABETES MELLITUS WITHOUT COMPLICATIONS 7.5mg 2023 Active 2023 41991 44117 1 Once daily By Mouth E11.9 False Mylanta Coat-Cool 1,200 mg-270 mg-80 mg/10 mL oral suspension 10 ml By Mouth Every 8 hours As Needed For heartburn, indigestion, gas 10 ml 2023 Active 2023 78074 1 Every 8 hours By Mouth False Prochlorper azine maleate 5 mg tablet [generic] 5 mg By Mouth Every 8 hours as needed For Nausea 5 mg 2023 Active 2023 03354 19199 1 Every 8 hours as needed By Mouth False Potassium chloride ER 10 mEq capsule,ext ended release [generic] 10 meq By Mouth 4 times a day For Hypokalemia 10 meq 2023 Active 2023 92105 66482 1 4 times a day By Mouth [...] Temperature SpO2 Blood Sugar Pulse Respirations 8 72393 5 75.00 mm[Hg] - Sitting 140.00 mm[Hg] - Sitting 65 NI 98.00 Tympanic 95.00 % 102.00 /min 18.00/min 8 06140 9 87932 918 63115 2 75.00 mm[Hg] - Sitting 140.00 mm[Hg] - Sitting 98.00 Tympanic 102.00 /min 18.00/min 918 15235 3 918 67594 1 72.00 mm[Hg] - Sitting 138.00 mm[Hg] - Sitting 98.40 Tympanic 918 31819 4 88.00/ min 18.00/min 919 34428 4 71.00 mm[Hg] - Sitting 115.00 mm[Hg] - Sitting 98.30 Tympanic 97.00 % 86.00/ min 16.00/min 51760 919 59299 0 71.00 mm[Hg] - Sitting 115.00 mm[Hg] - Sitting 98.30 Tympanic 86.00/ min 16.00/min 81286 919 26922 7 71.00 mm[Hg] - Sitting 115.00 mm[Hg] - Sitting 98.30 Tympanic 86.00/ min 16.00/min 32092 920 60081 6 72.00 mm[Hg] - Sitting 112.00 mm[Hg] - Sitting 98.10 Tympanic 82.00/ min 18.00/min 86246 920 38307 0 75.00 mm[Hg] - Sitting 130.00 mm[Hg] - Sitting 98.40 Forehead Scan 93.00 % 88.00/ min 18.00/min 10163 920 10022 2 75.00 mm[Hg] - Lying Down 130.00 mm[Hg] - Lying Down 98.40 Tympanic 88.00/ min 18.00/min 08338 920 55353 5 75.00 mm[Hg] - Lying Down 130.00 mm[Hg] - Lying Down 98.40 Tympanic 88.00/ min 18.00/min 03978 920 98443 6 199.00 NI 920 61514 3 75.00 mm[Hg] - Sitting 130.00 mm[Hg] - Sitting 98.40 Tympanic 88.00/ min 18.00/min 13560 921 25524 1 71.00 mm[Hg] - Lying Down 119.00 mm[Hg] - Lying Down 98.40 Forehead Scan 96.00 % 83.00/ min 16.00/min 30650 922 85207 6 71.00 mm[Hg] - Lying Down 128.00 mm[Hg] - Lying Down 98.30 Forehead Scan 94.00 % 84.00/ min 18.00/min 22535 923 36757 4 63.00 mm[Hg] - Sitting 105.00 mm[Hg] - Sitting 98.20 Tympanic 93.00 % 93.00/ min 18.00/min
--- OUTSIDE RECORDS SUMMARY | 2023-12-13 23:59 | External Medical Summary | Continuity Of Care Document ---
Author Name Unknown Address [address] [place] [address] Organization [facility] () Care Team Providers Care Encephalographer Name Role Phone DO Parson Amy Primary Care Provider [phone] Allergies Allergy Reaction Start Date End Date [...] 3 0.1 mL 11/13 Inactiv e 2023 89129 27890 0 1 time Intrad ermal False Tubersol 5 tub. unit/0.1 mL intradermal injection solution [Tuberculin PPD] 0.1mL Intradermal 1 time For PPD 2nd Step Give 2nd Step PPD Day 1 and Read results Day 3 (schedule 7 days after 1st READ) 0.1mL 11/13 Inactiv e 2023 56412 31219 0 1 time Intrad ermal False DISCONTINUE as of 11/14/2023: Tubersol 5 tub. unit/0.1 mL intradermal injection solution [Tuberculin PPD] 11/13 Inactiv e 2023 56154 24413 0 Tubersol 5 tub. unit/0.1 mL intradermal injection solution 0.1 mL Intradermal 1 time For PPD Step 1 GIVE on Day 1 and read results Day 3 0.1 mL 11/16 Inactiv e 2023 78278 65186 1 1 time Intrad ermal False DISCONTINUE as of 11/14/2023: Tubersol 5 tub. unit/0.1 mL intradermal injection solution [Tuberculin PPD] 11/13 Inactiv e 2023 19682 02512 0 Tubersol 5 tub. unit/0.1 mL intradermal injection solution 0.1mL Intradermal 1 time For PPD 2nd Step Give 2nd Step PPD Day 1 and Read results Day 3 (schedule 7 days after 1st READ) 0.1mL 11/25 Active 2023 74631 57270 1 1 time Intrad ermal False Tylenol 325 mg tablet 2 tabs By Mouth Every 4 hours as needed For Pain DO NOT EXCEED 3000 MG APAP/24 Hours 2 tabs 202300 /0000 Active 2023 18695 11261 0 Every 4 hours as needed By Mouth False Tylenol 325 mg tablet 2 tabs By Mouth Every 4 hours as needed For Fever >100 DO NOT EXCEED 3000 MG APAP/24 Hours 2 tabs 202300 /0000 Active 2023 46504 31186 0 Every 4 hours as needed By Mouth False Dulcolax (bisacodyl) 10 mg rectal suppository One Suppository per rectum PRN if Milk of Magnisia ineffective. Give on day 5 of no BM 1 sup 2023 Active 2023 80032 85184 1 Daily as needed Rectal False Fleet Enema 19 gram-7 gram/118 mL Administer per rectum PRN one time if dulcolax suppository not effective. Give on day 6 of no BM 1 202300 0000 Active 2023 11314 41353 6 Daily as needed Rectal False Dextrose 50 % in water (D50W) intravenous solution [generic] Dextrose 50% reyes 20-50 ml (slow push) Intravenous if Glucagon not effective after 15 minutes. CALL 911 for ED Evaluation. 50% reyes 202300 /0000 Active 2023 49857 06516 9 Intrav enous False Glucagon (HCl) Emergency Kit 1 mg solution for injection Administer Glucagon 1 mg Intramuscular if 15 minutes after GLucose Gel is administered Glucose remains less than 70 1 mg 2023 Active 2023 71759 55412 2 Intram uscula r False Glucose Gel 40 % oral gel [Dextrose] PRN If resident is unable to swallow (with or without symptoms) and Glucose results less than 70 give GLucose 40% Gel 1 tube orally - Recheck Glucose 15 minutes after administratio n. 1 tube 2023 Active 2023 89767 97681 8 By Mouth False Lorazepam 0.5 mg tablet [generic] 0.5 mg By Mouth Every 8 hours as needed For Anxiety 0.5 mg 2023 Active 2023 25895 13568 0 Every 8 hours as needed By Mouth False Potassium chloride ER 20 mEq tablet,exte nded release [generic] 40 meq By Mouth Once daily For Hypokalemia 40 meq 11/13 Inactiv e 2023 61806 34902 1 Once daily By Mouth False Colesevelam 625 mg tablet [generic] 1250 mg By Mouth Twice daily For TYPE 2 DIABETES MELLITUS WITHOUT COMPLICATIONS 1250 mg 2023 Active 2023 61645 63212 1 Twice daily By Mouth E11.9 False Pioglitazon e 15 mg tablet [generic] 15 mg By Mouth Once daily For TYPE 2 DIABETES MELLITUS WITHOUT COMPLICATIONS 15 mg 11/14 Inactiv e 2023 41933 75418 1 Once daily By Mouth E11.9 False Cholecalcif hardeep (vitamin D3) 50 mcg (2,000 unit) tablet [generic] 50 mcg By Mouth Once daily For Supplement 50 mcg 2023 Active 2023 18127 32398 1 Once daily By Mouth False Colchicine 0.6 mg tablet [generic] 0.6 mg By Mouth Twice daily As Needed For Gout 0.6 mg 2023 Active 2023 38834 68986 4 Twice daily By Mouth False Levothyroxi ne 200 mcg tablet [generic] 200 mcg By Mouth Once daily For Hypothyroidis m 200 mcg 2023 Active 2023 94220 84273 0 Once daily By Mouth False Ondansetron 4 mg disintegrat ing tablet [generic] 4 mg By Mouth Every 6 hours as needed For Nausea 4 mg 11/12 Inactiv e 2023 24039 88279 4 Every 6 hours as needed By Mouth False Docusate sodium 100 mg capsule [generic] 100 mg By Mouth Twice daily For Constipation 100 mg 2023 Active 2023 34773 07948 1 Twice daily By Mouth False Oxycodone 5 mg tablet [generic] 5 mg By Mouth Every 6 hours as needed For Pain 5 mg 11/12 Inactiv e 2023 37986 79037 1 Every 6 hours as needed By Mouth False Oxycodone 5 mg tablet [generic] 5 mg By Mouth Every 6 hours as needed For Pain 5 mg 2023 Active 2023 16194 89120 1 Every 6 hours as needed By Mouth False Milk of Magnesia 400 mg/5 mL oral suspension 30 ml By Mouth one time per day as needed if no BM x 3 days For Constipation 30 ml 2023 Active 2023 29366 81419 2 By Mouth False Ondansetron 4 mg disintegrat ing tablet [generic] 11/12 Inactiv e 2023 99177 32986 4 Ondansetron 4 mg disintegrat ing tablet [generic] 4 mg By Mouth Every 6 hours as needed For Nausea 4 mg 11/14 Inactiv e 2023 42778 89678 4 Every 6 hours as needed By Mouth False Potassium chloride ER 10 mEq capsule,ext ended release [generic] 40 mEq By Mouth Once daily For hypokalemia 40 mEq 202300 Active 2023 08021 65993 1 Once daily By Mouth False Potassium chloride ER 10 mEq capsule,ext ended release [generic] 4 capsules By Mouth At bedtime For hypokalemia 4 capsule s 11/16 Inactiv e 2023 62419 78042 1 At bedtime By Mouth False Flomax 0.4 mg capsule 0.4 mg By Mouth At bedtime For Urinary retention 0.4 mg 2023 Active 2023 01806 02659 1 At bedtime By Mouth False STOOL CULTURE Once daily Obtain stool culture, add C. Diff to routine stool culture For Rule out C. Diff 1x 2023 Active 2023 Once daily Other False Butrans 5 mcg/hour transdermal patch 1 patch Transdermal Every 7 Days For Pain 1 patch 2023 Active 2023 09567 68421 4 Every week Transd ermal False Pantoprazol e 40 mg tablet,nu yed release [generic] 40 mg By Mouth Twice daily For gerd 40 mg 2023 Active 2023 91710 32251 0 Twice daily By Mouth False Scopolamine 1 mg over 3 days transdermal patch [generic] 1 Transdermal Every 72 hours For nausea 1 11/21 Active 2023 47356 40912 4 Every 72 hours Transd ermal False Ondansetron 4 mg disintegrat ing tablet [generic] 11/14 Inactiv e 2023 35835 11005 4 Ondansetron 4 mg disintegrat ing tablet [generic] 4 mg By Mouth Every 8 hours For Nausea 4 mg 2023 Active 2023 61156 83352 4 Every 8 hours By Mouth False Miralax 17 gram oral powder packet 8.5 g (1/2 capful) By Mouth Once daily For constipation 8.5 g 2023 Active 2023 22232 71365 6 Once daily By Mouth False Pioglitazon e 15 mg tablet [generic] 11/14 Inactiv e 2023 83744 40473 1 E11.9 Pioglitazon e 15 mg tablet [generic] 7.5mg ( half a tab) By Mouth Once daily For TYPE 2 DIABETES MELLITUS WITHOUT COMPLICATIONS 7.5mg 2023 Active 2023 84543 60544 1 Once daily By Mouth E11.9 False Mylanta Coat-Cool 1,200 mg-270 mg-80 mg/10 mL oral suspension 10 ml By Mouth Every 8 hours As Needed For heartburn, indigestion, gas 10 ml 2023 Active 2023 81275 1 Every 8 hours By Mouth False Prochlorper azine maleate 5 mg tablet [generic] 5 mg By Mouth Every 8 hours as needed For Nausea 5 mg 2023 Active 2023 73649 03053 1 Every 8 hours as needed By [...] Temperature SpO2 Blood Sugar Pulse Respirations 918 58767 5 75.00 mm[Hg] - Sitting 140.00 mm[Hg] - Sitting 65 NI 98.00 Tympanic 95.00 % 102.00 /min 18.00/min 918 00398 9 02774 918 59400 2 75.00 mm[Hg] - Sitting 140.00 mm[Hg] - Sitting 98.00 Tympanic 102.00 /min 18.00/min 918 71381 3 02075 918 68057 1 72.00 mm[Hg] - Sitting 138.00 mm[Hg] - Sitting 98.40 Tympanic 918 41073 4 88.00/ min 18.00/min 919 52547 4 71.00 mm[Hg] - Sitting 115.00 mm[Hg] - Sitting 98.30 Tympanic 97.00 % 86.00/ min 16.00/min 919 62019 0 71.00 mm[Hg] - Sitting 115.00 mm[Hg] - Sitting 98.30 Tympanic 86.00/ min 16.00/min 919 17743 7 71.00 mm[Hg] - Sitting 115.00 mm[Hg] - Sitting 98.30 Tympanic 86.00/ min 16.00/min 920 24466 6 72.00 mm[Hg] - Sitting 112.00 mm[Hg] - Sitting 98.10 Tympanic 82.00/ min 18.00/min 920 46562 0 75.00 mm[Hg] - Sitting 130.00 mm[Hg] - Sitting 98.40 Forehead Scan 93.00 % 88.00/ min 18.00/min 920 71594 2 75.00 mm[Hg] - Lying Down 130.00 mm[Hg] - Lying Down 98.40 Tympanic 88.00/ min 18.00/min 49809 920 12232 5 75.00 mm[Hg] - Lying Down 130.00 mm[Hg] - Lying Down 98.40 Tympanic 88.00/ min 18.00/min 920 18801 6 199.00 NI 920 68398 3 75.00 mm[Hg] - Sitting 130.00 mm[Hg] - Sitting 98.40 Tympanic 88.00/ min 18.00/min 921 86492 1 71.00 mm[Hg] - Lying Down 119.00 mm[Hg] - Lying Down 98.40 Forehead Scan 96.00 % 83.00/ min 16.00/min 922 14497 6 71.00 mm[Hg] - Lying Down 128.00 mm[Hg] - Lying Down 98.30 Forehead Scan 94.00 % 84.00/ min 18.00/min 923 89218 4 63.00 mm[Hg] - Sitting 105.00 mm[Hg] - Sitting 98.20 Tympanic 93.00 % 93.00/ min 18.00/min
--- OUTSIDE RECORDS SUMMARY | 2023-12-13 23:59 | External Medical Summary | Continuity Of Care Document ---
Author Name Unknown Address [address] [place] [address] Organization [facility] () Care Team Providers Care Prior Authorization Technician Name Role Phone DO Parson Amy Primary Care Provider [phone] Allergies Allergy Reaction Start Date End Date [...] 3 0.1 mL 11/13 Inactiv e 2023 89868 28244 0 1 time Intrad ermal False Tubersol 5 tub. unit/0.1 mL intradermal injection solution [Tuberculin PPD] 0.1mL Intradermal 1 time For PPD 2nd Step Give 2nd Step PPD Day 1 and Read results Day 3 (schedule 7 days after 1st READ) 0.1mL 11/13 Inactiv e 2023 24824 76607 0 1 time Intrad ermal False DISCONTINUE as of 11/14/2023: Tubersol 5 tub. unit/0.1 mL intradermal injection solution [Tuberculin PPD] 11/13 Inactiv e 2023 73143 42821 0 Tubersol 5 tub. unit/0.1 mL intradermal injection solution 0.1 mL Intradermal 1 time For PPD Step 1 GIVE on Day 1 and read results Day 3 0.1 mL 11/16 Inactiv e 2023 12126 10956 1 1 time Intrad ermal False DISCONTINUE as of 11/14/2023: Tubersol 5 tub. unit/0.1 mL intradermal injection solution [Tuberculin PPD] 11/13 Inactiv e 2023 86321 75338 0 Tubersol 5 tub. unit/0.1 mL intradermal injection solution 0.1mL Intradermal 1 time For PPD 2nd Step Give 2nd Step PPD Day 1 and Read results Day 3 (schedule 7 days after 1st READ) 0.1mL 11/25 Active 2023 03062 20548 1 1 time Intrad ermal False Tylenol 325 mg tablet 2 tabs By Mouth Every 4 hours as needed For Pain DO NOT EXCEED 3000 MG APAP/24 Hours 2 tabs 202300 /0000 Active 2023 10074 81565 0 Every 4 hours as needed By Mouth False Tylenol 325 mg tablet 2 tabs By Mouth Every 4 hours as needed For Fever >100 DO NOT EXCEED 3000 MG APAP/24 Hours 2 tabs 202300 /0000 Active 2023 80039 16965 0 Every 4 hours as needed By Mouth False Dulcolax (bisacodyl) 10 mg rectal suppository One Suppository per rectum PRN if Milk of Magnisia ineffective. Give on day 5 of no BM 1 sup 2023 Active 2023 10928 98588 1 Daily as needed Rectal False Fleet Enema 19 gram-7 gram/118 mL Administer per rectum PRN one time if dulcolax suppository not effective. Give on day 6 of no BM 1 202300 0000 Active 2023 07312 80954 6 Daily as needed Rectal False Dextrose 50 % in water (D50W) intravenous solution [generic] Dextrose 50% reyes 20-50 ml (slow push) Intravenous if Glucagon not effective after 15 minutes. CALL 911 for ED Evaluation. 50% reyes 202300 /0000 Active 2023 45842 72729 9 Intrav enous False Glucagon (HCl) Emergency Kit 1 mg solution for injection Administer Glucagon 1 mg Intramuscular if 15 minutes after GLucose Gel is administered Glucose remains less than 70 1 mg 2023 Active 2023 71355 04794 2 Intram uscula r False Glucose Gel 40 % oral gel [Dextrose] PRN If resident is unable to swallow (with or without symptoms) and Glucose results less than 70 give GLucose 40% Gel 1 tube orally - Recheck Glucose 15 minutes after administratio n. 1 tube 2023 Active 2023 92319 60379 8 By Mouth False Lorazepam 0.5 mg tablet [generic] 0.5 mg By Mouth Every 8 hours as needed For Anxiety 0.5 mg 11/18 Inactiv e 2023 97534 35523 0 Every 8 hours as needed By Mouth False Potassium chloride ER 20 mEq tablet,exte nded release [generic] 40 meq By Mouth Once daily For Hypokalemia 40 meq 11/13 Inactiv e 2023 79013 24331 1 Once daily By Mouth False Colesevelam 625 mg tablet [generic] 1250 mg By Mouth Twice daily For TYPE 2 DIABETES MELLITUS WITHOUT COMPLICATIONS 1250 mg 2023 Active 2023 22232 69781 1 Twice daily By Mouth E11.9 False Pioglitazon e 15 mg tablet [generic] 15 mg By Mouth Once daily For TYPE 2 DIABETES MELLITUS WITHOUT COMPLICATIONS 15 mg 11/14 Inactiv e 2023 75443 30945 1 Once daily By Mouth E11.9 False Cholecalcif hardeep (vitamin D3) 50 mcg (2,000 unit) tablet [generic] 50 mcg By Mouth Once daily For Supplement 50 mcg 2023 Active 2023 23154 14171 1 Once daily By Mouth False Colchicine 0.6 mg tablet [generic] 0.6 mg By Mouth Twice daily As Needed For Gout 0.6 mg 2023 Active 2023 38956 68478 4 Twice daily By Mouth False Levothyroxi ne 200 mcg tablet [generic] 200 mcg By Mouth Once daily For Hypothyroidis m 200 mcg 2023 0000 0000 Active 2023 91006 97611 0 Once daily By Mouth False Ondansetron 4 mg disintegrat ing tablet [generic] 4 mg By Mouth Every 6 hours as needed For Nausea 4 mg 11/12 Inactiv e 2023 47416 49660 4 Every 6 hours as needed By Mouth False Docusate sodium 100 mg capsule [generic] 100 mg By Mouth Twice daily For Constipation 100 mg 202300 Active 2023 14116 52386 1 Twice daily By Mouth False Oxycodone 5 mg tablet [generic] 5 mg By Mouth Every 6 hours as needed For Pain 5 mg 11/12 Inactiv e 2023 18019 84113 1 Every 6 hours as needed By Mouth False Oxycodone 5 mg tablet [generic] 5 mg By Mouth Every 6 hours as needed For Pain 5 mg 11/18 Inactiv e 2023 15979 38910 1 Every 6 hours as needed By Mouth False Milk of Magnesia 400 mg/5 mL oral suspension 30 ml By Mouth one time per day as needed if no BM x 3 days For Constipation 30 ml 202300 Active 2023 57073 24659 2 By Mouth False Ondansetron 4 mg disintegrat ing tablet [generic] 11/12 Inactiv e 2023 09720 12976 4 Ondansetron 4 mg disintegrat ing tablet [generic] 4 mg By Mouth Every 6 hours as needed For Nausea 4 mg 11/14 Inactiv e 2023 71766 21616 4 Every 6 hours as needed By Mouth False Potassium chloride ER 10 mEq capsule,ext ended release [generic] 40 mEq By Mouth Once daily For hypokalemia 40 mEq 11/17 Inactiv e 2023 72037 96952 1 Once daily By Mouth False Potassium chloride ER 10 mEq capsule,ext ended release [generic] 4 capsules By Mouth At bedtime For hypokalemia 4 capsule s 11/16 Inactiv e 2023 69498 66916 1 At bedtime By Mouth False Flomax 0.4 mg capsule 0.4 mg By Mouth At bedtime For Urinary retention 0.4 mg 11/18 Inactiv e 2023 16165 94363 1 At bedtime By Mouth False STOOL CULTURE Once daily Obtain stool culture, add C. Diff to routine stool culture For Rule out C. Diff 1x 2023 Active 2023 Once daily Other False Butrans 5 mcg/hour transdermal patch 1 patch Transdermal Every 7 Days For Pain 1 patch 2023 Active 2023 45418 19174 4 Every week Transd ermal False Pantoprazol e 40 mg tablet,nu yed release [generic] 40 mg By Mouth Twice daily For gerd 40 mg 2023 Active 2023 60861 60603 0 Twice daily By Mouth False Scopolamine 1 mg over 3 days transdermal patch [generic] 1 Transdermal Every 72 hours For nausea 1 11/21 Active 2023 91815 71130 4 Every 72 hours Transd ermal False Ondansetron 4 mg disintegrat ing tablet [generic] 11/14 Inactiv e 2023 76894 55165 4 Ondansetron 4 mg disintegrat ing tablet [generic] 4 mg By Mouth Every 8 hours For Nausea 4 mg 2023 Active 2023 11322 77995 4 Every 8 hours By Mouth False Miralax 17 gram oral powder packet 8.5 g (1/2 capful) By Mouth Once daily For constipation 8.5 g 2023 Active 2023 50525 30443 6 Once daily By Mouth False Pioglitazon e 15 mg tablet [generic] 11/14 Inactiv e 2023 71568 55405 1 E11.9 Pioglitazon e 15 mg tablet [generic] 7.5mg ( half a tab) By Mouth Once daily For TYPE 2 DIABETES MELLITUS WITHOUT COMPLICATIONS 7.5mg 2023 Active 2023 00859 61282 1 Once daily By Mouth E11.9 False Mylanta Coat-Cool 1,200 mg-270 mg-80 mg/10 mL oral suspension 10 ml By Mouth Every 8 hours As Needed For heartburn, indigestion, gas 10 ml 2023 Active 2023 33632 14947 1 Every 8 hours By Mouth False Prochlorper azine maleate 5 mg tablet [generic] 5 mg By Mouth Every 8 hours as needed For Nausea 5 mg 2023 Active 2023 89064 76784 1 Every 8 hours as needed By Mouth False Potassium chloride ER 10 mEq capsule,ext ended release [generic] 10 meq By Mouth 4 times a day For Hypokalemia 10 meq 2023 Active 2023 27678 98754 1 4 times a day By Mouth False Lorazepam 0.5 mg tablet [generic] 11/18 Inactiv e 2023 80086 01598 0 Lorazepam 0.5 mg tablet [generic] 0.5 mg By Mouth Every 8 hours as needed For Anxiety 0.5 mg 12/18 Active 2023 08330 68988 0 Every 8 hours as needed By Mouth False Flomax 0.4 mg capsule 11/18 Inactiv e 2023 57007 10993 1 Flomax 0.4 mg capsule 0.4 mg By Mouth Once daily For Urinary retention 0.4 mg 2023 Active 2023 29901 91775 1 Once daily By Mouth False Oxycodone 5 mg tablet [generic] 11/18 Inactiv e 2023 71292 63043 1 Oxycodone 5 mg tablet [generic] 5 mg By Mouth Every 6 hours as needed For Back Pain 5 mg 2023 Active 2023 73272 17305 1 Every 6 hours as needed By [...] weight Temperature SpO2 Blood Sugar Pulse Respirations 23865 5 75.00 mm[Hg] - Sitting 140.00 mm[Hg] - Sitting 65 NI 98.00 Tympanic 95.00 % 102.00 /min 18.00/min 8 45733 9 29354 2 75.00 mm[Hg] - Sitting 140.00 mm[Hg] - Sitting 98.00 Tympanic 102.00 /min 18.00/min 918 59693 3 8 42891 1 72.00 mm[Hg] - Sitting 138.00 mm[Hg] - Sitting 98.40 Tympanic 65041 4 88.00/ min 18.00/min 12912 919 00627 4 71.00 mm[Hg] - Sitting 115.00 mm[Hg] - Sitting 98.30 Tympanic 97.00 % 86.00/ min 16.00/min 83389 919 20964 0 71.00 mm[Hg] - Sitting 115.00 mm[Hg] - Sitting 98.30 Tympanic 86.00/ min 16.00/min 88235 919 18334 7 71.00 mm[Hg] - Sitting 115.00 mm[Hg] - Sitting 98.30 Tympanic 86.00/ min 16.00/min 33101 920 75823 6 72.00 mm[Hg] - Sitting 112.00 mm[Hg] - Sitting 98.10 Tympanic 82.00/ min 18.00/min 40071 920 97675 0 75.00 mm[Hg] - Sitting 130.00 mm[Hg] - Sitting 98.40 Forehead Scan 93.00 % 88.00/ min 18.00/min 89637 920 05742 2 75.00 mm[Hg] - Lying Down 130.00 mm[Hg] - Lying Down 98.40 Tympanic 88.00/ min 18.00/min 71211 920 26848 5 75.00 mm[Hg] - Lying Down 130.00 mm[Hg] - Lying Down 98.40 Tympanic 88.00/ min 18.00/min 08718 920 88801 6 199.00 NI [address]448 920 78054 3 75.00 mm[Hg] - Sitting 130.00 mm[Hg] - Sitting 98.40 Tympanic 88.00/ min 18.00/min 41761 921 02704 1 71.00 mm[Hg] - Lying Down 119.00 mm[Hg] - Lying Down 98.40 Forehead Scan 96.00 % 83.00/ min 16.00/min 95738 922 90729 6 71.00 mm[Hg] - Lying Down 128.00 mm[Hg] - Lying Down 98.30 Forehead Scan 94.00 % 84.00/ min 18.00/min 32213 923 49253 4 63.00 mm[Hg] - Sitting 105.00 mm[Hg] - Sitting 98.20 Tympanic 93.00 % 93.00/ min 18.00/min
--- OUTSIDE RECORDS SUMMARY | 2023-12-13 23:59 | External Medical Summary | Continuity Of Care Document ---
Author Name Unknown Address [address] [place] [address] Organization [facility] () Care Team Providers Care Formulation Chemist Name Role Phone DO Parson Amy Primary Care Provider [phone] Allergies Allergy Reaction Start Date End Date [...] 3 0.1 mL 11/13 Inactiv e 2023 78885 46277 0 1 time Intrad ermal False Tubersol 5 tub. unit/0.1 mL intradermal injection solution [Tuberculin PPD] 0.1mL Intradermal 1 time For PPD 2nd Step Give 2nd Step PPD Day 1 and Read results Day 3 (schedule 7 days after 1st READ) 0.1mL 11/13 Inactiv e 2023 09506 05044 0 1 time Intrad ermal False DISCONTINUE as of 11/14/2023: Tubersol 5 tub. unit/0.1 mL intradermal injection solution [Tuberculin PPD] 11/13 Inactiv e 2023 84143 02308 0 Tubersol 5 tub. unit/0.1 mL intradermal injection solution 0.1 mL Intradermal 1 time For PPD Step 1 GIVE on Day 1 and read results Day 3 0.1 mL 11/16 Inactiv e 2023 00221 19135 1 1 time Intrad ermal False DISCONTINUE as of 11/14/2023: Tubersol 5 tub. unit/0.1 mL intradermal injection solution [Tuberculin PPD] 11/13 Inactiv e 2023 99473 63299 0 Tubersol 5 tub. unit/0.1 mL intradermal injection solution 0.1mL Intradermal 1 time For PPD 2nd Step Give 2nd Step PPD Day 1 and Read results Day 3 (schedule 7 days after 1st READ) 0.1mL 11/25 Active 2023 33775 27056 1 1 time Intrad ermal False Tylenol 325 mg tablet 2 tabs By Mouth Every 4 hours as needed For Pain DO NOT EXCEED 3000 MG APAP/24 Hours 2 tabs 202300 /0000 Active 2023 91716 33371 0 Every 4 hours as needed By Mouth False Tylenol 325 mg tablet 2 tabs By Mouth Every 4 hours as needed For Fever >100 DO NOT EXCEED 3000 MG APAP/24 Hours 2 tabs 202300 /0000 Active 2023 96828 92763 0 Every 4 hours as needed By Mouth False Dulcolax (bisacodyl) 10 mg rectal suppository One Suppository per rectum PRN if Milk of Magnisia ineffective. Give on day 5 of no BM 1 sup 2023 Active 2023 99172 44374 1 Daily as needed Rectal False Fleet Enema 19 gram-7 gram/118 mL Administer per rectum PRN one time if dulcolax suppository not effective. Give on day 6 of no BM 1 202300 0000 Active 2023 92927 37100 6 Daily as needed Rectal False Dextrose 50 % in water (D50W) intravenous solution [generic] Dextrose 50% reyes 20-50 ml (slow push) Intravenous if Glucagon not effective after 15 minutes. CALL 911 for ED Evaluation. 50% reyes 202300 /0000 Active 2023 46718 63461 9 Intrav enous False Glucagon (HCl) Emergency Kit 1 mg solution for injection Administer Glucagon 1 mg Intramuscular if 15 minutes after GLucose Gel is administered Glucose remains less than 70 1 mg 2023 Active 2023 55423 56860 2 Intram uscula r False Glucose Gel 40 % oral gel [Dextrose] PRN If resident is unable to swallow (with or without symptoms) and Glucose results less than 70 give GLucose 40% Gel 1 tube orally - Recheck Glucose 15 minutes after administratio n. 1 tube 2023 Active 2023 22702 51727 8 By Mouth False Lorazepam 0.5 mg tablet [generic] 0.5 mg By Mouth Every 8 hours as needed For Anxiety 0.5 mg 2023 Active 2023 32166 59636 0 Every 8 hours as needed By Mouth False Potassium chloride ER 20 mEq tablet,exte nded release [generic] 40 meq By Mouth Once daily For Hypokalemia 40 meq 11/13 Inactiv e 2023 90132 68072 1 Once daily By Mouth False Colesevelam 625 mg tablet [generic] 1250 mg By Mouth Twice daily For TYPE 2 DIABETES MELLITUS WITHOUT COMPLICATIONS 1250 mg 2023 Active 2023 08888 02486 1 Twice daily By Mouth E11.9 False Pioglitazon e 15 mg tablet [generic] 15 mg By Mouth Once daily For TYPE 2 DIABETES MELLITUS WITHOUT COMPLICATIONS 15 mg 11/14 Inactiv e 2023 98350 04900 1 Once daily By Mouth E11.9 False Cholecalcif hardeep (vitamin D3) 50 mcg (2,000 unit) tablet [generic] 50 mcg By Mouth Once daily For Supplement 50 mcg 2023 Active 2023 56408 88946 1 Once daily By Mouth False Colchicine 0.6 mg tablet [generic] 0.6 mg By Mouth Twice daily As Needed For Gout 0.6 mg 2023 Active 2023 94503 88061 4 Twice daily By Mouth False Levothyroxi ne 200 mcg tablet [generic] 200 mcg By Mouth Once daily For Hypothyroidis m 200 mcg 2023 Active 2023 30024 64856 0 Once daily By Mouth False Ondansetron 4 mg disintegrat ing tablet [generic] 4 mg By Mouth Every 6 hours as needed For Nausea 4 mg 11/12 Inactiv e 2023 47678 59148 4 Every 6 hours as needed By Mouth False Docusate sodium 100 mg capsule [generic] 100 mg By Mouth Twice daily For Constipation 100 mg 2023 Active 2023 26225 15076 1 Twice daily By Mouth False Oxycodone 5 mg tablet [generic] 5 mg By Mouth Every 6 hours as needed For Pain 5 mg 11/12 Inactiv e 2023 63971 11587 1 Every 6 hours as needed By Mouth False Oxycodone 5 mg tablet [generic] 5 mg By Mouth Every 6 hours as needed For Pain 5 mg 2023 Active 2023 84646 32679 1 Every 6 hours as needed By Mouth False Milk of Magnesia 400 mg/5 mL oral suspension 30 ml By Mouth one time per day as needed if no BM x 3 days For Constipation 30 ml 2023 Active 2023 79824 94364 2 By Mouth False Ondansetron 4 mg disintegrat ing tablet [generic] 11/12 Inactiv e 2023 61897 31202 4 Ondansetron 4 mg disintegrat ing tablet [generic] 4 mg By Mouth Every 6 hours as needed For Nausea 4 mg 11/14 Inactiv e 2023 46055 05042 4 Every 6 hours as needed By Mouth False Potassium chloride ER 10 mEq capsule,ext ended release [generic] 40 mEq By Mouth Once daily For hypokalemia 40 mEq 202300 Active 2023 37933 48767 1 Once daily By Mouth False Potassium chloride ER 10 mEq capsule,ext ended release [generic] 4 capsules By Mouth At bedtime For hypokalemia 4 capsule s 11/16 Inactiv e 2023 51065 18076 1 At bedtime By Mouth False Flomax 0.4 mg capsule 0.4 mg By Mouth At bedtime For Urinary retention 0.4 mg 2023 Active 2023 84588 23902 1 At bedtime By Mouth False STOOL CULTURE Once daily Obtain stool culture, add C. Diff to routine stool culture For Rule out C. Diff 1x 2023 Active 2023 Once daily Other False Butrans 5 mcg/hour transdermal patch 1 patch Transdermal Every 7 Days For Pain 1 patch 2023 Active 2023 81482 17731 4 Every week Transd ermal False Pantoprazol e 40 mg tablet,nu yed release [generic] 40 mg By Mouth Twice daily For gerd 40 mg 2023 Active 2023 43046 26318 0 Twice daily By Mouth False Scopolamine 1 mg over 3 days transdermal patch [generic] 1 Transdermal Every 72 hours For nausea 1 11/21 Active 2023 61074 18240 4 Every 72 hours Transd ermal False Ondansetron 4 mg disintegrat ing tablet [generic] 11/14 Inactiv e 2023 78272 16690 4 Ondansetron 4 mg disintegrat ing tablet [generic] 4 mg By Mouth Every 8 hours For Nausea 4 mg 2023 Active 2023 00280 47143 4 Every 8 hours By Mouth False Miralax 17 gram oral powder packet 8.5 g (1/2 capful) By Mouth Once daily For constipation 8.5 g 2023 Active 2023 09631 79368 6 Once daily By Mouth False Pioglitazon e 15 mg tablet [generic] 11/14 Inactiv e 2023 41790 03488 1 E11.9 Pioglitazon e 15 mg tablet [generic] 7.5mg ( half a tab) By Mouth Once daily For TYPE 2 DIABETES MELLITUS WITHOUT COMPLICATIONS 7.5mg 2023 Active 2023 65812 95654 1 Once daily By Mouth E11.9 False [...] weight Temperature SpO2 Blood Sugar Pulse Respirations 15750 918 71018 5 75.00 mm[Hg] - Sitting 140.00 mm[Hg] - Sitting 65 NI 98.00 Tympanic 95.00 % 102.00 /min 18.00/min 19124 918 35305 9 34776 918 09097 2 75.00 mm[Hg] - Sitting 140.00 mm[Hg] - Sitting 98.00 Tympanic 102.00 /min 18.00/min 30039 918 99081 3 17188 918 62624 1 72.00 mm[Hg] - Sitting 138.00 mm[Hg] - Sitting 98.40 Tympanic 08432 918 39034 4 88.00/ min 18.00/min 40746 919 99821 4 71.00 mm[Hg] - Sitting 115.00 mm[Hg] - Sitting 98.30 Tympanic 97.00 % 86.00/ min 16.00/min 41233 919 97975 0 71.00 mm[Hg] - Sitting 115.00 mm[Hg] - Sitting 98.30 Tympanic 86.00/ min 16.00/min 20245 919 04681 7 71.00 mm[Hg] - Sitting 115.00 mm[Hg] - Sitting 98.30 Tympanic 86.00/ min 16.00/min 99916 920 30164 6 72.00 mm[Hg] - Sitting 112.00 mm[Hg] - Sitting 98.10 Tympanic 82.00/ min 18.00/min 29692 920 14137 0 75.00 mm[Hg] - Sitting 130.00 mm[Hg] - Sitting 98.40 Forehead Scan 93.00 % 88.00/ min 18.00/min 08075 920 72394 2 75.00 mm[Hg] - Lying Down 130.00 mm[Hg] - Lying Down 98.40 Tympanic 88.00/ min 18.00/min 75228 920 14099 5 75.00 mm[Hg] - Lying Down 130.00 mm[Hg] - Lying Down 98.40 Tympanic 88.00/ min 18.00/min 89889 920 36720 6 199.00 NI 99399 920 93811 3 75.00 mm[Hg] - Sitting 130.00 mm[Hg] - Sitting 98.40 Tympanic 88.00/ min 18.00/min 92432 921 63398 1 71.00 mm[Hg] - Lying Down 119.00 mm[Hg] - Lying Down 98.40 Forehead Scan 96.00 % 83.00/ min 16.00/min
--- OUTSIDE RECORDS SUMMARY | 2023-12-13 23:59 | External Medical Summary | Continuity Of Care Document ---
Author Name Unknown Address [address] [place] [address] Organization [facility] () Care Team Providers Care Claim Trainee Name Role Phone DO Parson Amy Primary Care Provider [phone] Allergies Allergy Reaction Start Date End Date [...] 3 0.1 mL 11/13 Inactiv e 2023 59240 05690 0 1 time Intrad ermal False Tubersol 5 tub. unit/0.1 mL intradermal injection solution [Tuberculin PPD] 0.1mL Intradermal 1 time For PPD 2nd Step Give 2nd Step PPD Day 1 and Read results Day 3 (schedule 7 days after 1st READ) 0.1mL 11/13 Inactiv e 2023 47716 44116 0 1 time Intrad ermal False DISCONTINUE as of 11/14/2023: Tubersol 5 tub. unit/0.1 mL intradermal injection solution [Tuberculin PPD] 11/13 Inactiv e 2023 64025 80915 0 Tubersol 5 tub. unit/0.1 mL intradermal injection solution 0.1 mL Intradermal 1 time For PPD Step 1 GIVE on Day 1 and read results Day 3 0.1 mL 11/16 Inactiv e 2023 11366 50674 1 1 time Intrad ermal False DISCONTINUE as of 11/14/2023: Tubersol 5 tub. unit/0.1 mL intradermal injection solution [Tuberculin PPD] 11/13 Inactiv e 2023 41443 87590 0 Tubersol 5 tub. unit/0.1 mL intradermal injection solution 0.1mL Intradermal 1 time For PPD 2nd Step Give 2nd Step PPD Day 1 and Read results Day 3 (schedule 7 days after 1st READ) 0.1mL 11/25 Active 2023 80680 47666 1 1 time Intrad ermal False Tylenol 325 mg tablet 2 tabs By Mouth Every 4 hours as needed For Pain DO NOT EXCEED 3000 MG APAP/24 Hours 2 tabs 202300 /0000 Active 2023 67649 54009 0 Every 4 hours as needed By Mouth False Tylenol 325 mg tablet 2 tabs By Mouth Every 4 hours as needed For Fever >100 DO NOT EXCEED 3000 MG APAP/24 Hours 2 tabs 202300 /0000 Active 2023 60049 81900 0 Every 4 hours as needed By Mouth False Dulcolax (bisacodyl) 10 mg rectal suppository One Suppository per rectum PRN if Milk of Magnisia ineffective. Give on day 5 of no BM 1 sup 2023 Active 2023 42010 42308 1 Daily as needed Rectal False Fleet Enema 19 gram-7 gram/118 mL Administer per rectum PRN one time if dulcolax suppository not effective. Give on day 6 of no BM 1 202300 0000 Active 2023 98833 74350 6 Daily as needed Rectal False Dextrose 50 % in water (D50W) intravenous solution [generic] Dextrose 50% reyes 20-50 ml (slow push) Intravenous if Glucagon not effective after 15 minutes. CALL 911 for ED Evaluation. 50% reyes 202300 /0000 Active 2023 99271 67699 9 Intrav enous False Glucagon (HCl) Emergency Kit 1 mg solution for injection Administer Glucagon 1 mg Intramuscular if 15 minutes after GLucose Gel is administered Glucose remains less than 70 1 mg 2023 Active 2023 44299 32725 2 Intram uscula r False Glucose Gel 40 % oral gel [Dextrose] PRN If resident is unable to swallow (with or without symptoms) and Glucose results less than 70 give GLucose 40% Gel 1 tube orally - Recheck Glucose 15 minutes after administratio n. 1 tube 2023 Active 2023 71372 72431 8 By Mouth False Lorazepam 0.5 mg tablet [generic] 0.5 mg By Mouth Every 8 hours as needed For Anxiety 0.5 mg 11/18 Inactiv e 2023 41180 48403 0 Every 8 hours as needed By Mouth False Potassium chloride ER 20 mEq tablet,exte nded release [generic] 40 meq By Mouth Once daily For Hypokalemia 40 meq 11/13 Inactiv e 2023 10016 02111 1 Once daily By Mouth False Colesevelam 625 mg tablet [generic] 1250 mg By Mouth Twice daily For TYPE 2 DIABETES MELLITUS WITHOUT COMPLICATIONS 1250 mg 2023 Active 2023 35727 60020 1 Twice daily By Mouth E11.9 False Pioglitazon e 15 mg tablet [generic] 15 mg By Mouth Once daily For TYPE 2 DIABETES MELLITUS WITHOUT COMPLICATIONS 15 mg 11/14 Inactiv e 2023 38006 00022 1 Once daily By Mouth E11.9 False Cholecalcif hardeep (vitamin D3) 50 mcg (2,000 unit) tablet [generic] 50 mcg By Mouth Once daily For Supplement 50 mcg 2023 Active 2023 42979 41184 1 Once daily By Mouth False Colchicine 0.6 mg tablet [generic] 0.6 mg By Mouth Twice daily As Needed For Gout 0.6 mg 2023 Active 2023 86098 45756 4 Twice daily By Mouth False Levothyroxi ne 200 mcg tablet [generic] 200 mcg By Mouth Once daily For Hypothyroidis m 200 mcg 2023 0000 0000 Active 2023 94293 46736 0 Once daily By Mouth False Ondansetron 4 mg disintegrat ing tablet [generic] 4 mg By Mouth Every 6 hours as needed For Nausea 4 mg 11/12 Inactiv e 2023 54913 31559 4 Every 6 hours as needed By Mouth False Docusate sodium 100 mg capsule [generic] 100 mg By Mouth Twice daily For Constipation 100 mg 202300 Active 2023 30762 74390 1 Twice daily By Mouth False Oxycodone 5 mg tablet [generic] 5 mg By Mouth Every 6 hours as needed For Pain 5 mg 11/12 Inactiv e 2023 06853 10481 1 Every 6 hours as needed By Mouth False Oxycodone 5 mg tablet [generic] 5 mg By Mouth Every 6 hours as needed For Pain 5 mg 11/18 Inactiv e 2023 56560 30196 1 Every 6 hours as needed By Mouth False Milk of Magnesia 400 mg/5 mL oral suspension 30 ml By Mouth one time per day as needed if no BM x 3 days For Constipation 30 ml 202300 Active 2023 04992 70172 2 By Mouth False Ondansetron 4 mg disintegrat ing tablet [generic] 11/12 Inactiv e 2023 26963 58253 4 Ondansetron 4 mg disintegrat ing tablet [generic] 4 mg By Mouth Every 6 hours as needed For Nausea 4 mg 11/14 Inactiv e 2023 59083 39812 4 Every 6 hours as needed By Mouth False Potassium chloride ER 10 mEq capsule,ext ended release [generic] 40 mEq By Mouth Once daily For hypokalemia 40 mEq 11/17 Inactiv e 2023 25801 48837 1 Once daily By Mouth False Potassium chloride ER 10 mEq capsule,ext ended release [generic] 4 capsules By Mouth At bedtime For hypokalemia 4 capsule s 11/16 Inactiv e 2023 86419 53446 1 At bedtime By Mouth False Flomax 0.4 mg capsule 0.4 mg By Mouth At bedtime For Urinary retention 0.4 mg 11/18 Inactiv e 2023 02396 40538 1 At bedtime By Mouth False STOOL CULTURE Once daily Obtain stool culture, add C. Diff to routine stool culture For Rule out C. Diff 1x 2023 Active 2023 Once daily Other False Butrans 5 mcg/hour transdermal patch 1 patch Transdermal Every 7 Days For Pain 1 patch 2023 Active 2023 20383 08017 4 Every week Transd ermal False Pantoprazol e 40 mg tablet,nu yed release [generic] 40 mg By Mouth Twice daily For gerd 40 mg 2023 Active 2023 26980 18098 0 Twice daily By Mouth False Scopolamine 1 mg over 3 days transdermal patch [generic] 1 Transdermal Every 72 hours For nausea 1 11/21 Active 2023 77586 64799 4 Every 72 hours Transd ermal False Ondansetron 4 mg disintegrat ing tablet [generic] 11/14 Inactiv e 2023 80228 45184 4 Ondansetron 4 mg disintegrat ing tablet [generic] 4 mg By Mouth Every 8 hours For Nausea 4 mg 2023 Active 2023 58176 43015 4 Every 8 hours By Mouth False Miralax 17 gram oral powder packet 8.5 g (1/2 capful) By Mouth Once daily For constipation 8.5 g 2023 Active 2023 27125 03146 6 Once daily By Mouth False Pioglitazon e 15 mg tablet [generic] 11/14 Inactiv e 2023 31963 58199 1 E11.9 Pioglitazon e 15 mg tablet [generic] 7.5mg ( half a tab) By Mouth Once daily For TYPE 2 DIABETES MELLITUS WITHOUT COMPLICATIONS 7.5mg 2023 Active 2023 00952 62039 1 Once daily By Mouth E11.9 False Mylanta Coat-Cool 1,200 mg-270 mg-80 mg/10 mL oral suspension 10 ml By Mouth Every 8 hours As Needed For heartburn, indigestion, gas 10 ml 2023 Active 2023 95797 71439 1 Every 8 hours By Mouth False Prochlorper azine maleate 5 mg tablet [generic] 5 mg By Mouth Every 8 hours as needed For Nausea 5 mg 2023 Active 2023 90948 82475 1 Every 8 hours as needed By Mouth False Potassium chloride ER 10 mEq capsule,ext ended release [generic] 10 meq By Mouth 4 times a day For Hypokalemia 10 meq 2023 Active 2023 85043 51165 1 4 times a day By Mouth False Lorazepam 0.5 mg tablet [generic] 11/18 Inactiv e 2023 87011 09948 0 Lorazepam 0.5 mg tablet [generic] 0.5 mg By Mouth Every 8 hours as needed For Anxiety 0.5 mg 12/18 Active 2023 92276 98200 0 Every 8 hours as needed By Mouth False Flomax 0.4 mg capsule 11/18 Inactiv e 2023 74114 09748 1 Flomax 0.4 mg capsule 0.4 mg By Mouth Once daily For Urinary retention 0.4 mg 2023 Active 2023 99881 23653 1 Once daily By Mouth False Oxycodone 5 mg tablet [generic] 11/18 Inactiv e 2023 87677 05541 1 Oxycodone 5 mg tablet [generic] 5 mg By Mouth Every 6 hours as needed For Back Pain 5 mg 2023 Active 2023 07397 33969 1 Every 6 hours as needed By [...] weight Temperature SpO2 Blood Sugar Pulse Respirations 69052 5 75.00 mm[Hg] - Sitting 140.00 mm[Hg] - Sitting 65 NI 98.00 Tympanic 95.00 % 102.00 /min 18.00/min 8 07694 9 53500 2 75.00 mm[Hg] - Sitting 140.00 mm[Hg] - Sitting 98.00 Tympanic 102.00 /min 18.00/min 918 06702 3 8 26182 1 72.00 mm[Hg] - Sitting 138.00 mm[Hg] - Sitting 98.40 Tympanic 74575 4 88.00/ min 18.00/min 63975 919 88152 4 71.00 mm[Hg] - Sitting 115.00 mm[Hg] - Sitting 98.30 Tympanic 97.00 % 86.00/ min 16.00/min 81487 919 98628 0 71.00 mm[Hg] - Sitting 115.00 mm[Hg] - Sitting 98.30 Tympanic 86.00/ min 16.00/min 87175 919 56621 7 71.00 mm[Hg] - Sitting 115.00 mm[Hg] - Sitting 98.30 Tympanic 86.00/ min 16.00/min 75646 920 72939 6 72.00 mm[Hg] - Sitting 112.00 mm[Hg] - Sitting 98.10 Tympanic 82.00/ min 18.00/min 10825 920 26143 0 75.00 mm[Hg] - Sitting 130.00 mm[Hg] - Sitting 98.40 Forehead Scan 93.00 % 88.00/ min 18.00/min 60018 920 70436 2 75.00 mm[Hg] - Lying Down 130.00 mm[Hg] - Lying Down 98.40 Tympanic 88.00/ min 18.00/min 32687 920 45496 5 75.00 mm[Hg] - Lying Down 130.00 mm[Hg] - Lying Down 98.40 Tympanic 88.00/ min 18.00/min 54672 920 74056 6 199.00 [place] [address] 920 56460 3 75.00 mm[Hg] - Sitting 130.00 mm[Hg] - Sitting 98.40 Tympanic 88.00/ min 18.00/min 61406 921 19054 1 71.00 mm[Hg] - Lying Down 119.00 mm[Hg] - Lying Down 98.40 Forehead Scan 96.00 % 83.00/ min 16.00/min 96570 922 44226 6 71.00 mm[Hg] - Lying Down 128.00 mm[Hg] - Lying Down 98.30 Forehead Scan 94.00 % 84.00/ min 18.00/min 42983 923 40786 4 63.00 mm[Hg] - Sitting 105.00 mm[Hg] - Sitting 98.20 Tympanic 93.00 % 93.00/ min 18.00/min
--- OUTSIDE RECORDS SUMMARY | 2023-12-13 23:59 | External Medical Summary | Continuity Of Care Document ---
Author Name Unknown Address [address] [place] [address] Organization [facility] () Care Team Providers Care [employer] Feeder Name Role Phone DO Parson Amy Primary Care Provider [phone] Allergies Allergy Reaction Start Date End Date [...] 3 0.1 mL 11/13 Inactiv e 2023 34996 03487 0 1 time Intrad ermal False Tubersol 5 tub. unit/0.1 mL intradermal injection solution [Tuberculin PPD] 0.1mL Intradermal 1 time For PPD 2nd Step Give 2nd Step PPD Day 1 and Read results Day 3 (schedule 7 days after 1st READ) 0.1mL 11/13 Inactiv e 2023 10926 13697 0 1 time Intrad ermal False DISCONTINUE as of 11/14/2023: Tubersol 5 tub. unit/0.1 mL intradermal injection solution [Tuberculin PPD] 11/13 Inactiv e 2023 22462 14078 0 Tubersol 5 tub. unit/0.1 mL intradermal injection solution 0.1 mL Intradermal 1 time For PPD Step 1 GIVE on Day 1 and read results Day 3 0.1 mL 11/16 Inactiv e 2023 08232 14713 1 1 time Intrad ermal False DISCONTINUE as of 11/14/2023: Tubersol 5 tub. unit/0.1 mL intradermal injection solution [Tuberculin PPD] 11/13 Inactiv e 2023 75437 43403 0 Tubersol 5 tub. unit/0.1 mL intradermal injection solution 0.1mL Intradermal 1 time For PPD 2nd Step Give 2nd Step PPD Day 1 and Read results Day 3 (schedule 7 days after 1st READ) 0.1mL 11/25 Active 2023 03499 64524 1 1 time Intrad ermal False Tylenol 325 mg tablet 2 tabs By Mouth Every 4 hours as needed For Pain DO NOT EXCEED 3000 MG APAP/24 Hours 2 tabs 202300 /0000 Active 2023 27491 27232 0 Every 4 hours as needed By Mouth False Tylenol 325 mg tablet 2 tabs By Mouth Every 4 hours as needed For Fever >100 DO NOT EXCEED 3000 MG APAP/24 Hours 2 tabs 202300 /0000 Active 2023 29370 78235 0 Every 4 hours as needed By Mouth False Dulcolax (bisacodyl) 10 mg rectal suppository One Suppository per rectum PRN if Milk of Magnisia ineffective. Give on day 5 of no BM 1 sup 2023 Active 2023 70645 26347 1 Daily as needed Rectal False Fleet Enema 19 gram-7 gram/118 mL Administer per rectum PRN one time if dulcolax suppository not effective. Give on day 6 of no BM 1 202300 0000 Active 2023 94065 98905 6 Daily as needed Rectal False Dextrose 50 % in water (D50W) intravenous solution [generic] Dextrose 50% reyes 20-50 ml (slow push) Intravenous if Glucagon not effective after 15 minutes. CALL 911 for ED Evaluation. 50% reyes 202300 /0000 Active 2023 22739 44377 9 Intrav enous False Glucagon (HCl) Emergency Kit 1 mg solution for injection Administer Glucagon 1 mg Intramuscular if 15 minutes after GLucose Gel is administered Glucose remains less than 70 1 mg 2023 Active 2023 07038 82570 2 Intram uscula r False Glucose Gel 40 % oral gel [Dextrose] PRN If resident is unable to swallow (with or without symptoms) and Glucose results less than 70 give GLucose 40% Gel 1 tube orally - Recheck Glucose 15 minutes after administratio n. 1 tube 2023 Active 2023 37735 33063 8 By Mouth False Lorazepam 0.5 mg tablet [generic] 0.5 mg By Mouth Every 8 hours as needed For Anxiety 0.5 mg 11/18 Inactiv e 2023 23579 84131 0 Every 8 hours as needed By Mouth False Potassium chloride ER 20 mEq tablet,exte nded release [generic] 40 meq By Mouth Once daily For Hypokalemia 40 meq 11/13 Inactiv e 2023 48286 10998 1 Once daily By Mouth False Colesevelam 625 mg tablet [generic] 1250 mg By Mouth Twice daily For TYPE 2 DIABETES MELLITUS WITHOUT COMPLICATIONS 1250 mg 2023 Active 2023 49983 20881 1 Twice daily By Mouth E11.9 False Pioglitazon e 15 mg tablet [generic] 15 mg By Mouth Once daily For TYPE 2 DIABETES MELLITUS WITHOUT COMPLICATIONS 15 mg 11/14 Inactiv e 2023 61526 46313 1 Once daily By Mouth E11.9 False Cholecalcif hardeep (vitamin D3) 50 mcg (2,000 unit) tablet [generic] 50 mcg By Mouth Once daily For Supplement 50 mcg 2023 Active 2023 45269 09425 1 Once daily By Mouth False Colchicine 0.6 mg tablet [generic] 0.6 mg By Mouth Twice daily As Needed For Gout 0.6 mg 2023 Active 2023 37847 96095 4 Twice daily By Mouth False Levothyroxi ne 200 mcg tablet [generic] 200 mcg By Mouth Once daily For Hypothyroidis m 200 mcg 2023 0000 0000 Active 2023 07298 11565 0 Once daily By Mouth False Ondansetron 4 mg disintegrat ing tablet [generic] 4 mg By Mouth Every 6 hours as needed For Nausea 4 mg 11/12 Inactiv e 2023 56811 39512 4 Every 6 hours as needed By Mouth False Docusate sodium 100 mg capsule [generic] 100 mg By Mouth Twice daily For Constipation 100 mg 202300 Active 2023 44286 19148 1 Twice daily By Mouth False Oxycodone 5 mg tablet [generic] 5 mg By Mouth Every 6 hours as needed For Pain 5 mg 11/12 Inactiv e 2023 48416 73162 1 Every 6 hours as needed By Mouth False Oxycodone 5 mg tablet [generic] 5 mg By Mouth Every 6 hours as needed For Pain 5 mg 11/18 Inactiv e 2023 44429 52887 1 Every 6 hours as needed By Mouth False Milk of Magnesia 400 mg/5 mL oral suspension 30 ml By Mouth one time per day as needed if no BM x 3 days For Constipation 30 ml 202300 Active 2023 13216 54739 2 By Mouth False Ondansetron 4 mg disintegrat ing tablet [generic] 11/12 Inactiv e 2023 15220 45279 4 Ondansetron 4 mg disintegrat ing tablet [generic] 4 mg By Mouth Every 6 hours as needed For Nausea 4 mg 11/14 Inactiv e 2023 12164 01164 4 Every 6 hours as needed By Mouth False Potassium chloride ER 10 mEq capsule,ext ended release [generic] 40 mEq By Mouth Once daily For hypokalemia 40 mEq 11/17 Inactiv e 2023 60177 50592 1 Once daily By Mouth False Potassium chloride ER 10 mEq capsule,ext ended release [generic] 4 capsules By Mouth At bedtime For hypokalemia 4 capsule s 11/16 Inactiv e 2023 73784 94803 1 At bedtime By Mouth False Flomax 0.4 mg capsule 0.4 mg By Mouth At bedtime For Urinary retention 0.4 mg 11/18 Inactiv e 2023 00889 78058 1 At bedtime By Mouth False STOOL CULTURE Once daily Obtain stool culture, add C. Diff to routine stool culture For Rule out C. Diff 1x 2023 Active 2023 Once daily Other False Butrans 5 mcg/hour transdermal patch 1 patch Transdermal Every 7 Days For Pain 1 patch 2023 Active 2023 83531 15000 4 Every week Transd ermal False Pantoprazol e 40 mg tablet,nu yed release [generic] 40 mg By Mouth Twice daily For gerd 40 mg 2023 Active 2023 26398 73524 0 Twice daily By Mouth False Scopolamine 1 mg over 3 days transdermal patch [generic] 1 Transdermal Every 72 hours For nausea 1 11/21 Active 2023 09446 41304 4 Every 72 hours Transd ermal False Ondansetron 4 mg disintegrat ing tablet [generic] 11/14 Inactiv e 2023 15212 50848 4 Problems Code Description Start Date End Date [...] Temperature SpO2 Blood Sugar Pulse Respirations 8 34206 5 75.00 mm[Hg] - Sitting 140.00 mm[Hg] - Sitting 65 NI 98.00 Tympanic 95.00 % 102.00 /min 18.00/min 99685 918 40606 9 08299 918 22803 2 75.00 mm[Hg] - Sitting 140.00 mm[Hg] - Sitting 98.00 Tympanic 102.00 /min 18.00/min 07557 918 19855 3 80660 918 70510 1 72.00 mm[Hg] - Sitting 138.00 mm[Hg] - Sitting 98.40 Tympanic 59498 918 04313 4 88.00/ min 18.00/min 31443 919 12074 4 71.00 mm[Hg] - Sitting 115.00 mm[Hg] - Sitting 98.30 Tympanic 97.00 % 86.00/ min 16.00/min 92748 919 28960 0 71.00 mm[Hg] - Sitting 115.00 mm[Hg] - Sitting 98.30 Tympanic 86.00/ min 16.00/min 14421 919 37874 7 71.00 mm[Hg] - Sitting 115.00 mm[Hg] - Sitting 98.30 Tympanic 86.00/ min 16.00/min 15543 920 86261 6 72.00 mm[Hg] - Sitting 112.00 mm[Hg] - Sitting 98.10 Tympanic 82.00/ min 18.00/min 72140 920 18788 0 75.00 mm[Hg] - Sitting 130.00 mm[Hg] - Sitting 98.40 Forehead Scan 93.00 % 88.00/ min 18.00/min 83816 920 14846 2 75.00 mm[Hg] - Lying Down 130.00 mm[Hg] - Lying Down 98.40 Tympanic 88.00/ min 18.00/min 74121 920 26079 5 75.00 mm[Hg] - Lying Down 130.00 mm[Hg] - Lying Down 98.40 Tympanic 88.00/ min 18.00/min 79374 920 15969 6 199.00 NI 16383 920 45168 3 75.00 mm[Hg] - Sitting 130.00 mm[Hg] - Sitting 98.40 Tympanic 88.00/ min 18.00/min 55115 921 33392 1 71.00 mm[Hg] - Lying Down 119.00 mm[Hg] - Lying Down 98.40 Forehead Scan 96.00 % 83.00/ min 16.00/min 20559 922 69276 6 98.30 Forehead Scan
--- OUTSIDE RECORDS SUMMARY | 2023-12-13 23:59 | External Medical Summary | Continuity Of Care Document ---
Author Name Unknown Address [address] [place] [address] Organization [facility] [place] () Care Team Providers Care Talent Sourcer Name Role Phone DO Parson Amy Primary Care Provider [phone] Allergies Allergy Reaction Start Date End Date [...] 3 0.1 mL 11/13 Inactiv e 2023 32923 43205 0 1 time Intrad ermal False Tubersol 5 tub. unit/0.1 mL intradermal injection solution [Tuberculin PPD] 0.1mL Intradermal 1 time For PPD 2nd Step Give 2nd Step PPD Day 1 and Read results Day 3 (schedule 7 days after 1st READ) 0.1mL 11/13 Inactiv e 2023 52079 11936 0 1 time Intrad ermal False DISCONTINUE as of 11/14/2023: Tubersol 5 tub. unit/0.1 mL intradermal injection solution [Tuberculin PPD] 11/13 Inactiv e 2023 13233 31236 0 Tubersol 5 tub. unit/0.1 mL intradermal injection solution 0.1 mL Intradermal 1 time For PPD Step 1 GIVE on Day 1 and read results Day 3 0.1 mL 11/16 Inactiv e 2023 31082 93021 1 1 time Intrad ermal False DISCONTINUE as of 11/14/2023: Tubersol 5 tub. unit/0.1 mL intradermal injection solution [Tuberculin PPD] 11/13 Inactiv e 2023 07545 38905 0 Tubersol 5 tub. unit/0.1 mL intradermal injection solution 0.1mL Intradermal 1 time For PPD 2nd Step Give 2nd Step PPD Day 1 and Read results Day 3 (schedule 7 days after 1st READ) 0.1mL 11/25 Active 2023 78407 49356 1 1 time Intrad ermal False Tylenol 325 mg tablet 2 tabs By Mouth Every 4 hours as needed For Pain DO NOT EXCEED 3000 MG APAP/24 Hours 2 tabs 202300 /0000 Active 2023 34933 45939 0 Every 4 hours as needed By Mouth False Tylenol 325 mg tablet 2 tabs By Mouth Every 4 hours as needed For Fever >100 DO NOT EXCEED 3000 MG APAP/24 Hours 2 tabs 202300 /0000 Active 2023 57971 44113 0 Every 4 hours as needed By Mouth False Dulcolax (bisacodyl) 10 mg rectal suppository One Suppository per rectum PRN if Milk of Magnisia ineffective. Give on day 5 of no BM 1 sup 2023 Active 2023 93262 93665 1 Daily as needed Rectal False Fleet Enema 19 gram-7 gram/118 mL Administer per rectum PRN one time if dulcolax suppository not effective. Give on day 6 of no BM 1 202300 0000 Active 2023 88471 18888 6 Daily as needed Rectal False Dextrose 50 % in water (D50W) intravenous solution [generic] Dextrose 50% reyes 20-50 ml (slow push) Intravenous if Glucagon not effective after 15 minutes. CALL 911 for ED Evaluation. 50% reyes 202300 /0000 Active 2023 80482 72995 9 Intrav enous False Glucagon (HCl) Emergency Kit 1 mg solution for injection Administer Glucagon 1 mg Intramuscular if 15 minutes after GLucose Gel is administered Glucose remains less than 70 1 mg 2023 Active 2023 59517 72238 2 Intram uscula r False Glucose Gel 40 % oral gel [Dextrose] PRN If resident is unable to swallow (with or without symptoms) and Glucose results less than 70 give GLucose 40% Gel 1 tube orally - Recheck Glucose 15 minutes after administratio n. 1 tube 2023 Active 2023 38017 49998 8 By Mouth False Lorazepam 0.5 mg tablet [generic] 0.5 mg By Mouth Every 8 hours as needed For Anxiety 0.5 mg 11/18 Inactiv e 2023 85426 70218 0 Every 8 hours as needed By Mouth False Potassium chloride ER 20 mEq tablet,exte nded release [generic] 40 meq By Mouth Once daily For Hypokalemia 40 meq 11/13 Inactiv e 2023 49908 28332 1 Once daily By Mouth False Colesevelam 625 mg tablet [generic] 1250 mg By Mouth Twice daily For TYPE 2 DIABETES MELLITUS WITHOUT COMPLICATIONS 1250 mg 2023 Active 2023 12876 64336 1 Twice daily By Mouth E11.9 False Pioglitazon e 15 mg tablet [generic] 15 mg By Mouth Once daily For TYPE 2 DIABETES MELLITUS WITHOUT COMPLICATIONS 15 mg 11/14 Inactiv e 2023 53814 82980 1 Once daily By Mouth E11.9 False Cholecalcif hardeep (vitamin D3) 50 mcg (2,000 unit) tablet [generic] 50 mcg By Mouth Once daily For Supplement 50 mcg 2023 Active 2023 34842 36274 1 Once daily By Mouth False Colchicine 0.6 mg tablet [generic] 0.6 mg By Mouth Twice daily As Needed For Gout 0.6 mg 2023 Active 2023 71372 38455 4 Twice daily By Mouth False Levothyroxi ne 200 mcg tablet [generic] 200 mcg By Mouth Once daily For Hypothyroidis m 200 mcg 2023 0000 0000 Active 2023 15681 41503 0 Once daily By Mouth False Ondansetron 4 mg disintegrat ing tablet [generic] 4 mg By Mouth Every 6 hours as needed For Nausea 4 mg 11/12 Inactiv e 2023 80857 59558 4 Every 6 hours as needed By Mouth False Docusate sodium 100 mg capsule [generic] 100 mg By Mouth Twice daily For Constipation 100 mg 202300 Active 2023 37962 23417 1 Twice daily By Mouth False Oxycodone 5 mg tablet [generic] 5 mg By Mouth Every 6 hours as needed For Pain 5 mg 11/12 Inactiv e 2023 85290 45326 1 Every 6 hours as needed By Mouth False Oxycodone 5 mg tablet [generic] 5 mg By Mouth Every 6 hours as needed For Pain 5 mg 11/18 Inactiv e 2023 10491 80406 1 Every 6 hours as needed By Mouth False Milk of Magnesia 400 mg/5 mL oral suspension 30 ml By Mouth one time per day as needed if no BM x 3 days For Constipation 30 ml 202300 Active 2023 67590 17264 2 By Mouth False Ondansetron 4 mg disintegrat ing tablet [generic] 11/12 Inactiv e 2023 63362 51918 4 Ondansetron 4 mg disintegrat ing tablet [generic] 4 mg By Mouth Every 6 hours as needed For Nausea 4 mg 11/14 Inactiv e 2023 78806 86416 4 Every 6 hours as needed By Mouth False Potassium chloride ER 10 mEq capsule,ext ended release [generic] 40 mEq By Mouth Once daily For hypokalemia 40 mEq 11/17 Inactiv e 2023 58666 64429 1 Once daily By Mouth False Potassium chloride ER 10 mEq capsule,ext ended release [generic] 4 capsules By Mouth At bedtime For hypokalemia 4 capsule s 11/16 Inactiv e 2023 79813 62153 1 At bedtime By Mouth False Flomax 0.4 mg capsule 0.4 mg By Mouth At bedtime For Urinary retention 0.4 mg 11/18 Inactiv e 2023 24499 01649 1 At bedtime By Mouth False STOOL CULTURE Once daily Obtain stool culture, add C. Diff to routine stool culture For Rule out C. Diff 1x 2023 Active 2023 Once daily Other False Butrans 5 mcg/hour transdermal patch 1 patch Transdermal Every 7 Days For Pain 1 patch 2023 Active 2023 44462 77584 4 Every week Transd ermal False Pantoprazol e 40 mg tablet,nu yed release [generic] 40 mg By Mouth Twice daily For gerd 40 mg 2023 Active 2023 57247 26143 0 Twice daily By Mouth False Scopolamine 1 mg over 3 days transdermal patch [generic] 1 Transdermal Every 72 hours For nausea 1 11/21 Active 2023 85334 16366 4 Every 72 hours Transd ermal False Ondansetron 4 mg disintegrat ing tablet [generic] 11/14 Inactiv e 2023 36773 93328 4 Ondansetron 4 mg disintegrat ing tablet [generic] 4 mg By Mouth Every 8 hours For Nausea 4 mg 2023 Active 2023 21728 54324 4 Every 8 hours By Mouth False Miralax 17 gram oral powder packet 8.5 g (1/2 capful) By Mouth Once daily For constipation 8.5 g 2023 Active 2023 64271 76795 6 Once daily By Mouth False Pioglitazon e 15 mg tablet [generic] 11/14 Inactiv e 2023 55526 76199 1 E11.9 Pioglitazon e 15 mg tablet [generic] 7.5mg ( half a tab) By Mouth Once daily For TYPE 2 DIABETES MELLITUS WITHOUT COMPLICATIONS 7.5mg 2023 Active 2023 98685 09190 1 Once daily By Mouth E11.9 False Mylanta Coat-Cool 1,200 mg-270 mg-80 mg/10 mL oral suspension 10 ml By Mouth Every 8 hours As Needed For heartburn, indigestion, gas 10 ml 2023 Active 2023 70700 13615 1 Every 8 hours By Mouth False Prochlorper azine maleate 5 mg tablet [generic] 5 mg By Mouth Every 8 hours as needed For Nausea 5 mg 2023 Active 2023 15316 15734 1 Every 8 hours as needed By Mouth False Potassium chloride ER 10 mEq capsule,ext ended release [generic] 10 meq By Mouth 4 times a day For Hypokalemia 10 meq 2023 Active 2023 25763 66918 1 4 times a day By Mouth False Lorazepam 0.5 mg tablet [generic] 11/18 Inactiv e 2023 68263 35189 0 Lorazepam 0.5 mg tablet [generic] 0.5 mg By Mouth Every 8 hours as needed For Anxiety 0.5 mg 12/18 Active 2023 85422 78840 0 Every 8 hours as needed By Mouth False Flomax 0.4 mg capsule 11/18 Inactiv e 2023 93451 08119 1 Flomax 0.4 mg capsule 0.4 mg By Mouth Once daily For Urinary retention 0.4 mg 2023 Active 2023 86057 05814 1 Once daily By Mouth False Oxycodone 5 mg tablet [generic] 11/18 Inactiv e 2023 24788 62580 1 Oxycodone 5 mg tablet [generic] 5 mg By Mouth Every 6 hours as needed For Back Pain 5 mg 2023 Active 2023 70453 68071 1 Every 6 hours as needed By [...] weight Temperature SpO2 Blood Sugar Pulse Respirations 38866 5 75.00 mm[Hg] - Sitting 140.00 mm[Hg] - Sitting 65 NI 98.00 Tympanic 95.00 % 102.00 /min 18.00/min 8 39307 9 34332 2 75.00 mm[Hg] - Sitting 140.00 mm[Hg] - Sitting 98.00 Tympanic 102.00 /min 18.00/min 918 46383 3 8 42180 1 72.00 mm[Hg] - Sitting 138.00 mm[Hg] - Sitting 98.40 Tympanic 67723 4 88.00/ min 18.00/min 69372 919 72333 4 71.00 mm[Hg] - Sitting 115.00 mm[Hg] - Sitting 98.30 Tympanic 97.00 % 86.00/ min 16.00/min 53659 919 83493 0 71.00 mm[Hg] - Sitting 115.00 mm[Hg] - Sitting 98.30 Tympanic 86.00/ min 16.00/min 91875 919 52220 7 71.00 mm[Hg] - Sitting 115.00 mm[Hg] - Sitting 98.30 Tympanic 86.00/ min 16.00/min 43833 920 72960 6 72.00 mm[Hg] - Sitting 112.00 mm[Hg] - Sitting 98.10 Tympanic 82.00/ min 18.00/min 56106 920 95469 0 75.00 mm[Hg] - Sitting 130.00 mm[Hg] - Sitting 98.40 Forehead Scan 93.00 % 88.00/ min 18.00/min 95630 920 07258 2 75.00 mm[Hg] - Lying Down 130.00 mm[Hg] - Lying Down 98.40 Tympanic 88.00/ min 18.00/min 30448 920 55590 5 75.00 mm[Hg] - Lying Down 130.00 mm[Hg] - Lying Down 98.40 Tympanic 88.00/ min 18.00/min 06684 920 15027 6 199.00 NI 9[address]47 920 65820 3 75.00 mm[Hg] - Sitting 130.00 mm[Hg] - Sitting 98.40 Tympanic 88.00/ min 18.00/min 58541 921 36360 1 71.00 mm[Hg] - Lying Down 119.00 mm[Hg] - Lying Down 98.40 Forehead Scan 96.00 % 83.00/ min 16.00/min 51554 922 55802 6 71.00 mm[Hg] - Lying Down 128.00 mm[Hg] - Lying Down 98.30 Forehead Scan 94.00 % 84.00/ min 18.00/min 28795 923 11260 4 63.00 mm[Hg] - Sitting 105.00 mm[Hg] - Sitting 98.20 Tympanic 93.00 % 93.00/ min 18.00/min
--- OUTSIDE RECORDS SUMMARY | 2023-12-13 23:59 | External Medical Summary | Continuity Of Care Document ---
Author Name Unknown Address [address] [place] [address] Organization [facility] [place] () Care Team Providers Care Operational Risk Analyst Name Role Phone DO Parson Amy Primary Care Provider [phone] Allergies Allergy Reaction Start Date End Date [...] 3 0.1 mL 11/13 Inactiv e 2023 83392 26644 0 1 time Intrad ermal False Tubersol 5 tub. unit/0.1 mL intradermal injection solution [Tuberculin PPD] 0.1mL Intradermal 1 time For PPD 2nd Step Give 2nd Step PPD Day 1 and Read results Day 3 (schedule 7 days after 1st READ) 0.1mL 11/13 Inactiv e 2023 34988 16852 0 1 time Intrad ermal False DISCONTINUE as of 11/14/2023: Tubersol 5 tub. unit/0.1 mL intradermal injection solution [Tuberculin PPD] 11/13 Inactiv e 2023 47199 91513 0 Tubersol 5 tub. unit/0.1 mL intradermal injection solution 0.1 mL Intradermal 1 time For PPD Step 1 GIVE on Day 1 and read results Day 3 0.1 mL 11/16 Inactiv e 2023 46148 61451 1 1 time Intrad ermal False DISCONTINUE as of 11/14/2023: Tubersol 5 tub. unit/0.1 mL intradermal injection solution [Tuberculin PPD] 11/13 Inactiv e 2023 21425 80320 0 Tubersol 5 tub. unit/0.1 mL intradermal injection solution 0.1mL Intradermal 1 time For PPD 2nd Step Give 2nd Step PPD Day 1 and Read results Day 3 (schedule 7 days after 1st READ) 0.1mL 11/25 Active 2023 82105 55847 1 1 time Intrad ermal False Tylenol 325 mg tablet 2 tabs By Mouth Every 4 hours as needed For Pain DO NOT EXCEED 3000 MG APAP/24 Hours 2 tabs 202300 /0000 Active 2023 01574 67127 0 Every 4 hours as needed By Mouth False Tylenol 325 mg tablet 2 tabs By Mouth Every 4 hours as needed For Fever >100 DO NOT EXCEED 3000 MG APAP/24 Hours 2 tabs 202300 /0000 Active 2023 37939 39877 0 Every 4 hours as needed By Mouth False Dulcolax (bisacodyl) 10 mg rectal suppository One Suppository per rectum PRN if Milk of Magnisia ineffective. Give on day 5 of no BM 1 sup 2023 Active 2023 49959 20809 1 Daily as needed Rectal False Fleet Enema 19 gram-7 gram/118 mL Administer per rectum PRN one time if dulcolax suppository not effective. Give on day 6 of no BM 1 202300 0000 Active 2023 67230 24720 6 Daily as needed Rectal False Dextrose 50 % in water (D50W) intravenous solution [generic] Dextrose 50% reyes 20-50 ml (slow push) Intravenous if Glucagon not effective after 15 minutes. CALL 911 for ED Evaluation. 50% reyes 202300 /0000 Active 2023 43790 64501 9 Intrav enous False Glucagon (HCl) Emergency Kit 1 mg solution for injection Administer Glucagon 1 mg Intramuscular if 15 minutes after GLucose Gel is administered Glucose remains less than 70 1 mg 2023 Active 2023 75077 45501 2 Intram uscula r False Glucose Gel 40 % oral gel [Dextrose] PRN If resident is unable to swallow (with or without symptoms) and Glucose results less than 70 give GLucose 40% Gel 1 tube orally - Recheck Glucose 15 minutes after administratio n. 1 tube 2023 Active 2023 62104 50175 8 By Mouth False Lorazepam 0.5 mg tablet [generic] 0.5 mg By Mouth Every 8 hours as needed For Anxiety 0.5 mg 2023 Active 2023 27059 23251 0 Every 8 hours as needed By Mouth False Potassium chloride ER 20 mEq tablet,exte nded release [generic] 40 meq By Mouth Once daily For Hypokalemia 40 meq 11/13 Inactiv e 2023 67508 35910 1 Once daily By Mouth False Colesevelam 625 mg tablet [generic] 1250 mg By Mouth Twice daily For TYPE 2 DIABETES MELLITUS WITHOUT COMPLICATIONS 1250 mg 2023 Active 2023 45588 49363 1 Twice daily By Mouth E11.9 False Pioglitazon e 15 mg tablet [generic] 15 mg By Mouth Once daily For TYPE 2 DIABETES MELLITUS WITHOUT COMPLICATIONS 15 mg 11/14 Inactiv e 2023 79282 50341 1 Once daily By Mouth E11.9 False Cholecalcif hardeep (vitamin D3) 50 mcg (2,000 unit) tablet [generic] 50 mcg By Mouth Once daily For Supplement 50 mcg 2023 Active 2023 73556 07705 1 Once daily By Mouth False Colchicine 0.6 mg tablet [generic] 0.6 mg By Mouth Twice daily As Needed For Gout 0.6 mg 2023 Active 2023 94392 24216 4 Twice daily By Mouth False Levothyroxi ne 200 mcg tablet [generic] 200 mcg By Mouth Once daily For Hypothyroidis m 200 mcg 202300 Active 2023 37070 60441 0 Once daily By Mouth False Ondansetron 4 mg disintegrat ing tablet [generic] 4 mg By Mouth Every 6 hours as needed For Nausea 4 mg 11/12 Inactiv e 2023 30914 64918 4 Every 6 hours as needed By Mouth False Docusate sodium 100 mg capsule [generic] 100 mg By Mouth Twice daily For Constipation 100 mg 202300 Active 2023 49509 16571 1 Twice daily By Mouth False Oxycodone 5 mg tablet [generic] 5 mg By Mouth Every 6 hours as needed For Pain 5 mg 11/12 Inactiv e 2023 96638 16046 1 Every 6 hours as needed By Mouth False Oxycodone 5 mg tablet [generic] 5 mg By Mouth Every 6 hours as needed For Pain 5 mg 202300 Active 2023 68339 93888 1 Every 6 hours as needed By Mouth False Milk of Magnesia 400 mg/5 mL oral suspension 30 ml By Mouth one time per day as needed if no BM x 3 days For Constipation 30 ml 202300 /0000 Active 2023 26088 84210 2 By Mouth False Ondansetron 4 mg disintegrat ing tablet [generic] 11/12 Inactiv e 2023 68225 59654 4 Ondansetron 4 mg disintegrat ing tablet [generic] 4 mg By Mouth Every 6 hours as needed For Nausea 4 mg 11/14 Inactiv e 2023 48090 13443 4 Every 6 hours as needed By Mouth False Potassium chloride ER 10 mEq capsule,ext ended release [generic] 40 mEq By Mouth Once daily For hypokalemia 40 mEq 11/17 Inactiv e 2023 83310 25825 1 Once daily By Mouth False Potassium chloride ER 10 mEq capsule,ext ended release [generic] 4 capsules By Mouth At bedtime For hypokalemia 4 capsule s 11/16 Inactiv e 2023 00588 01279 1 At bedtime By Mouth False Flomax 0.4 mg capsule 0.4 mg By Mouth At bedtime For Urinary retention 0.4 mg 2023 Active 2023 22171 98232 1 At bedtime By Mouth False STOOL CULTURE Once daily Obtain stool culture, add C. Diff to routine stool culture For Rule out C. Diff 1x 2023 Active 2023 Once daily Other False Butrans 5 mcg/hour transdermal patch 1 patch Transdermal Every 7 Days For Pain 1 patch 2023 Active 2023 81860 54151 4 Every week Transd ermal False Pantoprazol e 40 mg tablet,nu yed release [generic] 40 mg By Mouth Twice daily For gerd 40 mg 2023 Active 2023 48364 47057 0 Twice daily By Mouth False Scopolamine 1 mg over 3 days transdermal patch [generic] 1 Transdermal Every 72 hours For nausea 1 11/21 Active 2023 32228 36979 4 Every 72 hours Transd ermal False Ondansetron 4 mg disintegrat ing tablet [generic] 11/14 Inactiv e 2023 45044 07437 4 Ondansetron 4 mg disintegrat ing tablet [generic] 4 mg By Mouth Every 8 hours For Nausea 4 mg 2023 Active 2023 33789 99746 4 Every 8 hours By Mouth False Miralax 17 gram oral powder packet 8.5 g (1/2 capful) By Mouth Once daily For constipation 8.5 g 2023 Active 2023 13923 04819 6 Once daily By Mouth False Pioglitazon e 15 mg tablet [generic] 11/14 Inactiv e 2023 44216 74440 1 E11.9 Pioglitazon e 15 mg tablet [generic] 7.5mg ( half a tab) By Mouth Once daily For TYPE 2 DIABETES MELLITUS WITHOUT COMPLICATIONS 7.5mg 2023 Active 2023 18286 55996 1 Once daily By Mouth E11.9 False Mylanta Coat-Cool 1,200 mg-270 mg-80 mg/10 mL oral suspension 10 ml By Mouth Every 8 hours As Needed For heartburn, indigestion, gas 10 ml 2023 Active 2023 02455 1 Every 8 hours By Mouth False Prochlorper azine maleate 5 mg tablet [generic] 5 mg By Mouth Every 8 hours as needed For Nausea 5 mg 2023 Active 2023 43580 41171 1 Every 8 hours as needed By Mouth False Potassium chloride ER 10 mEq capsule,ext ended release [generic] 10 meq By Mouth 4 times a day For Hypokalemia 10 meq 2023 Active 2023 55064 04971 1 4 times a day By Mouth [...] Temperature SpO2 Blood Sugar Pulse Respirations 8 55079 5 75.00 mm[Hg] - Sitting 140.00 mm[Hg] - Sitting 65 NI 98.00 Tympanic 95.00 % 102.00 /min 18.00/min 8 72812 9 92253 918 71344 2 75.00 mm[Hg] - Sitting 140.00 mm[Hg] - Sitting 98.00 Tympanic 102.00 /min 18.00/min 918 07374 3 918 83215 1 72.00 mm[Hg] - Sitting 138.00 mm[Hg] - Sitting 98.40 Tympanic 918 26509 4 88.00/ min 18.00/min 919 77018 4 71.00 mm[Hg] - Sitting 115.00 mm[Hg] - Sitting 98.30 Tympanic 97.00 % 86.00/ min 16.00/min 93749 919 12621 0 71.00 mm[Hg] - Sitting 115.00 mm[Hg] - Sitting 98.30 Tympanic 86.00/ min 16.00/min 69788 919 59848 7 71.00 mm[Hg] - Sitting 115.00 mm[Hg] - Sitting 98.30 Tympanic 86.00/ min 16.00/min 64240 920 31250 6 72.00 mm[Hg] - Sitting 112.00 mm[Hg] - Sitting 98.10 Tympanic 82.00/ min 18.00/min 73550 920 87414 0 75.00 mm[Hg] - Sitting 130.00 mm[Hg] - Sitting 98.40 Forehead Scan 93.00 % 88.00/ min 18.00/min 28068 920 26580 2 75.00 mm[Hg] - Lying Down 130.00 mm[Hg] - Lying Down 98.40 Tympanic 88.00/ min 18.00/min 10594 920 09785 5 75.00 mm[Hg] - Lying Down 130.00 mm[Hg] - Lying Down 98.40 Tympanic 88.00/ min 18.00/min 68541 920 69653 6 199.00 NI 920 87931 3 75.00 mm[Hg] - Sitting 130.00 mm[Hg] - Sitting 98.40 Tympanic 88.00/ min 18.00/min 88867 921 31433 1 71.00 mm[Hg] - Lying Down 119.00 mm[Hg] - Lying Down 98.40 Forehead Scan 96.00 % 83.00/ min 16.00/min 77905 922 84084 6 71.00 mm[Hg] - Lying Down 128.00 mm[Hg] - Lying Down 98.30 Forehead Scan 94.00 % 84.00/ min 18.00/min 38243 923 25460 4 63.00 mm[Hg] - Sitting 105.00 mm[Hg] - Sitting 98.20 Tympanic 93.00 % 93.00/ min 18.00/min
--- OUTSIDE RECORDS SUMMARY | 2023-12-13 23:59 | External Medical Summary | Continuity Of Care Document ---
Author Name Unknown Address [address] [place] [address] Organization [facility] [place] () Care Team Providers Care President + Publisher Name Role Phone DO Parson Amy Primary Care Provider [phone] Allergies Allergy Reaction Start Date End Date [...] 3 0.1 mL 11/13 Inactiv e 2023 41909 76506 0 1 time Intrad ermal False Tubersol 5 tub. unit/0.1 mL intradermal injection solution [Tuberculin PPD] 0.1mL Intradermal 1 time For PPD 2nd Step Give 2nd Step PPD Day 1 and Read results Day 3 (schedule 7 days after 1st READ) 0.1mL 11/13 Inactiv e 2023 09014 19788 0 1 time Intrad ermal False DISCONTINUE as of 11/14/2023: Tubersol 5 tub. unit/0.1 mL intradermal injection solution [Tuberculin PPD] 11/13 Inactiv e 2023 91288 38218 0 Tubersol 5 tub. unit/0.1 mL intradermal injection solution 0.1 mL Intradermal 1 time For PPD Step 1 GIVE on Day 1 and read results Day 3 0.1 mL 11/16 Inactiv e 2023 70273 00667 1 1 time Intrad ermal False DISCONTINUE as of 11/14/2023: Tubersol 5 tub. unit/0.1 mL intradermal injection solution [Tuberculin PPD] 11/13 Inactiv e 2023 95188 86464 0 Tubersol 5 tub. unit/0.1 mL intradermal injection solution 0.1mL Intradermal 1 time For PPD 2nd Step Give 2nd Step PPD Day 1 and Read results Day 3 (schedule 7 days after 1st READ) 0.1mL 11/25 Active 2023 74272 97481 1 1 time Intrad ermal False Tylenol 325 mg tablet 2 tabs By Mouth Every 4 hours as needed For Pain DO NOT EXCEED 3000 MG APAP/24 Hours 2 tabs 202300 /0000 Active 2023 47400 43819 0 Every 4 hours as needed By Mouth False Tylenol 325 mg tablet 2 tabs By Mouth Every 4 hours as needed For Fever >100 DO NOT EXCEED 3000 MG APAP/24 Hours 2 tabs 202300 /0000 Active 2023 33115 14300 0 Every 4 hours as needed By Mouth False Dulcolax (bisacodyl) 10 mg rectal suppository One Suppository per rectum PRN if Milk of Magnisia ineffective. Give on day 5 of no BM 1 sup 2023 Active 2023 22877 07475 1 Daily as needed Rectal False Fleet Enema 19 gram-7 gram/118 mL Administer per rectum PRN one time if dulcolax suppository not effective. Give on day 6 of no BM 1 202300 0000 Active 2023 44438 95455 6 Daily as needed Rectal False Dextrose 50 % in water (D50W) intravenous solution [generic] Dextrose 50% reyes 20-50 ml (slow push) Intravenous if Glucagon not effective after 15 minutes. CALL 911 for ED Evaluation. 50% reyes 202300 /0000 Active 2023 92629 80127 9 Intrav enous False Glucagon (HCl) Emergency Kit 1 mg solution for injection Administer Glucagon 1 mg Intramuscular if 15 minutes after GLucose Gel is administered Glucose remains less than 70 1 mg 2023 Active 2023 17104 34589 2 Intram uscula r False Glucose Gel 40 % oral gel [Dextrose] PRN If resident is unable to swallow (with or without symptoms) and Glucose results less than 70 give GLucose 40% Gel 1 tube orally - Recheck Glucose 15 minutes after administratio n. 1 tube 2023 Active 2023 75517 40632 8 By Mouth False Lorazepam 0.5 mg tablet [generic] 0.5 mg By Mouth Every 8 hours as needed For Anxiety 0.5 mg 11/18 Inactiv e 2023 04215 95855 0 Every 8 hours as needed By Mouth False Potassium chloride ER 20 mEq tablet,exte nded release [generic] 40 meq By Mouth Once daily For Hypokalemia 40 meq 11/13 Inactiv e 2023 71288 74581 1 Once daily By Mouth False Colesevelam 625 mg tablet [generic] 1250 mg By Mouth Twice daily For TYPE 2 DIABETES MELLITUS WITHOUT COMPLICATIONS 1250 mg 2023 Active 2023 11402 12812 1 Twice daily By Mouth E11.9 False Pioglitazon e 15 mg tablet [generic] 15 mg By Mouth Once daily For TYPE 2 DIABETES MELLITUS WITHOUT COMPLICATIONS 15 mg 11/14 Inactiv e 2023 12584 92466 1 Once daily By Mouth E11.9 False Cholecalcif hardeep (vitamin D3) 50 mcg (2,000 unit) tablet [generic] 50 mcg By Mouth Once daily For Supplement 50 mcg 2023 Active 2023 03834 55666 1 Once daily By Mouth False Colchicine 0.6 mg tablet [generic] 0.6 mg By Mouth Twice daily As Needed For Gout 0.6 mg 2023 Active 2023 24188 72091 4 Twice daily By Mouth False Levothyroxi ne 200 mcg tablet [generic] 200 mcg By Mouth Once daily For Hypothyroidis m 200 mcg 2023 0000 0000 Active 2023 36061 74091 0 Once daily By Mouth False Ondansetron 4 mg disintegrat ing tablet [generic] 4 mg By Mouth Every 6 hours as needed For Nausea 4 mg 11/12 Inactiv e 2023 32240 12031 4 Every 6 hours as needed By Mouth False Docusate sodium 100 mg capsule [generic] 100 mg By Mouth Twice daily For Constipation 100 mg 202300 Active 2023 71336 90734 1 Twice daily By Mouth False Oxycodone 5 mg tablet [generic] 5 mg By Mouth Every 6 hours as needed For Pain 5 mg 11/12 Inactiv e 2023 44755 63761 1 Every 6 hours as needed By Mouth False Oxycodone 5 mg tablet [generic] 5 mg By Mouth Every 6 hours as needed For Pain 5 mg 11/18 Inactiv e 2023 63765 75898 1 Every 6 hours as needed By Mouth False Milk of Magnesia 400 mg/5 mL oral suspension 30 ml By Mouth one time per day as needed if no BM x 3 days For Constipation 30 ml 202300 Active 2023 81957 44675 2 By Mouth False Ondansetron 4 mg disintegrat ing tablet [generic] 11/12 Inactiv e 2023 22298 32175 4 Ondansetron 4 mg disintegrat ing tablet [generic] 4 mg By Mouth Every 6 hours as needed For Nausea 4 mg 11/14 Inactiv e 2023 94480 74227 4 Every 6 hours as needed By Mouth False Potassium chloride ER 10 mEq capsule,ext ended release [generic] 40 mEq By Mouth Once daily For hypokalemia 40 mEq 11/17 Inactiv e 2023 43209 91373 1 Once daily By Mouth False Potassium chloride ER 10 mEq capsule,ext ended release [generic] 4 capsules By Mouth At bedtime For hypokalemia 4 capsule s 11/16 Inactiv e 2023 78686 44186 1 At bedtime By Mouth False Flomax 0.4 mg capsule 0.4 mg By Mouth At bedtime For Urinary retention 0.4 mg 11/18 Inactiv e 2023 16651 09843 1 At bedtime By Mouth False STOOL CULTURE Once daily Obtain stool culture, add C. Diff to routine stool culture For Rule out C. Diff 1x 2023 Active 2023 Once daily Other False Butrans 5 mcg/hour transdermal patch 1 patch Transdermal Every 7 Days For Pain 1 patch 2023 Active 2023 50117 81393 4 Every week Transd ermal False Pantoprazol e 40 mg tablet,nu yed release [generic] 40 mg By Mouth Twice daily For gerd 40 mg 2023 Active 2023 04801 06495 0 Twice daily By Mouth False Scopolamine 1 mg over 3 days transdermal patch [generic] 1 Transdermal Every 72 hours For nausea 1 11/21 Active 2023 86754 81395 4 Every 72 hours Transd ermal False Ondansetron 4 mg disintegrat ing tablet [generic] 11/14 Inactiv e 2023 91579 24996 4 Ondansetron 4 mg disintegrat ing tablet [generic] 4 mg By Mouth Every 8 hours For Nausea 4 mg 2023 Active 2023 28196 17234 4 Every 8 hours By Mouth False Miralax 17 gram oral powder packet 8.5 g (1/2 capful) By Mouth Once daily For constipation 8.5 g 11/18 Inactiv e 2023 02420 90294 6 Once daily By Mouth False Pioglitazon e 15 mg tablet [generic] 11/14 Inactiv e 2023 00050 55804 1 E11.9 Pioglitazon e 15 mg tablet [generic] 7.5mg ( half a tab) By Mouth Once daily For TYPE 2 DIABETES MELLITUS WITHOUT COMPLICATIONS 7.5mg 2023 Active 2023 03239 20932 1 Once daily By Mouth E11.9 False Mylanta Coat-Cool 1,200 mg-270 mg-80 mg/10 mL oral suspension 10 ml By Mouth Every 8 hours As Needed For heartburn, indigestion, gas 10 ml 2023 Active 2023 06826 51265 1 Every 8 hours By Mouth False Prochlorper azine maleate 5 mg tablet [generic] 5 mg By Mouth Every 8 hours as needed For Nausea 5 mg 2023 Active 2023 35174 24684 1 Every 8 hours as needed By Mouth False Potassium chloride ER 10 mEq capsule,ext ended release [generic] 10 meq By Mouth 4 times a day For Hypokalemia 10 meq 2023 Active 2023 55236 76181 1 4 times a day By Mouth False Lorazepam 0.5 mg tablet [generic] 11/18 Inactiv e 2023 77389 27787 0 Lorazepam 0.5 mg tablet [generic] 0.5 mg By Mouth Every 8 hours as needed For Anxiety 0.5 mg 12/18 Active 2023 92787 48402 0 Every 8 hours as needed By Mouth False Flomax 0.4 mg capsule 11/18 Inactiv e 2023 42511 79851 1 Flomax 0.4 mg capsule 0.4 mg By Mouth Once daily For Urinary retention 0.4 mg 2023 Active 2023 80417 84884 1 Once daily By Mouth False Oxycodone 5 mg tablet [generic] 11/18 Inactiv e 2023 43426 34825 1 Oxycodone 5 mg tablet [generic] 5 mg By Mouth Every 6 hours as needed For Back Pain 5 mg 2023 Active 2023 30991 32238 1 Every 6 hours as needed By Mouth False Cipro 250 mg tablet 250 mg By Mouth Twice daily For UTI 250 mg 2023 Active 2023 95012 71878 1 Twice daily By Mouth False Senna 8.6 mg tablet 17.2 mg By Mouth Twice daily For Constipation 17.2 mg 2023 Active 2023 74377 08100 1 Twice daily By Mouth False Zyprexa 2.5 mg tablet 2.5 mg By Mouth At bedtime For persistent nausea 2.5 mg 2023 Active 20232 90471 0 At bedtime By Mouth False Problems [...] Temperature SpO2 Blood Sugar Pulse Respirations 8 83898 5 75.00 mm[Hg] - Sitting 140.00 mm[Hg] - Sitting 65 NI 98.00 Tympanic 95.00 % 102.00 /min 18.00/min 16595 918 75246 9 918 75457 2 75.00 mm[Hg] - Sitting 140.00 mm[Hg] - Sitting 98.00 Tympanic 102.00 /min 18.00/min 64964 918 75922 3 23218 918 31258 1 72.00 mm[Hg] - Sitting 138.00 mm[Hg] - Sitting 98.40 Tympanic 918 32139 4 88.00/ min 18.00/min 03562 919 98342 4 71.00 mm[Hg] - Sitting 115.00 mm[Hg] - Sitting 98.30 Tympanic 97.00 % 86.00/ min 16.00/min 24871 919 01546 0 71.00 mm[Hg] - Sitting 115.00 mm[Hg] - Sitting 98.30 Tympanic 86.00/ min 16.00/min 45548 919 86460 7 71.00 mm[Hg] - Sitting 115.00 mm[Hg] - Sitting 98.30 Tympanic 86.00/ min 16.00/min 08686 920 58065 6 72.00 mm[Hg] - Sitting 112.00 mm[Hg] - Sitting 98.10 Tympanic 82.00/ min 18.00/min 11230 920 77011 0 75.00 mm[Hg] - Sitting 130.00 mm[Hg] - Sitting 98.40 Forehead Scan 93.00 % 88.00/ min 18.00/min 43586 920 83213 2 75.00 mm[Hg] - Lying Down 130.00 mm[Hg] - Lying Down 98.40 Tympanic 88.00/ min 18.00/min 43836 920 16446 5 75.00 mm[Hg] - Lying Down 130.00 mm[Hg] - Lying Down 98.40 Tympanic 88.00/ min 18.00/min 11760 920 64068 6 199.00 NI [address] 920 84296 3 75.00 mm[Hg] - Sitting 130.00 mm[Hg] - Sitting 98.40 Tympanic 88.00/ min 18.00/min 28809 921 23908 1 71.00 mm[Hg] - Lying Down 119.00 mm[Hg] - Lying Down 98.40 Forehead Scan 96.00 % 83.00/ min 16.00/min 922 00672 6 71.00 mm[Hg] - Lying Down 128.00 mm[Hg] - Lying Down 98.30 Forehead Scan 94.00 % 84.00/ min 18.00/min 923 14968 4 63.00 mm[Hg] - Sitting 105.00 mm[Hg] - Sitting 98.20 Tympanic 93.00 % 93.00/ min 18.00/min
--- OUTSIDE RECORDS SUMMARY | 2023-12-14 | External Medical Summary | Continuity Of Care Document ---
Author Name Unknown Address [address] [place] [address] [facility] () Care Team Providers Care Digester Cook Name Role Phone DO Parson Amy Primary Care Provider [phone] Allergies Allergy Reaction Start Date End Date [...] 3 0.1 mL 11/13 Inactiv e 2023 55875 93961 0 1 time Intrad ermal False Tubersol 5 tub. unit/0.1 mL intradermal injection solution [Tuberculin PPD] 0.1mL Intradermal 1 time For PPD 2nd Step Give 2nd Step PPD Day 1 and Read results Day 3 (schedule 7 days after 1st READ) 0.1mL 11/13 Inactiv e 2023 09257 62071 0 1 time Intrad ermal False DISCONTINUE as of 11/14/2023: Tubersol 5 tub. unit/0.1 mL intradermal injection solution [Tuberculin PPD] 11/13 Inactiv e 2023 08352 36429 0 Tubersol 5 tub. unit/0.1 mL intradermal injection solution 0.1 mL Intradermal 1 time For PPD Step 1 GIVE on Day 1 and read results Day 3 0.1 mL 11/16 Inactiv e 2023 24983 98729 1 1 time Intrad ermal False DISCONTINUE as of 11/14/2023: Tubersol 5 tub. unit/0.1 mL intradermal injection solution [Tuberculin PPD] 11/13 Inactiv e 2023 13314 54166 0 Tubersol 5 tub. unit/0.1 mL intradermal injection solution 0.1mL Intradermal 1 time For PPD 2nd Step Give 2nd Step PPD Day 1 and Read results Day 3 (schedule 7 days after 1st READ) 0.1mL 11/25 Active 2023 72054 19407 1 1 time Intrad ermal False Tylenol 325 mg tablet 2 tabs By Mouth Every 4 hours as needed For Pain DO NOT EXCEED 3000 MG APAP/24 Hours 2 tabs 202300 /0000 Active 2023 25985 66916 0 Every 4 hours as needed By Mouth False Tylenol 325 mg tablet 2 tabs By Mouth Every 4 hours as needed For Fever >100 DO NOT EXCEED 3000 MG APAP/24 Hours 2 tabs 202300 /0000 Active 2023 65938 38276 0 Every 4 hours as needed By Mouth False Dulcolax (bisacodyl) 10 mg rectal suppository One Suppository per rectum PRN if Milk of Magnisia ineffective. Give on day 5 of no BM 1 sup 2023 Active 2023 40404 18006 1 Daily as needed Rectal False Fleet Enema 19 gram-7 gram/118 mL Administer per rectum PRN one time if dulcolax suppository not effective. Give on day 6 of no BM 1 202300 0000 Active 2023 47672 80460 6 Daily as needed Rectal False Dextrose 50 % in water (D50W) intravenous solution [generic] Dextrose 50% reyes 20-50 ml (slow push) Intravenous if Glucagon not effective after 15 minutes. CALL 911 for ED Evaluation. 50% reyes 202300 /0000 Active 2023 49224 38352 9 Intrav enous False Glucagon (HCl) Emergency Kit 1 mg solution for injection Administer Glucagon 1 mg Intramuscular if 15 minutes after GLucose Gel is administered Glucose remains less than 70 1 mg 2023 Active 2023 36967 53544 2 Intram uscula r False Glucose Gel 40 % oral gel [Dextrose] PRN If resident is unable to swallow (with or without symptoms) and Glucose results less than 70 give GLucose 40% Gel 1 tube orally - Recheck Glucose 15 minutes after administratio n. 1 tube 2023 Active 2023 25911 57403 8 By Mouth False Lorazepam 0.5 mg tablet [generic] 0.5 mg By Mouth Every 8 hours as needed For Anxiety 0.5 mg 2023 Active 2023 28652 40926 0 Every 8 hours as needed By Mouth False Potassium chloride ER 20 mEq tablet,exte nded release [generic] 40 meq By Mouth Once daily For Hypokalemia 40 meq 11/13 Inactiv e 2023 87844 70755 1 Once daily By Mouth False Colesevelam 625 mg tablet [generic] 1250 mg By Mouth Twice daily For TYPE 2 DIABETES MELLITUS WITHOUT COMPLICATIONS 1250 mg 2023 Active 2023 49675 54284 1 Twice daily By Mouth E11.9 False Pioglitazon e 15 mg tablet [generic] 15 mg By Mouth Once daily For TYPE 2 DIABETES MELLITUS WITHOUT COMPLICATIONS 15 mg 11/14 Inactiv e 2023 64938 38060 1 Once daily By Mouth E11.9 False Cholecalcif hardeep (vitamin D3) 50 mcg (2,000 unit) tablet [generic] 50 mcg By Mouth Once daily For Supplement 50 mcg 2023 Active 2023 59538 66758 1 Once daily By Mouth False Colchicine 0.6 mg tablet [generic] 0.6 mg By Mouth Twice daily As Needed For Gout 0.6 mg 2023 Active 2023 95472 32350 4 Twice daily By Mouth False Levothyroxi ne 200 mcg tablet [generic] 200 mcg By Mouth Once daily For Hypothyroidis m 200 mcg 2023 Active 2023 52415 79384 0 Once daily By Mouth False Ondansetron 4 mg disintegrat ing tablet [generic] 4 mg By Mouth Every 6 hours as needed For Nausea 4 mg 11/12 Inactiv e 2023 43654 06696 4 Every 6 hours as needed By Mouth False Docusate sodium 100 mg capsule [generic] 100 mg By Mouth Twice daily For Constipation 100 mg 2023 Active 2023 01775 89953 1 Twice daily By Mouth False Oxycodone 5 mg tablet [generic] 5 mg By Mouth Every 6 hours as needed For Pain 5 mg 11/12 Inactiv e 2023 83985 93140 1 Every 6 hours as needed By Mouth False Oxycodone 5 mg tablet [generic] 5 mg By Mouth Every 6 hours as needed For Pain 5 mg 2023 Active 2023 99844 78303 1 Every 6 hours as needed By Mouth False Milk of Magnesia 400 mg/5 mL oral suspension 30 ml By Mouth one time per day as needed if no BM x 3 days For Constipation 30 ml 2023 Active 2023 57000 74257 2 By Mouth False Ondansetron 4 mg disintegrat ing tablet [generic] 11/12 Inactiv e 2023 78962 72612 4 Ondansetron 4 mg disintegrat ing tablet [generic] 4 mg By Mouth Every 6 hours as needed For Nausea 4 mg 11/14 Inactiv e 2023 37607 19309 4 Every 6 hours as needed By Mouth False Potassium chloride ER 10 mEq capsule,ext ended release [generic] 40 mEq By Mouth Once daily For hypokalemia 40 mEq 202300 Active 2023 55639 05690 1 Once daily By Mouth False Potassium chloride ER 10 mEq capsule,ext ended release [generic] 4 capsules By Mouth At bedtime For hypokalemia 4 capsule s 11/16 Inactiv e 2023 10814 86386 1 At bedtime By Mouth False Flomax 0.4 mg capsule 0.4 mg By Mouth At bedtime For Urinary retention 0.4 mg 2023 Active 2023 95230 78580 1 At bedtime By Mouth False STOOL CULTURE Once daily Obtain stool culture, add C. Diff to routine stool culture For Rule out C. Diff 1x 2023 Active 2023 Once daily Other False Butrans 5 mcg/hour transdermal patch 1 patch Transdermal Every 7 Days For Pain 1 patch 2023 Active 2023 41329 51124 4 Every week Transd ermal False Pantoprazol e 40 mg tablet,nu yed release [generic] 40 mg By Mouth Twice daily For gerd 40 mg 2023 Active 2023 10833 30339 0 Twice daily By Mouth False Scopolamine 1 mg over 3 days transdermal patch [generic] 1 Transdermal Every 72 hours For nausea 1 11/21 Active 2023 36030 88254 4 Every 72 hours Transd ermal False Ondansetron 4 mg disintegrat ing tablet [generic] 11/14 Inactiv e 2023 06437 42689 4 Ondansetron 4 mg disintegrat ing tablet [generic] 4 mg By Mouth Every 8 hours For Nausea 4 mg 2023 Active 2023 45798 34099 4 Every 8 hours By Mouth False Miralax 17 gram oral powder packet 8.5 g (1/2 capful) By Mouth Once daily For constipation 8.5 g 2023 Active 2023 98787 49381 6 Once daily By Mouth False Pioglitazon e 15 mg tablet [generic] 11/14 Inactiv e 2023 50606 45078 1 E11.9 Pioglitazon e 15 mg tablet [generic] 7.5mg ( half a tab) By Mouth Once daily For TYPE 2 DIABETES MELLITUS WITHOUT COMPLICATIONS 7.5mg 2023 Active 2023 64869 31014 1 Once daily By Mouth E11.9 False [...] weight Temperature SpO2 Blood Sugar Pulse Respirations 23971 5 75.00 mm[Hg] - Sitting 140.00 mm[Hg] - Sitting 65 NI 98.00 Tympanic 95.00 % 102.00 /min 18.00/min 8 47538 9 24833 2 75.00 mm[Hg] - Sitting 140.00 mm[Hg] - Sitting 98.00 Tympanic 102.00 /min 18.00/min 8 75370 3 91113 918 91883 1 72.00 mm[Hg] - Sitting 138.00 mm[Hg] - Sitting 98.40 Tympanic 99978 918 89290 4 88.00/ min 18.00/min 35536 919 85645 4 71.00 mm[Hg] - Sitting 115.00 mm[Hg] - Sitting 98.30 Tympanic 97.00 % 86.00/ min 16.00/min 30268 919 76013 0 71.00 mm[Hg] - Sitting 115.00 mm[Hg] - Sitting 98.30 Tympanic 86.00/ min 16.00/min 65755 919 40470 7 71.00 mm[Hg] - Sitting 115.00 mm[Hg] - Sitting 98.30 Tympanic 86.00/ min 16.00/min 87326 920 59916 6 72.00 mm[Hg] - Sitting 112.00 mm[Hg] - Sitting 98.10 Tympanic 82.00/ min 18.00/min 98606 920 69583 0 75.00 mm[Hg] - Sitting 130.00 mm[Hg] - Sitting 98.40 Forehead Scan 93.00 % 88.00/ min 18.00/min 66689 920 62413 2 75.00 mm[Hg] - Lying Down 130.00 mm[Hg] - Lying Down 98.40 Tympanic 88.00/ min 18.00/min 08553 920 63645 5 75.00 mm[Hg] - Lying Down 130.00 mm[Hg] - Lying Down 98.40 Tympanic 88.00/ min 18.00/min 17050 920 39986 6 199.00 NI 41668 920 02200 3 75.00 mm[Hg] - Sitting 130.00 mm[Hg] - Sitting 98.40 Tympanic 88.00/ min 18.00/min 98194 921 95617 1 71.00 mm[Hg] - Lying Down 119.00 mm[Hg] - Lying Down 98.40 Forehead Scan 96.00 % 83.00/ min 16.00/min
--- OUTSIDE RECORDS SUMMARY | 2023-12-14 | External Medical Summary | Continuity Of Care Document ---
Author Name Unknown Address [address] [place] [address] Organization [facility][note 3] [place] () Care Team Providers Care Division Controller Name Role Phone DO Parson Amy Primary Care Provider [phone] Allergies Allergy Reaction Start Date End Date [...] 3 0.1 mL 11/13 Inactiv e 2023 07600 16543 0 1 time Intrad ermal False Tubersol 5 tub. unit/0.1 mL intradermal injection solution [Tuberculin PPD] 0.1mL Intradermal 1 time For PPD 2nd Step Give 2nd Step PPD Day 1 and Read results Day 3 (schedule 7 days after 1st READ) 0.1mL 11/13 Inactiv e 2023 46887 78060 0 1 time Intrad ermal False DISCONTINUE as of 11/14/2023: Tubersol 5 tub. unit/0.1 mL intradermal injection solution [Tuberculin PPD] 11/13 Inactiv e 2023 68224 87200 0 Tubersol 5 tub. unit/0.1 mL intradermal injection solution 0.1 mL Intradermal 1 time For PPD Step 1 GIVE on Day 1 and read results Day 3 0.1 mL 11/16 Inactiv e 2023 49893 57125 1 1 time Intrad ermal False DISCONTINUE as of 11/14/2023: Tubersol 5 tub. unit/0.1 mL intradermal injection solution [Tuberculin PPD] 11/13 Inactiv e 2023 94694 73543 0 Tubersol 5 tub. unit/0.1 mL intradermal injection solution 0.1mL Intradermal 1 time For PPD 2nd Step Give 2nd Step PPD Day 1 and Read results Day 3 (schedule 7 days after 1st READ) 0.1mL 11/25 Active 2023 76138 60452 1 1 time Intrad ermal False Tylenol 325 mg tablet 2 tabs By Mouth Every 4 hours as needed For Pain DO NOT EXCEED 3000 MG APAP/24 Hours 2 tabs 202300 /0000 Active 2023 88537 04438 0 Every 4 hours as needed By Mouth False Tylenol 325 mg tablet 2 tabs By Mouth Every 4 hours as needed For Fever >100 DO NOT EXCEED 3000 MG APAP/24 Hours 2 tabs 202300 /0000 Active 2023 33592 41425 0 Every 4 hours as needed By Mouth False Dulcolax (bisacodyl) 10 mg rectal suppository One Suppository per rectum PRN if Milk of Magnisia ineffective. Give on day 5 of no BM 1 sup 2023 Active 2023 94239 27958 1 Daily as needed Rectal False Fleet Enema 19 gram-7 gram/118 mL Administer per rectum PRN one time if dulcolax suppository not effective. Give on day 6 of no BM 1 202300 0000 Active 2023 48642 77504 6 Daily as needed Rectal False Dextrose 50 % in water (D50W) intravenous solution [generic] Dextrose 50% reyes 20-50 ml (slow push) Intravenous if Glucagon not effective after 15 minutes. CALL 911 for ED Evaluation. 50% reyes 202300 /0000 Active 2023 69016 17629 9 Intrav enous False Glucagon (HCl) Emergency Kit 1 mg solution for injection Administer Glucagon 1 mg Intramuscular if 15 minutes after GLucose Gel is administered Glucose remains less than 70 1 mg 2023 Active 2023 26658 62380 2 Intram uscula r False Glucose Gel 40 % oral gel [Dextrose] PRN If resident is unable to swallow (with or without symptoms) and Glucose results less than 70 give GLucose 40% Gel 1 tube orally - Recheck Glucose 15 minutes after administratio n. 1 tube 2023 Active 2023 89625 82318 8 By Mouth False Lorazepam 0.5 mg tablet [generic] 0.5 mg By Mouth Every 8 hours as needed For Anxiety 0.5 mg 2023 Active 2023 64634 66584 0 Every 8 hours as needed By Mouth False Potassium chloride ER 20 mEq tablet,exte nded release [generic] 40 meq By Mouth Once daily For Hypokalemia 40 meq 11/13 Inactiv e 2023 42567 48223 1 Once daily By Mouth False Colesevelam 625 mg tablet [generic] 1250 mg By Mouth Twice daily For TYPE 2 DIABETES MELLITUS WITHOUT COMPLICATIONS 1250 mg 2023 Active 2023 29211 03227 1 Twice daily By Mouth E11.9 False Pioglitazon e 15 mg tablet [generic] 15 mg By Mouth Once daily For TYPE 2 DIABETES MELLITUS WITHOUT COMPLICATIONS 15 mg 11/14 Inactiv e 2023 61090 41876 1 Once daily By Mouth E11.9 False Cholecalcif hardeep (vitamin D3) 50 mcg (2,000 unit) tablet [generic] 50 mcg By Mouth Once daily For Supplement 50 mcg 2023 Active 2023 92251 52192 1 Once daily By Mouth False Colchicine 0.6 mg tablet [generic] 0.6 mg By Mouth Twice daily As Needed For Gout 0.6 mg 2023 Active 2023 82786 78624 4 Twice daily By Mouth False Levothyroxi ne 200 mcg tablet [generic] 200 mcg By Mouth Once daily For Hypothyroidis m 200 mcg 2023 Active 2023 24099 41881 0 Once daily By Mouth False Ondansetron 4 mg disintegrat ing tablet [generic] 4 mg By Mouth Every 6 hours as needed For Nausea 4 mg 11/12 Inactiv e 2023 19319 78269 4 Every 6 hours as needed By Mouth False Docusate sodium 100 mg capsule [generic] 100 mg By Mouth Twice daily For Constipation 100 mg 2023 Active 2023 99918 14878 1 Twice daily By Mouth False Oxycodone 5 mg tablet [generic] 5 mg By Mouth Every 6 hours as needed For Pain 5 mg 11/12 Inactiv e 2023 19462 58681 1 Every 6 hours as needed By Mouth False Oxycodone 5 mg tablet [generic] 5 mg By Mouth Every 6 hours as needed For Pain 5 mg 2023 Active 2023 10477 70206 1 Every 6 hours as needed By Mouth False Milk of Magnesia 400 mg/5 mL oral suspension 30 ml By Mouth one time per day as needed if no BM x 3 days For Constipation 30 ml 2023 Active 2023 12191 85416 2 By Mouth False Ondansetron 4 mg disintegrat ing tablet [generic] 11/12 Inactiv e 2023 63465 93711 4 Ondansetron 4 mg disintegrat ing tablet [generic] 4 mg By Mouth Every 6 hours as needed For Nausea 4 mg 11/14 Inactiv e 2023 19283 98763 4 Every 6 hours as needed By Mouth False Potassium chloride ER 10 mEq capsule,ext ended release [generic] 40 mEq By Mouth Once daily For hypokalemia 40 mEq 202300 Active 2023 17971 04190 1 Once daily By Mouth False Potassium chloride ER 10 mEq capsule,ext ended release [generic] 4 capsules By Mouth At bedtime For hypokalemia 4 capsule s 11/16 Inactiv e 2023 01905 94347 1 At bedtime By Mouth False Flomax 0.4 mg capsule 0.4 mg By Mouth At bedtime For Urinary retention 0.4 mg 2023 Active 2023 66207 36795 1 At bedtime By Mouth False STOOL CULTURE Once daily Obtain stool culture, add C. Diff to routine stool culture For Rule out C. Diff 1x 2023 Active 2023 Once daily Other False Butrans 5 mcg/hour transdermal patch 1 patch Transdermal Every 7 Days For Pain 1 patch 2023 Active 2023 77175 86093 4 Every week Transd ermal False Pantoprazol e 40 mg tablet,nu yed release [generic] 40 mg By Mouth Twice daily For gerd 40 mg 2023 Active 2023 23619 95221 0 Twice daily By Mouth False Scopolamine 1 mg over 3 days transdermal patch [generic] 1 Transdermal Every 72 hours For nausea 1 11/21 Active 2023 57436 86706 4 Every 72 hours Transd ermal False Ondansetron 4 mg disintegrat ing tablet [generic] 11/14 Inactiv e 2023 32220 13334 4 Ondansetron 4 mg disintegrat ing tablet [generic] 4 mg By Mouth Every 8 hours For Nausea 4 mg 2023 Active 2023 81782 80152 4 Every 8 hours By Mouth False Miralax 17 gram oral powder packet 8.5 g (1/2 capful) By Mouth Once daily For constipation 8.5 g 2023 Active 2023 13901 04464 6 Once daily By Mouth False Pioglitazon e 15 mg tablet [generic] 11/14 Inactiv e 2023 07278 82774 1 E11.9 Pioglitazon e 15 mg tablet [generic] 7.5mg ( half a tab) By Mouth Once daily For TYPE 2 DIABETES MELLITUS WITHOUT COMPLICATIONS 7.5mg 2023 Active 2023 73793 81483 1 Once daily By Mouth E11.9 False [...] weight Temperature SpO2 Blood Sugar Pulse Respirations 20015 918 23469 5 75.00 mm[Hg] - Sitting 140.00 mm[Hg] - Sitting 65 NI 98.00 Tympanic 95.00 % 102.00 /min 18.00/min 78070 918 66754 9 87715 918 93728 2 75.00 mm[Hg] - Sitting 140.00 mm[Hg] - Sitting 98.00 Tympanic 102.00 /min 18.00/min 07056 918 76144 3 78874 918 43465 1 72.00 mm[Hg] - Sitting 138.00 mm[Hg] - Sitting 98.40 Tympanic 93458 918 43301 4 88.00/ min 18.00/min 27999 919 57058 4 71.00 mm[Hg] - Sitting 115.00 mm[Hg] - Sitting 98.30 Tympanic 97.00 % 86.00/ min 16.00/min 31560 919 16735 0 71.00 mm[Hg] - Sitting 115.00 mm[Hg] - Sitting 98.30 Tympanic 86.00/ min 16.00/min 14762 919 30728 7 71.00 mm[Hg] - Sitting 115.00 mm[Hg] - Sitting 98.30 Tympanic 86.00/ min 16.00/min 06415 920 00900 6 72.00 mm[Hg] - Sitting 112.00 mm[Hg] - Sitting 98.10 Tympanic 82.00/ min 18.00/min 72119 920 50871 0 75.00 mm[Hg] - Sitting 130.00 mm[Hg] - Sitting 98.40 Forehead Scan 93.00 % 88.00/ min 18.00/min 31689 920 95207 2 75.00 mm[Hg] - Lying Down 130.00 mm[Hg] - Lying Down 98.40 Tympanic 88.00/ min 18.00/min 07940 920 64608 5 75.00 mm[Hg] - Lying Down 130.00 mm[Hg] - Lying Down 98.40 Tympanic 88.00/ min 18.00/min 22052 920 31971 6 199.00 NI [address] 920 47704 3 75.00 mm[Hg] - Sitting 130.00 mm[Hg] - Sitting 98.40 Tympanic 88.00/ min 18.00/min 06573 921 53257 1 71.00 mm[Hg] - Lying Down 119.00 mm[Hg] - Lying Down 98.40 Forehead Scan 96.00 % 83.00/ min 16.00/min 76341 922 76719 6 71.00 mm[Hg] - Lying Down 128.00 mm[Hg] - Lying Down 98.30 Forehead Scan 94.00 % 84.00/ min 18.00/min
--- OUTSIDE RECORDS SUMMARY | 2023-12-14 | External Medical Summary | Continuity Of Care Document ---
Author Name Unknown Address [address] [place] [address] Organization [facility] () Care Team Providers Care Certified Art Therapist Name Role Phone DO Parson Amy Primary Care Provider [phone] Allergies Allergy Reaction Start Date End Date [...] 3 0.1 mL 11/13 Inactiv e 2023 74162 19902 0 1 time Intrad ermal False Tubersol 5 tub. unit/0.1 mL intradermal injection solution [Tuberculin PPD] 0.1mL Intradermal 1 time For PPD 2nd Step Give 2nd Step PPD Day 1 and Read results Day 3 (schedule 7 days after 1st READ) 0.1mL 11/13 Inactiv e 2023 06138 39345 0 1 time Intrad ermal False DISCONTINUE as of 11/14/2023: Tubersol 5 tub. unit/0.1 mL intradermal injection solution [Tuberculin PPD] 11/13 Inactiv e 2023 01534 95424 0 Tubersol 5 tub. unit/0.1 mL intradermal injection solution 0.1 mL Intradermal 1 time For PPD Step 1 GIVE on Day 1 and read results Day 3 0.1 mL 11/16 Active 2023 92382 52728 1 1 time Intrad ermal False DISCONTINUE as of 11/14/2023: Tubersol 5 tub. unit/0.1 mL intradermal injection solution [Tuberculin PPD] 11/13 Inactiv e 2023 59664 83220 0 Tubersol 5 tub. unit/0.1 mL intradermal injection solution 0.1mL Intradermal 1 time For PPD 2nd Step Give 2nd Step PPD Day 1 and Read results Day 3 (schedule 7 days after 1st READ) 0.1mL 11/25 Active 2023 40254 82786 1 1 time Intrad ermal False Tylenol 325 mg tablet 2 tabs By Mouth Every 4 hours as needed For Pain DO NOT EXCEED 3000 MG APAP/24 Hours 2 tabs 2023 Active 2023 01196 40991 0 Every 4 hours as needed By Mouth False Tylenol 325 mg tablet 2 tabs By Mouth Every 4 hours as needed For Fever >100 DO NOT EXCEED 3000 MG APAP/24 Hours 2 tabs 202300 Active 2023 20807 13199 0 Every 4 hours as needed By Mouth False Dulcolax (bisacodyl) 10 mg rectal suppository One Suppository per rectum PRN if Milk of Magnisia ineffective. Give on day 5 of no BM 1 sup 2023 Active 2023 78750 18107 1 Daily as needed Rectal False Fleet Enema 19 gram-7 gram/118 mL Administer per rectum PRN one time if dulcolax suppository not effective. Give on day 6 of no BM 1 202300 Active 2023 75991 36093 6 Daily as needed Rectal False Dextrose 50 % in water (D50W) intravenous solution [generic] Dextrose 50% reyes 20-50 ml (slow push) Intravenous if Glucagon not effective after 15 minutes. CALL 911 for ED Evaluation. 50% reyes 202300 0000 Active 2023 99012 89435 9 Intrav enous False Glucagon (HCl) Emergency Kit 1 mg solution for injection Administer Glucagon 1 mg Intramuscular if 15 minutes after GLucose Gel is administered Glucose remains less than 70 1 mg 2023 Active 2023 02103 67381 2 Intram uscula r False Glucose Gel 40 % oral gel [Dextrose] PRN If resident is unable to swallow (with or without symptoms) and Glucose results less than 70 give GLucose 40% Gel 1 tube orally - Recheck Glucose 15 minutes after administratio n. 1 tube 2023 Active 2023 83084 80401 8 By Mouth False Lorazepam 0.5 mg tablet [generic] 0.5 mg By Mouth Every 8 hours as needed For Anxiety 0.5 mg 2023 Active 2023 63764 90173 0 Every 8 hours as needed By Mouth False Potassium chloride ER 20 mEq tablet,exte nded release [generic] 40 meq By Mouth Once daily For Hypokalemia 40 meq 11/13 Inactiv e 2023 55829 77222 1 Once daily By Mouth False Colesevelam 625 mg tablet [generic] 1250 mg By Mouth Twice daily For TYPE 2 DIABETES MELLITUS WITHOUT COMPLICATIONS 1250 mg 2023 Active 2023 36835 50059 1 Twice daily By Mouth E11.9 False Pioglitazon e 15 mg tablet [generic] 15 mg By Mouth Once daily For TYPE 2 DIABETES MELLITUS WITHOUT COMPLICATIONS 15 mg 2023 Active 2023 38861 26936 1 Once daily By Mouth E11.9 False Cholecalcif hardeep (vitamin D3) 50 mcg (2,000 unit) tablet [generic] 50 mcg By Mouth Once daily For Supplement 50 mcg 2023 Active 2023 94808 03950 1 Once daily By Mouth False Colchicine 0.6 mg tablet [generic] 0.6 mg By Mouth Twice daily As Needed For Gout 0.6 mg 2023 Active 2023 87242 06922 4 Twice daily By Mouth False Levothyroxi ne 200 mcg tablet [generic] 200 mcg By Mouth Once daily For Hypothyroidis m 200 mcg 2023 Active 2023 08862 88043 0 Once daily By Mouth False Ondansetron 4 mg disintegrat ing tablet [generic] 4 mg By Mouth Every 6 hours as needed For Nausea 4 mg 11/12 Inactiv e 2023 09140 06291 4 Every 6 hours as needed By Mouth False Docusate sodium 100 mg capsule [generic] 100 mg By Mouth Twice daily For Constipation 100 mg 2023 Active 2023 16539 12537 1 Twice daily By Mouth False Oxycodone 5 mg tablet [generic] 5 mg By Mouth Every 6 hours as needed For Pain 5 mg 11/12 Inactiv e 2023 81152 04385 1 Every 6 hours as needed By Mouth False Oxycodone 5 mg tablet [generic] 5 mg By Mouth Every 6 hours as needed For Pain 5 mg 2023 Active 2023 25057 48066 1 Every 6 hours as needed By Mouth False Milk of Magnesia 400 mg/5 mL oral suspension 30 ml By Mouth one time per day as needed if no BM x 3 days For Constipation 30 ml 2023 Active 2023 85394 30199 2 By Mouth False Ondansetron 4 mg disintegrat ing tablet [generic] 11/12 Inactiv e 2023 01948 36564 4 Ondansetron 4 mg disintegrat ing tablet [generic] 4 mg By Mouth Every 6 hours as needed For Nausea 4 mg 2023 Active 2023 55441 12652 4 Every 6 hours as needed By Mouth False Potassium chloride ER 10 mEq capsule,ext ended release [generic] 40 mEq By Mouth Once daily For hypokalemia 40 mEq 2023 Active 2023 30999 43014 1 Once daily By Mouth False Potassium chloride ER 10 mEq capsule,ext ended release [generic] 4 capsules By Mouth At bedtime For hypokalemia 4 capsule s 11/16 Active 2023 73991 22320 1 At bedtime By Mouth False Flomax 0.4 mg capsule 0.4 mg By Mouth At bedtime For Urinary retention 0.4 mg 2023 Active 2023 03147 01542 1 At bedtime By Mouth False STOOL CULTURE Once daily Obtain stool culture, add C. Diff to routine stool culture For Rule out C. Diff 1x 2023 Active 2023 Once daily Other False Problems Code Description Start [...] weight Temperature SpO2 Blood Sugar Pulse Respirations 13944 918 17812 5 75.00 mm[Hg] - Sitting 140.00 mm[Hg] - Sitting 65 NI 98.00 Tympanic 95.00 % 102.00 /min 18.00/min 30642 918 82909 9 54376 918 65507 2 75.00 mm[Hg] - Sitting 140.00 mm[Hg] - Sitting 98.00 Tympanic 102.00 /min 18.00/min 60531 918 31023 3 80607 918 96548 1 72.00 mm[Hg] - Sitting 138.00 mm[Hg] - Sitting 98.40 Tympanic 76200 918 18058 4 88.00/ min 18.00/min 28701 919 56765 4 71.00 mm[Hg] - Sitting 115.00 mm[Hg] - Sitting 98.30 Tympanic 97.00 % 86.00/ min 16.00/min 49471 919 91087 0 71.00 mm[Hg] - Sitting 115.00 mm[Hg] - Sitting 98.30 Tympanic 86.00/ min 16.00/min 21459 919 15015 7 71.00 mm[Hg] - Sitting 115.00 mm[Hg] - Sitting 98.30 Tympanic 86.00/ min 16.00/min
--- OUTSIDE RECORDS SUMMARY | 2023-12-14 | External Medical Summary | Continuity Of Care Document ---
Author Name Unknown Address [address] [place] [address] [facility] [place] () Care Team Providers Care Plastic Surgery Manager Name Role Phone DO Parson Amy Primary Care Provider [phone] Allergies Allergy Reaction Start Date End Date [...] 3 0.1 mL 11/13 Inactiv e 2023 90910 57641 0 1 time Intrad ermal False Tubersol 5 tub. unit/0.1 mL intradermal injection solution [Tuberculin PPD] 0.1mL Intradermal 1 time For PPD 2nd Step Give 2nd Step PPD Day 1 and Read results Day 3 (schedule 7 days after 1st READ) 0.1mL 11/13 Inactiv e 2023 36735 30125 0 1 time Intrad ermal False DISCONTINUE as of 11/14/2023: Tubersol 5 tub. unit/0.1 mL intradermal injection solution [Tuberculin PPD] 11/13 Inactiv e 2023 76903 54252 0 Tubersol 5 tub. unit/0.1 mL intradermal injection solution 0.1 mL Intradermal 1 time For PPD Step 1 GIVE on Day 1 and read results Day 3 0.1 mL 11/16 Active 2023 68919 57485 1 1 time Intrad ermal False DISCONTINUE as of 11/14/2023: Tubersol 5 tub. unit/0.1 mL intradermal injection solution [Tuberculin PPD] 11/13 Inactiv e 2023 44938 80208 0 Tubersol 5 tub. unit/0.1 mL intradermal injection solution 0.1mL Intradermal 1 time For PPD 2nd Step Give 2nd Step PPD Day 1 and Read results Day 3 (schedule 7 days after 1st READ) 0.1mL 11/25 Active 2023 22755 55930 1 1 time Intrad ermal False Tylenol 325 mg tablet 2 tabs By Mouth Every 4 hours as needed For Pain DO NOT EXCEED 3000 MG APAP/24 Hours 2 tabs 2023 Active 2023 12161 55565 0 Every 4 hours as needed By Mouth False Tylenol 325 mg tablet 2 tabs By Mouth Every 4 hours as needed For Fever >100 DO NOT EXCEED 3000 MG APAP/24 Hours 2 tabs 202300 Active 2023 97962 60959 0 Every 4 hours as needed By Mouth False Dulcolax (bisacodyl) 10 mg rectal suppository One Suppository per rectum PRN if Milk of Magnisia ineffective. Give on day 5 of no BM 1 sup 2023 Active 2023 63861 41895 1 Daily as needed Rectal False Fleet Enema 19 gram-7 gram/118 mL Administer per rectum PRN one time if dulcolax suppository not effective. Give on day 6 of no BM 1 202300 Active 2023 14546 58710 6 Daily as needed Rectal False Dextrose 50 % in water (D50W) intravenous solution [generic] Dextrose 50% reyes 20-50 ml (slow push) Intravenous if Glucagon not effective after 15 minutes. CALL 911 for ED Evaluation. 50% reyes 202300 0000 Active 2023 99733 80766 9 Intrav enous False Glucagon (HCl) Emergency Kit 1 mg solution for injection Administer Glucagon 1 mg Intramuscular if 15 minutes after GLucose Gel is administered Glucose remains less than 70 1 mg 2023 Active 2023 45802 98860 2 Intram uscula r False Glucose Gel 40 % oral gel [Dextrose] PRN If resident is unable to swallow (with or without symptoms) and Glucose results less than 70 give GLucose 40% Gel 1 tube orally - Recheck Glucose 15 minutes after administratio n. 1 tube 2023 Active 2023 27030 18819 8 By Mouth False Lorazepam 0.5 mg tablet [generic] 0.5 mg By Mouth Every 8 hours as needed For Anxiety 0.5 mg 2023 Active 2023 26993 29770 0 Every 8 hours as needed By Mouth False Potassium chloride ER 20 mEq tablet,exte nded release [generic] 40 meq By Mouth Once daily For Hypokalemia 40 meq 11/13 Inactiv e 2023 37875 82403 1 Once daily By Mouth False Colesevelam 625 mg tablet [generic] 1250 mg By Mouth Twice daily For TYPE 2 DIABETES MELLITUS WITHOUT COMPLICATIONS 1250 mg 2023 Active 2023 07807 88810 1 Twice daily By Mouth E11.9 False Pioglitazon e 15 mg tablet [generic] 15 mg By Mouth Once daily For TYPE 2 DIABETES MELLITUS WITHOUT COMPLICATIONS 15 mg 11/14 Inactiv e 2023 61747 05553 1 Once daily By Mouth E11.9 False Cholecalcif hardeep (vitamin D3) 50 mcg (2,000 unit) tablet [generic] 50 mcg By Mouth Once daily For Supplement 50 mcg 2023 Active 2023 14207 23943 1 Once daily By Mouth False Colchicine 0.6 mg tablet [generic] 0.6 mg By Mouth Twice daily As Needed For Gout 0.6 mg 2023 Active 2023 04020 15014 4 Twice daily By Mouth False Levothyroxi ne 200 mcg tablet [generic] 200 mcg By Mouth Once daily For Hypothyroidis m 200 mcg 2023 Active 2023 89923 03926 0 Once daily By Mouth False Ondansetron 4 mg disintegrat ing tablet [generic] 4 mg By Mouth Every 6 hours as needed For Nausea 4 mg 11/12 Inactiv e 2023 79669 54789 4 Every 6 hours as needed By Mouth False Docusate sodium 100 mg capsule [generic] 100 mg By Mouth Twice daily For Constipation 100 mg 202300 Active 2023 63661 95330 1 Twice daily By Mouth False Oxycodone 5 mg tablet [generic] 5 mg By Mouth Every 6 hours as needed For Pain 5 mg 11/12 Inactiv e 2023 75059 78680 1 Every 6 hours as needed By Mouth False Oxycodone 5 mg tablet [generic] 5 mg By Mouth Every 6 hours as needed For Pain 5 mg 202300 Active 2023 71702 18550 1 Every 6 hours as needed By Mouth False Milk of Magnesia 400 mg/5 mL oral suspension 30 ml By Mouth one time per day as needed if no BM x 3 days For Constipation 30 ml 202300 Active 2023 08318 96388 2 By Mouth False Ondansetron 4 mg disintegrat ing tablet [generic] 11/12 Inactiv e 2023 15389 41725 4 Ondansetron 4 mg disintegrat ing tablet [generic] 4 mg By Mouth Every 6 hours as needed For Nausea 4 mg 11/14 Inactiv e 2023 18090 42151 4 Every 6 hours as needed By Mouth False Potassium chloride ER 10 mEq capsule,ext ended release [generic] 40 mEq By Mouth Once daily For hypokalemia 40 mEq 202300 Active 2023 76460 07295 1 Once daily By Mouth False Potassium chloride ER 10 mEq capsule,ext ended release [generic] 4 capsules By Mouth At bedtime For hypokalemia 4 capsule s 11/16 Active 2023 79265 38454 1 At bedtime By Mouth False Flomax 0.4 mg capsule 0.4 mg By Mouth At bedtime For Urinary retention 0.4 mg 2023 Active 2023 72929 86482 1 At bedtime By Mouth False STOOL CULTURE Once daily Obtain stool culture, add C. Diff to routine stool culture For Rule out C. Diff 1x 2023 Active 2023 Once daily Other False Butrans 5 mcg/hour transdermal patch 1 patch Transdermal Every 7 Days For Pain 1 patch 2023 Active 2023 02588 71500 4 Every week Transd ermal False Pantoprazol e 40 mg tablet,nu yed release [generic] 40 mg By Mouth Twice daily For gerd 40 mg 2023 Active 2023 68438 96931 0 Twice daily By Mouth False Scopolamine 1 mg over 3 days transdermal patch [generic] 1 Transdermal Every 72 hours For nausea 1 11/21 Active 2023 49936 84370 4 Every 72 hours Transd ermal False Ondansetron 4 mg disintegrat ing tablet [generic] 11/14 Inactiv e 2023 46368 94578 4 Ondansetron 4 mg disintegrat ing tablet [generic] 4 mg By Mouth Every 8 hours For Nausea 4 mg 2023 Active 2023 68197 62255 4 Every 8 hours By Mouth False Miralax 17 gram oral powder packet 8.5 g (1/2 capful) By Mouth Once daily For constipation 8.5 g 2023 Active 2023 69510 42782 6 Once daily By Mouth False Pioglitazon e 15 mg tablet [generic] 11/14 Inactiv e 2023 89091 97538 1 E11.9 Pioglitazon e 15 mg tablet [generic] 7.5mg ( half a tab) By Mouth Once daily For TYPE 2 DIABETES MELLITUS WITHOUT COMPLICATIONS 7.5mg 2023 Active 2023 79110 96758 1 Once daily By Mouth E11.9 False [...] weight Temperature SpO2 Blood Sugar Pulse Respirations 66930 5 75.00 mm[Hg] - Sitting 140.00 mm[Hg] - Sitting 65 NI 98.00 Tympanic 95.00 % 102.00 /min 18.00/min 918 45112 9 13775 2 75.00 mm[Hg] - Sitting 140.00 mm[Hg] - Sitting 98.00 Tympanic 102.00 /min 18.00/min 8 29053 3 98900 918 93572 1 72.00 mm[Hg] - Sitting 138.00 mm[Hg] - Sitting 98.40 Tympanic 68057 918 54847 4 88.00/ min 18.00/min 28479 919 08154 4 71.00 mm[Hg] - Sitting 115.00 mm[Hg] - Sitting 98.30 Tympanic 97.00 % 86.00/ min 16.00/min 72966 919 74446 0 71.00 mm[Hg] - Sitting 115.00 mm[Hg] - Sitting 98.30 Tympanic 86.00/ min 16.00/min 42417 919 60869 7 71.00 mm[Hg] - Sitting 115.00 mm[Hg] - Sitting 98.30 Tympanic 86.00/ min 16.00/min 83990 920 99569 6 72.00 mm[Hg] - Sitting 112.00 mm[Hg] - Sitting 98.10 Tympanic 82.00/ min 18.00/min 52049 920 44997 0 75.00 mm[Hg] - Sitting 130.00 mm[Hg] - Sitting 98.40 Forehead Scan 93.00 % 88.00/ min 18.00/min 90898 920 59437 2 75.00 mm[Hg] - Lying Down 130.00 mm[Hg] - Lying Down 98.40 Tympanic 88.00/ min 18.00/min 18923 920 84120 5 75.00 mm[Hg] - Lying Down 130.00 mm[Hg] - Lying Down 98.40 Tympanic 88.00/ min 18.00/min 97520 920 43504 6 199.00 NI [address]651 920 73172 3 75.00 mm[Hg] - Sitting 130.00 mm[Hg] - Sitting 98.40 Tympanic 88.00/ min 18.00/min
--- OUTSIDE RECORDS SUMMARY | 2023-12-14 | External Medical Summary | Continuity Of Care Document ---
Author Name Unknown Address [address] [place] [address] Organization [facility] () Care Team Providers Care Associate Store Manager Name Role Phone DO Parson Amy Primary Care Provider [phone] Allergies Allergy Reaction Start Date End Date [...] 3 0.1 mL 11/13 Inactiv e 2023 51452 71366 0 1 time Intrad ermal False Tubersol 5 tub. unit/0.1 mL intradermal injection solution [Tuberculin PPD] 0.1mL Intradermal 1 time For PPD 2nd Step Give 2nd Step PPD Day 1 and Read results Day 3 (schedule 7 days after 1st READ) 0.1mL 11/13 Inactiv e 2023 58179 70244 0 1 time Intrad ermal False DISCONTINUE as of 11/14/2023: Tubersol 5 tub. unit/0.1 mL intradermal injection solution [Tuberculin PPD] 11/13 Inactiv e 2023 99183 28880 0 Tubersol 5 tub. unit/0.1 mL intradermal injection solution 0.1 mL Intradermal 1 time For PPD Step 1 GIVE on Day 1 and read results Day 3 0.1 mL 11/16 Inactiv e 2023 76368 54545 1 1 time Intrad ermal False DISCONTINUE as of 11/14/2023: Tubersol 5 tub. unit/0.1 mL intradermal injection solution [Tuberculin PPD] 11/13 Inactiv e 2023 19518 69206 0 Tubersol 5 tub. unit/0.1 mL intradermal injection solution 0.1mL Intradermal 1 time For PPD 2nd Step Give 2nd Step PPD Day 1 and Read results Day 3 (schedule 7 days after 1st READ) 0.1mL 11/25 Active 2023 42354 45581 1 1 time Intrad ermal False Tylenol 325 mg tablet 2 tabs By Mouth Every 4 hours as needed For Pain DO NOT EXCEED 3000 MG APAP/24 Hours 2 tabs 202300 /0000 Active 2023 87565 13018 0 Every 4 hours as needed By Mouth False Tylenol 325 mg tablet 2 tabs By Mouth Every 4 hours as needed For Fever >100 DO NOT EXCEED 3000 MG APAP/24 Hours 2 tabs 202300 /0000 Active 2023 66160 66733 0 Every 4 hours as needed By Mouth False Dulcolax (bisacodyl) 10 mg rectal suppository One Suppository per rectum PRN if Milk of Magnisia ineffective. Give on day 5 of no BM 1 sup 2023 Active 2023 80061 01125 1 Daily as needed Rectal False Fleet Enema 19 gram-7 gram/118 mL Administer per rectum PRN one time if dulcolax suppository not effective. Give on day 6 of no BM 1 202300 0000 Active 2023 03404 78877 6 Daily as needed Rectal False Dextrose 50 % in water (D50W) intravenous solution [generic] Dextrose 50% reyes 20-50 ml (slow push) Intravenous if Glucagon not effective after 15 minutes. CALL 911 for ED Evaluation. 50% reyes 202300 /0000 Active 2023 37423 57586 9 Intrav enous False Glucagon (HCl) Emergency Kit 1 mg solution for injection Administer Glucagon 1 mg Intramuscular if 15 minutes after GLucose Gel is administered Glucose remains less than 70 1 mg 2023 Active 2023 66386 42000 2 Intram uscula r False Glucose Gel 40 % oral gel [Dextrose] PRN If resident is unable to swallow (with or without symptoms) and Glucose results less than 70 give GLucose 40% Gel 1 tube orally - Recheck Glucose 15 minutes after administratio n. 1 tube 2023 Active 2023 96299 58423 8 By Mouth False Lorazepam 0.5 mg tablet [generic] 0.5 mg By Mouth Every 8 hours as needed For Anxiety 0.5 mg 2023 Active 2023 46473 13875 0 Every 8 hours as needed By Mouth False Potassium chloride ER 20 mEq tablet,exte nded release [generic] 40 meq By Mouth Once daily For Hypokalemia 40 meq 11/13 Inactiv e 2023 59432 57356 1 Once daily By Mouth False Colesevelam 625 mg tablet [generic] 1250 mg By Mouth Twice daily For TYPE 2 DIABETES MELLITUS WITHOUT COMPLICATIONS 1250 mg 2023 Active 2023 41273 84419 1 Twice daily By Mouth E11.9 False Pioglitazon e 15 mg tablet [generic] 15 mg By Mouth Once daily For TYPE 2 DIABETES MELLITUS WITHOUT COMPLICATIONS 15 mg 11/14 Inactiv e 2023 02365 92993 1 Once daily By Mouth E11.9 False Cholecalcif hardeep (vitamin D3) 50 mcg (2,000 unit) tablet [generic] 50 mcg By Mouth Once daily For Supplement 50 mcg 2023 Active 2023 07538 78050 1 Once daily By Mouth False Colchicine 0.6 mg tablet [generic] 0.6 mg By Mouth Twice daily As Needed For Gout 0.6 mg 2023 Active 2023 91983 53587 4 Twice daily By Mouth False Levothyroxi ne 200 mcg tablet [generic] 200 mcg By Mouth Once daily For Hypothyroidis m 200 mcg 2023 Active 2023 21994 31240 0 Once daily By Mouth False Ondansetron 4 mg disintegrat ing tablet [generic] 4 mg By Mouth Every 6 hours as needed For Nausea 4 mg 11/12 Inactiv e 2023 96528 39946 4 Every 6 hours as needed By Mouth False Docusate sodium 100 mg capsule [generic] 100 mg By Mouth Twice daily For Constipation 100 mg 2023 Active 2023 09862 17935 1 Twice daily By Mouth False Oxycodone 5 mg tablet [generic] 5 mg By Mouth Every 6 hours as needed For Pain 5 mg 11/12 Inactiv e 2023 44001 55356 1 Every 6 hours as needed By Mouth False Oxycodone 5 mg tablet [generic] 5 mg By Mouth Every 6 hours as needed For Pain 5 mg 2023 Active 2023 01247 58431 1 Every 6 hours as needed By Mouth False Milk of Magnesia 400 mg/5 mL oral suspension 30 ml By Mouth one time per day as needed if no BM x 3 days For Constipation 30 ml 2023 Active 2023 76462 16905 2 By Mouth False Ondansetron 4 mg disintegrat ing tablet [generic] 11/12 Inactiv e 2023 76824 18853 4 Ondansetron 4 mg disintegrat ing tablet [generic] 4 mg By Mouth Every 6 hours as needed For Nausea 4 mg 11/14 Inactiv e 2023 94690 25959 4 Every 6 hours as needed By Mouth False Potassium chloride ER 10 mEq capsule,ext ended release [generic] 40 mEq By Mouth Once daily For hypokalemia 40 mEq 202300 Active 2023 05659 12996 1 Once daily By Mouth False Potassium chloride ER 10 mEq capsule,ext ended release [generic] 4 capsules By Mouth At bedtime For hypokalemia 4 capsule s 11/16 Inactiv e 2023 81127 96714 1 At bedtime By Mouth False Flomax 0.4 mg capsule 0.4 mg By Mouth At bedtime For Urinary retention 0.4 mg 2023 Active 2023 30654 47012 1 At bedtime By Mouth False STOOL CULTURE Once daily Obtain stool culture, add C. Diff to routine stool culture For Rule out C. Diff 1x 2023 Active 2023 Once daily Other False Butrans 5 mcg/hour transdermal patch 1 patch Transdermal Every 7 Days For Pain 1 patch 2023 Active 2023 29918 22099 4 Every week Transd ermal False Pantoprazol e 40 mg tablet,nu yed release [generic] 40 mg By Mouth Twice daily For gerd 40 mg 2023 Active 2023 69980 72600 0 Twice daily By Mouth False Scopolamine 1 mg over 3 days transdermal patch [generic] 1 Transdermal Every 72 hours For nausea 1 11/21 Active 2023 59784 81453 4 Every 72 hours Transd ermal False Ondansetron 4 mg disintegrat ing tablet [generic] 11/14 Inactiv e 2023 49035 03460 4 Ondansetron 4 mg disintegrat ing tablet [generic] 4 mg By Mouth Every 8 hours For Nausea 4 mg 2023 Active 2023 93269 27394 4 Every 8 hours By Mouth False Problems [...] Temperature SpO2 Blood Sugar Pulse Respirations 8 58397 5 75.00 mm[Hg] - Sitting 140.00 mm[Hg] - Sitting 65 NI 98.00 Tympanic 95.00 % 102.00 /min 18.00/min 12015 918 40063 9 79225 918 77151 2 75.00 mm[Hg] - Sitting 140.00 mm[Hg] - Sitting 98.00 Tympanic 102.00 /min 18.00/min 54149 918 07322 3 23737 918 80327 1 72.00 mm[Hg] - Sitting 138.00 mm[Hg] - Sitting 98.40 Tympanic 25381 918 05369 4 88.00/ min 18.00/min 27701 919 35608 4 71.00 mm[Hg] - Sitting 115.00 mm[Hg] - Sitting 98.30 Tympanic 97.00 % 86.00/ min 16.00/min 06113 919 26227 0 71.00 mm[Hg] - Sitting 115.00 mm[Hg] - Sitting 98.30 Tympanic 86.00/ min 16.00/min 59219 919 75141 7 71.00 mm[Hg] - Sitting 115.00 mm[Hg] - Sitting 98.30 Tympanic 86.00/ min 16.00/min 04906 920 12742 6 72.00 mm[Hg] - Sitting 112.00 mm[Hg] - Sitting 98.10 Tympanic 82.00/ min 18.00/min 67876 920 44891 0 75.00 mm[Hg] - Sitting 130.00 mm[Hg] - Sitting 98.40 Forehead Scan 93.00 % 88.00/ min 18.00/min 04424 920 62060 2 75.00 mm[Hg] - Lying Down 130.00 mm[Hg] - Lying Down 98.40 Tympanic 88.00/ min 18.00/min 46826 920 31166 5 75.00 mm[Hg] - Lying Down 130.00 mm[Hg] - Lying Down 98.40 Tympanic 88.00/ min 18.00/min 14856 920 45554 6 199.00 NI 920 07024 3 75.00 mm[Hg] - Sitting 130.00 mm[Hg] - Sitting 98.40 Tympanic 88.00/ min 18.00/min 96146 921 52512 1 71.00 mm[Hg] - Lying Down 119.00 mm[Hg] - Lying Down 98.40 Forehead Scan 96.00 % 83.00/ min 16.00/min
--- OUTSIDE RECORDS SUMMARY | 2023-12-14 | External Medical Summary | Continuity Of Care Document ---
Author Name Unknown Address [address] [place] [address] [facility] () Care Team Providers Care Pre Algebra Teacher Name Role Phone DO Parson Amy Primary Care Provider [phone] Allergies Allergy Reaction Start Date End Date [...] 3 0.1 mL 11/13 Inactiv e 2023 40369 54861 0 1 time Intrad ermal False Tubersol 5 tub. unit/0.1 mL intradermal injection solution [Tuberculin PPD] 0.1mL Intradermal 1 time For PPD 2nd Step Give 2nd Step PPD Day 1 and Read results Day 3 (schedule 7 days after 1st READ) 0.1mL 11/13 Inactiv e 2023 76828 25887 0 1 time Intrad ermal False DISCONTINUE as of 11/14/2023: Tubersol 5 tub. unit/0.1 mL intradermal injection solution [Tuberculin PPD] 11/13 Inactiv e 2023 43895 72040 0 Tubersol 5 tub. unit/0.1 mL intradermal injection solution 0.1 mL Intradermal 1 time For PPD Step 1 GIVE on Day 1 and read results Day 3 0.1 mL 11/16 Inactiv e 2023 16061 77916 1 1 time Intrad ermal False DISCONTINUE as of 11/14/2023: Tubersol 5 tub. unit/0.1 mL intradermal injection solution [Tuberculin PPD] 11/13 Inactiv e 2023 32928 73119 0 Tubersol 5 tub. unit/0.1 mL intradermal injection solution 0.1mL Intradermal 1 time For PPD 2nd Step Give 2nd Step PPD Day 1 and Read results Day 3 (schedule 7 days after 1st READ) 0.1mL 11/25 Active 2023 45960 19682 1 1 time Intrad ermal False Tylenol 325 mg tablet 2 tabs By Mouth Every 4 hours as needed For Pain DO NOT EXCEED 3000 MG APAP/24 Hours 2 tabs 202300 /0000 Active 2023 16684 00519 0 Every 4 hours as needed By Mouth False Tylenol 325 mg tablet 2 tabs By Mouth Every 4 hours as needed For Fever >100 DO NOT EXCEED 3000 MG APAP/24 Hours 2 tabs 202300 /0000 Active 2023 49396 98079 0 Every 4 hours as needed By Mouth False Dulcolax (bisacodyl) 10 mg rectal suppository One Suppository per rectum PRN if Milk of Magnisia ineffective. Give on day 5 of no BM 1 sup 2023 Active 2023 59825 35038 1 Daily as needed Rectal False Fleet Enema 19 gram-7 gram/118 mL Administer per rectum PRN one time if dulcolax suppository not effective. Give on day 6 of no BM 1 202300 0000 Active 2023 49512 73944 6 Daily as needed Rectal False Dextrose 50 % in water (D50W) intravenous solution [generic] Dextrose 50% reyes 20-50 ml (slow push) Intravenous if Glucagon not effective after 15 minutes. CALL 911 for ED Evaluation. 50% reyes 202300 /0000 Active 2023 27408 72929 9 Intrav enous False Glucagon (HCl) Emergency Kit 1 mg solution for injection Administer Glucagon 1 mg Intramuscular if 15 minutes after GLucose Gel is administered Glucose remains less than 70 1 mg 2023 Active 2023 37102 74201 2 Intram uscula r False Glucose Gel 40 % oral gel [Dextrose] PRN If resident is unable to swallow (with or without symptoms) and Glucose results less than 70 give GLucose 40% Gel 1 tube orally - Recheck Glucose 15 minutes after administratio n. 1 tube 2023 Active 2023 65972 40690 8 By Mouth False Lorazepam 0.5 mg tablet [generic] 0.5 mg By Mouth Every 8 hours as needed For Anxiety 0.5 mg 2023 Active 2023 71692 09643 0 Every 8 hours as needed By Mouth False Potassium chloride ER 20 mEq tablet,exte nded release [generic] 40 meq By Mouth Once daily For Hypokalemia 40 meq 11/13 Inactiv e 2023 17535 99832 1 Once daily By Mouth False Colesevelam 625 mg tablet [generic] 1250 mg By Mouth Twice daily For TYPE 2 DIABETES MELLITUS WITHOUT COMPLICATIONS 1250 mg 2023 Active 2023 67686 22427 1 Twice daily By Mouth E11.9 False Pioglitazon e 15 mg tablet [generic] 15 mg By Mouth Once daily For TYPE 2 DIABETES MELLITUS WITHOUT COMPLICATIONS 15 mg 11/14 Inactiv e 2023 81672 58607 1 Once daily By Mouth E11.9 False Cholecalcif hardeep (vitamin D3) 50 mcg (2,000 unit) tablet [generic] 50 mcg By Mouth Once daily For Supplement 50 mcg 2023 Active 2023 50734 38067 1 Once daily By Mouth False Colchicine 0.6 mg tablet [generic] 0.6 mg By Mouth Twice daily As Needed For Gout 0.6 mg 2023 Active 2023 42150 71420 4 Twice daily By Mouth False Levothyroxi ne 200 mcg tablet [generic] 200 mcg By Mouth Once daily For Hypothyroidis m 200 mcg 2023 Active 2023 83657 91310 0 Once daily By Mouth False Ondansetron 4 mg disintegrat ing tablet [generic] 4 mg By Mouth Every 6 hours as needed For Nausea 4 mg 11/12 Inactiv e 2023 03159 66973 4 Every 6 hours as needed By Mouth False Docusate sodium 100 mg capsule [generic] 100 mg By Mouth Twice daily For Constipation 100 mg 2023 Active 2023 21437 62633 1 Twice daily By Mouth False Oxycodone 5 mg tablet [generic] 5 mg By Mouth Every 6 hours as needed For Pain 5 mg 11/12 Inactiv e 2023 42755 44519 1 Every 6 hours as needed By Mouth False Oxycodone 5 mg tablet [generic] 5 mg By Mouth Every 6 hours as needed For Pain 5 mg 2023 Active 2023 99382 51401 1 Every 6 hours as needed By Mouth False Milk of Magnesia 400 mg/5 mL oral suspension 30 ml By Mouth one time per day as needed if no BM x 3 days For Constipation 30 ml 2023 Active 2023 80950 80956 2 By Mouth False Ondansetron 4 mg disintegrat ing tablet [generic] 11/12 Inactiv e 2023 29228 22545 4 Ondansetron 4 mg disintegrat ing tablet [generic] 4 mg By Mouth Every 6 hours as needed For Nausea 4 mg 11/14 Inactiv e 2023 94464 51895 4 Every 6 hours as needed By Mouth False Potassium chloride ER 10 mEq capsule,ext ended release [generic] 40 mEq By Mouth Once daily For hypokalemia 40 mEq 202300 Active 2023 84746 71256 1 Once daily By Mouth False Potassium chloride ER 10 mEq capsule,ext ended release [generic] 4 capsules By Mouth At bedtime For hypokalemia 4 capsule s 11/16 Inactiv e 2023 89353 47290 1 At bedtime By Mouth False Flomax 0.4 mg capsule 0.4 mg By Mouth At bedtime For Urinary retention 0.4 mg 2023 Active 2023 50096 16738 1 At bedtime By Mouth False STOOL CULTURE Once daily Obtain stool culture, add C. Diff to routine stool culture For Rule out C. Diff 1x 2023 Active 2023 Once daily Other False Butrans 5 mcg/hour transdermal patch 1 patch Transdermal Every 7 Days For Pain 1 patch 2023 Active 2023 57387 13133 4 Every week Transd ermal False Pantoprazol e 40 mg tablet,nu yed release [generic] 40 mg By Mouth Twice daily For gerd 40 mg 2023 Active 2023 06395 33185 0 Twice daily By Mouth False Scopolamine 1 mg over 3 days transdermal patch [generic] 1 Transdermal Every 72 hours For nausea 1 11/21 Active 2023 84943 02685 4 Every 72 hours Transd ermal False Ondansetron 4 mg disintegrat ing tablet [generic] 11/14 Inactiv e 2023 20214 23496 4 Ondansetron 4 mg disintegrat ing tablet [generic] 4 mg By Mouth Every 8 hours For Nausea 4 mg 2023 Active 2023 90089 86847 4 Every 8 hours By Mouth False Miralax 17 gram oral powder packet 8.5 g (1/2 capful) By Mouth Once daily For constipation 8.5 g 2023 Active 2023 54066 81020 6 Once daily By Mouth False Pioglitazon e 15 mg tablet [generic] 11/14 Inactiv e 2023 33617 64600 1 E11.9 Pioglitazon e 15 mg tablet [generic] 7.5mg ( half a tab) By Mouth Once daily For TYPE 2 DIABETES MELLITUS WITHOUT COMPLICATIONS 7.5mg 2023 Active 2023 76293 57356 1 Once daily By Mouth E11.9 False [...] weight Temperature SpO2 Blood Sugar Pulse Respirations 65603 918 27167 5 75.00 mm[Hg] - Sitting 140.00 mm[Hg] - Sitting 65 NI 98.00 Tympanic 95.00 % 102.00 /min 18.00/min 38276 918 78005 9 29706 918 80168 2 75.00 mm[Hg] - Sitting 140.00 mm[Hg] - Sitting 98.00 Tympanic 102.00 /min 18.00/min 16181 918 30701 3 03883 918 88584 1 72.00 mm[Hg] - Sitting 138.00 mm[Hg] - Sitting 98.40 Tympanic 88979 918 30985 4 88.00/ min 18.00/min 72180 919 02970 4 71.00 mm[Hg] - Sitting 115.00 mm[Hg] - Sitting 98.30 Tympanic 97.00 % 86.00/ min 16.00/min 71579 919 98689 0 71.00 mm[Hg] - Sitting 115.00 mm[Hg] - Sitting 98.30 Tympanic 86.00/ min 16.00/min 95255 919 57024 7 71.00 mm[Hg] - Sitting 115.00 mm[Hg] - Sitting 98.30 Tympanic 86.00/ min 16.00/min 55779 920 41535 6 72.00 mm[Hg] - Sitting 112.00 mm[Hg] - Sitting 98.10 Tympanic 82.00/ min 18.00/min 06660 920 19081 0 75.00 mm[Hg] - Sitting 130.00 mm[Hg] - Sitting 98.40 Forehead Scan 93.00 % 88.00/ min 18.00/min 06977 920 66206 2 75.00 mm[Hg] - Lying Down 130.00 mm[Hg] - Lying Down 98.40 Tympanic 88.00/ min 18.00/min 34081 920 85433 5 75.00 mm[Hg] - Lying Down 130.00 mm[Hg] - Lying Down 98.40 Tympanic 88.00/ min 18.00/min 85579 920 98006 6 199.00 NI 46512 920 22927 3 75.00 mm[Hg] - Sitting 130.00 mm[Hg] - Sitting 98.40 Tympanic 88.00/ min 18.00/min 41434 921 38502 1 71.00 mm[Hg] - Lying Down 119.00 mm[Hg] - Lying Down 98.40 Forehead Scan 96.00 % 83.00/ min 16.00/min
--- OUTSIDE RECORDS SUMMARY | 2023-12-14 | External Medical Summary | Continuity Of Care Document ---
Author Name Unknown Address [address] [place] [address] Organization [facility] [place] () Care Team Providers Care Insurance Adjuster Name Role Phone DO Parson Amy Primary Care Provider [phone] Allergies Allergy Reaction Start Date End Date [...] 3 0.1 mL 11/13 Inactiv e 2023 04813 49556 0 1 time Intrad ermal False Tubersol 5 tub. unit/0.1 mL intradermal injection solution [Tuberculin PPD] 0.1mL Intradermal 1 time For PPD 2nd Step Give 2nd Step PPD Day 1 and Read results Day 3 (schedule 7 days after 1st READ) 0.1mL 11/13 Inactiv e 2023 89601 29295 0 1 time Intrad ermal False DISCONTINUE as of 11/14/2023: Tubersol 5 tub. unit/0.1 mL intradermal injection solution [Tuberculin PPD] 11/13 Inactiv e 2023 09486 13738 0 Tubersol 5 tub. unit/0.1 mL intradermal injection solution 0.1 mL Intradermal 1 time For PPD Step 1 GIVE on Day 1 and read results Day 3 0.1 mL 11/16 Active 2023 78562 35337 1 1 time Intrad ermal False DISCONTINUE as of 11/14/2023: Tubersol 5 tub. unit/0.1 mL intradermal injection solution [Tuberculin PPD] 11/13 Inactiv e 2023 30310 27696 0 Tubersol 5 tub. unit/0.1 mL intradermal injection solution 0.1mL Intradermal 1 time For PPD 2nd Step Give 2nd Step PPD Day 1 and Read results Day 3 (schedule 7 days after 1st READ) 0.1mL 11/25 Active 2023 54590 19361 1 1 time Intrad ermal False Tylenol 325 mg tablet 2 tabs By Mouth Every 4 hours as needed For Pain DO NOT EXCEED 3000 MG APAP/24 Hours 2 tabs 2023 Active 2023 01831 13976 0 Every 4 hours as needed By Mouth False Tylenol 325 mg tablet 2 tabs By Mouth Every 4 hours as needed For Fever >100 DO NOT EXCEED 3000 MG APAP/24 Hours 2 tabs 202300 Active 2023 83441 08163 0 Every 4 hours as needed By Mouth False Dulcolax (bisacodyl) 10 mg rectal suppository One Suppository per rectum PRN if Milk of Magnisia ineffective. Give on day 5 of no BM 1 sup 2023 Active 2023 14539 63130 1 Daily as needed Rectal False Fleet Enema 19 gram-7 gram/118 mL Administer per rectum PRN one time if dulcolax suppository not effective. Give on day 6 of no BM 1 202300 Active 2023 35680 13302 6 Daily as needed Rectal False Dextrose 50 % in water (D50W) intravenous solution [generic] Dextrose 50% reyes 20-50 ml (slow push) Intravenous if Glucagon not effective after 15 minutes. CALL 911 for ED Evaluation. 50% reyes 202300 0000 Active 2023 99113 85457 9 Intrav enous False Glucagon (HCl) Emergency Kit 1 mg solution for injection Administer Glucagon 1 mg Intramuscular if 15 minutes after GLucose Gel is administered Glucose remains less than 70 1 mg 2023 Active 2023 71874 11982 2 Intram uscula r False Glucose Gel 40 % oral gel [Dextrose] PRN If resident is unable to swallow (with or without symptoms) and Glucose results less than 70 give GLucose 40% Gel 1 tube orally - Recheck Glucose 15 minutes after administratio n. 1 tube 2023 Active 2023 21186 06013 8 By Mouth False Lorazepam 0.5 mg tablet [generic] 0.5 mg By Mouth Every 8 hours as needed For Anxiety 0.5 mg 2023 Active 2023 95227 72895 0 Every 8 hours as needed By Mouth False Potassium chloride ER 20 mEq tablet,exte nded release [generic] 40 meq By Mouth Once daily For Hypokalemia 40 meq 11/13 Inactiv e 2023 44028 87382 1 Once daily By Mouth False Colesevelam 625 mg tablet [generic] 1250 mg By Mouth Twice daily For TYPE 2 DIABETES MELLITUS WITHOUT COMPLICATIONS 1250 mg 2023 Active 2023 39637 42866 1 Twice daily By Mouth E11.9 False Pioglitazon e 15 mg tablet [generic] 15 mg By Mouth Once daily For TYPE 2 DIABETES MELLITUS WITHOUT COMPLICATIONS 15 mg 11/14 Inactiv e 2023 17515 35007 1 Once daily By Mouth E11.9 False Cholecalcif hardeep (vitamin D3) 50 mcg (2,000 unit) tablet [generic] 50 mcg By Mouth Once daily For Supplement 50 mcg 2023 Active 2023 43189 56435 1 Once daily By Mouth False Colchicine 0.6 mg tablet [generic] 0.6 mg By Mouth Twice daily As Needed For Gout 0.6 mg 2023 Active 2023 53302 59294 4 Twice daily By Mouth False Levothyroxi ne 200 mcg tablet [generic] 200 mcg By Mouth Once daily For Hypothyroidis m 200 mcg 2023 Active 2023 58454 78605 0 Once daily By Mouth False Ondansetron 4 mg disintegrat ing tablet [generic] 4 mg By Mouth Every 6 hours as needed For Nausea 4 mg 11/12 Inactiv e 2023 69064 97535 4 Every 6 hours as needed By Mouth False Docusate sodium 100 mg capsule [generic] 100 mg By Mouth Twice daily For Constipation 100 mg 202300 Active 2023 00109 41253 1 Twice daily By Mouth False Oxycodone 5 mg tablet [generic] 5 mg By Mouth Every 6 hours as needed For Pain 5 mg 11/12 Inactiv e 2023 36228 01022 1 Every 6 hours as needed By Mouth False Oxycodone 5 mg tablet [generic] 5 mg By Mouth Every 6 hours as needed For Pain 5 mg 202300 Active 2023 54709 03721 1 Every 6 hours as needed By Mouth False Milk of Magnesia 400 mg/5 mL oral suspension 30 ml By Mouth one time per day as needed if no BM x 3 days For Constipation 30 ml 202300 Active 2023 10517 76372 2 By Mouth False Ondansetron 4 mg disintegrat ing tablet [generic] 11/12 Inactiv e 2023 26335 45264 4 Ondansetron 4 mg disintegrat ing tablet [generic] 4 mg By Mouth Every 6 hours as needed For Nausea 4 mg 11/14 Inactiv e 2023 12510 71650 4 Every 6 hours as needed By Mouth False Potassium chloride ER 10 mEq capsule,ext ended release [generic] 40 mEq By Mouth Once daily For hypokalemia 40 mEq 202300 Active 2023 60208 18781 1 Once daily By Mouth False Potassium chloride ER 10 mEq capsule,ext ended release [generic] 4 capsules By Mouth At bedtime For hypokalemia 4 capsule s 11/16 Active 2023 85335 67374 1 At bedtime By Mouth False Flomax 0.4 mg capsule 0.4 mg By Mouth At bedtime For Urinary retention 0.4 mg 2023 Active 2023 22910 33343 1 At bedtime By Mouth False STOOL CULTURE Once daily Obtain stool culture, add C. Diff to routine stool culture For Rule out C. Diff 1x 2023 Active 2023 Once daily Other False Butrans 5 mcg/hour transdermal patch 1 patch Transdermal Every 7 Days For Pain 1 patch 2023 Active 2023 99332 73651 4 Every week Transd ermal False Pantoprazol e 40 mg tablet,nu yed release [generic] 40 mg By Mouth Twice daily For gerd 40 mg 2023 Active 2023 24011 33767 0 Twice daily By Mouth False Scopolamine 1 mg over 3 days transdermal patch [generic] 1 Transdermal Every 72 hours For nausea 1 11/21 Active 2023 09410 92792 4 Every 72 hours Transd ermal False Ondansetron 4 mg disintegrat ing tablet [generic] 11/14 Inactiv e 2023 50897 78888 4 Ondansetron 4 mg disintegrat ing tablet [generic] 4 mg By Mouth Every 8 hours For Nausea 4 mg 2023 Active 2023 92159 80884 4 Every 8 hours By Mouth False Miralax 17 gram oral powder packet 8.5 g (1/2 capful) By Mouth Once daily For constipation 8.5 g 2023 Active 2023 76097 76861 6 Once daily By Mouth False Pioglitazon e 15 mg tablet [generic] 11/14 Inactiv e 2023 50045 80029 1 E11.9 Pioglitazon e 15 mg tablet [generic] 7.5mg ( half a tab) By Mouth Once daily For TYPE 2 DIABETES MELLITUS WITHOUT COMPLICATIONS 7.5mg 2023 Active 2023 57599 16865 1 Once daily By Mouth E11.9 False [...] weight Temperature SpO2 Blood Sugar Pulse Respirations 93377 5 75.00 mm[Hg] - Sitting 140.00 mm[Hg] - Sitting 65 NI 98.00 Tympanic 95.00 % 102.00 /min 18.00/min 918 13342 9 54670 2 75.00 mm[Hg] - Sitting 140.00 mm[Hg] - Sitting 98.00 Tympanic 102.00 /min 18.00/min 8 77345 3 41753 918 05530 1 72.00 mm[Hg] - Sitting 138.00 mm[Hg] - Sitting 98.40 Tympanic 73734 918 86529 4 88.00/ min 18.00/min 78279 919 49190 4 71.00 mm[Hg] - Sitting 115.00 mm[Hg] - Sitting 98.30 Tympanic 97.00 % 86.00/ min 16.00/min 92308 919 30447 0 71.00 mm[Hg] - Sitting 115.00 mm[Hg] - Sitting 98.30 Tympanic 86.00/ min 16.00/min 17280 919 82027 7 71.00 mm[Hg] - Sitting 115.00 mm[Hg] - Sitting 98.30 Tympanic 86.00/ min 16.00/min 70770 920 31087 6 72.00 mm[Hg] - Sitting 112.00 mm[Hg] - Sitting 98.10 Tympanic 82.00/ min 18.00/min 89915 920 42349 0 75.00 mm[Hg] - Sitting 130.00 mm[Hg] - Sitting 98.40 Forehead Scan 93.00 % 88.00/ min 18.00/min 15796 920 64300 2 75.00 mm[Hg] - Lying Down 130.00 mm[Hg] - Lying Down 98.40 Tympanic 88.00/ min 18.00/min 49354 920 56344 5 75.00 mm[Hg] - Lying Down 130.00 mm[Hg] - Lying Down 98.40 Tympanic 88.00/ min 18.00/min 21695 920 83666 6 199.00 NI
--- OUTSIDE RECORDS SUMMARY | 2023-12-14 | External Medical Summary | Continuity Of Care Document ---
Author Name Unknown Address [address] [place] [address] Organization [facility] () Care Team Providers Care Senior Art Director Name Role Phone DO Parson Amy Primary Care Provider [phone] Allergies Allergy Reaction Start Date End Date [...] 3 0.1 mL 11/13 Inactiv e 2023 56026 89910 0 1 time Intrad ermal False Tubersol 5 tub. unit/0.1 mL intradermal injection solution [Tuberculin PPD] 0.1mL Intradermal 1 time For PPD 2nd Step Give 2nd Step PPD Day 1 and Read results Day 3 (schedule 7 days after 1st READ) 0.1mL 11/13 Inactiv e 2023 73407 30545 0 1 time Intrad ermal False DISCONTINUE as of 11/14/2023: Tubersol 5 tub. unit/0.1 mL intradermal injection solution [Tuberculin PPD] 11/13 Inactiv e 2023 28933 33787 0 Tubersol 5 tub. unit/0.1 mL intradermal injection solution 0.1 mL Intradermal 1 time For PPD Step 1 GIVE on Day 1 and read results Day 3 0.1 mL 11/16 Active 2023 08788 77586 1 1 time Intrad ermal False DISCONTINUE as of 11/14/2023: Tubersol 5 tub. unit/0.1 mL intradermal injection solution [Tuberculin PPD] 11/13 Inactiv e 2023 42200 23689 0 Tubersol 5 tub. unit/0.1 mL intradermal injection solution 0.1mL Intradermal 1 time For PPD 2nd Step Give 2nd Step PPD Day 1 and Read results Day 3 (schedule 7 days after 1st READ) 0.1mL 11/25 Active 2023 85385 23488 1 1 time Intrad ermal False Tylenol 325 mg tablet 2 tabs By Mouth Every 4 hours as needed For Pain DO NOT EXCEED 3000 MG APAP/24 Hours 2 tabs 2023 Active 2023 80711 14022 0 Every 4 hours as needed By Mouth False Tylenol 325 mg tablet 2 tabs By Mouth Every 4 hours as needed For Fever >100 DO NOT EXCEED 3000 MG APAP/24 Hours 2 tabs 202300 Active 2023 43893 56053 0 Every 4 hours as needed By Mouth False Dulcolax (bisacodyl) 10 mg rectal suppository One Suppository per rectum PRN if Milk of Magnisia ineffective. Give on day 5 of no BM 1 sup 2023 Active 2023 31971 35593 1 Daily as needed Rectal False Fleet Enema 19 gram-7 gram/118 mL Administer per rectum PRN one time if dulcolax suppository not effective. Give on day 6 of no BM 1 202300 Active 2023 18864 46712 6 Daily as needed Rectal False Dextrose 50 % in water (D50W) intravenous solution [generic] Dextrose 50% reyes 20-50 ml (slow push) Intravenous if Glucagon not effective after 15 minutes. CALL 911 for ED Evaluation. 50% reyes 202300 0000 Active 2023 55305 22280 9 Intrav enous False Glucagon (HCl) Emergency Kit 1 mg solution for injection Administer Glucagon 1 mg Intramuscular if 15 minutes after GLucose Gel is administered Glucose remains less than 70 1 mg 2023 Active 2023 14912 04202 2 Intram uscula r False Glucose Gel 40 % oral gel [Dextrose] PRN If resident is unable to swallow (with or without symptoms) and Glucose results less than 70 give GLucose 40% Gel 1 tube orally - Recheck Glucose 15 minutes after administratio n. 1 tube 2023 Active 2023 30875 55321 8 By Mouth False Lorazepam 0.5 mg tablet [generic] 0.5 mg By Mouth Every 8 hours as needed For Anxiety 0.5 mg 2023 Active 2023 59844 41310 0 Every 8 hours as needed By Mouth False Potassium chloride ER 20 mEq tablet,exte nded release [generic] 40 meq By Mouth Once daily For Hypokalemia 40 meq 11/13 Inactiv e 2023 16552 74089 1 Once daily By Mouth False Colesevelam 625 mg tablet [generic] 1250 mg By Mouth Twice daily For TYPE 2 DIABETES MELLITUS WITHOUT COMPLICATIONS 1250 mg 2023 Active 2023 89255 31353 1 Twice daily By Mouth E11.9 False Pioglitazon e 15 mg tablet [generic] 15 mg By Mouth Once daily For TYPE 2 DIABETES MELLITUS WITHOUT COMPLICATIONS 15 mg 11/14 Inactiv e 2023 89970 07280 1 Once daily By Mouth E11.9 False Cholecalcif hardeep (vitamin D3) 50 mcg (2,000 unit) tablet [generic] 50 mcg By Mouth Once daily For Supplement 50 mcg 2023 Active 2023 25602 74885 1 Once daily By Mouth False Colchicine 0.6 mg tablet [generic] 0.6 mg By Mouth Twice daily As Needed For Gout 0.6 mg 2023 Active 2023 73519 11159 4 Twice daily By Mouth False Levothyroxi ne 200 mcg tablet [generic] 200 mcg By Mouth Once daily For Hypothyroidis m 200 mcg 2023 Active 2023 67170 19776 0 Once daily By Mouth False Ondansetron 4 mg disintegrat ing tablet [generic] 4 mg By Mouth Every 6 hours as needed For Nausea 4 mg 11/12 Inactiv e 2023 71634 42173 4 Every 6 hours as needed By Mouth False Docusate sodium 100 mg capsule [generic] 100 mg By Mouth Twice daily For Constipation 100 mg 202300 Active 2023 67017 63287 1 Twice daily By Mouth False Oxycodone 5 mg tablet [generic] 5 mg By Mouth Every 6 hours as needed For Pain 5 mg 11/12 Inactiv e 2023 44580 04401 1 Every 6 hours as needed By Mouth False Oxycodone 5 mg tablet [generic] 5 mg By Mouth Every 6 hours as needed For Pain 5 mg 202300 Active 2023 24518 33683 1 Every 6 hours as needed By Mouth False Milk of Magnesia 400 mg/5 mL oral suspension 30 ml By Mouth one time per day as needed if no BM x 3 days For Constipation 30 ml 202300 Active 2023 27114 67265 2 By Mouth False Ondansetron 4 mg disintegrat ing tablet [generic] 11/12 Inactiv e 2023 55017 55045 4 Ondansetron 4 mg disintegrat ing tablet [generic] 4 mg By Mouth Every 6 hours as needed For Nausea 4 mg 11/14 Inactiv e 2023 33680 06407 4 Every 6 hours as needed By Mouth False Potassium chloride ER 10 mEq capsule,ext ended release [generic] 40 mEq By Mouth Once daily For hypokalemia 40 mEq 202300 Active 2023 80982 99699 1 Once daily By Mouth False Potassium chloride ER 10 mEq capsule,ext ended release [generic] 4 capsules By Mouth At bedtime For hypokalemia 4 capsule s 11/16 Active 2023 94602 10748 1 At bedtime By Mouth False Flomax 0.4 mg capsule 0.4 mg By Mouth At bedtime For Urinary retention 0.4 mg 2023 Active 2023 87925 09925 1 At bedtime By Mouth False STOOL CULTURE Once daily Obtain stool culture, add C. Diff to routine stool culture For Rule out C. Diff 1x 2023 Active 2023 Once daily Other False Butrans 5 mcg/hour transdermal patch 1 patch Transdermal Every 7 Days For Pain 1 patch 2023 Active 2023 77082 98783 4 Every week Transd ermal False Pantoprazol e 40 mg tablet,nu yed release [generic] 40 mg By Mouth Twice daily For gerd 40 mg 2023 Active 2023 74597 08500 0 Twice daily By Mouth False Scopolamine 1 mg over 3 days transdermal patch [generic] 1 Transdermal Every 72 hours For nausea 1 11/21 Active 2023 87123 46080 4 Every 72 hours Transd ermal False Ondansetron 4 mg disintegrat ing tablet [generic] 11/14 Inactiv e 2023 73772 96071 4 Ondansetron 4 mg disintegrat ing tablet [generic] 4 mg By Mouth Every 8 hours For Nausea 4 mg 2023 Active 2023 16107 76923 4 Every 8 hours By Mouth False Miralax 17 gram oral powder packet 8.5 g (1/2 capful) By Mouth Once daily For constipation 8.5 g 2023 Active 2023 40781 67467 6 Once daily By Mouth False Pioglitazon e 15 mg tablet [generic] 11/14 Inactiv e 2023 19711 56334 1 E11.9 Pioglitazon e 15 mg tablet [generic] 7.5mg ( half a tab) By Mouth Once daily For TYPE 2 DIABETES MELLITUS WITHOUT COMPLICATIONS 7.5mg 2023 Active 2023 46527 11948 1 Once daily By Mouth E11.9 False [...] weight Temperature SpO2 Blood Sugar Pulse Respirations 67447 5 75.00 mm[Hg] - Sitting 140.00 mm[Hg] - Sitting 65 NI 98.00 Tympanic 95.00 % 102.00 /min 18.00/min 918 89144 9 00257 2 75.00 mm[Hg] - Sitting 140.00 mm[Hg] - Sitting 98.00 Tympanic 102.00 /min 18.00/min 8 90259 3 67761 918 88914 1 72.00 mm[Hg] - Sitting 138.00 mm[Hg] - Sitting 98.40 Tympanic 51685 918 53855 4 88.00/ min 18.00/min 20323 919 58498 4 71.00 mm[Hg] - Sitting 115.00 mm[Hg] - Sitting 98.30 Tympanic 97.00 % 86.00/ min 16.00/min 27096 919 10544 0 71.00 mm[Hg] - Sitting 115.00 mm[Hg] - Sitting 98.30 Tympanic 86.00/ min 16.00/min 52648 919 61139 7 71.00 mm[Hg] - Sitting 115.00 mm[Hg] - Sitting 98.30 Tympanic 86.00/ min 16.00/min 68434 920 16599 6 72.00 mm[Hg] - Sitting 112.00 mm[Hg] - Sitting 98.10 Tympanic 82.00/ min 18.00/min 46541 920 98571 0 75.00 mm[Hg] - Sitting 130.00 mm[Hg] - Sitting 98.40 Forehead Scan 93.00 % 88.00/ min 18.00/min 92676 920 99962 2 75.00 mm[Hg] - Lying Down 130.00 mm[Hg] - Lying Down 98.40 Tympanic 88.00/ min 18.00/min 99198 920 27689 5 75.00 mm[Hg] - Lying Down 130.00 mm[Hg] - Lying Down 98.40 Tympanic 88.00/ min 18.00/min 27220 920 49175 6 199.00 [place] [address] 920 81618 3 75.00 mm[Hg] - Sitting 130.00 mm[Hg] - Sitting 98.40 Tympanic 88.00/ min 18.00/min
--- OUTSIDE RECORDS SUMMARY | 2023-12-14 | External Medical Summary | Continuity Of Care Document ---
Author Name Unknown Address [address] [place] [address] Organization [facility] () Care Team Providers Care Cyanide Pot Hardener Name Role Phone DO Parson Amy Primary Care Provider [phone] Allergies Allergy Reaction Start Date End Date [...] 3 0.1 mL 11/13 Inactiv e 2023 88510 43464 0 1 time Intrad ermal False Tubersol 5 tub. unit/0.1 mL intradermal injection solution [Tuberculin PPD] 0.1mL Intradermal 1 time For PPD 2nd Step Give 2nd Step PPD Day 1 and Read results Day 3 (schedule 7 days after 1st READ) 0.1mL 11/13 Inactiv e 2023 67421 93055 0 1 time Intrad ermal False DISCONTINUE as of 11/14/2023: Tubersol 5 tub. unit/0.1 mL intradermal injection solution [Tuberculin PPD] 11/13 Inactiv e 2023 42398 85649 0 Tubersol 5 tub. unit/0.1 mL intradermal injection solution 0.1 mL Intradermal 1 time For PPD Step 1 GIVE on Day 1 and read results Day 3 0.1 mL 11/16 Inactiv e 2023 65632 63837 1 1 time Intrad ermal False DISCONTINUE as of 11/14/2023: Tubersol 5 tub. unit/0.1 mL intradermal injection solution [Tuberculin PPD] 11/13 Inactiv e 2023 72279 52454 0 Tubersol 5 tub. unit/0.1 mL intradermal injection solution 0.1mL Intradermal 1 time For PPD 2nd Step Give 2nd Step PPD Day 1 and Read results Day 3 (schedule 7 days after 1st READ) 0.1mL 11/25 Active 2023 50214 18580 1 1 time Intrad ermal False Tylenol 325 mg tablet 2 tabs By Mouth Every 4 hours as needed For Pain DO NOT EXCEED 3000 MG APAP/24 Hours 2 tabs 202300 /0000 Active 2023 50035 16980 0 Every 4 hours as needed By Mouth False Tylenol 325 mg tablet 2 tabs By Mouth Every 4 hours as needed For Fever >100 DO NOT EXCEED 3000 MG APAP/24 Hours 2 tabs 202300 /0000 Active 2023 74585 17392 0 Every 4 hours as needed By Mouth False Dulcolax (bisacodyl) 10 mg rectal suppository One Suppository per rectum PRN if Milk of Magnisia ineffective. Give on day 5 of no BM 1 sup 2023 Active 2023 96996 41278 1 Daily as needed Rectal False Fleet Enema 19 gram-7 gram/118 mL Administer per rectum PRN one time if dulcolax suppository not effective. Give on day 6 of no BM 1 202300 0000 Active 2023 98576 64486 6 Daily as needed Rectal False Dextrose 50 % in water (D50W) intravenous solution [generic] Dextrose 50% reyes 20-50 ml (slow push) Intravenous if Glucagon not effective after 15 minutes. CALL 911 for ED Evaluation. 50% reyes 202300 /0000 Active 2023 97457 48829 9 Intrav enous False Glucagon (HCl) Emergency Kit 1 mg solution for injection Administer Glucagon 1 mg Intramuscular if 15 minutes after GLucose Gel is administered Glucose remains less than 70 1 mg 2023 Active 2023 17747 74802 2 Intram uscula r False Glucose Gel 40 % oral gel [Dextrose] PRN If resident is unable to swallow (with or without symptoms) and Glucose results less than 70 give GLucose 40% Gel 1 tube orally - Recheck Glucose 15 minutes after administratio n. 1 tube 2023 Active 2023 21719 59601 8 By Mouth False Lorazepam 0.5 mg tablet [generic] 0.5 mg By Mouth Every 8 hours as needed For Anxiety 0.5 mg 2023 Active 2023 46345 43654 0 Every 8 hours as needed By Mouth False Potassium chloride ER 20 mEq tablet,exte nded release [generic] 40 meq By Mouth Once daily For Hypokalemia 40 meq 11/13 Inactiv e 2023 39207 60792 1 Once daily By Mouth False Colesevelam 625 mg tablet [generic] 1250 mg By Mouth Twice daily For TYPE 2 DIABETES MELLITUS WITHOUT COMPLICATIONS 1250 mg 2023 Active 2023 11667 28200 1 Twice daily By Mouth E11.9 False Pioglitazon e 15 mg tablet [generic] 15 mg By Mouth Once daily For TYPE 2 DIABETES MELLITUS WITHOUT COMPLICATIONS 15 mg 11/14 Inactiv e 2023 36747 23662 1 Once daily By Mouth E11.9 False Cholecalcif hardeep (vitamin D3) 50 mcg (2,000 unit) tablet [generic] 50 mcg By Mouth Once daily For Supplement 50 mcg 2023 Active 2023 09295 75633 1 Once daily By Mouth False Colchicine 0.6 mg tablet [generic] 0.6 mg By Mouth Twice daily As Needed For Gout 0.6 mg 2023 Active 2023 28298 82567 4 Twice daily By Mouth False Levothyroxi ne 200 mcg tablet [generic] 200 mcg By Mouth Once daily For Hypothyroidis m 200 mcg 2023 Active 2023 42625 78342 0 Once daily By Mouth False Ondansetron 4 mg disintegrat ing tablet [generic] 4 mg By Mouth Every 6 hours as needed For Nausea 4 mg 11/12 Inactiv e 2023 17125 64332 4 Every 6 hours as needed By Mouth False Docusate sodium 100 mg capsule [generic] 100 mg By Mouth Twice daily For Constipation 100 mg 2023 Active 2023 82270 29547 1 Twice daily By Mouth False Oxycodone 5 mg tablet [generic] 5 mg By Mouth Every 6 hours as needed For Pain 5 mg 11/12 Inactiv e 2023 37689 75459 1 Every 6 hours as needed By Mouth False Oxycodone 5 mg tablet [generic] 5 mg By Mouth Every 6 hours as needed For Pain 5 mg 2023 Active 2023 99473 72796 1 Every 6 hours as needed By Mouth False Milk of Magnesia 400 mg/5 mL oral suspension 30 ml By Mouth one time per day as needed if no BM x 3 days For Constipation 30 ml 2023 Active 2023 25374 42369 2 By Mouth False Ondansetron 4 mg disintegrat ing tablet [generic] 11/12 Inactiv e 2023 52289 30699 4 Ondansetron 4 mg disintegrat ing tablet [generic] 4 mg By Mouth Every 6 hours as needed For Nausea 4 mg 11/14 Inactiv e 2023 05649 60304 4 Every 6 hours as needed By Mouth False Potassium chloride ER 10 mEq capsule,ext ended release [generic] 40 mEq By Mouth Once daily For hypokalemia 40 mEq 202300 Active 2023 29139 25982 1 Once daily By Mouth False Potassium chloride ER 10 mEq capsule,ext ended release [generic] 4 capsules By Mouth At bedtime For hypokalemia 4 capsule s 11/16 Inactiv e 2023 90877 44852 1 At bedtime By Mouth False Flomax 0.4 mg capsule 0.4 mg By Mouth At bedtime For Urinary retention 0.4 mg 2023 Active 2023 97296 09401 1 At bedtime By Mouth False STOOL CULTURE Once daily Obtain stool culture, add C. Diff to routine stool culture For Rule out C. Diff 1x 2023 Active 2023 Once daily Other False Butrans 5 mcg/hour transdermal patch 1 patch Transdermal Every 7 Days For Pain 1 patch 2023 Active 2023 26423 52698 4 Every week Transd ermal False Pantoprazol e 40 mg tablet,nu yed release [generic] 40 mg By Mouth Twice daily For gerd 40 mg 2023 Active 2023 93385 20853 0 Twice daily By Mouth False Scopolamine 1 mg over 3 days transdermal patch [generic] 1 Transdermal Every 72 hours For nausea 1 11/21 Active 2023 59555 19104 4 Every 72 hours Transd ermal False Ondansetron 4 mg disintegrat ing tablet [generic] 11/14 Inactiv e 2023 47856 72456 4 Ondansetron 4 mg disintegrat ing tablet [generic] 4 mg By Mouth Every 8 hours For Nausea 4 mg 2023 Active 2023 41158 01217 4 Every 8 hours By Mouth False Miralax 17 gram oral powder packet 8.5 g (1/2 capful) By Mouth Once daily For constipation 8.5 g 2023 Active 2023 35938 28449 6 Once daily By Mouth False Pioglitazon e 15 mg tablet [generic] 11/14 Inactiv e 2023 91241 99085 1 E11.9 Pioglitazon e 15 mg tablet [generic] 7.5mg ( half a tab) By Mouth Once daily For TYPE 2 DIABETES MELLITUS WITHOUT COMPLICATIONS 7.5mg 2023 Active 2023 46662 61680 1 Once daily By Mouth E11.9 False [...] weight Temperature SpO2 Blood Sugar Pulse Respirations 01049 918 30991 5 75.00 mm[Hg] - Sitting 140.00 mm[Hg] - Sitting 65 NI 98.00 Tympanic 95.00 % 102.00 /min 18.00/min 06047 918 84464 9 34207 918 86424 2 75.00 mm[Hg] - Sitting 140.00 mm[Hg] - Sitting 98.00 Tympanic 102.00 /min 18.00/min 00883 918 28623 3 10696 918 90533 1 72.00 mm[Hg] - Sitting 138.00 mm[Hg] - Sitting 98.40 Tympanic 89034 918 39308 4 88.00/ min 18.00/min 28802 919 44763 4 71.00 mm[Hg] - Sitting 115.00 mm[Hg] - Sitting 98.30 Tympanic 97.00 % 86.00/ min 16.00/min 37855 919 81665 0 71.00 mm[Hg] - Sitting 115.00 mm[Hg] - Sitting 98.30 Tympanic 86.00/ min 16.00/min 00107 919 80291 7 71.00 mm[Hg] - Sitting 115.00 mm[Hg] - Sitting 98.30 Tympanic 86.00/ min 16.00/min 06594 920 73917 6 72.00 mm[Hg] - Sitting 112.00 mm[Hg] - Sitting 98.10 Tympanic 82.00/ min 18.00/min 03132 920 23721 0 75.00 mm[Hg] - Sitting 130.00 mm[Hg] - Sitting 98.40 Forehead Scan 93.00 % 88.00/ min 18.00/min 25111 920 85165 2 75.00 mm[Hg] - Lying Down 130.00 mm[Hg] - Lying Down 98.40 Tympanic 88.00/ min 18.00/min 18667 920 57436 5 75.00 mm[Hg] - Lying Down 130.00 mm[Hg] - Lying Down 98.40 Tympanic 88.00/ min 18.00/min 31020 920 98644 6 199[place]00 [place] [address] 920 42956 3 75.00 mm[Hg] - Sitting 130.00 mm[Hg] - Sitting 98.40 Tympanic 88.00/ min 18.00/min 34013 921 02003 1 71.00 mm[Hg] - Lying Down 119.00 mm[Hg] - Lying Down 98.40 Forehead Scan 96.00 % 83.00/ min 16.00/min 50881 922 36041 6 71.00 mm[Hg] - Lying Down 128.00 mm[Hg] - Lying Down 98.30 Forehead Scan 94.00 % 84.00/ min 18.00/min
--- OUTSIDE RECORDS SUMMARY | 2023-12-14 | External Medical Summary | Continuity Of Care Document ---
Author Name Unknown Address [address] [place] [address] Organization [facility] [place] () Care Team Providers Care Burn Out Scarfing Operator Name Role Phone DO Parson Amy Primary Care Provider [phone] Allergies Allergy Reaction Start Date End Date [...] 3 0.1 mL 11/13 Inactiv e 2023 26910 42390 0 1 time Intrad ermal False Tubersol 5 tub. unit/0.1 mL intradermal injection solution [Tuberculin PPD] 0.1mL Intradermal 1 time For PPD 2nd Step Give 2nd Step PPD Day 1 and Read results Day 3 (schedule 7 days after 1st READ) 0.1mL 11/13 Inactiv e 2023 42698 61095 0 1 time Intrad ermal False DISCONTINUE as of 11/14/2023: Tubersol 5 tub. unit/0.1 mL intradermal injection solution [Tuberculin PPD] 11/13 Inactiv e 2023 13814 92839 0 Tubersol 5 tub. unit/0.1 mL intradermal injection solution 0.1 mL Intradermal 1 time For PPD Step 1 GIVE on Day 1 and read results Day 3 0.1 mL 11/16 Active 2023 72600 84743 1 1 time Intrad ermal False DISCONTINUE as of 11/14/2023: Tubersol 5 tub. unit/0.1 mL intradermal injection solution [Tuberculin PPD] 11/13 Inactiv e 2023 19883 74469 0 Tubersol 5 tub. unit/0.1 mL intradermal injection solution 0.1mL Intradermal 1 time For PPD 2nd Step Give 2nd Step PPD Day 1 and Read results Day 3 (schedule 7 days after 1st READ) 0.1mL 11/25 Active 2023 41009 51605 1 1 time Intrad ermal False Tylenol 325 mg tablet 2 tabs By Mouth Every 4 hours as needed For Pain DO NOT EXCEED 3000 MG APAP/24 Hours 2 tabs 2023 Active 2023 03075 59121 0 Every 4 hours as needed By Mouth False Tylenol 325 mg tablet 2 tabs By Mouth Every 4 hours as needed For Fever >100 DO NOT EXCEED 3000 MG APAP/24 Hours 2 tabs 202300 Active 2023 48025 86657 0 Every 4 hours as needed By Mouth False Dulcolax (bisacodyl) 10 mg rectal suppository One Suppository per rectum PRN if Milk of Magnisia ineffective. Give on day 5 of no BM 1 sup 2023 Active 2023 02672 24081 1 Daily as needed Rectal False Fleet Enema 19 gram-7 gram/118 mL Administer per rectum PRN one time if dulcolax suppository not effective. Give on day 6 of no BM 1 202300 Active 2023 61114 05816 6 Daily as needed Rectal False Dextrose 50 % in water (D50W) intravenous solution [generic] Dextrose 50% reyes 20-50 ml (slow push) Intravenous if Glucagon not effective after 15 minutes. CALL 911 for ED Evaluation. 50% reyes 202300 0000 Active 2023 49585 43524 9 Intrav enous False Glucagon (HCl) Emergency Kit 1 mg solution for injection Administer Glucagon 1 mg Intramuscular if 15 minutes after GLucose Gel is administered Glucose remains less than 70 1 mg 2023 Active 2023 93021 91910 2 Intram uscula r False Glucose Gel 40 % oral gel [Dextrose] PRN If resident is unable to swallow (with or without symptoms) and Glucose results less than 70 give GLucose 40% Gel 1 tube orally - Recheck Glucose 15 minutes after administratio n. 1 tube 2023 Active 2023 80943 55606 8 By Mouth False Lorazepam 0.5 mg tablet [generic] 0.5 mg By Mouth Every 8 hours as needed For Anxiety 0.5 mg 2023 Active 2023 89388 65635 0 Every 8 hours as needed By Mouth False Potassium chloride ER 20 mEq tablet,exte nded release [generic] 40 meq By Mouth Once daily For Hypokalemia 40 meq 11/13 Inactiv e 2023 21023 70985 1 Once daily By Mouth False Colesevelam 625 mg tablet [generic] 1250 mg By Mouth Twice daily For TYPE 2 DIABETES MELLITUS WITHOUT COMPLICATIONS 1250 mg 2023 Active 2023 39587 75957 1 Twice daily By Mouth E11.9 False Pioglitazon e 15 mg tablet [generic] 15 mg By Mouth Once daily For TYPE 2 DIABETES MELLITUS WITHOUT COMPLICATIONS 15 mg 2023 Active 2023 86712 52615 1 Once daily By Mouth E11.9 False Cholecalcif hardeep (vitamin D3) 50 mcg (2,000 unit) tablet [generic] 50 mcg By Mouth Once daily For Supplement 50 mcg 2023 Active 2023 05157 91025 1 Once daily By Mouth False Colchicine 0.6 mg tablet [generic] 0.6 mg By Mouth Twice daily As Needed For Gout 0.6 mg 2023 Active 2023 20450 92666 4 Twice daily By Mouth False Levothyroxi ne 200 mcg tablet [generic] 200 mcg By Mouth Once daily For Hypothyroidis m 200 mcg 2023 Active 2023 47759 94184 0 Once daily By Mouth False Ondansetron 4 mg disintegrat ing tablet [generic] 4 mg By Mouth Every 6 hours as needed For Nausea 4 mg 11/12 Inactiv e 2023 23730 88764 4 Every 6 hours as needed By Mouth False Docusate sodium 100 mg capsule [generic] 100 mg By Mouth Twice daily For Constipation 100 mg 2023 Active 2023 24318 58397 1 Twice daily By Mouth False Oxycodone 5 mg tablet [generic] 5 mg By Mouth Every 6 hours as needed For Pain 5 mg 11/12 Inactiv e 2023 91707 85775 1 Every 6 hours as needed By Mouth False Oxycodone 5 mg tablet [generic] 5 mg By Mouth Every 6 hours as needed For Pain 5 mg 2023 Active 2023 87863 83094 1 Every 6 hours as needed By Mouth False Milk of Magnesia 400 mg/5 mL oral suspension 30 ml By Mouth one time per day as needed if no BM x 3 days For Constipation 30 ml 2023 Active 2023 58959 62326 2 By Mouth False Ondansetron 4 mg disintegrat ing tablet [generic] 11/12 Inactiv e 2023 02008 02976 4 Ondansetron 4 mg disintegrat ing tablet [generic] 4 mg By Mouth Every 6 hours as needed For Nausea 4 mg 11/14 Inactiv e 2023 74927 97473 4 Every 6 hours as needed By Mouth False Potassium chloride ER 10 mEq capsule,ext ended release [generic] 40 mEq By Mouth Once daily For hypokalemia 40 mEq 202300 Active 2023 09782 69450 1 Once daily By Mouth False Potassium chloride ER 10 mEq capsule,ext ended release [generic] 4 capsules By Mouth At bedtime For hypokalemia 4 capsule s 11/16 Active 2023 25285 60243 1 At bedtime By Mouth False Flomax 0.4 mg capsule 0.4 mg By Mouth At bedtime For Urinary retention 0.4 mg 2023 Active 2023 74255 06463 1 At bedtime By Mouth False STOOL CULTURE Once daily Obtain stool culture, add C. Diff to routine stool culture For Rule out C. Diff 1x 2023 Active 2023 Once daily Other False Butrans 5 mcg/hour transdermal patch 1 patch Transdermal Every 7 Days For Pain 1 patch 2023 Active 2023 04962 85738 4 Every week Transd ermal False Pantoprazol e 40 mg tablet,nu yed release [generic] 40 mg By Mouth Twice daily For gerd 40 mg 2023 Active 2023 83059 51282 0 Twice daily By Mouth False Scopolamine 1 mg over 3 days transdermal patch [generic] 1 Transdermal Every 72 hours For nausea 1 11/21 Active 2023 20124 29042 4 Every 72 hours Transd ermal False Ondansetron 4 mg disintegrat ing tablet [generic] 11/14 Inactiv e 2023 74217 90376 4 Ondansetron 4 mg disintegrat ing tablet [generic] 4 mg By Mouth Every 8 hours For Nausea 4 mg 2023 Active 2023 23740 52653 4 Every 8 hours By Mouth False Miralax 17 gram oral powder packet 8.5 g (1/2 capful) By Mouth Once daily For constipation 8.5 g 2023 Active 2023 29486 10505 6 Once daily By Mouth False Problems Code [...] Temperature SpO2 Blood Sugar Pulse Respirations 918 95500 5 75.00 mm[Hg] - Sitting 140.00 mm[Hg] - Sitting 65 NI 98.00 Tympanic 95.00 % 102.00 /min 18.00/min 918 22148 9 918 90404 2 75.00 mm[Hg] - Sitting 140.00 mm[Hg] - Sitting 98.00 Tympanic 102.00 /min 18.00/min 27788 918 68585 3 90754 918 09928 1 72.00 mm[Hg] - Sitting 138.00 mm[Hg] - Sitting 98.40 Tympanic 43447 918 22290 4 88.00/ min 18.00/min 23461 919 55280 4 71.00 mm[Hg] - Sitting 115.00 mm[Hg] - Sitting 98.30 Tympanic 97.00 % 86.00/ min 16.00/min 52721 919 49468 0 71.00 mm[Hg] - Sitting 115.00 mm[Hg] - Sitting 98.30 Tympanic 86.00/ min 16.00/min 919 58789 7 71.00 mm[Hg] - Sitting 115.00 mm[Hg] - Sitting 98.30 Tympanic 86.00/ min 16.00/min 920 18138 6 72.00 mm[Hg] - Sitting 112.00 mm[Hg] - Sitting 98.10 Tympanic 82.00/ min 18.00/min 920 71613 0 75.00 mm[Hg] - Sitting 130.00 mm[Hg] - Sitting 98.40 Forehead Scan 93.00 % 88.00/ min 18.00/min 920 58932 2 75.00 mm[Hg] - Lying Down 130.00 mm[Hg] - Lying Down 98.40 Tympanic 88.00/ min 18.00/min
--- OUTSIDE RECORDS SUMMARY | 2023-12-14 00:01 | External Medical Summary | Continuity Of Care Document ---
Author Name Unknown Address [address] [place] [address] Organization [facility] () Care Team Providers Care Real Estate Representative Name Role Phone DO Parson Amy Primary Care Provider [phone] Allergies Allergy Reaction Start Date End Date [...] 3 0.1 mL 11/13 Inactiv e 2023 96348 92145 0 1 time Intrad ermal False Tubersol 5 tub. unit/0.1 mL intradermal injection solution [Tuberculin PPD] 0.1mL Intradermal 1 time For PPD 2nd Step Give 2nd Step PPD Day 1 and Read results Day 3 (schedule 7 days after 1st READ) 0.1mL 11/13 Inactiv e 2023 75385 80718 0 1 time Intrad ermal False DISCONTINUE as of 11/14/2023: Tubersol 5 tub. unit/0.1 mL intradermal injection solution [Tuberculin PPD] 11/13 Inactiv e 2023 81255 75043 0 Tubersol 5 tub. unit/0.1 mL intradermal injection solution 0.1 mL Intradermal 1 time For PPD Step 1 GIVE on Day 1 and read results Day 3 0.1 mL 11/16 Active 2023 55856 71235 1 1 time Intrad ermal False DISCONTINUE as of 11/14/2023: Tubersol 5 tub. unit/0.1 mL intradermal injection solution [Tuberculin PPD] 11/13 Inactiv e 2023 98412 23794 0 Tubersol 5 tub. unit/0.1 mL intradermal injection solution 0.1mL Intradermal 1 time For PPD 2nd Step Give 2nd Step PPD Day 1 and Read results Day 3 (schedule 7 days after 1st READ) 0.1mL 11/25 Active 2023 70862 71218 1 1 time Intrad ermal False Tylenol 325 mg tablet 2 tabs By Mouth Every 4 hours as needed For Pain DO NOT EXCEED 3000 MG APAP/24 Hours 2 tabs 2023 Active 2023 19837 52689 0 Every 4 hours as needed By Mouth False Tylenol 325 mg tablet 2 tabs By Mouth Every 4 hours as needed For Fever >100 DO NOT EXCEED 3000 MG APAP/24 Hours 2 tabs 202300 Active 2023 58124 68954 0 Every 4 hours as needed By Mouth False Dulcolax (bisacodyl) 10 mg rectal suppository One Suppository per rectum PRN if Milk of Magnisia ineffective. Give on day 5 of no BM 1 sup 2023 Active 2023 13438 98200 1 Daily as needed Rectal False Fleet Enema 19 gram-7 gram/118 mL Administer per rectum PRN one time if dulcolax suppository not effective. Give on day 6 of no BM 1 202300 Active 2023 94536 26470 6 Daily as needed Rectal False Dextrose 50 % in water (D50W) intravenous solution [generic] Dextrose 50% reyes 20-50 ml (slow push) Intravenous if Glucagon not effective after 15 minutes. CALL 911 for ED Evaluation. 50% reyes 202300 0000 Active 2023 96824 75258 9 Intrav enous False Glucagon (HCl) Emergency Kit 1 mg solution for injection Administer Glucagon 1 mg Intramuscular if 15 minutes after GLucose Gel is administered Glucose remains less than 70 1 mg 2023 Active 2023 57399 64440 2 Intram uscula r False Glucose Gel 40 % oral gel [Dextrose] PRN If resident is unable to swallow (with or without symptoms) and Glucose results less than 70 give GLucose 40% Gel 1 tube orally - Recheck Glucose 15 minutes after administratio n. 1 tube 2023 Active 2023 50137 74061 8 By Mouth False Lorazepam 0.5 mg tablet [generic] 0.5 mg By Mouth Every 8 hours as needed For Anxiety 0.5 mg 2023 Active 2023 24281 41779 0 Every 8 hours as needed By Mouth False Potassium chloride ER 20 mEq tablet,exte nded release [generic] 40 meq By Mouth Once daily For Hypokalemia 40 meq 11/13 Inactiv e 2023 11858 71093 1 Once daily By Mouth False Colesevelam 625 mg tablet [generic] 1250 mg By Mouth Twice daily For TYPE 2 DIABETES MELLITUS WITHOUT COMPLICATIONS 1250 mg 2023 Active 2023 39680 89146 1 Twice daily By Mouth E11.9 False Pioglitazon e 15 mg tablet [generic] 15 mg By Mouth Once daily For TYPE 2 DIABETES MELLITUS WITHOUT COMPLICATIONS 15 mg 2023 Active 2023 75355 10912 1 Once daily By Mouth E11.9 False Cholecalcif hardeep (vitamin D3) 50 mcg (2,000 unit) tablet [generic] 50 mcg By Mouth Once daily For Supplement 50 mcg 2023 Active 2023 94833 52566 1 Once daily By Mouth False Colchicine 0.6 mg tablet [generic] 0.6 mg By Mouth Twice daily As Needed For Gout 0.6 mg 2023 Active 2023 59544 45790 4 Twice daily By Mouth False Levothyroxi ne 200 mcg tablet [generic] 200 mcg By Mouth Once daily For Hypothyroidis m 200 mcg 2023 Active 2023 22176 19175 0 Once daily By Mouth False Ondansetron 4 mg disintegrat ing tablet [generic] 4 mg By Mouth Every 6 hours as needed For Nausea 4 mg 11/12 Inactiv e 2023 72419 54913 4 Every 6 hours as needed By Mouth False Docusate sodium 100 mg capsule [generic] 100 mg By Mouth Twice daily For Constipation 100 mg 2023 Active 2023 53532 84770 1 Twice daily By Mouth False Oxycodone 5 mg tablet [generic] 5 mg By Mouth Every 6 hours as needed For Pain 5 mg 11/12 Inactiv e 2023 30870 14461 1 Every 6 hours as needed By Mouth False Oxycodone 5 mg tablet [generic] 5 mg By Mouth Every 6 hours as needed For Pain 5 mg 2023 Active 2023 82808 40039 1 Every 6 hours as needed By Mouth False Milk of Magnesia 400 mg/5 mL oral suspension 30 ml By Mouth one time per day as needed if no BM x 3 days For Constipation 30 ml 2023 Active 2023 56105 52496 2 By Mouth False Ondansetron 4 mg disintegrat ing tablet [generic] 11/12 Inactiv e 2023 53894 14291 4 Ondansetron 4 mg disintegrat ing tablet [generic] 4 mg By Mouth Every 6 hours as needed For Nausea 4 mg 2023 Active 2023 79182 56457 4 Every 6 hours as needed By Mouth False Potassium chloride ER 10 mEq capsule,ext ended release [generic] 40 mEq By Mouth Once daily For hypokalemia 40 mEq 2023 Active 2023 01256 29965 1 Once daily By Mouth False Potassium chloride ER 10 mEq capsule,ext ended release [generic] 4 capsules By Mouth At bedtime For hypokalemia 4 capsule s 11/16 Active 2023 58539 12188 1 At bedtime By Mouth False Flomax 0.4 mg capsule 0.4 mg By Mouth At bedtime For Urinary retention 0.4 mg 2023 Active 2023 74152 92778 1 At bedtime By Mouth False STOOL CULTURE Once daily Obtain stool culture, add C. Diff to routine stool culture For Rule out C. Diff 1x 2023 Active 2023 Once daily Other False Butrans 5 mcg/hour transdermal patch 1 patch Transdermal Every 7 Days For Pain 1 patch 2023 Active 2023 05719 89233 4 Every week Transd ermal False Problems [...] Temperature SpO2 Blood Sugar Pulse Respirations 918 21999 5 75.00 mm[Hg] - Sitting 140.00 mm[Hg] - Sitting 65 NI 98.00 Tympanic 95.00 % 102.00 /min 18.00/min 70468 918 30306 9 11400 918 88539 2 75.00 mm[Hg] - Sitting 140.00 mm[Hg] - Sitting 98.00 Tympanic 102.00 /min 18.00/min 83127 918 67154 3 64982 918 88538 1 72.00 mm[Hg] - Sitting 138.00 mm[Hg] - Sitting 98.40 Tympanic 88788 918 62392 4 88.00/ min 18.00/min 919 03920 4 71.00 mm[Hg] - Sitting 115.00 mm[Hg] - Sitting 98.30 Tympanic 97.00 % 86.00/ min 16.00/min 17116 919 58695 0 71.00 mm[Hg] - Sitting 115.00 mm[Hg] - Sitting 98.30 Tympanic 86.00/ min 16.00/min 919 37945 7 71.00 mm[Hg] - Sitting 115.00 mm[Hg] - Sitting 98.30 Tympanic 86.00/ min 16.00/min 25089 920 84215 6 72.00 mm[Hg] - Sitting 112.00 mm[Hg] - Sitting 98.10 Tympanic 82.00/ min 18.00/min 63846 920 76278 0 75.00 mm[Hg] - Sitting 130.00 mm[Hg] - Sitting 98.40 Forehead Scan 93.00 % 88.00/ min 18.00/min 920 67549 2 75.00 mm[Hg] - Lying Down 130.00 mm[Hg] - Lying Down 98.40 Tympanic 88.00/ min 18.00/min
--- OUTSIDE RECORDS SUMMARY | 2023-12-14 00:01 | External Medical Summary | Continuity Of Care Document ---
Author Name Unknown Address [address] [place] [address] Organization [facility] () Care Team Providers Care Fusion Operator Name Role Phone DO Parson Amy Primary Care Provider [phone] Allergies Allergy Reaction Start Date End Date [...] 3 0.1 mL 11/13 Inactiv e 2023 33927 39783 0 1 time Intrad ermal False Tubersol 5 tub. unit/0.1 mL intradermal injection solution [Tuberculin PPD] 0.1mL Intradermal 1 time For PPD 2nd Step Give 2nd Step PPD Day 1 and Read results Day 3 (schedule 7 days after 1st READ) 0.1mL 11/13 Inactiv e 2023 45526 47384 0 1 time Intrad ermal False DISCONTINUE as of 11/14/2023: Tubersol 5 tub. unit/0.1 mL intradermal injection solution [Tuberculin PPD] 11/13 Inactiv e 2023 56020 52203 0 Tubersol 5 tub. unit/0.1 mL intradermal injection solution 0.1 mL Intradermal 1 time For PPD Step 1 GIVE on Day 1 and read results Day 3 0.1 mL 11/16 Active 2023 21549 78377 1 1 time Intrad ermal False DISCONTINUE as of 11/14/2023: Tubersol 5 tub. unit/0.1 mL intradermal injection solution [Tuberculin PPD] 11/13 Inactiv e 2023 08142 55286 0 Tubersol 5 tub. unit/0.1 mL intradermal injection solution 0.1mL Intradermal 1 time For PPD 2nd Step Give 2nd Step PPD Day 1 and Read results Day 3 (schedule 7 days after 1st READ) 0.1mL 11/25 Active 2023 42625 48791 1 1 time Intrad ermal False Tylenol 325 mg tablet 2 tabs By Mouth Every 4 hours as needed For Pain DO NOT EXCEED 3000 MG APAP/24 Hours 2 tabs 2023 Active 2023 72129 79245 0 Every 4 hours as needed By Mouth False Tylenol 325 mg tablet 2 tabs By Mouth Every 4 hours as needed For Fever >100 DO NOT EXCEED 3000 MG APAP/24 Hours 2 tabs 202300 Active 2023 38189 52404 0 Every 4 hours as needed By Mouth False Dulcolax (bisacodyl) 10 mg rectal suppository One Suppository per rectum PRN if Milk of Magnisia ineffective. Give on day 5 of no BM 1 sup 2023 Active 2023 39234 75013 1 Daily as needed Rectal False Fleet Enema 19 gram-7 gram/118 mL Administer per rectum PRN one time if dulcolax suppository not effective. Give on day 6 of no BM 1 202300 Active 2023 39599 45434 6 Daily as needed Rectal False Dextrose 50 % in water (D50W) intravenous solution [generic] Dextrose 50% reyes 20-50 ml (slow push) Intravenous if Glucagon not effective after 15 minutes. CALL 911 for ED Evaluation. 50% reyes 202300 0000 Active 2023 65513 56046 9 Intrav enous False Glucagon (HCl) Emergency Kit 1 mg solution for injection Administer Glucagon 1 mg Intramuscular if 15 minutes after GLucose Gel is administered Glucose remains less than 70 1 mg 2023 Active 2023 54798 38410 2 Intram uscula r False Glucose Gel 40 % oral gel [Dextrose] PRN If resident is unable to swallow (with or without symptoms) and Glucose results less than 70 give GLucose 40% Gel 1 tube orally - Recheck Glucose 15 minutes after administratio n. 1 tube 2023 Active 2023 61534 95616 8 By Mouth False Lorazepam 0.5 mg tablet [generic] 0.5 mg By Mouth Every 8 hours as needed For Anxiety 0.5 mg 2023 Active 2023 82449 14522 0 Every 8 hours as needed By Mouth False Potassium chloride ER 20 mEq tablet,exte nded release [generic] 40 meq By Mouth Once daily For Hypokalemia 40 meq 11/13 Inactiv e 2023 81103 82060 1 Once daily By Mouth False Colesevelam 625 mg tablet [generic] 1250 mg By Mouth Twice daily For TYPE 2 DIABETES MELLITUS WITHOUT COMPLICATIONS 1250 mg 2023 Active 2023 08847 28901 1 Twice daily By Mouth E11.9 False Pioglitazon e 15 mg tablet [generic] 15 mg By Mouth Once daily For TYPE 2 DIABETES MELLITUS WITHOUT COMPLICATIONS 15 mg 2023 Active 2023 87675 38440 1 Once daily By Mouth E11.9 False Cholecalcif hardeep (vitamin D3) 50 mcg (2,000 unit) tablet [generic] 50 mcg By Mouth Once daily For Supplement 50 mcg 2023 Active 2023 94777 44061 1 Once daily By Mouth False Colchicine 0.6 mg tablet [generic] 0.6 mg By Mouth Twice daily As Needed For Gout 0.6 mg 2023 Active 2023 56998 91387 4 Twice daily By Mouth False Levothyroxi ne 200 mcg tablet [generic] 200 mcg By Mouth Once daily For Hypothyroidis m 200 mcg 2023 Active 2023 38501 68334 0 Once daily By Mouth False Ondansetron 4 mg disintegrat ing tablet [generic] 4 mg By Mouth Every 6 hours as needed For Nausea 4 mg 11/12 Inactiv e 2023 02115 44846 4 Every 6 hours as needed By Mouth False Docusate sodium 100 mg capsule [generic] 100 mg By Mouth Twice daily For Constipation 100 mg 2023 Active 2023 52913 61377 1 Twice daily By Mouth False Oxycodone 5 mg tablet [generic] 5 mg By Mouth Every 6 hours as needed For Pain 5 mg 11/12 Inactiv e 2023 05175 89243 1 Every 6 hours as needed By Mouth False Oxycodone 5 mg tablet [generic] 5 mg By Mouth Every 6 hours as needed For Pain 5 mg 2023 Active 2023 29522 98690 1 Every 6 hours as needed By Mouth False Milk of Magnesia 400 mg/5 mL oral suspension 30 ml By Mouth one time per day as needed if no BM x 3 days For Constipation 30 ml 2023 Active 2023 28624 27995 2 By Mouth False Ondansetron 4 mg disintegrat ing tablet [generic] 11/12 Inactiv e 2023 87571 33400 4 Ondansetron 4 mg disintegrat ing tablet [generic] 4 mg By Mouth Every 6 hours as needed For Nausea 4 mg 2023 Active 2023 45698 61065 4 Every 6 hours as needed By Mouth False Potassium chloride ER 10 mEq capsule,ext ended release [generic] 40 mEq By Mouth Once daily For hypokalemia 40 mEq 2023 Active 2023 61384 69163 1 Once daily By Mouth False Potassium chloride ER 10 mEq capsule,ext ended release [generic] 4 capsules By Mouth At bedtime For hypokalemia 4 capsule s 11/16 Active 2023 56151 50659 1 At bedtime By Mouth False Flomax 0.4 mg capsule 0.4 mg By Mouth At bedtime For Urinary retention 0.4 mg 2023 Active 2023 67440 25251 1 At bedtime By Mouth False STOOL [...] surgery on the nervous system 11/13/2023 Active VITAL SIGNS Date Time Diastolic blood pressure Systolic blood pressure Body height Body weight Temperature SpO2 Blood Sugar Pulse Respirations 8 13253 5 75.00 mm[Hg] - Sitting 140.00 mm[Hg] - Sitting 65 NI 98.00 Tympanic 95.00 % 102.00 /min 18.00/min 8 40184 9 70607 918 61606 2 75.00 mm[Hg] - Sitting 140.00 mm[Hg] - Sitting 98.00 Tympanic 102.00 /min 18.00/min 94459 918 10750 3 88669 918 99522 1 72.00 mm[Hg] - Sitting 138.00 mm[Hg] - Sitting 98.40 Tympanic 39280 8 30775 4 88.00/ min 18.00/min 919 61618 4 71.00 mm[Hg] - Sitting 115.00 mm[Hg] - Sitting 98.30 Tympanic 97.00 % 86.00/ min 16.00/min 14450 919 25684 0 71.00 mm[Hg] - Sitting 115.00 mm[Hg] - Sitting 98.30 Tympanic 86.00/ min 16.00/min 64879 919 29051 7 71.00 mm[Hg] - Sitting 115.00 mm[Hg] - Sitting 98.30 Tympanic 86.00/ min 16.00/min
--- OUTSIDE RECORDS SUMMARY | 2023-12-14 00:01 | External Medical Summary | Continuity Of Care Document ---
Author Name Unknown Address [address] [place] [address] Organization [facility] () Care Team Providers Care Ware Server Name Role Phone DO Parson Amy Primary Care Provider [phone] Allergies Allergy Reaction Start Date End Date [...] 3 0.1 mL 11/13 Inactiv e 2023 52707 59093 0 1 time Intrad ermal False Tubersol 5 tub. unit/0.1 mL intradermal injection solution [Tuberculin PPD] 0.1mL Intradermal 1 time For PPD 2nd Step Give 2nd Step PPD Day 1 and Read results Day 3 (schedule 7 days after 1st READ) 0.1mL 11/13 Inactiv e 2023 93251 78828 0 1 time Intrad ermal False DISCONTINUE as of 11/14/2023: Tubersol 5 tub. unit/0.1 mL intradermal injection solution [Tuberculin PPD] 11/13 Inactiv e 2023 99940 07505 0 Tubersol 5 tub. unit/0.1 mL intradermal injection solution 0.1 mL Intradermal 1 time For PPD Step 1 GIVE on Day 1 and read results Day 3 0.1 mL 11/16 Active 2023 05329 33846 1 1 time Intrad ermal False DISCONTINUE as of 11/14/2023: Tubersol 5 tub. unit/0.1 mL intradermal injection solution [Tuberculin PPD] 11/13 Inactiv e 2023 09266 36650 0 Tubersol 5 tub. unit/0.1 mL intradermal injection solution 0.1mL Intradermal 1 time For PPD 2nd Step Give 2nd Step PPD Day 1 and Read results Day 3 (schedule 7 days after 1st READ) 0.1mL 11/25 Active 2023 07270 29808 1 1 time Intrad ermal False Tylenol 325 mg tablet 2 tabs By Mouth Every 4 hours as needed For Pain DO NOT EXCEED 3000 MG APAP/24 Hours 2 tabs 2023 Active 2023 47373 92129 0 Every 4 hours as needed By Mouth False Tylenol 325 mg tablet 2 tabs By Mouth Every 4 hours as needed For Fever >100 DO NOT EXCEED 3000 MG APAP/24 Hours 2 tabs 202300 Active 2023 44141 85370 0 Every 4 hours as needed By Mouth False Dulcolax (bisacodyl) 10 mg rectal suppository One Suppository per rectum PRN if Milk of Magnisia ineffective. Give on day 5 of no BM 1 sup 2023 Active 2023 01842 70861 1 Daily as needed Rectal False Fleet Enema 19 gram-7 gram/118 mL Administer per rectum PRN one time if dulcolax suppository not effective. Give on day 6 of no BM 1 202300 Active 2023 93111 28134 6 Daily as needed Rectal False Dextrose 50 % in water (D50W) intravenous solution [generic] Dextrose 50% reyes 20-50 ml (slow push) Intravenous if Glucagon not effective after 15 minutes. CALL 911 for ED Evaluation. 50% reyes 202300 0000 Active 2023 90338 98698 9 Intrav enous False Glucagon (HCl) Emergency Kit 1 mg solution for injection Administer Glucagon 1 mg Intramuscular if 15 minutes after GLucose Gel is administered Glucose remains less than 70 1 mg 2023 Active 2023 58324 37434 2 Intram uscula r False Glucose Gel 40 % oral gel [Dextrose] PRN If resident is unable to swallow (with or without symptoms) and Glucose results less than 70 give GLucose 40% Gel 1 tube orally - Recheck Glucose 15 minutes after administratio n. 1 tube 2023 Active 2023 64544 71681 8 By Mouth False Lorazepam 0.5 mg tablet [generic] 0.5 mg By Mouth Every 8 hours as needed For Anxiety 0.5 mg 2023 Active 2023 55464 30398 0 Every 8 hours as needed By Mouth False Potassium chloride ER 20 mEq tablet,exte nded release [generic] 40 meq By Mouth Once daily For Hypokalemia 40 meq 11/13 Inactiv e 2023 46511 10536 1 Once daily By Mouth False Colesevelam 625 mg tablet [generic] 1250 mg By Mouth Twice daily For TYPE 2 DIABETES MELLITUS WITHOUT COMPLICATIONS 1250 mg 2023 Active 2023 44143 27976 1 Twice daily By Mouth E11.9 False Pioglitazon e 15 mg tablet [generic] 15 mg By Mouth Once daily For TYPE 2 DIABETES MELLITUS WITHOUT COMPLICATIONS 15 mg 2023 Active 2023 29482 19778 1 Once daily By Mouth E11.9 False Cholecalcif hardeep (vitamin D3) 50 mcg (2,000 unit) tablet [generic] 50 mcg By Mouth Once daily For Supplement 50 mcg 2023 Active 2023 15030 97229 1 Once daily By Mouth False Colchicine 0.6 mg tablet [generic] 0.6 mg By Mouth Twice daily As Needed For Gout 0.6 mg 2023 Active 2023 00601 19243 4 Twice daily By Mouth False Levothyroxi ne 200 mcg tablet [generic] 200 mcg By Mouth Once daily For Hypothyroidis m 200 mcg 2023 Active 2023 69136 67558 0 Once daily By Mouth False Ondansetron 4 mg disintegrat ing tablet [generic] 4 mg By Mouth Every 6 hours as needed For Nausea 4 mg 11/12 Inactiv e 2023 46530 44679 4 Every 6 hours as needed By Mouth False Docusate sodium 100 mg capsule [generic] 100 mg By Mouth Twice daily For Constipation 100 mg 2023 Active 2023 53638 56625 1 Twice daily By Mouth False Oxycodone 5 mg tablet [generic] 5 mg By Mouth Every 6 hours as needed For Pain 5 mg 11/12 Inactiv e 2023 74319 58207 1 Every 6 hours as needed By Mouth False Oxycodone 5 mg tablet [generic] 5 mg By Mouth Every 6 hours as needed For Pain 5 mg 2023 Active 2023 79526 10951 1 Every 6 hours as needed By Mouth False Milk of Magnesia 400 mg/5 mL oral suspension 30 ml By Mouth one time per day as needed if no BM x 3 days For Constipation 30 ml 2023 Active 2023 42045 18682 2 By Mouth False Ondansetron 4 mg disintegrat ing tablet [generic] 11/12 Inactiv e 2023 60342 47149 4 Ondansetron 4 mg disintegrat ing tablet [generic] 4 mg By Mouth Every 6 hours as needed For Nausea 4 mg 11/14 Inactiv e 2023 83022 31680 4 Every 6 hours as needed By Mouth False Potassium chloride ER 10 mEq capsule,ext ended release [generic] 40 mEq By Mouth Once daily For hypokalemia 40 mEq 202300 Active 2023 84948 47094 1 Once daily By Mouth False Potassium chloride ER 10 mEq capsule,ext ended release [generic] 4 capsules By Mouth At bedtime For hypokalemia 4 capsule s 11/16 Active 2023 86046 56236 1 At bedtime By Mouth False Flomax 0.4 mg capsule 0.4 mg By Mouth At bedtime For Urinary retention 0.4 mg 2023 Active 2023 63944 09494 1 At bedtime By Mouth False STOOL CULTURE Once daily Obtain stool culture, add C. Diff to routine stool culture For Rule out C. Diff 1x 2023 Active 2023 Once daily Other False Butrans 5 mcg/hour transdermal patch 1 patch Transdermal Every 7 Days For Pain 1 patch 2023 Active 2023 90241 27873 4 Every week Transd ermal False Pantoprazol e 40 mg tablet,nu yed release [generic] 40 mg By Mouth Twice daily For gerd 40 mg 2023 Active 2023 23916 96132 0 Twice daily By Mouth False Scopolamine 1 mg over 3 days transdermal patch [generic] 1 Transdermal Every 72 hours For nausea 1 11/21 Active 2023 48682 78982 4 Every 72 hours Transd ermal False Ondansetron 4 mg disintegrat ing tablet [generic] 11/14 Inactiv e 2023 76067 35479 4 Ondansetron 4 mg disintegrat ing tablet [generic] 4 mg By Mouth Every 8 hours For Nausea 4 mg 2023 Active 2023 60228 98655 4 Every 8 hours By Mouth False Miralax 17 gram oral powder packet 8.5 g (1/2 capful) By Mouth Once daily For constipation 8.5 g 2023 Active 2023 74929 40473 6 Once daily By Mouth False Problems [...] Temperature SpO2 Blood Sugar Pulse Respirations 918 91756 5 75.00 mm[Hg] - Sitting 140.00 mm[Hg] - Sitting 65 NI 98.00 Tympanic 95.00 % 102.00 /min 18.00/min 918 99653 9 918 01079 2 75.00 mm[Hg] - Sitting 140.00 mm[Hg] - Sitting 98.00 Tympanic 102.00 /min 18.00/min 27545 918 49228 3 47413 918 11944 1 72.00 mm[Hg] - Sitting 138.00 mm[Hg] - Sitting 98.40 Tympanic 33951 918 24152 4 88.00/ min 18.00/min 01899 919 79543 4 71.00 mm[Hg] - Sitting 115.00 mm[Hg] - Sitting 98.30 Tympanic 97.00 % 86.00/ min 16.00/min 82177 919 46018 0 71.00 mm[Hg] - Sitting 115.00 mm[Hg] - Sitting 98.30 Tympanic 86.00/ min 16.00/min 919 36758 7 71.00 mm[Hg] - Sitting 115.00 mm[Hg] - Sitting 98.30 Tympanic 86.00/ min 16.00/min 920 44968 6 72.00 mm[Hg] - Sitting 112.00 mm[Hg] - Sitting 98.10 Tympanic 82.00/ min 18.00/min 920 30014 0 75.00 mm[Hg] - Sitting 130.00 mm[Hg] - Sitting 98.40 Forehead Scan 93.00 % 88.00/ min 18.00/min 920 37234 2 75.00 mm[Hg] - Lying Down 130.00 mm[Hg] - Lying Down 98.40 Tympanic 88.00/ min 18.00/min 920 34383 5 75.00 mm[Hg] - Lying Down 130.00 mm[Hg] - Lying Down 98.40 Tympanic 88.00/ min 18.00/min
--- OUTSIDE RECORDS SUMMARY | 2023-12-14 00:01 | External Medical Summary | Continuity Of Care Document ---
Author Name Unknown Address [address] [place] [address] Organization [facility] [place] () Care Team Providers Care Yarding And Folding Machine Operator Name Role Phone DO Parson Amy Primary Care Provider [phone] Allergies Allergy Reaction Start Date End Date [...] 3 0.1 mL 11/13 Inactiv e 2023 52619 53027 0 1 time Intrad ermal False Tubersol 5 tub. unit/0.1 mL intradermal injection solution [Tuberculin PPD] 0.1mL Intradermal 1 time For PPD 2nd Step Give 2nd Step PPD Day 1 and Read results Day 3 (schedule 7 days after 1st READ) 0.1mL 11/13 Inactiv e 2023 52477 55118 0 1 time Intrad ermal False DISCONTINUE as of 11/14/2023: Tubersol 5 tub. unit/0.1 mL intradermal injection solution [Tuberculin PPD] 11/13 Inactiv e 2023 28071 69190 0 Tubersol 5 tub. unit/0.1 mL intradermal injection solution 0.1 mL Intradermal 1 time For PPD Step 1 GIVE on Day 1 and read results Day 3 0.1 mL 11/16 Active 2023 29194 21711 1 1 time Intrad ermal False DISCONTINUE as of 11/14/2023: Tubersol 5 tub. unit/0.1 mL intradermal injection solution [Tuberculin PPD] 11/13 Inactiv e 2023 98230 37393 0 Tubersol 5 tub. unit/0.1 mL intradermal injection solution 0.1mL Intradermal 1 time For PPD 2nd Step Give 2nd Step PPD Day 1 and Read results Day 3 (schedule 7 days after 1st READ) 0.1mL 11/25 Active 2023 78642 11072 1 1 time Intrad ermal False Tylenol 325 mg tablet 2 tabs By Mouth Every 4 hours as needed For Pain DO NOT EXCEED 3000 MG APAP/24 Hours 2 tabs 2023 Active 2023 48467 89291 0 Every 4 hours as needed By Mouth False Tylenol 325 mg tablet 2 tabs By Mouth Every 4 hours as needed For Fever >100 DO NOT EXCEED 3000 MG APAP/24 Hours 2 tabs 202300 Active 2023 15384 04551 0 Every 4 hours as needed By Mouth False Dulcolax (bisacodyl) 10 mg rectal suppository One Suppository per rectum PRN if Milk of Magnisia ineffective. Give on day 5 of no BM 1 sup 2023 Active 2023 24822 17307 1 Daily as needed Rectal False Fleet Enema 19 gram-7 gram/118 mL Administer per rectum PRN one time if dulcolax suppository not effective. Give on day 6 of no BM 1 202300 Active 2023 84372 45501 6 Daily as needed Rectal False Dextrose 50 % in water (D50W) intravenous solution [generic] Dextrose 50% reyes 20-50 ml (slow push) Intravenous if Glucagon not effective after 15 minutes. CALL 911 for ED Evaluation. 50% reyes 202300 0000 Active 2023 30064 84205 9 Intrav enous False Glucagon (HCl) Emergency Kit 1 mg solution for injection Administer Glucagon 1 mg Intramuscular if 15 minutes after GLucose Gel is administered Glucose remains less than 70 1 mg 2023 Active 2023 08815 66325 2 Intram uscula r False Glucose Gel 40 % oral gel [Dextrose] PRN If resident is unable to swallow (with or without symptoms) and Glucose results less than 70 give GLucose 40% Gel 1 tube orally - Recheck Glucose 15 minutes after administratio n. 1 tube 2023 Active 2023 39375 43682 8 By Mouth False Lorazepam 0.5 mg tablet [generic] 0.5 mg By Mouth Every 8 hours as needed For Anxiety 0.5 mg 2023 Active 2023 44386 57907 0 Every 8 hours as needed By Mouth False Potassium chloride ER 20 mEq tablet,exte nded release [generic] 40 meq By Mouth Once daily For Hypokalemia 40 meq 11/13 Inactiv e 2023 95970 54307 1 Once daily By Mouth False Colesevelam 625 mg tablet [generic] 1250 mg By Mouth Twice daily For TYPE 2 DIABETES MELLITUS WITHOUT COMPLICATIONS 1250 mg 2023 Active 2023 81805 24464 1 Twice daily By Mouth E11.9 False Pioglitazon e 15 mg tablet [generic] 15 mg By Mouth Once daily For TYPE 2 DIABETES MELLITUS WITHOUT COMPLICATIONS 15 mg 2023 Active 2023 70336 03605 1 Once daily By Mouth E11.9 False Cholecalcif hardeep (vitamin D3) 50 mcg (2,000 unit) tablet [generic] 50 mcg By Mouth Once daily For Supplement 50 mcg 2023 Active 2023 17364 35333 1 Once daily By Mouth False Colchicine 0.6 mg tablet [generic] 0.6 mg By Mouth Twice daily As Needed For Gout 0.6 mg 2023 Active 2023 11200 51277 4 Twice daily By Mouth False Levothyroxi ne 200 mcg tablet [generic] 200 mcg By Mouth Once daily For Hypothyroidis m 200 mcg 2023 Active 2023 26522 91019 0 Once daily By Mouth False Ondansetron 4 mg disintegrat ing tablet [generic] 4 mg By Mouth Every 6 hours as needed For Nausea 4 mg 11/12 Inactiv e 2023 74390 36802 4 Every 6 hours as needed By Mouth False Docusate sodium 100 mg capsule [generic] 100 mg By Mouth Twice daily For Constipation 100 mg 2023 Active 2023 67787 32255 1 Twice daily By Mouth False Oxycodone 5 mg tablet [generic] 5 mg By Mouth Every 6 hours as needed For Pain 5 mg 11/12 Inactiv e 2023 87123 46770 1 Every 6 hours as needed By Mouth False Oxycodone 5 mg tablet [generic] 5 mg By Mouth Every 6 hours as needed For Pain 5 mg 2023 Active 2023 99260 21171 1 Every 6 hours as needed By Mouth False Milk of Magnesia 400 mg/5 mL oral suspension 30 ml By Mouth one time per day as needed if no BM x 3 days For Constipation 30 ml 2023 Active 2023 49394 30630 2 By Mouth False Ondansetron 4 mg disintegrat ing tablet [generic] 11/12 Inactiv e 2023 02052 89274 4 Ondansetron 4 mg disintegrat ing tablet [generic] 4 mg By Mouth Every 6 hours as needed For Nausea 4 mg 2023 Active 2023 19104 98519 4 Every 6 hours as needed By Mouth False Potassium chloride ER 10 mEq capsule,ext ended release [generic] 40 mEq By Mouth Once daily For hypokalemia 40 mEq 2023 Active 2023 01300 12626 1 Once daily By Mouth False Potassium chloride ER 10 mEq capsule,ext ended release [generic] 4 capsules By Mouth At bedtime For hypokalemia 4 capsule s 11/16 Active 2023 11907 07702 1 At bedtime By Mouth False Flomax 0.4 mg capsule 0.4 mg By Mouth At bedtime For Urinary retention 0.4 mg 2023 Active 2023 21154 85043 1 At bedtime By Mouth False STOOL CULTURE Once daily Obtain stool culture, add C. Diff to routine stool culture For Rule out C. Diff 1x 2023 Active 2023 Once daily Other False Butrans 5 mcg/hour transdermal patch 1 patch Transdermal Every 7 Days For Pain 1 patch 2023 Active 2023 76180 35698 4 Every week Transd ermal False Pantoprazol e 40 mg tablet,nu yed release [generic] 40 mg By Mouth Twice daily For gerd 40 mg 2023 Active 2023 17083 90311 0 Twice daily By Mouth False Problems Code [...] Temperature SpO2 Blood Sugar Pulse Respirations 918 41849 5 75.00 mm[Hg] - Sitting 140.00 mm[Hg] - Sitting 65 NI 98.00 Tympanic 95.00 % 102.00 /min 18.00/min 64199 918 00539 9 30775 918 79816 2 75.00 mm[Hg] - Sitting 140.00 mm[Hg] - Sitting 98.00 Tympanic 102.00 /min 18.00/min 82371 918 07859 3 70082 918 15040 1 72.00 mm[Hg] - Sitting 138.00 mm[Hg] - Sitting 98.40 Tympanic 918 36912 4 88.00/ min 18.00/min 919 14898 4 71.00 mm[Hg] - Sitting 115.00 mm[Hg] - Sitting 98.30 Tympanic 97.00 % 86.00/ min 16.00/min 73777 919 55682 0 71.00 mm[Hg] - Sitting 115.00 mm[Hg] - Sitting 98.30 Tympanic 86.00/ min 16.00/min 87475 919 92948 7 71.00 mm[Hg] - Sitting 115.00 mm[Hg] - Sitting 98.30 Tympanic 86.00/ min 16.00/min 85862 920 02833 6 72.00 mm[Hg] - Sitting 112.00 mm[Hg] - Sitting 98.10 Tympanic 82.00/ min 18.00/min 06254 920 05738 0 75.00 mm[Hg] - Sitting 130.00 mm[Hg] - Sitting 98.40 Forehead Scan 93.00 % 88.00/ min 18.00/min 74694 920 23058 2 75.00 mm[Hg] - Lying Down 130.00 mm[Hg] - Lying Down 98.40 Tympanic 88.00/ min 18.00/min
--- OUTSIDE RECORDS SUMMARY | 2023-12-14 00:01 | External Medical Summary | Continuity Of Care Document ---
Author Name Unknown Address [address] [place] [address] Organization [facility] () Care Team Providers Care Heel Breaster Name Role Phone DO Parson Amy Primary Care Provider [phone] Allergies Allergy Reaction Start Date End Date [...] 3 0.1 mL 11/13 Inactiv e 2023 26171 36785 0 1 time Intrad ermal False Tubersol 5 tub. unit/0.1 mL intradermal injection solution [Tuberculin PPD] 0.1mL Intradermal 1 time For PPD 2nd Step Give 2nd Step PPD Day 1 and Read results Day 3 (schedule 7 days after 1st READ) 0.1mL 11/13 Inactiv e 2023 22636 15542 0 1 time Intrad ermal False DISCONTINUE as of 11/14/2023: Tubersol 5 tub. unit/0.1 mL intradermal injection solution [Tuberculin PPD] 11/13 Inactiv e 2023 11052 75831 0 Tubersol 5 tub. unit/0.1 mL intradermal injection solution 0.1 mL Intradermal 1 time For PPD Step 1 GIVE on Day 1 and read results Day 3 0.1 mL 11/16 Active 2023 31286 40837 1 1 time Intrad ermal False DISCONTINUE as of 11/14/2023: Tubersol 5 tub. unit/0.1 mL intradermal injection solution [Tuberculin PPD] 11/13 Inactiv e 2023 74479 75784 0 Tubersol 5 tub. unit/0.1 mL intradermal injection solution 0.1mL Intradermal 1 time For PPD 2nd Step Give 2nd Step PPD Day 1 and Read results Day 3 (schedule 7 days after 1st READ) 0.1mL 11/25 Active 2023 70139 13613 1 1 time Intrad ermal False Tylenol 325 mg tablet 2 tabs By Mouth Every 4 hours as needed For Pain DO NOT EXCEED 3000 MG APAP/24 Hours 2 tabs 2023 Active 2023 18260 52631 0 Every 4 hours as needed By Mouth False Tylenol 325 mg tablet 2 tabs By Mouth Every 4 hours as needed For Fever >100 DO NOT EXCEED 3000 MG APAP/24 Hours 2 tabs 202300 Active 2023 92245 78042 0 Every 4 hours as needed By Mouth False Dulcolax (bisacodyl) 10 mg rectal suppository One Suppository per rectum PRN if Milk of Magnisia ineffective. Give on day 5 of no BM 1 sup 2023 Active 2023 89869 55815 1 Daily as needed Rectal False Fleet Enema 19 gram-7 gram/118 mL Administer per rectum PRN one time if dulcolax suppository not effective. Give on day 6 of no BM 1 202300 Active 2023 59824 38068 6 Daily as needed Rectal False Dextrose 50 % in water (D50W) intravenous solution [generic] Dextrose 50% reyes 20-50 ml (slow push) Intravenous if Glucagon not effective after 15 minutes. CALL 911 for ED Evaluation. 50% reyes 202300 0000 Active 2023 72152 41651 9 Intrav enous False Glucagon (HCl) Emergency Kit 1 mg solution for injection Administer Glucagon 1 mg Intramuscular if 15 minutes after GLucose Gel is administered Glucose remains less than 70 1 mg 2023 Active 2023 21533 40327 2 Intram uscula r False Glucose Gel 40 % oral gel [Dextrose] PRN If resident is unable to swallow (with or without symptoms) and Glucose results less than 70 give GLucose 40% Gel 1 tube orally - Recheck Glucose 15 minutes after administratio n. 1 tube 2023 Active 2023 55331 29530 8 By Mouth False Lorazepam 0.5 mg tablet [generic] 0.5 mg By Mouth Every 8 hours as needed For Anxiety 0.5 mg 2023 Active 2023 06272 40945 0 Every 8 hours as needed By Mouth False Potassium chloride ER 20 mEq tablet,exte nded release [generic] 40 meq By Mouth Once daily For Hypokalemia 40 meq 11/13 Inactiv e 2023 84411 07682 1 Once daily By Mouth False Colesevelam 625 mg tablet [generic] 1250 mg By Mouth Twice daily For TYPE 2 DIABETES MELLITUS WITHOUT COMPLICATIONS 1250 mg 2023 Active 2023 14970 98043 1 Twice daily By Mouth E11.9 False Pioglitazon e 15 mg tablet [generic] 15 mg By Mouth Once daily For TYPE 2 DIABETES MELLITUS WITHOUT COMPLICATIONS 15 mg 2023 Active 2023 95401 37843 1 Once daily By Mouth E11.9 False Cholecalcif hardeep (vitamin D3) 50 mcg (2,000 unit) tablet [generic] 50 mcg By Mouth Once daily For Supplement 50 mcg 2023 Active 2023 19782 55818 1 Once daily By Mouth False Colchicine 0.6 mg tablet [generic] 0.6 mg By Mouth Twice daily As Needed For Gout 0.6 mg 2023 Active 2023 08976 45541 4 Twice daily By Mouth False Levothyroxi ne 200 mcg tablet [generic] 200 mcg By Mouth Once daily For Hypothyroidis m 200 mcg 2023 Active 2023 36987 96833 0 Once daily By Mouth False Ondansetron 4 mg disintegrat ing tablet [generic] 4 mg By Mouth Every 6 hours as needed For Nausea 4 mg 11/12 Inactiv e 2023 11474 71858 4 Every 6 hours as needed By Mouth False Docusate sodium 100 mg capsule [generic] 100 mg By Mouth Twice daily For Constipation 100 mg 2023 Active 2023 46609 71113 1 Twice daily By Mouth False Oxycodone 5 mg tablet [generic] 5 mg By Mouth Every 6 hours as needed For Pain 5 mg 11/12 Inactiv e 2023 64703 82894 1 Every 6 hours as needed By Mouth False Oxycodone 5 mg tablet [generic] 5 mg By Mouth Every 6 hours as needed For Pain 5 mg 2023 Active 2023 81169 56187 1 Every 6 hours as needed By Mouth False Milk of Magnesia 400 mg/5 mL oral suspension 30 ml By Mouth one time per day as needed if no BM x 3 days For Constipation 30 ml 2023 Active 2023 92636 65477 2 By Mouth False Ondansetron 4 mg disintegrat ing tablet [generic] 11/12 Inactiv e 2023 72443 63434 4 Ondansetron 4 mg disintegrat ing tablet [generic] 4 mg By Mouth Every 6 hours as needed For Nausea 4 mg 2023 Active 2023 50078 88034 4 Every 6 hours as needed By Mouth False Potassium chloride ER 10 mEq capsule,ext ended release [generic] 40 mEq By Mouth Once daily For hypokalemia 40 mEq 2023 Active 2023 57227 48724 1 Once daily By Mouth False Potassium chloride ER 10 mEq capsule,ext ended release [generic] 4 capsules By Mouth At bedtime For hypokalemia 4 capsule s 11/16 Active 2023 20330 87191 1 At bedtime By Mouth False Flomax 0.4 mg capsule 0.4 mg By Mouth At bedtime For Urinary retention 0.4 mg 2023 Active 2023 67036 65436 1 At bedtime By Mouth False STOOL CULTURE Once daily Obtain stool culture, add C. Diff to routine stool culture For Rule out C. Diff 1x 2023 Active 2023 Once daily Other False Butrans 5 mcg/hour transdermal patch 1 patch Transdermal Every 7 Days For Pain 1 patch 2023 Active 2023 74821 58262 4 Every week Transd ermal False Pantoprazol e 40 mg tablet,nu yed release [generic] 40 mg By Mouth Twice daily For gerd 40 mg 2023 Active 2023 02281 14455 0 Twice daily By Mouth False Scopolamine 1 mg over 3 days transdermal patch [generic] 1 Transdermal Every 72 hours For nausea 1 11/21 Active 2023 34931 93549 4 Every 72 hours Transd ermal False [...] weight Temperature SpO2 Blood Sugar Pulse Respirations 76971 5 75.00 mm[Hg] - Sitting 140.00 mm[Hg] - Sitting 65 NI 98.00 Tympanic 95.00 % 102.00 /min 18.00/min 8 55816 9 918 15721 2 75.00 mm[Hg] - Sitting 140.00 mm[Hg] - Sitting 98.00 Tympanic 102.00 /min 18.00/min 918 37376 3 918 85068 1 72.00 mm[Hg] - Sitting 138.00 mm[Hg] - Sitting 98.40 Tympanic 36660 918 92946 4 88.00/ min 18.00/min 51006 919 72193 4 71.00 mm[Hg] - Sitting 115.00 mm[Hg] - Sitting 98.30 Tympanic 97.00 % 86.00/ min 16.00/min 69751 919 52587 0 71.00 mm[Hg] - Sitting 115.00 mm[Hg] - Sitting 98.30 Tympanic 86.00/ min 16.00/min 70701 919 44706 7 71.00 mm[Hg] - Sitting 115.00 mm[Hg] - Sitting 98.30 Tympanic 86.00/ min 16.00/min 71381 920 18325 6 72.00 mm[Hg] - Sitting 112.00 mm[Hg] - Sitting 98.10 Tympanic 82.00/ min 18.00/min 21889 920 25414 0 75.00 mm[Hg] - Sitting 130.00 mm[Hg] - Sitting 98.40 Forehead Scan 93.00 % 88.00/ min 18.00/min 66956 920 65617 2 75.00 mm[Hg] - Lying Down 130.00 mm[Hg] - Lying Down 98.40 Tympanic 88.00/ min 18.00/min
--- OUTSIDE RECORDS SUMMARY | 2023-12-14 00:01 | External Medical Summary | Continuity Of Care Document ---
Author Name Unknown Address [address] [place] [address] [facility] () Care Team Providers Care Brake Adjuster Name Role Phone DO Parson Amy Primary Care Provider [phone] Allergies Allergy Reaction Start Date End Date [...] 3 0.1 mL 11/13 Inactiv e 2023 87399 68892 0 1 time Intrad ermal False Tubersol 5 tub. unit/0.1 mL intradermal injection solution [Tuberculin PPD] 0.1mL Intradermal 1 time For PPD 2nd Step Give 2nd Step PPD Day 1 and Read results Day 3 (schedule 7 days after 1st READ) 0.1mL 11/13 Inactiv e 2023 30957 64408 0 1 time Intrad ermal False DISCONTINUE as of 11/14/2023: Tubersol 5 tub. unit/0.1 mL intradermal injection solution [Tuberculin PPD] 11/13 Inactiv e 2023 32569 80782 0 Tubersol 5 tub. unit/0.1 mL intradermal injection solution 0.1 mL Intradermal 1 time For PPD Step 1 GIVE on Day 1 and read results Day 3 0.1 mL 11/16 Active 2023 43208 73323 1 1 time Intrad ermal False DISCONTINUE as of 11/14/2023: Tubersol 5 tub. unit/0.1 mL intradermal injection solution [Tuberculin PPD] 11/13 Inactiv e 2023 91743 76101 0 Tubersol 5 tub. unit/0.1 mL intradermal injection solution 0.1mL Intradermal 1 time For PPD 2nd Step Give 2nd Step PPD Day 1 and Read results Day 3 (schedule 7 days after 1st READ) 0.1mL 11/25 Active 2023 79873 99072 1 1 time Intrad ermal False Tylenol 325 mg tablet 2 tabs By Mouth Every 4 hours as needed For Pain DO NOT EXCEED 3000 MG APAP/24 Hours 2 tabs 2023 Active 2023 93506 24298 0 Every 4 hours as needed By Mouth False Tylenol 325 mg tablet 2 tabs By Mouth Every 4 hours as needed For Fever >100 DO NOT EXCEED 3000 MG APAP/24 Hours 2 tabs 202300 Active 2023 07437 35389 0 Every 4 hours as needed By Mouth False Dulcolax (bisacodyl) 10 mg rectal suppository One Suppository per rectum PRN if Milk of Magnisia ineffective. Give on day 5 of no BM 1 sup 2023 Active 2023 12617 81105 1 Daily as needed Rectal False Fleet Enema 19 gram-7 gram/118 mL Administer per rectum PRN one time if dulcolax suppository not effective. Give on day 6 of no BM 1 202300 Active 2023 81341 71251 6 Daily as needed Rectal False Dextrose 50 % in water (D50W) intravenous solution [generic] Dextrose 50% reyes 20-50 ml (slow push) Intravenous if Glucagon not effective after 15 minutes. CALL 911 for ED Evaluation. 50% reyes 202300 0000 Active 2023 63727 69420 9 Intrav enous False Glucagon (HCl) Emergency Kit 1 mg solution for injection Administer Glucagon 1 mg Intramuscular if 15 minutes after GLucose Gel is administered Glucose remains less than 70 1 mg 2023 Active 2023 45328 26722 2 Intram uscula r False Glucose Gel 40 % oral gel [Dextrose] PRN If resident is unable to swallow (with or without symptoms) and Glucose results less than 70 give GLucose 40% Gel 1 tube orally - Recheck Glucose 15 minutes after administratio n. 1 tube 2023 Active 2023 59871 99934 8 By Mouth False Lorazepam 0.5 mg tablet [generic] 0.5 mg By Mouth Every 8 hours as needed For Anxiety 0.5 mg 2023 Active 2023 38123 94991 0 Every 8 hours as needed By Mouth False Potassium chloride ER 20 mEq tablet,exte nded release [generic] 40 meq By Mouth Once daily For Hypokalemia 40 meq 11/13 Inactiv e 2023 16326 26850 1 Once daily By Mouth False Colesevelam 625 mg tablet [generic] 1250 mg By Mouth Twice daily For TYPE 2 DIABETES MELLITUS WITHOUT COMPLICATIONS 1250 mg 2023 Active 2023 03486 48481 1 Twice daily By Mouth E11.9 False Pioglitazon e 15 mg tablet [generic] 15 mg By Mouth Once daily For TYPE 2 DIABETES MELLITUS WITHOUT COMPLICATIONS 15 mg 2023 Active 2023 48926 08148 1 Once daily By Mouth E11.9 False Cholecalcif hardeep (vitamin D3) 50 mcg (2,000 unit) tablet [generic] 50 mcg By Mouth Once daily For Supplement 50 mcg 2023 Active 2023 19386 44982 1 Once daily By Mouth False Colchicine 0.6 mg tablet [generic] 0.6 mg By Mouth Twice daily As Needed For Gout 0.6 mg 2023 Active 2023 30613 87616 4 Twice daily By Mouth False Levothyroxi ne 200 mcg tablet [generic] 200 mcg By Mouth Once daily For Hypothyroidis m 200 mcg 2023 Active 2023 51945 81405 0 Once daily By Mouth False Ondansetron 4 mg disintegrat ing tablet [generic] 4 mg By Mouth Every 6 hours as needed For Nausea 4 mg 11/12 Inactiv e 2023 70788 92429 4 Every 6 hours as needed By Mouth False Docusate sodium 100 mg capsule [generic] 100 mg By Mouth Twice daily For Constipation 100 mg 2023 Active 2023 08298 37651 1 Twice daily By Mouth False Oxycodone 5 mg tablet [generic] 5 mg By Mouth Every 6 hours as needed For Pain 5 mg 11/12 Inactiv e 2023 61180 91453 1 Every 6 hours as needed By Mouth False Oxycodone 5 mg tablet [generic] 5 mg By Mouth Every 6 hours as needed For Pain 5 mg 2023 Active 2023 70863 77203 1 Every 6 hours as needed By Mouth False Milk of Magnesia 400 mg/5 mL oral suspension 30 ml By Mouth one time per day as needed if no BM x 3 days For Constipation 30 ml 2023 Active 2023 88126 53885 2 By Mouth False Ondansetron 4 mg disintegrat ing tablet [generic] 11/12 Inactiv e 2023 81916 00951 4 Ondansetron 4 mg disintegrat ing tablet [generic] 4 mg By Mouth Every 6 hours as needed For Nausea 4 mg 2023 Active 2023 69931 72435 4 Every 6 hours as needed By Mouth False Potassium chloride ER 10 mEq capsule,ext ended release [generic] 40 mEq By Mouth Once daily For hypokalemia 40 mEq 2023 Active 2023 62829 94230 1 Once daily By Mouth False Potassium chloride ER 10 mEq capsule,ext ended release [generic] 4 capsules By Mouth At bedtime For hypokalemia 4 capsule s 11/16 Active 2023 20142 27377 1 At bedtime By Mouth False Flomax 0.4 mg capsule 0.4 mg By Mouth At bedtime For Urinary retention 0.4 mg 2023 Active 2023 37994 73135 1 At bedtime By Mouth False STOOL [...] Temperature SpO2 Blood Sugar Pulse Respirations 8 12759 5 75.00 mm[Hg] - Sitting 140.00 mm[Hg] - Sitting 65 NI 98.00 Tympanic 95.00 % 102.00 /min 18.00/min 8 76945 9 02568 918 24757 2 75.00 mm[Hg] - Sitting 140.00 mm[Hg] - Sitting 98.00 Tympanic 102.00 /min 18.00/min 15443 918 86728 3 11862 918 56967 1 72.00 mm[Hg] - Sitting 138.00 mm[Hg] - Sitting 98.40 Tympanic 77785 8 58348 4 88.00/ min 18.00/min 919 03339 4 71.00 mm[Hg] - Sitting 115.00 mm[Hg] - Sitting 98.30 Tympanic 97.00 % 86.00/ min 16.00/min 76798 919 84391 0 71.00 mm[Hg] - Sitting 115.00 mm[Hg] - Sitting 98.30 Tympanic 86.00/ min 16.00/min 54581 919 18981 7 71.00 mm[Hg] - Sitting 115.00 mm[Hg] - Sitting 98.30 Tympanic 86.00/ min 16.00/min
--- OUTSIDE RECORDS SUMMARY | 2023-12-14 00:01 | External Medical Summary | Continuity Of Care Document ---
Author Name Unknown Address [address] [place] [address] [facility] () Care Team Providers Care Waterproofing Machine Operator Name Role Phone DO Parson Amy Primary Care Provider [phone] Allergies Allergy Reaction Start Date End Date [...] 3 0.1 mL 11/13 Inactiv e 2023 75635 93383 0 1 time Intrad ermal False Tubersol 5 tub. unit/0.1 mL intradermal injection solution [Tuberculin PPD] 0.1mL Intradermal 1 time For PPD 2nd Step Give 2nd Step PPD Day 1 and Read results Day 3 (schedule 7 days after 1st READ) 0.1mL 11/13 Inactiv e 2023 43565 12879 0 1 time Intrad ermal False DISCONTINUE as of 11/14/2023: Tubersol 5 tub. unit/0.1 mL intradermal injection solution [Tuberculin PPD] 11/13 Inactiv e 2023 29152 81573 0 Tubersol 5 tub. unit/0.1 mL intradermal injection solution 0.1 mL Intradermal 1 time For PPD Step 1 GIVE on Day 1 and read results Day 3 0.1 mL 11/16 Active 2023 84724 41782 1 1 time Intrad ermal False DISCONTINUE as of 11/14/2023: Tubersol 5 tub. unit/0.1 mL intradermal injection solution [Tuberculin PPD] 11/13 Inactiv e 2023 05318 83007 0 Tubersol 5 tub. unit/0.1 mL intradermal injection solution 0.1mL Intradermal 1 time For PPD 2nd Step Give 2nd Step PPD Day 1 and Read results Day 3 (schedule 7 days after 1st READ) 0.1mL 11/25 Active 2023 65379 30188 1 1 time Intrad ermal False Tylenol 325 mg tablet 2 tabs By Mouth Every 4 hours as needed For Pain DO NOT EXCEED 3000 MG APAP/24 Hours 2 tabs 2023 Active 2023 69059 38060 0 Every 4 hours as needed By Mouth False Tylenol 325 mg tablet 2 tabs By Mouth Every 4 hours as needed For Fever >100 DO NOT EXCEED 3000 MG APAP/24 Hours 2 tabs 202300 Active 2023 25295 81109 0 Every 4 hours as needed By Mouth False Dulcolax (bisacodyl) 10 mg rectal suppository One Suppository per rectum PRN if Milk of Magnisia ineffective. Give on day 5 of no BM 1 sup 2023 Active 2023 85660 51881 1 Daily as needed Rectal False Fleet Enema 19 gram-7 gram/118 mL Administer per rectum PRN one time if dulcolax suppository not effective. Give on day 6 of no BM 1 202300 Active 2023 83314 05629 6 Daily as needed Rectal False Dextrose 50 % in water (D50W) intravenous solution [generic] Dextrose 50% reyes 20-50 ml (slow push) Intravenous if Glucagon not effective after 15 minutes. CALL 911 for ED Evaluation. 50% reyes 202300 0000 Active 2023 33454 90358 9 Intrav enous False Glucagon (HCl) Emergency Kit 1 mg solution for injection Administer Glucagon 1 mg Intramuscular if 15 minutes after GLucose Gel is administered Glucose remains less than 70 1 mg 2023 Active 2023 14637 13529 2 Intram uscula r False Glucose Gel 40 % oral gel [Dextrose] PRN If resident is unable to swallow (with or without symptoms) and Glucose results less than 70 give GLucose 40% Gel 1 tube orally - Recheck Glucose 15 minutes after administratio n. 1 tube 2023 Active 2023 88784 14650 8 By Mouth False Lorazepam 0.5 mg tablet [generic] 0.5 mg By Mouth Every 8 hours as needed For Anxiety 0.5 mg 2023 Active 2023 74028 56816 0 Every 8 hours as needed By Mouth False Potassium chloride ER 20 mEq tablet,exte nded release [generic] 40 meq By Mouth Once daily For Hypokalemia 40 meq 11/13 Inactiv e 2023 43811 95548 1 Once daily By Mouth False Colesevelam 625 mg tablet [generic] 1250 mg By Mouth Twice daily For TYPE 2 DIABETES MELLITUS WITHOUT COMPLICATIONS 1250 mg 2023 Active 2023 37881 13179 1 Twice daily By Mouth E11.9 False Pioglitazon e 15 mg tablet [generic] 15 mg By Mouth Once daily For TYPE 2 DIABETES MELLITUS WITHOUT COMPLICATIONS 15 mg 11/14 Inactiv e 2023 78661 39651 1 Once daily By Mouth E11.9 False Cholecalcif hardeep (vitamin D3) 50 mcg (2,000 unit) tablet [generic] 50 mcg By Mouth Once daily For Supplement 50 mcg 2023 Active 2023 76590 42665 1 Once daily By Mouth False Colchicine 0.6 mg tablet [generic] 0.6 mg By Mouth Twice daily As Needed For Gout 0.6 mg 2023 Active 2023 42037 55187 4 Twice daily By Mouth False Levothyroxi ne 200 mcg tablet [generic] 200 mcg By Mouth Once daily For Hypothyroidis m 200 mcg 2023 Active 2023 66665 69091 0 Once daily By Mouth False Ondansetron 4 mg disintegrat ing tablet [generic] 4 mg By Mouth Every 6 hours as needed For Nausea 4 mg 11/12 Inactiv e 2023 50726 55025 4 Every 6 hours as needed By Mouth False Docusate sodium 100 mg capsule [generic] 100 mg By Mouth Twice daily For Constipation 100 mg 202300 Active 2023 93211 42172 1 Twice daily By Mouth False Oxycodone 5 mg tablet [generic] 5 mg By Mouth Every 6 hours as needed For Pain 5 mg 11/12 Inactiv e 2023 85116 33861 1 Every 6 hours as needed By Mouth False Oxycodone 5 mg tablet [generic] 5 mg By Mouth Every 6 hours as needed For Pain 5 mg 202300 Active 2023 65496 90924 1 Every 6 hours as needed By Mouth False Milk of Magnesia 400 mg/5 mL oral suspension 30 ml By Mouth one time per day as needed if no BM x 3 days For Constipation 30 ml 202300 Active 2023 27714 86735 2 By Mouth False Ondansetron 4 mg disintegrat ing tablet [generic] 11/12 Inactiv e 2023 87417 80671 4 Ondansetron 4 mg disintegrat ing tablet [generic] 4 mg By Mouth Every 6 hours as needed For Nausea 4 mg 11/14 Inactiv e 2023 37458 12038 4 Every 6 hours as needed By Mouth False Potassium chloride ER 10 mEq capsule,ext ended release [generic] 40 mEq By Mouth Once daily For hypokalemia 40 mEq 202300 Active 2023 00426 97160 1 Once daily By Mouth False Potassium chloride ER 10 mEq capsule,ext ended release [generic] 4 capsules By Mouth At bedtime For hypokalemia 4 capsule s 11/16 Active 2023 47585 58459 1 At bedtime By Mouth False Flomax 0.4 mg capsule 0.4 mg By Mouth At bedtime For Urinary retention 0.4 mg 2023 Active 2023 70687 62954 1 At bedtime By Mouth False STOOL CULTURE Once daily Obtain stool culture, add C. Diff to routine stool culture For Rule out C. Diff 1x 2023 Active 2023 Once daily Other False Butrans 5 mcg/hour transdermal patch 1 patch Transdermal Every 7 Days For Pain 1 patch 2023 Active 2023 07500 65353 4 Every week Transd ermal False Pantoprazol e 40 mg tablet,nu yed release [generic] 40 mg By Mouth Twice daily For gerd 40 mg 2023 Active 2023 93442 11295 0 Twice daily By Mouth False Scopolamine 1 mg over 3 days transdermal patch [generic] 1 Transdermal Every 72 hours For nausea 1 11/21 Active 2023 26063 86191 4 Every 72 hours Transd ermal False Ondansetron 4 mg disintegrat ing tablet [generic] 11/14 Inactiv e 2023 56223 73847 4 Ondansetron 4 mg disintegrat ing tablet [generic] 4 mg By Mouth Every 8 hours For Nausea 4 mg 2023 Active 2023 96396 81774 4 Every 8 hours By Mouth False Miralax 17 gram oral powder packet 8.5 g (1/2 capful) By Mouth Once daily For constipation 8.5 g 2023 Active 2023 22348 91989 6 Once daily By Mouth False Pioglitazon e 15 mg tablet [generic] 11/14 Inactiv e 2023 34034 31050 1 E11.9 Pioglitazon e 15 mg tablet [generic] 7.5mg ( half a tab) By Mouth Once daily For TYPE 2 DIABETES MELLITUS WITHOUT COMPLICATIONS 7.5mg 2023 Active 2023 06957 42950 1 Once daily By Mouth E11.9 False [...] weight Temperature SpO2 Blood Sugar Pulse Respirations 10611 5 75.00 mm[Hg] - Sitting 140.00 mm[Hg] - Sitting 65 NI 98.00 Tympanic 95.00 % 102.00 /min 18.00/min 918 76749 9 86279 2 75.00 mm[Hg] - Sitting 140.00 mm[Hg] - Sitting 98.00 Tympanic 102.00 /min 18.00/min 8 60987 3 08228 918 37161 1 72.00 mm[Hg] - Sitting 138.00 mm[Hg] - Sitting 98.40 Tympanic 40010 918 88694 4 88.00/ min 18.00/min 12138 919 03017 4 71.00 mm[Hg] - Sitting 115.00 mm[Hg] - Sitting 98.30 Tympanic 97.00 % 86.00/ min 16.00/min 78136 919 75180 0 71.00 mm[Hg] - Sitting 115.00 mm[Hg] - Sitting 98.30 Tympanic 86.00/ min 16.00/min 38361 919 27247 7 71.00 mm[Hg] - Sitting 115.00 mm[Hg] - Sitting 98.30 Tympanic 86.00/ min 16.00/min 73997 920 10823 6 72.00 mm[Hg] - Sitting 112.00 mm[Hg] - Sitting 98.10 Tympanic 82.00/ min 18.00/min 12332 920 80531 0 75.00 mm[Hg] - Sitting 130.00 mm[Hg] - Sitting 98.40 Forehead Scan 93.00 % 88.00/ min 18.00/min 74395 920 68392 2 75.00 mm[Hg] - Lying Down 130.00 mm[Hg] - Lying Down 98.40 Tympanic 88.00/ min 18.00/min 82114 920 83960 5 75.00 mm[Hg] - Lying Down 130.00 mm[Hg] - Lying Down 98.40 Tympanic 88.00/ min 18.00/min
--- OUTSIDE RECORDS SUMMARY | 2023-12-14 00:01 | External Medical Summary | Continuity Of Care Document ---
Author Name Unknown Address [address] [place] [address] Organization [facility] () Care Team Providers Care Intervention Teacher Name Role Phone DO Parson Amy Primary Care Provider [phone] Allergies Allergy Reaction Start Date End Date [...] 3 0.1 mL 11/13 Inactiv e 2023 75762 71625 0 1 time Intrad ermal False Tubersol 5 tub. unit/0.1 mL intradermal injection solution [Tuberculin PPD] 0.1mL Intradermal 1 time For PPD 2nd Step Give 2nd Step PPD Day 1 and Read results Day 3 (schedule 7 days after 1st READ) 0.1mL 11/13 Inactiv e 2023 87926 98685 0 1 time Intrad ermal False DISCONTINUE as of 11/14/2023: Tubersol 5 tub. unit/0.1 mL intradermal injection solution [Tuberculin PPD] 11/13 Inactiv e 2023 73712 26101 0 Tubersol 5 tub. unit/0.1 mL intradermal injection solution 0.1 mL Intradermal 1 time For PPD Step 1 GIVE on Day 1 and read results Day 3 0.1 mL 11/16 Active 2023 09339 44104 1 1 time Intrad ermal False DISCONTINUE as of 11/14/2023: Tubersol 5 tub. unit/0.1 mL intradermal injection solution [Tuberculin PPD] 11/13 Inactiv e 2023 90853 55531 0 Tubersol 5 tub. unit/0.1 mL intradermal injection solution 0.1mL Intradermal 1 time For PPD 2nd Step Give 2nd Step PPD Day 1 and Read results Day 3 (schedule 7 days after 1st READ) 0.1mL 11/25 Active 2023 73986 22204 1 1 time Intrad ermal False Tylenol 325 mg tablet 2 tabs By Mouth Every 4 hours as needed For Pain DO NOT EXCEED 3000 MG APAP/24 Hours 2 tabs 2023 Active 2023 14437 51438 0 Every 4 hours as needed By Mouth False Tylenol 325 mg tablet 2 tabs By Mouth Every 4 hours as needed For Fever >100 DO NOT EXCEED 3000 MG APAP/24 Hours 2 tabs 202300 Active 2023 21601 61479 0 Every 4 hours as needed By Mouth False Dulcolax (bisacodyl) 10 mg rectal suppository One Suppository per rectum PRN if Milk of Magnisia ineffective. Give on day 5 of no BM 1 sup 2023 Active 2023 68579 30445 1 Daily as needed Rectal False Fleet Enema 19 gram-7 gram/118 mL Administer per rectum PRN one time if dulcolax suppository not effective. Give on day 6 of no BM 1 202300 Active 2023 68353 33516 6 Daily as needed Rectal False Dextrose 50 % in water (D50W) intravenous solution [generic] Dextrose 50% reyes 20-50 ml (slow push) Intravenous if Glucagon not effective after 15 minutes. CALL 911 for ED Evaluation. 50% reyes 202300 0000 Active 2023 58551 28767 9 Intrav enous False Glucagon (HCl) Emergency Kit 1 mg solution for injection Administer Glucagon 1 mg Intramuscular if 15 minutes after GLucose Gel is administered Glucose remains less than 70 1 mg 2023 Active 2023 52400 31260 2 Intram uscula r False Glucose Gel 40 % oral gel [Dextrose] PRN If resident is unable to swallow (with or without symptoms) and Glucose results less than 70 give GLucose 40% Gel 1 tube orally - Recheck Glucose 15 minutes after administratio n. 1 tube 2023 Active 2023 96716 66845 8 By Mouth False Lorazepam 0.5 mg tablet [generic] 0.5 mg By Mouth Every 8 hours as needed For Anxiety 0.5 mg 2023 Active 2023 74954 41151 0 Every 8 hours as needed By Mouth False Potassium chloride ER 20 mEq tablet,exte nded release [generic] 40 meq By Mouth Once daily For Hypokalemia 40 meq 11/13 Inactiv e 2023 68212 42258 1 Once daily By Mouth False Colesevelam 625 mg tablet [generic] 1250 mg By Mouth Twice daily For TYPE 2 DIABETES MELLITUS WITHOUT COMPLICATIONS 1250 mg 2023 Active 2023 47061 09387 1 Twice daily By Mouth E11.9 False Pioglitazon e 15 mg tablet [generic] 15 mg By Mouth Once daily For TYPE 2 DIABETES MELLITUS WITHOUT COMPLICATIONS 15 mg 2023 Active 2023 08252 43948 1 Once daily By Mouth E11.9 False Cholecalcif hardeep (vitamin D3) 50 mcg (2,000 unit) tablet [generic] 50 mcg By Mouth Once daily For Supplement 50 mcg 2023 Active 2023 90783 85944 1 Once daily By Mouth False Colchicine 0.6 mg tablet [generic] 0.6 mg By Mouth Twice daily As Needed For Gout 0.6 mg 2023 Active 2023 09472 59920 4 Twice daily By Mouth False Levothyroxi ne 200 mcg tablet [generic] 200 mcg By Mouth Once daily For Hypothyroidis m 200 mcg 2023 Active 2023 33344 69247 0 Once daily By Mouth False Ondansetron 4 mg disintegrat ing tablet [generic] 4 mg By Mouth Every 6 hours as needed For Nausea 4 mg 11/12 Inactiv e 2023 63794 46542 4 Every 6 hours as needed By Mouth False Docusate sodium 100 mg capsule [generic] 100 mg By Mouth Twice daily For Constipation 100 mg 2023 Active 2023 59105 65063 1 Twice daily By Mouth False Oxycodone 5 mg tablet [generic] 5 mg By Mouth Every 6 hours as needed For Pain 5 mg 11/12 Inactiv e 2023 92198 06109 1 Every 6 hours as needed By Mouth False Oxycodone 5 mg tablet [generic] 5 mg By Mouth Every 6 hours as needed For Pain 5 mg 2023 Active 2023 96022 02659 1 Every 6 hours as needed By Mouth False Milk of Magnesia 400 mg/5 mL oral suspension 30 ml By Mouth one time per day as needed if no BM x 3 days For Constipation 30 ml 2023 Active 2023 51588 55045 2 By Mouth False Ondansetron 4 mg disintegrat ing tablet [generic] 11/12 Inactiv e 2023 38451 22647 4 Ondansetron 4 mg disintegrat ing tablet [generic] 4 mg By Mouth Every 6 hours as needed For Nausea 4 mg 2023 Active 2023 11999 56744 4 Every 6 hours as needed By Mouth False Potassium chloride ER 10 mEq capsule,ext ended release [generic] 40 mEq By Mouth Once daily For hypokalemia 40 mEq 2023 Active 2023 80029 02140 1 Once daily By Mouth False Potassium chloride ER 10 mEq capsule,ext ended release [generic] 4 capsules By Mouth At bedtime For hypokalemia 4 capsule s 11/16 Active 2023 53357 07754 1 At bedtime By Mouth False Flomax 0.4 mg capsule 0.4 mg By Mouth At bedtime For Urinary retention 0.4 mg 2023 Active 2023 10133 13720 1 At bedtime By Mouth False STOOL [...] Temperature SpO2 Blood Sugar Pulse Respirations 8 24950 5 75.00 mm[Hg] - Sitting 140.00 mm[Hg] - Sitting 65 NI 98.00 Tympanic 95.00 % 102.00 /min 18.00/min 8 73387 9 04553 918 14173 2 75.00 mm[Hg] - Sitting 140.00 mm[Hg] - Sitting 98.00 Tympanic 102.00 /min 18.00/min 28941 918 55744 3 29478 918 56357 1 72.00 mm[Hg] - Sitting 138.00 mm[Hg] - Sitting 98.40 Tympanic 87792 8 57637 4 88.00/ min 18.00/min 919 91764 4 71.00 mm[Hg] - Sitting 115.00 mm[Hg] - Sitting 98.30 Tympanic 97.00 % 86.00/ min 16.00/min 14301 919 54239 0 71.00 mm[Hg] - Sitting 115.00 mm[Hg] - Sitting 98.30 Tympanic 86.00/ min 16.00/min 73968 919 93050 7 71.00 mm[Hg] - Sitting 115.00 mm[Hg] - Sitting 98.30 Tympanic 86.00/ min 16.00/min
--- OUTSIDE RECORDS SUMMARY | 2023-12-14 00:01 | External Medical Summary | Continuity Of Care Document ---
Author Name Unknown Address [address] [place] [address] Organization [facility] [place] () Care Team Providers Care In Store Marketer Name Role Phone DO Parson Amy Primary Care Provider [phone] Allergies Allergy Reaction Start Date End Date [...] 3 0.1 mL 11/13 Inactiv e 2023 84659 33870 0 1 time Intrad ermal False Tubersol 5 tub. unit/0.1 mL intradermal injection solution [Tuberculin PPD] 0.1mL Intradermal 1 time For PPD 2nd Step Give 2nd Step PPD Day 1 and Read results Day 3 (schedule 7 days after 1st READ) 0.1mL 11/13 Inactiv e 2023 84153 20562 0 1 time Intrad ermal False DISCONTINUE as of 11/14/2023: Tubersol 5 tub. unit/0.1 mL intradermal injection solution [Tuberculin PPD] 11/13 Inactiv e 2023 07728 94907 0 Tubersol 5 tub. unit/0.1 mL intradermal injection solution 0.1 mL Intradermal 1 time For PPD Step 1 GIVE on Day 1 and read results Day 3 0.1 mL 11/16 Active 2023 71425 63583 1 1 time Intrad ermal False DISCONTINUE as of 11/14/2023: Tubersol 5 tub. unit/0.1 mL intradermal injection solution [Tuberculin PPD] 11/13 Inactiv e 2023 52514 19469 0 Tubersol 5 tub. unit/0.1 mL intradermal injection solution 0.1mL Intradermal 1 time For PPD 2nd Step Give 2nd Step PPD Day 1 and Read results Day 3 (schedule 7 days after 1st READ) 0.1mL 11/25 Active 2023 61917 17813 1 1 time Intrad ermal False Tylenol 325 mg tablet 2 tabs By Mouth Every 4 hours as needed For Pain DO NOT EXCEED 3000 MG APAP/24 Hours 2 tabs 2023 Active 2023 74344 62613 0 Every 4 hours as needed By Mouth False Tylenol 325 mg tablet 2 tabs By Mouth Every 4 hours as needed For Fever >100 DO NOT EXCEED 3000 MG APAP/24 Hours 2 tabs 202300 Active 2023 43473 23437 0 Every 4 hours as needed By Mouth False Dulcolax (bisacodyl) 10 mg rectal suppository One Suppository per rectum PRN if Milk of Magnisia ineffective. Give on day 5 of no BM 1 sup 2023 Active 2023 31080 51091 1 Daily as needed Rectal False Fleet Enema 19 gram-7 gram/118 mL Administer per rectum PRN one time if dulcolax suppository not effective. Give on day 6 of no BM 1 202300 Active 2023 92057 93253 6 Daily as needed Rectal False Dextrose 50 % in water (D50W) intravenous solution [generic] Dextrose 50% reyes 20-50 ml (slow push) Intravenous if Glucagon not effective after 15 minutes. CALL 911 for ED Evaluation. 50% reyes 202300 0000 Active 2023 33282 08129 9 Intrav enous False Glucagon (HCl) Emergency Kit 1 mg solution for injection Administer Glucagon 1 mg Intramuscular if 15 minutes after GLucose Gel is administered Glucose remains less than 70 1 mg 2023 Active 2023 80033 06768 2 Intram uscula r False Glucose Gel 40 % oral gel [Dextrose] PRN If resident is unable to swallow (with or without symptoms) and Glucose results less than 70 give GLucose 40% Gel 1 tube orally - Recheck Glucose 15 minutes after administratio n. 1 tube 2023 Active 2023 12707 76414 8 By Mouth False Lorazepam 0.5 mg tablet [generic] 0.5 mg By Mouth Every 8 hours as needed For Anxiety 0.5 mg 2023 Active 2023 16818 96156 0 Every 8 hours as needed By Mouth False Potassium chloride ER 20 mEq tablet,exte nded release [generic] 40 meq By Mouth Once daily For Hypokalemia 40 meq 11/13 Inactiv e 2023 12186 71513 1 Once daily By Mouth False Colesevelam 625 mg tablet [generic] 1250 mg By Mouth Twice daily For TYPE 2 DIABETES MELLITUS WITHOUT COMPLICATIONS 1250 mg 2023 Active 2023 63608 54742 1 Twice daily By Mouth E11.9 False Pioglitazon e 15 mg tablet [generic] 15 mg By Mouth Once daily For TYPE 2 DIABETES MELLITUS WITHOUT COMPLICATIONS 15 mg 2023 Active 2023 71213 17106 1 Once daily By Mouth E11.9 False Cholecalcif hardeep (vitamin D3) 50 mcg (2,000 unit) tablet [generic] 50 mcg By Mouth Once daily For Supplement 50 mcg 2023 Active 2023 98231 20520 1 Once daily By Mouth False Colchicine 0.6 mg tablet [generic] 0.6 mg By Mouth Twice daily As Needed For Gout 0.6 mg 2023 Active 2023 55314 78462 4 Twice daily By Mouth False Levothyroxi ne 200 mcg tablet [generic] 200 mcg By Mouth Once daily For Hypothyroidis m 200 mcg 2023 Active 2023 95105 40982 0 Once daily By Mouth False Ondansetron 4 mg disintegrat ing tablet [generic] 4 mg By Mouth Every 6 hours as needed For Nausea 4 mg 11/12 Inactiv e 2023 41153 89291 4 Every 6 hours as needed By Mouth False Docusate sodium 100 mg capsule [generic] 100 mg By Mouth Twice daily For Constipation 100 mg 2023 Active 2023 05247 75796 1 Twice daily By Mouth False Oxycodone 5 mg tablet [generic] 5 mg By Mouth Every 6 hours as needed For Pain 5 mg 11/12 Inactiv e 2023 73539 62203 1 Every 6 hours as needed By Mouth False Oxycodone 5 mg tablet [generic] 5 mg By Mouth Every 6 hours as needed For Pain 5 mg 2023 Active 2023 90006 23734 1 Every 6 hours as needed By Mouth False Milk of Magnesia 400 mg/5 mL oral suspension 30 ml By Mouth one time per day as needed if no BM x 3 days For Constipation 30 ml 2023 Active 2023 34889 90810 2 By Mouth False Ondansetron 4 mg disintegrat ing tablet [generic] 11/12 Inactiv e 2023 02527 61520 4 Ondansetron 4 mg disintegrat ing tablet [generic] 4 mg By Mouth Every 6 hours as needed For Nausea 4 mg 2023 Active 2023 45983 39409 4 Every 6 hours as needed By Mouth False Potassium chloride ER 10 mEq capsule,ext ended release [generic] 40 mEq By Mouth Once daily For hypokalemia 40 mEq 2023 Active 2023 02087 70616 1 Once daily By Mouth False Potassium chloride ER 10 mEq capsule,ext ended release [generic] 4 capsules By Mouth At bedtime For hypokalemia 4 capsule s 11/16 Active 2023 56258 45706 1 At bedtime By Mouth False Flomax 0.4 mg capsule 0.4 mg By Mouth At bedtime For Urinary retention 0.4 mg 2023 Active 2023 51753 14619 1 At bedtime By Mouth False STOOL [...] weight Temperature SpO2 Blood Sugar Pulse Respirations 67044 918 44926 5 75.00 mm[Hg] - Sitting 140.00 mm[Hg] - Sitting 65 NI 98.00 Tympanic 95.00 % 102.00 /min 18.00/min 61863 918 63591 9 22478 918 48581 2 75.00 mm[Hg] - Sitting 140.00 mm[Hg] - Sitting 98.00 Tympanic 102.00 /min 18.00/min 36265 918 71723 3 01375 918 71239 1 72.00 mm[Hg] - Sitting 138.00 mm[Hg] - Sitting 98.40 Tympanic 72022 918 80123 4 88.00/ min 18.00/min 71249 919 48224 4 71.00 mm[Hg] - Sitting 115.00 mm[Hg] - Sitting 98.30 Tympanic 97.00 % 86.00/ min 16.00/min 07553 919 39105 0 71.00 mm[Hg] - Sitting 115.00 mm[Hg] - Sitting 98.30 Tympanic 86.00/ min 16.00/min 80778 919 53827 7 71.00 mm[Hg] - Sitting 115.00 mm[Hg] - Sitting 98.30 Tympanic 86.00/ min 16.00/min 97656 920 02792 6 72.00 mm[Hg] - Sitting 112.00 mm[Hg] - Sitting 98.10 Tympanic 82.00/ min 18.00/min
--- OUTSIDE RECORDS SUMMARY | 2023-12-14 00:02 | External Medical Summary | Continuity Of Care Document ---
Author Name Unknown Address [address] [place] [address] Organization [facility] () Care Team Providers Care Insurance Claims Processor Name Role Phone DO Parson Amy Primary Care Provider [phone] Allergies Allergy Reaction Start Date End Date [...] 3 0.1 mL 11/13 Inactiv e 2023 68574 68510 0 1 time Intrad ermal False Tubersol 5 tub. unit/0.1 mL intradermal injection solution [Tuberculin PPD] 0.1mL Intradermal 1 time For PPD 2nd Step Give 2nd Step PPD Day 1 and Read results Day 3 (schedule 7 days after 1st READ) 0.1mL 11/13 Inactiv e 2023 20084 41468 0 1 time Intrad ermal False DISCONTINUE as of 11/14/2023: Tubersol 5 tub. unit/0.1 mL intradermal injection solution [Tuberculin PPD] 11/13 Inactiv e 2023 96707 85239 0 Tubersol 5 tub. unit/0.1 mL intradermal injection solution 0.1 mL Intradermal 1 time For PPD Step 1 GIVE on Day 1 and read results Day 3 0.1 mL 11/16 Active 2023 23179 98126 1 1 time Intrad ermal False DISCONTINUE as of 11/14/2023: Tubersol 5 tub. unit/0.1 mL intradermal injection solution [Tuberculin PPD] 11/13 Inactiv e 2023 64141 62596 0 Tubersol 5 tub. unit/0.1 mL intradermal injection solution 0.1mL Intradermal 1 time For PPD 2nd Step Give 2nd Step PPD Day 1 and Read results Day 3 (schedule 7 days after 1st READ) 0.1mL 11/25 Active 2023 90154 46933 1 1 time Intrad ermal False Tylenol 325 mg tablet 2 tabs By Mouth Every 4 hours as needed For Pain DO NOT EXCEED 3000 MG APAP/24 Hours 2 tabs 2023 Active 2023 28050 18651 0 Every 4 hours as needed By Mouth False Tylenol 325 mg tablet 2 tabs By Mouth Every 4 hours as needed For Fever >100 DO NOT EXCEED 3000 MG APAP/24 Hours 2 tabs 202300 Active 2023 09255 19700 0 Every 4 hours as needed By Mouth False Dulcolax (bisacodyl) 10 mg rectal suppository One Suppository per rectum PRN if Milk of Magnisia ineffective. Give on day 5 of no BM 1 sup 2023 Active 2023 88307 34447 1 Daily as needed Rectal False Fleet Enema 19 gram-7 gram/118 mL Administer per rectum PRN one time if dulcolax suppository not effective. Give on day 6 of no BM 1 202300 Active 2023 60740 11872 6 Daily as needed Rectal False Dextrose 50 % in water (D50W) intravenous solution [generic] Dextrose 50% reyes 20-50 ml (slow push) Intravenous if Glucagon not effective after 15 minutes. CALL 911 for ED Evaluation. 50% reyes 202300 0000 Active 2023 92304 14920 9 Intrav enous False Glucagon (HCl) Emergency Kit 1 mg solution for injection Administer Glucagon 1 mg Intramuscular if 15 minutes after GLucose Gel is administered Glucose remains less than 70 1 mg 2023 Active 2023 27133 94186 2 Intram uscula r False Glucose Gel 40 % oral gel [Dextrose] PRN If resident is unable to swallow (with or without symptoms) and Glucose results less than 70 give GLucose 40% Gel 1 tube orally - Recheck Glucose 15 minutes after administratio n. 1 tube 2023 Active 2023 69576 67216 8 By Mouth False Lorazepam 0.5 mg tablet [generic] 0.5 mg By Mouth Every 8 hours as needed For Anxiety 0.5 mg 2023 Active 2023 30898 40267 0 Every 8 hours as needed By Mouth False Potassium chloride ER 20 mEq tablet,exte nded release [generic] 40 meq By Mouth Once daily For Hypokalemia 40 meq 11/13 Inactiv e 2023 67262 57619 1 Once daily By Mouth False Colesevelam 625 mg tablet [generic] 1250 mg By Mouth Twice daily For TYPE 2 DIABETES MELLITUS WITHOUT COMPLICATIONS 1250 mg 2023 Active 2023 65896 80005 1 Twice daily By Mouth E11.9 False Pioglitazon e 15 mg tablet [generic] 15 mg By Mouth Once daily For TYPE 2 DIABETES MELLITUS WITHOUT COMPLICATIONS 15 mg 11/14 Inactiv e 2023 86654 76040 1 Once daily By Mouth E11.9 False Cholecalcif hardeep (vitamin D3) 50 mcg (2,000 unit) tablet [generic] 50 mcg By Mouth Once daily For Supplement 50 mcg 2023 Active 2023 97107 43261 1 Once daily By Mouth False Colchicine 0.6 mg tablet [generic] 0.6 mg By Mouth Twice daily As Needed For Gout 0.6 mg 2023 Active 2023 67250 51947 4 Twice daily By Mouth False Levothyroxi ne 200 mcg tablet [generic] 200 mcg By Mouth Once daily For Hypothyroidis m 200 mcg 2023 Active 2023 26558 06364 0 Once daily By Mouth False Ondansetron 4 mg disintegrat ing tablet [generic] 4 mg By Mouth Every 6 hours as needed For Nausea 4 mg 11/12 Inactiv e 2023 75405 48424 4 Every 6 hours as needed By Mouth False Docusate sodium 100 mg capsule [generic] 100 mg By Mouth Twice daily For Constipation 100 mg 202300 Active 2023 34267 64952 1 Twice daily By Mouth False Oxycodone 5 mg tablet [generic] 5 mg By Mouth Every 6 hours as needed For Pain 5 mg 11/12 Inactiv e 2023 78852 77593 1 Every 6 hours as needed By Mouth False Oxycodone 5 mg tablet [generic] 5 mg By Mouth Every 6 hours as needed For Pain 5 mg 202300 Active 2023 96322 09667 1 Every 6 hours as needed By Mouth False Milk of Magnesia 400 mg/5 mL oral suspension 30 ml By Mouth one time per day as needed if no BM x 3 days For Constipation 30 ml 202300 Active 2023 78003 97155 2 By Mouth False Ondansetron 4 mg disintegrat ing tablet [generic] 11/12 Inactiv e 2023 41022 30842 4 Ondansetron 4 mg disintegrat ing tablet [generic] 4 mg By Mouth Every 6 hours as needed For Nausea 4 mg 11/14 Inactiv e 2023 29641 63780 4 Every 6 hours as needed By Mouth False Potassium chloride ER 10 mEq capsule,ext ended release [generic] 40 mEq By Mouth Once daily For hypokalemia 40 mEq 202300 Active 2023 73725 37807 1 Once daily By Mouth False Potassium chloride ER 10 mEq capsule,ext ended release [generic] 4 capsules By Mouth At bedtime For hypokalemia 4 capsule s 11/16 Active 2023 95393 00434 1 At bedtime By Mouth False Flomax 0.4 mg capsule 0.4 mg By Mouth At bedtime For Urinary retention 0.4 mg 2023 Active 2023 46376 96532 1 At bedtime By Mouth False STOOL CULTURE Once daily Obtain stool culture, add C. Diff to routine stool culture For Rule out C. Diff 1x 2023 Active 2023 Once daily Other False Butrans 5 mcg/hour transdermal patch 1 patch Transdermal Every 7 Days For Pain 1 patch 2023 Active 2023 33570 40814 4 Every week Transd ermal False Pantoprazol e 40 mg tablet,nu yed release [generic] 40 mg By Mouth Twice daily For gerd 40 mg 2023 Active 2023 56237 40454 0 Twice daily By Mouth False Scopolamine 1 mg over 3 days transdermal patch [generic] 1 Transdermal Every 72 hours For nausea 1 11/21 Active 2023 05394 14710 4 Every 72 hours Transd ermal False Ondansetron 4 mg disintegrat ing tablet [generic] 11/14 Inactiv e 2023 36364 07180 4 Ondansetron 4 mg disintegrat ing tablet [generic] 4 mg By Mouth Every 8 hours For Nausea 4 mg 2023 Active 2023 13253 04643 4 Every 8 hours By Mouth False Miralax 17 gram oral powder packet 8.5 g (1/2 capful) By Mouth Once daily For constipation 8.5 g 2023 Active 2023 31755 13821 6 Once daily By Mouth False Pioglitazon e 15 mg tablet [generic] 11/14 Inactiv e 2023 02357 15540 1 E11.9 Pioglitazon e 15 mg tablet [generic] 7.5mg ( half a tab) By Mouth Once daily For TYPE 2 DIABETES MELLITUS WITHOUT COMPLICATIONS 7.5mg 2023 Active 2023 47053 16735 1 Once daily By Mouth E11.9 False [...] weight Temperature SpO2 Blood Sugar Pulse Respirations 79336 5 75.00 mm[Hg] - Sitting 140.00 mm[Hg] - Sitting 65 NI 98.00 Tympanic 95.00 % 102.00 /min 18.00/min 918 44117 9 13075 2 75.00 mm[Hg] - Sitting 140.00 mm[Hg] - Sitting 98.00 Tympanic 102.00 /min 18.00/min 8 04700 3 11958 918 98210 1 72.00 mm[Hg] - Sitting 138.00 mm[Hg] - Sitting 98.40 Tympanic 10494 918 89797 4 88.00/ min 18.00/min 78568 919 86663 4 71.00 mm[Hg] - Sitting 115.00 mm[Hg] - Sitting 98.30 Tympanic 97.00 % 86.00/ min 16.00/min 18852 919 10739 0 71.00 mm[Hg] - Sitting 115.00 mm[Hg] - Sitting 98.30 Tympanic 86.00/ min 16.00/min 48032 919 18010 7 71.00 mm[Hg] - Sitting 115.00 mm[Hg] - Sitting 98.30 Tympanic 86.00/ min 16.00/min 81880 920 66831 6 72.00 mm[Hg] - Sitting 112.00 mm[Hg] - Sitting 98.10 Tympanic 82.00/ min 18.00/min 55782 920 89327 0 75.00 mm[Hg] - Sitting 130.00 mm[Hg] - Sitting 98.40 Forehead Scan 93.00 % 88.00/ min 18.00/min 89851 920 30323 2 75.00 mm[Hg] - Lying Down 130.00 mm[Hg] - Lying Down 98.40 Tympanic 88.00/ min 18.00/min 07108 920 54521 5 75.00 mm[Hg] - Lying Down 130.00 mm[Hg] - Lying Down 98.40 Tympanic 88.00/ min 18.00/min
--- OUTSIDE RECORDS SUMMARY | 2023-12-14 00:02 | External Medical Summary | Continuity Of Care Document ---
Author Name Unknown Address [address] [place] [address] Organization [facility] () Care Team Providers Care Crate Repairer Name Role Phone DO Parson Amy Primary Care Provider [phone] Allergies Allergy Reaction Start Date End Date [...] 3 0.1 mL 11/13 Inactiv e 2023 74144 38726 0 1 time Intrad ermal False Tubersol 5 tub. unit/0.1 mL intradermal injection solution [Tuberculin PPD] 0.1mL Intradermal 1 time For PPD 2nd Step Give 2nd Step PPD Day 1 and Read results Day 3 (schedule 7 days after 1st READ) 0.1mL 11/13 Inactiv e 2023 33897 73037 0 1 time Intrad ermal False DISCONTINUE as of 11/14/2023: Tubersol 5 tub. unit/0.1 mL intradermal injection solution [Tuberculin PPD] 11/13 Inactiv e 2023 04414 97330 0 Tubersol 5 tub. unit/0.1 mL intradermal injection solution 0.1 mL Intradermal 1 time For PPD Step 1 GIVE on Day 1 and read results Day 3 0.1 mL 11/16 Active 2023 55645 18864 1 1 time Intrad ermal False DISCONTINUE as of 11/14/2023: Tubersol 5 tub. unit/0.1 mL intradermal injection solution [Tuberculin PPD] 11/13 Inactiv e 2023 62146 20172 0 Tubersol 5 tub. unit/0.1 mL intradermal injection solution 0.1mL Intradermal 1 time For PPD 2nd Step Give 2nd Step PPD Day 1 and Read results Day 3 (schedule 7 days after 1st READ) 0.1mL 11/25 Active 2023 49501 19466 1 1 time Intrad ermal False Tylenol 325 mg tablet 2 tabs By Mouth Every 4 hours as needed For Pain DO NOT EXCEED 3000 MG APAP/24 Hours 2 tabs 2023 Active 2023 96405 62676 0 Every 4 hours as needed By Mouth False Tylenol 325 mg tablet 2 tabs By Mouth Every 4 hours as needed For Fever >100 DO NOT EXCEED 3000 MG APAP/24 Hours 2 tabs 202300 Active 2023 06844 81615 0 Every 4 hours as needed By Mouth False Dulcolax (bisacodyl) 10 mg rectal suppository One Suppository per rectum PRN if Milk of Magnisia ineffective. Give on day 5 of no BM 1 sup 2023 Active 2023 46420 92637 1 Daily as needed Rectal False Fleet Enema 19 gram-7 gram/118 mL Administer per rectum PRN one time if dulcolax suppository not effective. Give on day 6 of no BM 1 202300 Active 2023 64155 74122 6 Daily as needed Rectal False Dextrose 50 % in water (D50W) intravenous solution [generic] Dextrose 50% reyes 20-50 ml (slow push) Intravenous if Glucagon not effective after 15 minutes. CALL 911 for ED Evaluation. 50% reyes 202300 0000 Active 2023 50690 52946 9 Intrav enous False Glucagon (HCl) Emergency Kit 1 mg solution for injection Administer Glucagon 1 mg Intramuscular if 15 minutes after GLucose Gel is administered Glucose remains less than 70 1 mg 2023 Active 2023 16425 56816 2 Intram uscula r False Glucose Gel 40 % oral gel [Dextrose] PRN If resident is unable to swallow (with or without symptoms) and Glucose results less than 70 give GLucose 40% Gel 1 tube orally - Recheck Glucose 15 minutes after administratio n. 1 tube 2023 Active 2023 17821 02119 8 By Mouth False Lorazepam 0.5 mg tablet [generic] 0.5 mg By Mouth Every 8 hours as needed For Anxiety 0.5 mg 2023 Active 2023 34499 26945 0 Every 8 hours as needed By Mouth False Potassium chloride ER 20 mEq tablet,exte nded release [generic] 40 meq By Mouth Once daily For Hypokalemia 40 meq 11/13 Inactiv e 2023 68459 19699 1 Once daily By Mouth False Colesevelam 625 mg tablet [generic] 1250 mg By Mouth Twice daily For TYPE 2 DIABETES MELLITUS WITHOUT COMPLICATIONS 1250 mg 2023 Active 2023 28562 49246 1 Twice daily By Mouth E11.9 False Pioglitazon e 15 mg tablet [generic] 15 mg By Mouth Once daily For TYPE 2 DIABETES MELLITUS WITHOUT COMPLICATIONS 15 mg 2023 Active 2023 29777 77180 1 Once daily By Mouth E11.9 False Cholecalcif hardeep (vitamin D3) 50 mcg (2,000 unit) tablet [generic] 50 mcg By Mouth Once daily For Supplement 50 mcg 2023 Active 2023 95443 91176 1 Once daily By Mouth False Colchicine 0.6 mg tablet [generic] 0.6 mg By Mouth Twice daily As Needed For Gout 0.6 mg 2023 Active 2023 59501 63654 4 Twice daily By Mouth False Levothyroxi ne 200 mcg tablet [generic] 200 mcg By Mouth Once daily For Hypothyroidis m 200 mcg 2023 Active 2023 28188 76131 0 Once daily By Mouth False Ondansetron 4 mg disintegrat ing tablet [generic] 4 mg By Mouth Every 6 hours as needed For Nausea 4 mg 11/12 Inactiv e 2023 16424 29379 4 Every 6 hours as needed By Mouth False Docusate sodium 100 mg capsule [generic] 100 mg By Mouth Twice daily For Constipation 100 mg 2023 Active 2023 42792 31581 1 Twice daily By Mouth False Oxycodone 5 mg tablet [generic] 5 mg By Mouth Every 6 hours as needed For Pain 5 mg 11/12 Inactiv e 2023 56147 72716 1 Every 6 hours as needed By Mouth False Oxycodone 5 mg tablet [generic] 5 mg By Mouth Every 6 hours as needed For Pain 5 mg 2023 Active 2023 31979 22287 1 Every 6 hours as needed By Mouth False Milk of Magnesia 400 mg/5 mL oral suspension 30 ml By Mouth one time per day as needed if no BM x 3 days For Constipation 30 ml 2023 Active 2023 93130 35894 2 By Mouth False Ondansetron 4 mg disintegrat ing tablet [generic] 11/12 Inactiv e 2023 89974 82854 4 Ondansetron 4 mg disintegrat ing tablet [generic] 4 mg By Mouth Every 6 hours as needed For Nausea 4 mg 2023 Active 2023 59456 26849 4 Every 6 hours as needed By Mouth False Potassium chloride ER 10 mEq capsule,ext ended release [generic] 40 mEq By Mouth Once daily For hypokalemia 40 mEq 2023 Active 2023 29894 61996 1 Once daily By Mouth False Potassium chloride ER 10 mEq capsule,ext ended release [generic] 4 capsules By Mouth At bedtime For hypokalemia 4 capsule s 11/16 Active 2023 21389 95130 1 At bedtime By Mouth False Flomax 0.4 mg capsule 0.4 mg By Mouth At bedtime For Urinary retention 0.4 mg 2023 Active 2023 34512 59232 1 At bedtime By Mouth False STOOL [...] Temperature SpO2 Blood Sugar Pulse Respirations 8 52781 5 75.00 mm[Hg] - Sitting 140.00 mm[Hg] - Sitting 65 NI 98.00 Tympanic 95.00 % 102.00 /min 18.00/min 8 39472 9 72791 918 77183 2 75.00 mm[Hg] - Sitting 140.00 mm[Hg] - Sitting 98.00 Tympanic 102.00 /min 18.00/min 88380 918 72316 3 80307 918 26821 1 72.00 mm[Hg] - Sitting 138.00 mm[Hg] - Sitting 98.40 Tympanic 21411 8 72750 4 88.00/ min 18.00/min 919 24419 4 71.00 mm[Hg] - Sitting 115.00 mm[Hg] - Sitting 98.30 Tympanic 97.00 % 86.00/ min 16.00/min 17112 919 18149 0 71.00 mm[Hg] - Sitting 115.00 mm[Hg] - Sitting 98.30 Tympanic 86.00/ min 16.00/min 27855 919 27020 7 71.00 mm[Hg] - Sitting 115.00 mm[Hg] - Sitting 98.30 Tympanic 86.00/ min 16.00/min
--- OUTSIDE RECORDS SUMMARY | 2023-12-14 00:02 | External Medical Summary | Continuity Of Care Document ---
Author Name Unknown Address [address] [place] [address] Organization [facility] () Care Team Providers Care Dry Transfer Man Name Role Phone DO Parson Amy Primary Care Provider [phone] Allergies Allergy Reaction Start Date End Date [...] 3 0.1 mL 11/13 Inactiv e 2023 16095 03498 0 1 time Intrad ermal False Tubersol 5 tub. unit/0.1 mL intradermal injection solution [Tuberculin PPD] 0.1mL Intradermal 1 time For PPD 2nd Step Give 2nd Step PPD Day 1 and Read results Day 3 (schedule 7 days after 1st READ) 0.1mL 11/13 Inactiv e 2023 55557 96788 0 1 time Intrad ermal False DISCONTINUE as of 11/14/2023: Tubersol 5 tub. unit/0.1 mL intradermal injection solution [Tuberculin PPD] 11/13 Inactiv e 2023 95059 95346 0 Tubersol 5 tub. unit/0.1 mL intradermal injection solution 0.1 mL Intradermal 1 time For PPD Step 1 GIVE on Day 1 and read results Day 3 0.1 mL 11/16 Active 2023 49078 56383 1 1 time Intrad ermal False DISCONTINUE as of 11/14/2023: Tubersol 5 tub. unit/0.1 mL intradermal injection solution [Tuberculin PPD] 11/13 Inactiv e 2023 55266 56849 0 Tubersol 5 tub. unit/0.1 mL intradermal injection solution 0.1mL Intradermal 1 time For PPD 2nd Step Give 2nd Step PPD Day 1 and Read results Day 3 (schedule 7 days after 1st READ) 0.1mL 11/25 Active 2023 55581 67445 1 1 time Intrad ermal False Tylenol 325 mg tablet 2 tabs By Mouth Every 4 hours as needed For Pain DO NOT EXCEED 3000 MG APAP/24 Hours 2 tabs 2023 Active 2023 70522 21207 0 Every 4 hours as needed By Mouth False Tylenol 325 mg tablet 2 tabs By Mouth Every 4 hours as needed For Fever >100 DO NOT EXCEED 3000 MG APAP/24 Hours 2 tabs 202300 Active 2023 93290 51625 0 Every 4 hours as needed By Mouth False Dulcolax (bisacodyl) 10 mg rectal suppository One Suppository per rectum PRN if Milk of Magnisia ineffective. Give on day 5 of no BM 1 sup 2023 Active 2023 07943 01033 1 Daily as needed Rectal False Fleet Enema 19 gram-7 gram/118 mL Administer per rectum PRN one time if dulcolax suppository not effective. Give on day 6 of no BM 1 202300 Active 2023 09745 26677 6 Daily as needed Rectal False Dextrose 50 % in water (D50W) intravenous solution [generic] Dextrose 50% reyes 20-50 ml (slow push) Intravenous if Glucagon not effective after 15 minutes. CALL 911 for ED Evaluation. 50% reyes 202300 0000 Active 2023 80620 84769 9 Intrav enous False Glucagon (HCl) Emergency Kit 1 mg solution for injection Administer Glucagon 1 mg Intramuscular if 15 minutes after GLucose Gel is administered Glucose remains less than 70 1 mg 2023 Active 2023 41718 46043 2 Intram uscula r False Glucose Gel 40 % oral gel [Dextrose] PRN If resident is unable to swallow (with or without symptoms) and Glucose results less than 70 give GLucose 40% Gel 1 tube orally - Recheck Glucose 15 minutes after administratio n. 1 tube 2023 Active 2023 79145 98922 8 By Mouth False Lorazepam 0.5 mg tablet [generic] 0.5 mg By Mouth Every 8 hours as needed For Anxiety 0.5 mg 2023 Active 2023 03351 81032 0 Every 8 hours as needed By Mouth False Potassium chloride ER 20 mEq tablet,exte nded release [generic] 40 meq By Mouth Once daily For Hypokalemia 40 meq 11/13 Inactiv e 2023 43330 98562 1 Once daily By Mouth False Colesevelam 625 mg tablet [generic] 1250 mg By Mouth Twice daily For TYPE 2 DIABETES MELLITUS WITHOUT COMPLICATIONS 1250 mg 2023 Active 2023 53880 44314 1 Twice daily By Mouth E11.9 False Pioglitazon e 15 mg tablet [generic] 15 mg By Mouth Once daily For TYPE 2 DIABETES MELLITUS WITHOUT COMPLICATIONS 15 mg 2023 Active 2023 39347 33740 1 Once daily By Mouth E11.9 False Cholecalcif hardeep (vitamin D3) 50 mcg (2,000 unit) tablet [generic] 50 mcg By Mouth Once daily For Supplement 50 mcg 2023 Active 2023 52052 27369 1 Once daily By Mouth False Colchicine 0.6 mg tablet [generic] 0.6 mg By Mouth Twice daily As Needed For Gout 0.6 mg 2023 Active 2023 75785 22949 4 Twice daily By Mouth False Levothyroxi ne 200 mcg tablet [generic] 200 mcg By Mouth Once daily For Hypothyroidis m 200 mcg 2023 Active 2023 90278 19653 0 Once daily By Mouth False Ondansetron 4 mg disintegrat ing tablet [generic] 4 mg By Mouth Every 6 hours as needed For Nausea 4 mg 11/12 Inactiv e 2023 67194 45810 4 Every 6 hours as needed By Mouth False Docusate sodium 100 mg capsule [generic] 100 mg By Mouth Twice daily For Constipation 100 mg 2023 Active 2023 98847 81375 1 Twice daily By Mouth False Oxycodone 5 mg tablet [generic] 5 mg By Mouth Every 6 hours as needed For Pain 5 mg 11/12 Inactiv e 2023 94561 55866 1 Every 6 hours as needed By Mouth False Oxycodone 5 mg tablet [generic] 5 mg By Mouth Every 6 hours as needed For Pain 5 mg 2023 Active 2023 18123 15139 1 Every 6 hours as needed By Mouth False Milk of Magnesia 400 mg/5 mL oral suspension 30 ml By Mouth one time per day as needed if no BM x 3 days For Constipation 30 ml 2023 Active 2023 91363 35090 2 By Mouth False Ondansetron 4 mg disintegrat ing tablet [generic] 11/12 Inactiv e 2023 35308 26388 4 Ondansetron 4 mg disintegrat ing tablet [generic] 4 mg By Mouth Every 6 hours as needed For Nausea 4 mg 2023 Active 2023 54065 33147 4 Every 6 hours as needed By Mouth False Potassium chloride ER 10 mEq capsule,ext ended release [generic] 40 mEq By Mouth Once daily For hypokalemia 40 mEq 2023 Active 2023 47695 29804 1 Once daily By Mouth False Potassium chloride ER 10 mEq capsule,ext ended release [generic] 4 capsules By Mouth At bedtime For hypokalemia 4 capsule s 11/16 Active 2023 14623 63422 1 At bedtime By Mouth False Flomax 0.4 mg capsule 0.4 mg By Mouth At bedtime For Urinary retention 0.4 mg 2023 Active 2023 55819 01976 1 At bedtime By Mouth False STOOL [...] weight Temperature SpO2 Blood Sugar Pulse Respirations 91676 918 73841 5 75.00 mm[Hg] - Sitting 140.00 mm[Hg] - Sitting 65 NI 98.00 Tympanic 95.00 % 102.00 /min 18.00/min 55394 918 95911 9 94824 918 17650 2 75.00 mm[Hg] - Sitting 140.00 mm[Hg] - Sitting 98.00 Tympanic 102.00 /min 18.00/min 59641 918 94342 3 30949 918 34682 1 72.00 mm[Hg] - Sitting 138.00 mm[Hg] - Sitting 98.40 Tympanic 15861 918 55787 4 88.00/ min 18.00/min 39372 919 22934 4 71.00 mm[Hg] - Sitting 115.00 mm[Hg] - Sitting 98.30 Tympanic 97.00 % 86.00/ min 16.00/min 46425 919 39900 0 71.00 mm[Hg] - Sitting 115.00 mm[Hg] - Sitting 98.30 Tympanic 86.00/ min 16.00/min 16395 919 12545 7 71.00 mm[Hg] - Sitting 115.00 mm[Hg] - Sitting 98.30 Tympanic 86.00/ min 16.00/min 55803 920 29362 6 72.00 mm[Hg] - Sitting 112.00 mm[Hg] - Sitting 98.10 Tympanic 82.00/ min 18.00/min 00380 920 71466 0 75.00 mm[Hg] - Sitting 130.00 mm[Hg] - Sitting 98.40 Forehead Scan 93.00 % 88.00/ min 18.00/min 67152 920 34102 2 75.00 mm[Hg] - Lying Down 130.00 mm[Hg] - Lying Down 98.40 Tympanic 88.00/ min 18.00/min
--- OUTSIDE RECORDS SUMMARY | 2023-12-14 00:02 | External Medical Summary | Continuity Of Care Document ---
Author Name Unknown Address [address] [place] [address] [facility] () Care Team Providers Care Cotton Chopper Name Role Phone DO Parson Amy Primary Care Provider [phone] Allergies Allergy Reaction Start Date End Date [...] 3 0.1 mL 11/13 Inactiv e 2023 70502 98952 0 1 time Intrad ermal False Tubersol 5 tub. unit/0.1 mL intradermal injection solution [Tuberculin PPD] 0.1mL Intradermal 1 time For PPD 2nd Step Give 2nd Step PPD Day 1 and Read results Day 3 (schedule 7 days after 1st READ) 0.1mL 11/13 Inactiv e 2023 91027 47694 0 1 time Intrad ermal False DISCONTINUE as of 11/14/2023: Tubersol 5 tub. unit/0.1 mL intradermal injection solution [Tuberculin PPD] 11/13 Inactiv e 2023 22800 91293 0 Tubersol 5 tub. unit/0.1 mL intradermal injection solution 0.1 mL Intradermal 1 time For PPD Step 1 GIVE on Day 1 and read results Day 3 0.1 mL 11/16 Active 2023 89112 29640 1 1 time Intrad ermal False DISCONTINUE as of 11/14/2023: Tubersol 5 tub. unit/0.1 mL intradermal injection solution [Tuberculin PPD] 11/13 Inactiv e 2023 71825 52787 0 Tubersol 5 tub. unit/0.1 mL intradermal injection solution 0.1mL Intradermal 1 time For PPD 2nd Step Give 2nd Step PPD Day 1 and Read results Day 3 (schedule 7 days after 1st READ) 0.1mL 11/25 Active 2023 12665 46330 1 1 time Intrad ermal False Tylenol 325 mg tablet 2 tabs By Mouth Every 4 hours as needed For Pain DO NOT EXCEED 3000 MG APAP/24 Hours 2 tabs 2023 Active 2023 56265 00247 0 Every 4 hours as needed By Mouth False Tylenol 325 mg tablet 2 tabs By Mouth Every 4 hours as needed For Fever >100 DO NOT EXCEED 3000 MG APAP/24 Hours 2 tabs 202300 Active 2023 99663 94871 0 Every 4 hours as needed By Mouth False Dulcolax (bisacodyl) 10 mg rectal suppository One Suppository per rectum PRN if Milk of Magnisia ineffective. Give on day 5 of no BM 1 sup 2023 Active 2023 62302 28636 1 Daily as needed Rectal False Fleet Enema 19 gram-7 gram/118 mL Administer per rectum PRN one time if dulcolax suppository not effective. Give on day 6 of no BM 1 202300 Active 2023 63962 16801 6 Daily as needed Rectal False Dextrose 50 % in water (D50W) intravenous solution [generic] Dextrose 50% reyes 20-50 ml (slow push) Intravenous if Glucagon not effective after 15 minutes. CALL 911 for ED Evaluation. 50% ryees 202300 0000 Active 2023 60054 15829 9 Intrav enous False Glucagon (HCl) Emergency Kit 1 mg solution for injection Administer Glucagon 1 mg Intramuscular if 15 minutes after GLucose Gel is administered Glucose remains less than 70 1 mg 2023 Active 2023 08295 00957 2 Intram uscula r False Glucose Gel 40 % oral gel [Dextrose] PRN If resident is unable to swallow (with or without symptoms) and Glucose results less than 70 give GLucose 40% Gel 1 tube orally - Recheck Glucose 15 minutes after administratio n. 1 tube 2023 Active 2023 02933 38908 8 By Mouth False Lorazepam 0.5 mg tablet [generic] 0.5 mg By Mouth Every 8 hours as needed For Anxiety 0.5 mg 2023 Active 2023 89431 69856 0 Every 8 hours as needed By Mouth False Potassium chloride ER 20 mEq tablet,exte nded release [generic] 40 meq By Mouth Once daily For Hypokalemia 40 meq 11/13 Inactiv e 2023 86274 70943 1 Once daily By Mouth False Colesevelam 625 mg tablet [generic] 1250 mg By Mouth Twice daily For TYPE 2 DIABETES MELLITUS WITHOUT COMPLICATIONS 1250 mg 2023 Active 2023 65453 88185 1 Twice daily By Mouth E11.9 False Pioglitazon e 15 mg tablet [generic] 15 mg By Mouth Once daily For TYPE 2 DIABETES MELLITUS WITHOUT COMPLICATIONS 15 mg 2023 Active 2023 00997 89894 1 Once daily By Mouth E11.9 False Cholecalcif hardeep (vitamin D3) 50 mcg (2,000 unit) tablet [generic] 50 mcg By Mouth Once daily For Supplement 50 mcg 2023 Active 2023 48475 69234 1 Once daily By Mouth False Colchicine 0.6 mg tablet [generic] 0.6 mg By Mouth Twice daily As Needed For Gout 0.6 mg 2023 Active 2023 68817 72347 4 Twice daily By Mouth False Levothyroxi ne 200 mcg tablet [generic] 200 mcg By Mouth Once daily For Hypothyroidis m 200 mcg 2023 Active 2023 06051 28202 0 Once daily By Mouth False Ondansetron 4 mg disintegrat ing tablet [generic] 4 mg By Mouth Every 6 hours as needed For Nausea 4 mg 11/12 Inactiv e 2023 72863 38775 4 Every 6 hours as needed By Mouth False Docusate sodium 100 mg capsule [generic] 100 mg By Mouth Twice daily For Constipation 100 mg 2023 Active 2023 35676 51394 1 Twice daily By Mouth False Oxycodone 5 mg tablet [generic] 5 mg By Mouth Every 6 hours as needed For Pain 5 mg 11/12 Inactiv e 2023 97822 99785 1 Every 6 hours as needed By Mouth False Oxycodone 5 mg tablet [generic] 5 mg By Mouth Every 6 hours as needed For Pain 5 mg 2023 Active 2023 78605 31048 1 Every 6 hours as needed By Mouth False Milk of Magnesia 400 mg/5 mL oral suspension 30 ml By Mouth one time per day as needed if no BM x 3 days For Constipation 30 ml 2023 Active 2023 13331 78106 2 By Mouth False Ondansetron 4 mg disintegrat ing tablet [generic] 11/12 Inactiv e 2023 25132 99070 4 Ondansetron 4 mg disintegrat ing tablet [generic] 4 mg By Mouth Every 6 hours as needed For Nausea 4 mg 2023 Active 2023 26899 14196 4 Every 6 hours as needed By Mouth False Potassium chloride ER 10 mEq capsule,ext ended release [generic] 40 mEq By Mouth Once daily For hypokalemia 40 mEq 2023 Active 2023 62278 85836 1 Once daily By Mouth False Potassium chloride ER 10 mEq capsule,ext ended release [generic] 4 capsules By Mouth At bedtime For hypokalemia 4 capsule s 11/16 Active 2023 94664 19337 1 At bedtime By Mouth False Flomax 0.4 mg capsule 0.4 mg By Mouth At bedtime For Urinary retention 0.4 mg 2023 Active 2023 11610 26598 1 At bedtime By Mouth False STOOL [...] weight Temperature SpO2 Blood Sugar Pulse Respirations 08983 918 58930 5 75.00 mm[Hg] - Sitting 140.00 mm[Hg] - Sitting 65 NI 98.00 Tympanic 95.00 % 102.00 /min 18.00/min 95161 918 02365 9 75538 918 60841 2 75.00 mm[Hg] - Sitting 140.00 mm[Hg] - Sitting 98.00 Tympanic 102.00 /min 18.00/min 85173 918 79119 3 66171 918 93691 1 72.00 mm[Hg] - Sitting 138.00 mm[Hg] - Sitting 98.40 Tympanic 52636 918 79210 4 88.00/ min 18.00/min 27944 919 61169 4 71.00 mm[Hg] - Sitting 115.00 mm[Hg] - Sitting 98.30 Tympanic 97.00 % 86.00/ min 16.00/min 08992 919 52628 0 71.00 mm[Hg] - Sitting 115.00 mm[Hg] - Sitting 98.30 Tympanic 86.00/ min 16.00/min 03737 919 98348 7 71.00 mm[Hg] - Sitting 115.00 mm[Hg] - Sitting 98.30 Tympanic 86.00/ min 16.00/min
--- OUTSIDE RECORDS SUMMARY | 2023-12-14 00:02 | External Medical Summary | Continuity Of Care Document ---
Author Name Unknown Address [address] [place] [address] Organization [facility] [place] () Care Team Providers Care Feather Renovator Name Role Phone DO Parson Amy Primary Care Provider [phone] Allergies Allergy Reaction Start Date End Date [...] 3 0.1 mL 11/13 Inactiv e 2023 23006 12189 0 1 time Intrad ermal False Tubersol 5 tub. unit/0.1 mL intradermal injection solution [Tuberculin PPD] 0.1mL Intradermal 1 time For PPD 2nd Step Give 2nd Step PPD Day 1 and Read results Day 3 (schedule 7 days after 1st READ) 0.1mL 11/13 Inactiv e 2023 07038 59539 0 1 time Intrad ermal False DISCONTINUE as of 11/14/2023: Tubersol 5 tub. unit/0.1 mL intradermal injection solution [Tuberculin PPD] 11/13 Inactiv e 2023 45721 43615 0 Tubersol 5 tub. unit/0.1 mL intradermal injection solution 0.1 mL Intradermal 1 time For PPD Step 1 GIVE on Day 1 and read results Day 3 0.1 mL 11/16 Active 2023 20314 65834 1 1 time Intrad ermal False DISCONTINUE as of 11/14/2023: Tubersol 5 tub. unit/0.1 mL intradermal injection solution [Tuberculin PPD] 11/13 Inactiv e 2023 77696 51999 0 Tubersol 5 tub. unit/0.1 mL intradermal injection solution 0.1mL Intradermal 1 time For PPD 2nd Step Give 2nd Step PPD Day 1 and Read results Day 3 (schedule 7 days after 1st READ) 0.1mL 11/25 Active 2023 50049 38766 1 1 time Intrad ermal False Tylenol 325 mg tablet 2 tabs By Mouth Every 4 hours as needed For Pain DO NOT EXCEED 3000 MG APAP/24 Hours 2 tabs 2023 Active 2023 76089 47346 0 Every 4 hours as needed By Mouth False Tylenol 325 mg tablet 2 tabs By Mouth Every 4 hours as needed For Fever >100 DO NOT EXCEED 3000 MG APAP/24 Hours 2 tabs 202300 Active 2023 78529 35502 0 Every 4 hours as needed By Mouth False Dulcolax (bisacodyl) 10 mg rectal suppository One Suppository per rectum PRN if Milk of Magnisia ineffective. Give on day 5 of no BM 1 sup 2023 Active 2023 47144 70762 1 Daily as needed Rectal False Fleet Enema 19 gram-7 gram/118 mL Administer per rectum PRN one time if dulcolax suppository not effective. Give on day 6 of no BM 1 202300 Active 2023 42466 39650 6 Daily as needed Rectal False Dextrose 50 % in water (D50W) intravenous solution [generic] Dextrose 50% reyes 20-50 ml (slow push) Intravenous if Glucagon not effective after 15 minutes. CALL 911 for ED Evaluation. 50% reyes 202300 0000 Active 2023 63326 82956 9 Intrav enous False Glucagon (HCl) Emergency Kit 1 mg solution for injection Administer Glucagon 1 mg Intramuscular if 15 minutes after GLucose Gel is administered Glucose remains less than 70 1 mg 2023 Active 2023 15369 35377 2 Intram uscula r False Glucose Gel 40 % oral gel [Dextrose] PRN If resident is unable to swallow (with or without symptoms) and Glucose results less than 70 give GLucose 40% Gel 1 tube orally - Recheck Glucose 15 minutes after administratio n. 1 tube 2023 Active 2023 23606 21342 8 By Mouth False Lorazepam 0.5 mg tablet [generic] 0.5 mg By Mouth Every 8 hours as needed For Anxiety 0.5 mg 2023 Active 2023 64846 08170 0 Every 8 hours as needed By Mouth False Potassium chloride ER 20 mEq tablet,exte nded release [generic] 40 meq By Mouth Once daily For Hypokalemia 40 meq 11/13 Inactiv e 2023 36309 45359 1 Once daily By Mouth False Colesevelam 625 mg tablet [generic] 1250 mg By Mouth Twice daily For TYPE 2 DIABETES MELLITUS WITHOUT COMPLICATIONS 1250 mg 2023 Active 2023 97327 16780 1 Twice daily By Mouth E11.9 False Pioglitazon e 15 mg tablet [generic] 15 mg By Mouth Once daily For TYPE 2 DIABETES MELLITUS WITHOUT COMPLICATIONS 15 mg 2023 Active 2023 54050 44663 1 Once daily By Mouth E11.9 False Cholecalcif hardeep (vitamin D3) 50 mcg (2,000 unit) tablet [generic] 50 mcg By Mouth Once daily For Supplement 50 mcg 2023 Active 2023 64677 33874 1 Once daily By Mouth False Colchicine 0.6 mg tablet [generic] 0.6 mg By Mouth Twice daily As Needed For Gout 0.6 mg 2023 Active 2023 51005 63270 4 Twice daily By Mouth False Levothyroxi ne 200 mcg tablet [generic] 200 mcg By Mouth Once daily For Hypothyroidis m 200 mcg 2023 Active 2023 98719 19619 0 Once daily By Mouth False Ondansetron 4 mg disintegrat ing tablet [generic] 4 mg By Mouth Every 6 hours as needed For Nausea 4 mg 11/12 Inactiv e 2023 18237 39498 4 Every 6 hours as needed By Mouth False Docusate sodium 100 mg capsule [generic] 100 mg By Mouth Twice daily For Constipation 100 mg 2023 Active 2023 89700 03602 1 Twice daily By Mouth False Oxycodone 5 mg tablet [generic] 5 mg By Mouth Every 6 hours as needed For Pain 5 mg 11/12 Inactiv e 2023 04919 09821 1 Every 6 hours as needed By Mouth False Oxycodone 5 mg tablet [generic] 5 mg By Mouth Every 6 hours as needed For Pain 5 mg 2023 Active 2023 58388 76836 1 Every 6 hours as needed By Mouth False Milk of Magnesia 400 mg/5 mL oral suspension 30 ml By Mouth one time per day as needed if no BM x 3 days For Constipation 30 ml 2023 Active 2023 58693 99028 2 By Mouth False Ondansetron 4 mg disintegrat ing tablet [generic] 11/12 Inactiv e 2023 48675 28899 4 Ondansetron 4 mg disintegrat ing tablet [generic] 4 mg By Mouth Every 6 hours as needed For Nausea 4 mg 2023 Active 2023 14930 86846 4 Every 6 hours as needed By Mouth False Potassium chloride ER 10 mEq capsule,ext ended release [generic] 40 mEq By Mouth Once daily For hypokalemia 40 mEq 2023 Active 2023 87782 66532 1 Once daily By Mouth False Potassium chloride ER 10 mEq capsule,ext ended release [generic] 4 capsules By Mouth At bedtime For hypokalemia 4 capsule s 11/16 Active 2023 37309 88351 1 At bedtime By Mouth False Flomax 0.4 mg capsule 0.4 mg By Mouth At bedtime For Urinary retention 0.4 mg 2023 Active 2023 96911 46756 1 At bedtime By Mouth False STOOL [...] weight Temperature SpO2 Blood Sugar Pulse Respirations 93293 918 31242 5 75.00 mm[Hg] - Sitting 140.00 mm[Hg] - Sitting 65 NI 98.00 Tympanic 95.00 % 102.00 /min 18.00/min 87162 918 37872 9 95781 918 10856 2 75.00 mm[Hg] - Sitting 140.00 mm[Hg] - Sitting 98.00 Tympanic 102.00 /min 18.00/min 52870 918 42812 3 68187 918 50898 1 72.00 mm[Hg] - Sitting 138.00 mm[Hg] - Sitting 98.40 Tympanic 13679 918 47659 4 88.00/ min 18.00/min 21227 919 00870 4 71.00 mm[Hg] - Sitting 115.00 mm[Hg] - Sitting 98.30 Tympanic 97.00 % 86.00/ min 16.00/min 45243 919 95878 0 71.00 mm[Hg] - Sitting 115.00 mm[Hg] - Sitting 98.30 Tympanic 86.00/ min 16.00/min 19634 919 66874 7 71.00 mm[Hg] - Sitting 115.00 mm[Hg] - Sitting 98.30 Tympanic 86.00/ min 16.00/min 20191 920 96032 6 72.00 mm[Hg] - Sitting 112.00 mm[Hg] - Sitting 98.10 Tympanic 82.00/ min 18.00/min 88762 920 30119 0 75.00 mm[Hg] - Sitting 130.00 mm[Hg] - Sitting 98.40 Forehead Scan 93.00 % 88.00/ min 18.00/min 21791 920 75469 2 75.00 mm[Hg] - Lying Down 130.00 mm[Hg] - Lying Down 98.40 Tympanic 88.00/ min 18.00/min
--- OUTSIDE RECORDS SUMMARY | 2023-12-14 00:02 | External Medical Summary | Continuity Of Care Document ---
Author Name Unknown Address [address] [place] [address] Organization [facility] [place] () Care Team Providers Care Electronic Publishing Specialist Name Role Phone DO Parson Amy Primary Care Provider [phone] Allergies Allergy Reaction Start Date End Date [...] 3 0.1 mL 11/13 Inactiv e 2023 73468 39651 0 1 time Intrad ermal False Tubersol 5 tub. unit/0.1 mL intradermal injection solution [Tuberculin PPD] 0.1mL Intradermal 1 time For PPD 2nd Step Give 2nd Step PPD Day 1 and Read results Day 3 (schedule 7 days after 1st READ) 0.1mL 11/13 Inactiv e 2023 05588 65669 0 1 time Intrad ermal False DISCONTINUE as of 11/14/2023: Tubersol 5 tub. unit/0.1 mL intradermal injection solution [Tuberculin PPD] 11/13 Inactiv e 2023 78583 28884 0 Tubersol 5 tub. unit/0.1 mL intradermal injection solution 0.1 mL Intradermal 1 time For PPD Step 1 GIVE on Day 1 and read results Day 3 0.1 mL 11/16 Active 2023 89227 84620 1 1 time Intrad ermal False DISCONTINUE as of 11/14/2023: Tubersol 5 tub. unit/0.1 mL intradermal injection solution [Tuberculin PPD] 11/13 Inactiv e 2023 93903 30799 0 Tubersol 5 tub. unit/0.1 mL intradermal injection solution 0.1mL Intradermal 1 time For PPD 2nd Step Give 2nd Step PPD Day 1 and Read results Day 3 (schedule 7 days after 1st READ) 0.1mL 11/25 Active 2023 50257 61947 1 1 time Intrad ermal False Tylenol 325 mg tablet 2 tabs By Mouth Every 4 hours as needed For Pain DO NOT EXCEED 3000 MG APAP/24 Hours 2 tabs 2023 Active 2023 56552 46487 0 Every 4 hours as needed By Mouth False Tylenol 325 mg tablet 2 tabs By Mouth Every 4 hours as needed For Fever >100 DO NOT EXCEED 3000 MG APAP/24 Hours 2 tabs 202300 Active 2023 68536 41282 0 Every 4 hours as needed By Mouth False Dulcolax (bisacodyl) 10 mg rectal suppository One Suppository per rectum PRN if Milk of Magnisia ineffective. Give on day 5 of no BM 1 sup 2023 Active 2023 50429 32868 1 Daily as needed Rectal False Fleet Enema 19 gram-7 gram/118 mL Administer per rectum PRN one time if dulcolax suppository not effective. Give on day 6 of no BM 1 202300 Active 2023 14431 27328 6 Daily as needed Rectal False Dextrose 50 % in water (D50W) intravenous solution [generic] Dextrose 50% reyes 20-50 ml (slow push) Intravenous if Glucagon not effective after 15 minutes. CALL 911 for ED Evaluation. 50% reyes 202300 0000 Active 2023 26881 83344 9 Intrav enous False Glucagon (HCl) Emergency Kit 1 mg solution for injection Administer Glucagon 1 mg Intramuscular if 15 minutes after GLucose Gel is administered Glucose remains less than 70 1 mg 2023 Active 2023 81319 56666 2 Intram uscula r False Glucose Gel 40 % oral gel [Dextrose] PRN If resident is unable to swallow (with or without symptoms) and Glucose results less than 70 give GLucose 40% Gel 1 tube orally - Recheck Glucose 15 minutes after administratio n. 1 tube 2023 Active 2023 55502 40409 8 By Mouth False Lorazepam 0.5 mg tablet [generic] 0.5 mg By Mouth Every 8 hours as needed For Anxiety 0.5 mg 2023 Active 2023 86573 33904 0 Every 8 hours as needed By Mouth False Potassium chloride ER 20 mEq tablet,exte nded release [generic] 40 meq By Mouth Once daily For Hypokalemia 40 meq 11/13 Inactiv e 2023 16054 79423 1 Once daily By Mouth False Colesevelam 625 mg tablet [generic] 1250 mg By Mouth Twice daily For TYPE 2 DIABETES MELLITUS WITHOUT COMPLICATIONS 1250 mg 2023 Active 2023 23876 15431 1 Twice daily By Mouth E11.9 False Pioglitazon e 15 mg tablet [generic] 15 mg By Mouth Once daily For TYPE 2 DIABETES MELLITUS WITHOUT COMPLICATIONS 15 mg 2023 Active 2023 34859 45270 1 Once daily By Mouth E11.9 False Cholecalcif hardeep (vitamin D3) 50 mcg (2,000 unit) tablet [generic] 50 mcg By Mouth Once daily For Supplement 50 mcg 2023 Active 2023 68534 26922 1 Once daily By Mouth False Colchicine 0.6 mg tablet [generic] 0.6 mg By Mouth Twice daily As Needed For Gout 0.6 mg 2023 Active 2023 52642 27324 4 Twice daily By Mouth False Levothyroxi ne 200 mcg tablet [generic] 200 mcg By Mouth Once daily For Hypothyroidis m 200 mcg 2023 Active 2023 76836 24392 0 Once daily By Mouth False Ondansetron 4 mg disintegrat ing tablet [generic] 4 mg By Mouth Every 6 hours as needed For Nausea 4 mg 11/12 Inactiv e 2023 10771 35302 4 Every 6 hours as needed By Mouth False Docusate sodium 100 mg capsule [generic] 100 mg By Mouth Twice daily For Constipation 100 mg 2023 Active 2023 89387 49817 1 Twice daily By Mouth False Oxycodone 5 mg tablet [generic] 5 mg By Mouth Every 6 hours as needed For Pain 5 mg 11/12 Inactiv e 2023 89679 85840 1 Every 6 hours as needed By Mouth False Oxycodone 5 mg tablet [generic] 5 mg By Mouth Every 6 hours as needed For Pain 5 mg 2023 Active 2023 96911 88039 1 Every 6 hours as needed By Mouth False Milk of Magnesia 400 mg/5 mL oral suspension 30 ml By Mouth one time per day as needed if no BM x 3 days For Constipation 30 ml 2023 Active 2023 52970 60109 2 By Mouth False Ondansetron 4 mg disintegrat ing tablet [generic] 11/12 Inactiv e 2023 08343 17380 4 Ondansetron 4 mg disintegrat ing tablet [generic] 4 mg By Mouth Every 6 hours as needed For Nausea 4 mg 2023 Active 2023 63741 95462 4 Every 6 hours as needed By Mouth False Potassium chloride ER 10 mEq capsule,ext ended release [generic] 40 mEq By Mouth Once daily For hypokalemia 40 mEq 2023 Active 2023 70895 82818 1 Once daily By Mouth False Potassium chloride ER 10 mEq capsule,ext ended release [generic] 4 capsules By Mouth At bedtime For hypokalemia 4 capsule s 11/16 Active 2023 85300 58071 1 At bedtime By Mouth False Flomax 0.4 mg capsule 0.4 mg By Mouth At bedtime For Urinary retention 0.4 mg 2023 Active 2023 63896 03204 1 At bedtime By Mouth False STOOL CULTURE Once daily Obtain stool culture, add C. Diff to routine stool culture For Rule out C. Diff 1x 2023 Active 2023 Once daily Other False Butrans 5 mcg/hour transdermal patch 1 patch Transdermal Every 7 Days For Pain 1 patch 2023 Active 2023 36070 84816 4 Every week Transd ermal False Pantoprazol e 40 mg tablet,nu yed release [generic] 40 mg By Mouth Twice daily For gerd 40 mg 2023 Active 2023 96365 45737 0 Twice daily By Mouth False Problems [...] Temperature SpO2 Blood Sugar Pulse Respirations 918 29735 5 75.00 mm[Hg] - Sitting 140.00 mm[Hg] - Sitting 65 NI 98.00 Tympanic 95.00 % 102.00 /min 18.00/min 22864 918 72252 9 45524 918 89505 2 75.00 mm[Hg] - Sitting 140.00 mm[Hg] - Sitting 98.00 Tympanic 102.00 /min 18.00/min 28135 918 35738 3 36432 918 14876 1 72.00 mm[Hg] - Sitting 138.00 mm[Hg] - Sitting 98.40 Tympanic 918 35570 4 88.00/ min 18.00/min 919 17237 4 71.00 mm[Hg] - Sitting 115.00 mm[Hg] - Sitting 98.30 Tympanic 97.00 % 86.00/ min 16.00/min 53819 919 63488 0 71.00 mm[Hg] - Sitting 115.00 mm[Hg] - Sitting 98.30 Tympanic 86.00/ min 16.00/min 83106 919 02962 7 71.00 mm[Hg] - Sitting 115.00 mm[Hg] - Sitting 98.30 Tympanic 86.00/ min 16.00/min 01594 920 12894 6 72.00 mm[Hg] - Sitting 112.00 mm[Hg] - Sitting 98.10 Tympanic 82.00/ min 18.00/min 56345 920 70425 0 75.00 mm[Hg] - Sitting 130.00 mm[Hg] - Sitting 98.40 Forehead Scan 93.00 % 88.00/ min 18.00/min 78442 920 96723 2 75.00 mm[Hg] - Lying Down 130.00 mm[Hg] - Lying Down 98.40 Tympanic 88.00/ min 18.00/min
--- OUTSIDE RECORDS SUMMARY | 2023-12-14 00:02 | External Medical Summary | Continuity Of Care Document ---
Author Name Unknown Address [address] [place] [address] Organization [facility] () Care Team Providers Care Lawn Sprinkler Installer Name Role Phone DO Parson Amy Primary Care Provider [phone] Allergies Allergy Reaction Start Date End Date [...] 3 0.1 mL 11/13 Inactiv e 2023 65162 97008 0 1 time Intrad ermal False Tubersol 5 tub. unit/0.1 mL intradermal injection solution [Tuberculin PPD] 0.1mL Intradermal 1 time For PPD 2nd Step Give 2nd Step PPD Day 1 and Read results Day 3 (schedule 7 days after 1st READ) 0.1mL 11/13 Inactiv e 2023 64752 59418 0 1 time Intrad ermal False DISCONTINUE as of 11/14/2023: Tubersol 5 tub. unit/0.1 mL intradermal injection solution [Tuberculin PPD] 11/13 Inactiv e 2023 46363 65174 0 Tubersol 5 tub. unit/0.1 mL intradermal injection solution 0.1 mL Intradermal 1 time For PPD Step 1 GIVE on Day 1 and read results Day 3 0.1 mL 11/16 Active 2023 65125 02093 1 1 time Intrad ermal False DISCONTINUE as of 11/14/2023: Tubersol 5 tub. unit/0.1 mL intradermal injection solution [Tuberculin PPD] 11/13 Inactiv e 2023 37376 82012 0 Tubersol 5 tub. unit/0.1 mL intradermal injection solution 0.1mL Intradermal 1 time For PPD 2nd Step Give 2nd Step PPD Day 1 and Read results Day 3 (schedule 7 days after 1st READ) 0.1mL 11/25 Active 2023 72079 02360 1 1 time Intrad ermal False Tylenol 325 mg tablet 2 tabs By Mouth Every 4 hours as needed For Pain DO NOT EXCEED 3000 MG APAP/24 Hours 2 tabs 2023 Active 2023 74690 59610 0 Every 4 hours as needed By Mouth False Tylenol 325 mg tablet 2 tabs By Mouth Every 4 hours as needed For Fever >100 DO NOT EXCEED 3000 MG APAP/24 Hours 2 tabs 202300 Active 2023 35589 64394 0 Every 4 hours as needed By Mouth False Dulcolax (bisacodyl) 10 mg rectal suppository One Suppository per rectum PRN if Milk of Magnisia ineffective. Give on day 5 of no BM 1 sup 2023 Active 2023 53971 04273 1 Daily as needed Rectal False Fleet Enema 19 gram-7 gram/118 mL Administer per rectum PRN one time if dulcolax suppository not effective. Give on day 6 of no BM 1 202300 Active 2023 05167 95588 6 Daily as needed Rectal False Dextrose 50 % in water (D50W) intravenous solution [generic] Dextrose 50% reyes 20-50 ml (slow push) Intravenous if Glucagon not effective after 15 minutes. CALL 911 for ED Evaluation. 50% reyes 202300 0000 Active 2023 87341 99811 9 Intrav enous False Glucagon (HCl) Emergency Kit 1 mg solution for injection Administer Glucagon 1 mg Intramuscular if 15 minutes after GLucose Gel is administered Glucose remains less than 70 1 mg 2023 Active 2023 56863 75891 2 Intram uscula r False Glucose Gel 40 % oral gel [Dextrose] PRN If resident is unable to swallow (with or without symptoms) and Glucose results less than 70 give GLucose 40% Gel 1 tube orally - Recheck Glucose 15 minutes after administratio n. 1 tube 2023 Active 2023 27110 70408 8 By Mouth False Lorazepam 0.5 mg tablet [generic] 0.5 mg By Mouth Every 8 hours as needed For Anxiety 0.5 mg 2023 Active 2023 58837 59853 0 Every 8 hours as needed By Mouth False Potassium chloride ER 20 mEq tablet,exte nded release [generic] 40 meq By Mouth Once daily For Hypokalemia 40 meq 11/13 Inactiv e 2023 93186 14787 1 Once daily By Mouth False Colesevelam 625 mg tablet [generic] 1250 mg By Mouth Twice daily For TYPE 2 DIABETES MELLITUS WITHOUT COMPLICATIONS 1250 mg 2023 Active 2023 45187 65984 1 Twice daily By Mouth E11.9 False Pioglitazon e 15 mg tablet [generic] 15 mg By Mouth Once daily For TYPE 2 DIABETES MELLITUS WITHOUT COMPLICATIONS 15 mg 2023 Active 2023 56146 23541 1 Once daily By Mouth E11.9 False Cholecalcif hardeep (vitamin D3) 50 mcg (2,000 unit) tablet [generic] 50 mcg By Mouth Once daily For Supplement 50 mcg 2023 Active 2023 10675 97210 1 Once daily By Mouth False Colchicine 0.6 mg tablet [generic] 0.6 mg By Mouth Twice daily As Needed For Gout 0.6 mg 2023 Active 2023 98690 98051 4 Twice daily By Mouth False Levothyroxi ne 200 mcg tablet [generic] 200 mcg By Mouth Once daily For Hypothyroidis m 200 mcg 2023 Active 2023 73632 31723 0 Once daily By Mouth False Ondansetron 4 mg disintegrat ing tablet [generic] 4 mg By Mouth Every 6 hours as needed For Nausea 4 mg 11/12 Inactiv e 2023 53725 54230 4 Every 6 hours as needed By Mouth False Docusate sodium 100 mg capsule [generic] 100 mg By Mouth Twice daily For Constipation 100 mg 2023 Active 2023 01254 59521 1 Twice daily By Mouth False Oxycodone 5 mg tablet [generic] 5 mg By Mouth Every 6 hours as needed For Pain 5 mg 11/12 Inactiv e 2023 22523 76697 1 Every 6 hours as needed By Mouth False Oxycodone 5 mg tablet [generic] 5 mg By Mouth Every 6 hours as needed For Pain 5 mg 2023 Active 2023 37259 91367 1 Every 6 hours as needed By Mouth False Milk of Magnesia 400 mg/5 mL oral suspension 30 ml By Mouth one time per day as needed if no BM x 3 days For Constipation 30 ml 2023 Active 2023 46920 26286 2 By Mouth False Ondansetron 4 mg disintegrat ing tablet [generic] 11/12 Inactiv e 2023 17748 23213 4 Ondansetron 4 mg disintegrat ing tablet [generic] 4 mg By Mouth Every 6 hours as needed For Nausea 4 mg 2023 Active 2023 74458 88664 4 Every 6 hours as needed By Mouth False Potassium chloride ER 10 mEq capsule,ext ended release [generic] 40 mEq By Mouth Once daily For hypokalemia 40 mEq 2023 Active 2023 32324 11718 1 Once daily By Mouth False Potassium chloride ER 10 mEq capsule,ext ended release [generic] 4 capsules By Mouth At bedtime For hypokalemia 4 capsule s 11/16 Active 2023 34785 15314 1 At bedtime By Mouth False Flomax 0.4 mg capsule 0.4 mg By Mouth At bedtime For Urinary retention 0.4 mg 2023 Active 2023 75782 44672 1 At bedtime By Mouth False STOOL [...] Temperature SpO2 Blood Sugar Pulse Respirations 8 28726 5 75.00 mm[Hg] - Sitting 140.00 mm[Hg] - Sitting 65 NI 98.00 Tympanic 95.00 % 102.00 /min 18.00/min 8 07520 9 64450 918 90278 2 75.00 mm[Hg] - Sitting 140.00 mm[Hg] - Sitting 98.00 Tympanic 102.00 /min 18.00/min 33199 918 70283 3 42767 918 75595 1 72.00 mm[Hg] - Sitting 138.00 mm[Hg] - Sitting 98.40 Tympanic 90825 8 79995 4 88.00/ min 18.00/min 919 51687 4 71.00 mm[Hg] - Sitting 115.00 mm[Hg] - Sitting 98.30 Tympanic 97.00 % 86.00/ min 16.00/min 95278 919 41599 0 71.00 mm[Hg] - Sitting 115.00 mm[Hg] - Sitting 98.30 Tympanic 86.00/ min 16.00/min 16316 919 30688 7 71.00 mm[Hg] - Sitting 115.00 mm[Hg] - Sitting 98.30 Tympanic 86.00/ min 16.00/min
--- OUTSIDE RECORDS SUMMARY | 2023-12-14 00:02 | External Medical Summary | Continuity Of Care Document ---
Author Name Unknown Address [address] [place] [address] Organization [facility] [place] () Care Team Providers Care Letter Carrier Name Role Phone DO Parson Amy Primary Care Provider [phone] Allergies Allergy Reaction Start Date End Date [...] 3 0.1 mL 11/13 Inactiv e 2023 30646 18097 0 1 time Intrad ermal False Tubersol 5 tub. unit/0.1 mL intradermal injection solution [Tuberculin PPD] 0.1mL Intradermal 1 time For PPD 2nd Step Give 2nd Step PPD Day 1 and Read results Day 3 (schedule 7 days after 1st READ) 0.1mL 11/13 Inactiv e 2023 05634 56339 0 1 time Intrad ermal False DISCONTINUE as of 11/14/2023: Tubersol 5 tub. unit/0.1 mL intradermal injection solution [Tuberculin PPD] 11/13 Inactiv e 2023 17027 50139 0 Tubersol 5 tub. unit/0.1 mL intradermal injection solution 0.1 mL Intradermal 1 time For PPD Step 1 GIVE on Day 1 and read results Day 3 0.1 mL 11/16 Active 2023 44625 20736 1 1 time Intrad ermal False DISCONTINUE as of 11/14/2023: Tubersol 5 tub. unit/0.1 mL intradermal injection solution [Tuberculin PPD] 11/13 Inactiv e 2023 22112 44372 0 Tubersol 5 tub. unit/0.1 mL intradermal injection solution 0.1mL Intradermal 1 time For PPD 2nd Step Give 2nd Step PPD Day 1 and Read results Day 3 (schedule 7 days after 1st READ) 0.1mL 11/25 Active 2023 77614 31841 1 1 time Intrad ermal False Tylenol 325 mg tablet 2 tabs By Mouth Every 4 hours as needed For Pain DO NOT EXCEED 3000 MG APAP/24 Hours 2 tabs 2023 Active 2023 22929 78850 0 Every 4 hours as needed By Mouth False Tylenol 325 mg tablet 2 tabs By Mouth Every 4 hours as needed For Fever >100 DO NOT EXCEED 3000 MG APAP/24 Hours 2 tabs 202300 Active 2023 85397 29392 0 Every 4 hours as needed By Mouth False Dulcolax (bisacodyl) 10 mg rectal suppository One Suppository per rectum PRN if Milk of Magnisia ineffective. Give on day 5 of no BM 1 sup 2023 Active 2023 72539 85466 1 Daily as needed Rectal False Fleet Enema 19 gram-7 gram/118 mL Administer per rectum PRN one time if dulcolax suppository not effective. Give on day 6 of no BM 1 202300 Active 2023 19010 61253 6 Daily as needed Rectal False Dextrose 50 % in water (D50W) intravenous solution [generic] Dextrose 50% reyes 20-50 ml (slow push) Intravenous if Glucagon not effective after 15 minutes. CALL 911 for ED Evaluation. 50% reyes 202300 0000 Active 2023 29965 89971 9 Intrav enous False Glucagon (HCl) Emergency Kit 1 mg solution for injection Administer Glucagon 1 mg Intramuscular if 15 minutes after GLucose Gel is administered Glucose remains less than 70 1 mg 2023 Active 2023 99723 30642 2 Intram uscula r False Glucose Gel 40 % oral gel [Dextrose] PRN If resident is unable to swallow (with or without symptoms) and Glucose results less than 70 give GLucose 40% Gel 1 tube orally - Recheck Glucose 15 minutes after administratio n. 1 tube 2023 Active 2023 41550 38522 8 By Mouth False Lorazepam 0.5 mg tablet [generic] 0.5 mg By Mouth Every 8 hours as needed For Anxiety 0.5 mg 2023 Active 2023 95912 26914 0 Every 8 hours as needed By Mouth False Potassium chloride ER 20 mEq tablet,exte nded release [generic] 40 meq By Mouth Once daily For Hypokalemia 40 meq 11/13 Inactiv e 2023 79952 93856 1 Once daily By Mouth False Colesevelam 625 mg tablet [generic] 1250 mg By Mouth Twice daily For TYPE 2 DIABETES MELLITUS WITHOUT COMPLICATIONS 1250 mg 2023 Active 2023 78014 87920 1 Twice daily By Mouth E11.9 False Pioglitazon e 15 mg tablet [generic] 15 mg By Mouth Once daily For TYPE 2 DIABETES MELLITUS WITHOUT COMPLICATIONS 15 mg 2023 Active 2023 45914 11686 1 Once daily By Mouth E11.9 False Cholecalcif hardeep (vitamin D3) 50 mcg (2,000 unit) tablet [generic] 50 mcg By Mouth Once daily For Supplement 50 mcg 2023 Active 2023 46341 84747 1 Once daily By Mouth False Colchicine 0.6 mg tablet [generic] 0.6 mg By Mouth Twice daily As Needed For Gout 0.6 mg 2023 Active 2023 93058 77534 4 Twice daily By Mouth False Levothyroxi ne 200 mcg tablet [generic] 200 mcg By Mouth Once daily For Hypothyroidis m 200 mcg 2023 Active 2023 41755 09198 0 Once daily By Mouth False Ondansetron 4 mg disintegrat ing tablet [generic] 4 mg By Mouth Every 6 hours as needed For Nausea 4 mg 11/12 Inactiv e 2023 14249 29263 4 Every 6 hours as needed By Mouth False Docusate sodium 100 mg capsule [generic] 100 mg By Mouth Twice daily For Constipation 100 mg 2023 Active 2023 33842 01402 1 Twice daily By Mouth False Oxycodone 5 mg tablet [generic] 5 mg By Mouth Every 6 hours as needed For Pain 5 mg 11/12 Inactiv e 2023 06986 26101 1 Every 6 hours as needed By Mouth False Oxycodone 5 mg tablet [generic] 5 mg By Mouth Every 6 hours as needed For Pain 5 mg 2023 Active 2023 00126 95042 1 Every 6 hours as needed By Mouth False Milk of Magnesia 400 mg/5 mL oral suspension 30 ml By Mouth one time per day as needed if no BM x 3 days For Constipation 30 ml 2023 Active 2023 09169 89840 2 By Mouth False Ondansetron 4 mg disintegrat ing tablet [generic] 11/12 Inactiv e 2023 16643 08093 4 Ondansetron 4 mg disintegrat ing tablet [generic] 4 mg By Mouth Every 6 hours as needed For Nausea 4 mg 2023 Active 2023 97520 30782 4 Every 6 hours as needed By Mouth False Potassium chloride ER 10 mEq capsule,ext ended release [generic] 40 mEq By Mouth Once daily For hypokalemia 40 mEq 2023 Active 2023 97183 12079 1 Once daily By Mouth False Potassium chloride ER 10 mEq capsule,ext ended release [generic] 4 capsules By Mouth At bedtime For hypokalemia 4 capsule s 11/16 Active 2023 65509 76934 1 At bedtime By Mouth False Flomax 0.4 mg capsule 0.4 mg By Mouth At bedtime For Urinary retention 0.4 mg 2023 Active 2023 75743 38846 1 At bedtime By Mouth False STOOL [...] weight Temperature SpO2 Blood Sugar Pulse Respirations 29516 918 42911 5 75.00 mm[Hg] - Sitting 140.00 mm[Hg] - Sitting 65 NI 98.00 Tympanic 95.00 % 102.00 /min 18.00/min 92255 918 10668 9 78099 918 90000 2 75.00 mm[Hg] - Sitting 140.00 mm[Hg] - Sitting 98.00 Tympanic 102.00 /min 18.00/min 09347 918 78615 3 00623 918 78698 1 72.00 mm[Hg] - Sitting 138.00 mm[Hg] - Sitting 98.40 Tympanic 86619 918 47853 4 88.00/ min 18.00/min 41175 919 75955 4 71.00 mm[Hg] - Sitting 115.00 mm[Hg] - Sitting 98.30 Tympanic 97.00 % 86.00/ min 16.00/min 97986 919 24727 0 71.00 mm[Hg] - Sitting 115.00 mm[Hg] - Sitting 98.30 Tympanic 86.00/ min 16.00/min 29033 919 91046 7 71.00 mm[Hg] - Sitting 115.00 mm[Hg] - Sitting 98.30 Tympanic 86.00/ min 16.00/min 20374 920 35405 6 72.00 mm[Hg] - Sitting 112.00 mm[Hg] - Sitting 98.10 Tympanic 82.00/ min 18.00/min 73924 920 53243 0 75.00 mm[Hg] - Sitting 130.00 mm[Hg] - Sitting 98.40 Forehead Scan 93.00 % 88.00/ min 18.00/min 42713 920 44322 2 75.00 mm[Hg] - Lying Down 130.00 mm[Hg] - Lying Down 98.40 Tympanic 88.00/ min 18.00/min
--- OUTSIDE RECORDS SUMMARY | 2023-12-14 00:02 | External Medical Summary | Continuity Of Care Document ---
Author Name Unknown Address [address] [place] [address] Organization [facility] () Care Team Providers Care Retail Management Keyholder Name Role Phone DO Parson Amy Primary Care Provider [phone] Allergies Allergy Reaction Start Date End Date [...] 3 0.1 mL 11/13 Inactiv e 2023 24681 22551 0 1 time Intrad ermal False Tubersol 5 tub. unit/0.1 mL intradermal injection solution [Tuberculin PPD] 0.1mL Intradermal 1 time For PPD 2nd Step Give 2nd Step PPD Day 1 and Read results Day 3 (schedule 7 days after 1st READ) 0.1mL 11/13 Inactiv e 2023 08953 94810 0 1 time Intrad ermal False DISCONTINUE as of 11/14/2023: Tubersol 5 tub. unit/0.1 mL intradermal injection solution [Tuberculin PPD] 11/13 Inactiv e 2023 03927 42580 0 Tubersol 5 tub. unit/0.1 mL intradermal injection solution 0.1 mL Intradermal 1 time For PPD Step 1 GIVE on Day 1 and read results Day 3 0.1 mL 11/16 Active 2023 65618 95805 1 1 time Intrad ermal False DISCONTINUE as of 11/14/2023: Tubersol 5 tub. unit/0.1 mL intradermal injection solution [Tuberculin PPD] 11/13 Inactiv e 2023 55003 78643 0 Tubersol 5 tub. unit/0.1 mL intradermal injection solution 0.1mL Intradermal 1 time For PPD 2nd Step Give 2nd Step PPD Day 1 and Read results Day 3 (schedule 7 days after 1st READ) 0.1mL 11/25 Active 2023 81023 93880 1 1 time Intrad ermal False Tylenol 325 mg tablet 2 tabs By Mouth Every 4 hours as needed For Pain DO NOT EXCEED 3000 MG APAP/24 Hours 2 tabs 2023 Active 2023 83620 38394 0 Every 4 hours as needed By Mouth False Tylenol 325 mg tablet 2 tabs By Mouth Every 4 hours as needed For Fever >100 DO NOT EXCEED 3000 MG APAP/24 Hours 2 tabs 202300 Active 2023 95095 67935 0 Every 4 hours as needed By Mouth False Dulcolax (bisacodyl) 10 mg rectal suppository One Suppository per rectum PRN if Milk of Magnisia ineffective. Give on day 5 of no BM 1 sup 2023 Active 2023 75727 14154 1 Daily as needed Rectal False Fleet Enema 19 gram-7 gram/118 mL Administer per rectum PRN one time if dulcolax suppository not effective. Give on day 6 of no BM 1 202300 Active 2023 55673 30661 6 Daily as needed Rectal False Dextrose 50 % in water (D50W) intravenous solution [generic] Dextrose 50% reyes 20-50 ml (slow push) Intravenous if Glucagon not effective after 15 minutes. CALL 911 for ED Evaluation. 50% reyes 202300 0000 Active 2023 72239 17772 9 Intrav enous False Glucagon (HCl) Emergency Kit 1 mg solution for injection Administer Glucagon 1 mg Intramuscular if 15 minutes after GLucose Gel is administered Glucose remains less than 70 1 mg 2023 Active 2023 53135 25839 2 Intram uscula r False Glucose Gel 40 % oral gel [Dextrose] PRN If resident is unable to swallow (with or without symptoms) and Glucose results less than 70 give GLucose 40% Gel 1 tube orally - Recheck Glucose 15 minutes after administratio n. 1 tube 2023 Active 2023 32205 11047 8 By Mouth False Lorazepam 0.5 mg tablet [generic] 0.5 mg By Mouth Every 8 hours as needed For Anxiety 0.5 mg 2023 Active 2023 56560 93471 0 Every 8 hours as needed By Mouth False Potassium chloride ER 20 mEq tablet,exte nded release [generic] 40 meq By Mouth Once daily For Hypokalemia 40 meq 11/13 Inactiv e 2023 65141 49448 1 Once daily By Mouth False Colesevelam 625 mg tablet [generic] 1250 mg By Mouth Twice daily For TYPE 2 DIABETES MELLITUS WITHOUT COMPLICATIONS 1250 mg 2023 Active 2023 36157 34153 1 Twice daily By Mouth E11.9 False Pioglitazon e 15 mg tablet [generic] 15 mg By Mouth Once daily For TYPE 2 DIABETES MELLITUS WITHOUT COMPLICATIONS 15 mg 11/14 Inactiv e 2023 34247 71837 1 Once daily By Mouth E11.9 False Cholecalcif hardeep (vitamin D3) 50 mcg (2,000 unit) tablet [generic] 50 mcg By Mouth Once daily For Supplement 50 mcg 2023 Active 2023 49359 19963 1 Once daily By Mouth False Colchicine 0.6 mg tablet [generic] 0.6 mg By Mouth Twice daily As Needed For Gout 0.6 mg 2023 Active 2023 49805 38715 4 Twice daily By Mouth False Levothyroxi ne 200 mcg tablet [generic] 200 mcg By Mouth Once daily For Hypothyroidis m 200 mcg 2023 Active 2023 00064 06287 0 Once daily By Mouth False Ondansetron 4 mg disintegrat ing tablet [generic] 4 mg By Mouth Every 6 hours as needed For Nausea 4 mg 11/12 Inactiv e 2023 65037 20416 4 Every 6 hours as needed By Mouth False Docusate sodium 100 mg capsule [generic] 100 mg By Mouth Twice daily For Constipation 100 mg 202300 Active 2023 94243 74596 1 Twice daily By Mouth False Oxycodone 5 mg tablet [generic] 5 mg By Mouth Every 6 hours as needed For Pain 5 mg 11/12 Inactiv e 2023 05165 72955 1 Every 6 hours as needed By Mouth False Oxycodone 5 mg tablet [generic] 5 mg By Mouth Every 6 hours as needed For Pain 5 mg 202300 Active 2023 86786 48841 1 Every 6 hours as needed By Mouth False Milk of Magnesia 400 mg/5 mL oral suspension 30 ml By Mouth one time per day as needed if no BM x 3 days For Constipation 30 ml 202300 Active 2023 09016 28327 2 By Mouth False Ondansetron 4 mg disintegrat ing tablet [generic] 11/12 Inactiv e 2023 48616 29488 4 Ondansetron 4 mg disintegrat ing tablet [generic] 4 mg By Mouth Every 6 hours as needed For Nausea 4 mg 11/14 Inactiv e 2023 35575 90773 4 Every 6 hours as needed By Mouth False Potassium chloride ER 10 mEq capsule,ext ended release [generic] 40 mEq By Mouth Once daily For hypokalemia 40 mEq 202300 Active 2023 98131 85903 1 Once daily By Mouth False Potassium chloride ER 10 mEq capsule,ext ended release [generic] 4 capsules By Mouth At bedtime For hypokalemia 4 capsule s 11/16 Active 2023 30271 41667 1 At bedtime By Mouth False Flomax 0.4 mg capsule 0.4 mg By Mouth At bedtime For Urinary retention 0.4 mg 2023 Active 2023 75962 51312 1 At bedtime By Mouth False STOOL CULTURE Once daily Obtain stool culture, add C. Diff to routine stool culture For Rule out C. Diff 1x 2023 Active 2023 Once daily Other False Butrans 5 mcg/hour transdermal patch 1 patch Transdermal Every 7 Days For Pain 1 patch 2023 Active 2023 40920 29400 4 Every week Transd ermal False Pantoprazol e 40 mg tablet,nu yed release [generic] 40 mg By Mouth Twice daily For gerd 40 mg 2023 Active 2023 25344 91889 0 Twice daily By Mouth False Scopolamine 1 mg over 3 days transdermal patch [generic] 1 Transdermal Every 72 hours For nausea 1 11/21 Active 2023 23291 79239 4 Every 72 hours Transd ermal False Ondansetron 4 mg disintegrat ing tablet [generic] 11/14 Inactiv e 2023 21227 25850 4 Ondansetron 4 mg disintegrat ing tablet [generic] 4 mg By Mouth Every 8 hours For Nausea 4 mg 2023 Active 2023 72335 61386 4 Every 8 hours By Mouth False Miralax 17 gram oral powder packet 8.5 g (1/2 capful) By Mouth Once daily For constipation 8.5 g 2023 Active 2023 03241 31378 6 Once daily By Mouth False Pioglitazon e 15 mg tablet [generic] 11/14 Inactiv e 2023 47664 69322 1 E11.9 Pioglitazon e 15 mg tablet [generic] 7.5mg ( half a tab) By Mouth Once daily For TYPE 2 DIABETES MELLITUS WITHOUT COMPLICATIONS 7.5mg 2023 Active 2023 30905 30511 1 Once daily By Mouth E11.9 False [...] weight Temperature SpO2 Blood Sugar Pulse Respirations 31666 5 75.00 mm[Hg] - Sitting 140.00 mm[Hg] - Sitting 65 NI 98.00 Tympanic 95.00 % 102.00 /min 18.00/min 918 18383 9 97259 2 75.00 mm[Hg] - Sitting 140.00 mm[Hg] - Sitting 98.00 Tympanic 102.00 /min 18.00/min 8 13378 3 35619 918 73205 1 72.00 mm[Hg] - Sitting 138.00 mm[Hg] - Sitting 98.40 Tympanic 76059 918 62697 4 88.00/ min 18.00/min 60612 919 53346 4 71.00 mm[Hg] - Sitting 115.00 mm[Hg] - Sitting 98.30 Tympanic 97.00 % 86.00/ min 16.00/min 78421 919 12205 0 71.00 mm[Hg] - Sitting 115.00 mm[Hg] - Sitting 98.30 Tympanic 86.00/ min 16.00/min 53977 919 46460 7 71.00 mm[Hg] - Sitting 115.00 mm[Hg] - Sitting 98.30 Tympanic 86.00/ min 16.00/min 20919 920 45029 6 72.00 mm[Hg] - Sitting 112.00 mm[Hg] - Sitting 98.10 Tympanic 82.00/ min 18.00/min 62488 920 70088 0 75.00 mm[Hg] - Sitting 130.00 mm[Hg] - Sitting 98.40 Forehead Scan 93.00 % 88.00/ min 18.00/min 95947 920 81791 2 75.00 mm[Hg] - Lying Down 130.00 mm[Hg] - Lying Down 98.40 Tympanic 88.00/ min 18.00/min 87905 920 74946 5 75.00 mm[Hg] - Lying Down 130.00 mm[Hg] - Lying Down 98.40 Tympanic 88.00/ min 18.00/min
--- OUTSIDE RECORDS SUMMARY | 2023-12-14 00:02 | External Medical Summary | Continuity Of Care Document ---
Author Name Unknown Address [address] [place] [address] Organization [facility] [place] () Care Team Providers Care Groundskeeping Maintenance Worker Name Role Phone DO Parson Amy Primary Care Provider [phone] Allergies Allergy Reaction Start Date End Date [...] 3 0.1 mL 11/13 Inactiv e 2023 95975 68603 0 1 time Intrad ermal False Tubersol 5 tub. unit/0.1 mL intradermal injection solution [Tuberculin PPD] 0.1mL Intradermal 1 time For PPD 2nd Step Give 2nd Step PPD Day 1 and Read results Day 3 (schedule 7 days after 1st READ) 0.1mL 11/13 Inactiv e 2023 46533 06395 0 1 time Intrad ermal False DISCONTINUE as of 11/14/2023: Tubersol 5 tub. unit/0.1 mL intradermal injection solution [Tuberculin PPD] 11/13 Inactiv e 2023 47425 06974 0 Tubersol 5 tub. unit/0.1 mL intradermal injection solution 0.1 mL Intradermal 1 time For PPD Step 1 GIVE on Day 1 and read results Day 3 0.1 mL 11/16 Active 2023 00505 68477 1 1 time Intrad ermal False DISCONTINUE as of 11/14/2023: Tubersol 5 tub. unit/0.1 mL intradermal injection solution [Tuberculin PPD] 11/13 Inactiv e 2023 88587 98022 0 Tubersol 5 tub. unit/0.1 mL intradermal injection solution 0.1mL Intradermal 1 time For PPD 2nd Step Give 2nd Step PPD Day 1 and Read results Day 3 (schedule 7 days after 1st READ) 0.1mL 11/25 Active 2023 89500 78392 1 1 time Intrad ermal False Tylenol 325 mg tablet 2 tabs By Mouth Every 4 hours as needed For Pain DO NOT EXCEED 3000 MG APAP/24 Hours 2 tabs 2023 Active 2023 54803 36369 0 Every 4 hours as needed By Mouth False Tylenol 325 mg tablet 2 tabs By Mouth Every 4 hours as needed For Fever >100 DO NOT EXCEED 3000 MG APAP/24 Hours 2 tabs 202300 Active 2023 31192 35471 0 Every 4 hours as needed By Mouth False Dulcolax (bisacodyl) 10 mg rectal suppository One Suppository per rectum PRN if Milk of Magnisia ineffective. Give on day 5 of no BM 1 sup 2023 Active 2023 72961 27396 1 Daily as needed Rectal False Fleet Enema 19 gram-7 gram/118 mL Administer per rectum PRN one time if dulcolax suppository not effective. Give on day 6 of no BM 1 202300 Active 2023 92070 12570 6 Daily as needed Rectal False Dextrose 50 % in water (D50W) intravenous solution [generic] Dextrose 50% reyes 20-50 ml (slow push) Intravenous if Glucagon not effective after 15 minutes. CALL 911 for ED Evaluation. 50% reyes 202300 0000 Active 2023 45761 40787 9 Intrav enous False Glucagon (HCl) Emergency Kit 1 mg solution for injection Administer Glucagon 1 mg Intramuscular if 15 minutes after GLucose Gel is administered Glucose remains less than 70 1 mg 2023 Active 2023 82425 44233 2 Intram uscula r False Glucose Gel 40 % oral gel [Dextrose] PRN If resident is unable to swallow (with or without symptoms) and Glucose results less than 70 give GLucose 40% Gel 1 tube orally - Recheck Glucose 15 minutes after administratio n. 1 tube 2023 Active 2023 93821 89706 8 By Mouth False Lorazepam 0.5 mg tablet [generic] 0.5 mg By Mouth Every 8 hours as needed For Anxiety 0.5 mg 2023 Active 2023 22478 22979 0 Every 8 hours as needed By Mouth False Potassium chloride ER 20 mEq tablet,exte nded release [generic] 40 meq By Mouth Once daily For Hypokalemia 40 meq 11/13 Inactiv e 2023 57100 60073 1 Once daily By Mouth False Colesevelam 625 mg tablet [generic] 1250 mg By Mouth Twice daily For TYPE 2 DIABETES MELLITUS WITHOUT COMPLICATIONS 1250 mg 2023 Active 2023 11025 55708 1 Twice daily By Mouth E11.9 False Pioglitazon e 15 mg tablet [generic] 15 mg By Mouth Once daily For TYPE 2 DIABETES MELLITUS WITHOUT COMPLICATIONS 15 mg 2023 Active 2023 40309 44344 1 Once daily By Mouth E11.9 False Cholecalcif hardeep (vitamin D3) 50 mcg (2,000 unit) tablet [generic] 50 mcg By Mouth Once daily For Supplement 50 mcg 2023 Active 2023 58821 29713 1 Once daily By Mouth False Colchicine 0.6 mg tablet [generic] 0.6 mg By Mouth Twice daily As Needed For Gout 0.6 mg 2023 Active 2023 51492 35563 4 Twice daily By Mouth False Levothyroxi ne 200 mcg tablet [generic] 200 mcg By Mouth Once daily For Hypothyroidis m 200 mcg 2023 Active 2023 19020 68706 0 Once daily By Mouth False Ondansetron 4 mg disintegrat ing tablet [generic] 4 mg By Mouth Every 6 hours as needed For Nausea 4 mg 11/12 Inactiv e 2023 57779 30954 4 Every 6 hours as needed By Mouth False Docusate sodium 100 mg capsule [generic] 100 mg By Mouth Twice daily For Constipation 100 mg 2023 Active 2023 67843 07395 1 Twice daily By Mouth False Oxycodone 5 mg tablet [generic] 5 mg By Mouth Every 6 hours as needed For Pain 5 mg 11/12 Inactiv e 2023 12766 85154 1 Every 6 hours as needed By Mouth False Oxycodone 5 mg tablet [generic] 5 mg By Mouth Every 6 hours as needed For Pain 5 mg 2023 Active 2023 75936 29524 1 Every 6 hours as needed By Mouth False Milk of Magnesia 400 mg/5 mL oral suspension 30 ml By Mouth one time per day as needed if no BM x 3 days For Constipation 30 ml 2023 Active 2023 90843 81834 2 By Mouth False Ondansetron 4 mg disintegrat ing tablet [generic] 11/12 Inactiv e 2023 60569 08110 4 Ondansetron 4 mg disintegrat ing tablet [generic] 4 mg By Mouth Every 6 hours as needed For Nausea 4 mg 2023 Active 2023 78338 12721 4 Every 6 hours as needed By Mouth False Potassium chloride ER 10 mEq capsule,ext ended release [generic] 40 mEq By Mouth Once daily For hypokalemia 40 mEq 2023 Active 2023 35766 62081 1 Once daily By Mouth False Potassium chloride ER 10 mEq capsule,ext ended release [generic] 4 capsules By Mouth At bedtime For hypokalemia 4 capsule s 11/16 Active 2023 14436 72184 1 At bedtime By Mouth False Flomax 0.4 mg capsule 0.4 mg By Mouth At bedtime For Urinary retention 0.4 mg 2023 Active 2023 17640 36363 1 At bedtime By Mouth False STOOL [...] weight Temperature SpO2 Blood Sugar Pulse Respirations 27958 918 13778 5 75.00 mm[Hg] - Sitting 140.00 mm[Hg] - Sitting 65 NI 98.00 Tympanic 95.00 % 102.00 /min 18.00/min 94863 918 17251 9 95900 918 05051 2 75.00 mm[Hg] - Sitting 140.00 mm[Hg] - Sitting 98.00 Tympanic 102.00 /min 18.00/min 17625 918 20382 3 14878 918 95511 1 72.00 mm[Hg] - Sitting 138.00 mm[Hg] - Sitting 98.40 Tympanic 33254 918 89954 4 88.00/ min 18.00/min 83383 919 39687 4 71.00 mm[Hg] - Sitting 115.00 mm[Hg] - Sitting 98.30 Tympanic 97.00 % 86.00/ min 16.00/min 81653 919 52619 0 71.00 mm[Hg] - Sitting 115.00 mm[Hg] - Sitting 98.30 Tympanic 86.00/ min 16.00/min 30569 919 42591 7 71.00 mm[Hg] - Sitting 115.00 mm[Hg] - Sitting 98.30 Tympanic 86.00/ min 16.00/min 14908 920 67554 6 72.00 mm[Hg] - Sitting 112.00 mm[Hg] - Sitting 98.10 Tympanic 82.00/ min 18.00/min 94539 920 83430 0 75.00 mm[Hg] - Sitting 130.00 mm[Hg] - Sitting 98.40 Forehead Scan 93.00 % 88.00/ min 18.00/min 22098 920 47540 2 75.00 mm[Hg] - Lying Down 130.00 mm[Hg] - Lying Down 98.40 Tympanic 88.00/ min 18.00/min
--- OUTSIDE RECORDS SUMMARY | 2023-12-14 00:03 | External Medical Summary | Continuity Of Care Document ---
Author Name Unknown Address [address] [place] [address] Organization [facility] [place] () Care Team Providers Care Exploration Engineer Name Role Phone DO Parson Amy Primary Care Provider [phone] Allergies Allergy Reaction Start Date End Date [...] 3 0.1 mL 11/13 Inactiv e 2023 61958 89876 0 1 time Intrad ermal False Tubersol 5 tub. unit/0.1 mL intradermal injection solution [Tuberculin PPD] 0.1mL Intradermal 1 time For PPD 2nd Step Give 2nd Step PPD Day 1 and Read results Day 3 (schedule 7 days after 1st READ) 0.1mL 11/13 Inactiv e 2023 46126 56772 0 1 time Intrad ermal False DISCONTINUE as of 11/14/2023: Tubersol 5 tub. unit/0.1 mL intradermal injection solution [Tuberculin PPD] 11/13 Inactiv e 2023 30154 46472 0 Tubersol 5 tub. unit/0.1 mL intradermal injection solution 0.1 mL Intradermal 1 time For PPD Step 1 GIVE on Day 1 and read results Day 3 0.1 mL 11/16 Active 2023 01305 32255 1 1 time Intrad ermal False DISCONTINUE as of 11/14/2023: Tubersol 5 tub. unit/0.1 mL intradermal injection solution [Tuberculin PPD] 11/13 Inactiv e 2023 26693 79171 0 Tubersol 5 tub. unit/0.1 mL intradermal injection solution 0.1mL Intradermal 1 time For PPD 2nd Step Give 2nd Step PPD Day 1 and Read results Day 3 (schedule 7 days after 1st READ) 0.1mL 11/25 Active 2023 71468 05305 1 1 time Intrad ermal False Tylenol 325 mg tablet 2 tabs By Mouth Every 4 hours as needed For Pain DO NOT EXCEED 3000 MG APAP/24 Hours 2 tabs 2023 Active 2023 75619 25434 0 Every 4 hours as needed By Mouth False Tylenol 325 mg tablet 2 tabs By Mouth Every 4 hours as needed For Fever >100 DO NOT EXCEED 3000 MG APAP/24 Hours 2 tabs 202300 Active 2023 24127 02926 0 Every 4 hours as needed By Mouth False Dulcolax (bisacodyl) 10 mg rectal suppository One Suppository per rectum PRN if Milk of Magnisia ineffective. Give on day 5 of no BM 1 sup 2023 Active 2023 24246 29227 1 Daily as needed Rectal False Fleet Enema 19 gram-7 gram/118 mL Administer per rectum PRN one time if dulcolax suppository not effective. Give on day 6 of no BM 1 202300 Active 2023 55272 19014 6 Daily as needed Rectal False Dextrose 50 % in water (D50W) intravenous solution [generic] Dextrose 50% reyes 20-50 ml (slow push) Intravenous if Glucagon not effective after 15 minutes. CALL 911 for ED Evaluation. 50% reyes 202300 0000 Active 2023 43527 16356 9 Intrav enous False Glucagon (HCl) Emergency Kit 1 mg solution for injection Administer Glucagon 1 mg Intramuscular if 15 minutes after GLucose Gel is administered Glucose remains less than 70 1 mg 2023 Active 2023 79675 43348 2 Intram uscula r False Glucose Gel 40 % oral gel [Dextrose] PRN If resident is unable to swallow (with or without symptoms) and Glucose results less than 70 give GLucose 40% Gel 1 tube orally - Recheck Glucose 15 minutes after administratio n. 1 tube 2023 Active 2023 27975 05029 8 By Mouth False Lorazepam 0.5 mg tablet [generic] 0.5 mg By Mouth Every 8 hours as needed For Anxiety 0.5 mg 2023 Active 2023 79982 20947 0 Every 8 hours as needed By Mouth False Potassium chloride ER 20 mEq tablet,exte nded release [generic] 40 meq By Mouth Once daily For Hypokalemia 40 meq 11/13 Inactiv e 2023 86835 94286 1 Once daily By Mouth False Colesevelam 625 mg tablet [generic] 1250 mg By Mouth Twice daily For TYPE 2 DIABETES MELLITUS WITHOUT COMPLICATIONS 1250 mg 2023 Active 2023 40631 71664 1 Twice daily By Mouth E11.9 False Pioglitazon e 15 mg tablet [generic] 15 mg By Mouth Once daily For TYPE 2 DIABETES MELLITUS WITHOUT COMPLICATIONS 15 mg 2023 Active 2023 92649 94200 1 Once daily By Mouth E11.9 False Cholecalcif hardeep (vitamin D3) 50 mcg (2,000 unit) tablet [generic] 50 mcg By Mouth Once daily For Supplement 50 mcg 2023 Active 2023 65627 06545 1 Once daily By Mouth False Colchicine 0.6 mg tablet [generic] 0.6 mg By Mouth Twice daily As Needed For Gout 0.6 mg 2023 Active 2023 12069 31890 4 Twice daily By Mouth False Levothyroxi ne 200 mcg tablet [generic] 200 mcg By Mouth Once daily For Hypothyroidis m 200 mcg 2023 Active 2023 58471 73961 0 Once daily By Mouth False Ondansetron 4 mg disintegrat ing tablet [generic] 4 mg By Mouth Every 6 hours as needed For Nausea 4 mg 11/12 Inactiv e 2023 48124 36654 4 Every 6 hours as needed By Mouth False Docusate sodium 100 mg capsule [generic] 100 mg By Mouth Twice daily For Constipation 100 mg 2023 Active 2023 57433 61206 1 Twice daily By Mouth False Oxycodone 5 mg tablet [generic] 5 mg By Mouth Every 6 hours as needed For Pain 5 mg 11/12 Inactiv e 2023 63323 04061 1 Every 6 hours as needed By Mouth False Oxycodone 5 mg tablet [generic] 5 mg By Mouth Every 6 hours as needed For Pain 5 mg 2023 Active 2023 25599 44961 1 Every 6 hours as needed By Mouth False Milk of Magnesia 400 mg/5 mL oral suspension 30 ml By Mouth one time per day as needed if no BM x 3 days For Constipation 30 ml 2023 Active 2023 56209 56001 2 By Mouth False Ondansetron 4 mg disintegrat ing tablet [generic] 11/12 Inactiv e 2023 46324 34605 4 Ondansetron 4 mg disintegrat ing tablet [generic] 4 mg By Mouth Every 6 hours as needed For Nausea 4 mg 2023 Active 2023 19704 45465 4 Every 6 hours as needed By Mouth False Potassium chloride ER 10 mEq capsule,ext ended release [generic] 40 mEq By Mouth Once daily For hypokalemia 40 mEq 2023 Active 2023 33164 42587 1 Once daily By Mouth False Potassium chloride ER 10 mEq capsule,ext ended release [generic] 4 capsules By Mouth At bedtime For hypokalemia 4 capsule s 11/16 Active 2023 14609 55965 1 At bedtime By Mouth False Problems Code Description Start Date End Date Status S32.010D Wedge compression fr acture of first lumbar vertebra, subsequent encounter for fracture with routine healing 11/13/2023 Active 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, lumbar region 11/13/202300 0000 Active Z48.811 Encounter for surgic al aftercare following surgery on the nervous system 11/13/2023 Active VITAL SIGNS Date Time Diastolic blood pressure Systolic blood pressure Body height Body weight Temperature SpO2 Blood Sugar Pulse Respirations 58670 5 75.00 mm[Hg] - Sitting 140.00 mm[Hg] - Sitting 65 NI 98.00 Tympanic 95.00 % 102.00 /min 18.00/min 8 76924 9 8 44890 2 75.00 mm[Hg] - Sitting 140.00 mm[Hg] - Sitting 98.00 Tympanic 102.00 /min 18.00/min 30691 918 62195 3 8 32109 1 72.00 mm[Hg] - Sitting 138.00 mm[Hg] - Sitting 98.40 Tympanic 32222 8 11727 4 88.00/ min 18.00/min 86520 919 69609 4 71.00 mm[Hg] - Sitting 115.00 mm[Hg] - Sitting 98.30 Tympanic 97.00 % 86.00/ min 16.00/min 90506 919 71430 0 71.00 mm[Hg] - Sitting 115.00 mm[Hg] - Sitting 98.30 Tympanic 86.00/ min 16.00/min
--- OUTSIDE RECORDS SUMMARY | 2023-12-14 00:03 | External Medical Summary | Continuity Of Care Document ---
Author Name Unknown Address [address] [place] [address] [address] [facility] () Care Team Providers Care Auto Battery Builder Name Role Phone DO Parson Amy Primary Care Provider [phone] Allergies Allergy Reaction Start Date End Date [...] 3 0.1 mL 11/13 Inactiv e 2023 50019 64921 0 1 time Intrad ermal False Tubersol 5 tub. unit/0.1 mL intradermal injection solution [Tuberculin PPD] 0.1mL Intradermal 1 time For PPD 2nd Step Give 2nd Step PPD Day 1 and Read results Day 3 (schedule 7 days after 1st READ) 0.1mL 11/13 Inactiv e 2023 45224 85825 0 1 time Intrad ermal False DISCONTINUE as of 11/14/2023: Tubersol 5 tub. unit/0.1 mL intradermal injection solution [Tuberculin PPD] 11/13 Inactiv e 2023 16790 53906 0 Tubersol 5 tub. unit/0.1 mL intradermal injection solution 0.1 mL Intradermal 1 time For PPD Step 1 GIVE on Day 1 and read results Day 3 0.1 mL 11/16 Active 2023 87775 07861 1 1 time Intrad ermal False DISCONTINUE as of 11/14/2023: Tubersol 5 tub. unit/0.1 mL intradermal injection solution [Tuberculin PPD] 11/13 Inactiv e 2023 79015 71633 0 Tubersol 5 tub. unit/0.1 mL intradermal injection solution 0.1mL Intradermal 1 time For PPD 2nd Step Give 2nd Step PPD Day 1 and Read results Day 3 (schedule 7 days after 1st READ) 0.1mL 11/25 Active 2023 87575 43913 1 1 time Intrad ermal False Tylenol 325 mg tablet 2 tabs By Mouth Every 4 hours as needed For Pain DO NOT EXCEED 3000 MG APAP/24 Hours 2 tabs 2023 Active 2023 56406 52581 0 Every 4 hours as needed By Mouth False Tylenol 325 mg tablet 2 tabs By Mouth Every 4 hours as needed For Fever >100 DO NOT EXCEED 3000 MG APAP/24 Hours 2 tabs 202300 Active 2023 26243 78011 0 Every 4 hours as needed By Mouth False Dulcolax (bisacodyl) 10 mg rectal suppository One Suppository per rectum PRN if Milk of Magnisia ineffective. Give on day 5 of no BM 1 sup 2023 Active 2023 34188 08533 1 Daily as needed Rectal False Fleet Enema 19 gram-7 gram/118 mL Administer per rectum PRN one time if dulcolax suppository not effective. Give on day 6 of no BM 1 202300 Active 2023 73000 80406 6 Daily as needed Rectal False Dextrose 50 % in water (D50W) intravenous solution [generic] Dextrose 50% reyes 20-50 ml (slow push) Intravenous if Glucagon not effective after 15 minutes. CALL 911 for ED Evaluation. 50% reyes 202300 0000 Active 2023 79757 28953 9 Intrav enous False Glucagon (HCl) Emergency Kit 1 mg solution for injection Administer Glucagon 1 mg Intramuscular if 15 minutes after GLucose Gel is administered Glucose remains less than 70 1 mg 2023 Active 2023 28659 94504 2 Intram uscula r False Glucose Gel 40 % oral gel [Dextrose] PRN If resident is unable to swallow (with or without symptoms) and Glucose results less than 70 give GLucose 40% Gel 1 tube orally - Recheck Glucose 15 minutes after administratio n. 1 tube 2023 Active 2023 23115 98301 8 By Mouth False Lorazepam 0.5 mg tablet [generic] 0.5 mg By Mouth Every 8 hours as needed For Anxiety 0.5 mg 2023 Active 2023 22326 58860 0 Every 8 hours as needed By Mouth False Potassium chloride ER 20 mEq tablet,exte nded release [generic] 40 meq By Mouth Once daily For Hypokalemia 40 meq 11/13 Inactiv e 2023 22179 62269 1 Once daily By Mouth False Colesevelam 625 mg tablet [generic] 1250 mg By Mouth Twice daily For TYPE 2 DIABETES MELLITUS WITHOUT COMPLICATIONS 1250 mg 2023 Active 2023 47871 37061 1 Twice daily By Mouth E11.9 False Pioglitazon e 15 mg tablet [generic] 15 mg By Mouth Once daily For TYPE 2 DIABETES MELLITUS WITHOUT COMPLICATIONS 15 mg 2023 Active 2023 24110 70532 1 Once daily By Mouth E11.9 False Cholecalcif hardeep (vitamin D3) 50 mcg (2,000 unit) tablet [generic] 50 mcg By Mouth Once daily For Supplement 50 mcg 2023 Active 2023 41340 73140 1 Once daily By Mouth False Colchicine 0.6 mg tablet [generic] 0.6 mg By Mouth Twice daily As Needed For Gout 0.6 mg 2023 Active 2023 89654 04370 4 Twice daily By Mouth False Levothyroxi ne 200 mcg tablet [generic] 200 mcg By Mouth Once daily For Hypothyroidis m 200 mcg 2023 Active 2023 27592 02049 0 Once daily By Mouth False Ondansetron 4 mg disintegrat ing tablet [generic] 4 mg By Mouth Every 6 hours as needed For Nausea 4 mg 11/12 Inactiv e 2023 50534 45708 4 Every 6 hours as needed By Mouth False Docusate sodium 100 mg capsule [generic] 100 mg By Mouth Twice daily For Constipation 100 mg 2023 Active 2023 91963 94841 1 Twice daily By Mouth False Oxycodone 5 mg tablet [generic] 5 mg By Mouth Every 6 hours as needed For Pain 5 mg 11/12 Inactiv e 2023 31427 18728 1 Every 6 hours as needed By Mouth False Oxycodone 5 mg tablet [generic] 5 mg By Mouth Every 6 hours as needed For Pain 5 mg 2023 Active 2023 99164 26658 1 Every 6 hours as needed By Mouth False Milk of Magnesia 400 mg/5 mL oral suspension 30 ml By Mouth one time per day as needed if no BM x 3 days For Constipation 30 ml 2023 Active 2023 32190 07280 2 By Mouth False Ondansetron 4 mg disintegrat ing tablet [generic] 11/12 Inactiv e 2023 34669 06315 4 Ondansetron 4 mg disintegrat ing tablet [generic] 4 mg By Mouth Every 6 hours as needed For Nausea 4 mg 2023 Active 2023 74067 97883 4 Every 6 hours as needed By Mouth False Potassium chloride ER 10 mEq capsule,ext ended release [generic] 40 mEq By Mouth Once daily For hypokalemia 40 mEq 2023 Active 2023 91268 15915 1 Once daily By Mouth False Potassium chloride ER 10 mEq capsule,ext ended release [generic] 4 capsules By Mouth At bedtime For hypokalemia 4 capsule s 11/16 Active 2023 08183 18168 1 At bedtime By Mouth False Flomax 0.4 mg capsule 0.4 mg By Mouth At bedtime For Urinary retention 0.4 mg 2023 Active 2023 05661 01609 1 At bedtime By Mouth False STOOL [...] Temperature SpO2 Blood Sugar Pulse Respirations 8 85502 5 75.00 mm[Hg] - Sitting 140.00 mm[Hg] - Sitting 65 NI 98.00 Tympanic 95.00 % 102.00 /min 18.00/min 8 40276 9 34335 918 66442 2 75.00 mm[Hg] - Sitting 140.00 mm[Hg] - Sitting 98.00 Tympanic 102.00 /min 18.00/min 30887 918 67102 3 59824 918 34451 1 72.00 mm[Hg] - Sitting 138.00 mm[Hg] - Sitting 98.40 Tympanic 84447 8 85954 4 88.00/ min 18.00/min 919 99766 4 71.00 mm[Hg] - Sitting 115.00 mm[Hg] - Sitting 98.30 Tympanic 97.00 % 86.00/ min 16.00/min 78311 919 01583 0 71.00 mm[Hg] - Sitting 115.00 mm[Hg] - Sitting 98.30 Tympanic 86.00/ min 16.00/min
--- OUTSIDE RECORDS SUMMARY | 2023-12-14 00:03 | External Medical Summary | Continuity Of Care Document ---
Author Name Unknown Address [address] [place] [address] Organization [facility] () Care Team Providers Care Wellness Manager Name Role Phone DO Parson Amy Primary Care Provider [phone] Allergies Allergy Reaction Start Date End Date [...] 3 0.1 mL 11/13 Inactiv e 2023 43349 73598 0 1 time Intrad ermal False Tubersol 5 tub. unit/0.1 mL intradermal injection solution [Tuberculin PPD] 0.1mL Intradermal 1 time For PPD 2nd Step Give 2nd Step PPD Day 1 and Read results Day 3 (schedule 7 days after 1st READ) 0.1mL 11/13 Inactiv e 2023 17606 91282 0 1 time Intrad ermal False DISCONTINUE as of 11/14/2023: Tubersol 5 tub. unit/0.1 mL intradermal injection solution [Tuberculin PPD] 11/13 Inactiv e 2023 27482 19778 0 Tubersol 5 tub. unit/0.1 mL intradermal injection solution 0.1 mL Intradermal 1 time For PPD Step 1 GIVE on Day 1 and read results Day 3 0.1 mL 11/16 Active 2023 44705 95042 1 1 time Intrad ermal False DISCONTINUE as of 11/14/2023: Tubersol 5 tub. unit/0.1 mL intradermal injection solution [Tuberculin PPD] 11/13 Inactiv e 2023 30499 90990 0 Tubersol 5 tub. unit/0.1 mL intradermal injection solution 0.1mL Intradermal 1 time For PPD 2nd Step Give 2nd Step PPD Day 1 and Read results Day 3 (schedule 7 days after 1st READ) 0.1mL 11/25 Active 2023 44049 47508 1 1 time Intrad ermal False Tylenol 325 mg tablet 2 tabs By Mouth Every 4 hours as needed For Pain DO NOT EXCEED 3000 MG APAP/24 Hours 2 tabs 2023 Active 2023 09670 55206 0 Every 4 hours as needed By Mouth False Tylenol 325 mg tablet 2 tabs By Mouth Every 4 hours as needed For Fever >100 DO NOT EXCEED 3000 MG APAP/24 Hours 2 tabs 202300 Active 2023 85047 04610 0 Every 4 hours as needed By Mouth False Dulcolax (bisacodyl) 10 mg rectal suppository One Suppository per rectum PRN if Milk of Magnisia ineffective. Give on day 5 of no BM 1 sup 2023 Active 2023 88133 72650 1 Daily as needed Rectal False Fleet Enema 19 gram-7 gram/118 mL Administer per rectum PRN one time if dulcolax suppository not effective. Give on day 6 of no BM 1 202300 Active 2023 12811 05849 6 Daily as needed Rectal False Dextrose 50 % in water (D50W) intravenous solution [generic] Dextrose 50% reyes 20-50 ml (slow push) Intravenous if Glucagon not effective after 15 minutes. CALL 911 for ED Evaluation. 50% reyes 202300 0000 Active 2023 66318 67548 9 Intrav enous False Glucagon (HCl) Emergency Kit 1 mg solution for injection Administer Glucagon 1 mg Intramuscular if 15 minutes after GLucose Gel is administered Glucose remains less than 70 1 mg 2023 Active 2023 84245 06104 2 Intram uscula r False Glucose Gel 40 % oral gel [Dextrose] PRN If resident is unable to swallow (with or without symptoms) and Glucose results less than 70 give GLucose 40% Gel 1 tube orally - Recheck Glucose 15 minutes after administratio n. 1 tube 2023 Active 2023 33440 24967 8 By Mouth False Lorazepam 0.5 mg tablet [generic] 0.5 mg By Mouth Every 8 hours as needed For Anxiety 0.5 mg 2023 Active 2023 03255 15547 0 Every 8 hours as needed By Mouth False Potassium chloride ER 20 mEq tablet,exte nded release [generic] 40 meq By Mouth Once daily For Hypokalemia 40 meq 11/13 Inactiv e 2023 62400 32158 1 Once daily By Mouth False Colesevelam 625 mg tablet [generic] 1250 mg By Mouth Twice daily For TYPE 2 DIABETES MELLITUS WITHOUT COMPLICATIONS 1250 mg 2023 Active 2023 77850 84691 1 Twice daily By Mouth E11.9 False Pioglitazon e 15 mg tablet [generic] 15 mg By Mouth Once daily For TYPE 2 DIABETES MELLITUS WITHOUT COMPLICATIONS 15 mg 2023 Active 2023 99697 22434 1 Once daily By Mouth E11.9 False Cholecalcif hardeep (vitamin D3) 50 mcg (2,000 unit) tablet [generic] 50 mcg By Mouth Once daily For Supplement 50 mcg 2023 Active 2023 91053 20058 1 Once daily By Mouth False Colchicine 0.6 mg tablet [generic] 0.6 mg By Mouth Twice daily As Needed For Gout 0.6 mg 2023 Active 2023 74885 33386 4 Twice daily By Mouth False Levothyroxi ne 200 mcg tablet [generic] 200 mcg By Mouth Once daily For Hypothyroidis m 200 mcg 2023 Active 2023 32996 20411 0 Once daily By Mouth False Ondansetron 4 mg disintegrat ing tablet [generic] 4 mg By Mouth Every 6 hours as needed For Nausea 4 mg 11/12 Inactiv e 2023 05476 33376 4 Every 6 hours as needed By Mouth False Docusate sodium 100 mg capsule [generic] 100 mg By Mouth Twice daily For Constipation 100 mg 2023 Active 2023 79178 34666 1 Twice daily By Mouth False Oxycodone 5 mg tablet [generic] 5 mg By Mouth Every 6 hours as needed For Pain 5 mg 11/12 Inactiv e 2023 92750 30858 1 Every 6 hours as needed By Mouth False Oxycodone 5 mg tablet [generic] 5 mg By Mouth Every 6 hours as needed For Pain 5 mg 2023 Active 2023 87094 53960 1 Every 6 hours as needed By Mouth False Milk of Magnesia 400 mg/5 mL oral suspension 30 ml By Mouth one time per day as needed if no BM x 3 days For Constipation 30 ml 2023 Active 2023 86480 93776 2 By Mouth False Ondansetron 4 mg disintegrat ing tablet [generic] 11/12 Inactiv e 2023 47417 47287 4 Ondansetron 4 mg disintegrat ing tablet [generic] 4 mg By Mouth Every 6 hours as needed For Nausea 4 mg 2023 Active 2023 99736 43441 4 Every 6 hours as needed By Mouth False Potassium chloride ER 10 mEq capsule,ext ended release [generic] 40 mEq By Mouth Once daily For hypokalemia 40 mEq 2023 Active 2023 66882 64231 1 Once daily By Mouth False Potassium chloride ER 10 mEq capsule,ext ended release [generic] 4 capsules By Mouth At bedtime For hypokalemia 4 capsule s 11/16 Active 2023 28109 15334 1 At bedtime By Mouth False Flomax 0.4 mg capsule 0.4 mg By Mouth At bedtime For Urinary retention 0.4 mg 2023 Active 2023 75270 96518 1 At bedtime By Mouth False STOOL CULTURE Once daily Obtain stool culture, add C. Diff to routine stool culture For Rule out C. Diff 1x 2023 Active 2023 Once daily Other False Butrans 5 mcg/hour transdermal patch 1 patch Transdermal Every 7 Days For Pain 1 patch 2023 Active 2023 63963 23686 4 Every week Transd ermal False Problems [...] Temperature SpO2 Blood Sugar Pulse Respirations 918 87935 5 75.00 mm[Hg] - Sitting 140.00 mm[Hg] - Sitting 65 NI 98.00 Tympanic 95.00 % 102.00 /min 18.00/min 66573 918 87276 9 42571 918 12740 2 75.00 mm[Hg] - Sitting 140.00 mm[Hg] - Sitting 98.00 Tympanic 102.00 /min 18.00/min 71464 918 09456 3 38108 918 47079 1 72.00 mm[Hg] - Sitting 138.00 mm[Hg] - Sitting 98.40 Tympanic 41734 918 08731 4 88.00/ min 18.00/min 919 32685 4 71.00 mm[Hg] - Sitting 115.00 mm[Hg] - Sitting 98.30 Tympanic 97.00 % 86.00/ min 16.00/min 59427 919 32933 0 71.00 mm[Hg] - Sitting 115.00 mm[Hg] - Sitting 98.30 Tympanic 86.00/ min 16.00/min 919 46372 7 71.00 mm[Hg] - Sitting 115.00 mm[Hg] - Sitting 98.30 Tympanic 86.00/ min 16.00/min 06756 920 83084 6 72.00 mm[Hg] - Sitting 112.00 mm[Hg] - Sitting 98.10 Tympanic 82.00/ min 18.00/min 10196 920 19299 0 75.00 mm[Hg] - Sitting 130.00 mm[Hg] - Sitting 98.40 Forehead Scan 93.00 % 88.00/ min 18.00/min 920 48977 2 75.00 mm[Hg] - Lying Down 130.00 mm[Hg] - Lying Down 98.40 Tympanic 88.00/ min 18.00/min
--- OUTSIDE RECORDS SUMMARY | 2023-12-14 00:03 | External Medical Summary | Continuity Of Care Document ---
Author Name Unknown Address [address] [place] [address] Organization [facility] () Care Team Providers Care Space Scheduler Name Role Phone DO Parson Amy Primary Care Provider [phone] Allergies Allergy Reaction Start Date End Date [...] 3 0.1 mL 11/13 Inactiv e 2023 03130 55283 0 1 time Intrad ermal False Tubersol 5 tub. unit/0.1 mL intradermal injection solution [Tuberculin PPD] 0.1mL Intradermal 1 time For PPD 2nd Step Give 2nd Step PPD Day 1 and Read results Day 3 (schedule 7 days after 1st READ) 0.1mL 11/13 Inactiv e 2023 11461 52357 0 1 time Intrad ermal False DISCONTINUE as of 11/14/2023: Tubersol 5 tub. unit/0.1 mL intradermal injection solution [Tuberculin PPD] 11/13 Inactiv e 2023 97099 68801 0 Tubersol 5 tub. unit/0.1 mL intradermal injection solution 0.1 mL Intradermal 1 time For PPD Step 1 GIVE on Day 1 and read results Day 3 0.1 mL 11/16 Active 2023 19790 39860 1 1 time Intrad ermal False DISCONTINUE as of 11/14/2023: Tubersol 5 tub. unit/0.1 mL intradermal injection solution [Tuberculin PPD] 11/13 Inactiv e 2023 25619 43140 0 Tubersol 5 tub. unit/0.1 mL intradermal injection solution 0.1mL Intradermal 1 time For PPD 2nd Step Give 2nd Step PPD Day 1 and Read results Day 3 (schedule 7 days after 1st READ) 0.1mL 11/25 Active 2023 07852 81332 1 1 time Intrad ermal False Tylenol 325 mg tablet 2 tabs By Mouth Every 4 hours as needed For Pain DO NOT EXCEED 3000 MG APAP/24 Hours 2 tabs 2023 Active 2023 56117 20001 0 Every 4 hours as needed By Mouth False Tylenol 325 mg tablet 2 tabs By Mouth Every 4 hours as needed For Fever >100 DO NOT EXCEED 3000 MG APAP/24 Hours 2 tabs 202300 Active 2023 36536 50237 0 Every 4 hours as needed By Mouth False Dulcolax (bisacodyl) 10 mg rectal suppository One Suppository per rectum PRN if Milk of Magnisia ineffective. Give on day 5 of no BM 1 sup 2023 Active 2023 90541 28650 1 Daily as needed Rectal False Fleet Enema 19 gram-7 gram/118 mL Administer per rectum PRN one time if dulcolax suppository not effective. Give on day 6 of no BM 1 202300 Active 2023 14907 56072 6 Daily as needed Rectal False Dextrose 50 % in water (D50W) intravenous solution [generic] Dextrose 50% reyes 20-50 ml (slow push) Intravenous if Glucagon not effective after 15 minutes. CALL 911 for ED Evaluation. 50% reyes 202300 0000 Active 2023 73436 83793 9 Intrav enous False Glucagon (HCl) Emergency Kit 1 mg solution for injection Administer Glucagon 1 mg Intramuscular if 15 minutes after GLucose Gel is administered Glucose remains less than 70 1 mg 2023 Active 2023 89867 41131 2 Intram uscula r False Glucose Gel 40 % oral gel [Dextrose] PRN If resident is unable to swallow (with or without symptoms) and Glucose results less than 70 give GLucose 40% Gel 1 tube orally - Recheck Glucose 15 minutes after administratio n. 1 tube 2023 Active 2023 47488 68989 8 By Mouth False Lorazepam 0.5 mg tablet [generic] 0.5 mg By Mouth Every 8 hours as needed For Anxiety 0.5 mg 2023 Active 2023 43467 40699 0 Every 8 hours as needed By Mouth False Potassium chloride ER 20 mEq tablet,exte nded release [generic] 40 meq By Mouth Once daily For Hypokalemia 40 meq 11/13 Inactiv e 2023 71197 58347 1 Once daily By Mouth False Colesevelam 625 mg tablet [generic] 1250 mg By Mouth Twice daily For TYPE 2 DIABETES MELLITUS WITHOUT COMPLICATIONS 1250 mg 2023 Active 2023 40906 81500 1 Twice daily By Mouth E11.9 False Pioglitazon e 15 mg tablet [generic] 15 mg By Mouth Once daily For TYPE 2 DIABETES MELLITUS WITHOUT COMPLICATIONS 15 mg 2023 Active 2023 04865 07378 1 Once daily By Mouth E11.9 False Cholecalcif hardeep (vitamin D3) 50 mcg (2,000 unit) tablet [generic] 50 mcg By Mouth Once daily For Supplement 50 mcg 2023 Active 2023 90314 63427 1 Once daily By Mouth False Colchicine 0.6 mg tablet [generic] 0.6 mg By Mouth Twice daily As Needed For Gout 0.6 mg 2023 Active 2023 58364 32259 4 Twice daily By Mouth False Levothyroxi ne 200 mcg tablet [generic] 200 mcg By Mouth Once daily For Hypothyroidis m 200 mcg 2023 Active 2023 41563 52448 0 Once daily By Mouth False Ondansetron 4 mg disintegrat ing tablet [generic] 4 mg By Mouth Every 6 hours as needed For Nausea 4 mg 11/12 Inactiv e 2023 70359 63018 4 Every 6 hours as needed By Mouth False Docusate sodium 100 mg capsule [generic] 100 mg By Mouth Twice daily For Constipation 100 mg 2023 Active 2023 63190 54428 1 Twice daily By Mouth False Oxycodone 5 mg tablet [generic] 5 mg By Mouth Every 6 hours as needed For Pain 5 mg 11/12 Inactiv e 2023 65351 95541 1 Every 6 hours as needed By Mouth False Oxycodone 5 mg tablet [generic] 5 mg By Mouth Every 6 hours as needed For Pain 5 mg 2023 Active 2023 33576 35095 1 Every 6 hours as needed By Mouth False Milk of Magnesia 400 mg/5 mL oral suspension 30 ml By Mouth one time per day as needed if no BM x 3 days For Constipation 30 ml 2023 Active 2023 38050 23952 2 By Mouth False Ondansetron 4 mg disintegrat ing tablet [generic] 11/12 Inactiv e 2023 20502 24747 4 Ondansetron 4 mg disintegrat ing tablet [generic] 4 mg By Mouth Every 6 hours as needed For Nausea 4 mg 2023 Active 2023 66047 10584 4 Every 6 hours as needed By Mouth False Potassium chloride ER 10 mEq capsule,ext ended release [generic] 40 mEq By Mouth Once daily For hypokalemia 40 mEq 2023 Active 2023 51341 87814 1 Once daily By Mouth False Potassium chloride ER 10 mEq capsule,ext ended release [generic] 4 capsules By Mouth At bedtime For hypokalemia 4 capsule s 11/16 Active 2023 89253 62579 1 At bedtime By Mouth False Flomax 0.4 mg capsule 0.4 mg By Mouth At bedtime For Urinary retention 0.4 mg 2023 Active 2023 76352 02261 1 At bedtime By Mouth False STOOL CULTURE Once daily Obtain stool culture, add C. Diff to routine stool culture For Rule out C. Diff 1x 2023 Active 2023 Once daily Other False Butrans 5 mcg/hour transdermal patch 1 patch Transdermal Every 7 Days For Pain 1 patch 2023 Active 2023 06435 91231 4 Every week Transd ermal False Problems [...] Temperature SpO2 Blood Sugar Pulse Respirations 918 78862 5 75.00 mm[Hg] - Sitting 140.00 mm[Hg] - Sitting 65 NI 98.00 Tympanic 95.00 % 102.00 /min 18.00/min 63551 918 12747 9 54515 918 31730 2 75.00 mm[Hg] - Sitting 140.00 mm[Hg] - Sitting 98.00 Tympanic 102.00 /min 18.00/min 62451 918 01741 3 06253 918 29093 1 72.00 mm[Hg] - Sitting 138.00 mm[Hg] - Sitting 98.40 Tympanic 96967 918 55508 4 88.00/ min 18.00/min 919 93064 4 71.00 mm[Hg] - Sitting 115.00 mm[Hg] - Sitting 98.30 Tympanic 97.00 % 86.00/ min 16.00/min 50393 919 00931 0 71.00 mm[Hg] - Sitting 115.00 mm[Hg] - Sitting 98.30 Tympanic 86.00/ min 16.00/min 919 24894 7 71.00 mm[Hg] - Sitting 115.00 mm[Hg] - Sitting 98.30 Tympanic 86.00/ min 16.00/min 57717 920 02169 6 72.00 mm[Hg] - Sitting 112.00 mm[Hg] - Sitting 98.10 Tympanic 82.00/ min 18.00/min 69204 920 00327 0 75.00 mm[Hg] - Sitting 130.00 mm[Hg] - Sitting 98.40 Forehead Scan 93.00 % 88.00/ min 18.00/min 920 92604 2 75.00 mm[Hg] - Lying Down 130.00 mm[Hg] - Lying Down 98.40 Tympanic 88.00/ min 18.00/min
--- OUTSIDE RECORDS SUMMARY | 2023-12-14 00:03 | External Medical Summary | Continuity Of Care Document ---
Author Name Unknown Address [address] [place] [address] Organization [facility] () Care Team Providers Care Sanitation Director Name Role Phone DO Parson Amy Primary Care Provider [phone] Allergies Allergy Reaction Start Date End Date [...] 3 0.1 mL 11/13 Inactiv e 2023 48500 62318 0 1 time Intrad ermal False Tubersol 5 tub. unit/0.1 mL intradermal injection solution [Tuberculin PPD] 0.1mL Intradermal 1 time For PPD 2nd Step Give 2nd Step PPD Day 1 and Read results Day 3 (schedule 7 days after 1st READ) 0.1mL 11/13 Inactiv e 2023 31824 74662 0 1 time Intrad ermal False DISCONTINUE as of 11/14/2023: Tubersol 5 tub. unit/0.1 mL intradermal injection solution [Tuberculin PPD] 11/13 Inactiv e 2023 11469 09653 0 Tubersol 5 tub. unit/0.1 mL intradermal injection solution 0.1 mL Intradermal 1 time For PPD Step 1 GIVE on Day 1 and read results Day 3 0.1 mL 11/16 Active 2023 28691 67842 1 1 time Intrad ermal False DISCONTINUE as of 11/14/2023: Tubersol 5 tub. unit/0.1 mL intradermal injection solution [Tuberculin PPD] 11/13 Inactiv e 2023 41116 19525 0 Tubersol 5 tub. unit/0.1 mL intradermal injection solution 0.1mL Intradermal 1 time For PPD 2nd Step Give 2nd Step PPD Day 1 and Read results Day 3 (schedule 7 days after 1st READ) 0.1mL 11/25 Active 2023 59890 75055 1 1 time Intrad ermal False Tylenol 325 mg tablet 2 tabs By Mouth Every 4 hours as needed For Pain DO NOT EXCEED 3000 MG APAP/24 Hours 2 tabs 2023 Active 2023 60983 82744 0 Every 4 hours as needed By Mouth False Tylenol 325 mg tablet 2 tabs By Mouth Every 4 hours as needed For Fever >100 DO NOT EXCEED 3000 MG APAP/24 Hours 2 tabs 202300 Active 2023 74519 81689 0 Every 4 hours as needed By Mouth False Dulcolax (bisacodyl) 10 mg rectal suppository One Suppository per rectum PRN if Milk of Magnisia ineffective. Give on day 5 of no BM 1 sup 2023 Active 2023 67541 88900 1 Daily as needed Rectal False Fleet Enema 19 gram-7 gram/118 mL Administer per rectum PRN one time if dulcolax suppository not effective. Give on day 6 of no BM 1 202300 Active 2023 44961 68674 6 Daily as needed Rectal False Dextrose 50 % in water (D50W) intravenous solution [generic] Dextrose 50% reyes 20-50 ml (slow push) Intravenous if Glucagon not effective after 15 minutes. CALL 911 for ED Evaluation. 50% reyes 202300 0000 Active 2023 28040 23329 9 Intrav enous False Glucagon (HCl) Emergency Kit 1 mg solution for injection Administer Glucagon 1 mg Intramuscular if 15 minutes after GLucose Gel is administered Glucose remains less than 70 1 mg 2023 Active 2023 41307 84287 2 Intram uscula r False Glucose Gel 40 % oral gel [Dextrose] PRN If resident is unable to swallow (with or without symptoms) and Glucose results less than 70 give GLucose 40% Gel 1 tube orally - Recheck Glucose 15 minutes after administratio n. 1 tube 2023 Active 2023 19313 54330 8 By Mouth False Lorazepam 0.5 mg tablet [generic] 0.5 mg By Mouth Every 8 hours as needed For Anxiety 0.5 mg 2023 Active 2023 09585 22124 0 Every 8 hours as needed By Mouth False Potassium chloride ER 20 mEq tablet,exte nded release [generic] 40 meq By Mouth Once daily For Hypokalemia 40 meq 11/13 Inactiv e 2023 09054 49256 1 Once daily By Mouth False Colesevelam 625 mg tablet [generic] 1250 mg By Mouth Twice daily For TYPE 2 DIABETES MELLITUS WITHOUT COMPLICATIONS 1250 mg 2023 Active 2023 12473 48871 1 Twice daily By Mouth E11.9 False Pioglitazon e 15 mg tablet [generic] 15 mg By Mouth Once daily For TYPE 2 DIABETES MELLITUS WITHOUT COMPLICATIONS 15 mg 2023 Active 2023 97307 33590 1 Once daily By Mouth E11.9 False Cholecalcif hardeep (vitamin D3) 50 mcg (2,000 unit) tablet [generic] 50 mcg By Mouth Once daily For Supplement 50 mcg 2023 Active 2023 58811 45742 1 Once daily By Mouth False Colchicine 0.6 mg tablet [generic] 0.6 mg By Mouth Twice daily As Needed For Gout 0.6 mg 2023 Active 2023 64819 48685 4 Twice daily By Mouth False Levothyroxi ne 200 mcg tablet [generic] 200 mcg By Mouth Once daily For Hypothyroidis m 200 mcg 2023 Active 2023 49789 43806 0 Once daily By Mouth False Ondansetron 4 mg disintegrat ing tablet [generic] 4 mg By Mouth Every 6 hours as needed For Nausea 4 mg 11/12 Inactiv e 2023 96249 35844 4 Every 6 hours as needed By Mouth False Docusate sodium 100 mg capsule [generic] 100 mg By Mouth Twice daily For Constipation 100 mg 2023 Active 2023 55887 03008 1 Twice daily By Mouth False Oxycodone 5 mg tablet [generic] 5 mg By Mouth Every 6 hours as needed For Pain 5 mg 11/12 Inactiv e 2023 16272 71919 1 Every 6 hours as needed By Mouth False Oxycodone 5 mg tablet [generic] 5 mg By Mouth Every 6 hours as needed For Pain 5 mg 2023 Active 2023 78175 09233 1 Every 6 hours as needed By Mouth False Milk of Magnesia 400 mg/5 mL oral suspension 30 ml By Mouth one time per day as needed if no BM x 3 days For Constipation 30 ml 2023 Active 2023 05468 47502 2 By Mouth False Ondansetron 4 mg disintegrat ing tablet [generic] 11/12 Inactiv e 2023 20039 44746 4 Ondansetron 4 mg disintegrat ing tablet [generic] 4 mg By Mouth Every 6 hours as needed For Nausea 4 mg 2023 Active 2023 30413 28124 4 Every 6 hours as needed By Mouth False Potassium chloride ER 10 mEq capsule,ext ended release [generic] 40 mEq By Mouth Once daily For hypokalemia 40 mEq 2023 Active 2023 66976 06597 1 Once daily By Mouth False Potassium chloride ER 10 mEq capsule,ext ended release [generic] 4 capsules By Mouth At bedtime For hypokalemia 4 capsule s 11/16 Active 2023 41806 46817 1 At bedtime By Mouth False Problems [...] weight Temperature SpO2 Blood Sugar Pulse Respirations 88932 5 75.00 mm[Hg] - Sitting 140.00 mm[Hg] - Sitting 65 NI 98.00 Tympanic 95.00 % 102.00 /min 18.00/min 8 60086 9 918 42321 2 75.00 mm[Hg] - Sitting 140.00 mm[Hg] - Sitting 98.00 Tympanic 102.00 /min 18.00/min 8 88447 3 8 72625 1 72.00 mm[Hg] - Sitting 138.00 mm[Hg] - Sitting 98.40 Tympanic 8 12956 4 88.00/ min 18.00/min
--- OUTSIDE RECORDS SUMMARY | 2023-12-14 00:03 | External Medical Summary | Continuity Of Care Document ---
Author Name Unknown Address [address] [place] [address] Organization [facility][note 3] [place] () Care Team Providers Care [employer] Name Role Phone DO Parson Amy Primary Care Provider [phone] Allergies Allergy Reaction Start Date End Date [...] 3 0.1 mL 11/13 Inactiv e 2023 20705 07374 0 1 time Intrad ermal False Tubersol 5 tub. unit/0.1 mL intradermal injection solution [Tuberculin PPD] 0.1mL Intradermal 1 time For PPD 2nd Step Give 2nd Step PPD Day 1 and Read results Day 3 (schedule 7 days after 1st READ) 0.1mL 11/13 Inactiv e 2023 45747 00621 0 1 time Intrad ermal False DISCONTINUE as of 11/14/2023: Tubersol 5 tub. unit/0.1 mL intradermal injection solution [Tuberculin PPD] 11/13 Inactiv e 2023 32443 48209 0 Tubersol 5 tub. unit/0.1 mL intradermal injection solution 0.1 mL Intradermal 1 time For PPD Step 1 GIVE on Day 1 and read results Day 3 0.1 mL 11/16 Active 2023 04228 76570 1 1 time Intrad ermal False DISCONTINUE as of 11/14/2023: Tubersol 5 tub. unit/0.1 mL intradermal injection solution [Tuberculin PPD] 11/13 Inactiv e 2023 96671 08919 0 Tubersol 5 tub. unit/0.1 mL intradermal injection solution 0.1mL Intradermal 1 time For PPD 2nd Step Give 2nd Step PPD Day 1 and Read results Day 3 (schedule 7 days after 1st READ) 0.1mL 11/25 Active 2023 19465 92992 1 1 time Intrad ermal False Tylenol 325 mg tablet 2 tabs By Mouth Every 4 hours as needed For Pain DO NOT EXCEED 3000 MG APAP/24 Hours 2 tabs 2023 Active 2023 35520 04638 0 Every 4 hours as needed By Mouth False Tylenol 325 mg tablet 2 tabs By Mouth Every 4 hours as needed For Fever >100 DO NOT EXCEED 3000 MG APAP/24 Hours 2 tabs 202300 Active 2023 26984 35859 0 Every 4 hours as needed By Mouth False Dulcolax (bisacodyl) 10 mg rectal suppository One Suppository per rectum PRN if Milk of Magnisia ineffective. Give on day 5 of no BM 1 sup 2023 Active 2023 94036 12739 1 Daily as needed Rectal False Fleet Enema 19 gram-7 gram/118 mL Administer per rectum PRN one time if dulcolax suppository not effective. Give on day 6 of no BM 1 202300 Active 2023 73419 94008 6 Daily as needed Rectal False Dextrose 50 % in water (D50W) intravenous solution [generic] Dextrose 50% reyes 20-50 ml (slow push) Intravenous if Glucagon not effective after 15 minutes. CALL 911 for ED Evaluation. 50% reyes 202300 0000 Active 2023 17003 50491 9 Intrav enous False Glucagon (HCl) Emergency Kit 1 mg solution for injection Administer Glucagon 1 mg Intramuscular if 15 minutes after GLucose Gel is administered Glucose remains less than 70 1 mg 2023 Active 2023 53153 21829 2 Intram uscula r False Glucose Gel 40 % oral gel [Dextrose] PRN If resident is unable to swallow (with or without symptoms) and Glucose results less than 70 give GLucose 40% Gel 1 tube orally - Recheck Glucose 15 minutes after administratio n. 1 tube 2023 Active 2023 46878 64460 8 By Mouth False Lorazepam 0.5 mg tablet [generic] 0.5 mg By Mouth Every 8 hours as needed For Anxiety 0.5 mg 2023 Active 2023 02593 66125 0 Every 8 hours as needed By Mouth False Potassium chloride ER 20 mEq tablet,exte nded release [generic] 40 meq By Mouth Once daily For Hypokalemia 40 meq 11/13 Inactiv e 2023 11059 75550 1 Once daily By Mouth False Colesevelam 625 mg tablet [generic] 1250 mg By Mouth Twice daily For TYPE 2 DIABETES MELLITUS WITHOUT COMPLICATIONS 1250 mg 2023 Active 2023 67507 83548 1 Twice daily By Mouth E11.9 False Pioglitazon e 15 mg tablet [generic] 15 mg By Mouth Once daily For TYPE 2 DIABETES MELLITUS WITHOUT COMPLICATIONS 15 mg 2023 Active 2023 65602 15372 1 Once daily By Mouth E11.9 False Cholecalcif hardeep (vitamin D3) 50 mcg (2,000 unit) tablet [generic] 50 mcg By Mouth Once daily For Supplement 50 mcg 2023 Active 2023 54613 42889 1 Once daily By Mouth False Colchicine 0.6 mg tablet [generic] 0.6 mg By Mouth Twice daily As Needed For Gout 0.6 mg 2023 Active 2023 53365 07807 4 Twice daily By Mouth False Levothyroxi ne 200 mcg tablet [generic] 200 mcg By Mouth Once daily For Hypothyroidis m 200 mcg 2023 Active 2023 13644 80387 0 Once daily By Mouth False Ondansetron 4 mg disintegrat ing tablet [generic] 4 mg By Mouth Every 6 hours as needed For Nausea 4 mg 11/12 Inactiv e 2023 27155 56167 4 Every 6 hours as needed By Mouth False Docusate sodium 100 mg capsule [generic] 100 mg By Mouth Twice daily For Constipation 100 mg 2023 Active 2023 41295 15060 1 Twice daily By Mouth False Oxycodone 5 mg tablet [generic] 5 mg By Mouth Every 6 hours as needed For Pain 5 mg 11/12 Inactiv e 2023 98793 39380 1 Every 6 hours as needed By Mouth False Oxycodone 5 mg tablet [generic] 5 mg By Mouth Every 6 hours as needed For Pain 5 mg 2023 Active 2023 39548 28631 1 Every 6 hours as needed By Mouth False Milk of Magnesia 400 mg/5 mL oral suspension 30 ml By Mouth one time per day as needed if no BM x 3 days For Constipation 30 ml 2023 Active 2023 78021 69486 2 By Mouth False Ondansetron 4 mg disintegrat ing tablet [generic] 11/12 Inactiv e 2023 16578 97974 4 Ondansetron 4 mg disintegrat ing tablet [generic] 4 mg By Mouth Every 6 hours as needed For Nausea 4 mg 11/14 Inactiv e 2023 35680 51222 4 Every 6 hours as needed By Mouth False Potassium chloride ER 10 mEq capsule,ext ended release [generic] 40 mEq By Mouth Once daily For hypokalemia 40 mEq 202300 Active 2023 63300 81542 1 Once daily By Mouth False Potassium chloride ER 10 mEq capsule,ext ended release [generic] 4 capsules By Mouth At bedtime For hypokalemia 4 capsule s 11/16 Active 2023 92265 87562 1 At bedtime By Mouth False Flomax 0.4 mg capsule 0.4 mg By Mouth At bedtime For Urinary retention 0.4 mg 2023 Active 2023 57993 74097 1 At bedtime By Mouth False STOOL CULTURE Once daily Obtain stool culture, add C. Diff to routine stool culture For Rule out C. Diff 1x 2023 Active 2023 Once daily Other False Butrans 5 mcg/hour transdermal patch 1 patch Transdermal Every 7 Days For Pain 1 patch 2023 Active 2023 19807 18447 4 Every week Transd ermal False Pantoprazol e 40 mg tablet,nu yed release [generic] 40 mg By Mouth Twice daily For gerd 40 mg 2023 Active 2023 13813 57986 0 Twice daily By Mouth False Scopolamine 1 mg over 3 days transdermal patch [generic] 1 Transdermal Every 72 hours For nausea 1 11/21 Active 2023 75804 85590 4 Every 72 hours Transd ermal False Ondansetron 4 mg disintegrat ing tablet [generic] 11/14 Inactiv e 2023 95142 10186 4 Ondansetron 4 mg disintegrat ing tablet [generic] 4 mg By Mouth Every 8 hours For Nausea 4 mg 2023 Active 2023 08271 70509 4 Every 8 hours By Mouth False [...] Temperature SpO2 Blood Sugar Pulse Respirations 8 39308 5 75.00 mm[Hg] - Sitting 140.00 mm[Hg] - Sitting 65 NI 98.00 Tympanic 95.00 % 102.00 /min 18.00/min 89535 918 50342 9 84679 918 44375 2 75.00 mm[Hg] - Sitting 140.00 mm[Hg] - Sitting 98.00 Tympanic 102.00 /min 18.00/min 48393 918 44843 3 09136 918 36441 1 72.00 mm[Hg] - Sitting 138.00 mm[Hg] - Sitting 98.40 Tympanic 51282 918 08382 4 88.00/ min 18.00/min 87270 919 16518 4 71.00 mm[Hg] - Sitting 115.00 mm[Hg] - Sitting 98.30 Tympanic 97.00 % 86.00/ min 16.00/min 99240 919 38268 0 71.00 mm[Hg] - Sitting 115.00 mm[Hg] - Sitting 98.30 Tympanic 86.00/ min 16.00/min 77653 919 83625 7 71.00 mm[Hg] - Sitting 115.00 mm[Hg] - Sitting 98.30 Tympanic 86.00/ min 16.00/min 17478 920 49225 6 72.00 mm[Hg] - Sitting 112.00 mm[Hg] - Sitting 98.10 Tympanic 82.00/ min 18.00/min 16233 920 42594 0 75.00 mm[Hg] - Sitting 130.00 mm[Hg] - Sitting 98.40 Forehead Scan 93.00 % 88.00/ min 18.00/min 920 92289 2 75.00 mm[Hg] - Lying Down 130.00 mm[Hg] - Lying Down 98.40 Tympanic 88.00/ min 18.00/min
--- OUTSIDE RECORDS SUMMARY | 2023-12-14 00:03 | External Medical Summary | Continuity Of Care Document ---
Author Name Unknown Address [address] [place] [address] Organization [facility] () Care Team Providers Care Power Transformer Assembler Name Role Phone DO Parson Amy Primary Care Provider [phone] Allergies Allergy Reaction Start Date End Date [...] 3 0.1 mL 11/13 Inactiv e 2023 87567 02453 0 1 time Intrad ermal False Tubersol 5 tub. unit/0.1 mL intradermal injection solution [Tuberculin PPD] 0.1mL Intradermal 1 time For PPD 2nd Step Give 2nd Step PPD Day 1 and Read results Day 3 (schedule 7 days after 1st READ) 0.1mL 11/13 Inactiv e 2023 86009 82525 0 1 time Intrad ermal False DISCONTINUE as of 11/14/2023: Tubersol 5 tub. unit/0.1 mL intradermal injection solution [Tuberculin PPD] 11/13 Inactiv e 2023 32964 12979 0 Tubersol 5 tub. unit/0.1 mL intradermal injection solution 0.1 mL Intradermal 1 time For PPD Step 1 GIVE on Day 1 and read results Day 3 0.1 mL 11/16 Active 2023 12454 04185 1 1 time Intrad ermal False DISCONTINUE as of 11/14/2023: Tubersol 5 tub. unit/0.1 mL intradermal injection solution [Tuberculin PPD] 11/13 Inactiv e 2023 17679 44011 0 Tubersol 5 tub. unit/0.1 mL intradermal injection solution 0.1mL Intradermal 1 time For PPD 2nd Step Give 2nd Step PPD Day 1 and Read results Day 3 (schedule 7 days after 1st READ) 0.1mL 11/25 Active 2023 00874 35013 1 1 time Intrad ermal False Tylenol 325 mg tablet 2 tabs By Mouth Every 4 hours as needed For Pain DO NOT EXCEED 3000 MG APAP/24 Hours 2 tabs 2023 Active 2023 26447 82888 0 Every 4 hours as needed By Mouth False Tylenol 325 mg tablet 2 tabs By Mouth Every 4 hours as needed For Fever >100 DO NOT EXCEED 3000 MG APAP/24 Hours 2 tabs 202300 Active 2023 02708 25726 0 Every 4 hours as needed By Mouth False Dulcolax (bisacodyl) 10 mg rectal suppository One Suppository per rectum PRN if Milk of Magnisia ineffective. Give on day 5 of no BM 1 sup 2023 Active 2023 14557 66183 1 Daily as needed Rectal False Fleet Enema 19 gram-7 gram/118 mL Administer per rectum PRN one time if dulcolax suppository not effective. Give on day 6 of no BM 1 202300 Active 2023 01644 65036 6 Daily as needed Rectal False Dextrose 50 % in water (D50W) intravenous solution [generic] Dextrose 50% reyes 20-50 ml (slow push) Intravenous if Glucagon not effective after 15 minutes. CALL 911 for ED Evaluation. 50% reyes 202300 0000 Active 2023 04213 75223 9 Intrav enous False Glucagon (HCl) Emergency Kit 1 mg solution for injection Administer Glucagon 1 mg Intramuscular if 15 minutes after GLucose Gel is administered Glucose remains less than 70 1 mg 2023 Active 2023 89951 44154 2 Intram uscula r False Glucose Gel 40 % oral gel [Dextrose] PRN If resident is unable to swallow (with or without symptoms) and Glucose results less than 70 give GLucose 40% Gel 1 tube orally - Recheck Glucose 15 minutes after administratio n. 1 tube 2023 Active 2023 63227 95773 8 By Mouth False Lorazepam 0.5 mg tablet [generic] 0.5 mg By Mouth Every 8 hours as needed For Anxiety 0.5 mg 2023 Active 2023 03842 75194 0 Every 8 hours as needed By Mouth False Potassium chloride ER 20 mEq tablet,exte nded release [generic] 40 meq By Mouth Once daily For Hypokalemia 40 meq 11/13 Inactiv e 2023 94784 81495 1 Once daily By Mouth False Colesevelam 625 mg tablet [generic] 1250 mg By Mouth Twice daily For TYPE 2 DIABETES MELLITUS WITHOUT COMPLICATIONS 1250 mg 2023 Active 2023 82642 90245 1 Twice daily By Mouth E11.9 False Pioglitazon e 15 mg tablet [generic] 15 mg By Mouth Once daily For TYPE 2 DIABETES MELLITUS WITHOUT COMPLICATIONS 15 mg 2023 Active 2023 59329 76289 1 Once daily By Mouth E11.9 False Cholecalcif hardeep (vitamin D3) 50 mcg (2,000 unit) tablet [generic] 50 mcg By Mouth Once daily For Supplement 50 mcg 2023 Active 2023 00905 89501 1 Once daily By Mouth False Colchicine 0.6 mg tablet [generic] 0.6 mg By Mouth Twice daily As Needed For Gout 0.6 mg 2023 Active 2023 55366 05053 4 Twice daily By Mouth False Levothyroxi ne 200 mcg tablet [generic] 200 mcg By Mouth Once daily For Hypothyroidis m 200 mcg 2023 Active 2023 51805 26269 0 Once daily By Mouth False Ondansetron 4 mg disintegrat ing tablet [generic] 4 mg By Mouth Every 6 hours as needed For Nausea 4 mg 11/12 Inactiv e 2023 74449 15956 4 Every 6 hours as needed By Mouth False Docusate sodium 100 mg capsule [generic] 100 mg By Mouth Twice daily For Constipation 100 mg 2023 Active 2023 47367 12673 1 Twice daily By Mouth False Oxycodone 5 mg tablet [generic] 5 mg By Mouth Every 6 hours as needed For Pain 5 mg 11/12 Inactiv e 2023 82215 46908 1 Every 6 hours as needed By Mouth False Oxycodone 5 mg tablet [generic] 5 mg By Mouth Every 6 hours as needed For Pain 5 mg 2023 Active 2023 61419 07414 1 Every 6 hours as needed By Mouth False Milk of Magnesia 400 mg/5 mL oral suspension 30 ml By Mouth one time per day as needed if no BM x 3 days For Constipation 30 ml 2023 Active 2023 53068 36625 2 By Mouth False Ondansetron 4 mg disintegrat ing tablet [generic] 11/12 Inactiv e 2023 79624 34636 4 Ondansetron 4 mg disintegrat ing tablet [generic] 4 mg By Mouth Every 6 hours as needed For Nausea 4 mg 11/14 Inactiv e 2023 94423 87996 4 Every 6 hours as needed By Mouth False Potassium chloride ER 10 mEq capsule,ext ended release [generic] 40 mEq By Mouth Once daily For hypokalemia 40 mEq 202300 Active 2023 37093 09096 1 Once daily By Mouth False Potassium chloride ER 10 mEq capsule,ext ended release [generic] 4 capsules By Mouth At bedtime For hypokalemia 4 capsule s 11/16 Active 2023 18947 18269 1 At bedtime By Mouth False Flomax 0.4 mg capsule 0.4 mg By Mouth At bedtime For Urinary retention 0.4 mg 2023 Active 2023 94312 44024 1 At bedtime By Mouth False STOOL CULTURE Once daily Obtain stool culture, add C. Diff to routine stool culture For Rule out C. Diff 1x 2023 Active 2023 Once daily Other False Butrans 5 mcg/hour transdermal patch 1 patch Transdermal Every 7 Days For Pain 1 patch 2023 Active 2023 84021 74452 4 Every week Transd ermal False Pantoprazol e 40 mg tablet,nu yed release [generic] 40 mg By Mouth Twice daily For gerd 40 mg 2023 Active 2023 67568 05855 0 Twice daily By Mouth False Scopolamine 1 mg over 3 days transdermal patch [generic] 1 Transdermal Every 72 hours For nausea 1 11/21 Active 2023 07679 73733 4 Every 72 hours Transd ermal False Ondansetron 4 mg disintegrat ing tablet [generic] 11/14 Inactiv e 2023 61325 21293 4 Ondansetron 4 mg disintegrat ing tablet [generic] 4 mg By Mouth Every 8 hours For Nausea 4 mg 2023 Active 2023 17871 97706 4 Every 8 hours By Mouth False Miralax 17 gram oral powder packet 8.5 g (1/2 capful) By Mouth Once daily For constipation 8.5 g 2023 Active 2023 41382 78241 6 Once daily By Mouth False Problems [...] Temperature SpO2 Blood Sugar Pulse Respirations 918 89270 5 75.00 mm[Hg] - Sitting 140.00 mm[Hg] - Sitting 65 NI 98.00 Tympanic 95.00 % 102.00 /min 18.00/min 918 98747 9 918 99538 2 75.00 mm[Hg] - Sitting 140.00 mm[Hg] - Sitting 98.00 Tympanic 102.00 /min 18.00/min 98466 918 95554 3 92841 918 22766 1 72.00 mm[Hg] - Sitting 138.00 mm[Hg] - Sitting 98.40 Tympanic 34396 918 36263 4 88.00/ min 18.00/min 33357 919 16261 4 71.00 mm[Hg] - Sitting 115.00 mm[Hg] - Sitting 98.30 Tympanic 97.00 % 86.00/ min 16.00/min 87131 919 29822 0 71.00 mm[Hg] - Sitting 115.00 mm[Hg] - Sitting 98.30 Tympanic 86.00/ min 16.00/min 919 69762 7 71.00 mm[Hg] - Sitting 115.00 mm[Hg] - Sitting 98.30 Tympanic 86.00/ min 16.00/min 920 38371 6 72.00 mm[Hg] - Sitting 112.00 mm[Hg] - Sitting 98.10 Tympanic 82.00/ min 18.00/min 920 56338 0 75.00 mm[Hg] - Sitting 130.00 mm[Hg] - Sitting 98.40 Forehead Scan 93.00 % 88.00/ min 18.00/min 920 56129 2 75.00 mm[Hg] - Lying Down 130.00 mm[Hg] - Lying Down 98.40 Tympanic 88.00/ min 18.00/min 920 04183 5 75.00 mm[Hg] - Lying Down 130.00 mm[Hg] - Lying Down 98.40 Tympanic 88.00/ min 18.00/min
--- OUTSIDE RECORDS SUMMARY | 2023-12-14 00:03 | External Medical Summary | Continuity Of Care Document ---
Author Name Unknown Address [address] [place] [address] Organization [facility] [place] () Care Team Providers Care Gum Dipper Name Role Phone DO Parson Amy Primary Care Provider [phone] Allergies Allergy Reaction Start Date End Date [...] 3 0.1 mL 11/13 Inactiv e 2023 56395 98254 0 1 time Intrad ermal False Tubersol 5 tub. unit/0.1 mL intradermal injection solution [Tuberculin PPD] 0.1mL Intradermal 1 time For PPD 2nd Step Give 2nd Step PPD Day 1 and Read results Day 3 (schedule 7 days after 1st READ) 0.1mL 11/13 Inactiv e 2023 54175 74879 0 1 time Intrad ermal False DISCONTINUE as of 11/14/2023: Tubersol 5 tub. unit/0.1 mL intradermal injection solution [Tuberculin PPD] 11/13 Inactiv e 2023 13999 52054 0 Tubersol 5 tub. unit/0.1 mL intradermal injection solution 0.1 mL Intradermal 1 time For PPD Step 1 GIVE on Day 1 and read results Day 3 0.1 mL 11/16 Active 2023 28360 51366 1 1 time Intrad ermal False DISCONTINUE as of 11/14/2023: Tubersol 5 tub. unit/0.1 mL intradermal injection solution [Tuberculin PPD] 11/13 Inactiv e 2023 33943 70089 0 Tubersol 5 tub. unit/0.1 mL intradermal injection solution 0.1mL Intradermal 1 time For PPD 2nd Step Give 2nd Step PPD Day 1 and Read results Day 3 (schedule 7 days after 1st READ) 0.1mL 11/25 Active 2023 20765 71049 1 1 time Intrad ermal False Tylenol 325 mg tablet 2 tabs By Mouth Every 4 hours as needed For Pain DO NOT EXCEED 3000 MG APAP/24 Hours 2 tabs 2023 Active 2023 31463 40609 0 Every 4 hours as needed By Mouth False Tylenol 325 mg tablet 2 tabs By Mouth Every 4 hours as needed For Fever >100 DO NOT EXCEED 3000 MG APAP/24 Hours 2 tabs 202300 Active 2023 97074 48251 0 Every 4 hours as needed By Mouth False Dulcolax (bisacodyl) 10 mg rectal suppository One Suppository per rectum PRN if Milk of Magnisia ineffective. Give on day 5 of no BM 1 sup 2023 Active 2023 32287 69721 1 Daily as needed Rectal False Fleet Enema 19 gram-7 gram/118 mL Administer per rectum PRN one time if dulcolax suppository not effective. Give on day 6 of no BM 1 202300 Active 2023 35313 54001 6 Daily as needed Rectal False Dextrose 50 % in water (D50W) intravenous solution [generic] Dextrose 50% reyes 20-50 ml (slow push) Intravenous if Glucagon not effective after 15 minutes. CALL 911 for ED Evaluation. 50% reyes 202300 0000 Active 2023 24163 31378 9 Intrav enous False Glucagon (HCl) Emergency Kit 1 mg solution for injection Administer Glucagon 1 mg Intramuscular if 15 minutes after GLucose Gel is administered Glucose remains less than 70 1 mg 2023 Active 2023 24244 63631 2 Intram uscula r False Glucose Gel 40 % oral gel [Dextrose] PRN If resident is unable to swallow (with or without symptoms) and Glucose results less than 70 give GLucose 40% Gel 1 tube orally - Recheck Glucose 15 minutes after administratio n. 1 tube 2023 Active 2023 69801 30288 8 By Mouth False Lorazepam 0.5 mg tablet [generic] 0.5 mg By Mouth Every 8 hours as needed For Anxiety 0.5 mg 2023 Active 2023 85451 62022 0 Every 8 hours as needed By Mouth False Potassium chloride ER 20 mEq tablet,exte nded release [generic] 40 meq By Mouth Once daily For Hypokalemia 40 meq 11/13 Inactiv e 2023 42096 87523 1 Once daily By Mouth False Colesevelam 625 mg tablet [generic] 1250 mg By Mouth Twice daily For TYPE 2 DIABETES MELLITUS WITHOUT COMPLICATIONS 1250 mg 2023 Active 2023 96457 60112 1 Twice daily By Mouth E11.9 False Pioglitazon e 15 mg tablet [generic] 15 mg By Mouth Once daily For TYPE 2 DIABETES MELLITUS WITHOUT COMPLICATIONS 15 mg 2023 Active 2023 34867 76781 1 Once daily By Mouth E11.9 False Cholecalcif hardeep (vitamin D3) 50 mcg (2,000 unit) tablet [generic] 50 mcg By Mouth Once daily For Supplement 50 mcg 2023 Active 2023 98886 93481 1 Once daily By Mouth False Colchicine 0.6 mg tablet [generic] 0.6 mg By Mouth Twice daily As Needed For Gout 0.6 mg 2023 Active 2023 22839 63114 4 Twice daily By Mouth False Levothyroxi ne 200 mcg tablet [generic] 200 mcg By Mouth Once daily For Hypothyroidis m 200 mcg 2023 Active 2023 73647 43722 0 Once daily By Mouth False Ondansetron 4 mg disintegrat ing tablet [generic] 4 mg By Mouth Every 6 hours as needed For Nausea 4 mg 11/12 Inactiv e 2023 06722 82268 4 Every 6 hours as needed By Mouth False Docusate sodium 100 mg capsule [generic] 100 mg By Mouth Twice daily For Constipation 100 mg 2023 Active 2023 32182 23170 1 Twice daily By Mouth False Oxycodone 5 mg tablet [generic] 5 mg By Mouth Every 6 hours as needed For Pain 5 mg 11/12 Inactiv e 2023 08574 08442 1 Every 6 hours as needed By Mouth False Oxycodone 5 mg tablet [generic] 5 mg By Mouth Every 6 hours as needed For Pain 5 mg 2023 Active 2023 01038 31317 1 Every 6 hours as needed By Mouth False Milk of Magnesia 400 mg/5 mL oral suspension 30 ml By Mouth one time per day as needed if no BM x 3 days For Constipation 30 ml 2023 Active 2023 04335 91617 2 By Mouth False Ondansetron 4 mg disintegrat ing tablet [generic] 11/12 Inactiv e 2023 50857 66570 4 Ondansetron 4 mg disintegrat ing tablet [generic] 4 mg By Mouth Every 6 hours as needed For Nausea 4 mg 2023 Active 2023 98786 43819 4 Every 6 hours as needed By Mouth False Potassium chloride ER 10 mEq capsule,ext ended release [generic] 40 mEq By Mouth Once daily For hypokalemia 40 mEq 2023 Active 2023 05290 04270 1 Once daily By Mouth False Potassium chloride ER 10 mEq capsule,ext ended release [generic] 4 capsules By Mouth At bedtime For hypokalemia 4 capsule s 11/16 Active 2023 27562 19494 1 At bedtime By Mouth False Flomax 0.4 mg capsule 0.4 mg By Mouth At bedtime For Urinary retention 0.4 mg 2023 Active 2023 30270 37390 1 At bedtime By Mouth False STOOL CULTURE Once daily Obtain stool culture, add C. Diff to routine stool culture For Rule out C. Diff 1x 2023 Active 2023 Once daily Other False Butrans 5 mcg/hour transdermal patch 1 patch Transdermal Every 7 Days For Pain 1 patch 2023 Active 2023 27648 13270 4 Every week Transd ermal False Problems [...] Temperature SpO2 Blood Sugar Pulse Respirations 918 27088 5 75.00 mm[Hg] - Sitting 140.00 mm[Hg] - Sitting 65 NI 98.00 Tympanic 95.00 % 102.00 /min 18.00/min 65342 918 83468 9 73597 918 37692 2 75.00 mm[Hg] - Sitting 140.00 mm[Hg] - Sitting 98.00 Tympanic 102.00 /min 18.00/min 47059 918 62215 3 49841 918 01823 1 72.00 mm[Hg] - Sitting 138.00 mm[Hg] - Sitting 98.40 Tympanic 26214 918 98083 4 88.00/ min 18.00/min 919 04009 4 71.00 mm[Hg] - Sitting 115.00 mm[Hg] - Sitting 98.30 Tympanic 97.00 % 86.00/ min 16.00/min 53413 919 22116 0 71.00 mm[Hg] - Sitting 115.00 mm[Hg] - Sitting 98.30 Tympanic 86.00/ min 16.00/min 919 08202 7 71.00 mm[Hg] - Sitting 115.00 mm[Hg] - Sitting 98.30 Tympanic 86.00/ min 16.00/min 29360 920 59474 6 72.00 mm[Hg] - Sitting 112.00 mm[Hg] - Sitting 98.10 Tympanic 82.00/ min 18.00/min 53238 920 72055 0 75.00 mm[Hg] - Sitting 130.00 mm[Hg] - Sitting 98.40 Forehead Scan 93.00 % 88.00/ min 18.00/min 920 75379 2 75.00 mm[Hg] - Lying Down 130.00 mm[Hg] - Lying Down 98.40 Tympanic 88.00/ min 18.00/min
--- OUTSIDE RECORDS SUMMARY | 2023-12-14 00:03 | External Medical Summary | Continuity Of Care Document ---
Author Name Unknown Address [address] [place] [address] Organization [facility] () Care Team Providers Care Commanding Officer Garage Name Role Phone DO Parson Amy Primary Care Provider [phone] Allergies Allergy Reaction Start Date End Date [...] 3 0.1 mL 11/13 Inactiv e 2023 92109 70345 0 1 time Intrad ermal False Tubersol 5 tub. unit/0.1 mL intradermal injection solution [Tuberculin PPD] 0.1mL Intradermal 1 time For PPD 2nd Step Give 2nd Step PPD Day 1 and Read results Day 3 (schedule 7 days after 1st READ) 0.1mL 11/13 Inactiv e 2023 56375 05488 0 1 time Intrad ermal False DISCONTINUE as of 11/14/2023: Tubersol 5 tub. unit/0.1 mL intradermal injection solution [Tuberculin PPD] 11/13 Inactiv e 2023 58237 03268 0 Tubersol 5 tub. unit/0.1 mL intradermal injection solution 0.1 mL Intradermal 1 time For PPD Step 1 GIVE on Day 1 and read results Day 3 0.1 mL 11/16 Active 2023 35431 33255 1 1 time Intrad ermal False DISCONTINUE as of 11/14/2023: Tubersol 5 tub. unit/0.1 mL intradermal injection solution [Tuberculin PPD] 11/13 Inactiv e 2023 02472 43781 0 Tubersol 5 tub. unit/0.1 mL intradermal injection solution 0.1mL Intradermal 1 time For PPD 2nd Step Give 2nd Step PPD Day 1 and Read results Day 3 (schedule 7 days after 1st READ) 0.1mL 11/25 Active 2023 63471 53338 1 1 time Intrad ermal False Tylenol 325 mg tablet 2 tabs By Mouth Every 4 hours as needed For Pain DO NOT EXCEED 3000 MG APAP/24 Hours 2 tabs 2023 Active 2023 03951 04144 0 Every 4 hours as needed By Mouth False Tylenol 325 mg tablet 2 tabs By Mouth Every 4 hours as needed For Fever >100 DO NOT EXCEED 3000 MG APAP/24 Hours 2 tabs 202300 Active 2023 36181 37705 0 Every 4 hours as needed By Mouth False Dulcolax (bisacodyl) 10 mg rectal suppository One Suppository per rectum PRN if Milk of Magnisia ineffective. Give on day 5 of no BM 1 sup 2023 Active 2023 39192 14280 1 Daily as needed Rectal False Fleet Enema 19 gram-7 gram/118 mL Administer per rectum PRN one time if dulcolax suppository not effective. Give on day 6 of no BM 1 202300 Active 2023 51305 65495 6 Daily as needed Rectal False Dextrose 50 % in water (D50W) intravenous solution [generic] Dextrose 50% reyes 20-50 ml (slow push) Intravenous if Glucagon not effective after 15 minutes. CALL 911 for ED Evaluation. 50% reyes 202300 0000 Active 2023 50267 43030 9 Intrav enous False Glucagon (HCl) Emergency Kit 1 mg solution for injection Administer Glucagon 1 mg Intramuscular if 15 minutes after GLucose Gel is administered Glucose remains less than 70 1 mg 2023 Active 2023 83675 23358 2 Intram uscula r False Glucose Gel 40 % oral gel [Dextrose] PRN If resident is unable to swallow (with or without symptoms) and Glucose results less than 70 give GLucose 40% Gel 1 tube orally - Recheck Glucose 15 minutes after administratio n. 1 tube 2023 Active 2023 07275 61864 8 By Mouth False Lorazepam 0.5 mg tablet [generic] 0.5 mg By Mouth Every 8 hours as needed For Anxiety 0.5 mg 2023 Active 2023 39929 31458 0 Every 8 hours as needed By Mouth False Potassium chloride ER 20 mEq tablet,exte nded release [generic] 40 meq By Mouth Once daily For Hypokalemia 40 meq 2023 Active 2023 46502 55801 1 Once daily By Mouth False Colesevelam 625 mg tablet [generic] 1250 mg By Mouth Twice daily For TYPE 2 DIABETES MELLITUS WITHOUT COMPLICATIONS 1250 mg 2023 Active 2023 71098 83125 1 Twice daily By Mouth E11.9 False Pioglitazon e 15 mg tablet [generic] 15 mg By Mouth Once daily For TYPE 2 DIABETES MELLITUS WITHOUT COMPLICATIONS 15 mg 2023 Active 2023 40702 43562 1 Once daily By Mouth E11.9 False Cholecalcif hardeep (vitamin D3) 50 mcg (2,000 unit) tablet [generic] 50 mcg By Mouth Once daily For Supplement 50 mcg 2023 Active 2023 22876 00654 1 Once daily By Mouth False Colchicine 0.6 mg tablet [generic] 0.6 mg By Mouth Twice daily As Needed For Gout 0.6 mg 2023 Active 2023 14915 75961 4 Twice daily By Mouth False Levothyroxi ne 200 mcg tablet [generic] 200 mcg By Mouth Once daily For Hypothyroidis m 200 mcg 202300 Active 2023 59375 90958 0 Once daily By Mouth False Ondansetron 4 mg disintegrat ing tablet [generic] 4 mg By Mouth Every 6 hours as needed For Nausea 4 mg 11/12 Inactiv e 2023 99077 07737 4 Every 6 hours as needed By Mouth False Docusate sodium 100 mg capsule [generic] 100 mg By Mouth Twice daily For Constipation 100 mg 202300 Active 2023 13236 03962 1 Twice daily By Mouth False Oxycodone 5 mg tablet [generic] 5 mg By Mouth Every 6 hours as needed For Pain 5 mg 11/12 Inactiv e 2023 91054 86932 1 Every 6 hours as needed By Mouth False Oxycodone 5 mg tablet [generic] 5 mg By Mouth Every 6 hours as needed For Pain 5 mg 202300 Active 2023 82878 96998 1 Every 6 hours as needed By Mouth False Milk of Magnesia 400 mg/5 mL oral suspension 30 ml By Mouth one time per day as needed if no BM x 3 days For Constipation 30 ml 202300 / Active 2023 06781 62472 2 By Mouth False Ondansetron 4 mg disintegrat ing tablet [generic] 11/12 Inactiv e 2023 29121 81472 4 Ondansetron 4 mg disintegrat ing tablet [generic] 4 mg By Mouth Every 6 hours as needed For Nausea 4 mg 202300 /0000 Active 2023 96187 65623 4 Every 6 hours as needed By Mouth False VITAL SIGNS Date Time Diastolic blood pressure Systolic blood pressure Body height Body weight Temperature SpO2 Blood Sugar Pulse Respirations 34213 5 75.00 mm[Hg] - Sitting 140.00 mm[Hg] - Sitting 65 NI 98.00 Tympanic 95.00 % 102.00 /min 18.00/min 918 16908 9 25 2 75.00 mm[Hg] - Sitting 140.00 mm[Hg] - Sitting 98.00 Tympanic 102.00 /min 18.00/min 02211 918 02608 3 60527 918 51672 1 72.00 mm[Hg] - Sitting 138.00 mm[Hg] - Sitting 98.40 Tympanic 82599 918 63984 4 88.00/ min 18.00/min
--- OUTSIDE RECORDS SUMMARY | 2023-12-14 00:04 | External Medical Summary | Continuity Of Care Document ---
Author Name Unknown Address [address] [place] [address] Organization [facility] [place][note 3] [place] () Care Team Providers Care Clinical Material Handler Name Role Phone DO Parson Amy Primary Care Provider [phone] Allergies Allergy Reaction Start Date End Date [...] 3 0.1 mL 11/13 Inactiv e 2023 99645 13660 0 1 time Intrad ermal False Tubersol 5 tub. unit/0.1 mL intradermal injection solution [Tuberculin PPD] 0.1mL Intradermal 1 time For PPD 2nd Step Give 2nd Step PPD Day 1 and Read results Day 3 (schedule 7 days after 1st READ) 0.1mL 11/13 Inactiv e 2023 97311 89794 0 1 time Intrad ermal False DISCONTINUE as of 11/14/2023: Tubersol 5 tub. unit/0.1 mL intradermal injection solution [Tuberculin PPD] 11/13 Inactiv e 2023 85093 17756 0 Tubersol 5 tub. unit/0.1 mL intradermal injection solution 0.1 mL Intradermal 1 time For PPD Step 1 GIVE on Day 1 and read results Day 3 0.1 mL 11/16 Active 2023 73750 84386 1 1 time Intrad ermal False DISCONTINUE as of 11/14/2023: Tubersol 5 tub. unit/0.1 mL intradermal injection solution [Tuberculin PPD] 11/13 Inactiv e 2023 74458 69233 0 Tubersol 5 tub. unit/0.1 mL intradermal injection solution 0.1mL Intradermal 1 time For PPD 2nd Step Give 2nd Step PPD Day 1 and Read results Day 3 (schedule 7 days after 1st READ) 0.1mL 11/25 Active 2023 47232 21709 1 1 time Intrad ermal False Tylenol 325 mg tablet 2 tabs By Mouth Every 4 hours as needed For Pain DO NOT EXCEED 3000 MG APAP/24 Hours 2 tabs 2023 Active 2023 43720 35294 0 Every 4 hours as needed By Mouth False Tylenol 325 mg tablet 2 tabs By Mouth Every 4 hours as needed For Fever >100 DO NOT EXCEED 3000 MG APAP/24 Hours 2 tabs 202300 Active 2023 73907 34075 0 Every 4 hours as needed By Mouth False Dulcolax (bisacodyl) 10 mg rectal suppository One Suppository per rectum PRN if Milk of Magnisia ineffective. Give on day 5 of no BM 1 sup 2023 Active 2023 02634 96783 1 Daily as needed Rectal False Fleet Enema 19 gram-7 gram/118 mL Administer per rectum PRN one time if dulcolax suppository not effective. Give on day 6 of no BM 1 202300 Active 2023 52008 39799 6 Daily as needed Rectal False Dextrose 50 % in water (D50W) intravenous solution [generic] Dextrose 50% reyes 20-50 ml (slow push) Intravenous if Glucagon not effective after 15 minutes. CALL 911 for ED Evaluation. 50% reyes 202300 0000 Active 2023 66984 45530 9 Intrav enous False Glucagon (HCl) Emergency Kit 1 mg solution for injection Administer Glucagon 1 mg Intramuscular if 15 minutes after GLucose Gel is administered Glucose remains less than 70 1 mg 2023 Active 2023 50135 34852 2 Intram uscula r False Glucose Gel 40 % oral gel [Dextrose] PRN If resident is unable to swallow (with or without symptoms) and Glucose results less than 70 give GLucose 40% Gel 1 tube orally - Recheck Glucose 15 minutes after administratio n. 1 tube 2023 Active 2023 32995 43055 8 By Mouth False Lorazepam 0.5 mg tablet [generic] 0.5 mg By Mouth Every 8 hours as needed For Anxiety 0.5 mg 2023 Active 2023 12637 89242 0 Every 8 hours as needed By Mouth False Potassium chloride ER 20 mEq tablet,exte nded release [generic] 40 meq By Mouth Once daily For Hypokalemia 40 meq 11/13 Inactiv e 2023 78410 89685 1 Once daily By Mouth False Colesevelam 625 mg tablet [generic] 1250 mg By Mouth Twice daily For TYPE 2 DIABETES MELLITUS WITHOUT COMPLICATIONS 1250 mg 2023 Active 2023 52598 38766 1 Twice daily By Mouth E11.9 False Pioglitazon e 15 mg tablet [generic] 15 mg By Mouth Once daily For TYPE 2 DIABETES MELLITUS WITHOUT COMPLICATIONS 15 mg 2023 Active 2023 92416 86529 1 Once daily By Mouth E11.9 False Cholecalcif hardeep (vitamin D3) 50 mcg (2,000 unit) tablet [generic] 50 mcg By Mouth Once daily For Supplement 50 mcg 2023 Active 2023 09649 06746 1 Once daily By Mouth False Colchicine 0.6 mg tablet [generic] 0.6 mg By Mouth Twice daily As Needed For Gout 0.6 mg 2023 Active 2023 01157 55400 4 Twice daily By Mouth False Levothyroxi ne 200 mcg tablet [generic] 200 mcg By Mouth Once daily For Hypothyroidis m 200 mcg 2023 Active 2023 47133 00919 0 Once daily By Mouth False Ondansetron 4 mg disintegrat ing tablet [generic] 4 mg By Mouth Every 6 hours as needed For Nausea 4 mg 11/12 Inactiv e 2023 93963 56342 4 Every 6 hours as needed By Mouth False Docusate sodium 100 mg capsule [generic] 100 mg By Mouth Twice daily For Constipation 100 mg 2023 Active 2023 05923 99804 1 Twice daily By Mouth False Oxycodone 5 mg tablet [generic] 5 mg By Mouth Every 6 hours as needed For Pain 5 mg 11/12 Inactiv e 2023 21158 02559 1 Every 6 hours as needed By Mouth False Oxycodone 5 mg tablet [generic] 5 mg By Mouth Every 6 hours as needed For Pain 5 mg 2023 Active 2023 22062 61505 1 Every 6 hours as needed By Mouth False Milk of Magnesia 400 mg/5 mL oral suspension 30 ml By Mouth one time per day as needed if no BM x 3 days For Constipation 30 ml 2023 Active 2023 84250 69979 2 By Mouth False Ondansetron 4 mg disintegrat ing tablet [generic] 11/12 Inactiv e 2023 85628 83712 4 Ondansetron 4 mg disintegrat ing tablet [generic] 4 mg By Mouth Every 6 hours as needed For Nausea 4 mg 2023 Active 2023 73583 85189 4 Every 6 hours as needed By Mouth False Potassium chloride ER 10 mEq capsule,ext ended release [generic] 40 mEq By Mouth Once daily For hypokalemia 40 mEq 2023 Active 2023 70747 36184 1 Once daily By Mouth False Potassium chloride ER 10 mEq capsule,ext ended release [generic] 4 capsules By Mouth At bedtime For hypokalemia 4 capsule s 11/16 Active 2023 98238 81708 1 At bedtime By Mouth False Problems [...] weight Temperature SpO2 Blood Sugar Pulse Respirations 01510 5 75.00 mm[Hg] - Sitting 140.00 mm[Hg] - Sitting 65 NI 98.00 Tympanic 95.00 % 102.00 /min 18.00/min 8 82318 9 918 76926 2 75.00 mm[Hg] - Sitting 140.00 mm[Hg] - Sitting 98.00 Tympanic 102.00 /min 18.00/min 8 97757 3 8 86445 1 72.00 mm[Hg] - Sitting 138.00 mm[Hg] - Sitting 98.40 Tympanic 8 25780 4 88.00/ min 18.00/min
--- OUTSIDE RECORDS SUMMARY | 2023-12-14 00:04 | External Medical Summary | Continuity Of Care Document ---
Author Name Unknown Address [address] [place] [address] Organization [facility] [place] () Care Team Providers Care Retail Business Analyst Name Role Phone DO Parson Amy Primary Care Provider [phone] Allergies Allergy Reaction Start Date End Date [...] 3 0.1 mL 11/13 Inactiv e 2023 74012 13045 0 1 time Intrad ermal False Tubersol 5 tub. unit/0.1 mL intradermal injection solution [Tuberculin PPD] 0.1mL Intradermal 1 time For PPD 2nd Step Give 2nd Step PPD Day 1 and Read results Day 3 (schedule 7 days after 1st READ) 0.1mL 11/13 Inactiv e 2023 76777 94783 0 1 time Intrad ermal False DISCONTINUE as of 11/14/2023: Tubersol 5 tub. unit/0.1 mL intradermal injection solution [Tuberculin PPD] 11/13 Inactiv e 2023 11506 44090 0 Tubersol 5 tub. unit/0.1 mL intradermal injection solution 0.1 mL Intradermal 1 time For PPD Step 1 GIVE on Day 1 and read results Day 3 0.1 mL 11/16 Active 2023 35060 64295 1 1 time Intrad ermal False DISCONTINUE as of 11/14/2023: Tubersol 5 tub. unit/0.1 mL intradermal injection solution [Tuberculin PPD] 11/13 Inactiv e 2023 02041 28285 0 Tubersol 5 tub. unit/0.1 mL intradermal injection solution 0.1mL Intradermal 1 time For PPD 2nd Step Give 2nd Step PPD Day 1 and Read results Day 3 (schedule 7 days after 1st READ) 0.1mL 11/25 Active 2023 24752 11989 1 1 time Intrad ermal False Tylenol 325 mg tablet 2 tabs By Mouth Every 4 hours as needed For Pain DO NOT EXCEED 3000 MG APAP/24 Hours 2 tabs 2023 Active 2023 23057 69867 0 Every 4 hours as needed By Mouth False Tylenol 325 mg tablet 2 tabs By Mouth Every 4 hours as needed For Fever >100 DO NOT EXCEED 3000 MG APAP/24 Hours 2 tabs 202300 Active 2023 85814 47479 0 Every 4 hours as needed By Mouth False Dulcolax (bisacodyl) 10 mg rectal suppository One Suppository per rectum PRN if Milk of Magnisia ineffective. Give on day 5 of no BM 1 sup 2023 Active 2023 50123 06248 1 Daily as needed Rectal False Fleet Enema 19 gram-7 gram/118 mL Administer per rectum PRN one time if dulcolax suppository not effective. Give on day 6 of no BM 1 202300 Active 2023 88680 63324 6 Daily as needed Rectal False Dextrose 50 % in water (D50W) intravenous solution [generic] Dextrose 50% reyes 20-50 ml (slow push) Intravenous if Glucagon not effective after 15 minutes. CALL 911 for ED Evaluation. 50% reyes 202300 0000 Active 2023 81461 50802 9 Intrav enous False Glucagon (HCl) Emergency Kit 1 mg solution for injection Administer Glucagon 1 mg Intramuscular if 15 minutes after GLucose Gel is administered Glucose remains less than 70 1 mg 2023 Active 2023 52068 01761 2 Intram uscula r False Glucose Gel 40 % oral gel [Dextrose] PRN If resident is unable to swallow (with or without symptoms) and Glucose results less than 70 give GLucose 40% Gel 1 tube orally - Recheck Glucose 15 minutes after administratio n. 1 tube 2023 Active 2023 62441 84669 8 By Mouth False Lorazepam 0.5 mg tablet [generic] 0.5 mg By Mouth Every 8 hours as needed For Anxiety 0.5 mg 2023 Active 2023 49899 02848 0 Every 8 hours as needed By Mouth False Potassium chloride ER 20 mEq tablet,exte nded release [generic] 40 meq By Mouth Once daily For Hypokalemia 40 meq 11/13 Inactiv e 2023 12778 21546 1 Once daily By Mouth False Colesevelam 625 mg tablet [generic] 1250 mg By Mouth Twice daily For TYPE 2 DIABETES MELLITUS WITHOUT COMPLICATIONS 1250 mg 2023 Active 2023 94801 44097 1 Twice daily By Mouth E11.9 False Pioglitazon e 15 mg tablet [generic] 15 mg By Mouth Once daily For TYPE 2 DIABETES MELLITUS WITHOUT COMPLICATIONS 15 mg 2023 Active 2023 13931 74503 1 Once daily By Mouth E11.9 False Cholecalcif hardeep (vitamin D3) 50 mcg (2,000 unit) tablet [generic] 50 mcg By Mouth Once daily For Supplement 50 mcg 2023 Active 2023 47809 28699 1 Once daily By Mouth False Colchicine 0.6 mg tablet [generic] 0.6 mg By Mouth Twice daily As Needed For Gout 0.6 mg 2023 Active 2023 99515 97129 4 Twice daily By Mouth False Levothyroxi ne 200 mcg tablet [generic] 200 mcg By Mouth Once daily For Hypothyroidis m 200 mcg 2023 Active 2023 14336 92726 0 Once daily By Mouth False Ondansetron 4 mg disintegrat ing tablet [generic] 4 mg By Mouth Every 6 hours as needed For Nausea 4 mg 11/12 Inactiv e 2023 49454 71959 4 Every 6 hours as needed By Mouth False Docusate sodium 100 mg capsule [generic] 100 mg By Mouth Twice daily For Constipation 100 mg 2023 Active 2023 52504 06662 1 Twice daily By Mouth False Oxycodone 5 mg tablet [generic] 5 mg By Mouth Every 6 hours as needed For Pain 5 mg 11/12 Inactiv e 2023 14691 87207 1 Every 6 hours as needed By Mouth False Oxycodone 5 mg tablet [generic] 5 mg By Mouth Every 6 hours as needed For Pain 5 mg 2023 Active 2023 35244 89334 1 Every 6 hours as needed By Mouth False Milk of Magnesia 400 mg/5 mL oral suspension 30 ml By Mouth one time per day as needed if no BM x 3 days For Constipation 30 ml 2023 Active 2023 81863 69208 2 By Mouth False Ondansetron 4 mg disintegrat ing tablet [generic] 11/12 Inactiv e 2023 19858 76521 4 Ondansetron 4 mg disintegrat ing tablet [generic] 4 mg By Mouth Every 6 hours as needed For Nausea 4 mg 2023 Active 2023 24563 19390 4 Every 6 hours as needed By Mouth False Potassium chloride ER 10 mEq capsule,ext ended release [generic] 40 mEq By Mouth Once daily For hypokalemia 40 mEq 2023 Active 2023 19349 63634 1 Once daily By Mouth False Potassium chloride ER 10 mEq capsule,ext ended release [generic] 4 capsules By Mouth At bedtime For hypokalemia 4 capsule s 11/16 Active 2023 31147 10098 1 At bedtime By Mouth False Problems [...] weight Temperature SpO2 Blood Sugar Pulse Respirations 83447 5 75.00 mm[Hg] - Sitting 140.00 mm[Hg] - Sitting 65 NI 98.00 Tympanic 95.00 % 102.00 /min 18.00/min 8 01771 9 918 14773 2 75.00 mm[Hg] - Sitting 140.00 mm[Hg] - Sitting 98.00 Tympanic 102.00 /min 18.00/min 8 57135 3 8 44751 1 72.00 mm[Hg] - Sitting 138.00 mm[Hg] - Sitting 98.40 Tympanic 8 33298 4 88.00/ min 18.00/min
--- OUTSIDE RECORDS SUMMARY | 2023-12-14 00:04 | External Medical Summary | Continuity Of Care Document ---
Author Name Unknown Address [address] [place] [address] Organization [facility] [place] () Care Team Providers Care Fraud Analyst Name Role Phone DO Parson Amy Primary Care Provider [phone] Allergies Allergy Reaction Start Date End Date [...] 3 0.1 mL 11/13 Inactiv e 2023 13028 96003 0 1 time Intrad ermal False Tubersol 5 tub. unit/0.1 mL intradermal injection solution [Tuberculin PPD] 0.1mL Intradermal 1 time For PPD 2nd Step Give 2nd Step PPD Day 1 and Read results Day 3 (schedule 7 days after 1st READ) 0.1mL 11/13 Inactiv e 2023 12932 30520 0 1 time Intrad ermal False DISCONTINUE as of 11/14/2023: Tubersol 5 tub. unit/0.1 mL intradermal injection solution [Tuberculin PPD] 11/13 Inactiv e 2023 78206 57925 0 Tubersol 5 tub. unit/0.1 mL intradermal injection solution 0.1 mL Intradermal 1 time For PPD Step 1 GIVE on Day 1 and read results Day 3 0.1 mL 11/16 Active 2023 77962 36075 1 1 time Intrad ermal False DISCONTINUE as of 11/14/2023: Tubersol 5 tub. unit/0.1 mL intradermal injection solution [Tuberculin PPD] 11/13 Inactiv e 2023 22074 99798 0 Tubersol 5 tub. unit/0.1 mL intradermal injection solution 0.1mL Intradermal 1 time For PPD 2nd Step Give 2nd Step PPD Day 1 and Read results Day 3 (schedule 7 days after 1st READ) 0.1mL 11/25 Active 2023 67870 18641 1 1 time Intrad ermal False Tylenol 325 mg tablet 2 tabs By Mouth Every 4 hours as needed For Pain DO NOT EXCEED 3000 MG APAP/24 Hours 2 tabs 2023 Active 2023 67716 47815 0 Every 4 hours as needed By Mouth False Tylenol 325 mg tablet 2 tabs By Mouth Every 4 hours as needed For Fever >100 DO NOT EXCEED 3000 MG APAP/24 Hours 2 tabs 202300 Active 2023 90422 02936 0 Every 4 hours as needed By Mouth False Dulcolax (bisacodyl) 10 mg rectal suppository One Suppository per rectum PRN if Milk of Magnisia ineffective. Give on day 5 of no BM 1 sup 2023 Active 2023 33047 05137 1 Daily as needed Rectal False Fleet Enema 19 gram-7 gram/118 mL Administer per rectum PRN one time if dulcolax suppository not effective. Give on day 6 of no BM 1 202300 Active 2023 25699 60789 6 Daily as needed Rectal False Dextrose 50 % in water (D50W) intravenous solution [generic] Dextrose 50% reyes 20-50 ml (slow push) Intravenous if Glucagon not effective after 15 minutes. CALL 911 for ED Evaluation. 50% reyes 202300 0000 Active 2023 15682 86952 9 Intrav enous False Glucagon (HCl) Emergency Kit 1 mg solution for injection Administer Glucagon 1 mg Intramuscular if 15 minutes after GLucose Gel is administered Glucose remains less than 70 1 mg 2023 Active 2023 55967 24023 2 Intram uscula r False Glucose Gel 40 % oral gel [Dextrose] PRN If resident is unable to swallow (with or without symptoms) and Glucose results less than 70 give GLucose 40% Gel 1 tube orally - Recheck Glucose 15 minutes after administratio n. 1 tube 2023 Active 2023 14886 54916 8 By Mouth False Lorazepam 0.5 mg tablet [generic] 0.5 mg By Mouth Every 8 hours as needed For Anxiety 0.5 mg 2023 Active 2023 66963 34796 0 Every 8 hours as needed By Mouth False Potassium chloride ER 20 mEq tablet,exte nded release [generic] 40 meq By Mouth Once daily For Hypokalemia 40 meq 2023 Active 2023 57894 13756 1 Once daily By Mouth False Colesevelam 625 mg tablet [generic] 1250 mg By Mouth Twice daily For TYPE 2 DIABETES MELLITUS WITHOUT COMPLICATIONS 1250 mg 2023 Active 2023 47394 77512 1 Twice daily By Mouth E11.9 False Pioglitazon e 15 mg tablet [generic] 15 mg By Mouth Once daily For TYPE 2 DIABETES MELLITUS WITHOUT COMPLICATIONS 15 mg 2023 Active 2023 02053 23954 1 Once daily By Mouth E11.9 False Cholecalcif hardeep (vitamin D3) 50 mcg (2,000 unit) tablet [generic] 50 mcg By Mouth Once daily For Supplement 50 mcg 2023 Active 2023 22337 01552 1 Once daily By Mouth False Colchicine 0.6 mg tablet [generic] 0.6 mg By Mouth Twice daily As Needed For Gout 0.6 mg 2023 Active 2023 26059 52576 4 Twice daily By Mouth False Levothyroxi ne 200 mcg tablet [generic] 200 mcg By Mouth Once daily For Hypothyroidis m 200 mcg 202300 Active 2023 71068 09243 0 Once daily By Mouth False Ondansetron 4 mg disintegrat ing tablet [generic] 4 mg By Mouth Every 6 hours as needed For Nausea 4 mg 11/12 Inactiv e 2023 05912 79495 4 Every 6 hours as needed By Mouth False Docusate sodium 100 mg capsule [generic] 100 mg By Mouth Twice daily For Constipation 100 mg 202300 Active 2023 93475 42656 1 Twice daily By Mouth False Oxycodone 5 mg tablet [generic] 5 mg By Mouth Every 6 hours as needed For Pain 5 mg 11/12 Inactiv e 2023 13531 24822 1 Every 6 hours as needed By Mouth False Oxycodone 5 mg tablet [generic] 5 mg By Mouth Every 6 hours as needed For Pain 5 mg 202300 Active 2023 56572 50236 1 Every 6 hours as needed By Mouth False Milk of Magnesia 400 mg/5 mL oral suspension 30 ml By Mouth one time per day as needed if no BM x 3 days For Constipation 30 ml 202300 / Active 2023 47700 35868 2 By Mouth False Ondansetron 4 mg disintegrat ing tablet [generic] 11/12 Inactiv e 2023 23708 12750 4 Ondansetron 4 mg disintegrat ing tablet [generic] 4 mg By Mouth Every 6 hours as needed For Nausea 4 mg 202300 /0000 Active 2023 49234 56836 4 Every 6 hours as needed By Mouth False VITAL SIGNS Date Time Diastolic blood pressure Systolic blood pressure Body height Body weight Temperature SpO2 Blood Sugar Pulse Respirations 91211 5 75.00 mm[Hg] - Sitting 140.00 mm[Hg] - Sitting 65 NI 98.00 Tympanic 95.00 % 102.00 /min 18.00/min 918 52112 9 25 2 75.00 mm[Hg] - Sitting 140.00 mm[Hg] - Sitting 98.00 Tympanic 102.00 /min 18.00/min 48197 918 05348 3 58083 918 37213 1 72.00 mm[Hg] - Sitting 138.00 mm[Hg] - Sitting 98.40 Tympanic 74902 918 07465 4 88.00/ min 18.00/min
--- OUTSIDE RECORDS SUMMARY | 2023-12-14 00:04 | External Medical Summary | Continuity Of Care Document ---
Author Name Unknown Address [address] [place] [address] Organization [facility] [place] () Care Team Providers Care Inpatient Coder Name Role Phone DO Parson Amy Primary Care Provider [phone] Allergies Allergy Reaction Start Date End Date [...] 3 0.1 mL 11/13 Inactiv e 2023 38820 10116 0 1 time Intrad ermal False Tubersol 5 tub. unit/0.1 mL intradermal injection solution [Tuberculin PPD] 0.1mL Intradermal 1 time For PPD 2nd Step Give 2nd Step PPD Day 1 and Read results Day 3 (schedule 7 days after 1st READ) 0.1mL 11/13 Inactiv e 2023 13354 41646 0 1 time Intrad ermal False DISCONTINUE as of 11/14/2023: Tubersol 5 tub. unit/0.1 mL intradermal injection solution [Tuberculin PPD] 11/13 Inactiv e 2023 00477 50947 0 Tubersol 5 tub. unit/0.1 mL intradermal injection solution 0.1 mL Intradermal 1 time For PPD Step 1 GIVE on Day 1 and read results Day 3 0.1 mL 11/16 Active 2023 55986 30193 1 1 time Intrad ermal False DISCONTINUE as of 11/14/2023: Tubersol 5 tub. unit/0.1 mL intradermal injection solution [Tuberculin PPD] 11/13 Inactiv e 2023 82211 96997 0 Tubersol 5 tub. unit/0.1 mL intradermal injection solution 0.1mL Intradermal 1 time For PPD 2nd Step Give 2nd Step PPD Day 1 and Read results Day 3 (schedule 7 days after 1st READ) 0.1mL 11/25 Active 2023 55365 30771 1 1 time Intrad ermal False Tylenol 325 mg tablet 2 tabs By Mouth Every 4 hours as needed For Pain DO NOT EXCEED 3000 MG APAP/24 Hours 2 tabs 2023 Active 2023 10817 82525 0 Every 4 hours as needed By Mouth False Tylenol 325 mg tablet 2 tabs By Mouth Every 4 hours as needed For Fever >100 DO NOT EXCEED 3000 MG APAP/24 Hours 2 tabs 202300 Active 2023 62256 74556 0 Every 4 hours as needed By Mouth False Dulcolax (bisacodyl) 10 mg rectal suppository One Suppository per rectum PRN if Milk of Magnisia ineffective. Give on day 5 of no BM 1 sup 2023 Active 2023 11929 26115 1 Daily as needed Rectal False Fleet Enema 19 gram-7 gram/118 mL Administer per rectum PRN one time if dulcolax suppository not effective. Give on day 6 of no BM 1 202300 Active 2023 28538 21430 6 Daily as needed Rectal False Dextrose 50 % in water (D50W) intravenous solution [generic] Dextrose 50% reyes 20-50 ml (slow push) Intravenous if Glucagon not effective after 15 minutes. CALL 911 for ED Evaluation. 50% reyes 202300 0000 Active 2023 90427 72095 9 Intrav enous False Glucagon (HCl) Emergency Kit 1 mg solution for injection Administer Glucagon 1 mg Intramuscular if 15 minutes after GLucose Gel is administered Glucose remains less than 70 1 mg 2023 Active 2023 68660 53589 2 Intram uscula r False Glucose Gel 40 % oral gel [Dextrose] PRN If resident is unable to swallow (with or without symptoms) and Glucose results less than 70 give GLucose 40% Gel 1 tube orally - Recheck Glucose 15 minutes after administratio n. 1 tube 2023 Active 2023 05110 93258 8 By Mouth False Lorazepam 0.5 mg tablet [generic] 0.5 mg By Mouth Every 8 hours as needed For Anxiety 0.5 mg 2023 Active 2023 47587 24013 0 Every 8 hours as needed By Mouth False Potassium chloride ER 20 mEq tablet,exte nded release [generic] 40 meq By Mouth Once daily For Hypokalemia 40 meq 2023 Active 2023 91120 36193 1 Once daily By Mouth False Colesevelam 625 mg tablet [generic] 1250 mg By Mouth Twice daily For TYPE 2 DIABETES MELLITUS WITHOUT COMPLICATIONS 1250 mg 2023 Active 2023 40202 04178 1 Twice daily By Mouth E11.9 False Pioglitazon e 15 mg tablet [generic] 15 mg By Mouth Once daily For TYPE 2 DIABETES MELLITUS WITHOUT COMPLICATIONS 15 mg 2023 Active 2023 26086 94096 1 Once daily By Mouth E11.9 False Cholecalcif hardeep (vitamin D3) 50 mcg (2,000 unit) tablet [generic] 50 mcg By Mouth Once daily For Supplement 50 mcg 2023 Active 2023 54535 65277 1 Once daily By Mouth False Colchicine 0.6 mg tablet [generic] 0.6 mg By Mouth Twice daily As Needed For Gout 0.6 mg 2023 Active 2023 49674 08261 4 Twice daily By Mouth False Levothyroxi ne 200 mcg tablet [generic] 200 mcg By Mouth Once daily For Hypothyroidis m 200 mcg 202300 Active 2023 43710 85461 0 Once daily By Mouth False Ondansetron 4 mg disintegrat ing tablet [generic] 4 mg By Mouth Every 6 hours as needed For Nausea 4 mg 11/12 Inactiv e 2023 73162 69733 4 Every 6 hours as needed By Mouth False Docusate sodium 100 mg capsule [generic] 100 mg By Mouth Twice daily For Constipation 100 mg 202300 Active 2023 73988 20340 1 Twice daily By Mouth False Oxycodone 5 mg tablet [generic] 5 mg By Mouth Every 6 hours as needed For Pain 5 mg 11/12 Inactiv e 2023 33908 44251 1 Every 6 hours as needed By Mouth False Oxycodone 5 mg tablet [generic] 5 mg By Mouth Every 6 hours as needed For Pain 5 mg 202300 Active 2023 79316 75113 1 Every 6 hours as needed By Mouth False Milk of Magnesia 400 mg/5 mL oral suspension 30 ml By Mouth one time per day as needed if no BM x 3 days For Constipation 30 ml 202300 / Active 2023 02867 52667 2 By Mouth False Ondansetron 4 mg disintegrat ing tablet [generic] 11/12 Inactiv e 2023 78681 85708 4 Ondansetron 4 mg disintegrat ing tablet [generic] 4 mg By Mouth Every 6 hours as needed For Nausea 4 mg 202300 /0000 Active 2023 59696 99761 4 Every 6 hours as needed By Mouth False VITAL SIGNS Date Time Diastolic blood pressure Systolic blood pressure Body height Body weight Temperature SpO2 Blood Sugar Pulse Respirations 58422 5 75.00 mm[Hg] - Sitting 140.00 mm[Hg] - Sitting 65 NI 98.00 Tympanic 95.00 % 102.00 /min 18.00/min 918 14606 9 25 2 75.00 mm[Hg] - Sitting 140.00 mm[Hg] - Sitting 98.00 Tympanic 102.00 /min 18.00/min 32840 918 45149 3 08981 918 72571 1 72.00 mm[Hg] - Sitting 138.00 mm[Hg] - Sitting 98.40 Tympanic 52057 918 27882 4 88.00/ min 18.00/min
--- OUTSIDE RECORDS SUMMARY | 2023-12-14 00:04 | External Medical Summary | Continuity Of Care Document ---
Author Name Unknown Address [address] [place] [address] Organization [facility] () Care Team Providers Care Distance Education Director Name Role Phone DO Parson Amy Primary Care Provider [phone] Allergies Allergy Reaction Start Date End Date [...] 3 0.1 mL 11/13 Inactiv e 2023 58211 10199 0 1 time Intrad ermal False Tubersol 5 tub. unit/0.1 mL intradermal injection solution [Tuberculin PPD] 0.1mL Intradermal 1 time For PPD 2nd Step Give 2nd Step PPD Day 1 and Read results Day 3 (schedule 7 days after 1st READ) 0.1mL 11/13 Inactiv e 2023 91966 98436 0 1 time Intrad ermal False DISCONTINUE as of 11/14/2023: Tubersol 5 tub. unit/0.1 mL intradermal injection solution [Tuberculin PPD] 11/13 Inactiv e 2023 31772 45417 0 Tubersol 5 tub. unit/0.1 mL intradermal injection solution 0.1 mL Intradermal 1 time For PPD Step 1 GIVE on Day 1 and read results Day 3 0.1 mL 11/16 Active 2023 92138 29614 1 1 time Intrad ermal False DISCONTINUE as of 11/14/2023: Tubersol 5 tub. unit/0.1 mL intradermal injection solution [Tuberculin PPD] 11/13 Inactiv e 2023 38867 19070 0 Tubersol 5 tub. unit/0.1 mL intradermal injection solution 0.1mL Intradermal 1 time For PPD 2nd Step Give 2nd Step PPD Day 1 and Read results Day 3 (schedule 7 days after 1st READ) 0.1mL 11/25 Active 2023 30781 60168 1 1 time Intrad ermal False Tylenol 325 mg tablet 2 tabs By Mouth Every 4 hours as needed For Pain DO NOT EXCEED 3000 MG APAP/24 Hours 2 tabs 2023 Active 2023 97440 50434 0 Every 4 hours as needed By Mouth False Tylenol 325 mg tablet 2 tabs By Mouth Every 4 hours as needed For Fever >100 DO NOT EXCEED 3000 MG APAP/24 Hours 2 tabs 202300 Active 2023 06964 24968 0 Every 4 hours as needed By Mouth False Dulcolax (bisacodyl) 10 mg rectal suppository One Suppository per rectum PRN if Milk of Magnisia ineffective. Give on day 5 of no BM 1 sup 2023 Active 2023 11932 38782 1 Daily as needed Rectal False Fleet Enema 19 gram-7 gram/118 mL Administer per rectum PRN one time if dulcolax suppository not effective. Give on day 6 of no BM 1 202300 Active 2023 13764 57043 6 Daily as needed Rectal False Dextrose 50 % in water (D50W) intravenous solution [generic] Dextrose 50% reyes 20-50 ml (slow push) Intravenous if Glucagon not effective after 15 minutes. CALL 911 for ED Evaluation. 50% reyes 202300 0000 Active 2023 07150 79476 9 Intrav enous False Glucagon (HCl) Emergency Kit 1 mg solution for injection Administer Glucagon 1 mg Intramuscular if 15 minutes after GLucose Gel is administered Glucose remains less than 70 1 mg 2023 Active 2023 66002 88786 2 Intram uscula r False Glucose Gel 40 % oral gel [Dextrose] PRN If resident is unable to swallow (with or without symptoms) and Glucose results less than 70 give GLucose 40% Gel 1 tube orally - Recheck Glucose 15 minutes after administratio n. 1 tube 2023 Active 2023 21593 42659 8 By Mouth False Lorazepam 0.5 mg tablet [generic] 0.5 mg By Mouth Every 8 hours as needed For Anxiety 0.5 mg 2023 Active 2023 76560 34079 0 Every 8 hours as needed By Mouth False Potassium chloride ER 20 mEq tablet,exte nded release [generic] 40 meq By Mouth Once daily For Hypokalemia 40 meq 2023 Active 2023 91631 03581 1 Once daily By Mouth False Colesevelam 625 mg tablet [generic] 1250 mg By Mouth Twice daily For TYPE 2 DIABETES MELLITUS WITHOUT COMPLICATIONS 1250 mg 2023 Active 2023 02614 76908 1 Twice daily By Mouth E11.9 False Pioglitazon e 15 mg tablet [generic] 15 mg By Mouth Once daily For TYPE 2 DIABETES MELLITUS WITHOUT COMPLICATIONS 15 mg 2023 Active 2023 33760 04040 1 Once daily By Mouth E11.9 False Cholecalcif hardeep (vitamin D3) 50 mcg (2,000 unit) tablet [generic] 50 mcg By Mouth Once daily For Supplement 50 mcg 2023 Active 2023 67654 42644 1 Once daily By Mouth False Colchicine 0.6 mg tablet [generic] 0.6 mg By Mouth Twice daily As Needed For Gout 0.6 mg 2023 Active 2023 48932 89695 4 Twice daily By Mouth False Levothyroxi ne 200 mcg tablet [generic] 200 mcg By Mouth Once daily For Hypothyroidis m 200 mcg 202300 Active 2023 44548 84689 0 Once daily By Mouth False Ondansetron 4 mg disintegrat ing tablet [generic] 4 mg By Mouth Every 6 hours as needed For Nausea 4 mg 11/12 Inactiv e 2023 86067 94592 4 Every 6 hours as needed By Mouth False Docusate sodium 100 mg capsule [generic] 100 mg By Mouth Twice daily For Constipation 100 mg 202300 Active 2023 13539 32904 1 Twice daily By Mouth False Oxycodone 5 mg tablet [generic] 5 mg By Mouth Every 6 hours as needed For Pain 5 mg 11/12 Inactiv e 2023 84650 41655 1 Every 6 hours as needed By Mouth False Oxycodone 5 mg tablet [generic] 5 mg By Mouth Every 6 hours as needed For Pain 5 mg 202300 Active 2023 96745 87064 1 Every 6 hours as needed By Mouth False Milk of Magnesia 400 mg/5 mL oral suspension 30 ml By Mouth one time per day as needed if no BM x 3 days For Constipation 30 ml 202300 / Active 2023 78192 06026 2 By Mouth False Ondansetron 4 mg disintegrat ing tablet [generic] 11/12 Inactiv e 2023 85485 20173 4 Ondansetron 4 mg disintegrat ing tablet [generic] 4 mg By Mouth Every 6 hours as needed For Nausea 4 mg 202300 /0000 Active 2023 14412 85871 4 Every 6 hours as needed By Mouth False VITAL SIGNS Date Time Diastolic blood pressure Systolic blood pressure Body height Body weight Temperature SpO2 Blood Sugar Pulse Respirations 57422 5 75.00 mm[Hg] - Sitting 140.00 mm[Hg] - Sitting 65 NI 98.00 Tympanic 95.00 % 102.00 /min 18.00/min 918 16411 9 25 2 75.00 mm[Hg] - Sitting 140.00 mm[Hg] - Sitting 98.00 Tympanic 102.00 /min 18.00/min 63232 918 25109 3 83510 918 90800 1 72.00 mm[Hg] - Sitting 138.00 mm[Hg] - Sitting 98.40 Tympanic 75412 918 55837 4 88.00/ min 18.00/min
--- OUTSIDE RECORDS SUMMARY | 2023-12-14 00:04 | External Medical Summary | Continuity Of Care Document ---
Author Name Unknown Address [address] [address] Organization [facility] () Care Team Providers Care Bone Glue Maker Name Role Phone DO Parson Amy Primary Care Provider [phone] Allergies Allergy Reaction Start Date End Date [...] and read results Day 3 0.1 mL 11/15 Active 2023 44034 62306 0 1 time Intrad ermal False Tubersol 5 tub. unit/0.1 mL intradermal injection solution [Tuberculin PPD] 0.1mL Intradermal 1 time For PPD 2nd Step Give 2nd Step PPD Day 1 and Read results Day 3 (schedule 7 days after 1st READ) 0.1mL 11/25 Active 2023 22130 85490 0 1 time Intrad ermal False Tylenol 325 mg tablet 2 tabs By Mouth Every 4 hours as needed For Pain DO NOT EXCEED 3000 MG APAP/24 Hours 2 tabs 2023 Active 2023 95715 10606 0 Every 4 hours as needed By Mouth False Tylenol 325 mg tablet 2 tabs By Mouth Every 4 hours as needed For Fever >100 DO NOT EXCEED 3000 MG APAP/24 Hours 2 tabs 2023 Active 2023 59896 25694 0 Every 4 hours as needed By Mouth False Dulcolax (bisacodyl) 10 mg rectal suppository One Suppository per rectum PRN if Milk of Magnisia ineffective. Give on day 5 of no BM 1 sup 2023 Active 2023 89337 62947 1 Daily as needed Rectal False Fleet Enema 19 gram-7 gram/118 mL Administer per rectum PRN one time if dulcolax suppository not effective. Give on day 6 of no BM 1 2023 Active 2023 07319 60587 6 Daily as needed Rectal False Dextrose 50 % in water (D50W) intravenous solution [generic] Dextrose 50% reyes 20-50 ml (slow push) Intravenous if Glucagon not effective after 15 minutes. CALL 911 for ED Evaluation. 50% reyes 2023 Active 2023 10494 09203 9 Intrav enous False Glucagon (HCl) Emergency Kit 1 mg solution for injection Administer Glucagon 1 mg Intramuscular if 15 minutes after GLucose Gel is administered Glucose remains less than 70 1 mg 2023 Active 2023 96056 72751 2 Intram uscula r False Glucose Gel 40 % oral gel [Dextrose] PRN If resident is unable to swallow (with or without symptoms) and Glucose results less than 70 give GLucose 40% Gel 1 tube orally - Recheck Glucose 15 minutes after administratio n. 1 tube 2023 Active 2023 44905 66533 8 By Mouth False Lorazepam 0.5 mg tablet [generic] 0.5 mg By Mouth Every 8 hours as needed For Anxiety 0.5 mg 2023 Active 2023 11670 07552 0 Every 8 hours as needed By Mouth False Potassium chloride ER 20 mEq tablet,exte nded release [generic] 40 meq By Mouth Once daily For Hypokalemia 40 meq 2023 Active 2023 79683 79887 1 Once daily By Mouth False Colesevelam 625 mg tablet [generic] 1250 mg By Mouth Twice daily For TYPE 2 DIABETES MELLITUS WITHOUT COMPLICATIONS 1250 mg 2023 Active 2023 54717 42129 1 Twice daily By Mouth E11.9 False Pioglitazon e 15 mg tablet [generic] 15 mg By Mouth Once daily For TYPE 2 DIABETES MELLITUS WITHOUT COMPLICATIONS 15 mg 2023 Active 2023 54045 36387 1 Once daily By Mouth E11.9 False Cholecalcif hardeep (vitamin D3) 50 mcg (2,000 unit) tablet [generic] 50 mcg By Mouth Once daily For Supplement 50 mcg 2023 Active 2023 73637 86026 1 Once daily By Mouth False Colchicine 0.6 mg tablet [generic] 0.6 mg By Mouth Twice daily As Needed For Gout 0.6 mg 2023 Active 2023 11809 89871 4 Twice daily By Mouth False Levothyroxi ne 200 mcg tablet [generic] 200 mcg By Mouth Once daily For Hypothyroidis m 200 mcg 2023 Active 2023 23451 18175 0 Once daily By Mouth False Ondansetron 4 mg disintegrat ing tablet [generic] 4 mg By Mouth Every 6 hours as needed For Nausea 4 mg 11/12 Inactiv e 2023 08143 35884 4 Every 6 hours as needed By Mouth False Docusate sodium 100 mg capsule [generic] 100 mg By Mouth Twice daily For Constipation 100 mg 2023 Active 2023 06256 61671 1 Twice daily By Mouth False Oxycodone 5 mg tablet [generic] 5 mg By Mouth Every 6 hours as needed For Pain 5 mg 11/12 Inactiv e 2023 16181 62263 1 Every 6 hours as needed By Mouth False Oxycodone 5 mg tablet [generic] 5 mg By Mouth Every 6 hours as needed For Pain 5 mg 2023 Active 2023 69184 34091 1 Every 6 hours as needed By Mouth False Milk of Magnesia 400 mg/5 mL oral suspension 30 ml By Mouth one time per day as needed if no BM x 3 days For Constipation 30 ml 2023 00/00 /0000 Active 2023 28082 95599 2 By Mouth False Ondansetron 4 mg disintegrat ing tablet [generic] 11/12 Inactiv e 2023 94760 83415 4 Ondansetron 4 mg disintegrat ing tablet [generic] 4 mg By Mouth Every 6 hours as needed For Nausea 4 mg 2023 0000 /0000 Active 2023 96287 39477 4 Every 6 hours as needed By Mouth False VITAL SIGNS Date Time Diastolic blood pressure Systolic blood pressure Body height Body weight Temperature SpO2 Blood Sugar Pulse Respirations 918 10336 5 75.00 mm[Hg] - Sitting 140.00 mm[Hg] - Sitting 65 NI 98.00 Tympanic 95.00 % 102.00 /min 18.00/min 918 43839 9 918 73379 2 75.00 mm[Hg] - Sitting 140.00 mm[Hg] - Sitting 98.00 Tympanic 102.00 /min 18.00/min
--- OUTSIDE RECORDS SUMMARY | 2023-12-14 00:04 | External Medical Summary | Continuity Of Care Document ---
Author Name Unknown Address [address] [place] [address] Organization [facility] () Care Team Providers Care Nuisance Wildlife Specialist Name Role Phone DO Parson Amy Primary Care Provider [phone] Allergies Allergy Reaction Start Date End Date [...] 3 0.1 mL 11/13 Inactiv e 2023 70175 41209 0 1 time Intrad ermal False Tubersol 5 tub. unit/0.1 mL intradermal injection solution [Tuberculin PPD] 0.1mL Intradermal 1 time For PPD 2nd Step Give 2nd Step PPD Day 1 and Read results Day 3 (schedule 7 days after 1st READ) 0.1mL 11/13 Inactiv e 2023 45734 97292 0 1 time Intrad ermal False DISCONTINUE as of 11/14/2023: Tubersol 5 tub. unit/0.1 mL intradermal injection solution [Tuberculin PPD] 11/13 Inactiv e 2023 69255 55449 0 Tubersol 5 tub. unit/0.1 mL intradermal injection solution 0.1 mL Intradermal 1 time For PPD Step 1 GIVE on Day 1 and read results Day 3 0.1 mL 11/16 Active 2023 63793 61313 1 1 time Intrad ermal False DISCONTINUE as of 11/14/2023: Tubersol 5 tub. unit/0.1 mL intradermal injection solution [Tuberculin PPD] 11/13 Inactiv e 2023 96621 95267 0 Tubersol 5 tub. unit/0.1 mL intradermal injection solution 0.1mL Intradermal 1 time For PPD 2nd Step Give 2nd Step PPD Day 1 and Read results Day 3 (schedule 7 days after 1st READ) 0.1mL 11/25 Active 2023 84928 55280 1 1 time Intrad ermal False Tylenol 325 mg tablet 2 tabs By Mouth Every 4 hours as needed For Pain DO NOT EXCEED 3000 MG APAP/24 Hours 2 tabs 2023 Active 2023 43884 66060 0 Every 4 hours as needed By Mouth False Tylenol 325 mg tablet 2 tabs By Mouth Every 4 hours as needed For Fever >100 DO NOT EXCEED 3000 MG APAP/24 Hours 2 tabs 202300 Active 2023 06751 74069 0 Every 4 hours as needed By Mouth False Dulcolax (bisacodyl) 10 mg rectal suppository One Suppository per rectum PRN if Milk of Magnisia ineffective. Give on day 5 of no BM 1 sup 2023 Active 2023 28254 30408 1 Daily as needed Rectal False Fleet Enema 19 gram-7 gram/118 mL Administer per rectum PRN one time if dulcolax suppository not effective. Give on day 6 of no BM 1 202300 Active 2023 91650 63858 6 Daily as needed Rectal False Dextrose 50 % in water (D50W) intravenous solution [generic] Dextrose 50% reyes 20-50 ml (slow push) Intravenous if Glucagon not effective after 15 minutes. CALL 911 for ED Evaluation. 50% reyes 202300 0000 Active 2023 29653 89766 9 Intrav enous False Glucagon (HCl) Emergency Kit 1 mg solution for injection Administer Glucagon 1 mg Intramuscular if 15 minutes after GLucose Gel is administered Glucose remains less than 70 1 mg 2023 Active 2023 48481 74509 2 Intram uscula r False Glucose Gel 40 % oral gel [Dextrose] PRN If resident is unable to swallow (with or without symptoms) and Glucose results less than 70 give GLucose 40% Gel 1 tube orally - Recheck Glucose 15 minutes after administratio n. 1 tube 2023 Active 2023 27902 04792 8 By Mouth False Lorazepam 0.5 mg tablet [generic] 0.5 mg By Mouth Every 8 hours as needed For Anxiety 0.5 mg 2023 Active 2023 41564 16586 0 Every 8 hours as needed By Mouth False Potassium chloride ER 20 mEq tablet,exte nded release [generic] 40 meq By Mouth Once daily For Hypokalemia 40 meq 2023 Active 2023 91250 78463 1 Once daily By Mouth False Colesevelam 625 mg tablet [generic] 1250 mg By Mouth Twice daily For TYPE 2 DIABETES MELLITUS WITHOUT COMPLICATIONS 1250 mg 2023 Active 2023 51283 42208 1 Twice daily By Mouth E11.9 False Pioglitazon e 15 mg tablet [generic] 15 mg By Mouth Once daily For TYPE 2 DIABETES MELLITUS WITHOUT COMPLICATIONS 15 mg 2023 Active 2023 09440 01951 1 Once daily By Mouth E11.9 False Cholecalcif hardeep (vitamin D3) 50 mcg (2,000 unit) tablet [generic] 50 mcg By Mouth Once daily For Supplement 50 mcg 2023 Active 2023 98811 96894 1 Once daily By Mouth False Colchicine 0.6 mg tablet [generic] 0.6 mg By Mouth Twice daily As Needed For Gout 0.6 mg 2023 Active 2023 10167 91261 4 Twice daily By Mouth False Levothyroxi ne 200 mcg tablet [generic] 200 mcg By Mouth Once daily For Hypothyroidis m 200 mcg 202300 Active 2023 88562 02244 0 Once daily By Mouth False Ondansetron 4 mg disintegrat ing tablet [generic] 4 mg By Mouth Every 6 hours as needed For Nausea 4 mg 11/12 Inactiv e 2023 77514 28047 4 Every 6 hours as needed By Mouth False Docusate sodium 100 mg capsule [generic] 100 mg By Mouth Twice daily For Constipation 100 mg 202300 Active 2023 81629 03009 1 Twice daily By Mouth False Oxycodone 5 mg tablet [generic] 5 mg By Mouth Every 6 hours as needed For Pain 5 mg 11/12 Inactiv e 2023 93364 80907 1 Every 6 hours as needed By Mouth False Oxycodone 5 mg tablet [generic] 5 mg By Mouth Every 6 hours as needed For Pain 5 mg 202300 Active 2023 84322 81687 1 Every 6 hours as needed By Mouth False Milk of Magnesia 400 mg/5 mL oral suspension 30 ml By Mouth one time per day as needed if no BM x 3 days For Constipation 30 ml 202300 / Active 2023 95154 96286 2 By Mouth False Ondansetron 4 mg disintegrat ing tablet [generic] 11/12 Inactiv e 2023 90507 49418 4 Ondansetron 4 mg disintegrat ing tablet [generic] 4 mg By Mouth Every 6 hours as needed For Nausea 4 mg 202300 /0000 Active 2023 50294 24761 4 Every 6 hours as needed By Mouth False VITAL SIGNS Date Time Diastolic blood pressure Systolic blood pressure Body height Body weight Temperature SpO2 Blood Sugar Pulse Respirations 54957 5 75.00 mm[Hg] - Sitting 140.00 mm[Hg] - Sitting 65 NI 98.00 Tympanic 95.00 % 102.00 /min 18.00/min 918 97594 9 25 2 75.00 mm[Hg] - Sitting 140.00 mm[Hg] - Sitting 98.00 Tympanic 102.00 /min 18.00/min 59493 918 64713 3 28857 918 84089 1 72.00 mm[Hg] - Sitting 138.00 mm[Hg] - Sitting 98.40 Tympanic 33848 918 69195 4 88.00/ min 18.00/min
--- OUTSIDE RECORDS SUMMARY | 2023-12-14 00:04 | External Medical Summary | Continuity Of Care Document ---
Author Name Unknown Address [address] [place] [address] Organization [facility] () Care Team Providers Care Media Production Support Manager Name Role Phone DO Parson Amy Primary Care Provider [phone] Allergies Allergy Reaction Start Date End Date [...] 3 0.1 mL 11/13 Inactiv e 2023 85104 28328 0 1 time Intrad ermal False Tubersol 5 tub. unit/0.1 mL intradermal injection solution [Tuberculin PPD] 0.1mL Intradermal 1 time For PPD 2nd Step Give 2nd Step PPD Day 1 and Read results Day 3 (schedule 7 days after 1st READ) 0.1mL 11/13 Inactiv e 2023 06198 88174 0 1 time Intrad ermal False DISCONTINUE as of 11/14/2023: Tubersol 5 tub. unit/0.1 mL intradermal injection solution [Tuberculin PPD] 11/13 Inactiv e 2023 18469 17324 0 Tubersol 5 tub. unit/0.1 mL intradermal injection solution 0.1 mL Intradermal 1 time For PPD Step 1 GIVE on Day 1 and read results Day 3 0.1 mL 11/16 Active 2023 49289 59786 1 1 time Intrad ermal False DISCONTINUE as of 11/14/2023: Tubersol 5 tub. unit/0.1 mL intradermal injection solution [Tuberculin PPD] 11/13 Inactiv e 2023 20388 22765 0 Tubersol 5 tub. unit/0.1 mL intradermal injection solution 0.1mL Intradermal 1 time For PPD 2nd Step Give 2nd Step PPD Day 1 and Read results Day 3 (schedule 7 days after 1st READ) 0.1mL 11/25 Active 2023 55486 15376 1 1 time Intrad ermal False Tylenol 325 mg tablet 2 tabs By Mouth Every 4 hours as needed For Pain DO NOT EXCEED 3000 MG APAP/24 Hours 2 tabs 2023 Active 2023 90031 77320 0 Every 4 hours as needed By Mouth False Tylenol 325 mg tablet 2 tabs By Mouth Every 4 hours as needed For Fever >100 DO NOT EXCEED 3000 MG APAP/24 Hours 2 tabs 202300 Active 2023 57209 26617 0 Every 4 hours as needed By Mouth False Dulcolax (bisacodyl) 10 mg rectal suppository One Suppository per rectum PRN if Milk of Magnisia ineffective. Give on day 5 of no BM 1 sup 2023 Active 2023 07657 01962 1 Daily as needed Rectal False Fleet Enema 19 gram-7 gram/118 mL Administer per rectum PRN one time if dulcolax suppository not effective. Give on day 6 of no BM 1 202300 Active 2023 59226 14399 6 Daily as needed Rectal False Dextrose 50 % in water (D50W) intravenous solution [generic] Dextrose 50% reyes 20-50 ml (slow push) Intravenous if Glucagon not effective after 15 minutes. CALL 911 for ED Evaluation. 50% reyes 202300 0000 Active 2023 13618 21949 9 Intrav enous False Glucagon (HCl) Emergency Kit 1 mg solution for injection Administer Glucagon 1 mg Intramuscular if 15 minutes after GLucose Gel is administered Glucose remains less than 70 1 mg 2023 Active 2023 95041 13419 2 Intram uscula r False Glucose Gel 40 % oral gel [Dextrose] PRN If resident is unable to swallow (with or without symptoms) and Glucose results less than 70 give GLucose 40% Gel 1 tube orally - Recheck Glucose 15 minutes after administratio n. 1 tube 2023 Active 2023 56552 55564 8 By Mouth False Lorazepam 0.5 mg tablet [generic] 0.5 mg By Mouth Every 8 hours as needed For Anxiety 0.5 mg 2023 Active 2023 10418 14725 0 Every 8 hours as needed By Mouth False Potassium chloride ER 20 mEq tablet,exte nded release [generic] 40 meq By Mouth Once daily For Hypokalemia 40 meq 2023 Active 2023 18139 05957 1 Once daily By Mouth False Colesevelam 625 mg tablet [generic] 1250 mg By Mouth Twice daily For TYPE 2 DIABETES MELLITUS WITHOUT COMPLICATIONS 1250 mg 2023 Active 2023 04620 64079 1 Twice daily By Mouth E11.9 False Pioglitazon e 15 mg tablet [generic] 15 mg By Mouth Once daily For TYPE 2 DIABETES MELLITUS WITHOUT COMPLICATIONS 15 mg 2023 Active 2023 34648 77808 1 Once daily By Mouth E11.9 False Cholecalcif hardeep (vitamin D3) 50 mcg (2,000 unit) tablet [generic] 50 mcg By Mouth Once daily For Supplement 50 mcg 2023 Active 2023 39154 72474 1 Once daily By Mouth False Colchicine 0.6 mg tablet [generic] 0.6 mg By Mouth Twice daily As Needed For Gout 0.6 mg 2023 Active 2023 21708 60447 4 Twice daily By Mouth False Levothyroxi ne 200 mcg tablet [generic] 200 mcg By Mouth Once daily For Hypothyroidis m 200 mcg 202300 Active 2023 37223 75912 0 Once daily By Mouth False Ondansetron 4 mg disintegrat ing tablet [generic] 4 mg By Mouth Every 6 hours as needed For Nausea 4 mg 11/12 Inactiv e 2023 23803 68108 4 Every 6 hours as needed By Mouth False Docusate sodium 100 mg capsule [generic] 100 mg By Mouth Twice daily For Constipation 100 mg 202300 Active 2023 13584 33205 1 Twice daily By Mouth False Oxycodone 5 mg tablet [generic] 5 mg By Mouth Every 6 hours as needed For Pain 5 mg 11/12 Inactiv e 2023 32076 28109 1 Every 6 hours as needed By Mouth False Oxycodone 5 mg tablet [generic] 5 mg By Mouth Every 6 hours as needed For Pain 5 mg 202300 Active 2023 89325 64364 1 Every 6 hours as needed By Mouth False Milk of Magnesia 400 mg/5 mL oral suspension 30 ml By Mouth one time per day as needed if no BM x 3 days For Constipation 30 ml 202300 / Active 2023 96499 86082 2 By Mouth False Ondansetron 4 mg disintegrat ing tablet [generic] 11/12 Inactiv e 2023 51354 18779 4 Ondansetron 4 mg disintegrat ing tablet [generic] 4 mg By Mouth Every 6 hours as needed For Nausea 4 mg 202300 /0000 Active 2023 79900 79877 4 Every 6 hours as needed By Mouth False VITAL SIGNS Date Time Diastolic blood pressure Systolic blood pressure Body height Body weight Temperature SpO2 Blood Sugar Pulse Respirations 30237 5 75.00 mm[Hg] - Sitting 140.00 mm[Hg] - Sitting 65 NI 98.00 Tympanic 95.00 % 102.00 /min 18.00/min 918 01968 9 25 2 75.00 mm[Hg] - Sitting 140.00 mm[Hg] - Sitting 98.00 Tympanic 102.00 /min 18.00/min 33160 918 79838 3 46595 918 85494 1 72.00 mm[Hg] - Sitting 138.00 mm[Hg] - Sitting 98.40 Tympanic 37698 918 45067 4 88.00/ min 18.00/min
--- OUTSIDE RECORDS SUMMARY | 2023-12-14 00:04 | External Medical Summary | Continuity Of Care Document ---
Author Name Unknown Address [address] [place] [address] Organization [facility] () Care Team Providers Care 911 Operator Name Role Phone DO Parson Amy Primary Care Provider [phone] Allergies Allergy Reaction Start Date End Date [...] 3 0.1 mL 11/13 Inactiv e 2023 45807 63357 0 1 time Intrad ermal False Tubersol 5 tub. unit/0.1 mL intradermal injection solution [Tuberculin PPD] 0.1mL Intradermal 1 time For PPD 2nd Step Give 2nd Step PPD Day 1 and Read results Day 3 (schedule 7 days after 1st READ) 0.1mL 11/25 Active 2023 17372 68998 0 1 time Intrad ermal False DISCONTINUE as of 11/14/2023: Tubersol 5 tub. unit/0.1 mL intradermal injection solution [Tuberculin PPD] 11/13 Inactiv e 2023 53833 57325 0 Tubersol 5 tub. unit/0.1 mL intradermal injection solution 0.1 mL Intradermal 1 time For PPD Step 1 GIVE on Day 1 and read results Day 3 0.1 mL 11/16 Active 2023 67190 70852 1 1 time Intrad ermal False Tylenol 325 mg tablet 2 tabs By Mouth Every 4 hours as needed For Pain DO NOT EXCEED 3000 MG APAP/24 Hours 2 tabs 2023 Active 2023 71280 59412 0 Every 4 hours as needed By Mouth False Tylenol 325 mg tablet 2 tabs By Mouth Every 4 hours as needed For Fever >100 DO NOT EXCEED 3000 MG APAP/24 Hours 2 tabs 2023 Active 2023 92718 54663 0 Every 4 hours as needed By Mouth False Dulcolax (bisacodyl) 10 mg rectal suppository One Suppository per rectum PRN if Milk of Magnisia ineffective. Give on day 5 of no BM 1 sup 2023 Active 2023 84769 20353 1 Daily as needed Rectal False Fleet Enema 19 gram-7 gram/118 mL Administer per rectum PRN one time if dulcolax suppository not effective. Give on day 6 of no BM 1 2023 Active 2023 06487 08197 6 Daily as needed Rectal False Dextrose 50 % in water (D50W) intravenous solution [generic] Dextrose 50% reyes 20-50 ml (slow push) Intravenous if Glucagon not effective after 15 minutes. CALL 911 for ED Evaluation. 50% reyes 2023 Active 2023 68445 96740 9 Intrav enous False Glucagon (HCl) Emergency Kit 1 mg solution for injection Administer Glucagon 1 mg Intramuscular if 15 minutes after GLucose Gel is administered Glucose remains less than 70 1 mg 2023 Active 2023 54170 99524 2 Intram uscula r False Glucose Gel 40 % oral gel [Dextrose] PRN If resident is unable to swallow (with or without symptoms) and Glucose results less than 70 give GLucose 40% Gel 1 tube orally - Recheck Glucose 15 minutes after administratio n. 1 tube 2023 Active 2023 37055 12096 8 By Mouth False Lorazepam 0.5 mg tablet [generic] 0.5 mg By Mouth Every 8 hours as needed For Anxiety 0.5 mg 2023 Active 2023 03851 78856 0 Every 8 hours as needed By Mouth False Potassium chloride ER 20 mEq tablet,exte nded release [generic] 40 meq By Mouth Once daily For Hypokalemia 40 meq 2023 Active 2023 34740 91578 1 Once daily By Mouth False Colesevelam 625 mg tablet [generic] 1250 mg By Mouth Twice daily For TYPE 2 DIABETES MELLITUS WITHOUT COMPLICATIONS 1250 mg 2023 Active 2023 95290 66823 1 Twice daily By Mouth E11.9 False Pioglitazon e 15 mg tablet [generic] 15 mg By Mouth Once daily For TYPE 2 DIABETES MELLITUS WITHOUT COMPLICATIONS 15 mg 2023 Active 2023 71035 20068 1 Once daily By Mouth E11.9 False Cholecalcif hardeep (vitamin D3) 50 mcg (2,000 unit) tablet [generic] 50 mcg By Mouth Once daily For Supplement 50 mcg 2023 Active 2023 48613 70689 1 Once daily By Mouth False Colchicine 0.6 mg tablet [generic] 0.6 mg By Mouth Twice daily As Needed For Gout 0.6 mg 2023 Active 2023 78981 20689 4 Twice daily By Mouth False Levothyroxi ne 200 mcg tablet [generic] 200 mcg By Mouth Once daily For Hypothyroidis m 200 mcg 2023 Active 2023 60515 99746 0 Once daily By Mouth False Ondansetron 4 mg disintegrat ing tablet [generic] 4 mg By Mouth Every 6 hours as needed For Nausea 4 mg 11/12 Inactiv e 2023 21718 55865 4 Every 6 hours as needed By Mouth False Docusate sodium 100 mg capsule [generic] 100 mg By Mouth Twice daily For Constipation 100 mg 2023 Active 2023 42677 21731 1 Twice daily By Mouth False Oxycodone 5 mg tablet [generic] 5 mg By Mouth Every 6 hours as needed For Pain 5 mg 11/12 Inactiv e 2023 76353 01743 1 Every 6 hours as needed By Mouth False Oxycodone 5 mg tablet [generic] 5 mg By Mouth Every 6 hours as needed For Pain 5 mg 2023 00/00 /0000 Active 2023 64443 68570 1 Every 6 hours as needed By Mouth False Milk of Magnesia 400 mg/5 mL oral suspension 30 ml By Mouth one time per day as needed if no BM x 3 days For Constipation 30 ml 2023 00/00 /0000 Active 2023 08847 91653 2 By Mouth False Ondansetron 4 mg disintegrat ing tablet [generic] 11/12 Inactiv e 2023 51273 37957 4 Ondansetron 4 mg disintegrat ing tablet [generic] 4 mg By Mouth Every 6 hours as needed For Nausea 4 mg 2023 00/00 /0000 Active 2023 51527 60123 4 Every 6 hours as needed By Mouth False VITAL SIGNS Date Time Diastolic blood pressure Systolic blood pressure Body height Body weight Temperature SpO2 Blood Sugar Pulse Respirations 94158 918 98169 5 75.00 mm[Hg] - Sitting 140.00 mm[Hg] - Sitting 65 NI 98.00 Tympanic 95.00 % 102.00 /min 18.00/min 68753 918 99169 9 06009 918 84679 2 75.00 mm[Hg] - Sitting 140.00 mm[Hg] - Sitting 98.00 Tympanic 102.00 /min 18.00/min 63069 918 71773 3 18996 918 36687 1 72.00 mm[Hg] - Sitting 138.00 mm[Hg] - Sitting 98.40 Tympanic 02985 918 74345 4 88.00/ min 18.00/min
--- OUTSIDE RECORDS SUMMARY | 2023-12-14 00:04 | External Medical Summary | Continuity Of Care Document ---
Author Name Unknown Address [address] [place] [address] Organization [facility] [place] () Care Team Providers Care Athletic Gear Custodian Name Role Phone DO Parson Amy Primary Care Provider [phone] Allergies Allergy Reaction Start Date End Date [...] 3 0.1 mL 11/13 Inactiv e 2023 48964 05601 0 1 time Intrad ermal False Tubersol 5 tub. unit/0.1 mL intradermal injection solution [Tuberculin PPD] 0.1mL Intradermal 1 time For PPD 2nd Step Give 2nd Step PPD Day 1 and Read results Day 3 (schedule 7 days after 1st READ) 0.1mL 11/13 Inactiv e 2023 09255 60541 0 1 time Intrad ermal False DISCONTINUE as of 11/14/2023: Tubersol 5 tub. unit/0.1 mL intradermal injection solution [Tuberculin PPD] 11/13 Inactiv e 2023 69296 62227 0 Tubersol 5 tub. unit/0.1 mL intradermal injection solution 0.1 mL Intradermal 1 time For PPD Step 1 GIVE on Day 1 and read results Day 3 0.1 mL 11/16 Active 2023 13558 85895 1 1 time Intrad ermal False DISCONTINUE as of 11/14/2023: Tubersol 5 tub. unit/0.1 mL intradermal injection solution [Tuberculin PPD] 11/13 Inactiv e 2023 64888 95182 0 Tubersol 5 tub. unit/0.1 mL intradermal injection solution 0.1mL Intradermal 1 time For PPD 2nd Step Give 2nd Step PPD Day 1 and Read results Day 3 (schedule 7 days after 1st READ) 0.1mL 11/25 Active 2023 03136 04806 1 1 time Intrad ermal False Tylenol 325 mg tablet 2 tabs By Mouth Every 4 hours as needed For Pain DO NOT EXCEED 3000 MG APAP/24 Hours 2 tabs 2023 Active 2023 11838 15717 0 Every 4 hours as needed By Mouth False Tylenol 325 mg tablet 2 tabs By Mouth Every 4 hours as needed For Fever >100 DO NOT EXCEED 3000 MG APAP/24 Hours 2 tabs 202300 Active 2023 42879 17332 0 Every 4 hours as needed By Mouth False Dulcolax (bisacodyl) 10 mg rectal suppository One Suppository per rectum PRN if Milk of Magnisia ineffective. Give on day 5 of no BM 1 sup 2023 Active 2023 73196 97456 1 Daily as needed Rectal False Fleet Enema 19 gram-7 gram/118 mL Administer per rectum PRN one time if dulcolax suppository not effective. Give on day 6 of no BM 1 202300 Active 2023 94221 57991 6 Daily as needed Rectal False Dextrose 50 % in water (D50W) intravenous solution [generic] Dextrose 50% reyes 20-50 ml (slow push) Intravenous if Glucagon not effective after 15 minutes. CALL 911 for ED Evaluation. 50% reyes 202300 0000 Active 2023 55458 72142 9 Intrav enous False Glucagon (HCl) Emergency Kit 1 mg solution for injection Administer Glucagon 1 mg Intramuscular if 15 minutes after GLucose Gel is administered Glucose remains less than 70 1 mg 2023 Active 2023 34671 87191 2 Intram uscula r False Glucose Gel 40 % oral gel [Dextrose] PRN If resident is unable to swallow (with or without symptoms) and Glucose results less than 70 give GLucose 40% Gel 1 tube orally - Recheck Glucose 15 minutes after administratio n. 1 tube 2023 Active 2023 95081 75366 8 By Mouth False Lorazepam 0.5 mg tablet [generic] 0.5 mg By Mouth Every 8 hours as needed For Anxiety 0.5 mg 2023 Active 2023 39468 25600 0 Every 8 hours as needed By Mouth False Potassium chloride ER 20 mEq tablet,exte nded release [generic] 40 meq By Mouth Once daily For Hypokalemia 40 meq 2023 Active 2023 46331 84271 1 Once daily By Mouth False Colesevelam 625 mg tablet [generic] 1250 mg By Mouth Twice daily For TYPE 2 DIABETES MELLITUS WITHOUT COMPLICATIONS 1250 mg 2023 Active 2023 32887 21229 1 Twice daily By Mouth E11.9 False Pioglitazon e 15 mg tablet [generic] 15 mg By Mouth Once daily For TYPE 2 DIABETES MELLITUS WITHOUT COMPLICATIONS 15 mg 2023 Active 2023 24886 61078 1 Once daily By Mouth E11.9 False Cholecalcif hardeep (vitamin D3) 50 mcg (2,000 unit) tablet [generic] 50 mcg By Mouth Once daily For Supplement 50 mcg 2023 Active 2023 76232 52891 1 Once daily By Mouth False Colchicine 0.6 mg tablet [generic] 0.6 mg By Mouth Twice daily As Needed For Gout 0.6 mg 2023 Active 2023 30116 29620 4 Twice daily By Mouth False Levothyroxi ne 200 mcg tablet [generic] 200 mcg By Mouth Once daily For Hypothyroidis m 200 mcg 202300 Active 2023 48022 10403 0 Once daily By Mouth False Ondansetron 4 mg disintegrat ing tablet [generic] 4 mg By Mouth Every 6 hours as needed For Nausea 4 mg 11/12 Inactiv e 2023 47604 82004 4 Every 6 hours as needed By Mouth False Docusate sodium 100 mg capsule [generic] 100 mg By Mouth Twice daily For Constipation 100 mg 202300 Active 2023 34901 46953 1 Twice daily By Mouth False Oxycodone 5 mg tablet [generic] 5 mg By Mouth Every 6 hours as needed For Pain 5 mg 11/12 Inactiv e 2023 23971 03425 1 Every 6 hours as needed By Mouth False Oxycodone 5 mg tablet [generic] 5 mg By Mouth Every 6 hours as needed For Pain 5 mg 202300 Active 2023 73906 29109 1 Every 6 hours as needed By Mouth False Milk of Magnesia 400 mg/5 mL oral suspension 30 ml By Mouth one time per day as needed if no BM x 3 days For Constipation 30 ml 202300 / Active 2023 19907 53232 2 By Mouth False Ondansetron 4 mg disintegrat ing tablet [generic] 11/12 Inactiv e 2023 04802 25357 4 Ondansetron 4 mg disintegrat ing tablet [generic] 4 mg By Mouth Every 6 hours as needed For Nausea 4 mg 202300 /0000 Active 2023 08306 44146 4 Every 6 hours as needed By Mouth False VITAL SIGNS Date Time Diastolic blood pressure Systolic blood pressure Body height Body weight Temperature SpO2 Blood Sugar Pulse Respirations 45722 5 75.00 mm[Hg] - Sitting 140.00 mm[Hg] - Sitting 65 NI 98.00 Tympanic 95.00 % 102.00 /min 18.00/min 918 96365 9 25 2 75.00 mm[Hg] - Sitting 140.00 mm[Hg] - Sitting 98.00 Tympanic 102.00 /min 18.00/min 40933 918 46564 3 09827 918 17017 1 72.00 mm[Hg] - Sitting 138.00 mm[Hg] - Sitting 98.40 Tympanic 96028 918 74138 4 88.00/ min 18.00/min
--- OUTSIDE RECORDS SUMMARY | 2023-12-14 00:04 | External Medical Summary | Continuity Of Care Document ---
Author Name Unknown Address [address] [place] [address] Organization [facility] [place] () Care Team Providers Care Doughmaker Name Role Phone DO Parson Amy Primary Care Provider [phone] Allergies Allergy Reaction Start Date End Date [...] 3 0.1 mL 11/13 Inactiv e 2023 64204 87316 0 1 time Intrad ermal False Tubersol 5 tub. unit/0.1 mL intradermal injection solution [Tuberculin PPD] 0.1mL Intradermal 1 time For PPD 2nd Step Give 2nd Step PPD Day 1 and Read results Day 3 (schedule 7 days after 1st READ) 0.1mL 11/13 Inactiv e 2023 07943 35456 0 1 time Intrad ermal False DISCONTINUE as of 11/14/2023: Tubersol 5 tub. unit/0.1 mL intradermal injection solution [Tuberculin PPD] 11/13 Inactiv e 2023 62080 25192 0 Tubersol 5 tub. unit/0.1 mL intradermal injection solution 0.1 mL Intradermal 1 time For PPD Step 1 GIVE on Day 1 and read results Day 3 0.1 mL 11/16 Active 2023 70502 77986 1 1 time Intrad ermal False DISCONTINUE as of 11/14/2023: Tubersol 5 tub. unit/0.1 mL intradermal injection solution [Tuberculin PPD] 11/13 Inactiv e 2023 76741 42515 0 Tubersol 5 tub. unit/0.1 mL intradermal injection solution 0.1mL Intradermal 1 time For PPD 2nd Step Give 2nd Step PPD Day 1 and Read results Day 3 (schedule 7 days after 1st READ) 0.1mL 11/25 Active 2023 13165 90134 1 1 time Intrad ermal False Tylenol 325 mg tablet 2 tabs By Mouth Every 4 hours as needed For Pain DO NOT EXCEED 3000 MG APAP/24 Hours 2 tabs 2023 Active 2023 63406 25999 0 Every 4 hours as needed By Mouth False Tylenol 325 mg tablet 2 tabs By Mouth Every 4 hours as needed For Fever >100 DO NOT EXCEED 3000 MG APAP/24 Hours 2 tabs 202300 Active 2023 01042 09827 0 Every 4 hours as needed By Mouth False Dulcolax (bisacodyl) 10 mg rectal suppository One Suppository per rectum PRN if Milk of Magnisia ineffective. Give on day 5 of no BM 1 sup 2023 Active 2023 65671 03157 1 Daily as needed Rectal False Fleet Enema 19 gram-7 gram/118 mL Administer per rectum PRN one time if dulcolax suppository not effective. Give on day 6 of no BM 1 202300 Active 2023 71738 21146 6 Daily as needed Rectal False Dextrose 50 % in water (D50W) intravenous solution [generic] Dextrose 50% reyes 20-50 ml (slow push) Intravenous if Glucagon not effective after 15 minutes. CALL 911 for ED Evaluation. 50% reyes 202300 0000 Active 2023 44684 77637 9 Intrav enous False Glucagon (HCl) Emergency Kit 1 mg solution for injection Administer Glucagon 1 mg Intramuscular if 15 minutes after GLucose Gel is administered Glucose remains less than 70 1 mg 2023 Active 2023 23998 60048 2 Intram uscula r False Glucose Gel 40 % oral gel [Dextrose] PRN If resident is unable to swallow (with or without symptoms) and Glucose results less than 70 give GLucose 40% Gel 1 tube orally - Recheck Glucose 15 minutes after administratio n. 1 tube 2023 Active 2023 47064 66044 8 By Mouth False Lorazepam 0.5 mg tablet [generic] 0.5 mg By Mouth Every 8 hours as needed For Anxiety 0.5 mg 2023 Active 2023 54661 91322 0 Every 8 hours as needed By Mouth False Potassium chloride ER 20 mEq tablet,exte nded release [generic] 40 meq By Mouth Once daily For Hypokalemia 40 meq 11/13 Inactiv e 2023 38269 58766 1 Once daily By Mouth False Colesevelam 625 mg tablet [generic] 1250 mg By Mouth Twice daily For TYPE 2 DIABETES MELLITUS WITHOUT COMPLICATIONS 1250 mg 2023 Active 2023 90015 39690 1 Twice daily By Mouth E11.9 False Pioglitazon e 15 mg tablet [generic] 15 mg By Mouth Once daily For TYPE 2 DIABETES MELLITUS WITHOUT COMPLICATIONS 15 mg 2023 Active 2023 96563 47786 1 Once daily By Mouth E11.9 False Cholecalcif hardeep (vitamin D3) 50 mcg (2,000 unit) tablet [generic] 50 mcg By Mouth Once daily For Supplement 50 mcg 2023 Active 2023 66356 87279 1 Once daily By Mouth False Colchicine 0.6 mg tablet [generic] 0.6 mg By Mouth Twice daily As Needed For Gout 0.6 mg 2023 Active 2023 73846 64162 4 Twice daily By Mouth False Levothyroxi ne 200 mcg tablet [generic] 200 mcg By Mouth Once daily For Hypothyroidis m 200 mcg 2023 Active 2023 14047 11050 0 Once daily By Mouth False Ondansetron 4 mg disintegrat ing tablet [generic] 4 mg By Mouth Every 6 hours as needed For Nausea 4 mg 11/12 Inactiv e 2023 56301 68846 4 Every 6 hours as needed By Mouth False Docusate sodium 100 mg capsule [generic] 100 mg By Mouth Twice daily For Constipation 100 mg 2023 Active 2023 12847 26496 1 Twice daily By Mouth False Oxycodone 5 mg tablet [generic] 5 mg By Mouth Every 6 hours as needed For Pain 5 mg 11/12 Inactiv e 2023 27139 04340 1 Every 6 hours as needed By Mouth False Oxycodone 5 mg tablet [generic] 5 mg By Mouth Every 6 hours as needed For Pain 5 mg 2023 Active 2023 33963 58707 1 Every 6 hours as needed By Mouth False Milk of Magnesia 400 mg/5 mL oral suspension 30 ml By Mouth one time per day as needed if no BM x 3 days For Constipation 30 ml 2023 Active 2023 02346 24624 2 By Mouth False Ondansetron 4 mg disintegrat ing tablet [generic] 11/12 Inactiv e 2023 62371 99933 4 Ondansetron 4 mg disintegrat ing tablet [generic] 4 mg By Mouth Every 6 hours as needed For Nausea 4 mg 2023 Active 2023 14479 27118 4 Every 6 hours as needed By Mouth False Potassium chloride ER 10 mEq capsule,ext ended release [generic] 40 mEq By Mouth Once daily For hypokalemia 40 mEq 2023 Active 2023 39911 00842 1 Once daily By Mouth False Potassium chloride ER 10 mEq capsule,ext ended release [generic] 4 capsules By Mouth At bedtime For hypokalemia 4 capsule s 11/16 Active 2023 89611 85089 1 At bedtime By Mouth False VITAL SIGNS Date Time Diastolic blood pressure Systolic blood pressure Body height Body weight Temperature SpO2 Blood Sugar Pulse Respirations 23939 918 04546 5 75.00 mm[Hg] - Sitting 140.00 mm[Hg] - Sitting 65 NI 98.00 Tympanic 95.00 % 102.00 /min 18.00/min 02243 918 71748 9 31140 918 84439 2 75.00 mm[Hg] - Sitting 140.00 mm[Hg] - Sitting 98.00 Tympanic 102.00 /min 18.00/min 30388 918 46006 3 64946 918 72007 1 72.00 mm[Hg] - Sitting 138.00 mm[Hg] - Sitting 98.40 Tympanic 89959 918 49436 4 88.00/ min 18.00/min
--- OUTSIDE RECORDS SUMMARY | 2023-12-14 00:05 | External Medical Summary | Continuity Of Care Document ---
Author Name Unknown Address [address] [place] [address] Organization [facility] [place] () Care Team Providers Care Door To Door Salesperson Name Role Phone DO Parson Amy Primary Care Provider [phone] Allergies Allergy Reaction Start Date End Date [...] 3 0.1 mL 11/13 Inactiv e 2023 14179 56502 0 1 time Intrad ermal False Tubersol 5 tub. unit/0.1 mL intradermal injection solution [Tuberculin PPD] 0.1mL Intradermal 1 time For PPD 2nd Step Give 2nd Step PPD Day 1 and Read results Day 3 (schedule 7 days after 1st READ) 0.1mL 11/13 Inactiv e 2023 60236 80569 0 1 time Intrad ermal False DISCONTINUE as of 11/14/2023: Tubersol 5 tub. unit/0.1 mL intradermal injection solution [Tuberculin PPD] 11/13 Inactiv e 2023 36901 63072 0 Tubersol 5 tub. unit/0.1 mL intradermal injection solution 0.1 mL Intradermal 1 time For PPD Step 1 GIVE on Day 1 and read results Day 3 0.1 mL 11/16 Active 2023 41252 83022 1 1 time Intrad ermal False DISCONTINUE as of 11/14/2023: Tubersol 5 tub. unit/0.1 mL intradermal injection solution [Tuberculin PPD] 11/13 Inactiv e 2023 61371 40994 0 Tubersol 5 tub. unit/0.1 mL intradermal injection solution 0.1mL Intradermal 1 time For PPD 2nd Step Give 2nd Step PPD Day 1 and Read results Day 3 (schedule 7 days after 1st READ) 0.1mL 11/25 Active 2023 97649 44157 1 1 time Intrad ermal False Tylenol 325 mg tablet 2 tabs By Mouth Every 4 hours as needed For Pain DO NOT EXCEED 3000 MG APAP/24 Hours 2 tabs 2023 Active 2023 96122 43902 0 Every 4 hours as needed By Mouth False Tylenol 325 mg tablet 2 tabs By Mouth Every 4 hours as needed For Fever >100 DO NOT EXCEED 3000 MG APAP/24 Hours 2 tabs 202300 Active 2023 10536 32952 0 Every 4 hours as needed By Mouth False Dulcolax (bisacodyl) 10 mg rectal suppository One Suppository per rectum PRN if Milk of Magnisia ineffective. Give on day 5 of no BM 1 sup 2023 Active 2023 01578 16235 1 Daily as needed Rectal False Fleet Enema 19 gram-7 gram/118 mL Administer per rectum PRN one time if dulcolax suppository not effective. Give on day 6 of no BM 1 202300 Active 2023 87673 73116 6 Daily as needed Rectal False Dextrose 50 % in water (D50W) intravenous solution [generic] Dextrose 50% reyes 20-50 ml (slow push) Intravenous if Glucagon not effective after 15 minutes. CALL 911 for ED Evaluation. 50% reyes 202300 0000 Active 2023 34266 86477 9 Intrav enous False Glucagon (HCl) Emergency Kit 1 mg solution for injection Administer Glucagon 1 mg Intramuscular if 15 minutes after GLucose Gel is administered Glucose remains less than 70 1 mg 2023 Active 2023 08259 68530 2 Intram uscula r False Glucose Gel 40 % oral gel [Dextrose] PRN If resident is unable to swallow (with or without symptoms) and Glucose results less than 70 give GLucose 40% Gel 1 tube orally - Recheck Glucose 15 minutes after administratio n. 1 tube 2023 Active 2023 36514 19798 8 By Mouth False Lorazepam 0.5 mg tablet [generic] 0.5 mg By Mouth Every 8 hours as needed For Anxiety 0.5 mg 2023 Active 2023 47236 65515 0 Every 8 hours as needed By Mouth False Potassium chloride ER 20 mEq tablet,exte nded release [generic] 40 meq By Mouth Once daily For Hypokalemia 40 meq 11/13 Inactiv e 2023 77672 53650 1 Once daily By Mouth False Colesevelam 625 mg tablet [generic] 1250 mg By Mouth Twice daily For TYPE 2 DIABETES MELLITUS WITHOUT COMPLICATIONS 1250 mg 2023 Active 2023 93096 69102 1 Twice daily By Mouth E11.9 False Pioglitazon e 15 mg tablet [generic] 15 mg By Mouth Once daily For TYPE 2 DIABETES MELLITUS WITHOUT COMPLICATIONS 15 mg 2023 Active 2023 77773 47793 1 Once daily By Mouth E11.9 False Cholecalcif hardeep (vitamin D3) 50 mcg (2,000 unit) tablet [generic] 50 mcg By Mouth Once daily For Supplement 50 mcg 2023 Active 2023 21625 32014 1 Once daily By Mouth False Colchicine 0.6 mg tablet [generic] 0.6 mg By Mouth Twice daily As Needed For Gout 0.6 mg 2023 Active 2023 87896 32230 4 Twice daily By Mouth False Levothyroxi ne 200 mcg tablet [generic] 200 mcg By Mouth Once daily For Hypothyroidis m 200 mcg 2023 Active 2023 72988 14655 0 Once daily By Mouth False Ondansetron 4 mg disintegrat ing tablet [generic] 4 mg By Mouth Every 6 hours as needed For Nausea 4 mg 11/12 Inactiv e 2023 44491 62493 4 Every 6 hours as needed By Mouth False Docusate sodium 100 mg capsule [generic] 100 mg By Mouth Twice daily For Constipation 100 mg 2023 Active 2023 78805 84798 1 Twice daily By Mouth False Oxycodone 5 mg tablet [generic] 5 mg By Mouth Every 6 hours as needed For Pain 5 mg 11/12 Inactiv e 2023 06229 04744 1 Every 6 hours as needed By Mouth False Oxycodone 5 mg tablet [generic] 5 mg By Mouth Every 6 hours as needed For Pain 5 mg 2023 Active 2023 75349 00520 1 Every 6 hours as needed By Mouth False Milk of Magnesia 400 mg/5 mL oral suspension 30 ml By Mouth one time per day as needed if no BM x 3 days For Constipation 30 ml 2023 Active 2023 96102 27632 2 By Mouth False Ondansetron 4 mg disintegrat ing tablet [generic] 11/12 Inactiv e 2023 92190 75087 4 Ondansetron 4 mg disintegrat ing tablet [generic] 4 mg By Mouth Every 6 hours as needed For Nausea 4 mg 2023 Active 2023 81981 95468 4 Every 6 hours as needed By Mouth False Potassium chloride ER 10 mEq capsule,ext ended release [generic] 40 mEq By Mouth Once daily For hypokalemia 40 mEq 2023 Active 2023 01374 27462 1 Once daily By Mouth False Potassium chloride ER 10 mEq capsule,ext ended release [generic] 4 capsules By Mouth At bedtime For hypokalemia 4 capsule s 11/16 Active 2023 53356 30262 1 At bedtime By Mouth False Problems [...] weight Temperature SpO2 Blood Sugar Pulse Respirations 33434 5 75.00 mm[Hg] - Sitting 140.00 mm[Hg] - Sitting 65 NI 98.00 Tympanic 95.00 % 102.00 /min 18.00/min 8 27568 9 8 97969 2 75.00 mm[Hg] - Sitting 140.00 mm[Hg] - Sitting 98.00 Tympanic 102.00 /min 18.00/min 41285 8 94904 3 8 24395 1 72.00 mm[Hg] - Sitting 138.00 mm[Hg] - Sitting 98.40 Tympanic 53713 8 84002 4 88.00/ min 18.00/min 919 58922 4 71.00 mm[Hg] - Sitting 115.00 mm[Hg] - Sitting 98.30 Tympanic 97.00 % 86.00/ min 16.00/min
--- OUTSIDE RECORDS SUMMARY | 2023-12-14 00:05 | External Medical Summary | Continuity Of Care Document ---
Author Name Unknown Address [address] [address] Organization [facility] () Care Team Providers Care Tankman Name Role Phone DO Parson Amy Primary Care Provider [phone] Allergies Allergy Reaction Start Date End Date [...] Day 3 0.1 mL 11/15 Active 2023 20681 91827 0 1 time Intrad ermal False Tubersol 5 tub. unit/0.1 mL intradermal injection solution [Tuberculin PPD] 0.1mL Intradermal 1 time For PPD 2nd Step Give 2nd Step PPD Day 1 and Read results Day 3 (schedule 7 days after 1st READ) 0.1mL 11/25 Active 2023 30626 53498 0 1 time Intrad ermal False Tylenol 325 mg tablet 2 tabs By Mouth Every 4 hours as needed For Pain DO NOT EXCEED 3000 MG APAP/24 Hours 2 tabs 2023 Active 2023 79383 90525 0 Every 4 hours as needed By Mouth False Tylenol 325 mg tablet 2 tabs By Mouth Every 4 hours as needed For Fever >100 DO NOT EXCEED 3000 MG APAP/24 Hours 2 tabs 2023 Active 2023 80574 69424 0 Every 4 hours as needed By Mouth False Dulcolax (bisacodyl) 10 mg rectal suppository One Suppository per rectum PRN if Milk of Magnisia ineffective. Give on day 5 of no BM 1 sup 2023 Active 2023 08009 90569 1 Daily as needed Rectal False Fleet Enema 19 gram-7 gram/118 mL Administer per rectum PRN one time if dulcolax suppository not effective. Give on day 6 of no BM 1 2023 Active 2023 05924 18427 6 Daily as needed Rectal False Dextrose 50 % in water (D50W) intravenous solution [generic] Dextrose 50% reyes 20-50 ml (slow push) Intravenous if Glucagon not effective after 15 minutes. CALL 911 for ED Evaluation. 50% reyes 2023 Active 2023 80738 44143 9 Intrav enous False Glucagon (HCl) Emergency Kit 1 mg solution for injection Administer Glucagon 1 mg Intramuscular if 15 minutes after GLucose Gel is administered Glucose remains less than 70 1 mg 2023 Active 2023 78218 81325 2 Intram uscula r False Glucose Gel 40 % oral gel [Dextrose] PRN If resident is unable to swallow (with or without symptoms) and Glucose results less than 70 give GLucose 40% Gel 1 tube orally - Recheck Glucose 15 minutes after administratio n. 1 tube 2023 Active 2023 71189 18774 8 By Mouth False Lorazepam 0.5 mg tablet [generic] 0.5 mg By Mouth Every 8 hours as needed For Anxiety 0.5 mg 2023 Active 2023 77140 58221 0 Every 8 hours as needed By Mouth False Potassium chloride ER 20 mEq tablet,exte nded release [generic] 40 meq By Mouth Once daily For Hypokalemia 40 meq 2023 Active 2023 83351 14383 1 Once daily By Mouth False Colesevelam 625 mg tablet [generic] 1250 mg By Mouth Twice daily For TYPE 2 DIABETES MELLITUS WITHOUT COMPLICATIONS 1250 mg 2023 Active 2023 74705 88712 1 Twice daily By Mouth E11.9 False Pioglitazon e 15 mg tablet [generic] 15 mg By Mouth Once daily For TYPE 2 DIABETES MELLITUS WITHOUT COMPLICATIONS 15 mg 2023 Active 2023 17543 58318 1 Once daily By Mouth E11.9 False Cholecalcif hardeep (vitamin D3) 50 mcg (2,000 unit) tablet [generic] 50 mcg By Mouth Once daily For Supplement 50 mcg 2023 Active 2023 79580 19275 1 Once daily By Mouth False Colchicine 0.6 mg tablet [generic] 0.6 mg By Mouth Twice daily As Needed For Gout 0.6 mg 2023 Active 2023 64961 27880 4 Twice daily By Mouth False Levothyroxi ne 200 mcg tablet [generic] 200 mcg By Mouth Once daily For Hypothyroidis m 200 mcg 2023 Active 2023 15846 80342 0 Once daily By Mouth False Ondansetron 4 mg disintegrat ing tablet [generic] 4 mg By Mouth Every 6 hours as needed For Nausea 4 mg 2023 Active 2023 87675 57346 4 Every 6 hours as needed By Mouth False Docusate sodium 100 mg capsule [generic] 100 mg By Mouth Twice daily For Constipation 100 mg 2023 Active 2023 31561 00789 1 Twice daily By Mouth False Oxycodone 5 mg tablet [generic] 5 mg By Mouth Every 6 hours as needed For Pain 5 mg 11/12 Inactiv e 2023 83402 78657 1 Every 6 hours as needed By Mouth False Oxycodone 5 mg tablet [generic] 5 mg By Mouth Every 6 hours as needed For Pain 5 mg 2023 Active 2023 09889 47051 1 Every 6 hours as needed By Mouth False VITAL SIGNS Date Time Diastolic blood pressure Systolic blood pressure Body height Body weight Temperature SpO2 Blood Sugar Pulse Respirations 66921 918 00045 5 75.00 mm[Hg] - Sitting 140.00 mm[Hg] - Sitting 65 NI 98.00 Tympanic 95.00 % 102.00 /min 18.00/min 8 48446 9
--- OUTSIDE RECORDS SUMMARY | 2023-12-14 00:05 | External Medical Summary | Continuity Of Care Document ---
Author Name Unknown Address [address] [address] Organization [facility] () Care Team Providers Care Shoe Turner Name Role Phone DO Parson Amy Primary Care Provider [phone] Allergies Allergy Reaction Start Date End Date Status SULFA (SULFONAMIDE ANTIBIOTICS) 00/0 Active BACLOFEN Active TRAMADOL Active GABAPENTIN Active
--- OUTSIDE RECORDS SUMMARY | 2023-12-14 00:05 | External Medical Summary | Continuity Of Care Document ---
Author Name Unknown Address [address] [address] Organization [facility] () Care Team Providers Care Petroleum Laboratory Technician Name Role Phone DO Parson Amy Primary Care Provider [phone] Allergies Allergy Reaction Start Date End Date [...] Day 3 0.1 mL 11/15 Active 2023 81571 01340 0 1 time Intrad ermal False Tubersol 5 tub. unit/0.1 mL intradermal injection solution [Tuberculin PPD] 0.1mL Intradermal 1 time For PPD 2nd Step Give 2nd Step PPD Day 1 and Read results Day 3 (schedule 7 days after 1st READ) 0.1mL 11/25 Active 2023 75974 20382 0 1 time Intrad ermal False Tylenol 325 mg tablet 2 tabs By Mouth Every 4 hours as needed For Pain DO NOT EXCEED 3000 MG APAP/24 Hours 2 tabs 2023 Active 2023 13169 50955 0 Every 4 hours as needed By Mouth False Tylenol 325 mg tablet 2 tabs By Mouth Every 4 hours as needed For Fever >100 DO NOT EXCEED 3000 MG APAP/24 Hours 2 tabs 2023 Active 2023 13602 56156 0 Every 4 hours as needed By Mouth False Dulcolax (bisacodyl) 10 mg rectal suppository One Suppository per rectum PRN if Milk of Magnisia ineffective. Give on day 5 of no BM 1 sup 2023 Active 2023 65213 22003 1 Daily as needed Rectal False Fleet Enema 19 gram-7 gram/118 mL Administer per rectum PRN one time if dulcolax suppository not effective. Give on day 6 of no BM 1 2023 Active 2023 65018 49417 6 Daily as needed Rectal False Dextrose 50 % in water (D50W) intravenous solution [generic] Dextrose 50% reyes 20-50 ml (slow push) Intravenous if Glucagon not effective after 15 minutes. CALL 911 for ED Evaluation. 50% reyes 2023 Active 2023 92840 31663 9 Intrav enous False Glucagon (HCl) Emergency Kit 1 mg solution for injection Administer Glucagon 1 mg Intramuscular if 15 minutes after GLucose Gel is administered Glucose remains less than 70 1 mg 2023 Active 2023 18174 69760 2 Intram uscula r False Glucose Gel 40 % oral gel [Dextrose] PRN If resident is unable to swallow (with or without symptoms) and Glucose results less than 70 give GLucose 40% Gel 1 tube orally - Recheck Glucose 15 minutes after administratio n. 1 tube 2023 Active 2023 80110 23053 8 By Mouth False Lorazepam 0.5 mg tablet [generic] 0.5 mg By Mouth Every 8 hours as needed For Anxiety 0.5 mg 2023 Active 2023 96009 91257 0 Every 8 hours as needed By Mouth False Potassium chloride ER 20 mEq tablet,exte nded release [generic] 40 meq By Mouth Once daily For Hypokalemia 40 meq 2023 Active 2023 28593 67684 1 Once daily By Mouth False Colesevelam 625 mg tablet [generic] 1250 mg By Mouth Twice daily For TYPE 2 DIABETES MELLITUS WITHOUT COMPLICATIONS 1250 mg 2023 Active 2023 10592 12110 1 Twice daily By Mouth E11.9 False Pioglitazon e 15 mg tablet [generic] 15 mg By Mouth Once daily For TYPE 2 DIABETES MELLITUS WITHOUT COMPLICATIONS 15 mg 2023 Active 2023 96944 91012 1 Once daily By Mouth E11.9 False Cholecalcif hardeep (vitamin D3) 50 mcg (2,000 unit) tablet [generic] 50 mcg By Mouth Once daily For Supplement 50 mcg 2023 Active 2023 25461 82284 1 Once daily By Mouth False Colchicine 0.6 mg tablet [generic] 0.6 mg By Mouth Twice daily As Needed For Gout 0.6 mg 2023 Active 2023 25086 53575 4 Twice daily By Mouth False Levothyroxi ne 200 mcg tablet [generic] 200 mcg By Mouth Once daily For Hypothyroidis m 200 mcg 2023 Active 2023 54035 36076 0 Once daily By Mouth False Ondansetron 4 mg disintegrat ing tablet [generic] 4 mg By Mouth Every 6 hours as needed For Nausea 4 mg 11/12 Inactiv e 2023 31577 70217 4 Every 6 hours as needed By Mouth False Docusate sodium 100 mg capsule [generic] 100 mg By Mouth Twice daily For Constipation 100 mg 2023 Active 2023 70043 17398 1 Twice daily By Mouth False Oxycodone 5 mg tablet [generic] 5 mg By Mouth Every 6 hours as needed For Pain 5 mg 11/12 Inactiv e 2023 45240 26160 1 Every 6 hours as needed By Mouth False Oxycodone 5 mg tablet [generic] 5 mg By Mouth Every 6 hours as needed For Pain 5 mg 2023 Active 2023 12090 97454 1 Every 6 hours as needed By Mouth False Milk of Magnesia 400 mg/5 mL oral suspension 30 ml By Mouth one time per day as needed if no BM x 3 days For Constipation 30 ml 2023 00/00 /0000 Active 2023 79470 54588 2 By Mouth False Ondansetron 4 mg disintegrat ing tablet [generic] 11/12 Inactiv e 2023 64535 71309 4 Ondansetron 4 mg disintegrat ing tablet [generic] 4 mg By Mouth Every 6 hours as needed For Nausea 4 mg 2023 0000 /0000 Active 2023 35642 94386 4 Every 6 hours as needed By Mouth False VITAL SIGNS Date Time Diastolic blood pressure Systolic blood pressure Body height Body weight Temperature SpO2 Blood Sugar Pulse Respirations 20643 918 91735 5 75.00 mm[Hg] - Sitting 140.00 mm[Hg] - Sitting 65 NI 98.00 Tympanic 95.00 % 102.00 /min 18.00/min 21594 918 88959 9 30527 918 97387 2 75.00 mm[Hg] - Sitting 140.00 mm[Hg] - Sitting 98.00 Tympanic 102.00 /min 18.00/min 99779 918 47212 3 08892 918 06679 1 72.00 mm[Hg] - Sitting 138.00 mm[Hg] - Sitting 98.40 Tympanic 79692 918 50223 4 88.00/ min 18.00/min
--- OUTSIDE RECORDS SUMMARY | 2023-12-14 00:05 | External Medical Summary | Continuity Of Care Document ---
Author Name Unknown Address [address] [address] [facility] [address] [place] () Care Team Providers Care Hat Band Attacher Name Role Phone DO Parson Amy Primary Care Provider [phone] Allergies Allergy Reaction Start Date End Date [...] Day 3 0.1 mL 11/15 Active 2023 77679 13081 0 1 time Intrad ermal False Tubersol 5 tub. unit/0.1 mL intradermal injection solution [Tuberculin PPD] 0.1mL Intradermal 1 time For PPD 2nd Step Give 2nd Step PPD Day 1 and Read results Day 3 (schedule 7 days after 1st READ) 0.1mL 11/25 Active 2023 60004 38383 0 1 time Intrad ermal False Tylenol 325 mg tablet 2 tabs By Mouth Every 4 hours as needed For Pain DO NOT EXCEED 3000 MG APAP/24 Hours 2 tabs 2023 Active 2023 89284 07516 0 Every 4 hours as needed By Mouth False Tylenol 325 mg tablet 2 tabs By Mouth Every 4 hours as needed For Fever >100 DO NOT EXCEED 3000 MG APAP/24 Hours 2 tabs 2023 Active 2023 01842 04564 0 Every 4 hours as needed By Mouth False Dulcolax (bisacodyl) 10 mg rectal suppository One Suppository per rectum PRN if Milk of Magnisia ineffective. Give on day 5 of no BM 1 sup 2023 Active 2023 22304 32775 1 Daily as needed Rectal False Fleet Enema 19 gram-7 gram/118 mL Administer per rectum PRN one time if dulcolax suppository not effective. Give on day 6 of no BM 1 2023 Active 2023 20551 90673 6 Daily as needed Rectal False Dextrose 50 % in water (D50W) intravenous solution [generic] Dextrose 50% reyes 20-50 ml (slow push) Intravenous if Glucagon not effective after 15 minutes. CALL 911 for ED Evaluation. 50% reyes 2023 Active 2023 24325 95372 9 Intrav enous False Glucagon (HCl) Emergency Kit 1 mg solution for injection Administer Glucagon 1 mg Intramuscular if 15 minutes after GLucose Gel is administered Glucose remains less than 70 1 mg 2023 Active 2023 75425 74657 2 Intram uscula r False Glucose Gel 40 % oral gel [Dextrose] PRN If resident is unable to swallow (with or without symptoms) and Glucose results less than 70 give GLucose 40% Gel 1 tube orally - Recheck Glucose 15 minutes after administratio n. 1 tube 2023 Active 2023 30755 79130 8 By Mouth False Lorazepam 0.5 mg tablet [generic] 0.5 mg By Mouth Every 8 hours as needed For Anxiety 0.5 mg 2023 Active 2023 96161 45526 0 Every 8 hours as needed By Mouth False Potassium chloride ER 20 mEq tablet,exte nded release [generic] 40 meq By Mouth Once daily For Hypokalemia 40 meq 2023 Active 2023 90898 58126 1 Once daily By Mouth False Colesevelam 625 mg tablet [generic] 1250 mg By Mouth Twice daily For TYPE 2 DIABETES MELLITUS WITHOUT COMPLICATIONS 1250 mg 2023 Active 2023 93879 14241 1 Twice daily By Mouth E11.9 False Pioglitazon e 15 mg tablet [generic] 15 mg By Mouth Once daily For TYPE 2 DIABETES MELLITUS WITHOUT COMPLICATIONS 15 mg 2023 Active 2023 17221 94867 1 Once daily By Mouth E11.9 False Cholecalcif hardeep (vitamin D3) 50 mcg (2,000 unit) tablet [generic] 50 mcg By Mouth Once daily For Supplement 50 mcg 2023 Active 2023 64009 88981 1 Once daily By Mouth False Colchicine 0.6 mg tablet [generic] 0.6 mg By Mouth Twice daily As Needed For Gout 0.6 mg 2023 Active 2023 48844 89104 4 Twice daily By Mouth False Levothyroxi ne 200 mcg tablet [generic] 200 mcg By Mouth Once daily For Hypothyroidis m 200 mcg 2023 Active 2023 26534 97780 0 Once daily By Mouth False Ondansetron 4 mg disintegrat ing tablet [generic] 4 mg By Mouth Every 6 hours as needed For Nausea 4 mg 2023 Active 2023 84517 91989 4 Every 6 hours as needed By Mouth False Docusate sodium 100 mg capsule [generic] 100 mg By Mouth Twice daily For Constipation 100 mg 2023 Active 2023 83631 44517 1 Twice daily By Mouth False Oxycodone 5 mg tablet [generic] 5 mg By Mouth Every 6 hours as needed For Pain 5 mg 11/12 Inactiv e 2023 99378 81262 1 Every 6 hours as needed By Mouth False Oxycodone 5 mg tablet [generic] 5 mg By Mouth Every 6 hours as needed For Pain 5 mg 2023 Active 2023 71067 53281 1 Every 6 hours as needed By Mouth False Milk of Magnesia 400 mg/5 mL oral suspension 30 ml By Mouth one time per day as needed if no BM x 3 days For Constipation 30 ml 2023 00/00 /0000 Active 2023 33259 23265 2 By Mouth False VITAL SIGNS Date Time Diastolic blood pressure Systolic blood pressure Body height Body weight Temperature SpO2 Blood Sugar Pulse Respirations 918 10554 5 75.00 mm[Hg] - Sitting 140.00 mm[Hg] - Sitting 65 NI 98.00 Tympanic 95.00 % 102.00 /min 18.00/min 918 27694 9
--- OUTSIDE RECORDS SUMMARY | 2023-12-14 00:05 | External Medical Summary | Continuity Of Care Document ---
Author Name Unknown Address [address] [address] Organization [facility] () Care Team Providers Care Repairer Welding Equipment Name Role Phone DO Parson Amy Primary Care Provider [phone] Allergies Allergy Reaction Start Date End Date [...] Day 3 0.1 mL 11/15 Active 2023 19676 92407 0 1 time Intrad ermal False Tubersol 5 tub. unit/0.1 mL intradermal injection solution [Tuberculin PPD] 0.1mL Intradermal 1 time For PPD 2nd Step Give 2nd Step PPD Day 1 and Read results Day 3 (schedule 7 days after 1st READ) 0.1mL 11/25 Active 2023 90511 14289 0 1 time Intrad ermal False Tylenol 325 mg tablet 2 tabs By Mouth Every 4 hours as needed For Pain DO NOT EXCEED 3000 MG APAP/24 Hours 2 tabs 2023 Active 2023 37343 79641 0 Every 4 hours as needed By Mouth False Tylenol 325 mg tablet 2 tabs By Mouth Every 4 hours as needed For Fever >100 DO NOT EXCEED 3000 MG APAP/24 Hours 2 tabs 2023 Active 2023 42604 87781 0 Every 4 hours as needed By Mouth False Dulcolax (bisacodyl) 10 mg rectal suppository One Suppository per rectum PRN if Milk of Magnisia ineffective. Give on day 5 of no BM 1 sup 2023 Active 2023 22311 03381 1 Daily as needed Rectal False Fleet Enema 19 gram-7 gram/118 mL Administer per rectum PRN one time if dulcolax suppository not effective. Give on day 6 of no BM 1 2023 Active 2023 19816 35219 6 Daily as needed Rectal False Dextrose 50 % in water (D50W) intravenous solution [generic] Dextrose 50% reyes 20-50 ml (slow push) Intravenous if Glucagon not effective after 15 minutes. CALL 911 for ED Evaluation. 50% reyes 2023 Active 2023 68482 77078 9 Intrav enous False Glucagon (HCl) Emergency Kit 1 mg solution for injection Administer Glucagon 1 mg Intramuscular if 15 minutes after GLucose Gel is administered Glucose remains less than 70 1 mg 2023 Active 2023 37112 73832 2 Intram uscula r False Glucose Gel 40 % oral gel [Dextrose] PRN If resident is unable to swallow (with or without symptoms) and Glucose results less than 70 give GLucose 40% Gel 1 tube orally - Recheck Glucose 15 minutes after administratio n. 1 tube 2023 Active 2023 17878 47299 8 By Mouth False Lorazepam 0.5 mg tablet [generic] 0.5 mg By Mouth Every 8 hours as needed For Anxiety 0.5 mg 2023 Active 2023 05635 99350 0 Every 8 hours as needed By Mouth False Potassium chloride ER 20 mEq tablet,exte nded release [generic] 40 meq By Mouth Once daily For Hypokalemia 40 meq 2023 Active 2023 24311 60300 1 Once daily By Mouth False Colesevelam 625 mg tablet [generic] 1250 mg By Mouth Twice daily For TYPE 2 DIABETES MELLITUS WITHOUT COMPLICATIONS 1250 mg 2023 Active 2023 05728 69909 1 Twice daily By Mouth E11.9 False Pioglitazon e 15 mg tablet [generic] 15 mg By Mouth Once daily For TYPE 2 DIABETES MELLITUS WITHOUT COMPLICATIONS 15 mg 2023 Active 2023 08090 19493 1 Once daily By Mouth E11.9 False Cholecalcif hardeep (vitamin D3) 50 mcg (2,000 unit) tablet [generic] 50 mcg By Mouth Once daily For Supplement 50 mcg 2023 Active 2023 98281 15806 1 Once daily By Mouth False Colchicine 0.6 mg tablet [generic] 0.6 mg By Mouth Twice daily As Needed For Gout 0.6 mg 2023 Active 2023 18492 36644 4 Twice daily By Mouth False Levothyroxi ne 200 mcg tablet [generic] 200 mcg By Mouth Once daily For Hypothyroidis m 200 mcg 2023 Active 2023 95008 36885 0 Once daily By Mouth False Ondansetron 4 mg disintegrat ing tablet [generic] 4 mg By Mouth Every 6 hours as needed For Nausea 4 mg 2023 Active 2023 90466 58896 4 Every 6 hours as needed By Mouth False Docusate sodium 100 mg capsule [generic] 100 mg By Mouth Twice daily For Constipation 100 mg 2023 Active 2023 56277 58687 1 Twice daily By Mouth False Oxycodone 5 mg tablet [generic] 5 mg By Mouth Every 6 hours as needed For Pain 5 mg 11/12 Inactiv e 2023 79526 95065 1 Every 6 hours as needed By Mouth False Oxycodone 5 mg tablet [generic] 5 mg By Mouth Every 6 hours as needed For Pain 5 mg 2023 Active 2023 02928 36629 1 Every 6 hours as needed By Mouth False Milk of Magnesia 400 mg/5 mL oral suspension 30 ml By Mouth one time per day as needed if no BM x 3 days For Constipation 30 ml 2023 00/00 /0000 Active 2023 04100 05526 2 By Mouth False VITAL SIGNS Date Time Diastolic blood pressure Systolic blood pressure Body height Body weight Temperature SpO2 Blood Sugar Pulse Respirations 918 03232 5 75.00 mm[Hg] - Sitting 140.00 mm[Hg] - Sitting 65 NI 98.00 Tympanic 95.00 % 102.00 /min 18.00/min 918 46207 9
--- OUTSIDE RECORDS SUMMARY | 2023-12-14 00:05 | External Medical Summary | Continuity Of Care Document ---
Author Name Unknown Address [address] [place] [address] Organization [facility] [place] () Care Team Providers Care Radio Journalist Name Role Phone DO Parson Amy Primary Care Provider [phone] Allergies Allergy Reaction Start Date End Date [...] 3 0.1 mL 11/13 Inactiv e 2023 71853 70234 0 1 time Intrad ermal False Tubersol 5 tub. unit/0.1 mL intradermal injection solution [Tuberculin PPD] 0.1mL Intradermal 1 time For PPD 2nd Step Give 2nd Step PPD Day 1 and Read results Day 3 (schedule 7 days after 1st READ) 0.1mL 11/13 Inactiv e 2023 49788 54542 0 1 time Intrad ermal False DISCONTINUE as of 11/14/2023: Tubersol 5 tub. unit/0.1 mL intradermal injection solution [Tuberculin PPD] 11/13 Inactiv e 2023 52449 19635 0 Tubersol 5 tub. unit/0.1 mL intradermal injection solution 0.1 mL Intradermal 1 time For PPD Step 1 GIVE on Day 1 and read results Day 3 0.1 mL 11/16 Active 2023 21420 11724 1 1 time Intrad ermal False DISCONTINUE as of 11/14/2023: Tubersol 5 tub. unit/0.1 mL intradermal injection solution [Tuberculin PPD] 11/13 Inactiv e 2023 13596 17572 0 Tubersol 5 tub. unit/0.1 mL intradermal injection solution 0.1mL Intradermal 1 time For PPD 2nd Step Give 2nd Step PPD Day 1 and Read results Day 3 (schedule 7 days after 1st READ) 0.1mL 11/25 Active 2023 83153 41982 1 1 time Intrad ermal False Tylenol 325 mg tablet 2 tabs By Mouth Every 4 hours as needed For Pain DO NOT EXCEED 3000 MG APAP/24 Hours 2 tabs 2023 Active 2023 75535 95269 0 Every 4 hours as needed By Mouth False Tylenol 325 mg tablet 2 tabs By Mouth Every 4 hours as needed For Fever >100 DO NOT EXCEED 3000 MG APAP/24 Hours 2 tabs 202300 Active 2023 82953 41695 0 Every 4 hours as needed By Mouth False Dulcolax (bisacodyl) 10 mg rectal suppository One Suppository per rectum PRN if Milk of Magnisia ineffective. Give on day 5 of no BM 1 sup 2023 Active 2023 43692 52249 1 Daily as needed Rectal False Fleet Enema 19 gram-7 gram/118 mL Administer per rectum PRN one time if dulcolax suppository not effective. Give on day 6 of no BM 1 202300 Active 2023 40606 85156 6 Daily as needed Rectal False Dextrose 50 % in water (D50W) intravenous solution [generic] Dextrose 50% reyes 20-50 ml (slow push) Intravenous if Glucagon not effective after 15 minutes. CALL 911 for ED Evaluation. 50% reyes 202300 0000 Active 2023 29600 01248 9 Intrav enous False Glucagon (HCl) Emergency Kit 1 mg solution for injection Administer Glucagon 1 mg Intramuscular if 15 minutes after GLucose Gel is administered Glucose remains less than 70 1 mg 2023 Active 2023 37106 37712 2 Intram uscula r False Glucose Gel 40 % oral gel [Dextrose] PRN If resident is unable to swallow (with or without symptoms) and Glucose results less than 70 give GLucose 40% Gel 1 tube orally - Recheck Glucose 15 minutes after administratio n. 1 tube 2023 Active 2023 93651 26043 8 By Mouth False Lorazepam 0.5 mg tablet [generic] 0.5 mg By Mouth Every 8 hours as needed For Anxiety 0.5 mg 2023 Active 2023 36475 79181 0 Every 8 hours as needed By Mouth False Potassium chloride ER 20 mEq tablet,exte nded release [generic] 40 meq By Mouth Once daily For Hypokalemia 40 meq 11/13 Inactiv e 2023 73278 18437 1 Once daily By Mouth False Colesevelam 625 mg tablet [generic] 1250 mg By Mouth Twice daily For TYPE 2 DIABETES MELLITUS WITHOUT COMPLICATIONS 1250 mg 2023 Active 2023 39256 26125 1 Twice daily By Mouth E11.9 False Pioglitazon e 15 mg tablet [generic] 15 mg By Mouth Once daily For TYPE 2 DIABETES MELLITUS WITHOUT COMPLICATIONS 15 mg 2023 Active 2023 27540 44022 1 Once daily By Mouth E11.9 False Cholecalcif hardeep (vitamin D3) 50 mcg (2,000 unit) tablet [generic] 50 mcg By Mouth Once daily For Supplement 50 mcg 2023 Active 2023 20737 75978 1 Once daily By Mouth False Colchicine 0.6 mg tablet [generic] 0.6 mg By Mouth Twice daily As Needed For Gout 0.6 mg 2023 Active 2023 45679 38879 4 Twice daily By Mouth False Levothyroxi ne 200 mcg tablet [generic] 200 mcg By Mouth Once daily For Hypothyroidis m 200 mcg 2023 Active 2023 59106 46197 0 Once daily By Mouth False Ondansetron 4 mg disintegrat ing tablet [generic] 4 mg By Mouth Every 6 hours as needed For Nausea 4 mg 11/12 Inactiv e 2023 93088 23140 4 Every 6 hours as needed By Mouth False Docusate sodium 100 mg capsule [generic] 100 mg By Mouth Twice daily For Constipation 100 mg 2023 Active 2023 93338 76762 1 Twice daily By Mouth False Oxycodone 5 mg tablet [generic] 5 mg By Mouth Every 6 hours as needed For Pain 5 mg 11/12 Inactiv e 2023 06252 50236 1 Every 6 hours as needed By Mouth False Oxycodone 5 mg tablet [generic] 5 mg By Mouth Every 6 hours as needed For Pain 5 mg 2023 Active 2023 10372 83570 1 Every 6 hours as needed By Mouth False Milk of Magnesia 400 mg/5 mL oral suspension 30 ml By Mouth one time per day as needed if no BM x 3 days For Constipation 30 ml 2023 Active 2023 93053 79655 2 By Mouth False Ondansetron 4 mg disintegrat ing tablet [generic] 11/12 Inactiv e 2023 58786 67493 4 Ondansetron 4 mg disintegrat ing tablet [generic] 4 mg By Mouth Every 6 hours as needed For Nausea 4 mg 2023 Active 2023 77816 07926 4 Every 6 hours as needed By Mouth False Potassium chloride ER 10 mEq capsule,ext ended release [generic] 40 mEq By Mouth Once daily For hypokalemia 40 mEq 2023 Active 2023 54718 35706 1 Once daily By Mouth False Potassium chloride ER 10 mEq capsule,ext ended release [generic] 4 capsules By Mouth At bedtime For hypokalemia 4 capsule s 11/16 Active 2023 25296 33718 1 At bedtime By Mouth False VITAL SIGNS Date Time Diastolic blood pressure Systolic blood pressure Body height Body weight Temperature SpO2 Blood Sugar Pulse Respirations 60801 918 30279 5 75.00 mm[Hg] - Sitting 140.00 mm[Hg] - Sitting 65 NI 98.00 Tympanic 95.00 % 102.00 /min 18.00/min 51379 918 83268 9 84473 918 75226 2 75.00 mm[Hg] - Sitting 140.00 mm[Hg] - Sitting 98.00 Tympanic 102.00 /min 18.00/min 26005 918 97210 3 43085 918 09027 1 72.00 mm[Hg] - Sitting 138.00 mm[Hg] - Sitting 98.40 Tympanic 02794 918 25142 4 88.00/ min 18.00/min
--- OUTSIDE RECORDS SUMMARY | 2023-12-14 00:05 | External Medical Summary | Continuity Of Care Document ---
Author Name Unknown Address [address] [address] [facility] [place] () Care Team Providers Care Finish Carpenter Name Role Phone DO Parson Amy Primary Care Provider [phone] Allergies Allergy Reaction Start Date End Date [...] Day 3 0.1 mL 11/15 Active 2023 41563 61955 0 1 time Intrad ermal False Tubersol 5 tub. unit/0.1 mL intradermal injection solution [Tuberculin PPD] 0.1mL Intradermal 1 time For PPD 2nd Step Give 2nd Step PPD Day 1 and Read results Day 3 (schedule 7 days after 1st READ) 0.1mL 11/25 Active 2023 24956 62225 0 1 time Intrad ermal False Tylenol 325 mg tablet 2 tabs By Mouth Every 4 hours as needed For Pain DO NOT EXCEED 3000 MG APAP/24 Hours 2 tabs 2023 Active 2023 00389 05576 0 Every 4 hours as needed By Mouth False Tylenol 325 mg tablet 2 tabs By Mouth Every 4 hours as needed For Fever >100 DO NOT EXCEED 3000 MG APAP/24 Hours 2 tabs 2023 Active 2023 30998 89510 0 Every 4 hours as needed By Mouth False Dulcolax (bisacodyl) 10 mg rectal suppository One Suppository per rectum PRN if Milk of Magnisia ineffective. Give on day 5 of no BM 1 sup 2023 Active 2023 53075 94819 1 Daily as needed Rectal False Fleet Enema 19 gram-7 gram/118 mL Administer per rectum PRN one time if dulcolax suppository not effective. Give on day 6 of no BM 1 2023 Active 2023 81513 76814 6 Daily as needed Rectal False Dextrose 50 % in water (D50W) intravenous solution [generic] Dextrose 50% reyes 20-50 ml (slow push) Intravenous if Glucagon not effective after 15 minutes. CALL 911 for ED Evaluation. 50% reyes 2023 Active 2023 07616 94881 9 Intrav enous False Glucagon (HCl) Emergency Kit 1 mg solution for injection Administer Glucagon 1 mg Intramuscular if 15 minutes after GLucose Gel is administered Glucose remains less than 70 1 mg 2023 Active 2023 50741 51265 2 Intram uscula r False Glucose Gel 40 % oral gel [Dextrose] PRN If resident is unable to swallow (with or without symptoms) and Glucose results less than 70 give GLucose 40% Gel 1 tube orally - Recheck Glucose 15 minutes after administratio n. 1 tube 2023 Active 2023 53244 02766 8 By Mouth False
--- OUTSIDE RECORDS SUMMARY | 2023-12-14 00:05 | External Medical Summary | Continuity Of Care Document ---
Author Name Unknown Address [address] [place] [address] Organization [facility] [place] () Care Team Providers Care Apprenticeship Consultant Name Role Phone DO Parson Amy Primary Care Provider [phone] Allergies Allergy Reaction Start Date End Date [...] 3 0.1 mL 11/13 Inactiv e 2023 27740 29396 0 1 time Intrad ermal False Tubersol 5 tub. unit/0.1 mL intradermal injection solution [Tuberculin PPD] 0.1mL Intradermal 1 time For PPD 2nd Step Give 2nd Step PPD Day 1 and Read results Day 3 (schedule 7 days after 1st READ) 0.1mL 11/13 Inactiv e 2023 80538 70337 0 1 time Intrad ermal False DISCONTINUE as of 11/14/2023: Tubersol 5 tub. unit/0.1 mL intradermal injection solution [Tuberculin PPD] 11/13 Inactiv e 2023 18729 58848 0 Tubersol 5 tub. unit/0.1 mL intradermal injection solution 0.1 mL Intradermal 1 time For PPD Step 1 GIVE on Day 1 and read results Day 3 0.1 mL 11/16 Active 2023 95949 28056 1 1 time Intrad ermal False DISCONTINUE as of 11/14/2023: Tubersol 5 tub. unit/0.1 mL intradermal injection solution [Tuberculin PPD] 11/13 Inactiv e 2023 38387 86821 0 Tubersol 5 tub. unit/0.1 mL intradermal injection solution 0.1mL Intradermal 1 time For PPD 2nd Step Give 2nd Step PPD Day 1 and Read results Day 3 (schedule 7 days after 1st READ) 0.1mL 11/25 Active 2023 23566 31679 1 1 time Intrad ermal False Tylenol 325 mg tablet 2 tabs By Mouth Every 4 hours as needed For Pain DO NOT EXCEED 3000 MG APAP/24 Hours 2 tabs 2023 Active 2023 84488 86054 0 Every 4 hours as needed By Mouth False Tylenol 325 mg tablet 2 tabs By Mouth Every 4 hours as needed For Fever >100 DO NOT EXCEED 3000 MG APAP/24 Hours 2 tabs 202300 Active 2023 44869 47022 0 Every 4 hours as needed By Mouth False Dulcolax (bisacodyl) 10 mg rectal suppository One Suppository per rectum PRN if Milk of Magnisia ineffective. Give on day 5 of no BM 1 sup 2023 Active 2023 82631 15379 1 Daily as needed Rectal False Fleet Enema 19 gram-7 gram/118 mL Administer per rectum PRN one time if dulcolax suppository not effective. Give on day 6 of no BM 1 202300 Active 2023 20057 17600 6 Daily as needed Rectal False Dextrose 50 % in water (D50W) intravenous solution [generic] Dextrose 50% reyes 20-50 ml (slow push) Intravenous if Glucagon not effective after 15 minutes. CALL 911 for ED Evaluation. 50% reyes 202300 0000 Active 2023 52202 97893 9 Intrav enous False Glucagon (HCl) Emergency Kit 1 mg solution for injection Administer Glucagon 1 mg Intramuscular if 15 minutes after GLucose Gel is administered Glucose remains less than 70 1 mg 2023 Active 2023 41967 04825 2 Intram uscula r False Glucose Gel 40 % oral gel [Dextrose] PRN If resident is unable to swallow (with or without symptoms) and Glucose results less than 70 give GLucose 40% Gel 1 tube orally - Recheck Glucose 15 minutes after administratio n. 1 tube 2023 Active 2023 98219 29385 8 By Mouth False Lorazepam 0.5 mg tablet [generic] 0.5 mg By Mouth Every 8 hours as needed For Anxiety 0.5 mg 2023 Active 2023 15805 81813 0 Every 8 hours as needed By Mouth False Potassium chloride ER 20 mEq tablet,exte nded release [generic] 40 meq By Mouth Once daily For Hypokalemia 40 meq 11/13 Inactiv e 2023 67425 20341 1 Once daily By Mouth False Colesevelam 625 mg tablet [generic] 1250 mg By Mouth Twice daily For TYPE 2 DIABETES MELLITUS WITHOUT COMPLICATIONS 1250 mg 2023 Active 2023 97259 88411 1 Twice daily By Mouth E11.9 False Pioglitazon e 15 mg tablet [generic] 15 mg By Mouth Once daily For TYPE 2 DIABETES MELLITUS WITHOUT COMPLICATIONS 15 mg 2023 Active 2023 03185 91438 1 Once daily By Mouth E11.9 False Cholecalcif hardeep (vitamin D3) 50 mcg (2,000 unit) tablet [generic] 50 mcg By Mouth Once daily For Supplement 50 mcg 2023 Active 2023 28281 22894 1 Once daily By Mouth False Colchicine 0.6 mg tablet [generic] 0.6 mg By Mouth Twice daily As Needed For Gout 0.6 mg 2023 Active 2023 97485 41803 4 Twice daily By Mouth False Levothyroxi ne 200 mcg tablet [generic] 200 mcg By Mouth Once daily For Hypothyroidis m 200 mcg 2023 Active 2023 40822 73751 0 Once daily By Mouth False Ondansetron 4 mg disintegrat ing tablet [generic] 4 mg By Mouth Every 6 hours as needed For Nausea 4 mg 11/12 Inactiv e 2023 46036 82307 4 Every 6 hours as needed By Mouth False Docusate sodium 100 mg capsule [generic] 100 mg By Mouth Twice daily For Constipation 100 mg 2023 Active 2023 67478 63146 1 Twice daily By Mouth False Oxycodone 5 mg tablet [generic] 5 mg By Mouth Every 6 hours as needed For Pain 5 mg 11/12 Inactiv e 2023 47256 16900 1 Every 6 hours as needed By Mouth False Oxycodone 5 mg tablet [generic] 5 mg By Mouth Every 6 hours as needed For Pain 5 mg 2023 Active 2023 84001 84630 1 Every 6 hours as needed By Mouth False Milk of Magnesia 400 mg/5 mL oral suspension 30 ml By Mouth one time per day as needed if no BM x 3 days For Constipation 30 ml 2023 Active 2023 48030 09295 2 By Mouth False Ondansetron 4 mg disintegrat ing tablet [generic] 11/12 Inactiv e 2023 25538 49927 4 Ondansetron 4 mg disintegrat ing tablet [generic] 4 mg By Mouth Every 6 hours as needed For Nausea 4 mg 2023 Active 2023 18431 68792 4 Every 6 hours as needed By Mouth False Potassium chloride ER 10 mEq capsule,ext ended release [generic] 40 mEq By Mouth Once daily For hypokalemia 40 mEq 2023 Active 2023 19764 54084 1 Once daily By Mouth False Potassium chloride ER 10 mEq capsule,ext ended release [generic] 4 capsules By Mouth At bedtime For hypokalemia 4 capsule s 11/16 Active 2023 37781 72600 1 At bedtime By Mouth False Problems [...] weight Temperature SpO2 Blood Sugar Pulse Respirations 72841 5 75.00 mm[Hg] - Sitting 140.00 mm[Hg] - Sitting 65 NI 98.00 Tympanic 95.00 % 102.00 /min 18.00/min 8 70111 9 918 69659 2 75.00 mm[Hg] - Sitting 140.00 mm[Hg] - Sitting 98.00 Tympanic 102.00 /min 18.00/min 8 75913 3 8 67229 1 72.00 mm[Hg] - Sitting 138.00 mm[Hg] - Sitting 98.40 Tympanic 8 77085 4 88.00/ min 18.00/min
--- OUTSIDE RECORDS SUMMARY | 2023-12-14 00:05 | External Medical Summary | Continuity Of Care Document ---
Author Name Unknown Address [address] [place] [address] Organization [facility] [place] () Care Team Providers Care Director Online Marketing Name Role Phone DO Parson Amy Primary Care Provider [phone] Allergies Allergy Reaction Start Date End Date [...] 3 0.1 mL 11/13 Inactiv e 2023 24600 23599 0 1 time Intrad ermal False Tubersol 5 tub. unit/0.1 mL intradermal injection solution [Tuberculin PPD] 0.1mL Intradermal 1 time For PPD 2nd Step Give 2nd Step PPD Day 1 and Read results Day 3 (schedule 7 days after 1st READ) 0.1mL 11/13 Inactiv e 2023 89988 75924 0 1 time Intrad ermal False DISCONTINUE as of 11/14/2023: Tubersol 5 tub. unit/0.1 mL intradermal injection solution [Tuberculin PPD] 11/13 Inactiv e 2023 22489 92821 0 Tubersol 5 tub. unit/0.1 mL intradermal injection solution 0.1 mL Intradermal 1 time For PPD Step 1 GIVE on Day 1 and read results Day 3 0.1 mL 11/16 Active 2023 29480 27490 1 1 time Intrad ermal False DISCONTINUE as of 11/14/2023: Tubersol 5 tub. unit/0.1 mL intradermal injection solution [Tuberculin PPD] 11/13 Inactiv e 2023 80943 33474 0 Tubersol 5 tub. unit/0.1 mL intradermal injection solution 0.1mL Intradermal 1 time For PPD 2nd Step Give 2nd Step PPD Day 1 and Read results Day 3 (schedule 7 days after 1st READ) 0.1mL 11/25 Active 2023 71869 04837 1 1 time Intrad ermal False Tylenol 325 mg tablet 2 tabs By Mouth Every 4 hours as needed For Pain DO NOT EXCEED 3000 MG APAP/24 Hours 2 tabs 2023 Active 2023 39068 95096 0 Every 4 hours as needed By Mouth False Tylenol 325 mg tablet 2 tabs By Mouth Every 4 hours as needed For Fever >100 DO NOT EXCEED 3000 MG APAP/24 Hours 2 tabs 202300 Active 2023 99785 91978 0 Every 4 hours as needed By Mouth False Dulcolax (bisacodyl) 10 mg rectal suppository One Suppository per rectum PRN if Milk of Magnisia ineffective. Give on day 5 of no BM 1 sup 2023 Active 2023 07691 67371 1 Daily as needed Rectal False Fleet Enema 19 gram-7 gram/118 mL Administer per rectum PRN one time if dulcolax suppository not effective. Give on day 6 of no BM 1 202300 Active 2023 39084 93392 6 Daily as needed Rectal False Dextrose 50 % in water (D50W) intravenous solution [generic] Dextrose 50% reyes 20-50 ml (slow push) Intravenous if Glucagon not effective after 15 minutes. CALL 911 for ED Evaluation. 50% reyes 202300 0000 Active 2023 29624 57348 9 Intrav enous False Glucagon (HCl) Emergency Kit 1 mg solution for injection Administer Glucagon 1 mg Intramuscular if 15 minutes after GLucose Gel is administered Glucose remains less than 70 1 mg 2023 Active 2023 75558 07449 2 Intram uscula r False Glucose Gel 40 % oral gel [Dextrose] PRN If resident is unable to swallow (with or without symptoms) and Glucose results less than 70 give GLucose 40% Gel 1 tube orally - Recheck Glucose 15 minutes after administratio n. 1 tube 2023 Active 2023 96743 53629 8 By Mouth False Lorazepam 0.5 mg tablet [generic] 0.5 mg By Mouth Every 8 hours as needed For Anxiety 0.5 mg 2023 Active 2023 11303 64523 0 Every 8 hours as needed By Mouth False Potassium chloride ER 20 mEq tablet,exte nded release [generic] 40 meq By Mouth Once daily For Hypokalemia 40 meq 11/13 Inactiv e 2023 34210 86998 1 Once daily By Mouth False Colesevelam 625 mg tablet [generic] 1250 mg By Mouth Twice daily For TYPE 2 DIABETES MELLITUS WITHOUT COMPLICATIONS 1250 mg 2023 Active 2023 87119 37903 1 Twice daily By Mouth E11.9 False Pioglitazon e 15 mg tablet [generic] 15 mg By Mouth Once daily For TYPE 2 DIABETES MELLITUS WITHOUT COMPLICATIONS 15 mg 2023 Active 2023 02347 46425 1 Once daily By Mouth E11.9 False Cholecalcif hardeep (vitamin D3) 50 mcg (2,000 unit) tablet [generic] 50 mcg By Mouth Once daily For Supplement 50 mcg 2023 Active 2023 72878 07285 1 Once daily By Mouth False Colchicine 0.6 mg tablet [generic] 0.6 mg By Mouth Twice daily As Needed For Gout 0.6 mg 2023 Active 2023 10680 46529 4 Twice daily By Mouth False Levothyroxi ne 200 mcg tablet [generic] 200 mcg By Mouth Once daily For Hypothyroidis m 200 mcg 2023 Active 2023 64164 23154 0 Once daily By Mouth False Ondansetron 4 mg disintegrat ing tablet [generic] 4 mg By Mouth Every 6 hours as needed For Nausea 4 mg 11/12 Inactiv e 2023 36106 54857 4 Every 6 hours as needed By Mouth False Docusate sodium 100 mg capsule [generic] 100 mg By Mouth Twice daily For Constipation 100 mg 2023 Active 2023 96592 22301 1 Twice daily By Mouth False Oxycodone 5 mg tablet [generic] 5 mg By Mouth Every 6 hours as needed For Pain 5 mg 11/12 Inactiv e 2023 36683 57447 1 Every 6 hours as needed By Mouth False Oxycodone 5 mg tablet [generic] 5 mg By Mouth Every 6 hours as needed For Pain 5 mg 2023 Active 2023 04585 43022 1 Every 6 hours as needed By Mouth False Milk of Magnesia 400 mg/5 mL oral suspension 30 ml By Mouth one time per day as needed if no BM x 3 days For Constipation 30 ml 2023 Active 2023 74874 83699 2 By Mouth False Ondansetron 4 mg disintegrat ing tablet [generic] 11/12 Inactiv e 2023 38280 05510 4 Ondansetron 4 mg disintegrat ing tablet [generic] 4 mg By Mouth Every 6 hours as needed For Nausea 4 mg 2023 Active 2023 00791 85967 4 Every 6 hours as needed By Mouth False Potassium chloride ER 10 mEq capsule,ext ended release [generic] 40 mEq By Mouth Once daily For hypokalemia 40 mEq 2023 Active 2023 60383 02360 1 Once daily By Mouth False Potassium chloride ER 10 mEq capsule,ext ended release [generic] 4 capsules By Mouth At bedtime For hypokalemia 4 capsule s 11/16 Active 2023 58020 52420 1 At bedtime By Mouth False VITAL SIGNS Date Time Diastolic blood pressure Systolic blood pressure Body height Body weight Temperature SpO2 Blood Sugar Pulse Respirations 41427 918 14338 5 75.00 mm[Hg] - Sitting 140.00 mm[Hg] - Sitting 65 NI 98.00 Tympanic 95.00 % 102.00 /min 18.00/min 45822 918 27808 9 21559 918 18911 2 75.00 mm[Hg] - Sitting 140.00 mm[Hg] - Sitting 98.00 Tympanic 102.00 /min 18.00/min 15109 918 48264 3 54920 918 69344 1 72.00 mm[Hg] - Sitting 138.00 mm[Hg] - Sitting 98.40 Tympanic 90090 918 19895 4 88.00/ min 18.00/min
--- OUTSIDE RECORDS SUMMARY | 2023-12-14 00:05 | External Medical Summary | Continuity Of Care Document ---
Author Name Unknown Address [address] [place] [address] Organization [facility] () Care Team Providers Care Back Tender Cloth Printing Name Role Phone DO Parson Amy Primary Care Provider [phone] Allergies Allergy Reaction Start Date End Date [...] 3 0.1 mL 11/13 Inactiv e 2023 36320 85561 0 1 time Intrad ermal False Tubersol 5 tub. unit/0.1 mL intradermal injection solution [Tuberculin PPD] 0.1mL Intradermal 1 time For PPD 2nd Step Give 2nd Step PPD Day 1 and Read results Day 3 (schedule 7 days after 1st READ) 0.1mL 11/13 Inactiv e 2023 75833 76296 0 1 time Intrad ermal False DISCONTINUE as of 11/14/2023: Tubersol 5 tub. unit/0.1 mL intradermal injection solution [Tuberculin PPD] 11/13 Inactiv e 2023 94432 35231 0 Tubersol 5 tub. unit/0.1 mL intradermal injection solution 0.1 mL Intradermal 1 time For PPD Step 1 GIVE on Day 1 and read results Day 3 0.1 mL 11/16 Active 2023 08264 43200 1 1 time Intrad ermal False DISCONTINUE as of 11/14/2023: Tubersol 5 tub. unit/0.1 mL intradermal injection solution [Tuberculin PPD] 11/13 Inactiv e 2023 91866 29516 0 Tubersol 5 tub. unit/0.1 mL intradermal injection solution 0.1mL Intradermal 1 time For PPD 2nd Step Give 2nd Step PPD Day 1 and Read results Day 3 (schedule 7 days after 1st READ) 0.1mL 11/25 Active 2023 90221 31478 1 1 time Intrad ermal False Tylenol 325 mg tablet 2 tabs By Mouth Every 4 hours as needed For Pain DO NOT EXCEED 3000 MG APAP/24 Hours 2 tabs 2023 Active 2023 67718 55193 0 Every 4 hours as needed By Mouth False Tylenol 325 mg tablet 2 tabs By Mouth Every 4 hours as needed For Fever >100 DO NOT EXCEED 3000 MG APAP/24 Hours 2 tabs 202300 Active 2023 91514 03720 0 Every 4 hours as needed By Mouth False Dulcolax (bisacodyl) 10 mg rectal suppository One Suppository per rectum PRN if Milk of Magnisia ineffective. Give on day 5 of no BM 1 sup 2023 Active 2023 39747 71450 1 Daily as needed Rectal False Fleet Enema 19 gram-7 gram/118 mL Administer per rectum PRN one time if dulcolax suppository not effective. Give on day 6 of no BM 1 202300 Active 2023 36405 69939 6 Daily as needed Rectal False Dextrose 50 % in water (D50W) intravenous solution [generic] Dextrose 50% reyes 20-50 ml (slow push) Intravenous if Glucagon not effective after 15 minutes. CALL 911 for ED Evaluation. 50% reyes 202300 0000 Active 2023 91427 42655 9 Intrav enous False Glucagon (HCl) Emergency Kit 1 mg solution for injection Administer Glucagon 1 mg Intramuscular if 15 minutes after GLucose Gel is administered Glucose remains less than 70 1 mg 2023 Active 2023 23315 14437 2 Intram uscula r False Glucose Gel 40 % oral gel [Dextrose] PRN If resident is unable to swallow (with or without symptoms) and Glucose results less than 70 give GLucose 40% Gel 1 tube orally - Recheck Glucose 15 minutes after administratio n. 1 tube 2023 Active 2023 46440 55049 8 By Mouth False Lorazepam 0.5 mg tablet [generic] 0.5 mg By Mouth Every 8 hours as needed For Anxiety 0.5 mg 2023 Active 2023 32020 13299 0 Every 8 hours as needed By Mouth False Potassium chloride ER 20 mEq tablet,exte nded release [generic] 40 meq By Mouth Once daily For Hypokalemia 40 meq 2023 Active 2023 87654 07023 1 Once daily By Mouth False Colesevelam 625 mg tablet [generic] 1250 mg By Mouth Twice daily For TYPE 2 DIABETES MELLITUS WITHOUT COMPLICATIONS 1250 mg 2023 Active 2023 98180 48466 1 Twice daily By Mouth E11.9 False Pioglitazon e 15 mg tablet [generic] 15 mg By Mouth Once daily For TYPE 2 DIABETES MELLITUS WITHOUT COMPLICATIONS 15 mg 2023 Active 2023 37391 12678 1 Once daily By Mouth E11.9 False Cholecalcif hardeep (vitamin D3) 50 mcg (2,000 unit) tablet [generic] 50 mcg By Mouth Once daily For Supplement 50 mcg 2023 Active 2023 31193 16488 1 Once daily By Mouth False Colchicine 0.6 mg tablet [generic] 0.6 mg By Mouth Twice daily As Needed For Gout 0.6 mg 2023 Active 2023 21503 43397 4 Twice daily By Mouth False Levothyroxi ne 200 mcg tablet [generic] 200 mcg By Mouth Once daily For Hypothyroidis m 200 mcg 2023 Active 2023 01027 52533 0 Once daily By Mouth False Ondansetron 4 mg disintegrat ing tablet [generic] 4 mg By Mouth Every 6 hours as needed For Nausea 4 mg 11/12 Inactiv e 2023 47302 53293 4 Every 6 hours as needed By Mouth False Docusate sodium 100 mg capsule [generic] 100 mg By Mouth Twice daily For Constipation 100 mg 2023 Active 2023 93508 60588 1 Twice daily By Mouth False Oxycodone 5 mg tablet [generic] 5 mg By Mouth Every 6 hours as needed For Pain 5 mg 11/12 Inactiv e 2023 59388 85610 1 Every 6 hours as needed By Mouth False Oxycodone 5 mg tablet [generic] 5 mg By Mouth Every 6 hours as needed For Pain 5 mg 2023 Active 2023 79161 56626 1 Every 6 hours as needed By Mouth False Milk of Magnesia 400 mg/5 mL oral suspension 30 ml By Mouth one time per day as needed if no BM x 3 days For Constipation 30 ml 2023 Active 2023 56717 91586 2 By Mouth False Ondansetron 4 mg disintegrat ing tablet [generic] 11/12 Inactiv e 2023 69797 53693 4 Ondansetron 4 mg disintegrat ing tablet [generic] 4 mg By Mouth Every 6 hours as needed For Nausea 4 mg 2023 Active 2023 44199 16172 4 Every 6 hours as needed By Mouth False Potassium chloride ER 10 mEq capsule,ext ended release [generic] 40 mEq By Mouth Once daily For hypokalemia 40 mEq 2023 Active 2023 62798 89266 1 Once daily By Mouth False VITAL SIGNS Date Time Diastolic blood pressure Systolic blood pressure Body height Body weight Temperature SpO2 Blood Sugar Pulse Respirations 34048 918 51802 5 75.00 mm[Hg] - Sitting 140.00 mm[Hg] - Sitting 65 NI 98.00 Tympanic 95.00 % 102.00 /min 18.00/min 56340 918 16493 9 42403 918 70293 2 75.00 mm[Hg] - Sitting 140.00 mm[Hg] - Sitting 98.00 Tympanic 102.00 /min 18.00/min 32749 918 61576 3 33440 918 57814 1 72.00 mm[Hg] - Sitting 138.00 mm[Hg] - Sitting 98.40 Tympanic 91079 918 52285 4 88.00/ min 18.00/min
--- OUTSIDE RECORDS SUMMARY | 2023-12-14 00:05 | External Medical Summary | Continuity Of Care Document ---
Author Name Unknown Address [address] [place] [address] [address] Organization [facility] () Care Team Providers Care Pull Over Machine Operator Name Role Phone DO Parson Amy Primary Care Provider [phone] Allergies Allergy Reaction Start Date End Date [...] Day 3 0.1 mL 11/15 Active 2023 38602 52977 0 1 time Intrad ermal False Tubersol 5 tub. unit/0.1 mL intradermal injection solution [Tuberculin PPD] 0.1mL Intradermal 1 time For PPD 2nd Step Give 2nd Step PPD Day 1 and Read results Day 3 (schedule 7 days after 1st READ) 0.1mL 11/25 Active 2023 61652 79568 0 1 time Intrad ermal False Tylenol 325 mg tablet 2 tabs By Mouth Every 4 hours as needed For Pain DO NOT EXCEED 3000 MG APAP/24 Hours 2 tabs 2023 Active 2023 94059 53585 0 Every 4 hours as needed By Mouth False Tylenol 325 mg tablet 2 tabs By Mouth Every 4 hours as needed For Fever >100 DO NOT EXCEED 3000 MG APAP/24 Hours 2 tabs 2023 Active 2023 55952 30455 0 Every 4 hours as needed By Mouth False Dulcolax (bisacodyl) 10 mg rectal suppository One Suppository per rectum PRN if Milk of Magnisia ineffective. Give on day 5 of no BM 1 sup 2023 Active 2023 15862 48094 1 Daily as needed Rectal False Fleet Enema 19 gram-7 gram/118 mL Administer per rectum PRN one time if dulcolax suppository not effective. Give on day 6 of no BM 1 2023 Active 2023 49118 85593 6 Daily as needed Rectal False Dextrose 50 % in water (D50W) intravenous solution [generic] Dextrose 50% reyes 20-50 ml (slow push) Intravenous if Glucagon not effective after 15 minutes. CALL 911 for ED Evaluation. 50% reyes 2023 Active 2023 73793 56423 9 Intrav enous False Glucagon (HCl) Emergency Kit 1 mg solution for injection Administer Glucagon 1 mg Intramuscular if 15 minutes after GLucose Gel is administered Glucose remains less than 70 1 mg 2023 Active 2023 39464 46807 2 Intram uscula r False Glucose Gel 40 % oral gel [Dextrose] PRN If resident is unable to swallow (with or without symptoms) and Glucose results less than 70 give GLucose 40% Gel 1 tube orally - Recheck Glucose 15 minutes after administratio n. 1 tube 2023 Active 2023 46831 01558 8 By Mouth False Lorazepam 0.5 mg tablet [generic] 0.5 mg By Mouth Every 8 hours as needed For Anxiety 0.5 mg 2023 Active 2023 90849 43942 0 Every 8 hours as needed By Mouth False Potassium chloride ER 20 mEq tablet,exte nded release [generic] 40 meq By Mouth Once daily For Hypokalemia 40 meq 2023 Active 2023 04710 92516 1 Once daily By Mouth False Colesevelam 625 mg tablet [generic] 1250 mg By Mouth Twice daily For TYPE 2 DIABETES MELLITUS WITHOUT COMPLICATIONS 1250 mg 2023 Active 2023 67325 87610 1 Twice daily By Mouth E11.9 False Pioglitazon e 15 mg tablet [generic] 15 mg By Mouth Once daily For TYPE 2 DIABETES MELLITUS WITHOUT COMPLICATIONS 15 mg 2023 Active 2023 50631 51954 1 Once daily By Mouth E11.9 False Cholecalcif hardeep (vitamin D3) 50 mcg (2,000 unit) tablet [generic] 50 mcg By Mouth Once daily For Supplement 50 mcg 2023 Active 2023 49288 51795 1 Once daily By Mouth False Colchicine 0.6 mg tablet [generic] 0.6 mg By Mouth Twice daily As Needed For Gout 0.6 mg 2023 Active 2023 43649 45724 4 Twice daily By Mouth False Levothyroxi ne 200 mcg tablet [generic] 200 mcg By Mouth Once daily For Hypothyroidis m 200 mcg 2023 Active 2023 95996 19257 0 Once daily By Mouth False Ondansetron 4 mg disintegrat ing tablet [generic] 4 mg By Mouth Every 6 hours as needed For Nausea 4 mg 2023 Active 2023 93871 30550 4 Every 6 hours as needed By Mouth False Docusate sodium 100 mg capsule [generic] 100 mg By Mouth Twice daily For Constipation 100 mg 2023 Active 2023 18844 52699 1 Twice daily By Mouth False Oxycodone 5 mg tablet [generic] 5 mg By Mouth Every 6 hours as needed For Pain 5 mg 11/12 Inactiv e 2023 72688 34478 1 Every 6 hours as needed By Mouth False Oxycodone 5 mg tablet [generic] 5 mg By Mouth Every 6 hours as needed For Pain 5 mg 2023 Active 2023 64479 57287 1 Every 6 hours as needed By Mouth False VITAL SIGNS Date Time Diastolic blood pressure Systolic blood pressure Body height Body weight Temperature SpO2 Blood Sugar Pulse Respirations 31464 918 30116 5 75.00 mm[Hg] - Sitting 140.00 mm[Hg] - Sitting 65 NI 98.00 Tympanic 95.00 % 102.00 /min 18.00/min 8 51163 9
--- OUTSIDE RECORDS SUMMARY | 2023-12-14 00:05 | External Medical Summary | Continuity Of Care Document ---
Author Name Unknown Address [address] [place] [address] [facility] () Care Team Providers Care Dental Office Coordinator Name Role Phone DO Parson Amy Primary Care Provider [phone] Allergies Allergy Reaction Start Date End Date [...] Day 3 0.1 mL 11/15 Active 2023 70470 25080 0 1 time Intrad ermal False Tubersol 5 tub. unit/0.1 mL intradermal injection solution [Tuberculin PPD] 0.1mL Intradermal 1 time For PPD 2nd Step Give 2nd Step PPD Day 1 and Read results Day 3 (schedule 7 days after 1st READ) 0.1mL 11/25 Active 2023 47544 91098 0 1 time Intrad ermal False Tylenol 325 mg tablet 2 tabs By Mouth Every 4 hours as needed For Pain DO NOT EXCEED 3000 MG APAP/24 Hours 2 tabs 2023 Active 2023 81679 13964 0 Every 4 hours as needed By Mouth False Tylenol 325 mg tablet 2 tabs By Mouth Every 4 hours as needed For Fever >100 DO NOT EXCEED 3000 MG APAP/24 Hours 2 tabs 2023 Active 2023 41787 00873 0 Every 4 hours as needed By Mouth False Dulcolax (bisacodyl) 10 mg rectal suppository One Suppository per rectum PRN if Milk of Magnisia ineffective. Give on day 5 of no BM 1 sup 2023 Active 2023 70368 13727 1 Daily as needed Rectal False Fleet Enema 19 gram-7 gram/118 mL Administer per rectum PRN one time if dulcolax suppository not effective. Give on day 6 of no BM 1 2023 Active 2023 64734 44199 6 Daily as needed Rectal False Dextrose 50 % in water (D50W) intravenous solution [generic] Dextrose 50% reyes 20-50 ml (slow push) Intravenous if Glucagon not effective after 15 minutes. CALL 911 for ED Evaluation. 50% reyes 2023 Active 2023 68446 04565 9 Intrav enous False Glucagon (HCl) Emergency Kit 1 mg solution for injection Administer Glucagon 1 mg Intramuscular if 15 minutes after GLucose Gel is administered Glucose remains less than 70 1 mg 2023 Active 2023 53395 70959 2 Intram uscula r False Glucose Gel 40 % oral gel [Dextrose] PRN If resident is unable to swallow (with or without symptoms) and Glucose results less than 70 give GLucose 40% Gel 1 tube orally - Recheck Glucose 15 minutes after administratio n. 1 tube 2023 Active 2023 52345 00367 8 By Mouth False Lorazepam 0.5 mg tablet [generic] 0.5 mg By Mouth Every 8 hours as needed For Anxiety 0.5 mg 2023 Active 2023 06697 50524 0 Every 8 hours as needed By Mouth False Potassium chloride ER 20 mEq tablet,exte nded release [generic] 40 meq By Mouth Once daily For Hypokalemia 40 meq 2023 Active 2023 94402 93415 1 Once daily By Mouth False Colesevelam 625 mg tablet [generic] 1250 mg By Mouth Twice daily For TYPE 2 DIABETES MELLITUS WITHOUT COMPLICATIONS 1250 mg 2023 Active 2023 84634 82703 1 Twice daily By Mouth E11.9 False Pioglitazon e 15 mg tablet [generic] 15 mg By Mouth Once daily For TYPE 2 DIABETES MELLITUS WITHOUT COMPLICATIONS 15 mg 2023 Active 2023 79938 50983 1 Once daily By Mouth E11.9 False Cholecalcif hardeep (vitamin D3) 50 mcg (2,000 unit) tablet [generic] 50 mcg By Mouth Once daily For Supplement 50 mcg 2023 Active 2023 17164 05582 1 Once daily By Mouth False Colchicine 0.6 mg tablet [generic] 0.6 mg By Mouth Twice daily As Needed For Gout 0.6 mg 2023 Active 2023 97990 97765 4 Twice daily By Mouth False Levothyroxi ne 200 mcg tablet [generic] 200 mcg By Mouth Once daily For Hypothyroidis m 200 mcg 2023 Active 2023 21377 61365 0 Once daily By Mouth False Ondansetron 4 mg disintegrat ing tablet [generic] 4 mg By Mouth Every 6 hours as needed For Nausea 4 mg 11/12 Inactiv e 2023 79839 07089 4 Every 6 hours as needed By Mouth False Docusate sodium 100 mg capsule [generic] 100 mg By Mouth Twice daily For Constipation 100 mg 2023 Active 2023 31495 18865 1 Twice daily By Mouth False Oxycodone 5 mg tablet [generic] 5 mg By Mouth Every 6 hours as needed For Pain 5 mg 11/12 Inactiv e 2023 87982 78920 1 Every 6 hours as needed By Mouth False Oxycodone 5 mg tablet [generic] 5 mg By Mouth Every 6 hours as needed For Pain 5 mg 2023 Active 2023 88227 17445 1 Every 6 hours as needed By Mouth False Milk of Magnesia 400 mg/5 mL oral suspension 30 ml By Mouth one time per day as needed if no BM x 3 days For Constipation 30 ml 2023 00/00 /0000 Active 2023 47572 34325 2 By Mouth False Ondansetron 4 mg disintegrat ing tablet [generic] 11/12 Inactiv e 2023 45576 08508 4 Ondansetron 4 mg disintegrat ing tablet [generic] 4 mg By Mouth Every 6 hours as needed For Nausea 4 mg 2023 0000 /0000 Active 2023 45323 64942 4 Every 6 hours as needed By Mouth False VITAL SIGNS Date Time Diastolic blood pressure Systolic blood pressure Body height Body weight Temperature SpO2 Blood Sugar Pulse Respirations 50991 918 65862 5 75.00 mm[Hg] - Sitting 140.00 mm[Hg] - Sitting 65 NI 98.00 Tympanic 95.00 % 102.00 /min 18.00/min 19466 918 35424 9 41169 918 75425 2 75.00 mm[Hg] - Sitting 140.00 mm[Hg] - Sitting 98.00 Tympanic 102.00 /min 18.00/min 99386 918 64608 3 06065 918 53020 1 72.00 mm[Hg] - Sitting 138.00 mm[Hg] - Sitting 98.40 Tympanic 18225 918 60293 4 88.00/ min 18.00/min
--- OUTSIDE RECORDS SUMMARY | 2023-12-14 00:05 | External Medical Summary | Continuity Of Care Document ---
Author Name Unknown Address [address] [place] [address] [address] [facility] () Care Team Providers Care Yard Worker Name Role Phone DO Parson Amy Primary Care Provider [phone] Allergies Allergy Reaction Start Date End Date [...] Day 3 0.1 mL 11/15 Active 2023 25207 63997 0 1 time Intrad ermal False Tubersol 5 tub. unit/0.1 mL intradermal injection solution [Tuberculin PPD] 0.1mL Intradermal 1 time For PPD 2nd Step Give 2nd Step PPD Day 1 and Read results Day 3 (schedule 7 days after 1st READ) 0.1mL 11/25 Active 2023 55366 47435 0 1 time Intrad ermal False Tylenol 325 mg tablet 2 tabs By Mouth Every 4 hours as needed For Pain DO NOT EXCEED 3000 MG APAP/24 Hours 2 tabs 2023 Active 2023 20055 57279 0 Every 4 hours as needed By Mouth False Tylenol 325 mg tablet 2 tabs By Mouth Every 4 hours as needed For Fever >100 DO NOT EXCEED 3000 MG APAP/24 Hours 2 tabs 2023 Active 2023 35151 92129 0 Every 4 hours as needed By Mouth False Dulcolax (bisacodyl) 10 mg rectal suppository One Suppository per rectum PRN if Milk of Magnisia ineffective. Give on day 5 of no BM 1 sup 2023 Active 2023 43999 13424 1 Daily as needed Rectal False Fleet Enema 19 gram-7 gram/118 mL Administer per rectum PRN one time if dulcolax suppository not effective. Give on day 6 of no BM 1 2023 Active 2023 00203 92930 6 Daily as needed Rectal False Dextrose 50 % in water (D50W) intravenous solution [generic] Dextrose 50% reyes 20-50 ml (slow push) Intravenous if Glucagon not effective after 15 minutes. CALL 911 for ED Evaluation. 50% reyes 2023 Active 2023 86359 70183 9 Intrav enous False Glucagon (HCl) Emergency Kit 1 mg solution for injection Administer Glucagon 1 mg Intramuscular if 15 minutes after GLucose Gel is administered Glucose remains less than 70 1 mg 2023 Active 2023 50870 64024 2 Intram uscula r False Glucose Gel 40 % oral gel [Dextrose] PRN If resident is unable to swallow (with or without symptoms) and Glucose results less than 70 give GLucose 40% Gel 1 tube orally - Recheck Glucose 15 minutes after administratio n. 1 tube 2023 Active 2023 24446 89313 8 By Mouth False Lorazepam 0.5 mg tablet [generic] 0.5 mg By Mouth Every 8 hours as needed For Anxiety 0.5 mg 2023 Active 2023 17774 51715 0 Every 8 hours as needed By Mouth False Potassium chloride ER 20 mEq tablet,exte nded release [generic] 40 meq By Mouth Once daily For Hypokalemia 40 meq 2023 Active 2023 58059 67475 1 Once daily By Mouth False Colesevelam 625 mg tablet [generic] 1250 mg By Mouth Twice daily For TYPE 2 DIABETES MELLITUS WITHOUT COMPLICATIONS 1250 mg 2023 Active 2023 86066 53386 1 Twice daily By Mouth E11.9 False Pioglitazon e 15 mg tablet [generic] 15 mg By Mouth Once daily For TYPE 2 DIABETES MELLITUS WITHOUT COMPLICATIONS 15 mg 2023 Active 2023 59806 71295 1 Once daily By Mouth E11.9 False Cholecalcif hardeep (vitamin D3) 50 mcg (2,000 unit) tablet [generic] 50 mcg By Mouth Once daily For Supplement 50 mcg 2023 Active 2023 85635 63253 1 Once daily By Mouth False Colchicine 0.6 mg tablet [generic] 0.6 mg By Mouth Twice daily As Needed For Gout 0.6 mg 2023 Active 2023 08309 88755 4 Twice daily By Mouth False Levothyroxi ne 200 mcg tablet [generic] 200 mcg By Mouth Once daily For Hypothyroidis m 200 mcg 2023 Active 2023 29910 54405 0 Once daily By Mouth False Ondansetron 4 mg disintegrat ing tablet [generic] 4 mg By Mouth Every 6 hours as needed For Nausea 4 mg 2023 Active 2023 55820 93375 4 Every 6 hours as needed By Mouth False Docusate sodium 100 mg capsule [generic] 100 mg By Mouth Twice daily For Constipation 100 mg 2023 Active 2023 73035 59219 1 Twice daily By Mouth False Oxycodone 5 mg tablet [generic] 5 mg By Mouth Every 6 hours as needed For Pain 5 mg 11/12 Inactiv e 2023 88815 07984 1 Every 6 hours as needed By Mouth False Oxycodone 5 mg tablet [generic] 5 mg By Mouth Every 6 hours as needed For Pain 5 mg 2023 Active 2023 48231 53728 1 Every 6 hours as needed By Mouth False Milk of Magnesia 400 mg/5 mL oral suspension 30 ml By Mouth one time per day as needed if no BM x 3 days For Constipation 30 ml 2023 00/00 /0000 Active 2023 61522 84741 2 By Mouth False VITAL SIGNS Date Time Diastolic blood pressure Systolic blood pressure Body height Body weight Temperature SpO2 Blood Sugar Pulse Respirations 918 57477 5 75.00 mm[Hg] - Sitting 140.00 mm[Hg] - Sitting 65 NI 98.00 Tympanic 95.00 % 102.00 /min 18.00/min 918 63995 9
--- OUTSIDE RECORDS SUMMARY | 2023-12-14 00:06 | External Medical Summary | Continuity Of Care Document ---
Author Name Unknown Address [address] [address] Organization [facility] [place] () Care Team Providers Care Kitchen Operator Name Role Phone DO Parson Amy Primary Care Provider [phone] Allergies Allergy Reaction Start Date End Date [...] Day 3 0.1 mL 11/15 Active 2023 22942 50500 0 1 time Intrad ermal False Tubersol 5 tub. unit/0.1 mL intradermal injection solution [Tuberculin PPD] 0.1mL Intradermal 1 time For PPD 2nd Step Give 2nd Step PPD Day 1 and Read results Day 3 (schedule 7 days after 1st READ) 0.1mL 11/25 Active 2023 31833 77760 0 1 time Intrad ermal False Tylenol 325 mg tablet 2 tabs By Mouth Every 4 hours as needed For Pain DO NOT EXCEED 3000 MG APAP/24 Hours 2 tabs 2023 Active 2023 25278 66244 0 Every 4 hours as needed By Mouth False Tylenol 325 mg tablet 2 tabs By Mouth Every 4 hours as needed For Fever >100 DO NOT EXCEED 3000 MG APAP/24 Hours 2 tabs 2023 Active 2023 13998 64167 0 Every 4 hours as needed By Mouth False Dulcolax (bisacodyl) 10 mg rectal suppository One Suppository per rectum PRN if Milk of Magnisia ineffective. Give on day 5 of no BM 1 sup 2023 Active 2023 72474 98452 1 Daily as needed Rectal False Fleet Enema 19 gram-7 gram/118 mL Administer per rectum PRN one time if dulcolax suppository not effective. Give on day 6 of no BM 1 2023 Active 2023 90908 97466 6 Daily as needed Rectal False Dextrose 50 % in water (D50W) intravenous solution [generic] Dextrose 50% reyes 20-50 ml (slow push) Intravenous if Glucagon not effective after 15 minutes. CALL 911 for ED Evaluation. 50% reyes 2023 Active 2023 43165 30369 9 Intrav enous False Glucagon (HCl) Emergency Kit 1 mg solution for injection Administer Glucagon 1 mg Intramuscular if 15 minutes after GLucose Gel is administered Glucose remains less than 70 1 mg 2023 Active 2023 79954 89620 2 Intram uscula r False Glucose Gel 40 % oral gel [Dextrose] PRN If resident is unable to swallow (with or without symptoms) and Glucose results less than 70 give GLucose 40% Gel 1 tube orally - Recheck Glucose 15 minutes after administratio n. 1 tube 2023 Active 2023 82349 85148 8 By Mouth False Lorazepam 0.5 mg tablet [generic] 0.5 mg By Mouth Every 8 hours as needed For Anxiety 0.5 mg 2023 Active 2023 29672 67467 0 Every 8 hours as needed By Mouth False Potassium chloride ER 20 mEq tablet,exte nded release [generic] 40 meq By Mouth Once daily For Hypokalemia 40 meq 2023 Active 2023 46979 67385 1 Once daily By Mouth False Colesevelam 625 mg tablet [generic] 1250 mg By Mouth Twice daily For TYPE 2 DIABETES MELLITUS WITHOUT COMPLICATIONS 1250 mg 2023 Active 2023 63153 53272 1 Twice daily By Mouth E11.9 False Pioglitazon e 15 mg tablet [generic] 15 mg By Mouth Once daily For TYPE 2 DIABETES MELLITUS WITHOUT COMPLICATIONS 15 mg 2023 Active 2023 60467 46066 1 Once daily By Mouth E11.9 False Cholecalcif hardeep (vitamin D3) 50 mcg (2,000 unit) tablet [generic] 50 mcg By Mouth Once daily For Supplement 50 mcg 2023 Active 2023 11549 34242 1 Once daily By Mouth False Colchicine 0.6 mg tablet [generic] 0.6 mg By Mouth Twice daily As Needed For Gout 0.6 mg 2023 Active 2023 34251 97658 4 Twice daily By Mouth False Levothyroxi ne 200 mcg tablet [generic] 200 mcg By Mouth Once daily For Hypothyroidis m 200 mcg 2023 Active 2023 97997 48779 0 Once daily By Mouth False Ondansetron 4 mg disintegrat ing tablet [generic] 4 mg By Mouth Every 6 hours as needed For Nausea 4 mg 2023 Active 2023 69565 38028 4 Every 6 hours as needed By Mouth False Docusate sodium 100 mg capsule [generic] 100 mg By Mouth Twice daily For Constipation 100 mg 2023 Active 2023 93157 56740 1 Twice daily By Mouth False Oxycodone 5 mg tablet [generic] 5 mg By Mouth Every 6 hours as needed For Pain 5 mg 11/12 Inactiv e 2023 44438 62968 1 Every 6 hours as needed By Mouth False Oxycodone 5 mg tablet [generic] 5 mg By Mouth Every 6 hours as needed For Pain 5 mg 2023 Active 2023 70035 52274 1 Every 6 hours as needed By Mouth False Milk of Magnesia 400 mg/5 mL oral suspension 30 ml By Mouth one time per day as needed if no BM x 3 days For Constipation 30 ml 2023 00/00 /0000 Active 2023 95842 16351 2 By Mouth False VITAL SIGNS Date Time Diastolic blood pressure Systolic blood pressure Body height Body weight Temperature SpO2 Blood Sugar Pulse Respirations 918 93065 5 75.00 mm[Hg] - Sitting 140.00 mm[Hg] - Sitting 65 NI 98.00 Tympanic 95.00 % 102.00 /min 18.00/min 918 12775 9
--- OUTSIDE RECORDS SUMMARY | 2023-12-14 00:06 | External Medical Summary | Continuity Of Care Document ---
Author Name Unknown Address [address] [address] Organization [facility] () Care Team Providers Care Facility Maintenance Worker Name Role Phone DO Parson Amy Primary Care Provider [phone] Allergies Allergy Reaction Start Date End Date [...] Day 3 0.1 mL 11/15 Active 2023 52673 26169 0 1 time Intrad ermal False Tubersol 5 tub. unit/0.1 mL intradermal injection solution [Tuberculin PPD] 0.1mL Intradermal 1 time For PPD 2nd Step Give 2nd Step PPD Day 1 and Read results Day 3 (schedule 7 days after 1st READ) 0.1mL 11/25 Active 2023 18621 11211 0 1 time Intrad ermal False Tylenol 325 mg tablet 2 tabs By Mouth Every 4 hours as needed For Pain DO NOT EXCEED 3000 MG APAP/24 Hours 2 tabs 2023 Active 2023 09078 40876 0 Every 4 hours as needed By Mouth False Tylenol 325 mg tablet 2 tabs By Mouth Every 4 hours as needed For Fever >100 DO NOT EXCEED 3000 MG APAP/24 Hours 2 tabs 2023 Active 2023 07840 96755 0 Every 4 hours as needed By Mouth False Dulcolax (bisacodyl) 10 mg rectal suppository One Suppository per rectum PRN if Milk of Magnisia ineffective. Give on day 5 of no BM 1 sup 2023 Active 2023 56045 41320 1 Daily as needed Rectal False Fleet Enema 19 gram-7 gram/118 mL Administer per rectum PRN one time if dulcolax suppository not effective. Give on day 6 of no BM 1 2023 Active 2023 27814 79055 6 Daily as needed Rectal False Dextrose 50 % in water (D50W) intravenous solution [generic] Dextrose 50% reyes 20-50 ml (slow push) Intravenous if Glucagon not effective after 15 minutes. CALL 911 for ED Evaluation. 50% reyes 2023 Active 2023 64414 76811 9 Intrav enous False Glucagon (HCl) Emergency Kit 1 mg solution for injection Administer Glucagon 1 mg Intramuscular if 15 minutes after GLucose Gel is administered Glucose remains less than 70 1 mg 2023 Active 2023 14994 58888 2 Intram uscula r False Glucose Gel 40 % oral gel [Dextrose] PRN If resident is unable to swallow (with or without symptoms) and Glucose results less than 70 give GLucose 40% Gel 1 tube orally - Recheck Glucose 15 minutes after administratio n. 1 tube 2023 Active 2023 32057 88611 8 By Mouth False Lorazepam 0.5 mg tablet [generic] 0.5 mg By Mouth Every 8 hours as needed For Anxiety 0.5 mg 2023 Active 2023 30729 05852 0 Every 8 hours as needed By Mouth False Potassium chloride ER 20 mEq tablet,exte nded release [generic] 40 meq By Mouth Once daily For Hypokalemia 40 meq 2023 Active 2023 02520 04783 1 Once daily By Mouth False Colesevelam 625 mg tablet [generic] 1250 mg By Mouth Twice daily For TYPE 2 DIABETES MELLITUS WITHOUT COMPLICATIONS 1250 mg 2023 Active 2023 74116 35171 1 Twice daily By Mouth E11.9 False Pioglitazon e 15 mg tablet [generic] 15 mg By Mouth Once daily For TYPE 2 DIABETES MELLITUS WITHOUT COMPLICATIONS 15 mg 2023 Active 2023 69243 29831 1 Once daily By Mouth E11.9 False Cholecalcif hardeep (vitamin D3) 50 mcg (2,000 unit) tablet [generic] 50 mcg By Mouth Once daily For Supplement 50 mcg 2023 Active 2023 34849 98293 1 Once daily By Mouth False Colchicine 0.6 mg tablet [generic] 0.6 mg By Mouth Twice daily As Needed For Gout 0.6 mg 2023 Active 2023 19949 93646 4 Twice daily By Mouth False Levothyroxi ne 200 mcg tablet [generic] 200 mcg By Mouth Once daily For Hypothyroidis m 200 mcg 2023 Active 2023 88514 60272 0 Once daily By Mouth False Ondansetron 4 mg disintegrat ing tablet [generic] 4 mg By Mouth Every 6 hours as needed For Nausea 4 mg 2023 Active 2023 94149 87286 4 Every 6 hours as needed By Mouth False Docusate sodium 100 mg capsule [generic] 100 mg By Mouth Twice daily For Constipation 100 mg 2023 Active 2023 55514 31066 1 Twice daily By Mouth False Oxycodone 5 mg tablet [generic] 5 mg By Mouth Every 6 hours as needed For Pain 5 mg 11/12 Inactiv e 2023 83440 02238 1 Every 6 hours as needed By Mouth False Oxycodone 5 mg tablet [generic] 5 mg By Mouth Every 6 hours as needed For Pain 5 mg 2023 Active 2023 76898 43567 1 Every 6 hours as needed By Mouth False VITAL SIGNS Date Time Diastolic blood pressure Systolic blood pressure Body height Body weight Temperature SpO2 Blood Sugar Pulse Respirations 07551 918 52089 5 75.00 mm[Hg] - Sitting 140.00 mm[Hg] - Sitting 65 NI 98.00 Tympanic 95.00 % 102.00 /min 18.00/min 8 19782 9
--- OUTSIDE RECORDS SUMMARY | 2023-12-14 00:06 | External Medical Summary | Continuity Of Care Document ---
Author Name Unknown Address [address] [address] Organization [facility] () Care Team Providers Care Senior Automation Engineer Name Role Phone DO Parson Amy Primary Care Provider [phone] Allergies Allergy Reaction Start Date End Date [...] Day 3 0.1 mL 11/15 Active 2023 17673 42541 0 1 time Intrad ermal False Tubersol 5 tub. unit/0.1 mL intradermal injection solution [Tuberculin PPD] 0.1mL Intradermal 1 time For PPD 2nd Step Give 2nd Step PPD Day 1 and Read results Day 3 (schedule 7 days after 1st READ) 0.1mL 11/25 Active 2023 45173 25454 0 1 time Intrad ermal False Tylenol 325 mg tablet 2 tabs By Mouth Every 4 hours as needed For Pain DO NOT EXCEED 3000 MG APAP/24 Hours 2 tabs 2023 Active 2023 30071 77068 0 Every 4 hours as needed By Mouth False Tylenol 325 mg tablet 2 tabs By Mouth Every 4 hours as needed For Fever >100 DO NOT EXCEED 3000 MG APAP/24 Hours 2 tabs 2023 Active 2023 05889 97550 0 Every 4 hours as needed By Mouth False Dulcolax (bisacodyl) 10 mg rectal suppository One Suppository per rectum PRN if Milk of Magnisia ineffective. Give on day 5 of no BM 1 sup 2023 Active 2023 20261 65799 1 Daily as needed Rectal False Fleet Enema 19 gram-7 gram/118 mL Administer per rectum PRN one time if dulcolax suppository not effective. Give on day 6 of no BM 1 2023 Active 2023 40880 86430 6 Daily as needed Rectal False Dextrose 50 % in water (D50W) intravenous solution [generic] Dextrose 50% reyes 20-50 ml (slow push) Intravenous if Glucagon not effective after 15 minutes. CALL 911 for ED Evaluation. 50% reyes 2023 Active 2023 73880 53788 9 Intrav enous False Glucagon (HCl) Emergency Kit 1 mg solution for injection Administer Glucagon 1 mg Intramuscular if 15 minutes after GLucose Gel is administered Glucose remains less than 70 1 mg 2023 Active 2023 89563 32234 2 Intram uscula r False Glucose Gel 40 % oral gel [Dextrose] PRN If resident is unable to swallow (with or without symptoms) and Glucose results less than 70 give GLucose 40% Gel 1 tube orally - Recheck Glucose 15 minutes after administratio n. 1 tube 2023 Active 2023 63457 04403 8 By Mouth False Lorazepam 0.5 mg tablet [generic] 0.5 mg By Mouth Every 8 hours as needed For Anxiety 0.5 mg 2023 Active 2023 13220 39387 0 Every 8 hours as needed By Mouth False Potassium chloride ER 20 mEq tablet,exte nded release [generic] 40 meq By Mouth Once daily For Hypokalemia 40 meq 2023 Active 2023 16872 36910 1 Once daily By Mouth False Colesevelam 625 mg tablet [generic] 1250 mg By Mouth Twice daily For TYPE 2 DIABETES MELLITUS WITHOUT COMPLICATIONS 1250 mg 2023 Active 2023 05479 61937 1 Twice daily By Mouth E11.9 False Pioglitazon e 15 mg tablet [generic] 15 mg By Mouth Once daily For TYPE 2 DIABETES MELLITUS WITHOUT COMPLICATIONS 15 mg 2023 Active 2023 01367 34714 1 Once daily By Mouth E11.9 False Cholecalcif hardeep (vitamin D3) 50 mcg (2,000 unit) tablet [generic] 50 mcg By Mouth Once daily For Supplement 50 mcg 2023 Active 2023 98919 60962 1 Once daily By Mouth False Colchicine 0.6 mg tablet [generic] 0.6 mg By Mouth Twice daily As Needed For Gout 0.6 mg 2023 Active 2023 61458 49840 4 Twice daily By Mouth False Levothyroxi ne 200 mcg tablet [generic] 200 mcg By Mouth Once daily For Hypothyroidis m 200 mcg 2023 Active 2023 80924 21752 0 Once daily By Mouth False Ondansetron 4 mg disintegrat ing tablet [generic] 4 mg By Mouth Every 6 hours as needed For Nausea 4 mg 2023 Active 2023 92378 46143 4 Every 6 hours as needed By Mouth False Docusate sodium 100 mg capsule [generic] 100 mg By Mouth Twice daily For Constipation 100 mg 2023 Active 2023 07992 47584 1 Twice daily By Mouth False Oxycodone 5 mg tablet [generic] 5 mg By Mouth Every 6 hours as needed For Pain 5 mg 11/12 Inactiv e 2023 28408 61391 1 Every 6 hours as needed By Mouth False Oxycodone 5 mg tablet [generic] 5 mg By Mouth Every 6 hours as needed For Pain 5 mg 2023 Active 2023 08360 77266 1 Every 6 hours as needed By Mouth False Milk of Magnesia 400 mg/5 mL oral suspension 30 ml By Mouth one time per day as needed if no BM x 3 days For Constipation 30 ml 2023 00/00 /0000 Active 2023 71968 19791 2 By Mouth False VITAL SIGNS Date Time Diastolic blood pressure Systolic blood pressure Body height Body weight Temperature SpO2 Blood Sugar Pulse Respirations 918 39063 5 75.00 mm[Hg] - Sitting 140.00 mm[Hg] - Sitting 65 NI 98.00 Tympanic 95.00 % 102.00 /min 18.00/min 918 58811 9
--- OUTSIDE RECORDS SUMMARY | 2023-12-14 00:06 | External Medical Summary | Continuity Of Care Document ---
Author Name Unknown Address [address] [address] Organization [facility] () Care Team Providers Care Litigation Attorney Name Role Phone DO Parson Amy Primary Care Provider [phone] Allergies Allergy Reaction Start Date End Date [...] Day 3 0.1 mL 11/15 Active 2023 36880 91696 0 1 time Intrad ermal False Tubersol 5 tub. unit/0.1 mL intradermal injection solution [Tuberculin PPD] 0.1mL Intradermal 1 time For PPD 2nd Step Give 2nd Step PPD Day 1 and Read results Day 3 (schedule 7 days after 1st READ) 0.1mL 11/25 Active 2023 00064 93194 0 1 time Intrad ermal False Tylenol 325 mg tablet 2 tabs By Mouth Every 4 hours as needed For Pain DO NOT EXCEED 3000 MG APAP/24 Hours 2 tabs 2023 Active 2023 12805 87430 0 Every 4 hours as needed By Mouth False Tylenol 325 mg tablet 2 tabs By Mouth Every 4 hours as needed For Fever >100 DO NOT EXCEED 3000 MG APAP/24 Hours 2 tabs 2023 Active 2023 41816 94828 0 Every 4 hours as needed By Mouth False Dulcolax (bisacodyl) 10 mg rectal suppository One Suppository per rectum PRN if Milk of Magnisia ineffective. Give on day 5 of no BM 1 sup 2023 Active 2023 77497 27514 1 Daily as needed Rectal False Fleet Enema 19 gram-7 gram/118 mL Administer per rectum PRN one time if dulcolax suppository not effective. Give on day 6 of no BM 1 2023 Active 2023 43390 65602 6 Daily as needed Rectal False Dextrose 50 % in water (D50W) intravenous solution [generic] Dextrose 50% reyes 20-50 ml (slow push) Intravenous if Glucagon not effective after 15 minutes. CALL 911 for ED Evaluation. 50% reyes 2023 Active 2023 49116 60400 9 Intrav enous False Glucagon (HCl) Emergency Kit 1 mg solution for injection Administer Glucagon 1 mg Intramuscular if 15 minutes after GLucose Gel is administered Glucose remains less than 70 1 mg 2023 Active 2023 34875 50866 2 Intram uscula r False Glucose Gel 40 % oral gel [Dextrose] PRN If resident is unable to swallow (with or without symptoms) and Glucose results less than 70 give GLucose 40% Gel 1 tube orally - Recheck Glucose 15 minutes after administratio n. 1 tube 2023 Active 2023 34906 71970 8 By Mouth False Lorazepam 0.5 mg tablet [generic] 0.5 mg By Mouth Every 8 hours as needed For Anxiety 0.5 mg 2023 Active 2023 80586 18441 0 Every 8 hours as needed By Mouth False Potassium chloride ER 20 mEq tablet,exte nded release [generic] 40 meq By Mouth Once daily For Hypokalemia 40 meq 2023 Active 2023 85877 67056 1 Once daily By Mouth False Colesevelam 625 mg tablet [generic] 1250 mg By Mouth Twice daily For TYPE 2 DIABETES MELLITUS WITHOUT COMPLICATIONS 1250 mg 2023 Active 2023 97409 98970 1 Twice daily By Mouth E11.9 False Pioglitazon e 15 mg tablet [generic] 15 mg By Mouth Once daily For TYPE 2 DIABETES MELLITUS WITHOUT COMPLICATIONS 15 mg 2023 Active 2023 58810 14230 1 Once daily By Mouth E11.9 False Cholecalcif hardeep (vitamin D3) 50 mcg (2,000 unit) tablet [generic] 50 mcg By Mouth Once daily For Supplement 50 mcg 2023 Active 2023 51265 44754 1 Once daily By Mouth False Colchicine 0.6 mg tablet [generic] 0.6 mg By Mouth Twice daily As Needed For Gout 0.6 mg 2023 Active 2023 08441 63883 4 Twice daily By Mouth False Levothyroxi ne 200 mcg tablet [generic] 200 mcg By Mouth Once daily For Hypothyroidis m 200 mcg 2023 Active 2023 86844 70513 0 Once daily By Mouth False Ondansetron 4 mg disintegrat ing tablet [generic] 4 mg By Mouth Every 6 hours as needed For Nausea 4 mg 2023 Active 2023 13714 24066 4 Every 6 hours as needed By Mouth False Docusate sodium 100 mg capsule [generic] 100 mg By Mouth Twice daily For Constipation 100 mg 2023 Active 2023 21868 09960 1 Twice daily By Mouth False Oxycodone 5 mg tablet [generic] 5 mg By Mouth Every 6 hours as needed For Pain 5 mg 12/12 Active 2023 52474 35058 1 Every 6 hours as needed By Mouth False VITAL SIGNS Date Time Diastolic blood pressure Systolic blood pressure Body height Body weight Temperature SpO2 Blood Sugar Pulse Respirations 918 23894 5 75.00 mm[Hg] - Sitting 140.00 mm[Hg] - Sitting 65 NI 98.00 Tympanic 95.00 % 102.00 /min 18.00/min 44161 918 12128 9
--- OUTSIDE RECORDS SUMMARY | 2023-12-14 00:06 | External Medical Summary | Continuity Of Care Document ---
Author Name Unknown Address [address] [address] Organization [facility] [place] () Care Team Providers Care District Manager Primary Care Sales Name Role Phone DO Parson Amy Primary Care Provider [phone] Allergies Allergy Reaction Start Date End Date [...] Day 3 0.1 mL 11/15 Active 2023 26315 38811 0 1 time Intrad ermal False Tubersol 5 tub. unit/0.1 mL intradermal injection solution [Tuberculin PPD] 0.1mL Intradermal 1 time For PPD 2nd Step Give 2nd Step PPD Day 1 and Read results Day 3 (schedule 7 days after 1st READ) 0.1mL 11/25 Active 2023 94604 28718 0 1 time Intrad ermal False Tylenol 325 mg tablet 2 tabs By Mouth Every 4 hours as needed For Pain DO NOT EXCEED 3000 MG APAP/24 Hours 2 tabs 2023 Active 2023 98942 32839 0 Every 4 hours as needed By Mouth False Tylenol 325 mg tablet 2 tabs By Mouth Every 4 hours as needed For Fever >100 DO NOT EXCEED 3000 MG APAP/24 Hours 2 tabs 2023 Active 2023 46739 80859 0 Every 4 hours as needed By Mouth False Dulcolax (bisacodyl) 10 mg rectal suppository One Suppository per rectum PRN if Milk of Magnisia ineffective. Give on day 5 of no BM 1 sup 2023 Active 2023 28140 07993 1 Daily as needed Rectal False Fleet Enema 19 gram-7 gram/118 mL Administer per rectum PRN one time if dulcolax suppository not effective. Give on day 6 of no BM 1 2023 Active 2023 78527 75733 6 Daily as needed Rectal False Dextrose 50 % in water (D50W) intravenous solution [generic] Dextrose 50% reyes 20-50 ml (slow push) Intravenous if Glucagon not effective after 15 minutes. CALL 911 for ED Evaluation. 50% reyes 2023 Active 2023 11498 52917 9 Intrav enous False Glucagon (HCl) Emergency Kit 1 mg solution for injection Administer Glucagon 1 mg Intramuscular if 15 minutes after GLucose Gel is administered Glucose remains less than 70 1 mg 2023 Active 2023 67508 80203 2 Intram uscula r False Glucose Gel 40 % oral gel [Dextrose] PRN If resident is unable to swallow (with or without symptoms) and Glucose results less than 70 give GLucose 40% Gel 1 tube orally - Recheck Glucose 15 minutes after administratio n. 1 tube 2023 Active 2023 79076 80349 8 By Mouth False Lorazepam 0.5 mg tablet [generic] 0.5 mg By Mouth Every 8 hours as needed For Anxiety 0.5 mg 2023 Active 2023 25152 02911 0 Every 8 hours as needed By Mouth False Potassium chloride ER 20 mEq tablet,exte nded release [generic] 40 meq By Mouth Once daily For Hypokalemia 40 meq 2023 Active 2023 81977 60354 1 Once daily By Mouth False Colesevelam 625 mg tablet [generic] 1250 mg By Mouth Twice daily For TYPE 2 DIABETES MELLITUS WITHOUT COMPLICATIONS 1250 mg 2023 Active 2023 56758 28049 1 Twice daily By Mouth E11.9 False Pioglitazon e 15 mg tablet [generic] 15 mg By Mouth Once daily For TYPE 2 DIABETES MELLITUS WITHOUT COMPLICATIONS 15 mg 2023 Active 2023 17117 28135 1 Once daily By Mouth E11.9 False Cholecalcif hardeep (vitamin D3) 50 mcg (2,000 unit) tablet [generic] 50 mcg By Mouth Once daily For Supplement 50 mcg 2023 Active 2023 97562 14118 1 Once daily By Mouth False Colchicine 0.6 mg tablet [generic] 0.6 mg By Mouth Twice daily As Needed For Gout 0.6 mg 2023 Active 2023 55550 25337 4 Twice daily By Mouth False Levothyroxi ne 200 mcg tablet [generic] 200 mcg By Mouth Once daily For Hypothyroidis m 200 mcg 2023 Active 2023 20936 78422 0 Once daily By Mouth False Ondansetron 4 mg disintegrat ing tablet [generic] 4 mg By Mouth Every 6 hours as needed For Nausea 4 mg 2023 Active 2023 05957 68416 4 Every 6 hours as needed By Mouth False Docusate sodium 100 mg capsule [generic] 100 mg By Mouth Twice daily For Constipation 100 mg 2023 Active 2023 05224 44958 1 Twice daily By Mouth False Oxycodone 5 mg tablet [generic] 5 mg By Mouth Every 6 hours as needed For Pain 5 mg 11/12 Inactiv e 2023 86968 00704 1 Every 6 hours as needed By Mouth False Oxycodone 5 mg tablet [generic] 5 mg By Mouth Every 6 hours as needed For Pain 5 mg 2023 Active 2023 34014 82199 1 Every 6 hours as needed By Mouth False VITAL SIGNS Date Time Diastolic blood pressure Systolic blood pressure Body height Body weight Temperature SpO2 Blood Sugar Pulse Respirations 45266 918 41870 5 75.00 mm[Hg] - Sitting 140.00 mm[Hg] - Sitting 65 NI 98.00 Tympanic 95.00 % 102.00 /min 18.00/min 8 95487 9
--- OUTSIDE RECORDS SUMMARY | 2023-12-14 00:06 | External Medical Summary | Continuity Of Care Document ---
Author Name Unknown Address [address] [address] Organization [facility] () Care Team Providers Care Senior Radiation Therapist Name Role Phone DO Parson Amy Primary Care Provider [phone] Allergies Allergy Reaction Start Date End Date Status SULFA (SULFONAMIDE ANTIBIOTICS) 00/0 Active BACLOFEN Active TRAMADOL Active GABAPENTIN Active
--- OUTSIDE RECORDS SUMMARY | 2023-12-14 00:06 | External Medical Summary | Continuity Of Care Document ---
Author Name Unknown Address [address] [address] [facility] [place] [place] () Care Team Providers Care Labeling Associate Name Role Phone DO Parson Amy Primary Care Provider [phone] Allergies Allergy Reaction Start Date End Date [...] Day 3 0.1 mL 11/15 Active 2023 37948 35305 0 1 time Intrad ermal False Tubersol 5 tub. unit/0.1 mL intradermal injection solution [Tuberculin PPD] 0.1mL Intradermal 1 time For PPD 2nd Step Give 2nd Step PPD Day 1 and Read results Day 3 (schedule 7 days after 1st READ) 0.1mL 11/25 Active 2023 93821 40810 0 1 time Intrad ermal False Tylenol 325 mg tablet 2 tabs By Mouth Every 4 hours as needed For Pain DO NOT EXCEED 3000 MG APAP/24 Hours 2 tabs 2023 Active 2023 08122 74164 0 Every 4 hours as needed By Mouth False Tylenol 325 mg tablet 2 tabs By Mouth Every 4 hours as needed For Fever >100 DO NOT EXCEED 3000 MG APAP/24 Hours 2 tabs 2023 Active 2023 10124 16292 0 Every 4 hours as needed By Mouth False Dulcolax (bisacodyl) 10 mg rectal suppository One Suppository per rectum PRN if Milk of Magnisia ineffective. Give on day 5 of no BM 1 sup 2023 Active 2023 05204 35251 1 Daily as needed Rectal False Fleet Enema 19 gram-7 gram/118 mL Administer per rectum PRN one time if dulcolax suppository not effective. Give on day 6 of no BM 1 2023 Active 2023 94036 29052 6 Daily as needed Rectal False Dextrose 50 % in water (D50W) intravenous solution [generic] Dextrose 50% reyes 20-50 ml (slow push) Intravenous if Glucagon not effective after 15 minutes. CALL 911 for ED Evaluation. 50% reyes 2023 Active 2023 95195 92677 9 Intrav enous False Glucagon (HCl) Emergency Kit 1 mg solution for injection Administer Glucagon 1 mg Intramuscular if 15 minutes after GLucose Gel is administered Glucose remains less than 70 1 mg 2023 Active 2023 63990 52673 2 Intram uscula r False Glucose Gel 40 % oral gel [Dextrose] PRN If resident is unable to swallow (with or without symptoms) and Glucose results less than 70 give GLucose 40% Gel 1 tube orally - Recheck Glucose 15 minutes after administratio n. 1 tube 2023 Active 2023 92075 89151 8 By Mouth False Lorazepam 0.5 mg tablet [generic] 0.5 mg By Mouth Every 8 hours as needed For Anxiety 0.5 mg 2023 Active 2023 45357 19931 0 Every 8 hours as needed By Mouth False Potassium chloride ER 20 mEq tablet,exte nded release [generic] 40 meq By Mouth Once daily For Hypokalemia 40 meq 2023 Active 2023 90857 29711 1 Once daily By Mouth False Colesevelam 625 mg tablet [generic] 1250 mg By Mouth Twice daily For TYPE 2 DIABETES MELLITUS WITHOUT COMPLICATIONS 1250 mg 2023 Active 2023 02029 14424 1 Twice daily By Mouth E11.9 False Pioglitazon e 15 mg tablet [generic] 15 mg By Mouth Once daily For TYPE 2 DIABETES MELLITUS WITHOUT COMPLICATIONS 15 mg 2023 Active 2023 04297 41038 1 Once daily By Mouth E11.9 False Cholecalcif hardeep (vitamin D3) 50 mcg (2,000 unit) tablet [generic] 50 mcg By Mouth Once daily For Supplement 50 mcg 2023 Active 2023 06866 02968 1 Once daily By Mouth False Colchicine 0.6 mg tablet [generic] 0.6 mg By Mouth Twice daily As Needed For Gout 0.6 mg 2023 Active 2023 49593 82267 4 Twice daily By Mouth False Levothyroxi ne 200 mcg tablet [generic] 200 mcg By Mouth Once daily For Hypothyroidis m 200 mcg 2023 Active 2023 87058 43087 0 Once daily By Mouth False Ondansetron 4 mg disintegrat ing tablet [generic] 4 mg By Mouth Every 6 hours as needed For Nausea 4 mg 2023 Active 2023 78099 18734 4 Every 6 hours as needed By Mouth False Docusate sodium 100 mg capsule [generic] 100 mg By Mouth Twice daily For Constipation 100 mg 2023 Active 2023 25314 66461 1 Twice daily By Mouth False Oxycodone 5 mg tablet [generic] 5 mg By Mouth Every 6 hours as needed For Pain 5 mg 11/12 Inactiv e 2023 33901 11148 1 Every 6 hours as needed By Mouth False Oxycodone 5 mg tablet [generic] 5 mg By Mouth Every 6 hours as needed For Pain 5 mg 2023 Active 2023 62264 33507 1 Every 6 hours as needed By Mouth False VITAL SIGNS Date Time Diastolic blood pressure Systolic blood pressure Body height Body weight Temperature SpO2 Blood Sugar Pulse Respirations 33779 918 59296 5 75.00 mm[Hg] - Sitting 140.00 mm[Hg] - Sitting 65 NI 98.00 Tympanic 95.00 % 102.00 /min 18.00/min 8 98439 9
--- OUTSIDE RECORDS SUMMARY | 2023-12-14 00:06 | External Medical Summary | Continuity Of Care Document ---
Author Name Unknown Address [address] [address] [facility] () Care Team Providers Care Soda Dispenser Name Role Phone DO Parson Amy Primary Care Provider [phone] Allergies Allergy Reaction Start Date End Date [...] Day 3 0.1 mL 11/15 Active 2023 24947 66982 0 1 time Intrad ermal False Tubersol 5 tub. unit/0.1 mL intradermal injection solution [Tuberculin PPD] 0.1mL Intradermal 1 time For PPD 2nd Step Give 2nd Step PPD Day 1 and Read results Day 3 (schedule 7 days after 1st READ) 0.1mL 11/25 Active 2023 59644 19375 0 1 time Intrad ermal False Tylenol 325 mg tablet 2 tabs By Mouth Every 4 hours as needed For Pain DO NOT EXCEED 3000 MG APAP/24 Hours 2 tabs 2023 Active 2023 20640 65300 0 Every 4 hours as needed By Mouth False Tylenol 325 mg tablet 2 tabs By Mouth Every 4 hours as needed For Fever >100 DO NOT EXCEED 3000 MG APAP/24 Hours 2 tabs 2023 Active 2023 55708 44424 0 Every 4 hours as needed By Mouth False Dulcolax (bisacodyl) 10 mg rectal suppository One Suppository per rectum PRN if Milk of Magnisia ineffective. Give on day 5 of no BM 1 sup 2023 Active 2023 95795 94437 1 Daily as needed Rectal False Fleet Enema 19 gram-7 gram/118 mL Administer per rectum PRN one time if dulcolax suppository not effective. Give on day 6 of no BM 1 2023 Active 2023 40340 15743 6 Daily as needed Rectal False Dextrose 50 % in water (D50W) intravenous solution [generic] Dextrose 50% reyes 20-50 ml (slow push) Intravenous if Glucagon not effective after 15 minutes. CALL 911 for ED Evaluation. 50% reyes 2023 Active 2023 15243 94758 9 Intrav enous False Glucagon (HCl) Emergency Kit 1 mg solution for injection Administer Glucagon 1 mg Intramuscular if 15 minutes after GLucose Gel is administered Glucose remains less than 70 1 mg 2023 Active 2023 18778 73920 2 Intram uscula r False Glucose Gel 40 % oral gel [Dextrose] PRN If resident is unable to swallow (with or without symptoms) and Glucose results less than 70 give GLucose 40% Gel 1 tube orally - Recheck Glucose 15 minutes after administratio n. 1 tube 2023 Active 2023 80348 77275 8 By Mouth False Lorazepam 0.5 mg tablet [generic] 0.5 mg By Mouth Every 8 hours as needed For Anxiety 0.5 mg 2023 Active 2023 72135 28983 0 Every 8 hours as needed By Mouth False Potassium chloride ER 20 mEq tablet,exte nded release [generic] 40 meq By Mouth Once daily For Hypokalemia 40 meq 2023 Active 2023 13925 66557 1 Once daily By Mouth False Colesevelam 625 mg tablet [generic] 1250 mg By Mouth Twice daily For TYPE 2 DIABETES MELLITUS WITHOUT COMPLICATIONS 1250 mg 2023 Active 2023 60100 29935 1 Twice daily By Mouth E11.9 False Pioglitazon e 15 mg tablet [generic] 15 mg By Mouth Once daily For TYPE 2 DIABETES MELLITUS WITHOUT COMPLICATIONS 15 mg 2023 Active 2023 09604 55568 1 Once daily By Mouth E11.9 False Cholecalcif hardeep (vitamin D3) 50 mcg (2,000 unit) tablet [generic] 50 mcg By Mouth Once daily For Supplement 50 mcg 2023 Active 2023 83825 46859 1 Once daily By Mouth False Colchicine 0.6 mg tablet [generic] 0.6 mg By Mouth Twice daily As Needed For Gout 0.6 mg 2023 Active 2023 30894 83386 4 Twice daily By Mouth False Levothyroxi ne 200 mcg tablet [generic] 200 mcg By Mouth Once daily For Hypothyroidis m 200 mcg 2023 Active 2023 53175 63129 0 Once daily By Mouth False Ondansetron 4 mg disintegrat ing tablet [generic] 4 mg By Mouth Every 6 hours as needed For Nausea 4 mg 2023 Active 2023 89767 28323 4 Every 6 hours as needed By Mouth False Docusate sodium 100 mg capsule [generic] 100 mg By Mouth Twice daily For Constipation 100 mg 2023 Active 2023 65403 08585 1 Twice daily By Mouth False Oxycodone 5 mg tablet [generic] 5 mg By Mouth Every 6 hours as needed For Pain 5 mg 12/12 Active 2023 70241 02159 1 Every 6 hours as needed By Mouth False VITAL SIGNS Date Time Diastolic blood pressure Systolic blood pressure Body height Body weight Temperature SpO2 Blood Sugar Pulse Respirations 918 09920 5 75.00 mm[Hg] - Sitting 140.00 mm[Hg] - Sitting 65 NI 98.00 Tympanic 95.00 % 102.00 /min 18.00/min 69301 918 91657 9
--- OUTSIDE RECORDS SUMMARY | 2023-12-14 00:06 | External Medical Summary | Continuity Of Care Document ---
Author Name Unknown Address [address] [address] [facility] () Care Team Providers Care Carrot Buncher Name Role Phone DO Parson Amy Primary Care Provider [phone] Allergies Allergy Reaction Start Date End Date [...] Day 3 0.1 mL 11/15 Active 2023 33994 55145 0 1 time Intrad ermal False Tubersol 5 tub. unit/0.1 mL intradermal injection solution [Tuberculin PPD] 0.1mL Intradermal 1 time For PPD 2nd Step Give 2nd Step PPD Day 1 and Read results Day 3 (schedule 7 days after 1st READ) 0.1mL 11/25 Active 2023 50734 44404 0 1 time Intrad ermal False Tylenol 325 mg tablet 2 tabs By Mouth Every 4 hours as needed For Pain DO NOT EXCEED 3000 MG APAP/24 Hours 2 tabs 2023 Active 2023 52003 37898 0 Every 4 hours as needed By Mouth False Tylenol 325 mg tablet 2 tabs By Mouth Every 4 hours as needed For Fever >100 DO NOT EXCEED 3000 MG APAP/24 Hours 2 tabs 2023 Active 2023 77026 59467 0 Every 4 hours as needed By Mouth False Dulcolax (bisacodyl) 10 mg rectal suppository One Suppository per rectum PRN if Milk of Magnisia ineffective. Give on day 5 of no BM 1 sup 2023 Active 2023 02005 64317 1 Daily as needed Rectal False Fleet Enema 19 gram-7 gram/118 mL Administer per rectum PRN one time if dulcolax suppository not effective. Give on day 6 of no BM 1 2023 Active 2023 56503 42042 6 Daily as needed Rectal False Dextrose 50 % in water (D50W) intravenous solution [generic] Dextrose 50% reyes 20-50 ml (slow push) Intravenous if Glucagon not effective after 15 minutes. CALL 911 for ED Evaluation. 50% reyes 2023 Active 2023 10733 45643 9 Intrav enous False Glucagon (HCl) Emergency Kit 1 mg solution for injection Administer Glucagon 1 mg Intramuscular if 15 minutes after GLucose Gel is administered Glucose remains less than 70 1 mg 2023 Active 2023 76721 76999 2 Intram uscula r False Glucose Gel 40 % oral gel [Dextrose] PRN If resident is unable to swallow (with or without symptoms) and Glucose results less than 70 give GLucose 40% Gel 1 tube orally - Recheck Glucose 15 minutes after administratio n. 1 tube 2023 Active 2023 43864 38936 8 By Mouth False Lorazepam 0.5 mg tablet [generic] 0.5 mg By Mouth Every 8 hours as needed For Anxiety 0.5 mg 2023 Active 2023 03236 32060 0 Every 8 hours as needed By Mouth False Potassium chloride ER 20 mEq tablet,exte nded release [generic] 40 meq By Mouth Once daily For Hypokalemia 40 meq 2023 Active 2023 48876 40239 1 Once daily By Mouth False Colesevelam 625 mg tablet [generic] 1250 mg By Mouth Twice daily For TYPE 2 DIABETES MELLITUS WITHOUT COMPLICATIONS 1250 mg 2023 Active 2023 06505 30137 1 Twice daily By Mouth E11.9 False Pioglitazon e 15 mg tablet [generic] 15 mg By Mouth Once daily For TYPE 2 DIABETES MELLITUS WITHOUT COMPLICATIONS 15 mg 2023 Active 2023 44502 04154 1 Once daily By Mouth E11.9 False Cholecalcif hardeep (vitamin D3) 50 mcg (2,000 unit) tablet [generic] 50 mcg By Mouth Once daily For Supplement 50 mcg 2023 Active 2023 01341 80711 1 Once daily By Mouth False Colchicine 0.6 mg tablet [generic] 0.6 mg By Mouth Twice daily As Needed For Gout 0.6 mg 2023 Active 2023 74015 48056 4 Twice daily By Mouth False Levothyroxi ne 200 mcg tablet [generic] 200 mcg By Mouth Once daily For Hypothyroidis m 200 mcg 2023 Active 2023 03200 95087 0 Once daily By Mouth False Ondansetron 4 mg disintegrat ing tablet [generic] 4 mg By Mouth Every 6 hours as needed For Nausea 4 mg 2023 Active 2023 28821 73763 4 Every 6 hours as needed By Mouth False Docusate sodium 100 mg capsule [generic] 100 mg By Mouth Twice daily For Constipation 100 mg 2023 Active 2023 61652 44547 1 Twice daily By Mouth False Oxycodone 5 mg tablet [generic] 5 mg By Mouth Every 6 hours as needed For Pain 5 mg 11/12 Inactiv e 2023 30075 61873 1 Every 6 hours as needed By Mouth False Oxycodone 5 mg tablet [generic] 5 mg By Mouth Every 6 hours as needed For Pain 5 mg 2023 Active 2023 62982 07482 1 Every 6 hours as needed By Mouth False VITAL SIGNS Date Time Diastolic blood pressure Systolic blood pressure Body height Body weight Temperature SpO2 Blood Sugar Pulse Respirations 27172 918 54884 5 75.00 mm[Hg] - Sitting 140.00 mm[Hg] - Sitting 65 NI 98.00 Tympanic 95.00 % 102.00 /min 18.00/min 8 20790 9
[2023-12-14] MEDS: ACETAMINOPHEN 325 MG TAB PO PRN (00:33)
[2023-12-14] MEDS: LEVOTHYROXINE SODIUM 150 MCG TABLET PO SCH (05:09)
[2023-12-14 06:33] LABS: Hematocrit (blood only) 36.5 % (37.0-47.0); Hemoglobin 11.8 g/dl (12.0-16.0); Mean Corpuscular Hemoglobin 28.4 pg (25.0-34.0); Mean Corpuscular Hgb Conc 32.3 g/dL (32.0-36.0); Mean Corpuscular Volume 87.7 fL (80.0-100.0); Platelet Count 277 K/uL (130-400); RDW Coefficient of Variation 16.1 % (11.5-14.5); RDW Standard Deviation 51.8 fL (36.4-46.3); Red Blood Count 4.16 M/uL (4.20-5.40); White Blood Count 4.75 K/ul (4.8-10.8)
[2023-12-14 06:56] LABS: BUN Creatinine Ratio 21.2 (10-20); Calcium 8.4 mg/dl (8.6-10.3); Creatinine Clr Calc Pharmacy 168.4 ml/min; Potassium 3.3 mmol/L (3.5-5.1)
[2023-12-14] MEDS: TAMSULOSIN HCL 0.4 MG CAP PO SCH (09:15)
[2023-12-14] MEDS: CHOLECALCIFEROL 25 MCG (1000 UNITS) TAB PO SCH (09:15)
[2023-12-14] MEDS: PSYLLIUM or GUAR GUM FIBER 4GM PACKET PO SCH (09:16)
[2023-12-14] MEDS: POTASSIUM CHLORIDE CRTAB 20 MEQ TABCR PO STA (12:00)
--- NOTE | 2023-12-14 12:17 | Hospitalist Progress Note ---
Date of Service December 14, 2023 Assessment & Plan (1) UTI (urinary tract infection): (2) Oral candidiasis: Plan Patient is 73 year old female with PMHx significant for DM II, HTN, HLD, back pain with multiple lumbar spine procedures, ongoing nausea and others listed below presented to ER with c/o progressive generalized weakness, poor oral intake and continued nausea. Generalized weakness Failure to thrive in adult No leukocytosis, No VALDEZ CT head: no acute intracranial abnormality CXR: no infiltrate noted In ER given IVF UA suggestive of infection Urine culture currently growing gram-negative bacilli Blood cultures pending CT lumbar spine with question of possible infection with noted edema, orthospine consulted, appreciate further recs. Continue IV Rocephin, generalized weakness likely in the setting of complicated urinary tract infection Fall precautions PT/OT eval Electrical Line Mechanic consult Continue to monitor Complicated UTI Patient notes the presence of a chronic indwelling urinary catheter, follows with urology Recent history of urinary retention requiring Grayson catheter Grayson changed in ER today UA suggestive of infection Urine culture currently growing gram-negative bacilli Continue with IV Rocephin at this time and narrow based on culture results Continue Flomax Has [facility] urology f/u scheduled for next week, however has not been seen yet continue to monitor Nausea Diarrhea Poor appetite Ongoing nausea and poor oral intake x 3 months. Past 3 days two loose BMs daily since discontinuing narcotics without melena or hematochezia If recurrent diarrhea plan to obtain stool culture and c-diff Continue PPI Antiemetics as needed May need to consider abdominal imaging and/or GI consult Patient with poor intake and urine output IV fluids for 1 bag Continue to monitor Hypokalemia K: 3.1 on arrival In ER given 1 K-rider Attempted to replace orally however patient unable to take oral potassium patient requiring IV replacement at this time Replete as needed Abnormal TSH Hypothyroidism TSH: 0.028, Free T4: 2.7 Likely levothyroxine dose too high in setting of recent limited oral intake Plan to decrease home levothyroxine from 200mcg to 150mcg daily Will need repeat TSH PCP follow up History of back pain: History of compression fracture of spine: History of spinal surgery: R/O Discitis Hx of multiple lumbosacral spine surgery S/P R SI joint revision, on 09/25/[address] Herr S/P kyphoplasty L1 L2 on 11/04/[address] Herr H/O SI joint fusion in past Elevated ESR and CRP MRI lumbar spine with concern for infection based on edema previously noted on previous MRIs On Rocephin as above for UTI and will continue Was on Butrans patch but secondary to cost pt chose to discontinue and use oxycodone. Patient discontinued oxycodone 3 days ago and pain controlled with prn Tylenol Denies any increased back pain and overall feels improvement Tylenol prn pain Orthospine surgery consulted for further recs Oral candidiasis Denies sore throat or dysphagia Nystatin swish Abnormal EKG EKG sinus rhythm, nonspecific T wave changes in inferior and anterior leads that appear new from EKG 09/22/23 per my interpretation Denies CP or SOB Troponin negative x 2 09/25/23 Echo: EF: 60%, grade I diastolic dysfunction Repeat Echo with EF of 60 to 65%, Normal right ventricular function, no significant valvular disease Continue to monitor on telemetry T2DM (type 2 diabetes mellitus): A1c: 6.5 on 11/01/23 Hold home oral agents Novolog sliding scale per protocol with correction coverage for now. If patient starts increasing oral intake will plan on carb coverage also HTN (hypertension) HCTZ had been discontinued during recent rehab secondary to low BP's In ER BP's stable Monitor BP HLD (hyperlipidemia) Previously on colesevelam Diet: DMII DVT Prophylaxis: Heparin SQ CODE STATUS: DNR/DNI as per discussion with pt Dispo: per PT/OT Admission and Anticipated Discharge Date Admission Date: December 13, 2023 Results & Data Results & Data Vital Signs (Past 12 Hours) Vital Signs Temp Pulse Pulse Resp BP Pulse Ox O2 Del Method 12/14/23 10:56 36.7 C 90 20 112/72 96 Room Air 12/14/23 08:01 36.3 C L 80 16 109/69 95 Room Air 12/14/23 07:25 84 12/14/23 04:00 36.6 C 67 18 123/73 95 Room Air
[2023-12-14] MEDS: POTASSIUM CHLORIDE / WTR 10 MEQ/100 ML PLCT IV SCH (12:30)
[2023-12-14] MEDS: ONDANSETRON INJ 2 MG/ML 2 ML VIAL IV PRN (14:25)
[2023-12-14] MEDS: SODIUM CHLORIDE 0.9% 1,000 ML IV SCH (15:31)
[2023-12-14] MEDS: cefTRIAXone SODIUM 1,000 MG/50 ML BAG IV SCH (15:31)
[2023-12-15 00:36] LABS: Adenovirus F 40/41 PCR Not Detected (NotDetected); Astrovirus PCR Not Detected (NotDetected); Campylobacter PCR Not Detected (NotDetected); Cryptosporidium PCR Not Detected (NotDetected); Cyclospora cayetanensis PCR Not Detected (NotDetected); Entamoeba histolytica PCR Not Detected (NotDetected); Enteroaggregative E.coli(EAEC) Not Detected (NotDetected); Enteropathogenic E.coli (EPEC) Not Detected (NotDetected); Enterotoxigenic E.coli (ETEC) Not Detected (NotDetected); Giardia lamblia PCR Not Detected (NotDetected); Norovirus GI/GII PCR Not Detected (NotDetected); Plesiomonas shigelloides PCR Not Detected (NotDetected); Rotavirus A PCR Not Detected (NotDetected); Salmonella PCR Not Detected (NotDetected); Sapovirus PCR Not Detected (NotDetected); Shiga-like Toxin E.coli (STEC) Not Detected (NotDetected); Shigella/Enteroinvasive E.coli Not Detected (NotDetected); Vibrio cholerae PCR Not Detected (NotDetected); Vibrio species PCR Not Detected (NotDetected); Yersinia enterocolitica PCR Not Detected (NotDetected)
[2023-12-15 05:26] LABS: Hematocrit (blood only) 34.1 % (37.0-47.0); Mean Corpuscular Hemoglobin 28.2 pg (25.0-34.0); Mean Corpuscular Hgb Conc 32.3 g/dL (32.0-36.0); Mean Corpuscular Volume 87.4 fL (80.0-100.0); Mean Platelet Volume 12.4 fL (9.4-12.4); Platelet Count 248 K/uL (130-400); RDW Coefficient of Variation 16.1 % (11.5-14.5); RDW Standard Deviation 52.2 fL (36.4-46.3); White Blood Count 4.84 K/ul (4.8-10.8)
[2023-12-15 06:00] LABS: Albumin Globulin Ratio 0.8 (0.9-2); Albumin Level 2.4 gm/dl (3.4-5.0); BUN Creatinine Ratio 13.3 (10-20); Bilirubin,Total 0.4 mg/dl (0.2-1.0); Calcium 8.5 mg/dl (8.6-10.3); Creatinine Clr Calc Pharmacy 123.5 ml/min; Globulin 3.2 gm/dl (2.5-4.0); Magnesium 1.6 mg/dl (1.7-2.4); Phosphorus 3.7 mg/dl (2.5-4.9); Potassium 3.3 mmol/L (3.5-5.1); Total Protein 5.6 gm/dl (6.0-8.3)
[2023-12-15 06:18] LABS: Basophils # (auto) 0.02 K/uL (0.00-0.20); Basophils % (auto) 0.4 %; Eosinophils # (auto) 0.13 K/uL (0.00-0.50); Eosinophils % (auto) 2.7 %; Immature Granulocytes # (auto) 0.01 K/uL (0.01-0.20); Immature Granulocytes % (auto) 0.2 %; Lymphocytes % (auto) 57.9 %; Monocytes # (auto) 0.47 K/uL (0.11-0.59); Monocytes % (auto) 9.7 %; Neutrophils # (auto) 1.41 K/uL (1.40-6.50); Neutrophils % (auto) 29.1 %; Polychromasia 1+
[2023-12-15] MEDS: POTASSIUM CHLORIDE / WTR 10 MEQ/100 ML PLCT IV SCH (09:11)
--- NOTE | 2023-12-15 10:40 | Hospitalist Progress Note ---
Date of Service December 15, 2023 Assessment & Plan (1) UTI (urinary tract infection): (2) Oral candidiasis: Plan Patient is 73 year old female with PMHx significant for DM II, HTN, HLD, back pain with multiple lumbar spine procedures, ongoing nausea and others listed below presented to ER with c/o progressive generalized weakness, poor oral intake and continued nausea. Generalized weakness Failure to thrive in adult No leukocytosis, No VALDEZ CT head: no acute intracranial abnormality CXR: no infiltrate noted In ER given IVF UA suggestive of infection Urine culture currently growing gram-negative bacilli Blood cultures pending CT lumbar spine with question of possible infection with noted edema, orthospine consulted, appreciate further recs. Continue IV Rocephin, generalized weakness likely in the setting of complicated urinary tract infection Fall precautions PT/OT eval Spray Rig Operator consult Continue to monitor Complicated UTI Patient notes the presence of a chronic indwelling urinary catheter, follows with urology Recent history of urinary retention requiring Grayson catheter Grayson changed in ER today UA suggestive of infection Urine culture currently growing gram-negative bacilli Continue with IV Rocephin at this time and narrow based on culture results. will narrow to oral antibiotic once patient able to tolerate p.o. without any nausea vomiting Continue Flomax Has [facility] urology f/u scheduled for next week, however has not been seen yet Continue to monitor Nausea Diarrhea Poor appetite Ongoing nausea and poor oral intake x 3 months. Past 3 days two loose BMs daily since discontinuing narcotics without melena or hematochezia stool culture was negative with negative C. difficile Continue PPI Antiemetics as needed CT abdomen pelvis ordered for further evaluation and pending Consider GI input Patient with poor intake and urine output IV fluids for 1 bag Continue to monitor Hypokalemia Hypomagnesemia Replete as needed Patient requiring IV replacement at this time in the setting of intractable nausea vomiting Continue to monitor Abnormal TSH Hypothyroidism TSH: 0.028, Free T4: 2.7 Likely levothyroxine dose too high in setting of recent limited oral intake Plan to decrease home levothyroxine from 200mcg to 150mcg daily Will need repeat TSH PCP follow up History of back pain: History of compression fracture of spine: History of spinal surgery: R/O Discitis Hx of multiple lumbosacral spine surgery S/P R SI joint revision, on 09/25/[address] Herr S/P kyphoplasty L1 L2 on 11/04/[address] Herr H/O SI joint fusion in past Elevated ESR and CRP MRI lumbar spine with concern for infection based on edema previously noted on previous MRIs On Rocephin as above and will continue, low suspicion for infection at this time per prior discussion with orthospine Was on Butrans patch but secondary to cost pt chose to discontinue and use oxycodone. Patient discontinued oxycodone 3 days ago and pain controlled with prn Tylenol Denies any increased back pain and overall feels improvement Tylenol prn pain Orthospine surgery consulted for further recs Infectious disease also consulted for further recommendations on the recommendation of orthospine Oral candidiasis Denies sore throat or dysphagia Nystatin swish Abnormal EKG EKG sinus rhythm, nonspecific T wave changes in inferior and anterior leads that appear new from EKG 09/22/23 per my interpretation Denies CP or SOB Troponin negative x 2 09/25/23 Echo: EF: 60%, grade I diastolic dysfunction Repeat Echo with EF of 60 to 65%, Normal right ventricular function, no significant valvular disease Continue to monitor on telemetry T2DM (type 2 diabetes mellitus): A1c: 6.5 on 11/01/23 Hold home oral agents Novolog sliding scale per protocol with correction coverage for now. If patient starts increasing oral intake will plan on carb coverage also HTN (hypertension) HCTZ had been discontinued during recent rehab secondary to low BP's In ER BP's stable Monitor BP HLD (hyperlipidemia) Previously on colesevelam Diet: DMII DVT Prophylaxis: Heparin SQ CODE STATUS: DNR/DNI as per discussion with pt Dispo: per PT/OT Admission and Anticipated Discharge Date Admission Date: December 13, 2023 Subjective patient was seen laying in bed. States that she had nausea and vomiting all day the day before Notes that she was able to take her pills this morning without any nausea or vomiting. States that the Phenergan helps with her nausea better than the Zofran Also noting some loose stools. Review of Systems Review of Systems: All systems reviewed & are unremarkable except as noted in Subjective Physical Exam Physical Exam: General: Alert, oriented. No acute distress Psych: Appropriate mood and affect Neuro: some difficulty with movements in the bed HEENT: NC/AT CV: RRR Resp: Breath sounds clear bilaterally, no increased effort of breathing Abdomen: Soft, nontender Extremities: No edema in lower extremities bilaterally. Results & Data Results & Data Vital Signs (Past 12 Hours) Vital Signs Temp Pulse Pulse Resp BP Pulse Ox O2 Del Method 12/15/23 07:50 36.5 C 81 18 109/65 95 Room Air 12/15/23 07:29 84 12/15/23 03:55 36.6 C 80 16 120/74 99 Room Air 12/15/23 03:20 94 H 12/14/23 23:30 36.5 C 80 18 116/69 96 Room Air
[2023-12-15] MEDS: MAGNESIUM OXIDE 400 MG TAB PO SCH (11:30)
[2023-12-15] MEDS: OPTIRAY 320 100ml IV ONE (14:17)
--- NOTE | 2023-12-15 14:43 | CT Scan Report ---
CT abd pelvis IV con only CLINICAL HISTORY: abd pain, intract N/V, diarrhea TECHNIQUE: Helical axial images of the abdomen and pelvis were obtained and displayed. Automated dose lowering techniques and/or adjustment according to patient size were utilized for this exam. This e xam was performed with intravenous contrast. CT DOSE: 1348.18 mGy.cm COMPARISON: Comparison is made to CT abdomen pelvis 10/24/2023 FINDINGS: Lower chest: Bibasilar atelectasis versus scarring is seen. Liver: Unremarkable. No focal lesions are seen. Gallbladder and biliary tree: Patient is status post cholecystectomy. No intra- or extrahepatic bilia ry ductal dilation. Pancreas: Fatty replacement of the pancreas is seen. Spleen: Unremarkable. Adrenals: Unremarkable. Kidneys and ureters: Unremarkable. Bladder: Grayson catheter is seen. Reproductive organs: Unremarkable. Bowel: Diverticulosis is seen without diverticulitis. The appendix is normal. Lymph nodes Retroperitoneal: Subcentimeter lymph nodes are noted. Pelvic: Unremarkable. Mesenteric: Unremarkable. Peritoneum: Normal. Vessels: Unremarkable. Abdominal wall: Unremarkable. Bones: Degenerative changes and postsurgical changes of fixation and cemented arthroplasties. Postsur gical changes of right sacroiliac fusion. IMPRESSION: 1. No acute abnormalities to explain nausea and vomiting. 2. Diverticulosis without diverticulitis. ACT 112: Negative or not required by law. Electronically signed by: Evans Jeff M.D. 12/15/2023 2:40 PM
[2023-12-15] MEDS: cefTRIAXone SODIUM 2,000 MG/50 ML BAG IV SCH (15:45)
--- NOTE | 2023-12-15 19:03 | Orthopedic Progress Note ---
Date of Service December 15, 2023 Assessment & Plan (1) Low back pain: (2) L1 vertebral fracture: Plan No definitive infection identified on MRI. Already on ceftriaxone for UTI which is likely contributing to her elevated CRP. I do not see anything requiring surgical intervention. Recommend continuing abx for UTI, mobilization with PT. I have discussed with Dr. Herr who will take over care. Subjective Patient is s/p multiple spine procedures with Dr. Herr. She has not had any focal neurologic deficits, reports generalized weakness. Has a long standing mahoney at this point and current UTI. Has had back pain and recent kyphoplasty. Review of Systems All systems reviewed & are unremarkable except as noted in HPI & below. Physical Exam moves lower extremities to command without deficit noted in hip flex, quad, tib ant, ehl, gs Results & Data Results & Data Laboratory Results MRI completed without contrast, no evidence of epidural abscess, L1 vertebral body fracture s/p kyphoplasty, no disc signal change, prior L2-sacrum fusion. No obvious infection noted, some paraspinal edema not unexpected given multiple surgical procedures. Diagnostic Findings . PG Care Time/CCT Total # of Minutes Spent Total Time Spent with Patient: Total time spent is greater than 50% in coordination of care (as documented) at patient's floor/unit and/or counseling patient: Coding Level of Care Code 73949 SUB INP/OBS CARE 03/21MIN Diagnoses Low back pain M54.50 L1 vertebral fracture S32.019A
[2023-12-16 06:29] LABS: Hematocrit (blood only) 34.7 % (37.0-47.0); Hemoglobin 11.3 g/dl (12.0-16.0); Mean Corpuscular Hemoglobin 28.5 pg (25.0-34.0); Mean Corpuscular Hgb Conc 32.6 g/dL (32.0-36.0); Mean Corpuscular Volume 87.6 fL (80.0-100.0); Mean Platelet Volume 11.7 fL (9.4-12.4); Platelet Count 247 K/uL (130-400); RDW Coefficient of Variation 16.8 % (11.5-14.5); RDW Standard Deviation 53.8 fL (36.4-46.3); Red Blood Count 3.96 M/uL (4.20-5.40); White Blood Count 4.75 K/ul (4.8-10.8)
[2023-12-16 06:59] LABS: Albumin Globulin Ratio 0.8 (0.9-2); Albumin Level 2.5 gm/dl (3.4-5.0); BUN Creatinine Ratio 11.9 (10-20); Bilirubin,Total 0.4 mg/dl (0.2-1.0); Calcium 8.8 mg/dl (8.6-10.3); Creatinine Clr Calc Pharmacy 133.8 ml/min; Globulin 3.2 gm/dl (2.5-4.0); Magnesium 1.6 mg/dl (1.7-2.4); Phosphorus 3.8 mg/dl (2.5-4.9); Potassium 3.3 mmol/L (3.5-5.1); Total Protein 5.7 gm/dl (6.0-8.3)
[2023-12-16 07:32] LABS: Basophils # (auto) 0.02 K/uL (0.00-0.20); Basophils % (auto) 0.4 %; Eosinophils # (auto) 0.19 K/uL (0.00-0.50); Immature Granulocytes # (auto) 0.02 K/uL (0.01-0.20); Immature Granulocytes % (auto) 0.4 %; Lymphocytes # (auto) 2.73 K/uL (1.20-3.40); Lymphocytes % (auto) 57.5 %; Monocytes # (auto) 0.44 K/uL (0.11-0.59); Monocytes % (auto) 9.3 %; Neutrophils # (auto) 1.35 K/uL (1.40-6.50); Neutrophils % (auto) 28.4 %; Polychromasia 1+
[2023-12-16] MEDS: POTASSIUM CHLORIDE 20 MEQ/15 ML UDC PO SCH (09:33)
[2023-12-16] MEDS: MAGNESIUM CHLORIDE W/CALCIUM 64MG DELAYED REL TAB PO SCH (09:33)
--- NOTE | 2023-12-16 10:03 | Orthopedic Consultation ---
Date of Consultation December 16, 2023 Assessment & Plan (1) Low back pain: MRI reviewed of the lumbar spine demonstrates no evidence of infection. The edema noted in the paravertebral musculature is dependency in nature as she has been lying supine for 4 weeks. I discussed with the patient rehab placement. Will begin with transfers standing as tolerated while she is in the hospital. Have encouraged her to get to a chair for each meal. She is cooperative and understands her goals. History of Present Illness Reason for Consultation: History of back surgery Attending Physician: Roseann Neri MD History of Present Illness This is a 73-year-old female well-known to me. She presents with evidence of a UTI. Her back pain is improving. She is no longer on narcotic medication and is only taking Tylenol only. She feels her head is very clear and her pain is controlled. She has gotten very weak however. She has not been mobilizing at her shelter. She denies any radicular complaints. She feels that her right leg is somewhat weaker than the left but it is modest in nature. Allergies Allergy/AdvReac Type Severity Reaction Status Date / Time Sulfa (Sulfonamide Allergy Intermediate Rash Verified 12/13/23 15:44 Antibiotics) tramadol Allergy Mild Verified 12/13/23 15:44 baclofen Allergy Verified 12/13/23 15:44 gabapentin AdvReac Severe Nightmare Verified 12/13/23 15:44 Home Medications Medication Instructions Recorded Confirmed Type pioglitazone 15 mg tablet 15 mg PO QAM 09/11/21 12/13/23 History cholecalciferol (vitamin D3) 50 50 mcg PO DAILY 09/22/23 12/13/23 History mcg (2,000 unit) tablet (Vitamin D3) colchicine 0.6 mg tablet (Colcrys) 0.6 mg PO BID PRN Gout Flare 09/22/23 12/13/23 History levothyroxine 200 mcg tablet 200 mcg PO QAM 09/22/23 12/13/23 History ondansetron 4 mg disintegrating 4 mg translingual Q6 PRN 09/24/23 12/13/23 History tablet NAUSEA/VOMITING docusate sodium 100 mg capsule 100 mg PO BID PRN Constipation 10/09/23 12/13/23 History lorazepam 0.5 mg tablet 0.5 mg PO Q8H PRN Nausea 12/13/23 12/13/23 History olanzapine 2.5 mg tablet 2.5 mg PO HS 12/13/23 12/13/23 History pantoprazole 40 mg tablet,delayed 40 mg PO BID 12/13/23 12/13/23 History release tamsulosin 0.4 mg capsule 0.4 mg PO DAILY 12/13/23 12/13/23 History Patient History Medical History 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 Muscle spasm severe History of COVID-19 03/2022- mild symptoms Lumbar disc herniation with radiculopathy Surgical History Hx of bilateral cataract extraction History of lumbar spinal fusion 01/21/2023 [facility] L2-L4 decompression/fusion (09/14/21): Grade view 1, Garcia#2, ETT 7.0 at [facility] Nausea and vomiting after administration of anesthetic agent states scopolamine patch worked very well after last procedure Hx of dilation and curettage Hx of arthroscopy of left knee meniscus injury Hx of cholecystectomy Hx of tonsillectomy History of x2 History of total knee replacement Left 2012, Right 2006 Family History Mother Sclerosing cholangitis Father Alcohol use disorder Social History Smoking Status: Never smoker Second Hand Exposure: No; Do You Dip or Chew Tobacco: No; Hx Alcohol Use: No Hx Substance Use: No Preferred Language: Ethiopian Communication Ability: Effective Artificial Glass Eye Maker Required: No Beliefs That Will Affect Care: None marital status: Current Living Situation: Spouse Current Living Situation Comment: Home with current occupational status: retired Other Information That Helps Us Care for You: No Feels Safe at Home: Yes Safety Concerns: Feels Safe At This Time Assistive Devices: Denture - Upper, Glasses and Wheelchair Physical Exam Physical Exam: On exam she is alert and oriented. She is neurologically intact to testing cold and light touch. Results & Data Vital Signs (Past 12 Hours) Vital Signs Temp Pulse Pulse Resp BP Pulse Ox O2 Del Method 12/16/23 07:55 36.3 C L 80 20 111/68 92 Room Air 12/16/23 07:33 79 12/16/23 02:46 36.8 C 85 18 108/61 91 Room Air 12/15/23 23:29 79 12/15/23 22:54 36.9 C 112 H 16 115/70 94 Room Air
--- NOTE | 2023-12-16 10:31 | Hospitalist Progress Note ---
Date of Service December 16, 2023 Assessment & Plan (1) UTI (urinary tract infection): (2) Oral candidiasis: Plan Patient is 73 year old female with PMHx significant for DM II, HTN, HLD, back pain with multiple lumbar spine procedures, ongoing nausea and others listed below presented to ER with c/o progressive generalized weakness, poor oral intake and continued nausea. Generalized weakness Failure to thrive in adult No leukocytosis, No VALDEZ CT head: no acute intracranial abnormality CXR: no infiltrate noted In ER given IVF UA suggestive of infection Urine culture currently growing gram-negative bacilli Blood cultures pending CT lumbar spine with question of possible infection with noted edema, orthospine consulted, appreciate further recs. Continue IV Rocephin, generalized weakness likely in the setting of complicated urinary tract infection Fall precautions PT/OT eval Playground Monitor consult Continue to monitor Complicated UTI Patient notes the presence of a chronic indwelling urinary catheter, follows with urology Recent history of urinary retention requiring Grayson catheter Grayson changed in ER today UA suggestive of infection Urine culture grew pansensitive E coli Was on IV Rocephin, ID recommending deescalting to amoxicillin x 10 days of treatment if treatment indicated. Continue Flomax Has [facility] urology f/u scheduled for next week, however has not been seen yet Patient started on amoxicillin 875 mg twice daily for 10 days Continue to monitor Nausea Diarrhea Poor appetite Ongoing nausea and poor oral intake x 3 months. Past 3 days two loose BMs daily since discontinuing narcotics without melena or hematochezia stool culture was negative with negative C. difficile Continue PPI Antiemetics as needed CT abdomen pelvis with no acute pathology Consider GI input Patient with poor intake and urine output IV fluids for 1 bag Continue to monitor Hypokalemia Hypomagnesemia Replete as needed Patient requiring IV replacement at this time in the setting of intractable nausea vomiting Continue to monitor Abnormal TSH Hypothyroidism TSH: 0.028, Free T4: 2.7 Likely levothyroxine dose too high in setting of recent limited oral intake Plan to decrease home levothyroxine from 200mcg to 150mcg daily Will need repeat TSH PCP follow up History of back pain: History of compression fracture of spine: History of spinal surgery: R/O Discitis Hx of multiple lumbosacral spine surgery S/P R SI joint revision, on 09/25/[address] Herr S/P kyphoplasty L1 L2 on 11/04/[address] Herr H/O SI joint fusion in past Elevated ESR and CRP MRI lumbar spine with concern for infection based on edema previously noted on previous MRIs Was on Rocephin as above, low suspicion for infection at this time per prior discussion with orthospine Was on Butrans patch but secondary to cost pt chose to discontinue and use oxycodone. Patient discontinued oxycodone 3 days ago and pain controlled with prn Tylenol Denies any increased back pain and overall feels improvement Tylenol prn pain Orthospine surgery consulted for further recs. Noted/stated the following: "MRI reviewed of the lumbar spine demonstrates no evidence of infection. The edema noted in the paravertebral musculature is dependency in nature as she has been lying supine for 4 weeks. I discussed with the patient rehab placement. Will begin with transfers standing as tolerated while she is in the hospital. Have encouraged her to get to a chair for each meal. She is cooperative and understands her goals." Continue to monitor Oral candidiasis Denies sore throat or dysphagia Nystatin swish Abnormal EKG EKG sinus rhythm, nonspecific T wave changes in inferior and anterior leads that appear new from EKG 09/22/23 per my interpretation Denies CP or SOB Troponin negative x 2 09/25/23 Echo: EF: 60%, grade I diastolic dysfunction Repeat Echo with EF of 60 to 65%, Normal right ventricular function, no significant valvular disease Continue to monitor on telemetry T2DM (type 2 diabetes mellitus): A1c: 6.5 on 11/01/23 Hold home oral agents Novolog sliding scale per protocol with correction coverage for now. If patient starts increasing oral intake will plan on carb coverage also HTN (hypertension) HCTZ had been discontinued during recent rehab secondary to low BP's In ER BP's stable Monitor BP HLD (hyperlipidemia) Previously on colesevelam Diet: DMII DVT Prophylaxis: Heparin SQ CODE STATUS: DNR/DNI as per discussion with pt Dispo: per PT/OT, orthospine recommending acute rehab Admission and Anticipated Discharge Date Admission Date: December 13, 2023 Subjective patient was seen in the morning States that she had a better day yesterday with the nausea and vomiting Notes she cannot take oral potassium in any form Otherwise denies acute concerns Review of Systems Review of Systems: All systems reviewed & are unremarkable except as noted in Subjective Physical Exam Physical Exam: General: Alert, oriented. No acute distress Psych: Appropriate mood and affect Neuro: some difficulty with movements in the bed HEENT: NC/AT CV: RRR Resp: Breath sounds clear bilaterally, no increased effort of breathing Abdomen: Soft, nontender Extremities: No edema in lower extremities bilaterally. Results & Data Results & Data Vital Signs (Past 12 Hours) Vital Signs Temp Pulse Pulse Resp BP Pulse Ox O2 Del Method 12/16/23 07:55 36.3 C L 80 20 111/68 92 Room Air 12/16/23 07:33 79 12/16/23 02:46 36.8 C 85 18 108/61 91 Room Air 12/15/23 23:29 79 12/15/23 22:54 36.9 C 112 H 16 115/70 94 Room Air
--- NOTE | 2023-12-16 16:44 | Infectious Disease Consult ---
Date of Service December 16, 2023 Telehealth Information I performed this visit using a real-time telehealth connection between my location and the patients location ([facility]). After connecting through interactive tele-video, patient was identified by name and date of and/or wristband check.Patient (or authorized healthcare manufacturers representative) was informed that this was a telemedicine visit and it was being conducted confidentially over secure lines. My office door was closed and no one else was present in the room with me.Patient (or authorized healthcare manufacturers representative) provided consent to proceed with the visit, expressed an understanding of privacy and security of the telemedicine visit, and gave permission to have a hospital manufacturers representative in the room in order to assist with the visit and to conduct portions of the visit, as needed. I informed the patient (or authorized healthcare manufacturers representative) that I reviewed their record and presented the opportunity for them to ask any questions regarding the visit today. The patient agreed to participate. Assessment & Plan (1) Bacteriuria: Plan: The presence of bacteruria in the presence of a Grayson catheter is not diagnostic of a UTI. The patient denies any other symptoms of a UTI - with the possible exception of nausea/vomiting, but there are no other findings to suggest a complicated UTI (BCX negative, CT negative, no leukocytosis). I recommend to discontinue ceftriaxone. If there is ongoing concern for a UTI as the cause of the patient's symptoms, then you could de-escalate to PO amoxicillin and assess the patient's response. The duration would be 10 days of total ABX. I recommend to discuss with Ortho Spine about their concern for an infection in the back. If there is concern, then the patient may need a biopsy and cultures. These recommendations are not final. For subsequent recommendations, use the on- call schedule to find who is covering your facility. History of Present Illness History of Present Illness The patient presented with nausea and anorexia/malaise. CT A/P and stool cultures were negative. A urine culture was obtained and revealed Ecoli. There was concern for a possible spine infection but Ortho Spine did not find any evidence of infection when they reviewed the MRI. The patient reports feeling better. She denies any fever, chills, flank/back pain, cauda equina symptoms. Allergies Allergy/AdvReac Type Severity Reaction Status Date / Time Sulfa (Sulfonamide Allergy Intermediate Rash Verified 12/13/23 15:44 Antibiotics) tramadol Allergy Mild Verified 12/13/23 15:44 baclofen Allergy Verified 12/13/23 15:44 gabapentin AdvReac Severe Nightmare Verified 12/13/23 15:44 Home Medications Medication Instructions Recorded Confirmed Type pioglitazone 15 mg tablet 15 mg PO QAM 09/11/21 12/13/23 History cholecalciferol (vitamin D3) 50 50 mcg PO DAILY 09/22/23 12/13/23 History mcg (2,000 unit) tablet (Vitamin D3) colchicine 0.6 mg tablet (Colcrys) 0.6 mg PO BID PRN Gout Flare 09/22/23 12/13/23 History levothyroxine 200 mcg tablet 200 mcg PO QAM 09/22/23 12/13/23 History ondansetron 4 mg disintegrating 4 mg translingual Q6 PRN 09/24/23 12/13/23 History tablet NAUSEA/VOMITING docusate sodium 100 mg capsule 100 mg PO BID PRN Constipation 10/09/23 12/13/23 History lorazepam 0.5 mg tablet 0.5 mg PO Q8H PRN Nausea 12/13/23 12/13/23 History olanzapine 2.5 mg tablet 2.5 mg PO HS 12/13/23 12/13/23 History pantoprazole 40 mg tablet,delayed 40 mg PO BID 12/13/23 12/13/23 History release tamsulosin 0.4 mg capsule 0.4 mg PO DAILY 12/13/23 12/13/23 History Patient History Medical History 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 Muscle spasm severe History of COVID-19 03/2022- mild symptoms Lumbar disc herniation with radiculopathy Surgical History Hx of bilateral cataract extraction History of lumbar spinal fusion 01/21/2023 [facility] L2-L4 decompression/fusion (09/14/21): Grade view 1, Garcia#2, ETT 7.0 at [facility] Nausea and vomiting after administration of anesthetic agent states scopolamine patch worked very well after last procedure Hx of dilation and curettage Hx of arthroscopy of left knee meniscus injury Hx of cholecystectomy Hx of tonsillectomy History of x2 History of total knee replacement Left 2012, Right 2006 Family History Mother Sclerosing cholangitis Father Alcohol use disorder Social History Smoking Status: Never smoker Second Hand Exposure: No; Do You Dip or Chew Tobacco: No; Hx Alcohol Use: No Hx Substance Use: No Preferred Language: Nepali Communication Ability: Effective Garbage Pick Up Man Required: No Beliefs That Will Affect Care: None marital status: Current Living Situation: Spouse Current Living Situation Comment: Home with current occupational status: retired Other Information That Helps Us Care for You: No Feels Safe at Home: Yes Safety Concerns: Feels Safe At This Time Assistive Devices: Denture - Upper, Glasses and Wheelchair Review of Systems As reviewed in HPI; a complete ROS was otherwise negative Physical Exam Vitals: see EMR Exam limited due to constraints of telemedicine Gen/Constitutional: appears at stated age, NAD, nontoxic Head: AT, NC Eyes: sclera anicteric, no conjunctival injection ENT: MMM, trachea midline Card: appears to be well-perfused Resp: not tachypneic, nml effort, symmetric chest rise, no accessory muscle use Derm: no visible diaphoresis, no visible rash, no visible jaundice Results & Data Vital Signs (Past 12 Hours) Vital Signs Temp Pulse Pulse Resp BP Pulse Ox O2 Del Method 12/16/23 15:56 36.6 C 75 20 107/58 L 91 Room Air 12/16/23 15:33 90 12/16/23 11:25 36.6 C 75 20 111/67 93 Room Air 12/16/23 07:55 36.3 C L 80 20 111/68 92 Room Air 12/16/23 07:33 79 Laboratory Results SEE EMR Diagnostic Findings SEE EMR
[2023-12-16] MEDS: POTASSIUM CHLORIDE / WTR 10 MEQ/100 ML PLCT IV SCH (18:08)
[2023-12-16] MEDS: SODIUM CHLORIDE 0.9% 1,000 ML IV SCH (18:08)
[2023-12-16] MEDS: AMOXICILLIN 875 MG TAB PO SCH (21:08)
[2023-12-17] MEDS: NSS + 20MEQ KCL 20 MEQ/1,000 ML BAG IV ONE (07:28)
[2023-12-17 07:58] LABS: Hematocrit (blood only) 35.2 % (37.0-47.0); Hemoglobin 11.3 g/dl (12.0-16.0); Mean Corpuscular Hemoglobin 28.5 pg (25.0-34.0); Mean Corpuscular Hgb Conc 32.1 g/dL (32.0-36.0); Mean Corpuscular Volume 88.7 fL (80.0-100.0); Mean Platelet Volume 12.4 fL (9.4-12.4); Platelet Count 247 K/uL (130-400); Red Blood Count 3.97 M/uL (4.20-5.40); White Blood Count 4.12 K/ul (4.8-10.8)
[2023-12-17 08:13] LABS: Albumin Globulin Ratio 0.8 (0.9-2); Albumin Level 2.4 gm/dl (3.4-5.0); BUN Creatinine Ratio 10.8 (10-20); Bilirubin,Total 0.3 mg/dl (0.2-1.0); Calcium 8.2 mg/dl (8.6-10.3); Creatinine Clr Calc Pharmacy 152.1 ml/min; Magnesium 1.6 mg/dl (1.7-2.4); Phosphorus 3.3 mg/dl (2.5-4.9); Potassium 3.4 mmol/L (3.5-5.1); Total Protein 5.4 gm/dl (6.0-8.3)
[2023-12-17 08:46] LABS: Basophils # (auto) 0.03 K/uL (0.00-0.20); Basophils % (auto) 0.7 %; Eosinophils # (auto) 0.14 K/uL (0.00-0.50); Eosinophils % (auto) 3.4 %; Immature Granulocytes # (auto) 0.02 K/uL (0.01-0.20); Immature Granulocytes % (auto) 0.5 %; Lymphocytes # (auto) 2.09 K/uL (1.20-3.40); Lymphocytes % (auto) 50.7 %; Monocytes # (auto) 0.43 K/uL (0.11-0.59); Monocytes % (auto) 10.4 %; Neutrophils # (auto) 1.41 K/uL (1.40-6.50); Neutrophils % (auto) 34.3 %
--- NOTE | 2023-12-17 10:49 | Orthopedic Progress Note ---
Date of Service December 17, 2023 Assessment & Plan (1) History of compression fracture of spine: Plan: At this time and continue to encourage activity as tolerated. She is hopefully going to get to rehab soon. At this point I do not see any indication for lumb ar surgery or biopsy. Admission and Anticipated Discharge Date Admission Date: December 13, 2023 Subjective Patient's back pain is controlled. She is noting weakness in her legs but was able to ambulate yesterday with physical therapy at least a few steps. She is tolerating sitting in a chair. Physical Exam Physical Exam: Patient is in the chair at the bedside. She has reasonable strength testing lower extremities. Sensory is intact. She is comfortable. Results & Data Vital Signs (Past 12 Hours) Vital Signs Temp Pulse Pulse Resp BP Pulse Ox O2 Del Method 12/17/23 08:21 82 12/17/23 08:15 36.7 C 83 20 110/68 93 Room Air 12/17/23 04:22 36.6 C 76 20 113/68 94 Room Air 12/17/23 00:13 36.9 C 82 20 116/69 95 Room Air
--- NOTE | 2023-12-17 11:20 | Hospitalist Progress Note ---
Date of Service December 17, 2023 Assessment & Plan (1) UTI (urinary tract infection): (2) Oral candidiasis: Plan Patient is 73 year old female with PMHx significant for DM II, HTN, HLD, back pain with multiple lumbar spine procedures, ongoing nausea and others listed below presented to ER with c/o progressive generalized weakness, poor oral intake and continued nausea. Generalized weakness Failure to thrive in adult No leukocytosis, No VALDEZ CT head: no acute intracranial abnormality CXR: no infiltrate noted In ER given IVF UA suggestive of infection Urine culture currently growing gram-negative bacilli Blood cultures pending CT lumbar spine with question of possible infection with noted edema, orthospine consulted, appreciate further recs. Continue IV Rocephin, generalized weakness likely in the setting of complicated urinary tract infection Fall precautions PT/OT eval Cotton Header consult Continue to monitor Complicated UTI Patient notes the presence of a chronic indwelling urinary catheter, follows with urology Recent history of urinary retention requiring Grayson catheter Grayson changed in ER today UA suggestive of infection Urine culture grew pansensitive E coli Was on IV Rocephin, ID recommending deescalting to amoxicillin x 10 days of treatment if treatment indicated. Continue Flomax Has [facility] urology f/u scheduled for next week, however has not been seen yet -Urology contacted on 12/16 and recommended "keep catheter or remove for voiding trial. Catheter can be replaced if unable to void." Patient started on amoxicillin 875 mg twice daily for 10 days Continue to monitor Nausea Diarrhea Poor appetite Ongoing nausea and poor oral intake x 3 months. Past 3 days two loose BMs daily since discontinuing narcotics without melena or hematochezia stool culture was negative with negative C. difficile Continue PPI Antiemetics as needed CT abdomen pelvis with no acute pathology Consider GI input Patient with poor intake and urine output IV fluids for 1 bag Patient states that she is on nightly Zyprexa to help with her nausea however it has not been helping so requesting discontinuation. Dietary consult Continue to monitor Hypokalemia Hypomagnesemia Replete as needed Patient requiring IV replacement at this time in the setting of intractable nausea vomiting Continue to monitor Abnormal TSH Hypothyroidism TSH: 0.028, Free T4: 2.7 Likely levothyroxine dose too high in setting of recent limited oral intake Plan to decrease home levothyroxine from 200mcg to 150mcg daily Will need repeat TSH PCP follow up History of back pain: History of compression fracture of spine: History of spinal surgery: R/O Discitis Hx of multiple lumbosacral spine surgery S/P R SI joint revision, on 09/25/[address] Herr S/P kyphoplasty L1 L2 on 11/04/[address] Herr H/O SI joint fusion in past Elevated ESR and CRP MRI lumbar spine with concern for infection based on edema previously noted on previous MRIs Was on Rocephin as above, low suspicion for infection at this time per prior discussion with orthospine Was on Butrans patch but secondary to cost pt chose to discontinue and use oxycodone. Patient discontinued oxycodone 3 days ago and pain controlled with prn Tylenol Denies any increased back pain and overall feels improvement Tylenol prn pain Orthospine surgery consulted for further recs. Noted/stated the following: "MRI reviewed of the lumbar spine demonstrates no evidence of infection. The edema noted in the paravertebral musculature is dependency in nature as she has been lying supine for 4 weeks. I discussed with the patient rehab placement. Will begin with transfers standing as tolerated while she is in the hospital. Have encouraged her to get to a chair for each meal. She is cooperative and understands her goals." Continue to monitor Oral candidiasis Denies sore throat or dysphagia Nystatin swish Abnormal EKG EKG sinus rhythm, nonspecific T wave changes in inferior and anterior leads that appear new from EKG 09/22/23 per my interpretation Denies CP or SOB Troponin negative x 2 09/25/23 Echo: EF: 60%, grade I diastolic dysfunction Repeat Echo with EF of 60 to 65%, Normal right ventricular function, no significant valvular disease Continue to monitor on telemetry T2DM (type 2 diabetes mellitus): A1c: 6.5 on 11/01/23 Hold home oral agents Novolog sliding scale per protocol with correction coverage for now. If patient starts increasing oral intake will plan on carb coverage also HTN (hypertension) HCTZ had been discontinued during recent rehab secondary to low BP's In ER BP's stable Monitor BP Diarrhea Previously on colesevelam Pt requesting restart Diet: DMII DVT Prophylaxis: Heparin SQ CODE STATUS: DNR/DNI as per discussion with pt Dispo: per PT/OT, orthospine recommending acute rehab Admission and Anticipated Discharge Date Admission Date: December 13, 2023 Subjective patient was seen laying in bed in the morning Notes she has been having some diarrhea Lots of questions Requesting urology follow-up for the indwelling catheter since she missed her urology appointment Also asking for dietitian to give further recommendations. States she last saw a dietitian on Saturday and has some remaining questions given her persistent nausea and poor appetite Also requesting to discontinue the Zyprexa states that it was started to help with her appetite but is not helping. Notes she is also been on Remeron to help with that. Review of Systems Review of Systems: All systems reviewed & are unremarkable except as noted in Subjective Physical Exam Physical Exam: General: Alert, oriented. No acute distress Psych: Appropriate mood and affect Neuro: some difficulty with movements in the bed HEENT: NC/AT CV: RRR Resp: Breath sounds clear bilaterally, no increased effort of breathing Abdomen: Soft, nontender Extremities: No edema in lower extremities bilaterally. Results & Data Results & Data Vital Signs (Past 12 Hours) Vital Signs Temp Pulse Pulse Resp BP Pulse Ox O2 Del Method 12/17/23 08:21 82 12/17/23 08:15 36.7 C 83 20 110/68 93 Room Air 12/17/23 04:22 36.6 C 76 20 113/68 94 Room Air 12/17/23 00:13 36.9 C 82 20 116/69 95 Room Air Diagnostic Findings Chest X-Ray 12/13/23 13:21 XR chest 1V portable HISTORY: 73 years-old Female weakness acute weakness COMPARISON: 09/24/2023 TECHNIQUE: AP view of the chest FINDINGS: Cardiac silhouette is enlarged. No pneumothorax, pleural effusion, airspace consolidation or pulmonary edema. Degenerative changes of the shoulders and spine. IMPRESSION: Cardiomegaly without acute process. ACT 112: Negative or not required by law. The above report was generated using voice recognition software. It may contain grammatical, syntax or spelling errors. Electronically signed by: Boyd Negrete M.D. 12/13/2023 2:[address] 12/13/23 13:43 CT head/brain wo con CLINICAL HISTORY: 73 years-old Female with weakness. Acute weakness TECHNIQUE: Multiple axial CT images of the head were obtained without contrast. A dose lowering technique was utilized adhering to the principles of ALARA. CT DOSE: 547.75 mGy.cm COMPARISON: None. FINDINGS: No acute intracranial hemorrhage, midline shift, intracranial mass, hydrocephalus, territorial ischemia or abnormal extra-axial collection. Involutional changes with extensive white matter hypodensities suggestive of chronic microvascular ischemic disease. The calvarium is intact. The paranasal sinuses, mastoid air cells, and middle ear cavities are clear. IMPRESSION: No acute intracranial abnormality ACT 112: Negative or not required by law. The above report was generated using voice recognition software. It may contain grammatical, syntax or spelling errors. Electronically signed by: Boyd Negrete M.D. 12/13/2023 2:31 PM Lumbar Spine MRI 12/13/23 15:05 MRI OF THE LUMBAR SPINE WITH AND WITHOUT CONTRAST CLINICAL HISTORY: Low back pain. Weakness. Evaluate for discitis. COMPARISON STUDY: Lumbar spine fluoroscopic images February 12, 2023. Lumbar spine MRI October 31, 2023. Lumbar spine CT November 01, 2023. TECHNIQUE: Utilizing a 1.5 Emilee magnet and dedicated coil, multiplanar, multiecho imaging of the lumbar spine was performed before and after uneventful IV administration of 7.5 mL of Gadavist. FINDINGS: This exam is mildly compromised by motion artifact and susceptibility artifact from the surgical hardware. For purposes of numbering on this exam, the L5-S1 disc space is assigned to axial image 46 of 51. Slight anterolisthesis of L5 on S1 is unchanged. L1 kyphoplasty is noted. There may also be a small amount of cement within the superior aspect of the L2 vertebral body. Cement slightly extends into the disc space. No intracanalicular mass or fluid collection is present. There are postoperative findings consistent with posterior decompression and fusion from L2 through S1. There are are disc spacers at the L2-L3, L3-L4, L4-L5 and L5-S1 levels. The conus terminates at the L1-L2 level. Moderate paraspinal edema at the L1-L2 level again noted. This was shown on previous MRI. There is no significant increased T2 signal within the disc spaces. L1-2: There is moderate central canal stenosis due to retropulsion, facet arthrosis and ligamentous hypertrophy. This is unchanged. There is moderate bilateral neural foraminal stenosis, suboptimally assessed on this exam. L2-3: No central canal stenosis is present. Evaluation of the neural foramen is significantly compromised but appears unchanged without severe stenosis. L3-4: There is no central canal stenosis status post decompression. Neural foramen are patent. L4-5: There is no significant central canal stenosis. Neural foramen are patent. L5-S1: Central canal is patent. Neural foramen are suboptimally assessed due to artifact. There is mild to moderate bilateral neural foraminal stenosis which is similar to previous MRI. IMPRESSION: 1. Extensive postoperative/postprocedural findings within the lumbosacral spine, as described above. Moderate paraspinal edema at the L1-L2 level, also shown on MRI October 31, 2023. This is nonspecific and may be posttraumatic/post procedural. However, an infectious etiology cannot be excluded and correlation with clinical evidence for an infectious process is recommended. If indicated, short-term follow-up MRI of the lumbar spine could be obtained. 2. Exam compromised by motion artifact and susceptibility artifact from the surgical hardware. 3. No intracanalicular mass or fluid collection. No paraspinal fluid collections. 4. No increased T2 signal within the disc spaces to definitively indicate discitis. 5. Multilevel degenerative changes within the lumbar spine, as above. ACT 112: Negative or not required by law. Electronically signed by: Davin Hudson M.D. 12/13/2023 6:20 PM Abdomen/Pelvis CT 12/15/23 13:48 CT abd pelvis IV con only CLINICAL HISTORY: abd pain, intract N/V, diarrhea TECHNIQUE: Helical axial images of the abdomen and pelvis were obtained and displayed. Automated dose lowering techniques and/or adjustment according to patient size were utilized for this exam. This exam was performed with intravenous contrast. CT DOSE: 1348.18 mGy.cm COMPARISON: Comparison is made to CT abdomen pelvis 10/24/2023 FINDINGS: Lower chest: Bibasilar atelectasis versus scarring is seen. Liver: Unremarkable. No focal lesions are seen. Gallbladder and biliary tree: Patient is status post cholecystectomy. No intra- or extrahepatic biliary ductal dilation. Pancreas: Fatty replacement of the pancreas is seen. Spleen: Unremarkable. Adrenals: Unremarkable. Kidneys and ureters: Unremarkable. Bladder: Grayson catheter is seen. Reproductive organs: Unremarkable. Bowel: Diverticulosis is seen without diverticulitis. The appendix is normal. Lymph nodes Retroperitoneal: Subcentimeter lymph nodes are noted. Pelvic: Unremarkable. Mesenteric: Unremarkable. Peritoneum: Normal. Vessels: Unremarkable. Abdominal wall: Unremarkable. Bones: Degenerative changes and postsurgical changes of fixation and cemented arthroplasties. Postsurgical changes of right sacroiliac fusion. IMPRESSION: 1. No acute abnormalities to explain nausea and vomiting. 2. Diverticulosis without diverticulitis. ACT 112: Negative or not required by law. Electronically signed by: Evans Jeff M.D. 12/15/2023 2:40 PM
--- NOTE | 2023-12-17 15:20 | Urology Consultation ---
Date of Consultation December 17, 2023 Assessment & Plan (1) Urine retention: 73 yo/F with history of lumbar compression fracture status post kyphoplasty L1 and L2 on 11/04/[address] Herr admitted for generalized weakness and failure to thrive. Patient has had a Grayson catheter on and off since her revision sacroiliac joint fusion surgery in August and she was supposed to follow-up with [facility] urology yesterday regarding urinary retention/possible voiding trial. Urology is consulted regarding urinary retention/Grayson catheter Catheter was removed just prior to my arrival Recommend monitor for void and bladder scan as needed If unable to void or elevated postvoid residual, then recommend replace Grayson catheter She can follow-up with urology as an outpatient with either [facility] or [facility] urology Continue supportive care and medical management per hospital medicine service will sign off, please contact our service with any additional questions or concerns History of Present Illness Attending Physician: Roseann Neri MD History of Present Illness This is a 73-year-old female with history of lumbar compression fracture status post kyphoplasty L1 and L2 on 11/04/[address] Herr who presented to ED for evaluation of nausea, vomiting, poor appetite and weakness. Patient has had a Grayson catheter on and off since her revision sacroiliac joint fusion surgery in August and she was supposed to follow-up with [facility] yesterday regarding urinary retention/possible voiding trial. Urology is consulted regarding urinary retention, Grayson catheter. Chart reviewed. Labs today shows creatinine 0.37, WBC 4.12, hemoglobin 11.3. Urinalysis on arrival showed 2+ protein, 1+ ketones, 1+ blood, positive nitrates, 2+ LE, >50 WBC, >20 RBC, 3-5 epithelial cells and 4+ bacteria. Urine culture 12/12 with E. coli, pansensitive. Blood cultures no growth x 48 hours. Patiently was initially on ceftriaxone. ID suggested discontinuation of ce ftriaxone and possibly de-escalating to amoxicillin if treatment indicated for UTI. CT abdomen pelvis 12/14 showed no hydronephrosis, Grayson catheter within the bladder. Patient seen and examined at bedside. She is awake and resting in bed. present. She reports improvement with nausea and vomiting. Denies pain at present. She has been working with physical therapy. She reports her Grayson catheter was removed just prior to my arrival. She reports Grayson catheter has been on and off since her surgery in August. She reports she was voiding on her own when she was leaving rehab, but had catheter replaced prior to going home as a precaution. No previous history of urinary retention prior to August. She was to have consultation with outpatient [facility] urology yesterday. No dysuria or hematuria. No fever or chills. Allergies Allergy/AdvReac Type Severity Reaction Status Date / Time Sulfa (Sulfonamide Allergy Intermediate Rash Verified 12/13/23 15:44 Antibiotics) tramadol Allergy Mild Verified 12/13/23 15:44 baclofen Allergy Verified 12/13/23 15:44 gabapentin AdvReac Severe Nightmare Verified 12/13/23 15:44 Home Medications Medication Instructions Recorded Confirmed Type pioglitazone 15 mg tablet 15 mg PO QAM 09/11/21 12/13/23 History cholecalciferol (vitamin D3) 50 50 mcg PO DAILY 09/22/23 12/13/23 History mcg (2,000 unit) tablet (Vitamin D3) colchicine 0.6 mg tablet (Colcrys) 0.6 mg PO BID PRN Gout Flare 09/22/23 12/13/23 History levothyroxine 200 mcg tablet 200 mcg PO QAM 09/22/23 12/13/23 History ondansetron 4 mg disintegrating 4 mg translingual Q6 PRN 09/24/23 12/13/23 History tablet NAUSEA/VOMITING docusate sodium 100 mg capsule 100 mg PO BID PRN Constipation 10/09/23 12/13/23 History lorazepam 0.5 mg tablet 0.5 mg PO Q8H PRN Nausea 12/13/23 12/13/23 History olanzapine 2.5 mg tablet 2.5 mg PO HS 12/13/23 12/13/23 History pantoprazole 40 mg tablet,delayed 40 mg PO BID 12/13/23 12/13/23 History release tamsulosin 0.4 mg capsule 0.4 mg PO DAILY 12/13/23 12/13/23 History Patient History Medical History 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 Muscle spasm severe History of COVID-19 03/2022- mild symptoms Lumbar disc herniation with radiculopathy Surgical History Hx of bilateral cataract extraction History of lumbar spinal fusion 01/21/2023 [facility] L2-L4 decompression/fusion (09/14/21): Grade view 1, Garcia#2, ETT [address] [facility] Nausea and vomiting after administration of anesthetic agent states scopolamine patch worked very well after last procedure Hx of dilation and curettage Hx of arthroscopy of left knee meniscus injury Hx of cholecystectomy Hx of tonsillectomy History of x2 History of total knee replacement Left 2012, Right 2006 Family History Mother Sclerosing cholangitis Father Alcohol use disorder Social History Smoking Status: Never smoker Second Hand Exposure: No; Do You Dip or Chew Tobacco: No; Hx Alcohol Use: No Hx Substance Use: No Preferred Language: Bengali Communication Ability: Effective Meeting Manager Required: No Beliefs That Will Affect Care: None marital status: Current Living Situation: Spouse Current Living Situation Comment: Home with current occupational status: retired Other Information That Helps Us Care for You: No Feels Safe at Home: Yes Safety Concerns: Feels Safe At This Time Assistive Devices: Denture - Upper, Glasses and Wheelchair Review of Systems Review of Systems: All systems reviewed & are unremarkable except as noted in HPI & below Physical Exam Constitutional: well developed, well nourished and + obese; no acute distress Respiratory: normal respiratory effort; no respiratory distress and no labored breathing Gastrointestinal (Abdomen): Inspection/Auscultation: abdomen normal to inspection Musculoskeletal: Head/Neck/Chest: normocephalic Neurologic: moves all extremities and awake Psychiatric: Orientation: alert and oriented x 3 Results & Data Vital Signs (Past 12 Hours) Vital Signs Temp Pulse Pulse Resp BP BP Pulse Ox 12/17/23 15:05 85 12/17/23 12:38 36.6 C 87 16 117/74 96 12/17/23 08:21 82 12/17/23 08:15 36.7 C 83 20 110/68 93 12/17/23 04:22 36.6 C 76 20 113/68 94 O2 Del Method 12/17/23 15:05 12/17/23 12:38 Room Air 12/17/23 08:21 12/17/23 08:15 Room Air 12/17/23 04:22 Room Air PG Care Time/CCT Total # of Minutes Spent Total Time Spent with Patient: Total time spent is greater than 50% in coordination of care (as documented) at patient's floor/unit and/or counseling patient: Coding Level of Care Code 34519 INT INP/OBS CARE 1/40MIN Diagnoses Urine retention R33.9
[2023-12-17] MEDS: ADVANCED PROBIOTIC 625 MG CAPSULE PO SCH (18:19)
[2023-12-17] MEDS: MAGNESIUM CHLORIDE W/CALCIUM 64MG DELAYED REL TAB PO SCH (20:27)
[2023-12-17] MEDS ORDERED: COLESEVELAM 625 MG PO SCH (21:00)
--- NOTE | 2023-12-18 06:01 | Electrocardiogram Report ---
Test Reason : Blood Pressure : */* mmHG Vent. Rate : 82 BPM Atrial Rate : 82 BPM P-R Int : 188 ms QRS Dur : 74 ms QT Int : 402 ms P-R-T Axes : -3 27 -4 degrees QTcB Int : 469 ms Normal sinus rhythm Low voltage QRS Abnormal ECG When compared with ECG of 13-Dec-2023 13:20, No significant change was found Confirmed by Tristan Kitchen ([id number]) on 12/18/2023 6:01:28 AM Referred By: REFERRED SELF Confirmed By: Tristan Kitchen
[2023-12-18 06:18] LABS: Hematocrit (blood only) 32.3 % (37.0-47.0); Hemoglobin 10.4 g/dl (12.0-16.0); Mean Corpuscular Hemoglobin 28.6 pg (25.0-34.0); Mean Corpuscular Hgb Conc 32.2 g/dL (32.0-36.0); Mean Corpuscular Volume 88.7 fL (80.0-100.0); Platelet Count 225 K/uL (130-400); RDW Coefficient of Variation 15.7 % (11.5-14.5); RDW Standard Deviation 50.6 fL (36.4-46.3); Red Blood Count 3.64 M/uL (4.20-5.40); White Blood Count 4.22 K/ul (4.8-10.8)
[2023-12-18 06:46] LABS: BUN Creatinine Ratio 8.8 (10-20); Calcium 7.9 mg/dl (8.6-10.3); Creatinine Clr Calc Pharmacy 166.4 ml/min; Magnesium 1.6 mg/dl (1.7-2.4); Phosphorus 3.2 mg/dl (2.5-4.9); Potassium 3.3 mmol/L (3.5-5.1)
[2023-12-18 07:16] LABS: Basophils # (auto) 0.03 K/uL (0.00-0.20); Basophils % (auto) 0.7 %; Eosinophils # (auto) 0.15 K/uL (0.00-0.50); Eosinophils % (auto) 3.6 %; Immature Granulocytes # (auto) 0.01 K/uL (0.01-0.20); Immature Granulocytes % (auto) 0.2 %; Lymphocytes # (auto) 2.47 K/uL (1.20-3.40); Lymphocytes % (auto) 58.5 %; Monocytes # (auto) 0.43 K/uL (0.11-0.59); Monocytes % (auto) 10.2 %; Neutrophils # (auto) 1.13 K/uL (1.40-6.50); Neutrophils % (auto) 26.8 %
[2023-12-18] MEDS: POTASSIUM CHLORIDE PWD 20 MEQ PACK PO ONE (08:53)
--- NOTE | 2023-12-18 10:04 | Hospitalist Progress Note ---
Date of Service December 18, 2023 Assessment & Plan (1) UTI (urinary tract infection): (2) Oral candidiasis: Plan 73 year old female with PMHx significant for DM II, HTN, HLD, back pain with multiple lumbar spine procedures, ongoing nausea and others listed below presented to ER with c/o progressive generalized weakness, poor oral intake and continued nausea. Generalized weakness Failure to thrive in adult No leukocytosis, No VALDEZ CT head: no acute intracranial abnormality CXR: no infiltrate noted UA suggestive of possible infection Urine culture currently growing gram-negative bacilli Blood cultures negative CT lumbar spine with question of possible infection with noted edema Orthospine and noted no infection Fall precautions PT/OT eval noted Linoleum Layer eval noted Continue to encourage oral intake/dietary supplementation Optimize nausea control Complicated UTI Patient had a chronic indwelling urinary catheter on presentation Recent history of urinary retention requiring Grayson catheter Grayson changed in ER on admission UA suggestive of infection Urine culture grew pansensitive E coli Was on IV Rocephin now deescalated to amoxicillin x 10 days of treatment Continue Flomax Urology eval noted. Patient had voiding trial yesterday and has been voiding since. Monitor Nausea Diarrhea Poor appetite Ongoing nausea and poor oral intake x 3 months. Has loose BMs daily since discontinuing narcotics without melena or hematochezia CT abdomen pelvis with no acute pathology Stool culture was negative with negative C. difficile Continue PPI Antiemetics as needed Was on Welchol in the past per patient Will appreciate GI recs Hypokalemia Hypomagnesemia Replete as needed Discussed trial of po repletion today. Patient open to it Will replete po and monitor Abnormal TSH Hypothyroidism TSH: 0.028, Free T4: 2.7 Home levothyroxine was reduced from 200mcg to 150mcg daily Will need repeat TSH in 6-8 weeks from change PCP follow up History of back pain: History of compression fracture of spine: History of spinal surgery: R/O Discitis Hx of multiple lumbosacral spine surgery S/P R SI joint revision, on 09/25/[address] Herr S/P kyphoplasty L1 L2 on 11/04/[address] Herr H/O SI joint fusion in past MRI lumbar spine with concern for infection based on edema previously noted on previous MRIs Was on Butrans patch but secondary to cost pt chose to discontinue and use oxycodone. Off oxycodone Pain controlled with tylenol prn Oral candidiasis Denied sore throat or dysphagia Nystatin swish Abnormal EKG EKG sinus rhythm, nonspecific T wave changes in inferior and anterior leads that appear new from EKG 09/22/23 per my interpretation Denied CP or SOB Troponin negative x 2 09/25/23 Echo: EF: 60%, grade I diastolic dysfunction Repeat Echo with EF of 60 to 65%, Normal right ventricular function, no significant valvular disease Continue to monitor on telemetry T2DM (type 2 diabetes mellitus): A1c: 6.5 on 11/01/23 Hold home oral agents Novolog sliding scale per protocol with correction coverage for now. If patient starts increasing oral intake will plan on carb coverage also HTN (hypertension) HCTZ had been discontinued during recent rehab secondary to low BP's In ER BP's stable Monitor BP Diet: DMII DVT Prophylaxis: Heparin SQ CODE STATUS: DNR/DNI as per discussion with pt Dispo: per PT/OT, orthospine recommending acute rehab I spent a total of 55 minutes coordinating, documenting and providing care for this patient excluding time spent in performance of separately billed services Admission and Anticipated Discharge Date Admission Date: December 13, 2023 Subjective Patient seen and examined Reports weakness Reports nausea and diarrhea Denied vomiting Reports low back pain is controlled with tylenol. currently at 3/10 Reports she is trying to increase her oral intake. Tolerating eggs better. Denied any dysphagia/odynophagia Denied fever, chills, dysuria,freq, urgency Physical Exam Constitutional: + well hydrated; no acute distress Eyes: PERRL, conjunctivae normal, anicteric sclerae ENMT: external ear and nose normal, oropharynx normal Respiratory: normal respiratory effort, lungs clear to auscultation Cardiovascular: Rate/Rhythm: regular rate and regular rhythm Gastrointestinal (Abdomen): normal bowel sounds, soft, nontender, no hepatosplenomegaly Musculoskeletal: No pedal edema Neurologic: PERRL, EOMI, accommodation nl, no face palsy, no dysarthria Psychiatric: A+Ox3, euthymic affect Results & Data Results & Data Vital Signs (Past 12 Hours) Vital Signs Temp Pulse Pulse Resp BP Pulse Ox O2 Del Method 12/18/23 08:14 81 12/18/23 07:28 36.5 C 76 20 116/69 95 Room Air 12/18/23 07:15 Room Air 12/18/23 04:23 36.7 C 80 20 110/62 94 Room Air 12/18/23 00:49 36.5 C 83 20 112/66 92 Room Air Laboratory Results Abnormal lab results 12/17/23 12/18/23 Range/Units 12:10 05:53 WBC 4.22 L (4.8-10.8) K/ul RBC 3.64 L (4.20-5.40) M/uL Hgb 10.4 L (12.0-16.0) g/dl Hct 32.3 L (37.0-47.0) % RDW Std Deviation 50.6 H (36.4-46.3) fL RDW Coeff of Carine 15.7 H (11.5-14.5) % Neut # (Auto) 1.13 L (1.40-6.50) K/uL Potassium 3.3 L (3.5-5.1) mmol/L Chloride 110 H (98-107) mmol/L BUN 3 L (6-23) mg/dl Creatinine 0.34 L (0.6-1.2) mg/dl BUN/Creatinine Ratio 8.8 L (10-20) POC Glucose 116 H (70-99) mg/dl Calcium 7.9 L (8.6-10.3) mg/dl Magnesium 1.6 L (1.7-2.4) mg/dl
[2023-12-18] MEDS: POTASSIUM CHLORIDE CRTAB 20 MEQ TABCR PO STA (11:00)
--- NOTE | 2023-12-18 11:59 | Gastrointestinal Consultation ---
Date of Consultation December 18, 2023 Assessment & Plan (1) Nausea: Nonspecific. No imaging findings with GI concerns. Protonix 40 mg BID. Antiemetics prn. Will discuss with Dr. Whitehead consideration of EGD. Supervising Physician Co-Signing Physician Notes I saw and examined this patient with our nurse practitioner and agree with her assessment and plan. Patient with persistent nausea for the last 2 months no clear etiology. Possibly related to medication. Will proceed with endoscopy in a.m. to rule out significant pathology in the upper GI tract to explain her symptoms. History of Present Illness Reason for Consultation: Nausea, diarrhea Attending Physician: Gina Talavera MD History of Present Illness Patient is a 73 yo female with multiple recent back surgeries. She is admitted currently with a urinary tract infection and GI has been consulted again due to ongoing nonspecific symptoms of nausea. The patient notes poor appetite. She feels intermittently nauseated. She was previously struggling with constipation and is now struggling with loose stools intermittently. C diff negative. No LFT abnormalities. No CT abdomen/pelvis findings to explain GI symptoms. She has been on a bowel regimen. Of note, she's on Nystatin for oral thrush. Allergies Allergy/AdvReac Type Severity Reaction Status Date / Time Sulfa (Sulfonamide Allergy Intermediate Rash Verified 12/13/23 15:44 Antibiotics) tramadol Allergy Mild Verified 12/13/23 15:44 baclofen Allergy Verified 12/13/23 15:44 gabapentin AdvReac Severe Nightmare Verified 12/13/23 15:44 Home Medications Medication Instructions Recorded Confirmed Type pioglitazone 15 mg tablet 15 mg PO QAM 09/11/21 12/13/23 History cholecalciferol (vitamin D3) 50 50 mcg PO DAILY 09/22/23 12/13/23 History mcg (2,000 unit) tablet (Vitamin D3) colchicine 0.6 mg tablet (Colcrys) 0.6 mg PO BID PRN Gout Flare 09/22/23 12/13/23 History levothyroxine 200 mcg tablet 200 mcg PO QAM 09/22/23 12/13/23 History ondansetron 4 mg disintegrating 4 mg translingual Q6 PRN 09/24/23 12/13/23 History tablet NAUSEA/VOMITING docusate sodium 100 mg capsule 100 mg PO BID PRN Constipation 10/09/23 12/13/23 History lorazepam 0.5 mg tablet 0.5 mg PO Q8H PRN Nausea 12/13/23 12/13/23 History olanzapine 2.5 mg tablet 2.5 mg PO HS 12/13/23 12/13/23 History pantoprazole 40 mg tablet,delayed 40 mg PO BID 12/13/23 12/13/23 History release tamsulosin 0.4 mg capsule 0.4 mg PO DAILY 12/13/23 12/13/23 History colesevelam 625 mg tablet 1,250 mg PO BID 12/17/23 12/17/23 History Patient History Medical History 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 Muscle spasm severe History of COVID-19 03/2022- mild symptoms Lumbar disc herniation with radiculopathy Surgical History Hx of bilateral cataract extraction History of lumbar spinal fusion 01/21/2023 [facility] L2-L4 decompression/fusion (09/14/21): Grade view 1, Garcia#2, ETT 7.0 at [facility] Nausea and vomiting after administration of anesthetic agent states scopolamine patch worked very well after last procedure Hx of dilation and curettage Hx of arthroscopy of left knee meniscus injury Hx of cholecystectomy Hx of tonsillectomy History of x2 History of total knee replacement Left 2012, Right 2006 Family History Mother Sclerosing cholangitis Father Alcohol use disorder Social History Smoking Status: Never smoker Second Hand Exposure: No; Do You Dip or Chew Tobacco: No; Hx Alcohol Use: No Hx Substance Use: No Preferred Language: Estonian Communication Ability: Effective Command And Control Required: No Beliefs That Will Affect Care: None marital status: Current Living Situation: Spouse Current Living Situation Comment: Home with current occupational status: retired Other Information That Helps Us Care for You: No Feels Safe at Home: Yes Safety Concerns: Feels Safe At This Time Assistive Devices: Denture - Upper, Glasses and Wheelchair Review of Systems Constitutional: no fever and no chills Gastrointestinal: + nausea Psychiatric: + problem reported Physical Exam Constitutional: well developed; no acute distress and not ill appearing Gastrointestinal (Abdomen): normal bowel sounds, soft, nontender, no hepatosplenomegaly Psychiatric: Orientation: alert and oriented x 3 Results & Data Vital Signs (Past 12 Hours) Vital Signs Temp Pulse Pulse Resp BP Pulse Ox O2 Del Method 12/18/23 11:33 36.5 C 86 18 125/79 98 Room Air 12/18/23 08:14 81 12/18/23 07:28 36.5 C 76 20 116/69 95 Room Air 12/18/23 07:15 Room Air 12/18/23 04:23 36.7 C 80 20 110/62 94 Room Air 12/18/23 00:49 36.5 C 83 20 112/66 92 Room Air Laboratory Results Laboratory Results - last 48 hr 12/16/23 12/16/23 12/17/23 16:58 21:00 06:48 WBC 4.12 L RBC 3.97 L Hgb 11.3 L Hct 35.2 L MCV 88.7 MCH 28.5 MCHC 32.1 RDW Std Deviation 55.0 H RDW Coeff of Carine 17.0 H Plt Count 247 MPV 12.4 Immature Gran % (Auto) 0.5 Neut % (Auto) 34.3 Lymph % (Auto) 50.7 Barry % (Auto) 10.4 Eos % (Auto) 3.4 Baso % (Auto) 0.7 Neut # (Auto) 1.41 Lymph # (Auto) 2.09 Barry # (Auto) 0.43 Eos # (Auto) 0.14 Baso # (Auto) 0.03 Immature Gran # (Auto) 0.02 Sodium 137 Potassium 3.4 L Chloride 107 Carbon Dioxide 24 Anion Gap 6 BUN 4 L Creatinine 0.37 L Est Cr Clr Drug Dosing 152.1 eGFR 107.75 BUN/Creatinine Ratio 10.8 Glucose 83 POC Glucose 107 H 118 H Calcium 8.2 L Phosphorus 3.3 Magnesium 1.6 L Total Bilirubin 0.3 AST 13 ALT 3 L Alkaline Phosphatase 91 Total Protein 5.4 L Albumin 2.4 L Globulin 3.0 Albumin/Globulin Ratio 0.8 L 12/17/23 12/17/23 12/17/23 07:57 12:10 17:13 WBC RBC Hgb Hct MCV MCH MCHC RDW Std Deviation RDW Coeff of Carine Plt Count MPV Immature Gran % (Auto) Neut % (Auto) Lymph % (Auto) Barry % (Auto) Eos % (Auto) Baso % (Auto) Neut # (Auto) Lymph # (Auto) Barry # (Auto) Eos # (Auto) Baso # (Auto) Immature Gran # (Auto) Sodium Potassium Chloride Carbon Dioxide Anion Gap BUN Creatinine Est Cr Clr Drug Dosing eGFR BUN/Creatinine Ratio Glucose POC Glucose 88 116 H 93 Calcium Phosphorus Magnesium Total Bilirubin AST ALT Alkaline Phosphatase Total Protein Albumin Globulin Albumin/Globulin Ratio 12/17/23 12/18/23 12/18/23 20:21 05:53 07:59 WBC 4.22 L RBC 3.64 L Hgb 10.4 L Hct 32.3 L MCV 88.7 MCH 28.6 MCHC 32.2 RDW Std Deviation 50.6 H RDW Coeff of Carine 15.7 H Plt Count 225 MPV 12.0 Immature Gran % (Auto) 0.2 Neut % (Auto) 26.8 Lymph % (Auto) 58.5 Barry % (Auto) 10.2 Eos % (Auto) 3.6 Baso % (Auto) 0.7 Neut # (Auto) 1.13 L Lymph # (Auto) 2.47 Barry # (Auto) 0.43 Eos # (Auto) 0.15 Baso # (Auto) 0.03 Immature Gran # (Auto) 0.01 Sodium 139 Potassium 3.3 L Chloride 110 H Carbon Dioxide 24 Anion Gap 5 BUN 3 L Creatinine 0.34 L Est Cr Clr Drug Dosing 166.4 eGFR 109.97 BUN/Creatinine Ratio 8.8 L Glucose 78 POC Glucose 88 75 Calcium 7.9 L Phosphorus 3.2 Magnesium 1.6 L Total Bilirubin AST ALT Alkaline Phosphatase Total Protein Albumin Globulin Albumin/Globulin Ratio 12/18/23 12:25 WBC RBC Hgb Hct MCV MCH MCHC RDW Std Deviation RDW Coeff of Carine Plt Count MPV Immature Gran % (Auto) Neut % (Auto) Lymph % (Auto) Barry % (Auto) Eos % (Auto) Baso % (Auto) Neut # (Auto) Lymph # (Auto) Barry # (Auto) Eos # (Auto) Baso # (Auto) Immature Gran # (Auto) Sodium Potassium Chloride Carbon Dioxide Anion Gap BUN Creatinine Est Cr Clr Drug Dosing eGFR BUN/Creatinine Ratio Glucose POC Glucose 81 Calcium Phosphorus Magnesium Total Bilirubin AST ALT Alkaline Phosphatase Total Protein Albumin Globulin Albumin/Globulin Ratio PG Care Time/CCT Total # of Minutes Spent Total Time Spent with Patient: Total time spent is greater than 50% in coordination of care (as documented) at patient's floor/unit and/or counseling patient: Coding Level of Care Code 17617 INT INP/OBS CARE 3/75MIN Diagnoses Nausea R11.0
[2023-12-18] MEDS: CHOLESTYRAMINE LIGHT 4 GM PKT PO SCH (21:25)
[2023-12-19] MEDS ORDERED: Nursing to Pharmacy Communication SCH ×2 (00:30→14:45)
[2023-12-19] MEDS: INSULIN ASPART PER UNIT CHARGE SC SCH ×2 (00:53→17:40)
[2023-12-19 06:53] LABS: Hematocrit (blood only) 36.8 % (37.0-47.0); Hemoglobin 11.7 g/dl (12.0-16.0); Mean Corpuscular Hemoglobin 28.3 pg (25.0-34.0); Mean Corpuscular Hgb Conc 31.8 g/dL (32.0-36.0); Mean Corpuscular Volume 88.9 fL (80.0-100.0); Platelet Count 240 K/uL (130-400); RDW Coefficient of Variation 15.7 % (11.5-14.5); RDW Standard Deviation 50.8 fL (36.4-46.3); Red Blood Count 4.14 M/uL (4.20-5.40); White Blood Count 3.75 K/ul (4.8-10.8)
[2023-12-19 07:03] LABS: BUN Creatinine Ratio 5.9 (10-20); Calcium 8.2 mg/dl (8.6-10.3); Magnesium 1.7 mg/dl (1.7-2.4); Phosphorus 3.3 mg/dl (2.5-4.9); Potassium 3.5 mmol/L (3.5-5.1)
--- NOTE | 2023-12-19 10:12 | History & Physical Bridge Note ---
Date of Service December 19, 2023 History & Physical Bridge Note I have examined the patient, reviewed the History & Physical and in the interval since the performance of the History & Physical I have noted the following changes of clinical significance: no changes noted K is 3.5 this AM. She notes some nausea after taking Cholestyramine. Her home med Welchol is not on formulary. We can switch to Colestid which is avaialble at the hospital. Keep NPO for EGD today. Supervising Physician Co-Signing Physician Notes I saw and examined this patient with our nurse practitioner and agree with her assessment and plan. Will proceed with upper endoscopy for further evaluation of her nausea.
--- NOTE | 2023-12-19 10:18 | Hospitalist Progress Note ---
Date of Service December 19, 2023 Assessment & Plan (1) UTI (urinary tract infection): (2) Oral candidiasis: Plan 73 year old female with PMHx significant for DM II, HTN, HLD, back pain with multiple lumbar spine procedures, ongoing nausea and others listed below presented to ER with c/o progressive generalized weakness, poor oral intake and continued nausea. Generalized weakness Failure to thrive in adult No leukocytosis, No VALDEZ CT head: no acute intracranial abnormality CXR: no infiltrate noted UA suggestive of possible infection Urine culture grew E coli Blood cultures negative CT lumbar spine with question of possible infection with noted edema Orthospine and noted no infection Fall precautions PT/OT eval noted [employer] Tester eval noted Continue to encourage oral intake/dietary supplementation Optimize nausea control Nausea Diarrhea Poor appetite Ongoing nausea and poor oral intake x 3 months. Has loose BMs daily since discontinuing narcotics without melena or hematochezia CT abdomen pelvis with no acute pathology Stool culture was negative with negative C. difficile Continue PPI Antiemetics as needed Was on Welchol in the past per patient GI eval noted Started on cholestyramine by GI yesterday, switched to colestipol today Planned for EGD by GI today Hypokalemia Hypomagnesemia Encourage potassium rich diet K is 3.5 today. Monitor Complicated UTI Patient had a chronic indwelling urinary catheter on presentation Recent history of urinary retention requiring Grayson catheter Grayson changed in ER on admission UA suggestive of infection Urine culture grew pansensitive E coli Was on IV Rocephin now deescalated to amoxicillin x 10 days of treatment Continue Flomax Urology eval noted. Patient had voiding trial on 12/17/23 and has been voiding since. Monitor Abnormal TSH Hypothyroidism TSH: 0.028, Free T4: 2.7 Home levothyroxine was reduced from 200mcg to 150mcg daily Will need repeat TSH in 6-8 weeks from change PCP follow up History of back pain: History of compression fracture of spine: History of spinal surgery: R/O Discitis Hx of multiple lumbosacral spine surgery S/P R SI joint revision, on 09/25/[address] Herr S/P kyphoplasty L1 L2 on 11/04/[address] Herr H/O SI joint fusion in past MRI lumbar spine with concern for infection based on edema previously noted on previous MRIs Was on Butrans patch but secondary to cost pt chose to discontinue and use oxycodone. Off oxycodone Pain controlled with tylenol prn Oral candidiasis Denied sore throat or dysphagia Nystatin swish Abnormal EKG EKG sinus rhythm, nonspecific T wave changes in inferior and anterior leads that appear new from EKG 09/22/23 per my interpretation Denied CP or SOB Troponin negative x 2 09/25/23 Echo: EF: 60%, grade I diastolic dysfunction Repeat Echo with EF of 60 to 65%, Normal right ventricular function, no significant valvular disease Continue to monitor on telemetry T2DM (type 2 diabetes mellitus): A1c: 6.5 on 11/01/23 Hold home oral agents Novolog sliding scale per protocol with correction coverage for now. If patient starts increasing oral intake will plan on carb coverage also HTN (hypertension) HCTZ had been discontinued during recent rehab secondary to low BP's In ER BP's stable Monitor BP Diet: DMII DVT Prophylaxis: Heparin SQ CODE STATUS: DNR/DNI as per discussion with pt Dispo: per PT/OT, orthospine recommending acute rehab I spent a total of 50 minutes coordinating, documenting and providing care for this patient excluding time spent in performance of separately billed services Admission and Anticipated Discharge Date Admission Date: December 13, 2023 Subjective Patient seen and examined Reports weakness Vomited once yesterday after po potassium Reports no diarrhea today Denied any dysphagia/odynophagia Denied fever, chills, dysuria,freq, urgency Physical Exam Constitutional: + well hydrated; no acute distress Eyes: PERRL, conjunctivae normal, anicteric sclerae ENMT: external ear and nose normal, oropharynx normal Respiratory: normal respiratory effort, lungs clear to auscultation Cardiovascular: Rate/Rhythm: regular rate and regular rhythm Gastrointestinal (Abdomen): normal bowel sounds, soft, nontender, no hepatosplenomegaly Musculoskeletal: No pedal edema Neurologic: PERRL, EOMI, accommodation nl, no face palsy, no dysarthria Psychiatric: A+Ox3, euthymic affect Results & Data Results & Data Vital Signs (Past 12 Hours) Vital Signs Temp Pulse Pulse Resp BP Pulse Ox O2 Del Method 12/19/23 07:53 36.6 C 86 20 113/68 97 Room Air 12/19/23 07:26 82 12/19/23 04:42 36.3 C L 80 20 120/73 93 Room Air 12/18/23 23:44 36.7 C 76 20 115/68 93 Room Air Laboratory Results Abnormal lab results 12/19/23 Range/Units 05:59 WBC 3.75 L (4.8-10.8) K/ul RBC 4.14 L (4.20-5.40) M/uL Hgb 11.7 L (12.0-16.0) g/dl Hct 36.8 L (37.0-47.0) % MCHC 31.8 L (32.0-36.0) g/dL RDW Std Deviation 50.8 H (36.4-46.3) fL RDW Coeff of Carine 15.7 H (11.5-14.5) % Chloride 108 H (98-107) mmol/L BUN 2 L (6-23) mg/dl Creatinine 0.34 L (0.6-1.2) mg/dl BUN/Creatinine Ratio 5.9 L (10-20) Calcium 8.2 L (8.6-10.3) mg/dl
--- NOTE | 2023-12-19 13:10 | Anesthesiology Consultation ---
Date of Service December 19, 2023 Assessment & Plan Consults Requested medical & cardiac Pulmonary ASA ASA3 Proposed Anesthesia Anesthesia Type: MAC Risk / Benefits Reviewed With: PT / POA / Parent / Guardian, Accepts Plan and Informed Consent Obtained History Surgery Operation Date: 12/19/23 17:25 Proposed Procedures p Esophagogastroduodenoscopy Dr. Ventura Whitehead MD Height/Weight Height: 5 ft 5 in Weight: 87.7 kg Allergies Allergy/AdvReac Type Severity Reaction Status Date / Time Sulfa (Sulfonamide Allergy Intermediate Rash Verified 12/19/23 12:32 Antibiotics) tramadol Allergy Mild Verified 12/19/23 12:32 baclofen Allergy Verified 12/19/23 12:32 gabapentin AdvReac Severe Nightmare Verified 12/19/23 12:32 Medications Home Medications Medication Instructions Recorded Confirmed Last Taken pioglitazone 15 mg tablet 15 mg PO QAM 09/11/21 12/13/23 09/24/23 cholecalciferol (vitamin D3) 50 50 mcg PO DAILY 09/22/23 12/13/23 09/24/23 mcg (2,000 unit) tablet (Vitamin D3) colchicine 0.6 mg tablet (Colcrys) 0.6 mg PO BID PRN Gout Flare 09/22/23 12/13/23 Unknown levothyroxine 200 mcg tablet 200 mcg PO QAM 09/22/23 12/13/23 09/24/23 ondansetron 4 mg disintegrating 4 mg translingual Q6 PRN 09/24/23 12/13/23 Unknown tablet NAUSEA/VOMITING docusate sodium 100 mg capsule 100 mg PO BID PRN Constipation 10/09/23 12/13/23 Unknown lorazepam 0.5 mg tablet 0.5 mg PO Q8H PRN Nausea 12/13/23 12/13/23 Unknown olanzapine 2.5 mg tablet 2.5 mg PO HS 12/13/23 12/13/23 Unknown pantoprazole 40 mg tablet,delayed 40 mg PO BID 12/13/23 12/13/23 Unknown release tamsulosin 0.4 mg capsule 0.4 mg PO DAILY 12/13/23 12/13/23 Unknown colesevelam 625 mg tablet 1,250 mg PO BID 12/17/23 12/17/23 Unknown Active Medications Generic Name Dose Route Start Last Admin Trade Name Freq PRN Reason Stop Dose Admin Acetaminophen 650 mg 12/13/23 19:37 12/18/23 20:07 Acetaminophen 325 Mg Tab PO 01/12/24 19:36 650 mg Q4H PRN Administration Pain or Fever Amoxicillin 875 mg 12/16/23 21:00 12/19/23 09:54 Amoxicillin 875 Mg Tab PO 12/26/23 20:59 875 mg BID FERNY Administration Protocol Heparin Sodium (Porcine) 5,000 units 12/13/23 21:00 12/19/23 09:54 Heparin Sod 5,000 Unit/0.5 Ml Vial SQ 01/12/24 20:59 Not Given Q12 FERNY Promethazine HCl 6.25 mg in 50.25 mls @ 201 mls/hr 12/13/23 19:37 12/19/23 05:34 Phenergan IV 01/12/24 19:36 Infused Q6H PRN Infusion Nausea And Vomiting Insulin Aspart 0 units 12/19/23 01:00 12/19/23 05:40 Insulin Aspart Per Unit Charge SC 01/18/24 00:59 Not Given Q6 FERNY Lactobacillus Acidophilus 1,250 mg 12/17/23 17:30 12/18/23 07:48 Advanced Probiotic 625 Mg Capsule PO 01/16/24 17:29 1,250 mg DAILY FERNY Administration Levothyroxine Sodium 150 mcg 12/14/23 06:30 12/19/23 05:22 Levothyroxine Sodium 150 Mcg Tablet PO 01/13/24 06:29 Not Given DAILYBB FERNY Magnesium Chloride 128 mg 12/17/23 21:00 12/18/23 20:08 Magnesium Chloride W/Calcium 64mg Delayed Rel Tab PO 01/16/24 20:59 128 mg BID FERNY Administration Miscellaneous 1 each 12/18/23 00:00 12/19/23 07:35 Wellchol-Order Awaiting Action N/A 01/17/24 00:00 Not Given QS FERNY Nystatin 5 ml 12/13/23 21:00 12/18/23 20:09 Nystatin Susp 500,000 U/5 Ml Udc PO 12/23/23 20:59 5 ml QID FERNY Administration Ondansetron HCl 4 mg 12/13/23 19:37 12/14/23 22:31 Ondansetron Inj 2 Mg/Ml 2 Ml Vial IV 01/12/24 19:36 4 mg Q6H PRN Administration Nausea Pantoprazole Sodium 40 mg 12/13/23 21:00 12/19/23 09:54 Pantoprazole 40 Mg Tab PO 01/12/24 20:59 40 mg BID FERNY Administration Psyllium Hydrophilic Mucilloid 4 gm 12/14/23 09:00 12/18/23 07:48 Psyllium Or Guar Gum Fiber 4gm Packet PO 01/13/24 08:59 4 gm QAM FERNY Administration Tamsulosin HCl 0.4 mg 12/14/23 09:00 12/18/23 07:48 Tamsulosin Hcl 0.4 Mg Cap PO 01/13/24 08:59 0.4 mg DAILY FERNY Administration Vitamin D 50 mcg 12/14/23 09:00 12/18/23 07:48 Cholecalciferol 25 Mcg (1000 Units) Tab PO 01/13/24 08:59 50 mcg DAILY FERNY Administration NPO Date Last Intake of Fluids: 12/19/23 Time Last Intake of Fluids: 08:00 Last Intake of Fluids Comment: sips with medications Date Last Intake of Solids: 12/18/23 Time Last Intake of Solids: 20:00 Past Medical History Medical History 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 Muscle spasm severe History of COVID-19 03/2022- mild symptoms Lumbar disc herniation with radiculopathy Exercise / Class Metabolic Activity II 4-5 Yardwork/Stairs/Walk up hill Past Family History Family History Mother Sclerosing cholangitis Father Alcohol use disorder Past Surgical History Surgical History Hx of bilateral cataract extraction History of lumbar spinal fusion 01/21/2023 [facility] L2-L4 decompression/fusion (09/14/21): Grade view 1, Garcia#2, ETT 7.0 at [facility] Nausea and vomiting after administration of anesthetic agent states scopolamine patch worked very well after last procedure Hx of dilation and curettage Hx of arthroscopy of left knee meniscus injury Hx of cholecystectomy Hx of tonsillectomy History of x2 History of total knee replacement Left 2012, Right 2006 Past Anesthesia History No Hx of Anesthesia Complications and No Family Hx of Anesthesia Complications History of PONV No Hx of PONV and No Hx of Motion Sickness Social History Smoking Status: Never smoker Do You Dip or Chew Tobacco: No Hx Alcohol Use: No Hx Substance Use: No substance use type: does not use Physical Exam Vital Signs Last Vital Signs Temp 36.5 C 12/19/23 12:34 Pulse 91 H 12/19/23 12:34 Resp 16 12/19/23 12:34 BP 122/59 L 12/19/23 12:34 Pulse Ox 95 12/19/23 12:34 O2 Del Method Room Air 12/19/23 12:34 Constitutional no acute distress ENMT Mouth: + dentition abnormality and + dentures (upper full/ lower partial dentures) Thyromental Distance: > or= 3.5 Finger Breadths Mallampati Class: III Neck normal visual inspection Respiratory normal respiratory effort; no respiratory distress Auscultation: lungs clear to auscultation bilaterally Cardiovascular Rate/Rhythm: regular rate and regular rhythm Heart Sounds: no murmur Musculoskeletal Spine: normal cervical ROM Psychiatric Orientation: alert and oriented x 3 Testing Laboratory Results 12/19/23 05:59 12/19/23 05:59 PT 14.4 Seconds (9.0-12.0) H 12/13/23 12:42 INR 1.4 (0.9-1.1) H 12/13/23 12:42 Urine Color Dark Yellow 12/13/23 16:14 Urine Appearance Turbid (Clear) A 12/13/23 16:14 Urine pH 5.5 (4.5-7.5) 12/13/23 16:14 Ur Specific Paradox 1.036 (1.000-1.030) H 12/13/23 16:14 Urine Protein 2+ (Negative) H 12/13/23 16:14 Urine Glucose (UA) Negative (Negative) 12/13/23 16:14 Urine Ketones 1+ (Negative) H 12/13/23 16:14 Urine Nitrite Positive (Negative) A 12/13/23 16:14 Ur Leukocyte Esterase 2+ (Negative) H 12/13/23 16:14 Urine WBC (Auto) >50 /hpf (0-5) H 12/13/23 16:14 Urine RBC (Auto) >20 /hpf (0-2) H 12/13/23 16:14 U Hyaline Cast (Auto) 3-5 /lpf (0-2) H 12/13/23 16:14 U Epithel Cells (Auto) 3-5 /hpf (0-2) H 12/13/23 16:14 Urine Bacteria (Auto) 4+ (None Seen) H 12/13/23 16:14 12/13/23 18:20 Aerobic Blood Culture - Final Blood No growth in Aerobic bottle after 5 days. Anaerobic Blood Culture - Final No growth in Anaerobic bottle after 5 days. 12/13/23 18:20 Aerobic Blood Culture - Final Blood No growth in Aerobic bottle after 5 days. Anaerobic Blood Culture - Final No growth in Anaerobic bottle after 5 days. 12/13/23 16:14 Urine Culture - Final Urine,Clean Catch Escherichia coli 12/19/23 12/19/23 12/19/23 11:57 08:10 05:39 POC Glucose 79 74 76 Day of Procedure Evaluation. Date of Surgery December 19, 2023 Height/Weight Height: 5 ft 5 in Weight: 87.7 kg Vital Signs Last Vital Signs Temp 36.5 C 12/19/23 12:34 Pulse 91 H 12/19/23 12:34 Resp 16 12/19/23 12:34 BP 122/59 L 12/19/23 12:34 Pulse Ox 95 12/19/23 12:34 O2 Del Method Room Air 12/19/23 12:34 Allergies Allergy/AdvReac Type Severity Reaction Status Date / Time Sulfa (Sulfonamide Allergy Intermediate Rash Verified 12/19/23 12:32 Antibiotics) tramadol Allergy Mild Verified 12/19/23 12:32 baclofen Allergy Verified 12/19/23 12:32 gabapentin AdvReac Severe Nightmare Verified 12/19/23 12:32 Medications Home Medications Medication Instructions Recorded Confirmed Last Taken pioglitazone 15 mg tablet 15 mg PO QAM 09/11/21 12/13/23 09/24/23 cholecalciferol (vitamin D3) 50 50 mcg PO DAILY 09/22/23 12/13/23 09/24/23 mcg (2,000 unit) tablet (Vitamin D3) colchicine 0.6 mg tablet (Colcrys) 0.6 mg PO BID PRN Gout Flare 09/22/23 12/13/23 Unknown levothyroxine 200 mcg tablet 200 mcg PO QAM 09/22/23 12/13/23 09/24/23 ondansetron 4 mg disintegrating 4 mg translingual Q6 PRN 09/24/23 12/13/23 Unknown tablet NAUSEA/VOMITING docusate sodium 100 mg capsule 100 mg PO BID PRN Constipation 10/09/23 12/13/23 Unknown lorazepam 0.5 mg tablet 0.5 mg PO Q8H PRN Nausea 12/13/23 12/13/23 Unknown olanzapine 2.5 mg tablet 2.5 mg PO HS 12/13/23 12/13/23 Unknown pantoprazole 40 mg tablet,delayed 40 mg PO BID 12/13/23 12/13/23 Unknown release tamsulosin 0.4 mg capsule 0.4 mg PO DAILY 12/13/23 12/13/23 Unknown colesevelam 625 mg tablet 1,250 mg PO BID 12/17/23 12/17/23 Unknown Active Medications Generic Name Dose Route Start Last Admin Trade Name Freq PRN Reason Stop Dose Admin Acetaminophen 650 mg 12/13/23 19:37 12/18/23 20:07 Acetaminophen 325 Mg Tab PO 01/12/24 19:36 650 mg Q4H PRN Administration Pain or Fever Amoxicillin 875 mg 12/16/23 21:00 12/19/23 09:54 Amoxicillin 875 Mg Tab PO 12/26/23 20:59 875 mg BID FERNY Administration Protocol Heparin Sodium (Porcine) 5,000 units 12/13/23 21:00 12/19/23 09:54 Heparin Sod 5,000 Unit/0.5 Ml Vial SQ 01/12/24 20:59 Not Given Q12 [facility] Promethazine HCl 6.25 mg in 50.25 mls @ 201 mls/hr 12/13/23 19:37 12/19/23 05:34 Phenergan IV 01/12/24 19:36 Infused Q6H PRN Infusion Nausea And Vomiting Insulin Aspart 0 units 12/19/23 01:00 12/19/23 05:40 Insulin Aspart Per Unit Charge SC 01/18/24 00:59 Not Given Q6 FERNY Lactobacillus Acidophilus 1,250 mg 12/17/23 17:30 12/18/23 07:48 Advanced Probiotic 625 Mg Capsule PO 01/16/24 17:29 1,250 mg DAILY FERNY Administration Levothyroxine Sodium 150 mcg 12/14/23 06:30 12/19/23 05:22 Levothyroxine Sodium 150 Mcg Tablet PO 01/13/24 06:29 Not Given DAILYBB FERNY Magnesium Chloride 128 mg 12/17/23 21:00 12/18/23 20:08 Magnesium Chloride W/Calcium 64mg Delayed Rel Tab PO 01/16/24 20:59 128 mg BID FERNY Administration Miscellaneous 1 each 12/18/23 00:00 12/19/23 07:35 Wellchol-Order Awaiting Action N/A 01/17/24 00:00 Not Given QS FERNY Nystatin 5 ml 12/13/23 21:00 12/18/23 20:09 Nystatin Susp 500,000 U/5 Ml Udc PO 12/23/23 20:59 5 ml QID FERNY Administration Ondansetron HCl 4 mg 12/13/23 19:37 12/14/23 22:31 Ondansetron Inj 2 Mg/Ml 2 Ml Vial IV 01/12/24 19:36 4 mg Q6H PRN Administration Nausea Pantoprazole Sodium 40 mg 12/13/23 21:00 12/19/23 09:54 Pantoprazole 40 Mg Tab PO 01/12/24 20:59 40 mg BID FERNY Administration Psyllium Hydrophilic Mucilloid 4 gm 12/14/23 09:00 12/18/23 07:48 Psyllium Or Guar Gum Fiber 4gm Packet PO 01/13/24 08:59 4 gm QAM FERNY Administration Tamsulosin HCl 0.4 mg 12/14/23 09:00 12/18/23 07:48 Tamsulosin Hcl 0.4 Mg Cap PO 01/13/24 08:59 0.4 mg DAILY FERNY Administration Vitamin D 50 mcg 12/14/23 09:00 12/18/23 07:48 Cholecalciferol 25 Mcg (1000 Units) Tab PO 01/13/24 08:59 50 mcg DAILY FERNY Administration Past Anesthesia History No Hx of Anesthesia Complications and No Family Hx of Anesthesia Complications History of PONV No Hx of PONV and No Hx of Motion Sickness NPO Date Last Intake of Fluids: 12/19/23 Time Last Intake of Fluids: 08:00 Last Intake of Fluids Comment: sips with medications Date Last Intake of Solids: 12/18/23 Time Last Intake of Solids: 20:00 HCG & FBG Results 12/19/23 12/19/23 12/19/23 11:57 08:10 05:39 POC Glucose 79 74 76 Home Medications Home Medications Medication Instructions Recorded Confirmed Last Taken pioglitazone 15 mg tablet 15 mg PO QAM 09/11/21 12/13/23 09/24/23 cholecalciferol (vitamin D3) 50 50 mcg PO DAILY 09/22/23 12/13/23 09/24/23 mcg (2,000 unit) tablet (Vitamin D3) colchicine 0.6 mg tablet (Colcrys) 0.6 mg PO BID PRN Gout Flare 09/22/23 12/13/23 Unknown levothyroxine 200 mcg tablet 200 mcg PO QAM 09/22/23 12/13/23 09/24/23 ondansetron 4 mg disintegrating 4 mg translingual Q6 PRN 09/24/23 12/13/23 Unknown tablet NAUSEA/VOMITING docusate sodium 100 mg capsule 100 mg PO BID PRN Constipation 10/09/23 12/13/23 Unknown lorazepam 0.5 mg tablet 0.5 mg PO Q8H PRN Nausea 12/13/23 12/13/23 Unknown olanzapine 2.5 mg tablet 2.5 mg PO HS 12/13/23 12/13/23 Unknown pantoprazole 40 mg tablet,delayed 40 mg PO BID 12/13/23 12/13/23 Unknown release tamsulosin 0.4 mg capsule 0.4 mg PO DAILY 12/13/23 12/13/23 Unknown colesevelam 625 mg tablet 1,250 mg PO BID 12/17/23 12/17/23 Unknown Active Medications Generic Name Dose Route Start Last Admin Trade Name Freq PRN Reason Stop Dose Admin Acetaminophen 650 mg 12/13/23 19:37 12/18/23 20:07 Acetaminophen 325 Mg Tab PO 01/12/24 19:36 650 mg Q4H PRN Administration Pain or Fever Amoxicillin 875 mg 12/16/23 21:00 12/19/23 09:54 Amoxicillin 875 Mg Tab PO 12/26/23 20:59 875 mg BID FERNY Administration Protocol Heparin Sodium (Porcine) 5,000 units 12/13/23 21:00 12/19/23 09:54 Heparin Sod 5,000 Unit/0.5 Ml Vial SQ 01/12/24 20:59 Not Given Q12 FERNY Promethazine HCl 6.25 mg in 50.25 mls @ 201 mls/hr 12/13/23 19:37 12/19/23 05:34 Phenergan IV 01/12/24 19:36 Infused Q6H PRN Infusion Nausea And Vomiting Insulin Aspart 0 units 12/19/23 01:00 12/19/23 05:40 Insulin Aspart Per Unit Charge SC 01/18/24 00:59 Not Given Q6 FERNY Lactobacillus Acidophilus 1,250 mg 12/17/23 17:30 12/18/23 07:48 Advanced Probiotic 625 Mg Capsule PO 01/16/24 17:29 1,250 mg DAILY FERNY Administration Levothyroxine Sodium 150 mcg 12/14/23 06:30 12/19/23 05:22 Levothyroxine Sodium 150 Mcg Tablet PO 01/13/24 06:29 Not Given DAILYBB FERNY Magnesium Chloride 128 mg 12/17/23 21:00 12/18/23 20:08 Magnesium Chloride W/Calcium 64mg Delayed Rel Tab PO 01/16/24 20:59 128 mg BID FERNY Administration Miscellaneous 1 each 12/18/23 00:00 12/19/23 07:35 Wellchol-Order Awaiting Action N/A 01/17/24 00:00 Not Given QS FERNY Nystatin 5 ml 12/13/23 21:00 12/18/23 20:09 Nystatin Susp 500,000 U/5 Ml Udc PO 12/23/23 20:59 5 ml QID FERNY Administration Ondansetron HCl 4 mg 12/13/23 19:37 12/14/23 22:31 Ondansetron Inj 2 Mg/Ml 2 Ml Vial IV 01/12/24 19:36 4 mg Q6H PRN Administration Nausea Pantoprazole Sodium 40 mg 12/13/23 21:00 12/19/23 09:54 Pantoprazole 40 Mg Tab PO 01/12/24 20:59 40 mg BID FERNY Administration Psyllium Hydrophilic Mucilloid 4 gm 12/14/23 09:00 12/18/23 07:48 Psyllium Or Guar Gum Fiber 4gm Packet PO 01/13/24 08:59 4 gm QAM FERNY Administration Tamsulosin HCl 0.4 mg 12/14/23 09:00 12/18/23 07:48 Tamsulosin Hcl 0.4 Mg Cap PO 01/13/24 08:59 0.4 mg DAILY FERNY Administration Vitamin D 50 mcg 12/14/23 09:00 12/18/23 07:48 Cholecalciferol 25 Mcg (1000 Units) Tab PO 01/13/24 08:59 50 mcg DAILY FERNY Administration Exercise / Class Metabolic Activity Metabolic Activity: II 4-5 Yardwork/Stairs/Walk up hill Physical Exam Constitutional: no acute distress Mouth: + dentition abnormality and + dentures (upper full/ lower partial dentures) Thyromental Distance: > or= 3.5 Finger Breadths Mallampati Class: III Neck: + visual inspection normal Respiratory: + respiratory effort normal and + clear to auscultation bilaterally; no respiratory distress Cardiovascular: + regular rate and + regular rhythm; no murmur Musculoskeletal: no limited cervical ROM Psychiatric: + alert and + oriented x 3 Additional Comments: Labs and studies reviewed. Patient with persistent nausea with failure to thrive. ASA ASA3 Proposed Anesthesia Proposed Anesthesia: MAC Risk / Benefits Reviewed With: PT / POA / Parent / Guardian, Accepts Plan and Informed Consent Obtained
--- NOTE | 2023-12-19 13:30 | GI REPORT ---
[facility] [address] Patient: KIA MAC : 1950 Sex at : Female Age: 73 Years Procedure: Upper GI endoscopy Date: 12/19/2023 Attending Physician: Paul Whitehead MD Referring MD: Gina Talavera MD Indications: - Nausea Medications: - Monitored Anesthesia Care Complications: - No immediate complications. Procedure: - Prior to the procedure, a History and Physical was performed, and patient medications and allergies were reviewed. The patient's tolerance of previous anesthesia was also reviewed. The risks and benefits of the procedure and the sedation options and risks were discussed with the patient. All questions were answered, and informed consent was obtained. [Anticoagulant Agents] [Days Prior to Procedure]. [ASA Grade]. After reviewing the risks and benefits, the patient was deemed in satisfactory condition to undergo the procedure. - The egd scope was introduced through the mouth and advanced to the second part of the duodenum. - The upper GI endoscopy was accomplished without difficulty. - The patient tolerated the procedure well. Findings: - The examined esophagus was normal. - Diffuse moderate inflammation characterized by erythema was found in the entire examined stomach. Multiple biopsies were obtained in the gastric antrum and in the gastric body with cold forceps for histology. - The examined duodenum was normal. Impression: - Normal esophagus. - Gastritis, characterized by erythema. - Multiple biopsies were obtained in the gastric antrum and in the gastric body. - Normal examined duodenum. Recommendation: - Resume previous diet. - Patient has a contact number available for emergencies. The signs and symptoms of potential delayed complications were discussed with the patient. Return to normal activities tomorrow. Written discharge instructions were provided to the patient. Procedure Code(s): - 83946, Esophagogastroduodenoscopy, flexible, transoral; with biopsy, single or multiple Diagnosis Code(s): - K29.70, Gastritis, unspecified, without bleeding CPT(R) - 2023 copyright [employer]. All Rights Reserved. The CPT codes, CCI edits and ICD codes generated are intended as suggestions and were generated based on input data. These codes are preliminary and upon auditing coder review may be revised to meet current compliance and payer requirements. The provider is responsible for the final determination of appropriate codes, and modifiers. Paul Whitehead MD This document has been electronically signed. Note Initiated:12/19/2023 Note Completed:12/19/2023 1:29 PM [email or web address]\Results\[email or web address]\[id number]
--- NOTE | 2023-12-19 14:25 | Anesthesiology Progress Note ---
Date of Service December 19, 2023 Anesthesia Post Procedure Vital Signs Vital Signs: Temp Pulse Pulse Resp BP Pulse Ox O2 Del Method 12/19/23 14:15 36.7 C 90 18 105/69 96 Room Air 12/19/23 13:56 94 H 18 111/56 L 97 Room Air 12/19/23 13:41 92 H 18 112/58 L 97 Room Air 12/19/23 13:26 95 H 12 91/52 L 97 Room Air 12/19/23 12:34 36.5 C 91 H 16 122/59 L 95 Room Air 12/19/23 11:27 36.8 C 88 20 97/61 L 95 Room Air 12/19/23 08:20 Room Air 12/19/23 07:53 36.6 C 86 20 113/68 97 Room Air 12/19/23 07:26 82 12/19/23 04:42 36.3 C L 80 20 120/73 93 Room Air 12/18/23 23:44 36.7 C 76 20 115/68 93 Room Air 12/18/23 21:52 76 12/18/23 20:20 36.6 C 79 20 98/60 L 95 Room Air 12/18/23 16:07 36.6 C 80 16 96/58 L 93 Room Air Pain Intensity Abdomen: Pain Intensity: 2 Back: Pain Intensity: 2 Transfer of Care Handoff Completed per policy Notes Mental Status: alert / awake / arousable and participated in evaluation Nausea / Vomiting: adequately controlled Pain: adequately controlled Airway Patency, RR, SpO2: stable & adequate BP & HR: stable & adequate Hydration State: stable & adequate Anesthetic Complications: no major complications apparent and Pt Satisfied with anesthetic care
[2023-12-19] MEDS: LIDOCAINE 2% 2 ML VIAL/AMP(20MG/ML) INFIL ONE (14:51)
[2023-12-19] MEDS: PROPOFOL IV EMULSION 10 MG/ML 20 ML VIAL IV ONE (14:51)
[2023-12-19] MEDS: COLESTIPOL HCL 1 GM TAB PO SCH (20:57)
[2023-12-20 06:28] LABS: Hematocrit (blood only) 33.1 % (37.0-47.0); Hemoglobin 10.7 g/dl (12.0-16.0); Mean Corpuscular Hemoglobin 28.5 pg (25.0-34.0); Mean Corpuscular Hgb Conc 32.3 g/dL (32.0-36.0); Mean Corpuscular Volume 88.3 fL (80.0-100.0); Mean Platelet Volume 11.6 fL (9.4-12.4); Platelet Count 242 K/uL (130-400); RDW Coefficient of Variation 15.8 % (11.5-14.5); RDW Standard Deviation 51.3 fL (36.4-46.3); Red Blood Count 3.75 M/uL (4.20-5.40); White Blood Count 4.13 K/ul (4.8-10.8)
[2023-12-20 07:00] LABS: BUN Creatinine Ratio 6.1 (10-20); Creatinine Clr Calc Pharmacy 168.1 ml/min; Magnesium 1.7 mg/dl (1.7-2.4); Phosphorus 3.5 mg/dl (2.5-4.9); Potassium 3.2 mmol/L (3.5-5.1)
[2023-12-20] MEDS: POTASSIUM CHLORIDE / WTR 10 MEQ/100 ML PLCT IV SCH (08:18)
--- NOTE | 2023-12-20 10:48 | Gastroenterology Progress Note ---
Date of Service December 20, 2023 Assessment & Plan (1) Nausea: Plan: -Protonix 40 mg daily on discharge -OK to continue scheduled antiemetics supportively -Obtain outpatient GES for further evaluation; Discussed this plan of care with patient, patient's , & hospitalist. Admission and Anticipated Discharge Date Admission Date: December 13, 2023 Supervising Physician Co-Signing Physician Notes I saw and examined this patient with our nurse practitioner and agree with her assessment and plan. Clinically improving on Phenergan for nausea. Agree with present management. Plan for outpatient gastric emptying study to exclude gastroparesis as cause for her nausea. Will follow-up as an outpatient in GI office. Subjective Patient is a 73 yo female with ongoing nausea. She had an EGD on 12/18 with gastritis but no other concerning findings. Patient's nausea responds to Phenergan. No further symptom changes. She has had loose stools with negative C diff testing and it has been felt to be related to antibiotics. She responds to Welchol at home. Review of Systems Gastrointestinal: + nausea; no abdominal pain Physical Exam Constitutional: well developed Respiratory: normal respiratory effort Psychiatric: Orientation: alert and oriented x 3 Results & Data Results & Data Vital Signs (Past 12 Hours) Vital Signs Temp Pulse Pulse Resp BP Pulse Ox O2 Del Method 12/20/23 08:12 36.5 C 80 18 112/67 94 Room Air 12/20/23 07:30 Room Air 12/20/23 07:18 79 12/20/23 02:11 36.6 C 76 18 105/64 96 Room Air 12/20/23 00:27 Room Air PG Care Time/CCT Total # of Minutes Spent Total Time Spent with Patient: Total time spent is greater than 50% in coordination of care (as documented) at patient's floor/unit and/or counseling patient: Coding Level of Care Code 05701 SUB INP/OBS CARE 2/35MIN Diagnoses Nausea R11.0
[2023-12-20] MEDS: PROMETHAZINE HCL 12.5 MG/10 ML UDP PO SCH (12:40)
--- NOTE | 2023-12-20 13:34 | Hospitalist Progress Note ---
Date of Service December 20, 2023 Assessment & Plan (1) UTI (urinary tract infection): (2) Oral candidiasis: Plan 73 year old female with PMHx significant for DM II, HTN, HLD, back pain with multiple lumbar spine procedures, ongoing nausea and others listed below presented to ER with c/o progressive generalized weakness, poor oral intake and continued nausea. Generalized weakness Failure to thrive in adult No leukocytosis, No VALDEZ CT head: no acute intracranial abnormality CXR: no infiltrate noted UA suggestive of possible infection Urine culture grew E coli Blood cultures negative CT lumbar spine with question of possible infection with noted edema Orthospine and noted no infection Fall precautions PT/OT eval noted Skelp Processor eval noted Continue to encourage oral intake/dietary supplementation Nausea Diarrhea Poor appetite Ongoing nausea and poor oral intake x 3 months. Has loose BMs daily since discontinuing narcotics without melena or hematochezia CT abdomen pelvis with no acute pathology Stool culture was negative with negative C. difficile Continue PPI Antiemetics as needed Was on Welchol in the past per patient GI eval noted EGD on 12/19/23 noted normal esophagus, gastritis with erythema, normal du odenum. Biopsies taken Discussed with GI. Advised to schedule antiemetic and for patient to resume her colesevelam on dc. Getting colestipol now inpt GI plan to do further eval/test outpatient such as manometry Continue PPI Hypokalemia Hypomagnesemia Encourage potassium rich diet K is 3.2 today. Getting IV potassium Complicated UTI Patient had a chronic indwelling urinary catheter on presentation Recent history of urinary retention requiring Grayson catheter Grayson changed in ER on admission UA suggestive of infection Urine culture grew pansensitive E coli Was on IV Rocephin now deescalated to amoxicillin x 10 days of treatment Continue Flomax Urology eval noted. Patient had voiding trial on 12/17/23 and has been voiding since. Monitor Abnormal TSH Hypothyroidism TSH: 0.028, Free T4: 2.7 Home levothyroxine was reduced from 200mcg to 150mcg daily Will need repeat TSH in 6-8 weeks from change PCP follow up History of back pain: History of compression fracture of spine: History of spinal surgery: R/O Discitis Hx of multiple lumbosacral spine surgery S/P R SI joint revision, on 09/25/[address] Herr S/P kyphoplasty L1 L2 on 11/04/[address] Herr H/O SI joint fusion in past MRI lumbar spine with concern for infection based on edema previously noted on previous MRIs Was on Butrans patch but secondary to cost pt chose to discontinue and use oxycodone. Off oxycodone Pain controlled with tylenol prn Oral candidiasis Denied sore throat or dysphagia Nystatin swish Abnormal EKG EKG sinus rhythm, nonspecific T wave changes in inferior and anterior leads that appear new from EKG 09/22/23 per my interpretation Denied CP or SOB Troponin negative x 2 09/25/23 Echo: EF: 60%, grade I diastolic dysfunction Repeat Echo with EF of 60 to 65%, Normal right ventricular function, no significant valvular disease Continue to monitor on telemetry T2DM (type 2 diabetes mellitus): A1c: 6.5 on 11/01/23 Hold home oral agents Novolog sliding scale per protocol with correction coverage for now. If patient starts increasing oral intake will plan on carb coverage also HTN (hypertension) HCTZ had been discontinued during recent rehab secondary to low BP's In ER BP's stable Monitor BP Diet: DMII DVT Prophylaxis: Heparin SQ CODE STATUS: DNR/DNI as per discussion with pt Plan to dc to rehab tomorrow I spent a total of 40 minutes coordinating, documenting and providing care for this patient excluding time spent in performance of separately billed services Admission and Anticipated Discharge Date Admission Date: December 13, 2023 Subjective Patient seen and examined Reports nausea and weakness No vomiting today Reported one episode of loose stool Physical Exam Constitutional: + well hydrated; no acute distress Eyes: PERRL, conjunctivae normal, anicteric sclerae ENMT: external ear and nose normal, oropharynx normal Respiratory: normal respiratory effort, lungs clear to auscultation Cardiovascular: Rate/Rhythm: regular rate and regular rhythm Gastrointestinal (Abdomen): normal bowel sounds, soft, nontender, no hepatosplenomegaly Musculoskeletal: No pedal edema Neurologic: PERRL, EOMI, accommodation nl, no face palsy, no dysarthria Psychiatric: A+Ox3, euthymic affect Results & Data Results & Data Vital Signs (Past 12 Hours) Vital Signs Temp Pulse Pulse Resp BP Pulse Ox O2 Del Method 12/20/23 08:12 36.5 C 80 18 112/67 94 Room Air 12/20/23 07:30 Room Air 12/20/23 07:18 79 10/25/24 02:11 36.6 C 76 18 105/64 96 Room Air Laboratory Results Abnormal lab results 12/20/23 Range/Units 06:02 WBC 4.13 L (4.8-10.8) K/ul RBC 3.75 L (4.20-5.40) M/uL Hgb 10.7 L (12.0-16.0) g/dl Hct 33.1 L (37.0-47.0) % RDW Std Deviation 51.3 H (36.4-46.3) fL RDW Coeff of Carine 15.8 H (11.5-14.5) % Potassium 3.2 L (3.5-5.1) mmol/L BUN 2 L (6-23) mg/dl Creatinine 0.33 L (0.6-1.2) mg/dl BUN/Creatinine Ratio 6.1 L (10-20) Calcium 8.0 L (8.6-10.3) mg/dl
[2023-12-20] MEDS: PROMETHAZINE HCL 25 MG TAB PO SCH (17:29)
[2023-12-20 23:59] VITALS: RESP 18
[2023-12-21 06:55] LABS: Hematocrit (blood only) 33.6 % (37.0-47.0); Hemoglobin 11.1 g/dl (12.0-16.0); Mean Corpuscular Hemoglobin 28.5 pg (25.0-34.0); Mean Corpuscular Volume 86.4 fL (80.0-100.0); Platelet Count 233 K/uL (130-400); RDW Standard Deviation 57.1 fL (36.4-46.3); Red Blood Count 3.89 M/uL (4.20-5.40); White Blood Count 4.67 K/ul (4.8-10.8)
[2023-12-21 07:11] LABS: BUN Creatinine Ratio 5.3 (10-20); Calcium 8.1 mg/dl (8.6-10.3); Creatinine Clr Calc Pharmacy 145.9 ml/min; Magnesium 1.8 mg/dl (1.7-2.4); Phosphorus 3.5 mg/dl (2.5-4.9); Potassium 3.5 mmol/L (3.5-5.1)
[2023-12-21 07:39] VITALS: BP 123/72; TEMP 97.5; O2SAT 97
[2023-12-21] MEDS: POTASSIUM CHLORIDE / WTR 10 MEQ/100 ML PLCT IV SCH (09:05)
[2023-12-21 14:31] VITALS: PULSE 83
--- NOTE | 2023-12-21 15:03 | Discharge Summary ---
Date of Service December 21, 2023 Admission HPI Per Admitting Provider Patient is 73 year old female with PMH DM II, HTN, HLD, back pain with multiple lumbar spine procedures, ongoing nausea and others listed below presented to ER with c/o progressive generalized weakness, poor oral intake and continued nausea. History obtained from patient and inpatient and outpatient chart review. Patient with multiple spine procedures over past several months for intractable back pain, compression fractures by Dr Herr with recent hospital admission 11/01/23-11/13/23 for intractable back pain and s/p kyphoplasty L1, L2 11/04/23. Was discharged to rehab. It is reported during rehab noted to have low BPs so HCTZ was discontinued. She has been having issues with urinary retention, was discharged with Grayson catheter, has been having some issues with infections, has gone through a couple voiding trials and has not done well, Grayson has been in place since. States Grayson last changed approximately 2 weeks ago. She thinks took Cipro for 7 days and last dose approximately one week ago as reports it was discontinued as urine culture did not show bacteria. Patient currently on Flomax. Patient reports her back pain is much improved. She has stopped taking oxycodone. Last dose 3 days ago. She is taking Tylenol 2-3 times a day with control of back pain. Denies any acute worsening of back pain and overall feels has improved since her last admission and last spinal procedure. Since stopping the oxycodone the past 3 days has had 2 loose BMs daily. Denies any noted melena or hematuria. Denies abdominal pain. Since being at home patient reports continued nausea and decreased oral intake. Feels might be eating approximately 500 calories a day. Been tried on various antinausea medications outpatient without much relief. She currently is taking olanzapine HS for nausea and feels that has been the most helpful but still with symptoms. Per inpatient chart review she was seen by GI during last admission and was felt nausea was likely multifactorial given prolonged hospitalization, multiple recent surgeries, limited mobility & ongoing narcotic use and was recommended Miralax daily for a good bowel regimen, continue Protonix 40 mg BID and using prn antiemetics. Since her bowels have started moving past 3 days she is not using laxatives or stool softeners but has continued Protonix. She feels has had progressive generalized weakness which has worsened since returning home from rehab which she relates to poor oral intake. States has attempted protein shakes however cannot tolerate the chalky milky consistency. was receiving home PT but is having difficulty even sitting up from bed because feeling so weak and she hasn't been able to participate in PT. She has noticed white patches to her tongue past few days but denies any oral pain or pain or difficulty swallowing. Denies fever/chills, diaphoresis, hematemesis, melena, hematochezia, MORALES, dizziness, syncope, vision changes, neck pain, CP, SOB, orthopnea, palpitations, cough, sore throat, choking, otalgia, rhinorrhea, abdominal pain, paresthesias, extremity edema, rashes, hematuria. Admission Exam Per Admitting Provider General: no acute distress, WDWN Head: normocephalic, atraumatic Eyes: conjunctiva non-injected, anicteric ENT: normal inspection external ears, nose, mucous membranes mildly dry, +white plaque on tongue Neck: supple, trachea midline Lungs: clear, no respiratory distress, no wheezing/rhonchi/rales CV: RRR, no pretibial edema Abd: normal BS, soft, non-tender Back: no discoloration, no erythema noted on surgical incision site, non-tender to palpation Ext: no cyanosis, no calf tenderness Neuro: A&O x 3, +diffuse weakness, otherwise no focal deficits noted, normal affect Skin: warm, dry Principal Diagnosis Intractable nausea Failure to thrive Hypokalemia Hypomagnesemia Urinary Tract Infection Discharge Exam Constitutional + well hydrated; no acute distress Eyes PERRL, conjunctivae normal, anicteric sclerae ENMT external ear and nose normal, oropharynx normal Respiratory normal respiratory effort, lungs clear to auscultation Cardiovascular Rate/Rhythm: regular rate and regular rhythm Gastrointestinal (Abdomen) normal bowel sounds, soft, nontender, no hepatosplenomegaly Musculoskeletal No pedal edema Neurologic PERRL, EOMI, accommodation nl, no face palsy, no dysarthria Psychiatric A+Ox3, euthymic affect Discharge Data Allergies Allergy/AdvReac Type Severity Reaction Status Date / Time Sulfa (Sulfonamide Allergy Intermediate Rash Verified 12/19/23 12:32 Antibiotics) tramadol Allergy Mild Verified 12/19/23 12:32 baclofen Allergy Verified 12/19/23 12:32 gabapentin AdvReac Severe Nightmare Verified 12/19/23 12:32 Consultations 12/14/23 15:11 Consult Orthopedic Spine Surgery Routine 12/14/23 17:31 Consult Infectious Diseases Routine 12/17/23 13:49 Consult Urology Routine 12/18/23 11:06 Consult Gastroenterology Routine Procedures Performed Operation Date: 12/19/23 17:25 Actual Procedures p EGD Biopsy Cytology - Paul Whitehead MD Ordered Studies 12/13/23 13:43 CT head/brain wo con Stat 12/13/23 15:05 MR lumbar spine wo/w con Stat 12/15/23 13:48 CT abd pelvis IV con only Urgent Hospital Course (1) UTI (urinary tract infection): (2) Oral candidiasis: Plan 73 year old female with PMHx significant for DM II, HTN, HLD, back pain with multiple lumbar spine procedures, ongoing nausea and others listed below presented to ER with c/o progressive generalized weakness, poor oral intake and continued nausea. Generalized weakness Failure to thrive in adult No leukocytosis, No VALDEZ CT head: no acute intracranial abnormality CXR: no infiltrate noted UA suggestive of possible infection Urine culture grew E coli Blood cultures negative Nausea Diarrhea Poor appetite Ongoing nausea and poor oral intake x 3 months. Has loose BMs daily since discontinuing narcotics without melena or hematochezia CT abdomen pelvis with no acute pathology Stool culture was negative with negative C. difficile GI evaluated EGD on 12/19/23 noted normal esophagus, gastritis with erythema, normal duodenum. Biopsies taken GI recommends scheduled antiemetic with promethazine GI plan to do further eval/test outpatient such as manometry Continue PPI Hypokalemia Hypomagnesemia Encourage potassium rich diet Repleted and discharged on po K and Mag Complicated UTI Patient had a chronic indwelling urinary catheter on presentation Recent history of urinary retention requiring Grayson catheter Grayson changed in ER on admission UA suggestive of infection Urine culture grew pansensitive E coli Completed antibiotics inpatient Continue Flomax Grayson removed. Patient had voiding trial on 12/17/23 and has been voiding since. Abnormal TSH Hypothyroidism TSH: 0.028, Free T4: 2.7 Home levothyroxine was reduced from 200mcg to 150mcg daily PCP to repeat TSH in 6 weeks History of back pain: History of compression fracture of spine: History of spinal surgery: R/O Discitis Hx of multiple lumbosacral spine surgery S/P R SI joint revision, on 09/25/[address] Herr S/P kyphoplasty L1 L2 on 11/04/[address] Herr H/O SI joint fusion in past MRI lumbar spine with concern for infection based on edema previously noted on previous MRIs CT lumbar spine with question of possible infection with noted edema Orthopedic spine surgeon evaluated and noted no infection Off oxycodone Pain controlled with tylenol prn PT/OT evaluated and rehab recommended Abnormal EKG EKG sinus rhythm, nonspecific T wave changes in inferior and anterior leads that appear new from EKG 09/22/23 per my interpretation Denied CP or SOB Troponin negative x 2 09/25/23 Echo: EF: 60%, grade I diastolic dysfunction Repeat Echo with EF of 60 to 65%, Normal right ventricular function, no significant valvular disease T2DM (type 2 diabetes mellitus): A1c: 6.5 on 11/01/23 Based on blood glucose trend inpatient, home pioglitazone was discontinued especially in setting of poor oral intake HTN (hypertension) HCTZ had been discontinued during recent rehab secondary to low BP's BP has remained stable Home colchicine, ativan and olanzapine discontinued Total Time Total Time Spent Total Time Spent (In Minutes): 40 Total Time Includes: Examination of the Patient, Discharge Planning and Medicati on Reconciliation Discharge Plan Discharge Items Patient Disposition: Transfer Inpatient Rehab Fac Reason For Visit: WEAKNESS Discharge Diagnosis: Intractable nausea Failure to thrive Hypokalemia Hypomagnesemia Urinary Tract Infection Activity: As commented below Activity Comment: Per physical therapist's instructions Non-emergency contact: Primary Care Provider and Principal Law Clerk Call non-emergency contact if: you have any medication questions and your symptoms worsen Follow-up/Referrals: Jadyn Johnson DO [Primary Care Provider] - Diet: Carb Consistent or DM2 Addtl Attending Provider Instructions: Mrs Tafoya You were managed for the above listed diagnoses. You are being discharged to rehab. The following changes were made to your medications: - Pioglitazone was stopped for now due to normal blood glucose level and poor oral intake - Stop colchicine, ativan and olanzapine for now - Your Levothyroxine was reduced to 150mcg daily based on your Thyroid function test. Your Primary Doctor should recheck your thyroid function test in about 6 weeks - You were started on scheduled promethazine for your nausea - You were started on potassium and magnesium. Your Primary Doctor or rehab facility can recheck levels in a week Please ensure follow up with Gastroenterology outpatient for continued workup and treatment. It was a pleasure taking care of you. Pending Studies at Discharge: No Stand-Alone Forms: My [facility] Skilled Items Patient informed of condition?: Yes DNR: Yes Discharge Level of Care: Acute rehab Communicable Disease: No Discharge Prognosis: Stable Lines: None Urinary Catheter: No Medications and DC Order Prescriptions: New levothyroxine [Synthroid] 150 mcg Tablet 150 mcg PO DAILYBB 30 Days Qty: 30 0RF magnesium chloride [Mag 64] 64 mg Tablet,Delayed Release (Dr/Ec) 128 mg PO BID 30 Days Qty: 120 0RF potassium chloride 10 mEq capsule, extended release 10 meq PO DAILY Qty: 30 0RF promethazine 25 mg Tablet 12.5 mg PO Q6H 30 Days Qty: 60 0RF Continued tamsulosin 0.4 mg capsule 0.4 mg PO DAILY Qty: 30 0RF colesevelam 625 mg tablet 1,250 mg PO BID Qty: 120 0RF cholecalciferol (vitamin D3) [Vitamin D3] 50 mcg (2,000 unit) Tablet 50 mcg PO DAILY Qty: 30 0RF ondansetron 4 mg tablet,disintegrating 4 mg translingual Q6 PRN (Reason: NAUSEA/VOMITING) Qty: 20 0RF Changed pantoprazole 40 mg tablet,delayed release (DR/EC) 40 mg PO DAILY Qty: 30 0RF Discontinued pioglitazone 15 mg Tablet 15 mg PO QAM docusate sodium 100 mg Capsule 100 mg PO BID PRN (Reason: Constipation) lorazepam 0.5 mg tablet 0.5 mg PO Q8H PRN (Reason: Nausea) olanzapine 2.5 mg tablet 2.5 mg PO HS levothyroxine 200 mcg tablet 200 mcg PO QAM colchicine [Colcrys] 0.6 mg Tablet 0.6 mg PO BID PRN (Reason: Gout Flare) Discharge Orders: Discharge Order (Routine); Ordered 12/21/23 Ordered By: Gina Talavera Admission Data Admit Date/Time: 12/13/23 16:23 Attending Provider: Gina Talavera I. Admit Provider: Satish Jackman Primary Care Provider: Jadyn Johnson Other Providers: Timothy Herr; Conner Spencer; Meaghan Hurst; Hilton Garcia I.; Ron Morin II; Joanna Conn; Amauri Jay; Cash Benoit; Ariana Linares; [facility]; IRB Approved Study,Anamaria; Tj Reeves; Paul Whitehead I Other Interventions: Discharge Summary Assessment (RN) Last Done: 12/21/23 11:40
--- NOTE | 2023-12-24 13:06 | Coding Query ---
CODING QUERY To promote full compliance with coding requirements relating to patient care, provider participation is requested in all cases of risk modeler uncertainty. Please assist us with the question(s) below: Coding Question(s): Pt admitted with weakness, failure to thrive, E.Coli UTI. Pt admitted with indwelling urethral urinary catheter changed in ED. Please document, if known or suspected, the etiolog of the UTI. Thanks for your help! Soren Caballero [facility] Physician's Response(s): Patient had Urinary tract infection which may be due to indwelling mahoney catheter Principal Diagnosis: "that condition established after study, to be chiefly responsible for occasioning the admission of the patient to the hospital for care." Co-Existing Principal Diagnosis: "when two or more diagnoses equally meet the criteria for principal diagnosis as determined by the circumstances of admission, diagnostic work up, and/or therapy provided, and the Alphabetic Index, Tabular List, or another coding guideline does not provide sequencing direction, any one of the diagnoses may be sequenced first." "When the physician has documented what appears to be a current diagnosis in the body of the record, but has not included the diagnosis in the final diagnostic statement, the physician should be asked whether the diagnosis should be added." (Source Coding [facility] 2 QTR90. p3-4) RACHID
--- NOTE | 2023-12-25 08:29 | Coding Query ---
MALNUTRITION To promote full compliance with coding requirements relating to patient care, physician participation is requested in all cases of training manager uncertainty. Please assist us with the question(s) below: Please place an X within the parenthesis (x). If other, please document: Pt adm with long standing nausea/vomiting poor PO intake for past 11 months. ED admit d/t Failure to thrive. RD consult:: " 24 Kg (22% loss of body weight over past 11 months) Pt with onging nausea poor intake over 3 months." Antiemetic started. If possible, please check the box that provides a more specific diagnosis: ( ) Mild malnutrition ( ) Moderate malnutrition ( x) Severe malnutrition ( ) Protein malnutrition (kwashiorkor) ( ) Severe protein calorie malnutrition ( ) Protein calorie malnutrition, unspecified ( ) Other (please specify): Was this diagnosis present on admission? Please place an X within the parenthesis (x). (x ) Present on admission ( ) Not present on admission ( ) Unable to be clinically determined Thank you THONY Gill [facility]
== END 2023-12-21 14:57 | DRG 698 ==
LOC: ED 12:48 → SUATTDRO 16:23 → 2W 16:23